=== PATIENT | female | born 1970 | race Hispanic/Latino ===

== ENCOUNTER 2019-02-18 10:31 | Inpatient (IN) | payer MEDICARE ==
--- NOTE | 2019-02-18 11:09 | Emergency Department Report ---
HPI - General Chief Complaint: Recheck/Abnormal Lab/Rx Time Seen by Provider: 02/18/19 10:57 - HPI HPI: Room 3 The patient is a 48-year-old female presenting with a chief complaint of needs dialysis. The patient is a resident at [facility] reportedly received dialysis every Friday. The patient was last dialyzed 02/15/2019 was sent to the ED for evaluation. Patient denies complaints stating she came to the emergency department because the shelter sent her here. The patient is frequently falling asleep during the interview. When asked about this the patient states that nothing is making her sleepy she is just tired Location: [See above] Duration: [See above] Quality: [See above] Severity: [See above] Timing: [See above] Context: [See above] Modifying factors: [See above] Associated signs and symptoms: [see above] ED Past Medical Hx - Past Medical History Hx Diabetes: Yes Hx Renal Disease: Yes Additional medical history: anemia, hemaplegia - Surgical History Past Surgical History?: No - Family History Family history: no significant - Social History Smoking Status: Former Smoker (none 7 years) Substance Use Type: None ED Review of Systems ROS: Stated complaint: NEED DIALYSIS Other details as noted in HPI Constitutional: no symptoms reported Eyes: denies: eye pain ENT: denies: throat pain Respiratory: no symptoms reported Cardiovascular: denies: chest pain Endocrine: no symptoms reported Gastrointestinal: denies: abdominal pain Genitourinary: denies: abnormal menses Musculoskeletal: denies: back pain Neurological: denies: headache Physical Exam - Physical Exam Vital Signs: Vital Signs 02/18/19 10:37 Temperature 98.6 F Pulse Rate 86 Respiratory 16 Rate Blood Pressure 123/52 [Left] O2 Sat by Pulse 95 Oximetry Physical Exam: GENERAL: The patient is well-developed well-nourished female lying on stretcher sleeping not appearing to be in acute distress. [] HEENT: Normocephalic. Atraumatic. Extraocular motions are intact. Patient has moist mucous membranes. NECK: Supple. Trachea midline CHEST/LUNGS: Clear to auscultation. There is no respiratory distress noted. HEART/CARDIOVASCULAR: Regular. There is no tachycardia. There is no gallop rub or murmur. ABDOMEN: Abdomen is soft, nontender. Patient has normal bowel sounds. There is no abdominal distention. SKIN: There is no rash. There is no edema. There is no diaphoresis. NEURO: The patient is asleep but awakens to verbal stimuli. Patient frequently falls back asleep during the interview requiring reawakening. The patient is cooperative. The patient has no focal neurologic deficits. The patient has normal speech MUSCULOSKELETAL: There is no evidence of acute injury. ED Course Vital Signs 02/18/19 10:37 Temperature 98.6 F Pulse Rate 86 Respiratory 16 Rate Blood Pressure 123/52 [Left] O2 Sat by Pulse 95 Oximetry - Consultations Consultation #1: 02/18/19 12:45 The patient does not know the name of her associate account manager. The patient's shelter states they see labs from the dialysis center ordered under a Dr. Madrid. I contacted the patient's dialysis center ([phone]) but was directed to voicemail. Subsequently the on-call associate account manager (Dr. Ordaz) was called ED Medical Decision Making - Lab Data Result diagrams: 02/18/19 10:45 02/18/19 10:45 Laboratory Tests 02/18/19 02/18/19 02/18/19 05:27 10:45 10:45 WBC 16.4 H RBC 3.47 L Hgb 8.8 L Hct 28.5 L MCV 82 MCH 25 L MCHC 31 RDW 18.0 H Plt Count 536 H PT 14.0 INR 1.11 APTT 32.4 Sodium 142 Potassium 4.5 Chloride 105.2 Carbon Dioxide 21 L Anion Gap 20 BUN 69 H Creatinine 6.7 H Estimated GFR 7 BUN/Creatinine Ratio 10 Glucose 282 H Calcium 7.9 L Total Bilirubin 0.20 AST 28 ALT 45 Alkaline Phosphatase 766 H NT-Pro-B Natriuret Pep 7983 H Total Protein 7.6 Albumin 3.4 L Albumin/Globulin Ratio 0.8 - Differential Diagnosis hyperkalemia, uremia Critical care attestation.: If time is entered above; I have spent that time in minutes in the direct care of this critically ill patient, excluding procedure time. ED Disposition Clinical Impression: End-stage renal disease needing dialysis Disposition: OP ADMIT IP TO THIS HOSP Is pt being admited?: Yes Does the pt Need Aspirin: No Condition: Fair Time of Disposition: 12:47 (hospitalist paged (Dr Anton))
[2019-02-18 11:27] LABS: Hematocrit 28.5 % (30.3-42.9); Hemoglobin 8.8 gm/dl (10.1-14.3); Mean Corpuscular HGB Conc 31 % (30-34); Mean Corpuscular Volume 82 fl (79-97); Platelet Count 536 K/mm3 (140-440); Red Blood Count 3.47 M/mm3 (3.65-5.03)
[2019-02-18 12:12] LABS: INR 1.11 (0.87-1.13); Partial Thromboplastin Time 32.4 Sec. (24.2-36.6)
[2019-02-18 12:22] LABS: Albumin 3.4 g/dL (3.9-5); Calcium 7.9 mg/dL (8.4-10.2)
--- NOTE | 2019-02-18 14:48 | Consultation ---
History of Present Illness - Reason for Consult Consult date: 02/18/19 end stage renal disease - History of Present Illness This is a 48 year female who resides at [facility] who presented to the E.R for dialysis. Patient has ESRD and is on hemodialysis at [facility] under Dr. Madrid. Patient was last dialyzed on Friday. Patient seen in dialysis unit and states she does not know why she is here. Patient has history of Hypertension and Diabetes Mellitus and possible PVD, she is a bilateral amputee. We are being consulted for management of this patient's ESRD. Past History Past Medical History: anemia, diabetes, hypertension Past Surgical History: Other (Bilateral BKA, Perm-catheter placement) Social history: no significant social history Family history: no significant family history Medications and Allergies Allergies Allergy/AdvReac Type Severity Reaction Status Date / Time latex Allergy Rash Verified 02/18/19 13:20 Review of Systems Constitutional: fatigue, no weight loss, no weight gain, no fever, no chills, no sweats, no malaise, no lethargy, no chronic headaches, no poor appetite Ears, nose, mouth and throat: no ear pain, no ear discharge, no tinnitis, no decreased hearing, no nose pain, no nasal congestion, no nasal discharge, no sinus pressure Breasts: deferred Cardiovascular: no chest pain, no orthopnea, no palpitations, no rapid/irregular heart beat, no edema, no syncope, no lightheadedness Respiratory: no cough, no cough with sputum, no shortness of breath, no dyspnea on exertion Gastrointestinal: no abdominal pain, no nausea, no vomiting, no diarrhea, no constipation, no change in bowel habits, no hematemesis, no coffee ground emesis Genitourinary Female: no pelvic pain, no flank pain, no dysuria Rectal: no pain, no incontinence, no bleeding, no itching, no hemorrhoids Musculoskeletal: no neck stiffness, no neck pain, no shooting arm pain, no arm numbness/tingling, no low back pain, no shooting leg pain Integumentary: no rash, no pruritis, no redness, no sores, no wounds, no jaundice Neurological: no head injury, no transient paralysis, no paralysis, no weakness, no parathesias, no numbness, no tingling, no seizures, no syncope, no tremors, no ataxia, no lack of coordination Psychiatric: no anxiety, no memory loss, no change in sleep habits, no sleep disturbances, no insomnia, no hypersomnia, no change in appetite Endocrine: no cold intolerance, no heat intolerance, no polyphagia, no excessive thirst, no polydipsia, no polyuria, no nocturia Exam - Vital Signs Vital signs: Vital Signs Temp Pulse Resp BP Pulse Ox 98.6 F 86 16 123/52 95 02/18/19 10:37 02/18/19 10:37 02/18/19 10:37 02/18/19 10:37 02/18/19 10:37 - General Appearance General appearance: well-developed, obese, fatigue EENT: ATNC, hearing intact Neck: Present: neck supple Respiratory: Decreased Breath Sounds Heart: regular, S1S2 Gastrointestinal: Present: normoactive bowel sounds Integumentary: warm and dry Neurologic: alert and oriented x3 Musculoskeletal: Present: joint swelling, other (Has gauze dressing to right stump and has left BKA as well) Results - Lab Results 02/18/19 10:45 02/18/19 10:45 Most recent lab results Calcium 7.9 mg/dL (8.4-10.2) L 02/18/19 10:45 Assessment and Plan End Stage Renal Disease on Hemodialysis: -Hemodialysis today for UF and clearance -Fluid restriction of 1 liter per day -Renal diet -Obtain daily weights -Monitor I/O's -Assess dialysis needs daily Hypertension: -Reconcile home BP medications -Monitor blood pressures Anemia in ESRD: -Epogen as needed -Monitor H/H Diabetes Mellitus: -As per primary team
[2019-02-18] MEDS ORDERED: SODIUM CHLORIDE*PRIMING MACHINE ONLY FOR DIALYSIS MC ONE (16:42)
[2019-02-18] MEDS ORDERED: COLACE 100 MG PO PRN (23:24)
[2019-02-18] MEDS ORDERED: ALBUTEROL INHALATION PRN (23:24)
[2019-02-18] MEDS ORDERED: SENNA PO PRN (23:26)
[2019-02-18] MEDS ORDERED: HYDROmorphone 1 MG/1 ML INJ IV PRN (23:28)
[2019-02-18] MEDS ORDERED: ACETAMINOPHEN 325 MG TAB PO PRN (23:28)
[2019-02-18] MEDS ORDERED: ONDANSETRON 4 MG/2 ML INJ IV PRN (23:28)
[2019-02-18] MEDS ORDERED: ALBUTEROL 2.5 MG/3 ML NEBU IH PRN (23:28)
[2019-02-18] MEDS ORDERED: LYRICA 75 MG PO SCH (23:30)
[2019-02-18] MEDS ORDERED: NON-FORMULARY EACH (Carvedilol 6.25 MG) PO SCH (23:30)
--- NOTE | 2019-02-18 23:33 | Event Note ---
Date: 02/18/19 See Historyand physical in the reports Volume overload Hypertension End-stage renal disease
[2019-02-18] MEDS ORDERED: SENNOSIDES 8.6 MG TAB PO PRN (23:34)
[2019-02-18] MEDS ORDERED: DOCUSATE SODIUM 100 MG CAP PO PRN (23:34)
--- NOTE | 2019-02-18 23:52 | History and Physical Report ---
CHIEF COMPLAINT: Missed dialysis. HISTORY OF PRESENT ILLNESS: A 48-year-old female resident of [facility] sent to the Emergency Room for missed dialysis. Shortness of breath and orthopnea present. No chest pain. No diaphoresis. No recent travel. PAST MEDICAL HISTORY: Significant for anemia, diabetes, hypertension, end-stage renal disease. PAST SURGICAL HISTORY: Bilateral BKA and Perm-A-Cath placement. SOCIAL HISTORY: No significant social history. FAMILY HISTORY: Hypertension. CURRENT MEDICATIONS: On the chart. REVIEW OF SYSTEMS: Significant for bilateral BKA and shortness of breath and orthopnea present. Otherwise, review of systems negative. PHYSICAL EXAMINATION: GENERAL: Middle-aged female, cooperative during examination. VITAL SIGNS: Blood pressure is 120/65, temperature is 98, pulse is 86 and respirations are 20. HEENT: Unremarkable. Pupils are equal and reactive. NECK: Supple, no lymphadenopathy, no thyromegaly. LUNGS: Clear to auscultation and percussion. Good air entry. CARDIOVASCULAR: S1, S2 heard. No gallop, no murmur, no rub. Apical impulse in left fifth intercostal space and midclavicular line. ABDOMEN: Soft and benign. No hepatosplenomegaly. No guarding, no rigidity. Hernial orifices are normal. EXTREMITIES: Bilateral BKA present, otherwise normal. CENTRAL NERVOUS SYSTEM: Alert and oriented x 4, nonfocal exam. LABORATORY DATA: White count is 16,400, H and H is 8.8 and 28.5, platelet count is 536,000. BUN and creatinine is 69 and 6.7, potassium is 4.5. BNP is 7983. No chest x-ray or EKG on the chart. ASSESSMENT AND PLAN: 1. End-stage renal disease, needing hemodialysis. The patient sent for emergent hemodialysis. Nephrology consulted. Volume overload, the patient to go to hemodialysis. 2. Hypertension. Continue antihypertensives. 3. Anemia. Epogen, if necessary. 4. Type 2 diabetes. Continue oral hypoglycemics and also insulin coverage. 4. Chronic pain. Continue oxycodone. 5. Gastroesophageal reflux disease. Continue Nexium 40 mg once a day. 6. Peripheral neuropathy. Continue gabapentin 300 mg at nighttime. 7. Depression. Continue Effexor 150 daily. 8. Allergic rhinitis. Continue Zyrtec. 9. Deep venous thrombosis prophylaxis, heparin 5000 q. 12 hours and gastrointestinal prophylaxis. The patient already is on Nexium. JOB# [id number] JOSE ANGELM/COLE MTDD
[2019-02-18] MEDS: PREGABALIN 75 MG CAP PO SCH (23:55)
[2019-02-18] MEDS: HEPARIN 5,000 UNIT/1 ML VIAL SUB-Q SCH (23:55)
[2019-02-19] MEDS ORDERED: ALBUTEROL 2.5 MG/3 ML NEBU IH SCH
[2019-02-19] MEDS: carvediloL 6.25 MG TAB PO SCH ×2 (00:02→10:56)
[2019-02-19] MEDS: oxyCODONE /ACETAMINOPHEN 5-325MG TAB PO PRN ×2 (00:06→11:19)
[2019-02-19 06:13] LABS: Hematocrit 26.6 % (30.3-42.9); Hemoglobin 8.4 gm/dl (10.1-14.3); Mean Corpuscular HGB Conc 32 % (30-34); Mean Corpuscular Volume 81 fl (79-97); Platelet Count 513 K/mm3 (140-440); Red Blood Count 3.29 M/mm3 (3.65-5.03)
[2019-02-19 06:30] LABS: Calcium 7.9 mg/dL (8.4-10.2)
[2019-02-19] MEDS ORDERED: NON-FORMULARY EACH (Venlafaxine Hcl [Venlafaxine Hcl Er] 150 MG) PO SCH (08:00)
[2019-02-19] MEDS ORDERED: VENLAFAXINE XR 75 MG CAP PO SCH (08:00)
[2019-02-19] MEDS ORDERED: ESOMEPRAZOLE MAGNESIUM 40 MG PO SCH (08:00)
[2019-02-19] MEDS ORDERED: NON-FORMULARY EACH (Calcium Acetate 667 MG) PO SCH (08:00)
[2019-02-19] MEDS ORDERED: PANTOPRAZOLE 40 MG TAB PO SCH (08:00)
--- NOTE | 2019-02-19 08:48 | XRay Report ---
CHEST 1 VIEW INDICATION: leukocytosis. COMPARISON: None FINDINGS: Support devices: Right IJ catheter tip projects at the cavoatrial junction. Heart: Within normal limits. Lungs/Pleura: No acute air space or interstitial disease. No pneumothorax. Additional findings: None. IMPRESSION: 1. Right IJ catheter in satisfactory position. Clear lungs. Signer Name: John Joyner MD Signed: 02/19/2019 8:43 AM Workstation Name: [id number]
[2019-02-19] MEDS: CALCIUM ACETATE 667 MG CAP PO SCH ×3 (09:00→16:58)
[2019-02-19] MEDS ORDERED: NON-FORMULARY EACH (Losartan Potassium 50 MG) PO SCH (10:00)
[2019-02-19] MEDS ORDERED: VITAMIN C 250 MG PO SCH (10:00)
[2019-02-19] MEDS ORDERED: ARIPiprazole 10 MG TAB PO SCH (10:00)
[2019-02-19] MEDS ORDERED: LOSARTAN 50 MG TAB PO SCH (10:00)
[2019-02-19] MEDS ORDERED: ZYRTEC 10 MG PO SCH (10:00)
[2019-02-19] MEDS ORDERED: ASCORBIC ACID 250 MG TAB PO SCH (10:00)
[2019-02-19] MEDS ORDERED: ARIPIPRAZOLE 5 MG PO SCH (10:00)
[2019-02-19] MEDS ORDERED: LORATADINE (NF) 10 MG TAB PO SCH (10:00)
[2019-02-19] MEDS: INSULIN LISPRO 100 UNIT/ML SUB-Q SCH ×3 (10:17→16:59)
[2019-02-19 10:35] LABS: Basophils % (Manual) 0 % (0.0-1.8); Total Cells Counted 100
[2019-02-19 10:43] LABS: Anisocytosis Few; Ovalocytes Few; Platelet Estimate Consistent w Auto; Stomatocytes Few
--- NOTE | 2019-02-19 10:53 | Discharge Summary ---
Providers - Providers Date of Admission: 02/18/19 12:49 Date of discharge: 02/21/19 Attending physician: ROLA BAUMAN MD 02/18/19 12:44 Consult to Physician [CONS] Urgent Comment: Consulting Provider: DORIAN MULLEN Physician Instructions: Reason For Exam: ESRD Primary care physician: TARIQ LARKIN Hospitalization Reason for admission: Came for dialysis Condition: Stable Hospital course: Patient went sent from rehabilitation on hemodialysis. She didn't have any complaints. Nephrology was consulted and dialyzed her. Patient discharged back to her facility. Patient was hemodynamically stable at the time of discharge. Patient doesn't need to be on contact isolation if her isolation was for c.diff. patient didn't have any diarrhea for many days. Disposition: [id number] Time spent for discharge: 34 minutes - Discharge Diagnoses (1) End-stage renal disease needing dialysis Status: Acute Core Measure Documentation - Palliative Care Palliative Care/ Comfort Measures: Not Applicable - Core Measures Any of the following diagnoses?: none Exam - Physical Exam Narrative exam: Not in cardiopulmonary distress. The patient appeared well nourished and normally developed. Vital signs as documented. Head exam is unremarkable. No scleral icterus . Neck is without jugular venous distension, thyromegaly, or carotid bruits. Lungs are clear to auscultation. Cardiac exam reveals regular rate and Rhythm. First and second heart sounds normal. No murmurs, rubs or gallops. Abdominal exam reveals normal bowel sounds, no masses, no organomegaly and no aortic enlargement. Extremities bilateral BKA. STAFFING RN: Alert and oriented 3. No focal weakness. - Constitutional Vitals: Temp Pulse Resp BP Pulse Ox 97.7 F 82 18 114/57 99 02/19/19 05:31 02/19/19 05:31 02/19/19 05:31 02/19/19 05:31 02/19/19 05:31 Plan Activity: no restrictions Weight Bearing Status: Full Weight Bearing Diet: low salt, renal Follow up with: TARIQ LARKIN MD [Primary Care Provider] - 7 Days
[2019-02-19] MEDS: HEPARIN 5,000 UNIT/1 ML VIAL SUB-Q SCH (10:57)
[2019-02-19] MEDS: PREGABALIN 75 MG CAP PO SCH (11:21)
--- NOTE | 2019-02-19 11:41 | Progress Note ---
Assessment and Plan End Stage Renal Disease on Hemodialysis: -HD again today for clearance and volume removal - can be discharged from renal standpoint post HD -Fluid restriction of 1 liter per day -Renal diet -Obtain daily weights -Monitor I/O's -Assess dialysis needs daily Hypertension: -Reconcile home BP medications -Monitor blood pressures Anemia in ESRD: -Epogen as needed -Monitor H/H Diabetes Mellitus: -As per primary team Subjective Date of service: 02/19/19 Principal diagnosis: ESRD Interval history: tolerated HD well yesterday Objective - Vital Signs Vital signs: Vital Signs - 12hr 02/18/19 02/18/19 02/18/19 23:44 23:55 23:59 Temperature 98.0 F Pulse Rate 89 Pulse Rate [ 89 Anterior Bilateral Throughout] Respiratory 20 Rate Respiratory 18 Rate [Anterior Bilateral Throughout] Blood Pressure 155/85 O2 Sat by Pulse 100 98 Oximetry 02/19/19 02/19/19 02/19/19 00:02 05:31 10:56 Temperature 97.7 F Pulse Rate 89 82 82 Pulse Rate [ Anterior Bilateral Throughout] Respiratory 18 Rate Respiratory Rate [Anterior Bilateral Throughout] Blood Pressure 155/85 114/57 112/58 O2 Sat by Pulse 99 Oximetry - General Appearance General appearance: well-developed, well-nourished, appears stated age EENT: ATNC, PERRL, mucous membranes moist Neck: no JVD, no carotid bruit Respiratory: Present: Clear to Ascultation Cardiology: regular, S1S2 Gastrointestinal: normoactive bowel sounds Integumentary: no rash, warm and dry Neurologic: no focal deficit, no asterixis, alert and oriented x3 Musculoskeletal: other (BLE BKA) Psychiatric: mood/affect appropriate, cooperative - Lab 02/19/19 05:34 02/19/19 05:34 Most recent lab results Calcium 7.9 mg/dL (8.4-10.2) L 02/19/19 05:34 Phosphorus 4.40 mg/dL (2.5-4.5) 02/19/19 05:34 Medications & Allergies - Medications Allergies/Adverse Reactions: Allergies latex Allergy (Verified 02/18/19 13:20) Rash Home Medications: Home Medications Medication Instructions Recorded Confirmed Last Taken Type ALBUTEROL NEB's 2.5 mg INHALATION Q4H PRN 02/18/19 02/18/19 02/17/19 History Aripiprazole 5 mg PO DAILY 02/18/19 02/18/19 02/17/19 History Benadryl CAP 25 mg PO Q8H PRN 02/18/19 02/18/19 02/17/19 History Calcium Acetate 667 mg PO TIDWM 02/18/19 02/18/19 02/17/19 History Carvedilol 6.25 mg PO Q12H 02/18/19 02/18/19 02/17/19 History Colace CAP 100 mg PO Q12H PRN 02/18/19 02/18/19 02/17/19 History Esomeprazole Magnesium 40 mg PO QDAC 02/18/19 02/18/19 02/17/19 History Gabapentin 300 mg PO QHS 02/18/19 02/18/19 02/17/19 History Hemocyte Plus 1 cap PO DAILY 02/18/19 02/18/19 02/17/19 History HumaLOG 10 units SUB-Q TIDWM 02/18/19 02/18/19 02/17/19 History HumaLOG 100 units SC ACHS 02/18/19 02/18/19 02/17/19 History Insulin Detemir [Levemir Flextouch] 23 unit SQ QHS 02/18/19 02/18/19 02/17/19 History Losartan Potassium 50 mg PO DAILY 02/18/19 02/18/19 02/17/19 History Lyrica 75 mg PO Q12H 02/18/19 02/18/19 02/17/19 History Maalox Advanced Suspension 30 ml PO Q6H PRN 02/18/19 02/18/19 02/17/19 History Melatonin 6 mg PO QHS 02/18/19 02/18/19 02/17/19 History Promethazine [Phenergan] 25 mg PO Q6H PRN 02/18/19 02/18/19 02/17/19 History Senna 17.2 mg PO QHS PRN 02/18/19 02/18/19 02/17/19 History Venlafaxine HCl [Venlafaxine HCl 150 mg PO QDAC 02/18/19 02/18/19 02/17/19 History ER] Vitamin C 250 mg PO DAILY 02/18/19 02/18/19 02/17/19 History ZyrTEC 10mg cap 10 mg PO DAILY 02/18/19 02/18/19 02/17/19 History oxyCODONE 5 mg PO Q6H PRN 02/18/19 02/18/19 02/17/19 History Active Medications: Generic Name Dose Route Start Last Admin Trade Name Freq PRN Reason Stop Dose Admin Acetaminophen 650 mg 02/18/19 23:28 Tylenol PO Q4H PRN Pain MILD(1-3)/Fever >100.5/DANIEL Albuterol 2.5 mg 02/18/19 23:28 02/18/19 23:40 Proventil IH 2.5 mg Q4HRT PRN Administration Wheezing Aripiprazole 5 mg 02/19/19 10:00 02/19/19 11:20 Abilify PO 5 mg DAILY NOEL Administration Ascorbic Acid 250 mg 02/19/19 10:00 02/19/19 11:19 Vitamin C PO 250 mg DAILY NOEL Administration Calcium Acetate 667 mg 02/19/19 08:00 02/19/19 09:00 Phoslo PO Not Given TIDWM [facility] Carvedilol 6.25 mg 02/18/19 23:30 02/19/19 10:56 Coreg PO Not Given Q12HR [facility] Docusate Sodium 100 mg 02/18/19 23:34 Colace PO Q12HR PRN Constipation Gabapentin 300 mg 02/19/19 22:00 Neurontin PO QHS [facility] Heparin Sodium (Porcine) 5,000 unit 02/18/19 23:45 02/19/19 10:57 Heparin SUB-Q Not Given Q12HR [facility] Hydromorphone HCl 0.5 mg 02/18/19 23:28 Dilaudid IV Q3H PRN Pain , Severe (7-10) Insulin Glargine 23 units 02/19/19 22:00 Lantus SUB-Q QHS [facility] Insulin Human Lispro 0 unit 02/19/19 07:30 02/19/19 10:17 Humalog SUB-Q 3 unit ACHS [facility] Administration Protocol Loratadine 10 mg 02/19/19 10:00 02/19/19 11:21 Claritin PO 10 mg DAILY NOEL Administration Losartan Potassium 50 mg 02/19/19 10:00 02/19/19 10:57 Cozaar PO Not Given DAILY [facility] Melatonin 5 mg 02/19/19 22:00 Melatonin PO QHS NOEL Ondansetron HCl 4 mg 02/18/19 23:28 Zofran IV Q8H PRN Nausea And Vomiting Oxycodone/Acetaminophen 1 tab 02/18/19 23:28 02/19/19 11:19 Percocet 5/325 PO 1 tab Q6H PRN Administration Pain, Moderate (4-6) Pantoprazole Sodium 40 mg 02/19/19 08:00 02/19/19 11:21 Protonix PO 40 mg QDAY@0800 NOEL Administration Pregabalin 75 mg 02/18/19 23:30 02/19/19 11:21 Pregabalin PO 75 mg Q12HR NOEL Administration Senna 17.2 mg 02/18/19 23:34 Senokot PO QHS PRN Constipation Sodium Chloride 10 ml 02/19/19 10:00 02/19/19 11:19 Sodium Chloride Flush Syringe 10 Ml IV 10 ml BID NOEL Administration Sodium Chloride 10 ml 02/18/19 23:28 Sodium Chloride Flush Syringe 10 Ml IV PRN PRN LINE FLUSH Venlafaxine HCl 150 mg 02/19/19 08:00 02/19/19 11:19 Effexor Xr PO 150 mg QDAY@0800 NOEL Administration
[2019-02-19] MEDS ORDERED: SODIUM CHLORIDE*PRIMING MACHINE ONLY FOR DIALYSIS MC ONE (15:32)
[2019-02-19 17:57] VITALS: BP 149/59
[2019-02-19 18:42] LABS: Hepatitis B Surface Antigen Non-Reactive (Negative); Hepatitis C Virus Antibody Reactive (NonReactive)
[2019-02-19] MEDS ORDERED: NON-FORMULARY EACH (Gabapentin 300 MG) PO SCH (22:00)
[2019-02-19] MEDS ORDERED: GABAPENTIN 300 MG CAP PO SCH (22:00)
[2019-02-19] MEDS ORDERED: INSULIN GLARGINE 100 UNITS/ML SUB-Q SCH (22:00)
[2019-02-19] MEDS ORDERED: MELATONIN 6 MG PO SCH (22:00)
[2019-02-19] MEDS ORDERED: MELATONIN 5 MG TAB PO SCH (22:00)
[2019-02-19] MEDS ORDERED: INSULIN DETEMIR 23 UNIT SQ SCH (22:00)
== END 2019-02-19 18:00 | DRG 640 ==
LOC: ED 10:31 → 3A 12:49
PROVIDERS: ADMIT Internal Medicine; ATTEND Internal Medicine
PROC: 5A1D70Z Performance of Urinary Filtration, Intermittent, Less than 6 Hours Per Day (ICD-10-PCS; principal; 2019-02-18)
PROC: 5A1D70Z Performance of Urinary Filtration, Intermittent, Less than 6 Hours Per Day (ICD-10-PCS; 2019-02-19)
DX: E87.70 Fluid overload, unspecified (principal); N18.6 End stage renal disease; I12.0 Hypertensive chronic kidney disease with stage 5 chronic kidney disease or end stage renal disease; E11.22 Type 2 diabetes mellitus with diabetic chronic kidney disease; K21.9 Gastro-esophageal reflux disease without esophagitis; G89.29 Other chronic pain; F32.9 Major depressive disorder, single episode, unspecified; J30.9 Allergic rhinitis, unspecified; D63.1 Anemia in chronic kidney disease; Z87.891 Personal history of nicotine dependence; Z89.512 Acquired absence of left leg below knee; Z89.511 Acquired absence of right leg below knee; Z91.040 Latex allergy status; Z99.2 Dependence on renal dialysis; Z91.15 Patient's noncompliance with renal dialysis; Z79.4 Long term (current) use of insulin
CPT/HCPCS: 36415; 71045; 80048; 80053; 80074; 82962; 83036; 83880; 84100; 85007; 85025; 85027; 85610; 85730; 94640; 94760; 96374; G0378; J1644; J1815; J7030

== ENCOUNTER 2020-04-06 13:05 | Inpatient (IN) | payer MEDICARE ==
[2020-04-06] MEDS ORDERED: MINERAL OIL/PETROLATUM, WHITE OPHTH OINT 3.5 GM OU PRN (13:34)
[2020-04-06] MEDS ORDERED: cefTRIAXone/NS 2 GM/100 ML 2 GM/100 ML BAG IV ONE (13:34)
[2020-04-06] MEDS ORDERED: dexAMETHasone 20 MG/5 ML VIAL IV ONE (13:34)
[2020-04-06] MEDS ORDERED: LIP THERAPY VASELINE TP PRN (13:34)
[2020-04-06] MEDS ORDERED: VANCOMYCIN 2,000 MG in SODIUM CHLORIDE 0.9% 500 ML 500 ML IV ONE (13:34)
[2020-04-06] MEDS ORDERED: fentaNYL 100 MCG/2 ML INJ IV PRN (13:34)
--- NOTE | 2020-04-06 13:37 | Emergency Department Report ---
ED General Adult HPI - General Chief complaint: Altered Mental Status Stated complaint: AMS PUI?: No Time Seen by Provider: 04/06/20 13:14 Source: EMS (Verbal report received from emergency medical services. EMS documentation not available at time of chart dictation ), RN notes reviewed, old records reviewed Mode of arrival: Stretcher Limitations: Altered Mental Status, Physical Limitation - History of Present Illness Initial comments: The patient was evaluated in the emergency department for symptoms described in the history of present illness. He/she was evaluated in the context of the global COVID-19 pandemic, which necessitated consideration that the patient might be at risk for infection with the virus that causes COVID-19. Institutional protocols and algorithms that pertain to the evaluation of patients at risk for COVID-19 are in a state of rapid change based on information released by regulatory bodies including the CDC and federal and state organizations. These policies and algorithms were followed during the patient's care in the emergency department. Please note that these policies, procedures and recommendations changed on a rapid basis. Nephrology: Dr. Reyes this Is a 49-year-old female. I have evaluated this patient in the past. The patient has a past medical history of morbid obesity, end-stage renal disease on hemodialysis, bilateral lower extremity below-knee amputations. Patient admitted to this hospital December 2019 for altered mental status. She was found to have Covid at that time. Discharge diagnosis was acute metabolic encephalopathy, sepsis secondary to COVID-19, metabolic acidosis, hyperkalemia, hypertension, diabetes Today, the patient is brought to the hospital by emergency medical services, after being sent to dialysis from her home longterm. Apparently, the patient was sent to her home dialysis facility, was found to be altered and obtunded, last known well time is not explicitly known, and thus emergency medical services were activated. EMS reports the patient may have been hypotensive in the field, but had normal Accu-Chek. Patient is altered, not accompanied by friends or family at this time, therefore, last known well time is not explicitly known, and she is not able to describe qualitative nature of her symptoms, exacerbating factors, relieving factors, or aggravating factors. Upon my initial arrival, the patient was somnolent, obtunded, hypoxic, without a gag reflex. She was placed on supplemental oxygen, received [id number] ventilation, was induced with 200 mg of ketamine, paralyzed with 100 mg of rocuronium, and intubated using video laryngoscopy, with a 7.5 endotracheal tube, curved 4 Mariel fiberoptic blade, with no difficulty or complications. Post intubation, patient found to have a rectal temperature of 94 degrees, Bains catheter placed and pure purulent material was obtained from the Bains catheter. Patient started on appropriate antibiotic therapy, discussed patient's history and physical with critical care on-call, and nephrology on-call, Dr. Gutierrez, and James Henriquez, respectively. They agree to follow the patient in consultation, with plan to admit patient to the intensive care unit. Patient has been somewhat persistently hypertensive, she is about to receive 10 mg of labetalol, for second dose. If Still persistently hypertensive, will consider initiating Cardene therapy. CT scan of the brain is pending at this time. Elevated troponin is likely a type II troponin leak. Patient meets criteria for hospitalization secondary to altered mental status, obtundation, hypothermia, inability to protect airway, requiring critical care level of triage. -: unknown Radiation: other Quality: other Consistency: other Improves with: other Worsens with: other Associated Symptoms: other Treatments Prior to Arrival: other - Related Data Home Medications Medication Instructions Recorded Confirmed Last Taken Aripiprazole 5 mg PO DAILY 02/18/19 01/08/20 02/17/19 Benadryl CAP 25 mg PO Q8H PRN 02/18/19 01/08/20 02/17/19 Calcium Acetate 667 mg PO TIDWM 02/18/19 01/08/20 02/17/19 Carvedilol 6.25 mg PO Q12H 02/18/19 01/08/20 02/17/19 Colace CAP 100 mg PO Q12H PRN 02/18/19 01/08/20 02/17/19 Esomeprazole Magnesium 40 mg PO QDAC 02/18/19 01/08/20 02/17/19 HumaLOG 10 units SUB-Q TIDWM 02/18/19 01/08/20 02/17/19 Insulin Detemir (Nf) [Levemir See Protocol SQ QHS 02/18/19 01/08/20 02/17/19 Flextouch (Nf)] Losartan Potassium 50 mg PO DAILY 02/18/19 01/08/20 02/17/19 Lyrica 75 mg PO Q12H 02/18/19 01/08/20 02/17/19 Melatonin 6 mg PO QHS 02/18/19 01/08/20 02/17/19 Senna 17.2 mg PO QHS PRN 02/18/19 01/08/20 02/17/19 Venlafaxine HCl [Venlafaxine HCl 150 mg PO QDAC 02/18/19 01/08/20 02/17/19 ER] Vitamin C 250 mg PO DAILY 02/18/19 01/08/20 02/17/19 ZyrTEC 10mg cap 10 mg PO DAILY 02/18/19 01/08/20 02/17/19 Previous Rx's Medication Instructions Recorded Last Taken Type Calcium Acetate [Phoslo] 667 mg PO TIDWM capsule 12/22/19 Unknown Rx Fe Fumarate/FA/Mv, Min Comb#15 1 each PO QDAY capsule 12/22/19 Unknown Rx [Hemocyte Plus] Albuterol Mdi (or & Nicu Only) 2.5 puff IH Q4HRT PRN inha 01/12/20 Unknown Rx [ProAir HFA Inhaler] dexAMETHasone [Decadron] 6 mg PO Q12HR #10 tablet 01/12/20 Unknown Rx oxyCODONE 5 mg PO Q6H PRN #10 01/12/20 Unknown Rx Allergies Allergy/AdvReac Type Severity Reaction Status Date / Time carrot Allergy Hives Verified 07/28/19 12:30 erythromycin base Allergy Hives Verified 07/30/19 11:26 latex Allergy Rash Verified 02/18/19 13:20 peas Allergy Hives Verified 12/20/19 12:37 vancomycin Allergy Hives Verified 12/31/19 15:46 ED Review of Systems ROS: Stated complaint: AMS Other details as noted in HPI Comment: Unobtainable due to pts medical conditions ED Past Medical Hx - Past Medical History Hx Hypertension: Yes Hx CVA: Yes (left side weakness) Hx Heart Attack/AMI: No Hx Congestive Heart Failure: No Hx Diabetes: Yes Hx Renal Disease: Yes Hx Asthma: Yes Hx COPD: Yes Hx Tuberculosis: No Additional medical history: anemia, hemaplegia - Surgical History Additional Surgical History: double amputee below the ankles - Social History Smoking Status: Former Smoker - Medications Home Medications: Home Medications Medication Instructions Recorded Confirmed Last Taken Type Aripiprazole 5 mg PO DAILY 02/18/19 01/08/20 02/17/19 History Benadryl CAP 25 mg PO Q8H PRN 02/18/19 01/08/20 02/17/19 History Calcium Acetate 667 mg PO TIDWM 02/18/19 01/08/20 02/17/19 History Carvedilol 6.25 mg PO Q12H 02/18/19 01/08/20 02/17/19 History Colace CAP 100 mg PO Q12H PRN 02/18/19 01/08/20 02/17/19 History Esomeprazole Magnesium 40 mg PO QDAC 02/18/19 01/08/20 02/17/19 History HumaLOG 10 units SUB-Q TIDWM 02/18/19 01/08/20 02/17/19 History Insulin Detemir (Nf) [Levemir See Protocol SQ QHS 02/18/19 01/08/20 02/17/19 History Flextouch (Nf)] Losartan Potassium 50 mg PO DAILY 02/18/19 01/08/20 02/17/19 History Lyrica 75 mg PO Q12H 02/18/19 01/08/20 02/17/19 History Melatonin 6 mg PO QHS 02/18/19 01/08/20 02/17/19 History Senna 17.2 mg PO QHS PRN 02/18/19 01/08/20 02/17/19 History Venlafaxine HCl [Venlafaxine HCl 150 mg PO QDAC 02/18/19 01/08/20 02/17/19 History ER] Vitamin C 250 mg PO DAILY 02/18/19 01/08/20 02/17/19 History ZyrTEC 10mg cap 10 mg PO DAILY 02/18/19 01/08/20 02/17/19 History Calcium Acetate [Phoslo] 667 mg PO TIDWM capsule 12/22/19 01/08/20 Unknown Rx Fe Fumarate/FA/Mv, Min Comb#15 1 each PO QDAY capsule 12/22/19 01/08/20 Unknown Rx [Hemocyte Plus] Albuterol Mdi (or & Nicu Only) 2.5 puff IH Q4HRT PRN inha 01/12/20 Unknown Rx [ProAir HFA Inhaler] dexAMETHasone [Decadron] 6 mg PO Q12HR #10 tablet 01/12/20 Unknown Rx oxyCODONE 5 mg PO Q6H PRN #10 01/12/20 Unknown Rx ED Physical Exam - General Limitations: Altered Mental Status, Physical Limitation General appearance: obtunded - Head Head exam: Present: atraumatic, normocephalic - Eye Eye exam: Present: normal appearance, PERRL - ENT ENT exam: Present: mucous membranes dry, normal external ear exam - Neck Neck exam: Present: normal inspection. Absent: tenderness, meningismus - Respiratory Respiratory exam: Present: decreased breath sounds. Absent: respiratory distress, wheezes, rales, rhonchi, stridor - Cardiovascular Cardiovascular Exam: Present: regular rate, normal rhythm, normal heart sounds, other (There is a right-sided thoracic hemodialysis access catheter noted). Absent: bradycardia, tachycardia, irregular rhythm, systolic murmur, diastolic murmur, rubs, gallop - GI/Abdominal GI/Abdominal exam: Present: soft. Absent: distended, tenderness, guarding, rebound, rigid - Rectal Rectal exam: Present: other (Patient has chronic appearing rectal and sacral wounds). Absent: normal inspection - External exam: Present: other (White fungal lesions noted in the groin folds) - Extremities Exam Extremities exam: Present: normal inspection, other (1+ pulses noted in the bilateral upper and lower extremities. Bilateral below-knee amputations) - Back Exam Back exam: Present: normal inspection. Absent: tenderness, CVA tenderness (R), CVA tenderness (L), paraspinal tenderness, vertebral tenderness - Neurological Exam Neurological exam: Present: altered, other (Patient nonverbal. Does not have a gag reflex. Prior to intubation, noted to be moving her right upper extremity. Does not open eyes to command. Does not speak. Does not move arms to command. Detailed neurologic examination not possible secondary to altered mental status) - Skin Skin exam: Present: warm, rash ED Course Vital Signs 04/06/20 04/06/20 04/06/20 13:05 13:14 13:20 Temperature 94.1 F L Pulse Rate 66 66 95 H Respiratory 18 18 18 Rate Blood Pressure 132/111 Blood Pressure 131/111 [Left] O2 Sat by Pulse 87 85 Oximetry 04/06/20 04/06/20 04/06/20 13:40 14:00 14:31 Temperature Pulse Rate 83 87 83 Respiratory 13 18 20 Rate Blood Pressure 131/41 152/59 209/75 Blood Pressure [Left] O2 Sat by Pulse 100 100 100 Oximetry 04/06/20 04/06/20 04/06/20 14:55 15:01 15:26 Temperature Pulse Rate 83 82 70 Respiratory 20 Rate Blood Pressure 252/75 229/77 229/72 Blood Pressure [Left] O2 Sat by Pulse 100 100 Oximetry 04/06/20 04/06/20 04/06/20 15:31 16:20 16:31 Temperature Pulse Rate 78 Respiratory 21 15 21 Rate Blood Pressure 231/80 238/87 241/76 Blood Pressure [Left] O2 Sat by Pulse 99 100 99 Oximetry 04/06/20 04/06/20 04/06/20 17:01 17:31 18:01 Temperature Pulse Rate 77 86 77 Respiratory 14 18 20 Rate Blood Pressure 233/53 186/66 124/41 Blood Pressure [Left] O2 Sat by Pulse 99 100 99 Oximetry 04/06/20 18:31 Temperature Pulse Rate 74 Respiratory 20 Rate Blood Pressure 115/34 Blood Pressure [Left] O2 Sat by Pulse 100 Oximetry - Reevaluation(s) Reevaluation #1: 04/06/20 16:02 Differential diagnosis, including but not limited to: Bacteremia, viremia, pneumonia, urinary tract infection, metabolic acidosis, toxic encephalopathy, metabolic encephalopathy, intracranial lesion, hypertensive emergency Assessment and plan: 49-year-old female with altered mental status and hypothermia, requiring initiation of intubation and mechanical ventilation. Patient markedly hypertensive, in spite of multiple doses of labetalol. Patient demonstrating evidence of fluid overload, manifest by impressive hypertension, what appears to be pulmonary vascular congestion on x-ray the chest. Given this, it is my opinion that aggressive fluid resuscitation is contraindicated, and will be deleterious to the patient. Patient loaded with ceftriaxone, will initiate Cardene drip, and appropriate cultures will be sent. We will also initiate the patient on active patient rewarming. She had pure pus coming from her Bains catheter. Therefore, I think meningitis is unlikely. Critical care, nephrology on board, nephrology updated on patient's laboratory findings. Elevated troponin is likely a type II troponin leak, EKG is pending, I have made multiple requests to have the patient's EKG given to myself. Nursing team is aware. CT scan of the brain is pending, assuming no intracranial hemorrhage or finding that would require transfer to higher level of care, plan to admit this patient for respiratory failure, hypothermia, hypertensive urgency/emergency, metabolic acidosis, metabolic encephalopathy, and further inpatient management. 04/06/20 16:02 Reevaluation #2: 04/06/20 17:32 X-ray of the chest is reviewed and appreciated. Respiratory therapy to retract endotracheal tube Reevaluation #3: 04/06/20 19:59 CT scan of the brain is negative for acute findings. Hospital physician, Dr. Barnett to admit patient to the medical service. - Intubation Time Out Performed: No (Emergency situation) Sedative: Ketamine Mg Given: 200 Paralytic: Rocuronium Mg Given: 100 Laryngoscope: fiberoptic video scope Size: 4 ET Tube Size: 7.5 Tube Secured Depth (cm): 24 Tube Secured Location: lips Tube Placement Confirmation: visualized tube passing t, equal breath sounds bilat, no breath sounds over epi, confirmation by capnometr Patient Tolerated Procedure: well Intubation Complications: none ED Medical Decision Making - Lab Data Result diagrams: 04/06/20 14:30 04/06/20 14:30 Vital Signs 04/06/20 04/06/20 04/06/20 13:05 13:14 13:20 Temperature 94.1 F L Pulse Rate 66 66 95 H Respiratory 18 18 18 Rate Blood Pressure 132/111 Blood Pressure 131/111 [Left] O2 Sat by Pulse 87 85 Oximetry 04/06/20 04/06/20 04/06/20 13:40 14:00 14:55 Temperature Pulse Rate 83 87 83 Respiratory 13 18 Rate Blood Pressure 131/41 152/59 252/75 Blood Pressure [Left] O2 Sat by Pulse 100 100 Oximetry 04/06/20 15:26 Temperature Pulse Rate 70 Respiratory Rate Blood Pressure 229/72 Blood Pressure [Left] O2 Sat by Pulse 100 Oximetry Lab Results 04/06/20 04/06/20 04/06/20 Range/Units 13:34 14:30 14:30 WBC 19.2 H (4.5-11.0) K/mm3 RBC 3.79 (3.65-5.03) M/mm3 Hgb 10.9 (10.1-14.3) gm/dl Hct 35.0 (30.3-42.9) % MCV 92 (79-97) fl MCH 29 (28-32) pg MCHC 31 (30-34) % RDW 17.8 H (13.2-15.2) % Plt Count 425 (140-440) K/mm3 Add Manual Diff Complete Total Counted 100 Seg Neuts % (Manual) 90.0 H (40.0-70.0) % Band Neutrophils % 1.0 % Lymphocytes % (Manual) 4.0 L (13.4-35.0) % Reactive Lymphs % (Man) 0 % Monocytes % (Manual) 3.0 (0.0-7.3) % Eosinophils % (Manual) 2.0 (0.0-4.3) % Basophils % (Manual) 0 (0.0-1.8) % Metamyelocytes % 0 % Myelocytes % 0 % Promyelocytes % 0 % Blast Cells % 0 % Nucleated RBC % Not Reportable Seg Neutrophils # Man 17.3 H (1.8-7.7) K/mm3 Band Neutrophils # 0.2 K/mm3 Lymphocytes # (Manual) 0.8 L (1.2-5.4) K/mm3 Abs React Lymphs (Man) 0.0 K/mm3 Monocytes # (Manual) 0.6 (0.0-0.8) K/mm3 Eosinophils # (Manual) 0.4 (0.0-0.4) K/mm3 Basophils # (Manual) 0.0 (0.0-0.1) K/mm3 Metamyelocytes # 0.0 K/mm3 Myelocytes # 0.0 K/mm3 Promyelocytes # 0.0 K/mm3 Blast Cells # 0.0 K/mm3 WBC Morphology Not Reportable Hypersegmented Neuts Not Reportable Hyposegmented Neuts Not Reportable Hypogranular Neuts Not Reportable Smudge Cells Not Reportable Toxic Granulation Not Reportable Toxic Vacuolation Not Reportable Dohle Bodies Not Reportable Pelger-Huet Anomaly Not Reportable Stephanie Rods Not Reportable Platelet Estimate Consistent w auto Clumped Platelets Not Reportable Plt Clumps, EDTA Not Reportable Large Platelets Not Reportable Giant Platelets Not Reportable Platelet Satelliting Not Reportable Plt Morphology Comment Not Reportable RBC Morphology Not Reportable Dimorphic RBCs Not Reportable Polychromasia Not Reportable Hypochromasia Not Reportable Poikilocytosis Not Reportable Anisocytosis Few Microcytosis Not Reportable Macrocytosis Few Spherocytes Not Reportable Pappenheimer Bodies Not Reportable Sickle Cells Not Reportable Target Cells Not Reportable Tear Drop Cells Not Reportable Ovalocytes Not Reportable Helmet Cells Not Reportable [place] Bodies Not Reportable [place] Rings Not Reportable [place] Cells Not Reportable Bite Cells Not Reportable Crenated Cell Not Reportable Elliptocytes Not Reportable Acanthocytes (Spur) Not Reportable Rouleaux Not Reportable Hemoglobin C Crystals Not Reportable Schistocytes Not Reportable Malaria parasites Not Reportable Lc Bodies Not Reportable Hem Pathologist Commnt No PT 13.8 (12.2-14.9) Sec. INR 1.04 (0.87-1.13) APTT 28.1 (24.2-36.6) Sec. ABG pH (7.350-7.450) pH Units ABG pCO2 mm Hg ABG pO2 (80.0-90.0) mm Hg ABG HCO3 (20.0-26.0) mmol/L ABG O2 Saturation (95.0-99.0) % ABG O2 Content (0.0-44) ABG Base Excess (-2.0-3.0) mmol/L ABG Hemoglobin (12.0-16.0) gm/dl ABG Carboxyhemoglobin (0.0-5.0) % ABG Methemoglobin (0.0-1.5) % Oxyhemoglobin (95.0-99.0) % FiO2 % Sodium (137-145) mmol/L Potassium (3.6-5.0) mmol/L Chloride (98-107) mmol/L Carbon Dioxide (22-30) mmol/L Anion Gap mmol/L BUN (7-17) mg/dL Creatinine (0.6-1.2) mg/dL Estimated GFR ml/min BUN/Creatinine Ratio % Glucose (65-100) mg/dL Lactic Acid (0.7-2.0) mmol/L Calcium (8.4-10.2) mg/dL Magnesium (1.7-2.3) mg/dL Total Bilirubin (0.1-1.2) mg/dL AST (5-40) units/L ALT (7-56) units/L Alkaline Phosphatase (35-129) units/L Ammonia (25-60) umol/L Total Creatine Kinase (30-135) units/L Troponin T (0.00-0.029) ng/mL Total Protein (6.3-8.2) g/dL Albumin (3.9-5) g/dL Albumin/Globulin Ratio % Triglycerides (2-149) mg/dL Cholesterol (50-199) mg/dL LDL Cholesterol Direct (50-130) mg/dL HDL Cholesterol (40-59) mg/dL Cholesterol/HDL Ratio % TSH (0.270-4.200) mlU/mL Urine Color Yellow (Yellow) Urine Turbidity Turbid (Clear) Urine pH 7.0 (5.0-7.0) Ur Specific [place] 1.017 (1.003-1.030) Urine Protein 100 mg/dl (Negative) mg/dL Urine Glucose (UA) 50 (Negative) mg/dL Urine Ketones Tr (Negative) mg/dL Urine Blood Sm (Negative) Urine Nitrite Neg (Negative) Urine Bilirubin Neg (Negative) Urine Urobilinogen < 2.0 (<2.0) mg/dL Ur Leukocyte Esterase Mod (Negative) Urine WBC (Auto) > 182.0 H (0.0-6.0) /HPF Urine RBC (Auto) 49.0 (0.0-6.0) /HPF U Epithel Cells (Auto) 6.0 (0-13.0) /HPF Urine Bacteria (Auto) 2+ (Negative) /HPF Urine WBC Clumps 3+ /HPF Urine Mucus 3+ /HPF Salicylates (2.8-20.0) mg/dL Acetaminophen (10.0-30.0) ug/mL Plasma/Serum Alcohol (0-0.07) % Blood Type Antibody Screen 04/06/20 04/06/20 04/06/20 Range/Units 14:30 14:30 14:30 WBC (4.5-11.0) K/mm3 RBC (3.65-5.03) M/mm3 Hgb (10.1-14.3) gm/dl Hct (30.3-42.9) % MCV (79-97) fl MCH (28-32) pg MCHC (30-34) % RDW (13.2-15.2) % Plt Count (140-440) K/mm3 Add Manual Diff Total Counted Seg Neuts % (Manual) (40.0-70.0) % Band Neutrophils % % Lymphocytes % (Manual) (13.4-35.0) % Reactive Lymphs % (Man) % Monocytes % (Manual) (0.0-7.3) % Eosinophils % (Manual) (0.0-4.3) % Basophils % (Manual) (0.0-1.8) % Metamyelocytes % % Myelocytes % % Promyelocytes % % Blast Cells % % Nucleated RBC % Seg Neutrophils # Man (1.8-7.7) K/mm3 Band Neutrophils # K/mm3 Lymphocytes # (Manual) (1.2-5.4) K/mm3 Abs React Lymphs (Man) K/mm3 Monocytes # (Manual) (0.0-0.8) K/mm3 Eosinophils # (Manual) (0.0-0.4) K/mm3 Basophils # (Manual) (0.0-0.1) K/mm3 Metamyelocytes # K/mm3 Myelocytes # K/mm3 Promyelocytes # K/mm3 Blast Cells # K/mm3 WBC Morphology Hypersegmented Neuts Hyposegmented Neuts Hypogranular Neuts Smudge Cells Toxic Granulation Toxic Vacuolation Dohle Bodies Pelger-Huet Anomaly Stephanie Rods Platelet Estimate Clumped Platelets Plt Clumps, EDTA Large Platelets Giant Platelets Platelet Satelliting Plt Morphology Comment RBC Morphology Dimorphic RBCs Polychromasia Hypochromasia Poikilocytosis Anisocytosis Microcytosis Macrocytosis Spherocytes Pappenheimer Bodies Sickle Cells Target Cells Tear Drop Cells Ovalocytes Helmet Cells [place] Bodies [place] Rings Michael Cells Bite Cells Crenated Cell Elliptocytes Acanthocytes (Spur) Rouleaux Hemoglobin C Crystals Schistocytes Malaria parasites Lc Bodies Hem Pathologist Commnt PT (12.2-14.9) Sec. INR (0.87-1.13) APTT (24.2-36.6) Sec. ABG pH (7.350-7.450) pH Units ABG pCO2 mm Hg ABG pO2 (80.0-90.0) mm Hg ABG HCO3 (20.0-26.0) mmol/L ABG O2 Saturation (95.0-99.0) % ABG O2 Content (0.0-44) ABG Base Excess (-2.0-3.0) mmol/L ABG Hemoglobin (12.0-16.0) gm/dl ABG Carboxyhemoglobin (0.0-5.0) % ABG Methemoglobin (0.0-1.5) % Oxyhemoglobin (95.0-99.0) % FiO2 % Sodium 141 (137-145) mmol/L Potassium 5.2 H (3.6-5.0) mmol/L Chloride 103.7 (98-107) mmol/L Carbon Dioxide 17 L (22-30) mmol/L Anion Gap 26 mmol/L BUN 53 H (7-17) mg/dL Creatinine 7.8 H (0.6-1.2) mg/dL Estimated GFR 5 ml/min BUN/Creatinine Ratio 7 % Glucose 144 H (65-100) mg/dL Lactic Acid 1.00 (0.7-2.0) mmol/L Calcium 8.9 (8.4-10.2) mg/dL Magnesium (1.7-2.3) mg/dL Total Bilirubin 0.30 (0.1-1.2) mg/dL AST 39 (5-40) units/L ALT 21 (7-56) units/L Alkaline Phosphatase 738 H (35-129) units/L Ammonia 43.0 (25-60) umol/L Total Creatine Kinase 23 L (30-135) units/L Troponin T 0.224 H* (0.00-0.029) ng/mL Total Protein 8.1 (6.3-8.2) g/dL Albumin 3.1 L (3.9-5) g/dL Albumin/Globulin Ratio 0.6 % Triglycerides 342 H (2-149) mg/dL Cholesterol 223 H (50-199) mg/dL LDL Cholesterol Direct 123 (50-130) mg/dL HDL Cholesterol 35 L (40-59) mg/dL Cholesterol/HDL Ratio 6.37 % TSH (0.270-4.200) mlU/mL Urine Color (Yellow) Urine Turbidity (Clear) Urine pH (5.0-7.0) Ur Specific [place] (1.003-1.030) Urine Protein (Negative) mg/dL Urine Glucose (UA) (Negative) mg/dL Urine Ketones (Negative) mg/dL Urine Blood (Negative) Urine Nitrite (Negative) Urine Bilirubin (Negative) Urine Urobilinogen (<2.0) mg/dL Ur Leukocyte Esterase (Negative) Urine WBC (Auto) (0.0-6.0) /HPF Urine RBC (Auto) (0.0-6.0) /HPF U Epithel Cells (Auto) (0-13.0) /HPF Urine Bacteria (Auto) (Negative) /HPF Urine WBC Clumps /HPF Urine Mucus /HPF Salicylates (2.8-20.0) mg/dL Acetaminophen (10.0-30.0) ug/mL Plasma/Serum Alcohol (0-0.07) % Blood Type Antibody Screen 04/06/20 04/06/20 04/06/20 Range/Units 14:30 14:30 14:30 WBC (4.5-11.0) K/mm3 RBC (3.65-5.03) M/mm3 Hgb (10.1-14.3) gm/dl Hct (30.3-42.9) % MCV (79-97) fl MCH (28-32) pg MCHC (30-34) % RDW (13.2-15.2) % Plt Count (140-440) K/mm3 Add Manual Diff Total Counted Seg Neuts % (Manual) (40.0-70.0) % Band Neutrophils % % Lymphocytes % (Manual) (13.4-35.0) % Reactive Lymphs % (Man) % Monocytes % (Manual) (0.0-7.3) % Eosinophils % (Manual) (0.0-4.3) % Basophils % (Manual) (0.0-1.8) % Metamyelocytes % % Myelocytes % % Promyelocytes % % Blast Cells % % Nucleated RBC % Seg Neutrophils # Man (1.8-7.7) K/mm3 Band Neutrophils # K/mm3 Lymphocytes # (Manual) (1.2-5.4) K/mm3 Abs React Lymphs (Man) K/mm3 Monocytes # (Manual) (0.0-0.8) K/mm3 Eosinophils # (Manual) (0.0-0.4) K/mm3 Basophils # (Manual) (0.0-0.1) K/mm3 Metamyelocytes # K/mm3 Myelocytes # K/mm3 Promyelocytes # K/mm3 Blast Cells # K/mm3 WBC Morphology Hypersegmented Neuts Hyposegmented Neuts Hypogranular Neuts Smudge Cells Toxic Granulation Toxic Vacuolation Dohle Bodies Pelger-Huet Anomaly Stephanie Rods Platelet Estimate Clumped Platelets Plt Clumps, EDTA Large Platelets Giant Platelets Platelet Satelliting Plt Morphology Comment RBC Morphology Dimorphic RBCs Polychromasia Hypochromasia Poikilocytosis Anisocytosis Microcytosis Macrocytosis Spherocytes Pappenheimer Bodies Sickle Cells Target Cells Tear Drop Cells Ovalocytes Helmet Cells [place] Bodies [place] Rings Michael Cells Bite Cells Crenated Cell Elliptocytes Acanthocytes (Spur) Rouleaux Hemoglobin C Crystals Schistocytes Malaria parasites Lc Bodies Hem Pathologist Commnt PT (12.2-14.9) Sec. INR (0.87-1.13) APTT (24.2-36.6) Sec. ABG pH (7.350-7.450) pH Units ABG pCO2 mm Hg ABG pO2 (80.0-90.0) mm Hg ABG HCO3 (20.0-26.0) mmol/L ABG O2 Saturation (95.0-99.0) % ABG O2 Content (0.0-44) ABG Base Excess (-2.0-3.0) mmol/L ABG Hemoglobin (12.0-16.0) gm/dl ABG Carboxyhemoglobin (0.0-5.0) % ABG Methemoglobin (0.0-1.5) % Oxyhemoglobin (95.0-99.0) % FiO2 % Sodium (137-145) mmol/L Potassium (3.6-5.0) mmol/L Chloride (98-107) mmol/L Carbon Dioxide (22-30) mmol/L Anion Gap mmol/L BUN (7-17) mg/dL Creatinine (0.6-1.2) mg/dL Estimated GFR ml/min BUN/Creatinine Ratio % Glucose (65-100) mg/dL Lactic Acid (0.7-2.0) mmol/L Calcium (8.4-10.2) mg/dL Magnesium (1.7-2.3) mg/dL Total Bilirubin (0.1-1.2) mg/dL AST (5-40) units/L ALT (7-56) units/L Alkaline Phosphatase (35-129) units/L Ammonia (25-60) umol/L Total Creatine Kinase (30-135) units/L Troponin T (0.00-0.029) ng/mL Total Protein (6.3-8.2) g/dL Albumin (3.9-5) g/dL Albumin/Globulin Ratio % Triglycerides (2-149) mg/dL Cholesterol (50-199) mg/dL LDL Cholesterol Direct (50-130) mg/dL HDL Cholesterol (40-59) mg/dL Cholesterol/HDL Ratio % TSH 1.320 (0.270-4.200) mlU/mL Urine Color (Yellow) Urine Turbidity (Clear) Urine pH (5.0-7.0) Ur Specific [place] (1.003-1.030) Urine Protein (Negative) mg/dL Urine Glucose (UA) (Negative) mg/dL Urine Ketones (Negative) mg/dL Urine Blood (Negative) Urine Nitrite (Negative) Urine Bilirubin (Negative) Urine Urobilinogen (<2.0) mg/dL Ur Leukocyte Esterase (Negative) Urine WBC (Auto) (0.0-6.0) /HPF Urine RBC (Auto) (0.0-6.0) /HPF U Epithel Cells (Auto) (0-13.0) /HPF Urine Bacteria (Auto) (Negative) /HPF Urine WBC Clumps /HPF Urine Mucus /HPF Salicylates < 0.3 L (2.8-20.0) mg/dL Acetaminophen 5.0 L (10.0-30.0) ug/mL Plasma/Serum Alcohol (0-0.07) % Blood Type Antibody Screen 04/06/20 04/06/20 04/06/20 Range/Units 14:30 14:30 14:30 WBC (4.5-11.0) K/mm3 RBC (3.65-5.03) M/mm3 Hgb (10.1-14.3) gm/dl Hct (30.3-42.9) % MCV (79-97) fl MCH (28-32) pg MCHC (30-34) % RDW (13.2-15.2) % Plt Count (140-440) K/mm3 Add Manual Diff Total Counted Seg Neuts % (Manual) (40.0-70.0) % Band Neutrophils % % Lymphocytes % (Manual) (13.4-35.0) % Reactive Lymphs % (Man) % Monocytes % (Manual) (0.0-7.3) % Eosinophils % (Manual) (0.0-4.3) % Basophils % (Manual) (0.0-1.8) % Metamyelocytes % % Myelocytes % % Promyelocytes % % Blast Cells % % Nucleated RBC % Seg Neutrophils # Man (1.8-7.7) K/mm3 Band Neutrophils # K/mm3 Lymphocytes # (Manual) (1.2-5.4) K/mm3 Abs React Lymphs (Man) K/mm3 Monocytes # (Manual) (0.0-0.8) K/mm3 Eosinophils # (Manual) (0.0-0.4) K/mm3 Basophils # (Manual) (0.0-0.1) K/mm3 Metamyelocytes # K/mm3 Myelocytes # K/mm3 Promyelocytes # K/mm3 Blast Cells # K/mm3 WBC Morphology Hypersegmented Neuts Hyposegmented Neuts Hypogranular Neuts Smudge Cells Toxic Granulation Toxic Vacuolation Dohle Bodies Pelger-Huet Anomaly Stephanie Rods Platelet Estimate Clumped Platelets Plt Clumps, EDTA Large Platelets Giant Platelets Platelet Satelliting Plt Morphology Comment RBC Morphology Dimorphic RBCs Polychromasia Hypochromasia Poikilocytosis Anisocytosis Microcytosis Macrocytosis Spherocytes Pappenheimer Bodies Sickle Cells Target Cells Tear Drop Cells Ovalocytes Helmet Cells [place] Bodies [place] Rings [place] Cells Bite Cells Crenated Cell Elliptocytes Acanthocytes (Spur) Rouleaux Hemoglobin C Crystals Schistocytes Malaria parasites Lc Bodies Hem Pathologist Commnt PT (12.2-14.9) Sec. INR (0.87-1.13) APTT (24.2-36.6) Sec. ABG pH (7.350-7.450) pH Units ABG pCO2 mm Hg ABG pO2 (80.0-90.0) mm Hg ABG HCO3 (20.0-26.0) mmol/L ABG O2 Saturation (95.0-99.0) % ABG O2 Content (0.0-44) ABG Base Excess (-2.0-3.0) mmol/L ABG Hemoglobin (12.0-16.0) gm/dl ABG Carboxyhemoglobin (0.0-5.0) % ABG Methemoglobin (0.0-1.5) % Oxyhemoglobin (95.0-99.0) % FiO2 % Sodium (137-145) mmol/L Potassium (3.6-5.0) mmol/L Chloride (98-107) mmol/L Carbon Dioxide (22-30) mmol/L Anion Gap mmol/L BUN (7-17) mg/dL Creatinine (0.6-1.2) mg/dL Estimated GFR ml/min BUN/Creatinine Ratio % Glucose (65-100) mg/dL Lactic Acid (0.7-2.0) mmol/L Calcium (8.4-10.2) mg/dL Magnesium 2.50 H (1.7-2.3) mg/dL Total Bilirubin (0.1-1.2) mg/dL AST (5-40) units/L ALT (7-56) units/L Alkaline Phosphatase (35-129) units/L Ammonia (25-60) umol/L Total Creatine Kinase 24 L (30-135) units/L Troponin T (0.00-0.029) ng/mL Total Protein (6.3-8.2) g/dL Albumin (3.9-5) g/dL Albumin/Globulin Ratio % Triglycerides (2-149) mg/dL Cholesterol (50-199) mg/dL LDL Cholesterol Direct (50-130) mg/dL HDL Cholesterol (40-59) mg/dL Cholesterol/HDL Ratio % TSH (0.270-4.200) mlU/mL Urine Color (Yellow) Urine Turbidity (Clear) Urine pH (5.0-7.0) Ur Specific [place] (1.003-1.030) Urine Protein (Negative) mg/dL Urine Glucose (UA) (Negative) mg/dL Urine Ketones (Negative) mg/dL Urine Blood (Negative) Urine Nitrite (Negative) Urine Bilirubin (Negative) Urine Urobilinogen (<2.0) mg/dL Ur Leukocyte Esterase (Negative) Urine WBC (Auto) (0.0-6.0) /HPF Urine RBC (Auto) (0.0-6.0) /HPF U Epithel Cells (Auto) (0-13.0) /HPF Urine Bacteria (Auto) (Negative) /HPF Urine WBC Clumps /HPF Urine Mucus /HPF Salicylates (2.8-20.0) mg/dL Acetaminophen (10.0-30.0) ug/mL Plasma/Serum Alcohol < 0.01 (0-0.07) % Blood Type O POSITIVE Antibody Screen Negative 04/06/20 Range/Units 14:39 WBC (4.5-11.0) K/mm3 RBC (3.65-5.03) M/mm3 Hgb (10.1-14.3) gm/dl Hct (30.3-42.9) % MCV (79-97) fl MCH (28-32) pg MCHC (30-34) % RDW (13.2-15.2) % Plt Count (140-440) K/mm3 Add Manual Diff Total Counted Seg Neuts % (Manual) (40.0-70.0) % Band Neutrophils % % Lymphocytes % (Manual) (13.4-35.0) % Reactive Lymphs % (Man) % Monocytes % (Manual) (0.0-7.3) % Eosinophils % (Manual) (0.0-4.3) % Basophils % (Manual) (0.0-1.8) % Metamyelocytes % % Myelocytes % % Promyelocytes % % Blast Cells % % Nucleated RBC % Seg Neutrophils # Man (1.8-7.7) K/mm3 Band Neutrophils # K/mm3 Lymphocytes # (Manual) (1.2-5.4) K/mm3 Abs React Lymphs (Man) K/mm3 Monocytes # (Manual) (0.0-0.8) K/mm3 Eosinophils # (Manual) (0.0-0.4) K/mm3 Basophils # (Manual) (0.0-0.1) K/mm3 Metamyelocytes # K/mm3 Myelocytes # K/mm3 Promyelocytes # K/mm3 Blast Cells # K/mm3 WBC Morphology Hypersegmented Neuts Hyposegmented Neuts Hypogranular Neuts Smudge Cells Toxic Granulation Toxic Vacuolation Dohle Bodies Pelger-Huet Anomaly Stephanie Rods Platelet Estimate Clumped Platelets Plt Clumps, EDTA Large Platelets Giant Platelets Platelet Satelliting Plt Morphology Comment RBC Morphology Dimorphic RBCs Polychromasia Hypochromasia Poikilocytosis Anisocytosis Microcytosis Macrocytosis Spherocytes Pappenheimer Bodies Sickle Cells Target Cells Tear Drop Cells Ovalocytes Helmet Cells [place] Bodies [place] Rings [place] Cells Bite Cells Crenated Cell Elliptocytes Acanthocytes (Spur) Rouleaux Hemoglobin C Crystals Schistocytes Malaria parasites Lc Bodies Hem Pathologist Commnt PT (12.2-14.9) Sec. INR (0.87-1.13) APTT (24.2-36.6) Sec. ABG pH 7.281 L (7.350-7.450) pH Units ABG pCO2 39.8 mm Hg ABG pO2 133.8 H (80.0-90.0) mm Hg ABG HCO3 18.3 L (20.0-26.0) mmol/L ABG O2 Saturation 98.4 (95.0-99.0) % ABG O2 Content 14.9 (0.0-44) ABG Base Excess -7.8 L (-2.0-3.0) mmol/L ABG Hemoglobin 10.8 L (12.0-16.0) gm/dl ABG Carboxyhemoglobin 1.7 (0.0-5.0) % ABG Methemoglobin 0.6 (0.0-1.5) % Oxyhemoglobin 96.1 (95.0-99.0) % FiO2 50 % Sodium (137-145) mmol/L Potassium (3.6-5.0) mmol/L Chloride (98-107) mmol/L Carbon Dioxide (22-30) mmol/L Anion Gap mmol/L BUN (7-17) mg/dL Creatinine (0.6-1.2) mg/dL Estimated GFR ml/min BUN/Creatinine Ratio % Glucose (65-100) mg/dL Lactic Acid (0.7-2.0) mmol/L Calcium (8.4-10.2) mg/dL Magnesium (1.7-2.3) mg/dL Total Bilirubin (0.1-1.2) mg/dL AST (5-40) units/L ALT (7-56) units/L Alkaline Phosphatase (35-129) units/L Ammonia (25-60) umol/L Total Creatine Kinase (30-135) units/L Troponin T (0.00-0.029) ng/mL Total Protein (6.3-8.2) g/dL Albumin (3.9-5) g/dL Albumin/Globulin Ratio % Triglycerides (2-149) mg/dL Cholesterol (50-199) mg/dL LDL Cholesterol Direct (50-130) mg/dL HDL Cholesterol (40-59) mg/dL Cholesterol/HDL Ratio % TSH (0.270-4.200) mlU/mL Urine Color (Yellow) Urine Turbidity (Clear) Urine pH (5.0-7.0) Ur Specific [place] (1.003-1.030) Urine Protein (Negative) mg/dL Urine Glucose (UA) (Negative) mg/dL Urine Ketones (Negative) mg/dL Urine Blood (Negative) Urine Nitrite (Negative) Urine Bilirubin (Negative) Urine Urobilinogen (<2.0) mg/dL Ur Leukocyte Esterase (Negative) Urine WBC (Auto) (0.0-6.0) /HPF Urine RBC (Auto) (0.0-6.0) /HPF U Epithel Cells (Auto) (0-13.0) /HPF Urine Bacteria (Auto) (Negative) /HPF Urine WBC Clumps /HPF Urine Mucus /HPF Salicylates (2.8-20.0) mg/dL Acetaminophen (10.0-30.0) ug/mL Plasma/Serum Alcohol (0-0.07) % Blood Type Antibody Screen - EKG Data -: EKG Interpreted by Oh EKG shows normal: sinus rhythm Rate: normal - EKG Data 04/06/20 16:28 Sinus rhythm, 80 bpm, left axis deviation, IN interval prolonged, 234 ms. QTC prolonged, 490 ms. There is poor R wave progression and motion artifact. The EKG is abnormal. The EKG is not a STEMI. Appears to be grossly unchanged when compared to prior EKG from December 2019. - Radiology Data Radiology results: pending, report reviewed, image reviewed CHEST 1 VIEW INDICATION: Endotracheal tube placement, altered mental status. COMPARISON: 01/06/2020 FINDINGS: Support devices: An endotracheal tube has been inserted which terminates 1.3 cm superior to the robbi. A nasogastric tube terminates in the mid stomach. Right IJ permacath is unchanged terminating in the superior right atrium. Heart: Stable mild cardiomegaly. Lungs/Pleura: There is poor inspiration with mild bibasilar opacities which probably represents atelectatic changes. The upper lung zones are clear. No pleural effusion or pneumothorax. Additional findings: None. IMPRESSION: Endotracheal tube terminates 1.3 cm superior to the robbi. Consider retraction by 2-3 cm. Stable mild cardiomegaly. Mild bibasilar opacities as described. Signer Name: Barrie Valentin Jr, MD Signed: 04/06/2020 2:37 PM Workstation Name: [id number] CT HEAD WITHOUT CONTRAST INDICATION / CLINICAL INFORMATION: Altered Mental Status. TECHNIQUE: All CT scans at this location are performed using CT dose reduction for ALARA by means of automated exposure control. COMPARISON: Head CT 01/06/2020 FINDINGS: HEMORRHAGE: No evidence of intracranial hemorrhage or extra-axial fluid collection. EXTRA-AXIAL SPACES: Cortical sulci, sylvian fissures and basilar cisterns have an unremarkable appearance. VENTRICULAR SYSTEM: The ventricular system is of normal size and configuration. 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 There is no indication of recent infarction. MIDLINE SHIFT OR HERNIATION: There is no mass effect. CEREBELLUM / BRAINSTEM: Brainstem and cerebellum have an unremarkable appearance. MIDLINE STRUCTURES:No abnormalities of the pituitary gland or pineal region are identified. INTRACRANIAL VESSELS: Extensively calcified atherosclerotic plaque is seen along the course of the cavernous segments of both internal carotid arteries. Similar findings are seen at the distal vertebral arteries. There is evidence of calcified atherosclerotic plaque involv ing the vessels of the external carotid artery circulation within the scalp which can be associated with diabetes. ORBITS: Status post bilateral cataract surgery. The orbits have an otherwise unremarkable appearance. SOFT TISSUES of HEAD: No significant abnormality. CALVARIUM: Evaluation of bone windows reveals no abnormalities. PARANASAL SINUSES / MASTOID AIR CELLS: Paranasal sinuses are free from inflammatory mucosal disease. Mastoid air cells are normally pneumatized. IMPRESSION: 1. 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 2. No acute intracranial abnormalities are identified. Signer Name: Darrell Pitt MD Signed: 04/06/2020 3:24 PM Workstation Name: [id number] Critical Care Time: Yes Critical care time in (mins) excluding proc time.: 65 Critical care attestation.: If time is entered above; I have spent that time in minutes in the direct care of this critically ill patient, excluding procedure time. ED Disposition Clinical Impression: Encephalopathy acute, Hyperkalemia, End stage renal disease, UTI (urinary tract infection), Hypothermia, Metabolic acidosis Acute respiratory failure Qualifiers: Respiratory failure complication: hypoxia Qualified Code(s): J96.01 - Acute respiratory failure with hypoxia Disposition: OP ADMIT IP TO THIS HOSP Is pt being admited?: Yes Does the pt Need Aspirin: No Condition: Critical
[2020-04-06] MEDS ORDERED: ACYCLOVIR 800 MG in SODIUM CHLORIDE 0.9% 100 ML IV STA (13:39)
[2020-04-06 14:22] LABS: Bacteria,Urine 2+ /HPF (Negative); Bilirubin,Urine NEG (Negative); Blood,Urine SM (Negative); Color,Urine Yellow (Yellow); Mucus,Urine 3+ /HPF; Urobilinogen,Urine < 2.0 mg/dL (<2.0)
[2020-04-06 14:28] LABS: WBC,Urine > 182.0 /HPF (0.0-6.0)
[2020-04-06 14:47] LABS: ABG Base Excess -7.8 mmol/L (-2.0-3.0); ABG HCO3 18.3 mmol/L (20.0-26.0); ABG Methemoglobin 0.6 % (0.0-1.5); ABG Oxygen Saturation 98.4 % (95.0-99.0); ABG PCO2 39.8 mm Hg; ABG PH 7.281 pH Units (7.350-7.450); ABG PO2 133.8 mm Hg (80.0-90.0)
[2020-04-06 14:51] LABS: Hemoglobin 10.9 gm/dl (10.1-14.3); Mean Corpuscular HGB Conc 31 % (30-34); Mean Corpuscular Volume 92 fl (79-97); Platelet Count 425 K/mm3 (140-440); Red Blood Count 3.79 M/mm3 (3.65-5.03); Red Cell Distribution Width 17.8 % (13.2-15.2)
[2020-04-06 15:02] LABS: INR 1.04 (0.87-1.13); Partial Thromboplastin Time 28.1 Sec. (24.2-36.6)
[2020-04-06 15:13] LABS: Albumin 3.1 g/dL (3.9-5); Calcium 8.9 mg/dL (8.4-10.2)
[2020-04-06 15:30] LABS: Anisocytosis Few; Band Neutrophils # (Manual) 0.2 K/mm3; Basophils % (Manual) 0 % (0.0-1.8); Macrocytosis Few; Platelet Estimate Consistent w Auto; Total Cells Counted 100
[2020-04-06 15:38] LABS: Chol/HDL Ratio 6.37 %
[2020-04-06] MEDS: fentaNYL DRIP Premix 2,000 MCG/100 ML BAG IV SCH ×2 (15:47→23:47)
--- NOTE | 2020-04-06 16:29 | Cat Scan Report ---
CT HEAD WITHOUT CONTRAST INDICATION / CLINICAL INFORMATION: Altered Mental Status. TECHNIQUE: All CT scans at this location are performed using CT dose reduction for ALARA by means of automated e xposure control. COMPARISON: Head CT 01/06/2020 FINDINGS: HEMORRHAGE: No evidence of intracranial hemorrhage or extra-axial fluid collection. EXTRA-AXIAL SPACES: Cortical sulci, sylvian fissures and basilar cisterns have an unremarkable appear ance. VENTRICULAR SYSTEM: The ventricular system is of normal size and configuration. CEREBRAL PARENCHYMA: Again demonstrated is evidence of a remote small deep infarction in the right ga ngliocapsular region unchanged from study 01/06/2020. There is no indication of recent infarction. MIDLINE SHIFT OR HERNIATION: There is no mass effect. CEREBELLUM / BRAINSTEM: Brainstem and cerebellum have an unremarkable appearance. MIDLINE STRUCTURES:No abnormalities of the pituitary gland or pineal region are identified. INTRACRANIAL VESSELS: Extensively calcified atherosclerotic plaque is seen along the course of the ca vernous segments of both internal carotid arteries. Similar findings are seen at the distal vertebral arteries. There is evidence of calcified atherosclerotic plaque involving the vessels of the externa l carotid artery circulation within the scalp which can be associated with diabetes. ORBITS: Status post bilateral cataract surgery. The orbits have an otherwise unremarkable appearance. SOFT TISSUES of HEAD: No significant abnormality. CALVARIUM: Evaluation of bone windows reveals no abnormalities. PARANASAL SINUSES / MASTOID AIR CELLS: Paranasal sinuses are free from inflammatory mucosal disease. Mastoid air cells are normally pneumatized. IMPRESSION: 1. Persistent finding of remote small deep infarction right gangliocapsular region unchanged since . 2. No acute intracranial abnormalities are identified. Signer Name: Darrell Pitt MD Signed: 04/06/2020 4:24 PM Workstation Name: [id number]
[2020-04-06] MEDS ORDERED: ACETAMINOPHEN 325 MG TAB PO PRN (16:39)
[2020-04-06] MEDS ORDERED: HYDROmorphone 1 MG/1 ML INJ IV PRN (16:39)
--- NOTE | 2020-04-06 16:41 | History and Physical Report ---
History of Present Illness Chief complaint: Unresponsive History of present illness: 49 YO Female Longterm Facility Resident at [facility] with Asthma, HTN, ESRD on HD(M,W,F), Anemia of Chronic Disease, DM Bipolar Disorder, Obesity Hypoventilation Syndrome, CVA with LHP presents to ED for evaluation. Patient is confused and lethargic at the time of my evaluation and is unable to detailed provide history. Patient history provided by ED staff, EMS staff, and senior living facility staff. As per staff the state patient was in her usual state of health this morning and was transported to her routine dialysis session today. After undergoing dialysis - the patient was found to be unresponsive. EMS was notified, and upon arrival the patient was found to be in respiratory distress. The patient was unable to protect her airway and was intubated and placed on ventilatory support in the emergency department. The patient was also found to have sepsis secondary to urinary tract infection, toxic metabolic encephalopathy, as well as end-stage renal disease. Patient admitted to ICU due to increased risk of multiple organ system failure. Nephrology team consulted in ED. critical care team consulted in ED. No further history obtainable. Prior admission on 01/06/2020 reviewed. All medication listed at time of admission has been reconciled. Advanced care planning conducted in ED. Past History Past Medical History: diabetes, ESRD, hypertension, stroke, other (See HPI) Past Surgical History: Other (Bilateral foot amputations) Social history: single. denies: smoking, alcohol abuse, prescription drug abuse Family history: hypertension Medications and Allergies Allergies Allergy/AdvReac Type Severity Reaction Status Date / Time carrot Allergy Hives Verified 07/28/19 12:30 erythromycin base Allergy Hives Verified 07/30/19 11:26 latex Allergy Rash Verified 02/18/19 13:20 peas Allergy Hives Verified 12/20/19 12:37 vancomycin Allergy Hives Verified 12/31/19 15:46 Home Medications Medication Instructions Recorded Confirmed Last Taken Type Aripiprazole 5 mg PO DAILY 02/18/19 01/08/20 02/17/19 History Benadryl CAP 25 mg PO Q8H PRN 02/18/19 01/08/20 02/17/19 History Calcium Acetate 667 mg PO TIDWM 02/18/19 01/08/20 02/17/19 History Carvedilol 6.25 mg PO Q12H 02/18/19 01/08/20 02/17/19 History Colace CAP 100 mg PO Q12H PRN 02/18/19 01/08/20 02/17/19 History Esomeprazole Magnesium 40 mg PO QDAC 02/18/19 01/08/20 02/17/19 History HumaLOG 10 units SUB-Q TIDWM 02/18/19 01/08/20 02/17/19 History Insulin Detemir (Nf) [Levemir See Protocol SQ QHS 02/18/19 01/08/20 02/17/19 History Flextouch (Nf)] Losartan Potassium 50 mg PO DAILY 02/18/19 01/08/20 02/17/19 History Lyrica 75 mg PO Q12H 02/18/19 01/08/20 02/17/19 History Melatonin 6 mg PO QHS 02/18/19 01/08/20 02/17/19 History Senna 17.2 mg PO QHS PRN 02/18/19 01/08/20 02/17/19 History Venlafaxine HCl [Venlafaxine HCl 150 mg PO QDAC 02/18/19 01/08/20 02/17/19 History ER] Vitamin C 250 mg PO DAILY 02/18/19 01/08/20 02/17/19 History ZyrTEC 10mg cap 10 mg PO DAILY 02/18/19 01/08/20 02/17/19 History Calcium Acetate [Phoslo] 667 mg PO TIDWM capsule 12/22/19 01/08/20 Unknown Rx Fe Fumarate/FA/Mv, Min Comb#15 1 each PO QDAY capsule 12/22/19 01/08/20 Unknown Rx [Hemocyte Plus] Albuterol Mdi (or & Nicu Only) 2.5 puff IH Q4HRT PRN inha 01/12/20 Unknown Rx [ProAir HFA Inhaler] dexAMETHasone [Decadron] 6 mg PO Q12HR #10 tablet 01/12/20 Unknown Rx oxyCODONE 5 mg PO Q6H PRN #10 01/12/20 Unknown Rx Active Meds: Active Medications Fentanyl (Sublimaze) 50 mcg IV Q10MIN PRN PRN Reason: ANALGESIA Hydrophilic Ointment (Vaseline Lip Therapy) 1 applic TP Q2HR PRN PRN Reason: Dry Lips Fentanyl Citrate (Fentanyl Drip Premix) 2,000 mcg in 100 mls @ 5.505 mls/hr IV TITR NOEL; Protocol Last Admin: 04/06/20 15:47 Dose: 1 mcg/kg/hr, 5.505 mls/hr Documented by: Nicardipine/Sodium Chloride (Cardene Drip 40 Mg/200 Ml) 40 mg in 200 mls @ 25 mls/hr IV TITR NOEL; Protocol Multi-Ingred Cream/Lotion/Oil/Oint (Artificial Tears Ophth Oint) 1 applic OU Q4HR PRN PRN Reason: Dry Eye(s) Sodium Chloride (Sodium Chloride Flush Syringe 10 Ml) 10 ml IV BID NOEL Sodium Chloride (Sodium Chloride Flush Syringe 10 Ml) 10 ml IV PRN PRN PRN Reason: LINE FLUSH Review of Systems ROS unobtainable: due to endotracheal tube, due to mental status Exam - Constitutional Vitals: Temp Pulse Resp BP Pulse Ox 94.1 F L 70 18 229/72 100 04/06/20 13:05 04/06/20 15:26 04/06/20 14:00 04/06/20 15:26 04/06/20 15:26 General appearance: Present: severe distress - EENT Eyes: Present: PERRL ENT: clear oral mucosa, hearing decreased - Neck Neck: Present: supple, normal ROM - Respiratory Respiratory effort: normal, labored, accessory muscle use Respiratory: bilateral: diminished, rhonchi - Cardiovascular Rhythm: other (Tachycardia) Heart Sounds: Present: S1 & S2. Absent: rub, click - Extremities Extremity abnormal: edema Peripheral Pulses: abnormal (Capillary refill greater than 3.5 seconds) - Abdominal General gastrointestinal: Present: soft, non-tender, non-distended, normal bowel sounds Female genitourinary: Present: normal - Integumentary Integumentary: Present: dry, clammy, decreased turgor - Musculoskeletal Musculoskeletal: generalized weakness - Psychiatric Psychiatric: no appropriate mood/affect, no intact judgment & insight, no memory intact - Neurologic Neurologic: no CNII-XII intact, no focal deficits, moves all extremities, no ga it normal HEART Score - HEART Score Troponin: Troponin T 0.224 ng/mL (0.00-0.029) H* 04/06/20 14:30 Results - Labs CBC & Chem 7: 11/12/20 14:30 04/06/20 14:30 Labs: Abnormal lab results 04/06/20 04/06/20 04/06/20 Range/Units 13:34 14:30 14:30 WBC 19.2 H (4.5-11.0) K/mm3 RDW 17.8 H (13.2-15.2) % Seg Neuts % (Manual) 90.0 H (40.0-70.0) % Lymphocytes % (Manual) 4.0 L (13.4-35.0) % Seg Neutrophils # Man 17.3 H (1.8-7.7) K/mm3 Lymphocytes # (Manual) 0.8 L (1.2-5.4) K/mm3 ABG pH (7.350-7.450) pH Units ABG pO2 (80.0-90.0) mm Hg ABG HCO3 (20.0-26.0) mmol/L ABG Base Excess (-2.0-3.0) mmol/L ABG Hemoglobin (12.0-16.0) gm/dl Potassium 5.2 H (3.6-5.0) mmol/L Carbon Dioxide 17 L (22-30) mmol/L BUN 53 H (7-17) mg/dL Creatinine 7.8 H (0.6-1.2) mg/dL Glucose 144 H (65-100) mg/dL Magnesium (1.7-2.3) mg/dL Alkaline Phosphatase 738 H (35-129) units/L Total Creatine Kinase 23 L (30-135) units/L Troponin T 0.224 H* (0.00-0.029) ng/mL Albumin 3.1 L (3.9-5) g/dL Triglycerides 342 H (2-149) mg/dL Cholesterol 223 H (50-199) mg/dL HDL Cholesterol 35 L (40-59) mg/dL Urine WBC (Auto) > 182.0 H (0.0-6.0) /HPF Salicylates (2.8-20.0) mg/dL Acetaminophen (10.0-30.0) ug/mL 04/06/20 04/06/20 04/06/20 Range/Units 14:30 14:30 14:30 WBC (4.5-11.0) K/mm3 RDW (13.2-15.2) % Seg Neuts % (Manual) (40.0-70.0) % Lymphocytes % (Manual) (13.4-35.0) % Seg Neutrophils # Man (1.8-7.7) K/mm3 Lymphocytes # (Manual) (1.2-5.4) K/mm3 ABG pH (7.350-7.450) pH Units ABG pO2 (80.0-90.0) mm Hg ABG HCO3 (20.0-26.0) mmol/L ABG Base Excess (-2.0-3.0) mmol/L ABG Hemoglobin (12.0-16.0) gm/dl Potassium (3.6-5.0) mmol/L Carbon Dioxide (22-30) mmol/L BUN (7-17) mg/dL Creatinine (0.6-1.2) mg/dL Glucose (65-100) mg/dL Magnesium 2.50 H (1.7-2.3) mg/dL Alkaline Phosphatase (35-129) units/L Total Creatine Kinase 24 L (30-135) units/L Troponin T (0.00-0.029) ng/mL Albumin (3.9-5) g/dL Triglycerides (2-149) mg/dL Cholesterol (50-199) mg/dL HDL Cholesterol (40-59) mg/dL Urine WBC (Auto) (0.0-6.0) /HPF Salicylates < 0.3 L (2.8-20.0) mg/dL Acetaminophen 5.0 L (10.0-30.0) ug/mL 04/06/20 Range/Units 14:39 WBC (4.5-11.0) K/mm3 RDW (13.2-15.2) % Seg Neuts % (Manual) (40.0-70.0) % Lymphocytes % (Manual) (13.4-35.0) % Seg Neutrophils # Man (1.8-7.7) K/mm3 Lymphocytes # (Manual) (1.2-5.4) K/mm3 ABG pH 7.281 L (7.350-7.450) pH Units ABG pO2 133.8 H (80.0-90.0) mm Hg ABG HCO3 18.3 L (20.0-26.0) mmol/L ABG Base Excess -7.8 L (-2.0-3.0) mmol/L ABG Hemoglobin 10.8 L (12.0-16.0) gm/dl Potassium (3.6-5.0) mmol/L Carbon Dioxide (22-30) mmol/L BUN (7-17) mg/dL Creatinine (0.6-1.2) mg/dL Glucose (65-100) mg/dL Magnesium (1.7-2.3) mg/dL Alkaline Phosphatase (35-129) units/L Total Creatine Kinase (30-135) units/L Troponin T (0.00-0.029) ng/mL Albumin (3.9-5) g/dL Triglycerides (2-149) mg/dL Cholesterol (50-199) mg/dL HDL Cholesterol (40-59) mg/dL Urine WBC (Auto) (0.0-6.0) /HPF Salicylates (2.8-20.0) mg/dL Acetaminophen (10.0-30.0) ug/mL Assessment and Plan - Patient Problems (1) Sepsis Current Visit: Yes Status: Acute Qualifiers: Severe sepsis shock status: with septic shock Plan to address problem: Sepsis protocol: CBC, CMP, urinalysis, chest x-ray, IV fluid resuscitation therapy as clinically indicated, IV antibiotic therapy, IV pressor support as clinically indicated to maintain mean arterial blood pressure greater than or equal to 65, monitor urine output every shift, repeat CBC in a.m. The high probability of a clinically significant, sudden or life threatening deterioration of the [cardiac, pulmonary, renal, neuro, respiratory] system(s) required my full and direct attention, intervention and personal management. The aggregate critical care time was [95] minutes. This time is in addition to time spent performing reported procedures but includes the following: [x] Data Review and interpretation [x] Patient assessment and monitoring of vital signs [x] Documentation [x] Medication orders and management (2) Acute respiratory failure Current Visit: Yes Status: Acute Qualifiers: Respiratory failure complication: hypoxia Qualified Code(s): J96.01 - Acute respiratory failure with hypoxia Plan to address problem: Patient intubated and on ventilatory support. Wean vent as tolerated, daily ABG, spontaneous breathing trial daily, sedation holiday daily, arterial blood gas, supportive care. (3) Toxic metabolic encephalopathy Current Visit: Yes Status: Acute Plan to address problem: CT head, neuro check, seizure precautions, aspiration precautions, fall precautions, treat sepsis. (4) End stage renal disease Current Visit: Yes Status: Acute Plan to address problem: Nephrology team consulted in ED, dialysis as per renal team, strict I's/O, monitor urine output every shift, avoid nephrotoxic agents. (5) Hypertensive emergency Current Visit: Yes Status: Acute Plan to address problem: Monitor blood pressure every shift, continue medical management. Continue nicardipine drip (6) DVT prophylaxis Current Visit: No Status: Acute Plan to address problem: SCD to bilateral lower extremities while in bed, prophylactic anticoagulation (7) Advance care planning Current Visit: Yes Status: Acute Plan to address problem: Disease education conducted, patient is full code, prognosis discussed, skilled facility staff acknowledges understanding and agreement with care plan, +30 minutes.
[2020-04-06] MEDS ORDERED: niCARdipine 50 MG in SODIUM CHLORIDE 0.9% 250ML 230 ML IV SCH (17:00)
[2020-04-06] MEDS ORDERED: niCARdipine DRIP 40 MG/200 ML BAG IV SCH (17:00)
--- NOTE | 2020-04-06 18:24 | Consultation ---
History of Present Illness Consult date: 04/06/20 Requesting physician: ESE KIM Reason for consult: other (Acute Hypoxemic Respiratory Failure; Severe Sepsis due to UTI) History of present illness: PULMONARY/CCM CONSULT NOTE (Full dictation # [id number]) Please see dictated notes for full details Past History Past Medical History: diabetes, ESRD, hypertension, stroke, other (See HPI) Past Surgical History: Other (Bilateral foot amputations) Social history: single. denies: smoking, alcohol abuse, prescription drug abuse Family history: hypertension Medications and Allergies Allergies Allergy/AdvReac Type Severity Reaction Status Date / Time carrot Allergy Hives Verified 07/28/19 12:30 erythromycin base Allergy Hives Verified 07/30/19 11:26 latex Allergy Rash Verified 02/18/19 13:20 peas Allergy Hives Verified 12/20/19 12:37 vancomycin Allergy Hives Verified 12/31/19 15:46 Home Medications Medication Instructions Recorded Confirmed Last Taken Type Aripiprazole 5 mg PO DAILY 02/18/19 01/08/20 02/17/19 History Benadryl CAP 25 mg PO Q8H PRN 02/18/19 01/08/20 02/17/19 History Calcium Acetate 667 mg PO TIDWM 02/18/19 01/08/20 02/17/19 History Carvedilol 6.25 mg PO Q12H 02/18/19 01/08/20 02/17/19 History Colace CAP 100 mg PO Q12H PRN 02/18/19 01/08/20 02/17/19 History Esomeprazole Magnesium 40 mg PO QDAC 02/18/19 01/08/20 02/17/19 History HumaLOG 10 units SUB-Q TIDWM 02/18/19 01/08/20 02/17/19 History Insulin Detemir (Nf) [Levemir See Protocol SQ QHS 02/18/19 01/08/20 02/17/19 History Flextouch (Nf)] Losartan Potassium 50 mg PO DAILY 02/18/19 01/08/20 02/17/19 History Lyrica 75 mg PO Q12H 02/18/19 01/08/20 02/17/19 History Melatonin 6 mg PO QHS 02/18/19 01/08/20 02/17/19 History Senna 17.2 mg PO QHS PRN 02/18/19 01/08/20 02/17/19 History Venlafaxine HCl [Venlafaxine HCl 150 mg PO QDAC 02/18/19 01/08/20 02/17/19 History ER] Vitamin C 250 mg PO DAILY 02/18/19 01/08/20 02/17/19 History ZyrTEC 10mg cap 10 mg PO DAILY 02/18/19 01/08/20 02/17/19 History Calcium Acetate [Phoslo] 667 mg PO TIDWM capsule 12/22/19 01/08/20 Unknown Rx Fe Fumarate/FA/Mv, Min Comb#15 1 each PO QDAY capsule 12/22/19 01/08/20 Unknown Rx [Hemocyte Plus] Albuterol Mdi (or & Nicu Only) 2.5 puff IH Q4HRT PRN inha 01/12/20 Unknown Rx [ProAir HFA Inhaler] dexAMETHasone [Decadron] 6 mg PO Q12HR #10 tablet 01/12/20 Unknown Rx oxyCODONE 5 mg PO Q6H PRN #10 01/12/20 Unknown Rx Active Meds: Active Medications Acetaminophen (Tylenol) 650 mg PO Q6H PRN PRN Reason: Pain, Mild (1-3) Fentanyl (Sublimaze) 50 mcg IV Q10MIN PRN PRN Reason: ANALGESIA Hydromorphone HCl (Dilaudid) 0.25 mg IV Q4H PRN PRN Reason: Pain, Moderate (4-6) Hydrophilic Ointment (Vaseline Lip Therapy) 1 applic TP Q2HR PRN PRN Reason: Dry Lips Fentanyl Citrate (Fentanyl Drip Premix) 2,000 mcg in 100 mls @ 5.505 mls/hr IV TITR NOEL; Protocol Last Titration: 04/06/20 18:15 Dose: 3 mcg/kg/hr, 16.515 mls/hr Documented by: Nicardipine/Sodium Chloride (Cardene Drip 40 Mg/200 Ml) 40 mg in 200 mls @ 25 mls/hr IV TITR NOEL; Protocol Last Titration: 04/06/20 18:14 Dose: 7.5 mg/hr, 37.5 mls/hr Documented by: Levofloxacin/Dextrose (Levaquin 750mg/150ml) 750 mg in 150 mls @ 100 mls/hr IV Q48HR NOEL; Protocol Multi-Ingred Cream/Lotion/Oil/Oint (Artificial Tears Ophth Oint) 1 applic OU Q4HR PRN PRN Reason: Dry Eye(s) Sodium Chloride (Sodium Chloride Flush Syringe 10 Ml) 10 ml IV BID NOEL Sodium Chloride (Sodium Chloride Flush Syringe 10 Ml) 10 ml IV PRN PRN PRN Reason: LINE FLUSH Physical Examination Vital signs: Vital Signs Temp Pulse Resp BP Pulse Ox 94.1 F L 66 18 131/111 87 04/06/20 13:05 04/06/20 13:05 04/06/20 13:05 04/06/20 13:05 04/06/20 13:05 Results - Laboratory Findings CBC and BMP: 04/06/20 14:30 04/06/20 14:30 ABG ABG pH 7.281 pH Units (7.350-7.450) L 04/06/20 14:39 ABG pCO2 39.8 mm Hg 04/06/20 14:39 ABG pO2 133.8 mm Hg (80.0-90.0) H 04/06/20 14:39 ABG O2 Saturation 98.4 % (95.0-99.0) 04/06/20 14:39 PT/INR, D-dimer PT 13.8 Sec. (12.2-14.9) 04/06/20 14:30 INR 1.04 (0.87-1.13) 04/06/20 14:30 Abnormal lab findings: Abnormal Labs 04/06/20 04/06/20 04/06/20 13:34 14:30 14:30 WBC 19.2 H RDW 17.8 H Seg Neuts % (Manual) 90.0 H Lymphocytes % (Manual) 4.0 L Seg Neutrophils # Man 17.3 H Lymphocytes # (Manual) 0.8 L ABG pH ABG pO2 ABG HCO3 ABG Base Excess ABG Hemoglobin Potassium 5.2 H Carbon Dioxide 17 L BUN 53 H Creatinine 7.8 H Glucose 144 H Magnesium Alkaline Phosphatase 738 H Total Creatine Kinase 23 L Troponin T 0.224 H* Albumin 3.1 L Triglycerides 342 H Cholesterol 223 H HDL Cholesterol 35 L Urine WBC (Auto) > 182.0 H Salicylates Acetaminophen 04/06/20 04/06/20 04/06/20 14:30 14:30 14:30 WBC RDW Seg Neuts % (Manual) Lymphocytes % (Manual) Seg Neutrophils # Man Lymphocytes # (Manual) ABG pH ABG pO2 ABG HCO3 ABG Base Excess ABG Hemoglobin Potassium Carbon Dioxide BUN Creatinine Glucose Magnesium 2.50 H Alkaline Phosphatase Total Creatine Kinase 24 L Troponin T Albumin Triglycerides Cholesterol HDL Cholesterol Urine WBC (Auto) Salicylates < 0.3 L Acetaminophen 5.0 L 04/06/20 14:39 WBC RDW Seg Neuts % (Manual) Lymphocytes % (Manual) Seg Neutrophils # Man Lymphocytes # (Manual) ABG pH 7.281 L ABG pO2 133.8 H ABG HCO3 18.3 L ABG Base Excess -7.8 L ABG Hemoglobin 10.8 L Potassium Carbon Dioxide BUN Creatinine Glucose Magnesium Alkaline Phosphatase Total Creatine Kinase Troponin T Albumin Triglycerides Cholesterol HDL Cholesterol Urine WBC (Auto) Salicylates Acetaminophen
[2020-04-06] MEDS ORDERED: CEFEPIME/NS 1 GM/100 ML 1 GM/100 ML BAG IV SCH ×2 (19:00)
[2020-04-06] MEDS ORDERED: fentaNYL DRIP Premix 2,000 MCG/100 ML BAG IV ONE (21:04)
[2020-04-06] MEDS ORDERED: CEFEPIME/NS 1 GM/100 ML 1 GM/100 ML BAG IV ONE (21:22)
[2020-04-06] MEDS: CEFEPIME/NS 1 GM/100 ML 1 GM/100 ML BAG IV SCH (21:31)
[2020-04-06] MEDS ORDERED: HEPARIN 5,000 UNIT/1 ML VIAL ONE (22:03)
[2020-04-06] MEDS: HEPARIN 5,000 UNIT/1 ML VIAL SUB-Q SCH (22:05)
[2020-04-07] MEDS ORDERED: ROCURONIUM 50 MG/5 ML INJ IV ONE (00:24)
[2020-04-07] MEDS ORDERED: KETAMINE 500 MG/5 ML VIAL MDV ONE (00:24)
[2020-04-07] MEDS ORDERED: DEXTROSE 50% IN WATER (25GM) 50 ML SYRINGE IV ONE (01:04)
--- NOTE | 2020-04-07 01:48 | XRay Report ---
ABDOMEN, SINGLE VIEW INDICATION / CLINICAL INFORMATION: follow up respiratory failure. COMPARISON: None available. FINDINGS: NG tube is present. The tip is projecting in the proximal to midportion of the stomach and is well po sitioned. CHEST 1 VIEW INDICATION / CLINICAL INFORMATION: follow up respiratory failure. COMPARISON: 04/06/2020 at 0325 hours FINDINGS: SUPPORT DEVICES: ET tube has been pulled back since the earlier chest radiograph. The tip is now appr oximately 6.4 cm from the robbi. Right subclavian central line is present with tip projecting at the cavoatrial junction. HEART / MEDIASTINUM: No significant abnormality. LUNGS / PLEURA: Bibasilar parenchymal disease is again noted not appreciably changed. Upper lung zone s are clear. No pneumothorax. ADDITIONAL FINDINGS: No significant additional findings. IMPRESSION: 1. Stable bibasilar parenchymal disease. 2. Repositioning of ET tube. The tip is now 6.4 cm from the robbi. Signer Name: Halima Nolasco MD Signed: 04/07/2020 1:44 AM Workstation Name: [email or web address]
--- NOTE | 2020-04-07 01:48 | XRay Report ---
ABDOMEN, SINGLE VIEW INDICATION / CLINICAL INFORMATION: follow up respiratory failure. COMPARISON: None available. FINDINGS: NG tube is present. The tip is projecting in the proximal to midportion of the stomach and is well po sitioned. CHEST 1 VIEW INDICATION / CLINICAL INFORMATION: follow up respiratory failure. COMPARISON: 04/06/2020 at 0325 hours FINDINGS: SUPPORT DEVICES: ET tube has been pulled back since the earlier chest radiograph. The tip is now appr oximately 6.4 cm from the robbi. Right subclavian central line is present with tip projecting at the cavoatrial junction. HEART / MEDIASTINUM: No significant abnormality. LUNGS / PLEURA: Bibasilar parenchymal disease is again noted not appreciably changed. Upper lung zone s are clear. No pneumothorax. ADDITIONAL FINDINGS: No significant additional findings. IMPRESSION: 1. Stable bibasilar parenchymal disease. 2. Repositioning of ET tube. The tip is now 6.4 cm from the robbi. Signer Name: aHlima Nolasco MD Signed: 04/07/2020 1:44 AM Workstation Name: [email or web address]
--- NOTE | 2020-04-07 03:58 | XRay Report ---
CHEST 1 VIEW INDICATION / CLINICAL INFORMATION: for ETT placement- RT advanced OETT 2cm. COMPARISON: 04/07/2020 at 0130 hours FINDINGS: SUPPORT DEVICES: Endotracheal tube is been advanced since the earlier chest radiograph. The tip is ap proximately 5 cm from the robbi. HEART / MEDIASTINUM: No significant abnormality. LUNGS / PLEURA: Mild bibasilar proximal disease is grossly stable. No pneumothorax. ADDITIONAL FINDINGS: No significant additional findings. IMPRESSION: 1. Slight advancement of the ET tube with tip now 5 cm from robbi. Signer Name: Halima Nolasco MD Signed: 04/07/2020 3:53 AM Workstation Name: [email or web address]
[2020-04-07] MEDS ORDERED: fentaNYL 100 MCG/2 ML INJ IV ONE (04:26)
[2020-04-07] MEDS: fentaNYL DRIP Premix 2,000 MCG/100 ML BAG IV SCH ×4 (04:37→22:25)
--- NOTE | 2020-04-07 09:06 | Consultation ---
History of Present Illness - Reason for Consult Consult date: 04/07/20 Sepsis, pneumonia, UTI Requesting physician: SHARI MATA - History of Present Illness 49 years old female with history of asthma, hypertension, end-stage renal disease on hemodialysis, diabetes mellitus, bipolar disorder, morbid obesity, CVA, resident of a [facility], admitted on 04/06/2020 secondary to be found Unresponsiveness after hemodialysis. Patient is unable to provide history, currently intubated. Patient received hemodialysis and after completion she became unresponsive. Upon EMS arrival, blood pressure was 90/60, HR 88, temperature 97.2. Per records, patient was not complaining of any symptoms. On arrival, temperature 94.1, HR 66, RR 18, O2 sat 87%, BP 131/111. Initial WBC 19.2. Urinalysis showed more than 182 WBCs and moderate leukocyte esterase. Chest x-ray shows bibasilar infiltrates. Patient was intubated in the emergency room to protect airway. Bains catheter was placed yielding purulent urine. Review of Systems: reviewed ED and H&P notes. Limited due to PPE conservation strategy Past History Past Medical History: diabetes, ESRD, hypertension, stroke, other (See HPI) Past Surgical History: Other (Bilateral foot amputations) Social history: single. denies: smoking, alcohol abuse, prescription drug abuse Family history: hypertension Medications and Allergies Allergies Allergy/AdvReac Type Severity Reaction Status Date / Time carrot Allergy Hives Verified 07/28/19 12:30 erythromycin base Allergy Hives Verified 07/30/19 11:26 latex Allergy Rash Verified 02/18/19 13:20 peas Allergy Hives Verified 12/20/19 12:37 vancomycin Allergy Hives Verified 12/31/19 15:46 Home Medications Medication Instructions Recorded Confirmed Last Taken Type Aripiprazole 5 mg PO DAILY 02/18/19 04/06/20 02/17/19 History Benadryl CAP 25 mg PO Q8H PRN 02/18/19 04/06/20 02/17/19 History Calcium Acetate 667 mg PO TIDWM 02/18/19 04/06/20 02/17/19 History Carvedilol 6.25 mg PO Q12H 02/18/19 04/06/20 02/17/19 History Colace CAP 100 mg PO Q12H PRN 0904/06/20 02/17/19 History Esomeprazole Magnesium 40 mg PO QDAC 02/18/19 04/06/20 02/17/19 History HumaLOG 10 units SUB-Q TIDWM 02/18/19 04/06/20 02/17/19 History Insulin Detemir (Nf) [Levemir See Protocol SQ QHS 02/18/19 04/06/20 02/17/19 History Flextouch (Nf)] Losartan Potassium 50 mg PO DAILY 02/18/19 04/06/20 02/17/19 History Lyrica 75 mg PO Q12H 02/18/19 04/06/20 02/17/19 History Melatonin 6 mg PO QHS 02/18/19 04/06/20 02/17/19 History Senna 17.2 mg PO QHS PRN 02/18/19 04/06/20 02/17/19 History Venlafaxine HCl [Venlafaxine HCl 150 mg PO QDAC 02/18/19 04/06/20 02/17/19 History ER] Vitamin C 250 mg PO DAILY 02/18/19 04/06/20 02/17/19 History ZyrTEC 10mg cap 10 mg PO DAILY 02/18/19 04/06/20 02/17/19 History Calcium Acetate [Phoslo] 667 mg PO TIDWM capsule 12/22/19 04/06/20 Unknown Rx Fe Fumarate/FA/Mv, Min Comb#15 1 each PO QDAY capsule 12/22/19 04/06/20 Unknown Rx [Hemocyte Plus] Albuterol Mdi (or & Nicu Only) 2.5 puff IH Q4HRT PRN inha 01/12/20 04/06/20 Unknown Rx [ProAir HFA Inhaler] dexAMETHasone [Decadron] 6 mg PO Q12HR #10 tablet 01/12/20 04/06/20 Unknown Rx oxyCODONE 5 mg PO Q6H PRN #10 01/12/20 04/06/20 Unknown Rx Active Meds: Active Medications Acetaminophen (Tylenol) 650 mg PO Q6H PRN PRN Reason: Pain, Mild (1-3) Famotidine (Pepcid) 20 mg PO QDAY NOEL Fentanyl (Sublimaze) 50 mcg IV Q10MIN PRN PRN Reason: ANALGESIA Heparin Sodium (Porcine) (Heparin) 5,000 unit SUB-Q Q12HR NOEL Last Admin: 04/06/20 22:05 Dose: 5,000 unit Documented by: Hydromorphone HCl (Dilaudid) 0.25 mg IV Q4H PRN PRN Reason: Pain, Moderate (4-6) Hydrophilic Ointment (Vaseline Lip Therapy) 1 applic TP Q2HR PRN PRN Reason: Dry Lips Fentanyl Citrate (Fentanyl Drip Premix) 2,000 mcg in 100 mls @ 5.505 mls/hr IV TITR NOEL; Protocol Last Titration: 04/07/20 04:52 Dose: 4 mcg/kg/hr, 22.02 mls/hr Documented by: Nicardipine/Sodium Chloride (Cardene Drip 40 Mg/200 Ml) 40 mg in 200 mls @ 25 mls/hr IV TITR NOEL; Protocol Last Titration: 04/06/20 23:23 Dose: Infused Documented by: Cefepime HCl (Cefepime/Ns 1 Gm/100 Ml) 1 gm in 100 mls @ 200 mls/hr IV Q24H NOEL; Protocol Last Admin: 04/06/20 21:31 Dose: 200 mls/hr Documented by: Levofloxacin/Dextrose (Levaquin 750mg/150ml) 750 mg in 150 mls @ 100 mls/hr IV ONCE NOEL; Protocol Stop: 04/07/20 10:00 Levofloxacin/Dextrose (Levaquin 500mg/100ml) 500 mg in 100 mls @ 100 mls/hr IV Q48H NOEL; Protocol Multi-Ingred Cream/Lotion/Oil/Oint (Artificial Tears Ophth Oint) 1 applic OU Q4HR PRN PRN Reason: Dry Eye(s) Sodium Chloride (Sodium Chloride Flush Syringe 10 Ml) 10 ml IV BID NOEL Last Admin: 04/06/20 21:53 Dose: 10 ml Documented by: Sodium Chloride (Sodium Chloride Flush Syringe 10 Ml) 10 ml IV PRN PRN PRN Reason: LINE FLUSH Physical Examination - Physical Exam Narrative exam: Physical Exam: reviewed ED and hospitalist notes, limited due to conservation of PPE and decrease risk of transmission. General appearance: limited due to conservation of PPE Eyes: limited due to conservation of PPE HENT: Atraumatic; limited due to conservation of PPE Lungs: limited due to conservation of PPE CV: limited due to conservation of PPE Abdomen: limited due to conservation of PPE Extremities: limited due to conservation of PPE Skin: limited due to conservation of PPE Psych: limited due to conservation of PPE Neuro: limited due to conservation of PPE - Constitutional Vitals: Vital Signs Temp Pulse Resp BP Pulse Ox 98.4 F 73 20 150/43 99 04/07/20 03:56 04/07/20 07:56 04/07/20 06:21 04/07/20 07:56 04/07/20 07:56 Temperature -Last 24 Hours Temperature 98.4 F Temperature 99.9 F Temperature 99.9 F Temperature 99.9 F Temperature 98.1 F Temperature 94.1 F Results - Labs CBC & Chem 7: 04/06/20 14:30 04/06/20 14:30 Labs: Abnormal lab results 04/06/20 04/06/20 04/06/20 Range/Units 13:34 14:30 14:30 WBC 19.2 H (4.5-11.0) K/mm3 RDW 17.8 H (13.2-15.2) % Seg Neuts % (Manual) 90.0 H (40.0-70.0) % Lymphocytes % (Manual) 4.0 L (13.4-35.0) % Seg Neutrophils # Man 17.3 H (1.8-7.7) K/mm3 Lymphocytes # (Manual) 0.8 L (1.2-5.4) K/mm3 ABG pH (7.350-7.450) pH Units POC ABG pO2 (83-108) mmHg ABG pO2 (80.0-90.0) mm Hg ABG HCO3 (20.0-26.0) mmol/L ABG Base Excess (-2.0-3.0) mmol/L ABG Hemoglobin (12.0-16.0) gm/dl ABG Chloride (98-107) mmol/L Potassium 5.2 H (3.6-5.0) mmol/L Carbon Dioxide 17 L (22-30) mmol/L BUN 53 H (7-17) mg/dL Creatinine 7.8 H (0.6-1.2) mg/dL Glucose 144 H (65-100) mg/dL POC Glucose (70-105) mg/dL Magnesium (1.7-2.3) mg/dL Alkaline Phosphatase 738 H (35-129) units/L Total Creatine Kinase 23 L (30-135) units/L Troponin T 0.224 H* (0.00-0.029) ng/mL Albumin 3.1 L (3.9-5) g/dL Triglycerides 342 H (2-149) mg/dL Cholesterol 223 H (50-199) mg/dL HDL Cholesterol 35 L (40-59) mg/dL Urine WBC (Auto) > 182.0 H (0.0-6.0) /HPF Salicylates (2.8-20.0) mg/dL Acetaminophen (10.0-30.0) ug/mL 04/06/20 04/06/20 04/06/20 Range/Units 14:30 14:30 14:30 WBC (4.5-11.0) K/mm3 RDW (13.2-15.2) % Seg Neuts % (Manual) (40.0-70.0) % Lymphocytes % (Manual) (13.4-35.0) % Seg Neutrophils # Man (1.8-7.7) K/mm3 Lymphocytes # (Manual) (1.2-5.4) K/mm3 ABG pH (7.350-7.450) pH Units POC ABG pO2 (83-108) mmHg ABG pO2 (80.0-90.0) mm Hg ABG HCO3 (20.0-26.0) mmol/L ABG Base Excess (-2.0-3.0) mmol/L ABG Hemoglobin (12.0-16.0) gm/dl ABG Chloride (98-107) mmol/L Potassium (3.6-5.0) mmol/L Carbon Dioxide (22-30) mmol/L BUN (7-17) mg/dL Creatinine (0.6-1.2) mg/dL Glucose (65-100) mg/dL POC Glucose (70-105) mg/dL Magnesium 2.50 H (1.7-2.3) mg/dL Alkaline Phosphatase (35-129) units/L Total Creatine Kinase 24 L (30-135) units/L Troponin T (0.00-0.029) ng/mL Albumin (3.9-5) g/dL Triglycerides (2-149) mg/dL Cholesterol (50-199) mg/dL HDL Cholesterol (40-59) mg/dL Urine WBC (Auto) (0.0-6.0) /HPF Salicylates < 0.3 L (2.8-20.0) mg/dL Acetaminophen 5.0 L (10.0-30.0) ug/mL 04/06/20 04/06/20 04/07/20 Range/Units 14:39 20:00 00:48 WBC (4.5-11.0) K/mm3 RDW (13.2-15.2) % Seg Neuts % (Manual) (40.0-70.0) % Lymphocytes % (Manual) (13.4-35.0) % Seg Neutrophils # Man (1.8-7.7) K/mm3 Lymphocytes # (Manual) (1.2-5.4) K/mm3 ABG pH 7.281 L 7.306 L (7.350-7.450) pH Units POC ABG pO2 78.0 L (83-108) mmHg ABG pO2 133.8 H (80.0-90.0) mm Hg ABG HCO3 18.3 L (20.0-26.0) mmol/L ABG Base Excess -7.8 L (-2.0-3.0) mmol/L ABG Hemoglobin 10.8 L 10.8 L (12.0-16.0) gm/dl ABG Chloride 108.0 H (98-107) mmol/L Potassium (3.6-5.0) mmol/L Carbon Dioxide (22-30) mmol/L BUN (7-17) mg/dL Creatinine (0.6-1.2) mg/dL Glucose (65-100) mg/dL POC Glucose 69 L (70-105) mg/dL Magnesium (1.7-2.3) mg/dL Alkaline Phosphatase (35-129) units/L Total Creatine Kinase (30-135) units/L Troponin T (0.00-0.029) ng/mL Albumin (3.9-5) g/dL Triglycerides (2-149) mg/dL Cholesterol (50-199) mg/dL HDL Cholesterol (40-59) mg/dL Urine WBC (Auto) (0.0-6.0) /HPF Salicylates (2.8-20.0) mg/dL Acetaminophen (10.0-30.0) ug/mL Assessment and Plan Cultures: Blood culture pending Urine culture pending Assessment: 49 years old female with history of asthma, hypertension, end-stage renal disease on hemodialysis, diabetes mellitus, bipolar disorder, morbid obe sity, CVA, resident of a [facility], admitted on 04/06/2020 secondary to be found unresponsiveness after hemodialysis: #Severe sepsis: Present on admission with hypothermia, leukocytosis, altered m ental status, likely due to bilateral pneumonia. #Bilateral pneumonia: Aspiration pneumonia/HAP however should rule out COVID-19 pneumonia. #Severe UTI: Bains catheter with purulent urine. #Acute hypoxemic respiratory failure: Intubated for airway protection, O2 sats down to 87% #Acute encephalopathy: Likely due to sepsis #End-stage renal disease on hemodialysis #Extensive Candidal intertrigo in groin and vagina Recommendations: -Follow-up blood culture -Follow urine culture -Obtain sputum culture -Obtain SARS-CoV-2 PCR -Continue cefepime 1 g IV once a day -Continue vancomycin with PK consult -Stop Levaquin -Start fluconazole 100 mg IV qday for 3 days All laboratory, cultures and imaging were reviewed. Will follow Shirley Schmitt MD Infectious Diseases [employer]ing [employer] [facility] M [phone] O [phone]
[2020-04-07] MEDS: HEPARIN 5,000 UNIT/1 ML VIAL SUB-Q SCH ×2 (09:37→21:38)
[2020-04-07] MEDS: FAMOTIDINE 20 MG TAB PO SCH (09:37)
[2020-04-07] MEDS ORDERED: VANCOMYCIN PHARMACY TO DOSE IV SCH (10:00)
[2020-04-07] MEDS: FLUCONAZOLE/NS 100 MG/50 ML 100 MG/50 ML BAG IV SCH (10:06)
[2020-04-07] MEDS: SODIUM CHLORIDE 0.9% 250ML 250 ML IV PRN (10:14)
[2020-04-07] MEDS ORDERED: SODIUM BICARBONATE 325 MG TAB FEEDTUBE PRN (10:23)
[2020-04-07] MEDS ORDERED: SIMPLE SYRUP 15 ML FEEDTUBE PRN ×2 (10:23)
[2020-04-07] MEDS ORDERED: LIPASE 10,500/PROTEASE 25,000/AMYLASE 43,750 (UNITS) DR CAP FEEDTUBE PRN (10:23)
[2020-04-07 10:24] LABS: C-Reactive Protein 7.5 mg/dL (0.00-1.30)
[2020-04-07] MEDS: LINEZOLID 600 MG/300 ML BAG IV SCH ×2 (10:27→21:32)
--- NOTE | 2020-04-07 12:07 | Progress Note ---
Assessment and Plan Assessment and plan: Severe sepsis. Present on admission with hypothermia, leukocytosis, altered mental status, likely due to bilateral pneumonia. F/U Blood Cx. Cont. Abx pre ID Bilateral pneumonia. Aspiration pneumonia/HAP F/U COVID-19 testing Severe UTI. Bains catheter with purulent urine. Acute hypoxemic respiratory failure. Intubated for airway protection, O2 sats down to 87%. Toxic metabolic encephalopathy. Etiology secondary to sepsis End-stage renal disease on hemodialysis Extensive Candidal intertrigo in groin and vagina. Cont. Fluconazole The high probability of a clinically significant, sudden or life threatening deterioration of the [respiratory] system(s) required my full and direct attent ion, intervention and personal management. The aggregate critical care time was [33] minutes. This time is in addition to time spent performing reported procedures but includes the following: [x] Data Review and interpretation [x] Patient assessment and monitoring of vital signs [x] Documentation [x] Medication orders and management History Interval history: 49 years old female with history of asthma, hypertension, end-stage renal disease on hemodialysis, diabetes mellitus, bipolar disorder, morbid obesity, CVA, resident of a long term, admitted on 04/06/2020 secondary to be found Unresponsiveness after hemodialysis. Patient is unable to provide history, currently intubated. Patient received hemodialysis and after completion she became unresponsive. Upon EMS arrival, blood pressure was 90/60, HR 88, temperature 97.2. Per records, patient was not complaining of any symptoms. On arrival, temperature 94.1, HR 66, RR 18, O2 sat 87%, BP 131/111. Initial WBC 19.2. Urinalysis showed more than 182 WBCs and moderate leukocyte esterase. Chest x-ray shows bibasilar infiltrates. Patient was intubated in the emergency room to protect airway. Bains catheter was placed yielding purulent urine. Hospitalist Physical - Constitutional Vitals: Temp Pulse Resp BP Pulse Ox 98.4 F 87 20 146/53 97 04/07/20 03:56 04/07/20 11:45 04/07/20 11:45 04/07/20 11:45 04/07/20 11:45 General appearance: Present: severe distress - EENT Eyes: Present: PERRL, EOM intact ENT: hearing intact, clear oral mucosa, dentition normal - Neck Neck: Present: supple, normal ROM - Respiratory Respiratory effort: normal Respiratory: bilateral: CTA - Cardiovascular Rhythm: regular Heart Sounds: Present: S1 & S2. Absent: gallop, rub - Extremities Extremities: no ischemia, No edema, Full ROM - Abdominal General gastrointestinal: soft, non-tender, non-distended, normal bowel sounds - Integumentary Integumentary: Present: clear, warm, dry - Neurologic Neurologic: CNII-XII intact, moves all extremities HEART Score - HEART Score Troponin: Troponin T 0.224 ng/mL (0.00-0.029) H* 04/06/20 14:30 Results - Labs CBC & Chem 7: 04/06/20 14:30 04/06/20 14:30 Labs: Laboratory Last Values WBC 19.2 K/mm3 (4.5-11.0) H 04/06/20 14:30 RBC 3.79 M/mm3 (3.65-5.03) 04/06/20 14:30 Hgb 10.9 gm/dl (10.1-14.3) 04/06/20 14:30 Hct 35.0 % (30.3-42.9) 04/06/20 14:30 MCV 92 fl (79-97) 04/06/20 14:30 MCH 29 pg (28-32) 04/06/20 14:30 MCHC 31 % (30-34) 04/06/20 14:30 RDW 17.8 % (13.2-15.2) H 04/06/20 14:30 Plt Count 425 K/mm3 (140-440) 04/06/20 14:30 Add Manual Diff Complete 04/06/20 14:30 Total Counted 100 04/06/20 14:30 Seg Neuts % (Manual) 90.0 % (40.0-70.0) H 04/06/20 14:30 Band Neutrophils % 1.0 % 04/06/20 14:30 Lymphocytes % (Manual) 4.0 % (13.4-35.0) L 04/06/20 14:30 Reactive Lymphs % (Man) 0 % 04/06/20 14:30 Monocytes % (Manual) 3.0 % (0.0-7.3) 04/06/20 14:30 Eosinophils % (Manual) 2.0 % (0.0-4.3) 04/06/20 14:30 Basophils % (Manual) 0 % (0.0-1.8) 04/06/20 14:30 Metamyelocytes % 0 % 04/06/20 14:30 Myelocytes % 0 % 04/06/20 14:30 Promyelocytes % 0 % 04/06/20 14:30 Blast Cells % 0 % 04/06/20 14:30 Nucleated RBC % Not Reportable 04/06/20 14:30 Seg Neutrophils # Man 17.3 K/mm3 (1.8-7.7) H 04/06/20 14:30 Band Neutrophils # 0.2 K/mm3 04/06/20 14:30 Lymphocytes # (Manual) 0.8 K/mm3 (1.2-5.4) L 04/06/20 14:30 Abs React Lymphs (Man) 0.0 K/mm3 04/06/20 14:30 Monocytes # (Manual) 0.6 K/mm3 (0.0-0.8) 04/06/20 14:30 Eosinophils # (Manual) 0.4 K/mm3 (0.0-0.4) 04/06/20 14:30 Basophils # (Manual) 0.0 K/mm3 (0.0-0.1) 04/06/20 14:30 Metamyelocytes # 0.0 K/mm3 04/06/20 14:30 Myelocytes # 0.0 K/mm3 04/06/20 14:30 Promyelocytes # 0.0 K/mm3 04/06/20 14:30 Blast Cells # 0.0 K/mm3 04/06/20 14:30 WBC Morphology Not Reportable 04/06/20 14:30 Hypersegmented Neuts Not Reportable 04/06/20 14:30 Hyposegmented Neuts Not Reportable 04/06/20 14:30 Hypogranular Neuts Not Reportable 04/06/20 14:30 Smudge Cells Not Reportable 04/06/20 14:30 Toxic Granulation Not Reportable 04/06/20 14:30 Toxic Vacuolation Not Reportable 04/06/20 14:30 Dohle Bodies Not Reportable 04/06/20 14:30 Pelger-Huet Anomaly Not Reportable 04/06/20 14:30 Stephanie Rods Not Reportable 04/06/20 14:30 Platelet Estimate Consistent w auto 04/06/20 14:30 Clumped Platelets Not Reportable 04/06/20 14:30 Plt Clumps, EDTA Not Reportable 04/06/20 14:30 Large Platelets Not Reportable 04/06/20 14:30 Giant Platelets Not Reportable 04/06/20 14:30 Platelet Satelliting Not Reportable 04/06/20 14:30 Plt Morphology Comment Not Reportable 04/06/20 14:30 RBC Morphology Not Reportable 04/06/20 14:30 Dimorphic RBCs Not Reportable 04/06/20 14:30 Polychromasia Not Reportable 04/06/20 14:30 Hypochromasia Not Reportable 04/06/20 14:30 Poikilocytosis Not Reportable 04/06/20 14:30 Anisocytosis Few 04/06/20 14:30 Microcytosis Not Reportable 04/06/20 14:30 Macrocytosis Few 04/06/20 14:30 Spherocytes Not Reportable 04/06/20 14:30 Pappenheimer Bodies Not Reportable 04/06/20 14:30 Sickle Cells Not Reportable 04/06/20 14:30 Target Cells Not Reportable 04/06/20 14:30 Tear Drop Cells Not Reportable 04/06/20 14:30 Ovalocytes Not Reportable 04/06/20 14:30 Helmet Cells Not Reportable 04/06/20 14:30 Barroso-Hinckley Bodies Not Reportable 04/06/20 14:30 Naselle Rings Not Reportable 04/06/20 14:30 Michael Cells Not Reportable 04/06/20 14:30 Bite Cells Not Reportable 04/06/20 14:30 Crenated Cell Not Reportable 04/06/20 14:30 Elliptocytes Not Reportable 04/06/20 14:30 Acanthocytes (Spur) Not Reportable 04/06/20 14:30 Rouleaux Not Reportable 04/06/20 14:30 Hemoglobin C Crystals Not Reportable 04/06/20 14:30 Schistocytes Not Reportable 04/06/20 14:30 Malaria parasites Not Reportable 04/06/20 14:30 Lc Bodies Not Reportable 04/06/20 14:30 Hem Pathologist Commnt No 04/06/20 14:30 PT 13.8 Sec. (12.2-14.9) 04/06/20 14:30 INR 1.04 (0.87-1.13) 04/06/20 14:30 APTT 28.1 Sec. (24.2-36.6) 04/06/20 14:30 D-Dimer 1063.66 ng/mlDDU (0-234) H 04/07/20 09:34 ABG pH 7.338 (7.320-7.450) 04/07/20 10:01 POC ABG pCO2 34.4 mmHg (32.0-48.0) 04/07/20 10:01 ABG pCO2 39.8 mm Hg 04/06/20 14:39 POC ABG pO2 79.8 mmHg (83-108) L 04/07/20 10:01 ABG pO2 133.8 mm Hg (80.0-90.0) H 04/06/20 14:39 POC ABG HCO3 18.1 04/07/20 10:01 ABG HCO3 18.3 mmol/L (20.0-26.0) L 04/06/20 14:39 ABG O2 Saturation 98.4 % (95.0-99.0) 04/06/20 14:39 ABG O2 Content 14.9 (0.0-44) 04/06/20 14:39 POC ABG Base Excess -7.0 04/07/20 10:01 ABG Base Excess -7.8 mmol/L (-2.0-3.0) L 04/06/20 14:39 ABG Hemoglobin 10.3 (12.0-17.5) L 04/07/20 10:01 ABG Carboxyhemoglobin 1.7 % (0.0-5.0) 04/06/20 14:39 ABG Methemoglobin 0.6 % (0.0-1.5) 04/06/20 14:39 ABG Sodium 142.8 mmol/L (136.0-145.0) 04/07/20 10:01 ABG Potassium 4.1 mmol/L (3.40-4.50) 04/07/20 10:01 ABG Chloride 109.0 mmol/L (98-107) H 04/07/20 10:01 ABG Glucose 79 mg/dL (65-95) 04/07/20 10:01 Oxyhemoglobin 96.1 % (95.0-99.0) 04/06/20 14:39 FiO2 50.0 04/07/20 10:01 Sodium 141 mmol/L (137-145) 04/06/20 14:30 Potassium 5.2 mmol/L (3.6-5.0) H 04/06/20 14:30 Chloride 103.7 mmol/L (98-107) 04/06/20 14:30 Carbon Dioxide 17 mmol/L (22-30) L 04/06/20 14:30 Anion Gap 26 mmol/L 04/06/20 14:30 BUN 53 mg/dL (7-17) H 04/06/20 14:30 Creatinine 7.8 mg/dL (0.6-1.2) H 04/06/20 14:30 Estimated GFR 5 ml/min 04/06/20 14:30 BUN/Creatinine Ratio 7 % 04/06/20 14:30 Glucose 144 mg/dL (65-100) H 04/06/20 14:30 POC Glucose 83 mg/dL (70-105) 04/07/20 05:30 Lactic Acid 1.00 mmol/L (0.7-2.0) 04/06/20 23:09 Calcium 8.9 mg/dL (8.4-10.2) 04/06/20 14:30 Magnesium 2.50 mg/dL (1.7-2.3) H 04/06/20 14:30 Ferritin 743.0 ng/mL (10.0-200.0) H 04/07/20 09:34 Total Bilirubin 0.30 mg/dL (0.1-1.2) 04/06/20 14:30 AST 39 units/L (5-40) 04/06/20 14:30 ALT 21 units/L (7-56) 04/06/20 14:30 Alkaline Phosphatase 738 units/L (35-129) H 04/06/20 14:30 Ammonia 43.0 umol/L (25-60) 04/06/20 14:30 Lactate Dehydrogenase 195 units/L (91-180) H 04/07/20 09:34 Total Creatine Kinase 23 units/L (30-135) L 04/06/20 14:30 Total Creatine Kinase 24 units/L (30-135) L 04/06/20 14:30 Troponin T 0.224 ng/mL (0.00-0.029) H* 04/06/20 14:30 C-Reactive Protein 7.50 mg/dL (0.00-1.30) H 04/07/20 09:34 Total Protein 8.1 g/dL (6.3-8.2) 04/06/20 14:30 Albumin 3.1 g/dL (3.9-5) L 04/06/20 14:30 Albumin/Globulin Ratio 0.6 % 04/06/20 14:30 Triglycerides 342 mg/dL (2-149) H 04/06/20 14:30 Cholesterol 223 mg/dL (50-199) H 04/06/20 14:30 LDL Cholesterol Direct 123 mg/dL (50-130) 04/06/20 14:30 HDL Cholesterol 35 mg/dL (40-59) L 04/06/20 14:30 Cholesterol/HDL Ratio 6.37 % 04/06/20 14:30 TSH 1.320 mlU/mL (0.270-4.200) 04/06/20 14:30 HCG, Qual Negative (Negative) 04/06/20 14:30 Arterial Blood Glucose 79 mg/dL (65-95) 04/07/20 10:01 Arterial Blood Ionized Calcium 4.5 mg/dL (4.6-5.3) L 04/07/20 10:01 Urine Color Yellow (Yellow) 04/06/20 13:34 Urine Turbidity Turbid (Clear) 04/06/20 13:34 Urine pH 7.0 (5.0-7.0) 04/06/20 13:34 Ur Specific [place] 1.017 (1.003-1.030) 04/06/20 13:34 Urine Protein 100 mg/dl mg/dL (Negative) 04/06/20 13:34 Urine Glucose (UA) 50 mg/dL (Negative) 04/06/20 13:34 Urine Ketones Tr mg/dL (Negative) 04/06/20 13:34 Urine Blood Sm (Negative) 04/06/20 13:34 Urine Nitrite Neg (Negative) 04/06/20 13:34 Urine Bilirubin Neg (Negative) 04/06/20 13:34 Urine Urobilinogen < 2.0 mg/dL (<2.0) 04/06/20 13:34 Ur Leukocyte Esterase Mod (Negative) 04/06/20 13:34 Urine WBC (Auto) > 182.0 /HPF (0.0-6.0) H 04/06/20 13:34 Urine RBC (Auto) 49.0 /HPF (0.0-6.0) 04/06/20 13:34 U Epithel Cells (Auto) 6.0 /HPF (0-13.0) 04/06/20 13:34 Urine Bacteria (Auto) 2+ /HPF (Negative) 04/06/20 13:34 Urine WBC Clumps 3+ /HPF 04/06/20 13:34 Urine Mucus 3+ /HPF 04/06/20 13:34 Salicylates < 0.3 mg/dL (2.8-20.0) L 04/06/20 14:30 Acetaminophen 5.0 ug/mL (10.0-30.0) L 04/06/20 14:30 Plasma/Serum Alcohol < 0.01 % (0-0.07) 04/06/20 14:30 Blood Type O POSITIVE 04/06/20 14:30 Antibody Screen Negative 04/06/20 14:30 Microbiology: Microbiology 04/06/20 Unknown Urine,Catheterized - Indwelling Catheter Urine Culture - Preliminary 04/06/20 14:30 Peripheral/Venous Blood Culture - Preliminary Culture in Progress 04/06/20 14:30 Peripheral/Venous Blood Culture - Preliminary Culture in Progress Bains/IV: Voiding Method Indwelling Catheter IV Catheter Type [Left INT / Saline Lock Antecubital] IV Catheter Type [Right INT / Saline Lock Forearm] Active Medications - Current Medications Current Medications: Generic Name Dose Route Start Last Admin Trade Name Freq PRN Reason Stop Dose Admin Acetaminophen 650 mg 04/06/20 16:39 Tylenol PO Q6H PRN Pain, Mild (1-3) Lipase/Protease/Amylase 1 each 04/07/20 10:23 Pancreshadi Reyes 10,500 Unit FEEDTUBE PRN PRN For Clogged Feeding Tube Famotidine 20 mg 04/07/20 10:00 04/07/20 09:37 Pepcid PO 20 mg QDAY NOEL Administration Fentanyl 50 mcg 04/06/20 13:34 Sublimaze IV Q10MIN PRN ANALGESIA Heparin Sodium (Porcine) 5,000 unit 04/06/20 22:00 04/07/20 09:37 Heparin SUB-Q 5,000 unit Q12HR NOEL Administration Hydromorphone HCl 0.25 mg 04/06/20 16:39 Dilaudid IV Q4H PRN Pain, Moderate (4-6) Hydrophilic Ointment 1 applic 04/06/20 13:34 Vaseline Lip Therapy TP Q2HR PRN Dry Lips Fentanyl Citrate 2,000 mcg in 100 mls @ 5.505 mls/hr 04/06/20 14:00 04/07/20 11:50 Fentanyl Drip Premix IV 3 mcg/kg/hr TITR NOEL 16.515 mls/hr Titration Protocol 1 MCG/KG/HR Nicardipine/Sodium Chloride 40 mg in 200 mls @ 25 mls/hr 04/06/20 17:00 04/06/20 23:23 Cardene Drip 40 Mg/200 Ml IV Infused TITR NOEL Titration Protocol 5 MG/HR Cefepime HCl 1 gm in 100 mls @ 200 mls/hr 04/06/20 20:00 04/06/20 21:31 Cefepime/Ns 1 Gm/100 Ml IV 200 mls/hr Q24H NOEL Administration Protocol Fluconazole 100 mg in 50 mls @ 50 mls/hr 04/07/20 10:00 04/07/20 10:06 Diflucan/Ns 100 Mg/50 Ml IV 04/09/20 10:59 50 mls/hr Q24HR NOEL Administration Protocol Linezolid 600 mg in 300 mls @ 300 mls/hr 04/07/20 10:00 04/07/20 10:27 Zyvox 600mg/300ml IV 300 mls/hr Q12HR NOEL Administration Protocol Sodium Chloride 250 mls @ 10 mls/hr 04/07/20 10:03 04/07/20 10:14 Nacl 0.9% 250ml IV 10 mls/hr DIRECT PRN Administration FOR ABX Multi-Ingred Cream/Lotion/Oil/Oint 1 applic 04/06/20 13:34 Artificial Tears Ophth Oint OU Q4HR PRN Dry Eye(s) Simple Syrup 15 ml 04/07/20 10:23 Simple Syrup FEEDTUBE PRN PRN Hypoglycemia Simple Syrup 30 ml 04/07/20 10:23 Simple Syrup FEEDTUBE PRN PRN Hypoglycemia Sodium Bicarbonate 325 mg 04/07/20 10:23 Sodium Bicarbonate FEEDTUBE PRN PRN For Clogged Feeding Tube Sodium Chloride 10 ml 04/06/20 22:00 04/07/20 09:38 Sodium Chloride Flush Syringe 10 Ml IV 10 ml BID NOEL Administration Sodium Chloride 10 ml 04/06/20 16:32 Sodium Chloride Flush Syringe 10 Ml IV PRN PRN LINE FLUSH Nutrition/Malnutrition Assess - Dietary Evaluation Nutrition/Malnutrition Findings: Nutrition Notes Start: 04/07/20 08:19 Freq: Status: Active Protocol: Document 04/07/20 10:09 AL (Rec: 04/07/20 10:26 AL [id number]) Co-Sign 04/07/20 10:09 MK Nutrition Notes Need for Assessment generated from: 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,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 Yes Is Patient Ambulatory and/or Out of Bed No REE-([facility]-confined to bed) 2063.820 Kcal/Kg value to use for calculation 16 Approximate Energy Requirements Using 1762 kcal/Kg Calculation Used for Recommendations Kcal/kg Additional Notes Protein Needs: up to 142 g (up to 2.5 g/kg IBW) Fluid Needs: 1 mL/kcal Nutrition Intervention Change Diet Order: TF Nutrition Support: [place] 1.8 at 40 mL/hr (goal rate Flush 170 mL q4h Kcal 1,728 Protein (gm) 78 Fluid (mL) 698 Goal #1 Initiate TF Goal #2 Meet estimated energy and protein needs as best as possible via TF Anticipated Discharge Needs: Unable to determine at this time
--- NOTE | 2020-04-07 15:04 | Progress Note ---
Assessment and Plan Acute on chronic hypoxemic and hypercapnic respiratory failure. Coronavirus-19 infection. Acute encephalopathy. Bibasilar atelectasis. End-stage renal disease, on dialysis. Morbid obesity. History of a cerebrovascular accident. Diabetes type 2. History of chronic obstructive pulmonary disease. History of anemia. - advance ETT to 26 cm PARRISH - reduced set rate to 12/min - tentatively begin SBT's in am - continue care as below otherwise; - continue Daily SAT and SBT assessment as tolerated - continue to wean supplemental oxygen for target O2 sat's > 90% acutely - VAP bundle addressed - continue lung protective strategies - continue bronchodilators with pulmonary hygiene per RT - wean per pulmonary driven protocols otherwise - continue accuchecks with glycemic control per SSI (While critically ill target blood glucose of 140-180 mg/dL; avoid hypoglycemia) - sedation prn for target RASS 0 to -1 - avoid nephrotoxins, renally dose all medications - continue to avoid benzodiazepine's, reduce the possibility of delirium - complete AB's per ID rec's - prn analgesia per CPOT score - Maintenance of sleep-wake cycle, avoid delirium - continue enteral nutritional support at goal rate as tolerated - G.I. & VTE prophylaxis - PT/OT/ROM exercises - continue mobility protocols for pressure ulcer prophylaxis - Monitor hemodynamics closely - continue other care per attending / other consultants - discharge planning ongoing concurrently .... Re-evaluate in am & prn CONDITION: CRITICAL PROGNOSIS: GUARDED CODE STATUS: FULL CODE The high probability of a clinically significant, sudden or life-threatening deterioration of the [respiratory, cardiovascular, renal & neurologic] system(s) required my full and direct attention, intervention and personal management. The aggregate critical care time was [34] minutes without overlap. Time includes spent on; [x] Data Review and interpretation [x] Patient assessment and monitoring of vital signs [x] Documentation [x] Medication orders and management Subjective Date of service: 04/07/20 Principal diagnosis: Ac on ch hypoxemic and hypercapnic resp failure; PUI COVID- 19 infxn; AMS Interval history: Patient is seen today for: Acute on chronic hypoxemic and hypercapnic resp failure; PUI Coronavirus-19 infection; Acute encephalopathy; ESRD; Morbid obesity; DM II; AE-COPD Seen and examined at bedside; 24hour events reviewed; nursing and respiratory care staff consulted; no adverse overnight events reported to me; resting peacefully in bed; remains on MVS and tolerating well; sedated; opens eyes but not following prompts; no emesis or overt aspiration; afebrile Objective Vital Signs - 12hr 04/07/20 04/07/20 04/07/20 03:00 03:01 03:11 Temperature Pulse Rate 76 76 83 Pulse Rate [ From Monitor] Pulse Rate [ Right Femoral] Respiratory 20 19 Rate Respiratory Rate [ Generalized] Blood Pressure 158/57 158/57 158/57 O2 Sat by Pulse 98 98 98 Oximetry 04/07/20 04/07/20 04/07/20 03:21 03:31 03:40 Temperature Pulse Rate 76 75 Pulse Rate [ 78 From Monitor] Pulse Rate [ Right Femoral] Respiratory 19 16 20 Rate Respiratory Rate [ Generalized] Blood Pressure 170/55 170/55 O2 Sat by Pulse 99 99 98 Oximetry 04/07/20 04/07/20 04/07/20 03:41 03:51 03:56 Temperature 98.4 F Pulse Rate 77 75 Pulse Rate [ From Monitor] Pulse Rate [ Right Femoral] Respiratory 14 18 Rate Respiratory Rate [ Generalized] Blood Pressure 158/57 158/57 O2 Sat by Pulse 98 98 Oximetry 04/07/20 04/07/20 04/07/20 04:01 04:11 04:21 Temperature Pulse Rate 74 92 H 77 Pulse Rate [ From Monitor] Pulse Rate [ Right Femoral] Respiratory 12 19 18 Rate Respiratory Rate [ Generalized] Blood Pressure 158/57 158/57 158/49 O2 Sat by Pulse 98 80 L 98 Oximetry 04/07/20 04/07/20 04/07/20 04:27 04:31 04:40 Temperature Pulse Rate 83 Pulse Rate [ From Monitor] Pulse Rate [ Right Femoral] Respiratory 20 17 20 Rate Respiratory Rate [ Generalized] Blood Pressure 175/55 151/58 O2 Sat by Pulse 98 Oximetry 04/07/20 04/07/20 04/07/20 04:41 04:51 05:01 Temperature Pulse Rate 74 73 74 Pulse Rate [ From Monitor] Pulse Rate [ Right Femoral] Respiratory 18 19 20 Rate Respiratory Rate [ Generalized] Blood Pressure 175/55 O2 Sat by Pulse 97 97 98 Oximetry 04/07/20 04/07/20 04/07/20 05:10 05:11 05:21 Temperature Pulse Rate 73 78 Pulse Rate [ From Monitor] Pulse Rate [ Right Femoral] Respiratory 20 19 21 Rate Respiratory Rate [ Generalized] Blood Pressure 151/58 O2 Sat by Pulse 97 97 97 Oximetry 04/07/20 04/07/20 04/07/20 05:22 05:23 05:27 Temperature Pulse Rate 77 Pulse Rate [ 78 From Monitor] Pulse Rate [ Right Femoral] Respiratory 20 20 Rate Respiratory Rate [ Generalized] Blood Pressure O2 Sat by Pulse 98 Oximetry 04/07/20 04/07/20 04/07/20 05:31 05:40 05:41 Temperature Pulse Rate 77 73 Pulse Rate [ From Monitor] Pulse Rate [ Right Femoral] Respiratory 21 20 20 Rate Respiratory Rate [ Generalized] Blood Pressure 175/55 151/58 175/55 O2 Sat by Pulse 97 97 97 Oximetry 04/07/20 04/07/20 04/07/20 05:51 06:00 06:15 Temperature Pulse Rate 78 72 70 Pulse Rate [ From Monitor] Pulse Rate [ Right Femoral] Respiratory 20 20 19 Rate Respiratory Rate [ Generalized] Blood Pressure 175/55 158/57 148/46 O2 Sat by Pulse 97 98 98 Oximetry 04/07/20 04/07/20 04/07/20 06:21 06:31 06:45 Temperature Pulse Rate 70 70 Pulse Rate [ From Monitor] Pulse Rate [ Right Femoral] Respiratory 20 21 20 Rate Respiratory Rate [ Generalized] Blood Pressure 148/46 148/46 O2 Sat by Pulse 98 98 98 Oximetry 04/07/20 04/07/20 04/07/20 07:01 07:15 07:30 Temperature Pulse Rate 69 69 70 Pulse Rate [ From Monitor] Pulse Rate [ Right Femoral] Respiratory 20 20 20 Rate Respiratory Rate [ Generalized] Blood Pressure 147/45 150/45 150/45 O2 Sat by Pulse 98 98 99 Oximetry 04/07/20 04/07/20 04/07/20 07:45 07:56 08:00 Temperature Pulse Rate 70 73 Pulse Rate [ From Monitor] Pulse Rate [ 78 Right Femoral] Respiratory 20 20 Rate Respiratory Rate [ Generalized] Blood Pressure 150/43 150/43 O2 Sat by Pulse 99 99 98 Oximetry 04/07/20 04/07/20 04/07/20 08:01 08:15 08:31 Temperature Pulse Rate 72 71 71 Pulse Rate [ From Monitor] Pulse Rate [ Right Femoral] Respiratory 20 15 15 Rate Respiratory Rate [ Generalized] Blood Pressure 173/44 150/43 167/43 O2 Sat by Pulse 98 97 98 Oximetry 04/07/20 04/07/20 04/07/20 08:45 09:01 09:15 Temperature Pulse Rate 70 71 71 Pulse Rate [ From Monitor] Pulse Rate [ Right Femoral] Respiratory 12 20 20 Rate Respiratory Rate [ Generalized] Blood Pressure 174/44 124/50 129/50 O2 Sat by Pulse 98 99 98 Oximetry 04/07/20 04/07/20 04/07/20 09:30 09:45 10:00 Temperature Pulse Rate 85 78 76 Pulse Rate [ From Monitor] Pulse Rate [ Right Femoral] Respiratory 20 19 14 Rate Respiratory 20 Rate [ Generalized] Blood Pressure 157/52 146/54 145/48 O2 Sat by Pulse 97 97 98 Oximetry 04/07/20 04/07/20 04/07/20 10:15 10:30 10:45 Temperature Pulse Rate 75 77 76 Pulse Rate [ From Monitor] Pulse Rate [ Right Femoral] Respiratory 19 16 20 Rate Respiratory Rate [ Generalized] Blood Pressure 145/54 154/53 153/53 O2 Sat by Pulse 97 97 97 Oximetry 04/07/20 04/07/20 04/07/20 11:00 11:15 11:30 Temperature Pulse Rate 72 72 73 Pulse Rate [ From Monitor] Pulse Rate [ Right Femoral] Respiratory 20 20 20 Rate Respiratory Rate [ Generalized] Blood Pressure 131/48 138/54 146/53 O2 Sat by Pulse 97 98 96 Oximetry 04/07/20 04/07/20 04/07/20 11:41 11:45 12:03 Temperature Pulse Rate 99 H 87 Pulse Rate [ From Monitor] Pulse Rate [ 102 H Right Femoral] Respiratory 20 20 Rate Respiratory Rate [ Generalized] Blood Pressure 146/53 146/53 O2 Sat by Pulse 97 97 989 H Oximetry Constitutional: no acute distress, other (middle aged obese female without ventilator dys-synchrony) Eyes: non-icteric ENT: oropharynx moist, other (ETT 23 cm PARRISH) Neck: supple, no lymphadenopathy, no JVD Ascultation: Bilateral: diminished breath sounds, rhonchi Percussion: Bilateral: not dull Cardiovascular: regular rate and rhythm Gastrointestinal: normoactive bowel sounds, soft, non-tender, non-distended (protuberant) Integumentary: erythema (right BKA stump) Extremities: no cyanosis, no edema, no ischemia or petechiae Neurologic: non-focal exam (grossly), pupils equal and round, unable to assess Psychiatric: other (unable to assess re: AMS) CBC and BMP: 04/06/20 14:30 04/06/20 14:30 ABG, PT/INR, D-dimer: ABG ABG pH 7.338 (7.320-7.450) 04/07/20 10:01 POC ABG pCO2 34.4 mmHg (32.0-48.0) 04/07/20 10:01 ABG pCO2 39.8 mm Hg 04/06/20 14:39 POC ABG pO2 79.8 mmHg (83-108) L 04/07/20 10:01 ABG pO2 133.8 mm Hg (80.0-90.0) H 04/06/20 14:39 POC ABG HCO3 18.1 04/07/20 10:01 ABG O2 Saturation 98.4 % (95.0-99.0) 04/06/20 14:39 PT/INR, D-dimer PT 13.8 Sec. (12.2-14.9) 04/06/20 14:30 INR 1.04 (0.87-1.13) 04/06/20 14:30 D-Dimer 1063.66 ng/mlDDU (0-234) H 04/07/20 09:34 Abnormal lab findings: Abnormal Labs 04/06/20 04/06/20 04/06/20 13:34 14:30 14:30 WBC 19.2 H RDW 17.8 H Seg Neuts % (Manual) 90.0 H Lymphocytes % (Manual) 4.0 L Seg Neutrophils # Man 17.3 H Lymphocytes # (Manual) 0.8 L D-Dimer ABG pH POC ABG pO2 ABG pO2 ABG HCO3 ABG Base Excess ABG Hemoglobin ABG Chloride Potassium 5.2 H Carbon Dioxide 17 L BUN 53 H Creatinine 7.8 H Glucose 144 H POC Glucose Magnesium Ferritin Alkaline Phosphatase 738 H Lactate Dehydrogenase Total Creatine Kinase 23 L Troponin T 0.224 H* C-Reactive Protein Albumin 3.1 L Triglycerides 342 H Cholesterol 223 H HDL Cholesterol 35 L Arterial Blood Ionized Calcium Urine WBC (Auto) > 182.0 H Salicylates Acetaminophen 04/06/20 04/06/20 04/06/20 14:30 14:30 14:30 WBC RDW Seg Neuts % (Manual) Lymphocytes % (Manual) Seg Neutrophils # Man Lymphocytes # (Manual) D-Dimer ABG pH POC ABG pO2 ABG pO2 ABG HCO3 ABG Base Excess ABG Hemoglobin ABG Chloride Potassium Carbon Dioxide BUN Creatinine Glucose POC Glucose Magnesium 2.50 H Ferritin Alkaline Phosphatase Lactate Dehydrogenase Total Creatine Kinase 24 L Troponin T C-Reactive Protein Albumin Triglycerides Cholesterol HDL Cholesterol Arterial Blood Ionized Calcium Urine WBC (Auto) Salicylates < 0.3 L Acetaminophen 5.0 L 04/06/20 04/06/20 04/07/20 14:39 20:00 00:48 WBC RDW Seg Neuts % (Manual) Lymphocytes % (Manual) Seg Neutrophils # Man Lymphocytes # (Manual) D-Dimer ABG pH 7.281 L 7.306 L POC ABG pO2 78.0 L ABG pO2 133.8 H ABG HCO3 18.3 L ABG Base Excess -7.8 L ABG Hemoglobin 10.8 L 10.8 L ABG Chloride 108.0 H Potassium Carbon Dioxide BUN Creatinine Glucose POC Glucose 69 L Magnesium Ferritin Alkaline Phosphatase Lactate Dehydrogenase Total Creatine Kinase Troponin T C-Reactive Protein Albumin Triglycerides Cholesterol HDL Cholesterol Arterial Blood Ionized Calcium Urine WBC (Auto) Salicylates Acetaminophen 04/07/20 04/07/20 04/07/20 09:34 09:34 09:34 WBC RDW Seg Neuts % (Manual) Lymphocytes % (Manual) Seg Neutrophils # Man Lymphocytes # (Manual) D-Dimer 1063.66 H ABG pH POC ABG pO2 ABG pO2 ABG HCO3 ABG Base Excess ABG Hemoglobin ABG Chloride Potassium Carbon Dioxide BUN Creatinine Glucose POC Glucose Magnesium Ferritin 743.0 H Alkaline Phosphatase Lactate Dehydrogenase 195 H Total Creatine Kinase Troponin T C-Reactive Protein 7.50 H Albumin Triglycerides Cholesterol HDL Cholesterol Arterial Blood Ionized Calcium Urine WBC (Auto) Salicylates Acetaminophen 04/07/20 10:01 WBC RDW Seg Neuts % (Manual) Lymphocytes % (Manual) Seg Neutrophils # Man Lymphocytes # (Manual) D-Dimer ABG pH POC ABG pO2 79.8 L ABG pO2 ABG HCO3 ABG Base Excess ABG Hemoglobin 10.3 L ABG Chloride 109.0 H Potassium Carbon Dioxide BUN Creatinine Glucose POC Glucose Magnesium Ferritin Alkaline Phosphatase Lactate Dehydrogenase Total Creatine Kinase Troponin T C-Reactive Protein Albumin Triglycerides Cholesterol HDL Cholesterol Arterial Blood Ionized Calcium 4.5 L Urine WBC (Auto) Salicylates Acetaminophen Chest x-ray: image reviewed (ETT [place]) Allied health notes reviewed: nursing
--- NOTE | 2020-04-07 15:51 | Consultation ---
PULMONARY CRITICAL CARE CONSULTATION NOTE CONSULTING PHYSICIAN: Dr. Andrea Burris. REASON FOR CONSULTATION: Acute encephalopathy, now on mechanical ventilatory support, severe sepsis. CHIEF COMPLAINT AND HISTORY OF PRESENT ILLNESS: As follows: The patient is a now 49-year-old female with past medical history significant amongst other things for a diagnosis of end-stage renal disease, on dialysis and recently admitted for COVID-19 infection. According to the records, she was brought into the Emergency Room for emergency medical services after being sent to the dialysis center by her home nurse. The patient was found altered and obtunded. Last known well time unclear. EMS reported that the patient may have been hypotensive in the field, but had a normal glucose level when they checked. When she arrived in the Emergency Room, she was somnolent to obtunded, essentially she was hypoxemic. She did not have a gag reflex and she was intubated for airway protection and ventilation. Post-intubation, she was found to be hypothermic with a rectal temperature of 94 degrees. She was deemed to be septic and a pulmonary critical care consult was placed. When I stopped by to see her, she was in the Emergency Room, blood pressure apparently rebounded as she was now on a Cardene drip. She remained intubated. She was arousable, but not following commands, moving mostly the right upper extremity in an attempt to reach for the endotracheal tube. I do not have any history of vomiting or overt aspiration, although I cannot rule that out. With regards to the patient's tobacco use/abuse history, she is described as a former smoker. The above is as much of the history of presentation as I have. PAST MEDICAL HISTORY: Again, significant for hypertension; cerebrovascular accident with left hemiparesis; diabetes; end-stage renal disease, on dialysis; history of COPD; history of anemia. PAST SURGICAL HISTORY: She has had bilateral [id number] amputations. MEDICATIONS: She was on at the time I stopped by to see were reviewed. Pertinent medications included the following: Tylenol 650 mg p.o. q. 6 hours p.r.n. mild pain or fevers, fentanyl 50 mcg IV q. 10 minutes p.r.n. analgesia. She was also on a fentanyl drip going at 1 mcg/kg/hr, Dilaudid 0.25 mg IV q. 4 hours p.r.n. moderate pain, Levaquin 750 mg IV q. 48 hours, nicardipine drip was going at 5 mg per hour. She received earlier on acyclovir 800 mg IV 1 dose, Rocephin 2 g IV 1 dose, Decadron 10 mg IV 1 dose and vancomycin 2 grams IV 1 dose. ALLERGIES: CARROTS, ERYTHROMYCIN BASE, LATEX, PEAS, REPORTEDLY VANCOMYCIN; HOWEVER, THE NATURE OF THAT ALLERGY IS UNKNOWN. DIET: Morbidly obese lady, acute weight loss or gain history is unknown. FAMILY AND SOCIAL HISTORY: It is unclear where the patient lives; however, it appears that the patient lives in the community. She is described as a former smoker. Alcohol or illicit drug use or abuse history is unknown. Family history is otherwise unknown. REVIEW OF SYSTEMS: Unobtainable secondary to patient's medical and mental condition. Since she has been here, no gross hematochezia or melena, no gross hematuria, no bloody tracheal secretions, no witnessed seizures have been reported. Review of systems otherwise unobtainable or as in body of history above. PHYSICAL EXAMINATION: VITAL SIGNS: On examination at presentation in the Emergency Room, temperature 94.1 degrees Fahrenheit rectally, pulse of 66, respiratory rate was 18, blood pressure was 131/111, O2 sats were 87%, inspired oxygen concentration at that time was not recorded. When I stopped by to see her, O2 sats were 98% that was on the assist control mode of ventilation, tidal volumes 450, set rate of 20, PEEP of 6, and 40% FiO2. GENERAL: She is a middle-aged obese female, normocephalic, on the mechanical ventilator with mildly increased respiratory effort at rest. HEAD, EYES, EARS, NOSE AND THROAT: Anicteric. No conjunctival erythema. Oropharynx was moist. She had an endotracheal tube taped in place at the lips at around 23-24 cm. NECK: Grossly, there were no palpable lymph nodes in the supraclavicular or submandibular lymph node chains. She did have a large neck circumference. LUNGS: Auscultation of both lung flor revealed diminished bilateral breath sounds, scant rales and referred upper airway sounds. No wheezing. HEART: Heart sounds 1 and 2 are heard. They were regular in rate and rhythm at the time of my evaluation without overt rubs or murmurs. ABDOMEN: Soft, full, protuberant. Bowel sounds are positive, nontender, no palpable hepatosplenomegaly. EXTREMITIES: Without overt digital clubbing or cyanosis. She has the bilateral [id number] amputations. NEUROLOGIC: Pupils are equal, round, about 3 mm, sluggishly reactive to light. Extraocular muscle movements appeared intact. She was sedated, but to about her RASS scale of about -1. She had spontaneous movements in particular to the right upper extremity. SKIN: Normal turgor. She had erythema to the right lower extremity stump, however, without overt cellulitis. Please see the wound care nurse's note for full description of her skin as well as a registered nurse's notes. PSYCHIATRIC: Mood and affect could not be assessed. LABORATORY DATA: From my review are as follows: Admission white cell count 19,200, hemoglobin 10.9, hematocrit 35.0, platelet count of 425. No significant band forms reported. INR was 1.04. Arterial blood gas showed a pH of 7.28, pCO2 of 40, pO2 of 134 and this was on 50% FiO2. Serum sodium was 141, potassium was 5.2, chloride 104, bicarbonate 17, BUN 53, creatinine 7.8, glucose 144. Liver function tests essentially within normal limits. Alkaline phosphatase was increased at 738. Troponin was elevated at 0.224. CPK was, however, within normal limits. TSH within normal limits. Urinalysis showed moderate leukocyte esterase with greater than 182 white cells per high power field. Tylenol, aspirin, and alcohol levels were nondetectable. I do not see any blood cultures yet. CT of the head was done. I have reviewed the radiologist's interpretation and is described as no acute intracranial abnormalities. There is evidence of a remote small deep infarction in the right gangliocapsular region, but that was unchanged since December, I believe of this year. A chest x-ray shows an endotracheal tube with the tip probably about 3 cm above the robbi below the clavicular heads, increased interstitial markings, possible right lower lobe infiltrate. The film was rotated to the left. No gross pneumothorax, no gross bony fracture. Borderline cardiomegaly. ASSESSMENT: 1. Acute hypoxemic respiratory failure, on mechanical ventilatory support. 2. Possible aspiration/right lower lobe pneumonia. 3. Acute toxic metabolic encephalopathy. 4. Likely urinary tract infection with urosepsis. 5. Severe sepsis without shock. 6. Leukocytosis. 7. End-stage renal disease, on dialysis. 8. Obesity. 9. Hyperkalemia that is mild. 10. Oropharyngeal dysphagia. 11. Elevated serum troponin. PLAN: We will keep her on full mechanical ventilatory support. I will repeat arterial blood gas just to ensure adequate ventilation at this point and otherwise address as necessary. Oxygen will be weaned to keep sats greater than or equal to about 90%. Aspiration precautions will be maintained. Infectious Disease consultation will be of benefit. For now, we will continue empiric broad-spectrum antibiotic therapy. Just in case this is a healthcare-associated pneumonia or other infection, I will go ahead and leave her empirically on cefepime and get a random vancomycin level in the morning and see how she responds to that and make sure there is not any significant severe allergy. Ventilator-associated pneumonia bundle has been introduced. Enteral nutrition will be the feeding modality of choice. Daily spontaneous breathing trials and sedation assessment trials will be done. We will target initially RASS scale of about -1 to -2. She is going to be placed on GI and DVT prophylaxis. Conservative volume management strategies in light of her end-stage renal disease. Nephrology consultation will be per the attending physician, but definitely should be requested and I do see that the Emergency Room physician has already consulted art glass designer. Mobility protocols, wound care will be per the wound care nurse. Pain management will be per the CPOT score. We will continue the Cardene drip and wean her off her medications off the Cardene initially for a target systolic pressure of about 150 mmHg. I will defer to Nephrology for reinstitution of her oral antihypertensive medications. Flu and pneumonia vaccination will be per protocol. Further interventions will depend on her clinical progress during this hospitalization. She will be admitted to the Intensive Care Unit. She is critically ill on life-sustaining interventions including mechanical ventilatory support. At this time, I spent about 35-40 minutes of critical care time without overlap and excluding any procedural time that may be necessary. JOB# [id number] ANNIE/COLE
[2020-04-07] MEDS ORDERED: SODIUM CHLORIDE 0.9% 100 ML IV PRN ×2 (17:00→17:33)
[2020-04-07 17:23] LABS: Hepatitis B Surface Antigen Non-Reactive (Negative); Hepatitis C Virus Antibody Reactive (NonReactive)
--- NOTE | 2020-04-07 17:33 | Consultation ---
History of Present Illness - Reason for Consult Consult date: 04/07/20 end stage renal disease - History of Present Illness History obtained from medical records as patient is intubated. Mrs. Gomez is a 49yo with ESRD on HD TTS, hx of COVID 19, who presented to the ED via EMS due to AMS upon presentation to the dialysis clinic. Patient was not dialyzed due to change in mental status. Upon arrival to the ED, patient was "somnolent, obtunded, hypoxic, without a gag reflex". She was intubated for airway protection. Initial vitals were notable for rectal temperature 94.1, HR 66, RR 18, O2 sat 87%, BP 131/111. WBC 19.2. Bains catheter placed and pure purulent material was obtained from the Bains catheter. Nephrology consulted for management of ESRD. Patient remains intubated - TV 450, FiO2 40, PEEP 6, Rate 12 Past History Past Medical History: diabetes, ESRD, hypertension, stroke, other (See HPI) Past Surgical History: Other (Bilateral foot amputations) Social history: single. denies: smoking, alcohol abuse, prescription drug abuse Family history: hypertension Medications and Allergies Allergies Allergy/AdvReac Type Severity Reaction Status Date / Time carrot Allergy Hives Verified 07/28/19 12:30 erythromycin base Allergy Hives Verified 07/30/19 11:26 latex Allergy Rash Verified 02/18/19 13:20 peas Allergy Hives Verified 12/20/19 12:37 vancomycin Allergy Hives Verified 12/31/19 15:46 Home Medications Medication Instructions Recorded Confirmed Last Taken Type Aripiprazole 5 mg PO DAILY 02/18/19 04/06/20 02/17/19 History Benadryl CAP 25 mg PO Q8H PRN 02/18/19 04/06/20 02/17/19 History Calcium Acetate 667 mg PO TIDWM 02/18/19 04/06/20 02/17/19 History Carvedilol 6.25 mg PO Q12H 02/18/19 04/06/20 02/17/19 History Colace CAP 100 mg PO Q12H PRN 02/18/19 04/06/20 02/17/19 History Esomeprazole Magnesium 40 mg PO QDAC 02/18/19 04/06/20 02/17/19 History HumaLOG 10 units SUB-Q TIDWM 02/18/19 04/06/20 02/17/19 History Insulin Detemir (Nf) [Levemir See Protocol SQ QHS 02/18/19 04/06/20 02/17/19 History Flextouch (Nf)] Losartan Potassium 50 mg PO DAILY 02/18/19 04/06/20 02/17/19 History Lyrica 75 mg PO Q12H 02/18/19 04/06/20 02/17/19 History Melatonin 6 mg PO QHS 02/18/19 04/06/20 02/17/19 History Senna 17.2 mg PO QHS PRN 02/18/19 04/06/20 02/17/19 History Venlafaxine HCl [Venlafaxine HCl 150 mg PO QDAC 02/18/19 04/06/20 02/17/19 History ER] Vitamin C 250 mg PO DAILY 02/18/19 04/06/20 02/17/19 History ZyrTEC 10mg cap 10 mg PO DAILY 02/18/19 04/06/20 02/17/19 History Calcium Acetate [Phoslo] 667 mg PO TIDWM capsule 12/22/19 04/06/20 Unknown Rx Fe Fumarate/FA/Mv, Min Comb#15 1 each PO QDAY capsule 12/22/19 04/06/20 Unknown Rx [Hemocyte Plus] Albuterol Mdi (or & Nicu Only) 2.5 puff IH Q4HRT PRN inha 01/12/20 04/06/20 Unknown Rx [ProAir HFA Inhaler] dexAMETHasone [Decadron] 6 mg PO Q12HR #10 tablet 01/12/20 04/06/20 Unknown Rx oxyCODONE 5 mg PO Q6H PRN #10 01/12/20 04/06/20 Unknown Rx Active Meds: Active Medications Acetaminophen (Tylenol) 650 mg PO Q6H PRN PRN Reason: Pain, Mild (1-3) Lipase/Protease/Amylase (Jeremy Reyes 10,500 Unit) 1 each FEEDTUBE PRN PRN PRN Reason: For Clogged Feeding Tube Famotidine (Pepcid) 20 mg PO QDAY NOEL Last Admin: 04/07/20 09:37 Dose: 20 mg Documented by: Fentanyl (Sublimaze) 50 mcg IV Q10MIN PRN PRN Reason: ANALGESIA Heparin Sodium (Porcine) (Heparin) 5,000 unit SUB-Q Q12HR NOEL Last Admin: 04/07/20 09:37 Dose: 5,000 unit Documented by: Hydromorphone HCl (Dilaudid) 0.25 mg IV Q4H PRN PRN Reason: Pain, Moderate (4-6) Hydrophilic Ointment (Vaseline Lip Therapy) 1 applic TP Q2HR PRN PRN Reason: Dry Lips Fentanyl Citrate (Fentanyl Drip Premix) 2,000 mcg in 100 mls @ 5.505 mls/hr IV TITR NOEL; Protocol Last Admin: 04/07/20 16:06 Dose: 3 mcg/kg/hr, 16.515 mls/hr Documented by: Nicardipine/Sodium Chloride (Cardene Drip 40 Mg/200 Ml) 40 mg in 200 mls @ 25 mls/hr IV TITR NOEL; Protocol Last Titration: 04/06/20 23:23 Dose: Infused Documented by: Cefepime HCl (Cefepime/Ns 1 Gm/100 Ml) 1 gm in 100 mls @ 200 mls/hr IV Q24H NOEL; Protocol Last Admin: 04/06/20 21:31 Dose: 200 mls/hr Documented by: Fluconazole (Diflucan/Ns 100 Mg/50 Ml) 100 mg in 50 mls @ 50 mls/hr IV Q24HR NOEL; Protocol Stop: 04/09/20 10:59 Last Admin: 04/07/20 10:06 Dose: 50 mls/hr Documented by: Linezolid (Zyvox 600mg/300ml) 600 mg in 300 mls @ 300 mls/hr IV Q12HR NOEL; Protocol Last Admin: 04/07/20 10:27 Dose: 300 mls/hr Documented by: Sodium Chloride (Nacl 0.9% 250ml) 250 mls @ 10 mls/hr IV DIRECT PRN PRN Reason: FOR ABX Last Admin: 04/07/20 10:14 Dose: 10 mls/hr Documented by: Sodium Chloride (Nacl 0.9%) 100 mls @ 999 mls/hr IV SPRING PRN PRN Reason: Hypotension Multi-Ingred Cream/Lotion/Oil/Oint (Artificial Tears Ophth Oint) 1 applic OU Q4HR PRN PRN Reason: Dry Eye(s) Simple Syrup (Simple Syrup) 15 ml FEEDTUBE PRN PRN PRN Reason: Hypoglycemia Simple Syrup (Simple Syrup) 30 ml FEEDTUBE PRN PRN PRN Reason: Hypoglycemia Sodium Bicarbonate (Sodium Bicarbonate) 325 mg FEEDTUBE PRN PRN PRN Reason: For Clogged Feeding Tube Sodium Chloride (Sodium Chloride Flush Syringe 10 Ml) 10 ml IV BID NOEL Last Admin: 04/07/20 09:38 Dose: 10 ml Documented by: Sodium Chloride (Sodium Chloride Flush Syringe 10 Ml) 10 ml IV PRN PRN PRN Reason: LINE FLUSH Review of Systems ROS unobtainable: due to endotracheal tube Exam - Vital Signs Vital signs: Vital Signs Temp Pulse Resp BP Pulse Ox 94.1 F L 66 18 131/111 87 04/06/20 13:05 04/06/20 13:05 04/06/20 13:05 04/06/20 13:05 04/06/20 13:05 - General Appearance General appearance: well-developed, well-nourished, intubated EENT: ATNC, other (ETT in place) Respiratory: Clear to Ascultation Heart: regular, S1S2 Gastrointestinal: Present: obese. Absent: tenderness, distended Integumentary: no rash, warm and dry Neurologic: other (sedated) Musculoskeletal: Present: other (no edema) Results - Lab Results 04/06/20 14:30 04/06/20 14:30 Most recent lab results ABG pH 7.338 (7.320-7.450) 04/07/20 10:01 ABG pCO2 39.8 mm Hg 04/06/20 14:39 ABG pO2 133.8 mm Hg (80.0-90.0) H 04/06/20 14:39 ABG HCO3 18.3 mmol/L (20.0-26.0) L 04/06/20 14:39 ABG O2 Saturation 98.4 % (95.0-99.0) 04/06/20 14:39 Calcium 8.9 mg/dL (8.4-10.2) 04/06/20 14:30 Magnesium 2.50 mg/dL (1.7-2.3) H 04/06/20 14:30 Assessment and Plan Impression: * End stage renal disease * Acute hypoxic respiratory failure * Acute encephalopathy * Sepsis * UTI * Hx of COVID 19 --SARS Cov2 PCR negative Nov 13 * Metabolic acidosis Plan: * Hemodialysis today * Resume TTS schedule tomorrow * UF as tolerated * ID recommendations noted * Vent management per CCM * Dose medications for renal function
[2020-04-07] MEDS: CEFEPIME/NS 1 GM/100 ML 1 GM/100 ML BAG IV SCH (21:33)
[2020-04-07] MEDS ORDERED: LINEZOLID 600 MG/300 ML BAG IV ONE (23:00)
--- NOTE | 2020-04-08 04:10 | XRay Report ---
CHEST 1 VIEW 04/08/2020 2:59 AM INDICATION / CLINICAL INFORMATION: follow up respiratory failure. COMPARISON: 04/07/2020 FINDINGS: SUPPORT DEVICES: Stable, satisfactory device positioning. HEART / MEDIASTINUM: Stable. LUNGS / PLEURA: Mildly worsened bibasilar opacities. No pneumothorax. ADDITIONAL FINDINGS: No significant additional findings. IMPRESSION: 1. Mildly worsening bilateral basilar opacities. Signer Name: Jaswinder Us MD Signed: 04/08/2020 4:06 AM Workstation Name: [facility]
[2020-04-08 04:44] LABS: ABG Base Excess -1.6 mmol/L (-2.0-3.0); ABG Methemoglobin 0.4 % (0.0-1.5); ABG Oxygen Saturation 98.1 % (95.0-99.0); ABG PCO2 44.5 mm Hg; ABG PH 7.349 pH Units (7.350-7.450); ABG PO2 117.3 mm Hg (80.0-90.0)
[2020-04-08] MEDS: fentaNYL DRIP Premix 2,000 MCG/100 ML BAG IV SCH ×2 (07:37→18:23)
[2020-04-08] MEDS: LINEZOLID 600 MG/300 ML BAG IV SCH (09:15)
[2020-04-08] MEDS: HEPARIN 5,000 UNIT/1 ML VIAL SUB-Q SCH ×2 (10:48→23:49)
[2020-04-08] MEDS: FAMOTIDINE 20 MG TAB PO SCH (10:48)
[2020-04-08] MEDS: FLUCONAZOLE/NS 100 MG/50 ML 100 MG/50 ML BAG IV SCH (10:48)
--- NOTE | 2020-04-08 11:28 | Progress Note ---
Assessment and Plan Assessment and plan: Severe sepsis. Present on admission with hypothermia, leukocytosis, altered mental status, likely due to bilateral pneumonia. F/U Blood Cx. Cont. Abx pre ID Bilateral pneumonia. Aspiration pneumonia/HAP Severe UTI. Bains catheter with purulent urine. Acute hypoxemic respiratory failure. Intubated for airway protection, O2 sats down to 87%. Toxic metabolic encephalopathy. Etiology secondary to sepsis End-stage renal disease on hemodialysis Extensive Candidal intertrigo in groin and vagina. Cont. Fluconazole History COVID-19 infection (01/07/2020) 04/08/2020. Patient remains intubated on mechanical ventilation with AC mode ventilation rate 12, tidal volume 450, FiO2 40% and a PEEP of 6. Continue weaning per protocols. Patient with ESRD and continue TTS schedule per nephrology. Patient does have a history of COVID-19 infection(01/07/20) but negative testing April 07. Follow-up blood/urine/sputum culture. Continue antibiotics per ID recommendations. The high probability of a clinically significant, sudden or life threatening deterioration of the [respiratory] system(s) required my full and direct attention, intervention and personal management. The aggregate critical care time was [32] minutes. This time is in addition to time spent performing reported procedures but includes the following: [x] Data Review and interpretation [x] Patient assessment and monitoring of vital signs [x] Documentation [x] Medication orders and management History Interval history: 49 years old female with history of asthma, hypertension, end-stage renal disease on hemodialysis, diabetes mellitus, bipolar disorder, morbid obesity, [facility], [facility], admitted on 04/06/2020 secondary to be found Unresponsiveness after hemodialysis. Patient is unable to provide history, currently intubated. Patient received hemodialysis and after completion she became unresponsive. Upon EMS arrival, blood pressure was 90/60, HR 88, temperature 97.2. Per records, patient was not complaining of any symptoms. On arrival, temperature 94.1, HR 66, RR 18, O2 sat 87%, BP 131/111. Initial WBC 19.2. Urinalysis showed more than 182 WBCs and moderate leukocyte esterase. Chest x-ray shows bibasilar infiltrates. Patient was intubated in the emergency room to protect airway. Bains catheter was placed yielding purulent urine. Hospitalist Physical - Constitutional Vitals: Temp Pulse Resp BP Pulse Ox 99.0 F 79 12 124/55 97 04/08/20 08:30 04/08/20 11:00 04/08/20 10:00 04/08/20 11:00 04/08/20 08:47 General appearance: Present: severe distress - EENT Eyes: Present: PERRL, EOM intact ENT: hearing intact, clear oral mucosa, dentition normal - Neck Neck: Present: supple, normal ROM - Respiratory Respiratory effort: normal Respiratory: bilateral: CTA - Cardiovascular Rhythm: regular Heart Sounds: Present: S1 & S2. Absent: gallop, rub - Extremities Extremities: no ischemia, No edema, Full ROM - Abdominal General gastrointestinal: soft, non-tender, non-distended, normal bowel sounds - Integumentary Integumentary: Present: clear, warm, dry - Neurologic Neurologic: CNII-XII intact, moves all extremities HEART Score - HEART Score Troponin: Troponin T 0.224 ng/mL (0.00-0.029) H* 04/06/20 14:30 Results - Labs CBC & Chem 7: 04/06/20 14:30 04/06/20 14:30 Labs: Laboratory Last Values WBC 19.2 K/mm3 (4.5-11.0) H 04/06/20 14:30 RBC 3.79 M/mm3 (3.65-5.03) 04/06/20 14:30 Hgb 10.9 gm/dl (10.1-14.3) 04/06/20 14:30 Hct 35.0 % (30.3-42.9) 04/06/20 14:30 MCV 92 fl (79-97) 04/06/20 14:30 MCH 29 pg (28-32) 04/06/20 14:30 MCHC 31 % (30-34) 04/06/20 14:30 RDW 17.8 % (13.2-15.2) H 04/06/20 14:30 Plt Count 425 K/mm3 (140-440) 04/06/20 14:30 Add Manual Diff Complete 04/06/20 14:30 Total Counted 100 04/06/20 14:30 Seg Neuts % (Manual) 90.0 % (40.0-70.0) H 04/06/20 14:30 Band Neutrophils % 1.0 % 04/06/20 14:30 Lymphocytes % (Manual) 4.0 % (13.4-35.0) L 04/06/20 14:30 Reactive Lymphs % (Man) 0 % 04/06/20 14:30 Monocytes % (Manual) 3.0 % (0.0-7.3) 04/06/20 14:30 Eosinophils % (Manual) 2.0 % (0.0-4.3) 04/06/20 14:30 Basophils % (Manual) 0 % (0.0-1.8) 04/06/20 14:30 Metamyelocytes % 0 % 04/06/20 14:30 Myelocytes % 0 % 04/06/20 14:30 Promyelocytes % 0 % 04/06/20 14:30 Blast Cells % 0 % 04/06/20 14:30 Nucleated RBC % Not Reportable 04/06/20 14:30 Seg Neutrophils # Man 17.3 K/mm3 (1.8-7.7) H 04/06/20 14:30 Band Neutrophils # 0.2 K/mm3 04/06/20 14:30 Lymphocytes # (Manual) 0.8 K/mm3 (1.2-5.4) L 04/06/20 14:30 Abs React Lymphs (Man) 0.0 K/mm3 04/06/20 14:30 Monocytes # (Manual) 0.6 K/mm3 (0.0-0.8) 04/06/20 14:30 Eosinophils # (Manual) 0.4 K/mm3 (0.0-0.4) 04/06/20 14:30 Basophils # (Manual) 0.0 K/mm3 (0.0-0.1) 04/06/20 14:30 Metamyelocytes # 0.0 K/mm3 04/06/20 14:30 Myelocytes # 0.0 K/mm3 04/06/20 14:30 Promyelocytes # 0.0 K/mm3 04/06/20 14:30 Blast Cells # 0.0 K/mm3 04/06/20 14:30 WBC Morphology Not Reportable 04/06/20 14:30 Hypersegmented Neuts Not Reportable 04/06/20 14:30 Hyposegmented Neuts Not Reportable 04/06/20 14:30 Hypogranular Neuts Not Reportable 04/06/20 14:30 Smudge Cells Not Reportable 04/06/20 14:30 Toxic Granulation Not Reportable 04/06/20 14:30 Toxic Vacuolation Not Reportable 04/06/20 14:30 Dohle Bodies Not Reportable 04/06/20 14:30 Pelger-Huet Anomaly Not Reportable 04/06/20 14:30 Stephanie Rods Not Reportable 04/06/20 14:30 Platelet Estimate Consistent w auto 04/06/20 14:30 Clumped Platelets Not Reportable 04/06/20 14:30 Plt Clumps, EDTA Not Reportable 04/06/20 14:30 Large Platelets Not Reportable 04/06/20 14:30 Giant Platelets Not Reportable 04/06/20 14:30 Platelet Satelliting Not Reportable 04/06/20 14:30 Plt Morphology Comment Not Reportable 04/06/20 14:30 RBC Morphology Not Reportable 04/06/20 14:30 Dimorphic RBCs Not Reportable 04/06/20 14:30 Polychromasia Not Reportable 04/06/20 14:30 Hypochromasia Not Reportable 04/06/20 14:30 Poikilocytosis Not Reportable 04/06/20 14:30 Anisocytosis Few 04/06/20 14:30 Microcytosis Not Reportable 04/06/20 14:30 Macrocytosis Few 04/06/20 14:30 Spherocytes Not Reportable 04/06/20 14:30 Pappenheimer Bodies Not Reportable 04/06/20 14:30 Sickle Cells Not Reportable 04/06/20 14:30 Target Cells Not Reportable 04/06/20 14:30 Tear Drop Cells Not Reportable 04/06/20 14:30 Ovalocytes Not Reportable 04/06/20 14:30 Helmet Cells Not Reportable 04/06/20 14:30 Barroso-Pitman Bodies Not Reportable 04/06/20 14:30 [place] Rings Not Reportable 04/06/20 14:30 Michael Cells Not Reportable 04/06/20 14:30 Bite Cells Not Reportable 04/06/20 14:30 Crenated Cell Not Reportable 04/06/20 14:30 Elliptocytes Not Reportable 04/06/20 14:30 Acanthocytes (Spur) Not Reportable 04/06/20 14:30 Rouleaux Not Reportable 04/06/20 14:30 Hemoglobin C Crystals Not Reportable 04/06/20 14:30 Schistocytes Not Reportable 04/06/20 14:30 Malaria parasites Not Reportable 04/06/20 14:30 Lc Bodies Not Reportable 04/06/20 14:30 Hem Pathologist Commnt No 04/06/20 14:30 PT 13.8 Sec. (12.2-14.9) 04/06/20 14:30 INR 1.04 (0.87-1.13) 04/06/20 14:30 APTT 28.1 Sec. (24.2-36.6) 04/06/20 14:30 D-Dimer 1063.66 ng/mlDDU (0-234) H 04/07/20 09:34 ABG pH 7.349 pH Units (7.350-7.450) L 04/08/20 Unknown POC ABG pCO2 34.4 mmHg (32.0-48.0) 04/07/20 10:01 ABG pCO2 44.5 mm Hg 04/08/20 Unknown POC ABG pO2 79.8 mmHg (83-108) L 04/07/20 10:01 ABG pO2 117.3 mm Hg (80.0-90.0) H 04/08/20 Unknown POC ABG HCO3 18.1 04/07/20 10:01 ABG HCO3 24.0 mmol/L (20.0-26.0) 04/08/20 Unknown ABG O2 Saturation 98.1 % (95.0-99.0) 04/08/20 Unknown ABG O2 Content 10.2 (0.0-44) 04/08/20 Unknown POC ABG Base Excess -7.0 04/07/20 10:01 ABG Base Excess -1.6 mmol/L (-2.0-3.0) 04/08/20 Unknown ABG Hemoglobin 7.4 gm/dl (12.0-16.0) L 04/08/20 Unknown ABG Carboxyhemoglobin 1.6 % (0.0-5.0) 04/08/20 Unknown ABG Methemoglobin 0.4 % (0.0-1.5) 04/08/20 Unknown ABG Sodium 142.8 mmol/L (136.0-145.0) 04/07/20 10:01 ABG Potassium 4.1 mmol/L (3.40-4.50) 04/07/20 10:01 ABG Chloride 109.0 mmol/L (98-107) H 04/07/20 10:01 ABG Glucose 79 mg/dL (65-95) 04/07/20 10:01 Oxyhemoglobin 96.1 % (95.0-99.0) 04/08/20 Unknown FiO2 40 % 04/08/20 Unknown Sodium 141 mmol/L (137-145) 04/06/20 14:30 Potassium 5.2 mmol/L (3.6-5.0) H 04/06/20 14:30 Chloride 103.7 mmol/L (98-107) 04/06/20 14:30 Carbon Dioxide 17 mmol/L (22-30) L 04/06/20 14:30 Anion Gap 26 mmol/L 04/06/20 14:30 BUN 53 mg/dL (7-17) H 04/06/20 14:30 Creatinine 7.8 mg/dL (0.6-1.2) H 04/06/20 14:30 Estimated GFR 5 ml/min 04/06/20 14:30 BUN/Creatinine Ratio 7 % 04/06/20 14:30 Glucose 144 mg/dL (65-100) H 04/06/20 14:30 POC Glucose 129 mg/dL (70-105) H 04/08/20 04:58 Lactic Acid 1.00 mmol/L (0.7-2.0) 04/06/20 23:09 Calcium 8.9 mg/dL (8.4-10.2) 04/06/20 14:30 Magnesium 2.50 mg/dL (1.7-2.3) H 04/06/20 14:30 Ferritin 743.0 ng/mL (10.0-200.0) H 04/07/20 09:34 Total Bilirubin 0.30 mg/dL (0.1-1.2) 04/06/20 14:30 AST 39 units/L (5-40) 04/06/20 14:30 ALT 21 units/L (7-56) 04/06/20 14:30 Alkaline Phosphatase 738 units/L (35-129) H 04/06/20 14:30 Ammonia 43.0 umol/L (25-60) 04/06/20 14:30 Lactate Dehydrogenase 195 units/L (91-180) H 04/07/20 09:34 Total Creatine Kinase 23 units/L (30-135) L 04/06/20 14:30 Total Creatine Kinase 24 units/L (30-135) L 04/06/20 14:30 Troponin T 0.224 ng/mL (0.00-0.029) H* 04/06/20 14:30 C-Reactive Protein 7.50 mg/dL (0.00-1.30) H 04/07/20 09:34 Total Protein 8.1 g/dL (6.3-8.2) 04/06/20 14:30 Albumin 3.1 g/dL (3.9-5) L 04/06/20 14:30 Albumin/Globulin Ratio 0.6 % 04/06/20 14:30 Triglycerides 342 mg/dL (2-149) H 04/06/20 14:30 Cholesterol 223 mg/dL (50-199) H 04/06/20 14:30 LDL Cholesterol Direct 123 mg/dL (50-130) 04/06/20 14:30 HDL Cholesterol 35 mg/dL (40-59) L 04/06/20 14:30 Cholesterol/HDL Ratio 6.37 % 04/06/20 14:30 TSH 1.320 mlU/mL (0.270-4.200) 04/06/20 14:30 HCG, Qual Negative (Negative) 04/06/20 14:30 Arterial Blood Glucose 79 mg/dL (65-95) 04/07/20 10:01 Arterial Blood Ionized Calcium 4.5 mg/dL (4.6-5.3) L 04/07/20 10:01 Urine Color Yellow (Yellow) 04/06/20 13:34 Urine Turbidity Turbid (Clear) 04/06/20 13:34 Urine pH 7.0 (5.0-7.0) 04/06/20 13:34 Ur Specific [place] 1.017 (1.003-1.030) 04/06/20 13:34 Urine Protein 100 mg/dl mg/dL (Negative) 04/06/20 13:34 Urine Glucose (UA) 50 mg/dL (Negative) 04/06/20 13:34 Urine Ketones Tr mg/dL (Negative) 04/06/20 13:34 Urine Blood Sm (Negative) 04/06/20 13:34 Urine Nitrite Neg (Negative) 04/06/20 13:34 Urine Bilirubin Neg (Negative) 04/06/20 13:34 Urine Urobilinogen < 2.0 mg/dL (<2.0) 04/06/20 13:34 Ur Leukocyte Esterase Mod (Negative) 04/06/20 13:34 Urine WBC (Auto) > 182.0 /HPF (0.0-6.0) H 04/06/20 13:34 Urine RBC (Auto) 49.0 /HPF (0.0-6.0) 04/06/20 13:34 U Epithel Cells (Auto) 6.0 /HPF (0-13.0) 04/06/20 13:34 Urine Bacteria (Auto) 2+ /HPF (Negative) 04/06/20 13:34 Urine WBC Clumps 3+ /HPF 04/06/20 13:34 Urine Mucus 3+ /HPF 04/06/20 13:34 Salicylates < 0.3 mg/dL (2.8-20.0) L 04/06/20 14:30 Acetaminophen 5.0 ug/mL (10.0-30.0) L 04/06/20 14:30 Plasma/Serum Alcohol < 0.01 % (0-0.07) 04/06/20 14:30 Coronavirus (PCR) Negative (Negative) 04/07/20 Unknown Hepatitis A IgM Ab Non-reactive (NonReactive) 04/07/20 16:38 Hep Bs Antigen Non-reactive (Negative) 04/07/20 16:38 Hep B Core IgM Ab Non-reactive (NonReactive) 04/07/20 16:38 Hepatitis C Antibody Reactive (NonReactive) A 04/07/20 16:38 Blood Type O POSITIVE 04/06/20 14:30 Antibody Screen Negative 04/06/20 14:30 Microbiology: Microbiology 04/06/20 14:30 Peripheral/Venous Blood Culture - Preliminary 04/06/20 14:30 Peripheral/Venous Blood Culture - Preliminary NO GROWTH AFTER 24 HOURS 04/06/20 13:34 Tracheal Aspirate Sputum Culture - Final 04/06/20 Unknown Urine,Catheterized - Indwelling Catheter Urine Culture - Preliminary Bains/IV: Voiding Method Indwelling Catheter IV Catheter Type [Left INT / Saline Lock Antecubital] IV Catheter Type [Right INT / Saline Lock Forearm] Active Medications - Current Medications Current Medications: Generic Name Dose Route Start Last Admin Trade Name Freq PRN Reason Stop Dose Admin Acetaminophen 650 mg 04/06/20 16:39 Tylenol PO Q6H PRN Pain, Mild (1-3) Lipase/Protease/Amylase 1 each 04/07/20 10:[address] 10,500 Unit FEEDTUBE PRN PRN For Clogged Feeding Tube Famotidine 20 mg 04/07/20 10:00 04/08/20 10:48 Pepcid PO 20 mg QDAY NOEL Administration Fentanyl 50 mcg 04/06/20 13:34 Sublimaze IV Q10MIN PRN ANALGESIA Heparin Sodium (Porcine) 5,000 unit 04/06/20 22:00 04/08/20 10:48 Heparin SUB-Q 5,000 unit Q12HR NOEL Administration Hydromorphone HCl 0.25 mg 04/06/20 16:39 Dilaudid IV Q4H PRN Pain, Moderate (4-6) Hydrophilic Ointment 1 applic 04/06/20 13:34 Vaseline Lip Therapy TP Q2HR PRN Dry Lips Fentanyl Citrate 2,000 mcg in 100 mls @ 5.505 mls/hr 04/06/20 14:00 04/08/20 07:37 Fentanyl Drip Premix IV 2 mcg/kg/hr TITR NOEL 11.01 mls/hr Administration Protocol 1 MCG/KG/HR Nicardipine/Sodium Chloride 40 mg in 200 mls @ 25 mls/hr 04/06/20 17:00 04/06/20 23:23 Cardene Drip 40 Mg/200 Ml IV Infused TITR NOEL Titration Protocol 5 MG/HR Cefepime HCl 1 gm in 100 mls @ 200 mls/hr 04/06/20 20:00 04/07/20 21:33 Cefepime/Ns 1 Gm/100 Ml IV 200 mls/hr Q24H NOEL Administration Protocol Fluconazole 100 mg in 50 mls @ 50 mls/hr 04/07/20 10:00 04/08/20 10:48 Diflucan/Ns 100 Mg/50 Ml IV 04/09/20 10:59 50 mls/hr Q24HR NOEL Administration Protocol Linezolid 600 mg in 300 mls @ 300 mls/hr 04/07/20 10:00 04/07/20 21:32 Zyvox 600mg/300ml IV 300 mls/hr Q12HR NOEL Administration Protocol Sodium Chloride 250 mls @ 10 mls/hr 04/07/20 10:03 04/07/20 10:14 Nacl 0.9% 250ml IV 10 mls/hr DIRECT PRN Administration FOR ABX Sodium Chloride 100 mls @ 999 mls/hr 04/07/20 17:00 Nacl 0.9% IV SPRING PRN Hypotension Multi-Ingred Cream/Lotion/Oil/Oint 1 applic 04/06/20 13:34 Artificial Tears Ophth Oint OU Q4HR PRN Dry Eye(s) Simple Syrup 15 ml 04/07/20 10:23 Simple Syrup FEEDTUBE PRN PRN Hypoglycemia Simple Syrup 30 ml 04/07/20 10:23 Simple Syrup FEEDTUBE PRN PRN Hypoglycemia Sodium Bicarbonate 325 mg 04/07/20 10:23 Sodium Bicarbonate FEEDTUBE PRN PRN For Clogged Feeding Tube Sodium Chloride 10 ml 04/06/20 22:00 04/07/20 21:39 Sodium Chloride Flush Syringe 10 Ml IV 10 ml BID NOEL Administration Sodium Chloride 10 ml 04/06/20 16:32 Sodium Chloride Flush Syringe 10 Ml IV PRN PRN LINE FLUSH Nutrition/Malnutrition Assess - Dietary Evaluation Nutrition/Malnutrition Findings: Nutrition Notes Start: 04/07/20 08:19 Freq: Status: Active Protocol: Document 04/07/20 10:09 AL (Rec: 04/07/20 10:26 AL [id number]) Co-Sign 04/07/20 10:09 MK Nutrition Notes Need for 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 Tyson score = 11. Will order TF. Percent of energy/protein needs met: 0%/0% Burn Absent Trauma Absent GI Symptoms None Current % PO Negligible Minimum of two criteria No physical signs of malnutrition #1 Nutrition Diagnosis Inadequate oral intake Etiology respiratory failure As Evidenced by Signs and Symptoms patient is on mechanical vent and is unable to eat orally Is patient on ventilator? Yes Is Patient Ambulatory and/or Out of Bed No REE-([facility]-confined to bed) 2063.820 Kcal/Kg value to use for calculation 16 Approximate Energy Requirements Using 1762 kcal/Kg Calculation Used for Recommendations Kcal/kg Additional Notes Protein Needs: up to 142 g (up to 2.5 g/kg IBW) Fluid Needs: 1 mL/kcal Nutrition Intervention Change Diet Order: TF Nutrition Support: Nepro 1.8 at 45 mL/hr (goal rate) Flush 200 mL q4h Kcal 1,944 Protein (gm) 87 Fluid (mL) 785 Goal #1 Initiate TF Goal #2 Meet estimated energy and protein needs as best as possible via TF Anticipated Discharge Needs: Unable to determine at this time Follow-Up By: 04/11/20 Additional Comments F/U for TF tolerance
--- NOTE | 2020-04-08 11:38 | Progress Note ---
Assessment and Plan Impression: * End stage renal disease * r/o Catheter associated bacteremia --Blood cx: GPC clusters (05/29 bottles - Apr 06) * Acute hypoxic respiratory failure * Acute encephalopathy * Sepsis * UTI * Hx of COVID 19 --SARS Cov2 PCR negative Apr 07 * Metabolic acidosis Plan: * Patient is s/p HD yesterday - missed HD on * Resume TTS schedule today * UF as tolerated * STAT Hb ordered as patient w/ loss of blood due to clotted dialysis syste m/filter * Abx per ID * Await ID and senstivities of blood cultures * Vent management per CCM * Dose medications for renal function * AM labs Subjective Date of service: 04/08/20 Principal diagnosis: Ac on ch hypoxemic and hypercapnic resp failure; PUI COVID- 19 infxn; AMS Interval history: Patient remains intubated- Rate 12, TV 450, FiO2 40, PEEP 6. 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 Unable to return blood Objective - Vital Signs Vital signs: Vital Signs - 12hr 04/07/20 04/07/20 04/08/20 23:41 23:45 00:00 Temperature Pulse Rate 80 75 75 Pulse Rate [ From Monitor] Respiratory 11 L 15 11 L Rate Respiratory Rate [ Generalized] Blood Pressure 118/43 132/50 128/46 O2 Sat by Pulse 98 96 95 Oximetry 04/08/20 04/08/20 04/08/20 00:15 00:30 00:45 Temperature Pulse Rate 83 75 75 Pulse Rate [ From Monitor] Respiratory 13 12 12 Rate Respiratory Rate [ Generalized] Blood Pressure 144/54 118/41 123/45 O2 Sat by Pulse 96 95 96 Oximetry 04/08/20 04/08/20 04/08/20 00:46 01:00 01:15 Temperature Pulse Rate 74 75 Pulse Rate [ 74 From Monitor] Respiratory 14 12 12 Rate Respiratory Rate [ Generalized] Blood Pressure 113/41 131/48 O2 Sat by Pulse 98 95 95 Oximetry 04/08/20 04/08/20 04/08/20 01:30 01:40 01:45 Temperature Pulse Rate 75 74 Pulse Rate [ 75 From Monitor] Respiratory 12 14 15 Rate Respiratory Rate [ Generalized] Blood Pressure 138/48 146/44 O2 Sat by Pulse 96 98 96 Oximetry 04/08/20 04/08/20 04/08/20 02:00 02:15 02:31 Temperature Pulse Rate 74 79 73 Pulse Rate [ From Monitor] Respiratory 12 12 12 Rate Respiratory Rate [ Generalized] Blood Pressure 152/44 129/51 121/43 O2 Sat by Pulse 96 95 95 Oximetry 04/08/20 04/08/20 04/08/20 02:45 03:00 03:15 Temperature Pulse Rate 75 74 82 Pulse Rate [ From Monitor] Respiratory 12 12 12 Rate Respiratory Rate [ Generalized] Blood Pressure 116/44 119/43 119/43 O2 Sat by Pulse 95 95 95 Oximetry 04/08/20 04/08/20 04/08/20 03:23 03:30 03:31 Temperature 98.9 F Pulse Rate 79 78 Pulse Rate [ From Monitor] Respiratory 14 Rate Respiratory Rate [ Generalized] Blood Pressure 129/45 129/45 O2 Sat by Pulse 95 96 Oximetry 04/08/20 04/08/20 04/08/20 03:40 03:45 04:00 Temperature Pulse Rate 77 75 Pulse Rate [ 75 From Monitor] Respiratory 14 11 L 16 Rate Respiratory Rate [ Generalized] Blood Pressure 123/42 114/38 O2 Sat by Pulse 98 95 95 Oximetry 04/08/20 04/08/20 04/08/20 04:15 04:30 04:45 Temperature Pulse Rate 75 75 75 Pulse Rate [ From Monitor] Respiratory 10 L 14 12 Rate Respiratory Rate [ Generalized] Blood Pressure 114/38 113/45 116/37 O2 Sat by Pulse 96 95 95 Oximetry 04/08/20 04/08/20 04/08/20 05:00 05:15 05:30 Temperature Pulse Rate 74 73 80 Pulse Rate [ From Monitor] Respiratory 12 14 12 Rate Respiratory Rate [ Generalized] Blood Pressure 116/40 114/45 130/43 O2 Sat by Pulse 95 95 95 Oximetry 04/08/20 04/08/20 04/08/20 05:45 06:00 06:01 Temperature Pulse Rate 79 77 Pulse Rate [ 75 From Monitor] Respiratory 12 14 11 L Rate Respiratory Rate [ Generalized] Blood Pressure 139/43 108/45 O2 Sat by Pulse 95 98 95 Oximetry 04/08/20 04/08/20 04/08/20 06:15 08:00 08:30 Temperature 99.0 F 99.0 F Pulse Rate 78 90 Pulse Rate [ From Monitor] Respiratory 12 12 Rate Respiratory Rate [ Generalized] Blood Pressure 115/44 111/43 O2 Sat by Pulse 95 Oximetry 04/08/20 04/08/20 04/08/20 08:47 08:48 09:00 Temperature Pulse Rate 97 H 93 H 80 Pulse Rate [ From Monitor] Respiratory Rate Respiratory Rate [ Generalized] Blood Pressure 168/60 168/60 109/42 O2 Sat by Pulse 97 Oximetry 04/08/20 04/08/20 04/08/20 09:10 09:15 09:30 Temperature Pulse Rate 80 80 80 Pulse Rate [ From Monitor] Respiratory Rate Respiratory Rate [ Generalized] Blood Pressure 124/52 133/49 126/45 O2 Sat by Pulse Oximetry 04/08/20 04/08/20 04/08/20 09:45 10:00 10:15 Temperature Pulse Rate 80 81 77 Pulse Rate [ From Monitor] Respiratory Rate Respiratory 12 Rate [ Generalized] Blood Pressure 109/48 121/48 111/45 O2 Sat by Pulse Oximetry 04/08/20 04/08/20 04/08/20 10:30 10:45 11:00 Temperature Pulse Rate 78 90 79 Pulse Rate [ From Monitor] Respiratory Rate Respiratory Rate [ Generalized] Blood Pressure 126/51 101/43 124/55 O2 Sat by Pulse Oximetry - General Appearance General appearance: well-developed, well-nourished, intubated EENT: ATNC, other (ETT in place) Respiratory: Present: Clear to Ascultation Cardiology: regular, S1S2 Gastrointestinal: normal, no tenderness, no distended Musculoskeletal: other (no edema) Psychiatric: cooperative - Lab 04/08/20 11:55 04/06/20 14:30 Most recent lab results ABG pH 7.349 pH Units (7.350-7.450) L 04/08/20 Unknown ABG pCO2 44.5 mm Hg 04/08/20 Unknown ABG pO2 117.3 mm Hg (80.0-90.0) H 04/08/20 Unknown ABG HCO3 24.0 mmol/L (20.0-26.0) 04/08/20 Unknown ABG O2 Saturation 98.1 % (95.0-99.0) 04/08/20 Unknown Calcium 8.9 mg/dL (8.4-10.2) 04/06/20 14:30 Magnesium 2.50 mg/dL (1.7-2.3) H 11/12/20 14:30 Medications & Allergies - Medications Allergies/Adverse Reactions: Allergies carrot Allergy (Verified 07/28/19 12:30) Hives erythromycin base Allergy (Verified 07/30/19 11:26) Hives latex Allergy (Verified 02/18/19 13:20) Rash peas Allergy (Verified 12/20/19 12:37) Hives vancomycin Allergy (Verified 12/31/19 15:46) Hives Home Medications: Home Medications Medication Instructions Recorded Confirmed Last Taken Type Aripiprazole 5 mg PO DAILY 02/18/19 04/06/20 02/17/19 History Benadryl CAP 25 mg PO Q8H PRN 02/18/19 04/06/20 02/17/19 History Calcium Acetate 667 mg PO TIDWM 02/18/19 04/06/20 02/17/19 History Carvedilol 6.25 mg PO Q12H 02/18/19 04/06/20 02/17/19 History Colace CAP 100 mg PO Q12H PRN 02/18/19 04/06/20 02/17/19 History Esomeprazole Magnesium 40 mg PO QDAC 02/18/19 04/06/20 02/17/19 History HumaLOG 10 units SUB-Q TIDWM 02/18/19 04/06/20 02/17/19 History Insulin Detemir (Nf) [Levemir See Protocol SQ QHS 02/18/19 04/06/20 02/17/19 History Flextouch (Nf)] Losartan Potassium 50 mg PO DAILY 02/18/19 04/06/20 02/17/19 History Lyrica 75 mg PO Q12H 02/18/19 04/06/20 02/17/19 History Melatonin 6 mg PO QHS 02/18/19 04/06/20 02/17/19 History Senna 17.2 mg PO QHS PRN 02/18/19 04/06/20 02/17/19 History Venlafaxine HCl [Venlafaxine HCl 150 mg PO QDAC 02/18/19 04/06/20 02/17/19 History ER] Vitamin C 250 mg PO DAILY 02/18/19 04/06/20 02/17/19 History ZyrTEC 10mg cap 10 mg PO DAILY 02/18/19 04/06/20 02/17/19 History Calcium Acetate [Phoslo] 667 mg PO TIDWM capsule 12/22/19 04/06/20 Unknown Rx Fe Fumarate/FA/Mv, Min Comb#15 1 each PO QDAY capsule 12/22/19 04/06/20 Unknown Rx [Hemocyte Plus] Albuterol Mdi (or & Nicu Only) 2.5 puff IH Q4HRT PRN inha 01/12/20 04/06/20 Unknown Rx [ProAir HFA Inhaler] dexAMETHasone [Decadron] 6 mg PO Q12HR #10 tablet 01/12/20 04/06/20 Unknown Rx oxyCODONE 5 mg PO Q6H PRN #10 01/12/20 04/06/20 Unknown Rx Active Medications: Generic Name Dose Route Start Last Admin Trade Name Freq PRN Reason Stop Dose Admin Acetaminophen 650 mg 04/06/20 16:39 Tylenol PO Q6H PRN Pain, Mild (1-3) Lipase/Protease/Amylase 1 each 04/07/20 10:[address] 10,500 Unit FEEDTUBE PRN PRN For Clogged Feeding Tube Famotidine 20 mg 04/07/20 10:00 04/08/20 10:48 Pepcid PO 20 mg QDAY NOEL Administration Fentanyl 50 mcg 04/06/20 13:34 Sublimaze IV Q10MIN PRN ANALGESIA Heparin Sodium (Porcine) 5,000 unit 04/06/20 22:00 04/08/20 10:48 Heparin SUB-Q 5,000 unit Q12HR NOEL Administration Hydromorphone HCl 0.25 mg 04/06/20 16:39 Dilaudid IV Q4H PRN Pain, Moderate (4-6) Hydrophilic Ointment 1 applic 04/06/20 13:34 Vaseline Lip Therapy TP Q2HR PRN Dry Lips Fentanyl Citrate 2,000 mcg in 100 mls @ 5.505 mls/hr 04/06/20 14:00 04/08/20 07:37 Fentanyl Drip Premix IV 2 mcg/kg/hr TITR NOEL 11.01 mls/hr Administration Protocol 1 MCG/KG/HR Nicardipine/Sodium Chloride 40 mg in 200 mls @ 25 mls/hr 04/06/20 17:00 04/06/20 23:23 Cardene Drip 40 Mg/200 Ml IV Infused TITR NOEL Titration Protocol 5 MG/HR Cefepime HCl 1 gm in 100 mls @ 200 mls/hr 04/06/20 20:00 04/07/20 21:33 Cefepime/Ns 1 Gm/100 Ml IV 200 mls/hr Q24H NOEL Administration Protocol Fluconazole 100 mg in 50 mls @ 50 mls/hr 04/07/20 10:00 04/08/20 10:48 Diflucan/Ns 100 Mg/50 Ml IV 04/09/20 10:59 50 mls/hr Q24HR NOEL Administration Protocol Linezolid 600 mg in 300 mls @ 300 mls/hr 04/07/20 10:00 04/07/20 21:32 Zyvox 600mg/300ml IV 300 mls/hr Q12HR NOEL Administration Protocol Sodium Chloride 250 mls @ 10 mls/hr 04/07/20 10:03 04/07/20 10:14 Nacl 0.9% 250ml IV 10 mls/hr DIRECT PRN Administration FOR ABX Sodium Chloride 100 mls @ 999 mls/hr 04/07/20 17:00 Nacl 0.9% IV SPRING PRN Hypotension Multi-Ingred Cream/Lotion/Oil/Oint 1 applic 04/06/20 13:34 Artificial Tears Ophth Oint OU Q4HR PRN Dry Eye(s) Simple Syrup 15 ml 04/07/20 10:23 Simple Syrup FEEDTUBE PRN PRN Hypoglycemia Simple Syrup 30 ml 04/07/20 10:23 Simple Syrup FEEDTUBE PRN PRN Hypoglycemia Sodium Bicarbonate 325 mg 04/07/20 10:23 Sodium Bicarbonate FEEDTUBE PRN PRN For Clogged Feeding Tube Sodium Chloride 10 ml 04/06/20 22:00 04/07/20 21:39 Sodium Chloride Flush Syringe 10 Ml IV 10 ml BID NOEL Administration Sodium Chloride 10 ml 04/06/20 16:32 Sodium Chloride Flush Syringe 10 Ml IV PRN PRN LINE FLUSH
[2020-04-08 12:04] LABS: Hematocrit 31.1 % (30.3-42.9); Hemoglobin 10.3 gm/dl (10.1-14.3)
--- NOTE | 2020-04-08 15:30 | Progress Note ---
Assessment and Plan Cultures: Blood culture 04/06/2020 gram-positive cocci 1 out of 4 bottles Urine culture 04/06/2020 <10,000 mixed bacteria Respiratory culture 04/06/2020 poor specimen SARS-CoV-2 PCR negative Assessment: 49 years old female with history of asthma, hypertension, end-stage renal disease on hemodialysis, diabetes mellitus, bipolar disorder, morbid obesity, CVA, bilateral BKA's recent COVID-19 infection requiring intubation treated with dexamethasone in December 2019 [facility], resident of a fci, admitted on 04/06/2020 secondary to be found unresponsiveness after hemodialysis: #Severe sepsis: Present on admission with hypothermia, leukocytosis, altered mental status, likely due to bilateral pneumonia, bacteremia and UTI. #Bilateral pneumonia: Aspiration pneumonia/HAP. Of note, patient was recently admitted at [facility] in January 2020 requiring intubation for COVID-19 pneumonia. COVID-19 pneumonia was treated with dexamethasone. #Gram-positive cocci bacteremia: Patient has a PermCath ? PermCath infection versus contaminant. #Severe UTI: Bains catheter with purulent urine. #Acute hypoxemic respiratory failure: Intubated for airway protection, O2 sats down to 87%. Patient with recent COVID-19 pneumonia, intubated at [facility] in January 2020. #Acute encephalopathy: Likely due to sepsis #End-stage renal disease on hemodialysis #Extensive Candidal intertrigo in groin and vagina #Vancomycin allergy ? Causing hives. I reviewed records from [facility] and there is no documentation of vancomycin allergy, patient initially received vancomycin Recommendations: -Follow-up blood culture -Follow urine culture -Obtain sputum culture -Continue cefepime 1 g IV once a day -Continue fluconazole 100 mg IV qday for 3 days -Stop Zyvox -Start daptomycin renally adjusted for now. Once patient is extubated will discuss vancomycin rash? At [facility] there is no documentation of vancomycin hives. All laboratory, cultures and imaging were reviewed. Will follow Shirley Schmitt MD Infectious Diseases [employer] [facility] M [phone] O [phone] Subjective Date of service: 04/08/20 Principal diagnosis: Ac on ch hypoxemic and hypercapnic resp failure; PUI COVID- 19 infxn; AMS Interval history: Remains on the ventilator, FiO2 30%, PEEP of 6. Objective - Exam Narrative Exam: Physical Exam: reviewed ED and hospitalist notes, limited due to conservation of PPE and decrease risk of transmission. General appearance: limited due to conservation of PPE Eyes: limited due to conservation of PPE HENT: Atraumatic; limited due to conservation of PPE Lungs: limited due to conservation of PPE CV: limited due to conservation of PPE Abdomen: limited due to conservation of PPE Extremities: limited due to conservation of PPE Skin: limited due to conservation of PPE Psych: limited due to conservation of PPE Neuro: limited due to conservation of PPE - Constitutional Vitals: Vital Signs Temp Pulse Resp BP Pulse Ox 98.6 F 87 20 98/39 100 04/08/20 12:00 04/08/20 12:24 04/08/20 12:00 04/08/20 12:24 04/08/20 12:24 Temperature -Last 24 Hours Temperature 98.6 F Temperature 98.6 F Temperature 99.0 F Temperature 99.0 F Temperature 98.9 F Temperature 98.6 F Temperature 98.5 F - Labs CBC & Chem 7: 04/08/20 11:55 04/06/20 14:30 Labs: Abnormal lab results 04/07/20 04/07/20 04/08/20 Range/Units 16:38 23:51 04:58 ABG pH (7.350-7.450) pH Units ABG pO2 (80.0-90.0) mm Hg ABG Hemoglobin (12.0-16.0) gm/dl POC Glucose 117 H 129 H (70-105) mg/dL Hepatitis C Antibody Reactive A (NonReactive) 04/08/20 Range/Units Unknown ABG pH 7.349 L (7.350-7.450) pH Units ABG pO2 117.3 H (80.0-90.0) mm Hg ABG Hemoglobin 7.4 L (12.0-16.0) gm/dl POC Glucose (70-105) mg/dL Hepatitis C Antibody (NonReactive)
--- NOTE | 2020-04-08 16:42 | Progress Note ---
Assessment and Plan Acute on chronic hypoxemic and hypercapnic respiratory failure. Coronavirus-19 infection. Acute encephalopathy. Bibasilar atelectasis. End-stage renal disease, on dialysis. Morbid obesity. History of a cerebrovascular accident. Diabetes type 2. History of chronic obstructive pulmonary disease. History of anemia. - prn Labetalol - get bilateral lower extremity dopplers for VTE evaluation - continue fentanyl for sedation / analgesia - keep set rate at 12/min - continue care as below otherwise; - continue Daily SAT and SBT assessment as tolerated - continue to wean supplemental oxygen for target O2 sat's > 90% acutely - VAP bundle addressed - continue lung protective strategies - continue bronchodilators with pulmonary hygiene per RT - wean per pulmonary driven protocols otherwise - continue accuchecks with glycemic control per SSI (While critically ill target blood glucose of 140-180 mg/dL; avoid hypoglycemia) - sedation prn for target RASS 0 to -1 - avoid nephrotoxins, renally dose all medications - continue to avoid benzodiazepine's, reduce the possibility of delirium - complete AB's per ID rec's - prn analgesia per CPOT score - Maintenance of sleep-wake cycle, avoid delirium - continue enteral nutritional support at goal rate as tolerated - G.I. & VTE prophylaxis - PT/OT/ROM exercises - continue mobility protocols for pressure ulcer prophylaxis - Monitor hemodynamics closely - continue other care per attending / other consultants - discharge planning ongoing concurrently .... Re-evaluate in am & prn CONDITION: CRITICAL PROGNOSIS: GUARDED CODE STATUS: FULL CODE The high probability of a clinically significant, sudden or life-threatening deterioration of the [respiratory, cardiovascular, renal & neurologic] system(s) required my full and direct attention, intervention and personal management. The aggregate critical care time was [35] minutes without overlap. Time includes spent on; [x] Data Review and interpretation [x] Patient assessment and monitoring of vital signs [x] Documentation [x] Medication orders and management Subjective Date of service: 04/08/20 Principal diagnosis: Ac on ch hypoxemic and hypercapnic resp failure; PUI COVID- 19 infxn; AMS Interval history: Patient is seen today for: Acute on chronic hypoxemic and hypercapnic resp failure; PUI Coronavirus-19 infection; Acute encephalopathy; ESRD; Morbid obesity; DM II; AE-COPD Seen and examined at bedside; 24hour events reviewed; nursing and respiratory care staff consulted; no adverse overnight events reported to me; resting peacefully in bed; remains on MVS; AMS is persistent; tolerated some weaning earlier but stopped due to elevated BP's and increased work of breathing; No emesis or overt aspiration Objective Vital Signs - 12hr 04/08/20 04/08/20 04/08/20 04:45 05:00 05:15 Temperature Pulse Rate 75 74 73 Pulse Rate [ From Monitor] Respiratory 12 12 14 Rate Respiratory Rate [ Generalized] Blood Pressure 116/37 116/40 114/45 O2 Sat by Pulse 95 95 95 Oximetry 04/08/20 04/08/20 04/08/20 05:30 05:45 06:00 Temperature Pulse Rate 80 79 Pulse Rate [ 75 From Monitor] Respiratory 12 12 14 Rate Respiratory Rate [ Generalized] Blood Pressure 130/43 139/43 O2 Sat by Pulse 95 95 98 Oximetry 04/08/20 04/08/20 04/08/20 06:01 06:15 08:00 Temperature 99.0 F Pulse Rate 77 78 Pulse Rate [ 103 H From Monitor] Respiratory 11 L 12 16 Rate Respiratory Rate [ Generalized] Blood Pressure 108/45 115/44 O2 Sat by Pulse 95 95 98 Oximetry 04/08/20 04/08/20 04/08/20 08:30 08:47 08:48 Temperature 99.0 F Pulse Rate 90 97 H 93 H Pulse Rate [ From Monitor] Respiratory 12 Rate Respiratory Rate [ Generalized] Blood Pressure 111/43 168/60 168/60 O2 Sat by Pulse 97 Oximetry 04/08/20 04/08/20 04/08/20 09:00 09:10 09:15 Temperature Pulse Rate 80 80 80 Pulse Rate [ From Monitor] Respiratory Rate Respiratory Rate [ Generalized] Blood Pressure 109/42 124/52 133/49 O2 Sat by Pulse Oximetry 04/08/20 04/08/20 04/08/20 09:30 09:45 10:00 Temperature Pulse Rate 80 80 79 Pulse Rate [ From Monitor] Respiratory Rate Respiratory 12 Rate [ Generalized] Blood Pressure 126/45 109/48 121/48 O2 Sat by Pulse Oximetry 04/08/20 04/08/20 04/08/20 10:15 10:30 10:45 Temperature Pulse Rate 77 78 90 Pulse Rate [ From Monitor] Respiratory Rate Respiratory Rate [ Generalized] Blood Pressure 111/45 126/51 101/43 O2 Sat by Pulse Oximetry 04/08/20 04/08/20 04/08/20 11:00 11:15 11:30 Temperature Pulse Rate 79 78 78 Pulse Rate [ From Monitor] Respiratory Rate Respiratory Rate [ Generalized] Blood Pressure 124/55 118/57 97/47 O2 Sat by Pulse Oximetry 04/08/20 04/08/20 04/08/20 11:39 11:41 11:50 Temperature 98.6 F Pulse Rate 75 Pulse Rate [ 77 From Monitor] Respiratory 12 Rate Respiratory Rate [ Generalized] Blood Pressure 109/52 O2 Sat by Pulse 99 Oximetry 04/08/20 04/08/20 04/08/20 12:00 12:24 15:26 Temperature 98.6 F Pulse Rate 79 87 102 H Pulse Rate [ From Monitor] Respiratory 20 12 Rate Respiratory Rate [ Generalized] Blood Pressure 101/44 98/39 169/72 O2 Sat by Pulse 100 98 Oximetry 04/08/20 16:00 Temperature 99.5 F Pulse Rate Pulse Rate [ From Monitor] Respiratory Rate Respiratory Rate [ Generalized] Blood Pressure O2 Sat by Pulse Oximetry Constitutional: appears uncomfortable, other (middle aged obese female with mild ventilator dys-synchrony) Eyes: non-icteric ENT: oropharynx moist, other (ETT 23 cm PARRISH) Neck: supple, no lymphadenopathy, no JVD Effort: mildly labored Ascultation: Bilateral: diminished breath sounds, rhonchi Percussion: Bilateral: not dull Cardiovascular: regular rate and rhythm Gastrointestinal: normoactive bowel sounds, soft, non-tender, non-distended (protuberant) Integumentary: erythema (right BKA stump) Extremities: no cyanosis, no edema, no ischemia or petechiae Neurologic: non-focal exam (grossly), pupils equal and round, unable to assess Psychiatric: other (unable to assess re: AMS) CBC and BMP: 04/08/20 11:55 04/06/20 14:30 ABG, PT/INR, D-dimer: ABG ABG pH 7.349 pH Units (7.350-7.450) L 04/08/20 Unknown POC ABG pCO2 34.4 mmHg (32.0-48.0) 04/07/20 10:01 ABG pCO2 44.5 mm Hg 04/08/20 Unknown POC ABG pO2 79.8 mmHg (83-108) L 04/07/20 10:01 ABG pO2 117.3 mm Hg (80.0-90.0) H 04/08/20 Unknown POC ABG HCO3 18.1 04/07/20 10:01 ABG O2 Saturation 98.1 % (95.0-99.0) 04/08/20 Unknown PT/INR, D-dimer PT 13.8 Sec. (12.2-14.9) 04/06/20 14:30 INR 1.04 (0.87-1.13) 04/06/20 14:30 D-Dimer 1063.66 ng/mlDDU (0-234) H 04/07/20 09:34 Abnormal lab findings: Abnormal Labs 04/06/20 04/06/20 04/06/20 13:34 14:30 14:30 WBC 19.2 H RDW 17.8 H Seg Neuts % (Manual) 90.0 H Lymphocytes % (Manual) 4.0 L Seg Neutrophils # Man 17.3 H Lymphocytes # (Manual) 0.8 L D-Dimer ABG pH POC ABG pO2 ABG pO2 ABG HCO3 ABG Base Excess ABG Hemoglobin ABG Chloride Potassium 5.2 H Carbon Dioxide 17 L BUN 53 H Creatinine 7.8 H Glucose 144 H POC Glucose Magnesium Ferritin Alkaline Phosphatase 738 H Lactate Dehydrogenase Total Creatine Kinase 23 L Troponin T 0.224 H* C-Reactive Protein Albumin 3.1 L Triglycerides 342 H Cholesterol 223 H HDL Cholesterol 35 L Arterial Blood Ionized Calcium Urine WBC (Auto) > 182.0 H Salicylates Acetaminophen Hepatitis C Antibody 04/06/20 04/06/20 04/06/20 14:30 14:30 14:30 WBC RDW Seg Neuts % (Manual) Lymphocytes % (Manual) Seg Neutrophils # Man Lymphocytes # (Manual) D-Dimer ABG pH POC ABG pO2 ABG pO2 ABG HCO3 ABG Base Excess ABG Hemoglobin ABG Chloride Potassium Carbon Dioxide BUN Creatinine Glucose POC Glucose Magnesium 2.50 H Ferritin Alkaline Phosphatase Lactate Dehydrogenase Total Creatine Kinase 24 L Troponin T C-Reactive Protein Albumin Triglycerides Cholesterol HDL Cholesterol Arterial Blood Ionized Calcium Urine WBC (Auto) Salicylates < 0.3 L Acetaminophen 5.0 L Hepatitis C Antibody 04/06/20 04/06/20 04/07/20 14:39 20:00 00:48 WBC RDW Seg Neuts % (Manual) Lymphocytes % (Manual) Seg Neutrophils # Man Lymphocytes # (Manual) D-Dimer ABG pH 7.281 L 7.306 L POC ABG pO2 78.0 L ABG pO2 133.8 H ABG HCO3 18.3 L ABG Base Excess -7.8 L ABG Hemoglobin 10.8 L 10.8 L ABG Chloride 108.0 H Potassium Carbon Dioxide BUN Creatinine Glucose POC Glucose 69 L Magnesium Ferritin Alkaline Phosphatase Lactate Dehydrogenase Total Creatine Kinase Troponin T C-Reactive Protein Albumin Triglycerides Cholesterol HDL Cholesterol Arterial Blood Ionized Calcium Urine WBC (Auto) Salicylates Acetaminophen Hepatitis C Antibody 04/07/20 04/07/20 04/07/20 09:34 09:34 09:34 WBC RDW Seg Neuts % (Manual) Lymphocytes % (Manual) Seg Neutrophils # Man Lymphocytes # (Manual) D-Dimer 1063.66 H ABG pH POC ABG pO2 ABG pO2 ABG HCO3 ABG Base Excess ABG Hemoglobin ABG Chloride Potassium Carbon Dioxide BUN Creatinine Glucose POC Glucose Magnesium Ferritin 743.0 H Alkaline Phosphatase Lactate Dehydrogenase 195 H Total Creatine Kinase Troponin T C-Reactive Protein 7.50 H Albumin Triglycerides Cholesterol HDL Cholesterol Arterial Blood Ionized Calcium Urine WBC (Auto) Salicylates Acetaminophen Hepatitis C Antibody 04/07/20 04/07/20 04/07/20 10:01 16:38 23:51 WBC RDW Seg Neuts % (Manual) Lymphocytes % (Manual) Seg Neutrophils # Man Lymphocytes # (Manual) D-Dimer ABG pH POC ABG pO2 79.8 L ABG pO2 ABG HCO3 ABG Base Excess ABG Hemoglobin 10.3 L ABG Chloride 109.0 H Potassium Carbon Dioxide BUN Creatinine Glucose POC Glucose 117 H Magnesium Ferritin Alkaline Phosphatase Lactate Dehydrogenase Total Creatine Kinase Troponin T C-Reactive Protein Albumin Triglycerides Cholesterol HDL Cholesterol Arterial Blood Ionized Calcium 4.5 L Urine WBC (Auto) Salicylates Acetaminophen Hepatitis C Antibody Reactive A 04/08/20 04/08/20 04:58 Unknown WBC RDW Seg Neuts % (Manual) Lymphocytes % (Manual) Seg Neutrophils # Man Lymphocytes # (Manual) D-Dimer ABG pH 7.349 L POC ABG pO2 ABG pO2 117.3 H ABG HCO3 ABG Base Excess ABG Hemoglobin 7.4 L ABG Chloride Potassium Carbon Dioxide BUN Creatinine Glucose POC Glucose 129 H Magnesium Ferritin Alkaline Phosphatase Lactate Dehydrogenase Total Creatine Kinase Troponin T C-Reactive Protein Albumin Triglycerides Cholesterol HDL Cholesterol Arterial Blood Ionized Calcium Urine WBC (Auto) Salicylates Acetaminophen Hepatitis C Antibody Chest x-ray: image reviewed (bibasilar infiltrates / atelectasis is stable) Allied health notes reviewed: nursing
[2020-04-08] MEDS: CEFEPIME/NS 1 GM/100 ML 1 GM/100 ML BAG IV SCH (20:39)
--- NOTE | 2020-04-09 04:33 | XRay Report ---
CHEST 1 VIEW 04/09/2020 3:22 AM INDICATION / CLINICAL INFORMATION: follow up respiratory failure. COMPARISON: 04/08/2020 FINDINGS: SUPPORT DEVICES: Stable, satisfactory device positioning. HEART / MEDIASTINUM: Stable. LUNGS / PLEURA: Mildly improved bibasilar opacities. No pneumothorax. ADDITIONAL FINDINGS: No significant additional findings. IMPRESSION: 1. Mild improvement in bibasilar opacities. Signer Name: Jaswinder Us MD Signed: 04/09/2020 4:29 AM Workstation Name: [employer]
[2020-04-09] MEDS: SODIUM CHLORIDE 0.9% 250ML 250 ML IV PRN (05:38)
[2020-04-09] MEDS: fentaNYL DRIP Premix 2,000 MCG/100 ML BAG IV SCH ×3 (05:39→19:52)
--- NOTE | 2020-04-09 09:23 | Progress Note ---
Assessment and Plan Assessment and plan: Severe sepsis. Present on admission with hypothermia, leukocytosis, altered mental status, likely due to bilateral pneumonia. F/U Blood Cx. Cont. Abx pre ID Bilateral pneumonia. Aspiration pneumonia/HAP Severe UTI. Bains catheter with purulent urine. Acute hypoxemic respiratory failure. Intubated for airway protection, O2 sats down to 87%. Toxic metabolic encephalopathy. Etiology secondary to sepsis End-stage renal disease on hemodialysis Extensive Candidal intertrigo in groin and vagina. Cont. Fluconazole History COVID-19 infection (01/07/2020) 04/08/2020. Patient remains intubated on mechanical ventilation with AC mode ventilation rate 12, tidal volume 450, FiO2 40% and a PEEP of 6. Continue weaning per protocols. Patient with ESRD and continue TTS schedule per nephrology. Patient does have a history of COVID-19 infection(01/07/20) but negative testing April 07. Follow-up blood/urine/sputum culture. Continue antibiotics per ID recommendations. 04/09/2020. Patient not tolerating PSV 12/6 with FiO2 of 30%. Continue hemodialysis per nephrology recommendations. Continue IV antibiotics per ID recommendations. Blood cultures no growth to date. Respiratory therapy reports patient with accelerated hypertension and apneic episodes on PSV ventilation. Await pulmonary recommendations. The high probability of a clinically significant, sudden or life threatening deterioration of the [respiratory] system(s) required my full and direct attention, intervention and personal management. The aggregate critical care time was [31] minutes. This time is in addition to time spent performing reported procedures but includes the following: [x] Data Review and interpretation [x] Patient assessment and monitoring of vital signs [x] Documentation [x] Medication orders and management History Interval history: 49 years old female with history of asthma, hypertension, end-stage renal disease on hemodialysis, diabetes mellitus, bipolar disorder, morbid obesity, CVA, resident of a snf, admitted on 04/06/2020 secondary to be found Unresponsiveness after hemodialysis. Patient is unable to provide history, cur rently intubated. Patient received hemodialysis and after completion she became unresponsive. Upon EMS arrival, blood pressure was 90/60, HR 88, temperature 97.2. Per records, patient was not complaining of any symptoms. On arrival, temperature 94.1, HR 66, RR 18, O2 sat 87%, BP 131/111. Initial WBC 19.2. Urinalysis showed more than 182 WBCs and moderate leukocyte esterase. Chest x- ray shows bibasilar infiltrates. Patient was intubated in the emergency room to protect airway. Bains catheter was placed yielding purulent urine. Hospitalist Physical - Constitutional Vitals: Temp Pulse Resp BP Pulse Ox 98.9 F 108 H 15 177/74 99 04/09/20 08:00 04/09/20 08:15 04/09/20 08:15 04/09/20 08:15 04/09/20 08:15 General appearance: Present: severe distress - EENT Eyes: Present: PERRL, EOM intact ENT: hearing intact, clear oral mucosa, dentition normal - Neck Neck: Present: supple, normal ROM - Respiratory Respiratory effort: normal Respiratory: bilateral: CTA - Cardiovascular Rhythm: regular Heart Sounds: Present: S1 & S2. Absent: gallop, rub - Extremities Extremities: no ischemia, No edema, Full ROM - Abdominal General gastrointestinal: soft, non-tender, non-distended, normal bowel sounds - Integumentary Integumentary: Present: clear, warm, dry - Neurologic Neurologic: CNII-XII intact, moves all extremities HEART Score - HEART Score Troponin: Troponin T 0.224 ng/mL (0.00-0.029) H* 04/06/20 14:30 Results - Labs CBC & Chem 7: 04/08/20 11:55 04/06/20 14:30 Labs: Laboratory Last Values WBC 19.2 K/mm3 (4.5-11.0) H 04/06/20 14:30 RBC 3.79 M/mm3 (3.65-5.03) 04/06/20 14:30 Hgb 10.3 gm/dl (10.1-14.3) 04/08/20 11:55 Hct 31.1 % (30.3-42.9) 04/08/20 11:55 MCV 92 fl (79-97) 04/06/20 14:30 MCH 29 pg (28-32) 04/06/20 14:30 MCHC 31 % (30-34) 04/06/20 14:30 RDW 17.8 % (13.2-15.2) H 04/06/20 14:30 Plt Count 425 K/mm3 (140-440) 04/06/20 14:30 Add Manual Diff Complete 04/06/20 14:30 Total Counted 100 04/06/20 14:30 Seg Neuts % (Manual) 90.0 % (40.0-70.0) H 04/06/20 14:30 Band Neutrophils % 1.0 % 04/06/20 14:30 Lymphocytes % (Manual) 4.0 % (13.4-35.0) L 04/06/20 14:30 Reactive Lymphs % (Man) 0 % 04/06/20 14:30 Monocytes % (Manual) 3.0 % (0.0-7.3) 04/06/20 14:30 Eosinophils % (Manual) 2.0 % (0.0-4.3) 04/06/20 14:30 Basophils % (Manual) 0 % (0.0-1.8) 04/06/20 14:30 Metamyelocytes % 0 % 04/06/20 14:30 Myelocytes % 0 % 04/06/20 14:30 Promyelocytes % 0 % 04/06/20 14:30 Blast Cells % 0 % 04/06/20 14:30 Nucleated RBC % Not Reportable 04/06/20 14:30 Seg Neutrophils # Man 17.3 K/mm3 (1.8-7.7) H 04/06/20 14:30 Band Neutrophils # 0.2 K/mm3 04/06/20 14:30 Lymphocytes # (Manual) 0.8 K/mm3 (1.2-5.4) L 04/06/20 14:30 Abs React Lymphs (Man) 0.0 K/mm3 04/06/20 14:30 Monocytes # (Manual) 0.6 K/mm3 (0.0-0.8) 04/06/20 14:30 Eosinophils # (Manual) 0.4 K/mm3 (0.0-0.4) 04/06/20 14:30 Basophils # (Manual) 0.0 K/mm3 (0.0-0.1) 04/06/20 14:30 Metamyelocytes # 0.0 K/mm3 04/06/20 14:30 Myelocytes # 0.0 K/mm3 04/06/20 14:30 Promyelocytes # 0.0 K/mm3 04/06/20 14:30 Blast Cells # 0.0 K/mm3 04/06/20 14:30 WBC Morphology Not Reportable 04/06/20 14:30 Hypersegmented Neuts Not Reportable 04/06/20 14:30 Hyposegmented Neuts Not Reportable 04/06/20 14:30 Hypogranular Neuts Not Reportable 04/06/20 14:30 Smudge Cells Not Reportable 04/06/20 14:30 Toxic Granulation Not Reportable 04/06/20 14:30 Toxic Vacuolation Not Reportable 04/06/20 14:30 Dohle Bodies Not Reportable 04/06/20 14:30 Pelger-Huet Anomaly Not Reportable 04/06/20 14:30 Stephanie Rods Not Reportable 04/06/20 14:30 Platelet Estimate Consistent w auto 04/06/20 14:30 Clumped Platelets Not Reportable 04/06/20 14:30 Plt Clumps, EDTA Not Reportable 04/06/20 14:30 Large Platelets Not Reportable 04/06/20 14:30 Giant Platelets Not Reportable 04/06/20 14:30 Platelet Satelliting Not Reportable 04/06/20 14:30 Plt Morphology Comment Not Reportable 04/06/20 14:30 RBC Morphology Not Reportable 04/06/20 14:30 Dimorphic RBCs Not Reportable 04/06/20 14:30 Polychromasia Not Reportable 04/06/20 14:30 Hypochromasia Not Reportable 04/06/20 14:30 Poikilocytosis Not Reportable 04/06/20 14:30 Anisocytosis Few 04/06/20 14:30 Microcytosis Not Reportable 04/06/20 14:30 Macrocytosis Few 04/06/20 14:30 Spherocytes Not Reportable 04/06/20 14:30 Pappenheimer Bodies Not Reportable 04/06/20 14:30 Sickle Cells Not Reportable 04/06/20 14:30 Target Cells Not Reportable 04/06/20 14:30 Tear Drop Cells Not Reportable 04/06/20 14:30 Ovalocytes Not Reportable 04/06/20 14:30 Helmet Cells Not Reportable 04/06/20 14:30 [place] Bodies Not Reportable 04/06/20 14:30 [place] Rings Not Reportable 04/06/20 14:30 Michael Cells Not Reportable 04/06/20 14:30 Bite Cells Not Reportable 04/06/20 14:30 Crenated Cell Not Reportable 04/06/20 14:30 Elliptocytes Not Reportable 04/06/20 14:30 Acanthocytes (Spur) Not Reportable 04/06/20 14:30 Rouleaux Not Reportable 04/06/20 14:30 Hemoglobin C Crystals Not Reportable 04/06/20 14:30 Schistocytes Not Reportable 04/06/20 14:30 Malaria parasites Not Reportable 04/06/20 14:30 Lc Bodies Not Reportable 04/06/20 14:30 Hem Pathologist Commnt No 04/06/20 14:30 PT 13.8 Sec. (12.2-14.9) 04/06/20 14:30 INR 1.04 (0.87-1.13) 04/06/20 14:30 APTT 28.1 Sec. (24.2-36.6) 04/06/20 14:30 D-Dimer 1063.66 ng/mlDDU (0-234) H 04/07/20 09:34 ABG pH 7.378 (7.320-7.450) 04/09/20 Unknown POC ABG pCO2 51.6 mmHg (32.0-48.0) H 04/09/20 Unknown ABG pCO2 44.5 mm Hg 04/08/20 Unknown POC ABG pO2 87.8 mmHg (83-108) 04/09/20 Unknown ABG pO2 117.3 mm Hg (80.0-90.0) H 04/08/20 Unknown POC ABG HCO3 29.7 04/09/20 Unknown ABG HCO3 24.0 mmol/L (20.0-26.0) 04/08/20 Unknown ABG O2 Saturation 98.1 % (95.0-99.0) 04/08/20 Unknown ABG O2 Content 10.2 (0.0-44) 04/08/20 Unknown POC ABG Base Excess 3.7 04/09/20 Unknown ABG Base Excess -1.6 mmol/L (-2.0-3.0) 04/08/20 Unknown ABG Hemoglobin 11.4 (12.0-17.5) L 04/09/20 Unknown ABG Carboxyhemoglobin 1.6 % (0.0-5.0) 04/08/20 Unknown ABG Methemoglobin 0.4 % (0.0-1.5) 04/08/20 Unknown ABG Sodium 130.1 mmol/L (136.0-145.0) L 04/09/20 Unknown ABG Potassium 3.6 mmol/L (3.40-4.50) 04/09/20 Unknown ABG Chloride 105.0 mmol/L (98-107) 04/09/20 Unknown ABG Glucose 249 mg/dL (65-95) H 04/09/20 Unknown Oxyhemoglobin 96.1 % (95.0-99.0) 04/08/20 Unknown FiO2 40 % 04/08/20 Unknown Sodium 141 mmol/L (137-145) 04/06/20 14:30 Potassium 5.2 mmol/L (3.6-5.0) H 04/06/20 14:30 Chloride 103.7 mmol/L (98-107) 04/06/20 14:30 Carbon Dioxide 17 mmol/L (22-30) L 04/06/20 14:30 Anion Gap 26 mmol/L 04/06/20 14:30 BUN 53 mg/dL (7-17) H 04/06/20 14:30 Creatinine 7.8 mg/dL (0.6-1.2) H 04/06/20 14:30 Estimated GFR 5 ml/min 04/06/20 14:30 BUN/Creatinine Ratio 7 % 04/06/20 14:30 Glucose 144 mg/dL (65-100) H 04/06/20 14:30 POC Glucose 248 mg/dL (70-105) H 04/09/20 05:31 Lactic Acid 1.00 mmol/L (0.7-2.0) 04/06/20 23:09 Calcium 8.9 mg/dL (8.4-10.2) 04/06/20 14:30 Magnesium 2.50 mg/dL (1.7-2.3) H 04/06/20 14:30 Ferritin 743.0 ng/mL (10.0-200.0) H 04/07/20 09:34 Total Bilirubin 0.30 mg/dL (0.1-1.2) 04/06/20 14:30 AST 39 units/L (5-40) 04/06/20 14:30 ALT 21 units/L (7-56) 04/06/20 14:30 Alkaline Phosphatase 738 units/L (35-129) H 04/06/20 14:30 Ammonia 43.0 umol/L (25-60) 04/06/20 14:30 Lactate Dehydrogenase 195 units/L (91-180) H 04/07/20 09:34 Total Creatine Kinase 23 units/L (30-135) L 04/06/20 14:30 Total Creatine Kinase 24 units/L (30-135) L 04/06/20 14:30 Troponin T 0.224 ng/mL (0.00-0.029) H* 04/06/20 14:30 C-Reactive Protein 7.50 mg/dL (0.00-1.30) H 04/07/20 09:34 Total Protein 8.1 g/dL (6.3-8.2) 04/06/20 14:30 Albumin 3.1 g/dL (3.9-5) L 04/06/20 14:30 Albumin/Globulin Ratio 0.6 % 04/06/20 14:30 Triglycerides 342 mg/dL (2-149) H 04/06/20 14:30 Cholesterol 223 mg/dL (50-199) H 04/06/20 14:30 LDL Cholesterol Direct 123 mg/dL (50-130) 04/06/20 14:30 HDL Cholesterol 35 mg/dL (40-59) L 04/06/20 14:30 Cholesterol/HDL Ratio 6.37 % 04/06/20 14:30 TSH 1.320 mlU/mL (0.270-4.200) 04/06/20 14:30 HCG, Qual Negative (Negative) 04/06/20 14:30 Arterial Blood Glucose 249 mg/dL (65-95) H 04/09/20 Unknown Arterial Blood Ionized Calcium 4.1 mg/dL (4.6-5.3) L 04/09/20 Unknown Urine Color Yellow (Yellow) 04/06/20 13:34 Urine Turbidity Turbid (Clear) 04/06/20 13:34 Urine pH 7.0 (5.0-7.0) 04/06/20 13:34 Ur Specific [place] 1.017 (1.003-1.030) 04/06/20 13:34 Urine Protein 100 mg/dl mg/dL (Negative) 04/06/20 13:34 Urine Glucose (UA) 50 mg/dL (Negative) 04/06/20 13:34 Urine Ketones Tr mg/dL (Negative) 04/06/20 13:34 Urine Blood Sm (Negative) 04/06/20 13:34 Urine Nitrite Neg (Negative) 04/06/20 13:34 Urine Bilirubin Neg (Negative) 04/06/20 13:34 Urine Urobilinogen < 2.0 mg/dL (<2.0) 04/06/20 13:34 Ur Leukocyte Esterase Mod (Negative) 04/06/20 13:34 Urine WBC (Auto) > 182.0 /HPF (0.0-6.0) H 04/06/20 13:34 Urine RBC (Auto) 49.0 /HPF (0.0-6.0) 04/06/20 13:34 U Epithel Cells (Auto) 6.0 /HPF (0-13.0) 04/06/20 13:34 Urine Bacteria (Auto) 2+ /HPF (Negative) 04/06/20 13:34 Urine WBC Clumps 3+ /HPF 04/06/20 13:34 Urine Mucus 3+ /HPF 04/06/20 13:34 Salicylates < 0.3 mg/dL (2.8-20.0) L 04/06/20 14:30 Acetaminophen 5.0 ug/mL (10.0-30.0) L 04/06/20 14:30 Plasma/Serum Alcohol < 0.01 % (0-0.07) 04/06/20 14:30 Coronavirus (PCR) Negative (Negative) 04/07/20 Unknown Hepatitis A IgM Ab Non-reactive (NonReactive) 04/07/20 16:38 Hep Bs Antigen Non-reactive (Negative) 04/07/20 16:38 Hep B Core IgM Ab Non-reactive (NonReactive) 04/07/20 16:38 Hepatitis C Antibody Reactive (NonReactive) A 04/07/20 16:38 Blood Type O POSITIVE 04/06/20 14:30 Antibody Screen Negative 04/06/20 14:30 Microbiology: Microbiology 04/06/20 Unknown Urine,Catheterized - Indwelling Catheter Urine Culture - Final 04/06/20 14:30 Peripheral/Venous Blood Culture - Preliminary NO GROWTH AFTER 48 HOURS Bains/IV: Voiding Method Indwelling Catheter IV Catheter Type [Left INT / Saline Lock Antecubital] IV Catheter Type [Right INT / Saline Lock Forearm] Active Medications - Current Medications Current Medications: Generic Name Dose Route Start Last Admin Trade Name Freq PRN Reason Stop Dose Admin Acetaminophen 650 mg 04/06/20 16:39 Tylenol PO Q6H PRN Pain, Mild (1-3) Lipase/Protease/Amylase 1 each 04/07/20 10:[address] 10,500 Unit FEEDTUBE PRN PRN For Clogged Feeding Tube Famotidine 20 mg 04/07/20 10:00 04/08/20 10:48 Pepcid PO 20 mg QDAY NOEL Administration Fentanyl 50 mcg 04/06/20 13:34 Sublimaze IV Q10MIN PRN ANALGESIA Heparin Sodium (Porcine) 5,000 unit 04/06/20 22:00 04/08/20 23:49 Heparin SUB-Q 5,000 unit Q12HR NOEL Administration Hydromorphone HCl 0.25 mg 04/06/20 16:39 Dilaudid IV Q4H PRN Pain, Moderate (4-6) Hydrophilic Ointment 1 applic 04/06/20 13:34 Vaseline Lip Therapy TP Q2HR PRN Dry Lips Fentanyl Citrate 2,000 mcg in 100 mls @ 5.505 mls/hr 04/06/20 14:00 04/09/20 05:39 Fentanyl Drip Premix IV 1 mcg/kg/hr TITR NOEL 5.505 mls/hr Administration Protocol 1 MCG/KG/HR Nicardipine/Sodium Chloride 40 mg in 200 mls @ 25 mls/hr 04/06/20 17:00 04/06/20 23:23 Cardene Drip 40 Mg/200 Ml IV Infused TITR NOEL Titration Protocol 5 MG/HR Cefepime HCl 1 gm in 100 mls @ 200 mls/hr 04/06/20 20:00 04/08/20 20:39 Cefepime/Ns 1 Gm/100 Ml IV 200 mls/hr Q24H NOEL Administration Protocol Fluconazole 100 mg in 50 mls @ 50 mls/hr 04/07/20 10:00 04/08/20 10:48 Diflucan/Ns 100 Mg/50 Ml IV 04/09/20 10:59 50 mls/hr Q24HR NOEL Administration Protocol Sodium Chloride 250 mls @ 10 mls/hr 04/07/20 10:03 04/09/20 05:38 Nacl 0.9% 250ml IV 10 mls/hr DIRECT PRN Administration FOR ABX Sodium Chloride 100 mls @ 999 mls/hr 04/07/20 17:00 Nacl 0.9% IV SPRING PRN Hypotension Daptomycin 600 mg/ Sodium 100 mls @ 200 mls/hr 04/08/20 17:00 04/08/20 18:24 Chloride IV 200 mls/hr Q48H NOEL Administration Protocol Labetalol HCl 10 mg 04/08/20 17:17 04/08/20 20:40 Labetalol IV 10 mg Q4H PRN Administration Blood Pressure Multi-Ingred Cream/Lotion/Oil/Oint 1 applic 04/06/20 13:34 Artificial Tears Ophth Oint OU Q4HR PRN Dry Eye(s) Simple Syrup 15 ml 04/07/20 10:23 Simple Syrup FEEDTUBE PRN PRN Hypoglycemia Simple Syrup 30 ml 04/07/20 10:23 Simple Syrup FEEDTUBE PRN PRN Hypoglycemia Sodium Bicarbonate 325 mg 04/07/20 10:23 Sodium Bicarbonate FEEDTUBE PRN PRN For Clogged Feeding Tube Sodium Chloride 10 ml 04/06/20 22:00 04/09/20 05:37 Sodium Chloride Flush Syringe 10 Ml IV 10 ml BID NOEL Administration Sodium Chloride 10 ml 04/06/20 16:32 Sodium Chloride Flush Syringe 10 Ml IV PRN PRN LINE FLUSH Nutrition/Malnutrition Assess - Dietary Evaluation Nutrition/Malnutrition Findings: Nutrition Notes Start: 04/07/20 08:19 Freq: Status: Active Protocol: Document 04/07/20 10:09 AL (Rec: 04/07/20 10:26 AL [id number]) Co-Sign 04/07/20 10:09 MK Nutrition Notes Need for Assessment generated from: MD Order,fagot heater Initial or Follow up Assessment Current Diagnosis CKD (stage V CKD),Diabetes, Hypertension,Stroke Other Pertinent Diagnosis on HD, bilateral BKA, AMS Current Diet No Diet Labs/Tests K 5.2 BUN 53 Cr 7.8 Pertinent Medications Fentanyl Height 5 ft 5 in Weight 110.1 kg [place] Body Weight (kg) 56.81 BMI 40.4 Weight Status Morbidly Obese Subjective/Other Information MD consult to write TF, skin risk asessment. Tyson score = 11. Will order TF. Percent of energy/protein needs met: 0%/0% Burn Absent Trauma Absent GI Symptoms None Current % PO Negligible Minimum of two criteria No physical signs of malnutrition #1 Nutrition Diagnosis Inadequate oral intake Etiology respiratory failure As Evidenced by Signs and Symptoms patient is on mechanical vent and is unable to eat orally Is patient on ventilator? Yes Is Patient Ambulatory and/or Out of Bed No REE-([facility]-confined to bed) 2063.820 Kcal/Kg value to use for calculation 16 Approximate Energy Requirements Using 1762 kcal/Kg Calculation Used for Recommendations Kcal/kg Additional Notes Protein Needs: up to 142 g (up to 2.5 g/kg IBW) Fluid Needs: 1 mL/kcal Nutrition Intervention Change Diet Order: TF Nutrition Support: Nepro 1.8 at 45 mL/hr (goal rate) Flush 200 mL q4h Kcal 1,944 Protein (gm) 87 Fluid (mL) 785 Goal #1 Initiate TF Goal #2 Meet estimated energy and protein needs as best as possible via TF Anticipated Discharge Needs: Unable to determine at this time Follow-Up By: 04/11/20 Additional Comments F/U for TF tolerance
[2020-04-09] MEDS: HEPARIN 5,000 UNIT/1 ML VIAL SUB-Q SCH ×2 (09:26→22:10)
[2020-04-09] MEDS: FLUCONAZOLE/NS 100 MG/50 ML 100 MG/50 ML BAG IV SCH (09:26)
[2020-04-09] MEDS: FAMOTIDINE 20 MG TAB PO SCH (09:27)
--- NOTE | 2020-04-09 14:38 | Progress Note ---
Assessment and Plan Impression: * End stage renal disease * Sepsis * Positive blood cx - likely contaminant --Blood cx: staph epi (05/29 bottles - Apr 06) * Acute hypoxic respiratory failure * Acute encephalopathy * UTI * Hx of COVID 19 --SARS Cov2 PCR negative Apr 07 * Metabolic acidosis Plan: * Patient is s/p HD on Friday (missed HD on ) and Friday * No emergent need for HD today * Continue TTS schedule * UF as tolerated * Abx per ID * Await ID and senstivities of blood cultures * Vent management per CCM * Dose medications for renal function * AM labs Subjective Date of service: 04/09/20 Principal diagnosis: Ac on ch hypoxemic and hypercapnic resp failure; PUI COVID- 19 infxn; AMS Interval history: No acute events overnight. Patient remains intubated - PS trial - PS 12, FiO2 30, PEEP 6 Objective - Vital Signs Vital signs: Vital Signs - 12hr 04/09/20 04/09/20 04/09/20 04:00 05:23 08:00 Temperature 99.7 F H 98.9 F Pulse Rate 109 H Pulse Rate [ 88 From Monitor] Respiratory 14 12 Rate Blood Pressure O2 Sat by Pulse 98 98 Oximetry 04/09/20 04/09/20 04/09/20 08:15 09:27 11:52 Temperature Pulse Rate 108 H 107 H 101 H Pulse Rate [ From Monitor] Respiratory 15 14 Rate Blood Pressure 177/74 172/59 153/49 O2 Sat by Pulse 99 95 Oximetry 04/09/20 12:00 Temperature 98.1 F Pulse Rate Pulse Rate [ From Monitor] Respiratory Rate Blood Pressure O2 Sat by Pulse Oximetry - General Appearance General appearance: well-developed, well-nourished EENT: ATNC, other (ETT in place) Respiratory: Present: Other (coarse BS) Cardiology: regular, S1S2 Gastrointestinal: obese Integumentary: warm and dry Musculoskeletal: other (Bilateral BKA) - Lab 04/08/20 11:55 04/06/20 14:30 Most recent lab results ABG pH 7.378 (7.320-7.450) 04/09/20 Unknown ABG pCO2 44.5 mm Hg 04/08/20 Unknown ABG pO2 117.3 mm Hg (80.0-90.0) H 04/08/20 Unknown ABG HCO3 24.0 mmol/L (20.0-26.0) 04/08/20 Unknown ABG O2 Saturation 98.1 % (95.0-99.0) 04/08/20 Unknown Calcium 8.9 mg/dL (8.4-10.2) 04/06/20 14:30 Magnesium 2.50 mg/dL (1.7-2.3) H 04/06/20 14:30 Medications & Allergies - Medications Allergies/Adverse Reactions: Allergies carrot Allergy (Verified 07/28/19 12:30) Hives erythromycin base Allergy (Verified 07/30/19 11:26) Hives latex Allergy (Verified 02/18/19 13:20) Rash peas Allergy (Verified 12/20/19 12:37) Hives vancomycin Allergy (Verified 12/31/19 15:46) Hives Home Medications: Home Medications Medication Instructions Recorded Confirmed Last Taken Type Aripiprazole 5 mg PO DAILY 02/18/19 04/06/20 02/17/19 History Benadryl CAP 25 mg PO Q8H PRN 02/18/19 04/06/20 02/17/19 History Calcium Acetate 667 mg PO TIDWM 02/18/19 04/06/20 02/17/19 History Carvedilol 6.25 mg PO Q12H 02/18/19 04/06/20 02/17/19 History Colace CAP 100 mg PO Q12H PRN 02/18/19 04/06/20 02/17/19 History Esomeprazole Magnesium 40 mg PO QDAC 02/18/19 04/06/20 02/17/19 History HumaLOG 10 units SUB-Q TIDWM 02/18/19 04/06/20 02/17/19 History Insulin Detemir (Nf) [Levemir See Protocol SQ QHS 02/18/19 04/06/20 02/17/19 History Flextouch (Nf)] Losartan Potassium 50 mg PO DAILY 02/18/19 04/06/20 02/17/19 History Lyrica 75 mg PO Q12H 02/18/19 04/06/20 02/17/19 History Melatonin 6 mg PO QHS 02/18/19 04/06/20 02/17/19 History Senna 17.2 mg PO QHS PRN 02/18/19 04/06/20 02/17/19 History Venlafaxine HCl [Venlafaxine HCl 150 mg PO QDAC 02/18/19 04/06/20 02/17/19 History ER] Vitamin C 250 mg PO DAILY 02/18/19 04/06/20 02/17/19 History ZyrTEC 10mg cap 10 mg PO DAILY 02/18/19 04/06/20 02/17/19 History Calcium Acetate [Phoslo] 667 mg PO TIDWM capsule 12/22/19 04/06/20 Unknown Rx Fe Fumarate/FA/Mv, Min Comb#15 1 each PO QDAY capsule 12/22/19 04/06/20 Unknown Rx [Hemocyte Plus] Albuterol Mdi (or & Nicu Only) 2.5 puff IH Q4HRT PRN inha 01/12/20 04/06/20 Unknown Rx [ProAir HFA Inhaler] dexAMETHasone [Decadron] 6 mg PO Q12HR #10 tablet 01/12/20 04/06/20 Unknown Rx oxyCODONE 5 mg PO Q6H PRN #10 01/12/20 04/06/20 Unknown Rx Active Medications: Generic Name Dose Route Start Last Admin Trade Name Freq PRN Reason Stop Dose Admin Acetaminophen 650 mg 04/06/20 16:39 Tylenol PO Q6H PRN Pain, Mild (1-3) Lipase/Protease/Amylase 1 each 04/07/20 10:23 Pancreazdonald Reyes 10,500 Unit FEEDTUBE PRN PRN For Clogged Feeding Tube Famotidine 20 mg 04/07/20 10:00 04/09/20 09:27 Pepcid PO 20 mg QDAY NOEL Administration Fentanyl 50 mcg 04/06/20 13:34 Sublimaze IV Q10MIN PRN ANALGESIA Heparin Sodium (Porcine) 5,000 unit 04/06/20 22:00 04/09/20 09:26 Heparin SUB-Q 5,000 unit Q12HR NOEL Administration Hydromorphone HCl 0.25 mg 04/06/20 16:39 Dilaudid IV Q4H PRN Pain, Moderate (4-6) Hydrophilic Ointment 1 applic 04/06/20 13:34 Vaseline Lip Therapy TP Q2HR PRN Dry Lips Fentanyl Citrate 2,000 mcg in 100 mls @ 5.505 mls/hr 04/06/20 14:00 04/09/20 12:21 Fentanyl Drip Premix IV 2 mcg/kg/hr TITR NOEL 11.01 mls/hr Administration Protocol 1 MCG/KG/HR Nicardipine/Sodium Chloride 40 mg in 200 mls @ 25 mls/hr 04/06/20 17:00 04/06/20 23:23 Cardene Drip 40 Mg/200 Ml IV Infused TITR NOEL Titration Protocol 5 MG/HR Cefepime HCl 1 gm in 100 mls @ 200 mls/hr 04/06/20 20:00 04/08/20 20:39 Cefepime/Ns 1 Gm/100 Ml IV 200 mls/hr Q24H NOEL Administration Protocol Sodium Chloride 250 mls @ 10 mls/hr 04/07/20 10:03 04/09/20 05:38 Nacl 0.9% 250ml IV 10 mls/hr DIRECT PRN Administration FOR ABX Sodium Chloride 100 mls @ 999 mls/hr 04/07/20 17:00 Nacl 0.9% IV SPRING PRN Hypotension Daptomycin 600 mg/ Sodium 100 mls @ 200 mls/hr 04/08/20 17:00 04/08/20 18:24 Chloride IV 200 mls/hr Q48H NOEL Administration Protocol Labetalol HCl 10 mg 04/08/20 17:17 04/09/20 09:27 Labetalol IV 10 mg Q4H PRN Administration Blood Pressure Multi-Ingred Cream/Lotion/Oil/Oint 1 applic 04/06/20 13:34 Artificial Tears Ophth Oint OU Q4HR PRN Dry Eye(s) Simple Syrup 15 ml 04/07/20 10:23 Simple Syrup FEEDTUBE PRN PRN Hypoglycemia Simple Syrup 30 ml 04/07/20 10:23 Simple Syrup FEEDTUBE PRN PRN Hypoglycemia Sodium Bicarbonate 325 mg 04/07/20 10:23 Sodium Bicarbonate FEEDTUBE PRN PRN For Clogged Feeding Tube Sodium Chloride 10 ml 04/06/20 22:00 04/09/20 09:27 Sodium Chloride Flush Syringe 10 Ml IV Not Given BID NOEL Sodium Chloride 10 ml 04/06/20 16:32 Sodium Chloride Flush Syringe 10 Ml IV PRN PRN LINE FLUSH
--- NOTE | 2020-04-09 16:15 | Progress Note ---
Assessment and Plan Acute on chronic hypoxemic and hypercapnic respiratory failure. Coronavirus-19 infection. Acute encephalopathy. Bibasilar atelectasis. End-stage renal disease, on dialysis. Morbid obesity. History of a cerebrovascular accident. Diabetes type 2. History of chronic obstructive pulmonary disease. History of anemia. - resume home Losartan & Carvedilol - continue prn IV Labetalol - follow bilateral lower extremity dopplers for VTE evaluation - continue fentanyl for sedation / analgesia - keep set rate at 12/min - continue care as below otherwise; - continue Daily SAT and SBT assessment as tolerated - continue to wean supplemental oxygen for target O2 sat's > 90% acutely - VAP bundle addressed - continue lung protective strategies - continue bronchodilators with pulmonary hygiene per RT - wean per pulmonary driven protocols otherwise - continue accuchecks with glycemic control per SSI (While critically ill target blood glucose of 140-180 mg/dL; avoid hypoglycemia) - sedation prn for target RASS 0 to -1 - avoid nephrotoxins, renally dose all medications - continue to avoid benzodiazepine's, reduce the possibility of delirium - complete AB's per ID rec's - prn analgesia per CPOT score - Maintenance of sleep-wake cycle, avoid delirium - continue enteral nutritional support at goal rate as tolerated - G.I. & VTE prophylaxis - PT/OT/ROM exercises - continue mobility protocols for pressure ulcer prophylaxis - Monitor hemodynamics closely - continue other care per attending / other consultants - discharge planning ongoing concurrently .... Re-evaluate in am & prn CONDITION: CRITICAL PROGNOSIS: GUARDED CODE STATUS: FULL CODE The high probability of a clinically significant, sudden or life-threatening de terioration of the [respiratory, cardiovascular, renal & neurologic] system(s) required my full and direct attention, intervention and personal management. The aggregate critical care time was [32] minutes without overlap. Time includes spent on; [x] Data Review and interpretation [x] Patient assessment and monitoring of vital signs [x] Documentation [x] Medication orders and management Subjective Date of service: 04/09/20 Principal diagnosis: Ac on ch hypoxemic and hypercapnic resp failure; PUI COVID- 19 infxn; AMS Interval history: Patient is seen today for: Acute on chronic hypoxemic and hypercapnic resp failure; PUI Coronavirus-19 infection; Acute encephalopathy; ESRD; Morbid obesity; DM II; AE-COPD Seen and examined at bedside; 24hour events reviewed; nursing and respiratory care staff consulted; no adverse overnight events reported to me; resting peacefully in bed; remains on MVS; tolerated a few hours on PSV but BP's rising and rested; AMS is persistent; No emesis or overt aspiration Objective Vital Signs - 12hr 04/09/20 04/09/20 04/09/20 05:23 08:00 08:15 Temperature 98.9 F Pulse Rate 109 H 108 H Respiratory 12 15 Rate Blood Pressure 177/74 O2 Sat by Pulse 98 99 Oximetry 04/09/20 04/09/20 04/09/20 09:27 11:52 12:00 Temperature 98.1 F Pulse Rate 107 H 101 H Respiratory 14 Rate Blood Pressure 172/59 153/49 O2 Sat by Pulse 95 Oximetry 04/09/20 04/09/20 16:01 16:03 Temperature Pulse Rate 98 H 95 H Respiratory Rate Blood Pressure 184/68 184/68 O2 Sat by Pulse 99 Oximetry Constitutional: appears uncomfortable, other (middle aged obese female with mild ventilator dys-synchrony) Eyes: non-icteric ENT: oropharynx moist, other (ETT 23 cm PARRISH) Neck: supple, no lymphadenopathy, no JVD Effort: mildly labored Ascultation: Bilateral: diminished breath sounds, rhonchi Percussion: Bilateral: not dull Cardiovascular: regular rate and rhythm Gastrointestinal: normoactive bowel sounds, soft, non-tender, non-distended (protuberant) Integumentary: erythema (right BKA stump) Extremities: no cyanosis, no edema, no ischemia or petechiae Neurologic: non-focal exam (grossly), pupils equal and round, unable to assess Psychiatric: other (unable to assess re: AMS) CBC and BMP: 04/08/20 11:55 04/06/20 14:30 ABG, PT/INR, D-dimer: ABG ABG pH 7.378 (7.320-7.450) 04/09/20 Unknown POC ABG pCO2 51.6 mmHg (32.0-48.0) H 04/09/20 Unknown ABG pCO2 44.5 mm Hg 04/08/20 Unknown POC ABG pO2 87.8 mmHg (83-108) 04/09/20 Unknown ABG pO2 117.3 mm Hg (80.0-90.0) H 04/08/20 Unknown POC ABG HCO3 29.7 04/09/20 Unknown ABG O2 Saturation 98.1 % (95.0-99.0) 04/08/20 Unknown PT/INR, D-dimer PT 13.8 Sec. (12.2-14.9) 04/06/20 14:30 INR 1.04 (0.87-1.13) 04/06/20 14:30 D-Dimer 1063.66 ng/mlDDU (0-234) H 04/07/20 09:34 Abnormal lab findings: Abnormal Labs 04/06/20 04/06/20 04/06/20 13:34 14:30 14:30 WBC 19.2 H RDW 17.8 H Seg Neuts % (Manual) 90.0 H Lymphocytes % (Manual) 4.0 L Seg Neutrophils # Man 17.3 H Lymphocytes # (Manual) 0.8 L D-Dimer ABG pH POC ABG pCO2 POC ABG pO2 ABG pO2 ABG HCO3 ABG Base Excess ABG Hemoglobin ABG Sodium ABG Chloride ABG Glucose Potassium 5.2 H Carbon Dioxide 17 L BUN 53 H Creatinine 7.8 H Glucose 144 H POC Glucose Magnesium Ferritin Alkaline Phosphatase 738 H Lactate Dehydrogenase Total Creatine Kinase 23 L Troponin T 0.224 H* C-Reactive Protein Albumin 3.1 L Triglycerides 342 H Cholesterol 223 H HDL Cholesterol 35 L Arterial Blood Glucose Arterial Blood Ionized Calcium Urine WBC (Auto) > 182.0 H Salicylates Acetaminophen Hepatitis C Antibody 04/06/20 04/06/20 04/06/20 14:30 14:30 14:30 WBC RDW Seg Neuts % (Manual) Lymphocytes % (Manual) Seg Neutrophils # Man Lymphocytes # (Manual) D-Dimer ABG pH POC ABG pCO2 POC ABG pO2 ABG pO2 ABG HCO3 ABG Base Excess ABG Hemoglobin ABG Sodium ABG Chloride ABG Glucose Potassium Carbon Dioxide BUN Creatinine Glucose POC Glucose Magnesium 2.50 H Ferritin Alkaline Phosphatase Lactate Dehydrogenase Total Creatine Kinase 24 L Troponin T C-Reactive Protein Albumin Triglycerides Cholesterol HDL Cholesterol Arterial Blood Glucose Arterial Blood Ionized Calcium Urine WBC (Auto) Salicylates < 0.3 L Acetaminophen 5.0 L Hepatitis C Antibody 04/06/20 04/06/20 04/07/20 14:39 20:00 00:48 WBC RDW Seg Neuts % (Manual) Lymphocytes % (Manual) Seg Neutrophils # Man Lymphocytes # (Manual) D-Dimer ABG pH 7.281 L 7.306 L POC ABG pCO2 POC ABG pO2 78.0 L ABG pO2 133.8 H ABG HCO3 18.3 L ABG Base Excess -7.8 L ABG Hemoglobin 10.8 L 10.8 L ABG Sodium ABG Chloride 108.0 H ABG Glucose Potassium Carbon Dioxide BUN Creatinine Glucose POC Glucose 69 L Magnesium Ferritin Alkaline Phosphatase Lactate Dehydrogenase Total Creatine Kinase Troponin T C-Reactive Protein Albumin Triglycerides Cholesterol HDL Cholesterol Arterial Blood Glucose Arterial Blood Ionized Calcium Urine WBC (Auto) Salicylates Acetaminophen Hepatitis C Antibody 04/07/20 04/07/20 04/07/20 09:34 09:34 09:34 WBC RDW Seg Neuts % (Manual) Lymphocytes % (Manual) Seg Neutrophils # Man Lymphocytes # (Manual) D-Dimer 1063.66 H ABG pH POC ABG pCO2 POC ABG pO2 ABG pO2 ABG HCO3 ABG Base Excess ABG Hemoglobin ABG Sodium ABG Chloride ABG Glucose Potassium Carbon Dioxide BUN Creatinine Glucose POC Glucose Magnesium Ferritin 743.0 H Alkaline Phosphatase Lactate Dehydrogenase 195 H Total Creatine Kinase Troponin T C-Reactive Protein 7.50 H Albumin Triglycerides Cholesterol HDL Cholesterol Arterial Blood Glucose Arterial Blood Ionized Calcium Urine WBC (Auto) Salicylates Acetaminophen Hepatitis C Antibody 04/07/20 04/07/20 04/07/20 10:01 16:38 23:51 WBC RDW Seg Neuts % (Manual) Lymphocytes % (Manual) Seg Neutrophils # Man Lymphocytes # (Manual) D-Dimer ABG pH POC ABG pCO2 POC ABG pO2 79.8 L ABG pO2 ABG HCO3 ABG Base Excess ABG Hemoglobin 10.3 L ABG Sodium ABG Chloride 109.0 H ABG Glucose Potassium Carbon Dioxide BUN Creatinine Glucose POC Glucose 117 H Magnesium Ferritin Alkaline Phosphatase Lactate Dehydrogenase Total Creatine Kinase Troponin T C-Reactive Protein Albumin Triglycerides Cholesterol HDL Cholesterol Arterial Blood Glucose Arterial Blood Ionized Calcium 4.5 L Urine WBC (Auto) Salicylates Acetaminophen Hepatitis C Antibody Reactive A 04/08/20 04/08/20 04/08/20 04:58 12:48 17:03 WBC RDW Seg Neuts % (Manual) Lymphocytes % (Manual) Seg Neutrophils # Man Lymphocytes # (Manual) D-Dimer ABG pH POC ABG pCO2 POC ABG pO2 ABG pO2 ABG HCO3 ABG Base Excess ABG Hemoglobin ABG Sodium ABG Chloride ABG Glucose Potassium Carbon Dioxide BUN Creatinine Glucose POC Glucose 129 H 155 H 201 H Magnesium Ferritin Alkaline Phosphatase Lactate Dehydrogenase Total Creatine Kinase Troponin T C-Reactive Protein Albumin Triglycerides Cholesterol HDL Cholesterol Arterial Blood Glucose Arterial Blood Ionized Calcium Urine WBC (Auto) Salicylates Acetaminophen Hepatitis C Antibody 04/08/20 04/08/20 04/09/20 23:49 Unknown 05:31 WBC RDW Seg Neuts % (Manual) Lymphocytes % (Manual) Seg Neutrophils # Man Lymphocytes # (Manual) D-Dimer ABG pH 7.349 L POC ABG pCO2 POC ABG pO2 ABG pO2 117.3 H ABG HCO3 ABG Base Excess ABG Hemoglobin 7.4 L ABG Sodium ABG Chloride ABG Glucose Potassium Carbon Dioxide BUN Creatinine Glucose POC Glucose 178 H 248 H Magnesium Ferritin Alkaline Phosphatase Lactate Dehydrogenase Total Creatine Kinase Troponin T C-Reactive Protein Albumin Triglycerides Cholesterol HDL Cholesterol Arterial Blood Glucose Arterial Blood Ionized Calcium Urine WBC (Auto) Salicylates Acetaminophen Hepatitis C Antibody 04/09/20 04/09/20 11:39 Unknown WBC RDW Seg Neuts % (Manual) Lymphocytes % (Manual) Seg Neutrophils # Man Lymphocytes # (Manual) D-Dimer ABG pH POC ABG pCO2 51.6 H POC ABG pO2 ABG pO2 ABG HCO3 ABG Base Excess ABG Hemoglobin 11.4 L ABG Sodium 130.1 L ABG Chloride ABG Glucose 249 H Potassium Carbon Dioxide BUN Creatinine Glucose POC Glucose 319 H Magnesium Ferritin Alkaline Phosphatase Lactate Dehydrogenase Total Creatine Kinase Troponin T C-Reactive Protein Albumin Triglycerides Cholesterol HDL Cholesterol Arterial Blood Glucose 249 H Arterial Blood Ionized Calcium 4.1 L Urine WBC (Auto) Salicylates Acetaminophen Hepatitis C Antibody Chest x-ray: pending Allied health notes reviewed: nursing
[2020-04-09] MEDS ORDERED: DEXTROSE 50% IN WATER (25GM) 50 ML SYRINGE IV PRN (16:30)
[2020-04-09] MEDS: INSULIN GLARGINE 100 UNITS/ML SUB-Q SCH (17:34)
[2020-04-09] MEDS: LOSARTAN 50 MG TAB PO SCH (17:34)
[2020-04-09] MEDS: INSULIN REGULAR, HUMAN 100 UNIT/ML 3ML VIAL SUB-Q SCH (17:37)
[2020-04-09] MEDS: CEFEPIME/NS 1 GM/100 ML 1 GM/100 ML BAG IV SCH (19:52)
[2020-04-10] MEDS: INSULIN REGULAR, HUMAN 100 UNIT/ML 3ML VIAL SUB-Q SCH ×5 (00:18→23:42)
--- NOTE | 2020-04-10 04:01 | XRay Report ---
CHEST 1 VIEW 04/10/2020 3:30 AM INDICATION / CLINICAL INFORMATION: follow up respiratory failure. COMPARISON: 04/09/2020 FINDINGS: SUPPORT DEVICES: Stable, satisfactory device positioning. HEART / MEDIASTINUM: Stable. LUNGS / PLEURA: Stable bibasilar opacities. No pneumothorax. ADDITIONAL FINDINGS: No significant additional findings. IMPRESSION: 1. No significant change. Signer Name: Jaswinder Us MD Signed: 04/10/2020 3:56 AM Workstation Name: [employer]
[2020-04-10] MEDS: fentaNYL DRIP Premix 2,000 MCG/100 ML BAG IV SCH ×2 (05:40→16:28)
[2020-04-10] MEDS: carvediloL 6.25 MG TAB PO SCH ×3 (05:52→21:16)
[2020-04-10 08:56] LABS: Hematocrit 30.1 % (30.3-42.9); Hemoglobin 9.5 gm/dl (10.1-14.3); Mean Corpuscular HGB Conc 32 % (30-34); Mean Corpuscular Volume 89 fl (79-97); Platelet Count 377 K/mm3 (140-440); Red Blood Count 3.38 M/mm3 (3.65-5.03); Red Cell Distribution Width 16.9 % (13.2-15.2)
[2020-04-10 09:16] LABS: Calcium 8.7 mg/dL (8.4-10.2)
[2020-04-10] MEDS: HEPARIN 5,000 UNIT/1 ML VIAL SUB-Q SCH ×2 (10:13→21:16)
[2020-04-10] MEDS: FAMOTIDINE 20 MG TAB PO SCH (10:13)
[2020-04-10] MEDS: LOSARTAN 50 MG TAB PO SCH (10:14)
[2020-04-10 10:27] LABS: Eosinophils % (Manual) 0 % (0.0-4.3); Myelocytes # (Manual) 0.3 K/mm3; Total Cells Counted 100
[2020-04-10 10:32] LABS: Poikilocytosis 1+; Tear Drop Cells Few
[2020-04-10 10:33] LABS: Spherocytes 1+
[2020-04-10 10:34] LABS: Platelet Estimate Consistent w Auto
--- NOTE | 2020-04-10 10:55 | Progress Note ---
Assessment and Plan Impression: * End stage renal disease * Sepsis * Positive blood cx - likely contaminant --Blood cx: staph epi (05/29 bottles - Apr 06) * Acute hypoxic respiratory failure * Acute encephalopathy * UTI * Hx of COVID 19 --SARS Cov2 PCR negative Apr 07 * Metabolic acidosis Plan: * Patient is s/p HD on Friday (missed HD on ) and Friday * No emergent need for HD today * Continue TTS schedule * UF as tolerated * Abx per ID * Await ID and senstivities of blood cultures * Vent management per CCM * Dose medications for renal function * AM labs Subjective Date of service: 04/10/20 Principal diagnosis: Ac on ch hypoxemic and hypercapnic resp failure; PUI COVID- 19 infxn; AMS Interval history: resting in bed, events noted Objective - Exam Narrative Exam: General appearance: well-developed, well-nourished EENT: ATNC, other (ETT in place) Respiratory: Present: Other (coarse BS) Cardiology: regular, S1S2 Gastrointestinal: obese Integumentary: warm and dry Musculoskeletal: other (Bilateral BKA) - Vital Signs Vital signs: Vital Signs - 12hr 04/09/20 04/09/20 04/10/20 23:30 23:59 00:00 Temperature 99.3 F Pulse Rate 86 Pulse Rate [ 94 H From Monitor] Respiratory 21 Rate Blood Pressure 133/56 O2 Sat by Pulse 97 Oximetry 04/10/20 04/10/20 04/10/20 03:24 03:49 03:50 Temperature 99.1 F Pulse Rate 102 H Pulse Rate [ 91 H From Monitor] Respiratory 15 Rate Blood Pressure 165/75 O2 Sat by Pulse 100 Oximetry 04/10/20 04/10/20 04/10/20 08:00 08:33 10:14 Temperature Pulse Rate 104 H 98 H Pulse Rate [ 110 H From Monitor] Respiratory 18 Rate Blood Pressure 132/59 153/57 O2 Sat by Pulse 98 100 Oximetry - Lab 04/10/20 08:18 04/10/20 08:18 Most recent lab results ABG pH 7.343 (7.320-7.450) 04/10/20 03:15 ABG pCO2 44.5 mm Hg 04/08/20 Unknown ABG pO2 117.3 mm Hg (80.0-90.0) H 04/08/20 Unknown ABG HCO3 24.0 mmol/L (20.0-26.0) 04/08/20 Unknown ABG O2 Saturation 98.1 % (95.0-99.0) 04/08/20 Unknown Calcium 8.7 mg/dL (8.4-10.2) 04/10/20 08:18 Magnesium 2.50 mg/dL (1.7-2.3) H 04/06/20 14:30 Medications & Allergies - Medications Allergies/Adverse Reactions: Allergies carrot Allergy (Verified 07/28/19 12:30) Hives erythromycin base Allergy (Verified 07/30/19 11:26) Hives latex Allergy (Verified 02/18/19 13:20) Rash peas Allergy (Verified 12/20/19 12:37) Hives vancomycin Allergy (Verified 12/31/19 15:46) Hives Home Medications: Home Medications Medication Instructions Recorded Confirmed Last Taken Type Aripiprazole 5 mg PO DAILY 02/18/19 04/06/20 02/17/19 History Benadryl CAP 25 mg PO Q8H PRN 02/18/19 04/06/20 02/17/19 History Calcium Acetate 667 mg PO TIDWM 02/18/19 04/06/20 02/17/19 History Carvedilol 6.25 mg PO Q12H 02/18/19 04/06/20 02/17/19 History Colace CAP 100 mg PO Q12H PRN 02/18/19 04/06/20 02/17/19 History Esomeprazole Magnesium 40 mg PO QDAC 02/18/19 04/06/20 02/17/19 History HumaLOG 10 units SUB-Q TIDWM 02/18/19 04/06/20 02/17/19 History Insulin Detemir (Nf) [Levemir See Protocol SQ QHS 02/18/19 04/06/20 02/17/19 History Flextouch (Nf)] Losartan Potassium 50 mg PO DAILY 02/18/19 04/06/20 02/17/19 History Lyrica 75 mg PO Q12H 02/18/19 04/06/20 02/17/19 History Melatonin 6 mg PO QHS 02/18/19 04/06/20 02/17/19 History Senna 17.2 mg PO QHS PRN 02/18/19 04/06/20 02/17/19 History Venlafaxine HCl [Venlafaxine HCl 150 mg PO QDAC 02/18/19 04/06/20 02/17/19 History ER] Vitamin C 250 mg PO DAILY 02/18/19 04/06/20 02/17/19 History ZyrTEC 10mg cap 10 mg PO DAILY 02/18/19 04/06/20 02/17/19 History Calcium Acetate [Phoslo] 667 mg PO TIDWM capsule 12/22/19 04/06/20 Unknown Rx Fe Fumarate/FA/Mv, Min Comb#15 1 each PO QDAY capsule 12/22/19 04/06/20 Unknown Rx [Hemocyte Plus] Albuterol Mdi (or & Nicu Only) 2.5 puff IH Q4HRT PRN inha 01/12/20 04/06/20 Unknown Rx [ProAir HFA Inhaler] dexAMETHasone [Decadron] 6 mg PO Q12HR #10 tablet 01/12/20 04/06/20 Unknown Rx oxyCODONE 5 mg PO Q6H PRN #10 01/12/20 04/06/20 Unknown Rx Active Medications: Generic Name Dose Route Start Last Admin Trade Name Freq PRN Reason Stop Dose Admin Acetaminophen 650 mg 04/06/20 16:39 Tylenol PO Q6H PRN Pain, Mild (1-3) Lipase/Protease/Amylase 1 each 04/07/20 10:[address] 10,500 Unit FEEDTUBE PRN PRN For Clogged Feeding Tube Carvedilol 6.25 mg 04/09/20 22:00 04/10/20 10:14 Coreg PO 6.25 mg BID NOEL Administration Dextrose 50 ml 04/09/20 16:30 D50w (25gm) Syringe IV Q30MIN PRN Hypoglycemia Protocol Famotidine 20 mg 04/07/20 10:00 04/10/20 10:13 Pepcid PO 20 mg QDAY NOEL Administration Fentanyl 50 mcg 04/06/20 13:34 Sublimaze IV Q10MIN PRN ANALGESIA Heparin Sodium (Porcine) 5,000 unit 04/06/20 22:00 04/10/20 10:13 Heparin SUB-Q 5,000 unit Q12HR NOEL Administration Hydromorphone HCl 0.25 mg 04/06/20 16:39 Dilaudid IV Q4H PRN Pain, Moderate (4-6) Hydrophilic Ointment 1 applic 04/06/20 13:34 Vaseline Lip Therapy TP Q2HR PRN Dry Lips Fentanyl Citrate 2,000 mcg in 100 mls @ 5.505 mls/hr 04/06/20 14:00 04/10/20 10:15 Fentanyl Drip Premix IV 0 mcg/kg/hr TITR NOEL 0 mls/hr Titration Protocol 1 MCG/KG/HR Nicardipine/Sodium Chloride 40 mg in 200 mls @ 25 mls/hr 04/06/20 17:00 04/06/20 23:23 Cardene Drip 40 Mg/200 Ml IV Infused TITR NOEL Titration Protocol 5 MG/HR Cefepime HCl 1 gm in 100 mls @ 200 mls/hr 04/06/20 20:00 04/09/20 19:52 Cefepime/Ns 1 Gm/100 Ml IV 200 mls/hr Q24H NOEL Administration Protocol Sodium Chloride 250 mls @ 10 mls/hr 04/07/20 10:03 04/09/20 05:38 Nacl 0.9% 250ml IV 10 mls/hr DIRECT PRN Administration FOR ABX Sodium Chloride 100 mls @ 999 mls/hr 04/07/20 17:00 Nacl 0.9% IV SPRING PRN Hypotension Daptomycin 600 mg/ Sodium 100 mls @ 200 mls/hr 04/08/20 17:00 04/08/20 18:24 Chloride IV 200 mls/hr Q48H NOEL Administration Protocol Insulin Glargine 10 units 04/09/20 17:00 04/09/20 17:34 Lantus SUB-Q 10 units Q24H NOEL Administration Insulin Human Regular 0 unit 04/09/20 18:00 04/10/20 05:46 Humulin R SUB-Q 2 unit Q6H NOEL Administration Protocol Labetalol HCl 10 mg 04/08/20 17:17 04/09/20 16:03 Labetalol IV 10 mg Q4H PRN Administration Blood Pressure Losartan Potassium 50 mg 04/09/20 18:00 04/10/20 10:14 Cozaar PO 50 mg QDAY NOEL Administration Multi-Ingred Cream/Lotion/Oil/Oint 1 applic 04/06/20 13:34 Artificial Tears Ophth Oint OU Q4HR PRN Dry Eye(s) Simple Syrup 15 ml 04/07/20 10:23 Simple Syrup FEEDTUBE PRN PRN Hypoglycemia Simple Syrup 30 ml 04/07/20 10:23 Simple Syrup FEEDTUBE PRN PRN Hypoglycemia Sodium Bicarbonate 325 mg 04/07/20 10:23 Sodium Bicarbonate FEEDTUBE PRN PRN For Clogged Feeding Tube Sodium Chloride 10 ml 04/06/20 22:00 04/10/20 10:15 Sodium Chloride Flush Syringe 10 Ml IV 10 ml BID NOEL Administration Sodium Chloride 10 ml 04/06/20 16:32 Sodium Chloride Flush Syringe 10 Ml IV PRN PRN LINE FLUSH
--- NOTE | 2020-04-10 12:05 | Progress Note ---
Assessment and Plan Assessment and plan: Severe sepsis. Present on admission with hypothermia, leukocytosis, altered mental status, likely due to bilateral pneumonia. F/U Blood Cx. Cont. Abx pre ID Bilateral pneumonia. Aspiration pneumonia/HAP Severe UTI. Bains catheter with purulent urine. Acute hypoxemic respiratory failure. Intubated for airway protection, O2 sats down to 87%. Toxic metabolic encephalopathy. Etiology secondary to sepsis End-stage renal disease on hemodialysis Extensive Candidal intertrigo in groin and vagina. Cont. Fluconazole History COVID-19 infection (01/07/2020) 04/08/2020. Patient remains intubated on mechanical ventilation with AC mode ventilation rate 12, tidal volume 450, FiO2 40% and a PEEP of 6. Continue weaning per protocols. Patient with ESRD and continue TTS schedule per nephrology. Patient does have a history of COVID-19 infection(01/07/20) but negative testing April 07. Follow-up blood/urine/sputum culture. Continue antibiotics per ID recommendations. 04/09/2020. Patient not tolerating PSV 12/6 with FiO2 of 30%. Continue hemodialysis per nephrology recommendations. Continue IV antibiotics per ID recommendations. Blood cultures no growth to date. Respiratory therapy reports patient with accelerated hypertension and apneic episodes on PSV ventilation. Await pulmonary recommendations. 04/10/2020. Patient remains on mechanical ventilation AC mode rate 12, tidal volume 450, FiO2 30% and a PEEP of 6. Continue PSV trials per protocols. Continue hemodialysis per nephrology recommendations. Continue anti-infectives of fluconazole and cefepime. Follow-up blood/urine/sputum culture. ID, pulmonary and nephrology following. The high probability of a clinically significant, sudden or life threatening deterioration of the [respiratory] system(s) required my full and direct attention, intervention and personal management. The aggregate critical care time was [33] minutes. This time is in addition to time spent performing reported procedures but includes the following: [x] Data Review and interpretation [x] Patient assessment and monitoring of vital signs [x] Documentation [x] Medication orders and management History Interval history: 49 years old female with history of asthma, hypertension, end-stage renal disease on hemodialysis, diabetes mellitus, bipolar disorder, morbid obesity, CVA, [facility] a [facility], admitted on 04/06/2020 secondary to be found Unresponsiveness after hemodialysis. Patient is unable to provide history, currently intubated. Patient received hemodialysis and after completion she became unresponsive. Upon EMS arrival, blood pressure was 90/60, HR 88, temperature 97.2. Per records, patient was not complaining of any symptoms. On arrival, temperature 94.1, HR 66, RR 18, O2 sat 87%, BP 131/111. Initial WBC 19.2. Urinalysis showed more than 182 WBCs and moderate leukocyte esterase. Chest x-ray shows bibasilar infiltrates. Patient was intubated in the emergency room to protect airway. Bains catheter was placed yielding purulent urine. No new issues overnight. Patient remains intubated on mechanical ventilation Hospitalist Physical - Constitutional Vitals: Temp Pulse Resp BP Pulse Ox 99.1 F 95 H 15 167/74 100 04/10/20 03:50 04/10/20 11:54 04/10/20 11:08 04/10/20 11:54 04/10/20 11:54 General appearance: Present: severe distress, other (Intubated on mechanical ventilation) - EENT Eyes: Present: PERRL, EOM intact ENT: hearing intact, clear oral mucosa, dentition normal - Neck Neck: Present: supple, normal ROM - Respiratory Respiratory effort: normal Respiratory: bilateral: CTA - Cardiovascular Rhythm: regular Heart Sounds: Present: S1 & S2. Absent: gallop, rub - Extremities Extremities: no ischemia, No edema, Full ROM - Abdominal General gastrointestinal: soft, non-tender, non-distended, normal bowel sounds - Integumentary Integumentary: Present: clear, warm, dry - Neurologic Neurologic: CNII-XII intact, moves all extremities HEART Score - HEART Score Troponin: Troponin T 0.224 ng/mL (0.00-0.029) H* 04/06/20 14:30 Results - Labs CBC & Chem 7: 04/10/20 08:18 04/10/20 08:18 Labs: Laboratory Last Values WBC 28.9 K/mm3 (4.5-11.0) H 04/10/20 08:18 RBC 3.38 M/mm3 (3.65-5.03) L 04/10/20 08:18 Hgb 9.5 gm/dl (10.1-14.3) L 04/10/20 08:18 Hct 30.1 % (30.3-42.9) L 04/10/20 08:18 MCV 89 fl (79-97) 04/10/20 08:18 MCH 28 pg (28-32) 04/10/20 08:18 MCHC 32 % (30-34) 04/10/20 08:18 RDW 16.9 % (13.2-15.2) H 04/10/20 08:18 Plt Count 377 K/mm3 (140-440) 04/10/20 08:18 Add Manual Diff Complete 04/10/20 08:18 Total Counted 100 04/10/20 08:18 Seg Neuts % (Manual) 87.0 % (40.0-70.0) H 04/10/20 08:18 Band Neutrophils % 0 % 04/10/20 08:18 Lymphocytes % (Manual) 9.0 % (13.4-35.0) L 04/10/20 08:18 Reactive Lymphs % (Man) 0 % 04/10/20 08:18 Monocytes % (Manual) 1.0 % (0.0-7.3) 04/10/20 08:18 Eosinophils % (Manual) 0 % (0.0-4.3) 04/10/20 08:18 Basophils % (Manual) 2.0 % (0.0-1.8) H 04/10/20 08:18 Metamyelocytes % 0 % 04/10/20 08:18 Myelocytes % 1.0 % 04/10/20 08:18 Promyelocytes % 0 % 04/10/20 08:18 Blast Cells % 0 % 04/10/20 08:18 Nucleated RBC % Not Reportable 04/10/20 08:18 Seg Neutrophils # Man 25.1 K/mm3 (1.8-7.7) H 04/10/20 08:18 Band Neutrophils # 0.0 K/mm3 04/10/20 08:18 Lymphocytes # (Manual) 2.6 K/mm3 (1.2-5.4) 04/10/20 08:18 Abs React Lymphs (Man) 0.0 K/mm3 04/10/20 08:18 Monocytes # (Manual) 0.3 K/mm3 (0.0-0.8) 04/10/20 08:18 Eosinophils # (Manual) 0.0 K/mm3 (0.0-0.4) 04/10/20 08:18 Basophils # (Manual) 0.6 K/mm3 (0.0-0.1) H 04/10/20 08:18 Metamyelocytes # 0.0 K/mm3 04/10/20 08:18 Myelocytes # 0.3 K/mm3 04/10/20 08:18 Promyelocytes # 0.0 K/mm3 04/10/20 08:18 Blast Cells # 0.0 K/mm3 04/10/20 08:18 WBC Morphology Not Reportable 04/10/20 08:18 Hypersegmented Neuts Not Reportable 04/10/20 08:18 Hyposegmented Neuts Not Reportable 04/10/20 08:18 Hypogranular Neuts Not Reportable 04/10/20 08:18 Smudge Cells Not Reportable 04/10/20 08:18 Toxic Granulation Not Reportable 04/10/20 08:18 Toxic Vacuolation Not Reportable 04/10/20 08:18 Dohle Bodies Not Reportable 04/10/20 08:18 Pelger-Huet Anomaly Not Reportable 04/10/20 08:18 Stephanie Rods Not Reportable 04/10/20 08:18 Platelet Estimate Consistent w auto 04/10/20 08:18 Clumped Platelets Not Reportable 04/10/20 08:18 Plt Clumps, EDTA Not Reportable 04/10/20 08:18 Large Platelets Not Reportable 04/10/20 08:18 Giant Platelets Not Reportable 04/10/20 08:18 Platelet Satelliting Not Reportable 04/10/20 08:18 Plt Morphology Comment Not Reportable 04/10/20 08:18 RBC Morphology Not Reportable 04/10/20 08:18 Dimorphic RBCs Not Reportable 04/10/20 08:18 Polychromasia Few 04/10/20 08:18 Hypochromasia Not Reportable 04/10/20 08:18 Poikilocytosis 1+ 04/10/20 08:18 Anisocytosis Not Reportable 04/10/20 08:18 Microcytosis Not Reportable 04/10/20 08:18 Macrocytosis Not Reportable 04/10/20 08:18 Spherocytes 1+ 04/10/20 08:18 Pappenheimer Bodies Not Reportable 04/10/20 08:18 Sickle Cells Not Reportable 04/10/20 08:18 Target Cells Not Reportable 04/10/20 08:18 Tear Drop Cells Few 04/10/20 08:18 Ovalocytes Not Reportable 04/10/20 08:18 Helmet Cells Not Reportable 04/10/20 08:18 Barroso-Bridger Bodies Not Reportable 04/10/20 08:18 [place] Rings Not Reportable 04/10/20 08:18 Michael Cells Not Reportable 04/10/20 08:18 Bite Cells Not Reportable 04/10/20 08:18 Crenated Cell Not Reportable 04/10/20 08:18 Elliptocytes Not Reportable 04/10/20 08:18 Acanthocytes (Spur) Not Reportable 04/10/20 08:18 Rouleaux Not Reportable 04/10/20 08:18 Hemoglobin C Crystals Not Reportable 04/10/20 08:18 Schistocytes Not Reportable 04/10/20 08:18 Malaria parasites Not Reportable 04/10/20 08:18 Lc Bodies Not Reportable 04/10/20 08:18 Hem Pathologist Commnt No 04/10/20 08:18 PT 13.8 Sec. (12.2-14.9) 04/06/20 14:30 INR 1.04 (0.87-1.13) 04/06/20 14:30 APTT 28.1 Sec. (24.2-36.6) 04/06/20 14:30 D-Dimer 1063.66 ng/mlDDU (0-234) H 04/07/20 09:34 ABG pH 7.343 (7.320-7.450) 04/10/20 03:15 POC ABG pCO2 48.2 mmHg (32.0-48.0) H 04/10/20 03:15 ABG pCO2 44.5 mm Hg 04/08/20 Unknown POC ABG pO2 88.5 mmHg (83-108) 04/10/20 03:15 ABG pO2 117.3 mm Hg (80.0-90.0) H 04/08/20 Unknown POC ABG HCO3 25.6 04/10/20 03:15 ABG HCO3 24.0 mmol/L (20.0-26.0) 04/08/20 Unknown ABG O2 Saturation 98.1 % (95.0-99.0) 04/08/20 Unknown ABG O2 Content 10.2 (0.0-44) 04/08/20 Unknown POC ABG Base Excess -0.4 04/10/20 03:15 ABG Base Excess -1.6 mmol/L (-2.0-3.0) 04/08/20 Unknown ABG Hemoglobin 9.9 (12.0-17.5) L 04/10/20 03:15 ABG Carboxyhemoglobin 1.6 % (0.0-5.0) 04/08/20 Unknown ABG Methemoglobin 0.4 % (0.0-1.5) 04/08/20 Unknown ABG Sodium 135.4 mmol/L (136.0-145.0) L 04/10/20 03:15 ABG Potassium 3.6 mmol/L (3.40-4.50) 04/10/20 03:15 ABG Chloride 101.0 mmol/L (98-107) 04/10/20 03:15 ABG Glucose 215 mg/dL (65-95) H 04/10/20 03:15 Oxyhemoglobin 96.1 % (95.0-99.0) 04/08/20 Unknown FiO2 30 04/10/20 03:15 Sodium 134 mmol/L (137-145) L 04/10/20 08:18 Potassium 3.5 mmol/L (3.6-5.0) L D 04/10/20 08:18 Chloride 94.9 mmol/L (98-107) L 04/10/20 08:18 Carbon Dioxide 26 mmol/L (22-30) D 04/10/20 08:18 Anion Gap 17 mmol/L 04/10/20 08:18 BUN 38 mg/dL (7-17) H 04/10/20 08:18 Creatinine 5.5 mg/dL (0.6-1.2) H 04/10/20 08:18 Estimated GFR 8 ml/min 04/10/20 08:18 BUN/Creatinine Ratio 7 % 04/10/20 08:18 Glucose 230 mg/dL (65-100) H 04/10/20 08:18 POC Glucose 221 mg/dL (70-105) H 04/10/20 05:49 Lactic Acid 1.00 mmol/L (0.7-2.0) 04/06/20 23:09 Calcium 8.7 mg/dL (8.4-10.2) 04/10/20 08:18 Magnesium 2.50 mg/dL (1.7-2.3) H 04/06/20 14:30 Ferritin 743.0 ng/mL (10.0-200.0) H 04/07/20 09:34 Total Bilirubin 0.30 mg/dL (0.1-1.2) 04/06/20 14:30 AST 39 units/L (5-40) 04/06/20 14:30 ALT 21 units/L (7-56) 04/06/20 14:30 Alkaline Phosphatase 738 units/L (35-129) H 04/06/20 14:30 Ammonia 43.0 umol/L (25-60) 04/06/20 14:30 Lactate Dehydrogenase 195 units/L (91-180) H 04/07/20 09:34 Total Creatine Kinase 23 units/L (30-135) L 04/06/20 14:30 Total Creatine Kinase 24 units/L (30-135) L 04/06/20 14:30 Troponin T 0.224 ng/mL (0.00-0.029) H* 04/06/20 14:30 C-Reactive Protein 7.50 mg/dL (0.00-1.30) H 04/07/20 09:34 Total Protein 8.1 g/dL (6.3-8.2) 04/06/20 14:30 Albumin 3.1 g/dL (3.9-5) L 04/06/20 14:30 Albumin/Globulin Ratio 0.6 % 04/06/20 14:30 Triglycerides 342 mg/dL (2-149) H 04/06/20 14:30 Cholesterol 223 mg/dL (50-199) H 04/06/20 14:30 LDL Cholesterol Direct 123 mg/dL (50-130) 04/06/20 14:30 HDL Cholesterol 35 mg/dL (40-59) L 04/06/20 14:30 Cholesterol/HDL Ratio 6.37 % 04/06/20 14:30 TSH 1.320 mlU/mL (0.270-4.200) 04/06/20 14:30 HCG, Qual Negative (Negative) 04/06/20 14:30 Arterial Blood Glucose 215 mg/dL (65-95) H 04/10/20 03:15 Arterial Blood Ionized Calcium 4.5 mg/dL (4.6-5.3) L 04/10/20 03:15 Urine Color Yellow (Yellow) 04/06/20 13:34 Urine Turbidity Turbid (Clear) 04/06/20 13:34 Urine pH 7.0 (5.0-7.0) 04/06/20 13:34 Ur Specific [place] 1.017 (1.003-1.030) 04/06/20 13:34 Urine Protein 100 mg/dl mg/dL (Negative) 04/06/20 13:34 Urine Glucose (UA) 50 mg/dL (Negative) 04/06/20 13:34 Urine Ketones Tr mg/dL (Negative) 04/06/20 13:34 Urine Blood Sm (Negative) 04/06/20 13:34 Urine Nitrite Neg (Negative) 04/06/20 13:34 Urine Bilirubin Neg (Negative) 04/06/20 13:34 Urine Urobilinogen < 2.0 mg/dL (<2.0) 04/06/20 13:34 Ur Leukocyte Esterase Mod (Negative) 04/06/20 13:34 Urine WBC (Auto) > 182.0 /HPF (0.0-6.0) H 04/06/20 13:34 Urine RBC (Auto) 49.0 /HPF (0.0-6.0) 04/06/20 13:34 U Epithel Cells (Auto) 6.0 /HPF (0-13.0) 04/06/20 13:34 Urine Bacteria (Auto) 2+ /HPF (Negative) 04/06/20 13:34 Urine WBC Clumps 3+ /HPF 04/06/20 13:34 Urine Mucus 3+ /HPF 04/06/20 13:34 Salicylates < 0.3 mg/dL (2.8-20.0) L 04/06/20 14:30 Acetaminophen 5.0 ug/mL (10.0-30.0) L 04/06/20 14:30 Plasma/Serum Alcohol < 0.01 % (0-0.07) 04/06/20 14:30 Coronavirus (PCR) Negative (Negative) 04/07/20 Unknown Hepatitis A IgM Ab Non-reactive (NonReactive) 04/07/20 16:38 Hep Bs Antigen Non-reactive (Negative) 04/07/20 16:38 Hep B Core IgM Ab Non-reactive (NonReactive) 04/07/20 16:38 Hepatitis C Antibody Reactive (NonReactive) A 04/07/20 16:38 Blood Type O POSITIVE 04/06/20 14:30 Antibody Screen Negative 04/06/20 14:30 Microbiology: Microbiology 04/06/20 14:30 Peripheral/Venous Blood Culture - Preliminary NO GROWTH AFTER 72 HOURS 04/07/20 10:20 Tracheal Aspirate Sputum Culture - Preliminary 04/06/20 14:30 Peripheral/Venous Blood Culture - Preliminary Coag Negative Staphylococcus Bains/IV: Voiding Method Indwelling Catheter IV Catheter Type [Left INT / Saline Lock Antecubital] IV Catheter Type [Right INT / Saline Lock Forearm] Active Medications - Current Medications Current Medications: Generic Name Dose Route Start Last Admin Trade Name Freq PRN Reason Stop Dose Admin Acetaminophen 650 mg 04/06/20 16:39 Tylenol PO Q6H PRN Pain, Mild (1-3) Lipase/Protease/Amylase 1 each 04/07/20 10:[address] 10,500 Unit FEEDTUBE PRN PRN For Clogged Feeding Tube Carvedilol 6.25 mg 04/09/20 22:00 04/10/20 10:14 Coreg PO 6.25 mg BID NOEL Administration Dextrose 50 ml 04/09/20 16:30 D50w (25gm) Syringe IV Q30MIN PRN Hypoglycemia Protocol Famotidine 20 mg 04/07/20 10:00 04/10/20 10:13 Pepcid PO 20 mg QDAY NOEL Administration Fentanyl 50 mcg 04/06/20 13:34 Sublimaze IV Q10MIN PRN ANALGESIA Heparin Sodium (Porcine) 5,000 unit 04/06/20 22:00 04/10/20 10:13 Heparin SUB-Q 5,000 unit Q12HR NOEL Administration Hydromorphone HCl 0.25 mg 04/06/20 16:39 Dilaudid IV Q4H PRN Pain, Moderate (4-6) Hydrophilic Ointment 1 applic 04/06/20 13:34 Vaseline Lip Therapy TP Q2HR PRN Dry Lips Fentanyl Citrate 2,000 mcg in 100 mls @ 5.505 mls/hr 04/06/20 14:00 04/10/20 10:15 Fentanyl Drip Premix IV 0 mcg/kg/hr TITR NOEL 0 mls/hr Titration Protocol 1 MCG/KG/HR Nicardipine/Sodium Chloride 40 mg in 200 mls @ 25 mls/hr 04/06/20 17:00 04/06/20 23:23 Cardene Drip 40 Mg/200 Ml IV Infused TITR NOEL Titration Protocol 5 MG/HR Cefepime HCl 1 gm in 100 mls @ 200 mls/hr 04/06/20 20:00 04/09/20 19:52 Cefepime/Ns 1 Gm/100 Ml IV 200 mls/hr Q24H NOEL Administration Protocol Sodium Chloride 250 mls @ 10 mls/hr 04/07/20 10:03 04/09/20 05:38 Nacl 0.9% 250ml IV 10 mls/hr DIRECT PRN Administration FOR ABX Sodium Chloride 100 mls @ 999 mls/hr 04/07/20 17:00 Nacl 0.9% IV SPRING PRN Hypotension Daptomycin 600 mg/ Sodium 100 mls @ 200 mls/hr 04/08/20 17:00 04/08/20 18:24 Chloride IV 200 mls/hr Q48H NOEL Administration Protocol Insulin Glargine 10 units 04/09/20 17:00 04/09/20 17:34 Lantus SUB-Q 10 units Q24H NOEL Administration Insulin Human Regular 0 unit 04/09/20 18:00 04/10/20 05:46 Humulin R SUB-Q 2 unit Q6H NOEL Administration Protocol Labetalol HCl 10 mg 04/08/20 17:17 04/09/20 16:03 Labetalol IV 10 mg Q4H PRN Administration Blood Pressure Losartan Potassium 50 mg 04/09/20 18:00 04/10/20 10:14 Cozaar PO 50 mg QDAY NOEL Administration Multi-Ingred Cream/Lotion/Oil/Oint 1 applic 04/06/20 13:34 Artificial Tears Ophth Oint OU Q4HR PRN Dry Eye(s) Simple Syrup 15 ml 04/07/20 10:23 Simple Syrup FEEDTUBE PRN PRN Hypoglycemia Simple Syrup 30 ml 04/07/20 10:23 Simple Syrup FEEDTUBE PRN PRN Hypoglycemia Sodium Bicarbonate 325 mg 04/07/20 10:23 Sodium Bicarbonate FEEDTUBE PRN PRN For Clogged Feeding Tube Sodium Chloride 10 ml 04/06/20 22:00 04/10/20 10:15 Sodium Chloride Flush Syringe 10 Ml IV 10 ml BID NOEL Administration Sodium Chloride 10 ml 04/06/20 16:32 Sodium Chloride Flush Syringe 10 Ml IV PRN PRN LINE FLUSH Nutrition/Malnutrition Assess - Dietary Evaluation Nutrition/Malnutrition Findings: Nutrition Notes Start: 04/07/20 08:19 Freq: Status: Active Protocol: Document 04/07/20 10:09 AL (Rec: 04/07/20 10:26 AL [id number]) Co-Sign 04/07/20 10:09 MK Nutrition Notes Need for Assessment generated from: MD Order,gas adjuster Initial or Follow up Assessment Current Diagnosis CKD (stage V CKD),Diabetes, Hypertension,Stroke Other Pertinent Diagnosis on HD, bilateral BKA, AMS Current Diet No Diet Labs/Tests K 5.2 BUN 53 Cr 7.8 Pertinent Medications Fentanyl Height 5 ft 5 in Weight 110.1 kg [place] Body Weight (kg) 56.81 BMI 40.4 Weight Status Morbidly Obese Subjective/Other Information MD consult to write TF, skin risk asessment. Tyson score = 11. Will order TF. Percent of energy/protein needs met: 0%/0% Burn Absent Trauma Absent GI Symptoms None Current % PO Negligible Minimum of two criteria No physical signs of malnutrition #1 Nutrition Diagnosis Inadequate oral intake Etiology respiratory failure As Evidenced by Signs and Symptoms patient is on mechanical vent and is unable to eat orally Is patient on ventilator? Yes Is Patient Ambulatory and/or Out of Bed No REE-([facility]-confined to bed) 2063.820 Kcal/Kg value to use for calculation 16 Approximate Energy Requirements Using 1762 kcal/Kg Calculation Used for Recommendations Kcal/kg Additional Notes Protein Needs: up to 142 g (up to 2.5 g/kg IBW) Fluid Needs: 1 mL/kcal Nutrition Intervention Change Diet Order: TF Nutrition Support: [place] 1.8 at 45 mL/hr (goal rate) Flush 200 mL q4h Kcal 1,944 Protein (gm) 87 Fluid (mL) 785 Goal #1 Initiate TF Goal #2 Meet estimated energy and protein needs as best as possible via TF Anticipated Discharge Needs: Unable to determine at this time Follow-Up By: 04/11/20 Additional Comments F/U for TF tolerance
--- NOTE | 2020-04-10 12:23 | Progress Note ---
Assessment and Plan Cultures: Blood culture 04/06/2020: 1 out of 4 bottles coag negative staph Urine culture 04/06/2020 <10,000 mixed bacteria Respiratory culture 04/06/2020 poor specimen SARS-CoV-2 PCR negative 04/07/2020 tracheal aspirate culture: Usual respiratory sarah Assessment: 49 years old female with history of asthma, hypertension, end-stage renal disease on hemodialysis, diabetes mellitus, bipolar disorder, morbid obesity, CVA, bilateral BKA's recent COVID-19 infection requiring intubation treated with dexamethasone in December 2019 [facility], resident of a assisted, admitted on 04/06/2020 secondary to be found unresponsiveness after hemodialysis: #Severe sepsis: Present on admission with hypothermia, leukocytosis, altered mental status, likely due to bilateral pneumonia, bacteremia and UTI. #Bilateral pneumonia: Aspiration pneumonia/HAP. Of note, patient was recently admitted at [facility] in January 2020 requiring intubation for COVID-19 pneumonia. COVID-19 pneumonia was treated with dexamethasone. #Coag negative staph bacteremia: 1/4 bottles, consistent with contaminant. #UTI: Bains catheter with purulent urine. #Acute hypoxemic respiratory failure: Intubated for airway protection, O2 sats down to 87%. Patient with recent COVID-19 pneumonia, intubated at [facility] in January 2020. #Acute encephalopathy: ?due to sepsis #End-stage renal disease on hemodialysis: renally dose abx. #Extensive Candidal intertrigo in groin and vagina #Vancomycin allergy ? Causing hives. I reviewed records from [facility] and there is no documentation of vancomycin allergy, patient initially received vancomycin Recs: Given persistent/worsening leukocytosis, will switch cefepime to meropenem Daptomycin discontinued If WBC persists/worsens, consider CT chest, abdomen and pelvis with IV contrast coordinated with SAWYER Beltran MD, FACP [facility] O: [phone] F: [phone] Subjective Date of service: 04/10/20 Principal diagnosis: Ac on ch hypoxemic and hypercapnic resp failure; PUI COVID- 19 infxn; AMS Interval history: No fever. Remains intubated, on the vent. Objective - Exam Narrative Exam: Physical Exam: Constitutional: sedated, intubated, on the vent Head, Ears, Nose: Normocephalic, atraumatic. External ears, nose normal Eyes: Conjunctivae/corneas clear. No icterus. No ptosis. Neck: intubated Oral: intubated Cardiovascular: S1, S2 + Respiratory: AE fair bilaterally and equal GI: Soft, bowel sounds + Musculoskeletal: Bilateral BKA. Right chest PermCath Skin: No rash or abscess Hem/Lymphatic: No palpable cervical or supraclavicular nodes. No lymphangitis Psych: no agitation Neurological: sedated, intubated, on the vent, exam limited - Constitutional Vitals: Vital Signs Temp Pulse Resp BP Pulse Ox 99.1 F 95 H 15 167/74 100 04/10/20 03:50 04/10/20 11:54 04/10/20 11:08 04/10/20 11:54 04/10/20 11:54 Temperature -Last 24 Hours Temperature 99.1 F Temperature 99.3 F Temperature 99.0 F Temperature 98.9 F - Labs CBC & Chem 7: 04/10/20 08:18 04/10/20 08:18 Labs: Abnormal lab results 04/09/20 04/10/20 04/10/20 Range/Units 17:35 00:00 03:15 WBC (4.5-11.0) K/mm3 RBC (3.65-5.03) M/mm3 Hgb (10.1-14.3) gm/dl Hct (30.3-42.9) % RDW (13.2-15.2) % Seg Neuts % (Manual) (40.0-70.0) % Lymphocytes % (Manual) (13.4-35.0) % Basophils % (Manual) (0.0-1.8) % Seg Neutrophils # Man (1.8-7.7) K/mm3 Basophils # (Manual) (0.0-0.1) K/mm3 POC ABG pCO2 48.2 H (32.0-48.0) mmHg ABG Hemoglobin 9.9 L (12.0-17.5) ABG Sodium 135.4 L (136.0-145.0) mmol/L ABG Glucose 215 H (65-95) mg/dL Sodium (137-145) mmol/L Potassium (3.6-5.0) mmol/L Chloride (98-107) mmol/L BUN (7-17) mg/dL Creatinine (0.6-1.2) mg/dL Glucose (65-100) mg/dL POC Glucose 254 H 194 H (70-105) mg/dL Arterial Blood Glucose 215 H (65-95) mg/dL Arterial Blood Ionized Calcium 4.5 L (4.6-5.3) mg/dL 04/10/20 04/10/20 04/10/20 Range/Units 05:49 08:18 08:18 WBC 28.9 H (4.5-11.0) K/mm3 RBC 3.38 L (3.65-5.03) M/mm3 Hgb 9.5 L (10.1-14.3) gm/dl Hct 30.1 L (30.3-42.9) % RDW 16.9 H (13.2-15.2) % Seg Neuts % (Manual) 87.0 H (40.0-70.0) % Lymphocytes % (Manual) 9.0 L (13.4-35.0) % Basophils % (Manual) 2.0 H (0.0-1.8) % Seg Neutrophils # Man 25.1 H (1.8-7.7) K/mm3 Basophils # (Manual) 0.6 H (0.0-0.1) K/mm3 POC ABG pCO2 (32.0-48.0) mmHg ABG Hemoglobin (12.0-17.5) ABG Sodium (136.0-145.0) mmol/L ABG Glucose (65-95) mg/dL Sodium 134 L (137-145) mmol/L Potassium 3.5 L D (3.6-5.0) mmol/L Chloride 94.9 L (98-107) mmol/L BUN 38 H (7-17) mg/dL Creatinine 5.5 H (0.6-1.2) mg/dL Glucose 230 H (65-100) mg/dL POC Glucose 221 H (70-105) mg/dL Arterial Blood Glucose (65-95) mg/dL Arterial Blood Ionized Calcium (4.6-5.3) mg/dL - Imaging and cardiology Chest x-ray: report reviewed, image reviewed (no pneumonia seen)
--- NOTE | 2020-04-10 13:54 | Progress Note ---
Assessment and Plan Acute on chronic hypoxemic and hypercapnic respiratory failure. Coronavirus-19 infection. Acute encephalopathy. Bibasilar atelectasis. End-stage renal disease, on dialysis. Morbid obesity. History of a cerebrovascular accident. Diabetes type 2. History of chronic obstructive pulmonary disease. History of anemia. - resume SBT in am - neurology evaluation pending - continue home Losartan & Carvedilol - continue prn IV Labetalol - bilateral lower extremity dopplers negative - keep set rate at 12/min - continue care as below otherwise; - continue Daily SAT and SBT assessment as tolerated - continue to wean supplemental oxygen for target O2 sat's > 90% acutely - VAP bundle addressed - continue lung protective strategies - continue bronchodilators with pulmonary hygiene per RT - wean per pulmonary driven protocols otherwise - continue accuchecks with glycemic control per SSI (While critically ill target blood glucose of 140-180 mg/dL; avoid hypoglycemia) - continue fentanyl for sedation / analgesia - sedation prn for target RASS 0 to -1 - avoid nephrotoxins, renally dose all medications - continue to avoid benzodiazepine's, reduce the possibility of delirium - complete AB's per ID rec's - prn analgesia per CPOT score - Maintenance of sleep-wake cycle, avoid delirium - continue enteral nutritional support at goal rate as tolerated - G.I. & VTE prophylaxis - PT/OT/ROM exercises - continue mobility protocols for pressure ulcer prophylaxis - Monitor hemodynamics closely - continue other care per attending / other consultants - discharge planning ongoing concurrently .... Re-evaluate in am & prn CONDITION: CRITICAL PROGNOSIS: GUARDED CODE STATUS: FULL CODE The high probability of a clinically significant, sudden or life-threatening deterioration of the [respiratory, cardiovascular, renal & neurologic] system(s) required my full and direct attention, intervention and personal management. The aggregate critical care time was [35] minutes without overlap. Time includes spent on; [x] Data Review and interpretation [x] Patient assessment and monitoring of vital signs [x] Documentation [x] Medication orders and management Subjective Date of service: 04/10/20 Principal diagnosis: Ac on ch hypoxemic and hypercapnic resp failure; PUI COVID- 19 infxn; AMS Interval history: Patient is seen today for: Acute on chronic hypoxemic and hypercapnic resp failure; PUI Coronavirus-19 infection; Acute encephalopathy; ESRD; Morbid obesity; DM II; AE-COPD Seen and examined at bedside; 24hour events reviewed; nursing and respiratory care staff consulted; no adverse overnight events reported to me; resting peacefully in bed; remains on MVS; did not tolerate PSV trial today; remains encephalopathic; no emesis or overt aspiration; afebrile Objective Vital Signs - 12hr 04/10/20 04/10/20 04/10/20 03:24 03:49 03:50 Temperature 99.1 F Pulse Rate 102 H Pulse Rate [ 91 H From Monitor] Respiratory 15 Rate Respiratory Rate [ Generalized] Blood Pressure 165/75 O2 Sat by Pulse 100 Oximetry 04/10/20 04/10/20 04/10/20 08:00 08:33 10:00 Temperature Pulse Rate 104 H 95 H Pulse Rate [ 110 H From Monitor] Respiratory 18 Rate Respiratory 16 Rate [ Generalized] Blood Pressure 132/59 O2 Sat by Pulse 98 100 Oximetry 04/10/20 04/10/20 04/10/20 10:14 11:08 11:54 Temperature Pulse Rate 98 H 95 H 95 H Pulse Rate [ From Monitor] Respiratory 15 Rate Respiratory Rate [ Generalized] Blood Pressure 153/57 167/74 167/74 O2 Sat by Pulse 99 100 Oximetry Constitutional: appears uncomfortable, other (middle aged obese female with mild ventilator dys-synchrony) Eyes: non-icteric ENT: oropharynx moist, other (ETT 23 cm PARRISH) Neck: supple, no lymphadenopathy, no JVD Effort: mildly labored Ascultation: Bilateral: diminished breath sounds, rhonchi Percussion: Bilateral: not dull Cardiovascular: regular rate and rhythm Gastrointestinal: normoactive bowel sounds, soft, non-tender, non-distended (protuberant) Integumentary: erythema (right BKA stump) Extremities: no cyanosis, no edema, no ischemia or petechiae Neurologic: non-focal exam (grossly), pupils equal and round, unable to assess Psychiatric: other (unable to assess re: AMS) CBC and BMP: 04/11/20 07:39 04/11/20 07:39 ABG, PT/INR, D-dimer: ABG ABG pH 7.343 (7.320-7.450) 04/10/20 03:15 POC ABG pCO2 48.2 mmHg (32.0-48.0) H 04/10/20 03:15 ABG pCO2 44.5 mm Hg 04/08/20 Unknown POC ABG pO2 88.5 mmHg (83-108) 04/10/20 03:15 ABG pO2 117.3 mm Hg (80.0-90.0) H 04/08/20 Unknown POC ABG HCO3 25.6 04/10/20 03:15 ABG O2 Saturation 98.1 % (95.0-99.0) 04/08/20 Unknown PT/INR, D-dimer PT 13.8 Sec. (12.2-14.9) 04/06/20 14:30 INR 1.04 (0.87-1.13) 04/06/20 14:30 D-Dimer 1063.66 ng/mlDDU (0-234) H 04/07/20 09:34 Abnormal lab findings: Abnormal Labs 04/06/20 04/06/20 04/06/20 13:34 14:30 14:30 WBC 19.2 H RBC Hgb Hct RDW 17.8 H Seg Neuts % (Manual) 90.0 H Lymphocytes % (Manual) 4.0 L Basophils % (Manual) Seg Neutrophils # Man 17.3 H Lymphocytes # (Manual) 0.8 L Basophils # (Manual) D-Dimer ABG pH POC ABG pCO2 POC ABG pO2 ABG pO2 ABG HCO3 ABG Base Excess ABG Hemoglobin ABG Sodium ABG Chloride ABG Glucose Sodium Potassium 5.2 H Chloride Carbon Dioxide 17 L BUN 53 H Creatinine 7.8 H Glucose 144 H POC Glucose Magnesium Ferritin Alkaline Phosphatase 738 H Lactate Dehydrogenase Total Creatine Kinase 23 L Troponin T 0.224 H* C-Reactive Protein Albumin 3.1 L Triglycerides 342 H Cholesterol 223 H HDL Cholesterol 35 L Arterial Blood Glucose Arterial Blood Ionized Calcium Urine WBC (Auto) > 182.0 H Salicylates Acetaminophen Hepatitis C Antibody 04/06/20 04/06/20 04/06/20 14:30 14:30 14:30 WBC RBC Hgb Hct RDW Seg Neuts % (Manual) Lymphocytes % (Manual) Basophils % (Manual) Seg Neutrophils # Man Lymphocytes # (Manual) Basophils # (Manual) D-Dimer ABG pH POC ABG pCO2 POC ABG pO2 ABG pO2 ABG HCO3 ABG Base Excess ABG Hemoglobin ABG Sodium ABG Chloride ABG Glucose Sodium Potassium Chloride Carbon Dioxide BUN Creatinine Glucose POC Glucose Magnesium 2.50 H Ferritin Alkaline Phosphatase Lactate Dehydrogenase Total Creatine Kinase 24 L Troponin T C-Reactive Protein Albumin Triglycerides Cholesterol HDL Cholesterol Arterial Blood Glucose Arterial Blood Ionized Calcium Urine WBC (Auto) Salicylates < 0.3 L Acetaminophen 5.0 L Hepatitis C Antibody 04/06/20 04/06/20 04/07/20 14:39 20:00 00:48 WBC RBC Hgb Hct RDW Seg Neuts % (Manual) Lymphocytes % (Manual) Basophils % (Manual) Seg Neutrophils # Man Lymphocytes # (Manual) Basophils # (Manual) D-Dimer ABG pH 7.281 L 7.306 L POC ABG pCO2 POC ABG pO2 78.0 L ABG pO2 133.8 H ABG HCO3 18.3 L ABG Base Excess -7.8 L ABG Hemoglobin 10.8 L 10.8 L ABG Sodium ABG Chloride 108.0 H ABG Glucose Sodium Potassium Chloride Carbon Dioxide BUN Creatinine Glucose POC Glucose 69 L Magnesium Ferritin Alkaline Phosphatase Lactate Dehydrogenase Total Creatine Kinase Troponin T C-Reactive Protein Albumin Triglycerides Cholesterol HDL Cholesterol Arterial Blood Glucose Arterial Blood Ionized Calcium Urine WBC (Auto) Salicylates Acetaminophen Hepatitis C Antibody 04/07/20 04/07/20 04/07/20 09:34 09:34 09:34 WBC RBC Hgb Hct RDW Seg Neuts % (Manual) Lymphocytes % (Manual) Basophils % (Manual) Seg Neutrophils # Man Lymphocytes # (Manual) Basophils # (Manual) D-Dimer 1063.66 H ABG pH POC ABG pCO2 POC ABG pO2 ABG pO2 ABG HCO3 ABG Base Excess ABG Hemoglobin ABG Sodium ABG Chloride ABG Glucose Sodium Potassium Chloride Carbon Dioxide BUN Creatinine Glucose POC Glucose Magnesium Ferritin 743.0 H Alkaline Phosphatase Lactate Dehydrogenase 195 H Total Creatine Kinase Troponin T C-Reactive Protein 7.50 H Albumin Triglycerides Cholesterol HDL Cholesterol Arterial Blood Glucose Arterial Blood Ionized Calcium Urine WBC (Auto) Salicylates Acetaminophen Hepatitis C Antibody 04/07/20 04/07/20 04/07/20 10:01 16:38 23:51 WBC RBC Hgb Hct RDW Seg Neuts % (Manual) Lymphocytes % (Manual) Basophils % (Manual) Seg Neutrophils # Man Lymphocytes # (Manual) Basophils # (Manual) D-Dimer ABG pH POC ABG pCO2 POC ABG pO2 79.8 L ABG pO2 ABG HCO3 ABG Base Excess ABG Hemoglobin 10.3 L ABG Sodium ABG Chloride 109.0 H ABG Glucose Sodium Potassium Chloride Carbon Dioxide BUN Creatinine Glucose POC Glucose 117 H Magnesium Ferritin Alkaline Phosphatase Lactate Dehydrogenase Total Creatine Kinase Troponin T C-Reactive Protein Albumin Triglycerides Cholesterol HDL Cholesterol Arterial Blood Glucose Arterial Blood Ionized Calcium 4.5 L Urine WBC (Auto) Salicylates Acetaminophen Hepatitis C Antibody Reactive A 04/08/20 04/08/20 04/08/20 04:58 12:48 17:03 WBC RBC Hgb Hct RDW Seg Neuts % (Manual) Lymphocytes % (Manual) Basophils % (Manual) Seg Neutrophils # Man Lymphocytes # (Manual) Basophils # (Manual) D-Dimer ABG pH POC ABG pCO2 POC ABG pO2 ABG pO2 ABG HCO3 ABG Base Excess ABG Hemoglobin ABG Sodium ABG Chloride ABG Glucose Sodium Potassium Chloride Carbon Dioxide BUN Creatinine Glucose POC Glucose 129 H 155 H 201 H Magnesium Ferritin Alkaline Phosphatase Lactate Dehydrogenase Total Creatine Kinase Troponin T C-Reactive Protein Albumin Triglycerides Cholesterol HDL Cholesterol Arterial Blood Glucose Arterial Blood Ionized Calcium Urine WBC (Auto) Salicylates Acetaminophen Hepatitis C Antibody 04/08/20 04/08/20 04/09/20 23:49 Unknown 05:31 WBC RBC Hgb Hct RDW Seg Neuts % (Manual) Lymphocytes % (Manual) Basophils % (Manual) Seg Neutrophils # Man Lymphocytes # (Manual) Basophils # (Manual) D-Dimer ABG pH 7.349 L POC ABG pCO2 POC ABG pO2 ABG pO2 117.3 H ABG HCO3 ABG Base Excess ABG Hemoglobin 7.4 L ABG Sodium ABG Chloride ABG Glucose Sodium Potassium Chloride Carbon Dioxide BUN Creatinine Glucose POC Glucose 178 H 248 H Magnesium Ferritin Alkaline Phosphatase Lactate Dehydrogenase Total Creatine Kinase Troponin T C-Reactive Protein Albumin Triglycerides Cholesterol HDL Cholesterol Arterial Blood Glucose Arterial Blood Ionized Calcium Urine WBC (Auto) Salicylates Acetaminophen Hepatitis C Antibody 04/09/20 04/09/20 04/09/20 11:39 17:35 Unknown WBC RBC Hgb Hct RDW Seg Neuts % (Manual) Lymphocytes % (Manual) Basophils % (Manual) Seg Neutrophils # Man Lymphocytes # (Manual) Basophils # (Manual) D-Dimer ABG pH POC ABG pCO2 51.6 H POC ABG pO2 ABG pO2 ABG HCO3 ABG Base Excess ABG Hemoglobin 11.4 L ABG Sodium 130.1 L ABG Chloride ABG Glucose 249 H Sodium Potassium Chloride Carbon Dioxide BUN Creatinine Glucose POC Glucose 319 H 254 H Magnesium Ferritin Alkaline Phosphatase Lactate Dehydrogenase Total Creatine Kinase Troponin T C-Reactive Protein Albumin Triglycerides Cholesterol HDL Cholesterol Arterial Blood Glucose 249 H Arterial Blood Ionized Calcium 4.1 L Urine WBC (Auto) Salicylates Acetaminophen Hepatitis C Antibody 04/10/20 04/10/20 04/10/20 00:00 03:15 05:49 WBC RBC Hgb Hct RDW Seg Neuts % (Manual) Lymphocytes % (Manual) Basophils % (Manual) Seg Neutrophils # Man Lymphocytes # (Manual) Basophils # (Manual) D-Dimer ABG pH POC ABG pCO2 48.2 H POC ABG pO2 ABG pO2 ABG HCO3 ABG Base Excess ABG Hemoglobin 9.9 L ABG Sodium 135.4 L ABG Chloride ABG Glucose 215 H Sodium Potassium Chloride Carbon Dioxide BUN Creatinine Glucose POC Glucose 194 H 221 H Magnesium Ferritin Alkaline Phosphatase Lactate Dehydrogenase Total Creatine Kinase Troponin T C-Reactive Protein Albumin Triglycerides Cholesterol HDL Cholesterol Arterial Blood Glucose 215 H Arterial Blood Ionized Calcium 4.5 L Urine WBC (Auto) Salicylates Acetaminophen Hepatitis C Antibody 04/10/20 04/10/20 04/10/20 08:18 08:18 12:22 WBC 28.9 H RBC 3.38 L Hgb 9.5 L Hct 30.1 L RDW 16.9 H Seg Neuts % (Manual) 87.0 H Lymphocytes % (Manual) 9.0 L Basophils % (Manual) 2.0 H Seg Neutrophils # Man 25.1 H Lymphocytes # (Manual) Basophils # (Manual) 0.6 H D-Dimer ABG pH POC ABG pCO2 POC ABG pO2 ABG pO2 ABG HCO3 ABG Base Excess ABG Hemoglobin ABG Sodium ABG Chloride ABG Glucose Sodium 134 L Potassium 3.5 L D Chloride 94.9 L Carbon Dioxide BUN 38 H Creatinine 5.5 H Glucose 230 H POC Glucose 218 H Magnesium Ferritin Alkaline Phosphatase Lactate Dehydrogenase Total Creatine Kinase Troponin T C-Reactive Protein Albumin Triglycerides Cholesterol HDL Cholesterol Arterial Blood Glucose Arterial Blood Ionized Calcium Urine WBC (Auto) Salicylates Acetaminophen Hepatitis C Antibody Chest x-ray: image reviewed (faint RLL>LLL infiltrates) Allied health notes reviewed: nursing
[2020-04-10] MEDS: INSULIN GLARGINE 100 UNITS/ML SUB-Q SCH (17:11)
[2020-04-10] MEDS: MEROPENEM/NS 1 GRAM/100 ML 1 GRAM/100 ML BAG IV SCH (17:11)
--- NOTE | 2020-04-10 17:26 | Vascular Lab Report ---
DUPLEX DOPPLER LOWER EXTREMITY VEINS, BILATERAL INDICATION / CLINICAL INFORMATION: swelling. TECHNIQUE: Duplex doppler imaging was performed through the veins of both lower extremities using venous diana guera and other maneuvers. COMPARISON: None available. FINDINGS: RIGHT COMMON FEMORAL VEIN: Negative. RIGHT FEMORAL VEIN: Negative. RIGHT POPLITEAL VEIN: Negative. RIGHT CALF VEINS: Negative. LEFT COMMON FEMORAL VEIN: Negative. LEFT FEMORAL VEIN: Negative. LEFT POPLITEAL VEIN: Negative. LEFT CALF VEINS: Negative. ADDITIONAL FINDINGS: None. IMPRESSION: 1. No sonographic evidence for DVT in either lower extremity. Signer Name: Lev Solano MD FACStephon Signed: 04/10/2020 5:21 PM Workstation Name: [id number]
[2020-04-11] MEDS: fentaNYL DRIP Premix 2,000 MCG/100 ML BAG IV SCH ×2 (01:13→22:55)
--- NOTE | 2020-04-11 02:59 | XRay Report ---
CHEST 1 VIEW 04/11/2020 1:49 AM INDICATION / CLINICAL INFORMATION: follow up respiratory failure. COMPARISON: 04/10/2020 FINDINGS: SUPPORT DEVICES: Stable, satisfactory device positioning. HEART / MEDIASTINUM: Stable. LUNGS / PLEURA: Stable bibasilar pulmonary opacities. No pneumothorax. ADDITIONAL FINDINGS: No significant additional findings. IMPRESSION: 1. No significant change. Signer Name: Jaswinder Us MD Signed: 04/11/2020 2:54 AM Workstation Name: [email or web address]
[2020-04-11 04:26] LABS: ABG Base Excess -0.1 mmol/L (-2.0-3.0); ABG HCO3 26.7 mmol/L (20.0-26.0); ABG Methemoglobin 0.7 % (0.0-1.5); ABG PH 7.313 pH Units (7.350-7.450); ABG PO2 73.4 mm Hg (80.0-90.0)
[2020-04-11] MEDS: INSULIN REGULAR, HUMAN 100 UNIT/ML 3ML VIAL SUB-Q SCH ×3 (05:23→18:56)
[2020-04-11 08:15] LABS: Hematocrit 29.5 % (30.3-42.9); Hemoglobin 9.4 gm/dl (10.1-14.3); Mean Corpuscular HGB Conc 32 % (30-34); Mean Corpuscular Volume 89 fl (79-97); Platelet Count 339 K/mm3 (140-440); Red Blood Count 3.32 M/mm3 (3.65-5.03); Red Cell Distribution Width 17.2 % (13.2-15.2)
[2020-04-11 08:35] LABS: Calcium 8.3 mg/dL (8.4-10.2)
--- NOTE | 2020-04-11 09:09 | Progress Note ---
Assessment and Plan Impression: * End stage renal disease * Sepsis * Positive blood cx - likely contaminant --Blood cx: staph epi (05/29 bottles - Apr 06) * Acute hypoxic respiratory failure * Acute encephalopathy * UTI * Hx of COVID 19 --SARS Cov2 PCR negative Apr 07 * Metabolic acidosis Plan: * Continue hemodialysis on TTS schedule * UF as tolerated * Abx per ID * Await ID and senstivities of blood cultures * Vent management per CCM * Dose medications for renal function * AM labs Subjective Date of service: 04/11/20 Principal diagnosis: Ac on ch hypoxemic and hypercapnic resp failure; PUI COVID- 19 infxn; AMS Interval history: resting in bed, events noted Objective - Exam Narrative Exam: General appearance: well-developed, well-nourished EENT: ATNC, other (ETT in place) Respiratory: Present: Other (coarse BS) Cardiology: regular, S1S2 Gastrointestinal: obese Integumentary: warm and dry Musculoskeletal: other (Bilateral BKA) - Vital Signs Vital signs: Vital Signs - 12hr 04/10/20 04/10/20 04/10/20 21:16 21:30 21:46 Temperature Pulse Rate 86 78 87 Pulse Rate [ From Monitor] Respiratory 12 12 12 Rate Respiratory Rate [ Generalized] Blood Pressure 157/52 157/52 157/52 O2 Sat by Pulse 99 99 100 Oximetry 04/10/20 04/10/20 04/10/20 22:00 22:16 22:30 Temperature Pulse Rate 79 83 80 Pulse Rate [ From Monitor] Respiratory 11 L 11 L 11 L Rate Respiratory 16 Rate [ Generalized] Blood Pressure 127/39 127/39 127/39 O2 Sat by Pulse 100 100 100 Oximetry 04/10/20 04/10/20 04/10/20 22:46 23:00 23:16 Temperature Pulse Rate 77 78 75 Pulse Rate [ From Monitor] Respiratory 12 12 12 Rate Respiratory Rate [ Generalized] Blood Pressure 127/39 135/42 135/42 O2 Sat by Pulse 99 98 99 Oximetry 04/10/20 04/10/20 04/10/20 23:30 23:46 23:49 Temperature 99.1 F Pulse Rate 73 74 73 Pulse Rate [ From Monitor] Respiratory 12 12 Rate Respiratory Rate [ Generalized] Blood Pressure 135/42 135/42 135/42 O2 Sat by Pulse 99 98 98 Oximetry 11/04/11/20 04/11/20 00:00 00:16 00:30 Temperature Pulse Rate 76 74 75 Pulse Rate [ 77 From Monitor] Respiratory 12 12 12 Rate Respiratory Rate [ Generalized] Blood Pressure 131/43 131/43 131/43 O2 Sat by Pulse 99 99 99 Oximetry 04/11/20 04/11/20 04/11/20 00:46 01:00 01:16 Temperature Pulse Rate 74 74 80 Pulse Rate [ From Monitor] Respiratory 12 13 12 Rate Respiratory Rate [ Generalized] Blood Pressure 131/43 131/43 126/43 O2 Sat by Pulse 99 100 98 Oximetry 04/11/20 04/11/20 04/11/20 01:30 01:46 02:00 Temperature Pulse Rate 104 H 103 H 105 H Pulse Rate [ From Monitor] Respiratory 15 22 16 Rate Respiratory Rate [ Generalized] Blood Pressure 126/43 131/43 131/43 O2 Sat by Pulse Oximetry 04/11/20 04/11/20 04/11/20 02:16 02:30 02:46 Temperature Pulse Rate 99 H 92 H 80 Pulse Rate [ From Monitor] Respiratory 12 14 11 L Rate Respiratory Rate [ Generalized] Blood Pressure 150/79 150/79 150/79 O2 Sat by Pulse 99 100 94 Oximetry 04/11/20 04/11/20 04/11/20 03:00 03:16 03:30 Temperature Pulse Rate 79 78 81 Pulse Rate [ From Monitor] Respiratory 12 12 12 Rate Respiratory Rate [ Generalized] Blood Pressure 150/79 112/48 112/48 O2 Sat by Pulse 93 95 97 Oximetry 04/11/20 04/11/20 04/11/20 03:34 03:46 04:00 Temperature 99.1 F Pulse Rate 80 77 Pulse Rate [ 78 From Monitor] Respiratory 11 L 12 Rate Respiratory Rate [ Generalized] Blood Pressure 112/48 112/36 O2 Sat by Pulse 96 97 Oximetry 04/11/20 04/11/20 04/11/20 04:13 04:16 04:30 Temperature Pulse Rate 91 H 79 80 Pulse Rate [ From Monitor] Respiratory 12 12 Rate Respiratory Rate [ Generalized] Blood Pressure 112/36 112/36 112/36 O2 Sat by Pulse 99 96 97 Oximetry 04/11/20 04/11/20 04/11/20 04:46 05:00 05:16 Temperature Pulse Rate 76 77 70 Pulse Rate [ From Monitor] Respiratory 12 12 13 Rate Respiratory Rate [ Generalized] Blood Pressure 112/36 96/39 96/39 O2 Sat by Pulse 98 97 98 Oximetry 04/11/20 04/11/20 04/11/20 05:30 05:46 06:00 Temperature Pulse Rate 72 72 74 Pulse Rate [ From Monitor] Respiratory 12 12 11 L Rate Respiratory Rate [ Generalized] Blood Pressure 96/39 96/39 91/33 O2 Sat by Pulse 96 96 97 Oximetry 04/11/20 04/11/20 04/11/20 06:16 06:30 06:46 Temperature Pulse Rate 72 74 73 Pulse Rate [ From Monitor] Respiratory 12 12 12 Rate Respiratory Rate [ Generalized] Blood Pressure 91/33 91/33 91/33 O2 Sat by Pulse 97 97 98 Oximetry 04/11/20 04/11/20 04/11/20 07:00 07:16 07:30 Temperature Pulse Rate 71 73 71 Pulse Rate [ From Monitor] Respiratory 12 12 12 Rate Respiratory Rate [ Generalized] Blood Pressure 97/37 97/37 97/37 O2 Sat by Pulse 97 98 97 Oximetry 04/11/20 04/11/20 04/11/20 07:46 07:51 08:00 Temperature Pulse Rate 72 74 79 Pulse Rate [ From Monitor] Respiratory 12 12 Rate Respiratory Rate [ Generalized] Blood Pressure 97/37 91/33 129/46 O2 Sat by Pulse 98 97 100 Oximetry 04/11/20 04/11/20 04/11/20 08:16 08:30 08:46 Temperature Pulse Rate 76 93 H 95 H Pulse Rate [ From Monitor] Respiratory 12 12 11 L Rate Respiratory Rate [ Generalized] Blood Pressure 129/46 129/46 129/46 O2 Sat by Pulse 99 100 100 Oximetry 04/11/20 09:00 Temperature Pulse Rate 99 H Pulse Rate [ From Monitor] Respiratory 20 Rate Respiratory Rate [ Generalized] Blood Pressure 181/83 O2 Sat by Pulse 99 Oximetry - Lab 04/11/20 07:39 04/11/20 07:39 Most recent lab results ABG pH 7.313 pH Units (7.350-7.450) L 04/11/20 03:44 ABG pCO2 54.0 mm Hg 04/11/20 03:44 ABG pO2 73.4 mm Hg (80.0-90.0) L 04/11/20 03:44 ABG HCO3 26.7 mmol/L (20.0-26.0) H 04/11/20 03:44 ABG O2 Saturation 95.0 % (95.0-99.0) 04/11/20 03:44 Calcium 8.3 mg/dL (8.4-10.2) L 04/11/20 07:39 Magnesium 2.50 mg/dL (1.7-2.3) H 04/06/20 14:30 Medications & Allergies - Medications Allergies/Adverse Reactions: Allergies carrot Allergy (Verified 07/28/19 12:30) Hives erythromycin base Allergy (Verified 07/30/19 11:26) Hives latex Allergy (Verified 02/18/19 13:20) Rash peas Allergy (Verified 12/20/19 12:37) Hives vancomycin Allergy (Verified 12/31/19 15:46) Hives Home Medications: Home Medications Medication Instructions Recorded Confirmed Last Taken Type Aripiprazole 5 mg PO DAILY 02/18/19 04/06/20 02/17/19 History Benadryl CAP 25 mg PO Q8H PRN 02/18/19 04/06/20 02/17/19 History Calcium Acetate 667 mg PO TIDWM 02/18/19 04/06/20 02/17/19 History Carvedilol 6.25 mg PO Q12H 02/18/19 04/06/20 02/17/19 History Colace CAP 100 mg PO Q12H PRN 02/18/19 04/06/20 02/17/19 History Esomeprazole Magnesium 40 mg PO QDAC 02/18/19 04/06/20 02/17/19 History HumaLOG 10 units SUB-Q TIDWM 02/18/19 04/06/20 02/17/19 History Insulin Detemir (Nf) [Levemir See Protocol SQ QHS 02/18/19 04/06/20 02/17/19 History Flextouch (Nf)] Losartan Potassium 50 mg PO DAILY 02/18/19 04/06/20 02/17/19 History Lyrica 75 mg PO Q12H 02/18/19 04/06/20 02/17/19 History Melatonin 6 mg PO QHS 02/18/19 04/06/20 02/17/19 History Senna 17.2 mg PO QHS PRN 09/04/06/20 02/17/19 History Venlafaxine HCl [Venlafaxine HCl 150 mg PO QDAC 02/18/19 04/06/20 02/17/19 His tory ER] Vitamin C 250 mg PO DAILY 02/18/19 04/06/20 02/17/19 History ZyrTEC 10mg cap 10 mg PO DAILY 02/18/19 04/06/20 02/17/19 History Calcium Acetate [Phoslo] 667 mg PO TIDWM capsule 12/22/19 04/06/20 Unknown Rx Fe Fumarate/FA/Mv, Min Comb#15 1 each PO QDAY capsule 12/22/19 04/06/20 Unknown Rx [Hemocyte Plus] Albuterol Mdi (or & Nicu Only) 2.5 puff IH Q4HRT PRN inha 01/12/20 04/06/20 Unknown Rx [ProAir HFA Inhaler] dexAMETHasone [Decadron] 6 mg PO Q12HR #10 tablet 01/12/20 04/06/20 Unknown Rx oxyCODONE 5 mg PO Q6H PRN #10 01/12/20 04/06/20 Unknown Rx Active Medications: Generic Name Dose Route Start Last Admin Trade Name Freq PRN Reason Stop Dose Admin Acetaminophen 650 mg 04/06/20 16:39 Tylenol PO Q6H PRN Pain, Mild (1-3) Lipase/Protease/Amylase 1 each 04/07/20 10:23 Pancreaze 10,500 Unit FEEDTUBE PRN PRN For Clogged Feeding Tube Carvedilol 6.25 mg 04/09/20 22:00 04/10/20 21:16 Coreg PO 6.25 mg BID NOEL Administration Dextrose 50 ml 04/09/20 16:30 D50w (25gm) Syringe IV Q30MIN PRN Hypoglycemia Protocol Famotidine 20 mg 04/07/20 10:00 04/10/20 10:13 Pepcid PO 20 mg QDAY NOEL Administration Fentanyl 50 mcg 04/06/20 13:34 Sublimaze IV Q10MIN PRN ANALGESIA Heparin Sodium (Porcine) 5,000 unit 04/06/20 22:00 04/10/20 21:16 Heparin SUB-Q 5,000 unit Q12HR NOEL Administration Hydromorphone HCl 0.25 mg 04/06/20 16:39 Dilaudid IV Q4H PRN Pain, Moderate (4-6) Hydrophilic Ointment 1 applic 04/06/20 13:34 Vaseline Lip Therapy TP Q2HR PRN Dry Lips Fentanyl Citrate 2,000 mcg in 100 mls @ 5.505 mls/hr 04/06/20 14:00 04/11/20 08:00 Fentanyl Drip Premix IV 0 mcg/kg/hr TITR NOEL 0 mls/hr Titration Protocol 1 MCG/KG/HR Nicardipine/Sodium Chloride 40 mg in 200 mls @ 25 mls/hr 04/06/20 17:00 04/06/20 23:23 Cardene Drip 40 Mg/200 Ml IV Infused TITR NOEL Titration Protocol 5 MG/HR Sodium Chloride 250 mls @ 10 mls/hr 04/07/20 10:03 04/09/20 05:38 Nacl 0.9% 250ml IV 10 mls/hr DIRECT PRN Administration FOR ABX Sodium Chloride 100 mls @ 999 mls/hr 04/07/20 17:00 Nacl 0.9% IV SPRING PRN Hypotension MEROPENEM/NS 1 GRAM/100 ML 1 gram in 100 mls @ 100 mls/hr 04/10/20 18:00 04/10/20 17:11 Merrem/Ns 1 Gram/100 Ml IV 100 mls/hr QPM NOEL Administration Protocol Insulin Glargine 10 units 04/09/20 17:00 04/10/20 17:11 Lantus SUB-Q 10 units Q24H NOEL Administration Insulin Human Regular 0 unit 04/09/20 18:00 04/11/20 05:23 Humulin R SUB-Q 1 unit Q6H NOEL Administration Protocol Labetalol HCl 10 mg 04/08/20 17:17 04/09/20 16:03 Labetalol IV 10 mg Q4H PRN Administration Blood Pressure Losartan Potassium 50 mg 04/09/20 18:00 04/10/20 10:14 Cozaar PO 50 mg QDAY NOEL Administration Multi-Ingred Cream/Lotion/Oil/Oint 1 applic 04/06/20 13:34 Artificial Tears Ophth Oint OU Q4HR PRN Dry Eye(s) Simple Syrup 15 ml 04/07/20 10:23 Simple Syrup FEEDTUBE PRN PRN Hypoglycemia Simple Syrup 30 ml 04/07/20 10:23 Simple Syrup FEEDTUBE PRN PRN Hypoglycemia Sodium Bicarbonate 325 mg 04/07/20 10:23 Sodium Bicarbonate FEEDTUBE PRN PRN For Clogged Feeding Tube Sodium Chloride 10 ml 04/06/20 22:00 04/10/20 21:17 Sodium Chloride Flush Syringe 10 Ml IV 10 ml BID NOEL Administration Sodium Chloride 10 ml 04/06/20 16:32 Sodium Chloride Flush Syringe 10 Ml IV PRN PRN LINE FLUSH
--- NOTE | 2020-04-11 09:39 | Progress Note ---
Assessment and Plan Assessment and plan: Severe sepsis. Present on admission with hypothermia, leukocytosis, altered mental status, likely due to bilateral pneumonia. F/U Blood Cx. Cont. Abx pre ID Bilateral pneumonia. Aspiration pneumonia/HAP Severe UTI. Bains catheter with purulent urine. Acute hypoxemic respiratory failure. Intubated for airway protection, O2 sats down to 87%. Toxic metabolic encephalopathy. Etiology secondary to sepsis End-stage renal disease on hemodialysis Extensive Candidal intertrigo in groin and vagina. Cont. Fluconazole History COVID-19 infection (01/07/2020) 04/08/2020. Patient remains intubated on mechanical ventilation with AC mode ventilation rate 12, tidal volume 450, FiO2 40% and a PEEP of 6. Continue weaning per protocols. Patient with ESRD and continue TTS schedule per nephrology. Patient does have a history of COVID-19 infection(01/07/20) but negative testing April 07. Follow-up blood/urine/sputum culture. Continue antibiotics per ID recommendations. 04/09/2020. Patient not tolerating PSV 12/6 with FiO2 of 30%. Continue hemodialysis per nephrology recommendations. Continue IV antibiotics per ID recommendations. Blood cultures no growth to date. Respiratory therapy reports patient with accelerated hypertension and apneic episodes on PSV ventilation. Await pulmonary recommendations. 04/10/2020. Patient remains on mechanical ventilation AC mode rate 12, tidal volume 450, FiO2 30% and a PEEP of 6. Continue PSV trials per protocols. Continue hemodialysis per nephrology recommendations. Continue anti-infectives of fluconazole and cefepime. Follow-up blood/urine/sputum culture. ID, pulmonary and nephrology following. 04/11/2020; patient remains on mechanical ventilation AC mode rate 12, tidal volume 450, FiO2 of 30 and PEEP of 6. Continue PSV trials per protocols. continue hemodialysis per nephrology. ID changed antibiotics to meropenem. Blood culture grew staph epidermidis likey contaminant. The high probability of a clinically significant, sudden or life threatening deterioration of the [respiratory] system(s) required my full and direct attention, intervention and personal management. The aggregate critical care time was [33] minutes. This time is in addition to time spent performing reported procedures but includes the following: [x] Data Review and interpretation [x] Patient assessment and monitoring of vital signs [x] Documentation [x] Medication orders and management History Interval history: 49 years old female with history of asthma, hypertension, end-stage renal dise ase on hemodialysis, diabetes mellitus, bipolar disorder, morbid obesity, CVA, resident of a residential, admitted on 04/06/2020 secondary to be found Unresponsiveness after hemodialysis. Patient is unable to provide history, currently intubated. Patient received hemodialysis and after completion she became unresponsive. Upon EMS arrival, blood pressure was 90/60, HR 88, temperature 97.2. Per records, patient was not complaining of any symptoms. On arrival, temperature 94.1, HR 66, RR 18, O2 sat 87%, BP 131/111. Initial WBC 19.2. Urinalysis showed more than 182 WBCs and moderate leukocyte esterase. Chest x-ray shows bibasilar infiltrates. Patient was intubated in the emergency room to protect airway. Bains catheter was placed yielding purulent urine. No new issues overnight. Patient remains intubated on mechanical ventilation History Interval history: Patient was seen and evaluated this morning Patient is intubated and on mechanical ventilation Patient open her eyes spontaneously Hospitalist Physical - Physical exam Narrative exam: Continue intubated and on mechanical ventilation. The patient appeared well nourished and normally developed. Vital signs as documented. Head exam is unremarkable. No scleral icterus . Neck is without jugular venous distension, thyromegaly, or carotid bruits. Lungs are clear to auscultation. Cardiac exam reveals regular rate and Rhythm. Abdominal exam reveals normal bowel sounds, nontender, no organomegaly. Extremities are nonedematous and both femoral and pedal pulses are normal. 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 - Constitutional Vitals: Temp Pulse Resp BP Pulse Ox 99.1 F 99 H 20 181/83 99 04/11/20 03:34 04/11/20 09:00 04/11/20 09:00 04/11/20 09:00 04/11/20 09:00 General appearance: Present: severe distress, other (Intubated on mechanical ventilation) HEART Score - HEART Score Troponin: Troponin T 0.224 ng/mL (0.00-0.029) H* 04/06/20 14:30 Results - Labs CBC & Chem 7: 04/11/20 07:39 04/11/20 07:39 Labs: Laboratory Last Values WBC 26.9 K/mm3 (4.5-11.0) H 04/11/20 07:39 RBC 3.32 M/mm3 (3.65-5.03) L 04/11/20 07:39 Hgb 9.4 gm/dl (10.1-14.3) L 04/11/20 07:39 Hct 29.5 % (30.3-42.9) L 04/11/20 07:39 MCV 89 fl (79-97) 04/11/20 07:39 MCH 28 pg (28-32) 04/11/20 07:39 MCHC 32 % (30-34) 04/11/20 07:39 RDW 17.2 % (13.2-15.2) H 04/11/20 07:39 Plt Count 339 K/mm3 (140-440) 04/11/20 07:39 Add Manual Diff Complete 04/10/20 08:18 Total Counted 100 04/10/20 08:18 Seg Neuts % (Manual) 87.0 % (40.0-70.0) H 04/10/20 08:18 Band Neutrophils % 0 % 04/10/20 08:18 Lymphocytes % (Manual) 9.0 % (13.4-35.0) L 04/10/20 08:18 Reactive Lymphs % (Man) 0 % 04/10/20 08:18 Monocytes % (Manual) 1.0 % (0.0-7.3) 04/10/20 08:18 Eosinophils % (Manual) 0 % (0.0-4.3) 04/10/20 08:18 Basophils % (Manual) 2.0 % (0.0-1.8) H 04/10/20 08:18 Metamyelocytes % 0 % 04/10/20 08:18 Myelocytes % 1.0 % 04/10/20 08:18 Promyelocytes % 0 % 04/10/20 08:18 Blast Cells % 0 % 04/10/20 08:18 Nucleated RBC % Not Reportable 04/10/20 08:18 Seg Neutrophils # Man 25.1 K/mm3 (1.8-7.7) H 04/10/20 08:18 Band Neutrophils # 0.0 K/mm3 04/10/20 08:18 Lymphocytes # (Manual) 2.6 K/mm3 (1.2-5.4) 04/10/20 08:18 Abs React Lymphs (Man) 0.0 K/mm3 04/10/20 08:18 Monocytes # (Manual) 0.3 K/mm3 (0.0-0.8) 04/10/20 08:18 Eosinophils # (Manual) 0.0 K/mm3 (0.0-0.4) 04/10/20 08:18 Basophils # (Manual) 0.6 K/mm3 (0.0-0.1) H 04/10/20 08:18 Metamyelocytes # 0.0 K/mm3 04/10/20 08:18 Myelocytes # 0.3 K/mm3 04/10/20 08:18 Promyelocytes # 0.0 K/mm3 04/10/20 08:18 Blast Cells # 0.0 K/mm3 04/10/20 08:18 WBC Morphology Not Reportable 04/10/20 08:18 Hypersegmented Neuts Not Reportable 04/10/20 08:18 Hyposegmented Neuts Not Reportable 04/10/20 08:18 Hypogranular Neuts Not Reportable 04/10/20 08:18 Smudge Cells Not Reportable 04/10/20 08:18 Toxic Granulation Not Reportable 04/10/20 08:18 Toxic Vacuolation Not Reportable 04/10/20 08:18 Dohle Bodies Not Reportable 04/10/20 08:18 Pelger-Huet Anomaly Not Reportable 04/10/20 08:18 Stephanie Rods Not Reportable 04/10/20 08:18 Platelet Estimate Consistent w auto 04/10/20 08:18 Clumped Platelets Not Reportable 04/10/20 08:18 Plt Clumps, EDTA Not Reportable 04/10/20 08:18 Large Platelets Not Reportable 04/10/20 08:18 Giant Platelets Not Reportable 04/10/20 08:18 Platelet Satelliting Not Reportable 04/10/20 08:18 Plt Morphology Comment Not Reportable 04/10/20 08:18 RBC Morphology Not Reportable 04/10/20 08:18 Dimorphic RBCs Not Reportable 04/10/20 08:18 Polychromasia Few 04/10/20 08:18 Hypochromasia Not Reportable 04/10/20 08:18 Poikilocytosis 1+ 04/10/20 08:18 Anisocytosis Not Reportable 04/10/20 08:18 Microcytosis Not Reportable 04/10/20 08:18 Macrocytosis Not Reportable 04/10/20 08:18 Spherocytes 1+ 04/10/20 08:18 Pappenheimer Bodies Not Reportable 04/10/20 08:18 Sickle Cells Not Reportable 04/10/20 08:18 Target Cells Not Reportable 04/10/20 08:18 Tear Drop Cells Few 04/10/20 08:18 Ovalocytes Not Reportable 04/10/20 08:18 Helmet Cells Not Reportable 04/10/20 08:18 [place] Bodies Not Reportable 04/10/20 08:18 [place] Rings Not Reportable 04/10/20 08:18 Michael Cells Not Reportable 04/10/20 08:18 Bite Cells Not Reportable 04/10/20 08:18 Crenated Cell Not Reportable 04/10/20 08:18 Elliptocytes Not Reportable 04/10/20 08:18 Acanthocytes (Spur) Not Reportable 04/10/20 08:18 Rouleaux Not Reportable 04/10/20 08:18 Hemoglobin C Crystals Not Reportable 04/10/20 08:18 Schistocytes Not Reportable 04/10/20 08:18 Malaria parasites Not Reportable 04/10/20 08:18 Lc Bodies Not Reportable 04/10/20 08:18 Hem Pathologist Commnt No 04/10/20 08:18 PT 13.8 Sec. (12.2-14.9) 04/06/20 14:30 INR 1.04 (0.87-1.13) 04/06/20 14:30 APTT 28.1 Sec. (24.2-36.6) 04/06/20 14:30 D-Dimer 1063.66 ng/mlDDU (0-234) H 04/07/20 09:34 ABG pH 7.313 pH Units (7.350-7.450) L 04/11/20 03:44 POC ABG pCO2 48.2 mmHg (32.0-48.0) H 04/10/20 03:15 ABG pCO2 54.0 mm Hg 04/11/20 03:44 POC ABG pO2 88.5 mmHg (83-108) 04/10/20 03:15 ABG pO2 73.4 mm Hg (80.0-90.0) L 04/11/20 03:44 POC ABG HCO3 25.6 04/10/20 03:15 ABG HCO3 26.7 mmol/L (20.0-26.0) H 04/11/20 03:44 ABG O2 Saturation 95.0 % (95.0-99.0) 04/11/20 03:44 ABG O2 Content 14.4 (0.0-44) 04/11/20 03:44 POC ABG Base Excess -0.4 04/10/20 03:15 ABG Base Excess -0.1 mmol/L (-2.0-3.0) 04/11/20 03:44 ABG Hemoglobin 11.0 gm/dl (12.0-16.0) L 04/11/20 03:44 ABG Carboxyhemoglobin 1.6 % (0.0-5.0) 04/11/20 03:44 ABG Methemoglobin 0.7 % (0.0-1.5) 04/11/20 03:44 ABG Sodium 135.4 mmol/L (136.0-145.0) L 04/10/20 03:15 ABG Potassium 3.6 mmol/L (3.40-4.50) 04/10/20 03:15 ABG Chloride 101.0 mmol/L (98-107) 04/10/20 03:15 ABG Glucose 215 mg/dL (65-95) H 04/10/20 03:15 Oxyhemoglobin 92.8 % (95.0-99.0) L 04/11/20 03:44 FiO2 30 % 04/11/20 03:44 Sodium 138 mmol/L (137-145) 04/11/20 07:39 Potassium 3.9 mmol/L (3.6-5.0) 04/11/20 07:39 Chloride 100.3 mmol/L (98-107) 04/11/20 07:39 Carbon Dioxide 26 mmol/L (22-30) 04/11/20 07:39 Anion Gap 16 mmol/L 04/11/20 07:39 BUN 48 mg/dL (7-17) H 04/11/20 07:39 Creatinine 6.1 mg/dL (0.6-1.2) H 04/11/20 07:39 Estimated GFR 7 ml/min 04/11/20 07:39 BUN/Creatinine Ratio 8 % 04/11/20 07:39 Glucose 122 mg/dL (65-100) H 04/11/20 07:39 POC Glucose 164 mg/dL (70-105) H 04/11/20 05:28 Lactic Acid 1.00 mmol/L (0.7-2.0) 04/06/20 23:09 Calcium 8.3 mg/dL (8.4-10.2) L 04/11/20 07:39 Magnesium 2.50 mg/dL (1.7-2.3) H 04/06/20 14:30 Ferritin 743.0 ng/mL (10.0-200.0) H 04/07/20 09:34 Total Bilirubin 0.30 mg/dL (0.1-1.2) 04/06/20 14:30 AST 39 units/L (5-40) 04/06/20 14:30 ALT 21 units/L (7-56) 04/06/20 14:30 Alkaline Phosphatase 738 units/L (35-129) H 04/06/20 14:30 Ammonia 43.0 umol/L (25-60) 04/06/20 14:30 Lactate Dehydrogenase 195 units/L (91-180) H 04/07/20 09:34 Total Creatine Kinase 23 units/L (30-135) L 04/06/20 14:30 Total Creatine Kinase 24 units/L (30-135) L 04/06/20 14:30 Troponin T 0.224 ng/mL (0.00-0.029) H* 04/06/20 14:30 C-Reactive Protein 7.50 mg/dL (0.00-1.30) H 04/07/20 09:34 Total Protein 8.1 g/dL (6.3-8.2) 04/06/20 14:30 Albumin 3.1 g/dL (3.9-5) L 04/06/20 14:30 Albumin/Globulin Ratio 0.6 % 04/06/20 14:30 Triglycerides 342 mg/dL (2-149) H 04/06/20 14:30 Cholesterol 223 mg/dL (50-199) H 04/06/20 14:30 LDL Cholesterol Direct 123 mg/dL (50-130) 04/06/20 14:30 HDL Cholesterol 35 mg/dL (40-59) L 04/06/20 14:30 Cholesterol/HDL Ratio 6.37 % 04/06/20 14:30 TSH 1.320 mlU/mL (0.270-4.200) 04/06/20 14:30 HCG, Qual Negative (Negative) 04/06/20 14:30 Arterial Blood Glucose 215 mg/dL (65-95) H 04/10/20 03:15 Arterial Blood Ionized Calcium 4.5 mg/dL (4.6-5.3) L 04/10/20 03:15 Urine Color Yellow (Yellow) 04/06/20 13:34 Urine Turbidity Turbid (Clear) 04/06/20 13:34 Urine pH 7.0 (5.0-7.0) 04/06/20 13:34 Ur Specific [place] 1.017 (1.003-1.030) 04/06/20 13:34 Urine Protein 100 mg/dl mg/dL (Negative) 04/06/20 13:34 Urine Glucose (UA) 50 mg/dL (Negative) 04/06/20 13:34 Urine Ketones Tr mg/dL (Negative) 04/06/20 13:34 Urine Blood Sm (Negative) 04/06/20 13:34 Urine Nitrite Neg (Negative) 04/06/20 13:34 Urine Bilirubin Neg (Negative) 04/06/20 13:34 Urine Urobilinogen < 2.0 mg/dL (<2.0) 04/06/20 13:34 Ur Leukocyte Esterase Mod (Negative) 04/06/20 13:34 Urine WBC (Auto) > 182.0 /HPF (0.0-6.0) H 04/06/20 13:34 Urine RBC (Auto) 49.0 /HPF (0.0-6.0) 04/06/20 13:34 U Epithel Cells (Auto) 6.0 /HPF (0-13.0) 04/06/20 13:34 Urine Bacteria (Auto) 2+ /HPF (Negative) 04/06/20 13:34 Urine WBC Clumps 3+ /HPF 04/06/20 13:34 Urine Mucus 3+ /HPF 04/06/20 13:34 Salicylates < 0.3 mg/dL (2.8-20.0) L 04/06/20 14:30 Acetaminophen 5.0 ug/mL (10.0-30.0) L 04/06/20 14:30 Plasma/Serum Alcohol < 0.01 % (0-0.07) 04/06/20 14:30 Coronavirus (PCR) Negative (Negative) 04/07/20 Unknown Hepatitis A IgM Ab Non-reactive (NonReactive) 04/07/20 16:38 Hep Bs Antigen Non-reactive (Negative) 04/07/20 16:38 Hep B Core IgM Ab Non-reactive (NonReactive) 04/07/20 16:38 Hepatitis C Antibody Reactive (NonReactive) A 04/07/20 16:38 Blood Type O POSITIVE 04/06/20 14:30 Antibody Screen Negative 04/06/20 14:30 Microbiology: Microbiology 04/06/20 14:30 Peripheral/Venous Blood Culture - Preliminary NO GROWTH AFTER 4 DAYS 04/06/20 14:30 Peripheral/Venous Blood Culture - Preliminary Coag Negative Staphylococcus 04/07/20 10:20 Tracheal Aspirate Sputum Culture - Final Bains/IV: Voiding Method Indwelling Catheter IV Catheter Type [Left INT / Saline Lock Antecubital] IV Catheter Type [Right INT / Saline Lock Forearm] Active Medications - Current Medications Current Medications: Generic Name Dose Route Start Last Admin Trade Name Freq PRN Reason Stop Dose Admin Acetaminophen 650 mg 04/06/20 16:39 Tylenol PO Q6H PRN Pain, Mild (1-3) Lipase/Protease/Amylase 1 each 04/07/20 10:23 Pancreshadi Reyes 10,500 Unit FEEDTUBE PRN PRN For Clogged Feeding Tube Carvedilol 6.25 mg 04/09/20 22:00 04/10/20 21:16 Coreg PO 6.25 mg BID NOEL Administration Dextrose 50 ml 04/09/20 16:30 D50w (25gm) Syringe IV Q30MIN PRN Hypoglycemia Protocol Famotidine 20 mg 04/07/20 10:00 04/10/20 10:13 Pepcid PO 20 mg QDAY NOEL Administration Fentanyl 50 mcg 04/06/20 13:34 Sublimaze IV Q10MIN PRN ANALGESIA Heparin Sodium (Porcine) 5,000 unit 04/06/20 22:00 04/10/20 21:16 Heparin SUB-Q 5,000 unit Q12HR NOEL Administration Hydromorphone HCl 0.25 mg 04/06/20 16:39 Dilaudid IV Q4H PRN Pain, Moderate (4-6) Hydrophilic Ointment 1 applic 04/06/20 13:34 Vaseline Lip Therapy TP Q2HR PRN Dry Lips Fentanyl Citrate 2,000 mcg in 100 mls @ 5.505 mls/hr 04/06/20 14:00 04/11/20 08:00 Fentanyl Drip Premix IV 0 mcg/kg/hr TITR NOEL 0 mls/hr Titration Protocol 1 MCG/KG/HR Nicardipine/Sodium Chloride 40 mg in 200 mls @ 25 mls/hr 04/06/20 17:00 04/06/20 23:23 Cardene Drip 40 Mg/200 Ml IV Infused TITR NOEL Titration Protocol 5 MG/HR Sodium Chloride 250 mls @ 10 mls/hr 04/07/20 10:03 04/09/20 05:38 Nacl 0.9% 250ml IV 10 mls/hr DIRECT PRN Administration FOR ABX Sodium Chloride 100 mls @ 999 mls/hr 04/07/20 17:00 Nacl 0.9% IV SPRING PRN Hypotension MEROPENEM/NS 1 GRAM/100 ML 1 gram in 100 mls @ 100 mls/hr 04/10/20 18:00 04/10/20 17:11 Merrem/Ns 1 Gram/100 Ml IV 100 mls/hr QPM NOEL Administration Protocol Insulin Glargine 10 units 04/09/20 17:00 04/10/20 17:11 Lantus SUB-Q 10 units Q24H NOEL Administration Insulin Human Regular 0 unit 04/09/20 18:00 04/11/20 05:23 Humulin R SUB-Q 1 unit Q6H NOEL Administration Protocol Labetalol HCl 10 mg 04/08/20 17:17 04/09/20 16:03 Labetalol IV 10 mg Q4H PRN Administration Blood Pressure Losartan Potassium 50 mg 04/09/20 18:00 04/10/20 10:14 Cozaar PO 50 mg QDAY NOEL Administration Multi-Ingred Cream/Lotion/Oil/Oint 1 applic 04/06/20 13:34 Artificial Tears Ophth Oint OU Q4HR PRN Dry Eye(s) Simple Syrup 15 ml 04/07/20 10:23 Simple Syrup FEEDTUBE PRN PRN Hypoglycemia Simple Syrup 30 ml 04/07/20 10:23 Simple Syrup FEEDTUBE PRN PRN Hypoglycemia Sodium Bicarbonate 325 mg 04/07/20 10:23 Sodium Bicarbonate FEEDTUBE PRN PRN For Clogged Feeding Tube Sodium Chloride 10 ml 04/06/20 22:00 04/10/20 21:17 Sodium Chloride Flush Syringe 10 Ml IV 10 ml BID NOEL Administration Sodium Chloride 10 ml 04/06/20 16:32 Sodium Chloride Flush Syringe 10 Ml IV PRN PRN LINE FLUSH Nutrition/Malnutrition Assess - Dietary Evaluation Nutrition/Malnutrition Findings: Nutrition Notes Start: 04/07/20 08:19 Freq: Status: Active Protocol: Document 04/07/20 10:09 AL (Rec: 04/07/20 10:26 AL [id number]) Co-Sign 04/07/20 10:09 MK Nutrition Notes Need for Assessment 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 Tyson score = 11. Will order TF. Percent of energy/protein needs met: 0%/0% Burn Absent Trauma Absent GI Symptoms None Current % PO Negligible Minimum of two criteria No physical signs of malnutrition #1 Nutrition Diagnosis Inadequate oral intake Etiology respiratory failure As Evidenced by Signs and Symptoms patient is on mechanical vent and is unable to eat orally Is patient on ventilator? Yes Is Patient Ambulatory and/or Out of Bed No REE-([facility]-confined to bed) 2063.820 Kcal/Kg value to use for calculation 16 Approximate Energy Requirements Using 1762 kcal/Kg Calculation Used for Recommendations Kcal/kg Additional Notes Protein Needs: up to 142 g (up to 2.5 g/kg IBW) Fluid Needs: 1 mL/kcal Nutrition Intervention Change Diet Order: TF Nutrition Support: Nepro 1.8 at 45 mL/hr (goal rate) Flush 200 mL q4h Kcal 1,944 Protein (gm) 87 Fluid (mL) 785 Goal #1 Initiate TF Goal #2 Meet estimated energy and protein needs as best as possible via TF Anticipated Discharge Needs: Unable to determine at this time Follow-Up By: 04/11/20 Additional Comments F/U for TF tolerance
[2020-04-11 11:41] LABS: Basophils % (Manual) 0 % (0.0-1.8); Myelocytes # (Manual) 0.3 K/mm3; Total Cells Counted 100
[2020-04-11 11:42] LABS: Anisocytosis 1+
[2020-04-11 11:43] LABS: Macrocytosis 1+
[2020-04-11 11:45] LABS: Burr Cells Few
[2020-04-11 11:46] LABS: Platelet Estimate Consistent w Auto
[2020-04-11] MEDS: carvediloL 6.25 MG TAB PO SCH ×2 (12:50→21:07)
[2020-04-11] MEDS: FAMOTIDINE 20 MG TAB PO SCH (12:50)
[2020-04-11] MEDS: HEPARIN 5,000 UNIT/1 ML VIAL SUB-Q SCH ×2 (12:50→21:07)
[2020-04-11] MEDS: LOSARTAN 50 MG TAB PO SCH (12:51)
--- NOTE | 2020-04-11 13:15 | Progress Note ---
Assessment and Plan Cultures: Blood culture 04/06/2020: 1 out of 4 bottles coag negative staph Urine culture 04/06/2020 <10,000 mixed bacteria Respiratory culture 04/06/2020 poor specimen SARS-CoV-2 PCR negative 04/07/2020 tracheal aspirate culture: Usual respiratory sarah Assessment: 49 years old female with history of asthma, hypertension, end-stage renal disease on hemodialysis, diabetes mellitus, bipolar disorder, morbid obesity, CVA, bilateral BKA's recent COVID-19 infection requiring intubation treated with dexamethasone in December 2019 [facility], resident of a skilled nursing, admitted on 04/06/2020 secondary to be found unresponsiveness after hemodialysis: #Severe sepsis: Present on admission with hypothermia, leukocytosis, altered mental status, likely due to bilateral pneumonia, bacteremia and UTI. #Bilateral pneumonia: Aspiration pneumonia/HAP. Of note, patient was recently admitted at [facility] in January 2020 requiring intubation for COVID-19 pneumonia. COVID-19 pneumonia was treated with dexamethasone. #Coag negative staph bacteremia: 1/4 bottles, consistent with contaminant. #UTI: Bains catheter with purulent urine. #Acute hypoxemic respiratory failure: Intubated for airway protection, O2 sats down to 87%. Patient with recent COVID-19 pneumonia, intubated at [facility] in January 2020. #End-stage renal disease on hemodialysis: renally dose abx. #Extensive Candidal intertrigo in groin and vagina #Vancomycin allergy ? Causing hives. I reviewed records from [facility] and there is no documentation of vancomycin allergy, patient initially received vancomycin #Leucocytosis: Patient has chronic leukocytosis, labs from [facility] and [facility] in the past were reviewed. Recs: continue IV meropenem, D2, plan to stop after tomorrow's doses Patient has chronic leukocytosis, labs from [facility] and [facility] in the past were reviewed. Lloyd Beltran MD, FACP [facility], [facility] O: [phone] F: [phone] Subjective Date of service: 04/11/20 Principal diagnosis: Ac on ch hypoxemic and hypercapnic resp failure; PUI COVID- 19 infxn; AMS Interval history: No fever. Remains intubated, on the vent. Objective - Exam Narrative Exam: Physical Exam: Constitutional: awake, intubated, on the vent Head, Ears, Nose: Normocephalic, atraumatic. External ears, nose normal Eyes: Conjunctivae/corneas clear. No icterus. No ptosis. Neck: intubated Oral: intubated Cardiovascular: S1, S2 + Respiratory: AE fair bilaterally and equal GI: Soft, bowel sounds + Musculoskeletal: Bilateral BKA. Right chest PermCath Skin: No rash or abscess Hem/Lymphatic: No palpable cervical or supraclavicular nodes. No lymphangitis Psych: no agitation Neurological: awake, intubated, on the vent, exam limited - Constitutional Vitals: Vital Signs Temp Pulse Resp BP Pulse Ox 98.0 F 104 H 14 139/56 99 04/11/20 12:00 04/11/20 13:00 04/11/20 13:00 04/11/20 13:00 04/11/20 13:00 Temperature -Last 24 Hours Temperature 98.0 F Temperature 98.8 F Temperature 98.4 F Temperature 99.1 F Temperature 99.1 F Temperature 98.2 F - Labs CBC & Chem 7: 04/11/20 07:39 04/11/20 07:39 Labs: Abnormal lab results 04/10/20 04/10/20 04/10/20 Range/Units 17:27 18:08 23:29 WBC (4.5-11.0) K/mm3 RBC (3.65-5.03) M/mm3 Hgb (10.1-14.3) gm/dl Hct (30.3-42.9) % RDW (13.2-15.2) % Seg Neuts % (Manual) (40.0-70.0) % Lymphocytes % (Manual) (13.4-35.0) % Seg Neutrophils # Man (1.8-7.7) K/mm3 Monocytes # (Manual) (0.0-0.8) K/mm3 Eosinophils # (Manual) (0.0-0.4) K/mm3 ABG pH (7.350-7.450) pH Units ABG pO2 (80.0-90.0) mm Hg ABG HCO3 (20.0-26.0) mmol/L ABG Hemoglobin (12.0-16.0) gm/dl Oxyhemoglobin (95.0-99.0) % BUN (7-17) mg/dL Creatinine (0.6-1.2) mg/dL Glucose (65-100) mg/dL POC Glucose 218 H 223 H 166 H (70-105) mg/dL Calcium (8.4-10.2) mg/dL 04/11/20 04/11/20 04/11/20 Range/Units 03:44 05:28 07:39 WBC 26.9 H (4.5-11.0) K/mm3 RBC 3.32 L (3.65-5.03) M/mm3 Hgb 9.4 L (10.1-14.3) gm/dl Hct 29.5 L (30.3-42.9) % RDW 17.2 H (13.2-15.2) % Seg Neuts % (Manual) 83.0 H (40.0-70.0) % Lymphocytes % (Manual) 10.0 L (13.4-35.0) % Seg Neutrophils # Man 22.3 H (1.8-7.7) K/mm3 Monocytes # (Manual) 1.1 H (0.0-0.8) K/mm3 Eosinophils # (Manual) 0.5 H (0.0-0.4) K/mm3 ABG pH 7.313 L (7.350-7.450) pH Units ABG pO2 73.4 L (80.0-90.0) mm Hg ABG HCO3 26.7 H (20.0-26.0) mmol/L ABG Hemoglobin 11.0 L (12.0-16.0) gm/dl Oxyhemoglobin 92.8 L (95.0-99.0) % BUN (7-17) mg/dL Creatinine (0.6-1.2) mg/dL Glucose (65-100) mg/dL POC Glucose 164 H (70-105) mg/dL Calcium (8.4-10.2) mg/dL 04/11/20 04/11/20 Range/Units 07:39 12:25 WBC (4.5-11.0) K/mm3 RBC (3.65-5.03) M/mm3 Hgb (10.1-14.3) gm/dl Hct (30.3-42.9) % RDW (13.2-15.2) % Seg Neuts % (Manual) (40.0-70.0) % Lymphocytes % (Manual) (13.4-35.0) % Seg Neutrophils # Man (1.8-7.7) K/mm3 Monocytes # (Manual) (0.0-0.8) K/mm3 Eosinophils # (Manual) (0.0-0.4) K/mm3 ABG pH (7.350-7.450) pH Units ABG pO2 (80.0-90.0) mm Hg ABG HCO3 (20.0-26.0) mmol/L ABG Hemoglobin (12.0-16.0) gm/dl Oxyhemoglobin (95.0-99.0) % BUN 48 H (7-17) mg/dL Creatinine 6.1 H (0.6-1.2) mg/dL Glucose 122 H (65-100) mg/dL POC Glucose 175 H (70-105) mg/dL Calcium 8.3 L (8.4-10.2) mg/dL
--- NOTE | 2020-04-11 14:16 | Progress Note ---
Assessment and Plan Acute on chronic hypoxemic and hypercapnic respiratory failure. Coronavirus-19 infection. Acute encephalopathy. Bibasilar atelectasis. End-stage renal disease, on dialysis. Morbid obesity. History of a cerebrovascular accident. Diabetes type 2. History of chronic obstructive pulmonary disease. History of anemia. - neurology consult placed - EEG ordered - resume SBT now (failed trial earlier) - continue care as below otherwise; - continue home Losartan & Carvedilol - continue prn IV Labetalol - bilateral lower extremity dopplers negative - keep set rate at 12/min - continue Daily SAT and SBT assessment as tolerated - continue to wean supplemental oxygen for target O2 sat's > 90% acutely - VAP bundle addressed - continue lung protective strategies - continue bronchodilators with pulmonary hygiene per RT - wean per pulmonary driven protocols otherwise - continue accuchecks with glycemic control per SSI (While critically ill target blood glucose of 140-180 mg/dL; avoid hypoglycemia) - continue fentanyl for sedation / analgesia - sedation prn for target RASS 0 to -1 - avoid nephrotoxins, renally dose all medications - continue to avoid benzodiazepine's, reduce the possibility of delirium - complete AB's per ID rec's - prn analgesia per CPOT score - Maintenance of sleep-wake cycle, avoid delirium - continue enteral nutritional support at goal rate as tolerated - G.I. & VTE prophylaxis - PT/OT/ROM exercises - continue mobility protocols for pressure ulcer prophylaxis - Monitor hemodynamics closely - continue other care per attending / other consultants - discharge planning ongoing concurrently .... Re-evaluate in am & prn CONDITION: CRITICAL PROGNOSIS: GUARDED CODE STATUS: FULL CODE The high probability of a clinically significant, sudden or life-threatening deterioration of the [respiratory, cardiovascular, renal & neurologic] system(s) required my full and direct attention, intervention and personal management. The aggregate critical care time was [33] minutes without overlap. Time includes spent on; [x] Data Review and interpretation [x] Patient assessment and monitoring of vital signs [x] Documentation [x] Medication orders and management Subjective Date of service: 04/11/20 Principal diagnosis: Ac on ch hypoxemic and hypercapnic resp failure; PUI COVID- 19 infxn; AMS Interval history: Patient is seen today for: Acute on chronic hypoxemic and hypercapnic resp failure; PUI Coronavirus-19 infection; Acute encephalopathy; ESRD; Morbid obesity; DM II; AE-COPD Seen and examined at bedside; 24hour events reviewed; nursing and respiratory care staff consulted; no adverse overnight events reported to me; resting peacefully in bed; remains on MVS; alert and responsive today; denies any pain issues; no N/V/F/C Objective Vital Signs - 12hr 04/11/20 04/11/20 04/11/20 02:16 02:30 02:46 Temperature Pulse Rate 99 H 92 H 80 Pulse Rate [ From Monitor] Respiratory 12 14 11 L Rate Blood Pressure 150/79 150/79 150/79 O2 Sat by Pulse 99 100 94 Oximetry O2 Sat by Pulse Oximetry [ Anterior Bilateral Throughout] 04/11/20 04/11/20 04/11/20 03:00 03:16 03:30 Temperature Pulse Rate 79 78 81 Pulse Rate [ From Monitor] Respiratory 12 12 12 Rate Blood Pressure 150/79 112/48 112/48 O2 Sat by Pulse 93 95 97 Oximetry O2 Sat by Pulse Oximetry [ Anterior Bilateral Throughout] 04/11/20 04/11/20 04/11/20 03:34 03:46 04:00 Temperature 99.1 F Pulse Rate 80 77 Pulse Rate [ 78 From Monitor] Respiratory 11 L 12 Rate Blood Pressure 112/48 112/36 O2 Sat by Pulse 96 97 Oximetry O2 Sat by Pulse Oximetry [ Anterior Bilateral Throughout] 04/11/20 04/11/20 04/11/20 04:13 04:16 04:30 Temperature Pulse Rate 91 H 79 80 Pulse Rate [ From Monitor] Respiratory 12 12 Rate Blood Pressure 112/36 112/36 112/36 O2 Sat by Pulse 99 96 97 Oximetry O2 Sat by Pulse Oximetry [ Anterior Bilateral Throughout] 04/11/20 04/11/20 04/11/20 04:46 05:00 05:16 Temperature Pulse Rate 76 77 70 Pulse Rate [ From Monitor] Respiratory 12 12 13 Rate Blood Pressure 112/36 96/39 96/39 O2 Sat by Pulse 98 97 98 Oximetry O2 Sat by Pulse Oximetry [ Anterior Bilateral Throughout] 04/11/20 04/11/20 04/11/20 05:30 05:46 06:00 Temperature Pulse Rate 72 72 74 Pulse Rate [ From Monitor] Respiratory 12 12 11 L Rate Blood Pressure 96/39 96/39 91/33 O2 Sat by Pulse 96 96 97 Oximetry O2 Sat by Pulse Oximetry [ Anterior Bilateral Throughout] 04/11/20 04/11/20 04/11/20 06:16 06:30 06:46 Temperature Pulse Rate 72 74 73 Pulse Rate [ From Monitor] Respiratory 12 12 12 Rate Blood Pressure 91/33 91/33 91/33 O2 Sat by Pulse 97 97 98 Oximetry O2 Sat by Pulse Oximetry [ Anterior Bilateral Throughout] 04/11/20 04/11/20 04/11/20 07:00 07:16 07:30 Temperature Pulse Rate 71 73 71 Pulse Rate [ From Monitor] Respiratory 12 12 12 Rate Blood Pressure 97/37 97/37 97/37 O2 Sat by Pulse 97 98 97 Oximetry O2 Sat by Pulse Oximetry [ Anterior Bilateral Throughout] 04/11/20 04/11/20 04/11/20 07:46 07:51 08:00 Temperature 98.4 F Pulse Rate 72 74 79 Pulse Rate [ From Monitor] Respiratory 12 12 Rate Blood Pressure 97/37 91/33 129/46 O2 Sat by Pulse 98 97 100 Oximetry O2 Sat by Pulse Oximetry [ Anterior Bilateral Throughout] 04/11/20 04/11/20 04/11/20 08:16 08:30 08:40 Temperature 98.8 F Pulse Rate 76 93 H 76 Pulse Rate [ From Monitor] Respiratory 12 12 24 Rate Blood Pressure 129/46 129/46 129/46 O2 Sat by Pulse 99 100 Oximetry O2 Sat by Pulse 99 Oximetry [ Anterior Bilateral Throughout] 04/11/20 04/11/20 04/11/20 08:45 08:46 09:00 Temperature Pulse Rate 100 H 95 H 99 H Pulse Rate [ From Monitor] Respiratory 11 L 20 Rate Blood Pressure 142/118 129/46 190/85 O2 Sat by Pulse 100 99 Oximetry O2 Sat by Pulse Oximetry [ Anterior Bilateral Throughout] 04/11/20 04/11/20 04/11/20 09:15 09:30 09:45 Temperature Pulse Rate 97 H 93 H 92 H Pulse Rate [ From Monitor] Respiratory 17 14 Rate Blood Pressure 185/75 179/67 179/67 O2 Sat by Pulse 99 99 Oximetry O2 Sat by Pulse Oximetry [ Anterior Bilateral Throughout] 04/11/20 04/11/20 04/11/20 09:46 10:00 10:15 Temperature Pulse Rate 94 H 83 88 Pulse Rate [ From Monitor] Respiratory 13 14 Rate Blood Pressure 147/63 117/48 117/48 O2 Sat by Pulse 99 99 Oximetry O2 Sat by Pulse Oximetry [ Anterior Bilateral Throughout] 04/11/20 04/11/20 04/11/20 10:16 10:30 10:45 Temperature Pulse Rate 83 95 H 103 H Pulse Rate [ From Monitor] Respiratory 12 16 22 Rate Blood Pressure 122/44 146/65 164/70 O2 Sat by Pulse 99 99 97 Oximetry O2 Sat by Pulse Oximetry [ Anterior Bilateral Throughout] 04/11/20 04/11/20 04/11/20 11:00 11:15 11:30 Temperature Pulse Rate 103 H 103 H 102 H Pulse Rate [ From Monitor] Respiratory 20 19 20 Rate Blood Pressure 175/70 175/70 130/67 O2 Sat by Pulse 97 96 98 Oximetry O2 Sat by Pulse Oximetry [ Anterior Bilateral Throughout] 04/11/20 04/11/20 04/11/20 11:37 11:45 12:00 Temperature 98.0 F Pulse Rate 104 H 99 H 101 H Pulse Rate [ From Monitor] Respiratory 16 17 Rate Blood Pressure 159/81 155/68 161/47 O2 Sat by Pulse 96 99 98 Oximetry O2 Sat by Pulse Oximetry [ Anterior Bilateral Throughout] 04/11/20 04/11/20 04/11/20 12:15 12:16 12:30 Temperature Pulse Rate 104 H 100 H 102 H Pulse Rate [ From Monitor] Respiratory 16 16 Rate Blood Pressure 161/47 124/43 143/57 O2 Sat by Pulse 99 98 Oximetry O2 Sat by Pulse Oximetry [ Anterior Bilateral Throughout] 04/11/20 04/11/20 04/11/20 12:45 12:50 12:51 Temperature Pulse Rate 102 H 104 H 105 H Pulse Rate [ From Monitor] Respiratory 14 Rate Blood Pressure 139/56 139/56 139/56 O2 Sat by Pulse 98 Oximetry O2 Sat by Pulse Oximetry [ Anterior Bilateral Throughout] 04/11/20 04/11/20 12:55 13:00 Temperature Pulse Rate 82 104 H Pulse Rate [ From Monitor] Respiratory 24 14 Rate Blood Pressure 183/122 139/56 O2 Sat by Pulse 99 Oximetry O2 Sat by Pulse Oximetry [ Anterior Bilateral Throughout] Constitutional: appears uncomfortable, other (middle aged obese female with mild ventilator dys-synchrony) Eyes: non-icteric ENT: oropharynx moist, other (ETT 23 cm PARRISH) Neck: supple, no lymphadenopathy, no JVD Effort: mildly labored Ascultation: Bilateral: diminished breath sounds, rhonchi Percussion: Bilateral: not dull Cardiovascular: regular rate and rhythm Gastrointestinal: normoactive bowel sounds, soft, non-tender, non-distended (protuberant) Integumentary: erythema (right BKA stump) Extremities: no cyanosis, no edema, no ischemia or petechiae Neurologic: non-focal exam (grossly), pupils equal and round, unable to assess Psychiatric: other (unable to assess re: AMS) CBC and BMP: 04/11/20 07:39 04/11/20 07:39 ABG, PT/INR, D-dimer: ABG ABG pH 7.313 pH Units (7.350-7.450) L 04/11/20 03:44 POC ABG pCO2 48.2 mmHg (32.0-48.0) H 04/10/20 03:15 ABG pCO2 54.0 mm Hg 04/11/20 03:44 POC ABG pO2 88.5 mmHg (83-108) 04/10/20 03:15 ABG pO2 73.4 mm Hg (80.0-90.0) L 04/11/20 03:44 POC ABG HCO3 25.6 04/10/20 03:15 ABG O2 Saturation 95.0 % (95.0-99.0) 04/11/20 03:44 PT/INR, D-dimer PT 13.8 Sec. (12.2-14.9) 04/06/20 14:30 INR 1.04 (0.87-1.13) 04/06/20 14:30 D-Dimer 1063.66 ng/mlDDU (0-234) H 04/07/20 09:34 Abnormal lab findings: Abnormal Labs 04/06/20 04/06/20 04/06/20 13:34 14:30 14:30 WBC 19.2 H RBC Hgb Hct RDW 17.8 H Seg Neuts % (Manual) 90.0 H Lymphocytes % (Manual) 4.0 L Basophils % (Manual) Seg Neutrophils # Man 17.3 H Lymphocytes # (Manual) 0.8 L Monocytes # (Manual) Eosinophils # (Manual) Basophils # (Manual) D-Dimer ABG pH POC ABG pCO2 POC ABG pO2 ABG pO2 ABG HCO3 ABG Base Excess ABG Hemoglobin ABG Sodium ABG Chloride ABG Glucose Oxyhemoglobin Sodium Potassium 5.2 H Chloride Carbon Dioxide 17 L BUN 53 H Creatinine 7.8 H Glucose 144 H POC Glucose Calcium Magnesium Ferritin Alkaline Phosphatase 738 H Lactate Dehydrogenase Total Creatine Kinase 23 L Troponin T 0.224 H* C-Reactive Protein Albumin 3.1 L Triglycerides 342 H Cholesterol 223 H HDL Cholesterol 35 L Arterial Blood Glucose Arterial Blood Ionized Calcium Urine WBC (Auto) > 182.0 H Salicylates Acetaminophen Hepatitis C Antibody 04/06/20 04/06/20 04/06/20 14:30 14:30 14:30 WBC RBC Hgb Hct RDW Seg Neuts % (Manual) Lymphocytes % (Manual) Basophils % (Manual) Seg Neutrophils # Man Lymphocytes # (Manual) Monocytes # (Manual) Eosinophils # (Manual) Basophils # (Manual) D-Dimer ABG pH POC ABG pCO2 POC ABG pO2 ABG pO2 ABG HCO3 ABG Base Excess ABG Hemoglobin ABG Sodium ABG Chloride ABG Glucose Oxyhemoglobin Sodium Potassium Chloride Carbon Dioxide BUN Creatinine Glucose POC Glucose Calcium Magnesium 2.50 H Ferritin Alkaline Phosphatase Lactate Dehydrogenase Total Creatine Kinase 24 L Troponin T C-Reactive Protein Albumin Triglycerides Cholesterol HDL Cholesterol Arterial Blood Glucose Arterial Blood Ionized Calcium Urine WBC (Auto) Salicylates < 0.3 L Acetaminophen 5.0 L Hepatitis C Antibody 04/06/20 04/06/20 04/07/20 14:39 20:00 00:48 WBC RBC Hgb Hct RDW Seg Neuts % (Manual) Lymphocytes % (Manual) Basophils % (Manual) Seg Neutrophils # Man Lymphocytes # (Manual) Monocytes # (Manual) Eosinophils # (Manual) Basophils # (Manual) D-Dimer ABG pH 7.281 L 7.306 L POC ABG pCO2 POC ABG pO2 78.0 L ABG pO2 133.8 H ABG HCO3 18.3 L ABG Base Excess -7.8 L ABG Hemoglobin 10.8 L 10.8 L ABG Sodium ABG Chloride 108.0 H ABG Glucose Oxyhemoglobin Sodium Potassium Chloride Carbon Dioxide BUN Creatinine Glucose POC Glucose 69 L Calcium Magnesium Ferritin Alkaline Phosphatase Lactate Dehydrogenase Total Creatine Kinase Troponin T C-Reactive Protein Albumin Triglycerides Cholesterol HDL Cholesterol Arterial Blood Glucose Arterial Blood Ionized Calcium Urine WBC (Auto) Salicylates Acetaminophen Hepatitis C Antibody 11/13/20 11/13/20 11/13/20 09:34 09:34 09:34 WBC RBC Hgb Hct RDW Seg Neuts % (Manual) Lymphocytes % (Manual) Basophils % (Manual) Seg Neutrophils # Man Lymphocytes # (Manual) Monocytes # (Manual) Eosinophils # (Manual) Basophils # (Manual) D-Dimer 1063.66 H ABG pH POC ABG pCO2 POC ABG pO2 ABG pO2 ABG HCO3 ABG Base Excess ABG Hemoglobin ABG Sodium ABG Chloride ABG Glucose Oxyhemoglobin Sodium Potassium Chloride Carbon Dioxide BUN Creatinine Glucose POC Glucose Calcium Magnesium Ferritin 743.0 H Alkaline Phosphatase Lactate Dehydrogenase 195 H Total Creatine Kinase Troponin T C-Reactive Protein 7.50 H Albumin Triglycerides Cholesterol HDL Cholesterol Arterial Blood Glucose Arterial Blood Ionized Calcium Urine WBC (Auto) Salicylates Acetaminophen Hepatitis C Antibody 04/07/20 04/07/20 04/07/20 10:01 16:38 23:51 WBC RBC Hgb Hct RDW Seg Neuts % (Manual) Lymphocytes % (Manual) Basophils % (Manual) Seg Neutrophils # Man Lymphocytes # (Manual) Monocytes # (Manual) Eosinophils # (Manual) Basophils # (Manual) D-Dimer ABG pH POC ABG pCO2 POC ABG pO2 79.8 L ABG pO2 ABG HCO3 ABG Base Excess ABG Hemoglobin 10.3 L ABG Sodium ABG Chloride 109.0 H ABG Glucose Oxyhemoglobin Sodium Potassium Chloride Carbon Dioxide BUN Creatinine Glucose POC Glucose 117 H Calcium Magnesium Ferritin Alkaline Phosphatase Lactate Dehydrogenase Total Creatine Kinase Troponin T C-Reactive Protein Albumin Triglycerides Cholesterol HDL Cholesterol Arterial Blood Glucose Arterial Blood Ionized Calcium 4.5 L Urine WBC (Auto) Salicylates Acetaminophen Hepatitis C Antibody Reactive A 04/08/20 04/08/20 04/08/20 04:58 12:48 17:03 WBC RBC Hgb Hct RDW Seg Neuts % (Manual) Lymphocytes % (Manual) Basophils % (Manual) Seg Neutrophils # Man Lymphocytes # (Manual) Monocytes # (Manual) Eosinophils # (Manual) Basophils # (Manual) D-Dimer ABG pH POC ABG pCO2 POC ABG pO2 ABG pO2 ABG HCO3 ABG Base Excess ABG Hemoglobin ABG Sodium ABG Chloride ABG Glucose Oxyhemoglobin Sodium Potassium Chloride Carbon Dioxide BUN Creatinine Glucose POC Glucose 129 H 155 H 201 H Calcium Magnesium Ferritin Alkaline Phosphatase Lactate Dehydrogenase Total Creatine Kinase Troponin T C-Reactive Protein Albumin Triglycerides Cholesterol HDL Cholesterol Arterial Blood Glucose Arterial Blood Ionized Calcium Urine WBC (Auto) Salicylates Acetaminophen Hepatitis C Antibody 04/08/20 04/08/20 04/09/20 23:49 Unknown 05:31 WBC RBC Hgb Hct RDW Seg Neuts % (Manual) Lymphocytes % (Manual) Basophils % (Manual) Seg Neutrophils # Man Lymphocytes # (Manual) Monocytes # (Manual) Eosinophils # (Manual) Basophils # (Manual) D-Dimer ABG pH 7.349 L POC ABG pCO2 POC ABG pO2 ABG pO2 117.3 H ABG HCO3 ABG Base Excess ABG Hemoglobin 7.4 L ABG Sodium ABG Chloride ABG Glucose Oxyhemoglobin Sodium Potassium Chloride Carbon Dioxide BUN Creatinine Glucose POC Glucose 178 H 248 H Calcium Magnesium Ferritin Alkaline Phosphatase Lactate Dehydrogenase Total Creatine Kinase Troponin T C-Reactive Protein Albumin Triglycerides Cholesterol HDL Cholesterol Arterial Blood Glucose Arterial Blood Ionized Calcium Urine WBC (Auto) Salicylates Acetaminophen Hepatitis C Antibody 04/09/20 04/09/20 04/09/20 11:39 17:35 Unknown WBC RBC Hgb Hct RDW Seg Neuts % (Manual) Lymphocytes % (Manual) Basophils % (Manual) Seg Neutrophils # Man Lymphocytes # (Manual) Monocytes # (Manual) Eosinophils # (Manual) Basophils # (Manual) D-Dimer ABG pH POC ABG pCO2 51.6 H POC ABG pO2 ABG pO2 ABG HCO3 ABG Base Excess ABG Hemoglobin 11.4 L ABG Sodium 130.1 L ABG Chloride ABG Glucose 249 H Oxyhemoglobin Sodium Potassium Chloride Carbon Dioxide BUN Creatinine Glucose POC Glucose 319 H 254 H Calcium Magnesium Ferritin Alkaline Phosphatase Lactate Dehydrogenase Total Creatine Kinase Troponin T C-Reactive Protein Albumin Triglycerides Cholesterol HDL Cholesterol Arterial Blood Glucose 249 H Arterial Blood Ionized Calcium 4.1 L Urine WBC (Auto) Salicylates Acetaminophen Hepatitis C Antibody 04/10/20 04/10/20 04/10/20 00:00 03:15 05:49 WBC RBC Hgb Hct RDW Seg Neuts % (Manual) Lymphocytes % (Manual) Basophils % (Manual) Seg Neutrophils # Man Lymphocytes # (Manual) Monocytes # (Manual) Eosinophils # (Manual) Basophils # (Manual) D-Dimer ABG pH POC ABG pCO2 48.2 H POC ABG pO2 ABG pO2 ABG HCO3 ABG Base Excess ABG Hemoglobin 9.9 L ABG Sodium 135.4 L ABG Chloride ABG Glucose 215 H Oxyhemoglobin Sodium Potassium Chloride Carbon Dioxide BUN Creatinine Glucose POC Glucose 194 H 221 H Calcium Magnesium Ferritin Alkaline Phosphatase Lactate Dehydrogenase Total Creatine Kinase Troponin T C-Reactive Protein Albumin Triglycerides Cholesterol HDL Cholesterol Arterial Blood Glucose 215 H Arterial Blood Ionized Calcium 4.5 L Urine WBC (Auto) Salicylates Acetaminophen Hepatitis C Antibody 04/10/20 04/10/20 04/10/20 08:18 08:18 12:22 WBC 28.9 H RBC 3.38 L Hgb 9.5 L Hct 30.1 L RDW 16.9 H Seg Neuts % (Manual) 87.0 H Lymphocytes % (Manual) 9.0 L Basophils % (Manual) 2.0 H Seg Neutrophils # Man 25.1 H Lymphocytes # (Manual) Monocytes # (Manual) Eosinophils # (Manual) Basophils # (Manual) 0.6 H D-Dimer ABG pH POC ABG pCO2 POC ABG pO2 ABG pO2 ABG HCO3 ABG Base Excess ABG Hemoglobin ABG Sodium ABG Chloride ABG Glucose Oxyhemoglobin Sodium 134 L Potassium 3.5 L D Chloride 94.9 L Carbon Dioxide BUN 38 H Creatinine 5.5 H Glucose 230 H POC Glucose 218 H Calcium Magnesium Ferritin Alkaline Phosphatase Lactate Dehydrogenase Total Creatine Kinase Troponin T C-Reactive Protein Albumin Triglycerides Cholesterol HDL Cholesterol Arterial Blood Glucose Arterial Blood Ionized Calcium Urine WBC (Auto) Salicylates Acetaminophen Hepatitis C Antibody 04/10/20 04/10/20 04/10/20 17:27 18:08 23:29 WBC RBC Hgb Hct RDW Seg Neuts % (Manual) Lymphocytes % (Manual) Basophils % (Manual) Seg Neutrophils # Man Lymphocytes # (Manual) Monocytes # (Manual) Eosinophils # (Manual) Basophils # (Manual) D-Dimer ABG pH POC ABG pCO2 POC ABG pO2 ABG pO2 ABG HCO3 ABG Base Excess ABG Hemoglobin ABG Sodium ABG Chloride ABG Glucose Oxyhemoglobin Sodium Potassium Chloride Carbon Dioxide BUN Creatinine Glucose POC Glucose 218 H 223 H 166 H Calcium Magnesium Ferritin Alkaline Phosphatase Lactate Dehydrogenase Total Creatine Kinase Troponin T C-Reactive Protein Albumin Triglycerides Cholesterol HDL Cholesterol Arterial Blood Glucose Arterial Blood Ionized Calcium Urine WBC (Auto) Salicylates Acetaminophen Hepatitis C Antibody 04/11/20 04/11/20 04/11/20 03:44 05:28 07:39 WBC 26.9 H RBC 3.32 L Hgb 9.4 L Hct 29.5 L RDW 17.2 H Seg Neuts % (Manual) 83.0 H Lymphocytes % (Manual) 10.0 L Basophils % (Manual) Seg Neutrophils # Man 22.3 H Lymphocytes # (Manual) Monocytes # (Manual) 1.1 H Eosinophils # (Manual) 0.5 H Basophils # (Manual) D-Dimer ABG pH 7.313 L POC ABG pCO2 POC ABG pO2 ABG pO2 73.4 L ABG HCO3 26.7 H ABG Base Excess ABG Hemoglobin 11.0 L ABG Sodium ABG Chloride ABG Glucose Oxyhemoglobin 92.8 L Sodium Potassium Chloride Carbon Dioxide BUN Creatinine Glucose POC Glucose 164 H Calcium Magnesium Ferritin Alkaline Phosphatase Lactate Dehydrogenase Total Creatine Kinase Troponin T C-Reactive Protein Albumin Triglycerides Cholesterol HDL Cholesterol Arterial Blood Glucose Arterial Blood Ionized Calcium Urine WBC (Auto) Salicylates Acetaminophen Hepatitis C Antibody 04/11/20 04/11/20 07:39 12:25 WBC RBC Hgb Hct RDW Seg Neuts % (Manual) Lymphocytes % (Manual) Basophils % (Manual) Seg Neutrophils # Man Lymphocytes # (Manual) Monocytes # (Manual) Eosinophils # (Manual) Basophils # (Manual) D-Dimer ABG pH POC ABG pCO2 POC ABG pO2 ABG pO2 ABG HCO3 ABG Base Excess ABG Hemoglobin ABG Sodium ABG Chloride ABG Glucose Oxyhemoglobin Sodium Potassium Chloride Carbon Dioxide BUN 48 H Creatinine 6.1 H Glucose 122 H POC Glucose 175 H Calcium 8.3 L Magnesium Ferritin Alkaline Phosphatase Lactate Dehydrogenase Total Creatine Kinase Troponin T C-Reactive Protein Albumin Triglycerides Cholesterol HDL Cholesterol Arterial Blood Glucose Arterial Blood Ionized Calcium Urine WBC (Auto) Salicylates Acetaminophen Hepatitis C Antibody Chest x-ray: image reviewed Allied health notes reviewed: nursing
--- NOTE | 2020-04-11 15:21 | Consultation ---
History of Present Illness Consult date: 04/11/20 Reason for Consult: Acute Encephalopathy Chief complaint: Encephalopathy History of present illness: 49 yo female w/ previous cva w/ reisdual left hemiparesis, htn, esrd on hd, bipolar d/o, hypoventilation syndrome, anemia of chronic disease, who presents with noted encephalopathy. Patient was admitted for multiorgan failure. Per RN, the patient has improved slightly in the last 24 hours where she is responding to yes/no questions by nodding or shaking her head. No clinical seizure activity has been noted. Past History Past Medical History: diabetes, ESRD, hypertension, stroke, other (See HPI) Past Surgical History: Other (Bilateral foot amputations) Social history: single. denies: smoking, alcohol abuse, prescription drug abuse Family history: hypertension Medications and Allergies Allergies Allergy/AdvReac Type Severity Reaction Status Date / Time carrot Allergy Hives Verified 07/28/19 12:30 erythromycin base Allergy Hives Verified 07/30/19 11:26 latex Allergy Rash Verified 02/18/19 13:20 peas Allergy Hives Verified 12/20/19 12:37 vancomycin Allergy Hives Verified 12/31/19 15:46 Home Medications Medication Instructions Recorded Confirmed Last Taken Type Aripiprazole 5 mg PO DAILY 02/18/19 04/06/20 02/17/19 History Benadryl CAP 25 mg PO Q8H PRN 02/18/19 04/06/20 02/17/19 History Calcium Acetate 667 mg PO TIDWM 02/18/19 04/06/20 02/17/19 History Carvedilol 6.25 mg PO Q12H 02/18/19 04/06/20 02/17/19 History Colace CAP 100 mg PO Q12H PRN 02/18/19 04/06/20 02/17/19 History Esomeprazole Magnesium 40 mg PO QDAC 02/18/19 04/06/20 02/17/19 History HumaLOG 10 units SUB-Q TIDWM 02/18/19 04/06/20 02/17/19 History Insulin Detemir (Nf) [Levemir See Protocol SQ QHS 02/18/19 04/06/20 02/17/19 History Flextouch (Nf)] Losartan Potassium 50 mg PO DAILY 02/18/19 04/06/20 02/17/19 History Lyrica 75 mg PO Q12H 02/18/19 04/06/20 02/17/19 History Melatonin 6 mg PO QHS 02/18/19 04/06/20 02/17/19 History Senna 17.2 mg PO QHS PRN 02/18/19 04/06/20 02/17/19 History Venlafaxine HCl [Venlafaxine HCl 150 mg PO QDAC 02/18/19 04/06/20 02/17/19 History ER] Vitamin C 250 mg PO DAILY 02/18/19 04/06/20 02/17/19 History ZyrTEC 10mg cap 10 mg PO DAILY 02/18/19 04/06/20 02/17/19 History Calcium Acetate [Phoslo] 667 mg PO TIDWM capsule 12/22/19 04/06/20 Unknown Rx Fe Fumarate/FA/Mv, Min Comb#15 1 each PO QDAY capsule 12/22/19 04/06/20 Unknown Rx [Hemocyte Plus] Albuterol Mdi (or & Nicu Only) 2.5 puff IH Q4HRT PRN inha 01/12/20 04/06/20 Unknown Rx [ProAir HFA Inhaler] dexAMETHasone [Decadron] 6 mg PO Q12HR #10 tablet 01/12/20 04/06/20 Unknown Rx oxyCODONE 5 mg PO Q6H PRN #10 01/12/20 04/06/20 Unknown Rx Active Meds: Active Medications Acetaminophen (Tylenol) 650 mg PO Q6H PRN PRN Reason: Pain, Mild (1-3) Lipase/Protease/Amylase (Jeremy Reyes 10,500 Unit) 1 each FEEDTUBE PRN PRN PRN Reason: For Clogged Feeding Tube Carvedilol (Coreg) 6.25 mg PO BID [facility] Last Admin: 04/11/20 12:50 Dose: 6.25 mg Documented by: Dextrose (D50w (25gm) Syringe) 50 ml IV Q30MIN PRN; Protocol PRN Reason: Hypoglycemia Famotidine (Pepcid) 20 mg PO QDAY [facility] Last Admin: 04/11/20 12:50 Dose: 20 mg Documented by: Fentanyl (Sublimaze) 50 mcg IV Q10MIN PRN PRN Reason: ANALGESIA Heparin Sodium (Porcine) (Heparin) 5,000 unit SUB-Q Q12HR [facility] Last Admin: 04/11/20 12:50 Dose: 5,000 unit Documented by: Hydromorphone HCl (Dilaudid) 0.25 mg IV Q4H PRN PRN Reason: Pain, Moderate (4-6) Hydrophilic Ointment (Vaseline Lip Therapy) 1 applic TP Q2HR PRN PRN Reason: Dry Lips Fentanyl Citrate (Fentanyl Drip Premix) 2,000 mcg in 100 mls @ 5.505 mls/hr IV TITR [facility]; Protocol Last Titration: 04/11/20 08:00 Dose: 0 mcg/kg/hr, 0 mls/hr Documented by: Nicardipine/Sodium Chloride (Cardene Drip 40 Mg/200 Ml) 40 mg in 200 mls @ 25 mls/hr IV TITR [facility]; Protocol Last Titration: 04/06/20 23:23 Dose: Infused Documented by: Sodium Chloride (Nacl 0.9% 250ml) 250 mls @ 10 mls/hr IV DIRECT PRN PRN Reason: FOR ABX Last Admin: 04/09/20 05:38 Dose: 10 mls/hr Documented by: Sodium Chloride (Nacl 0.9%) 100 mls @ 999 mls/hr IV SPRING PRN PRN Reason: Hypotension MEROPENEM/NS 1 GRAM/100 ML (Merrem/Ns 1 Gram/100 Ml) 1 gram in 100 mls @ 100 mls/hr IV QPM [facility]; Protocol Last Admin: 04/10/20 17:11 Dose: 100 mls/hr Documented by: Insulin Glargine (Lantus) 10 units SUB-Q Q24H [facility] Last Admin: 04/10/20 17:11 Dose: 10 units Documented by: Insulin Human Regular (Humulin R) 0 unit SUB-Q Q6H [facility]; Protocol Last Admin: 04/11/20 13:03 Dose: 1 unit Documented by: Labetalol HCl (Labetalol) 10 mg IV Q4H PRN PRN Reason: Blood Pressure Last Admin: 04/09/20 16:03 Dose: 10 mg Documented by: Losartan Potassium (Cozaar) 50 mg PO QDAY [facility] Last Admin: 04/11/20 12:51 Dose: 50 mg Documented by: Multi-Ingred Cream/Lotion/Oil/Oint (Artificial Tears Ophth Oint) 1 applic OU Q4HR PRN PRN Reason: Dry Eye(s) Simple Syrup (Simple Syrup) 15 ml FEEDTUBE PRN PRN PRN Reason: Hypoglycemia Simple Syrup (Simple Syrup) 30 ml FEEDTUBE PRN PRN PRN Reason: Hypoglycemia Sodium Bicarbonate (Sodium Bicarbonate) 325 mg FEEDTUBE PRN PRN PRN Reason: For Clogged Feeding Tube Sodium Chloride (Sodium Chloride Flush Syringe 10 Ml) 10 ml IV BID [facility] Last Admin: 04/11/20 12:52 Dose: 10 ml Documented by: Sodium Chloride (Sodium Chloride Flush Syringe 10 Ml) 10 ml IV PRN PRN PRN Reason: LINE FLUSH Review of Systems ROS unobtainable: due to mental status Physical Examination - Vital Signs Vital Signs: Vital Signs Temp Pulse Resp BP Pulse Ox 94.1 F L 66 18 131/111 87 04/06/20 13:05 04/06/20 13:05 04/06/20 13:05 04/06/20 13:05 04/06/20 13:05 - Additional Exam Additional Exam: Gen: nad, well-nourished, intubated; Head: appears normocephalic; Eyes: no gaze deviation; no ptosis; ENT: +ETT; CVS: warm and well-perfused; Pulm: no respiratory distress; GI: non-distended, protuberant; Ext: no cyanosis at distal extremities; Skin: no acute rash at distal extremities; Heme: no pathologic ecchymosis at distal extremities; Neuro: intubated, somnolent, follows simple commands, CN 2 - PERRL, no blink to visual stimuli, CN 3, 4, 6 - difficulty w/ latearl and down eye movements, CN 5 - facial sensation symmetric to light touch, CN 7 - facial movement cannot be assessed secondary to ETT, CN 8 - hearing grossly intact, CN 9, 10 - uvula midline, CN 11 - right shoulder movement only, CN 12 - tongue midline; Motor - 2+/5 at RUE/RLE o/w 0/5 at all other exts; Sensory - light touch symmetric, Cerebellar - cannot pariticipate secondary to weakness / amputations respectively regards to fnf /hts intact, Gait - deferred secondary to fall risk; Results - Laboratory Findings CBC and BMP: 04/11/20 07:39 04/11/20 07:39 Abnormal Lab Findings: Abnormal Labs 04/06/20 04/06/20 04/06/20 13:34 14:30 14:30 WBC 19.2 H RBC Hgb Hct RDW 17.8 H Seg Neuts % (Manual) 90.0 H Lymphocytes % (Manual) 4.0 L Basophils % (Manual) Seg Neutrophils # Man 17.3 H Lymphocytes # (Manual) 0.8 L Monocytes # (Manual) Eosinophils # (Manual) Basophils # (Manual) D-Dimer ABG pH POC ABG pCO2 POC ABG pO2 ABG pO2 ABG HCO3 ABG Base Excess ABG Hemoglobin ABG Sodium ABG Chloride ABG Glucose Oxyhemoglobin Sodium Potassium 5.2 H Chloride Carbon Dioxide 17 L BUN 53 H Creatinine 7.8 H Glucose 144 H POC Glucose Calcium Magnesium Ferritin Alkaline Phosphatase 738 H Lactate Dehydrogenase Total Creatine Kinase 23 L Troponin T 0.224 H* C-Reactive Protein Albumin 3.1 L Triglycerides 342 H Cholesterol 223 H HDL Cholesterol 35 L Arterial Blood Glucose Arterial Blood Ionized Calcium Urine WBC (Auto) > 182.0 H Salicylates Acetaminophen Hepatitis C Antibody 04/06/20 04/06/20 04/06/20 14:30 14:30 14:30 WBC RBC Hgb Hct RDW Seg Neuts % (Manual) Lymphocytes % (Manual) Basophils % (Manual) Seg Neutrophils # Man Lymphocytes # (Manual) Monocytes # (Manual) Eosinophils # (Manual) Basophils # (Manual) D-Dimer ABG pH POC ABG pCO2 POC ABG pO2 ABG pO2 ABG HCO3 ABG Base Excess ABG Hemoglobin ABG Sodium ABG Chloride ABG Glucose Oxyhemoglobin Sodium Potassium Chloride Carbon Dioxide BUN Creatinine Glucose POC Glucose Calcium Magnesium 2.50 H Ferritin Alkaline Phosphatase Lactate Dehydrogenase Total Creatine Kinase 24 L Troponin T C-Reactive Protein Albumin Triglycerides Cholesterol HDL Cholesterol Arterial Blood Glucose Arterial Blood Ionized Calcium Urine WBC (Auto) Salicylates < 0.3 L Acetaminophen 5.0 L Hepatitis C Antibody 04/06/20 04/06/20 04/07/20 14:39 20:00 00:48 WBC RBC Hgb Hct RDW Seg Neuts % (Manual) Lymphocytes % (Manual) Basophils % (Manual) Seg Neutrophils # Man Lymphocytes # (Manual) Monocytes # (Manual) Eosinophils # (Manual) Basophils # (Manual) D-Dimer ABG pH 7.281 L 7.306 L POC ABG pCO2 POC ABG pO2 78.0 L ABG pO2 133.8 H ABG HCO3 18.3 L ABG Base Excess -7.8 L ABG Hemoglobin 10.8 L 10.8 L ABG Sodium ABG Chloride 108.0 H ABG Glucose Oxyhemoglobin Sodium Potassium Chloride Carbon Dioxide BUN Creatinine Glucose POC Glucose 69 L Calcium Magnesium Ferritin Alkaline Phosphatase Lactate Dehydrogenase Total Creatine Kinase Troponin T C-Reactive Protein Albumin Triglycerides Cholesterol HDL Cholesterol Arterial Blood Glucose Arterial Blood Ionized Calcium Urine WBC (Auto) Salicylates Acetaminophen Hepatitis C Antibody 04/07/20 04/07/20 04/07/20 09:34 09:34 09:34 WBC RBC Hgb Hct RDW Seg Neuts % (Manual) Lymphocytes % (Manual) Basophils % (Manual) Seg Neutrophils # Man Lymphocytes # (Manual) Monocytes # (Manual) Eosinophils # (Manual) Basophils # (Manual) D-Dimer 1063.66 H ABG pH POC ABG pCO2 POC ABG pO2 ABG pO2 ABG HCO3 ABG Base Excess ABG Hemoglobin ABG Sodium ABG Chloride ABG Glucose Oxyhemoglobin Sodium Potassium Chloride Carbon Dioxide BUN Creatinine Glucose POC Glucose Calcium Magnesium Ferritin 743.0 H Alkaline Phosphatase Lactate Dehydrogenase 195 H Total Creatine Kinase Troponin T C-Reactive Protein 7.50 H Albumin Triglycerides Cholesterol HDL Cholesterol Arterial Blood Glucose Arterial Blood Ionized Calcium Urine WBC (Auto) Salicylates Acetaminophen Hepatitis C Antibody 04/07/20 04/07/20 04/07/20 10:01 16:38 23:51 WBC RBC Hgb Hct RDW Seg Neuts % (Manual) Lymphocytes % (Manual) Basophils % (Manual) Seg Neutrophils # Man Lymphocytes # (Manual) Monocytes # (Manual) Eosinophils # (Manual) Basophils # (Manual) D-Dimer ABG pH POC ABG pCO2 POC ABG pO2 79.8 L ABG pO2 ABG HCO3 ABG Base Excess ABG Hemoglobin 10.3 L ABG Sodium ABG Chloride 109.0 H ABG Glucose Oxyhemoglobin Sodium Potassium Chloride Carbon Dioxide BUN Creatinine Glucose POC Glucose 117 H Calcium Magnesium Ferritin Alkaline Phosphatase Lactate Dehydrogenase Total Creatine Kinase Troponin T C-Reactive Protein Albumin Triglycerides Cholesterol HDL Cholesterol Arterial Blood Glucose Arterial Blood Ionized Calcium 4.5 L Urine WBC (Auto) Salicylates Acetaminophen Hepatitis C Antibody Reactive A 04/08/20 04/08/20 04/08/20 04:58 12:48 17:03 WBC RBC Hgb Hct RDW Seg Neuts % (Manual) Lymphocytes % (Manual) Basophils % (Manual) Seg Neutrophils # Man Lymphocytes # (Manual) Monocytes # (Manual) Eosinophils # (Manual) Basophils # (Manual) D-Dimer ABG pH POC ABG pCO2 POC ABG pO2 ABG pO2 ABG HCO3 ABG Base Excess ABG Hemoglobin ABG Sodium ABG Chloride ABG Glucose Oxyhemoglobin Sodium Potassium Chloride Carbon Dioxide BUN Creatinine Glucose POC Glucose 129 H 155 H 201 H Calcium Magnesium Ferritin Alkaline Phosphatase Lactate Dehydrogenase Total Creatine Kinase Troponin T C-Reactive Protein Albumin Triglycerides Cholesterol HDL Cholesterol Arterial Blood Glucose Arterial Blood Ionized Calcium Urine WBC (Auto) Salicylates Acetaminophen Hepatitis C Antibody 04/08/20 04/08/20 04/09/20 23:49 Unknown 05:31 WBC RBC Hgb Hct RDW Seg Neuts % (Manual) Lymphocytes % (Manual) Basophils % (Manual) Seg Neutrophils # Man Lymphocytes # (Manual) Monocytes # (Manual) Eosinophils # (Manual) Basophils # (Manual) D-Dimer ABG pH 7.349 L POC ABG pCO2 POC ABG pO2 ABG pO2 117.3 H ABG HCO3 ABG Base Excess ABG Hemoglobin 7.4 L ABG Sodium ABG Chloride ABG Glucose Oxyhemoglobin Sodium Potassium Chloride Carbon Dioxide BUN Creatinine Glucose POC Glucose 178 H 248 H Calcium Magnesium Ferritin Alkaline Phosphatase Lactate Dehydrogenase Total Creatine Kinase Troponin T C-Reactive Protein Albumin Triglycerides Cholesterol HDL Cholesterol Arterial Blood Glucose Arterial Blood Ionized Calcium Urine WBC (Auto) Salicylates Acetaminophen Hepatitis C Antibody 04/09/20 04/09/20 04/09/20 11:39 17:35 Unknown WBC RBC Hgb Hct RDW Seg Neuts % (Manual) Lymphocytes % (Manual) Basophils % (Manual) Seg Neutrophils # Man Lymphocytes # (Manual) Monocytes # (Manual) Eosinophils # (Manual) Basophils # (Manual) D-Dimer ABG pH POC ABG pCO2 51.6 H POC ABG pO2 ABG pO2 ABG HCO3 ABG Base Excess ABG Hemoglobin 11.4 L ABG Sodium 130.1 L ABG Chloride ABG Glucose 249 H Oxyhemoglobin Sodium Potassium Chloride Carbon Dioxide BUN Creatinine Glucose POC Glucose 319 H 254 H Calcium Magnesium Ferritin Alkaline Phosphatase Lactate Dehydrogenase Total Creatine Kinase Troponin T C-Reactive Protein Albumin Triglycerides Cholesterol HDL Cholesterol Arterial Blood Glucose 249 H Arterial Blood Ionized Calcium 4.1 L Urine WBC (Auto) Salicylates Acetaminophen Hepatitis C Antibody 04/10/20 04/10/20 04/10/20 00:00 03:15 05:49 WBC RBC Hgb Hct RDW Seg Neuts % (Manual) Lymphocytes % (Manual) Basophils % (Manual) Seg Neutrophils # Man Lymphocytes # (Manual) Monocytes # (Manual) Eosinophils # (Manual) Basophils # (Manual) D-Dimer ABG pH POC ABG pCO2 48.2 H POC ABG pO2 ABG pO2 ABG HCO3 ABG Base Excess ABG Hemoglobin 9.9 L ABG Sodium 135.4 L ABG Chloride ABG Glucose 215 H Oxyhemoglobin Sodium Potassium Chloride Carbon Dioxide BUN Creatinine Glucose POC Glucose 194 H 221 H Calcium Magnesium Ferritin Alkaline Phosphatase Lactate Dehydrogenase Total Creatine Kinase Troponin T C-Reactive Protein Albumin Triglycerides Cholesterol HDL Cholesterol Arterial Blood Glucose 215 H Arterial Blood Ionized Calcium 4.5 L Urine WBC (Auto) Salicylates Acetaminophen Hepatitis C Antibody 04/10/20 04/10/20 04/10/20 08:18 08:18 12:22 WBC 28.9 H RBC 3.38 L Hgb 9.5 L Hct 30.1 L RDW 16.9 H Seg Neuts % (Manual) 87.0 H Lymphocytes % (Manual) 9.0 L Basophils % (Manual) 2.0 H Seg Neutrophils # Man 25.1 H Lymphocytes # (Manual) Monocytes # (Manual) Eosinophils # (Manual) Basophils # (Manual) 0.6 H D-Dimer ABG pH POC ABG pCO2 POC ABG pO2 ABG pO2 ABG HCO3 ABG Base Excess ABG Hemoglobin ABG Sodium ABG Chloride ABG Glucose Oxyhemoglobin Sodium 134 L Potassium 3.5 L D Chloride 94.9 L Carbon Dioxide BUN 38 H Creatinine 5.5 H Glucose 230 H POC Glucose 218 H Calcium Magnesium Ferritin Alkaline Phosphatase Lactate Dehydrogenase Total Creatine Kinase Troponin T C-Reactive Protein Albumin Triglycerides Cholesterol HDL Cholesterol Arterial Blood Glucose Arterial Blood Ionized Calcium Urine WBC (Auto) Salicylates Acetaminophen Hepatitis C Antibody 04/10/20 04/10/20 04/10/20 17:27 18:08 23:29 WBC RBC Hgb Hct RDW Seg Neuts % (Manual) Lymphocytes % (Manual) Basophils % (Manual) Seg Neutrophils # Man Lymphocytes # (Manual) Monocytes # (Manual) Eosinophils # (Manual) Basophils # (Manual) D-Dimer ABG pH POC ABG pCO2 POC ABG pO2 ABG pO2 ABG HCO3 ABG Base Excess ABG Hemoglobin ABG Sodium ABG Chloride ABG Glucose Oxyhemoglobin Sodium Potassium Chloride Carbon Dioxide BUN Creatinine Glucose POC Glucose 218 H 223 H 166 H Calcium Magnesium Ferritin Alkaline Phosphatase Lactate Dehydrogenase Total Creatine Kinase Troponin T C-Reactive Protein Albumin Triglycerides Cholesterol HDL Cholesterol Arterial Blood Glucose Arterial Blood Ionized Calcium Urine WBC (Auto) Salicylates Acetaminophen Hepatitis C Antibody 04/11/20 04/11/20 04/11/20 03:44 05:28 07:39 WBC 26.9 H RBC 3.32 L Hgb 9.4 L Hct 29.5 L RDW 17.2 H Seg Neuts % (Manual) 83.0 H Lymphocytes % (Manual) 10.0 L Basophils % (Manual) Seg Neutrophils # Man 22.3 H Lymphocytes # (Manual) Monocytes # (Manual) 1.1 H Eosinophils # (Manual) 0.5 H Basophils # (Manual) D-Dimer ABG pH 7.313 L POC ABG pCO2 POC ABG pO2 ABG pO2 73.4 L ABG HCO3 26.7 H ABG Base Excess ABG Hemoglobin 11.0 L ABG Sodium ABG Chloride ABG Glucose Oxyhemoglobin 92.8 L Sodium Potassium Chloride Carbon Dioxide BUN Creatinine Glucose POC Glucose 164 H Calcium Magnesium Ferritin Alkaline Phosphatase Lactate Dehydrogenase Total Creatine Kinase Troponin T C-Reactive Protein Albumin Triglycerides Cholesterol HDL Cholesterol Arterial Blood Glucose Arterial Blood Ionized Calcium Urine WBC (Auto) Salicylates Acetaminophen Hepatitis C Antibody 04/11/20 04/11/20 07:39 12:25 WBC RBC Hgb Hct RDW Seg Neuts % (Manual) Lymphocytes % (Manual) Basophils % (Manual) Seg Neutrophils # Man Lymphocytes # (Manual) Monocytes # (Manual) Eosinophils # (Manual) Basophils # (Manual) D-Dimer ABG pH POC ABG pCO2 POC ABG pO2 ABG pO2 ABG HCO3 ABG Base Excess ABG Hemoglobin ABG Sodium ABG Chloride ABG Glucose Oxyhemoglobin Sodium Potassium Chloride Carbon Dioxide BUN 48 H Creatinine 6.1 H Glucose 122 H POC Glucose 175 H Calcium 8.3 L Magnesium Ferritin Alkaline Phosphatase Lactate Dehydrogenase Total Creatine Kinase Troponin T C-Reactive Protein Albumin Triglycerides Cholesterol HDL Cholesterol Arterial Blood Glucose Arterial Blood Ionized Calcium Urine WBC (Auto) Salicylates Acetaminophen Hepatitis C Antibody Assessment and Plan 49 yo female w/ previous cva w/ reisdual left hemiparesis, htn, esrd on hd, bipolar d/o, hypoventilation syndrome, anemia of chronic disease, who presents with noted encephalopathy. 1. Metabolic Encephaloapathy - based on clinical history of improvement per RN. 2. Acute Ischemic Stroke - antiplatelet and statin therapy if no contraindications; recommend MRI brain w/o contrast and further workup based on MRI findings. 3. Seizure - pending eeg. Bob Hogue MD Neurology
--- NOTE | 2020-04-11 16:01 | XRay Report ---
CHEST 1 VIEW INDICATION: Endotracheal tube placement, altered mental status. COMPARISON: 01/06/2020 FINDINGS: Support devices: An endotracheal tube has been inserted which terminates 1.3 cm superior to the pallavi a. A nasogastric tube terminates in the mid stomach. Right IJ permacath is unchanged terminating in t he superior right atrium. Heart: Stable mild cardiomegaly. Lungs/Pleura: There is poor inspiration with mild bibasilar opacities which probably represents atele ctatic changes. The upper lung zones are clear. No pleural effusion or pneumothorax. Additional findings: None. IMPRESSION: Endotracheal tube terminates 1.3 cm superior to the robbi. Consider retraction by 2-3 cm. Stable mild cardiomegaly. Mild bibasilar opacities as described. Signer Name: Barrie Valentin Jr, MD Signed: 04/06/2020 3:37 PM Workstation Name: [id number]
[2020-04-11] MEDS: MEROPENEM/NS 1 GRAM/100 ML 1 GRAM/100 ML BAG IV SCH (18:07)
[2020-04-11] MEDS: INSULIN GLARGINE 100 UNITS/ML SUB-Q SCH (18:08)
[2020-04-12] MEDS: INSULIN REGULAR, HUMAN 100 UNIT/ML 3ML VIAL SUB-Q SCH ×4 (00:05→17:15)
--- NOTE | 2020-04-12 03:21 | XRay Report ---
CHEST 1 VIEW 04/12/2020 2:07 AM INDICATION / CLINICAL INFORMATION: follow up respiratory failure. COMPARISON: 04/11/2020 FINDINGS: SUPPORT DEVICES: Stable, satisfactory device positioning. HEART / MEDIASTINUM: Stable. LUNGS / PLEURA: Mildly improved bibasilar opacities. No pneumothorax. ADDITIONAL FINDINGS: No significant additional findings. IMPRESSION: 1. Mildly improved bibasilar opacities. Signer Name: Jaswinder Us MD Signed: 04/12/2020 3:20 AM Workstation Name: [id number]
[2020-04-12 08:58] LABS: Hematocrit 29.1 % (30.3-42.9); Hemoglobin 9.5 gm/dl (10.1-14.3); Mean Corpuscular HGB Conc 33 % (30-34); Mean Corpuscular Volume 88 fl (79-97); Platelet Count 347 K/mm3 (140-440); Red Blood Count 3.29 M/mm3 (3.65-5.03); Red Cell Distribution Width 16.9 % (13.2-15.2)
--- NOTE | 2020-04-12 09:03 | Progress Note ---
Assessment and Plan Assessment and plan: Severe sepsis. Present on admission with hypothermia, leukocytosis, altered mental status, likely due to bilateral pneumonia. F/U Blood Cx. Cont. Abx pre ID Bilateral pneumonia. Aspiration pneumonia/HAP Severe UTI. Bains catheter with purulent urine. Acute hypoxemic respiratory failure. Intubated for airway protection, O2 sats down to 87%. Toxic metabolic encephalopathy. Etiology secondary to sepsis End-stage renal disease on hemodialysis Extensive Candidal intertrigo in groin and vagina. Cont. Fluconazole History COVID-19 infection (01/07/2020) 04/08/2020. Patient remains intubated on mechanical ventilation with AC mode ventilation rate 12, tidal volume 450, FiO2 40% and a PEEP of 6. Continue weaning per protocols. Patient with ESRD and continue TTS schedule per nephrology. Patient does have a history of COVID-19 infection(01/07/20) but negative testing April 07. Follow-up blood/urine/sputum culture. Continue antibiotics per ID recommendations. 04/09/2020. Patient not tolerating PSV 12/6 with FiO2 of 30%. Continue hemodialysis per nephrology recommendations. Continue IV antibiotics per ID recommendations. Blood cultures no growth to date. Respiratory therapy reports patient with accelerated hypertension and apneic episodes on PSV ventilation. Await pulmonary recommendations. 04/10/2020. Patient remains on mechanical ventilation AC mode rate 12, tidal volume 450, FiO2 30% and a PEEP of 6. Continue PSV trials per protocols. Continue hemodialysis per nephrology recommendations. Continue anti-infectives of fluconazole and cefepime. Follow-up blood/urine/sputum culture. ID, pulmonary and nephrology following. 04/11/2020; patient remains on mechanical ventilation AC mode rate 12, tidal volume 450, FiO2 of 30 and PEEP of 6. Continue PSV trials per protocols. continue hemodialysis per nephrology. ID changed antibiotics to meropenem. Blood culture grew staph epidermidis likey contaminant. 04/12/2020; patient is intubated, patient open eyes spontaneously. Neurology consulted and continue on replacement treatment. EEG is pending. Recommend MRI. Patient is on meropenem per ID recommendation. Pulmonary is following. Patient is on spontaneous breathing trial The high probability of a clinically significant, sudden or life threatening deterioration of the [respiratory] system(s) required my full and direct attention, intervention and personal management. The aggregate critical care time was [33] minutes. This time is in addition to time spent performing reported procedures but includes the following: [x] Data Review and interpretation [x] Patient assessment and monitoring of vital signs [x] Documentation [x] Medication orders and management History Interval history: 49 years old female with history of asthma, hypertension, end-stage renal disease on hemodialysis, diabetes mellitus, bipolar disorder, morbid obesity, CVA, resident of a shelter, admitted on 04/06/2020 secondary to be found Unresponsiveness after hemodialysis. Patient is unable to provide history, currently intubated. Patient received hemodialysis and after completion she became unresponsive. Upon EMS arrival, blood pressure was 90/60, HR 88, temperature 97.2. Per records, patient was not complaining of any symptoms. On arrival, temperature 94.1, HR 66, RR 18, O2 sat 87%, BP 131/111. Initial WBC 19.2. Urinalysis showed more than 182 WBCs and moderate leukocyte esterase. Chest x-ray shows bibasilar infiltrates. Patient was intubated in the emergency room to protect airway. Bains catheter was placed yielding purulent urine. No new issues overnight. Patient remains intubated on mechanical ventilation History Interval history: Patient was seen and evaluated this morning Patient is intubated and on mechanical ventilation Patient open her eyes spontaneously Hospitalist Physical - Physical exam Narrative exam: Continue intubated and on mechanical ventilation. The patient appeared well nourished and normally developed. Vital signs as documented. Head exam is unremarkable. No scleral icterus . Neck is without jugular venous distension, thyromegaly, or carotid bruits. Lungs are clear to auscultation. Cardiac exam reveals regular rate and Rhythm. Abdominal exam reveals normal bowel sounds, nontender, no organomegaly. Extremities are nonedematous and both femoral and pedal pulses are normal. 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 - Constitutional Vitals: Temp Pulse Resp BP Pulse Ox 98.6 F 90 13 194/78 99 04/12/20 08:00 04/12/20 08:16 04/12/20 08:16 04/12/20 08:16 04/12/20 08:16 General appearance: Present: severe distress, other (Intubated on mechanical ventilation) HEART Score - HEART Score Troponin: Troponin T 0.224 ng/mL (0.00-0.029) H* 04/06/20 14:30 Results - Labs CBC & Chem 7: 04/12/20 08:14 04/12/20 08:14 Labs: Laboratory Last Values WBC 26.9 K/mm3 (4.5-11.0) H 04/11/20 07:39 RBC 3.32 M/mm3 (3.65-5.03) L 04/11/20 07:39 Hgb 9.4 gm/dl (10.1-14.3) L 04/11/20 07:39 Hct 29.5 % (30.3-42.9) L 04/11/20 07:39 MCV 89 fl (79-97) 04/11/20 07:39 MCH 28 pg (28-32) 04/11/20 07:39 MCHC 32 % (30-34) 04/11/20 07:39 RDW 17.2 % (13.2-15.2) H 04/11/20 07:39 Plt Count 339 K/mm3 (140-440) 04/11/20 07:39 Add Manual Diff Complete 04/11/20 07:39 Total Counted 100 04/11/20 07:39 Seg Neuts % (Manual) 83.0 % (40.0-70.0) H 04/11/20 07:39 Band Neutrophils % 0 % 04/11/20 07:39 Lymphocytes % (Manual) 10.0 % (13.4-35.0) L 04/11/20 07:39 Reactive Lymphs % (Man) 0 % 04/11/20 07:39 Monocytes % (Manual) 4.0 % (0.0-7.3) 04/11/20 07:39 Eosinophils % (Manual) 2.0 % (0.0-4.3) 04/11/20 07:39 Basophils % (Manual) 0 % (0.0-1.8) 04/11/20 07:39 Metamyelocytes % 0 % 04/11/20 07:39 Myelocytes % 1.0 % 04/11/20 07:39 Promyelocytes % 0 % 04/11/20 07:39 Blast Cells % 0 % 04/11/20 07:39 Nucleated RBC % Not Reportable 04/11/20 07:39 Seg Neutrophils # Man 22.3 K/mm3 (1.8-7.7) H 04/11/20 07:39 Band Neutrophils # 0.0 K/mm3 04/11/20 07:39 Lymphocytes # (Manual) 2.7 K/mm3 (1.2-5.4) 04/11/20 07:39 Abs React Lymphs (Man) 0.0 K/mm3 04/11/20 07:39 Monocytes # (Manual) 1.1 K/mm3 (0.0-0.8) H 04/11/20 07:39 Eosinophils # (Manual) 0.5 K/mm3 (0.0-0.4) H 04/11/20 07:39 Basophils # (Manual) 0.0 K/mm3 (0.0-0.1) 04/11/20 07:39 Metamyelocytes # 0.0 K/mm3 04/11/20 07:39 Myelocytes # 0.3 K/mm3 04/11/20 07:39 Promyelocytes # 0.0 K/mm3 04/11/20 07:39 Blast Cells # 0.0 K/mm3 04/11/20 07:39 WBC Morphology Not Reportable 04/11/20 07:39 Hypersegmented Neuts Not Reportable 04/11/20 07:39 Hyposegmented Neuts Not Reportable 04/11/20 07:39 Hypogranular Neuts Not Reportable 04/11/20 07:39 Smudge Cells Not Reportable 04/11/20 07:39 Toxic Granulation Not Reportable 04/11/20 07:39 Toxic Vacuolation Not Reportable 04/11/20 07:39 Dohle Bodies Not Reportable 04/11/20 07:39 Pelger-Huet Anomaly Not Reportable 04/11/20 07:39 Stephanie Rods Not Reportable 04/11/20 07:39 Platelet Estimate Consistent w auto 04/11/20 07:39 Clumped Platelets Not Reportable 04/11/20 07:39 Plt Clumps, EDTA Not Reportable 04/11/20 07:39 Large Platelets Not Reportable 04/11/20 07:39 Giant Platelets Not Reportable 04/11/20 07:39 Platelet Satelliting Not Reportable 04/11/20 07:39 Plt Morphology Comment Not Reportable 04/11/20 07:39 RBC Morphology Not Reportable 04/11/20 07:39 Dimorphic RBCs Not Reportable 04/11/20 07:39 Polychromasia Rare 04/11/20 07:39 Hypochromasia Not Reportable 04/11/20 07:39 Poikilocytosis Not Reportable 04/11/20 07:39 Anisocytosis 1+ 04/11/20 07:39 Microcytosis Not Reportable 04/11/20 07:39 Macrocytosis 1+ 04/11/20 07:39 Spherocytes Not Reportable 04/11/20 07:39 Pappenheimer Bodies Not Reportable 04/11/20 07:39 Sickle Cells Not Reportable 04/11/20 07:39 Target Cells Not Reportable 04/11/20 07:39 Tear Drop Cells Not Reportable 04/11/20 07:39 Ovalocytes Not Reportable 04/11/20 07:39 Helmet Cells Not Reportable 04/11/20 07:39 Bar[place] Bodies Not Reportable 04/11/20 07:39 [place] Rings Not Reportable 04/11/20 07:39 [place] Cells Few 04/11/20 07:39 Bite Cells Not Reportable 04/11/20 07:39 Crenated Cell Not Reportable 04/11/20 07:39 Elliptocytes Not Reportable 04/11/20 07:39 Acanthocytes (Spur) Not Reportable 04/11/20 07:39 Rouleaux Not Reportable 04/11/20 07:39 Hemoglobin C Crystals Not Reportable 04/11/20 07:39 Schistocytes Not Reportable 04/11/20 07:39 Malaria parasites Not Reportable 04/11/20 07:39 Lc Bodies Not Reportable 04/11/20 07:39 Hem Pathologist Commnt No 04/11/20 07:39 PT 13.8 Sec. (12.2-14.9) 04/06/20 14:30 INR 1.04 (0.87-1.13) 04/06/20 14:30 APTT 28.1 Sec. (24.2-36.6) 04/06/20 14:30 D-Dimer 1063.66 ng/mlDDU (0-234) H 04/07/20 09:34 ABG pH 7.313 pH Units (7.350-7.450) L 04/11/20 03:44 POC ABG pCO2 48.2 mmHg (32.0-48.0) H 04/10/20 03:15 ABG pCO2 54.0 mm Hg 04/11/20 03:44 POC ABG pO2 88.5 mmHg (83-108) 04/10/20 03:15 ABG pO2 73.4 mm Hg (80.0-90.0) L 04/11/20 03:44 POC ABG HCO3 25.6 04/10/20 03:15 ABG HCO3 26.7 mmol/L (20.0-26.0) H 04/11/20 03:44 ABG O2 Saturation 95.0 % (95.0-99.0) 04/11/20 03:44 ABG O2 Content 14.4 (0.0-44) 04/11/20 03:44 POC ABG Base Excess -0.4 04/10/20 03:15 ABG Base Excess -0.1 mmol/L (-2.0-3.0) 04/11/20 03:44 ABG Hemoglobin 11.0 gm/dl (12.0-16.0) L 04/11/20 03:44 ABG Carboxyhemoglobin 1.6 % (0.0-5.0) 04/11/20 03:44 ABG Methemoglobin 0.7 % (0.0-1.5) 04/11/20 03:44 ABG Sodium 135.4 mmol/L (136.0-145.0) L 04/10/20 03:15 ABG Potassium 3.6 mmol/L (3.40-4.50) 04/10/20 03:15 ABG Chloride 101.0 mmol/L (98-107) 04/10/20 03:15 ABG Glucose 215 mg/dL (65-95) H 04/10/20 03:15 Oxyhemoglobin 92.8 % (95.0-99.0) L 04/11/20 03:44 FiO2 30 % 04/11/20 03:44 Sodium 138 mmol/L (137-145) 04/11/20 07:39 Potassium 3.9 mmol/L (3.6-5.0) 04/11/20 07:39 Chloride 100.3 mmol/L (98-107) 04/11/20 07:39 Carbon Dioxide 26 mmol/L (22-30) 04/11/20 07:39 Anion Gap 16 mmol/L 04/11/20 07:39 BUN 48 mg/dL (7-17) H 04/11/20 07:39 Creatinine 6.1 mg/dL (0.6-1.2) H 04/11/20 07:39 Estimated GFR 7 ml/min 04/11/20 07:39 BUN/Creatinine Ratio 8 % 04/11/20 07:39 Glucose 122 mg/dL (65-100) H 04/11/20 07:39 POC Glucose 151 mg/dL (70-105) H 04/12/20 05:51 Lactic Acid 1.00 mmol/L (0.7-2.0) 04/06/20 23:09 Calcium 8.3 mg/dL (8.4-10.2) L 04/11/20 07:39 Magnesium 2.50 mg/dL (1.7-2.3) H 04/06/20 14:30 Ferritin 743.0 ng/mL (10.0-200.0) H 04/07/20 09:34 Total Bilirubin 0.30 mg/dL (0.1-1.2) 04/06/20 14:30 AST 39 units/L (5-40) 04/06/20 14:30 ALT 21 units/L (7-56) 04/06/20 14:30 Alkaline Phosphatase 738 units/L (35-129) H 04/06/20 14:30 Ammonia 43.0 umol/L (25-60) 04/06/20 14:30 Lactate Dehydrogenase 195 units/L (91-180) H 04/07/20 09:34 Total Creatine Kinase 23 units/L (30-135) L 04/06/20 14:30 Total Creatine Kinase 24 units/L (30-135) L 04/06/20 14:30 Troponin T 0.224 ng/mL (0.00-0.029) H* 04/06/20 14:30 C-Reactive Protein 7.50 mg/dL (0.00-1.30) H 04/07/20 09:34 Total Protein 8.1 g/dL (6.3-8.2) 04/06/20 14:30 Albumin 3.1 g/dL (3.9-5) L 04/06/20 14:30 Albumin/Globulin Ratio 0.6 % 04/06/20 14:30 Triglycerides 342 mg/dL (2-149) H 04/06/20 14:30 Cholesterol 223 mg/dL (50-199) H 04/06/20 14:30 LDL Cholesterol Direct 123 mg/dL (50-130) 04/06/20 14:30 HDL Cholesterol 35 mg/dL (40-59) L 04/06/20 14:30 Cholesterol/HDL Ratio 6.37 % 04/06/20 14:30 TSH 1.320 mlU/mL (0.270-4.200) 04/06/20 14:30 HCG, Qual Negative (Negative) 04/06/20 14:30 Arterial Blood Glucose 215 mg/dL (65-95) H 04/10/20 03:15 Arterial Blood Ionized Calcium 4.5 mg/dL (4.6-5.3) L 04/10/20 03:15 Urine Color Yellow (Yellow) 04/06/20 13:34 Urine Turbidity Turbid (Clear) 04/06/20 13:34 Urine pH 7.0 (5.0-7.0) 04/06/20 13:34 Ur Specific [place] 1.017 (1.003-1.030) 04/06/20 13:34 Urine Protein 100 mg/dl mg/dL (Negative) 04/06/20 13:34 Urine Glucose (UA) 50 mg/dL (Negative) 04/06/20 13:34 Urine Ketones Tr mg/dL (Negative) 04/06/20 13:34 Urine Blood Sm (Negative) 04/06/20 13:34 Urine Nitrite Neg (Negative) 04/06/20 13:34 Urine Bilirubin Neg (Negative) 04/06/20 13:34 Urine Urobilinogen < 2.0 mg/dL (<2.0) 04/06/20 13:34 Ur Leukocyte Esterase Mod (Negative) 04/06/20 13:34 Urine WBC (Auto) > 182.0 /HPF (0.0-6.0) H 04/06/20 13:34 Urine RBC (Auto) 49.0 /HPF (0.0-6.0) 04/06/20 13:34 U Epithel Cells (Auto) 6.0 /HPF (0-13.0) 04/06/20 13:34 Urine Bacteria (Auto) 2+ /HPF (Negative) 04/06/20 13:34 Urine WBC Clumps 3+ /HPF 04/06/20 13:34 Urine Mucus 3+ /HPF 04/06/20 13:34 Salicylates < 0.3 mg/dL (2.8-20.0) L 04/06/20 14:30 Acetaminophen 5.0 ug/mL (10.0-30.0) L 04/06/20 14:30 Plasma/Serum Alcohol < 0.01 % (0-0.07) 04/06/20 14:30 Coronavirus (PCR) Negative (Negative) 04/07/20 Unknown Hepatitis A IgM Ab Non-reactive (NonReactive) 04/07/20 16:38 Hep Bs Antigen Non-reactive (Negative) 04/07/20 16:38 Hep B Core IgM Ab Non-reactive (NonReactive) 04/07/20 16:38 Hepatitis C Antibody Reactive (NonReactive) A 04/07/20 16:38 Blood Type O POSITIVE 04/06/20 14:30 Antibody Screen Negative 04/06/20 14:30 Microbiology: Microbiology 04/06/20 14:30 Peripheral/Venous Blood Culture - Final NO GROWTH AFTER 5 DAYS Bains/IV: Voiding Method Indwelling Catheter IV Catheter Type [Right VAS Cath Subclavian] IV Catheter Type [Left INT / Saline Lock Antecubital] IV Catheter Type [Right INT / Saline Lock Forearm] Active Medications - Current Medications Current Medications: Generic Name Dose Route Start Last Admin Trade Name Freq PRN Reason Stop Dose Admin Acetaminophen 650 mg 04/06/20 16:39 Tylenol PO Q6H PRN Pain, Mild (1-3) Lipase/Protease/Amylase 1 each 04/07/20 10:[address] 10,500 Unit FEEDTUBE PRN PRN For Clogged Feeding Tube Carvedilol 6.25 mg 04/09/20 22:00 04/11/20 21:07 Coreg PO 6.25 mg BID NOEL Administration Dextrose 50 ml 04/09/20 16:30 D50w (25gm) Syringe IV Q30MIN PRN Hypoglycemia Protocol Famotidine 20 mg 04/07/20 10:00 04/11/20 12:50 Pepcid PO 20 mg QDAY NOEL Administration Fentanyl 50 mcg 04/06/20 13:34 Sublimaze IV Q10MIN PRN ANALGESIA Heparin Sodium (Porcine) 5,000 unit 04/06/20 22:00 04/11/20 21:07 Heparin SUB-Q 5,000 unit Q12HR NOEL Administration Hydromorphone HCl 0.25 mg 04/06/20 16:39 Dilaudid IV Q4H PRN Pain, Moderate (4-6) Hydrophilic Ointment 1 applic 04/06/20 13:34 Vaseline Lip Therapy TP Q2HR PRN Dry Lips Fentanyl Citrate 2,000 mcg in 100 mls @ 5.505 mls/hr 04/06/20 14:00 04/12/20 04:29 Fentanyl Drip Premix IV 0 mcg/kg/hr TITR NOEL 0 mls/hr Titration Protocol 1 MCG/KG/HR Nicardipine/Sodium Chloride 40 mg in 200 mls @ 25 mls/hr 04/06/20 17:00 04/06/20 23:23 Cardene Drip 40 Mg/200 Ml IV Infused TITR NOEL Titration Protocol 5 MG/HR Sodium Chloride 250 mls @ 10 mls/hr 04/07/20 10:03 04/09/20 05:38 Nacl 0.9% 250ml IV 10 mls/hr DIRECT PRN Administration FOR ABX Sodium Chloride 100 mls @ 999 mls/hr 04/07/20 17:00 Nacl 0.9% IV SPRING PRN Hypotension MEROPENEM/NS 1 GRAM/100 ML 1 gram in 100 mls @ 100 mls/hr 04/10/20 18:00 04/11/20 18:07 Merrem/Ns 1 Gram/100 Ml IV 100 mls/hr QPM NOEL Administration Protocol Insulin Glargine 10 units 04/09/20 17:00 04/11/20 18:08 Lantus SUB-Q 10 units Q24H NOEL Administration Insulin Human Regular 0 unit 04/09/20 18:00 04/12/20 05:54 Humulin R SUB-Q 1 unit Q6H [facility] Administration Protocol Labetalol HCl 10 mg 04/08/20 17:17 04/09/20 16:03 Labetalol IV 10 mg Q4H PRN Administration Blood Pressure Losartan Potassium 50 mg 04/09/20 18:00 04/11/20 12:51 Cozaar PO 50 mg QDAY NOEL Administration Multi-Ingred Cream/Lotion/Oil/Oint 1 applic 04/06/20 13:34 Artificial Tears Ophth Oint OU Q4HR PRN Dry Eye(s) Simple Syrup 15 ml 04/07/20 10:23 Simple Syrup FEEDTUBE PRN PRN Hypoglycemia Simple Syrup 30 ml 04/07/20 10:23 Simple Syrup FEEDTUBE PRN PRN Hypoglycemia Sodium Bicarbonate 325 mg 04/07/20 10:23 Sodium Bicarbonate FEEDTUBE PRN PRN For Clogged Feeding Tube Sodium Chloride 10 ml 04/06/20 22:00 04/11/20 21:09 Sodium Chloride Flush Syringe 10 Ml IV 10 ml BID NOEL Administration Sodium Chloride 10 ml 04/06/20 16:32 Sodium Chloride Flush Syringe 10 Ml IV PRN PRN LINE FLUSH Nutrition/Malnutrition Assess - Dietary Evaluation Nutrition/Malnutrition Findings: Nutrition Notes Start: 04/07/20 08:19 Freq: Status: Active Protocol: Document 04/11/20 12:05 AL (Rec: 04/11/20 12:18 AL [id number]) Co-Sign 04/11/20 12:05 MK Nutrition Notes Initial or Follow up Reassessment Current Diagnosis CKD (stage V CKD),Diabetes, Hypertension,Stroke Other Pertinent Diagnosis on HD, bilateral BKA, AMS Current Diet Nepro 1.8 at 45 mL/hr (goal rate) Labs/Tests BUN 48 Cr 6.1 Pertinent Medications Humulin Height 5 ft 5 in Weight 110.1 kg [place] Body Weight (kg) 56.81 BMI 40.4 Weight Status Morbidly Obese Subjective/Other Information F/U for TF tolerance. Patient was receiving HD at time of vist. TF is infusing at goal rate and patient is tolerating it well, per RN. Percent of energy/protein needs met: 100%/61% Burn Absent Trauma Absent GI Symptoms None Current % PO Negligible Minimum of two criteria No physical signs of malnutrition #1 Nutrition Diagnosis Inadequate oral intake Diagnosis Progress(for reassessment Continues documentation) Is patient on ventilator? Yes Is Patient Ambulatory and/or Out of Bed No REE-([facility]-confined to bed) 2063.820 Kcal/Kg value to use for calculation 16 Approximate Energy Requirements Using 1762 kcal/Kg Calculation Used for Recommendations Kcal/kg Additional Notes Protein Needs: up to 142 g (up to 2.5 g/kg IBW) Fluid Needs: 1 mL/kcal Nutrition Intervention Change Diet Order: Continue TF Nutrition Support: Nepro 1.8 at 45 mL/hr (goal rate) Flush 200 mL q4h Kcal 1,944 Protein (gm) 87 Fluid (mL) 785 Goal #1 Meet estimated energy and protein needs as best as possible via TF Anticipated Discharge Needs: Unable to determine at this time Follow-Up By: 04/13/20 Additional Comments F/U for TF tolerance
--- NOTE | 2020-04-12 09:10 | Progress Note ---
Assessment and Plan Impression: * End stage renal disease * Sepsis * Positive blood cx - likely contaminant --Blood cx: staph epi (05/29 bottles - Apr 06) * Acute hypoxic respiratory failure * Acute encephalopathy * UTI * Hx of COVID 19 --SARS Cov2 PCR negative Apr 07 * Metabolic acidosis Plan: * Continue hemodialysis on TTS schedule * UF as tolerated * Abx per ID * neurology notes reviewed * Vent management per CCM * Dose medications for renal function * AM labs Subjective Date of service: 04/12/20 Principal diagnosis: Ac on ch hypoxemic and hypercapnic resp failure; PUI COVID- 19 infxn; AMS Interval history: resting in bed, events noted Objective - Exam Narrative Exam: General appearance: well-developed, well-nourished EENT: ATNC, other (ETT in place) Respiratory: Present: Other (coarse BS) Cardiology: regular, S1S2 Gastrointestinal: obese Integumentary: warm and dry Musculoskeletal: other (Bilateral BKA) - Vital Signs Vital signs: Vital Signs - 12hr 04/11/20 04/11/20 04/11/20 21:16 21:30 21:46 Temperature Pulse Rate 95 H 99 H 98 H Pulse Rate [ From Monitor] Respiratory 11 L 11 L 13 Rate Blood Pressure 172/54 164/49 164/49 O2 Sat by Pulse 99 100 99 Oximetry 04/11/20 04/11/20 04/11/20 22:00 22:16 22:30 Temperature Pulse Rate 99 H 96 H 95 H Pulse Rate [ From Monitor] Respiratory 14 11 L 17 Rate Blood Pressure 164/49 164/49 149/48 O2 Sat by Pulse 99 98 98 Oximetry 04/11/20 04/11/20 04/11/20 22:46 22:58 23:00 Temperature Pulse Rate 88 85 84 Pulse Rate [ From Monitor] Respiratory 17 13 12 Rate Blood Pressure 167/50 167/50 166/49 O2 Sat by Pulse 97 98 97 Oximetry 04/11/20 04/11/20 04/11/20 23:16 23:30 23:46 Temperature Pulse Rate 88 87 83 Pulse Rate [ From Monitor] Respiratory 13 12 12 Rate Blood Pressure 166/49 189/66 189/66 O2 Sat by Pulse 99 97 97 Oximetry 04/12/20 04/12/20 04/12/20 00:00 00:16 00:30 Temperature 100.0 F H Pulse Rate 92 H 86 94 H Pulse Rate [ 92 H From Monitor] Respiratory 13 16 10 L Rate Blood Pressure 192/65 192/65 206/71 O2 Sat by Pulse 99 98 99 Oximetry 04/12/20 04/12/20 04/12/20 00:46 01:00 01:16 Temperature Pulse Rate 94 H 86 98 H Pulse Rate [ From Monitor] Respiratory 15 11 L 13 Rate Blood Pressure 192/65 176/54 198/70 O2 Sat by Pulse 99 99 99 Oximetry 04/12/20 04/12/20 04/12/20 01:30 01:46 02:00 Temperature Pulse Rate 95 H 94 H 89 Pulse Rate [ From Monitor] Respiratory 15 13 15 Rate Blood Pressure 197/68 197/68 182/72 O2 Sat by Pulse 99 100 Oximetry 04/12/20 04/12/20 04/12/20 02:16 02:30 02:46 Temperature Pulse Rate 84 85 90 Pulse Rate [ From Monitor] Respiratory 13 12 12 Rate Blood Pressure 182/72 162/60 162/60 O2 Sat by Pulse 99 98 97 Oximetry 04/12/20 04/12/20 04/12/20 03:00 03:16 03:30 Temperature Pulse Rate 82 86 77 Pulse Rate [ From Monitor] Respiratory 13 13 12 Rate Blood Pressure 171/57 171/57 171/57 O2 Sat by Pulse 100 98 94 Oximetry 04/12/20 04/12/20 04/12/20 03:46 04:00 04:04 Temperature 99.8 F H Pulse Rate 86 81 81 Pulse Rate [ 81 From Monitor] Respiratory 18 18 Rate Blood Pressure 132/44 132/44 164/54 O2 Sat by Pulse 98 98 99 Oximetry 04/12/20 04/12/20 04/12/20 04:16 04:30 04:46 Temperature Pulse Rate 87 81 93 H Pulse Rate [ From Monitor] Respiratory 15 13 13 Rate Blood Pressure 164/54 165/55 165/55 O2 Sat by Pulse 99 99 100 Oximetry 04/12/20 04/12/20 04/12/20 05:00 05:16 05:30 Temperature Pulse Rate 89 88 83 Pulse Rate [ From Monitor] Respiratory 9 L 10 L 10 L Rate Blood Pressure 188/66 188/66 168/52 O2 Sat by Pulse 100 100 100 Oximetry 04/12/20 04/12/20 04/12/20 05:46 06:00 06:16 Temperature Pulse Rate 79 77 77 Pulse Rate [ From Monitor] Respiratory 12 12 12 Rate Blood Pressure 168/52 106/34 106/34 O2 Sat by Pulse 98 96 97 Oximetry 04/12/20 04/12/20 04/12/20 06:30 06:46 07:00 Temperature Pulse Rate 76 84 79 Pulse Rate [ From Monitor] Respiratory 12 13 11 L Rate Blood Pressure 106/35 106/35 142/47 O2 Sat by Pulse 93 99 99 Oximetry 04/12/20 04/12/20 04/12/20 07:16 07:30 07:46 Temperature Pulse Rate 76 82 86 Pulse Rate [ From Monitor] Respiratory 12 13 13 Rate Blood Pressure 142/47 131/44 131/44 O2 Sat by Pulse 98 97 95 Oximetry 04/12/20 04/12/20 08:00 08:16 Temperature 98.6 F Pulse Rate 93 H 90 Pulse Rate [ From Monitor] Respiratory 12 13 Rate Blood Pressure 194/78 194/78 O2 Sat by Pulse 100 99 Oximetry - Lab 04/11/20 07:39 04/11/20 07:39 Most recent lab results ABG pH 7.313 pH Units (7.350-7.450) L 04/11/20 03:44 ABG pCO2 54.0 mm Hg 04/11/20 03:44 ABG pO2 73.4 mm Hg (80.0-90.0) L 04/11/20 03:44 ABG HCO3 26.7 mmol/L (20.0-26.0) H 04/11/20 03:44 ABG O2 Saturation 95.0 % (95.0-99.0) 04/11/20 03:44 Calcium 8.3 mg/dL (8.4-10.2) L 04/11/20 07:39 Magnesium 2.50 mg/dL (1.7-2.3) H 04/06/20 14:30 Medications & Allergies - Medications Allergies/Adverse Reactions: Allergies carrot Allergy (Verified 07/28/19 12:30) Hives erythromycin base Allergy (Verified 07/30/19 11:26) Hives latex Allergy (Verified 02/18/19 13:20) Rash peas Allergy (Verified 12/20/19 12:37) Hives vancomycin Allergy (Verified 12/31/19 15:46) Hives Home Medications: Home Medications Medication Instructions Recorded Confirmed Last Taken Type Aripiprazole 5 mg PO DAILY 02/18/19 04/06/20 02/17/19 History Benadryl CAP 25 mg PO Q8H PRN 02/18/19 04/06/20 02/17/19 History Calcium Acetate 667 mg PO TIDWM 02/18/19 04/06/20 02/17/19 History Carvedilol 6.25 mg PO Q12H 02/18/19 04/06/20 02/17/19 History Colace CAP 100 mg PO Q12H PRN 02/18/19 04/06/20 02/17/19 History Esomeprazole Magnesium 40 mg PO QDAC 02/18/19 04/06/20 02/17/19 History HumaLOG 10 units SUB-Q TIDWM 02/18/19 04/06/20 02/17/19 History Insulin Detemir (Nf) [Levemir See Protocol SQ QHS 02/18/19 04/06/20 02/17/19 History Flextouch (Nf)] Losartan Potassium 50 mg PO DAILY 02/18/19 04/06/20 02/17/19 History Lyrica 75 mg PO Q12H 02/18/19 04/06/20 02/17/19 History Melatonin 6 mg PO QHS 02/18/19 04/06/20 02/17/19 History Senna 17.2 mg PO QHS PRN 02/18/19 04/06/20 02/17/19 History Venlafaxine HCl [Venlafaxine HCl 150 mg PO QDAC 02/18/19 04/06/20 02/17/19 History ER] Vitamin C 250 mg PO DAILY 02/18/19 04/06/20 02/17/19 History ZyrTEC 10mg cap 10 mg PO DAILY 02/18/19 04/06/20 02/17/19 History Calcium Acetate [Phoslo] 667 mg PO TIDWM capsule 12/22/19 04/06/20 Unknown Rx Fe Fumarate/FA/Mv, Min Comb#15 1 each PO QDAY capsule 12/22/19 04/06/20 Unknown Rx [Hemocyte Plus] Albuterol Mdi (or & Nicu Only) 2.5 puff IH Q4HRT PRN inha 01/12/20 04/06/20 Unknown Rx [ProAir HFA Inhaler] dexAMETHasone [Decadron] 6 mg PO Q12HR #10 tablet 01/12/20 04/06/20 Unknown Rx oxyCODONE 5 mg PO Q6H PRN #10 01/12/20 04/06/20 Unknown Rx Active Medications: Generic Name Dose Route Start Last Admin Trade Name Freq PRN Reason Stop Dose Admin Acetaminophen 650 mg 04/06/20 16:39 Tylenol PO Q6H PRN Pain, Mild (1-3) Lipase/Protease/Amylase 1 each 04/07/20 10:23 Pancreaze 10,500 Unit FEEDTUBE PRN PRN For Clogged Feeding Tube Carvedilol 6.25 mg 04/09/20 22:00 04/11/20 21:07 Coreg PO 6.25 mg BID NOEL Administration Dextrose 50 ml 04/09/20 16:30 D50w (25gm) Syringe IV Q30MIN PRN Hypoglycemia Protocol Famotidine 20 mg 04/07/20 10:00 04/11/20 12:50 Pepcid PO 20 mg QDAY NOEL Administration Fentanyl 50 mcg 04/06/20 13:34 Sublimaze IV Q10MIN PRN ANALGESIA Heparin Sodium (Porcine) 5,000 unit 04/06/20 22:00 04/11/20 21:07 Heparin SUB-Q 5,000 unit Q12HR NOEL Administration Hydromorphone HCl 0.25 mg 04/06/20 16:39 Dilaudid IV Q4H PRN Pain, Moderate (4-6) Hydrophilic Ointment 1 applic 04/06/20 13:34 Vaseline Lip Therapy TP Q2HR PRN Dry Lips Fentanyl Citrate 2,000 mcg in 100 mls @ 5.505 mls/hr 04/06/20 14:00 04/12/20 04:29 Fentanyl Drip Premix IV 0 mcg/kg/hr TITR NOEL 0 mls/hr Titration Protocol 1 MCG/KG/HR Nicardipine/Sodium Chloride 40 mg in 200 mls @ 25 mls/hr 04/06/20 17:00 04/06/20 23:23 Cardene Drip 40 Mg/200 Ml IV Infused TITR NOEL Titration Protocol 5 MG/HR Sodium Chloride 250 mls @ 10 mls/hr 04/07/20 10:03 04/09/20 05:38 Nacl 0.9% 250ml IV 10 mls/hr DIRECT PRN Administration FOR ABX Sodium Chloride 100 mls @ 999 mls/hr 04/07/20 17:00 Nacl 0.9% IV SPRING PRN Hypotension MEROPENEM/NS 1 GRAM/100 ML 1 gram in 100 mls @ 100 mls/hr 04/10/20 18:00 04/11/20 18:07 Merrem/Ns 1 Gram/100 Ml IV 100 mls/hr QPM NEOL Administration Protocol Insulin Glargine 10 units 04/09/20 17:00 04/11/20 18:08 Lantus SUB-Q 10 units Q24H NOEL Administration Insulin Human Regular 0 unit 04/09/20 18:00 04/12/20 05:54 Humulin R SUB-Q 1 unit Q6H NOEL Administration Protocol Labetalol HCl 10 mg 04/08/20 17:17 04/09/20 16:03 Labetalol IV 10 mg Q4H PRN Administration Blood Pressure Losartan Potassium 50 mg 04/09/20 18:00 04/11/20 12:51 Cozaar PO 50 mg QDAY NOEL Administration Multi-Ingred Cream/Lotion/Oil/Oint 1 applic 04/06/20 13:34 Artificial Tears Ophth Oint OU Q4HR PRN Dry Eye(s) Simple Syrup 15 ml 04/07/20 10:23 Simple Syrup FEEDTUBE PRN PRN Hypoglycemia Simple Syrup 30 ml 04/07/20 10:23 Simple Syrup FEEDTUBE PRN PRN Hypoglycemia Sodium Bicarbonate 325 mg 04/07/20 10:23 Sodium Bicarbonate FEEDTUBE PRN PRN For Clogged Feeding Tube Sodium Chloride 10 ml 04/06/20 22:00 04/11/20 21:09 Sodium Chloride Flush Syringe 10 Ml IV 10 ml BID NOEL Administration Sodium Chloride 10 ml 04/06/20 16:32 Sodium Chloride Flush Syringe 10 Ml IV PRN PRN LINE FLUSH
[2020-04-12 09:18] LABS: Calcium 8.7 mg/dL (8.4-10.2)
[2020-04-12] MEDS: LOSARTAN 50 MG TAB PO SCH (09:46)
[2020-04-12] MEDS: HEPARIN 5,000 UNIT/1 ML VIAL SUB-Q SCH (09:46)
[2020-04-12] MEDS: carvediloL 6.25 MG TAB PO SCH (09:46)
[2020-04-12] MEDS: FAMOTIDINE 20 MG TAB PO SCH (09:47)
--- NOTE | 2020-04-12 11:08 | Progress Note ---
Assessment and Plan Cultures: Blood culture 04/06/2020: 1 out of 4 bottles coag negative staph Urine culture 04/06/2020 <10,000 mixed bacteria Respiratory culture 04/06/2020 poor specimen SARS-CoV-2 PCR negative 04/07/2020 tracheal aspirate culture: Usual respiratory sarah Assessment: 49 years old female with history of asthma, hypertension, end-stage renal disease on hemodialysis, diabetes mellitus, bipolar disorder, morbid obesity, CVA, bilateral BKA's recent COVID-19 infection requiring intubation treated with dexamethasone in December 2019 [facility], resident of a [facility], admitted on 04/06/2020 secondary to be found unresponsiveness after hemodialysis: #Severe sepsis: Present on admission with hypothermia, leukocytosis, altered mental status, likely due to bilateral pneumonia, bacteremia and UTI. #Bilateral pneumonia: Aspiration pneumonia/HAP. Of note, patient was recently admitted at [facility] in January 2020 requiring intubation for COVID-19 pneumonia. COVID-19 pneumonia was treated with dexamethasone. #Coag negative staph bacteremia: 1/4 bottles, consistent with contaminant. #UTI: Bains catheter with purulent urine. #Acute hypoxemic respiratory failure: intubated, on the vent #End-stage renal disease on hemodialysis: renally dose abx. #Extensive Candidal intertrigo in groin and vagina: treated with fluconazole. #Vancomycin allergy ? Causing hives. I reviewed records from [facility] and there is no documentation of vancomycin allergy, patient initially received vancomycin #Leucocytosis: Patient has chronic leukocytosis, labs from here and [facility] in the past were reviewed. Recs: continue IV meropenem, D3 of 5 Patient has chronic leukocytosis based on lab review of previous admissions Lloyd Beltran MD, FACP [facility] O: [phone] F: [phone] Subjective Date of service: 04/12/20 Principal diagnosis: Ac on ch hypoxemic and hypercapnic resp failure; PUI COVID- 19 infxn; AMS Interval history: Low grade fever. Remains intubated, on the vent. Objective - Exam Narrative Exam: Physical Exam: Constitutional: sedated, intubated, on the vent Head, Ears, Nose: Normocephalic, atraumatic. External ears, nose normal Eyes: Conjunctivae/corneas clear. No icterus. No ptosis. Neck: intubated Oral: intubated Cardiovascular: S1, S2 + Respiratory: AE fair bilaterally and equal GI: Soft, bowel sounds + Musculoskeletal: Bilateral BKA. Right chest PermCath Skin: No rash or abscess Hem/Lymphatic: No palpable cervical or supraclavicular nodes. No lymphangitis Psych: no agitation Neurological: sedated, intubated, on the vent, exam limited - Constitutional Vitals: Vital Signs Temp Pulse Resp BP Pulse Ox 98.6 F 84 13 146/54 99 04/12/20 08:00 04/12/20 09:46 04/12/20 08:16 04/12/20 09:46 04/12/20 08:16 Temperature -Last 24 Hours Temperature 98.6 F Temperature 99.8 F Temperature 98.4 F Temperature 100.0 F Temperature 99.7 F Temperature 99.0 F Temperature 98.0 F - Labs CBC & Chem 7: 04/12/20 08:14 04/12/20 08:14 Labs: Abnormal lab results 04/11/20 04/11/20 04/11/20 Range/Units 07:39 12:25 19:02 WBC (4.5-11.0) K/mm3 RBC (3.65-5.03) M/mm3 Hgb (10.1-14.3) gm/dl Hct (30.3-42.9) % RDW (13.2-15.2) % Seg Neuts % (Manual) 83.0 H (40.0-70.0) % Lymphocytes % (Manual) 10.0 L (13.4-35.0) % Seg Neutrophils # Man 22.3 H (1.8-7.7) K/mm3 Monocytes # (Manual) 1.1 H (0.0-0.8) K/mm3 Eosinophils # (Manual) 0.5 H (0.0-0.4) K/mm3 Potassium (3.6-5.0) mmol/L BUN (7-17) mg/dL Creatinine (0.6-1.2) mg/dL Glucose (65-100) mg/dL POC Glucose 175 H 175 H (70-105) mg/dL 04/12/20 04/12/20 04/12/20 Range/Units 00:02 05:51 08:14 WBC 28.0 H (4.5-11.0) K/mm3 RBC 3.29 L (3.65-5.03) M/mm3 Hgb 9.5 L (10.1-14.3) gm/dl Hct 29.1 L (30.3-42.9) % RDW 16.9 H (13.2-15.2) % Seg Neuts % (Manual) (40.0-70.0) % Lymphocytes % (Manual) (13.4-35.0) % Seg Neutrophils # Man (1.8-7.7) K/mm3 Monocytes # (Manual) (0.0-0.8) K/mm3 Eosinophils # (Manual) (0.0-0.4) K/mm3 Potassium (3.6-5.0) mmol/L BUN (7-17) mg/dL Creatinine (0.6-1.2) mg/dL Glucose (65-100) mg/dL POC Glucose 146 H 151 H (70-105) mg/dL 04/12/20 Range/Units 08:14 WBC (4.5-11.0) K/mm3 RBC (3.65-5.03) M/mm3 Hgb (10.1-14.3) gm/dl Hct (30.3-42.9) % RDW (13.2-15.2) % Seg Neuts % (Manual) (40.0-70.0) % Lymphocytes % (Manual) (13.4-35.0) % Seg Neutrophils # Man (1.8-7.7) K/mm3 Monocytes # (Manual) (0.0-0.8) K/mm3 Eosinophils # (Manual) (0.0-0.4) K/mm3 Potassium 3.3 L (3.6-5.0) mmol/L BUN 32 H (7-17) mg/dL Creatinine 4.3 H (0.6-1.2) mg/dL Glucose 188 H (65-100) mg/dL POC Glucose (70-105) mg/dL
[2020-04-12 12:54] LABS: Anisocytosis 1+; Basophils % (Manual) 0 % (0.0-1.8); Myelocytes # (Manual) 0.3 K/mm3; Total Cells Counted 100
[2020-04-12 12:55] LABS: Hypochromasia Few; Platelet Estimate Consistent w Auto; Stomatocytes Few
[2020-04-12] MEDS ORDERED: POTASSIUM CHLORIDE 20 MEQ PACKET FEEDTUBE SCH (12:59)
--- NOTE | 2020-04-12 13:26 | Progress Note ---
Assessment and Plan Acute on chronic hypoxemic and hypercapnic respiratory failure. Coronavirus-19 infection. Acute encephalopathy. Bibasilar atelectasis. End-stage renal disease, on dialysis. Morbid obesity. History of a cerebrovascular accident. Diabetes type 2. History of chronic obstructive pulmonary disease. History of anemia. - neurology evaluation ordered - follow EEG report - continue Daily SAT and SBT assessment as tolerated - may be headed for a tracheostomy if AMS is persistent, hopefully encephalopathy improves as she gets better - continue care as below otherwise; - continue home Losartan & Carvedilol - continue prn IV Labetalol - keep set rate at 12/min - continue to wean supplemental oxygen for target O2 sat's > 90% acutely - VAP bundle addressed - continue lung protective strategies - continue bronchodilators with pulmonary hygiene per RT - wean per pulmonary driven protocols otherwise - continue accuchecks with glycemic control per SSI (While critically ill target blood glucose of 140-180 mg/dL; avoid hypoglycemia) - continue fentanyl for sedation / analgesia - sedation prn for target RASS 0 to -1 - avoid nephrotoxins, renally dose all medications - continue to avoid benzodiazepine's, reduce the possibility of delirium - complete AB's per ID rec's - prn analgesia per CPOT score - Maintenance of sleep-wake cycle, avoid delirium - continue enteral nutritional support at goal rate as tolerated - G.I. & VTE prophylaxis - PT/OT/ROM exercises - continue mobility protocols for pressure ulcer prophylaxis - Monitor hemodynamics closely - continue other care per attending / other consultants - discharge planning ongoing concurrently .... Re-evaluate in am & prn CONDITION: CRITICAL PROGNOSIS: GUARDED CODE STATUS: FULL CODE The high probability of a clinically significant, sudden or life-threatening de terioration of the [respiratory, cardiovascular, renal & neurologic] system(s) required my full and direct attention, intervention and personal management. The aggregate critical care time was [32] minutes without overlap. Time includes spent on; [x] Data Review and interpretation [x] Patient assessment and monitoring of vital signs [x] Documentation [x] Medication orders and management Subjective Date of service: 04/12/20 Principal diagnosis: Ac on ch hypoxemic and hypercapnic resp failure; PUI COVID- 19 infxn; AMS Interval history: Patient is seen today for: Acute on chronic hypoxemic and hypercapnic resp failure; PUI Coronavirus-19 infection; Acute encephalopathy; ESRD; Morbid obesity; DM II; AE-COPD Seen and examined at bedside; 24hour events reviewed; nursing and respiratory care staff consulted; no adverse overnight events reported to me; resting peacefully in bed; remains on MVS; weaning tenuously today; lethargic; EEG ongoing; no emesis or overt aspiration Objective Vital Signs - 12hr 04/12/20 04/12/20 04/12/20 01:30 01:46 02:00 Temperature Pulse Rate 95 H 94 H 89 Pulse Rate [ From Monitor] Respiratory 15 13 15 Rate Blood Pressure 197/68 197/68 182/72 O2 Sat by Pulse 99 100 Oximetry 04/12/20 04/12/20 04/12/20 02:16 02:30 02:46 Temperature Pulse Rate 84 85 90 Pulse Rate [ From Monitor] Respiratory 13 12 12 Rate Blood Pressure 182/72 162/60 162/60 O2 Sat by Pulse 99 98 97 Oximetry 04/12/20 04/12/20 04/12/20 03:00 03:16 03:30 Temperature Pulse Rate 82 86 77 Pulse Rate [ From Monitor] Respiratory 13 13 12 Rate Blood Pressure 171/57 171/57 171/57 O2 Sat by Pulse 100 98 94 Oximetry 04/12/20 04/12/20 04/12/20 03:46 04:00 04:04 Temperature 99.8 F H Pulse Rate 86 81 81 Pulse Rate [ 81 From Monitor] Respiratory 18 18 Rate Blood Pressure 132/44 132/44 164/54 O2 Sat by Pulse 98 98 99 Oximetry 04/12/20 04/12/20 04/12/20 04:16 04:30 04:46 Temperature Pulse Rate 87 81 93 H Pulse Rate [ From Monitor] Respiratory 15 13 Rate Blood Pressure 164/54 165/55 165/55 O2 Sat by Pulse 99 99 100 Oximetry 04/12/20 04/12/20 04/12/20 05:00 05:16 05:30 Temperature Pulse Rate 89 88 83 Pulse Rate [ From Monitor] Respiratory 9 L 10 L 10 L Rate Blood Pressure 188/66 188/66 168/52 O2 Sat by Pulse 100 100 100 Oximetry 04/12/20 04/12/20 04/12/20 05:46 06:00 06:16 Temperature Pulse Rate 79 77 77 Pulse Rate [ From Monitor] Respiratory 12 12 12 Rate Blood Pressure 168/52 106/34 106/34 O2 Sat by Pulse 98 96 97 Oximetry 04/12/20 04/12/20 04/12/20 06:30 06:46 07:00 Temperature Pulse Rate 76 84 79 Pulse Rate [ From Monitor] Respiratory 12 13 11 L Rate Blood Pressure 106/35 106/35 142/47 O2 Sat by Pulse 93 99 99 Oximetry 04/12/20 04/12/20 04/12/20 07:16 07:30 07:46 Temperature Pulse Rate 76 82 86 Pulse Rate [ From Monitor] Respiratory 12 13 13 Rate Blood Pressure 142/47 131/44 131/44 O2 Sat by Pulse 98 97 95 Oximetry 04/12/20 04/12/20 04/12/20 08:00 08:16 09:46 Temperature 98.6 F Pulse Rate 93 H 90 80 Pulse Rate [ 82 From Monitor] Respiratory 18 13 Rate Blood Pressure 194/78 194/78 146/54 O2 Sat by Pulse 98 99 Oximetry 04/12/20 04/12/20 11:34 12:53 Temperature Pulse Rate 84 82 Pulse Rate [ From Monitor] Respiratory 25 H Rate Blood Pressure 146/54 188/103 O2 Sat by Pulse 99 Oximetry Constitutional: appears uncomfortable, other (middle aged obese female with mild ventilator dys-synchrony) Eyes: non-icteric ENT: oropharynx moist, other (ETT 23 cm PARRISH) Neck: supple, no lymphadenopathy, no JVD Effort: mildly labored Ascultation: Bilateral: diminished breath sounds, rhonchi Percussion: Bilateral: not dull Cardiovascular: regular rate and rhythm Gastrointestinal: normoactive bowel sounds, soft, non-tender, non-distended (protuberant) Integumentary: erythema (right BKA stump) Extremities: no cyanosis, no edema, no ischemia or petechiae Neurologic: non-focal exam (grossly), pupils equal and round, unable to assess Psychiatric: other (unable to assess re: AMS) CBC and BMP: 04/12/20 08:14 04/13/20 09:09 ABG, PT/INR, D-dimer: ABG ABG pH 7.313 pH Units (7.350-7.450) L 04/11/20 03:44 POC ABG pCO2 48.2 mmHg (32.0-48.0) H 04/10/20 03:15 ABG pCO2 54.0 mm Hg 04/11/20 03:44 POC ABG pO2 88.5 mmHg (83-108) 04/10/20 03:15 ABG pO2 73.4 mm Hg (80.0-90.0) L 04/11/20 03:44 POC ABG HCO3 25.6 04/10/20 03:15 ABG O2 Saturation 95.0 % (95.0-99.0) 04/11/20 03:44 PT/INR, D-dimer PT 13.8 Sec. (12.2-14.9) 04/06/20 14:30 INR 1.04 (0.87-1.13) 04/06/20 14:30 D-Dimer 1063.66 ng/mlDDU (0-234) H 04/07/20 09:34 Abnormal lab findings: Abnormal Labs 04/06/20 04/06/20 04/06/20 13:34 14:30 14:30 WBC 19.2 H RBC Hgb Hct RDW 17.8 H Seg Neuts % (Manual) 90.0 H Lymphocytes % (Manual) 4.0 L Basophils % (Manual) Seg Neutrophils # Man 17.3 H Lymphocytes # (Manual) 0.8 L Monocytes # (Manual) Eosinophils # (Manual) Basophils # (Manual) D-Dimer ABG pH POC ABG pCO2 POC ABG pO2 ABG pO2 ABG HCO3 ABG Base Excess ABG Hemoglobin ABG Sodium ABG Chloride ABG Glucose Oxyhemoglobin Sodium Potassium 5.2 H Chloride Carbon Dioxide 17 L BUN 53 H Creatinine 7.8 H Glucose 144 H POC Glucose Calcium Magnesium Ferritin Alkaline Phosphatase 738 H Lactate Dehydrogenase Total Creatine Kinase 23 L Troponin T 0.224 H* C-Reactive Protein Albumin 3.1 L Triglycerides 342 H Cholesterol 223 H HDL Cholesterol 35 L Arterial Blood Glucose Arterial Blood Ionized Calcium Urine WBC (Auto) > 182.0 H Salicylates Acetaminophen Hepatitis C Antibody 04/06/20 04/06/20 04/06/20 14:30 14:30 14:30 WBC RBC Hgb Hct RDW Seg Neuts % (Manual) Lymphocytes % (Manual) Basophils % (Manual) Seg Neutrophils # Man Lymphocytes # (Manual) Monocytes # (Manual) Eosinophils # (Manual) Basophils # (Manual) D-Dimer ABG pH POC ABG pCO2 POC ABG pO2 ABG pO2 ABG HCO3 ABG Base Excess ABG Hemoglobin ABG Sodium ABG Chloride ABG Glucose Oxyhemoglobin Sodium Potassium Chloride Carbon Dioxide BUN Creatinine Glucose POC Glucose Calcium Magnesium 2.50 H Ferritin Alkaline Phosphatase Lactate Dehydrogenase Total Creatine Kinase 24 L Troponin T C-Reactive Protein Albumin Triglycerides Cholesterol HDL Cholesterol Arterial Blood Glucose Arterial Blood Ionized Calcium Urine WBC (Auto) Salicylates < 0.3 L Acetaminophen 5.0 L Hepatitis C Antibody 04/06/20 04/06/20 04/07/20 14:39 20:00 00:48 WBC RBC Hgb Hct RDW Seg Neuts % (Manual) Lymphocytes % (Manual) Basophils % (Manual) Seg Neutrophils # Man Lymphocytes # (Manual) Monocytes # (Manual) Eosinophils # (Manual) Basophils # (Manual) D-Dimer ABG pH 7.281 L 7.306 L POC ABG pCO2 POC ABG pO2 78.0 L ABG pO2 133.8 H ABG HCO3 18.3 L ABG Base Excess -7.8 L ABG Hemoglobin 10.8 L 10.8 L ABG Sodium ABG Chloride 108.0 H ABG Glucose Oxyhemoglobin Sodium Potassium Chloride Carbon Dioxide BUN Creatinine Glucose POC Glucose 69 L Calcium Magnesium Ferritin Alkaline Phosphatase Lactate Dehydrogenase Total Creatine Kinase Troponin T C-Reactive Protein Albumin Triglycerides Cholesterol HDL Cholesterol Arterial Blood Glucose Arterial Blood Ionized Calcium Urine WBC (Auto) Salicylates Acetaminophen Hepatitis C Antibody 04/07/20 04/07/20 04/07/20 09:34 09:34 09:34 WBC RBC Hgb Hct RDW Seg Neuts % (Manual) Lymphocytes % (Manual) Basophils % (Manual) Seg Neutrophils # Man Lymphocytes # (Manual) Monocytes # (Manual) Eosinophils # (Manual) Basophils # (Manual) D-Dimer 1063.66 H ABG pH POC ABG pCO2 POC ABG pO2 ABG pO2 ABG HCO3 ABG Base Excess ABG Hemoglobin ABG Sodium ABG Chloride ABG Glucose Oxyhemoglobin Sodium Potassium Chloride Carbon Dioxide BUN Creatinine Glucose POC Glucose Calcium Magnesium Ferritin 743.0 H Alkaline Phosphatase Lactate Dehydrogenase 195 H Total Creatine Kinase Troponin T C-Reactive Protein 7.50 H Albumin Triglycerides Cholesterol HDL Cholesterol Arterial Blood Glucose Arterial Blood Ionized Calcium Urine WBC (Auto) Salicylates Acetaminophen Hepatitis C Antibody 04/07/20 04/07/20 04/07/20 10:01 16:38 23:51 WBC RBC Hgb Hct RDW Seg Neuts % (Manual) Lymphocytes % (Manual) Basophils % (Manual) Seg Neutrophils # Man Lymphocytes # (Manual) Monocytes # (Manual) Eosinophils # (Manual) Basophils # (Manual) D-Dimer ABG pH POC ABG pCO2 POC ABG pO2 79.8 L ABG pO2 ABG HCO3 ABG Base Excess ABG Hemoglobin 10.3 L ABG Sodium ABG Chloride 109.0 H ABG Glucose Oxyhemoglobin Sodium Potassium Chloride Carbon Dioxide BUN Creatinine Glucose POC Glucose 117 H Calcium Magnesium Ferritin Alkaline Phosphatase Lactate Dehydrogenase Total Creatine Kinase Troponin T C-Reactive Protein Albumin Triglycerides Cholesterol HDL Cholesterol Arterial Blood Glucose Arterial Blood Ionized Calcium 4.5 L Urine WBC (Auto) Salicylates Acetaminophen Hepatitis C Antibody Reactive A 04/08/20 04/08/20 04/08/20 04:58 12:48 17:03 WBC RBC Hgb Hct RDW Seg Neuts % (Manual) Lymphocytes % (Manual) Basophils % (Manual) Seg Neutrophils # Man Lymphocytes # (Manual) Monocytes # (Manual) Eosinophils # (Manual) Basophils # (Manual) D-Dimer ABG pH POC ABG pCO2 POC ABG pO2 ABG pO2 ABG HCO3 ABG Base Excess ABG Hemoglobin ABG Sodium ABG Chloride ABG Glucose Oxyhemoglobin Sodium Potassium Chloride Carbon Dioxide BUN Creatinine Glucose POC Glucose 129 H 155 H 201 H Calcium Magnesium Ferritin Alkaline Phosphatase Lactate Dehydrogenase Total Creatine Kinase Troponin T C-Reactive Protein Albumin Triglycerides Cholesterol HDL Cholesterol Arterial Blood Glucose Arterial Blood Ionized Calcium Urine WBC (Auto) Salicylates Acetaminophen Hepatitis C Antibody 04/08/20 04/08/20 04/09/20 23:49 Unknown 05:31 WBC RBC Hgb Hct RDW Seg Neuts % (Manual) Lymphocytes % (Manual) Basophils % (Manual) Seg Neutrophils # Man Lymphocytes # (Manual) Monocytes # (Manual) Eosinophils # (Manual) Basophils # (Manual) D-Dimer ABG pH 7.349 L POC ABG pCO2 POC ABG pO2 ABG pO2 117.3 H ABG HCO3 ABG Base Excess ABG Hemoglobin 7.4 L ABG Sodium ABG Chloride ABG Glucose Oxyhemoglobin Sodium Potassium Chloride Carbon Dioxide BUN Creatinine Glucose POC Glucose 178 H 248 H Calcium Magnesium Ferritin Alkaline Phosphatase Lactate Dehydrogenase Total Creatine Kinase Troponin T C-Reactive Protein Albumin Triglycerides Cholesterol HDL Cholesterol Arterial Blood Glucose Arterial Blood Ionized Calcium Urine WBC (Auto) Salicylates Acetaminophen Hepatitis C Antibody 04/09/20 04/09/20 04/09/20 11:39 17:35 Unknown WBC RBC Hgb Hct RDW Seg Neuts % (Manual) Lymphocytes % (Manual) Basophils % (Manual) Seg Neutrophils # Man Lymphocytes # (Manual) Monocytes # (Manual) Eosinophils # (Manual) Basophils # (Manual) D-Dimer ABG pH POC ABG pCO2 51.6 H POC ABG pO2 ABG pO2 ABG HCO3 ABG Base Excess ABG Hemoglobin 11.4 L ABG Sodium 130.1 L ABG Chloride ABG Glucose 249 H Oxyhemoglobin Sodium Potassium Chloride Carbon Dioxide BUN Creatinine Glucose POC Glucose 319 H 254 H Calcium Magnesium Ferritin Alkaline Phosphatase Lactate Dehydrogenase Total Creatine Kinase Troponin T C-Reactive Protein Albumin Triglycerides Cholesterol HDL Cholesterol Arterial Blood Glucose 249 H Arterial Blood Ionized Calcium 4.1 L Urine WBC (Auto) Salicylates Acetaminophen Hepatitis C Antibody 04/10/20 04/10/20 04/10/20 00:00 03:15 05:49 WBC RBC Hgb Hct RDW Seg Neuts % (Manual) Lymphocytes % (Manual) Basophils % (Manual) Seg Neutrophils # Man Lymphocytes # (Manual) Monocytes # (Manual) Eosinophils # (Manual) Basophils # (Manual) D-Dimer ABG pH POC ABG pCO2 48.2 H POC ABG pO2 ABG pO2 ABG HCO3 ABG Base Excess ABG Hemoglobin 9.9 L ABG Sodium 135.4 L ABG Chloride ABG Glucose 215 H Oxyhemoglobin Sodium Potassium Chloride Carbon Dioxide BUN Creatinine Glucose POC Glucose 194 H 221 H Calcium Magnesium Ferritin Alkaline Phosphatase Lactate Dehydrogenase Total Creatine Kinase Troponin T C-Reactive Protein Albumin Triglycerides Cholesterol HDL Cholesterol Arterial Blood Glucose 215 H Arterial Blood Ionized Calcium 4.5 L Urine WBC (Auto) Salicylates Acetaminophen Hepatitis C Antibody 04/10/20 04/10/20 04/10/20 08:18 08:18 12:22 WBC 28.9 H RBC 3.38 L Hgb 9.5 L Hct 30.1 L RDW 16.9 H Seg Neuts % (Manual) 87.0 H Lymphocytes % (Manual) 9.0 L Basophils % (Manual) 2.0 H Seg Neutrophils # Man 25.1 H Lymphocytes # (Manual) Monocytes # (Manual) Eosinophils # (Manual) Basophils # (Manual) 0.6 H D-Dimer ABG pH POC ABG pCO2 POC ABG pO2 ABG pO2 ABG HCO3 ABG Base Excess ABG Hemoglobin ABG Sodium ABG Chloride ABG Glucose Oxyhemoglobin Sodium 134 L Potassium 3.5 L D Chloride 94.9 L Carbon Dioxide BUN 38 H Creatinine 5.5 H Glucose 230 H POC Glucose 218 H Calcium Magnesium Ferritin Alkaline Phosphatase Lactate Dehydrogenase Total Creatine Kinase Troponin T C-Reactive Protein Albumin Triglycerides Cholesterol HDL Cholesterol Arterial Blood Glucose Arterial Blood Ionized Calcium Urine WBC (Auto) Salicylates Acetaminophen Hepatitis C Antibody 04/10/20 04/10/20 04/10/20 17:27 18:08 23:29 WBC RBC Hgb Hct RDW Seg Neuts % (Manual) Lymphocytes % (Manual) Basophils % (Manual) Seg Neutrophils # Man Lymphocytes # (Manual) Monocytes # (Manual) Eosinophils # (Manual) Basophils # (Manual) D-Dimer ABG pH POC ABG pCO2 POC ABG pO2 ABG pO2 ABG HCO3 ABG Base Excess ABG Hemoglobin ABG Sodium ABG Chloride ABG Glucose Oxyhemoglobin Sodium Potassium Chloride Carbon Dioxide BUN Creatinine Glucose POC Glucose 218 H 223 H 166 H Calcium Magnesium Ferritin Alkaline Phosphatase Lactate Dehydrogenase Total Creatine Kinase Troponin T C-Reactive Protein Albumin Triglycerides Cholesterol HDL Cholesterol Arterial Blood Glucose Arterial Blood Ionized Calcium Urine WBC (Auto) Salicylates Acetaminophen Hepatitis C Antibody 04/11/20 04/11/20 04/11/20 03:44 05:28 07:39 WBC 26.9 H RBC 3.32 L Hgb 9.4 L Hct 29.5 L RDW 17.2 H Seg Neuts % (Manual) 83.0 H Lymphocytes % (Manual) 10.0 L Basophils % (Manual) Seg Neutrophils # Man 22.3 H Lymphocytes # (Manual) Monocytes # (Manual) 1.1 H Eosinophils # (Manual) 0.5 H Basophils # (Manual) D-Dimer ABG pH 7.313 L POC ABG pCO2 POC ABG pO2 ABG pO2 73.4 L ABG HCO3 26.7 H ABG Base Excess ABG Hemoglobin 11.0 L ABG Sodium ABG Chloride ABG Glucose Oxyhemoglobin 92.8 L Sodium Potassium Chloride Carbon Dioxide BUN Creatinine Glucose POC Glucose 164 H Calcium Magnesium Ferritin Alkaline Phosphatase Lactate Dehydrogenase Total Creatine Kinase Troponin T C-Reactive Protein Albumin Triglycerides Cholesterol HDL Cholesterol Arterial Blood Glucose Arterial Blood Ionized Calcium Urine WBC (Auto) Salicylates Acetaminophen Hepatitis C Antibody 04/11/20 04/11/20 04/11/20 07:39 12:25 19:02 WBC RBC Hgb Hct RDW Seg Neuts % (Manual) Lymphocytes % (Manual) Basophils % (Manual) Seg Neutrophils # Man Lymphocytes # (Manual) Monocytes # (Manual) Eosinophils # (Manual) Basophils # (Manual) D-Dimer ABG pH POC ABG pCO2 POC ABG pO2 ABG pO2 ABG HCO3 ABG Base Excess ABG Hemoglobin ABG Sodium ABG Chloride ABG Glucose Oxyhemoglobin Sodium Potassium Chloride Carbon Dioxide BUN 48 H Creatinine 6.1 H Glucose 122 H POC Glucose 175 H 175 H Calcium 8.3 L Magnesium Ferritin Alkaline Phosphatase Lactate Dehydrogenase Total Creatine Kinase Troponin T C-Reactive Protein Albumin Triglycerides Cholesterol HDL Cholesterol Arterial Blood Glucose Arterial Blood Ionized Calcium Urine WBC (Auto) Salicylates Acetaminophen Hepatitis C Antibody 04/12/20 04/12/20 04/12/20 00:02 05:51 08:14 WBC 28.0 H RBC 3.29 L Hgb 9.5 L Hct 29.1 L RDW 16.9 H Seg Neuts % (Manual) 88.0 H Lymphocytes % (Manual) 7.0 L Basophils % (Manual) Seg Neutrophils # Man 24.6 H Lymphocytes # (Manual) Monocytes # (Manual) Eosinophils # (Manual) 0.6 H Basophils # (Manual) D-Dimer ABG pH POC ABG pCO2 POC ABG pO2 ABG pO2 ABG HCO3 ABG Base Excess ABG Hemoglobin ABG Sodium ABG Chloride ABG Glucose Oxyhemoglobin Sodium Potassium Chloride Carbon Dioxide BUN Creatinine Glucose POC Glucose 146 H 151 H Calcium Magnesium Ferritin Alkaline Phosphatase Lactate Dehydrogenase Total Creatine Kinase Troponin T C-Reactive Protein Albumin Triglycerides Cholesterol HDL Cholesterol Arterial Blood Glucose Arterial Blood Ionized Calcium Urine WBC (Auto) Salicylates Acetaminophen Hepatitis C Antibody 04/12/20 04/12/20 08:14 12:21 WBC RBC Hgb Hct RDW Seg Neuts % (Manual) Lymphocytes % (Manual) Basophils % (Manual) Seg Neutrophils # Man Lymphocytes # (Manual) Monocytes # (Manual) Eosinophils # (Manual) Basophils # (Manual) D-Dimer ABG pH POC ABG pCO2 POC ABG pO2 ABG pO2 ABG HCO3 ABG Base Excess ABG Hemoglobin ABG Sodium ABG Chloride ABG Glucose Oxyhemoglobin Sodium Potassium 3.3 L Chloride Carbon Dioxide BUN 32 H Creatinine 4.3 H Glucose 188 H POC Glucose 196 H Calcium Magnesium Ferritin Alkaline Phosphatase Lactate Dehydrogenase Total Creatine Kinase Troponin T C-Reactive Protein Albumin Triglycerides Cholesterol HDL Cholesterol Arterial Blood Glucose Arterial Blood Ionized Calcium Urine WBC (Auto) Salicylates Acetaminophen Hepatitis C Antibody Chest x-ray: image reviewed (no acute infiltrate) Allied health notes reviewed: nursing
[2020-04-12] MEDS: INSULIN GLARGINE 100 UNITS/ML SUB-Q SCH (16:37)
[2020-04-12] MEDS: amLODIPine 10 MG TAB PO SCH (16:37)
[2020-04-12] MEDS: hydrALAZINE 100 MG TAB PO SCH ×2 (17:16→19:28)
[2020-04-12] MEDS: MEROPENEM/NS 1 GRAM/100 ML 1 GRAM/100 ML BAG IV SCH (17:16)
[2020-04-12] MEDS: fentaNYL DRIP Premix 2,000 MCG/100 ML BAG IV SCH (19:28)
[2020-04-13] MEDS: fentaNYL DRIP Premix 2,000 MCG/100 ML BAG IV SCH ×3 (00:53→16:00)
[2020-04-13] MEDS: carvediloL 6.25 MG TAB PO SCH ×3 (00:56→22:14)
[2020-04-13] MEDS: HEPARIN 5,000 UNIT/1 ML VIAL SUB-Q SCH ×3 (00:57→22:15)
[2020-04-13] MEDS: INSULIN REGULAR, HUMAN 100 UNIT/ML 3ML VIAL SUB-Q SCH ×4 (01:00→22:13)
--- NOTE | 2020-04-13 05:48 | XRay Report ---
CHEST 1 VIEW 04/13/2020 4:41 AM INDICATION / CLINICAL INFORMATION: follow up respiratory failure. COMPARISON: 04/12/2020 FINDINGS: SUPPORT DEVICES: Stable, satisfactory device positioning. HEART / MEDIASTINUM: Stable. LUNGS / PLEURA: Stable bibasilar opacities. No pneumothorax. ADDITIONAL FINDINGS: No significant additional findings. IMPRESSION: 1. No significant change. Signer Name: Jaswinder Us MD Signed: 04/13/2020 5:44 AM Workstation Name: [id number]
--- NOTE | 2020-04-13 09:02 | Progress Note ---
Assessment and Plan Impression: * End stage renal disease * Sepsis * Positive blood cx - likely contaminant --Blood cx: staph epi (05/29 bottles - Apr 06) * Acute hypoxic respiratory failure * Acute encephalopathy * UTI * Hx of COVID 19 --SARS Cov2 PCR negative Apr 07 * Metabolic acidosis Plan: * Continue hemodialysis on TTS schedule * UF as tolerated * Abx per ID * neurology notes reviewed * Vent management per CCM * Dose medications for renal function * AM labs Subjective Date of service: 04/13/20 Principal diagnosis: Ac on ch hypoxemic and hypercapnic resp failure; PUI COVID- 19 infxn; AMS Interval history: resting in bed, events noted Objective - Exam Narrative Exam: General appearance: well-developed, well-nourished EENT: ATNC, other (ETT in place) Respiratory: Present: Other (coarse BS) Cardiology: regular, S1S2 Gastrointestinal: obese Integumentary: warm and dry Musculoskeletal: other (Bilateral BKA) - Vital Signs Vital signs: Vital Signs - 12hr 04/12/20 04/12/20 04/12/20 21:10 21:16 21:30 Temperature Pulse Rate 86 93 H 90 Pulse Rate [ From Monitor] Respiratory 12 14 11 L Rate Respiratory Rate [ Generalized] Blood Pressure 128/48 128/48 128/48 O2 Sat by Pulse 98 99 98 Oximetry 04/12/20 04/12/20 04/12/20 21:46 22:00 22:16 Temperature Pulse Rate 94 H 97 H 90 Pulse Rate [ From Monitor] Respiratory 12 14 12 Rate Respiratory 12 Rate [ Generalized] Blood Pressure 128/48 145/59 145/59 O2 Sat by Pulse 99 99 98 Oximetry 04/12/20 04/12/20 04/12/20 22:30 22:46 23:00 Temperature Pulse Rate 86 82 87 Pulse Rate [ From Monitor] Respiratory 12 12 12 Rate Respiratory Rate [ Generalized] Blood Pressure 145/59 145/59 145/59 O2 Sat by Pulse 97 98 98 Oximetry 04/12/20 04/12/20 04/12/20 23:16 23:30 23:46 Temperature Pulse Rate 96 H 91 H 85 Pulse Rate [ From Monitor] Respiratory 13 9 L 11 L Rate Respiratory Rate [ Generalized] Blood Pressure 135/63 O2 Sat by Pulse 99 98 98 Oximetry 04/13/20 04/13/20 04/13/20 00:00 00:16 00:30 Temperature 99.0 F Pulse Rate 89 92 H 81 Pulse Rate [ 75 From Monitor] Respiratory 9 L 11 L 11 L Rate Respiratory Rate [ Generalized] Blood Pressure 135/63 156/58 156/58 O2 Sat by Pulse 99 99 97 Oximetry 04/13/20 04/13/20 04/13/20 00:46 01:00 01:16 Temperature Pulse Rate 83 92 H 83 Pulse Rate [ From Monitor] Respiratory 12 13 12 Rate Respiratory Rate [ Generalized] Blood Pressure 156/58 156/58 136/55 O2 Sat by Pulse 98 100 97 Oximetry 04/13/20 04/13/20 04/13/20 01:30 01:46 02:00 Temperature Pulse Rate 82 81 97 H Pulse Rate [ From Monitor] Respiratory 12 13 11 L Rate Respiratory Rate [ Generalized] Blood Pressure 136/55 136/55 143/62 O2 Sat by Pulse 98 98 99 Oximetry 04/13/20 04/13/20 04/13/20 02:16 02:30 02:46 Temperature Pulse Rate 86 91 H 84 Pulse Rate [ From Monitor] Respiratory 11 L 15 12 Rate Respiratory Rate [ Generalized] Blood Pressure 143/62 143/62 143/62 O2 Sat by Pulse 99 99 98 Oximetry 04/13/20 04/13/20 04/13/20 03:00 03:15 03:30 Temperature Pulse Rate 78 89 87 Pulse Rate [ From Monitor] Respiratory 12 18 12 Rate Respiratory Rate [ Generalized] Blood Pressure 143/62 81/43 109/41 O2 Sat by Pulse 98 99 99 Oximetry 04/13/20 04/13/20 04/13/20 03:46 04:00 04:01 Temperature 98.9 F Pulse Rate 80 75 75 Pulse Rate [ 75 From Monitor] Respiratory 12 12 Rate Respiratory Rate [ Generalized] Blood Pressure 109/41 109/41 84/31 O2 Sat by Pulse 99 98 98 Oximetry 04/13/20 04/13/20 04/13/20 04:16 04:30 04:46 Temperature Pulse Rate 79 76 72 Pulse Rate [ From Monitor] Respiratory 12 12 12 Rate Respiratory Rate [ Generalized] Blood Pressure 124/41 124/41 124/41 O2 Sat by Pulse 99 98 98 Oximetry 04/13/20 04/13/20 04/13/20 05:00 05:16 05:30 Temperature Pulse Rate 84 83 78 Pulse Rate [ From Monitor] Respiratory 12 12 12 Rate Respiratory Rate [ Generalized] Blood Pressure 139/43 139/43 139/43 O2 Sat by Pulse 98 99 98 Oximetry 04/13/20 04/13/20 04/13/20 05:46 06:00 06:16 Temperature Pulse Rate 77 73 73 Pulse Rate [ From Monitor] Respiratory 12 12 12 Rate Respiratory Rate [ Generalized] Blood Pressure 139/43 139/43 103/37 O2 Sat by Pulse 98 98 97 Oximetry 04/13/20 04/13/20 04/13/20 06:30 06:46 07:00 Temperature Pulse Rate 73 74 73 Pulse Rate [ From Monitor] Respiratory 14 13 13 Rate Respiratory Rate [ Generalized] Blood Pressure 103/37 103/37 86/30 O2 Sat by Pulse 98 98 97 Oximetry 04/13/20 04/13/20 04/13/20 07:06 07:16 07:30 Temperature Pulse Rate 84 73 76 Pulse Rate [ From Monitor] Respiratory 13 13 Rate Respiratory Rate [ Generalized] Blood Pressure 86/30 86/30 86/30 O2 Sat by Pulse 98 98 99 Oximetry 04/13/20 04/13/20 04/13/20 07:46 08:00 08:16 Temperature 99.2 F Pulse Rate 74 81 72 Pulse Rate [ From Monitor] Respiratory 12 13 13 Rate Respiratory Rate [ Generalized] Blood Pressure 86/30 128/44 128/44 O2 Sat by Pulse 99 98 98 Oximetry - Lab 04/12/20 08:14 04/12/20 08:14 Most recent lab results ABG pH 7.383 (7.320-7.450) 04/13/20 03:40 ABG pCO2 54.0 mm Hg 04/11/20 03:44 ABG pO2 73.4 mm Hg (80.0-90.0) L 04/11/20 03:44 ABG HCO3 26.7 mmol/L (20.0-26.0) H 04/11/20 03:44 ABG O2 Saturation 95.0 % (95.0-99.0) 04/11/20 03:44 Calcium 8.7 mg/dL (8.4-10.2) 04/12/20 08:14 Magnesium 2.50 mg/dL (1.7-2.3) H 04/06/20 14:30 Medications & Allergies - Medications Allergies/Adverse Reactions: Allergies carrot Allergy (Verified 07/28/19 12:30) Hives erythromycin base Allergy (Verified 07/30/19 11:26) Hives latex Allergy (Verified 02/18/19 13:20) Rash peas Allergy (Verified 12/20/19 12:37) Hives vancomycin Allergy (Verified 12/31/19 15:46) Hives Home Medications: Home Medications Medication Instructions Recorded Confirmed Last Taken Type Aripiprazole 5 mg PO DAILY 02/18/19 04/06/20 02/17/19 History Benadryl CAP 25 mg PO Q8H PRN 02/18/19 04/06/20 02/17/19 History Calcium Acetate 667 mg PO TIDWM 02/18/19 04/06/20 02/17/19 History Carvedilol 6.25 mg PO Q12H 02/18/19 04/06/20 02/17/19 History Colace CAP 100 mg PO Q12H PRN 02/18/19 04/06/20 02/17/19 History Esomeprazole Magnesium 40 mg PO QDAC 02/18/19 04/06/20 02/17/19 History HumaLOG 10 units SUB-Q TIDWM 02/18/19 04/06/20 02/17/19 History Insulin Detemir (Nf) [Levemir See Protocol SQ QHS 02/18/19 04/06/20 02/17/19 History Flextouch (Nf)] Losartan Potassium 50 mg PO DAILY 02/18/19 04/06/20 02/17/19 History Lyrica 75 mg PO Q12H 02/18/19 04/06/20 02/17/19 History Melatonin 6 mg PO QHS 02/18/19 04/06/20 02/17/19 History Senna 17.2 mg PO QHS PRN 02/18/19 04/06/20 02/17/19 History Venlafaxine HCl [Venlafaxine HCl 150 mg PO QDAC 02/18/19 04/06/20 02/17/19 History ER] Vitamin C 250 mg PO DAILY 02/18/19 04/06/20 02/17/19 History ZyrTEC 10mg cap 10 mg PO DAILY 02/18/19 04/06/20 02/17/19 History Calcium Acetate [Phoslo] 667 mg PO TIDWM capsule 12/22/19 04/06/20 Unknown Rx Fe Fumarate/FA/Mv, Min Comb#15 1 each PO QDAY capsule 12/22/19 04/06/20 Unknown Rx [Hemocyte Plus] Albuterol Mdi (or & Nicu Only) 2.5 puff IH Q4HRT PRN inha 01/12/20 04/06/20 Unknown Rx [ProAir HFA Inhaler] dexAMETHasone [Decadron] 6 mg PO Q12HR #10 tablet 01/12/20 04/06/20 Unknown Rx oxyCODONE 5 mg PO Q6H PRN #10 01/12/20 04/06/20 Unknown Rx Active Medications: Generic Name Dose Route Start Last Admin Trade Name Freq PRN Reason Stop Dose Admin Acetaminophen 650 mg 04/06/20 16:39 Tylenol PO Q6H PRN Pain, Mild (1-3) Amlodipine Besylate 10 mg 04/12/20 17:00 04/12/20 16:37 Amlodipine PO 10 mg QDAY NOEL Administration Lipase/Protease/Amylase 1 each 04/07/20 10:[address] 10,500 Unit FEEDTUBE PRN PRN For Clogged Feeding Tube Carvedilol 6.25 mg 04/09/20 22:00 04/13/20 00:56 Coreg PO 6.25 mg BID NOEL Administration Dextrose 50 ml 04/09/20 16:30 D50w (25gm) Syringe IV Q30MIN PRN Hypoglycemia Protocol Famotidine 20 mg 04/07/20 10:00 04/12/20 09:47 Pepcid PO 20 mg QDAY NOEL Administration Fentanyl 50 mcg 04/06/20 13:34 Sublimaze IV Q10MIN PRN ANALGESIA Heparin Sodium (Porcine) 5,000 unit 04/06/20 22:00 04/13/20 00:57 Heparin SUB-Q 5,000 unit Q12HR NOEL Administration Hydralazine HCl 100 mg 04/12/20 16:47 04/12/20 19:28 Apresoline PO 100 mg TID NOEL Administration Hydromorphone HCl 0.25 mg 04/06/20 16:39 Dilaudid IV Q4H PRN Pain, Moderate (4-6) Hydrophilic Ointment 1 applic 04/06/20 13:34 Vaseline Lip Therapy TP Q2HR PRN Dry Lips Fentanyl Citrate 2,000 mcg in 100 mls @ 5.505 mls/hr 04/06/20 14:00 04/13/20 00:53 Fentanyl Drip Premix IV 3 mcg/kg/hr TITR NOEL 16.515 mls/hr Administration Protocol 1 MCG/KG/HR Nicardipine/Sodium Chloride 40 mg in 200 mls @ 25 mls/hr 04/06/20 17:00 04/06/20 23:23 Cardene Drip 40 Mg/200 Ml IV Infused TITR NOEL Titration Protocol 5 MG/HR Sodium Chloride 250 mls @ 10 mls/hr 04/07/20 10:03 04/09/20 05:38 Nacl 0.9% 250ml IV 10 mls/hr DIRECT PRN Administration FOR ABX Sodium Chloride 100 mls @ 999 mls/hr 04/07/20 17:00 Nacl 0.9% IV SPRING PRN Hypotension MEROPENEM/NS 1 GRAM/100 ML 1 gram in 100 mls @ 100 mls/hr 04/10/20 18:00 04/12/20 17:16 Merrem/Ns 1 Gram/100 Ml IV 100 mls/hr QPM NOEL Administration Protocol Insulin Glargine 10 units 04/09/20 17:00 04/12/20 16:37 Lantus SUB-Q 10 units Q24H NOEL Administration Insulin Human Regular 0 unit 04/09/20 18:00 04/13/20 01:00 Humulin R SUB-Q 1 unit Q6H NOEL Administration Protocol Labetalol HCl 10 mg 04/08/20 17:17 04/12/20 12:53 Labetalol IV 10 mg Q4H PRN Administration Blood Pressure Losartan Potassium 50 mg 04/09/20 18:00 04/12/20 09:46 Cozaar PO 50 mg QDAY NOEL Administration Multi-Ingred Cream/Lotion/Oil/Oint 1 applic 04/06/20 13:34 Artificial Tears Ophth Oint OU Q4HR PRN Dry Eye(s) Simple Syrup 15 ml 04/07/20 10:23 Simple Syrup FEEDTUBE PRN PRN Hypoglycemia Simple Syrup 30 ml 04/07/20 10:23 Simple Syrup FEEDTUBE PRN PRN Hypoglycemia Sodium Bicarbonate 325 mg 04/07/20 10:23 Sodium Bicarbonate FEEDTUBE PRN PRN For Clogged Feeding Tube Sodium Chloride 10 ml 04/06/20 22:00 04/13/20 00:54 Sodium Chloride Flush Syringe 10 Ml IV 10 ml BID NOEL Administration Sodium Chloride 10 ml 04/06/20 16:32 Sodium Chloride Flush Syringe 10 Ml IV PRN PRN LINE FLUSH
[2020-04-13 09:06] LABS: Calcium 8.8 mg/dL (8.4-10.2)
--- NOTE | 2020-04-13 09:20 | Progress Note ---
Assessment and Plan Assessment and plan: Severe sepsis. Present on admission with hypothermia, leukocytosis, altered mental status, likely due to bilateral pneumonia. F/U Blood Cx. Cont. Abx pre ID Bilateral pneumonia. Aspiration pneumonia/HAP Severe UTI. Bains catheter with purulent urine. Acute hypoxemic respiratory failure. Intubated for airway protection, O2 sats down to 87%. Toxic metabolic encephalopathy. Etiology secondary to sepsis End-stage renal disease on hemodialysis Extensive Candidal intertrigo in groin and vagina. Cont. Fluconazole History COVID-19 infection (01/07/2020) 04/08/2020. Patient remains intubated on mechanical ventilation with AC mode ventilation rate 12, tidal volume 450, FiO2 40% and a PEEP of 6. Continue weaning per protocols. Patient with ESRD and continue TTS schedule per nephrology. Patient does have a history of COVID-19 infection(01/07/20) but negative testing April 07. Follow-up blood/urine/sputum culture. Continue antibiotics per ID recommendations. 04/09/2020. Patient not tolerating PSV 12/6 with FiO2 of 30%. Continue hemodialysis per nephrology recommendations. Continue IV antibiotics per ID recommendations. Blood cultures no growth to date. Respiratory therapy reports patient with accelerated hypertension and apneic episodes on PSV ventilation. Await pulmonary recommendations. 04/10/2020. Patient remains on mechanical ventilation AC mode rate 12, tidal volume 450, FiO2 30% and a PEEP of 6. Continue PSV trials per protocols. Continue hemodialysis per nephrology recommendations. Continue anti-infectives of fluconazole and cefepime. Follow-up blood/urine/sputum culture. ID, pulmonary and nephrology following. 04/11/2020; patient remains on mechanical ventilation AC mode rate 12, tidal volume 450, FiO2 of 30 and PEEP of 6. Continue PSV trials per protocols. continue hemodialysis per nephrology. ID changed antibiotics to meropenem. Blood culture grew staph epidermidis likey contaminant. 04/12/2020; patient is intubated, patient open eyes spontaneously. Neurology consulted and continue on replacement treatment. EEG is pending. Recommend MRI. Patient is on meropenem per ID recommendation. Pulmonary is following. Patient is on spontaneous breathing trial 04/13/2020; patient is intubated. Patient's blood pressure was high yesterday, amlodipine and hydralazine was added. Overnight his blood pressure was low and will also BP medications. We will continue to follow. The high probability of a clinically significant, sudden or life threatening deterioration of the [respiratory] system(s) required my full and direct atte ntion, intervention and personal management. The aggregate critical care time was [33] minutes. This time is in addition to time spent performing reported procedures but includes the following: [x] Data Review and interpretation [x] Patient assessment and monitoring of vital signs [x] Documentation [x] Medication orders and management History Interval history: 49 years old female with history of asthma, hypertension, end-stage renal disease on hemodialysis, diabetes mellitus, bipolar disorder, morbid obesity, CVA, resident of a skilled nursing, admitted on 04/06/2020 secondary to be found Unresponsiveness after hemodialysis. Patient is unable to provide history, currently intubated. Patient received hemodialysis and after completion she be came unresponsive. Upon EMS arrival, blood pressure was 90/60, HR 88, temperature 97.2. Per records, patient was not complaining of any symptoms. On arrival, temperature 94.1, HR 66, RR 18, O2 sat 87%, BP 131/111. Initial WBC 19.2. Urinalysis showed more than 182 WBCs and moderate leukocyte esterase. Chest x-ray shows bibasilar infiltrates. Patient was intubated in the emergency room to protect airway. Bains catheter was placed yielding purulent urine. No new issues overnight. Patient remains intubated on mechanical ventilation History Interval history: Patient was seen and evaluated this morning Patient is intubated and on mechanical ventilation Patient open her eyes spontaneously Hospitalist Physical - Physical exam Narrative exam: Continue intubated and on mechanical ventilation. The patient appeared well nourished and normally developed. Vital signs as documented. Head exam is unremarkable. No scleral icterus . Neck is without jugular venous distension, thyromegaly, or carotid bruits. Lungs are clear to auscultation. Cardiac exam reveals regular rate and Rhythm. Abdominal exam reveals normal bowel sounds, nontender, no organomegaly. Extremities are nonedematous and both femoral and pedal pulses are normal. 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 - Constitutional Vitals: Temp Pulse Resp BP Pulse Ox 99.2 F 72 13 128/44 98 04/13/20 08:00 04/13/20 08:16 04/13/20 08:16 04/13/20 08:16 04/13/20 08:16 General appearance: Present: severe distress, other (Intubated on mechanical ventilation) HEART Score - HEART Score Troponin: Troponin T 0.224 ng/mL (0.00-0.029) H* 04/06/20 14:30 Results - Labs CBC & Chem 7: 04/12/20 08:14 04/13/20 09:09 Labs: Laboratory Last Values WBC 28.0 K/mm3 (4.5-11.0) H 04/12/20 08:14 RBC 3.29 M/mm3 (3.65-5.03) L 04/12/20 08:14 Hgb 9.5 gm/dl (10.1-14.3) L 04/12/20 08:14 Hct 29.1 % (30.3-42.9) L 04/12/20 08:14 MCV 88 fl (79-97) 04/12/20 08:14 MCH 29 pg (28-32) 04/12/20 08:14 MCHC 33 % (30-34) 04/12/20 08:14 RDW 16.9 % (13.2-15.2) H 04/12/20 08:14 Plt Count 347 K/mm3 (140-440) 04/12/20 08:14 Add Manual Diff Complete 04/12/20 08:14 Total Counted 100 04/12/20 08:14 Seg Neuts % (Manual) 88.0 % (40.0-70.0) H 04/12/20 08:14 Band Neutrophils % 0 % 04/12/20 08:14 Lymphocytes % (Manual) 7.0 % (13.4-35.0) L 04/12/20 08:14 Reactive Lymphs % (Man) 0 % 04/12/20 08:14 Monocytes % (Manual) 2.0 % (0.0-7.3) 04/12/20 08:14 Eosinophils % (Manual) 2.0 % (0.0-4.3) 04/12/20 08:14 Basophils % (Manual) 0 % (0.0-1.8) 04/12/20 08:14 Metamyelocytes % 0 % 04/12/20 08:14 Myelocytes % 1.0 % 04/12/20 08:14 Promyelocytes % 0 % 04/12/20 08:14 Blast Cells % 0 % 04/12/20 08:14 Nucleated RBC % Not Reportable 04/12/20 08:14 Seg Neutrophils # Man 24.6 K/mm3 (1.8-7.7) H 04/12/20 08:14 Band Neutrophils # 0.0 K/mm3 04/12/20 08:14 Lymphocytes # (Manual) 2.0 K/mm3 (1.2-5.4) 04/12/20 08:14 Abs React Lymphs (Man) 0.0 K/mm3 04/12/20 08:14 Monocytes # (Manual) 0.6 K/mm3 (0.0-0.8) 04/12/20 08:14 Eosinophils # (Manual) 0.6 K/mm3 (0.0-0.4) H 04/12/20 08:14 Basophils # (Manual) 0.0 K/mm3 (0.0-0.1) 04/12/20 08:14 Metamyelocytes # 0.0 K/mm3 04/12/20 08:14 Myelocytes # 0.3 K/mm3 04/12/20 08:14 Promyelocytes # 0.0 K/mm3 04/12/20 08:14 Blast Cells # 0.0 K/mm3 04/12/20 08:14 WBC Morphology Not Reportable 04/12/20 08:14 Hypersegmented Neuts Not Reportable 04/12/20 08:14 Hyposegmented Neuts Not Reportable 04/12/20 08:14 Hypogranular Neuts Not Reportable 04/12/20 08:14 Smudge Cells Not Reportable 04/12/20 08:14 Toxic Granulation Not Reportable 04/12/20 08:14 Toxic Vacuolation Not Reportable 04/12/20 08:14 Dohle Bodies Not Reportable 04/12/20 08:14 Pelger-Huet Anomaly Not Reportable 04/12/20 08:14 Stephanie Rods Not Reportable 04/12/20 08:14 Platelet Estimate Consistent w auto 04/12/20 08:14 Clumped Platelets Not Reportable 04/12/20 08:14 Plt Clumps, EDTA Not Reportable 04/12/20 08:14 Large Platelets Not Reportable 04/12/20 08:14 Giant Platelets Not Reportable 04/12/20 08:14 Platelet Satelliting Not Reportable 04/12/20 08:14 Plt Morphology Comment Not Reportable 04/12/20 08:14 RBC Morphology Not Reportable 04/12/20 08:14 Dimorphic RBCs Not Reportable 04/12/20 08:14 Polychromasia Rare 04/12/20 08:14 Hypochromasia Few 04/12/20 08:14 Poikilocytosis Not Reportable 04/12/20 08:14 Anisocytosis 1+ 04/12/20 08:14 Microcytosis Not Reportable 04/12/20 08:14 Macrocytosis Not Reportable 04/12/20 08:14 Spherocytes Not Reportable 04/12/20 08:14 Pappenheimer Bodies Not Reportable 04/12/20 08:14 Sickle Cells Not Reportable 04/12/20 08:14 Target Cells Not Reportable 04/12/20 08:14 Tear Drop Cells Not Reportable 04/12/20 08:14 Ovalocytes Not Reportable 04/12/20 08:14 Stomatocytes Few 04/12/20 08:14 Helmet Cells Not Reportable 04/12/20 08:14 [place] Bodies Not Reportable 04/12/20 08:14 [place] Rings Not Reportable 04/12/20 08:14 [place] Cells Not Reportable 04/12/20 08:14 Bite Cells Not Reportable 04/12/20 08:14 Crenated Cell Not Reportable 04/12/20 08:14 Elliptocytes Not Reportable 04/12/20 08:14 Acanthocytes (Spur) Not Reportable 04/12/20 08:14 Rouleaux Not Reportable 04/12/20 08:14 Hemoglobin C Crystals Not Reportable 04/12/20 08:14 Schistocytes Not Reportable 04/12/20 08:14 Malaria parasites Not Reportable 04/12/20 08:14 Lc Bodies Not Reportable 04/12/20 08:14 Hem Pathologist Commnt No 04/12/20 08:14 PT 13.8 Sec. (12.2-14.9) 04/06/20 14:30 INR 1.04 (0.87-1.13) 04/06/20 14:30 APTT 28.1 Sec. (24.2-36.6) 04/06/20 14:30 D-Dimer 1063.66 ng/mlDDU (0-234) H 04/07/20 09:34 ABG pH 7.383 (7.320-7.450) 04/13/20 03:40 POC ABG pCO2 42.4 mmHg (32.0-48.0) 04/13/20 03:40 ABG pCO2 54.0 mm Hg 04/11/20 03:44 POC ABG pO2 95.7 mmHg (83-108) 04/13/20 03:40 ABG pO2 73.4 mm Hg (80.0-90.0) L 04/11/20 03:44 POC ABG HCO3 24.7 04/13/20 03:40 ABG HCO3 26.7 mmol/L (20.0-26.0) H 04/11/20 03:44 ABG O2 Saturation 95.0 % (95.0-99.0) 04/11/20 03:44 ABG O2 Content 14.4 (0.0-44) 04/11/20 03:44 POC ABG Base Excess -0.4 04/13/20 03:40 ABG Base Excess -0.1 mmol/L (-2.0-3.0) 04/11/20 03:44 ABG Hemoglobin 9.4 (12.0-17.5) L 04/13/20 03:40 ABG Carboxyhemoglobin 1.6 % (0.0-5.0) 04/11/20 03:44 ABG Methemoglobin 0.7 % (0.0-1.5) 04/11/20 03:44 ABG Sodium 133.6 mmol/L (136.0-145.0) L 04/13/20 03:40 ABG Potassium 3.8 mmol/L (3.40-4.50) 04/13/20 03:40 ABG Chloride 102.0 mmol/L (98-107) 04/13/20 03:40 ABG Glucose 172 mg/dL (65-95) H 04/13/20 03:40 Oxyhemoglobin 92.8 % (95.0-99.0) L 04/11/20 03:44 FiO2 30 04/13/20 03:40 Sodium 139 mmol/L (137-145) 04/13/20 07:49 Potassium 4.0 mmol/L (3.6-5.0) D 04/13/20 07:49 Chloride 100.4 mmol/L (98-107) 04/13/20 07:49 Carbon Dioxide 30 mmol/L (22-30) 04/13/20 07:49 Anion Gap 13 mmol/L 04/13/20 07:49 BUN 44 mg/dL (7-17) H 04/13/20 07:49 Creatinine 5.0 mg/dL (0.6-1.2) H 04/13/20 07:49 Estimated GFR 9 ml/min 04/13/20 07:49 BUN/Creatinine Ratio 9 % 04/13/20 07:49 Glucose 164 mg/dL (65-100) H 04/13/20 07:49 POC Glucose 167 mg/dL (70-105) H 04/13/20 05:33 Lactic Acid 1.00 mmol/L (0.7-2.0) 04/06/20 23:09 Calcium 8.8 mg/dL (8.4-10.2) 04/13/20 07:49 Magnesium 2.50 mg/dL (1.7-2.3) H 04/06/20 14:30 Ferritin 743.0 ng/mL (10.0-200.0) H 04/07/20 09:34 Total Bilirubin 0.30 mg/dL (0.1-1.2) 04/06/20 14:30 AST 39 units/L (5-40) 04/06/20 14:30 ALT 21 units/L (7-56) 04/06/20 14:30 Alkaline Phosphatase 738 units/L (35-129) H 04/06/20 14:30 Ammonia 43.0 umol/L (25-60) 04/06/20 14:30 Lactate Dehydrogenase 195 units/L (91-180) H 04/07/20 09:34 Total Creatine Kinase 23 units/L (30-135) L 04/06/20 14:30 Total Creatine Kinase 24 units/L (30-135) L 04/06/20 14:30 Troponin T 0.224 ng/mL (0.00-0.029) H* 04/06/20 14:30 C-Reactive Protein 7.50 mg/dL (0.00-1.30) H 04/07/20 09:34 Total Protein 8.1 g/dL (6.3-8.2) 04/06/20 14:30 Albumin 3.1 g/dL (3.9-5) L 04/06/20 14:30 Albumin/Globulin Ratio 0.6 % 04/06/20 14:30 Triglycerides 342 mg/dL (2-149) H 04/06/20 14:30 Cholesterol 223 mg/dL (50-199) H 04/06/20 14:30 LDL Cholesterol Direct 123 mg/dL (50-130) 04/06/20 14:30 HDL Cholesterol 35 mg/dL (40-59) L 04/06/20 14:30 Cholesterol/HDL Ratio 6.37 % 04/06/20 14:30 TSH 1.320 mlU/mL (0.270-4.200) 04/06/20 14:30 HCG, Qual Negative (Negative) 04/06/20 14:30 Arterial Blood Glucose 172 mg/dL (65-95) H 04/13/20 03:40 Arterial Blood Ionized Calcium 4.8 mg/dL (4.6-5.3) 04/13/20 03:40 Urine Color Yellow (Yellow) 04/06/20 13:34 Urine Turbidity Turbid (Clear) 04/06/20 13:34 Urine pH 7.0 (5.0-7.0) 04/06/20 13:34 Ur Specific [place] 1.017 (1.003-1.030) 04/06/20 13:34 Urine Protein 100 mg/dl mg/dL (Negative) 04/06/20 13:34 Urine Glucose (UA) 50 mg/dL (Negative) 04/06/20 13:34 Urine Ketones Tr mg/dL (Negative) 04/06/20 13:34 Urine Blood Sm (Negative) 04/06/20 13:34 Urine Nitrite Neg (Negative) 04/06/20 13:34 Urine Bilirubin Neg (Negative) 04/06/20 13:34 Urine Urobilinogen < 2.0 mg/dL (<2.0) 04/06/20 13:34 Ur Leukocyte Esterase Mod (Negative) 04/06/20 13:34 Urine WBC (Auto) > 182.0 /HPF (0.0-6.0) H 04/06/20 13:34 Urine RBC (Auto) 49.0 /HPF (0.0-6.0) 04/06/20 13:34 U Epithel Cells (Auto) 6.0 /HPF (0-13.0) 04/06/20 13:34 Urine Bacteria (Auto) 2+ /HPF (Negative) 04/06/20 13:34 Urine WBC Clumps 3+ /HPF 04/06/20 13:34 Urine Mucus 3+ /HPF 04/06/20 13:34 Salicylates < 0.3 mg/dL (2.8-20.0) L 04/06/20 14:30 Acetaminophen 5.0 ug/mL (10.0-30.0) L 04/06/20 14:30 Plasma/Serum Alcohol < 0.01 % (0-0.07) 04/06/20 14:30 Coronavirus (PCR) Negative (Negative) 04/07/20 Unknown Hepatitis A IgM Ab Non-reactive (NonReactive) 04/07/20 16:38 Hep Bs Antigen Non-reactive (Negative) 04/07/20 16:38 Hep B Core IgM Ab Non-reactive (NonReactive) 04/07/20 16:38 Hepatitis C Antibody Reactive (NonReactive) A 04/07/20 16:38 Blood Type O POSITIVE 04/06/20 14:30 Antibody Screen Negative 04/06/20 14:30 Bains/IV: Voiding Method Indwelling Catheter IV Catheter Type [Right VAS Cath Subclavian] IV Catheter Type [Left INT / Saline Lock Antecubital] IV Catheter Type [Right INT / Saline Lock Forearm] Active Medications - Current Medications Current Medications: Generic Name Dose Route Start Last Admin Trade Name Sandorq PRN Reason Stop Dose Admin Acetaminophen 650 mg 04/06/20 16:39 Tylenol PO Q6H PRN Pain, Mild (1-3) Amlodipine Besylate 10 mg 04/12/20 17:00 04/12/20 16:37 Amlodipine PO 10 mg QDAY NOEL Administration Lipase/Protease/Amylase 1 each 04/07/20 10:[address] 10,500 Unit FEEDTUBE PRN PRN For Clogged Feeding Tube Carvedilol 6.25 mg 04/09/20 22:00 04/13/20 00:56 Coreg PO 6.25 mg BID NOEL Administration Dextrose 50 ml 04/09/20 16:30 D50w (25gm) Syringe IV Q30MIN PRN Hypoglycemia Protocol Famotidine 20 mg 04/07/20 10:00 04/12/20 09:47 Pepcid PO 20 mg QDAY NOEL Administration Fentanyl 50 mcg 04/06/20 13:34 Sublimaze IV Q10MIN PRN ANALGESIA Heparin Sodium (Porcine) 5,000 unit 04/06/20 22:00 04/13/20 00:57 Heparin SUB-Q 5,000 unit Q12HR NOEL Administration Hydromorphone HCl 0.25 mg 04/06/20 16:39 Dilaudid IV Q4H PRN Pain, Moderate (4-6) Hydrophilic Ointment 1 applic 04/06/20 13:34 Vaseline Lip Therapy TP Q2HR PRN Dry Lips Fentanyl Citrate 2,000 mcg in 100 mls @ 5.505 mls/hr 04/06/20 14:00 04/13/20 00:53 Fentanyl Drip Premix IV 3 mcg/kg/hr TITR NOEL 16.515 mls/hr Administration Protocol 1 MCG/KG/HR Nicardipine/Sodium Chloride 40 mg in 200 mls @ 25 mls/hr 04/06/20 17:00 04/06/20 23:23 Cardene Drip 40 Mg/200 Ml IV Infused TITR NOEL Titration Protocol 5 MG/HR Sodium Chloride 250 mls @ 10 mls/hr 04/07/20 10:03 04/09/20 05:38 Nacl 0.9% 250ml IV 10 mls/hr DIRECT PRN Administration FOR ABX Sodium Chloride 100 mls @ 999 mls/hr 04/07/20 17:00 Nacl 0.9% IV SPRING PRN Hypotension MEROPENEM/NS 1 GRAM/100 ML 1 gram in 100 mls @ 100 mls/hr 04/10/20 18:00 04/12/20 17:16 Merrem/Ns 1 Gram/100 Ml IV 100 mls/hr QPM NOEL Administration Protocol Insulin Glargine 10 units 04/09/20 17:00 04/12/20 16:37 Lantus SUB-Q 10 units Q24H NOEL Administration Insulin Human Regular 0 unit 04/09/20 18:00 04/13/20 01:00 Humulin R SUB-Q 1 unit Q6H NOEL Administration Protocol Labetalol HCl 10 mg 04/08/20 17:17 04/12/20 12:53 Labetalol IV 10 mg Q4H PRN Administration Blood Pressure Losartan Potassium 50 mg 04/09/20 18:00 04/12/20 09:46 Cozaar PO 50 mg QDAY NOEL Administration Multi-Ingred Cream/Lotion/Oil/Oint 1 applic 04/06/20 13:34 Artificial Tears Ophth Oint OU Q4HR PRN Dry Eye(s) Simple Syrup 15 ml 04/07/20 10:23 Simple Syrup FEEDTUBE PRN PRN Hypoglycemia Simple Syrup 30 ml 04/07/20 10:23 Simple Syrup FEEDTUBE PRN PRN Hypoglycemia Sodium Bicarbonate 325 mg 04/07/20 10:23 Sodium Bicarbonate FEEDTUBE PRN PRN For Clogged Feeding Tube Sodium Chloride 10 ml 04/06/20 22:00 04/13/20 00:54 Sodium Chloride Flush Syringe 10 Ml IV 10 ml BID NOEL Administration Sodium Chloride 10 ml 04/06/20 16:32 Sodium Chloride Flush Syringe 10 Ml IV PRN PRN LINE FLUSH Nutrition/Malnutrition Assess - Dietary Evaluation Nutrition/Malnutrition Findings: Nutrition Notes Start: 04/07/20 08:19 Freq: Status: Active Protocol: Document 04/11/20 12:05 AL (Rec: 04/11/20 12:18 AL [id number]) Co-Sign 04/11/20 12:05 MK Nutrition Notes Initial or Follow up Reassessment Current Diagnosis CKD (stage V CKD),Diabetes, Hypertension,Stroke Other Pertinent Diagnosis on HD, bilateral BKA, AMS Current Diet Nepro 1.8 at 45 mL/hr (goal rate) Labs/Tests BUN 48 Cr 6.1 Pertinent Medications Humulin Height 5 ft 5 in Weight 110.1 kg [place] Body Weight (kg) 56.81 BMI 40.4 Weight Status Morbidly Obese Subjective/Other Information F/U for TF tolerance. Patient was receiving HD at time of vist. TF is infusing at goal rate and patient is tolerating it well, per RN. Percent of energy/protein needs met: 100%/61% Burn Absent Trauma Absent GI Symptoms None Current % PO Negligible Minimum of two criteria No physical signs of malnutrition #1 Nutrition Diagnosis Inadequate oral intake Diagnosis Progress(for reassessment Continues documentation) Is patient on ventilator? Yes Is Patient Ambulatory and/or Out of Bed No REE-([place]-confined to bed) 2063.820 Kcal/Kg value to use for calculation 16 Approximate Energy Requirements Using 1762 kcal/Kg Calculation Used for Recommendations Kcal/kg Additional Notes Protein Needs: up to 142 g (up to 2.5 g/kg IBW) Fluid Needs: 1 mL/kcal Nutrition Intervention Change Diet Order: Continue TF Nutrition Support: Nepro 1.8 at 45 mL/hr (goal rate) Flush 200 mL q4h Kcal 1,944 Protein (gm) 87 Fluid (mL) 785 Goal #1 Meet estimated energy and protein needs as best as possible via TF Anticipated Discharge Needs: Unable to determine at this time Follow-Up By: 04/13/20 Additional Comments F/U for TF tolerance
[2020-04-13] MEDS: LOSARTAN 50 MG TAB PO SCH (09:38)
[2020-04-13] MEDS: FAMOTIDINE 20 MG TAB PO SCH (09:38)
[2020-04-13] MEDS: amLODIPine 10 MG TAB PO SCH (09:39)
[2020-04-13 09:40] LABS: Calcium 8.8 mg/dL (8.4-10.2)
--- NOTE | 2020-04-13 11:39 | Progress Note ---
Assessment and Plan Cultures: Blood culture 04/06/2020: 1 out of 4 bottles coag negative staph Urine culture 04/06/2020 <10,000 mixed bacteria Respiratory culture 04/06/2020 poor specimen SARS-CoV-2 PCR negative 04/07/2020 tracheal aspirate culture: Usual respiratory sarah Assessment: 49 years old female with history of asthma, hypertension, end-stage renal disease on hemodialysis, diabetes mellitus, bipolar disorder, morbid obesity, CVA, bilateral BKA's recent COVID-19 infection requiring intubation treated with dexamethasone in December 2019 [facility], resident of a half-way, admitted on 04/06/2020 secondary to be found unresponsiveness after hemodialysis: #Severe sepsis: Present on admission with hypothermia, leukocytosis, altered mental status, likely due to bilateral pneumonia, bacteremia and UTI. #Bilateral pneumonia: Aspiration pneumonia/HAP. Of note, patient was recently admitted at [facility] in January 2020 requiring intubation for COVID-19 pneumonia. COVID-19 pneumonia was treated with dexamethasone. #Coag negative staph bacteremia: 1/4 bottles, consistent with contaminant. #UTI: Bains catheter with purulent urine. #Acute hypoxemic respiratory failure: intubated, on the vent #End-stage renal disease on hemodialysis: renally dose abx. #Extensive Candidal intertrigo in groin and vagina: treated with fluconazole. #Vancomycin allergy ? Causing hives. I reviewed records from [facility] and there is no documentation of vancomycin allergy, patient initially received vancomycin #Leucocytosis: Patient has chronic leukocytosis, labs from here and [facility] in the past were reviewed. Recs: continue IV meropenem, D4 of 5 Lloyd Beltran MD, FACP [facility] O: [phone] F: [phone] Subjective Date of service: 04/13/20 Principal diagnosis: Ac on ch hypoxemic and hypercapnic resp failure; PUI COVID- 19 infxn; AMS Interval history: No fever today. Getting HD at bedside. Remains intubated, on the vent. Objective - Exam Narrative Exam: Physical Exam: Constitutional: sedated, intubated, on the vent Head, Ears, Nose: Normocephalic, atraumatic. External ears, nose normal Eyes: Conjunctivae/corneas clear. No icterus. No ptosis. Neck: intubated Oral: intubated Cardiovascular: S1, S2 + Respiratory: AE fair bilaterally and equal GI: Soft, bowel sounds + Musculoskeletal: Bilateral BKA. Right chest PermCath Skin: No rash or abscess Hem/Lymphatic: No palpable cervical or supraclavicular nodes. No lymphangitis Psych: no agitation Neurological: sedated, intubated, on the vent, exam limited - Constitutional Vitals: Vital Signs Temp Pulse Resp BP Pulse Ox 99.2 F 72 13 92/35 98 04/13/20 08:55 04/13/20 11:30 04/13/20 08:55 04/13/20 11:30 04/13/20 11:18 Temperature -Last 24 Hours Temperature 99.2 F Temperature 99.2 F Temperature 98.9 F Temperature 99.0 F Temperature 99.6 F Temperature 98.7 F Temperature 98.8 F - Labs CBC & Chem 7: 04/12/20 08:14 04/13/20 09:09 Labs: Abnormal lab results 04/12/20 04/12/20 04/12/20 Range/Units 08:14 12:21 17:26 Seg Neuts % (Manual) 88.0 H (40.0-70.0) % Lymphocytes % (Manual) 7.0 L (13.4-35.0) % Seg Neutrophils # Man 24.6 H (1.8-7.7) K/mm3 Eosinophils # (Manual) 0.6 H (0.0-0.4) K/mm3 ABG Hemoglobin (12.0-17.5) ABG Sodium (136.0-145.0) mmol/L ABG Glucose (65-95) mg/dL Carbon Dioxide (22-30) mmol/L BUN (7-17) mg/dL Creatinine (0.6-1.2) mg/dL Glucose (65-100) mg/dL POC Glucose 196 H 235 H (70-105) mg/dL Arterial Blood Glucose (65-95) mg/dL 04/12/20 04/13/20 04/13/20 Range/Units 23:34 03:40 05:33 Seg Neuts % (Manual) (40.0-70.0) % Lymphocytes % (Manual) (13.4-35.0) % Seg Neutrophils # Man (1.8-7.7) K/mm3 Eosinophils # (Manual) (0.0-0.4) K/mm3 ABG Hemoglobin 9.4 L (12.0-17.5) ABG Sodium 133.6 L (136.0-145.0) mmol/L ABG Glucose 172 H (65-95) mg/dL Carbon Dioxide (22-30) mmol/L BUN (7-17) mg/dL Creatinine (0.6-1.2) mg/dL Glucose (65-100) mg/dL POC Glucose 171 H 167 H (70-105) mg/dL Arterial Blood Glucose 172 H (65-95) mg/dL 04/13/20 04/13/20 04/13/20 Range/Units 07:49 09:09 11:34 Seg Neuts % (Manual) (40.0-70.0) % Lymphocytes % (Manual) (13.4-35.0) % Seg Neutrophils # Man (1.8-7.7) K/mm3 Eosinophils # (Manual) (0.0-0.4) K/mm3 ABG Hemoglobin (12.0-17.5) ABG Sodium (136.0-145.0) mmol/L ABG Glucose (65-95) mg/dL Carbon Dioxide 31 H (22-30) mmol/L BUN 44 H 43 H (7-17) mg/dL Creatinine 5.0 H 4.9 H (0.6-1.2) mg/dL Glucose 164 H 164 H (65-100) mg/dL POC Glucose 155 H (70-105) mg/dL Arterial Blood Glucose (65-95) mg/dL
[2020-04-13] MEDS ORDERED: ALBUMIN HUMAN 25% (25 GM/100 ML) INJ IV ONE (13:57)
[2020-04-13] MEDS ORDERED: SODIUM CHLORIDE 0.9% 1000 ML 1,000 ML IV SCH (14:00)
--- NOTE | 2020-04-13 14:04 | Progress Note ---
Assessment and Plan Acute on chronic hypoxemic and hypercapnic respiratory failure. Coronavirus-19 infection. Acute encephalopathy. Bibasilar atelectasis. End-stage renal disease, on dialysis. Morbid obesity. History of a cerebrovascular accident. Diabetes type 2. History of chronic obstructive pulmonary disease. History of anemia. - hold Coreg & Losaartan - IVNS 500 mls bolus then 100/hr X 5 hours - Albumin 25%, 25 gms IV X 1 - get Lactic acid level - repeat Procalcitonin in am - complete AB's per ID rec's (Merrem) - continue Daily SAT and SBT assessment as tolerated - may be headed for a tracheostomy if AMS is persistent, hopefully e ncephalopathy improves as she gets better - continue care as below otherwise; - keep set rate at 12/min - continue to wean supplemental oxygen for target O2 sat's > 90% acutely - VAP bundle addressed - continue lung protective strategies - continue bronchodilators with pulmonary hygiene per RT - wean per pulmonary driven protocols otherwise - continue accuchecks with glycemic control per SSI (While critically ill target blood glucose of 140-180 mg/dL; avoid hypoglycemia) - continue fentanyl for sedation / analgesia - sedation prn for target RASS 0 to -1 - avoid nephrotoxins, renally dose all medications - continue to avoid benzodiazepine's, reduce the possibility of delirium - prn analgesia per CPOT score - Maintenance of sleep-wake cycle, avoid delirium - continue enteral nutritional support at goal rate as tolerated - G.I. & VTE prophylaxis - PT/OT/ROM exercises - continue mobility protocols for pressure ulcer prophylaxis - Monitor hemodynamics closely - continue other care per attending / other consultants - discharge planning ongoing concurrently .... Re-evaluate in am & prn CONDITION: CRITICAL PROGNOSIS: GUARDED CODE STATUS: FULL CODE The high probability of a clinically significant, sudden or life-threatening deterioration of the [respiratory, cardiovascular, renal & neurologic] system(s) required my full and direct attention, intervention and personal management. The aggregate critical care time was [35] minutes without overlap. Time includes spent on; [x] Data Review and interpretation [x] Patient assessment and monitoring of vital signs [x] Documentation [x] Medication orders and management Subjective Date of service: 04/13/20 Principal diagnosis: Ac on ch hypoxemic and hypercapnic resp failure; PUI COVID- 19 infxn; AMS Interval history: Patient is seen today for: Acute on chronic hypoxemic and hypercapnic resp failure; PUI Coronavirus-19 infection; Acute encephalopathy; ESRD; Morbid obesity; DM II; AE-COPD Seen and examined at bedside; 24hour events reviewed; nursing and respiratory care staff consulted; no adverse overnight events reported to me; resting peacefully in bed; remains on MVS; hypotensive post dialysis now; AMS is persistent; weaning held earlier; no emesis or overt aspiration; no high grade fevers Objective Vital Signs - 12hr 04/13/20 04/13/20 04/13/20 02:16 02:30 02:46 Temperature Pulse Rate 86 91 H 84 Pulse Rate [ From Monitor] Respiratory 11 L 15 12 Rate Blood Pressure 143/62 143/62 143/62 O2 Sat by Pulse 99 99 98 Oximetry O2 Sat by Pulse Oximetry [ Anterior Bilateral Throughout] 04/13/20 04/13/20 04/13/20 03:00 03:15 03:30 Temperature Pulse Rate 78 89 87 Pulse Rate [ From Monitor] Respiratory 12 18 12 Rate Blood Pressure 143/62 81/43 109/41 O2 Sat by Pulse 98 99 99 Oximetry O2 Sat by Pulse Oximetry [ Anterior Bilateral Throughout] 04/13/20 04/13/20 04/13/20 03:46 04:00 04:01 Temperature 98.9 F Pulse Rate 80 75 75 Pulse Rate [ 75 From Monitor] Respiratory 12 12 Rate Blood Pressure 109/41 109/41 84/31 O2 Sat by Pulse 99 98 98 Oximetry O2 Sat by Pulse Oximetry [ Anterior Bilateral Throughout] 04/13/20 04/13/20 04/13/20 04:16 04:30 04:46 Temperature Pulse Rate 79 76 72 Pulse Rate [ From Monitor] Respiratory 12 12 12 Rate Blood Pressure 124/41 124/41 124/41 O2 Sat by Pulse 99 98 98 Oximetry O2 Sat by Pulse Oximetry [ Anterior Bilateral Throughout] 04/13/20 04/13/20 04/13/20 05:00 05:16 05:30 Temperature Pulse Rate 84 83 78 Pulse Rate [ From Monitor] Respiratory 12 12 12 Rate Blood Pressure 139/43 139/43 139/43 O2 Sat by Pulse 98 99 98 Oximetry O2 Sat by Pulse Oximetry [ Anterior Bilateral Throughout] 04/13/20 04/13/20 04/13/20 05:46 06:00 06:16 Temperature Pulse Rate 77 73 73 Pulse Rate [ From Monitor] Respiratory 12 12 12 Rate Blood Pressure 139/43 139/43 103/37 O2 Sat by Pulse 98 98 97 Oximetry O2 Sat by Pulse Oximetry [ Anterior Bilateral Throughout] 04/13/20 04/13/20 04/13/20 06:30 06:46 07:00 Temperature Pulse Rate 73 74 73 Pulse Rate [ From Monitor] Respiratory 14 13 13 Rate Blood Pressure 103/37 103/37 86/30 O2 Sat by Pulse 98 98 97 Oximetry O2 Sat by Pulse Oximetry [ Anterior Bilateral Throughout] 04/13/20 04/13/20 04/13/20 07:06 07:16 07:30 Temperature Pulse Rate 84 73 76 Pulse Rate [ From Monitor] Respiratory 13 13 Rate Blood Pressure 86/30 86/30 86/30 O2 Sat by Pulse 98 98 99 Oximetry O2 Sat by Pulse Oximetry [ Anterior Bilateral Throughout] 04/13/20 04/13/20 04/13/20 07:46 08:00 08:16 Temperature 99.2 F Pulse Rate 74 89 72 Pulse Rate [ From Monitor] Respiratory 12 12 13 Rate Blood Pressure 86/30 128/44 128/44 O2 Sat by Pulse 99 98 98 Oximetry O2 Sat by Pulse Oximetry [ Anterior Bilateral Throughout] 04/13/20 04/13/20 04/13/20 08:30 08:46 08:55 Temperature 99.2 F Pulse Rate 77 73 82 Pulse Rate [ From Monitor] Respiratory 12 14 13 Rate Blood Pressure 128/44 128/44 137/44 O2 Sat by Pulse 99 97 Oximetry O2 Sat by Pulse 99 Oximetry [ Anterior Bilateral Throughout] 04/13/20 04/13/20 04/13/20 09:00 09:16 09:28 Temperature Pulse Rate 84 77 81 Pulse Rate [ From Monitor] Respiratory 13 12 Rate Blood Pressure 137/44 137/44 163/54 O2 Sat by Pulse 98 98 Oximetry O2 Sat by Pulse Oximetry [ Anterior Bilateral Throughout] 04/13/20 04/13/20 04/13/20 09:30 09:38 09:39 Temperature Pulse Rate 83 89 Pulse Rate [ From Monitor] Respiratory 18 Rate Blood Pressure 163/54 163/65 163/65 O2 Sat by Pulse 97 Oximetry O2 Sat by Pulse Oximetry [ Anterior Bilateral Throughout] 04/13/20 04/13/20 04/13/20 09:45 10:00 10:15 Temperature Pulse Rate 82 78 79 Pulse Rate [ From Monitor] Respiratory 11 L 12 Rate Blood Pressure 150/47 163/54 84/32 O2 Sat by Pulse 97 98 Oximetry O2 Sat by Pulse Oximetry [ Anterior Bilateral Throughout] 04/13/20 04/13/20 04/13/20 10:16 10:17 10:30 Temperature Pulse Rate 73 75 78 Pulse Rate [ From Monitor] Respiratory 12 12 Rate Blood Pressure 84/32 97/35 103/39 O2 Sat by Pulse 97 96 Oximetry O2 Sat by Pulse Oximetry [ Anterior Bilateral Throughout] 04/13/20 04/13/20 04/13/20 10:45 10:48 11:00 Temperature Pulse Rate 73 71 73 Pulse Rate [ From Monitor] Respiratory 12 13 Rate Blood Pressure 83/32 93/32 91/34 O2 Sat by Pulse 95 97 Oximetry O2 Sat by Pulse Oximetry [ Anterior Bilateral Throughout] 04/13/20 04/13/20 04/13/20 11:15 11:18 11:30 Temperature Pulse Rate 72 70 73 Pulse Rate [ From Monitor] Respiratory 12 12 Rate Blood Pressure 90/33 90/33 92/35 O2 Sat by Pulse 94 98 97 Oximetry O2 Sat by Pulse Oximetry [ Anterior Bilateral Throughout] 04/13/20 04/13/20 04/13/20 11:45 12:00 12:10 Temperature 99.0 F Pulse Rate 70 70 Pulse Rate [ From Monitor] Respiratory 12 12 12 Rate Blood Pressure 91/33 101/34 O2 Sat by Pulse 97 97 98 Oximetry O2 Sat by Pulse Oximetry [ Anterior Bilateral Throughout] 04/13/20 04/13/20 04/13/20 12:15 12:30 12:45 Temperature Pulse Rate 70 68 75 Pulse Rate [ From Monitor] Respiratory 11 L 12 Rate Blood Pressure 96/39 100/35 115/42 O2 Sat by Pulse 97 97 Oximetry O2 Sat by Pulse Oximetry [ Anterior Bilateral Throughout] 04/13/20 04/13/20 04/13/20 12:46 12:58 13:00 Temperature Pulse Rate 72 78 76 Pulse Rate [ From Monitor] Respiratory 16 13 Rate Blood Pressure 115/42 124/41 124/41 O2 Sat by Pulse 90 98 Oximetry O2 Sat by Pulse Oximetry [ Anterior Bilateral Throughout] 04/13/20 04/13/20 13:16 13:30 Temperature Pulse Rate 76 72 Pulse Rate [ From Monitor] Respiratory 12 12 Rate Blood Pressure 98/31 98/35 O2 Sat by Pulse 94 93 Oximetry O2 Sat by Pulse Oximetry [ Anterior Bilateral Throughout] Constitutional: appears uncomfortable, other (middle aged obese female with mil;dly increased respiratory effort at rest) Eyes: non-icteric ENT: oropharynx moist, other (ETT 23 cm PARRISH) Neck: supple, no lymphadenopathy, no JVD Effort: mildly labored Ascultation: Bilateral: diminished breath sounds, rhonchi Percussion: Bilateral: not dull Cardiovascular: regular rate and rhythm Gastrointestinal: normoactive bowel sounds, soft, non-tender, non-distended (protuberant) Integumentary: erythema (right BKA stump) Extremities: no cyanosis, no ischemia or petechiae, edema (trace) Neurologic: non-focal exam (grossly), pupils equal and round, unable to assess Psychiatric: other (unable to assess re: AMS) CBC and BMP: 04/12/20 08:14 04/13/20 09:09 ABG, PT/INR, D-dimer: ABG ABG pH 7.383 (7.320-7.450) 04/13/20 03:40 POC ABG pCO2 42.4 mmHg (32.0-48.0) 04/13/20 03:40 ABG pCO2 54.0 mm Hg 04/11/20 03:44 POC ABG pO2 95.7 mmHg (83-108) 04/13/20 03:40 ABG pO2 73.4 mm Hg (80.0-90.0) L 04/11/20 03:44 POC ABG HCO3 24.7 04/13/20 03:40 ABG O2 Saturation 95.0 % (95.0-99.0) 04/11/20 03:44 PT/INR, D-dimer PT 13.8 Sec. (12.2-14.9) 04/06/20 14:30 INR 1.04 (0.87-1.13) 04/06/20 14:30 D-Dimer 1063.66 ng/mlDDU (0-234) H 04/07/20 09:34 Abnormal lab findings: Abnormal Labs 04/06/20 04/06/20 04/06/20 13:34 14:30 14:30 WBC 19.2 H RBC Hgb Hct RDW 17.8 H Seg Neuts % (Manual) 90.0 H Lymphocytes % (Manual) 4.0 L Basophils % (Manual) Seg Neutrophils # Man 17.3 H Lymphocytes # (Manual) 0.8 L Monocytes # (Manual) Eosinophils # (Manual) Basophils # (Manual) D-Dimer ABG pH POC ABG pCO2 POC ABG pO2 ABG pO2 ABG HCO3 ABG Base Excess ABG Hemoglobin ABG Sodium ABG Chloride ABG Glucose Oxyhemoglobin Sodium Potassium 5.2 H Chloride Carbon Dioxide 17 L BUN 53 H Creatinine 7.8 H Glucose 144 H POC Glucose Calcium Magnesium Ferritin Alkaline Phosphatase 738 H Lactate Dehydrogenase Total Creatine Kinase 23 L Troponin T 0.224 H* C-Reactive Protein Albumin 3.1 L Triglycerides 342 H Cholesterol 223 H HDL Cholesterol 35 L Arterial Blood Glucose Arterial Blood Ionized Calcium Urine WBC (Auto) > 182.0 H Salicylates Acetaminophen Hepatitis C Antibody 04/06/20 04/06/20 04/06/20 14:30 14:30 14:30 WBC RBC Hgb Hct RDW Seg Neuts % (Manual) Lymphocytes % (Manual) Basophils % (Manual) Seg Neutrophils # Man Lymphocytes # (Manual) Monocytes # (Manual) Eosinophils # (Manual) Basophils # (Manual) D-Dimer ABG pH POC ABG pCO2 POC ABG pO2 ABG pO2 ABG HCO3 ABG Base Excess ABG Hemoglobin ABG Sodium ABG Chloride ABG Glucose Oxyhemoglobin Sodium Potassium Chloride Carbon Dioxide BUN Creatinine Glucose POC Glucose Calcium Magnesium 2.50 H Ferritin Alkaline Phosphatase Lactate Dehydrogenase Total Creatine Kinase 24 L Troponin T C-Reactive Protein Albumin Triglycerides Cholesterol HDL Cholesterol Arterial Blood Glucose Arterial Blood Ionized Calcium Urine WBC (Auto) Salicylates < 0.3 L Acetaminophen 5.0 L Hepatitis C Antibody 04/06/20 04/06/20 04/07/20 14:39 20:00 00:48 WBC RBC Hgb Hct RDW Seg Neuts % (Manual) Lymphocytes % (Manual) Basophils % (Manual) Seg Neutrophils # Man Lymphocytes # (Manual) Monocytes # (Manual) Eosinophils # (Manual) Basophils # (Manual) D-Dimer ABG pH 7.281 L 7.306 L POC ABG pCO2 POC ABG pO2 78.0 L ABG pO2 133.8 H ABG HCO3 18.3 L ABG Base Excess -7.8 L ABG Hemoglobin 10.8 L 10.8 L ABG Sodium ABG Chloride 108.0 H ABG Glucose Oxyhemoglobin Sodium Potassium Chloride Carbon Dioxide BUN Creatinine Glucose POC Glucose 69 L Calcium Magnesium Ferritin Alkaline Phosphatase Lactate Dehydrogenase Total Creatine Kinase Troponin T C-Reactive Protein Albumin Triglycerides Cholesterol HDL Cholesterol Arterial Blood Glucose Arterial Blood Ionized Calcium Urine WBC (Auto) Salicylates Acetaminophen Hepatitis C Antibody 04/07/20 04/07/20 04/07/20 09:34 09:34 09:34 WBC RBC Hgb Hct RDW Seg Neuts % (Manual) Lymphocytes % (Manual) Basophils % (Manual) Seg Neutrophils # Man Lymphocytes # (Manual) Monocytes # (Manual) Eosinophils # (Manual) Basophils # (Manual) D-Dimer 1063.66 H ABG pH POC ABG pCO2 POC ABG pO2 ABG pO2 ABG HCO3 ABG Base Excess ABG Hemoglobin ABG Sodium ABG Chloride ABG Glucose Oxyhemoglobin Sodium Potassium Chloride Carbon Dioxide BUN Creatinine Glucose POC Glucose Calcium Magnesium Ferritin 743.0 H Alkaline Phosphatase Lactate Dehydrogenase 195 H Total Creatine Kinase Troponin T C-Reactive Protein 7.50 H Albumin Triglycerides Cholesterol HDL Cholesterol Arterial Blood Glucose Arterial Blood Ionized Calcium Urine WBC (Auto) Salicylates Acetaminophen Hepatitis C Antibody 04/07/20 04/07/20 04/07/20 10:01 16:38 23:51 WBC RBC Hgb Hct RDW Seg Neuts % (Manual) Lymphocytes % (Manual) Basophils % (Manual) Seg Neutrophils # Man Lymphocytes # (Manual) Monocytes # (Manual) Eosinophils # (Manual) Basophils # (Manual) D-Dimer ABG pH POC ABG pCO2 POC ABG pO2 79.8 L ABG pO2 ABG HCO3 ABG Base Excess ABG Hemoglobin 10.3 L ABG Sodium ABG Chloride 109.0 H ABG Glucose Oxyhemoglobin Sodium Potassium Chloride Carbon Dioxide BUN Creatinine Glucose POC Glucose 117 H Calcium Magnesium Ferritin Alkaline Phosphatase Lactate Dehydrogenase Total Creatine Kinase Troponin T C-Reactive Protein Albumin Triglycerides Cholesterol HDL Cholesterol Arterial Blood Glucose Arterial Blood Ionized Calcium 4.5 L Urine WBC (Auto) Salicylates Acetaminophen Hepatitis C Antibody Reactive A 04/08/20 04/08/20 04/08/20 04:58 12:48 17:03 WBC RBC Hgb Hct RDW Seg Neuts % (Manual) Lymphocytes % (Manual) Basophils % (Manual) Seg Neutrophils # Man Lymphocytes # (Manual) Monocytes # (Manual) Eosinophils # (Manual) Basophils # (Manual) D-Dimer ABG pH POC ABG pCO2 POC ABG pO2 ABG pO2 ABG HCO3 ABG Base Excess ABG Hemoglobin ABG Sodium ABG Chloride ABG Glucose Oxyhemoglobin Sodium Potassium Chloride Carbon Dioxide BUN Creatinine Glucose POC Glucose 129 H 155 H 201 H Calcium Magnesium Ferritin Alkaline Phosphatase Lactate Dehydrogenase Total Creatine Kinase Troponin T C-Reactive Protein Albumin Triglycerides Cholesterol HDL Cholesterol Arterial Blood Glucose Arterial Blood Ionized Calcium Urine WBC (Auto) Salicylates Acetaminophen Hepatitis C Antibody 04/08/20 04/08/20 04/09/20 23:49 Unknown 05:31 WBC RBC Hgb Hct RDW Seg Neuts % (Manual) Lymphocytes % (Manual) Basophils % (Manual) Seg Neutrophils # Man Lymphocytes # (Manual) Monocytes # (Manual) Eosinophils # (Manual) Basophils # (Manual) D-Dimer ABG pH 7.349 L POC ABG pCO2 POC ABG pO2 ABG pO2 117.3 H ABG HCO3 ABG Base Excess ABG Hemoglobin 7.4 L ABG Sodium ABG Chloride ABG Glucose Oxyhemoglobin Sodium Potassium Chloride Carbon Dioxide BUN Creatinine Glucose POC Glucose 178 H 248 H Calcium Magnesium Ferritin Alkaline Phosphatase Lactate Dehydrogenase Total Creatine Kinase Troponin T C-Reactive Protein Albumin Triglycerides Cholesterol HDL Cholesterol Arterial Blood Glucose Arterial Blood Ionized Calcium Urine WBC (Auto) Salicylates Acetaminophen Hepatitis C Antibody 04/09/20 04/09/20 04/09/20 11:39 17:35 Unknown WBC RBC Hgb Hct RDW Seg Neuts % (Manual) Lymphocytes % (Manual) Basophils % (Manual) Seg Neutrophils # Man Lymphocytes # (Manual) Monocytes # (Manual) Eosinophils # (Manual) Basophils # (Manual) D-Dimer ABG pH POC ABG pCO2 51.6 H POC ABG pO2 ABG pO2 ABG HCO3 ABG Base Excess ABG Hemoglobin 11.4 L ABG Sodium 130.1 L ABG Chloride ABG Glucose 249 H Oxyhemoglobin Sodium Potassium Chloride Carbon Dioxide BUN Creatinine Glucose POC Glucose 319 H 254 H Calcium Magnesium Ferritin Alkaline Phosphatase Lactate Dehydrogenase Total Creatine Kinase Troponin T C-Reactive Protein Albumin Triglycerides Cholesterol HDL Cholesterol Arterial Blood Glucose 249 H Arterial Blood Ionized Calcium 4.1 L Urine WBC (Auto) Salicylates Acetaminophen Hepatitis C Antibody 04/10/20 04/10/20 04/10/20 00:00 03:15 05:49 WBC RBC Hgb Hct RDW Seg Neuts % (Manual) Lymphocytes % (Manual) Basophils % (Manual) Seg Neutrophils # Man Lymphocytes # (Manual) Monocytes # (Manual) Eosinophils # (Manual) Basophils # (Manual) D-Dimer ABG pH POC ABG pCO2 48.2 H POC ABG pO2 ABG pO2 ABG HCO3 ABG Base Excess ABG Hemoglobin 9.9 L ABG Sodium 135.4 L ABG Chloride ABG Glucose 215 H Oxyhemoglobin Sodium Potassium Chloride Carbon Dioxide BUN Creatinine Glucose POC Glucose 194 H 221 H Calcium Magnesium Ferritin Alkaline Phosphatase Lactate Dehydrogenase Total Creatine Kinase Troponin T C-Reactive Protein Albumin Triglycerides Cholesterol HDL Cholesterol Arterial Blood Glucose 215 H Arterial Blood Ionized Calcium 4.5 L Urine WBC (Auto) Salicylates Acetaminophen Hepatitis C Antibody 04/10/20 04/10/20 04/10/20 08:18 08:18 12:22 WBC 28.9 H RBC 3.38 L Hgb 9.5 L Hct 30.1 L RDW 16.9 H Seg Neuts % (Manual) 87.0 H Lymphocytes % (Manual) 9.0 L Basophils % (Manual) 2.0 H Seg Neutrophils # Man 25.1 H Lymphocytes # (Manual) Monocytes # (Manual) Eosinophils # (Manual) Basophils # (Manual) 0.6 H D-Dimer ABG pH POC ABG pCO2 POC ABG pO2 ABG pO2 ABG HCO3 ABG Base Excess ABG Hemoglobin ABG Sodium ABG Chloride ABG Glucose Oxyhemoglobin Sodium 134 L Potassium 3.5 L D Chloride 94.9 L Carbon Dioxide BUN 38 H Creatinine 5.5 H Glucose 230 H POC Glucose 218 H Calcium Magnesium Ferritin Alkaline Phosphatase Lactate Dehydrogenase Total Creatine Kinase Troponin T C-Reactive Protein Albumin Triglycerides Cholesterol HDL Cholesterol Arterial Blood Glucose Arterial Blood Ionized Calcium Urine WBC (Auto) Salicylates Acetaminophen Hepatitis C Antibody 04/10/20 04/10/20 04/10/20 17:27 18:08 23:29 WBC RBC Hgb Hct RDW Seg Neuts % (Manual) Lymphocytes % (Manual) Basophils % (Manual) Seg Neutrophils # Man Lymphocytes # (Manual) Monocytes # (Manual) Eosinophils # (Manual) Basophils # (Manual) D-Dimer ABG pH POC ABG pCO2 POC ABG pO2 ABG pO2 ABG HCO3 ABG Base Excess ABG Hemoglobin ABG Sodium ABG Chloride ABG Glucose Oxyhemoglobin Sodium Potassium Chloride Carbon Dioxide BUN Creatinine Glucose POC Glucose 218 H 223 H 166 H Calcium Magnesium Ferritin Alkaline Phosphatase Lactate Dehydrogenase Total Creatine Kinase Troponin T C-Reactive Protein Albumin Triglycerides Cholesterol HDL Cholesterol Arterial Blood Glucose Arterial Blood Ionized Calcium Urine WBC (Auto) Salicylates Acetaminophen Hepatitis C Antibody 04/11/20 04/11/20 04/11/20 03:44 05:28 07:39 WBC 26.9 H RBC 3.32 L Hgb 9.4 L Hct 29.5 L RDW 17.2 H Seg Neuts % (Manual) 83.0 H Lymphocytes % (Manual) 10.0 L Basophils % (Manual) Seg Neutrophils # Man 22.3 H Lymphocytes # (Manual) Monocytes # (Manual) 1.1 H Eosinophils # (Manual) 0.5 H Basophils # (Manual) D-Dimer ABG pH 7.313 L POC ABG pCO2 POC ABG pO2 ABG pO2 73.4 L ABG HCO3 26.7 H ABG Base Excess ABG Hemoglobin 11.0 L ABG Sodium ABG Chloride ABG Glucose Oxyhemoglobin 92.8 L Sodium Potassium Chloride Carbon Dioxide BUN Creatinine Glucose POC Glucose 164 H Calcium Magnesium Ferritin Alkaline Phosphatase Lactate Dehydrogenase Total Creatine Kinase Troponin T C-Reactive Protein Albumin Triglycerides Cholesterol HDL Cholesterol Arterial Blood Glucose Arterial Blood Ionized Calcium Urine WBC (Auto) Salicylates Acetaminophen Hepatitis C Antibody 04/11/20 04/11/20 04/11/20 07:39 12:25 19:02 WBC RBC Hgb Hct RDW Seg Neuts % (Manual) Lymphocytes % (Manual) Basophils % (Manual) Seg Neutrophils # Man Lymphocytes # (Manual) Monocytes # (Manual) Eosinophils # (Manual) Basophils # (Manual) D-Dimer ABG pH POC ABG pCO2 POC ABG pO2 ABG pO2 ABG HCO3 ABG Base Excess ABG Hemoglobin ABG Sodium ABG Chloride ABG Glucose Oxyhemoglobin Sodium Potassium Chloride Carbon Dioxide BUN 48 H Creatinine 6.1 H Glucose 122 H POC Glucose 175 H 175 H Calcium 8.3 L Magnesium Ferritin Alkaline Phosphatase Lactate Dehydrogenase Total Creatine Kinase Troponin T C-Reactive Protein Albumin Triglycerides Cholesterol HDL Cholesterol Arterial Blood Glucose Arterial Blood Ionized Calcium Urine WBC (Auto) Salicylates Acetaminophen Hepatitis C Antibody 04/12/20 04/12/20 04/12/20 00:02 05:51 08:14 WBC 28.0 H RBC 3.29 L Hgb 9.5 L Hct 29.1 L RDW 16.9 H Seg Neuts % (Manual) 88.0 H Lymphocytes % (Manual) 7.0 L Basophils % (Manual) Seg Neutrophils # Man 24.6 H Lymphocytes # (Manual) Monocytes # (Manual) Eosinophils # (Manual) 0.6 H Basophils # (Manual) D-Dimer ABG pH POC ABG pCO2 POC ABG pO2 ABG pO2 ABG HCO3 ABG Base Excess ABG Hemoglobin ABG Sodium ABG Chloride ABG Glucose Oxyhemoglobin Sodium Potassium Chloride Carbon Dioxide BUN Creatinine Glucose POC Glucose 146 H 151 H Calcium Magnesium Ferritin Alkaline Phosphatase Lactate Dehydrogenase Total Creatine Kinase Troponin T C-Reactive Protein Albumin Triglycerides Cholesterol HDL Cholesterol Arterial Blood Glucose Arterial Blood Ionized Calcium Urine WBC (Auto) Salicylates Acetaminophen Hepatitis C Antibody 04/12/20 04/12/20 04/12/20 08:14 12:21 17:26 WBC RBC Hgb Hct RDW Seg Neuts % (Manual) Lymphocytes % (Manual) Basophils % (Manual) Seg Neutrophils # Man Lymphocytes # (Manual) Monocytes # (Manual) Eosinophils # (Manual) Basophils # (Manual) D-Dimer ABG pH POC ABG pCO2 POC ABG pO2 ABG pO2 ABG HCO3 ABG Base Excess ABG Hemoglobin ABG Sodium ABG Chloride ABG Glucose Oxyhemoglobin Sodium Potassium 3.3 L Chloride Carbon Dioxide BUN 32 H Creatinine 4.3 H Glucose 188 H POC Glucose 196 H 235 H Calcium Magnesium Ferritin Alkaline Phosphatase Lactate Dehydrogenase Total Creatine Kinase Troponin T C-Reactive Protein Albumin Triglycerides Cholesterol HDL Cholesterol Arterial Blood Glucose Arterial Blood Ionized Calcium Urine WBC (Auto) Salicylates Acetaminophen Hepatitis C Antibody 04/12/20 04/13/20 04/13/20 23:34 03:40 05:33 WBC RBC Hgb Hct RDW Seg Neuts % (Manual) Lymphocytes % (Manual) Basophils % (Manual) Seg Neutrophils # Man Lymphocytes # (Manual) Monocytes # (Manual) Eosinophils # (Manual) Basophils # (Manual) D-Dimer ABG pH POC ABG pCO2 POC ABG pO2 ABG pO2 ABG HCO3 ABG Base Excess ABG Hemoglobin 9.4 L ABG Sodium 133.6 L ABG Chloride ABG Glucose 172 H Oxyhemoglobin Sodium Potassium Chloride Carbon Dioxide BUN Creatinine Glucose POC Glucose 171 H 167 H Calcium Magnesium Ferritin Alkaline Phosphatase Lactate Dehydrogenase Total Creatine Kinase Troponin T C-Reactive Protein Albumin Triglycerides Cholesterol HDL Cholesterol Arterial Blood Glucose 172 H Arterial Blood Ionized Calcium Urine WBC (Auto) Salicylates Acetaminophen Hepatitis C Antibody 04/13/20 04/13/20 04/13/20 07:49 09:09 11:34 WBC RBC Hgb Hct RDW Seg Neuts % (Manual) Lymphocytes % (Manual) Basophils % (Manual) Seg Neutrophils # Man Lymphocytes # (Manual) Monocytes # (Manual) Eosinophils # (Manual) Basophils # (Manual) D-Dimer ABG pH POC ABG pCO2 POC ABG pO2 ABG pO2 ABG HCO3 ABG Base Excess ABG Hemoglobin ABG Sodium ABG Chloride ABG Glucose Oxyhemoglobin Sodium Potassium Chloride Carbon Dioxide 31 H BUN 44 H 43 H Creatinine 5.0 H 4.9 H Glucose 164 H 164 H POC Glucose 155 H Calcium Magnesium Ferritin Alkaline Phosphatase Lactate Dehydrogenase Total Creatine Kinase Troponin T C-Reactive Protein Albumin Triglycerides Cholesterol HDL Cholesterol Arterial Blood Glucose Arterial Blood Ionized Calcium Urine WBC (Auto) Salicylates Acetaminophen Hepatitis C Antibody Chest x-ray: image reviewed Allied health notes reviewed: nursing
[2020-04-13] MEDS: MEROPENEM/NS 1 GRAM/100 ML 1 GRAM/100 ML BAG IV SCH (17:50)
[2020-04-13] MEDS: INSULIN GLARGINE 100 UNITS/ML SUB-Q SCH (17:51)
[2020-04-13] MEDS: hydrALAZINE 100 MG TAB PO SCH (22:14)
[2020-04-14] MEDS: fentaNYL DRIP Premix 2,000 MCG/100 ML BAG IV SCH ×3 (03:32→22:15)
[2020-04-14] MEDS: INSULIN REGULAR, HUMAN 100 UNIT/ML 3ML VIAL SUB-Q SCH ×4 (03:33→17:12)
[2020-04-14] MEDS: hydrALAZINE 100 MG TAB PO SCH ×2 (08:20→09:55)
--- NOTE | 2020-04-14 08:28 | Progress Note ---
Assessment and Plan Assessment and plan: Severe sepsis. Present on admission with hypothermia, leukocytosis, altered mental status, likely due to bilateral pneumonia. F/U Blood Cx. Cont. Abx pre ID Bilateral pneumonia. Aspiration pneumonia/HAP Severe UTI. Bains catheter with purulent urine. Acute hypoxemic respiratory failure. Intubated for airway protection, O2 sats down to 87%. Toxic metabolic encephalopathy. Etiology secondary to sepsis End-stage renal disease on hemodialysis Extensive Candidal intertrigo in groin and vagina. Cont. Fluconazole History COVID-19 infection (01/07/2020) 04/08/2020. Patient remains intubated on mechanical ventilation with AC mode ventilation rate 12, tidal volume 450, FiO2 40% and a PEEP of 6. Continue weaning per protocols. Patient with ESRD and continue TTS schedule per nephrology. Patient does have a history of COVID-19 infection(01/07/20) but negative testing April 07. Follow-up blood/urine/sputum culture. Continue antibiotics per ID recommendations. 04/09/2020. Patient not tolerating PSV 12/6 with FiO2 of 30%. Continue hemodialysis per nephrology recommendations. Continue IV antibiotics per ID recommendations. Blood cultures no growth to date. Respiratory therapy reports patient with accelerated hypertension and apneic episodes on PSV ventilation. Await pulmonary recommendations. 04/10/2020. Patient remains on mechanical ventilation AC mode rate 12, tidal volume 450, FiO2 30% and a PEEP of 6. Continue PSV trials per protocols. Continue hemodialysis per nephrology recommendations. Continue anti-infectives of fluconazole and cefepime. Follow-up blood/urine/sputum culture. ID, pulmonary and nephrology following. 04/11/2020; patient remains on mechanical ventilation AC mode rate 12, tidal volume 450, FiO2 of 30 and PEEP of 6. Continue PSV trials per protocols. continue hemodialysis per nephrology. ID changed antibiotics to meropenem. Blood culture grew staph epidermidis likey contaminant. 04/12/2020; patient is intubated, patient open eyes spontaneously. Neurology consulted and continue on replacement treatment. EEG is pending. Recommend MRI. Patient is on meropenem per ID recommendation. Pulmonary is following. Patient is on spontaneous breathing trial 04/13/2020; patient is intubated. Patient's blood pressure was high yesterday, amlodipine and hydralazine was added. Overnight his blood pressure was low and will also BP medications. We will continue to follow. 04/14/2020; patient is intubated and blood pressure is on the low side of normal. Patient is on meropenem 5/5. The high probability of a clinically significant, sudden or life threatening deterioration of the [respiratory] system(s) required my full and direct attention, intervention and personal management. The aggregate critical care time was [33] minutes. This time is in addition to time spent performing reported procedures but includes the following: [x] Data Review and interpretation [x] Patient assessment and monitoring of vital signs [x] Documentation [x] Medication orders and management History Interval history: 49 years old female with history of asthma, hypertension, end-stage renal disease on hemodialysis, diabetes mellitus, bipolar disorder, morbid obesity, CVA, resident of a custodial, admitted on 04/06/2020 secondary to be found Unresponsiveness after hemodialysis. Patient is unable to provide history, currently intubated. Patient received hemodialysis and after completion she became unresponsive. Upon EMS arrival, blood pressure was 90/60, HR 88, temperature 97.2. Per records, patient was not complaining of any symptoms. On arrival, temperature 94.1, HR 66, RR 18, O2 sat 87%, BP 131/111. Initial WBC 19.2. Urinalysis showed more than 182 WBCs and moderate leukocyte esterase. Chest x-ray shows bibasilar infiltrates. Patient was intubated in the emergency room to protect airway. Bains catheter was placed yielding purulent urine. No new issues overnight. Patient remains intubated on mechanical ventilation History Interval history: Patient was seen and evaluated this morning Patient is intubated and on mechanical ventilation Patient open her eyes spontaneously Hospitalist Physical - Physical exam Narrative exam: Continue intubated and on mechanical ventilation. The patient appeared well nourished and normally developed. Vital signs as documented. Head exam is unremarkable. No scleral icterus . Neck is without jugular venous distension, thyromegaly, or carotid bruits. Lungs are clear to auscultation. Cardiac exam reveals regular rate and Rhythm. Abdominal exam reveals normal bowel sounds, nontender, no organomegaly. Extremities are nonedematous and both femoral and pedal pulses are normal. MEDIA CLERK: Patient open his eyes spontaneously. - Constitutional Vitals: Temp Pulse Resp BP Pulse Ox 98.8 F 92 H 13 131/38 96 04/14/20 03:48 04/14/20 03:56 04/14/20 02:30 04/14/20 03:56 04/14/20 03:56 General appearance: Present: severe distress, other (Intubated on mechanical ventilation) HEART Score - HEART Score Troponin: Troponin T 0.224 ng/mL (0.00-0.029) H* 04/06/20 14:30 Results - Labs CBC & Chem 7: 04/12/20 08:14 04/13/20 09:09 Labs: Laboratory Last Values WBC 28.0 K/mm3 (4.5-11.0) H 04/12/20 08:14 RBC 3.29 M/mm3 (3.65-5.03) L 04/12/20 08:14 Hgb 9.5 gm/dl (10.1-14.3) L 04/12/20 08:14 Hct 29.1 % (30.3-42.9) L 04/12/20 08:14 MCV 88 fl (79-97) 04/12/20 08:14 MCH 29 pg (28-32) 04/12/20 08:14 MCHC 33 % (30-34) 04/12/20 08:14 RDW 16.9 % (13.2-15.2) H 04/12/20 08:14 Plt Count 347 K/mm3 (140-440) 04/12/20 08:14 Add Manual Diff Complete 04/12/20 08:14 Total Counted 100 04/12/20 08:14 Seg Neuts % (Manual) 88.0 % (40.0-70.0) H 04/12/20 08:14 Band Neutrophils % 0 % 04/12/20 08:14 Lymphocytes % (Manual) 7.0 % (13.4-35.0) L 04/12/20 08:14 Reactive Lymphs % (Man) 0 % 04/12/20 08:14 Monocytes % (Manual) 2.0 % (0.0-7.3) 04/12/20 08:14 Eosinophils % (Manual) 2.0 % (0.0-4.3) 04/12/20 08:14 Basophils % (Manual) 0 % (0.0-1.8) 04/12/20 08:14 Metamyelocytes % 0 % 04/12/20 08:14 Myelocytes % 1.0 % 04/12/20 08:14 Promyelocytes % 0 % 04/12/20 08:14 Blast Cells % 0 % 04/12/20 08:14 Nucleated RBC % Not Reportable 04/12/20 08:14 Seg Neutrophils # Man 24.6 K/mm3 (1.8-7.7) H 04/12/20 08:14 Band Neutrophils # 0.0 K/mm3 04/12/20 08:14 Lymphocytes # (Manual) 2.0 K/mm3 (1.2-5.4) 04/12/20 08:14 Abs React Lymphs (Man) 0.0 K/mm3 04/12/20 08:14 Monocytes # (Manual) 0.6 K/mm3 (0.0-0.8) 04/12/20 08:14 Eosinophils # (Manual) 0.6 K/mm3 (0.0-0.4) H 04/12/20 08:14 Basophils # (Manual) 0.0 K/mm3 (0.0-0.1) 04/12/20 08:14 Metamyelocytes # 0.0 K/mm3 04/12/20 08:14 Myelocytes # 0.3 K/mm3 04/12/20 08:14 Promyelocytes # 0.0 K/mm3 04/12/20 08:14 Blast Cells # 0.0 K/mm3 04/12/20 08:14 WBC Morphology Not Reportable 04/12/20 08:14 Hypersegmented Neuts Not Reportable 04/12/20 08:14 Hyposegmented Neuts Not Reportable 04/12/20 08:14 Hypogranular Neuts Not Reportable 04/12/20 08:14 Smudge Cells Not Reportable 04/12/20 08:14 Toxic Granulation Not Reportable 04/12/20 08:14 Toxic Vacuolation Not Reportable 04/12/20 08:14 Dohle Bodies Not Reportable 04/12/20 08:14 Pelger-Huet Anomaly Not Reportable 04/12/20 08:14 Stephanie Rods Not Reportable 04/12/20 08:14 Platelet Estimate Consistent w auto 04/12/20 08:14 Clumped Platelets Not Reportable 04/12/20 08:14 Plt Clumps, EDTA Not Reportable 04/12/20 08:14 Large Platelets Not Reportable 04/12/20 08:14 Giant Platelets Not Reportable 04/12/20 08:14 Platelet Satelliting Not Reportable 04/12/20 08:14 Plt Morphology Comment Not Reportable 04/12/20 08:14 RBC Morphology Not Reportable 04/12/20 08:14 Dimorphic RBCs Not Reportable 04/12/20 08:14 Polychromasia Rare 04/12/20 08:14 Hypochromasia Few 04/12/20 08:14 Poikilocytosis Not Reportable 04/12/20 08:14 Anisocytosis 1+ 04/12/20 08:14 Microcytosis Not Reportable 04/12/20 08:14 Macrocytosis Not Reportable 04/12/20 08:14 Spherocytes Not Reportable 04/12/20 08:14 Pappenheimer Bodies Not Reportable 04/12/20 08:14 Sickle Cells Not Reportable 04/12/20 08:14 Target Cells Not Reportable 04/12/20 08:14 Tear Drop Cells Not Reportable 04/12/20 08:14 Ovalocytes Not Reportable 04/12/20 08:14 Stomatocytes Few 04/12/20 08:14 Helmet Cells Not Reportable 04/12/20 08:14 [place] Bodies Not Reportable 04/12/20 08:14 [place] Rings Not Reportable 04/12/20 08:14 [place]am Cells Not Reportable 04/12/20 08:14 Bite Cells Not Reportable 04/12/20 08:14 Crenated Cell Not Reportable 04/12/20 08:14 Elliptocytes Not Reportable 04/12/20 08:14 Acanthocytes (Spur) Not Reportable 04/12/20 08:14 Rouleaux Not Reportable 04/12/20 08:14 Hemoglobin C Crystals Not Reportable 04/12/20 08:14 Schistocytes Not Reportable 04/12/20 08:14 Malaria parasites Not Reportable 04/12/20 08:14 Lc Bodies Not Reportable 04/12/20 08:14 Hem Pathologist Commnt No 04/12/20 08:14 PT 13.8 Sec. (12.2-14.9) 04/06/20 14:30 INR 1.04 (0.87-1.13) 04/06/20 14:30 APTT 28.1 Sec. (24.2-36.6) 04/06/20 14:30 D-Dimer 1063.66 ng/mlDDU (0-234) H 04/07/20 09:34 ABG pH 7.383 (7.320-7.450) 04/13/20 03:40 POC ABG pCO2 42.4 mmHg (32.0-48.0) 04/13/20 03:40 ABG pCO2 54.0 mm Hg 04/11/20 03:44 POC ABG pO2 95.7 mmHg (83-108) 04/13/20 03:40 ABG pO2 73.4 mm Hg (80.0-90.0) L 04/11/20 03:44 POC ABG HCO3 24.7 04/13/20 03:40 ABG HCO3 26.7 mmol/L (20.0-26.0) H 04/11/20 03:44 ABG O2 Saturation 95.0 % (95.0-99.0) 04/11/20 03:44 ABG O2 Content 14.4 (0.0-44) 04/11/20 03:44 POC ABG Base Excess -0.4 04/13/20 03:40 ABG Base Excess -0.1 mmol/L (-2.0-3.0) 04/11/20 03:44 ABG Hemoglobin 9.4 (12.0-17.5) L 04/13/20 03:40 ABG Carboxyhemoglobin 1.6 % (0.0-5.0) 04/11/20 03:44 ABG Methemoglobin 0.7 % (0.0-1.5) 04/11/20 03:44 ABG Sodium 133.6 mmol/L (136.0-145.0) L 04/13/20 03:40 ABG Potassium 3.8 mmol/L (3.40-4.50) 04/13/20 03:40 ABG Chloride 102.0 mmol/L (98-107) 04/13/20 03:40 ABG Glucose 172 mg/dL (65-95) H 04/13/20 03:40 Oxyhemoglobin 92.8 % (95.0-99.0) L 04/11/20 03:44 FiO2 30 04/13/20 03:40 Sodium 138 mmol/L (137-145) 04/13/20 09:09 Potassium 4.0 mmol/L (3.6-5.0) 04/13/20 09:09 Chloride 99.2 mmol/L (98-107) 04/13/20 09:09 Carbon Dioxide 31 mmol/L (22-30) H 04/13/20 09:09 Anion Gap 12 mmol/L 04/13/20 09:09 BUN 43 mg/dL (7-17) H 04/13/20 09:09 Creatinine 4.9 mg/dL (0.6-1.2) H 04/13/20 09:09 Estimated GFR 9 ml/min 04/13/20 09:09 BUN/Creatinine Ratio 9 % 04/13/20 09:09 Glucose 164 mg/dL (65-100) H 04/13/20 09:09 POC Glucose 121 mg/dL (70-105) H 04/14/20 04:35 Lactic Acid 0.90 mmol/L (0.7-2.0) 04/13/20 19:10 Calcium 8.8 mg/dL (8.4-10.2) 04/13/20 09:09 Magnesium 2.50 mg/dL (1.7-2.3) H 04/06/20 14:30 Ferritin 743.0 ng/mL (10.0-200.0) H 04/07/20 09:34 Total Bilirubin 0.30 mg/dL (0.1-1.2) 04/06/20 14:30 AST 39 units/L (5-40) 04/06/20 14:30 ALT 21 units/L (7-56) 04/06/20 14:30 Alkaline Phosphatase 738 units/L (35-129) H 04/06/20 14:30 Ammonia 43.0 umol/L (25-60) 04/06/20 14:30 Lactate Dehydrogenase 195 units/L (91-180) H 04/07/20 09:34 Total Creatine Kinase 23 units/L (30-135) L 04/06/20 14:30 Total Creatine Kinase 24 units/L (30-135) L 04/06/20 14:30 Troponin T 0.224 ng/mL (0.00-0.029) H* 04/06/20 14:30 C-Reactive Protein 7.50 mg/dL (0.00-1.30) H 04/07/20 09:34 Total Protein 8.1 g/dL (6.3-8.2) 04/06/20 14:30 Albumin 3.1 g/dL (3.9-5) L 04/06/20 14:30 Albumin/Globulin Ratio 0.6 % 04/06/20 14:30 Triglycerides 342 mg/dL (2-149) H 04/06/20 14:30 Cholesterol 223 mg/dL (50-199) H 04/06/20 14:30 LDL Cholesterol Direct 123 mg/dL (50-130) 04/06/20 14:30 HDL Cholesterol 35 mg/dL (40-59) L 04/06/20 14:30 Cholesterol/HDL Ratio 6.37 % 04/06/20 14:30 TSH 1.320 mlU/mL (0.270-4.200) 04/06/20 14:30 HCG, Qual Negative (Negative) 04/06/20 14:30 Arterial Blood Glucose 172 mg/dL (65-95) H 04/13/20 03:40 Arterial Blood Ionized Calcium 4.8 mg/dL (4.6-5.3) 04/13/20 03:40 Urine Color Yellow (Yellow) 04/06/20 13:34 Urine Turbidity Turbid (Clear) 04/06/20 13:34 Urine pH 7.0 (5.0-7.0) 04/06/20 13:34 Ur Specific [place] 1.017 (1.003-1.030) 04/06/20 13:34 Urine Protein 100 mg/dl mg/dL (Negative) 04/06/20 13:34 Urine Glucose (UA) 50 mg/dL (Negative) 04/06/20 13:34 Urine Ketones Tr mg/dL (Negative) 04/06/20 13:34 Urine Blood Sm (Negative) 04/06/20 13:34 Urine Nitrite Neg (Negative) 04/06/20 13:34 Urine Bilirubin Neg (Negative) 04/06/20 13:34 Urine Urobilinogen < 2.0 mg/dL (<2.0) 04/06/20 13:34 Ur Leukocyte Esterase Mod (Negative) 04/06/20 13:34 Urine WBC (Auto) > 182.0 /HPF (0.0-6.0) H 04/06/20 13:34 Urine RBC (Auto) 49.0 /HPF (0.0-6.0) 04/06/20 13:34 U Epithel Cells (Auto) 6.0 /HPF (0-13.0) 04/06/20 13:34 Urine Bacteria (Auto) 2+ /HPF (Negative) 04/06/20 13:34 Urine WBC Clumps 3+ /HPF 04/06/20 13:34 Urine Mucus 3+ /HPF 04/06/20 13:34 Salicylates < 0.3 mg/dL (2.8-20.0) L 04/06/20 14:30 Acetaminophen 5.0 ug/mL (10.0-30.0) L 04/06/20 14:30 Plasma/Serum Alcohol < 0.01 % (0-0.07) 04/06/20 14:30 Coronavirus (PCR) Negative (Negative) 04/07/20 Unknown Hepatitis A IgM Ab Non-reactive (NonReactive) 04/07/20 16:38 Hep Bs Antigen Non-reactive (Negative) 04/07/20 16:38 Hep B Core IgM Ab Non-reactive (NonReactive) 04/07/20 16:38 Hepatitis C Antibody Reactive (NonReactive) A 04/07/20 16:38 Blood Type O POSITIVE 04/06/20 14:30 Antibody Screen Negative 04/06/20 14:30 Bains/IV: Voiding Method Indwelling Catheter IV Catheter Type [Right VAS Cath Subclavian] IV Catheter Type [Left INT / Saline Lock Antecubital] IV Catheter Type [Right INT / Saline Lock Forearm] Active Medications - Current Medications Current Medications: Generic Name Dose Route Start Last Admin Trade Name Freq PRN Reason Stop Dose Admin Acetaminophen 650 mg 04/06/20 16:39 Tylenol PO Q6H PRN Pain, Mild (1-3) Amlodipine Besylate 10 mg 04/12/20 17:00 04/13/20 09:39 Amlodipine PO 10 mg QDAY NOEL Administration Lipase/Protease/Amylase 1 each 04/07/20 10:[address] 10,500 Unit FEEDTUBE PRN PRN For Clogged Feeding Tube Carvedilol 6.25 mg 04/13/20 22:00 04/13/20 22:14 Coreg PO 6.25 mg BID NOEL Administration Dextrose 50 ml 04/09/20 16:30 D50w (25gm) Syringe IV Q30MIN PRN Hypoglycemia Protocol Famotidine 20 mg 04/07/20 10:00 04/13/20 09:38 Pepcid PO 20 mg QDAY NOEL Administration Fentanyl 50 mcg 04/06/20 13:34 Sublimaze IV Q10MIN PRN ANALGESIA Heparin Sodium (Porcine) 5,000 unit 04/06/20 22:00 04/13/20 22:15 Heparin SUB-Q 5,000 unit Q12HR NOEL Administration Hydralazine HCl 100 mg 04/13/20 20:00 04/13/20 22:14 Apresoline PO 100 mg TID NOEL Administration Hydromorphone HCl 0.25 mg 04/06/20 16:39 Dilaudid IV Q4H PRN Pain, Moderate (4-6) Hydrophilic Ointment 1 applic 04/06/20 13:34 Vaseline Lip Therapy TP Q2HR PRN Dry Lips Fentanyl Citrate 2,000 mcg in 100 mls @ 5.505 mls/hr 04/06/20 14:00 04/14/20 03:32 Fentanyl Drip Premix IV 3 mcg/kg/hr TITR NOEL 16.515 mls/hr Administration Protocol 1 MCG/KG/HR Sodium Chloride 250 mls @ 10 mls/hr 04/07/20 10:03 04/09/20 05:38 Nacl 0.9% 250ml IV 10 mls/hr DIRECT PRN Administration FOR ABX Sodium Chloride 100 mls @ 999 mls/hr 04/07/20 17:00 Nacl 0.9% IV SPRING PRN Hypotension MEROPENEM/NS 1 GRAM/100 ML 1 gram in 100 mls @ 100 mls/hr 04/10/20 18:00 04/13/20 17:50 Merrem/Ns 1 Gram/100 Ml IV 04/14/20 18:59 100 mls/hr QPM NOEL Administration Protocol Insulin Glargine 10 units 04/09/20 17:00 04/13/20 17:51 Lantus SUB-Q 10 units Q24H NOEL Administration Insulin Human Regular 0 unit 04/09/20 18:00 04/14/20 08:13 Humulin R SUB-Q Not Given Q6H [facility] Protocol Labetalol HCl 10 mg 04/08/20 17:17 04/12/20 12:53 Labetalol IV 10 mg Q4H PRN Administration Blood Pressure Multi-Ingred Cream/Lotion/Oil/Oint 1 applic 04/06/20 13:34 Artificial Tears Ophth Oint OU Q4HR PRN Dry Eye(s) Simple Syrup 15 ml 04/07/20 10:23 Simple Syrup FEEDTUBE PRN PRN Hypoglycemia Simple Syrup 30 ml 04/07/20 10:23 Simple Syrup FEEDTUBE PRN PRN Hypoglycemia Sodium Bicarbonate 325 mg 04/07/20 10:23 Sodium Bicarbonate FEEDTUBE PRN PRN For Clogged Feeding Tube Sodium Chloride 10 ml 04/06/20 22:00 04/13/20 22:14 Sodium Chloride Flush Syringe 10 Ml IV 10 ml BID NOEL Administration Sodium Chloride 10 ml 04/06/20 16:32 Sodium Chloride Flush Syringe 10 Ml IV PRN PRN LINE FLUSH Nutrition/Malnutrition Assess - Dietary Evaluation Nutrition/Malnutrition Findings: Nutrition Notes Start: 04/07/20 08:19 Freq: Status: Active Protocol: Document 04/13/20 14:07 AL (Rec: 04/13/20 14:11 AL [id number]) Co-Sign 04/13/20 14:07 LP Nutrition Notes Initial or Follow up Reassessment Current Diagnosis CKD (stage V CKD),Diabetes, Hypertension,Stroke Other Pertinent Diagnosis on HD, bilateral BKA, AMS Current Diet Nepro 1.8 at 45 mL/hr (goal rate) Labs/Tests BUN 43 Cr 4.9 POC BG 155 Pertinent Medications Humulin Fentanyl KCl 40 mEq (04/12) Height 5 ft 5 in Weight 110.1 kg [place] Body Weight (kg) 56.81 BMI 40.4 Weight Status Morbidly Obese Subjective/Other Information F/U for TF tolerance. Patient is tolerating TF well at goal rate. Percent of energy/protein needs met: 100%/61% Burn Absent Trauma Absent GI Symptoms None Current % PO Negligible Minimum of two criteria No physical signs of malnutrition #1 Nutrition Diagnosis Inadequate oral intake Diagnosis Progress(for reassessment Continues documentation) Is patient on ventilator? Yes Is Patient Ambulatory and/or Out of Bed No REE-([place]-confined to bed) 2063.820 Kcal/Kg value to use for calculation 16 Approximate Energy Requirements Using 1762 kcal/Kg Calculation Used for Recommendations Kcal/kg Additional Notes Protein Needs: up to 142 g (up to 2.5 g/kg IBW) Fluid Needs: 1 mL/kcal Nutrition Intervention Change Diet Order: Continue TF Nutrition Support: Nepro 1.8 at 45 mL/hr (goal rate) Flush 200 mL q4h Kcal 1,944 Protein (gm) 87 Fluid (mL) 785 Goal #1 Meet estimated energy and protein needs as best as possible via TF Anticipated Discharge Needs: Unable to determine at this time Follow-Up By: 04/19/20 Additional Comments F/U for TF tolerance
[2020-04-14] MEDS: FAMOTIDINE 20 MG TAB PO SCH (09:55)
[2020-04-14] MEDS: HEPARIN 5,000 UNIT/1 ML VIAL SUB-Q SCH ×2 (09:55→22:12)
[2020-04-14] MEDS: carvediloL 6.25 MG TAB PO SCH ×2 (09:55→22:12)
--- NOTE | 2020-04-14 11:50 | Progress Note ---
Assessment and Plan Cultures: Blood culture 04/06/2020: 1 out of 4 bottles coag negative staph Urine culture 04/06/2020 <10,000 mixed bacteria Respiratory culture 04/06/2020 poor specimen SARS-CoV-2 PCR negative 04/07/2020 tracheal aspirate culture: Usual respiratory sarah Assessment: 49 years old female with history of asthma, hypertension, end-stage renal disease on hemodialysis, diabetes mellitus, bipolar disorder, morbid obesity, CVA, bilateral BKA's recent COVID-19 infection requiring intubation treated with dexamethasone in December 2019 [facility], [facility] of a [facility], admitted on 04/06/2020 secondary to be found unresponsiveness after hemodialysis: #Severe sepsis: Present on admission with hypothermia, leukocytosis, altered mental status, likely due to bilateral pneumonia, bacteremia and UTI. #Bilateral pneumonia: Aspiration pneumonia/HAP. Of note, patient was recently admitted at [facility] in January 2020 requiring intubation for COVID-19 pneumonia. COVID-19 pneumonia was treated with dexamethasone. #Coag negative staph bacteremia: 1/4 bottles, consistent with contaminant. #UTI: Bains catheter with purulent urine. #Acute hypoxemic respiratory failure: intubated, on the vent #End-stage renal disease on hemodialysis: renally dose abx. #Extensive Candidal intertrigo in groin and vagina: treated with fluconazole. #Vancomycin allergy ? Causing hives. I reviewed records from [facility] and there is no documentation of vancomycin allergy, patient initially received vancomycin #Leucocytosis: Patient has chronic leukocytosis, labs from [facility] and [facility] in the past were reviewed. #Chronic Hepatitis C: treatment status unknown. F/U HCV RNA PCR. Recs: continue IV meropenem, D5 of 5 f/u HCV RNA PCR Patient has chronic leukocytosis, labs from [facility] and [facility] in the past were reviewed Lloyd Beltran MD, FACP [facility], [facility] O: [phone] F: [phone] Subjective Date of service: 04/14/20 Principal diagnosis: Ac on ch hypoxemic and hypercapnic resp failure; PUI COVID- 19 infxn; AMS Interval history: No fever. Remains intubated, on the vent. Objective - Exam Narrative Exam: Physical Exam: Constitutional: sedated, intubated, on the vent Head, Ears, Nose: Normocephalic, atraumatic. External ears, nose normal Eyes: Conjunctivae/corneas clear. No icterus. No ptosis. Neck: intubated Oral: intubated Cardiovascular: S1, S2 + Respiratory: AE fair bilaterally and equal GI: Soft, bowel sounds + Musculoskeletal: Bilateral BKA. Right chest PermCath Skin: No rash or abscess Hem/Lymphatic: No palpable cervical or supraclavicular nodes. No lymphangitis Psych: no agitation Neurological: sedated, intubated, on the vent, exam limited - Constitutional Vitals: Vital Signs Temp Pulse Resp BP Pulse Ox 98.8 F 82 10 L 111/35 97 04/14/20 03:48 04/14/20 11:01 04/14/20 11:01 04/14/20 11:01 04/14/20 11:01 Temperature -Last 24 Hours Temperature 98.8 F Temperature 99.2 F Temperature 98.5 F Temperature 98.8 F Temperature 99.0 F Temperature 99.0 F - Labs CBC & Chem 7: 04/12/20 08:14 04/13/20 09:09 Labs: Abnormal lab results 04/13/20 04/13/20 04/14/20 Range/Units 17:38 23:40 04:35 POC Glucose 180 H 130 H 121 H (70-105) mg/dL
--- NOTE | 2020-04-14 12:09 | Progress Note ---
Assessment and Plan Acute on chronic hypoxemic and hypercapnic respiratory failure. Coronavirus-19 infection. Acute encephalopathy. Bibasilar atelectasis. End-stage renal disease, on dialysis. Morbid obesity. History of a cerebrovascular accident. Diabetes type 2. History of chronic obstructive pulmonary disease. History of anemia. - lactate & procal within acceptable limits - complete AB's per ID rec's (Merrem) - resume Daily SAT and SBT assessment as tolerated - may be headed for a tracheostomy if AMS is persistent, hopefully encephalo ramya improves as she gets better - continue care as below otherwise; - keep set rate at 12/min - continue to wean supplemental oxygen for target O2 sat's > 90% acutely - VAP bundle addressed - continue lung protective strategies - continue bronchodilators with pulmonary hygiene per RT - wean per pulmonary driven protocols otherwise - continue accuchecks with glycemic control per SSI (While critically ill target blood glucose of 140-180 mg/dL; avoid hypoglycemia) - continue fentanyl for sedation / analgesia - sedation prn for target RASS 0 to -1 - avoid nephrotoxins, renally dose all medications - continue to avoid benzodiazepine's, reduce the possibility of delirium - prn analgesia per CPOT score - Maintenance of sleep-wake cycle, avoid delirium - continue enteral nutritional support at goal rate as tolerated - G.I. & VTE prophylaxis - PT/OT/ROM exercises - continue mobility protocols for pressure ulcer prophylaxis - Monitor hemodynamics closely - continue other care per attending / other consultants - discharge planning ongoing concurrently .... Re-evaluate in am & prn CONDITION: CRITICAL PROGNOSIS: GUARDED CODE STATUS: FULL CODE The high probability of a clinically significant, sudden or life-threatening deterioration of the [respiratory, cardiovascular, renal & neurologic] system(s) required my full and direct attention, intervention and personal management. The aggregate critical care time was [31] minutes without overlap. Time includes spent on; [x] Data Review and interpretation [x] Patient assessment and monitoring of vital signs [x] Documentation [x] Medication orders and management Subjective Date of service: 04/14/20 Principal diagnosis: Ac on ch hypoxemic and hypercapnic resp failure; PUI COVID- 19 infxn; AMS Interval history: Patient is seen today for: Acute on chronic hypoxemic and hypercapnic resp failure; PUI Coronavirus-19 infection; Acute encephalopathy; ESRD; Morbid obesity; DM II; AE-COPD Seen and examined at bedside; 24hour events reviewed; nursing and respiratory care staff consulted; no adverse overnight events reported to me; resting peacefully in bed; remains on MVS; BP's rebounded yesterday with volume resuscitation and oral antihypertensives ultimately resumed; Objective Vital Signs - 12hr 04/14/20 04/14/20 04/14/20 00:16 00:30 00:46 Temperature Pulse Rate 81 79 87 Pulse Rate [ From Monitor] Respiratory 12 12 15 Rate Blood Pressure 96/40 96/40 96/40 O2 Sat by Pulse 96 96 98 Oximetry 04/14/20 04/14/20 04/14/20 01:00 01:16 01:30 Temperature Pulse Rate 85 91 H 96 H Pulse Rate [ From Monitor] Respiratory 11 L 16 19 Rate Blood Pressure 96/40 133/46 133/46 O2 Sat by Pulse 98 100 98 Oximetry 04/14/20 04/14/20 04/14/20 01:46 02:00 02:16 Temperature Pulse Rate 96 H 90 89 Pulse Rate [ From Monitor] Respiratory 18 14 13 Rate Blood Pressure 133/46 136/48 136/48 O2 Sat by Pulse 99 97 98 Oximetry 04/14/20 04/14/20 04/14/20 02:30 02:46 03:00 Temperature Pulse Rate 90 88 90 Pulse Rate [ From Monitor] Respiratory 13 13 14 Rate Blood Pressure 136/48 136/48 131/38 O2 Sat by Pulse 98 96 96 Oximetry 04/14/20 04/14/20 04/14/20 03:16 03:30 03:45 Temperature Pulse Rate 85 89 93 H Pulse Rate [ From Monitor] Respiratory 13 13 13 Rate Blood Pressure 131/38 131/38 O2 Sat by Pulse 96 99 99 Oximetry 04/14/20 04/14/20 04/14/20 03:48 03:56 04:00 Temperature 98.8 F Pulse Rate 92 H 95 H Pulse Rate [ From Monitor] Respiratory 11 L Rate Blood Pressure 131/38 112/53 O2 Sat by Pulse 96 97 Oximetry 04/14/20 04/14/20 04/14/20 04:15 04:31 04:45 Temperature Pulse Rate 91 H 85 83 Pulse Rate [ From Monitor] Respiratory 12 12 12 Rate Blood Pressure 112/53 112/53 112/53 O2 Sat by Pulse 96 96 96 Oximetry 1104/14/20 04/14/20 05:00 05:15 05:31 Temperature Pulse Rate 83 81 86 Pulse Rate [ From Monitor] Respiratory 11 L 14 12 Rate Blood Pressure 110/47 110/47 110/47 O2 Sat by Pulse 96 96 95 Oximetry 04/14/20 04/14/20 04/14/20 05:45 06:00 06:15 Temperature Pulse Rate 81 84 84 Pulse Rate [ From Monitor] Respiratory 12 12 12 Rate Blood Pressure 110/47 100/47 100/47 O2 Sat by Pulse 97 94 97 Oximetry 04/14/20 04/14/20 04/14/20 06:31 06:45 07:01 Temperature Pulse Rate 85 89 86 Pulse Rate [ From Monitor] Respiratory 12 13 12 Rate Blood Pressure 100/47 100/47 123/38 O2 Sat by Pulse 97 98 97 Oximetry 04/14/20 04/14/20 04/14/20 07:15 07:31 07:45 Temperature Pulse Rate 90 85 87 Pulse Rate [ From Monitor] Respiratory 11 L 11 L 14 Rate Blood Pressure 123/38 123/38 123/38 O2 Sat by Pulse 97 98 96 Oximetry 04/14/20 04/14/20 04/14/20 08:00 08:01 08:15 Temperature Pulse Rate 86 87 84 Pulse Rate [ 86 From Monitor] Respiratory 12 11 L 12 Rate Blood Pressure 132/46 132/46 132/46 O2 Sat by Pulse 97 97 96 Oximetry 04/14/20 04/14/20 04/14/20 08:31 08:45 09:00 Temperature Pulse Rate 85 86 86 Pulse Rate [ From Monitor] Respiratory 14 13 14 Rate Blood Pressure 132/46 132/46 157/45 O2 Sat by Pulse 98 98 96 Oximetry 04/14/20 04/14/20 04/14/20 09:15 09:31 09:45 Temperature Pulse Rate 85 81 84 Pulse Rate [ From Monitor] Respiratory 12 12 11 L Rate Blood Pressure 132/46 157/45 157/45 O2 Sat by Pulse 97 96 96 Oximetry 04/14/20 04/14/20 04/14/20 09:55 10:00 10:15 Temperature Pulse Rate 83 85 85 Pulse Rate [ From Monitor] Respiratory 12 14 Rate Blood Pressure 157/45 150/53 150/53 O2 Sat by Pulse 96 97 Oximetry 04/14/20 04/14/20 04/14/20 10:31 10:45 11:01 Temperature Pulse Rate 89 84 82 Pulse Rate [ From Monitor] Respiratory 11 L 9 L 10 L Rate Blood Pressure 150/53 150/53 111/35 O2 Sat by Pulse 100 98 97 Oximetry 04/14/20 04/14/20 04/14/20 11:15 11:31 11:45 Temperature Pulse Rate 81 83 78 Pulse Rate [ From Monitor] Respiratory 11 L 13 14 Rate Blood Pressure 111/35 111/35 111/35 O2 Sat by Pulse 99 100 Oximetry 04/14/20 12:00 Temperature Pulse Rate 76 Pulse Rate [ From Monitor] Respiratory 11 L Rate Blood Pressure 134/45 O2 Sat by Pulse 100 Oximetry Constitutional: appears uncomfortable, other (middle aged obese female with mil;dly increased respiratory effort at rest) Eyes: non-icteric ENT: oropharynx moist, other (ETT 23 cm PARRISH) Neck: supple, no lymphadenopathy, no JVD Effort: mildly labored Ascultation: Bilateral: diminished breath sounds, rhonchi Percussion: Bilateral: not dull Cardiovascular: regular rate and rhythm Gastrointestinal: normoactive bowel sounds, soft, non-tender, non-distended (protuberant) Integumentary: erythema (right BKA stump) Extremities: no cyanosis, no ischemia or petechiae, edema (trace) Neurologic: non-focal exam (grossly), pupils equal and round, unable to assess Psychiatric: other (unable to assess re: AMS) CBC and BMP: 04/17/20 05:44 04/17/20 05:44 ABG, PT/INR, D-dimer: ABG ABG pH 7.383 (7.320-7.450) 04/13/20 03:40 POC ABG pCO2 42.4 mmHg (32.0-48.0) 04/13/20 03:40 ABG pCO2 54.0 mm Hg 04/11/20 03:44 POC ABG pO2 95.7 mmHg (83-108) 04/13/20 03:40 ABG pO2 73.4 mm Hg (80.0-90.0) L 04/11/20 03:44 POC ABG HCO3 24.7 04/13/20 03:40 ABG O2 Saturation 95.0 % (95.0-99.0) 04/11/20 03:44 PT/INR, D-dimer PT 13.8 Sec. (12.2-14.9) 04/06/20 14:30 INR 1.04 (0.87-1.13) 04/06/20 14:30 D-Dimer 1063.66 ng/mlDDU (0-234) H 04/07/20 09:34 Abnormal lab findings: Abnormal Labs 04/06/20 04/06/20 04/06/20 13:34 14:30 14:30 WBC 19.2 H RBC Hgb Hct RDW 17.8 H Seg Neuts % (Manual) 90.0 H Lymphocytes % (Manual) 4.0 L Basophils % (Manual) Seg Neutrophils # Man 17.3 H Lymphocytes # (Manual) 0.8 L Monocytes # (Manual) Eosinophils # (Manual) Basophils # (Manual) D-Dimer ABG pH POC ABG pCO2 POC ABG pO2 ABG pO2 ABG HCO3 ABG Base Excess ABG Hemoglobin ABG Sodium ABG Chloride ABG Glucose Oxyhemoglobin Sodium Potassium 5.2 H Chloride Carbon Dioxide 17 L BUN 53 H Creatinine 7.8 H Glucose 144 H POC Glucose Calcium Magnesium Ferritin Alkaline Phosphatase 738 H Lactate Dehydrogenase Total Creatine Kinase 23 L Troponin T 0.224 H* C-Reactive Protein Albumin 3.1 L Triglycerides 342 H Cholesterol 223 H HDL Cholesterol 35 L Arterial Blood Glucose Arterial Blood Ionized Calcium Urine WBC (Auto) > 182.0 H Salicylates Acetaminophen Hepatitis C Antibody 04/06/20 04/06/20 04/06/20 14:30 14:30 14:30 WBC RBC Hgb Hct RDW Seg Neuts % (Manual) Lymphocytes % (Manual) Basophils % (Manual) Seg Neutrophils # Man Lymphocytes # (Manual) Monocytes # (Manual) Eosinophils # (Manual) Basophils # (Manual) D-Dimer ABG pH POC ABG pCO2 POC ABG pO2 ABG pO2 ABG HCO3 ABG Base Excess ABG Hemoglobin ABG Sodium ABG Chloride ABG Glucose Oxyhemoglobin Sodium Potassium Chloride Carbon Dioxide BUN Creatinine Glucose POC Glucose Calcium Magnesium 2.50 H Ferritin Alkaline Phosphatase Lactate Dehydrogenase Total Creatine Kinase 24 L Troponin T C-Reactive Protein Albumin Triglycerides Cholesterol HDL Cholesterol Arterial Blood Glucose Arterial Blood Ionized Calcium Urine WBC (Auto) Salicylates < 0.3 L Acetaminophen 5.0 L Hepatitis C Antibody 11/12/20 11/12/20 11/13/20 14:39 20:00 00:48 WBC RBC Hgb Hct RDW Seg Neuts % (Manual) Lymphocytes % (Manual) Basophils % (Manual) Seg Neutrophils # Man Lymphocytes # (Manual) Monocytes # (Manual) Eosinophils # (Manual) Basophils # (Manual) D-Dimer ABG pH 7.281 L 7.306 L POC ABG pCO2 POC ABG pO2 78.0 L ABG pO2 133.8 H ABG HCO3 18.3 L ABG Base Excess -7.8 L ABG Hemoglobin 10.8 L 10.8 L ABG Sodium ABG Chloride 108.0 H ABG Glucose Oxyhemoglobin Sodium Potassium Chloride Carbon Dioxide BUN Creatinine Glucose POC Glucose 69 L Calcium Magnesium Ferritin Alkaline Phosphatase Lactate Dehydrogenase Total Creatine Kinase Troponin T C-Reactive Protein Albumin Triglycerides Cholesterol HDL Cholesterol Arterial Blood Glucose Arterial Blood Ionized Calcium Urine WBC (Auto) Salicylates Acetaminophen Hepatitis C Antibody 04/07/20 04/07/20 04/07/20 09:34 09:34 09:34 WBC RBC Hgb Hct RDW Seg Neuts % (Manual) Lymphocytes % (Manual) Basophils % (Manual) Seg Neutrophils # Man Lymphocytes # (Manual) Monocytes # (Manual) Eosinophils # (Manual) Basophils # (Manual) D-Dimer 1063.66 H ABG pH POC ABG pCO2 POC ABG pO2 ABG pO2 ABG HCO3 ABG Base Excess ABG Hemoglobin ABG Sodium ABG Chloride ABG Glucose Oxyhemoglobin Sodium Potassium Chloride Carbon Dioxide BUN Creatinine Glucose POC Glucose Calcium Magnesium Ferritin 743.0 H Alkaline Phosphatase Lactate Dehydrogenase 195 H Total Creatine Kinase Troponin T C-Reactive Protein 7.50 H Albumin Triglycerides Cholesterol HDL Cholesterol Arterial Blood Glucose Arterial Blood Ionized Calcium Urine WBC (Auto) Salicylates Acetaminophen Hepatitis C Antibody 04/07/20 04/07/20 04/07/20 10:01 16:38 23:51 WBC RBC Hgb Hct RDW Seg Neuts % (Manual) Lymphocytes % (Manual) Basophils % (Manual) Seg Neutrophils # Man Lymphocytes # (Manual) Monocytes # (Manual) Eosinophils # (Manual) Basophils # (Manual) D-Dimer ABG pH POC ABG pCO2 POC ABG pO2 79.8 L ABG pO2 ABG HCO3 ABG Base Excess ABG Hemoglobin 10.3 L ABG Sodium ABG Chloride 109.0 H ABG Glucose Oxyhemoglobin Sodium Potassium Chloride Carbon Dioxide BUN Creatinine Glucose POC Glucose 117 H Calcium Magnesium Ferritin Alkaline Phosphatase Lactate Dehydrogenase Total Creatine Kinase Troponin T C-Reactive Protein Albumin Triglycerides Cholesterol HDL Cholesterol Arterial Blood Glucose Arterial Blood Ionized Calcium 4.5 L Urine WBC (Auto) Salicylates Acetaminophen Hepatitis C Antibody Reactive A 04/08/20 04/08/20 04/08/20 04:58 12:48 17:03 WBC RBC Hgb Hct RDW Seg Neuts % (Manual) Lymphocytes % (Manual) Basophils % (Manual) Seg Neutrophils # Man Lymphocytes # (Manual) Monocytes # (Manual) Eosinophils # (Manual) Basophils # (Manual) D-Dimer ABG pH POC ABG pCO2 POC ABG pO2 ABG pO2 ABG HCO3 ABG Base Excess ABG Hemoglobin ABG Sodium ABG Chloride ABG Glucose Oxyhemoglobin Sodium Potassium Chloride Carbon Dioxide BUN Creatinine Glucose POC Glucose 129 H 155 H 201 H Calcium Magnesium Ferritin Alkaline Phosphatase Lactate Dehydrogenase Total Creatine Kinase Troponin T C-Reactive Protein Albumin Triglycerides Cholesterol HDL Cholesterol Arterial Blood Glucose Arterial Blood Ionized Calcium Urine WBC (Auto) Salicylates Acetaminophen Hepatitis C Antibody 04/08/20 04/08/20 04/09/20 23:49 Unknown 05:31 WBC RBC Hgb Hct RDW Seg Neuts % (Manual) Lymphocytes % (Manual) Basophils % (Manual) Seg Neutrophils # Man Lymphocytes # (Manual) Monocytes # (Manual) Eosinophils # (Manual) Basophils # (Manual) D-Dimer ABG pH 7.349 L POC ABG pCO2 POC ABG pO2 ABG pO2 117.3 H ABG HCO3 ABG Base Excess ABG Hemoglobin 7.4 L ABG Sodium ABG Chloride ABG Glucose Oxyhemoglobin Sodium Potassium Chloride Carbon Dioxide BUN Creatinine Glucose POC Glucose 178 H 248 H Calcium Magnesium Ferritin Alkaline Phosphatase Lactate Dehydrogenase Total Creatine Kinase Troponin T C-Reactive Protein Albumin Triglycerides Cholesterol HDL Cholesterol Arterial Blood Glucose Arterial Blood Ionized Calcium Urine WBC (Auto) Salicylates Acetaminophen Hepatitis C Antibody 04/09/20 04/09/20 04/09/20 11:39 17:35 Unknown WBC RBC Hgb Hct RDW Seg Neuts % (Manual) Lymphocytes % (Manual) Basophils % (Manual) Seg Neutrophils # Man Lymphocytes # (Manual) Monocytes # (Manual) Eosinophils # (Manual) Basophils # (Manual) D-Dimer ABG pH POC ABG pCO2 51.6 H POC ABG pO2 ABG pO2 ABG HCO3 ABG Base Excess ABG Hemoglobin 11.4 L ABG Sodium 130.1 L ABG Chloride ABG Glucose 249 H Oxyhemoglobin Sodium Potassium Chloride Carbon Dioxide BUN Creatinine Glucose POC Glucose 319 H 254 H Calcium Magnesium Ferritin Alkaline Phosphatase Lactate Dehydrogenase Total Creatine Kinase Troponin T C-Reactive Protein Albumin Triglycerides Cholesterol HDL Cholesterol Arterial Blood Glucose 249 H Arterial Blood Ionized Calcium 4.1 L Urine WBC (Auto) Salicylates Acetaminophen Hepatitis C Antibody 04/10/20 04/10/20 04/10/20 00:00 03:15 05:49 WBC RBC Hgb Hct RDW Seg Neuts % (Manual) Lymphocytes % (Manual) Basophils % (Manual) Seg Neutrophils # Man Lymphocytes # (Manual) Monocytes # (Manual) Eosinophils # (Manual) Basophils # (Manual) D-Dimer ABG pH POC ABG pCO2 48.2 H POC ABG pO2 ABG pO2 ABG HCO3 ABG Base Excess ABG Hemoglobin 9.9 L ABG Sodium 135.4 L ABG Chloride ABG Glucose 215 H Oxyhemoglobin Sodium Potassium Chloride Carbon Dioxide BUN Creatinine Glucose POC Glucose 194 H 221 H Calcium Magnesium Ferritin Alkaline Phosphatase Lactate Dehydrogenase Total Creatine Kinase Troponin T C-Reactive Protein Albumin Triglycerides Cholesterol HDL Cholesterol Arterial Blood Glucose 215 H Arterial Blood Ionized Calcium 4.5 L Urine WBC (Auto) Salicylates Acetaminophen Hepatitis C Antibody 04/10/20 04/10/20 04/10/20 08:18 08:18 12:22 WBC 28.9 H RBC 3.38 L Hgb 9.5 L Hct 30.1 L RDW 16.9 H Seg Neuts % (Manual) 87.0 H Lymphocytes % (Manual) 9.0 L Basophils % (Manual) 2.0 H Seg Neutrophils # Man 25.1 H Lymphocytes # (Manual) Monocytes # (Manual) Eosinophils # (Manual) Basophils # (Manual) 0.6 H D-Dimer ABG pH POC ABG pCO2 POC ABG pO2 ABG pO2 ABG HCO3 ABG Base Excess ABG Hemoglobin ABG Sodium ABG Chloride ABG Glucose Oxyhemoglobin Sodium 134 L Potassium 3.5 L D Chloride 94.9 L Carbon Dioxide BUN 38 H Creatinine 5.5 H Glucose 230 H POC Glucose 218 H Calcium Magnesium Ferritin Alkaline Phosphatase Lactate Dehydrogenase Total Creatine Kinase Troponin T C-Reactive Protein Albumin Triglycerides Cholesterol HDL Cholesterol Arterial Blood Glucose Arterial Blood Ionized Calcium Urine WBC (Auto) Salicylates Acetaminophen Hepatitis C Antibody 04/10/20 04/10/20 04/10/20 17:27 18:08 23:29 WBC RBC Hgb Hct RDW Seg Neuts % (Manual) Lymphocytes % (Manual) Basophils % (Manual) Seg Neutrophils # Man Lymphocytes # (Manual) Monocytes # (Manual) Eosinophils # (Manual) Basophils # (Manual) D-Dimer ABG pH POC ABG pCO2 POC ABG pO2 ABG pO2 ABG HCO3 ABG Base Excess ABG Hemoglobin ABG Sodium ABG Chloride ABG Glucose Oxyhemoglobin Sodium Potassium Chloride Carbon Dioxide BUN Creatinine Glucose POC Glucose 218 H 223 H 166 H Calcium Magnesium Ferritin Alkaline Phosphatase Lactate Dehydrogenase Total Creatine Kinase Troponin T C-Reactive Protein Albumin Triglycerides Cholesterol HDL Cholesterol Arterial Blood Glucose Arterial Blood Ionized Calcium Urine WBC (Auto) Salicylates Acetaminophen Hepatitis C Antibody 04/11/20 04/11/20 04/11/20 03:44 05:28 07:39 WBC 26.9 H RBC 3.32 L Hgb 9.4 L Hct 29.5 L RDW 17.2 H Seg Neuts % (Manual) 83.0 H Lymphocytes % (Manual) 10.0 L Basophils % (Manual) Seg Neutrophils # Man 22.3 H Lymphocytes # (Manual) Monocytes # (Manual) 1.1 H Eosinophils # (Manual) 0.5 H Basophils # (Manual) D-Dimer ABG pH 7.313 L POC ABG pCO2 POC ABG pO2 ABG pO2 73.4 L ABG HCO3 26.7 H ABG Base Excess ABG Hemoglobin 11.0 L ABG Sodium ABG Chloride ABG Glucose Oxyhemoglobin 92.8 L Sodium Potassium Chloride Carbon Dioxide BUN Creatinine Glucose POC Glucose 164 H Calcium Magnesium Ferritin Alkaline Phosphatase Lactate Dehydrogenase Total Creatine Kinase Troponin T C-Reactive Protein Albumin Triglycerides Cholesterol HDL Cholesterol Arterial Blood Glucose Arterial Blood Ionized Calcium Urine WBC (Auto) Salicylates Acetaminophen Hepatitis C Antibody 04/11/20 04/11/20 04/11/20 07:39 12:25 19:02 WBC RBC Hgb Hct RDW Seg Neuts % (Manual) Lymphocytes % (Manual) Basophils % (Manual) Seg Neutrophils # Man Lymphocytes # (Manual) Monocytes # (Manual) Eosinophils # (Manual) Basophils # (Manual) D-Dimer ABG pH POC ABG pCO2 POC ABG pO2 ABG pO2 ABG HCO3 ABG Base Excess ABG Hemoglobin ABG Sodium ABG Chloride ABG Glucose Oxyhemoglobin Sodium Potassium Chloride Carbon Dioxide BUN 48 H Creatinine 6.1 H Glucose 122 H POC Glucose 175 H 175 H Calcium 8.3 L Magnesium Ferritin Alkaline Phosphatase Lactate Dehydrogenase Total Creatine Kinase Troponin T C-Reactive Protein Albumin Triglycerides Cholesterol HDL Cholesterol Arterial Blood Glucose Arterial Blood Ionized Calcium Urine WBC (Auto) Salicylates Acetaminophen Hepatitis C Antibody 04/12/20 04/12/20 04/12/20 00:02 05:51 08:14 WBC 28.0 H RBC 3.29 L Hgb 9.5 L Hct 29.1 L RDW 16.9 H Seg Neuts % (Manual) 88.0 H Lymphocytes % (Manual) 7.0 L Basophils % (Manual) Seg Neutrophils # Man 24.6 H Lymphocytes # (Manual) Monocytes # (Manual) Eosinophils # (Manual) 0.6 H Basophils # (Manual) D-Dimer ABG pH POC ABG pCO2 POC ABG pO2 ABG pO2 ABG HCO3 ABG Base Excess ABG Hemoglobin ABG Sodium ABG Chloride ABG Glucose Oxyhemoglobin Sodium Potassium Chloride Carbon Dioxide BUN Creatinine Glucose POC Glucose 146 H 151 H Calcium Magnesium Ferritin Alkaline Phosphatase Lactate Dehydrogenase Total Creatine Kinase Troponin T C-Reactive Protein Albumin Triglycerides Cholesterol HDL Cholesterol Arterial Blood Glucose Arterial Blood Ionized Calcium Urine WBC (Auto) Salicylates Acetaminophen Hepatitis C Antibody 04/12/20 04/12/20 04/12/20 08:14 12:21 17:26 WBC RBC Hgb Hct RDW Seg Neuts % (Manual) Lymphocytes % (Manual) Basophils % (Manual) Seg Neutrophils # Man Lymphocytes # (Manual) Monocytes # (Manual) Eosinophils # (Manual) Basophils # (Manual) D-Dimer ABG pH POC ABG pCO2 POC ABG pO2 ABG pO2 ABG HCO3 ABG Base Excess ABG Hemoglobin ABG Sodium ABG Chloride ABG Glucose Oxyhemoglobin Sodium Potassium 3.3 L Chloride Carbon Dioxide BUN 32 H Creatinine 4.3 H Glucose 188 H POC Glucose 196 H 235 H Calcium Magnesium Ferritin Alkaline Phosphatase Lactate Dehydrogenase Total Creatine Kinase Troponin T C-Reactive Protein Albumin Triglycerides Cholesterol HDL Cholesterol Arterial Blood Glucose Arterial Blood Ionized Calcium Urine WBC (Auto) Salicylates Acetaminophen Hepatitis C Antibody 04/12/20 04/13/20 04/13/20 23:34 03:40 05:33 WBC RBC Hgb Hct RDW Seg Neuts % (Manual) Lymphocytes % (Manual) Basophils % (Manual) Seg Neutrophils # Man Lymphocytes # (Manual) Monocytes # (Manual) Eosinophils # (Manual) Basophils # (Manual) D-Dimer ABG pH POC ABG pCO2 POC ABG pO2 ABG pO2 ABG HCO3 ABG Base Excess ABG Hemoglobin 9.4 L ABG Sodium 133.6 L ABG Chloride ABG Glucose 172 H Oxyhemoglobin Sodium Potassium Chloride Carbon Dioxide BUN Creatinine Glucose POC Glucose 171 H 167 H Calcium Magnesium Ferritin Alkaline Phosphatase Lactate Dehydrogenase Total Creatine Kinase Troponin T C-Reactive Protein Albumin Triglycerides Cholesterol HDL Cholesterol Arterial Blood Glucose 172 H Arterial Blood Ionized Calcium Urine WBC (Auto) Salicylates Acetaminophen Hepatitis C Antibody 04/13/20 04/13/20 04/13/20 07:49 09:09 11:34 WBC RBC Hgb Hct RDW Seg Neuts % (Manual) Lymphocytes % (Manual) Basophils % (Manual) Seg Neutrophils # Man Lymphocytes # (Manual) Monocytes # (Manual) Eosinophils # (Manual) Basophils # (Manual) D-Dimer ABG pH POC ABG pCO2 POC ABG pO2 ABG pO2 ABG HCO3 ABG Base Excess ABG Hemoglobin ABG Sodium ABG Chloride ABG Glucose Oxyhemoglobin Sodium Potassium Chloride Carbon Dioxide 31 H BUN 44 H 43 H Creatinine 5.0 H 4.9 H Glucose 164 H 164 H POC Glucose 155 H Calcium Magnesium Ferritin Alkaline Phosphatase Lactate Dehydrogenase Total Creatine Kinase Troponin T C-Reactive Protein Albumin Triglycerides Cholesterol HDL Cholesterol Arterial Blood Glucose Arterial Blood Ionized Calcium Urine WBC (Auto) Salicylates Acetaminophen Hepatitis C Antibody 04/13/20 04/13/20 04/14/20 17:38 23:40 04:35 WBC RBC Hgb Hct RDW Seg Neuts % (Manual) Lymphocytes % (Manual) Basophils % (Manual) Seg Neutrophils # Man Lymphocytes # (Manual) Monocytes # (Manual) Eosinophils # (Manual) Basophils # (Manual) D-Dimer ABG pH POC ABG pCO2 POC ABG pO2 ABG pO2 ABG HCO3 ABG Base Excess ABG Hemoglobin ABG Sodium ABG Chloride ABG Glucose Oxyhemoglobin Sodium Potassium Chloride Carbon Dioxide BUN Creatinine Glucose POC Glucose 180 H 130 H 121 H Calcium Magnesium Ferritin Alkaline Phosphatase Lactate Dehydrogenase Total Creatine Kinase Troponin T C-Reactive Protein Albumin Triglycerides Cholesterol HDL Cholesterol Arterial Blood Glucose Arterial Blood Ionized Calcium Urine WBC (Auto) Salicylates Acetaminophen Hepatitis C Antibody Chest x-ray: pending Allied health notes reviewed: nursing
--- NOTE | 2020-04-14 13:03 | Progress Note ---
Assessment and Plan Impression: * End stage renal disease * Sepsis * Positive blood cx - likely contaminant --Blood cx: staph epi (05/29 bottles - Apr 06) * Acute hypoxic respiratory failure * Acute encephalopathy * UTI * Hx of COVID 19 --SARS Cov2 PCR negative Apr 07 * Metabolic acidosis Plan: * Continue hemodialysis on TTS schedule * UF as tolerated * Abx per ID * neurology notes reviewed * Vent management per CCM * Dose medications for renal function * AM labs Subjective Date of service: 04/14/20 Principal diagnosis: Ac on ch hypoxemic and hypercapnic resp failure; PUI COVID- 19 infxn; AMS Interval history: resting in bed, events noted Objective - Exam Narrative Exam: General appearance: well-developed, well-nourished EENT: ATNC, other (ETT in place) Respiratory: Present: Other (coarse BS) Cardiology: regular, S1S2 Gastrointestinal: obese Integumentary: warm and dry Musculoskeletal: other (Bilateral BKA) - Vital Signs Vital signs: Vital Signs - 12hr 04/14/20 04/14/20 04/14/20 01:16 01:30 01:46 Temperature Pulse Rate 91 H 96 H 96 H Pulse Rate [ From Monitor] Respiratory 16 19 18 Rate Blood Pressure 133/46 133/46 133/46 O2 Sat by Pulse 100 98 99 Oximetry 04/14/20 04/14/20 04/14/20 02:00 02:16 02:30 Temperature Pulse Rate 90 89 90 Pulse Rate [ From Monitor] Respiratory 14 13 13 Rate Blood Pressure 136/48 136/48 136/48 O2 Sat by Pulse 97 98 98 Oximetry 04/14/20 04/14/20 04/14/20 02:46 03:00 03:16 Temperature Pulse Rate 88 90 85 Pulse Rate [ From Monitor] Respiratory 13 14 13 Rate Blood Pressure 136/48 131/38 131/38 O2 Sat by Pulse 96 96 96 Oximetry 04/14/20 04/14/20 04/14/20 03:30 03:45 03:48 Temperature 98.8 F Pulse Rate 89 93 H Pulse Rate [ From Monitor] Respiratory 13 13 Rate Blood Pressure 131/38 O2 Sat by Pulse 99 99 Oximetry 04/14/20 04/14/20 04/14/20 03:56 04:00 04:15 Temperature Pulse Rate 92 H 95 H 91 H Pulse Rate [ From Monitor] Respiratory 11 L 12 Rate Blood Pressure 131/38 112/53 112/53 O2 Sat by Pulse 96 97 96 Oximetry 04/14/20 04/14/20 04/14/20 04:31 04:45 05:00 Temperature Pulse Rate 85 83 83 Pulse Rate [ From Monitor] Respiratory 12 12 11 L Rate Blood Pressure 112/53 112/53 110/47 O2 Sat by Pulse 96 96 96 Oximetry 04/14/20 04/14/20 20 05:15 05:31 05:45 Temperature Pulse Rate 81 86 81 Pulse Rate [ From Monitor] Respiratory 14 12 12 Rate Blood Pressure 110/47 110/47 110/47 O2 Sat by Pulse 96 95 97 Oximetry 04/14/20 04/14/20 20 06:00 06:15 06:31 Temperature Pulse Rate 84 84 85 Pulse Rate [ From Monitor] Respiratory 12 12 12 Rate Blood Pressure 100/47 100/47 100/47 O2 Sat by Pulse 94 97 97 Oximetry 04/14/20 04/14/20 04/14/20 06:45 07:01 07:15 Temperature Pulse Rate 89 86 90 Pulse Rate [ From Monitor] Respiratory 13 12 11 L Rate Blood Pressure 100/47 123/38 123/38 O2 Sat by Pulse 98 97 97 Oximetry 04/14/20 04/14/20 04/14/20 07:31 07:45 08:00 Temperature Pulse Rate 85 87 86 Pulse Rate [ 86 From Monitor] Respiratory 11 L 14 12 Rate Blood Pressure 123/38 123/38 132/46 O2 Sat by Pulse 98 96 97 Oximetry 04/14/20 04/14/20 04/14/20 08:01 08:15 08:31 Temperature Pulse Rate 87 84 85 Pulse Rate [ From Monitor] Respiratory 11 L 12 14 Rate Blood Pressure 132/46 132/46 132/46 O2 Sat by Pulse 97 96 98 Oximetry 04/14/20 04/14/20 04/14/20 08:45 09:00 09:15 Temperature Pulse Rate 86 86 85 Pulse Rate [ From Monitor] Respiratory 13 14 12 Rate Blood Pressure 132/46 157/45 132/46 O2 Sat by Pulse 98 96 97 Oximetry 20/20 20/20 04/14/20 09:31 09:45 09:55 Temperature Pulse Rate 81 84 83 Pulse Rate [ From Monitor] Respiratory 12 11 L Rate Blood Pressure 157/45 157/45 157/45 O2 Sat by Pulse 96 96 Oximetry 04/14/20 04/14/20 04/14/20 10:00 10:15 10:31 Temperature Pulse Rate 85 85 89 Pulse Rate [ From Monitor] Respiratory 12 14 11 L Rate Blood Pressure 150/53 150/53 150/53 O2 Sat by Pulse 96 97 100 Oximetry 04/14/20 04/14/20 04/14/20 10:45 11:01 11:15 Temperature Pulse Rate 84 82 81 Pulse Rate [ From Monitor] Respiratory 9 L 10 L 11 L Rate Blood Pressure 150/53 111/35 111/35 O2 Sat by Pulse 98 97 99 Oximetry 04/14/20 04/14/20 04/14/20 11:31 11:45 12:00 Temperature Pulse Rate 83 78 76 Pulse Rate [ 84 From Monitor] Respiratory 13 14 11 L Rate Blood Pressure 111/35 111/35 134/45 O2 Sat by Pulse 100 100 Oximetry - Lab 04/12/20 08:14 04/13/20 09:09 Most recent lab results ABG pH 7.383 (7.320-7.450) 04/13/20 03:40 ABG pCO2 54.0 mm Hg 04/11/20 03:44 ABG pO2 73.4 mm Hg (80.0-90.0) L 04/11/20 03:44 ABG HCO3 26.7 mmol/L (20.0-26.0) H 04/11/20 03:44 ABG O2 Saturation 95.0 % (95.0-99.0) 04/11/20 03:44 Calcium 8.8 mg/dL (8.4-10.2) 04/13/20 09:09 Magnesium 2.50 mg/dL (1.7-2.3) H 04/06/20 14:30 Medications & Allergies - Medications Allergies/Adverse Reactions: Allergies carrot Allergy (Verified 07/28/19 12:30) Hives erythromycin base Allergy (Verified 07/30/19 11:26) Hives latex Allergy (Verified 02/18/19 13:20) Rash peas Allergy (Verified 12/20/19 12:37) Hives vancomycin Allergy (Verified 12/31/19 15:46) Hives Home Medications: Home Medications Medication Instructions Recorded Confirmed Last Taken Type Aripiprazole 5 mg PO DAILY 02/18/19 04/06/20 02/17/19 History Benadryl CAP 25 mg PO Q8H PRN 02/18/19 04/06/20 02/17/19 History Calcium Acetate 667 mg PO TIDWM 02/18/19 04/06/20 02/17/19 History Carvedilol 6.25 mg PO Q12H 02/18/19 04/06/20 02/17/19 History Colace CAP 100 mg PO Q12H PRN 02/18/19 04/06/20 02/17/19 History Esomeprazole Magnesium 40 mg PO QDAC 02/18/19 04/06/20 02/17/19 History HumaLOG 10 units SUB-Q TIDWM 02/18/19 04/06/20 02/17/19 History Insulin Detemir (Nf) [Levemir See Protocol SQ QHS 02/18/19 04/06/20 02/17/19 His tory Flextouch (Nf)] Losartan Potassium 50 mg PO DAILY 02/18/19 04/06/20 02/17/19 History Lyrica 75 mg PO Q12H 02/18/19 04/06/20 02/17/19 History Melatonin 6 mg PO QHS 02/18/19 04/06/20 02/17/19 History Senna 17.2 mg PO QHS PRN 02/18/19 04/06/20 02/17/19 History Venlafaxine HCl [Venlafaxine HCl 150 mg PO QDAC 02/18/19 04/06/20 02/17/19 History ER] Vitamin C 250 mg PO DAILY 02/18/19 04/06/20 02/17/19 History ZyrTEC 10mg cap 10 mg PO DAILY 02/18/19 04/06/20 02/17/19 History Calcium Acetate [Phoslo] 667 mg PO TIDWM capsule 12/22/19 04/06/20 Unknown Rx Fe Fumarate/FA/Mv, Min Comb#15 1 each PO QDAY capsule 12/22/19 04/06/20 Unknown Rx [Hemocyte Plus] Albuterol Mdi (or & Nicu Only) 2.5 puff IH Q4HRT PRN inha 01/12/20 04/06/20 Unknown Rx [ProAir HFA Inhaler] dexAMETHasone [Decadron] 6 mg PO Q12HR #10 tablet 01/12/20 04/06/20 Unknown Rx oxyCODONE 5 mg PO Q6H PRN #10 01/12/20 04/06/20 Unknown Rx Active Medications: Generic Name Dose Route Start Last Admin Trade Name Freq PRN Reason Stop Dose Admin Acetaminophen 650 mg 04/06/20 16:39 Tylenol PO Q6H PRN Pain, Mild (1-3) Lipase/Protease/Amylase 1 each 04/07/20 10:[address] 10,500 Unit FEEDTUBE PRN PRN For Clogged Feeding Tube Carvedilol 6.25 mg 04/13/20 22:00 04/14/20 09:55 Coreg PO 6.25 mg BID NOEL Administration Dextrose 50 ml 04/09/20 16:30 D50w (25gm) Syringe IV Q30MIN PRN Hypoglycemia Protocol Famotidine 20 mg 04/07/20 10:00 04/14/20 09:55 Pepcid PO 20 mg QDAY NOEL Administration Fentanyl 50 mcg 04/06/20 13:34 Sublimaze IV Q10MIN PRN ANALGESIA Heparin Sodium (Porcine) 5,000 unit 04/06/20 22:00 04/14/20 09:55 Heparin SUB-Q 5,000 unit Q12HR NOEL Administration Hydromorphone HCl 0.25 mg 04/06/20 16:39 Dilaudid IV Q4H PRN Pain, Moderate (4-6) Hydrophilic Ointment 1 applic 04/06/20 13:34 Vaseline Lip Therapy TP Q2HR PRN Dry Lips Fentanyl Citrate 2,000 mcg in 100 mls @ 5.505 mls/hr 04/06/20 14:00 04/14/20 10:25 Fentanyl Drip Premix IV 0 mcg/kg/hr TITR NOEL 0 mls/hr Titration Protocol 1 MCG/KG/HR Sodium Chloride 250 mls @ 10 mls/hr 04/07/20 10:03 04/09/20 05:38 Nacl 0.9% 250ml IV 10 mls/hr DIRECT PRN Administration FOR ABX Sodium Chloride 100 mls @ 999 mls/hr 04/07/20 17:00 Nacl 0.9% IV SPRING PRN Hypotension MEROPENEM/NS 1 GRAM/100 ML 1 gram in 100 mls @ 100 mls/hr 04/10/20 18:00 04/13/20 17:50 Merrem/Ns 1 Gram/100 Ml IV 04/14/20 18:59 100 mls/hr QPM NOEL Administration Protocol Insulin Glargine 10 units 04/09/20 17:00 04/13/20 17:51 Lantus SUB-Q 10 units Q24H NOEL Administration Insulin Human Regular 0 unit 04/09/20 18:00 04/14/20 12:36 Humulin R SUB-Q 1 unit Q6H NOEL Administration Protocol Labetalol HCl 10 mg 04/08/20 17:17 04/12/20 12:53 Labetalol IV 10 mg Q4H PRN Administration Blood Pressure Multi-Ingred Cream/Lotion/Oil/Oint 1 applic 04/06/20 13:34 Artificial Tears Ophth Oint OU Q4HR PRN Dry Eye(s) Simple Syrup 15 ml 04/07/20 10:23 Simple Syrup FEEDTUBE PRN PRN Hypoglycemia Simple Syrup 30 ml 04/07/20 10:23 Simple Syrup FEEDTUBE PRN PRN Hypoglycemia Sodium Bicarbonate 325 mg 04/07/20 10:23 Sodium Bicarbonate FEEDTUBE PRN PRN For Clogged Feeding Tube Sodium Chloride 10 ml 04/06/20 22:00 04/14/20 09:58 Sodium Chloride Flush Syringe 10 Ml IV 10 ml BID NOEL Administration Sodium Chloride 10 ml 04/06/20 16:32 Sodium Chloride Flush Syringe 10 Ml IV PRN PRN LINE FLUSH
--- NOTE | 2020-04-14 16:23 | Progress Note ---
Assessment and Plan 49 yo female w/ previous cva w/ reisdual left hemiparesis, htn, esrd on hd, bipolar d/o, hypoventilation syndrome, anemia of chronic disease, who presents with noted encephalopathy. 1. Metabolic Encephaloapathy - based on clinical history of improvement per RN and EEG findings. 2. Acute Ischemic Stroke - antiplatelet and statin therapy if no contraindications; recommend MRI brain w/o contrast and further workup based on MRI findings. 3. Seizure - EEG reveals diffuse slowing consistent with metabolic enc ephalopathy. Bob Hogue MD Neurology Subjective Date of service: 04/14/20 Principal diagnosis: Ac on ch hypoxemic and hypercapnic resp failure; PUI COVID- 19 infxn; AMS Interval history: Followup on EEG in pt suspected with metabolic encephalopathy. Objective - Exam Narrative Exam: patient not seen today - Vital Sign Vital Signs - 12hr 04/14/20 04/14/20 04/14/20 04:31 04:45 05:00 Pulse Rate 85 83 83 Pulse Rate [ From Monitor] Respiratory 12 12 11 L Rate Blood Pressure 112/53 112/53 110/47 O2 Sat by Pulse 96 96 96 Oximetry 04/14/20 04/14/20 04/14/20 05:15 05:31 05:45 Pulse Rate 81 86 81 Pulse Rate [ From Monitor] Respiratory 14 12 12 Rate Blood Pressure 110/47 110/47 110/47 O2 Sat by Pulse 96 95 97 Oximetry 04/14/20 04/14/20 04/14/20 06:00 06:15 06:31 Pulse Rate 84 84 85 Pulse Rate [ From Monitor] Respiratory 12 12 12 Rate Blood Pressure 100/47 100/47 100/47 O2 Sat by Pulse 94 97 97 Oximetry 04/14/20 04/14/20 04/14/20 06:45 07:01 07:15 Pulse Rate 89 86 90 Pulse Rate [ From Monitor] Respiratory 13 12 11 L Rate Blood Pressure 100/47 123/38 123/38 O2 Sat by Pulse 98 97 97 Oximetry 04/14/20 04/14/20 04/14/20 07:31 07:45 08:00 Pulse Rate 85 87 86 Pulse Rate [ 86 From Monitor] Respiratory 11 L 14 12 Rate Blood Pressure 123/38 123/38 132/46 O2 Sat by Pulse 98 96 97 Oximetry 04/14/20 04/14/20 04/14/20 08:01 08:15 08:31 Pulse Rate 87 84 85 Pulse Rate [ From Monitor] Respiratory 11 L 12 14 Rate Blood Pressure 132/46 132/46 132/46 O2 Sat by Pulse 97 96 98 Oximetry 04/14/20 04/14/20 04/14/20 08:45 09:00 09:15 Pulse Rate 86 86 85 Pulse Rate [ From Monitor] Respiratory 13 14 12 Rate Blood Pressure 132/46 157/45 132/46 O2 Sat by Pulse 98 96 97 Oximetry 04/14/20 04/14/20 04/14/20 09:31 09:45 09:55 Pulse Rate 81 84 83 Pulse Rate [ From Monitor] Respiratory 12 11 L Rate Blood Pressure 157/45 157/45 157/45 O2 Sat by Pulse 96 96 Oximetry 04/14/20 04/14/20 04/14/20 10:00 10:15 10:31 Pulse Rate 85 85 89 Pulse Rate [ From Monitor] Respiratory 12 14 11 L Rate Blood Pressure 150/53 150/53 150/53 O2 Sat by Pulse 96 97 100 Oximetry 04/14/20 04/14/20 04/14/20 10:45 11:01 11:15 Pulse Rate 84 82 82 Pulse Rate [ From Monitor] Respiratory 9 L 10 L 10 L Rate Blood Pressure 150/53 111/35 143/47 O2 Sat by Pulse 98 97 100 Oximetry 04/14/20 04/14/20 04/14/20 11:31 11:45 12:00 Pulse Rate 83 78 76 Pulse Rate [ 84 From Monitor] Respiratory 13 14 11 L Rate Blood Pressure 111/35 111/35 134/45 O2 Sat by Pulse 100 100 Oximetry 04/14/20 04/14/20 04/14/20 12:15 12:31 12:45 Pulse Rate 78 74 74 Pulse Rate [ From Monitor] Respiratory 16 15 12 Rate Blood Pressure 134/45 134/45 134/45 O2 Sat by Pulse 100 100 100 Oximetry 04/14/20 04/14/20 04/14/20 13:00 13:15 13:31 Pulse Rate 86 76 90 Pulse Rate [ From Monitor] Respiratory 11 L 9 L 13 Rate Blood Pressure 143/47 143/47 143/47 O2 Sat by Pulse 98 99 100 Oximetry 04/14/20 04/14/20 04/14/20 13:45 14:00 14:15 Pulse Rate 79 81 74 Pulse Rate [ From Monitor] Respiratory 12 13 11 L Rate Blood Pressure 143/47 137/56 137/56 O2 Sat by Pulse 100 97 99 Oximetry 04/14/20 04/14/20 04/14/20 14:31 14:45 15:00 Pulse Rate 74 73 82 Pulse Rate [ From Monitor] Respiratory 12 17 12 Rate Blood Pressure 137/56 137/56 131/60 O2 Sat by Pulse 100 100 98 Oximetry - Laboratory Findings CBC and BMP: 04/12/20 08:14 04/13/20 09:09 Abnormal Lab Findings: Abnormal Labs 04/06/20 04/06/20 04/06/20 13:34 14:30 14:30 WBC 19.2 H RBC Hgb Hct RDW 17.8 H Seg Neuts % (Manual) 90.0 H Lymphocytes % (Manual) 4.0 L Basophils % (Manual) Seg Neutrophils # Man 17.3 H Lymphocytes # (Manual) 0.8 L Monocytes # (Manual) Eosinophils # (Manual) Basophils # (Manual) D-Dimer ABG pH POC ABG pCO2 POC ABG pO2 ABG pO2 ABG HCO3 ABG Base Excess ABG Hemoglobin ABG Sodium ABG Chloride ABG Glucose Oxyhemoglobin Sodium Potassium 5.2 H Chloride Carbon Dioxide 17 L BUN 53 H Creatinine 7.8 H Glucose 144 H POC Glucose Calcium Magnesium Ferritin Alkaline Phosphatase 738 H Lactate Dehydrogenase Total Creatine Kinase 23 L Troponin T 0.224 H* C-Reactive Protein Albumin 3.1 L Triglycerides 342 H Cholesterol 223 H HDL Cholesterol 35 L Arterial Blood Glucose Arterial Blood Ionized Calcium Urine WBC (Auto) > 182.0 H Salicylates Acetaminophen Hepatitis C Antibody 04/06/20 04/06/20 04/06/20 14:30 14:30 14:30 WBC RBC Hgb Hct RDW Seg Neuts % (Manual) Lymphocytes % (Manual) Basophils % (Manual) Seg Neutrophils # Man Lymphocytes # (Manual) Monocytes # (Manual) Eosinophils # (Manual) Basophils # (Manual) D-Dimer ABG pH POC ABG pCO2 POC ABG pO2 ABG pO2 ABG HCO3 ABG Base Excess ABG Hemoglobin ABG Sodium ABG Chloride ABG Glucose Oxyhemoglobin Sodium Potassium Chloride Carbon Dioxide BUN Creatinine Glucose POC Glucose Calcium Magnesium 2.50 H Ferritin Alkaline Phosphatase Lactate Dehydrogenase Total Creatine Kinase 24 L Troponin T C-Reactive Protein Albumin Triglycerides Cholesterol HDL Cholesterol Arterial Blood Glucose Arterial Blood Ionized Calcium Urine WBC (Auto) Salicylates < 0.3 L Acetaminophen 5.0 L Hepatitis C Antibody 04/06/20 04/06/20 04/07/20 14:39 20:00 00:48 WBC RBC Hgb Hct RDW Seg Neuts % (Manual) Lymphocytes % (Manual) Basophils % (Manual) Seg Neutrophils # Man Lymphocytes # (Manual) Monocytes # (Manual) Eosinophils # (Manual) Basophils # (Manual) D-Dimer ABG pH 7.281 L 7.306 L POC ABG pCO2 POC ABG pO2 78.0 L ABG pO2 133.8 H ABG HCO3 18.3 L ABG Base Excess -7.8 L ABG Hemoglobin 10.8 L 10.8 L ABG Sodium ABG Chloride 108.0 H ABG Glucose Oxyhemoglobin Sodium Potassium Chloride Carbon Dioxide BUN Creatinine Glucose POC Glucose 69 L Calcium Magnesium Ferritin Alkaline Phosphatase Lactate Dehydrogenase Total Creatine Kinase Troponin T C-Reactive Protein Albumin Triglycerides Cholesterol HDL Cholesterol Arterial Blood Glucose Arterial Blood Ionized Calcium Urine WBC (Auto) Salicylates Acetaminophen Hepatitis C Antibody 04/07/20 04/07/20 04/07/20 09:34 09:34 09:34 WBC RBC Hgb Hct RDW Seg Neuts % (Manual) Lymphocytes % (Manual) Basophils % (Manual) Seg Neutrophils # Man Lymphocytes # (Manual) Monocytes # (Manual) Eosinophils # (Manual) Basophils # (Manual) D-Dimer 1063.66 H ABG pH POC ABG pCO2 POC ABG pO2 ABG pO2 ABG HCO3 ABG Base Excess ABG Hemoglobin ABG Sodium ABG Chloride ABG Glucose Oxyhemoglobin Sodium Potassium Chloride Carbon Dioxide BUN Creatinine Glucose POC Glucose Calcium Magnesium Ferritin 743.0 H Alkaline Phosphatase Lactate Dehydrogenase 195 H Total Creatine Kinase Troponin T C-Reactive Protein 7.50 H Albumin Triglycerides Cholesterol HDL Cholesterol Arterial Blood Glucose Arterial Blood Ionized Calcium Urine WBC (Auto) Salicylates Acetaminophen Hepatitis C Antibody 04/07/20 04/07/20 04/07/20 10:01 16:38 23:51 WBC RBC Hgb Hct RDW Seg Neuts % (Manual) Lymphocytes % (Manual) Basophils % (Manual) Seg Neutrophils # Man Lymphocytes # (Manual) Monocytes # (Manual) Eosinophils # (Manual) Basophils # (Manual) D-Dimer ABG pH POC ABG pCO2 POC ABG pO2 79.8 L ABG pO2 ABG HCO3 ABG Base Excess ABG Hemoglobin 10.3 L ABG Sodium ABG Chloride 109.0 H ABG Glucose Oxyhemoglobin Sodium Potassium Chloride Carbon Dioxide BUN Creatinine Glucose POC Glucose 117 H Calcium Magnesium Ferritin Alkaline Phosphatase Lactate Dehydrogenase Total Creatine Kinase Troponin T C-Reactive Protein Albumin Triglycerides Cholesterol HDL Cholesterol Arterial Blood Glucose Arterial Blood Ionized Calcium 4.5 L Urine WBC (Auto) Salicylates Acetaminophen Hepatitis C Antibody Reactive A 04/08/20 04/08/20 04/08/20 04:58 12:48 17:03 WBC RBC Hgb Hct RDW Seg Neuts % (Manual) Lymphocytes % (Manual) Basophils % (Manual) Seg Neutrophils # Man Lymphocytes # (Manual) Monocytes # (Manual) Eosinophils # (Manual) Basophils # (Manual) D-Dimer ABG pH POC ABG pCO2 POC ABG pO2 ABG pO2 ABG HCO3 ABG Base Excess ABG Hemoglobin ABG Sodium ABG Chloride ABG Glucose Oxyhemoglobin Sodium Potassium Chloride Carbon Dioxide BUN Creatinine Glucose POC Glucose 129 H 155 H 201 H Calcium Magnesium Ferritin Alkaline Phosphatase Lactate Dehydrogenase Total Creatine Kinase Troponin T C-Reactive Protein Albumin Triglycerides Cholesterol HDL Cholesterol Arterial Blood Glucose Arterial Blood Ionized Calcium Urine WBC (Auto) Salicylates Acetaminophen Hepatitis C Antibody 04/08/20 04/08/20 04/09/20 23:49 Unknown 05:31 WBC RBC Hgb Hct RDW Seg Neuts % (Manual) Lymphocytes % (Manual) Basophils % (Manual) Seg Neutrophils # Man Lymphocytes # (Manual) Monocytes # (Manual) Eosinophils # (Manual) Basophils # (Manual) D-Dimer ABG pH 7.349 L POC ABG pCO2 POC ABG pO2 ABG pO2 117.3 H ABG HCO3 ABG Base Excess ABG Hemoglobin 7.4 L ABG Sodium ABG Chloride ABG Glucose Oxyhemoglobin Sodium Potassium Chloride Carbon Dioxide BUN Creatinine Glucose POC Glucose 178 H 248 H Calcium Magnesium Ferritin Alkaline Phosphatase Lactate Dehydrogenase Total Creatine Kinase Troponin T C-Reactive Protein Albumin Triglycerides Cholesterol HDL Cholesterol Arterial Blood Glucose Arterial Blood Ionized Calcium Urine WBC (Auto) Salicylates Acetaminophen Hepatitis C Antibody 04/09/20 04/09/20 04/09/20 11:39 17:35 Unknown WBC RBC Hgb Hct RDW Seg Neuts % (Manual) Lymphocytes % (Manual) Basophils % (Manual) Seg Neutrophils # Man Lymphocytes # (Manual) Monocytes # (Manual) Eosinophils # (Manual) Basophils # (Manual) D-Dimer ABG pH POC ABG pCO2 51.6 H POC ABG pO2 ABG pO2 ABG HCO3 ABG Base Excess ABG Hemoglobin 11.4 L ABG Sodium 130.1 L ABG Chloride ABG Glucose 249 H Oxyhemoglobin Sodium Potassium Chloride Carbon Dioxide BUN Creatinine Glucose POC Glucose 319 H 254 H Calcium Magnesium Ferritin Alkaline Phosphatase Lactate Dehydrogenase Total Creatine Kinase Troponin T C-Reactive Protein Albumin Triglycerides Cholesterol HDL Cholesterol Arterial Blood Glucose 249 H Arterial Blood Ionized Calcium 4.1 L Urine WBC (Auto) Salicylates Acetaminophen Hepatitis C Antibody 04/10/20 04/10/20 04/10/20 00:00 03:15 05:49 WBC RBC Hgb Hct RDW Seg Neuts % (Manual) Lymphocytes % (Manual) Basophils % (Manual) Seg Neutrophils # Man Lymphocytes # (Manual) Monocytes # (Manual) Eosinophils # (Manual) Basophils # (Manual) D-Dimer ABG pH POC ABG pCO2 48.2 H POC ABG pO2 ABG pO2 ABG HCO3 ABG Base Excess ABG Hemoglobin 9.9 L ABG Sodium 135.4 L ABG Chloride ABG Glucose 215 H Oxyhemoglobin Sodium Potassium Chloride Carbon Dioxide BUN Creatinine Glucose POC Glucose 194 H 221 H Calcium Magnesium Ferritin Alkaline Phosphatase Lactate Dehydrogenase Total Creatine Kinase Troponin T C-Reactive Protein Albumin Triglycerides Cholesterol HDL Cholesterol Arterial Blood Glucose 215 H Arterial Blood Ionized Calcium 4.5 L Urine WBC (Auto) Salicylates Acetaminophen Hepatitis C Antibody 04/10/20 04/10/20 04/10/20 08:18 08:18 12:22 WBC 28.9 H RBC 3.38 L Hgb 9.5 L Hct 30.1 L RDW 16.9 H Seg Neuts % (Manual) 87.0 H Lymphocytes % (Manual) 9.0 L Basophils % (Manual) 2.0 H Seg Neutrophils # Man 25.1 H Lymphocytes # (Manual) Monocytes # (Manual) Eosinophils # (Manual) Basophils # (Manual) 0.6 H D-Dimer ABG pH POC ABG pCO2 POC ABG pO2 ABG pO2 ABG HCO3 ABG Base Excess ABG Hemoglobin ABG Sodium ABG Chloride ABG Glucose Oxyhemoglobin Sodium 134 L Potassium 3.5 L D Chloride 94.9 L Carbon Dioxide BUN 38 H Creatinine 5.5 H Glucose 230 H POC Glucose 218 H Calcium Magnesium Ferritin Alkaline Phosphatase Lactate Dehydrogenase Total Creatine Kinase Troponin T C-Reactive Protein Albumin Triglycerides Cholesterol HDL Cholesterol Arterial Blood Glucose Arterial Blood Ionized Calcium Urine WBC (Auto) Salicylates Acetaminophen Hepatitis C Antibody 04/10/20 04/10/20 04/10/20 17:27 18:08 23:29 WBC RBC Hgb Hct RDW Seg Neuts % (Manual) Lymphocytes % (Manual) Basophils % (Manual) Seg Neutrophils # Man Lymphocytes # (Manual) Monocytes # (Manual) Eosinophils # (Manual) Basophils # (Manual) D-Dimer ABG pH POC ABG pCO2 POC ABG pO2 ABG pO2 ABG HCO3 ABG Base Excess ABG Hemoglobin ABG Sodium ABG Chloride ABG Glucose Oxyhemoglobin Sodium Potassium Chloride Carbon Dioxide BUN Creatinine Glucose POC Glucose 218 H 223 H 166 H Calcium Magnesium Ferritin Alkaline Phosphatase Lactate Dehydrogenase Total Creatine Kinase Troponin T C-Reactive Protein Albumin Triglycerides Cholesterol HDL Cholesterol Arterial Blood Glucose Arterial Blood Ionized Calcium Urine WBC (Auto) Salicylates Acetaminophen Hepatitis C Antibody 04/11/20 04/11/20 04/11/20 03:44 05:28 07:39 WBC 26.9 H RBC 3.32 L Hgb 9.4 L Hct 29.5 L RDW 17.2 H Seg Neuts % (Manual) 83.0 H Lymphocytes % (Manual) 10.0 L Basophils % (Manual) Seg Neutrophils # Man 22.3 H Lymphocytes # (Manual) Monocytes # (Manual) 1.1 H Eosinophils # (Manual) 0.5 H Basophils # (Manual) D-Dimer ABG pH 7.313 L POC ABG pCO2 POC ABG pO2 ABG pO2 73.4 L ABG HCO3 26.7 H ABG Base Excess ABG Hemoglobin 11.0 L ABG Sodium ABG Chloride ABG Glucose Oxyhemoglobin 92.8 L Sodium Potassium Chloride Carbon Dioxide BUN Creatinine Glucose POC Glucose 164 H Calcium Magnesium Ferritin Alkaline Phosphatase Lactate Dehydrogenase Total Creatine Kinase Troponin T C-Reactive Protein Albumin Triglycerides Cholesterol HDL Cholesterol Arterial Blood Glucose Arterial Blood Ionized Calcium Urine WBC (Auto) Salicylates Acetaminophen Hepatitis C Antibody 04/11/20 04/11/20 04/11/20 07:39 12:25 19:02 WBC RBC Hgb Hct RDW Seg Neuts % (Manual) Lymphocytes % (Manual) Basophils % (Manual) Seg Neutrophils # Man Lymphocytes # (Manual) Monocytes # (Manual) Eosinophils # (Manual) Basophils # (Manual) D-Dimer ABG pH POC ABG pCO2 POC ABG pO2 ABG pO2 ABG HCO3 ABG Base Excess ABG Hemoglobin ABG Sodium ABG Chloride ABG Glucose Oxyhemoglobin Sodium Potassium Chloride Carbon Dioxide BUN 48 H Creatinine 6.1 H Glucose 122 H POC Glucose 175 H 175 H Calcium 8.3 L Magnesium Ferritin Alkaline Phosphatase Lactate Dehydrogenase Total Creatine Kinase Troponin T C-Reactive Protein Albumin Triglycerides Cholesterol HDL Cholesterol Arterial Blood Glucose Arterial Blood Ionized Calcium Urine WBC (Auto) Salicylates Acetaminophen Hepatitis C Antibody 04/12/20 04/12/20 04/12/20 00:02 05:51 08:14 WBC 28.0 H RBC 3.29 L Hgb 9.5 L Hct 29.1 L RDW 16.9 H Seg Neuts % (Manual) 88.0 H Lymphocytes % (Manual) 7.0 L Basophils % (Manual) Seg Neutrophils # Man 24.6 H Lymphocytes # (Manual) Monocytes # (Manual) Eosinophils # (Manual) 0.6 H Basophils # (Manual) D-Dimer ABG pH POC ABG pCO2 POC ABG pO2 ABG pO2 ABG HCO3 ABG Base Excess ABG Hemoglobin ABG Sodium ABG Chloride ABG Glucose Oxyhemoglobin Sodium Potassium Chloride Carbon Dioxide BUN Creatinine Glucose POC Glucose 146 H 151 H Calcium Magnesium Ferritin Alkaline Phosphatase Lactate Dehydrogenase Total Creatine Kinase Troponin T C-Reactive Protein Albumin Triglycerides Cholesterol HDL Cholesterol Arterial Blood Glucose Arterial Blood Ionized Calcium Urine WBC (Auto) Salicylates Acetaminophen Hepatitis C Antibody 04/12/20 04/12/20 04/12/20 08:14 12:21 17:26 WBC RBC Hgb Hct RDW Seg Neuts % (Manual) Lymphocytes % (Manual) Basophils % (Manual) Seg Neutrophils # Man Lymphocytes # (Manual) Monocytes # (Manual) Eosinophils # (Manual) Basophils # (Manual) D-Dimer ABG pH POC ABG pCO2 POC ABG pO2 ABG pO2 ABG HCO3 ABG Base Excess ABG Hemoglobin ABG Sodium ABG Chloride ABG Glucose Oxyhemoglobin Sodium Potassium 3.3 L Chloride Carbon Dioxide BUN 32 H Creatinine 4.3 H Glucose 188 H POC Glucose 196 H 235 H Calcium Magnesium Ferritin Alkaline Phosphatase Lactate Dehydrogenase Total Creatine Kinase Troponin T C-Reactive Protein Albumin Triglycerides Cholesterol HDL Cholesterol Arterial Blood Glucose Arterial Blood Ionized Calcium Urine WBC (Auto) Salicylates Acetaminophen Hepatitis C Antibody 04/12/20 04/13/20 04/13/20 23:34 03:40 05:33 WBC RBC Hgb Hct RDW Seg Neuts % (Manual) Lymphocytes % (Manual) Basophils % (Manual) Seg Neutrophils # Man Lymphocytes # (Manual) Monocytes # (Manual) Eosinophils # (Manual) Basophils # (Manual) D-Dimer ABG pH POC ABG pCO2 POC ABG pO2 ABG pO2 ABG HCO3 ABG Base Excess ABG Hemoglobin 9.4 L ABG Sodium 133.6 L ABG Chloride ABG Glucose 172 H Oxyhemoglobin Sodium Potassium Chloride Carbon Dioxide BUN Creatinine Glucose POC Glucose 171 H 167 H Calcium Magnesium Ferritin Alkaline Phosphatase Lactate Dehydrogenase Total Creatine Kinase Troponin T C-Reactive Protein Albumin Triglycerides Cholesterol HDL Cholesterol Arterial Blood Glucose 172 H Arterial Blood Ionized Calcium Urine WBC (Auto) Salicylates Acetaminophen Hepatitis C Antibody 04/13/20 04/13/20 04/13/20 07:49 09:09 11:34 WBC RBC Hgb Hct RDW Seg Neuts % (Manual) Lymphocytes % (Manual) Basophils % (Manual) Seg Neutrophils # Man Lymphocytes # (Manual) Monocytes # (Manual) Eosinophils # (Manual) Basophils # (Manual) D-Dimer ABG pH POC ABG pCO2 POC ABG pO2 ABG pO2 ABG HCO3 ABG Base Excess ABG Hemoglobin ABG Sodium ABG Chloride ABG Glucose Oxyhemoglobin Sodium Potassium Chloride Carbon Dioxide 31 H BUN 44 H 43 H Creatinine 5.0 H 4.9 H Glucose 164 H 164 H POC Glucose 155 H Calcium Magnesium Ferritin Alkaline Phosphatase Lactate Dehydrogenase Total Creatine Kinase Troponin T C-Reactive Protein Albumin Triglycerides Cholesterol HDL Cholesterol Arterial Blood Glucose Arterial Blood Ionized Calcium Urine WBC (Auto) Salicylates Acetaminophen Hepatitis C Antibody 04/13/20 04/13/20 04/14/20 17:38 23:40 04:35 WBC RBC Hgb Hct RDW Seg Neuts % (Manual) Lymphocytes % (Manual) Basophils % (Manual) Seg Neutrophils # Man Lymphocytes # (Manual) Monocytes # (Manual) Eosinophils # (Manual) Basophils # (Manual) D-Dimer ABG pH POC ABG pCO2 POC ABG pO2 ABG pO2 ABG HCO3 ABG Base Excess ABG Hemoglobin ABG Sodium ABG Chloride ABG Glucose Oxyhemoglobin Sodium Potassium Chloride Carbon Dioxide BUN Creatinine Glucose POC Glucose 180 H 130 H 121 H Calcium Magnesium Ferritin Alkaline Phosphatase Lactate Dehydrogenase Total Creatine Kinase Troponin T C-Reactive Protein Albumin Triglycerides Cholesterol HDL Cholesterol Arterial Blood Glucose Arterial Blood Ionized Calcium Urine WBC (Auto) Salicylates Acetaminophen Hepatitis C Antibody 04/14/20 12:17 WBC RBC Hgb Hct RDW Seg Neuts % (Manual) Lymphocytes % (Manual) Basophils % (Manual) Seg Neutrophils # Man Lymphocytes # (Manual) Monocytes # (Manual) Eosinophils # (Manual) Basophils # (Manual) D-Dimer ABG pH POC ABG pCO2 POC ABG pO2 ABG pO2 ABG HCO3 ABG Base Excess ABG Hemoglobin ABG Sodium ABG Chloride ABG Glucose Oxyhemoglobin Sodium Potassium Chloride Carbon Dioxide BUN Creatinine Glucose POC Glucose 170 H Calcium Magnesium Ferritin Alkaline Phosphatase Lactate Dehydrogenase Total Creatine Kinase Troponin T C-Reactive Protein Albumin Triglycerides Cholesterol HDL Cholesterol Arterial Blood Glucose Arterial Blood Ionized Calcium Urine WBC (Auto) Salicylates Acetaminophen Hepatitis C Antibody
[2020-04-14] MEDS: MEROPENEM/NS 1 GRAM/100 ML 1 GRAM/100 ML BAG IV SCH (17:11)
[2020-04-14] MEDS: INSULIN GLARGINE 100 UNITS/ML SUB-Q SCH (17:11)
[2020-04-15] MEDS: INSULIN REGULAR, HUMAN 100 UNIT/ML 3ML VIAL SUB-Q SCH ×4 (00:43→17:32)
[2020-04-15] MEDS: fentaNYL DRIP Premix 2,000 MCG/100 ML BAG IV SCH ×3 (03:49→19:33)
--- NOTE | 2020-04-15 08:34 | Progress Note ---
Assessment and Plan Impression: * End stage renal disease * Sepsis * Positive blood cx - likely contaminant --Blood cx: staph epi (05/29 bottles - Apr 06) * Acute hypoxic respiratory failure * Acute encephalopathy * Acute ischemic stroke * UTI * Hx of COVID 19 --SARS Cov2 PCR negative Apr 07 * Metabolic acidosis Plan: * Continue hemodialysis on TTS schedule * UF as tolerated * Abx per ID * neurology notes reviewed * Vent management per CCM * Dose medications for renal function * AM labs Subjective Date of service: 04/15/20 Principal diagnosis: Ac on ch hypoxemic and hypercapnic resp failure; PUI COVID- 19 infxn; AMS Interval history: resting in bed, events noted Objective - Exam Narrative Exam: General appearance: well-developed, well-nourished EENT: ATNC, other (ETT in place) Respiratory: Present: Other (coarse BS) Cardiology: regular, S1S2 Gastrointestinal: obese Integumentary: warm and dry Musculoskeletal: other (Bilateral BKA) - Vital Signs Vital signs: Vital Signs - 12hr 04/14/20 04/14/20 04/14/20 21:00 22:01 22:56 Temperature 98.4 F Pulse Rate 86 82 Pulse Rate [ From Monitor] Respiratory 13 13 Rate Blood Pressure 130/39 129/41 O2 Sat by Pulse 98 99 Oximetry 04/14/20 04/14/20 04/15/20 23:00 23:32 00:00 Temperature Pulse Rate 88 90 87 Pulse Rate [ 85 From Monitor] Respiratory 11 L 9 L Rate Blood Pressure 143/81 143/81 162/51 O2 Sat by Pulse 98 100 99 Oximetry 04/15/20 04/15/20 04/15/20 01:00 02:00 02:52 Temperature 98.4 F Pulse Rate 87 93 H Pulse Rate [ From Monitor] Respiratory 12 13 Rate Blood Pressure 159/46 173/44 O2 Sat by Pulse 97 99 Oximetry 04/15/20 04/15/20 04/15/20 03:00 03:11 04:00 Temperature Pulse Rate 81 78 77 Pulse Rate [ 77 From Monitor] Respiratory 9 L 12 Rate Blood Pressure 174/57 174/57 O2 Sat by Pulse 98 99 99 Oximetry 04/15/20 04/15/20 04/15/20 04:01 05:01 06:00 Temperature Pulse Rate 77 85 88 Pulse Rate [ From Monitor] Respiratory 11 L 11 L 17 Rate Blood Pressure 143/41 162/46 149/59 O2 Sat by Pulse 99 99 97 Oximetry 04/15/20 04/15/20 04/15/20 07:01 07:20 08:00 Temperature Pulse Rate 76 85 85 Pulse Rate [ From Monitor] Respiratory 12 Rate Blood Pressure 116/36 116/36 O2 Sat by Pulse 97 100 Oximetry 04/15/20 08:01 Temperature Pulse Rate 79 Pulse Rate [ From Monitor] Respiratory 12 Rate Blood Pressure 148/50 O2 Sat by Pulse 97 Oximetry - Lab 04/12/20 08:14 04/13/20 09:09 Most recent lab results ABG pH 7.383 (7.320-7.450) 04/13/20 03:40 ABG pCO2 54.0 mm Hg 04/11/20 03:44 ABG pO2 73.4 mm Hg (80.0-90.0) L 04/11/20 03:44 ABG HCO3 26.7 mmol/L (20.0-26.0) H 04/11/20 03:44 ABG O2 Saturation 95.0 % (95.0-99.0) 04/11/20 03:44 Calcium 8.8 mg/dL (8.4-10.2) 04/13/20 09:09 Magnesium 2.50 mg/dL (1.7-2.3) H 04/06/20 14:30 Medications & Allergies - Medications Allergies/Adverse Reactions: Allergies carrot Allergy (Verified 07/28/19 12:30) Hives erythromycin base Allergy (Verified 07/30/19 11:26) Hives latex Allergy (Verified 02/18/19 13:20) Rash peas Allergy (Verified 12/20/19 12:37) Hives vancomycin Allergy (Verified 12/31/19 15:46) Hives Home Medications: Home Medications Medication Instructions Recorded Confirmed Last Taken Type Aripiprazole 5 mg PO DAILY 02/18/19 04/06/20 02/17/19 History Benadryl CAP 25 mg PO Q8H PRN 02/18/19 04/06/20 02/17/19 History Calcium Acetate 667 mg PO TIDWM 02/18/19 04/06/20 02/17/19 History Carvedilol 6.25 mg PO Q12H 02/18/19 04/06/20 02/17/19 History Colace CAP 100 mg PO Q12H PRN 02/18/19 04/06/20 02/17/19 History Esomeprazole Magnesium 40 mg PO QDAC 02/18/19 04/06/20 02/17/19 History HumaLOG 10 units SUB-Q TIDWM 02/18/19 04/06/20 02/17/19 History Insulin Detemir (Nf) [Levemir See Protocol SQ QHS 02/18/19 04/06/20 02/17/19 History Flextouch (Nf)] Losartan Potassium 50 mg PO DAILY 02/18/19 04/06/20 02/17/19 History Lyrica 75 mg PO Q12H 02/18/19 04/06/20 02/17/19 History Melatonin 6 mg PO QHS 02/18/19 04/06/20 02/17/19 History Senna 17.2 mg PO QHS PRN 02/18/19 04/06/20 02/17/19 History Venlafaxine HCl [Venlafaxine HCl 150 mg PO QDAC 02/18/19 04/06/20 02/17/19 History ER] Vitamin C 250 mg PO DAILY 02/18/19 04/06/20 02/17/19 History ZyrTEC 10mg cap 10 mg PO DAILY 02/18/19 04/06/20 02/17/19 History Calcium Acetate [Phoslo] 667 mg PO TIDWM capsule 12/22/19 04/06/20 Unknown Rx Fe Fumarate/FA/Mv, Min Comb#15 1 each PO QDAY capsule 12/22/19 04/06/20 Unknown Rx [Hemocyte Plus] Albuterol Mdi (or & Nicu Only) 2.5 puff IH Q4HRT PRN inha 01/12/20 04/06/20 Unknown Rx [ProAir HFA Inhaler] dexAMETHasone [Decadron] 6 mg PO Q12HR #10 tablet 01/12/20 04/06/20 Unknown Rx oxyCODONE 5 mg PO Q6H PRN #10 01/12/20 04/06/20 Unknown Rx Active Medications: Generic Name Dose Route Start Last Admin Trade Name Freq PRN Reason Stop Dose Admin Acetaminophen 650 mg 04/06/20 16:39 Tylenol PO Q6H PRN Pain, Mild (1-3) Lipase/Protease/Amylase 1 each 04/07/20 10:[address] 10,500 Unit FEEDTUBE PRN PRN For Clogged Feeding Tube Carvedilol 6.25 mg 04/13/20 22:00 04/14/20 22:12 Coreg PO 6.25 mg BID NOEL Administration Dextrose 50 ml 04/09/20 16:30 D50w (25gm) Syringe IV Q30MIN PRN Hypoglycemia Protocol Famotidine 20 mg 04/07/20 10:00 04/14/20 09:55 Pepcid PO 20 mg QDAY NOEL Administration Fentanyl 50 mcg 04/06/20 13:34 Sublimaze IV Q10MIN PRN ANALGESIA Heparin Sodium (Porcine) 5,000 unit 04/06/20 22:00 04/14/20 22:12 Heparin SUB-Q 5,000 unit Q12HR NOEL Administration Hydromorphone HCl 0.25 mg 04/06/20 16:39 Dilaudid IV Q4H PRN Pain, Moderate (4-6) Hydrophilic Ointment 1 applic 04/06/20 13:34 Vaseline Lip Therapy TP Q2HR PRN Dry Lips Fentanyl Citrate 2,000 mcg in 100 mls @ 5.505 mls/hr 04/06/20 14:00 04/15/20 03:49 Fentanyl Drip Premix IV 3 mcg/kg/hr TITR NOEL 16.515 mls/hr Administration Protocol 1 MCG/KG/HR Sodium Chloride 250 mls @ 10 mls/hr 04/07/20 10:03 04/09/20 05:38 Nacl 0.9% 250ml IV 10 mls/hr DIRECT PRN Administration FOR ABX Sodium Chloride 100 mls @ 999 mls/hr 04/07/20 17:00 Nacl 0.9% IV SPRING PRN Hypotension Insulin Glargine 10 units 04/09/20 17:00 04/14/20 17:11 Lantus SUB-Q 10 units Q24H NOEL Administration Insulin Human Regular 0 unit 04/09/20 18:00 04/15/20 05:33 Humulin R SUB-Q Not Given Q6H [facility] Protocol Labetalol HCl 10 mg 04/08/20 17:17 04/12/20 12:53 Labetalol IV 10 mg Q4H PRN Administration Blood Pressure Multi-Ingred Cream/Lotion/Oil/Oint 1 applic 04/06/20 13:34 Artificial Tears Ophth Oint OU Q4HR PRN Dry Eye(s) Simple Syrup 15 ml 04/07/20 10:23 Simple Syrup FEEDTUBE PRN PRN Hypoglycemia Simple Syrup 30 ml 04/07/20 10:23 Simple Syrup FEEDTUBE PRN PRN Hypoglycemia Sodium Bicarbonate 325 mg 04/07/20 10:23 Sodium Bicarbonate FEEDTUBE PRN PRN For Clogged Feeding Tube Sodium Chloride 10 ml 04/06/20 22:00 04/15/20 00:44 Sodium Chloride Flush Syringe 10 Ml IV Not Given BID NOEL Sodium Chloride 10 ml 04/06/20 16:32 Sodium Chloride Flush Syringe 10 Ml IV PRN PRN LINE FLUSH
--- NOTE | 2020-04-15 08:58 | Progress Note ---
Assessment and Plan Assessment and plan: Severe sepsis. Present on admission with hypothermia, leukocytosis, altered mental status, likely due to bilateral pneumonia. F/U Blood Cx. Cont. Abx pre ID Bilateral pneumonia. Aspiration pneumonia/HAP Severe UTI. Bains catheter with purulent urine. Acute hypoxemic respiratory failure. Intubated for airway protection, O2 sats down to 87%. Toxic metabolic encephalopathy. Etiology secondary to sepsis End-stage renal disease on hemodialysis Extensive Candidal intertrigo in groin and vagina. Cont. Fluconazole History COVID-19 infection (01/07/2020) 04/08/2020. Patient remains intubated on mechanical ventilation with AC mode ventilation rate 12, tidal volume 450, FiO2 40% and a PEEP of 6. Continue weaning per protocols. Patient with ESRD and continue TTS schedule per nephrology. Patient does have a history of COVID-19 infection(01/07/20) but negative testing April 07. Follow-up blood/urine/sputum culture. Continue antibiotics per ID recommendations. 04/09/2020. Patient not tolerating PSV 12/6 with FiO2 of 30%. Continue hemodialysis per nephrology recommendations. Continue IV antibiotics per ID recommendations. Blood cultures no growth to date. Respiratory therapy reports patient with accelerated hypertension and apneic episodes on PSV ventilation. Await pulmonary recommendations. 04/10/2020. Patient remains on mechanical ventilation AC mode rate 12, tidal volume 450, FiO2 30% and a PEEP of 6. Continue PSV trials per protocols. Continue hemodialysis per nephrology recommendations. Continue anti-infectives of fluconazole and cefepime. Follow-up blood/urine/sputum culture. ID, pulmonary and nephrology following. 04/11/2020; patient remains on mechanical ventilation AC mode rate 12, tidal volume 450, FiO2 of 30 and PEEP of 6. Continue PSV trials per protocols. continue hemodialysis per nephrology. ID changed antibiotics to meropenem. Blood culture grew staph epidermidis likey contaminant. 04/12/2020; patient is intubated, patient open eyes spontaneously. Neurology consulted and continue on replacement treatment. EEG is pending. Recommend MRI. Patient is on meropenem per ID recommendation. Pulmonary is following. Patient is on spontaneous breathing trial 04/13/2020; patient is intubated. Patient's blood pressure was high yesterday, amlodipine and hydralazine was added. Overnight his blood pressure was low and will also BP medications. We will continue to follow. 04/14/2020; patient is intubated and blood pressure is on the low side of normal. Patient is on meropenem 09/27. 04/15/2020; patient is intubated, on spontaneous breathing trial. Pulmonary is following. neurology recommend MRI. The high probability of a clinically significant, sudden or life threatening deterioration of the [respiratory] system(s) required my full and direct attention, intervention and personal management. The aggregate critical care time was [33] minutes. This time is in addition to time spent performing reported procedures but includes the following: [x] Data Review and interpretation [x] Patient assessment and monitoring of vital signs [x] Documentation [x] Medication orders and management History Interval history: 49 years old female with history of asthma, hypertension, end-stage renal disease on hemodialysis, diabetes mellitus, bipolar disorder, morbid obesity, CV A, resident of a halfway, admitted on 04/06/2020 secondary to be found Unresponsiveness after hemodialysis. Patient is unable to provide history, currently intubated. Patient received hemodialysis and after completion she became unresponsive. Upon EMS arrival, blood pressure was 90/60, HR 88, temperature 97.2. Per records, patient was not complaining of any symptoms. On arrival, temperature 94.1, HR 66, RR 18, O2 sat 87%, BP 131/111. Initial WBC 19.2. Urinalysis showed more than 182 WBCs and moderate leukocyte esterase. Chest x-ray shows bibasilar infiltrates. Patient was intubated in the emergency room to protect airway. Bains catheter was placed yielding purulent urine. No new issues overnight. Patient remains intubated on mechanical ventilation History Interval history: Patient was seen and evaluated this morning Patient is intubated and on mechanical ventilation Patient open her eyes spontaneously Hospitalist Physical - Physical exam Narrative exam: Continue intubated and on mechanical ventilation. The patient appeared well nourished and normally developed. Vital signs as documented. Head exam is unremarkable. No scleral icterus . Neck is without jugular venous distension, thyromegaly, or carotid bruits. Lungs are clear to auscultation. Cardiac exam reveals regular rate and Rhythm. Abdominal exam reveals normal bowel sounds, nontender, no organomegaly. Extremities are nonedematous and both femoral and pedal pulses are normal. [employer]: Patient open his eyes spontaneously. - Constitutional Vitals: Temp Pulse Resp BP Pulse Ox 98.4 F 79 12 148/50 97 04/15/20 02:52 04/15/20 08:01 04/15/20 08:01 04/15/20 08:01 04/15/20 08:01 General appearance: Present: severe distress, other (Intubated on mechanical ventilation) HEART Score - HEART Score Troponin: Troponin T 0.224 ng/mL (0.00-0.029) H* 04/06/20 14:30 Results - Labs CBC & Chem 7: 04/12/20 08:14 04/13/20 09:09 Labs: Laboratory Last Values WBC 28.0 K/mm3 (4.5-11.0) H 04/12/20 08:14 RBC 3.29 M/mm3 (3.65-5.03) L 04/12/20 08:14 Hgb 9.5 gm/dl (10.1-14.3) L 04/12/20 08:14 Hct 29.1 % (30.3-42.9) L 04/12/20 08:14 MCV 88 fl (79-97) 04/12/20 08:14 MCH 29 pg (28-32) 04/12/20 08:14 MCHC 33 % (30-34) 04/12/20 08:14 RDW 16.9 % (13.2-15.2) H 04/12/20 08:14 Plt Count 347 K/mm3 (140-440) 04/12/20 08:14 Add Manual Diff Complete 04/12/20 08:14 Total Counted 100 04/12/20 08:14 Seg Neuts % (Manual) 88.0 % (40.0-70.0) H 04/12/20 08:14 Band Neutrophils % 0 % 04/12/20 08:14 Lymphocytes % (Manual) 7.0 % (13.4-35.0) L 04/12/20 08:14 Reactive Lymphs % (Man) 0 % 04/12/20 08:14 Monocytes % (Manual) 2.0 % (0.0-7.3) 04/12/20 08:14 Eosinophils % (Manual) 2.0 % (0.0-4.3) 04/12/20 08:14 Basophils % (Manual) 0 % (0.0-1.8) 04/12/20 08:14 Metamyelocytes % 0 % 04/12/20 08:14 Myelocytes % 1.0 % 04/12/20 08:14 Promyelocytes % 0 % 04/12/20 08:14 Blast Cells % 0 % 04/12/20 08:14 Nucleated RBC % Not Reportable 04/12/20 08:14 Seg Neutrophils # Man 24.6 K/mm3 (1.8-7.7) H 04/12/20 08:14 Band Neutrophils # 0.0 K/mm3 04/12/20 08:14 Lymphocytes # (Manual) 2.0 K/mm3 (1.2-5.4) 04/12/20 08:14 Abs React Lymphs (Man) 0.0 K/mm3 04/12/20 08:14 Monocytes # (Manual) 0.6 K/mm3 (0.0-0.8) 04/12/20 08:14 Eosinophils # (Manual) 0.6 K/mm3 (0.0-0.4) H 04/12/20 08:14 Basophils # (Manual) 0.0 K/mm3 (0.0-0.1) 04/12/20 08:14 Metamyelocytes # 0.0 K/mm3 04/12/20 08:14 Myelocytes # 0.3 K/mm3 04/12/20 08:14 Promyelocytes # 0.0 K/mm3 04/12/20 08:14 Blast Cells # 0.0 K/mm3 04/12/20 08:14 WBC Morphology Not Reportable 04/12/20 08:14 Hypersegmented Neuts Not Reportable 04/12/20 08:14 Hyposegmented Neuts Not Reportable 04/12/20 08:14 Hypogranular Neuts Not Reportable 04/12/20 08:14 Smudge Cells Not Reportable 04/12/20 08:14 Toxic Granulation Not Reportable 04/12/20 08:14 Toxic Vacuolation Not Reportable 04/12/20 08:14 Dohle Bodies Not Reportable 04/12/20 08:14 Pelger-Huet Anomaly Not Reportable 04/12/20 08:14 Stephanie Rods Not Reportable 04/12/20 08:14 Platelet Estimate Consistent w auto 04/12/20 08:14 Clumped Platelets Not Reportable 04/12/20 08:14 Plt Clumps, EDTA Not Reportable 04/12/20 08:14 Large Platelets Not Reportable 04/12/20 08:14 Giant Platelets Not Reportable 04/12/20 08:14 Platelet Satelliting Not Reportable 04/12/20 08:14 Plt Morphology Comment Not Reportable 04/12/20 08:14 RBC Morphology Not Reportable 04/12/20 08:14 Dimorphic RBCs Not Reportable 04/12/20 08:14 Polychromasia Rare 04/12/20 08:14 Hypochromasia Few 04/12/20 08:14 Poikilocytosis Not Reportable 04/12/20 08:14 Anisocytosis 1+ 04/12/20 08:14 Microcytosis Not Reportable 04/12/20 08:14 Macrocytosis Not Reportable 04/12/20 08:14 Spherocytes Not Reportable 04/12/20 08:14 Pappenheimer Bodies Not Reportable 04/12/20 08:14 Sickle Cells Not Reportable 04/12/20 08:14 Target Cells Not Reportable 04/12/20 08:14 Tear Drop Cells Not Reportable 04/12/20 08:14 Ovalocytes Not Reportable 04/12/20 08:14 Stomatocytes Few 04/12/20 08:14 Helmet Cells Not Reportable 04/12/20 08:14 [place] Bodies Not Reportable 04/12/20 08:14 [place] Rings Not Reportable 04/12/20 08:14 [place] Cells Not Reportable 04/12/20 08:14 Bite Cells Not Reportable 04/12/20 08:14 Crenated Cell Not Reportable 04/12/20 08:14 Elliptocytes Not Reportable 04/12/20 08:14 Acanthocytes (Spur) Not Reportable 04/12/20 08:14 Rouleaux Not Reportable 04/12/20 08:14 Hemoglobin C Crystals Not Reportable 04/12/20 08:14 Schistocytes Not Reportable 04/12/20 08:14 Malaria parasites Not Reportable 04/12/20 08:14 Lc Bodies Not Reportable 04/12/20 08:14 Hem Pathologist Commnt No 04/12/20 08:14 PT 13.8 Sec. (12.2-14.9) 04/06/20 14:30 INR 1.04 (0.87-1.13) 04/06/20 14:30 APTT 28.1 Sec. (24.2-36.6) 04/06/20 14:30 D-Dimer 1063.66 ng/mlDDU (0-234) H 04/07/20 09:34 ABG pH 7.383 (7.320-7.450) 04/13/20 03:40 POC ABG pCO2 42.4 mmHg (32.0-48.0) 04/13/20 03:40 ABG pCO2 54.0 mm Hg 04/11/20 03:44 POC ABG pO2 95.7 mmHg (83-108) 04/13/20 03:40 ABG pO2 73.4 mm Hg (80.0-90.0) L 04/11/20 03:44 POC ABG HCO3 24.7 04/13/20 03:40 ABG HCO3 26.7 mmol/L (20.0-26.0) H 04/11/20 03:44 ABG O2 Saturation 95.0 % (95.0-99.0) 04/11/20 03:44 ABG O2 Content 14.4 (0.0-44) 04/11/20 03:44 POC ABG Base Excess -0.4 04/13/20 03:40 ABG Base Excess -0.1 mmol/L (-2.0-3.0) 04/11/20 03:44 ABG Hemoglobin 9.4 (12.0-17.5) L 04/13/20 03:40 ABG Carboxyhemoglobin 1.6 % (0.0-5.0) 04/11/20 03:44 ABG Methemoglobin 0.7 % (0.0-1.5) 04/11/20 03:44 ABG Sodium 133.6 mmol/L (136.0-145.0) L 04/13/20 03:40 ABG Potassium 3.8 mmol/L (3.40-4.50) 04/13/20 03:40 ABG Chloride 102.0 mmol/L (98-107) 04/13/20 03:40 ABG Glucose 172 mg/dL (65-95) H 04/13/20 03:40 Oxyhemoglobin 92.8 % (95.0-99.0) L 04/11/20 03:44 FiO2 30 04/13/20 03:40 Sodium 138 mmol/L (137-145) 04/13/20 09:09 Potassium 4.0 mmol/L (3.6-5.0) 04/13/20 09:09 Chloride 99.2 mmol/L (98-107) 04/13/20 09:09 Carbon Dioxide 31 mmol/L (22-30) H 04/13/20 09:09 Anion Gap 12 mmol/L 04/13/20 09:09 BUN 43 mg/dL (7-17) H 04/13/20 09:09 Creatinine 4.9 mg/dL (0.6-1.2) H 04/13/20 09:09 Estimated GFR 9 ml/min 04/13/20 09:09 BUN/Creatinine Ratio 9 % 04/13/20 09:09 Glucose 164 mg/dL (65-100) H 04/13/20 09:09 POC Glucose 141 mg/dL (70-105) H 04/15/20 05:09 Lactic Acid 0.90 mmol/L (0.7-2.0) 04/13/20 19:10 Calcium 8.8 mg/dL (8.4-10.2) 04/13/20 09:09 Magnesium 2.50 mg/dL (1.7-2.3) H 04/06/20 14:30 Ferritin 743.0 ng/mL (10.0-200.0) H 04/07/20 09:34 Total Bilirubin 0.30 mg/dL (0.1-1.2) 04/06/20 14:30 AST 39 units/L (5-40) 04/06/20 14:30 ALT 21 units/L (7-56) 04/06/20 14:30 Alkaline Phosphatase 738 units/L (35-129) H 04/06/20 14:30 Ammonia 43.0 umol/L (25-60) 04/06/20 14:30 Lactate Dehydrogenase 195 units/L (91-180) H 04/07/20 09:34 Total Creatine Kinase 23 units/L (30-135) L 04/06/20 14:30 Total Creatine Kinase 24 units/L (30-135) L 04/06/20 14:30 Troponin T 0.224 ng/mL (0.00-0.029) H* 04/06/20 14:30 C-Reactive Protein 7.50 mg/dL (0.00-1.30) H 04/07/20 09:34 Total Protein 8.1 g/dL (6.3-8.2) 04/06/20 14:30 Albumin 3.1 g/dL (3.9-5) L 04/06/20 14:30 Albumin/Globulin Ratio 0.6 % 04/06/20 14:30 Triglycerides 342 mg/dL (2-149) H 04/06/20 14:30 Cholesterol 223 mg/dL (50-199) H 04/06/20 14:30 LDL Cholesterol Direct 123 mg/dL (50-130) 04/06/20 14:30 HDL Cholesterol 35 mg/dL (40-59) L 04/06/20 14:30 Cholesterol/HDL Ratio 6.37 % 04/06/20 14:30 Procalcitonin 1.59 ng/mL (<0.15) 04/13/20 19:10 TSH 1.320 mlU/mL (0.270-4.200) 04/06/20 14:30 HCG, Qual Negative (Negative) 04/06/20 14:30 Arterial Blood Glucose 172 mg/dL (65-95) H 04/13/20 03:40 Arterial Blood Ionized Calcium 4.8 mg/dL (4.6-5.3) 04/13/20 03:40 Urine Color Yellow (Yellow) 04/06/20 13:34 Urine Turbidity Turbid (Clear) 04/06/20 13:34 Urine pH 7.0 (5.0-7.0) 04/06/20 13:34 Ur Specific [place] 1.017 (1.003-1.030) 04/06/20 13:34 Urine Protein 100 mg/dl mg/dL (Negative) 04/06/20 13:34 Urine Glucose (UA) 50 mg/dL (Negative) 04/06/20 13:34 Urine Ketones Tr mg/dL (Negative) 04/06/20 13:34 Urine Blood Sm (Negative) 04/06/20 13:34 Urine Nitrite Neg (Negative) 04/06/20 13:34 Urine Bilirubin Neg (Negative) 04/06/20 13:34 Urine Urobilinogen < 2.0 mg/dL (<2.0) 04/06/20 13:34 Ur Leukocyte Esterase Mod (Negative) 04/06/20 13:34 Urine WBC (Auto) > 182.0 /HPF (0.0-6.0) H 04/06/20 13:34 Urine RBC (Auto) 49.0 /HPF (0.0-6.0) 04/06/20 13:34 U Epithel Cells (Auto) 6.0 /HPF (0-13.0) 04/06/20 13:34 Urine Bacteria (Auto) 2+ /HPF (Negative) 04/06/20 13:34 Urine WBC Clumps 3+ /HPF 04/06/20 13:34 Urine Mucus 3+ /HPF 04/06/20 13:34 Salicylates < 0.3 mg/dL (2.8-20.0) L 04/06/20 14:30 Acetaminophen 5.0 ug/mL (10.0-30.0) L 04/06/20 14:30 Plasma/Serum Alcohol < 0.01 % (0-0.07) 04/06/20 14:30 Coronavirus (PCR) Negative (Negative) 04/07/20 Unknown Hepatitis A IgM Ab Non-reactive (NonReactive) 04/07/20 16:38 Hep Bs Antigen Non-reactive (Negative) 04/07/20 16:38 Hep B Core IgM Ab Non-reactive (NonReactive) 04/07/20 16:38 Hepatitis C Antibody Reactive (NonReactive) A 04/07/20 16:38 Blood Type O POSITIVE 04/06/20 14:30 Antibody Screen Negative 04/06/20 14:30 Bains/IV: Voiding Method Indwelling Catheter IV Catheter Type [Right VAS Cath Subclavian] IV Catheter Type [Left INT / Saline Lock Antecubital] IV Catheter Type [Right INT / Saline Lock Forearm] Active Medications - Current Medications Current Medications: Generic Name Dose Route Start Last Admin Trade Name Freq PRN Reason Stop Dose Admin Acetaminophen 650 mg 04/06/20 16:39 Tylenol PO Q6H PRN Pain, Mild (1-3) Lipase/Protease/Amylase 1 each 04/07/20 10:[address] 10,500 Unit FEEDTUBE PRN PRN For Clogged Feeding Tube Carvedilol 6.25 mg 04/13/20 22:00 04/14/20 22:12 Coreg PO 6.25 mg BID NOEL Administration Dextrose 50 ml 04/09/20 16:30 D50w (25gm) Syringe IV Q30MIN PRN Hypoglycemia Protocol Famotidine 20 mg 04/07/20 10:00 04/14/20 09:55 Pepcid PO 20 mg QDAY NOEL Administration Fentanyl 50 mcg 04/06/20 13:34 Sublimaze IV Q10MIN PRN ANALGESIA Heparin Sodium (Porcine) 5,000 unit 04/06/20 22:00 04/14/20 22:12 Heparin SUB-Q 5,000 unit Q12HR NOEL Administration Hydromorphone HCl 0.25 mg 04/06/20 16:39 Dilaudid IV Q4H PRN Pain, Moderate (4-6) Hydrophilic Ointment 1 applic 04/06/20 13:34 Vaseline Lip Therapy TP Q2HR PRN Dry Lips Fentanyl Citrate 2,000 mcg in 100 mls @ 5.505 mls/hr 04/06/20 14:00 04/15/20 03:49 Fentanyl Drip Premix IV 3 mcg/kg/hr TITR NOEL 16.515 mls/hr Administration Protocol 1 MCG/KG/HR Sodium Chloride 250 mls @ 10 mls/hr 04/07/20 10:03 04/09/20 05:38 Nacl 0.9% 250ml IV 10 mls/hr DIRECT PRN Administration FOR ABX Sodium Chloride 100 mls @ 999 mls/hr 04/07/20 17:00 Nacl 0.9% IV SPRING PRN Hypotension Insulin Glargine 10 units 04/09/20 17:00 04/14/20 17:11 Lantus SUB-Q 10 units Q24H NOEL Administration Insulin Human Regular 0 unit 04/09/20 18:00 04/15/20 05:33 Humulin R SUB-Q Not Given Q6H [facility] Protocol Labetalol HCl 10 mg 04/08/20 17:17 04/12/20 12:53 Labetalol IV 10 mg Q4H PRN Administration Blood Pressure Multi-Ingred Cream/Lotion/Oil/Oint 1 applic 04/06/20 13:34 Artificial Tears Ophth Oint OU Q4HR PRN Dry Eye(s) Simple Syrup 15 ml 04/07/20 10:23 Simple Syrup FEEDTUBE PRN PRN Hypoglycemia Simple Syrup 30 ml 04/07/20 10:23 Simple Syrup FEEDTUBE PRN PRN Hypoglycemia Sodium Bicarbonate 325 mg 04/07/20 10:23 Sodium Bicarbonate FEEDTUBE PRN PRN For Clogged Feeding Tube Sodium Chloride 10 ml 04/06/20 22:00 04/15/20 00:44 Sodium Chloride Flush Syringe 10 Ml IV Not Given BID NOEL Sodium Chloride 10 ml 04/06/20 16:32 Sodium Chloride Flush Syringe 10 Ml IV PRN PRN LINE FLUSH Nutrition/Malnutrition Assess - Dietary Evaluation Nutrition/Malnutrition Findings: Nutrition Notes Start: 04/07/20 08:19 Freq: Status: Active Protocol: Document 04/13/20 14:07 AL (Rec: 04/13/20 14:11 AL [id number]) Co-Sign 04/13/20 14:07 LP Nutrition Notes Initial or Follow up Reassessment Current Diagnosis CKD (stage V CKD),Diabetes, Hypertension,Stroke Other Pertinent Diagnosis on HD, bilateral BKA, AMS Current Diet Nepro 1.8 at 45 mL/hr (goal rate) Labs/Tests BUN 43 Cr 4.9 POC BG 155 Pertinent Medications Humulin Fentanyl KCl 40 mEq (04/12) Height 5 ft 5 in Weight 110.1 kg [place] Body Weight (kg) 56.81 BMI 40.4 Weight Status Morbidly Obese Subjective/Other Information F/U for TF tolerance. Patient is tolerating TF well at goal rate. Percent of energy/protein needs met: 100%/61% Burn Absent Trauma Absent GI Symptoms None Current % PO Negligible Minimum of two criteria No physical signs of malnutrition #1 Nutrition Diagnosis Inadequate oral intake Diagnosis Progress(for reassessment Continues documentation) Is patient on ventilator? Yes Is Patient Ambulatory and/or Out of Bed No REE-([facility]-confined to bed) 2063.820 Kcal/Kg value to use for calculation 16 Approximate Energy Requirements Using 1762 kcal/Kg Calculation Used for Recommendations Kcal/kg Additional Notes Protein Needs: up to 142 g (up to 2.5 g/kg IBW) Fluid Needs: 1 mL/kcal Nutrition Intervention Change Diet Order: Continue TF Nutrition Support: Nepro 1.8 at 45 mL/hr (goal rate) Flush 200 mL q4h Kcal 1,944 Protein (gm) 87 Fluid (mL) 785 Goal #1 Meet estimated energy and protein needs as best as possible via TF Anticipated Discharge Needs: Unable to determine at this time Follow-Up By: 04/19/20 Additional Comments F/U for TF tolerance
[2020-04-15] MEDS: FAMOTIDINE 20 MG TAB PO SCH (09:42)
[2020-04-15] MEDS: carvediloL 6.25 MG TAB PO SCH ×2 (09:42→22:07)
[2020-04-15] MEDS: HEPARIN 5,000 UNIT/1 ML VIAL SUB-Q SCH ×2 (09:42→22:07)
--- NOTE | 2020-04-15 12:16 | Progress Note ---
Assessment and Plan Acute hypoxemic respiratory failure Severe sepsis: Present on admission with hypothermia, leukocytosis, altered mental status, likely due to bilateral pneumonia, bacteremia and UTI. Bilateral pneumonia: Aspiration pneumonia/HAP. Recent COVID infection Jarrett Morales in January 2020 requiring intubation Acute toxic-metabolic encephalopathy Coag negative staph bacteremia: 05/29 bottles UTI End-stage renal disease on hemodialysis Extensive Candidal intertrigo in groin and vagina Chronic leukocytosis Chronic Hepatitis C -Place on SBT post HD and monitor closely -Discontinue Bains catheter -Monitor temperature curve and WCC, monitor off antibiotics -CXR, ABG as clinically indicated -Continue to monitor hemodynamics closely - continue to wean supplemental oxygen for target O2 sats > 90% - VAP bundle addressed - continue lung protective strategies - continue bronchodilators with pulmonary hygiene per RT - wean per pulmonary driven protocols otherwise - continue accuchecks with glycemic control per SSI (While critically ill target blood glucose of 140-180 mg/dL; avoid hypoglycemia) - continue fentanyl for sedation / analgesia - sedation prn for target RASS 0 to -1 - avoid nephrotoxins, renally dose all medications - continue to avoid benzodiazepines, reduce the possibility of delirium - prn analgesia per CPOT score - Maintenance of sleep-wake cycle, avoid delirium - continue enteral nutritional support at goal rate as tolerated - Stress ulcer and VTE prophylaxis (Heparin, Famotidine) - PT/OT/ROM exercises - continue mobility protocols for pressure ulcer prophylaxis - Monitor hemodynamics closely - continue other care per attending / other consultants - discharge planning ongoing concurrently CONDITION: CRITICAL PROGNOSIS: GUARDED CODE STATUS: FULL CODE The high probability of a clinically significant, sudden or life-threatening deterioration of the [respiratory, cardiovascular, renal & neurologic] system(s) required my full and direct attention, intervention and personal management. The aggregate critical care time was [32] minutes without overlap. Time includes spent on; [x] Data Review and interpretation [x] Patient assessment and monitoring of vital signs Subjective Date of service: 04/15/20 Principal diagnosis: Ac on ch hypoxemic and hypercapnic resp failure; PUI COVID-19 infxn; AMS Interval history: Patient is seen today for: Acute on chronic hypoxemic and hypercapnic resp failure; PUI Coronavirus-19 infection; Acute encephalopathy; ESRD; Morbid obesity; DM II; AE-COPD Seen and examined at bedside; 24hour events reviewed; nursing and respiratory care staff consulted; no adverse overnight events reported to me; resting peacefully in bed; remains on MVS; awake and alert, on HD. PSV yesterday but w ith episodes of apnea during the trail. Frequent soft stool, Still has a Bains catheter in with minimal urine output. No fevers, normotensive Objective Vital Signs - 12hr 04/15/20 04/15/20 04/15/20 01:00 02:00 02:52 Temperature 98.4 F Pulse Rate 87 93 H Pulse Rate [ From Monitor] Respiratory 12 13 Rate Blood Pressure 159/46 173/44 O2 Sat by Pulse 97 99 Oximetry O2 Sat by Pulse Oximetry [ Anterior Bilateral Throughout] 04/15/20 04/15/20 04/15/20 03:00 03:11 04:00 Temperature Pulse Rate 81 78 77 Pulse Rate [ 77 From Monitor] Respiratory 9 L 12 Rate Blood Pressure 174/57 174/57 O2 Sat by Pulse 98 99 99 Oximetry O2 Sat by Pulse Oximetry [ Anterior Bilateral Throughout] 04/15/20 04/15/20 04/15/20 04:01 05:01 06:00 Temperature Pulse Rate 77 85 88 Pulse Rate [ From Monitor] Respiratory 11 L 11 L 17 Rate Blood Pressure 143/41 162/46 149/59 O2 Sat by Pulse 99 99 97 Oximetry O2 Sat by Pulse Oximetry [ Anterior Bilateral Throughout] 04/15/20 04/15/20 04/15/20 07:01 07:20 08:00 Temperature 98.8 F Pulse Rate 76 85 85 Pulse Rate [ 85 From Monitor] Respiratory 12 12 Rate Blood Pressure 116/36 116/36 O2 Sat by Pulse 97 100 98 Oximetry O2 Sat by Pulse Oximetry [ Anterior Bilateral Throughout] 04/15/20 04/15/20 04/15/20 08:01 09:00 09:42 Temperature Pulse Rate 79 85 84 Pulse Rate [ From Monitor] Respiratory 12 12 Rate Blood Pressure 148/50 141/51 141/51 O2 Sat by Pulse 97 97 Oximetry O2 Sat by Pulse Oximetry [ Anterior Bilateral Throughout] 04/15/20 04/15/20 04/15/20 10:01 10:41 10:47 Temperature 98.9 F Pulse Rate 86 85 85 Pulse Rate [ From Monitor] Respiratory 13 11 L Rate Blood Pressure 150/50 135/45 168/60 O2 Sat by Pulse 98 Oximetry O2 Sat by Pulse 98 Oximetry [ Anterior Bilateral Throughout] 04/15/20 04/15/20 04/15/20 11:00 11:01 11:13 Temperature Pulse Rate 87 88 83 Pulse Rate [ From Monitor] Respiratory 13 Rate Blood Pressure 150/54 150/54 150/54 O2 Sat by Pulse 98 99 Oximetry O2 Sat by Pulse Oximetry [ Anterior Bilateral Throughout] 04/15/20 04/15/20 04/15/20 11:15 11:30 11:45 Temperature Pulse Rate 83 82 85 Pulse Rate [ From Monitor] Respiratory Rate Blood Pressure 145/53 165/51 171/61 O2 Sat by Pulse Oximetry O2 Sat by Pulse Oximetry [ Anterior Bilateral Throughout] 04/15/20 12:00 Temperature Pulse Rate 86 Pulse Rate [ From Monitor] Respiratory Rate Blood Pressure 146/48 O2 Sat by Pulse Oximetry O2 Sat by Pulse Oximetry [ Anterior Bilateral Throughout] Constitutional: alert, appears uncomfortable, other (middle aged obese female with mildly increased respiratory effort at rest) Eyes: non-icteric ENT: oropharynx moist, other (ETT 23 cm PARRISH) Neck: supple, no lymphadenopathy, no JVD Effort: normal Ascultation: Bilateral: diminished breath sounds, rhonchi Percussion: Bilateral: not dull Cardiovascular: regular rate and rhythm, other (S1,S2) Gastrointestinal: normoactive bowel sounds, soft, non-tender, non-distended (protuberant), other (Bains catheter) Integumentary: erythema (right BKA stump) Extremities: no cyanosis, no ischemia or petechiae, other (bilateral BKAs ) Neurologic: non-focal exam (grossly), pupils equal and round, unable to assess Psychiatric: other (unable to assess re: AMS) CBC and BMP: 04/12/20 08:14 04/13/20 09:09 ABG, PT/INR, D-dimer: ABG ABG pH 7.383 (7.320-7.450) 04/13/20 03:40 POC ABG pCO2 42.4 mmHg (32.0-48.0) 04/13/20 03:40 ABG pCO2 54.0 mm Hg 04/11/20 03:44 POC ABG pO2 95.7 mmHg (83-108) 04/13/20 03:40 ABG pO2 73.4 mm Hg (80.0-90.0) L 04/11/20 03:44 POC ABG HCO3 24.7 04/13/20 03:40 ABG O2 Saturation 95.0 % (95.0-99.0) 04/11/20 03:44 PT/INR, D-dimer PT 13.8 Sec. (12.2-14.9) 04/06/20 14:30 INR 1.04 (0.87-1.13) 04/06/20 14:30 D-Dimer 1063.66 ng/mlDDU (0-234) H 04/07/20 09:34 Abnormal lab findings: Abnormal Labs 04/06/20 04/06/20 04/06/20 13:34 14:30 14:30 WBC 19.2 H RBC Hgb Hct RDW 17.8 H Seg Neuts % (Manual) 90.0 H Lymphocytes % (Manual) 4.0 L Basophils % (Manual) Seg Neutrophils # Man 17.3 H Lymphocytes # (Manual) 0.8 L Monocytes # (Manual) Eosinophils # (Manual) Basophils # (Manual) D-Dimer ABG pH POC ABG pCO2 POC ABG pO2 ABG pO2 ABG HCO3 ABG Base Excess ABG Hemoglobin ABG Sodium ABG Chloride ABG Glucose Oxyhemoglobin Sodium Potassium 5.2 H Chloride Carbon Dioxide 17 L BUN 53 H Creatinine 7.8 H Glucose 144 H POC Glucose Calcium Magnesium Ferritin Alkaline Phosphatase 738 H Lactate Dehydrogenase Total Creatine Kinase 23 L Troponin T 0.224 H* C-Reactive Protein Albumin 3.1 L Triglycerides 342 H Cholesterol 223 H HDL Cholesterol 35 L Arterial Blood Glucose Arterial Blood Ionized Calcium Urine WBC (Auto) > 182.0 H Salicylates Acetaminophen Hepatitis C Antibody 04/06/20 04/06/20 04/06/20 14:30 14:30 14:30 WBC RBC Hgb Hct RDW Seg Neuts % (Manual) Lymphocytes % (Manual) Basophils % (Manual) Seg Neutrophils # Man Lymphocytes # (Manual) Monocytes # (Manual) Eosinophils # (Manual) Basophils # (Manual) D-Dimer ABG pH POC ABG pCO2 POC ABG pO2 ABG pO2 ABG HCO3 ABG Base Excess ABG Hemoglobin ABG Sodium ABG Chloride ABG Glucose Oxyhemoglobin Sodium Potassium Chloride Carbon Dioxide BUN Creatinine Glucose POC Glucose Calcium Magnesium 2.50 H Ferritin Alkaline Phosphatase Lactate Dehydrogenase Total Creatine Kinase 24 L Troponin T C-Reactive Protein Albumin Triglycerides Cholesterol HDL Cholesterol Arterial Blood Glucose Arterial Blood Ionized Calcium Urine WBC (Auto) Salicylates < 0.3 L Acetaminophen 5.0 L Hepatitis C Antibody 04/06/20 04/06/20 04/07/20 14:39 20:00 00:48 WBC RBC Hgb Hct RDW Seg Neuts % (Manual) Lymphocytes % (Manual) Basophils % (Manual) Seg Neutrophils # Man Lymphocytes # (Manual) Monocytes # (Manual) Eosinophils # (Manual) Basophils # (Manual) D-Dimer ABG pH 7.281 L 7.306 L POC ABG pCO2 POC ABG pO2 78.0 L ABG pO2 133.8 H ABG HCO3 18.3 L ABG Base Excess -7.8 L ABG Hemoglobin 10.8 L 10.8 L ABG Sodium ABG Chloride 108.0 H ABG Glucose Oxyhemoglobin Sodium Potassium Chloride Carbon Dioxide BUN Creatinine Glucose POC Glucose 69 L Calcium Magnesium Ferritin Alkaline Phosphatase Lactate Dehydrogenase Total Creatine Kinase Troponin T C-Reactive Protein Albumin Triglycerides Cholesterol HDL Cholesterol Arterial Blood Glucose Arterial Blood Ionized Calcium Urine WBC (Auto) Salicylates Acetaminophen Hepatitis C Antibody 04/07/20 04/07/20 04/07/20 09:34 09:34 09:34 WBC RBC Hgb Hct RDW Seg Neuts % (Manual) Lymphocytes % (Manual) Basophils % (Manual) Seg Neutrophils # Man Lymphocytes # (Manual) Monocytes # (Manual) Eosinophils # (Manual) Basophils # (Manual) D-Dimer 1063.66 H ABG pH POC ABG pCO2 POC ABG pO2 ABG pO2 ABG HCO3 ABG Base Excess ABG Hemoglobin ABG Sodium ABG Chloride ABG Glucose Oxyhemoglobin Sodium Potassium Chloride Carbon Dioxide BUN Creatinine Glucose POC Glucose Calcium Magnesium Ferritin 743.0 H Alkaline Phosphatase Lactate Dehydrogenase 195 H Total Creatine Kinase Troponin T C-Reactive Protein 7.50 H Albumin Triglycerides Cholesterol HDL Cholesterol Arterial Blood Glucose Arterial Blood Ionized Calcium Urine WBC (Auto) Salicylates Acetaminophen Hepatitis C Antibody 04/07/20 04/07/20 04/07/20 10:01 16:38 23:51 WBC RBC Hgb Hct RDW Seg Neuts % (Manual) Lymphocytes % (Manual) Basophils % (Manual) Seg Neutrophils # Man Lymphocytes # (Manual) Monocytes # (Manual) Eosinophils # (Manual) Basophils # (Manual) D-Dimer ABG pH POC ABG pCO2 POC ABG pO2 79.8 L ABG pO2 ABG HCO3 ABG Base Excess ABG Hemoglobin 10.3 L ABG Sodium ABG Chloride 109.0 H ABG Glucose Oxyhemoglobin Sodium Potassium Chloride Carbon Dioxide BUN Creatinine Glucose POC Glucose 117 H Calcium Magnesium Ferritin Alkaline Phosphatase Lactate Dehydrogenase Total Creatine Kinase Troponin T C-Reactive Protein Albumin Triglycerides Cholesterol HDL Cholesterol Arterial Blood Glucose Arterial Blood Ionized Calcium 4.5 L Urine WBC (Auto) Salicylates Acetaminophen Hepatitis C Antibody Reactive A 04/08/20 04/08/20 04/08/20 04:58 12:48 17:03 WBC RBC Hgb Hct RDW Seg Neuts % (Manual) Lymphocytes % (Manual) Basophils % (Manual) Seg Neutrophils # Man Lymphocytes # (Manual) Monocytes # (Manual) Eosinophils # (Manual) Basophils # (Manual) D-Dimer ABG pH POC ABG pCO2 POC ABG pO2 ABG pO2 ABG HCO3 ABG Base Excess ABG Hemoglobin ABG Sodium ABG Chloride ABG Glucose Oxyhemoglobin Sodium Potassium Chloride Carbon Dioxide BUN Creatinine Glucose POC Glucose 129 H 155 H 201 H Calcium Magnesium Ferritin Alkaline Phosphatase Lactate Dehydrogenase Total Creatine Kinase Troponin T C-Reactive Protein Albumin Triglycerides Cholesterol HDL Cholesterol Arterial Blood Glucose Arterial Blood Ionized Calcium Urine WBC (Auto) Salicylates Acetaminophen Hepatitis C Antibody 04/08/20 04/08/20 04/09/20 23:49 Unknown 05:31 WBC RBC Hgb Hct RDW Seg Neuts % (Manual) Lymphocytes % (Manual) Basophils % (Manual) Seg Neutrophils # Man Lymphocytes # (Manual) Monocytes # (Manual) Eosinophils # (Manual) Basophils # (Manual) D-Dimer ABG pH 7.349 L POC ABG pCO2 POC ABG pO2 ABG pO2 117.3 H ABG HCO3 ABG Base Excess ABG Hemoglobin 7.4 L ABG Sodium ABG Chloride ABG Glucose Oxyhemoglobin Sodium Potassium Chloride Carbon Dioxide BUN Creatinine Glucose POC Glucose 178 H 248 H Calcium Magnesium Ferritin Alkaline Phosphatase Lactate Dehydrogenase Total Creatine Kinase Troponin T C-Reactive Protein Albumin Triglycerides Cholesterol HDL Cholesterol Arterial Blood Glucose Arterial Blood Ionized Calcium Urine WBC (Auto) Salicylates Acetaminophen Hepatitis C Antibody 04/09/20 04/09/20 04/09/20 11:39 17:35 Unknown WBC RBC Hgb Hct RDW Seg Neuts % (Manual) Lymphocytes % (Manual) Basophils % (Manual) Seg Neutrophils # Man Lymphocytes # (Manual) Monocytes # (Manual) Eosinophils # (Manual) Basophils # (Manual) D-Dimer ABG pH POC ABG pCO2 51.6 H POC ABG pO2 ABG pO2 ABG HCO3 ABG Base Excess ABG Hemoglobin 11.4 L ABG Sodium 130.1 L ABG Chloride ABG Glucose 249 H Oxyhemoglobin Sodium Potassium Chloride Carbon Dioxide BUN Creatinine Glucose POC Glucose 319 H 254 H Calcium Magnesium Ferritin Alkaline Phosphatase Lactate Dehydrogenase Total Creatine Kinase Troponin T C-Reactive Protein Albumin Triglycerides Cholesterol HDL Cholesterol Arterial Blood Glucose 249 H Arterial Blood Ionized Calcium 4.1 L Urine WBC (Auto) Salicylates Acetaminophen Hepatitis C Antibody 04/10/20 04/10/20 04/10/20 00:00 03:15 05:49 WBC RBC Hgb Hct RDW Seg Neuts % (Manual) Lymphocytes % (Manual) Basophils % (Manual) Seg Neutrophils # Man Lymphocytes # (Manual) Monocytes # (Manual) Eosinophils # (Manual) Basophils # (Manual) D-Dimer ABG pH POC ABG pCO2 48.2 H POC ABG pO2 ABG pO2 ABG HCO3 ABG Base Excess ABG Hemoglobin 9.9 L ABG Sodium 135.4 L ABG Chloride ABG Glucose 215 H Oxyhemoglobin Sodium Potassium Chloride Carbon Dioxide BUN Creatinine Glucose POC Glucose 194 H 221 H Calcium Magnesium Ferritin Alkaline Phosphatase Lactate Dehydrogenase Total Creatine Kinase Troponin T C-Reactive Protein Albumin Triglycerides Cholesterol HDL Cholesterol Arterial Blood Glucose 215 H Arterial Blood Ionized Calcium 4.5 L Urine WBC (Auto) Salicylates Acetaminophen Hepatitis C Antibody 04/10/20 04/10/20 04/10/20 08:18 08:18 12:22 WBC 28.9 H RBC 3.38 L Hgb 9.5 L Hct 30.1 L RDW 16.9 H Seg Neuts % (Manual) 87.0 H Lymphocytes % (Manual) 9.0 L Basophils % (Manual) 2.0 H Seg Neutrophils # Man 25.1 H Lymphocytes # (Manual) Monocytes # (Manual) Eosinophils # (Manual) Basophils # (Manual) 0.6 H D-Dimer ABG pH POC ABG pCO2 POC ABG pO2 ABG pO2 ABG HCO3 ABG Base Excess ABG Hemoglobin ABG Sodium ABG Chloride ABG Glucose Oxyhemoglobin Sodium 134 L Potassium 3.5 L D Chloride 94.9 L Carbon Dioxide BUN 38 H Creatinine 5.5 H Glucose 230 H POC Glucose 218 H Calcium Magnesium Ferritin Alkaline Phosphatase Lactate Dehydrogenase Total Creatine Kinase Troponin T C-Reactive Protein Albumin Triglycerides Cholesterol HDL Cholesterol Arterial Blood Glucose Arterial Blood Ionized Calcium Urine WBC (Auto) Salicylates Acetaminophen Hepatitis C Antibody 04/10/20 04/10/20 04/10/20 17:27 18:08 23:29 WBC RBC Hgb Hct RDW Seg Neuts % (Manual) Lymphocytes % (Manual) Basophils % (Manual) Seg Neutrophils # Man Lymphocytes # (Manual) Monocytes # (Manual) Eosinophils # (Manual) Basophils # (Manual) D-Dimer ABG pH POC ABG pCO2 POC ABG pO2 ABG pO2 ABG HCO3 ABG Base Excess ABG Hemoglobin ABG Sodium ABG Chloride ABG Glucose Oxyhemoglobin Sodium Potassium Chloride Carbon Dioxide BUN Creatinine Glucose POC Glucose 218 H 223 H 166 H Calcium Magnesium Ferritin Alkaline Phosphatase Lactate Dehydrogenase Total Creatine Kinase Troponin T C-Reactive Protein Albumin Triglycerides Cholesterol HDL Cholesterol Arterial Blood Glucose Arterial Blood Ionized Calcium Urine WBC (Auto) Salicylates Acetaminophen Hepatitis C Antibody 04/11/20 04/11/20 04/11/20 03:44 05:28 07:39 WBC 26.9 H RBC 3.32 L Hgb 9.4 L Hct 29.5 L RDW 17.2 H Seg Neuts % (Manual) 83.0 H Lymphocytes % (Manual) 10.0 L Basophils % (Manual) Seg Neutrophils # Man 22.3 H Lymphocytes # (Manual) Monocytes # (Manual) 1.1 H Eosinophils # (Manual) 0.5 H Basophils # (Manual) D-Dimer ABG pH 7.313 L POC ABG pCO2 POC ABG pO2 ABG pO2 73.4 L ABG HCO3 26.7 H ABG Base Excess ABG Hemoglobin 11.0 L ABG Sodium ABG Chloride ABG Glucose Oxyhemoglobin 92.8 L Sodium Potassium Chloride Carbon Dioxide BUN Creatinine Glucose POC Glucose 164 H Calcium Magnesium Ferritin Alkaline Phosphatase Lactate Dehydrogenase Total Creatine Kinase Troponin T C-Reactive Protein Albumin Triglycerides Cholesterol HDL Cholesterol Arterial Blood Glucose Arterial Blood Ionized Calcium Urine WBC (Auto) Salicylates Acetaminophen Hepatitis C Antibody 04/11/20 04/11/20 04/11/20 07:39 12:25 19:02 WBC RBC Hgb Hct RDW Seg Neuts % (Manual) Lymphocytes % (Manual) Basophils % (Manual) Seg Neutrophils # Man Lymphocytes # (Manual) Monocytes # (Manual) Eosinophils # (Manual) Basophils # (Manual) D-Dimer ABG pH POC ABG pCO2 POC ABG pO2 ABG pO2 ABG HCO3 ABG Base Excess ABG Hemoglobin ABG Sodium ABG Chloride ABG Glucose Oxyhemoglobin Sodium Potassium Chloride Carbon Dioxide BUN 48 H Creatinine 6.1 H Glucose 122 H POC Glucose 175 H 175 H Calcium 8.3 L Magnesium Ferritin Alkaline Phosphatase Lactate Dehydrogenase Total Creatine Kinase Troponin T C-Reactive Protein Albumin Triglycerides Cholesterol HDL Cholesterol Arterial Blood Glucose Arterial Blood Ionized Calcium Urine WBC (Auto) Salicylates Acetaminophen Hepatitis C Antibody 04/12/20 04/12/20 04/12/20 00:02 05:51 08:14 WBC 28.0 H RBC 3.29 L Hgb 9.5 L Hct 29.1 L RDW 16.9 H Seg Neuts % (Manual) 88.0 H Lymphocytes % (Manual) 7.0 L Basophils % (Manual) Seg Neutrophils # Man 24.6 H Lymphocytes # (Manual) Monocytes # (Manual) Eosinophils # (Manual) 0.6 H Basophils # (Manual) D-Dimer ABG pH POC ABG pCO2 POC ABG pO2 ABG pO2 ABG HCO3 ABG Base Excess ABG Hemoglobin ABG Sodium ABG Chloride ABG Glucose Oxyhemoglobin Sodium Potassium Chloride Carbon Dioxide BUN Creatinine Glucose POC Glucose 146 H 151 H Calcium Magnesium Ferritin Alkaline Phosphatase Lactate Dehydrogenase Total Creatine Kinase Troponin T C-Reactive Protein Albumin Triglycerides Cholesterol HDL Cholesterol Arterial Blood Glucose Arterial Blood Ionized Calcium Urine WBC (Auto) Salicylates Acetaminophen Hepatitis C Antibody 04/12/20 04/12/20 04/12/20 08:14 12:21 17:26 WBC RBC Hgb Hct RDW Seg Neuts % (Manual) Lymphocytes % (Manual) Basophils % (Manual) Seg Neutrophils # Man Lymphocytes # (Manual) Monocytes # (Manual) Eosinophils # (Manual) Basophils # (Manual) D-Dimer ABG pH POC ABG pCO2 POC ABG pO2 ABG pO2 ABG HCO3 ABG Base Excess ABG Hemoglobin ABG Sodium ABG Chloride ABG Glucose Oxyhemoglobin Sodium Potassium 3.3 L Chloride Carbon Dioxide BUN 32 H Creatinine 4.3 H Glucose 188 H POC Glucose 196 H 235 H Calcium Magnesium Ferritin Alkaline Phosphatase Lactate Dehydrogenase Total Creatine Kinase Troponin T C-Reactive Protein Albumin Triglycerides Cholesterol HDL Cholesterol Arterial Blood Glucose Arterial Blood Ionized Calcium Urine WBC (Auto) Salicylates Acetaminophen Hepatitis C Antibody 04/12/20 04/13/20 04/13/20 23:34 03:40 05:33 WBC RBC Hgb Hct RDW Seg Neuts % (Manual) Lymphocytes % (Manual) Basophils % (Manual) Seg Neutrophils # Man Lymphocytes # (Manual) Monocytes # (Manual) Eosinophils # (Manual) Basophils # (Manual) D-Dimer ABG pH POC ABG pCO2 POC ABG pO2 ABG pO2 ABG HCO3 ABG Base Excess ABG Hemoglobin 9.4 L ABG Sodium 133.6 L ABG Chloride ABG Glucose 172 H Oxyhemoglobin Sodium Potassium Chloride Carbon Dioxide BUN Creatinine Glucose POC Glucose 171 H 167 H Calcium Magnesium Ferritin Alkaline Phosphatase Lactate Dehydrogenase Total Creatine Kinase Troponin T C-Reactive Protein Albumin Triglycerides Cholesterol HDL Cholesterol Arterial Blood Glucose 172 H Arterial Blood Ionized Calcium Urine WBC (Auto) Salicylates Acetaminophen Hepatitis C Antibody 04/13/20 04/13/20 04/13/20 07:49 09:09 11:34 WBC RBC Hgb Hct RDW Seg Neuts % (Manual) Lymphocytes % (Manual) Basophils % (Manual) Seg Neutrophils # Man Lymphocytes # (Manual) Monocytes # (Manual) Eosinophils # (Manual) Basophils # (Manual) D-Dimer ABG pH POC ABG pCO2 POC ABG pO2 ABG pO2 ABG HCO3 ABG Base Excess ABG Hemoglobin ABG Sodium ABG Chloride ABG Glucose Oxyhemoglobin Sodium Potassium Chloride Carbon Dioxide 31 H BUN 44 H 43 H Creatinine 5.0 H 4.9 H Glucose 164 H 164 H POC Glucose 155 H Calcium Magnesium Ferritin Alkaline Phosphatase Lactate Dehydrogenase Total Creatine Kinase Troponin T C-Reactive Protein Albumin Triglycerides Cholesterol HDL Cholesterol Arterial Blood Glucose Arterial Blood Ionized Calcium Urine WBC (Auto) Salicylates Acetaminophen Hepatitis C Antibody 04/13/20 04/13/20 04/14/20 17:38 23:40 04:35 WBC RBC Hgb Hct RDW Seg Neuts % (Manual) Lymphocytes % (Manual) Basophils % (Manual) Seg Neutrophils # Man Lymphocytes # (Manual) Monocytes # (Manual) Eosinophils # (Manual) Basophils # (Manual) D-Dimer ABG pH POC ABG pCO2 POC ABG pO2 ABG pO2 ABG HCO3 ABG Base Excess ABG Hemoglobin ABG Sodium ABG Chloride ABG Glucose Oxyhemoglobin Sodium Potassium Chloride Carbon Dioxide BUN Creatinine Glucose POC Glucose 180 H 130 H 121 H Calcium Magnesium Ferritin Alkaline Phosphatase Lactate Dehydrogenase Total Creatine Kinase Troponin T C-Reactive Protein Albumin Triglycerides Cholesterol HDL Cholesterol Arterial Blood Glucose Arterial Blood Ionized Calcium Urine WBC (Auto) Salicylates Acetaminophen Hepatitis C Antibody 04/14/20 04/14/20 04/15/20 12:17 17:06 00:11 WBC RBC Hgb Hct RDW Seg Neuts % (Manual) Lymphocytes % (Manual) Basophils % (Manual) Seg Neutrophils # Man Lymphocytes # (Manual) Monocytes # (Manual) Eosinophils # (Manual) Basophils # (Manual) D-Dimer ABG pH POC ABG pCO2 POC ABG pO2 ABG pO2 ABG HCO3 ABG Base Excess ABG Hemoglobin ABG Sodium ABG Chloride ABG Glucose Oxyhemoglobin Sodium Potassium Chloride Carbon Dioxide BUN Creatinine Glucose POC Glucose 170 H 177 H 156 H Calcium Magnesium Ferritin Alkaline Phosphatase Lactate Dehydrogenase Total Creatine Kinase Troponin T C-Reactive Protein Albumin Triglycerides Cholesterol HDL Cholesterol Arterial Blood Glucose Arterial Blood Ionized Calcium Urine WBC (Auto) Salicylates Acetaminophen Hepatitis C Antibody 04/15/20 04/15/20 05:09 11:45 WBC RBC Hgb Hct RDW Seg Neuts % (Manual) Lymphocytes % (Manual) Basophils % (Manual) Seg Neutrophils # Man Lymphocytes # (Manual) Monocytes # (Manual) Eosinophils # (Manual) Basophils # (Manual) D-Dimer ABG pH POC ABG pCO2 POC ABG pO2 ABG pO2 ABG HCO3 ABG Base Excess ABG Hemoglobin ABG Sodium ABG Chloride ABG Glucose Oxyhemoglobin Sodium Potassium Chloride Carbon Dioxide BUN Creatinine Glucose POC Glucose 141 H 154 H Calcium Magnesium Ferritin Alkaline Phosphatase Lactate Dehydrogenase Total Creatine Kinase Troponin T C-Reactive Protein Albumin Triglycerides Cholesterol HDL Cholesterol Arterial Blood Glucose Arterial Blood Ionized Calcium Urine WBC (Auto) Salicylates Acetaminophen Hepatitis C Antibody Chest x-ray: image reviewed Allied health notes reviewed: RT
[2020-04-15] MEDS: INSULIN GLARGINE 100 UNITS/ML SUB-Q SCH (17:33)
[2020-04-16] MEDS: INSULIN REGULAR, HUMAN 100 UNIT/ML 3ML VIAL SUB-Q SCH ×4 (00:05→17:35)
[2020-04-16] MEDS: fentaNYL DRIP Premix 2,000 MCG/100 ML BAG IV SCH ×2 (03:07→11:15)
[2020-04-16] MEDS: carvediloL 6.25 MG TAB PO SCH ×2 (09:35→21:22)
[2020-04-16] MEDS: FAMOTIDINE 20 MG TAB PO SCH (09:35)
[2020-04-16] MEDS: HEPARIN 5,000 UNIT/1 ML VIAL SUB-Q SCH ×2 (09:35→21:22)
--- NOTE | 2020-04-16 09:37 | Progress Note ---
Assessment and Plan Assessment and plan: Severe sepsis. Present on admission with hypothermia, leukocytosis, altered mental status, likely due to bilateral pneumonia. F/U Blood Cx. Cont. Abx pre ID Bilateral pneumonia. Aspiration pneumonia/HAP Severe UTI. Bains catheter with purulent urine. Acute hypoxemic respiratory failure. Intubated for airway protection, O2 sats down to 87%. Toxic metabolic encephalopathy. Etiology secondary to sepsis End-stage renal disease on hemodialysis Extensive Candidal intertrigo in groin and vagina. Cont. Fluconazole History COVID-19 infection (01/07/2020) 04/08/2020. Patient remains intubated on mechanical ventilation with AC mode ventilation rate 12, tidal volume 450, FiO2 40% and a PEEP of 6. Continue weaning per protocols. Patient with ESRD and continue TTS schedule per nephrology. Patient does have a history of COVID-19 infection(01/07/20) but negative testing April 07. Follow-up blood/urine/sputum culture. Continue antibiotics per ID recommendations. 04/09/2020. Patient not tolerating PSV 12/6 with FiO2 of 30%. Continue hemodialysis per nephrology recommendations. Continue IV antibiotics per ID recommendations. Blood cultures no growth to date. Respiratory therapy reports patient with accelerated hypertension and apneic episodes on PSV ventilation. Await pulmonary recommendations. 04/10/2020. Patient remains on mechanical ventilation AC mode rate 12, tidal volume 450, FiO2 30% and a PEEP of 6. Continue PSV trials per protocols. Continue hemodialysis per nephrology recommendations. Continue anti-infectives of fluconazole and cefepime. Follow-up blood/urine/sputum culture. ID, pulmonary and nephrology following. 04/11/2020; patient remains on mechanical ventilation AC mode rate 12, tidal volume 450, FiO2 of 30 and PEEP of 6. Continue PSV trials per protocols. continue hemodialysis per nephrology. ID changed antibiotics to meropenem. Blood culture grew staph epidermidis likey contaminant. 04/12/2020; patient is intubated, patient open eyes spontaneously. Neurology consulted and continue on replacement treatment. EEG is pending. Recommend MRI. Patient is on meropenem per ID recommendation. Pulmonary is following. Patient is on spontaneous breathing trial 04/13/2020; patient is intubated. Patient's blood pressure was high yesterday, amlodipine and hydralazine was added. Overnight his blood pressure was low and will also BP medications. We will continue to follow. 04/14/2020; patient is intubated and blood pressure is on the low side of normal. Patient is on meropenem 5/5. 04/15/2020; patient is intubated, on spontaneous breathing trial. Pulmonary is following. neurology recommend MRI. 04/16/2020; patient is intubated, on spontaneous breathing trial. Pulmonary is following. Neurology recommend MRI once stable. The high probability of a clinically significant, sudden or life threatening deterioration of the [respiratory] system(s) required my full and direct attention, intervention and personal management. The aggregate critical care time was [33] minutes. This time is in addition to time spent performing reported procedures but includes the following: [x] Data Review and interpretation [x] Patient assessment and monitoring of vital signs [x] Documentation [x] Medication orders and management History Interval history: 49 years old female with history of asthma, hypertension, end-stage renal disease on hemodialysis, diabetes mellitus, bipolar disorder, morbid obesity, CVA, resident of a prison, admitted on 04/06/2020 secondary to be found Unresponsiveness after hemodialysis. Patient is unable to provide history, currently intubated. Patient received hemodialysis and after completion she became unresponsive. Upon EMS arrival, blood pressure was 90/60, HR 88, temperature 97.2. Per records, patient was not complaining of any symptoms. On arrival, temperature 94.1, HR 66, RR 18, O2 sat 87%, BP 131/111. Initial WBC 19.2. Urinalysis showed more than 182 WBCs and moderate leukocyte esterase. Chest x-ray shows bibasilar infiltrates. Patient was intubated in the emergency room to protect airway. Bains catheter was placed yielding purulent urine. No new issues overnight. Patient remains intubated on mechanical ventilation History Interval history: Patient was seen and evaluated this morning Patient is intubated and on mechanical ventilation Patient open her eyes spontaneously Hospitalist Physical - Physical exam Narrative exam: Continue intubated and on mechanical ventilation. The patient appeared well nourished and normally developed. Vital signs as documented. Head exam is unremarkable. No scleral icterus . Neck is without jugular venous distension, thyromegaly, or carotid bruits. Lungs are clear to auscultation. Cardiac exam reveals regular rate and Rhythm. Abdominal exam reveals normal bowel sounds, nontender, no organomegaly. Extremities are nonedematous and both femoral and pedal pulses are normal. 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 - Constitutional Vitals: Temp Pulse Resp BP Pulse Ox 98.5 F 79 11 L 152/38 100 04/16/20 03:51 04/16/20 07:08 04/16/20 06:00 04/16/20 07:08 04/16/20 07:08 General appearance: Present: severe distress, other (Intubated on mechanical ventilation) HEART Score - HEART Score Troponin: Troponin T 0.224 ng/mL (0.00-0.029) H* 04/06/20 14:30 Results - Labs CBC & Chem 7: 04/12/20 08:14 04/13/20 09:09 Labs: Laboratory Last Values WBC 28.0 K/mm3 (4.5-11.0) H 04/12/20 08:14 RBC 3.29 M/mm3 (3.65-5.03) L 04/12/20 08:14 Hgb 9.5 gm/dl (10.1-14.3) L 04/12/20 08:14 Hct 29.1 % (30.3-42.9) L 04/12/20 08:14 MCV 88 fl (79-97) 04/12/20 08:14 MCH 29 pg (28-32) 04/12/20 08:14 MCHC 33 % (30-34) 04/12/20 08:14 RDW 16.9 % (13.2-15.2) H 04/12/20 08:14 Plt Count 347 K/mm3 (140-440) 04/12/20 08:14 Add Manual Diff Complete 04/12/20 08:14 Total Counted 100 04/12/20 08:14 Seg Neuts % (Manual) 88.0 % (40.0-70.0) H 04/12/20 08:14 Band Neutrophils % 0 % 04/12/20 08:14 Lymphocytes % (Manual) 7.0 % (13.4-35.0) L 04/12/20 08:14 Reactive Lymphs % (Man) 0 % 04/12/20 08:14 Monocytes % (Manual) 2.0 % (0.0-7.3) 04/12/20 08:14 Eosinophils % (Manual) 2.0 % (0.0-4.3) 04/12/20 08:14 Basophils % (Manual) 0 % (0.0-1.8) 04/12/20 08:14 Metamyelocytes % 0 % 04/12/20 08:14 Myelocytes % 1.0 % 04/12/20 08:14 Promyelocytes % 0 % 04/12/20 08:14 Blast Cells % 0 % 04/12/20 08:14 Nucleated RBC % Not Reportable 04/12/20 08:14 Seg Neutrophils # Man 24.6 K/mm3 (1.8-7.7) H 04/12/20 08:14 Band Neutrophils # 0.0 K/mm3 04/12/20 08:14 Lymphocytes # (Manual) 2.0 K/mm3 (1.2-5.4) 04/12/20 08:14 Abs React Lymphs (Man) 0.0 K/mm3 04/12/20 08:14 Monocytes # (Manual) 0.6 K/mm3 (0.0-0.8) 04/12/20 08:14 Eosinophils # (Manual) 0.6 K/mm3 (0.0-0.4) H 04/12/20 08:14 Basophils # (Manual) 0.0 K/mm3 (0.0-0.1) 04/12/20 08:14 Metamyelocytes # 0.0 K/mm3 04/12/20 08:14 Myelocytes # 0.3 K/mm3 04/12/20 08:14 Promyelocytes # 0.0 K/mm3 04/12/20 08:14 Blast Cells # 0.0 K/mm3 04/12/20 08:14 WBC Morphology Not Reportable 04/12/20 08:14 Hypersegmented Neuts Not Reportable 04/12/20 08:14 Hyposegmented Neuts Not Reportable 04/12/20 08:14 Hypogranular Neuts Not Reportable 04/12/20 08:14 Smudge Cells Not Reportable 04/12/20 08:14 Toxic Granulation Not Reportable 04/12/20 08:14 Toxic Vacuolation Not Reportable 04/12/20 08:14 Dohle Bodies Not Reportable 04/12/20 08:14 Pelger-Huet Anomaly Not Reportable 04/12/20 08:14 Stephanie Rods Not Reportable 04/12/20 08:14 Platelet Estimate Consistent w auto 04/12/20 08:14 Clumped Platelets Not Reportable 04/12/20 08:14 Plt Clumps, EDTA Not Reportable 04/12/20 08:14 Large Platelets Not Reportable 04/12/20 08:14 Giant Platelets Not Reportable 04/12/20 08:14 Platelet Satelliting Not Reportable 04/12/20 08:14 Plt Morphology Comment Not Reportable 04/12/20 08:14 RBC Morphology Not Reportable 04/12/20 08:14 Dimorphic RBCs Not Reportable 04/12/20 08:14 Polychromasia Rare 04/12/20 08:14 Hypochromasia Few 04/12/20 08:14 Poikilocytosis Not Reportable 04/12/20 08:14 Anisocytosis 1+ 04/12/20 08:14 Microcytosis Not Reportable 04/12/20 08:14 Macrocytosis Not Reportable 04/12/20 08:14 Spherocytes Not Reportable 04/12/20 08:14 Pappenheimer Bodies Not Reportable 04/12/20 08:14 Sickle Cells Not Reportable 04/12/20 08:14 Target Cells Not Reportable 04/12/20 08:14 Tear Drop Cells Not Reportable 04/12/20 08:14 Ovalocytes Not Reportable 04/12/20 08:14 Stomatocytes Few 04/12/20 08:14 Helmet Cells Not Reportable 04/12/20 08:14 [place] Bodies Not Reportable 04/12/20 08:14 [place] Rings Not Reportable 04/12/20 08:14 [place] Cells Not Reportable 04/12/20 08:14 Bite Cells Not Reportable 04/12/20 08:14 Crenated Cell Not Reportable 04/12/20 08:14 Elliptocytes Not Reportable 04/12/20 08:14 Acanthocytes (Spur) Not Reportable 04/12/20 08:14 Rouleaux Not Reportable 04/12/20 08:14 Hemoglobin C Crystals Not Reportable 04/12/20 08:14 Schistocytes Not Reportable 04/12/20 08:14 Malaria parasites Not Reportable 04/12/20 08:14 Lc Bodies Not Reportable 04/12/20 08:14 Hem Pathologist Commnt No 04/12/20 08:14 PT 13.8 Sec. (12.2-14.9) 04/06/20 14:30 INR 1.04 (0.87-1.13) 04/06/20 14:30 APTT 28.1 Sec. (24.2-36.6) 04/06/20 14:30 D-Dimer 1063.66 ng/mlDDU (0-234) H 04/07/20 09:34 ABG pH 7.383 (7.320-7.450) 04/13/20 03:40 POC ABG pCO2 42.4 mmHg (32.0-48.0) 04/13/20 03:40 ABG pCO2 54.0 mm Hg 04/11/20 03:44 POC ABG pO2 95.7 mmHg (83-108) 04/13/20 03:40 ABG pO2 73.4 mm Hg (80.0-90.0) L 04/11/20 03:44 POC ABG HCO3 24.7 04/13/20 03:40 ABG HCO3 26.7 mmol/L (20.0-26.0) H 04/11/20 03:44 ABG O2 Saturation 95.0 % (95.0-99.0) 04/11/20 03:44 ABG O2 Content 14.4 (0.0-44) 04/11/20 03:44 POC ABG Base Excess -0.4 04/13/20 03:40 ABG Base Excess -0.1 mmol/L (-2.0-3.0) 04/11/20 03:44 ABG Hemoglobin 9.4 (12.0-17.5) L 04/13/20 03:40 ABG Carboxyhemoglobin 1.6 % (0.0-5.0) 04/11/20 03:44 ABG Methemoglobin 0.7 % (0.0-1.5) 04/11/20 03:44 ABG Sodium 133.6 mmol/L (136.0-145.0) L 04/13/20 03:40 ABG Potassium 3.8 mmol/L (3.40-4.50) 04/13/20 03:40 ABG Chloride 102.0 mmol/L (98-107) 04/13/20 03:40 ABG Glucose 172 mg/dL (65-95) H 04/13/20 03:40 Oxyhemoglobin 92.8 % (95.0-99.0) L 04/11/20 03:44 FiO2 30 04/13/20 03:40 Sodium 138 mmol/L (137-145) 04/13/20 09:09 Potassium 4.0 mmol/L (3.6-5.0) 04/13/20 09:09 Chloride 99.2 mmol/L (98-107) 04/13/20 09:09 Carbon Dioxide 31 mmol/L (22-30) H 04/13/20 09:09 Anion Gap 12 mmol/L 04/13/20 09:09 BUN 43 mg/dL (7-17) H 04/13/20 09:09 Creatinine 4.9 mg/dL (0.6-1.2) H 04/13/20 09:09 Estimated GFR 9 ml/min 04/13/20 09:09 BUN/Creatinine Ratio 9 % 04/13/20 09:09 Glucose 164 mg/dL (65-100) H 04/13/20 09:09 POC Glucose 115 mg/dL (70-105) H 04/16/20 05:11 Lactic Acid 0.90 mmol/L (0.7-2.0) 04/13/20 19:10 Calcium 8.8 mg/dL (8.4-10.2) 04/13/20 09:09 Magnesium 2.50 mg/dL (1.7-2.3) H 04/06/20 14:30 Ferritin 743.0 ng/mL (10.0-200.0) H 04/07/20 09:34 Total Bilirubin 0.30 mg/dL (0.1-1.2) 04/06/20 14:30 AST 39 units/L (5-40) 04/06/20 14:30 ALT 21 units/L (7-56) 04/06/20 14:30 Alkaline Phosphatase 738 units/L (35-129) H 04/06/20 14:30 Ammonia 43.0 umol/L (25-60) 04/06/20 14:30 Lactate Dehydrogenase 195 units/L (91-180) H 04/07/20 09:34 Total Creatine Kinase 23 units/L (30-135) L 04/06/20 14:30 Total Creatine Kinase 24 units/L (30-135) L 04/06/20 14:30 Troponin T 0.224 ng/mL (0.00-0.029) H* 04/06/20 14:30 C-Reactive Protein 7.50 mg/dL (0.00-1.30) H 04/07/20 09:34 Total Protein 8.1 g/dL (6.3-8.2) 04/06/20 14:30 Albumin 3.1 g/dL (3.9-5) L 04/06/20 14:30 Albumin/Globulin Ratio 0.6 % 04/06/20 14:30 Triglycerides 342 mg/dL (2-149) H 04/06/20 14:30 Cholesterol 223 mg/dL (50-199) H 04/06/20 14:30 LDL Cholesterol Direct 123 mg/dL (50-130) 04/06/20 14:30 HDL Cholesterol 35 mg/dL (40-59) L 04/06/20 14:30 Cholesterol/HDL Ratio 6.37 % 04/06/20 14:30 Procalcitonin 1.59 ng/mL (<0.15) 04/13/20 19:10 TSH 1.320 mlU/mL (0.270-4.200) 04/06/20 14:30 HCG, Qual Negative (Negative) 04/06/20 14:30 Arterial Blood Glucose 172 mg/dL (65-95) H 04/13/20 03:40 Arterial Blood Ionized Calcium 4.8 mg/dL (4.6-5.3) 04/13/20 03:40 Urine Color Yellow (Yellow) 04/06/20 13:34 Urine Turbidity Turbid (Clear) 04/06/20 13:34 Urine pH 7.0 (5.0-7.0) 04/06/20 13:34 Ur Specific [place] 1.017 (1.003-1.030) 04/06/20 13:34 Urine Protein 100 mg/dl mg/dL (Negative) 04/06/20 13:34 Urine Glucose (UA) 50 mg/dL (Negative) 04/06/20 13:34 Urine Ketones Tr mg/dL (Negative) 04/06/20 13:34 Urine Blood Sm (Negative) 04/06/20 13:34 Urine Nitrite Neg (Negative) 04/06/20 13:34 Urine Bilirubin Neg (Negative) 04/06/20 13:34 Urine Urobilinogen < 2.0 mg/dL (<2.0) 04/06/20 13:34 Ur Leukocyte Esterase Mod (Negative) 04/06/20 13:34 Urine WBC (Auto) > 182.0 /HPF (0.0-6.0) H 04/06/20 13:34 Urine RBC (Auto) 49.0 /HPF (0.0-6.0) 04/06/20 13:34 U Epithel Cells (Auto) 6.0 /HPF (0-13.0) 04/06/20 13:34 Urine Bacteria (Auto) 2+ /HPF (Negative) 04/06/20 13:34 Urine WBC Clumps 3+ /HPF 04/06/20 13:34 Urine Mucus 3+ /HPF 04/06/20 13:34 Salicylates < 0.3 mg/dL (2.8-20.0) L 04/06/20 14:30 Acetaminophen 5.0 ug/mL (10.0-30.0) L 04/06/20 14:30 Plasma/Serum Alcohol < 0.01 % (0-0.07) 04/06/20 14:30 Coronavirus (PCR) Negative (Negative) 04/07/20 Unknown Hepatitis A IgM Ab Non-reactive (NonReactive) 04/07/20 16:38 Hep Bs Antigen Non-reactive (Negative) 04/07/20 16:38 Hep B Core IgM Ab Non-reactive (NonReactive) 04/07/20 16:38 Hepatitis C Antibody Reactive (NonReactive) A 04/07/20 16:38 Blood Type O POSITIVE 04/06/20 14:30 Antibody Screen Negative 04/06/20 14:30 Bains/IV: Voiding Method Indwelling Catheter IV Catheter Type [Right VAS Cath Subclavian] IV Catheter Type [Left INT / Saline Lock Antecubital] IV Catheter Type [Right INT / Saline Lock Forearm] Active Medications - Current Medications Current Medications: Generic Name Dose Route Start Last Admin Trade Name Freq PRN Reason Stop Dose Admin Acetaminophen 650 mg 04/06/20 16:39 Tylenol PO Q6H PRN Pain, Mild (1-3) Lipase/Protease/Amylase 1 each 04/07/20 10:23 Pancreshadi Reyes 10,500 Unit FEEDTUBE PRN PRN For Clogged Feeding Tube Carvedilol 6.25 mg 04/13/20 22:00 04/15/20 22:07 Coreg PO 6.25 mg BID NOEL Administration Dextrose 50 ml 04/09/20 16:30 D50w (25gm) Syringe IV Q30MIN PRN Hypoglycemia Protocol Famotidine 20 mg 04/07/20 10:00 04/15/20 09:42 Pepcid PO 20 mg QDAY NEOL Administration Fentanyl 50 mcg 04/06/20 13:34 Sublimaze IV Q10MIN PRN ANALGESIA Heparin Sodium (Porcine) 5,000 unit 04/06/20 22:00 04/15/20 22:07 Heparin SUB-Q 5,000 unit Q12HR NOEL Administration Hydromorphone HCl 0.25 mg 04/06/20 16:39 Dilaudid IV Q4H PRN Pain, Moderate (4-6) Hydrophilic Ointment 1 applic 04/06/20 13:34 Vaseline Lip Therapy TP Q2HR PRN Dry Lips Fentanyl Citrate 2,000 mcg in 100 mls @ 5.505 mls/hr 04/06/20 14:00 04/16/20 08:40 Fentanyl Drip Premix IV 3 mcg/kg/hr TITR NOEL 16.515 mls/hr Titration Protocol 1 MCG/KG/HR Sodium Chloride 250 mls @ 10 mls/hr 04/07/20 10:03 04/09/20 05:38 Nacl 0.9% 250ml IV 10 mls/hr DIRECT PRN Administration FOR ABX Sodium Chloride 100 mls @ 999 mls/hr 04/07/20 17:00 Nacl 0.9% IV SPR[place] PRN Hypotension Insulin Glargine 10 units 04/09/20 17:00 04/15/20 17:33 Lantus SUB-Q 10 units Q24H NOEL Administration Insulin Human Regular 0 unit 04/09/20 18:00 04/16/20 06:20 Humulin R SUB-Q Not Given Q6H [facility] Protocol Labetalol HCl 10 mg 04/08/20 17:17 04/15/20 20:55 Labetalol IV 10 mg Q4H PRN Administration Blood Pressure Multi-Ingred Cream/Lotion/Oil/Oint 1 applic 04/06/20 13:34 Artificial Tears Ophth Oint OU Q4HR PRN Dry Eye(s) Simple Syrup 15 ml 04/07/20 10:23 Simple Syrup FEEDTUBE PRN PRN Hypoglycemia Simple Syrup 30 ml 04/07/20 10:23 Simple Syrup FEEDTUBE PRN PRN Hypoglycemia Sodium Bicarbonate 325 mg 04/07/20 10:23 Sodium Bicarbonate FEEDTUBE PRN PRN For Clogged Feeding Tube Sodium Chloride 10 ml 04/06/20 22:00 04/15/20 21:00 Sodium Chloride Flush Syringe 10 Ml IV 10 ml BID NOEL Administration Sodium Chloride 10 ml 04/06/20 16:32 Sodium Chloride Flush Syringe 10 Ml IV PRN PRN LINE FLUSH Nutrition/Malnutrition Assess - Dietary Evaluation Nutrition/Malnutrition Findings: Nutrition Notes Start: 04/07/20 08:19 Freq: Status: Active Protocol: Document 04/13/20 14:07 AL (Rec: 04/13/20 14:11 AL [id number]) Co-Sign 04/13/20 14:07 LP Nutrition Notes Initial or Follow up Reassessment Current Diagnosis CKD (stage V CKD),Diabetes, Hypertension,Stroke Other Pertinent Diagnosis on HD, bilateral BKA, AMS Current Diet Nepro 1.8 at 45 mL/hr (goal rate) Labs/Tests BUN 43 Cr 4.9 POC BG 155 Pertinent Medications Humulin Fentanyl KCl 40 mEq (04/12) Height 5 ft 5 in Weight 110.1 kg [place] Body Weight (kg) 56.81 BMI 40.4 Weight Status Morbidly Obese Subjective/Other Information F/U for TF tolerance. Patient is tolerating TF well at goal rate. Percent of energy/protein needs met: 100%/61% Burn Absent Trauma Absent GI Symptoms None Current % PO Negligible Minimum of two criteria No physical signs of malnutrition #1 Nutrition Diagnosis Inadequate oral intake Diagnosis Progress(for reassessment Continues documentation) Is patient on ventilator? Yes Is Patient Ambulatory and/or Out of Bed No REE-([facility]-confined to bed) 2063.820 Kcal/Kg value to use for calculation 16 Approximate Energy Requirements Using 1762 kcal/Kg Calculation Used for Recommendations Kcal/kg Additional Notes Protein Needs: up to 142 g (up to 2.5 g/kg IBW) Fluid Needs: 1 mL/kcal Nutrition Intervention Change Diet Order: Continue TF Nutrition Support: Nepro 1.8 at 45 mL/hr (goal rate) Flush 200 mL q4h Kcal 1,944 Protein (gm) 87 Fluid (mL) 785 Goal #1 Meet estimated energy and protein needs as best as possible via TF Anticipated Discharge Needs: Unable to determine at this time Follow-Up By: 04/19/20 Additional Comments F/U for TF tolerance
--- NOTE | 2020-04-16 11:47 | Progress Note ---
Assessment and Plan Impression: * End stage renal disease * Sepsis * Positive blood cx - likely contaminant --Blood cx: staph epi (05/29 bottles - Apr 06) * Acute hypoxic respiratory failure * Acute encephalopathy * Acute ischemic stroke * UTI * Hx of COVID 19 --SARS Cov2 PCR negative Apr 07 * Metabolic acidosis Plan: * Continue hemodialysis on MWF this week * UF as tolerated * Abx per ID * neurology notes reviewed * Vent management per CCM * Dose medications for renal function * AM labs Subjective Date of service: 04/16/20 Principal diagnosis: Ac on ch hypoxemic and hypercapnic resp failure; PUI COVID- 19 infxn; AMS Interval history: resting in bed, events noted Objective - Exam Narrative Exam: General appearance: well-developed, well-nourished EENT: ATNC, other (ETT in place) Respiratory: Present: Other (coarse BS) Cardiology: regular, S1S2 Gastrointestinal: obese Integumentary: warm and dry Musculoskeletal: other (Bilateral BKA) - Vital Signs Vital signs: Vital Signs - 12hr 04/15/20 04/16/20 04/16/20 23:53 00:00 01:00 Temperature Pulse Rate 79 78 80 Pulse Rate [ 78 From Monitor] Respiratory 14 13 12 Rate Blood Pressure 165/49 160/46 167/42 O2 Sat by Pulse 99 100 98 Oximetry 04/16/20 04/16/20 04/16/20 02:00 03:00 03:37 Temperature Pulse Rate 85 85 82 Pulse Rate [ From Monitor] Respiratory 10 L 12 Rate Blood Pressure 148/55 159/48 155/50 O2 Sat by Pulse 99 98 100 Oximetry 04/16/20 04/16/20 04/16/20 03:51 04:00 04:01 Temperature 98.5 F Pulse Rate 83 82 Pulse Rate [ 78 From Monitor] Respiratory 13 11 L Rate Blood Pressure 147/43 O2 Sat by Pulse 100 97 Oximetry 04/16/20 04/16/20 04/16/20 05:00 06:00 07:00 Temperature Pulse Rate 83 79 79 Pulse Rate [ From Monitor] Respiratory 11 L 11 L 12 Rate Blood Pressure 133/50 139/43 138/45 O2 Sat by Pulse 96 96 96 Oximetry 04/16/20 04/16/20 04/16/20 07:08 08:00 08:01 Temperature 99 F Pulse Rate 79 78 75 Pulse Rate [ 82 From Monitor] Respiratory 13 12 Rate Blood Pressure 152/38 128/45 O2 Sat by Pulse 100 100 97 Oximetry 04/16/20 04/16/20 04/16/20 09:00 09:35 10:00 Temperature Pulse Rate 89 87 86 Pulse Rate [ From Monitor] Respiratory 12 12 Rate Blood Pressure 161/54 151/101 145/50 O2 Sat by Pulse 96 98 Oximetry 04/16/20 11:00 Temperature Pulse Rate 79 Pulse Rate [ From Monitor] Respiratory 15 Rate Blood Pressure 113/36 O2 Sat by Pulse 93 Oximetry - Lab 04/12/20 08:14 04/13/20 09:09 Most recent lab results ABG pH 7.383 (7.320-7.450) 04/13/20 03:40 ABG pCO2 54.0 mm Hg 04/11/20 03:44 ABG pO2 73.4 mm Hg (80.0-90.0) L 04/11/20 03:44 ABG HCO3 26.7 mmol/L (20.0-26.0) H 04/11/20 03:44 ABG O2 Saturation 95.0 % (95.0-99.0) 04/11/20 03:44 Calcium 8.8 mg/dL (8.4-10.2) 04/13/20 09:09 Magnesium 2.50 mg/dL (1.7-2.3) H 04/06/20 14:30 Medications & Allergies - Medications Allergies/Adverse Reactions: Allergies carrot Allergy (Verified 07/28/19 12:30) Hives erythromycin base Allergy (Verified 07/30/19 11:26) Hives latex Allergy (Verified 02/18/19 13:20) Rash peas Allergy (Verified 12/20/19 12:37) Hives vancomycin Allergy (Verified 12/31/19 15:46) Hives Home Medications: Home Medications Medication Instructions Recorded Confirmed Last Taken Type Aripiprazole 5 mg PO DAILY 02/18/19 04/06/20 02/17/19 History Benadryl CAP 25 mg PO Q8H PRN 02/18/19 04/06/20 02/17/19 History Calcium Acetate 667 mg PO TIDWM 02/18/19 04/06/20 02/17/19 History Carvedilol 6.25 mg PO Q12H 02/18/19 04/06/20 02/17/19 History Colace CAP 100 mg PO Q12H PRN 02/18/19 04/06/20 02/17/19 History Esomeprazole Magnesium 40 mg PO QDAC 02/18/19 04/06/20 02/17/19 History HumaLOG 10 units SUB-Q TIDWM 02/18/19 04/06/20 02/17/19 History Insulin Detemir (Nf) [Levemir See Protocol SQ QHS 02/18/19 04/06/20 02/17/19 History Flextouch (Nf)] Losartan Potassium 50 mg PO DAILY 02/18/19 04/06/20 02/17/19 History Lyrica 75 mg PO Q12H 02/18/19 04/06/20 02/17/19 History Melatonin 6 mg PO QHS 02/18/19 04/06/20 02/17/19 History Senna 17.2 mg PO QHS PRN 02/18/19 04/06/20 02/17/19 History Venlafaxine HCl [Venlafaxine HCl 150 mg PO QDAC 02/18/19 04/06/20 02/17/19 History ER] Vitamin C 250 mg PO DAILY 02/18/19 04/06/20 02/17/19 History ZyrTEC 10mg cap 10 mg PO DAILY 02/18/19 04/06/20 02/17/19 History Calcium Acetate [Phoslo] 667 mg PO TIDWM capsule 12/22/19 04/06/20 Unknown Rx Fe Fumarate/FA/Mv, Min Comb#15 1 each PO QDAY capsule 12/22/19 04/06/20 Unknown Rx [Hemocyte Plus] Albuterol Mdi (or & Nicu Only) 2.5 puff IH Q4HRT PRN inha 01/12/20 04/06/20 Unknown Rx [ProAir HFA Inhaler] dexAMETHasone [Decadron] 6 mg PO Q12HR #10 tablet 01/12/20 04/06/20 Unknown Rx oxyCODONE 5 mg PO Q6H PRN #10 01/12/20 04/06/20 Unknown Rx Active Medications: Generic Name Dose Route Start Last Admin Trade Name Freq PRN Reason Stop Dose Admin Acetaminophen 650 mg 04/06/20 16:39 Tylenol PO Q6H PRN Pain, Mild (1-3) Lipase/Protease/Amylase 1 each 04/07/20 10:23 Pancreaze 10,500 Unit FEEDTUBE PRN PRN For Clogged Feeding Tube Carvedilol 6.25 mg 04/13/20 22:00 04/16/20 09:35 Coreg PO 6.25 mg BID NOEL Administration Dextrose 50 ml 04/09/20 16:30 D50w (25gm) Syringe IV Q30MIN PRN Hypoglycemia Protocol Famotidine 20 mg 04/07/20 10:00 04/16/20 09:35 Pepcid PO 20 mg QDAY NOEL Administration Fentanyl 50 mcg 04/06/20 13:34 Sublimaze IV Q10MIN PRN ANALGESIA Heparin Sodium (Porcine) 5,000 unit 04/06/20 22:00 04/16/20 09:35 Heparin SUB-Q 5,000 unit Q12HR NOEL Administration Hydromorphone HCl 0.25 mg 04/06/20 16:39 Dilaudid IV Q4H PRN Pain, Moderate (4-6) Hydrophilic Ointment 1 applic 04/06/20 13:34 Vaseline Lip Therapy TP Q2HR PRN Dry Lips Fentanyl Citrate 2,000 mcg in 100 mls @ 5.505 mls/hr 04/06/20 14:00 04/16/20 11:17 Fentanyl Drip Premix IV 0 mcg/kg/hr TITR NOEL 0 mls/hr Titration Protocol 1 MCG/KG/HR Sodium Chloride 250 mls @ 10 mls/hr 04/07/20 10:03 04/09/20 05:38 Nacl 0.9% 250ml IV 10 mls/hr DIRECT PRN Administration FOR ABX Sodium Chloride 100 mls @ 999 mls/hr 04/07/20 17:00 Nacl 0.9% IV SPRING PRN Hypotension Insulin Glargine 10 units 04/09/20 17:00 04/15/20 17:33 Lantus SUB-Q 10 units Q24H NOEL Administration Insulin Human Regular 0 unit 04/09/20 18:00 04/16/20 06:20 Humulin R SUB-Q Not Given Q6H [facility] Protocol Labetalol HCl 10 mg 04/08/20 17:17 04/15/20 20:55 Labetalol IV 10 mg Q4H PRN Administration Blood Pressure Multi-Ingred Cream/Lotion/Oil/Oint 1 applic 04/06/20 13:34 Artificial Tears Ophth Oint OU Q4HR PRN Dry Eye(s) Simple Syrup 15 ml 04/07/20 10:23 Simple Syrup FEEDTUBE PRN PRN Hypoglycemia Simple Syrup 30 ml 04/07/20 10:23 Simple Syrup FEEDTUBE PRN PRN Hypoglycemia Sodium Bicarbonate 325 mg 04/07/20 10:23 Sodium Bicarbonate FEEDTUBE PRN PRN For Clogged Feeding Tube Sodium Chloride 10 ml 04/06/20 22:00 04/16/20 09:36 Sodium Chloride Flush Syringe 10 Ml IV 10 ml BID NOEL Administration Sodium Chloride 10 ml 04/06/20 16:32 Sodium Chloride Flush Syringe 10 Ml IV PRN PRN LINE FLUSH
--- NOTE | 2020-04-16 12:36 | Progress Note ---
Assessment and Plan Acute hypoxemic respiratory failure Severe sepsis: Present on admission with hypothermia, leukocytosis, altered mental status, likely due to bilateral pneumonia, bacteremia and UTI. Bilateral pneumonia: Aspiration pneumonia/HAP. Recent COVID infection Jarrett Morales in January 2020 requiring intubation Acute toxic-metabolic encephalopathy Coag negative staph bacteremia: 05/29 bottles UTI End-stage renal disease on hemodialysis Extensive Candidal intertrigo in groin and vagina Chronic leukocytosis Chronic Hepatitis C Stop Fentanyl infusion and use intermittent dosing to avoid apnea If she continues to tolerate SBT, goal to liberate from MVS in the next few days. May need BIPAP support post extubation -Monitor temperature curve and WCC, monitor off antibiotics -CXR, ABG as clinically indicated -Continue to monitor hemodynamics closely - continue to wean supplemental oxygen for target O2 sats > 90% - VAP bundle addressed. Aspiration precautions, HOB >40 - continue lung protective strategies - continue bronchodilators with pulmonary hygiene per RT - wean per pulmonary driven protocols otherwise - continue accuchecks with glycemic control per SSI (While critically ill target blood glucose of 140-180 mg/dL; avoid hypoglycemia) - continue fentanyl prn for sedation / analgesia - sedation prn for target RASS 0 to -1 - avoid nephrotoxins, renally dose all medications -HD per renal service - continue to avoid benzodiazepines, reduce the possibility of delirium - prn analgesia per CPOT score - Maintenance of sleep-wake cycle, avoid delirium - continue enteral nutritional support at goal rate as tolerated - Stress ulcer and VTE prophylaxis (Heparin, Famotidine) - PT/OT/ROM exercises - continue mobility protocols for pressure ulcer prophylaxis - Monitor hemodynamics closely - continue other care per attending / other consultants - discharge planning ongoing concurrently CONDITION: CRITICAL PROGNOSIS: GUARDED CODE STATUS: FULL CODE The high probability of a clinically significant, sudden or life-threatening deterioration of the [respiratory, cardiovascular, renal & neurologic] system(s) required my full and direct attention, intervention and personal management. The aggregate critical care time was [32] minutes without overlap. Time includes spent on; [x] Data Review and interpretation [x] Patient assessment and monitoring of vital signs Subjective Date of service: 04/16/20 Principal diagnosis: Ac on ch hypoxemic and hypercapnic resp failure; PUI COVID- 19 infxn; AMS Interval history: Patient is seen today for: Acute on chronic hypoxemic and hypercapnic resp failure; PUI Coronavirus-19 infection; Acute encephalopathy; ESRD; Morbid ob esity; DM II; AE-COPD Seen and examined at bedside; 24hour events reviewed; nursing and respiratory care staff consulted; no adverse overnight events reported to me; resting peacefully in bed; remains on MVS; awake and alert, on HD. PSV yesterday but with episodes of apnea during the trial. No fevers, no diarrhea. Currently on PSV, Fentanyl is off and she is tolerating it well Objective Vital Signs - 12hr 04/16/20 04/16/20 04/16/20 01:00 02:00 03:00 Temperature Pulse Rate 80 85 85 Pulse Rate [ From Monitor] Respiratory 12 10 L 12 Rate Blood Pressure 167/42 148/55 159/48 O2 Sat by Pulse 98 99 98 Oximetry 04/16/20 04/16/20 04/16/20 03:37 03:51 04:00 Temperature 98.5 F Pulse Rate 82 83 Pulse Rate [ 78 From Monitor] Respiratory 13 Rate Blood Pressure 155/50 O2 Sat by Pulse 100 100 Oximetry 04/16/20 04/16/20 04/16/20 04:01 05:00 06:00 Temperature Pulse Rate 82 83 79 Pulse Rate [ From Monitor] Respiratory 11 L 11 L 11 L Rate Blood Pressure 147/43 133/50 139/43 O2 Sat by Pulse 97 96 96 Oximetry 04/16/20 04/16/20 04/16/20 07:00 07:08 08:00 Temperature 99 F Pulse Rate 79 79 78 Pulse Rate [ 82 From Monitor] Respiratory 12 13 Rate Blood Pressure 138/45 152/38 O2 Sat by Pulse 96 100 100 Oximetry 04/16/20 04/16/20 04/16/20 08:01 09:00 09:35 Temperature Pulse Rate 75 89 87 Pulse Rate [ From Monitor] Respiratory 12 12 Rate Blood Pressure 128/45 161/54 151/101 O2 Sat by Pulse 97 96 Oximetry 04/16/20 04/16/20 04/16/20 10:00 11:00 11:20 Temperature Pulse Rate 86 79 87 Pulse Rate [ From Monitor] Respiratory 12 15 Rate Blood Pressure 145/50 113/36 147/52 O2 Sat by Pulse 98 93 100 Oximetry Constitutional: alert, appears uncomfortable, other (middle aged obese female with mildly increased respiratory effort at rest) Eyes: non-icteric ENT: oropharynx moist, other (ETT 23 cm PARRISH) Neck: supple, no lymphadenopathy, no JVD Effort: normal Ascultation: Bilateral: diminished breath sounds, rhonchi Percussion: Bilateral: not dull Cardiovascular: regular rate and rhythm, other (S1,S2) Gastrointestinal: normoactive bowel sounds, soft, non-tender, non-distended (protuberant), other (Bains catheter) Integumentary: erythema (right BKA stump) Extremities: no cyanosis, no ischemia or petechiae, other (bilateral BKAs ) Neurologic: non-focal exam (grossly), pupils equal and round, unable to assess Psychiatric: other (unable to assess re: AMS) CBC and BMP: 04/17/20 05:44 04/17/20 05:44 ABG, PT/INR, D-dimer: ABG ABG pH 7.383 (7.320-7.450) 04/13/20 03:40 POC ABG pCO2 42.4 mmHg (32.0-48.0) 04/13/20 03:40 ABG pCO2 54.0 mm Hg 04/11/20 03:44 POC ABG pO2 95.7 mmHg (83-108) 04/13/20 03:40 ABG pO2 73.4 mm Hg (80.0-90.0) L 04/11/20 03:44 POC ABG HCO3 24.7 04/13/20 03:40 ABG O2 Saturation 95.0 % (95.0-99.0) 04/11/20 03:44 PT/INR, D-dimer PT 13.8 Sec. (12.2-14.9) 04/06/20 14:30 INR 1.04 (0.87-1.13) 04/06/20 14:30 D-Dimer 1063.66 ng/mlDDU (0-234) H 04/07/20 09:34 Abnormal lab findings: Abnormal Labs 04/06/20 04/06/20 04/06/20 13:34 14:30 14:30 WBC 19.2 H RBC Hgb Hct RDW 17.8 H Seg Neuts % (Manual) 90.0 H Lymphocytes % (Manual) 4.0 L Basophils % (Manual) Seg Neutrophils # Man 17.3 H Lymphocytes # (Manual) 0.8 L Monocytes # (Manual) Eosinophils # (Manual) Basophils # (Manual) D-Dimer ABG pH POC ABG pCO2 POC ABG pO2 ABG pO2 ABG HCO3 ABG Base Excess ABG Hemoglobin ABG Sodium ABG Chloride ABG Glucose Oxyhemoglobin Sodium Potassium 5.2 H Chloride Carbon Dioxide 17 L BUN 53 H Creatinine 7.8 H Glucose 144 H POC Glucose Calcium Magnesium Ferritin Alkaline Phosphatase 738 H Lactate Dehydrogenase Total Creatine Kinase 23 L Troponin T 0.224 H* C-Reactive Protein Albumin 3.1 L Triglycerides 342 H Cholesterol 223 H HDL Cholesterol 35 L Arterial Blood Glucose Arterial Blood Ionized Calcium Urine WBC (Auto) > 182.0 H Salicylates Acetaminophen Hepatitis C Antibody 04/06/20 04/06/20 04/06/20 14:30 14:30 14:30 WBC RBC Hgb Hct RDW Seg Neuts % (Manual) Lymphocytes % (Manual) Basophils % (Manual) Seg Neutrophils # Man Lymphocytes # (Manual) Monocytes # (Manual) Eosinophils # (Manual) Basophils # (Manual) D-Dimer ABG pH POC ABG pCO2 POC ABG pO2 ABG pO2 ABG HCO3 ABG Base Excess ABG Hemoglobin ABG Sodium ABG Chloride ABG Glucose Oxyhemoglobin Sodium Potassium Chloride Carbon Dioxide BUN Creatinine Glucose POC Glucose Calcium Magnesium 2.50 H Ferritin Alkaline Phosphatase Lactate Dehydrogenase Total Creatine Kinase 24 L Troponin T C-Reactive Protein Albumin Triglycerides Cholesterol HDL Cholesterol Arterial Blood Glucose Arterial Blood Ionized Calcium Urine WBC (Auto) Salicylates < 0.3 L Acetaminophen 5.0 L Hepatitis C Antibody 04/06/20 04/06/20 04/07/20 14:39 20:00 00:48 WBC RBC Hgb Hct RDW Seg Neuts % (Manual) Lymphocytes % (Manual) Basophils % (Manual) Seg Neutrophils # Man Lymphocytes # (Manual) Monocytes # (Manual) Eosinophils # (Manual) Basophils # (Manual) D-Dimer ABG pH 7.281 L 7.306 L POC ABG pCO2 POC ABG pO2 78.0 L ABG pO2 133.8 H ABG HCO3 18.3 L ABG Base Excess -7.8 L ABG Hemoglobin 10.8 L 10.8 L ABG Sodium ABG Chloride 108.0 H ABG Glucose Oxyhemoglobin Sodium Potassium Chloride Carbon Dioxide BUN Creatinine Glucose POC Glucose 69 L Calcium Magnesium Ferritin Alkaline Phosphatase Lactate Dehydrogenase Total Creatine Kinase Troponin T C-Reactive Protein Albumin Triglycerides Cholesterol HDL Cholesterol Arterial Blood Glucose Arterial Blood Ionized Calcium Urine WBC (Auto) Salicylates Acetaminophen Hepatitis C Antibody 04/07/20 04/07/20 04/07/20 09:34 09:34 09:34 WBC RBC Hgb Hct RDW Seg Neuts % (Manual) Lymphocytes % (Manual) Basophils % (Manual) Seg Neutrophils # Man Lymphocytes # (Manual) Monocytes # (Manual) Eosinophils # (Manual) Basophils # (Manual) D-Dimer 1063.66 H ABG pH POC ABG pCO2 POC ABG pO2 ABG pO2 ABG HCO3 ABG Base Excess ABG Hemoglobin ABG Sodium ABG Chloride ABG Glucose Oxyhemoglobin Sodium Potassium Chloride Carbon Dioxide BUN Creatinine Glucose POC Glucose Calcium Magnesium Ferritin 743.0 H Alkaline Phosphatase Lactate Dehydrogenase 195 H Total Creatine Kinase Troponin T C-Reactive Protein 7.50 H Albumin Triglycerides Cholesterol HDL Cholesterol Arterial Blood Glucose Arterial Blood Ionized Calcium Urine WBC (Auto) Salicylates Acetaminophen Hepatitis C Antibody 04/07/20 04/07/20 04/07/20 10:01 16:38 23:51 WBC RBC Hgb Hct RDW Seg Neuts % (Manual) Lymphocytes % (Manual) Basophils % (Manual) Seg Neutrophils # Man Lymphocytes # (Manual) Monocytes # (Manual) Eosinophils # (Manual) Basophils # (Manual) D-Dimer ABG pH POC ABG pCO2 POC ABG pO2 79.8 L ABG pO2 ABG HCO3 ABG Base Excess ABG Hemoglobin 10.3 L ABG Sodium ABG Chloride 109.0 H ABG Glucose Oxyhemoglobin Sodium Potassium Chloride Carbon Dioxide BUN Creatinine Glucose POC Glucose 117 H Calcium Magnesium Ferritin Alkaline Phosphatase Lactate Dehydrogenase Total Creatine Kinase Troponin T C-Reactive Protein Albumin Triglycerides Cholesterol HDL Cholesterol Arterial Blood Glucose Arterial Blood Ionized Calcium 4.5 L Urine WBC (Auto) Salicylates Acetaminophen Hepatitis C Antibody Reactive A 04/08/20 04/08/20 04/08/20 04:58 12:48 17:03 WBC RBC Hgb Hct RDW Seg Neuts % (Manual) Lymphocytes % (Manual) Basophils % (Manual) Seg Neutrophils # Man Lymphocytes # (Manual) Monocytes # (Manual) Eosinophils # (Manual) Basophils # (Manual) D-Dimer ABG pH POC ABG pCO2 POC ABG pO2 ABG pO2 ABG HCO3 ABG Base Excess ABG Hemoglobin ABG Sodium ABG Chloride ABG Glucose Oxyhemoglobin Sodium Potassium Chloride Carbon Dioxide BUN Creatinine Glucose POC Glucose 129 H 155 H 201 H Calcium Magnesium Ferritin Alkaline Phosphatase Lactate Dehydrogenase Total Creatine Kinase Troponin T C-Reactive Protein Albumin Triglycerides Cholesterol HDL Cholesterol Arterial Blood Glucose Arterial Blood Ionized Calcium Urine WBC (Auto) Salicylates Acetaminophen Hepatitis C Antibody 04/08/20 04/08/20 04/09/20 23:49 Unknown 05:31 WBC RBC Hgb Hct RDW Seg Neuts % (Manual) Lymphocytes % (Manual) Basophils % (Manual) Seg Neutrophils # Man Lymphocytes # (Manual) Monocytes # (Manual) Eosinophils # (Manual) Basophils # (Manual) D-Dimer ABG pH 7.349 L POC ABG pCO2 POC ABG pO2 ABG pO2 117.3 H ABG HCO3 ABG Base Excess ABG Hemoglobin 7.4 L ABG Sodium ABG Chloride ABG Glucose Oxyhemoglobin Sodium Potassium Chloride Carbon Dioxide BUN Creatinine Glucose POC Glucose 178 H 248 H Calcium Magnesium Ferritin Alkaline Phosphatase Lactate Dehydrogenase Total Creatine Kinase Troponin T C-Reactive Protein Albumin Triglycerides Cholesterol HDL Cholesterol Arterial Blood Glucose Arterial Blood Ionized Calcium Urine WBC (Auto) Salicylates Acetaminophen Hepatitis C Antibody 04/09/20 04/09/20 04/09/20 11:39 17:35 Unknown WBC RBC Hgb Hct RDW Seg Neuts % (Manual) Lymphocytes % (Manual) Basophils % (Manual) Seg Neutrophils # Man Lymphocytes # (Manual) Monocytes # (Manual) Eosinophils # (Manual) Basophils # (Manual) D-Dimer ABG pH POC ABG pCO2 51.6 H POC ABG pO2 ABG pO2 ABG HCO3 ABG Base Excess ABG Hemoglobin 11.4 L ABG Sodium 130.1 L ABG Chloride ABG Glucose 249 H Oxyhemoglobin Sodium Potassium Chloride Carbon Dioxide BUN Creatinine Glucose POC Glucose 319 H 254 H Calcium Magnesium Ferritin Alkaline Phosphatase Lactate Dehydrogenase Total Creatine Kinase Troponin T C-Reactive Protein Albumin Triglycerides Cholesterol HDL Cholesterol Arterial Blood Glucose 249 H Arterial Blood Ionized Calcium 4.1 L Urine WBC (Auto) Salicylates Acetaminophen Hepatitis C Antibody 04/10/20 04/10/20 04/10/20 00:00 03:15 05:49 WBC RBC Hgb Hct RDW Seg Neuts % (Manual) Lymphocytes % (Manual) Basophils % (Manual) Seg Neutrophils # Man Lymphocytes # (Manual) Monocytes # (Manual) Eosinophils # (Manual) Basophils # (Manual) D-Dimer ABG pH POC ABG pCO2 48.2 H POC ABG pO2 ABG pO2 ABG HCO3 ABG Base Excess ABG Hemoglobin 9.9 L ABG Sodium 135.4 L ABG Chloride ABG Glucose 215 H Oxyhemoglobin Sodium Potassium Chloride Carbon Dioxide BUN Creatinine Glucose POC Glucose 194 H 221 H Calcium Magnesium Ferritin Alkaline Phosphatase Lactate Dehydrogenase Total Creatine Kinase Troponin T C-Reactive Protein Albumin Triglycerides Cholesterol HDL Cholesterol Arterial Blood Glucose 215 H Arterial Blood Ionized Calcium 4.5 L Urine WBC (Auto) Salicylates Acetaminophen Hepatitis C Antibody 04/10/20 04/10/20 04/10/20 08:18 08:18 12:22 WBC 28.9 H RBC 3.38 L Hgb 9.5 L Hct 30.1 L RDW 16.9 H Seg Neuts % (Manual) 87.0 H Lymphocytes % (Manual) 9.0 L Basophils % (Manual) 2.0 H Seg Neutrophils # Man 25.1 H Lymphocytes # (Manual) Monocytes # (Manual) Eosinophils # (Manual) Basophils # (Manual) 0.6 H D-Dimer ABG pH POC ABG pCO2 POC ABG pO2 ABG pO2 ABG HCO3 ABG Base Excess ABG Hemoglobin ABG Sodium ABG Chloride ABG Glucose Oxyhemoglobin Sodium 134 L Potassium 3.5 L D Chloride 94.9 L Carbon Dioxide BUN 38 H Creatinine 5.5 H Glucose 230 H POC Glucose 218 H Calcium Magnesium Ferritin Alkaline Phosphatase Lactate Dehydrogenase Total Creatine Kinase Troponin T C-Reactive Protein Albumin Triglycerides Cholesterol HDL Cholesterol Arterial Blood Glucose Arterial Blood Ionized Calcium Urine WBC (Auto) Salicylates Acetaminophen Hepatitis C Antibody 04/10/20 04/10/20 04/10/20 17:27 18:08 23:29 WBC RBC Hgb Hct RDW Seg Neuts % (Manual) Lymphocytes % (Manual) Basophils % (Manual) Seg Neutrophils # Man Lymphocytes # (Manual) Monocytes # (Manual) Eosinophils # (Manual) Basophils # (Manual) D-Dimer ABG pH POC ABG pCO2 POC ABG pO2 ABG pO2 ABG HCO3 ABG Base Excess ABG Hemoglobin ABG Sodium ABG Chloride ABG Glucose Oxyhemoglobin Sodium Potassium Chloride Carbon Dioxide BUN Creatinine Glucose POC Glucose 218 H 223 H 166 H Calcium Magnesium Ferritin Alkaline Phosphatase Lactate Dehydrogenase Total Creatine Kinase Troponin T C-Reactive Protein Albumin Triglycerides Cholesterol HDL Cholesterol Arterial Blood Glucose Arterial Blood Ionized Calcium Urine WBC (Auto) Salicylates Acetaminophen Hepatitis C Antibody 04/11/20 04/11/20 04/11/20 03:44 05:28 07:39 WBC 26.9 H RBC 3.32 L Hgb 9.4 L Hct 29.5 L RDW 17.2 H Seg Neuts % (Manual) 83.0 H Lymphocytes % (Manual) 10.0 L Basophils % (Manual) Seg Neutrophils # Man 22.3 H Lymphocytes # (Manual) Monocytes # (Manual) 1.1 H Eosinophils # (Manual) 0.5 H Basophils # (Manual) D-Dimer ABG pH 7.313 L POC ABG pCO2 POC ABG pO2 ABG pO2 73.4 L ABG HCO3 26.7 H ABG Base Excess ABG Hemoglobin 11.0 L ABG Sodium ABG Chloride ABG Glucose Oxyhemoglobin 92.8 L Sodium Potassium Chloride Carbon Dioxide BUN Creatinine Glucose POC Glucose 164 H Calcium Magnesium Ferritin Alkaline Phosphatase Lactate Dehydrogenase Total Creatine Kinase Troponin T C-Reactive Protein Albumin Triglycerides Cholesterol HDL Cholesterol Arterial Blood Glucose Arterial Blood Ionized Calcium Urine WBC (Auto) Salicylates Acetaminophen Hepatitis C Antibody 04/11/20 04/11/20 04/11/20 07:39 12:25 19:02 WBC RBC Hgb Hct RDW Seg Neuts % (Manual) Lymphocytes % (Manual) Basophils % (Manual) Seg Neutrophils # Man Lymphocytes # (Manual) Monocytes # (Manual) Eosinophils # (Manual) Basophils # (Manual) D-Dimer ABG pH POC ABG pCO2 POC ABG pO2 ABG pO2 ABG HCO3 ABG Base Excess ABG Hemoglobin ABG Sodium ABG Chloride ABG Glucose Oxyhemoglobin Sodium Potassium Chloride Carbon Dioxide BUN 48 H Creatinine 6.1 H Glucose 122 H POC Glucose 175 H 175 H Calcium 8.3 L Magnesium Ferritin Alkaline Phosphatase Lactate Dehydrogenase Total Creatine Kinase Troponin T C-Reactive Protein Albumin Triglycerides Cholesterol HDL Cholesterol Arterial Blood Glucose Arterial Blood Ionized Calcium Urine WBC (Auto) Salicylates Acetaminophen Hepatitis C Antibody 04/12/20 04/12/20 04/12/20 00:02 05:51 08:14 WBC 28.0 H RBC 3.29 L Hgb 9.5 L Hct 29.1 L RDW 16.9 H Seg Neuts % (Manual) 88.0 H Lymphocytes % (Manual) 7.0 L Basophils % (Manual) Seg Neutrophils # Man 24.6 H Lymphocytes # (Manual) Monocytes # (Manual) Eosinophils # (Manual) 0.6 H Basophils # (Manual) D-Dimer ABG pH POC ABG pCO2 POC ABG pO2 ABG pO2 ABG HCO3 ABG Base Excess ABG Hemoglobin ABG Sodium ABG Chloride ABG Glucose Oxyhemoglobin Sodium Potassium Chloride Carbon Dioxide BUN Creatinine Glucose POC Glucose 146 H 151 H Calcium Magnesium Ferritin Alkaline Phosphatase Lactate Dehydrogenase Total Creatine Kinase Troponin T C-Reactive Protein Albumin Triglycerides Cholesterol HDL Cholesterol Arterial Blood Glucose Arterial Blood Ionized Calcium Urine WBC (Auto) Salicylates Acetaminophen Hepatitis C Antibody 04/12/20 04/12/20 04/12/20 08:14 12:21 17:26 WBC RBC Hgb Hct RDW Seg Neuts % (Manual) Lymphocytes % (Manual) Basophils % (Manual) Seg Neutrophils # Man Lymphocytes # (Manual) Monocytes # (Manual) Eosinophils # (Manual) Basophils # (Manual) D-Dimer ABG pH POC ABG pCO2 POC ABG pO2 ABG pO2 ABG HCO3 ABG Base Excess ABG Hemoglobin ABG Sodium ABG Chloride ABG Glucose Oxyhemoglobin Sodium Potassium 3.3 L Chloride Carbon Dioxide BUN 32 H Creatinine 4.3 H Glucose 188 H POC Glucose 196 H 235 H Calcium Magnesium Ferritin Alkaline Phosphatase Lactate Dehydrogenase Total Creatine Kinase Troponin T C-Reactive Protein Albumin Triglycerides Cholesterol HDL Cholesterol Arterial Blood Glucose Arterial Blood Ionized Calcium Urine WBC (Auto) Salicylates Acetaminophen Hepatitis C Antibody 04/12/20 04/13/20 04/13/20 23:34 03:40 05:33 WBC RBC Hgb Hct RDW Seg Neuts % (Manual) Lymphocytes % (Manual) Basophils % (Manual) Seg Neutrophils # Man Lymphocytes # (Manual) Monocytes # (Manual) Eosinophils # (Manual) Basophils # (Manual) D-Dimer ABG pH POC ABG pCO2 POC ABG pO2 ABG pO2 ABG HCO3 ABG Base Excess ABG Hemoglobin 9.4 L ABG Sodium 133.6 L ABG Chloride ABG Glucose 172 H Oxyhemoglobin Sodium Potassium Chloride Carbon Dioxide BUN Creatinine Glucose POC Glucose 171 H 167 H Calcium Magnesium Ferritin Alkaline Phosphatase Lactate Dehydrogenase Total Creatine Kinase Troponin T C-Reactive Protein Albumin Triglycerides Cholesterol HDL Cholesterol Arterial Blood Glucose 172 H Arterial Blood Ionized Calcium Urine WBC (Auto) Salicylates Acetaminophen Hepatitis C Antibody 04/13/20 04/13/20 04/13/20 07:49 09:09 11:34 WBC RBC Hgb Hct RDW Seg Neuts % (Manual) Lymphocytes % (Manual) Basophils % (Manual) Seg Neutrophils # Man Lymphocytes # (Manual) Monocytes # (Manual) Eosinophils # (Manual) Basophils # (Manual) D-Dimer ABG pH POC ABG pCO2 POC ABG pO2 ABG pO2 ABG HCO3 ABG Base Excess ABG Hemoglobin ABG Sodium ABG Chloride ABG Glucose Oxyhemoglobin Sodium Potassium Chloride Carbon Dioxide 31 H BUN 44 H 43 H Creatinine 5.0 H 4.9 H Glucose 164 H 164 H POC Glucose 155 H Calcium Magnesium Ferritin Alkaline Phosphatase Lactate Dehydrogenase Total Creatine Kinase Troponin T C-Reactive Protein Albumin Triglycerides Cholesterol HDL Cholesterol Arterial Blood Glucose Arterial Blood Ionized Calcium Urine WBC (Auto) Salicylates Acetaminophen Hepatitis C Antibody 04/13/20 04/13/20 04/14/20 17:38 23:40 04:35 WBC RBC Hgb Hct RDW Seg Neuts % (Manual) Lymphocytes % (Manual) Basophils % (Manual) Seg Neutrophils # Man Lymphocytes # (Manual) Monocytes # (Manual) Eosinophils # (Manual) Basophils # (Manual) D-Dimer ABG pH POC ABG pCO2 POC ABG pO2 ABG pO2 ABG HCO3 ABG Base Excess ABG Hemoglobin ABG Sodium ABG Chloride ABG Glucose Oxyhemoglobin Sodium Potassium Chloride Carbon Dioxide BUN Creatinine Glucose POC Glucose 180 H 130 H 121 H Calcium Magnesium Ferritin Alkaline Phosphatase Lactate Dehydrogenase Total Creatine Kinase Troponin T C-Reactive Protein Albumin Triglycerides Cholesterol HDL Cholesterol Arterial Blood Glucose Arterial Blood Ionized Calcium Urine WBC (Auto) Salicylates Acetaminophen Hepatitis C Antibody 04/14/20 04/14/20 04/15/20 12:17 17:06 00:11 WBC RBC Hgb Hct RDW Seg Neuts % (Manual) Lymphocytes % (Manual) Basophils % (Manual) Seg Neutrophils # Man Lymphocytes # (Manual) Monocytes # (Manual) Eosinophils # (Manual) Basophils # (Manual) D-Dimer ABG pH POC ABG pCO2 POC ABG pO2 ABG pO2 ABG HCO3 ABG Base Excess ABG Hemoglobin ABG Sodium ABG Chloride ABG Glucose Oxyhemoglobin Sodium Potassium Chloride Carbon Dioxide BUN Creatinine Glucose POC Glucose 170 H 177 H 156 H Calcium Magnesium Ferritin Alkaline Phosphatase Lactate Dehydrogenase Total Creatine Kinase Troponin T C-Reactive Protein Albumin Triglycerides Cholesterol HDL Cholesterol Arterial Blood Glucose Arterial Blood Ionized Calcium Urine WBC (Auto) Salicylates Acetaminophen Hepatitis C Antibody 04/15/20 04/15/20 04/15/20 05:09 11:45 17:12 WBC RBC Hgb Hct RDW Seg Neuts % (Manual) Lymphocytes % (Manual) Basophils % (Manual) Seg Neutrophils # Man Lymphocytes # (Manual) Monocytes # (Manual) Eosinophils # (Manual) Basophils # (Manual) D-Dimer ABG pH POC ABG pCO2 POC ABG pO2 ABG pO2 ABG HCO3 ABG Base Excess ABG Hemoglobin ABG Sodium ABG Chloride ABG Glucose Oxyhemoglobin Sodium Potassium Chloride Carbon Dioxide BUN Creatinine Glucose POC Glucose 141 H 154 H 177 H Calcium Magnesium Ferritin Alkaline Phosphatase Lactate Dehydrogenase Total Creatine Kinase Troponin T C-Reactive Protein Albumin Triglycerides Cholesterol HDL Cholesterol Arterial Blood Glucose Arterial Blood Ionized Calcium Urine WBC (Auto) Salicylates Acetaminophen Hepatitis C Antibody 04/16/20 04/16/20 05:11 12:13 WBC RBC Hgb Hct RDW Seg Neuts % (Manual) Lymphocytes % (Manual) Basophils % (Manual) Seg Neutrophils # Man Lymphocytes # (Manual) Monocytes # (Manual) Eosinophils # (Manual) Basophils # (Manual) D-Dimer ABG pH POC ABG pCO2 POC ABG pO2 ABG pO2 ABG HCO3 ABG Base Excess ABG Hemoglobin ABG Sodium ABG Chloride ABG Glucose Oxyhemoglobin Sodium Potassium Chloride Carbon Dioxide BUN Creatinine Glucose POC Glucose 115 H 122 H Calcium Magnesium Ferritin Alkaline Phosphatase Lactate Dehydrogenase Total Creatine Kinase Troponin T C-Reactive Protein Albumin Triglycerides Cholesterol HDL Cholesterol Arterial Blood Glucose Arterial Blood Ionized Calcium Urine WBC (Auto) Salicylates Acetaminophen Hepatitis C Antibody Allied health notes reviewed: RT
--- NOTE | 2020-04-16 14:19 | XRay Report ---
ABDOMEN 1 VIEW INDICATION / CLINICAL INFORMATION: NGT placement. COMPARISON: [facility] from 04/07/2020 FINDINGS: TUBES / LINES: An NG tube terminates over the distal gastric body. BOWEL GAS PATTERN: No significant abnormality. FREE AIR / EXTRALUMINAL GAS: None seen. ADDITIONAL FINDINGS: There is severe generalized atherosclerosis. IMPRESSION: Satisfactory positioning of the NG tube. No acute abnormality. Signer Name: Marlon Keller MD Signed: 04/16/2020 2:15 PM Workstation Name: [id number]
[2020-04-16] MEDS: fentaNYL 100 MCG/2 ML INJ IV PRN (17:12)
[2020-04-16] MEDS: INSULIN GLARGINE 100 UNITS/ML SUB-Q SCH (17:35)
[2020-04-17] MEDS: INSULIN REGULAR, HUMAN 100 UNIT/ML 3ML VIAL SUB-Q SCH ×4 (01:18→17:24)
[2020-04-17 06:18] LABS: Hematocrit 28.7 % (30.3-42.9); Hemoglobin 9.3 gm/dl (10.1-14.3); Mean Corpuscular HGB Conc 32 % (30-34); Mean Corpuscular Volume 88 fl (79-97); Platelet Count 604 K/mm3 (140-440); Red Blood Count 3.26 M/mm3 (3.65-5.03); Red Cell Distribution Width 15.9 % (13.2-15.2)
[2020-04-17 06:33] LABS: Calcium 8.5 mg/dL (8.4-10.2)
[2020-04-17] MEDS: HEPARIN 5,000 UNIT/1 ML VIAL SUB-Q SCH ×2 (09:34→21:38)
[2020-04-17] MEDS: carvediloL 6.25 MG TAB PO SCH ×2 (09:34→21:37)
[2020-04-17] MEDS: FAMOTIDINE 20 MG TAB PO SCH (09:34)
[2020-04-17 10:02] LABS: Myelocytes # (Manual) 0.2 K/mm3; Total Cells Counted 100
[2020-04-17 10:04] LABS: Platelet Estimate Consistent w Auto; RBC Morphology Normal; Spherocytes Few
[2020-04-17] MEDS: INSULIN GLARGINE 100 UNITS/ML SUB-Q SCH (10:34)
--- NOTE | 2020-04-17 12:11 | Progress Note ---
Assessment and Plan Impression: * End stage renal disease * Sepsis * Positive blood cx - likely contaminant --Blood cx: staph epi (05/29 bottles - Apr 06) * Acute hypoxic respiratory failure * Acute encephalopathy * Acute ischemic stroke * UTI * Hx of COVID 19 --SARS Cov2 PCR negative Apr 07 * Metabolic acidosis Plan: * Continue hemodialysis on MWF, due today * UF as tolerated * Abx per ID * neurology notes reviewed * Vent management per CCM * Dose medications for renal function * AM labs Subjective Date of service: 04/17/20 Principal diagnosis: Ac on ch hypoxemic and hypercapnic resp failure; PUI COVID- 19 infxn; AMS Interval history: Intubated, not on pressors. Charting reviewed for 24 hour events. Objective - Exam Narrative Exam: General appearance: well-developed, well-nourished EENT: ATNC, other (ETT in place) Respiratory: Present: Other (coarse BS) Cardiology: regular, S1S2 Gastrointestinal: obese Integumentary: warm and dry Musculoskeletal: other (Bilateral BKA) - Vital Signs Vital signs: Vital Signs - 12hr 04/17/20 04/17/20 04/17/20 01:00 02:00 03:00 Temperature Pulse Rate 84 87 88 Pulse Rate [ From Monitor] Respiratory 16 14 16 Rate Blood Pressure 214/46 138/53 182/61 O2 Sat by Pulse 100 97 97 Oximetry 04/17/20 04/17/20 04/17/20 03:15 03:42 04:00 Temperature 98.9 F Pulse Rate 82 82 Pulse Rate [ 84 From Monitor] Respiratory 13 Rate Blood Pressure 149/62 179/47 O2 Sat by Pulse 97 97 Oximetry 04/17/20 04/17/20 04/17/20 05:00 06:02 07:00 Temperature Pulse Rate 82 89 83 Pulse Rate [ From Monitor] Respiratory 12 31 H 14 Rate Blood Pressure 163/46 132/93 161/49 O2 Sat by Pulse 95 100 Oximetry 04/17/20 04/17/20 04/17/20 07:37 08:00 09:00 Temperature 99.0 F Pulse Rate 82 97 H 85 Pulse Rate [ From Monitor] Respiratory 17 22 18 Rate Blood Pressure 175/49 164/51 159/47 O2 Sat by Pulse 100 100 98 Oximetry 04/17/20 04/17/20 04/17/20 09:34 10:00 10:41 Temperature Pulse Rate 92 H 97 H 83 Pulse Rate [ From Monitor] Respiratory 14 Rate Blood Pressure 171/60 181/58 179/48 O2 Sat by Pulse 99 Oximetry 04/17/20 11:30 Temperature Pulse Rate 79 Pulse Rate [ From Monitor] Respiratory 17 Rate Blood Pressure 158/51 O2 Sat by Pulse 100 Oximetry - Lab 04/17/20 05:44 04/17/20 05:44 Most recent lab results ABG pH 7.383 (7.320-7.450) 04/13/20 03:40 ABG pCO2 54.0 mm Hg 04/11/20 03:44 ABG pO2 73.4 mm Hg (80.0-90.0) L 04/11/20 03:44 ABG HCO3 26.7 mmol/L (20.0-26.0) H 04/11/20 03:44 ABG O2 Saturation 95.0 % (95.0-99.0) 04/11/20 03:44 Calcium 8.5 mg/dL (8.4-10.2) 04/17/20 05:44 Magnesium 2.50 mg/dL (1.7-2.3) H 04/06/20 14:30 Medications & Allergies - Medications Allergies/Adverse Reactions: Allergies carrot Allergy (Verified 07/28/19 12:30) Hives erythromycin base Allergy (Verified 07/30/19 11:26) Hives latex Allergy (Verified 02/18/19 13:20) Rash peas Allergy (Verified 12/20/19 12:37) Hives vancomycin Allergy (Verified 12/31/19 15:46) Hives Home Medications: Home Medications Medication Instructions Recorded Confirmed Last Taken Type Aripiprazole 5 mg PO DAILY 02/18/19 04/06/20 02/17/19 History Benadryl CAP 25 mg PO Q8H PRN 02/18/19 04/06/20 02/17/19 History Calcium Acetate 667 mg PO TIDWM 02/18/19 04/06/20 02/17/19 History Carvedilol 6.25 mg PO Q12H 02/18/19 04/06/20 02/17/19 History Colace CAP 100 mg PO Q12H PRN 02/18/19 04/06/20 02/17/19 History Esomeprazole Magnesium 40 mg PO QDAC 02/18/19 04/06/20 02/17/19 History HumaLOG 10 units SUB-Q TIDWM 02/18/19 04/06/20 02/17/19 History Insulin Detemir (Nf) [Levemir See Protocol SQ QHS 02/18/19 04/06/20 02/17/19 History Flextouch (Nf)] Losartan Potassium 50 mg PO DAILY 02/18/19 04/06/20 02/17/19 History Lyrica 75 mg PO Q12H 02/18/19 04/06/20 02/17/19 History Melatonin 6 mg PO QHS 02/18/19 04/06/20 02/17/19 History Senna 17.2 mg PO QHS PRN 02/18/19 04/06/20 02/17/19 History Venlafaxine HCl [Venlafaxine HCl 150 mg PO QDAC 02/18/19 04/06/20 02/17/19 History ER] Vitamin C 250 mg PO DAILY 02/18/19 04/06/20 02/17/19 History ZyrTEC 10mg cap 10 mg PO DAILY 02/18/19 04/06/20 02/17/19 History Calcium Acetate [Phoslo] 667 mg PO TIDWM capsule 12/22/19 04/06/20 Unknown Rx Fe Fumarate/FA/Mv, Min Comb#15 1 each PO QDAY capsule 12/22/19 04/06/20 Unknown Rx [Hemocyte Plus] Albuterol Mdi (or & Nicu Only) 2.5 puff IH Q4HRT PRN inha 01/12/20 04/06/20 Unknown Rx [ProAir HFA Inhaler] dexAMETHasone [Decadron] 6 mg PO Q12HR #10 tablet 01/12/20 04/06/20 Unknown Rx oxyCODONE 5 mg PO Q6H PRN #10 01/12/20 04/06/20 Unknown Rx Active Medications: Generic Name Dose Route Start Last Admin Trade Name Freq PRN Reason Stop Dose Admin Acetaminophen 650 mg 04/06/20 16:39 Tylenol PO Q6H PRN Pain, Mild (1-3) Lipase/Protease/Amylase 1 each 04/07/20 10:23 Pancreaze 10,500 Unit FEEDTUBE PRN PRN For Clogged Feeding Tube Carvedilol 6.25 mg 04/13/20 22:00 04/17/20 09:34 Coreg PO 6.25 mg BID NOEL Administration Dextrose 50 ml 04/09/20 16:30 D50w (25gm) Syringe IV Q30MIN PRN Hypoglycemia Protocol Famotidine 20 mg 04/07/20 10:00 04/17/20 09:34 Pepcid PO 20 mg QDAY NOEL Administration Fentanyl 50 mcg 04/06/20 13:34 04/16/20 21:34 Sublimaze IV 50 mcg Q10MIN PRN Administration ANALGESIA Fentanyl 12.5 mcg 04/16/20 15:24 04/16/20 17:12 Sublimaze IV 12.5 mcg Q4H PRN Administration RESTLESSNESS Heparin Sodium (Porcine) 5,000 unit 04/06/20 22:00 04/17/20 09:34 Heparin SUB-Q 5,000 unit Q12HR NOEL Administration Hydromorphone HCl 0.25 mg 04/06/20 16:39 04/17/20 03:59 Dilaudid IV 0.25 mg Q4H PRN Administration Pain, Moderate (4-6) Hydrophilic Ointment 1 applic 04/06/20 13:34 Vaseline Lip Therapy TP Q2HR PRN Dry Lips Fentanyl Citrate 2,000 mcg in 100 mls @ 5.505 mls/hr 04/06/20 14:00 04/16/20 14:45 Fentanyl Drip Premix IV 0 mcg/kg/hr TITR NOEL 0 mls/hr Titration Protocol 1 MCG/KG/HR Sodium Chloride 250 mls @ 10 mls/hr 04/07/20 10:03 04/09/20 05:38 Nacl 0.9% 250ml IV 10 mls/hr DIRECT PRN Administration FOR ABX Sodium Chloride 100 mls @ 999 mls/hr 04/07/20 17:00 Nacl 0.9% IV SPRING PRN Hypotension Insulin Glargine 10 units 04/17/20 10:00 04/17/20 10:34 Lantus SUB-Q 10 units Q24HR NOEL Administration Insulin Human Regular 0 unit 04/09/20 18:00 04/17/20 05:22 Humulin R SUB-Q Not Given Q6H [facility] Protocol Labetalol HCl 10 mg 04/08/20 17:17 04/17/20 10:41 Labetalol IV 10 mg Q4H PRN Administration Blood Pressure Multi-Ingred Cream/Lotion/Oil/Oint 1 applic 04/06/20 13:34 Artificial Tears Ophth Oint OU Q4HR PRN Dry Eye(s) Simple Syrup 15 ml 04/07/20 10:23 Simple Syrup FEEDTUBE PRN PRN Hypoglycemia Simple Syrup 30 ml 04/07/20 10:23 Simple Syrup FEEDTUBE PRN PRN Hypoglycemia Sodium Bicarbonate 325 mg 04/07/20 10:23 Sodium Bicarbonate FEEDTUBE PRN PRN For Clogged Feeding Tube Sodium Chloride 10 ml 04/06/20 22:00 04/17/20 10:41 Sodium Chloride Flush Syringe 10 Ml IV 10 ml BID NOEL Administration Sodium Chloride 10 ml 04/06/20 16:32 Sodium Chloride Flush Syringe 10 Ml IV PRN PRN LINE FLUSH
--- NOTE | 2020-04-17 12:39 | Progress Note ---
Assessment and Plan Acute on chronic hypoxemic and hypercapnic respiratory failure. Coronavirus-19 infection. Acute encephalopathy. Bibasilar atelectasis. End-stage renal disease, on dialysis. Morbid obesity. History of a cerebrovascular accident. Diabetes type 2. History of chronic obstructive pulmonary disease. History of anemia. - ETT day # 12-13 - fentanyl drip stopped (use Fentanyl 12.5 mics IV q4h prn) - d/c dilaudid - rest on AC overnight - tentative trial of extubation ion am if passes 2 hour SBT - s/p AB's per ID rec's (Merrem) - continue care as below otherwise; - keep set rate at 12/min - continue to wean supplemental oxygen for target O2 sat's > 90% acutely - VAP bundle addressed - continue lung protective strategies - continue bronchodilators with pulmonary hygiene per RT - wean per pulmonary driven protocols otherwise - continue accuchecks with glycemic control per SSI (While critically ill target blood glucose of 140-180 mg/dL; avoid hypoglycemia) - continue fentanyl for sedation / analgesia - sedation prn for target RASS 0 to -1 - avoid nephrotoxins, renally dose all medications - continue to avoid benzodiazepine's, reduce the possibility of delirium - prn analgesia per CPOT score - Maintenance of sleep-wake cycle, avoid delirium - continue enteral nutritional support at goal rate as tolerated - G.I. & VTE prophylaxis - PT/OT/ROM exercises - continue mobility protocols for pressure ulcer prophylaxis - Monitor hemodynamics closely - continue other care per attending / other consultants - discharge planning ongoing concurrently .... Re-evaluate in am & prn CONDITION: CRITICAL PROGNOSIS: GUARDED CODE STATUS: FULL CODE The high probability of a clinically significant, sudden or life-threatening deterioration of the [respiratory, cardiovascular, renal & neurologic] system(s) required my full and direct attention, intervention and personal management. The aggregate critical care time was [35] minutes without overlap. Time includes spent on; [x] Data Review and interpretation [x] Patient assessment and monitoring of vital signs [x] Documentation [x] Medication orders and management Subjective Date of service: 04/17/20 Principal diagnosis: Ac on ch hypoxemic and hypercapnic resp failure; PUI COVID- 19 infxn; AMS Interval history: Patient is seen today for: Acute on chronic hypoxemic and hypercapnic resp failure; PUI Coronavirus-19 infection; Acute encephalopathy; ESRD; Morbid obesity; DM II; AE-COPD Seen and examined at bedside; 24hour events reviewed; nursing and respiratory care staff consulted; no adverse overnight events reported to me; resting peacefully in bed; remains on MVS; failing SBT's with prolonged apnea's yesterday and sedatives held; denies N/V/F/C; on PSV 02/28 and tolerating well so far today Objective Vital Signs - 12hr 04/17/20 04/17/20 04/17/20 01:00 02:00 03:00 Temperature Pulse Rate 84 87 88 Pulse Rate [ From Monitor] Respiratory 16 14 16 Rate Blood Pressure 214/46 138/53 182/61 O2 Sat by Pulse 100 97 97 Oximetry 04/17/20 04/17/20 04/17/20 03:15 03:42 04:00 Temperature 98.9 F Pulse Rate 82 82 Pulse Rate [ 84 From Monitor] Respiratory 13 Rate Blood Pressure 149/62 179/47 O2 Sat by Pulse 97 97 Oximetry 04/17/20 04/17/20 04/17/20 05:00 06:02 07:00 Temperature Pulse Rate 82 89 83 Pulse Rate [ From Monitor] Respiratory 12 31 H 14 Rate Blood Pressure 163/46 132/93 161/49 O2 Sat by Pulse 95 100 Oximetry 04/17/20 04/17/20 04/17/20 07:37 08:00 09:00 Temperature 99.0 F Pulse Rate 82 97 H 85 Pulse Rate [ From Monitor] Respiratory 17 22 18 Rate Blood Pressure 175/49 164/51 159/47 O2 Sat by Pulse 100 100 98 Oximetry 04/17/20 04/17/20 04/17/20 09:34 10:00 10:41 Temperature Pulse Rate 92 H 97 H 83 Pulse Rate [ From Monitor] Respiratory 14 Rate Blood Pressure 171/60 181/58 179/48 O2 Sat by Pulse 99 Oximetry 04/17/20 11:30 Temperature Pulse Rate 79 Pulse Rate [ From Monitor] Respiratory 17 Rate Blood Pressure 158/51 O2 Sat by Pulse 100 Oximetry Constitutional: no acute distress, other (middle aged obese female without increased respiratory effort at rest) Eyes: non-icteric ENT: oropharynx moist, other (ETT 23 cm PARRISH) Neck: supple, no lymphadenopathy, no JVD Effort: mildly labored Ascultation: Bilateral: diminished breath sounds, rhonchi Percussion: Bilateral: not dull Cardiovascular: regular rate and rhythm Gastrointestinal: normoactive bowel sounds, soft, non-tender, non-distended (protuberant) Integumentary: erythema (right BKA stump) Extremities: no cyanosis, no ischemia or petechiae, edema (trace) Neurologic: non-focal exam (grossly), pupils equal and round, unable to assess Psychiatric: other (unable to assess re: AMS) CBC and BMP: 04/17/20 05:44 04/17/20 05:44 ABG, PT/INR, D-dimer: ABG ABG pH 7.383 (7.320-7.450) 04/13/20 03:40 POC ABG pCO2 42.4 mmHg (32.0-48.0) 04/13/20 03:40 ABG pCO2 54.0 mm Hg 04/11/20 03:44 POC ABG pO2 95.7 mmHg (83-108) 04/13/20 03:40 ABG pO2 73.4 mm Hg (80.0-90.0) L 04/11/20 03:44 POC ABG HCO3 24.7 04/13/20 03:40 ABG O2 Saturation 95.0 % (95.0-99.0) 04/11/20 03:44 PT/INR, D-dimer PT 13.8 Sec. (12.2-14.9) 04/06/20 14:30 INR 1.04 (0.87-1.13) 04/06/20 14:30 D-Dimer 1063.66 ng/mlDDU (0-234) H 04/07/20 09:34 Abnormal lab findings: Abnormal Labs 04/06/20 04/06/20 04/06/20 13:34 14:30 14:30 WBC 19.2 H RBC Hgb Hct RDW 17.8 H Plt Count Seg Neuts % (Manual) 90.0 H Lymphocytes % (Manual) 4.0 L Basophils % (Manual) Seg Neutrophils # Man 17.3 H Lymphocytes # (Manual) 0.8 L Monocytes # (Manual) Eosinophils # (Manual) Basophils # (Manual) D-Dimer ABG pH POC ABG pCO2 POC ABG pO2 ABG pO2 ABG HCO3 ABG Base Excess ABG Hemoglobin ABG Sodium ABG Chloride ABG Glucose Oxyhemoglobin Sodium Potassium 5.2 H Chloride Carbon Dioxide 17 L BUN 53 H Creatinine 7.8 H Glucose 144 H POC Glucose Calcium Magnesium Ferritin Alkaline Phosphatase 738 H Lactate Dehydrogenase Total Creatine Kinase 23 L Troponin T 0.224 H* C-Reactive Protein Albumin 3.1 L Triglycerides 342 H Cholesterol 223 H HDL Cholesterol 35 L Arterial Blood Glucose Arterial Blood Ionized Calcium Urine WBC (Auto) > 182.0 H Salicylates Acetaminophen Hepatitis C Antibody 04/06/20 04/06/20 04/06/20 14:30 14:30 14:30 WBC RBC Hgb Hct RDW Plt Count Seg Neuts % (Manual) Lymphocytes % (Manual) Basophils % (Manual) Seg Neutrophils # Man Lymphocytes # (Manual) Monocytes # (Manual) Eosinophils # (Manual) Basophils # (Manual) D-Dimer ABG pH POC ABG pCO2 POC ABG pO2 ABG pO2 ABG HCO3 ABG Base Excess ABG Hemoglobin ABG Sodium ABG Chloride ABG Glucose Oxyhemoglobin Sodium Potassium Chloride Carbon Dioxide BUN Creatinine Glucose POC Glucose Calcium Magnesium 2.50 H Ferritin Alkaline Phosphatase Lactate Dehydrogenase Total Creatine Kinase 24 L Troponin T C-Reactive Protein Albumin Triglycerides Cholesterol HDL Cholesterol Arterial Blood Glucose Arterial Blood Ionized Calcium Urine WBC (Auto) Salicylates < 0.3 L Acetaminophen 5.0 L Hepatitis C Antibody 04/06/20 04/06/20 04/07/20 14:39 20:00 00:48 WBC RBC Hgb Hct RDW Plt Count Seg Neuts % (Manual) Lymphocytes % (Manual) Basophils % (Manual) Seg Neutrophils # Man Lymphocytes # (Manual) Monocytes # (Manual) Eosinophils # (Manual) Basophils # (Manual) D-Dimer ABG pH 7.281 L 7.306 L POC ABG pCO2 POC ABG pO2 78.0 L ABG pO2 133.8 H ABG HCO3 18.3 L ABG Base Excess -7.8 L ABG Hemoglobin 10.8 L 10.8 L ABG Sodium ABG Chloride 108.0 H ABG Glucose Oxyhemoglobin Sodium Potassium Chloride Carbon Dioxide BUN Creatinine Glucose POC Glucose 69 L Calcium Magnesium Ferritin Alkaline Phosphatase Lactate Dehydrogenase Total Creatine Kinase Troponin T C-Reactive Protein Albumin Triglycerides Cholesterol HDL Cholesterol Arterial Blood Glucose Arterial Blood Ionized Calcium Urine WBC (Auto) Salicylates Acetaminophen Hepatitis C Antibody 04/07/20 04/07/20 04/07/20 09:34 09:34 09:34 WBC RBC Hgb Hct RDW Plt Count Seg Neuts % (Manual) Lymphocytes % (Manual) Basophils % (Manual) Seg Neutrophils # Man Lymphocytes # (Manual) Monocytes # (Manual) Eosinophils # (Manual) Basophils # (Manual) D-Dimer 1063.66 H ABG pH POC ABG pCO2 POC ABG pO2 ABG pO2 ABG HCO3 ABG Base Excess ABG Hemoglobin ABG Sodium ABG Chloride ABG Glucose Oxyhemoglobin Sodium Potassium Chloride Carbon Dioxide BUN Creatinine Glucose POC Glucose Calcium Magnesium Ferritin 743.0 H Alkaline Phosphatase Lactate Dehydrogenase 195 H Total Creatine Kinase Troponin T C-Reactive Protein 7.50 H Albumin Triglycerides Cholesterol HDL Cholesterol Arterial Blood Glucose Arterial Blood Ionized Calcium Urine WBC (Auto) Salicylates Acetaminophen Hepatitis C Antibody 04/07/20 04/07/20 04/07/20 10:01 16:38 23:51 WBC RBC Hgb Hct RDW Plt Count Seg Neuts % (Manual) Lymphocytes % (Manual) Basophils % (Manual) Seg Neutrophils # Man Lymphocytes # (Manual) Monocytes # (Manual) Eosinophils # (Manual) Basophils # (Manual) D-Dimer ABG pH POC ABG pCO2 POC ABG pO2 79.8 L ABG pO2 ABG HCO3 ABG Base Excess ABG Hemoglobin 10.3 L ABG Sodium ABG Chloride 109.0 H ABG Glucose Oxyhemoglobin Sodium Potassium Chloride Carbon Dioxide BUN Creatinine Glucose POC Glucose 117 H Calcium Magnesium Ferritin Alkaline Phosphatase Lactate Dehydrogenase Total Creatine Kinase Troponin T C-Reactive Protein Albumin Triglycerides Cholesterol HDL Cholesterol Arterial Blood Glucose Arterial Blood Ionized Calcium 4.5 L Urine WBC (Auto) Salicylates Acetaminophen Hepatitis C Antibody Reactive A 04/08/20 04/08/20 04/08/20 04:58 12:48 17:03 WBC RBC Hgb Hct RDW Plt Count Seg Neuts % (Manual) Lymphocytes % (Manual) Basophils % (Manual) Seg Neutrophils # Man Lymphocytes # (Manual) Monocytes # (Manual) Eosinophils # (Manual) Basophils # (Manual) D-Dimer ABG pH POC ABG pCO2 POC ABG pO2 ABG pO2 ABG HCO3 ABG Base Excess ABG Hemoglobin ABG Sodium ABG Chloride ABG Glucose Oxyhemoglobin Sodium Potassium Chloride Carbon Dioxide BUN Creatinine Glucose POC Glucose 129 H 155 H 201 H Calcium Magnesium Ferritin Alkaline Phosphatase Lactate Dehydrogenase Total Creatine Kinase Troponin T C-Reactive Protein Albumin Triglycerides Cholesterol HDL Cholesterol Arterial Blood Glucose Arterial Blood Ionized Calcium Urine WBC (Auto) Salicylates Acetaminophen Hepatitis C Antibody 11/14/20 11/14/20 11/15/20 23:49 Unknown 05:31 WBC RBC Hgb Hct RDW Plt Count Seg Neuts % (Manual) Lymphocytes % (Manual) Basophils % (Manual) Seg Neutrophils # Man Lymphocytes # (Manual) Monocytes # (Manual) Eosinophils # (Manual) Basophils # (Manual) D-Dimer ABG pH 7.349 L POC ABG pCO2 POC ABG pO2 ABG pO2 117.3 H ABG HCO3 ABG Base Excess ABG Hemoglobin 7.4 L ABG Sodium ABG Chloride ABG Glucose Oxyhemoglobin Sodium Potassium Chloride Carbon Dioxide BUN Creatinine Glucose POC Glucose 178 H 248 H Calcium Magnesium Ferritin Alkaline Phosphatase Lactate Dehydrogenase Total Creatine Kinase Troponin T C-Reactive Protein Albumin Triglycerides Cholesterol HDL Cholesterol Arterial Blood Glucose Arterial Blood Ionized Calcium Urine WBC (Auto) Salicylates Acetaminophen Hepatitis C Antibody 04/09/20 04/09/20 04/09/20 11:39 17:35 Unknown WBC RBC Hgb Hct RDW Plt Count Seg Neuts % (Manual) Lymphocytes % (Manual) Basophils % (Manual) Seg Neutrophils # Man Lymphocytes # (Manual) Monocytes # (Manual) Eosinophils # (Manual) Basophils # (Manual) D-Dimer ABG pH POC ABG pCO2 51.6 H POC ABG pO2 ABG pO2 ABG HCO3 ABG Base Excess ABG Hemoglobin 11.4 L ABG Sodium 130.1 L ABG Chloride ABG Glucose 249 H Oxyhemoglobin Sodium Potassium Chloride Carbon Dioxide BUN Creatinine Glucose POC Glucose 319 H 254 H Calcium Magnesium Ferritin Alkaline Phosphatase Lactate Dehydrogenase Total Creatine Kinase Troponin T C-Reactive Protein Albumin Triglycerides Cholesterol HDL Cholesterol Arterial Blood Glucose 249 H Arterial Blood Ionized Calcium 4.1 L Urine WBC (Auto) Salicylates Acetaminophen Hepatitis C Antibody 04/10/20 04/10/20 04/10/20 00:00 03:15 05:49 WBC RBC Hgb Hct RDW Plt Count Seg Neuts % (Manual) Lymphocytes % (Manual) Basophils % (Manual) Seg Neutrophils # Man Lymphocytes # (Manual) Monocytes # (Manual) Eosinophils # (Manual) Basophils # (Manual) D-Dimer ABG pH POC ABG pCO2 48.2 H POC ABG pO2 ABG pO2 ABG HCO3 ABG Base Excess ABG Hemoglobin 9.9 L ABG Sodium 135.4 L ABG Chloride ABG Glucose 215 H Oxyhemoglobin Sodium Potassium Chloride Carbon Dioxide BUN Creatinine Glucose POC Glucose 194 H 221 H Calcium Magnesium Ferritin Alkaline Phosphatase Lactate Dehydrogenase Total Creatine Kinase Troponin T C-Reactive Protein Albumin Triglycerides Cholesterol HDL Cholesterol Arterial Blood Glucose 215 H Arterial Blood Ionized Calcium 4.5 L Urine WBC (Auto) Salicylates Acetaminophen Hepatitis C Antibody 04/10/20 04/10/20 04/10/20 08:18 08:18 12:22 WBC 28.9 H RBC 3.38 L Hgb 9.5 L Hct 30.1 L RDW 16.9 H Plt Count Seg Neuts % (Manual) 87.0 H Lymphocytes % (Manual) 9.0 L Basophils % (Manual) 2.0 H Seg Neutrophils # Man 25.1 H Lymphocytes # (Manual) Monocytes # (Manual) Eosinophils # (Manual) Basophils # (Manual) 0.6 H D-Dimer ABG pH POC ABG pCO2 POC ABG pO2 ABG pO2 ABG HCO3 ABG Base Excess ABG Hemoglobin ABG Sodium ABG Chloride ABG Glucose Oxyhemoglobin Sodium 134 L Potassium 3.5 L D Chloride 94.9 L Carbon Dioxide BUN 38 H Creatinine 5.5 H Glucose 230 H POC Glucose 218 H Calcium Magnesium Ferritin Alkaline Phosphatase Lactate Dehydrogenase Total Creatine Kinase Troponin T C-Reactive Protein Albumin Triglycerides Cholesterol HDL Cholesterol Arterial Blood Glucose Arterial Blood Ionized Calcium Urine WBC (Auto) Salicylates Acetaminophen Hepatitis C Antibody 04/10/20 04/10/20 04/10/20 17:27 18:08 23:29 WBC RBC Hgb Hct RDW Plt Count Seg Neuts % (Manual) Lymphocytes % (Manual) Basophils % (Manual) Seg Neutrophils # Man Lymphocytes # (Manual) Monocytes # (Manual) Eosinophils # (Manual) Basophils # (Manual) D-Dimer ABG pH POC ABG pCO2 POC ABG pO2 ABG pO2 ABG HCO3 ABG Base Excess ABG Hemoglobin ABG Sodium ABG Chloride ABG Glucose Oxyhemoglobin Sodium Potassium Chloride Carbon Dioxide BUN Creatinine Glucose POC Glucose 218 H 223 H 166 H Calcium Magnesium Ferritin Alkaline Phosphatase Lactate Dehydrogenase Total Creatine Kinase Troponin T C-Reactive Protein Albumin Triglycerides Cholesterol HDL Cholesterol Arterial Blood Glucose Arterial Blood Ionized Calcium Urine WBC (Auto) Salicylates Acetaminophen Hepatitis C Antibody 04/11/20 04/11/20 04/11/20 03:44 05:28 07:39 WBC 26.9 H RBC 3.32 L Hgb 9.4 L Hct 29.5 L RDW 17.2 H Plt Count Seg Neuts % (Manual) 83.0 H Lymphocytes % (Manual) 10.0 L Basophils % (Manual) Seg Neutrophils # Man 22.3 H Lymphocytes # (Manual) Monocytes # (Manual) 1.1 H Eosinophils # (Manual) 0.5 H Basophils # (Manual) D-Dimer ABG pH 7.313 L POC ABG pCO2 POC ABG pO2 ABG pO2 73.4 L ABG HCO3 26.7 H ABG Base Excess ABG Hemoglobin 11.0 L ABG Sodium ABG Chloride ABG Glucose Oxyhemoglobin 92.8 L Sodium Potassium Chloride Carbon Dioxide BUN Creatinine Glucose POC Glucose 164 H Calcium Magnesium Ferritin Alkaline Phosphatase Lactate Dehydrogenase Total Creatine Kinase Troponin T C-Reactive Protein Albumin Triglycerides Cholesterol HDL Cholesterol Arterial Blood Glucose Arterial Blood Ionized Calcium Urine WBC (Auto) Salicylates Acetaminophen Hepatitis C Antibody 04/11/20 04/11/20 04/11/20 07:39 12:25 19:02 WBC RBC Hgb Hct RDW Plt Count Seg Neuts % (Manual) Lymphocytes % (Manual) Basophils % (Manual) Seg Neutrophils # Man Lymphocytes # (Manual) Monocytes # (Manual) Eosinophils # (Manual) Basophils # (Manual) D-Dimer ABG pH POC ABG pCO2 POC ABG pO2 ABG pO2 ABG HCO3 ABG Base Excess ABG Hemoglobin ABG Sodium ABG Chloride ABG Glucose Oxyhemoglobin Sodium Potassium Chloride Carbon Dioxide BUN 48 H Creatinine 6.1 H Glucose 122 H POC Glucose 175 H 175 H Calcium 8.3 L Magnesium Ferritin Alkaline Phosphatase Lactate Dehydrogenase Total Creatine Kinase Troponin T C-Reactive Protein Albumin Triglycerides Cholesterol HDL Cholesterol Arterial Blood Glucose Arterial Blood Ionized Calcium Urine WBC (Auto) Salicylates Acetaminophen Hepatitis C Antibody 04/12/20 04/12/20 04/12/20 00:02 05:51 08:14 WBC 28.0 H RBC 3.29 L Hgb 9.5 L Hct 29.1 L RDW 16.9 H Plt Count Seg Neuts % (Manual) 88.0 H Lymphocytes % (Manual) 7.0 L Basophils % (Manual) Seg Neutrophils # Man 24.6 H Lymphocytes # (Manual) Monocytes # (Manual) Eosinophils # (Manual) 0.6 H Basophils # (Manual) D-Dimer ABG pH POC ABG pCO2 POC ABG pO2 ABG pO2 ABG HCO3 ABG Base Excess ABG Hemoglobin ABG Sodium ABG Chloride ABG Glucose Oxyhemoglobin Sodium Potassium Chloride Carbon Dioxide BUN Creatinine Glucose POC Glucose 146 H 151 H Calcium Magnesium Ferritin Alkaline Phosphatase Lactate Dehydrogenase Total Creatine Kinase Troponin T C-Reactive Protein Albumin Triglycerides Cholesterol HDL Cholesterol Arterial Blood Glucose Arterial Blood Ionized Calcium Urine WBC (Auto) Salicylates Acetaminophen Hepatitis C Antibody 04/12/20 04/12/20 04/12/20 08:14 12:21 17:26 WBC RBC Hgb Hct RDW Plt Count Seg Neuts % (Manual) Lymphocytes % (Manual) Basophils % (Manual) Seg Neutrophils # Man Lymphocytes # (Manual) Monocytes # (Manual) Eosinophils # (Manual) Basophils # (Manual) D-Dimer ABG pH POC ABG pCO2 POC ABG pO2 ABG pO2 ABG HCO3 ABG Base Excess ABG Hemoglobin ABG Sodium ABG Chloride ABG Glucose Oxyhemoglobin Sodium Potassium 3.3 L Chloride Carbon Dioxide BUN 32 H Creatinine 4.3 H Glucose 188 H POC Glucose 196 H 235 H Calcium Magnesium Ferritin Alkaline Phosphatase Lactate Dehydrogenase Total Creatine Kinase Troponin T C-Reactive Protein Albumin Triglycerides Cholesterol HDL Cholesterol Arterial Blood Glucose Arterial Blood Ionized Calcium Urine WBC (Auto) Salicylates Acetaminophen Hepatitis C Antibody 04/12/20 04/13/20 04/13/20 23:34 03:40 05:33 WBC RBC Hgb Hct RDW Plt Count Seg Neuts % (Manual) Lymphocytes % (Manual) Basophils % (Manual) Seg Neutrophils # Man Lymphocytes # (Manual) Monocytes # (Manual) Eosinophils # (Manual) Basophils # (Manual) D-Dimer ABG pH POC ABG pCO2 POC ABG pO2 ABG pO2 ABG HCO3 ABG Base Excess ABG Hemoglobin 9.4 L ABG Sodium 133.6 L ABG Chloride ABG Glucose 172 H Oxyhemoglobin Sodium Potassium Chloride Carbon Dioxide BUN Creatinine Glucose POC Glucose 171 H 167 H Calcium Magnesium Ferritin Alkaline Phosphatase Lactate Dehydrogenase Total Creatine Kinase Troponin T C-Reactive Protein Albumin Triglycerides Cholesterol HDL Cholesterol Arterial Blood Glucose 172 H Arterial Blood Ionized Calcium Urine WBC (Auto) Salicylates Acetaminophen Hepatitis C Antibody 04/13/20 04/13/20 04/13/20 07:49 09:09 11:34 WBC RBC Hgb Hct RDW Plt Count Seg Neuts % (Manual) Lymphocytes % (Manual) Basophils % (Manual) Seg Neutrophils # Man Lymphocytes # (Manual) Monocytes # (Manual) Eosinophils # (Manual) Basophils # (Manual) D-Dimer ABG pH POC ABG pCO2 POC ABG pO2 ABG pO2 ABG HCO3 ABG Base Excess ABG Hemoglobin ABG Sodium ABG Chloride ABG Glucose Oxyhemoglobin Sodium Potassium Chloride Carbon Dioxide 31 H BUN 44 H 43 H Creatinine 5.0 H 4.9 H Glucose 164 H 164 H POC Glucose 155 H Calcium Magnesium Ferritin Alkaline Phosphatase Lactate Dehydrogenase Total Creatine Kinase Troponin T C-Reactive Protein Albumin Triglycerides Cholesterol HDL Cholesterol Arterial Blood Glucose Arterial Blood Ionized Calcium Urine WBC (Auto) Salicylates Acetaminophen Hepatitis C Antibody 04/13/20 04/13/20 04/14/20 17:38 23:40 04:35 WBC RBC Hgb Hct RDW Plt Count Seg Neuts % (Manual) Lymphocytes % (Manual) Basophils % (Manual) Seg Neutrophils # Man Lymphocytes # (Manual) Monocytes # (Manual) Eosinophils # (Manual) Basophils # (Manual) D-Dimer ABG pH POC ABG pCO2 POC ABG pO2 ABG pO2 ABG HCO3 ABG Base Excess ABG Hemoglobin ABG Sodium ABG Chloride ABG Glucose Oxyhemoglobin Sodium Potassium Chloride Carbon Dioxide BUN Creatinine Glucose POC Glucose 180 H 130 H 121 H Calcium Magnesium Ferritin Alkaline Phosphatase Lactate Dehydrogenase Total Creatine Kinase Troponin T C-Reactive Protein Albumin Triglycerides Cholesterol HDL Cholesterol Arterial Blood Glucose Arterial Blood Ionized Calcium Urine WBC (Auto) Salicylates Acetaminophen Hepatitis C Antibody 04/14/20 04/14/20 04/15/20 12:17 17:06 00:11 WBC RBC Hgb Hct RDW Plt Count Seg Neuts % (Manual) Lymphocytes % (Manual) Basophils % (Manual) Seg Neutrophils # Man Lymphocytes # (Manual) Monocytes # (Manual) Eosinophils # (Manual) Basophils # (Manual) D-Dimer ABG pH POC ABG pCO2 POC ABG pO2 ABG pO2 ABG HCO3 ABG Base Excess ABG Hemoglobin ABG Sodium ABG Chloride ABG Glucose Oxyhemoglobin Sodium Potassium Chloride Carbon Dioxide BUN Creatinine Glucose POC Glucose 170 H 177 H 156 H Calcium Magnesium Ferritin Alkaline Phosphatase Lactate Dehydrogenase Total Creatine Kinase Troponin T C-Reactive Protein Albumin Triglycerides Cholesterol HDL Cholesterol Arterial Blood Glucose Arterial Blood Ionized Calcium Urine WBC (Auto) Salicylates Acetaminophen Hepatitis C Antibody 04/15/20 04/15/20 04/15/20 05:09 11:45 17:12 WBC RBC Hgb Hct RDW Plt Count Seg Neuts % (Manual) Lymphocytes % (Manual) Basophils % (Manual) Seg Neutrophils # Man Lymphocytes # (Manual) Monocytes # (Manual) Eosinophils # (Manual) Basophils # (Manual) D-Dimer ABG pH POC ABG pCO2 POC ABG pO2 ABG pO2 ABG HCO3 ABG Base Excess ABG Hemoglobin ABG Sodium ABG Chloride ABG Glucose Oxyhemoglobin Sodium Potassium Chloride Carbon Dioxide BUN Creatinine Glucose POC Glucose 141 H 154 H 177 H Calcium Magnesium Ferritin Alkaline Phosphatase Lactate Dehydrogenase Total Creatine Kinase Troponin T C-Reactive Protein Albumin Triglycerides Cholesterol HDL Cholesterol Arterial Blood Glucose Arterial Blood Ionized Calcium Urine WBC (Auto) Salicylates Acetaminophen Hepatitis C Antibody 04/16/20 04/16/20 04/16/20 05:11 12:13 17:31 WBC RBC Hgb Hct RDW Plt Count Seg Neuts % (Manual) Lymphocytes % (Manual) Basophils % (Manual) Seg Neutrophils # Man Lymphocytes # (Manual) Monocytes # (Manual) Eosinophils # (Manual) Basophils # (Manual) D-Dimer ABG pH POC ABG pCO2 POC ABG pO2 ABG pO2 ABG HCO3 ABG Base Excess ABG Hemoglobin ABG Sodium ABG Chloride ABG Glucose Oxyhemoglobin Sodium Potassium Chloride Carbon Dioxide BUN Creatinine Glucose POC Glucose 115 H 122 H 188 H Calcium Magnesium Ferritin Alkaline Phosphatase Lactate Dehydrogenase Total Creatine Kinase Troponin T C-Reactive Protein Albumin Triglycerides Cholesterol HDL Cholesterol Arterial Blood Glucose Arterial Blood Ionized Calcium Urine WBC (Auto) Salicylates Acetaminophen Hepatitis C Antibody 04/16/20 04/17/20 04/17/20 23:47 05:44 05:44 WBC 19.5 H RBC 3.26 L Hgb 9.3 L Hct 28.7 L RDW 15.9 H Plt Count 604 H Seg Neuts % (Manual) 81.0 H Lymphocytes % (Manual) 11.0 L Basophils % (Manual) Seg Neutrophils # Man 15.8 H Lymphocytes # (Manual) Monocytes # (Manual) Eosinophils # (Manual) 0.6 H Basophils # (Manual) 0.2 H D-Dimer ABG pH POC ABG pCO2 POC ABG pO2 ABG pO2 ABG HCO3 ABG Base Excess ABG Hemoglobin ABG Sodium ABG Chloride ABG Glucose Oxyhemoglobin Sodium Potassium Chloride Carbon Dioxide BUN 28 H Creatinine 3.3 H Glucose 130 H POC Glucose 156 H Calcium Magnesium Ferritin Alkaline Phosphatase Lactate Dehydrogenase Total Creatine Kinase Troponin T C-Reactive Protein Albumin Triglycerides Cholesterol HDL Cholesterol Arterial Blood Glucose Arterial Blood Ionized Calcium Urine WBC (Auto) Salicylates Acetaminophen Hepatitis C Antibody Chest x-ray: other (none today) Allied health notes reviewed: nursing
--- NOTE | 2020-04-17 17:40 | Progress Note ---
Assessment and Plan Assessment and plan: 49 years old female with history of asthma, hypertension, end-stage renal disease on hemodialysis, diabetes mellitus, bipolar disorder, morbid obesity, CVA, resident of a shelter, admitted on 04/06/2020 secondary to be found Unresponsiveness after hemodialysis. Patient is unable to provide history, currently intubated. Patient received hemodialysis and after completion she became unresponsive. Upon EMS arrival, blood pressure was 90/60, HR 88, temperature 97.2. Per records, patient was not complaining of any symptoms. On arrival, temperature 94.1, HR 66, RR 18, O2 sat 87%, BP 131/111. Initial WBC 19.2. Urinalysis showed more than 182 WBCs and moderate leukocyte esterase. Chest x-ray shows bibasilar infiltrates. Patient was intubated in the emergency room to protect airway. Bains catheter was placed yielding purulent urine. No new issues overnight. Patient remains intubated on mechanical ventilation Severe sepsis. Present on admission with hypothermia, leukocytosis, altered mental status, likely due to bilateral pneumonia. F/U Blood Cx. Cont. Abx pre ID Bilateral pneumonia. Aspiration pneumonia/HAP Severe UTI. Bains catheter with purulent urine. Acute hypoxemic and hypercapnic respiratory failure. Intubated for airway protection, O2 sats down to 87%. Acute toxic metabolic encephalopathy. Etiology secondary to sepsis Bibasilar atelectasis, End-stage renal disease on hemodialysis Anemia of chronic renal disease Extensive Candidal intertrigo in groin and vagina. Cont. 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 Patient remains intubated on mechanical ventilation with AC mode ventilation rate 12, tidal volume 450, FiO2 40% and a PEEP of 6. Continue weaning per protocols. Patient with ESRD and continue TTS schedule per nephrology. Patient does have a history of COVID-19 infection(01/07/20) but negative testing April 07. Follow-up blood/urine/sputum culture. Continue antibiotics per ID recommendations. 04/09/2020. Patient not tolerating PSV 12/6 with FiO2 of 30%. Continue hemodialysis per nephrology recommendations. Continue IV antibiotics per ID recommendations. Blood cultures no growth to date. Respiratory therapy reports patient with accelerated hypertension and apneic episodes on PSV ventilation. Await pulmonary recommendations. 04/10/2020. Patient remains on mechanical ventilation AC mode rate 12, tidal volume 450, FiO2 30% and a PEEP of 6. Continue PSV trials per protocols. Continue hemodialysis per nephrology recommendations. Continue anti-infectives of fluconazole and cefepime. Follow-up blood/urine/sputum culture. ID, pulmonary and nephrology following. 04/11/2020; patient remains on mechanical ventilation AC mode rate 12, tidal volume 450, FiO2 of 30 and PEEP of 6. Continue PSV trials per protocols. continue hemodialysis per nephrology. ID changed antibiotics to meropenem. Blood culture grew staph epidermidis likey contaminant. 04/12/2020; patient is intubated, patient open eyes spontaneously. Neurology consulted and continue on replacement treatment. EEG is pending. Recommend MRI. Patient is on meropenem per ID recommendation. Pulmonary is following. Patient is on spontaneous breathing trial 04/13/2020; patient is intubated. Patient's blood pressure was high yesterday, amlodipine and hydralazine was added. Overnight his blood pressure was low and will also BP medications. We will continue to follow. 04/14/2020; patient is intubated and blood pressure is on the low side of normal. Patient is on meropenem 5/5. 04/15/2020; patient is intubated, on spontaneous breathing trial. Pulmonary is following. neurology recommend MRI. 04/16/2020; patient is intubated, on spontaneous breathing trial. Pulmonary is following. Neurology recommend MRI once stable. 04/17: Patient showing some clinical improvement. MRI still pending. Continues on restraints weaning trial today. Antibiotics per ID continue aspiration precautions although management by critical care physician. Noted elevated D- dimer level with trend. See ultrasound of the lower extremity was negative for DVT. Prior hospitalization showed elevated D-dimer also. Will discuss with nephrology if patient needs CTA to see if this can be managed with dialysis. This will be done if patient is unable to wean from the vent due to hypoxia. The high probability of a clinically significant, sudden or life threatening deterioration of the [respiratory] system(s) required my full and direct attention, intervention and personal management. The aggregate critical care time was [33] minutes. This time is in addition to time spent performing reported procedures but includes the following: [x] Data Review and interpretation [x] Patient assessment and monitoring of vital signs [x] Documentation [x] Medication orders and management History Interval history: Patient seen and examined, remains on ventilatory support. weaning trials. Hospitalist Physical - Physical exam Narrative exam: VITAL SIGNS: Reviewed. GENERAL: The patient appears normally developed, lethargic on full mechanical ventilation vital signs as documented. HEAD: No signs of head trauma. EYES: Pupils are equal. Extraocular motions intact. EARS: Hearing grossly intact. MOUTH: Oropharynx is normal. NECK: No adenopathy, no JVD. CHEST: Chest with transmitted breath sounds bilaterally. No wheezes, rales, or rhonchi. CARDIAC: Regular rate and rhythm. S1 and S2, without murmurs, gallops, or rubs. VASCULAR: No Edema. Peripheral pulses normal and equal in all extremities. ABDOMEN: Soft, non tender and non distended. No rebound or guarding, and no masses palpated. Bowel Sounds normal. MUSCULOSKELETAL: Bilateral BKA NEUROLOGIC EXAM: Awake, lethargic no focal sensory or strength deficits. Follows some commands. PSYCHIATRIC: Mood normal. SKIN: detail exam as documented in skin assessment - Constitutional Vitals: Temp Pulse Resp BP Pulse Ox 97.9 F 86 17 147/80 98 04/17/20 12:00 04/17/20 16:00 04/17/20 16:00 04/17/20 16:00 04/17/20 16:00 General appearance: Present: severe distress, other (Intubated on mechanical ve ntilation) HEART Score - HEART Score Troponin: Troponin T 0.224 ng/mL (0.00-0.029) H* 04/06/20 14:30 Results - Labs CBC & Chem 7: 04/17/20 05:44 04/17/20 05:44 Labs: Laboratory Last Values WBC 19.5 K/mm3 (4.5-11.0) H 04/17/20 05:44 RBC 3.26 M/mm3 (3.65-5.03) L 04/17/20 05:44 Hgb 9.3 gm/dl (10.1-14.3) L 04/17/20 05:44 Hct 28.7 % (30.3-42.9) L 04/17/20 05:44 MCV 88 fl (79-97) 04/17/20 05:44 MCH 28 pg (28-32) 04/17/20 05:44 MCHC 32 % (30-34) 04/17/20 05:44 RDW 15.9 % (13.2-15.2) H 04/17/20 05:44 Plt Count 604 K/mm3 (140-440) H 04/17/20 05:44 Add Manual Diff Complete 04/17/20 05:44 Total Counted 100 04/17/20 05:44 Seg Neuts % (Manual) 81.0 % (40.0-70.0) H 04/17/20 05:44 Band Neutrophils % 0 % 04/17/20 05:44 Lymphocytes % (Manual) 11.0 % (13.4-35.0) L 04/17/20 05:44 Reactive Lymphs % (Man) 0 % 04/17/20 05:44 Monocytes % (Manual) 3.0 % (0.0-7.3) 04/17/20 05:44 Eosinophils % (Manual) 3.0 % (0.0-4.3) 04/17/20 05:44 Basophils % (Manual) 1.0 % (0.0-1.8) 04/17/20 05:44 Metamyelocytes % 0 % 04/17/20 05:44 Myelocytes % 1.0 % 04/17/20 05:44 Promyelocytes % 0 % 04/17/20 05:44 Blast Cells % 0 % 04/17/20 05:44 Nucleated RBC % Not Reportable 04/17/20 05:44 Seg Neutrophils # Man 15.8 K/mm3 (1.8-7.7) H 04/17/20 05:44 Band Neutrophils # 0.0 K/mm3 04/17/20 05:44 Lymphocytes # (Manual) 2.1 K/mm3 (1.2-5.4) 04/17/20 05:44 Abs React Lymphs (Man) 0.0 K/mm3 04/17/20 05:44 Monocytes # (Manual) 0.6 K/mm3 (0.0-0.8) 04/17/20 05:44 Eosinophils # (Manual) 0.6 K/mm3 (0.0-0.4) H 04/17/20 05:44 Basophils # (Manual) 0.2 K/mm3 (0.0-0.1) H 04/17/20 05:44 Metamyelocytes # 0.0 K/mm3 04/17/20 05:44 Myelocytes # 0.2 K/mm3 04/17/20 05:44 Promyelocytes # 0.0 K/mm3 04/17/20 05:44 Blast Cells # 0.0 K/mm3 04/17/20 05:44 WBC Morphology Not Reportable 04/17/20 05:44 Hypersegmented Neuts Not Reportable 04/17/20 05:44 Hyposegmented Neuts Not Reportable 04/17/20 05:44 Hypogranular Neuts Not Reportable 04/17/20 05:44 Smudge Cells Not Reportable 04/17/20 05:44 Toxic Granulation Not Reportable 04/17/20 05:44 Toxic Vacuolation Not Reportable 04/17/20 05:44 Dohle Bodies Not Reportable 04/17/20 05:44 Pelger-Huet Anomaly Not Reportable 04/17/20 05:44 Stephanie Rods Not Reportable 04/17/20 05:44 Platelet Estimate Consistent w auto 04/17/20 05:44 Clumped Platelets Not Reportable 04/17/20 05:44 Plt Clumps, EDTA Not Reportable 04/17/20 05:44 Large Platelets Not Reportable 04/17/20 05:44 Giant Platelets Not Reportable 04/17/20 05:44 Platelet Satelliting Not Reportable 04/17/20 05:44 Plt Morphology Comment Not Reportable 04/17/20 05:44 RBC Morphology Normal 04/17/20 05:44 Dimorphic RBCs Not Reportable 04/17/20 05:44 Polychromasia Not Reportable 04/17/20 05:44 Hypochromasia Not Reportable 04/17/20 05:44 Poikilocytosis Not Reportable 04/17/20 05:44 Anisocytosis Not Reportable 04/17/20 05:44 Microcytosis Not Reportable 04/17/20 05:44 Macrocytosis Not Reportable 04/17/20 05:44 Spherocytes Few 04/17/20 05:44 Pappenheimer Bodies Not Reportable 04/17/20 05:44 Sickle Cells Not Reportable 04/17/20 05:44 Target Cells Not Reportable 04/17/20 05:44 Tear Drop Cells Not Reportable 04/17/20 05:44 Ovalocytes Not Reportable 04/17/20 05:44 Stomatocytes Few 04/12/20 08:14 Helmet Cells Not Reportable 04/17/20 05:44 [place] Bodies Not Reportable 04/17/20 05:44 [place] Rings Not Reportable 04/17/20 05:44 [place] Cells Not Reportable 04/17/20 05:44 Bite Cells Not Reportable 04/17/20 05:44 Crenated Cell Not Reportable 04/17/20 05:44 Elliptocytes Not Reportable 04/17/20 05:44 Acanthocytes (Spur) Not Reportable 04/17/20 05:44 Rouleaux Not Reportable 04/17/20 05:44 Hemoglobin C Crystals Not Reportable 04/17/20 05:44 Schistocytes Not Reportable 04/17/20 05:44 Malaria parasites Not Reportable 04/17/20 05:44 Lc Bodies Not Reportable 04/17/20 05:44 Hem Pathologist Commnt No 04/17/20 05:44 PT 13.8 Sec. (12.2-14.9) 04/06/20 14:30 INR 1.04 (0.87-1.13) 04/06/20 14:30 APTT 28.1 Sec. (24.2-36.6) 04/06/20 14:30 D-Dimer 1063.66 ng/mlDDU (0-234) H 04/07/20 09:34 ABG pH 7.383 (7.320-7.450) 04/13/20 03:40 POC ABG pCO2 42.4 mmHg (32.0-48.0) 04/13/20 03:40 ABG pCO2 54.0 mm Hg 04/11/20 03:44 POC ABG pO2 95.7 mmHg (83-108) 04/13/20 03:40 ABG pO2 73.4 mm Hg (80.0-90.0) L 04/11/20 03:44 POC ABG HCO3 24.7 04/13/20 03:40 ABG HCO3 26.7 mmol/L (20.0-26.0) H 04/11/20 03:44 ABG O2 Saturation 95.0 % (95.0-99.0) 04/11/20 03:44 ABG O2 Content 14.4 (0.0-44) 04/11/20 03:44 POC ABG Base Excess -0.4 04/13/20 03:40 ABG Base Excess -0.1 mmol/L (-2.0-3.0) 04/11/20 03:44 ABG Hemoglobin 9.4 (12.0-17.5) L 04/13/20 03:40 ABG Carboxyhemoglobin 1.6 % (0.0-5.0) 04/11/20 03:44 ABG Methemoglobin 0.7 % (0.0-1.5) 04/11/20 03:44 ABG Sodium 133.6 mmol/L (136.0-145.0) L 04/13/20 03:40 ABG Potassium 3.8 mmol/L (3.40-4.50) 04/13/20 03:40 ABG Chloride 102.0 mmol/L (98-107) 04/13/20 03:40 ABG Glucose 172 mg/dL (65-95) H 04/13/20 03:40 Oxyhemoglobin 92.8 % (95.0-99.0) L 04/11/20 03:44 FiO2 30 04/13/20 03:40 Sodium 139 mmol/L (137-145) 04/17/20 05:44 Potassium 4.0 mmol/L (3.6-5.0) 04/17/20 05:44 Chloride 100.0 mmol/L (98-107) 04/17/20 05:44 Carbon Dioxide 27 mmol/L (22-30) 04/17/20 05:44 Anion Gap 16 mmol/L 04/17/20 05:44 BUN 28 mg/dL (7-17) H 04/17/20 05:44 Creatinine 3.3 mg/dL (0.6-1.2) H 04/17/20 05:44 Estimated GFR 15 ml/min 04/17/20 05:44 BUN/Creatinine Ratio 8 % 04/17/20 05:44 Glucose 130 mg/dL (65-100) H 04/17/20 05:44 POC Glucose 156 mg/dL (70-105) H 04/17/20 17:18 Lactic Acid 0.90 mmol/L (0.7-2.0) 04/13/20 19:10 Calcium 8.5 mg/dL (8.4-10.2) 04/17/20 05:44 Phosphorus 3.00 mg/dL (2.5-4.5) 04/17/20 05:44 Magnesium 2.00 mg/dL (1.7-2.3) 04/17/20 05:44 Ferritin 743.0 ng/mL (10.0-200.0) H 04/07/20 09:34 Total Bilirubin 0.30 mg/dL (0.1-1.2) 04/06/20 14:30 AST 39 units/L (5-40) 04/06/20 14:30 ALT 21 units/L (7-56) 04/06/20 14:30 Alkaline Phosphatase 738 units/L (35-129) H 04/06/20 14:30 Ammonia 43.0 umol/L (25-60) 04/06/20 14:30 Lactate Dehydrogenase 195 units/L (91-180) H 04/07/20 09:34 Total Creatine Kinase 23 units/L (30-135) L 04/06/20 14:30 Total Creatine Kinase 24 units/L (30-135) L 04/06/20 14:30 Troponin T 0.224 ng/mL (0.00-0.029) H* 04/06/20 14:30 C-Reactive Protein 7.50 mg/dL (0.00-1.30) H 04/07/20 09:34 Total Protein 8.1 g/dL (6.3-8.2) 04/06/20 14:30 Albumin 3.1 g/dL (3.9-5) L 04/06/20 14:30 Albumin/Globulin Ratio 0.6 % 04/06/20 14:30 Triglycerides 342 mg/dL (2-149) H 04/06/20 14:30 Cholesterol 223 mg/dL (50-199) H 04/06/20 14:30 LDL Cholesterol Direct 123 mg/dL (50-130) 04/06/20 14:30 HDL Cholesterol 35 mg/dL (40-59) L 04/06/20 14:30 Cholesterol/HDL Ratio 6.37 % 04/06/20 14:30 Procalcitonin 1.59 ng/mL (<0.15) 04/13/20 19:10 TSH 1.320 mlU/mL (0.270-4.200) 04/06/20 14:30 HCG, Qual Negative (Negative) 04/06/20 14:30 Arterial Blood Glucose 172 mg/dL (65-95) H 04/13/20 03:40 Arterial Blood Ionized Calcium 4.8 mg/dL (4.6-5.3) 04/13/20 03:40 Urine Color Yellow (Yellow) 04/06/20 13:34 Urine Turbidity Turbid (Clear) 04/06/20 13:34 Urine pH 7.0 (5.0-7.0) 04/06/20 13:34 Ur Specific [place] 1.017 (1.003-1.030) 04/06/20 13:34 Urine Protein 100 mg/dl mg/dL (Negative) 04/06/20 13:34 Urine Glucose (UA) 50 mg/dL (Negative) 04/06/20 13:34 Urine Ketones Tr mg/dL (Negative) 04/06/20 13:34 Urine Blood Sm (Negative) 04/06/20 13:34 Urine Nitrite Neg (Negative) 04/06/20 13:34 Urine Bilirubin Neg (Negative) 04/06/20 13:34 Urine Urobilinogen < 2.0 mg/dL (<2.0) 04/06/20 13:34 Ur Leukocyte Esterase Mod (Negative) 04/06/20 13:34 Urine WBC (Auto) > 182.0 /HPF (0.0-6.0) H 04/06/20 13:34 Urine RBC (Auto) 49.0 /HPF (0.0-6.0) 04/06/20 13:34 U Epithel Cells (Auto) 6.0 /HPF (0-13.0) 04/06/20 13:34 Urine Bacteria (Auto) 2+ /HPF (Negative) 04/06/20 13:34 Urine WBC Clumps 3+ /HPF 04/06/20 13:34 Urine Mucus 3+ /HPF 04/06/20 13:34 Salicylates < 0.3 mg/dL (2.8-20.0) L 04/06/20 14:30 Acetaminophen 5.0 ug/mL (10.0-30.0) L 04/06/20 14:30 Plasma/Serum Alcohol < 0.01 % (0-0.07) 04/06/20 14:30 Coronavirus (PCR) Negative (Negative) 04/07/20 Unknown Hepatitis A IgM Ab Non-reactive (NonReactive) 04/07/20 16:38 Hep Bs Antigen Non-reactive (Negative) 04/07/20 16:38 Hep B Core IgM Ab Non-reactive (NonReactive) 04/07/20 16:38 Hepatitis C Antibody Reactive (NonReactive) A 04/07/20 16:38 Blood Type O POSITIVE 04/06/20 14:30 Antibody Screen Negative 04/06/20 14:30 Bains/IV: Voiding Method Incontinent IV Catheter Type [Left Forearm INT / Saline Lock ] IV Catheter Type [Right VAS Cath Subclavian] IV Catheter Type [Left INT / Saline Lock Antecubital] IV Catheter Type [Right INT / Saline Lock Forearm] Active Medications - Current Medications Current Medications: Generic Name Dose Route Start Last Admin Trade Name Freq PRN Reason Stop Dose Admin Acetaminophen 650 mg 04/06/20 16:39 Tylenol PO Q6H PRN Pain, Mild (1-3) Lipase/Protease/Amylase 1 each 04/07/20 10:[address] 10,500 Unit FEEDTUBE PRN PRN For Clogged Feeding Tube Carvedilol 6.25 mg 04/13/20 22:00 04/17/20 09:34 Coreg PO 6.25 mg BID NOEL Administration Dextrose 50 ml 04/09/20 16:30 D50w (25gm) Syringe IV Q30MIN PRN Hypoglycemia Protocol Famotidine 20 mg 04/07/20 10:00 04/17/20 09:34 Pepcid PO 20 mg QDAY NOEL Administration Fentanyl 12.5 mcg 04/16/20 15:24 04/16/20 17:12 Sublimaze IV 12.5 mcg Q4H PRN Administration RESTLESSNESS Heparin Sodium (Porcine) 5,000 unit 04/06/20 22:00 04/17/20 09:34 Heparin SUB-Q 5,000 unit Q12HR NOEL Administration Hydrophilic Ointment 1 applic 04/06/20 13:34 Vaseline Lip Therapy TP Q2HR PRN Dry Lips Sodium Chloride 250 mls @ 10 mls/hr 04/07/20 10:03 04/09/20 05:38 Nacl 0.9% 250ml IV 10 mls/hr DIRECT PRN Administration FOR ABX Sodium Chloride 100 mls @ 999 mls/hr 04/07/20 17:00 Nacl 0.9% IV SPRING PRN Hypotension Insulin Glargine 10 units 04/17/20 10:00 04/17/20 10:34 Lantus SUB-Q 10 units Q24HR NOEL Administration Insulin Human Regular 0 unit 04/09/20 18:00 04/17/20 17:24 Humulin R SUB-Q 1 unit Q6H NOEL Administration Protocol Labetalol HCl 10 mg 04/08/20 17:17 04/17/20 10:41 Labetalol IV 10 mg Q4H PRN Administration Blood Pressure Multi-Ingred Cream/Lotion/Oil/Oint 1 applic 04/06/20 13:34 Artificial Tears Ophth Oint OU Q4HR PRN Dry Eye(s) Simple Syrup 15 ml 04/07/20 10:23 Simple Syrup FEEDTUBE PRN PRN Hypoglycemia Simple Syrup 30 ml 04/07/20 10:23 Simple Syrup FEEDTUBE PRN PRN Hypoglycemia Sodium Bicarbonate 325 mg 04/07/20 10:23 Sodium Bicarbonate FEEDTUBE PRN PRN For Clogged Feeding Tube Sodium Chloride 10 ml 04/06/20 22:00 04/17/20 10:41 Sodium Chloride Flush Syringe 10 Ml IV 10 ml BID NOEL Administration Sodium Chloride 10 ml 04/06/20 16:32 Sodium Chloride Flush Syringe 10 Ml IV PRN PRN LINE FLUSH Nutrition/Malnutrition Assess - Dietary Evaluation Nutrition/Malnutrition Findings: Nutrition Notes Start: 04/07/20 08:19 Freq: Status: Active Protocol: Document 04/13/20 14:07 AL (Rec: 04/13/20 14:11 AL [id number]) Co-Sign 04/13/20 14:07 LP Nutrition Notes Initial or Follow up Reassessment Current Diagnosis CKD (stage V CKD),Diabetes, Hypertension,Stroke Other Pertinent Diagnosis on HD, bilateral BKA, AMS Current Diet Nepro 1.8 at 45 mL/hr (goal rate) Labs/Tests BUN 43 Cr 4.9 POC BG 155 Pertinent Medications Humulin Fentanyl KCl 40 mEq (04/12) Height 5 ft 5 in Weight 110.1 kg [place] Body Weight (kg) 56.81 BMI 40.4 Weight Status Morbidly Obese Subjective/Other Information F/U for TF tolerance. Patient is tolerating TF well at goal rate. Percent of energy/protein needs met: 100%/61% Burn Absent Trauma Absent GI Symptoms None Current % PO Negligible Minimum of two criteria No physical signs of malnutrition #1 Nutrition Diagnosis Inadequate oral intake Diagnosis Progress(for reassessment Continues documentation) Is patient on ventilator? Yes Is Patient Ambulatory and/or Out of Bed No REE-([place]. or-confined to bed) 2063.820 Kcal/Kg value to use for calculation 16 Approximate Energy Requirements Using 1762 kcal/Kg Calculation Used for Recommendations Kcal/kg Additional Notes Protein Needs: up to 142 g (up to 2.5 g/kg IBW) Fluid Needs: 1 mL/kcal Nutrition Intervention Change Diet Order: Continue TF Nutrition Support: Nepro 1.8 at 45 mL/hr (goal rate) Flush 200 mL q4h Kcal 1,944 Protein (gm) 87 Fluid (mL) 785 Goal #1 Meet estimated energy and protein needs as best as possible via TF Anticipated Discharge Needs: Unable to determine at this time Follow-Up By: 04/19/20 Additional Comments F/U for TF tolerance
--- NOTE | 2020-04-17 18:20 | Progress Note ---
Assessment and Plan Cultures: Blood culture 04/06/2020: 1 out of 4 bottles coag negative staph Urine culture 04/06/2020 <10,000 mixed bacteria Respiratory culture 04/06/2020 poor specimen SARS-CoV-2 PCR negative 04/07/2020 tracheal aspirate culture: Usual respiratory sarah Assessment: 49 years old female with history of asthma, hypertension, end-stage renal disease on hemodialysis, diabetes mellitus, bipolar disorder, morbid obesity, CVA, bilateral BKA's recent COVID-19 infection requiring intubation treated with dexamethasone in December 2019 [facility], resident of a detention, admitted on 04/06/2020 secondary to be found unresponsiveness after hemodialysis: #Severe sepsis: Present on admission with hypothermia, leukocytosis, altered mental status, likely due to bilateral pneumonia, bacteremia and UTI. #Bilateral pneumonia: Aspiration pneumonia/HAP. Of note, patient was recently admitted at [facility] in January 2020 requiring intubation for COVID-19 pneumonia. COVID-19 pneumonia was treated with dexamethasone. #Coag negative staph bacteremia: 1/4 bottles, consistent with contaminant. #UTI: Bains catheter with purulent urine. #Acute hypoxemic respiratory failure: intubated, on the vent #End-stage renal disease on hemodialysis: renally dose abx. #Extensive Candidal intertrigo in groin and vagina: treated with fluconazole. #Vancomycin allergy ? Causing hives. I reviewed records from [facility] and there is no documentation of vancomycin allergy, patient initially received vancomycin #Leucocytosis: Patient has chronic leukocytosis, labs from [facility] and [facility] in the past were reviewed. #Chronic Hepatitis C: treatment status unknown. F/U HCV RNA PCR. Recs: Completed meropenem f/u HCV RNA PCR Patient has chronic leukocytosis, labs from [facility] and [facility] in the past were reviewed Peyman Zayas MD [facility] O: [phone] F: [phone] Subjective Date of service: 04/17/20 Principal diagnosis: Ac on ch hypoxemic and hypercapnic resp failure; PUI COVID- 19 infxn; AMS Interval history: Afebrile, white count is 19.5, which is an improvement from previous. She remains ventilated. Objective - Exam Narrative Exam: Constitutional: sedated, intubated, on the vent Head, Ears, Nose: Normocephalic, atraumatic. Eyes: Conjunctivae/corneas clear. No icterus. No ptosis. Neck: intubated Oral: intubated Cardiovascular: S1, S2 + Respiratory: AE fair bilaterally and equal GI: Soft, bowel sounds + Musculoskeletal: Bilateral BKA. Right chest PermCath Skin: No rash or abscess Hem/Lymphatic: No palpable cervical or supraclavicular nodes. No lymphangitis Psych: no agitation Neurological: sedated, intubated, on the vent, exam limited - Constitutional Vitals: Vital Signs Temp Pulse Resp BP Pulse Ox 97.8 F 90 15 140/56 98 04/17/20 16:00 04/17/20 18:00 04/17/20 18:00 04/17/20 18:00 04/17/20 18:00 Temperature -Last 24 Hours Temperature 97.8 F Temperature 98.2 F Temperature 97.9 F Temperature 99.0 F Temperature 98.9 F Temperature 99.2 F Temperature 98.7 F - Labs CBC & Chem 7: 04/17/20 05:44 04/17/20 05:44 Labs: Abnormal lab results 04/16/20 04/17/20 04/17/20 Range/Units 23:47 05:44 05:44 WBC 19.5 H (4.5-11.0) K/mm3 RBC 3.26 L (3.65-5.03) M/mm3 Hgb 9.3 L (10.1-14.3) gm/dl Hct 28.7 L (30.3-42.9) % RDW 15.9 H (13.2-15.2) % Plt Count 604 H (140-440) K/mm3 Seg Neuts % (Manual) 81.0 H (40.0-70.0) % Lymphocytes % (Manual) 11.0 L (13.4-35.0) % Seg Neutrophils # Man 15.8 H (1.8-7.7) K/mm3 Eosinophils # (Manual) 0.6 H (0.0-0.4) K/mm3 Basophils # (Manual) 0.2 H (0.0-0.1) K/mm3 BUN 28 H (7-17) mg/dL Creatinine 3.3 H (0.6-1.2) mg/dL Glucose 130 H (65-100) mg/dL POC Glucose 156 H (70-105) mg/dL 04/17/20 04/17/20 Range/Units 12:57 17:18 WBC (4.5-11.0) K/mm3 RBC (3.65-5.03) M/mm3 Hgb (10.1-14.3) gm/dl Hct (30.3-42.9) % RDW (13.2-15.2) % Plt Count (140-440) K/mm3 Seg Neuts % (Manual) (40.0-70.0) % Lymphocytes % (Manual) (13.4-35.0) % Seg Neutrophils # Man (1.8-7.7) K/mm3 Eosinophils # (Manual) (0.0-0.4) K/mm3 Basophils # (Manual) (0.0-0.1) K/mm3 BUN (7-17) mg/dL Creatinine (0.6-1.2) mg/dL Glucose (65-100) mg/dL POC Glucose 146 H 156 H (70-105) mg/dL
[2020-04-17] MEDS ORDERED: MIDAZOLAM 5 MG/5 ML INJ MDV IV ONE (19:38)
[2020-04-17] MEDS ORDERED: fentaNYL 100 MCG/2 ML INJ ONE (19:38)
[2020-04-17] MEDS ORDERED: fentaNYL 100 MCG/2 ML INJ IV ONE (20:00)
[2020-04-17] MEDS ORDERED: MIDAZOLAM 5 MG/5 ML INJ MDV IV NR (20:00)
[2020-04-17] MEDS ORDERED: ROCURONIUM 50 MG/5 ML INJ IV ONE (20:01)
[2020-04-17] MEDS ORDERED: ETOMIDATE 20 MG/10 ML INJ IV ONE ×2 (20:01→20:10)
[2020-04-17] MEDS ORDERED: SUCCINYLCHOLINE CHLORIDE 200 MG/10 ML INJ MDV ONE (20:01)
[2020-04-17] MEDS ORDERED: SUCCINYLCHOLINE CHLORIDE 200 MG/10 ML INJ MDV IV ONE (20:10)
--- NOTE | 2020-04-17 20:51 | Event Note ---
Date: 04/17/20 Called to bedside by hospitalist, Dr. Anton for intubation of a patient. Patient was previously intubated, but apparently self-extubated and was experiencing desaturation. Patient was medicated prior to my arrival with ketamine and succinylcholine. There was one failed attempt by the respiratory therapist. Patient was preoxygenated. I intubated patient using the glide scope and 7.5 ET tube. There was good visualization of the cords, however the ET tube would not completely pass initially, so bougie was inserted and then ET tube was suc cessfully passed over the bougie. There was positive color change, improved oxygenation, and bilateral breath sounds. CXR shows adequate tube placement.
--- NOTE | 2020-04-17 21:52 | XRay Report ---
CHEST 1 VIEW 04/17/2020 8:40 PM INDICATION / CLINICAL INFORMATION: ett placement. COMPARISON: 04/13/2020. FINDINGS: SUPPORT DEVICES: The endotracheal tube tip projects approximately 3 cm superior to the robbi. Additi onal support lines and tubes are unchanged. HEART / MEDIASTINUM: Stable. LUNGS / PLEURA: Stable bibasilar opacities. No pneumothorax. ADDITIONAL FINDINGS: No significant additional findings. IMPRESSION: 1. Endotracheal tube in expected position. Signer Name: Ishmael Solano MD Signed: 04/17/2020 9:47 PM Workstation Name: [id number]
[2020-04-18] MEDS: INSULIN REGULAR, HUMAN 100 UNIT/ML 3ML VIAL SUB-Q SCH ×3 (01:16→17:37)
--- NOTE | 2020-04-18 07:50 | Progress Note ---
Assessment and Plan Assessment and plan: 49 years old female with history of asthma, hypertension, end-stage renal disease on hemodialysis, diabetes mellitus, bipolar disorder, morbid obesity, CVA, resident of a [facility], admitted on 04/06/2020 secondary to be found Unresponsiveness after hemodialysis. Patient is unable to provide history, currently intubated. Patient received hemodialysis and after completion she became unresponsive. Upon EMS arrival, blood pressure was 90/60, HR 88, temperature 97.2. Per records, patient was not complaining of any symptoms. On arrival, temperature 94.1, HR 66, RR 18, O2 sat 87%, BP 131/111. Initial WBC 19.2. Urinalysis showed more than 182 WBCs and moderate leukocyte esterase. Chest x-ray shows bibasilar infiltrates. Patient was intubated in the emergency room to protect airway. Bains catheter was placed yielding purulent urine. Severe sepsis. Present on admission with hypothermia, leukocytosis, altered mental status, likely due to bilateral pneumonia. F/U Blood Cx. Cont. Abx pre ID Bilateral pneumonia. Aspiration pneumonia/HAP Severe UTI. Bains catheter with purulent urine. Acute hypoxemic and hypercapnic respiratory failure. Intubated for airway protection, O2 sats down to 87%. Acute toxic metabolic encephalopathy. Etiology secondary to sepsis Bibasilar atelectasis, End-stage renal disease on hemodialysis Anemia of chronic renal disease vancomycin allergy ? Causing hives. PER ID documentation at other hosptial does not show vanc allergy Chronic leukocytosis, appears so based on review of records from here and [facility] in the past were reviewed. Chronic Hepatitis C: treatment status unknown. F/U HCV RNA PCR. Extensive Candidal intertrigo in groin and vagina. Cont. Fluconazole Intractable nausea with vomiting. 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 Patient remains intubated on mechanical ventilation with AC mode ventilation rate 12, tidal volume 450, FiO2 40% and a PEEP of 6. Continue weaning per protocols. Patient with ESRD and continue TTS schedule per nephrology. Patient does have a history of COVID-19 infection(01/07/20) but negative testing April 07. Follow-up blood/urine/sputum culture. Continue antibiotics per ID recommendations. 04/09/2020. Patient not tolerating PSV 12/6 with FiO2 of 30%. Continue hemodialysis per nephrology recommendations. Continue IV antibiotics per ID recommendations. Blood cultures no growth to date. Respiratory therapy reports patient with accelerated hypertension and apneic episodes on PSV ventilation. Await pulmonary recommendations. 04/10/2020. Patient remains on mechanical ventilation AC mode rate 12, tidal volume 450, FiO2 30% and a PEEP of 6. Continue PSV trials per protocols. Continue hemodialysis per nephrology recommendations. Continue anti-infectives of fluconazole and cefepime. Follow-up blood/urine/sputum culture. ID, pulmonary and nephrology following. 04/11/2020; patient remains on mechanical ventilation AC mode rate 12, tidal volume 450, FiO2 of 30 and PEEP of 6. Continue PSV trials per protocols. continue hemodialysis per nephrology. ID changed antibiotics to meropenem. B lood culture grew staph epidermidis likey contaminant. 04/12/2020; patient is intubated, patient open eyes spontaneously. Neurology consulted and continue on replacement treatment. EEG is pending. Recommend MRI. Patient is on meropenem per ID recommendation. Pulmonary is following. Patient is on spontaneous breathing trial 04/13/2020; patient is intubated. Patient's blood pressure was high yesterday, amlodipine and hydralazine was added. Overnight his blood pressure was low and will also BP medications. We will continue to follow. 04/14/2020; patient is intubated and blood pressure is on the low side of normal. Patient is on meropenem 5/5. 04/15/2020; patient is intubated, on spontaneous breathing trial. Pulmonary is following. neurology recommend MRI. 04/16/2020; patient is intubated, on spontaneous breathing trial. Pulmonary is following. Neurology recommend MRI once stable. 04/17: Patient showing some clinical improvement. MRI still pending. Continues on restraints weaning trial today. Antibiotics per ID continue aspiration precautions although management by critical care physician. Noted elevated D- dimer level with trend. See ultrasound of the lower extremity was negative for DVT. Prior hospitalization showed elevated D-dimer also. Will discuss with nephrology if patient needs CTA to see if this can be managed with dialysis. This will be done if patient is unable to wean from the vent due to hypoxia. 04/18: Patient required re-intubation last night due to self extubation and decompensation with hypoxia. CXR post extubation showed tube in expected position. Patient also noted to have large projectile vomiting. - Obtain KUB - start Zofran - Hold tube feeds - May benefit from GI eval if vomiting continues. - She is currently being treated for Aspiration Pneumonia with bactermia and Acute cystitis The high probability of a clinically significant, sudden or life threatening deterioration of the [respiratory] system(s) required my full and direct attention, intervention and personal management. The aggregate critical care time was [33] minutes. This time is in addition to time spent performing reported procedures but includes the following: [x] Data Review and interpretation [x] Patient assessment and monitoring of vital signs [x] Documentation [x] Medication orders and management History Interval history: Patient seen and examined, remains on ventilatory support. Had self extubated yesterday but was re-intubated Hospitalist Physical - Physical exam Narrative exam: VITAL SIGNS: Reviewed. GENERAL: The patient appears normally developed, lethargic on full mechanical ventilation vital signs as documented. HEAD: No signs of head trauma. EYES: Pupils are equal. Extraocular motions intact. EARS: Hearing grossly intact. MOUTH: Oropharynx is normal. NECK: No adenopathy, no JVD. CHEST: Chest with transmitted breath sounds bilaterally. No wheezes, rales, or rhonchi. CARDIAC: Regular rate and rhythm. S1 and S2, without murmurs, gallops, or rubs. VASCULAR: No Edema. Peripheral pulses normal and equal in all extremities. ABDOMEN: Soft, non tender and non distended. No rebound or guarding, and no masses palpated. Bowel Sounds normal. MUSCULOSKELETAL: Bilateral BKA NEUROLOGIC EXAM: Awake, lethargic no focal sensory or strength deficits. Follows some commands. PSYCHIATRIC: Mood normal. SKIN: detail exam as documented in skin assessment - Constitutional Vitals: Temp Pulse Resp BP Pulse Ox 98.8 F 105 H 16 116/51 100 04/18/20 03:44 04/18/20 07:00 04/18/20 07:00 04/18/20 07:00 04/18/20 07:00 General appearance: Present: severe distress, other (Intubated on mechanical ventilation) HEART Score - HEART Score Troponin: Troponin T 0.224 ng/mL (0.00-0.029) H* 04/06/20 14:30 Results - Labs CBC & Chem 7: 04/18/20 06:48 04/18/20 06:48 Labs: Laboratory Last Values WBC 19.5 K/mm3 (4.5-11.0) H 04/17/20 05:44 RBC 3.26 M/mm3 (3.65-5.03) L 04/17/20 05:44 Hgb 9.3 gm/dl (10.1-14.3) L 04/17/20 05:44 Hct 28.7 % (30.3-42.9) L 04/17/20 05:44 MCV 88 fl (79-97) 04/17/20 05:44 MCH 28 pg (28-32) 04/17/20 05:44 MCHC 32 % (30-34) 04/17/20 05:44 RDW 15.9 % (13.2-15.2) H 04/17/20 05:44 Plt Count 604 K/mm3 (140-440) H 04/17/20 05:44 Add Manual Diff Complete 04/17/20 05:44 Total Counted 100 04/17/20 05:44 Seg Neuts % (Manual) 81.0 % (40.0-70.0) H 04/17/20 05:44 Band Neutrophils % 0 % 04/17/20 05:44 Lymphocytes % (Manual) 11.0 % (13.4-35.0) L 04/17/20 05:44 Reactive Lymphs % (Man) 0 % 04/17/20 05:44 Monocytes % (Manual) 3.0 % (0.0-7.3) 04/17/20 05:44 Eosinophils % (Manual) 3.0 % (0.0-4.3) 04/17/20 05:44 Basophils % (Manual) 1.0 % (0.0-1.8) 04/17/20 05:44 Metamyelocytes % 0 % 04/17/20 05:44 Myelocytes % 1.0 % 04/17/20 05:44 Promyelocytes % 0 % 04/17/20 05:44 Blast Cells % 0 % 04/17/20 05:44 Nucleated RBC % Not Reportable 04/17/20 05:44 Seg Neutrophils # Man 15.8 K/mm3 (1.8-7.7) H 04/17/20 05:44 Band Neutrophils # 0.0 K/mm3 04/17/20 05:44 Lymphocytes # (Manual) 2.1 K/mm3 (1.2-5.4) 04/17/20 05:44 Abs React Lymphs (Man) 0.0 K/mm3 04/17/20 05:44 Monocytes # (Manual) 0.6 K/mm3 (0.0-0.8) 04/17/20 05:44 Eosinophils # (Manual) 0.6 K/mm3 (0.0-0.4) H 04/17/20 05:44 Basophils # (Manual) 0.2 K/mm3 (0.0-0.1) H 04/17/20 05:44 Metamyelocytes # 0.0 K/mm3 04/17/20 05:44 Myelocytes # 0.2 K/mm3 04/17/20 05:44 Promyelocytes # 0.0 K/mm3 04/17/20 05:44 Blast Cells # 0.0 K/mm3 04/17/20 05:44 WBC Morphology Not Reportable 04/17/20 05:44 Hypersegmented Neuts Not Reportable 04/17/20 05:44 Hyposegmented Neuts Not Reportable 04/17/20 05:44 Hypogranular Neuts Not Reportable 04/17/20 05:44 Smudge Cells Not Reportable 04/17/20 05:44 Toxic Granulation Not Reportable 04/17/20 05:44 Toxic Vacuolation Not Reportable 04/17/20 05:44 Dohle Bodies Not Reportable 04/17/20 05:44 Pelger-Huet Anomaly Not Reportable 04/17/20 05:44 Stephanie Rods Not Reportable 04/17/20 05:44 Platelet Estimate Consistent w auto 04/17/20 05:44 Clumped Platelets Not Reportable 04/17/20 05:44 Plt Clumps, EDTA Not Reportable 04/17/20 05:44 Large Platelets Not Reportable 04/17/20 05:44 Giant Platelets Not Reportable 04/17/20 05:44 Platelet Satelliting Not Reportable 04/17/20 05:44 Plt Morphology Comment Not Reportable 04/17/20 05:44 RBC Morphology Normal 04/17/20 05:44 Dimorphic RBCs Not Reportable 04/17/20 05:44 Polychromasia Not Reportable 04/17/20 05:44 Hypochromasia Not Reportable 04/17/20 05:44 Poikilocytosis Not Reportable 04/17/20 05:44 Anisocytosis Not Reportable 04/17/20 05:44 Microcytosis Not Reportable 04/17/20 05:44 Macrocytosis Not Reportable 04/17/20 05:44 Spherocytes Few 04/17/20 05:44 Pappenheimer Bodies Not Reportable 04/17/20 05:44 Sickle Cells Not Reportable 04/17/20 05:44 Target Cells Not Reportable 04/17/20 05:44 Tear Drop Cells Not Reportable 04/17/20 05:44 Ovalocytes Not Reportable 04/17/20 05:44 Stomatocytes Few 04/12/20 08:14 Helmet Cells Not Reportable 04/17/20 05:44 [place] Bodies Not Reportable 04/17/20 05:44 [place] Rings Not Reportable 04/17/20 05:44 Michael Cells Not Reportable 04/17/20 05:44 Bite Cells Not Reportable 04/17/20 05:44 Crenated Cell Not Reportable 04/17/20 05:44 Elliptocytes Not Reportable 04/17/20 05:44 Acanthocytes (Spur) Not Reportable 04/17/20 05:44 Rouleaux Not Reportable 04/17/20 05:44 Hemoglobin C Crystals Not Reportable 04/17/20 05:44 Schistocytes Not Reportable 04/17/20 05:44 Malaria parasites Not Reportable 04/17/20 05:44 Lc Bodies Not Reportable 04/17/20 05:44 Hem Pathologist Commnt No 04/17/20 05:44 PT 13.8 Sec. (12.2-14.9) 04/06/20 14:30 INR 1.04 (0.87-1.13) 04/06/20 14:30 APTT 28.1 Sec. (24.2-36.6) 04/06/20 14:30 D-Dimer 1063.66 ng/mlDDU (0-234) H 04/07/20 09:34 ABG pH 7.553 (7.320-7.450) H 04/17/20 22:04 POC ABG pCO2 32.8 mmHg (32.0-48.0) 04/17/20 22:04 ABG pCO2 54.0 mm Hg 04/11/20 03:44 POC ABG pO2 206.5 mmHg (83-108) H 04/17/20 22:04 ABG pO2 73.4 mm Hg (80.0-90.0) L 04/11/20 03:44 POC ABG HCO3 28.2 04/17/20 22:04 ABG HCO3 26.7 mmol/L (20.0-26.0) H 04/11/20 03:44 ABG O2 Saturation 95.0 % (95.0-99.0) 04/11/20 03:44 ABG O2 Content 14.4 (0.0-44) 04/11/20 03:44 POC ABG Base Excess 6.0 04/17/20 22:04 ABG Base Excess -0.1 mmol/L (-2.0-3.0) 04/11/20 03:44 ABG Hemoglobin 11.2 (12.0-17.5) L 04/17/20 22:04 ABG Oxyhemoglobin 99.1 (94-98) H 04/17/20 22:04 ABG Carboxyhemoglobin 1.6 % (0.0-5.0) 04/11/20 03:44 ABG Methemoglobin 0 (0.0-1.5) 04/17/20 22:04 ABG Sodium 133.0 mmol/L (136.0-145.0) L 04/17/20 22:04 ABG Potassium 4.0 mmol/L (3.40-4.50) 04/17/20 22:04 ABG Chloride 101.0 mmol/L (98-107) 04/17/20 22:04 ABG Glucose 183 mg/dL (65-95) H 04/17/20 22:04 Oxyhemoglobin 92.8 % (95.0-99.0) L 04/11/20 03:44 Carboxyhemoglobin 0.6 (0.5-1.5) 04/17/20 22:04 FiO2 100 04/17/20 22:04 Sodium 139 mmol/L (137-145) 04/17/20 05:44 Potassium 4.0 mmol/L (3.6-5.0) 04/17/20 05:44 Chloride 100.0 mmol/L (98-107) 04/17/20 05:44 Carbon Dioxide 27 mmol/L (22-30) 04/17/20 05:44 Anion Gap 16 mmol/L 04/17/20 05:44 BUN 28 mg/dL (7-17) H 04/17/20 05:44 Creatinine 3.3 mg/dL (0.6-1.2) H 04/17/20 05:44 Estimated GFR 15 ml/min 04/17/20 05:44 BUN/Creatinine Ratio 8 % 04/17/20 05:44 Glucose 130 mg/dL (65-100) H 04/17/20 05:44 POC Glucose 119 mg/dL (70-105) H 04/18/20 04:43 Lactic Acid 0.90 mmol/L (0.7-2.0) 04/13/20 19:10 Calcium 8.5 mg/dL (8.4-10.2) 04/17/20 05:44 Phosphorus 3.00 mg/dL (2.5-4.5) 04/17/20 05:44 Magnesium 2.00 mg/dL (1.7-2.3) 04/17/20 05:44 Ferritin 743.0 ng/mL (10.0-200.0) H 04/07/20 09:34 Total Bilirubin 0.30 mg/dL (0.1-1.2) 04/06/20 14:30 AST 39 units/L (5-40) 04/06/20 14:30 ALT 21 units/L (7-56) 04/06/20 14:30 Alkaline Phosphatase 738 units/L (35-129) H 04/06/20 14:30 Ammonia 43.0 umol/L (25-60) 04/06/20 14:30 Lactate Dehydrogenase 195 units/L (91-180) H 04/07/20 09:34 Total Creatine Kinase 23 units/L (30-135) L 04/06/20 14:30 Total Creatine Kinase 24 units/L (30-135) L 04/06/20 14:30 Troponin T 0.224 ng/mL (0.00-0.029) H* 04/06/20 14:30 C-Reactive Protein 7.50 mg/dL (0.00-1.30) H 04/07/20 09:34 Total Protein 8.1 g/dL (6.3-8.2) 04/06/20 14:30 Albumin 3.1 g/dL (3.9-5) L 04/06/20 14:30 Albumin/Globulin Ratio 0.6 % 04/06/20 14:30 Triglycerides 342 mg/dL (2-149) H 04/06/20 14:30 Cholesterol 223 mg/dL (50-199) H 04/06/20 14:30 LDL Cholesterol Direct 123 mg/dL (50-130) 04/06/20 14:30 HDL Cholesterol 35 mg/dL (40-59) L 04/06/20 14:30 Cholesterol/HDL Ratio 6.37 % 04/06/20 14:30 Procalcitonin 1.59 ng/mL (<0.15) 04/13/20 19:10 TSH 1.320 mlU/mL (0.270-4.200) 04/06/20 14:30 HCG, Qual Negative (Negative) 04/06/20 14:30 Arterial Blood Glucose 183 mg/dL (65-95) H 04/17/20 22:04 Arterial Blood Ionized Calcium 4.4 mg/dL (4.6-5.3) L 04/17/20 22:04 Urine Color Yellow (Yellow) 04/06/20 13:34 Urine Turbidity Turbid (Clear) 04/06/20 13:34 Urine pH 7.0 (5.0-7.0) 04/06/20 13:34 Ur Specific [place] 1.017 (1.003-1.030) 04/06/20 13:34 Urine Protein 100 mg/dl mg/dL (Negative) 04/06/20 13:34 Urine Glucose (UA) 50 mg/dL (Negative) 04/06/20 13:34 Urine Ketones Tr mg/dL (Negative) 04/06/20 13:34 Urine Blood Sm (Negative) 04/06/20 13:34 Urine Nitrite Neg (Negative) 04/06/20 13:34 Urine Bilirubin Neg (Negative) 04/06/20 13:34 Urine Urobilinogen < 2.0 mg/dL (<2.0) 04/06/20 13:34 Ur Leukocyte Esterase Mod (Negative) 04/06/20 13:34 Urine WBC (Auto) > 182.0 /HPF (0.0-6.0) H 04/06/20 13:34 Urine RBC (Auto) 49.0 /HPF (0.0-6.0) 04/06/20 13:34 U Epithel Cells (Auto) 6.0 /HPF (0-13.0) 04/06/20 13:34 Urine Bacteria (Auto) 2+ /HPF (Negative) 04/06/20 13:34 Urine WBC Clumps 3+ /HPF 04/06/20 13:34 Urine Mucus 3+ /HPF 04/06/20 13:34 Salicylates < 0.3 mg/dL (2.8-20.0) L 04/06/20 14:30 Acetaminophen 5.0 ug/mL (10.0-30.0) L 04/06/20 14:30 Plasma/Serum Alcohol < 0.01 % (0-0.07) 04/06/20 14:30 Coronavirus (PCR) Negative (Negative) 04/07/20 Unknown Hepatitis A IgM Ab Non-reactive (NonReactive) 04/07/20 16:38 Hep Bs Antigen Non-reactive (Negative) 04/07/20 16:38 Hep B Core IgM Ab Non-reactive (NonReactive) 04/07/20 16:38 Hepatitis C Antibody Reactive (NonReactive) A 04/07/20 16:38 Blood Type O POSITIVE 04/06/20 14:30 Antibody Screen Negative 04/06/20 14:30 Bains/IV: Voiding Method Incontinent IV Catheter Type [Left Forearm INT / Saline Lock ] IV Catheter Type [Right VAS Cath Subclavian] IV Catheter Type [Left INT / Saline Lock Antecubital] IV Catheter Type [Right INT / Saline Lock Forearm] Active Medications - Current Medications Current Medications: Generic Name Dose Route Start Last Admin Trade Name Freq PRN Reason Stop Dose Admin Acetaminophen 650 mg 04/06/20 16:39 Tylenol PO Q6H PRN Pain, Mild (1-3) Lipase/Protease/Amylase 1 each 04/07/20 10:[address] 10,500 Unit FEEDTUBE PRN PRN For Clogged Feeding Tube Carvedilol 6.25 mg 04/13/20 22:00 04/17/20 21:37 Coreg PO 6.25 mg BID NOEL Administration Dextrose 50 ml 04/09/20 16:30 D50w (25gm) Syringe IV Q30MIN PRN Hypoglycemia Protocol Famotidine 20 mg 04/07/20 10:00 04/17/20 09:34 Pepcid PO 20 mg QDAY NOEL Administration Fentanyl 12.5 mcg 04/16/20 15:24 04/16/20 17:12 Sublimaze IV 12.5 mcg Q4H PRN Administration RESTLESSNESS Heparin Sodium (Porcine) 5,000 unit 04/06/20 22:00 04/17/20 21:38 Heparin SUB-Q 5,000 unit Q12HR NOEL Administration Hydrophilic Ointment 1 applic 04/06/20 13:34 Vaseline Lip Therapy TP Q2HR PRN Dry Lips Sodium Chloride 250 mls @ 10 mls/hr 04/07/20 10:03 04/09/20 05:38 Nacl 0.9% 250ml IV 10 mls/hr DIRECT PRN Administration FOR ABX Sodium Chloride 100 mls @ 999 mls/hr 04/07/20 17:00 Nacl 0.9% IV SPRING PRN Hypotension Propofol 1,000 mg in 100 mls @ 3.303 mls/hr 04/17/20 23:00 04/14/20 20:30 Diprivan 10 Mg/Ml IV 10 mcg/kg/min TITR NOEL 6.606 mls/hr Administration Protocol 5 MCG/KG/MIN Insulin Glargine 10 units 04/17/20 10:00 04/17/20 10:34 Lantus SUB-Q 10 units Q24HR NOEL Administration Insulin Human Regular 0 unit 04/09/20 18:00 04/18/20 01:16 Humulin R SUB-Q Not Given Q6H [facility] Protocol Labetalol HCl 10 mg 04/08/20 17:17 04/17/20 22:54 Labetalol IV 10 mg Q4H PRN Administration Blood Pressure Multi-Ingred Cream/Lotion/Oil/Oint 1 applic 04/06/20 13:34 Artificial Tears Ophth Oint OU Q4HR PRN Dry Eye(s) Simple Syrup 15 ml 04/07/20 10:23 Simple Syrup FEEDTUBE PRN PRN Hypoglycemia Simple Syrup 30 ml 04/07/20 10:23 Simple Syrup FEEDTUBE PRN PRN Hypoglycemia Sodium Bicarbonate 325 mg 04/07/20 10:23 Sodium Bicarbonate FEEDTUBE PRN PRN For Clogged Feeding Tube Sodium Chloride 10 ml 04/06/20 22:00 04/17/20 21:38 Sodium Chloride Flush Syringe 10 Ml IV 10 ml BID NOEL Administration Sodium Chloride 10 ml 04/06/20 16:32 Sodium Chloride Flush Syringe 10 Ml IV PRN PRN LINE FLUSH Nutrition/Malnutrition Assess - Dietary Evaluation Nutrition/Malnutrition Findings: Nutrition Notes Start: 04/07/20 08:19 Freq: Status: Active Protocol: Document 04/13/20 14:07 AL (Rec: 04/13/20 14:11 AL [id number]) Co-Sign 04/13/20 14:07 LP Nutrition Notes Initial or Follow up Reassessment Current Diagnosis CKD (stage V CKD),Diabetes, Hypertension,Stroke Other Pertinent Diagnosis on HD, bilateral BKA, AMS Current Diet Nepro 1.8 at 45 mL/hr (goal rate) Labs/Tests BUN 43 Cr 4.9 POC BG 155 Pertinent Medications Humulin Fentanyl KCl 40 mEq (04/12) Height 5 ft 5 in Weight 110.1 kg [place] Body Weight (kg) 56.81 BMI 40.4 Weight Status Morbidly Obese Subjective/Other Information F/U for TF tolerance. Patient is tolerating TF well at goal rate. Percent of energy/protein needs met: 100%/61% Burn Absent Trauma Absent GI Symptoms None Current % PO Negligible Minimum of two criteria No physical signs of malnutrition #1 Nutrition Diagnosis Inadequate oral intake Diagnosis Progress(for reassessment Continues documentation) Is patient on ventilator? Yes Is Patient Ambulatory and/or Out of Bed No REE-([facility]-confined to bed) 2063.820 Kcal/Kg value to use for calculation 16 Approximate Energy Requirements Using 1762 kcal/Kg Calculation Used for Recommendations Kcal/kg Additional Notes Protein Needs: up to 142 g (up to 2.5 g/kg IBW) Fluid Needs: 1 mL/kcal Nutrition Intervention Change Diet Order: Continue TF Nutrition Support: Nepro 1.8 at 45 mL/hr (goal rate) Flush 200 mL q4h Kcal 1,944 Protein (gm) 87 Fluid (mL) 785 Goal #1 Meet estimated energy and protein needs as best as possible via TF Anticipated Discharge Needs: Unable to determine at this time Follow-Up By: 04/19/20 Additional Comments F/U for TF tolerance
[2020-04-18 08:19] LABS: Hematocrit 33.4 % (30.3-42.9); Hemoglobin 10.4 gm/dl (10.1-14.3); Mean Corpuscular HGB Conc 31 % (30-34); Mean Corpuscular Volume 90 fl (79-97); Platelet Count 597 K/mm3 (140-440); Red Blood Count 3.71 M/mm3 (3.65-5.03); Red Cell Distribution Width 16.3 % (13.2-15.2)
[2020-04-18 08:33] LABS: Albumin 2.8 g/dL (3.9-5); Calcium 8.9 mg/dL (8.4-10.2)
--- NOTE | 2020-04-18 08:38 | XRay Report ---
ABDOMEN 1 VIEW(S) INDICATION / CLINICAL INFORMATION: VOMITING. COMPARISON: 04/16/2020 FINDINGS: TUBES / LINES: The nasogastric tube terminates in the distal stomach BOWEL GAS PATTERN: No significant abnormality. FREE AIR / EXTRALUMINAL GAS: None seen. ADDITIONAL FINDINGS: No significant additional findings. IMPRESSION: No significant abnormality. Signer Name: Barrie Valentin Jr, MD Signed: 04/18/2020 8:33 AM Workstation Name: [id number]
[2020-04-18] MEDS: INSULIN GLARGINE 100 UNITS/ML SUB-Q SCH (09:41)
[2020-04-18] MEDS: carvediloL 6.25 MG TAB PO SCH ×2 (09:42→22:16)
[2020-04-18] MEDS: FAMOTIDINE 20 MG TAB PO SCH (09:42)
[2020-04-18] MEDS: HEPARIN 5,000 UNIT/1 ML VIAL SUB-Q SCH ×2 (09:42→21:44)
--- NOTE | 2020-04-18 12:55 | Progress Note ---
Assessment and Plan Acute on chronic hypoxemic and hypercapnic respiratory failure. Coronavirus-19 infection. Acute encephalopathy. Bibasilar atelectasis. End-stage renal disease, on dialysis. Morbid obesity. History of a cerebrovascular accident. Diabetes type 2. History of chronic obstructive pulmonary disease. History of anemia. - ETT day # 13-14 - empty stomach contacts - extubate (If fails will use that opportunity to change ETT as cuff blown) - transition to qhs BIPAP with prn daytime use - continue care as below otherwise; - s/p AB's per ID rec's (Merrem) - continue to wean supplemental oxygen for target O2 sat's > 90% acutely - VAP bundle addressed - continue lung protective strategies - continue bronchodilators with pulmonary hygiene per RT - wean per pulmonary driven protocols otherwise - continue accuchecks with glycemic control per SSI (While critically ill target blood glucose of 140-180 mg/dL; avoid hypoglycemia) - continue fentanyl for sedation / analgesia - sedation prn for target RASS 0 to -1 - avoid nephrotoxins, renally dose all medications - continue to avoid benzodiazepine's, reduce the possibility of delirium - prn analgesia per CPOT score - Maintenance of sleep-wake cycle, avoid delirium - continue enteral nutritional support at goal rate as tolerated - G.I. & VTE prophylaxis - PT/OT/ROM exercises - continue mobility protocols for pressure ulcer prophylaxis - Monitor hemodynamics closely - continue other care per attending / other consultants - discharge planning ongoing concurrently .... Re-evaluate in am & prn CONDITION: CRITICAL PROGNOSIS: GUARDED CODE STATUS: FULL CODE The high probability of a clinically significant, sudden or life-threatening deterioration of the [respiratory, cardiovascular, renal & neurologic] system(s) required my full and direct attention, intervention and personal management. The aggregate critical care time was [32] minutes without overlap. Time includes s pent on; [x] Data Review and interpretation [x] Patient assessment and monitoring of vital signs [x] Documentation [x] Medication orders and management Subjective Date of service: 04/18/20 Principal diagnosis: Ac on ch hypoxemic and hypercapnic resp failure; PUI COVID- 19 infxn; AMS Interval history: Patient is seen today for: Acute on chronic hypoxemic and hypercapnic resp failure; PUI Coronavirus-19 infection; Acute encephalopathy; ESRD; Morbid obesity; DM II; AE-COPD Seen and examined at bedside; 24hour events reviewed; nursing and respiratory care staff consulted; no adverse overnight events reported to me; resting peacefully in bed; remains on MVS; ETT cuff blown thgis am; she hugo;erated PSV very well through the day yesterday; No N/V/F/C Objective Vital Signs - 12hr 04/18/20 04/18/20 04/18/20 01:00 02:00 03:00 Temperature Pulse Rate 101 H 92 H 98 H Pulse Rate [ From Monitor] Respiratory 14 14 17 Rate Blood Pressure 160/44 167/45 156/39 O2 Sat by Pulse 100 94 97 Oximetry 04/18/20 04/18/20 04/18/20 03:20 03:44 04:00 Temperature 98.8 F Pulse Rate 100 H 111 H Pulse Rate [ 98 H From Monitor] Respiratory 32 H Rate Blood Pressure 134/51 142/40 O2 Sat by Pulse 97 98 Oximetry 04/18/20 04/18/20 04/18/20 05:00 06:00 07:00 Temperature Pulse Rate 102 H 101 H 105 H Pulse Rate [ From Monitor] Respiratory 17 10 L 16 Rate Blood Pressure 132/41 103/54 116/51 O2 Sat by Pulse 99 98 100 Oximetry 04/18/20 04/18/20 04/18/20 07:48 08:00 09:00 Temperature Pulse Rate 104 H 92 H 93 H Pulse Rate [ From Monitor] Respiratory 20 15 Rate Blood Pressure 89/42 104/42 124/44 O2 Sat by Pulse 100 99 98 Oximetry 04/18/20 04/18/20 04/18/20 09:42 10:00 11:00 Temperature Pulse Rate 100 H 108 H 95 H Pulse Rate [ From Monitor] Respiratory 19 23 Rate Blood Pressure 145/55 137/109 160/48 O2 Sat by Pulse 99 97 Oximetry Constitutional: no acute distress, other (middle aged obese female with mildly increased respiratory effort at rest) Eyes: non-icteric ENT: oropharynx moist, other (ETT 23 cm PARRISH) Neck: supple, no lymphadenopathy, no JVD Effort: normal Ascultation: Bilateral: diminished breath sounds, rhonchi (scant) Percussion: Bilateral: not dull Cardiovascular: regular rate and rhythm, other (S1,S2) Gastrointestinal: normoactive bowel sounds, soft, non-tender, non-distended (protuberant), other (Bains catheter) Integumentary: erythema (right BKA stump) Extremities: no cyanosis, no ischemia or petechiae, other (bilateral BKAs ) Neurologic: non-focal exam (grossly), pupils equal and round, motor strength normal and, unable to assess Psychiatric: mood appropriate, affect normal CBC and BMP: 04/18/20 06:48 04/18/20 06:48 ABG, PT/INR, D-dimer: ABG ABG pH 7.486 (7.320-7.450) H 04/18/20 03:23 POC ABG pCO2 40.7 mmHg (32.0-48.0) 04/18/20 03:23 ABG pCO2 54.0 mm Hg 04/11/20 03:44 POC ABG pO2 56.4 mmHg (83-108) L 04/18/20 03:23 ABG pO2 73.4 mm Hg (80.0-90.0) L 04/11/20 03:44 POC ABG HCO3 30.0 04/18/20 03:23 ABG O2 Saturation 95.0 % (95.0-99.0) 04/11/20 03:44 PT/INR, D-dimer PT 13.8 Sec. (12.2-14.9) 04/06/20 14:30 INR 1.04 (0.87-1.13) 04/06/20 14:30 D-Dimer 1144.77 ng/mlDDU (0-234) H 04/18/20 06:48 Abnormal lab findings: Abnormal Labs 04/06/20 04/06/20 04/06/20 13:34 14:30 14:30 WBC 19.2 H RBC Hgb Hct RDW 17.8 H Plt Count Seg Neuts % (Manual) 90.0 H Lymphocytes % (Manual) 4.0 L Basophils % (Manual) Seg Neutrophils # Man 17.3 H Lymphocytes # (Manual) 0.8 L Monocytes # (Manual) Eosinophils # (Manual) Basophils # (Manual) D-Dimer ABG pH POC ABG pCO2 POC ABG pO2 ABG pO2 ABG HCO3 ABG Base Excess ABG Hemoglobin ABG Oxyhemoglobin ABG Sodium ABG Chloride ABG Glucose Oxyhemoglobin Sodium Potassium 5.2 H Chloride Carbon Dioxide 17 L BUN 53 H Creatinine 7.8 H Glucose 144 H POC Glucose Calcium Magnesium Ferritin Alkaline Phosphatase 738 H Lactate Dehydrogenase Total Creatine Kinase 23 L Troponin T 0.224 H* C-Reactive Protein Albumin 3.1 L Triglycerides 342 H Cholesterol 223 H HDL Cholesterol 35 L Arterial Blood Glucose Arterial Blood Ionized Calcium Urine WBC (Auto) > 182.0 H Salicylates Acetaminophen Hepatitis C Antibody 04/06/20 04/06/20 04/06/20 14:30 14:30 14:30 WBC RBC Hgb Hct RDW Plt Count Seg Neuts % (Manual) Lymphocytes % (Manual) Basophils % (Manual) Seg Neutrophils # Man Lymphocytes # (Manual) Monocytes # (Manual) Eosinophils # (Manual) Basophils # (Manual) D-Dimer ABG pH POC ABG pCO2 POC ABG pO2 ABG pO2 ABG HCO3 ABG Base Excess ABG Hemoglobin ABG Oxyhemoglobin ABG Sodium ABG Chloride ABG Glucose Oxyhemoglobin Sodium Potassium Chloride Carbon Dioxide BUN Creatinine Glucose POC Glucose Calcium Magnesium 2.50 H Ferritin Alkaline Phosphatase Lactate Dehydrogenase Total Creatine Kinase 24 L Troponin T C-Reactive Protein Albumin Triglycerides Cholesterol HDL Cholesterol Arterial Blood Glucose Arterial Blood Ionized Calcium Urine WBC (Auto) Salicylates < 0.3 L Acetaminophen 5.0 L Hepatitis C Antibody 04/06/20 04/06/20 04/07/20 14:39 20:00 00:48 WBC RBC Hgb Hct RDW Plt Count Seg Neuts % (Manual) Lymphocytes % (Manual) Basophils % (Manual) Seg Neutrophils # Man Lymphocytes # (Manual) Monocytes # (Manual) Eosinophils # (Manual) Basophils # (Manual) D-Dimer ABG pH 7.281 L 7.306 L POC ABG pCO2 POC ABG pO2 78.0 L ABG pO2 133.8 H ABG HCO3 18.3 L ABG Base Excess -7.8 L ABG Hemoglobin 10.8 L 10.8 L ABG Oxyhemoglobin ABG Sodium ABG Chloride 108.0 H ABG Glucose Oxyhemoglobin Sodium Potassium Chloride Carbon Dioxide BUN Creatinine Glucose POC Glucose 69 L Calcium Magnesium Ferritin Alkaline Phosphatase Lactate Dehydrogenase Total Creatine Kinase Troponin T C-Reactive Protein Albumin Triglycerides Cholesterol HDL Cholesterol Arterial Blood Glucose Arterial Blood Ionized Calcium Urine WBC (Auto) Salicylates Acetaminophen Hepatitis C Antibody 04/07/20 04/07/20 04/07/20 09:34 09:34 09:34 WBC RBC Hgb Hct RDW Plt Count Seg Neuts % (Manual) Lymphocytes % (Manual) Basophils % (Manual) Seg Neutrophils # Man Lymphocytes # (Manual) Monocytes # (Manual) Eosinophils # (Manual) Basophils # (Manual) D-Dimer 1063.66 H ABG pH POC ABG pCO2 POC ABG pO2 ABG pO2 ABG HCO3 ABG Base Excess ABG Hemoglobin ABG Oxyhemoglobin ABG Sodium ABG Chloride ABG Glucose Oxyhemoglobin Sodium Potassium Chloride Carbon Dioxide BUN Creatinine Glucose POC Glucose Calcium Magnesium Ferritin 743.0 H Alkaline Phosphatase Lactate Dehydrogenase 195 H Total Creatine Kinase Troponin T C-Reactive Protein 7.50 H Albumin Triglycerides Cholesterol HDL Cholesterol Arterial Blood Glucose Arterial Blood Ionized Calcium Urine WBC (Auto) Salicylates Acetaminophen Hepatitis C Antibody 04/07/20 04/07/20 04/07/20 10:01 16:38 23:51 WBC RBC Hgb Hct RDW Plt Count Seg Neuts % (Manual) Lymphocytes % (Manual) Basophils % (Manual) Seg Neutrophils # Man Lymphocytes # (Manual) Monocytes # (Manual) Eosinophils # (Manual) Basophils # (Manual) D-Dimer ABG pH POC ABG pCO2 POC ABG pO2 79.8 L ABG pO2 ABG HCO3 ABG Base Excess ABG Hemoglobin 10.3 L ABG Oxyhemoglobin ABG Sodium ABG Chloride 109.0 H ABG Glucose Oxyhemoglobin Sodium Potassium Chloride Carbon Dioxide BUN Creatinine Glucose POC Glucose 117 H Calcium Magnesium Ferritin Alkaline Phosphatase Lactate Dehydrogenase Total Creatine Kinase Troponin T C-Reactive Protein Albumin Triglycerides Cholesterol HDL Cholesterol Arterial Blood Glucose Arterial Blood Ionized Calcium 4.5 L Urine WBC (Auto) Salicylates Acetaminophen Hepatitis C Antibody Reactive A 04/08/20 04/08/20 04/08/20 04:58 12:48 17:03 WBC RBC Hgb Hct RDW Plt Count Seg Neuts % (Manual) Lymphocytes % (Manual) Basophils % (Manual) Seg Neutrophils # Man Lymphocytes # (Manual) Monocytes # (Manual) Eosinophils # (Manual) Basophils # (Manual) D-Dimer ABG pH POC ABG pCO2 POC ABG pO2 ABG pO2 ABG HCO3 ABG Base Excess ABG Hemoglobin ABG Oxyhemoglobin ABG Sodium ABG Chloride ABG Glucose Oxyhemoglobin Sodium Potassium Chloride Carbon Dioxide BUN Creatinine Glucose POC Glucose 129 H 155 H 201 H Calcium Magnesium Ferritin Alkaline Phosphatase Lactate Dehydrogenase Total Creatine Kinase Troponin T C-Reactive Protein Albumin Triglycerides Cholesterol HDL Cholesterol Arterial Blood Glucose Arterial Blood Ionized Calcium Urine WBC (Auto) Salicylates Acetaminophen Hepatitis C Antibody 04/08/20 04/08/20 04/09/20 23:49 Unknown 05:31 WBC RBC Hgb Hct RDW Plt Count Seg Neuts % (Manual) Lymphocytes % (Manual) Basophils % (Manual) Seg Neutrophils # Man Lymphocytes # (Manual) Monocytes # (Manual) Eosinophils # (Manual) Basophils # (Manual) D-Dimer ABG pH 7.349 L POC ABG pCO2 POC ABG pO2 ABG pO2 117.3 H ABG HCO3 ABG Base Excess ABG Hemoglobin 7.4 L ABG Oxyhemoglobin ABG Sodium ABG Chloride ABG Glucose Oxyhemoglobin Sodium Potassium Chloride Carbon Dioxide BUN Creatinine Glucose POC Glucose 178 H 248 H Calcium Magnesium Ferritin Alkaline Phosphatase Lactate Dehydrogenase Total Creatine Kinase Troponin T C-Reactive Protein Albumin Triglycerides Cholesterol HDL Cholesterol Arterial Blood Glucose Arterial Blood Ionized Calcium Urine WBC (Auto) Salicylates Acetaminophen Hepatitis C Antibody 04/09/20 04/09/20 04/09/20 11:39 17:35 Unknown WBC RBC Hgb Hct RDW Plt Count Seg Neuts % (Manual) Lymphocytes % (Manual) Basophils % (Manual) Seg Neutrophils # Man Lymphocytes # (Manual) Monocytes # (Manual) Eosinophils # (Manual) Basophils # (Manual) D-Dimer ABG pH POC ABG pCO2 51.6 H POC ABG pO2 ABG pO2 ABG HCO3 ABG Base Excess ABG Hemoglobin 11.4 L ABG Oxyhemoglobin ABG Sodium 130.1 L ABG Chloride ABG Glucose 249 H Oxyhemoglobin Sodium Potassium Chloride Carbon Dioxide BUN Creatinine Glucose POC Glucose 319 H 254 H Calcium Magnesium Ferritin Alkaline Phosphatase Lactate Dehydrogenase Total Creatine Kinase Troponin T C-Reactive Protein Albumin Triglycerides Cholesterol HDL Cholesterol Arterial Blood Glucose 249 H Arterial Blood Ionized Calcium 4.1 L Urine WBC (Auto) Salicylates Acetaminophen Hepatitis C Antibody 04/10/20 04/10/20 04/10/20 00:00 03:15 05:49 WBC RBC Hgb Hct RDW Plt Count Seg Neuts % (Manual) Lymphocytes % (Manual) Basophils % (Manual) Seg Neutrophils # Man Lymphocytes # (Manual) Monocytes # (Manual) Eosinophils # (Manual) Basophils # (Manual) D-Dimer ABG pH POC ABG pCO2 48.2 H POC ABG pO2 ABG pO2 ABG HCO3 ABG Base Excess ABG Hemoglobin 9.9 L ABG Oxyhemoglobin ABG Sodium 135.4 L ABG Chloride ABG Glucose 215 H Oxyhemoglobin Sodium Potassium Chloride Carbon Dioxide BUN Creatinine Glucose POC Glucose 194 H 221 H Calcium Magnesium Ferritin Alkaline Phosphatase Lactate Dehydrogenase Total Creatine Kinase Troponin T C-Reactive Protein Albumin Triglycerides Cholesterol HDL Cholesterol Arterial Blood Glucose 215 H Arterial Blood Ionized Calcium 4.5 L Urine WBC (Auto) Salicylates Acetaminophen Hepatitis C Antibody 04/10/20 04/10/20 04/10/20 08:18 08:18 12:22 WBC 28.9 H RBC 3.38 L Hgb 9.5 L Hct 30.1 L RDW 16.9 H Plt Count Seg Neuts % (Manual) 87.0 H Lymphocytes % (Manual) 9.0 L Basophils % (Manual) 2.0 H Seg Neutrophils # Man 25.1 H Lymphocytes # (Manual) Monocytes # (Manual) Eosinophils # (Manual) Basophils # (Manual) 0.6 H D-Dimer ABG pH POC ABG pCO2 POC ABG pO2 ABG pO2 ABG HCO3 ABG Base Excess ABG Hemoglobin ABG Oxyhemoglobin ABG Sodium ABG Chloride ABG Glucose Oxyhemoglobin Sodium 134 L Potassium 3.5 L D Chloride 94.9 L Carbon Dioxide BUN 38 H Creatinine 5.5 H Glucose 230 H POC Glucose 218 H Calcium Magnesium Ferritin Alkaline Phosphatase Lactate Dehydrogenase Total Creatine Kinase Troponin T C-Reactive Protein Albumin Triglycerides Cholesterol HDL Cholesterol Arterial Blood Glucose Arterial Blood Ionized Calcium Urine WBC (Auto) Salicylates Acetaminophen Hepatitis C Antibody 04/10/20 04/10/20 04/10/20 17:27 18:08 23:29 WBC RBC Hgb Hct RDW Plt Count Seg Neuts % (Manual) Lymphocytes % (Manual) Basophils % (Manual) Seg Neutrophils # Man Lymphocytes # (Manual) Monocytes # (Manual) Eosinophils # (Manual) Basophils # (Manual) D-Dimer ABG pH POC ABG pCO2 POC ABG pO2 ABG pO2 ABG HCO3 ABG Base Excess ABG Hemoglobin ABG Oxyhemoglobin ABG Sodium ABG Chloride ABG Glucose Oxyhemoglobin Sodium Potassium Chloride Carbon Dioxide BUN Creatinine Glucose POC Glucose 218 H 223 H 166 H Calcium Magnesium Ferritin Alkaline Phosphatase Lactate Dehydrogenase Total Creatine Kinase Troponin T C-Reactive Protein Albumin Triglycerides Cholesterol HDL Cholesterol Arterial Blood Glucose Arterial Blood Ionized Calcium Urine WBC (Auto) Salicylates Acetaminophen Hepatitis C Antibody 04/11/20 04/11/20 04/11/20 03:44 05:28 07:39 WBC 26.9 H RBC 3.32 L Hgb 9.4 L Hct 29.5 L RDW 17.2 H Plt Count Seg Neuts % (Manual) 83.0 H Lymphocytes % (Manual) 10.0 L Basophils % (Manual) Seg Neutrophils # Man 22.3 H Lymphocytes # (Manual) Monocytes # (Manual) 1.1 H Eosinophils # (Manual) 0.5 H Basophils # (Manual) D-Dimer ABG pH 7.313 L POC ABG pCO2 POC ABG pO2 ABG pO2 73.4 L ABG HCO3 26.7 H ABG Base Excess ABG Hemoglobin 11.0 L ABG Oxyhemoglobin ABG Sodium ABG Chloride ABG Glucose Oxyhemoglobin 92.8 L Sodium Potassium Chloride Carbon Dioxide BUN Creatinine Glucose POC Glucose 164 H Calcium Magnesium Ferritin Alkaline Phosphatase Lactate Dehydrogenase Total Creatine Kinase Troponin T C-Reactive Protein Albumin Triglycerides Cholesterol HDL Cholesterol Arterial Blood Glucose Arterial Blood Ionized Calcium Urine WBC (Auto) Salicylates Acetaminophen Hepatitis C Antibody 04/11/20 04/11/20 04/11/20 07:39 12:25 19:02 WBC RBC Hgb Hct RDW Plt Count Seg Neuts % (Manual) Lymphocytes % (Manual) Basophils % (Manual) Seg Neutrophils # Man Lymphocytes # (Manual) Monocytes # (Manual) Eosinophils # (Manual) Basophils # (Manual) D-Dimer ABG pH POC ABG pCO2 POC ABG pO2 ABG pO2 ABG HCO3 ABG Base Excess ABG Hemoglobin ABG Oxyhemoglobin ABG Sodium ABG Chloride ABG Glucose Oxyhemoglobin Sodium Potassium Chloride Carbon Dioxide BUN 48 H Creatinine 6.1 H Glucose 122 H POC Glucose 175 H 175 H Calcium 8.3 L Magnesium Ferritin Alkaline Phosphatase Lactate Dehydrogenase Total Creatine Kinase Troponin T C-Reactive Protein Albumin Triglycerides Cholesterol HDL Cholesterol Arterial Blood Glucose Arterial Blood Ionized Calcium Urine WBC (Auto) Salicylates Acetaminophen Hepatitis C Antibody 04/12/20 04/12/20 04/12/20 00:02 05:51 08:14 WBC 28.0 H RBC 3.29 L Hgb 9.5 L Hct 29.1 L RDW 16.9 H Plt Count Seg Neuts % (Manual) 88.0 H Lymphocytes % (Manual) 7.0 L Basophils % (Manual) Seg Neutrophils # Man 24.6 H Lymphocytes # (Manual) Monocytes # (Manual) Eosinophils # (Manual) 0.6 H Basophils # (Manual) D-Dimer ABG pH POC ABG pCO2 POC ABG pO2 ABG pO2 ABG HCO3 ABG Base Excess ABG Hemoglobin ABG Oxyhemoglobin ABG Sodium ABG Chloride ABG Glucose Oxyhemoglobin Sodium Potassium Chloride Carbon Dioxide BUN Creatinine Glucose POC Glucose 146 H 151 H Calcium Magnesium Ferritin Alkaline Phosphatase Lactate Dehydrogenase Total Creatine Kinase Troponin T C-Reactive Protein Albumin Triglycerides Cholesterol HDL Cholesterol Arterial Blood Glucose Arterial Blood Ionized Calcium Urine WBC (Auto) Salicylates Acetaminophen Hepatitis C Antibody 04/12/20 04/12/20 04/12/20 08:14 12:21 17:26 WBC RBC Hgb Hct RDW Plt Count Seg Neuts % (Manual) Lymphocytes % (Manual) Basophils % (Manual) Seg Neutrophils # Man Lymphocytes # (Manual) Monocytes # (Manual) Eosinophils # (Manual) Basophils # (Manual) D-Dimer ABG pH POC ABG pCO2 POC ABG pO2 ABG pO2 ABG HCO3 ABG Base Excess ABG Hemoglobin ABG Oxyhemoglobin ABG Sodium ABG Chloride ABG Glucose Oxyhemoglobin Sodium Potassium 3.3 L Chloride Carbon Dioxide BUN 32 H Creatinine 4.3 H Glucose 188 H POC Glucose 196 H 235 H Calcium Magnesium Ferritin Alkaline Phosphatase Lactate Dehydrogenase Total Creatine Kinase Troponin T C-Reactive Protein Albumin Triglycerides Cholesterol HDL Cholesterol Arterial Blood Glucose Arterial Blood Ionized Calcium Urine WBC (Auto) Salicylates Acetaminophen Hepatitis C Antibody 04/12/20 04/13/20 04/13/20 23:34 03:40 05:33 WBC RBC Hgb Hct RDW Plt Count Seg Neuts % (Manual) Lymphocytes % (Manual) Basophils % (Manual) Seg Neutrophils # Man Lymphocytes # (Manual) Monocytes # (Manual) Eosinophils # (Manual) Basophils # (Manual) D-Dimer ABG pH POC ABG pCO2 POC ABG pO2 ABG pO2 ABG HCO3 ABG Base Excess ABG Hemoglobin 9.4 L ABG Oxyhemoglobin ABG Sodium 133.6 L ABG Chloride ABG Glucose 172 H Oxyhemoglobin Sodium Potassium Chloride Carbon Dioxide BUN Creatinine Glucose POC Glucose 171 H 167 H Calcium Magnesium Ferritin Alkaline Phosphatase Lactate Dehydrogenase Total Creatine Kinase Troponin T C-Reactive Protein Albumin Triglycerides Cholesterol HDL Cholesterol Arterial Blood Glucose 172 H Arterial Blood Ionized Calcium Urine WBC (Auto) Salicylates Acetaminophen Hepatitis C Antibody 04/13/20 04/13/20 04/13/20 07:49 09:09 11:34 WBC RBC Hgb Hct RDW Plt Count Seg Neuts % (Manual) Lymphocytes % (Manual) Basophils % (Manual) Seg Neutrophils # Man Lymphocytes # (Manual) Monocytes # (Manual) Eosinophils # (Manual) Basophils # (Manual) D-Dimer ABG pH POC ABG pCO2 POC ABG pO2 ABG pO2 ABG HCO3 ABG Base Excess ABG Hemoglobin ABG Oxyhemoglobin ABG Sodium ABG Chloride ABG Glucose Oxyhemoglobin Sodium Potassium Chloride Carbon Dioxide 31 H BUN 44 H 43 H Creatinine 5.0 H 4.9 H Glucose 164 H 164 H POC Glucose 155 H Calcium Magnesium Ferritin Alkaline Phosphatase Lactate Dehydrogenase Total Creatine Kinase Troponin T C-Reactive Protein Albumin Triglycerides Cholesterol HDL Cholesterol Arterial Blood Glucose Arterial Blood Ionized Calcium Urine WBC (Auto) Salicylates Acetaminophen Hepatitis C Antibody 04/13/20 04/13/20 04/14/20 17:38 23:40 04:35 WBC RBC Hgb Hct RDW Plt Count Seg Neuts % (Manual) Lymphocytes % (Manual) Basophils % (Manual) Seg Neutrophils # Man Lymphocytes # (Manual) Monocytes # (Manual) Eosinophils # (Manual) Basophils # (Manual) D-Dimer ABG pH POC ABG pCO2 POC ABG pO2 ABG pO2 ABG HCO3 ABG Base Excess ABG Hemoglobin ABG Oxyhemoglobin ABG Sodium ABG Chloride ABG Glucose Oxyhemoglobin Sodium Potassium Chloride Carbon Dioxide BUN Creatinine Glucose POC Glucose 180 H 130 H 121 H Calcium Magnesium Ferritin Alkaline Phosphatase Lactate Dehydrogenase Total Creatine Kinase Troponin T C-Reactive Protein Albumin Triglycerides Cholesterol HDL Cholesterol Arterial Blood Glucose Arterial Blood Ionized Calcium Urine WBC (Auto) Salicylates Acetaminophen Hepatitis C Antibody 04/14/20 04/14/20 04/15/20 12:17 17:06 00:11 WBC RBC Hgb Hct RDW Plt Count Seg Neuts % (Manual) Lymphocytes % (Manual) Basophils % (Manual) Seg Neutrophils # Man Lymphocytes # (Manual) Monocytes # (Manual) Eosinophils # (Manual) Basophils # (Manual) D-Dimer ABG pH POC ABG pCO2 POC ABG pO2 ABG pO2 ABG HCO3 ABG Base Excess ABG Hemoglobin ABG Oxyhemoglobin ABG Sodium ABG Chloride ABG Glucose Oxyhemoglobin Sodium Potassium Chloride Carbon Dioxide BUN Creatinine Glucose POC Glucose 170 H 177 H 156 H Calcium Magnesium Ferritin Alkaline Phosphatase Lactate Dehydrogenase Total Creatine Kinase Troponin T C-Reactive Protein Albumin Triglycerides Cholesterol HDL Cholesterol Arterial Blood Glucose Arterial Blood Ionized Calcium Urine WBC (Auto) Salicylates Acetaminophen Hepatitis C Antibody 04/15/20 04/15/20 04/15/20 05:09 11:45 17:12 WBC RBC Hgb Hct RDW Plt Count Seg Neuts % (Manual) Lymphocytes % (Manual) Basophils % (Manual) Seg Neutrophils # Man Lymphocytes # (Manual) Monocytes # (Manual) Eosinophils # (Manual) Basophils # (Manual) D-Dimer ABG pH POC ABG pCO2 POC ABG pO2 ABG pO2 ABG HCO3 ABG Base Excess ABG Hemoglobin ABG Oxyhemoglobin ABG Sodium ABG Chloride ABG Glucose Oxyhemoglobin Sodium Potassium Chloride Carbon Dioxide BUN Creatinine Glucose POC Glucose 141 H 154 H 177 H Calcium Magnesium Ferritin Alkaline Phosphatase Lactate Dehydrogenase Total Creatine Kinase Troponin T C-Reactive Protein Albumin Triglycerides Cholesterol HDL Cholesterol Arterial Blood Glucose Arterial Blood Ionized Calcium Urine WBC (Auto) Salicylates Acetaminophen Hepatitis C Antibody 04/16/20 04/16/20 04/16/20 05:11 12:13 17:31 WBC RBC Hgb Hct RDW Plt Count Seg Neuts % (Manual) Lymphocytes % (Manual) Basophils % (Manual) Seg Neutrophils # Man Lymphocytes # (Manual) Monocytes # (Manual) Eosinophils # (Manual) Basophils # (Manual) D-Dimer ABG pH POC ABG pCO2 POC ABG pO2 ABG pO2 ABG HCO3 ABG Base Excess ABG Hemoglobin ABG Oxyhemoglobin ABG Sodium ABG Chloride ABG Glucose Oxyhemoglobin Sodium Potassium Chloride Carbon Dioxide BUN Creatinine Glucose POC Glucose 115 H 122 H 188 H Calcium Magnesium Ferritin Alkaline Phosphatase Lactate Dehydrogenase Total Creatine Kinase Troponin T C-Reactive Protein Albumin Triglycerides Cholesterol HDL Cholesterol Arterial Blood Glucose Arterial Blood Ionized Calcium Urine WBC (Auto) Salicylates Acetaminophen Hepatitis C Antibody 04/16/20 04/17/20 04/17/20 23:47 05:44 05:44 WBC 19.5 H RBC 3.26 L Hgb 9.3 L Hct 28.7 L RDW 15.9 H Plt Count 604 H Seg Neuts % (Manual) 81.0 H Lymphocytes % (Manual) 11.0 L Basophils % (Manual) Seg Neutrophils # Man 15.8 H Lymphocytes # (Manual) Monocytes # (Manual) Eosinophils # (Manual) 0.6 H Basophils # (Manual) 0.2 H D-Dimer ABG pH POC ABG pCO2 POC ABG pO2 ABG pO2 ABG HCO3 ABG Base Excess ABG Hemoglobin ABG Oxyhemoglobin ABG Sodium ABG Chloride ABG Glucose Oxyhemoglobin Sodium Potassium Chloride Carbon Dioxide BUN 28 H Creatinine 3.3 H Glucose 130 H POC Glucose 156 H Calcium Magnesium Ferritin Alkaline Phosphatase Lactate Dehydrogenase Total Creatine Kinase Troponin T C-Reactive Protein Albumin Triglycerides Cholesterol HDL Cholesterol Arterial Blood Glucose Arterial Blood Ionized Calcium Urine WBC (Auto) Salicylates Acetaminophen Hepatitis C Antibody 04/17/20 04/17/20 04/17/20 12:57 17:18 22:04 WBC RBC Hgb Hct RDW Plt Count Seg Neuts % (Manual) Lymphocytes % (Manual) Basophils % (Manual) Seg Neutrophils # Man Lymphocytes # (Manual) Monocytes # (Manual) Eosinophils # (Manual) Basophils # (Manual) D-Dimer ABG pH 7.553 H POC ABG pCO2 POC ABG pO2 206.5 H ABG pO2 ABG HCO3 ABG Base Excess ABG Hemoglobin 11.2 L ABG Oxyhemoglobin 99.1 H ABG Sodium 133.0 L ABG Chloride ABG Glucose 183 H Oxyhemoglobin Sodium Potassium Chloride Carbon Dioxide BUN Creatinine Glucose POC Glucose 146 H 156 H Calcium Magnesium Ferritin Alkaline Phosphatase Lactate Dehydrogenase Total Creatine Kinase Troponin T C-Reactive Protein Albumin Triglycerides Cholesterol HDL Cholesterol Arterial Blood Glucose 183 H Arterial Blood Ionized Calcium 4.4 L Urine WBC (Auto) Salicylates Acetaminophen Hepatitis C Antibody 04/17/20 04/18/20 04/18/20 23:29 03:23 04:43 WBC RBC Hgb Hct RDW Plt Count Seg Neuts % (Manual) Lymphocytes % (Manual) Basophils % (Manual) Seg Neutrophils # Man Lymphocytes # (Manual) Monocytes # (Manual) Eosinophils # (Manual) Basophils # (Manual) D-Dimer ABG pH 7.486 H POC ABG pCO2 POC ABG pO2 56.4 L ABG pO2 ABG HCO3 ABG Base Excess ABG Hemoglobin 11.2 L ABG Oxyhemoglobin 92.0 L ABG Sodium 135.1 L ABG Chloride ABG Glucose 138 H Oxyhemoglobin Sodium Potassium Chloride Carbon Dioxide BUN Creatinine Glucose POC Glucose 125 H 119 H Calcium Magnesium Ferritin Alkaline Phosphatase Lactate Dehydrogenase Total Creatine Kinase Troponin T C-Reactive Protein Albumin Triglycerides Cholesterol HDL Cholesterol Arterial Blood Glucose 138 H Arterial Blood Ionized Calcium 4.5 L Urine WBC (Auto) Salicylates Acetaminophen Hepatitis C Antibody 04/18/20 04/18/20 04/18/20 06:48 06:48 06:48 WBC 38.7 H RBC Hgb Hct RDW 16.3 H Plt Count 597 H Seg Neuts % (Manual) Lymphocytes % (Manual) Basophils % (Manual) Seg Neutrophils # Man Lymphocytes # (Manual) Monocytes # (Manual) Eosinophils # (Manual) Basophils # (Manual) D-Dimer 1144.77 H ABG pH POC ABG pCO2 POC ABG pO2 ABG pO2 ABG HCO3 ABG Base Excess ABG Hemoglobin ABG Oxyhemoglobin ABG Sodium ABG Chloride ABG Glucose Oxyhemoglobin Sodium 134 L Potassium Chloride 96.4 L Carbon Dioxide BUN 19 H Creatinine 2.6 H Glucose 104 H POC Glucose Calcium Magnesium Ferritin Alkaline Phosphatase 413 H Lactate Dehydrogenase Total Creatine Kinase Troponin T C-Reactive Protein Albumin 2.8 L Triglycerides Cholesterol HDL Cholesterol Arterial Blood Glucose Arterial Blood Ionized Calcium Urine WBC (Auto) Salicylates Acetaminophen Hepatitis C Antibody 04/18/20 11:33 WBC RBC Hgb Hct RDW Plt Count Seg Neuts % (Manual) Lymphocytes % (Manual) Basophils % (Manual) Seg Neutrophils # Man Lymphocytes # (Manual) Monocytes # (Manual) Eosinophils # (Manual) Basophils # (Manual) D-Dimer ABG pH POC ABG pCO2 POC ABG pO2 ABG pO2 ABG HCO3 ABG Base Excess ABG Hemoglobin ABG Oxyhemoglobin ABG Sodium ABG Chloride ABG Glucose Oxyhemoglobin Sodium Potassium Chloride Carbon Dioxide BUN Creatinine Glucose POC Glucose 195 H Calcium Magnesium Ferritin Alkaline Phosphatase Lactate Dehydrogenase Total Creatine Kinase Troponin T C-Reactive Protein Albumin Triglycerides Cholesterol HDL Cholesterol Arterial Blood Glucose Arterial Blood Ionized Calcium Urine WBC (Auto) Salicylates Acetaminophen Hepatitis C Antibody Chest x-ray: image reviewed (clear) Allied health notes reviewed: nursing
[2020-04-18] MEDS ORDERED: HYDROmorphone 1 MG/1 ML INJ ONE (14:23)
[2020-04-18] MEDS: HYDROmorphone 1 MG/1 ML INJ IV PRN ×3 (14:25→21:44)
[2020-04-18] MEDS ORDERED: cloNIDine TTS 0.1 MG/24 HR PATCH TD SCH (15:00)
--- NOTE | 2020-04-18 15:26 | Progress Note ---
Assessment and Plan Impression: * End stage renal disease * Sepsis * Positive blood cx - likely contaminant --Blood cx: staph epi (05/29 bottles - Apr 06) * Acute hypoxic respiratory failure * Acute encephalopathy * Acute ischemic stroke * UTI * Hx of COVID 19 --SARS Cov2 PCR negative Apr 07 * Metabolic acidosis Plan: * Continue hemodialysis on MWF, due tomorrow, tolerated yesterday * UF as tolerated * Abx per ID * neurology notes reviewed * Vent management per CCM * Dose medications for renal function * AM labs Subjective Date of service: 04/18/20 Principal diagnosis: Ac on ch hypoxemic and hypercapnic resp failure; PUI COVID- 19 infxn; AMS Interval history: Self extubated yesterday but had to be intubated due to respiratory distress, remains intubated this AM with FiO2 50% Objective - Exam Narrative Exam: General appearance: well-developed, well-nourished EENT: ATNC, other (ETT in place) Respiratory: Present: Other (coarse BS) Cardiology: regular, S1S2 Gastrointestinal: obese Integumentary: warm and dry Musculoskeletal: other (Bilateral BKA) - Vital Signs Vital signs: Vital Signs - 12hr 04/18/20 04/18/20 04/18/20 03:44 04:00 05:00 Temperature 98.8 F Pulse Rate 111 H 102 H Pulse Rate [ 98 H From Monitor] Respiratory 32 H 17 Rate Blood Pressure 142/40 132/41 O2 Sat by Pulse 98 99 Oximetry 04/18/20 04/18/20 04/18/20 06:00 07:00 07:48 Temperature Pulse Rate 101 H 105 H 104 H Pulse Rate [ From Monitor] Respiratory 10 L 16 Rate Blood Pressure 103/54 116/51 89/42 O2 Sat by Pulse 98 100 100 Oximetry 04/18/20 04/18/20 04/18/20 08:00 09:00 09:42 Temperature 100 F H Pulse Rate 86 93 H 100 H Pulse Rate [ From Monitor] Respiratory 20 15 Rate Blood Pressure 104/42 124/44 145/55 O2 Sat by Pulse 99 98 Oximetry 04/18/20 04/18/20 04/18/20 10:00 11:00 12:00 Temperature 99.1 F Pulse Rate 108 H 95 H 93 H Pulse Rate [ From Monitor] Respiratory 19 23 16 Rate Blood Pressure 137/109 160/48 166/63 O2 Sat by Pulse 99 97 97 Oximetry 04/18/20 04/18/20 04/18/20 13:00 13:06 13:08 Temperature Pulse Rate 107 H 107 H 93 H Pulse Rate [ From Monitor] Respiratory 42 H 47 H Rate Blood Pressure 169/110 193/127 193/27 O2 Sat by Pulse 98 97 Oximetry 04/18/20 04/18/20 14:10 15:00 Temperature Pulse Rate 90 83 Pulse Rate [ From Monitor] Respiratory 42 H 32 H Rate Blood Pressure 132/51 O2 Sat by Pulse 99 99 Oximetry - Lab 04/18/20 06:48 04/18/20 06:48 Most recent lab results ABG pH 7.486 (7.320-7.450) H 04/18/20 03:23 ABG pCO2 54.0 mm Hg 04/11/20 03:44 ABG pO2 73.4 mm Hg (80.0-90.0) L 04/11/20 03:44 ABG HCO3 26.7 mmol/L (20.0-26.0) H 04/11/20 03:44 ABG O2 Saturation 95.0 % (95.0-99.0) 04/11/20 03:44 Calcium 8.9 mg/dL (8.4-10.2) 04/18/20 06:48 Phosphorus 3.00 mg/dL (2.5-4.5) 04/17/20 05:44 Magnesium 2.00 mg/dL (1.7-2.3) 04/17/20 05:44 Medications & Allergies - Medications Allergies/Adverse Reactions: Allergies carrot Allergy (Verified 07/28/19 12:30) Hives erythromycin base Allergy (Verified 07/30/19 11:26) Hives latex Allergy (Verified 02/18/19 13:20) Rash peas Allergy (Verified 12/20/19 12:37) Hives vancomycin Allergy (Verified 12/31/19 15:46) Hives Home Medications: Home Medications Medication Instructions Recorded Confirmed Last Taken Type Aripiprazole 5 mg PO DAILY 02/18/19 04/06/20 02/17/19 History Benadryl CAP 25 mg PO Q8H PRN 02/18/19 04/06/20 02/17/19 History Calcium Acetate 667 mg PO TIDWM 02/18/19 04/06/20 02/17/19 History Carvedilol 6.25 mg PO Q12H 02/18/19 04/06/20 02/17/19 History Colace CAP 100 mg PO Q12H PRN 02/18/19 04/06/20 02/17/19 History Esomeprazole Magnesium 40 mg PO QDAC 02/18/19 04/06/20 02/17/19 History HumaLOG 10 units SUB-Q TIDWM 02/18/19 04/06/20 02/17/19 History Insulin Detemir (Nf) [Levemir See Protocol SQ QHS 02/18/19 04/06/20 02/17/19 History Flextouch (Nf)] Losartan Potassium 50 mg PO DAILY 02/18/19 04/06/20 02/17/19 History Lyrica 75 mg PO Q12H 02/18/19 04/06/20 02/17/19 History Melatonin 6 mg PO QHS 02/18/19 04/06/20 02/17/19 History Senna 17.2 mg PO QHS PRN 02/18/19 04/06/20 02/17/19 History Venlafaxine HCl [Venlafaxine HCl 150 mg PO QDAC 02/18/19 04/06/20 02/17/19 History ER] Vitamin C 250 mg PO DAILY 02/18/19 04/06/20 02/17/19 History ZyrTEC 10mg cap 10 mg PO DAILY 02/18/19 04/06/20 02/17/19 History Calcium Acetate [Phoslo] 667 mg PO TIDWM capsule 12/22/19 04/06/20 Unknown Rx Fe Fumarate/FA/Mv, Min Comb#15 1 each PO QDAY capsule 12/22/19 04/06/20 Unknown Rx [Hemocyte Plus] Albuterol Mdi (or & Nicu Only) 2.5 puff IH Q4HRT PRN inha 01/12/20 04/06/20 Unknown Rx [ProAir HFA Inhaler] dexAMETHasone [Decadron] 6 mg PO Q12HR #10 tablet 01/12/20 04/06/20 Unknown Rx oxyCODONE 5 mg PO Q6H PRN #10 01/12/20 04/06/20 Unknown Rx Active Medications: Generic Name Dose Route Start Last Admin Trade Name Freq PRN Reason Stop Dose Admin Acetaminophen 650 mg 04/06/20 16:39 Tylenol PO Q6H PRN Pain, Mild (1-3) Lipase/Protease/Amylase 1 each 04/07/20 10:23 Pancreshadi Reyes 10,500 Unit FEEDTUBE PRN PRN For Clogged Feeding Tube Carvedilol 6.25 mg 04/13/20 22:00 04/18/20 09:42 Coreg PO 6.25 mg BID NOEL Administration Clonidine HCl 0.1 mg 04/18/20 15:00 Catapres-Tts Patch TD QWEEK NOEL Dextrose 50 ml 04/09/20 16:30 D50w (25gm) Syringe IV Q30MIN PRN Hypoglycemia Protocol Famotidine 20 mg 04/07/20 10:00 04/18/20 09:42 Pepcid PO 20 mg QDAY NOEL Administration Fentanyl 12.5 mcg 04/16/20 15:24 04/16/20 17:12 Sublimaze IV 12.5 mcg Q4H PRN Administration RESTLESSNESS Heparin Sodium (Porcine) 5,000 unit 04/06/20 22:00 04/18/20 09:42 Heparin SUB-Q 5,000 unit Q12HR NOEL Administration Hydromorphone HCl 1 mg 04/18/20 14:22 04/18/20 14:25 Dilaudid IV 1 mg Q4H PRN Administration Pain , Severe (7-10) Hydrophilic Ointment 1 applic 04/06/20 13:34 Vaseline Lip Therapy TP Q2HR PRN Dry Lips Sodium Chloride 250 mls @ 10 mls/hr 04/07/20 10:03 04/09/20 05:38 Nacl 0.9% 250ml IV 10 mls/hr DIRECT PRN Administration FOR ABX Sodium Chloride 100 mls @ 999 mls/hr 04/07/20 17:00 Nacl 0.9% IV SPRING PRN Hypotension Propofol 1,000 mg in 100 mls @ 3.303 mls/hr 04/17/20 23:00 04/18/20 09:35 Diprivan 10 Mg/Ml IV 0 mcg/kg/min TITR NOEL 0 mls/hr Titration Protocol 5 MCG/KG/MIN Insulin Glargine 10 units 04/17/20 10:00 04/18/20 09:41 Lantus SUB-Q 10 units Q24HR NOEL Administration Insulin Human Regular 0 unit 04/09/20 18:00 04/18/20 12:30 Humulin R SUB-Q Not Given Q6H [facility] Protocol Labetalol HCl 10 mg 04/08/20 17:17 04/18/20 13:06 Labetalol IV 10 mg Q4H PRN Administration Blood Pressure Multi-Ingred Cream/Lotion/Oil/Oint 1 applic 04/06/20 13:34 Artificial Tears Ophth Oint OU Q4HR PRN Dry Eye(s) Ondansetron HCl 4 mg 04/18/20 07:45 Zofran IV Q4H PRN Nausea And Vomiting Simple Syrup 15 ml 04/07/20 10:23 Simple Syrup FEEDTUBE PRN PRN Hypoglycemia Simple Syrup 30 ml 04/07/20 10:23 Simple Syrup FEEDTUBE PRN PRN Hypoglycemia Sodium Bicarbonate 325 mg 04/07/20 10:23 Sodium Bicarbonate FEEDTUBE PRN PRN For Clogged Feeding Tube Sodium Chloride 10 ml 04/06/20 22:00 04/18/20 09:43 Sodium Chloride Flush Syringe 10 Ml IV 10 ml BID NOEL Administration Sodium Chloride 10 ml 04/06/20 16:32 Sodium Chloride Flush Syringe 10 Ml IV PRN PRN LINE FLUSH
--- NOTE | 2020-04-18 16:28 | Progress Note ---
Assessment and Plan Cultures: Blood culture 04/06/2020: 1 out of 4 bottles coag negative staph Urine culture 04/06/2020 <10,000 mixed bacteria Respiratory culture 04/06/2020 poor specimen SARS-CoV-2 PCR negative 04/07/2020 tracheal aspirate culture: Usual respiratory sarah Assessment: 49 years old female with history of asthma, hypertension, end-stage renal disease on hemodialysis, diabetes mellitus, bipolar disorder, morbid obesity, CVA, bilateral BKA's recent COVID-19 infection requiring intubation treated with dexamethasone in December 2019 [facility], [facility] of a jail, admitted on 04/06/2020 secondary to be found unresponsiveness after hemodialysis: #Severe sepsis: Present on admission with hypothermia, leukocytosis, altered mental status, likely due to bilateral pneumonia, bacteremia and UTI. #Bilateral pneumonia: Aspiration pneumonia/HAP. Of note, patient was recently admitted at [facility] in January 2020 requiring intubation for COVID-19 pneumonia. COVID-19 pneumonia was treated with dexamethasone. #Coag negative staph bacteremia: 1/4 bottles, consistent with contaminant. #UTI: Bains catheter with purulent urine. #Acute hypoxemic respiratory failure: intubated, on the vent #End-stage renal disease on hemodialysis: renally dose abx. #Extensive Candidal intertrigo in groin and vagina: treated with fluconazole. #Vancomycin allergy ? Causing hives. I reviewed records from [facility] and there is no documentation of vancomycin allergy, patient initially received vancomycin #Leucocytosis: Patient has chronic leukocytosis, labs from [facility] and [facility] in the past were reviewed. #Chronic Hepatitis C: treatment status unknown. F/U HCV RNA PCR. Recs: f/u HCV RNA PCR Patient has chronic leukocytosis, labs from [facility] and [facility] in the past were reviewed Follow leukocytosis, may be reactive today. Peyman Zayas MD [facility] ([facility] O: [phone] F: [phone] Subjective Date of service: 04/18/20 Principal diagnosis: Ac on ch hypoxemic and hypercapnic resp failure; PUI COVID- 19 infxn; AMS Interval history: Afebrile, white count 38.7. Is a significant jump from yesterday. She is now on BiPAP after being extubated. Imaging personally reviewed: Chest x-ray: Stable bibasilar opacities. Objective - Exam Narrative Exam: Constitutional: sedated, intubated, on the vent Head, Ears, Nose: Normocephalic, atraumatic. Eyes: Conjunctivae/corneas clear. No icterus. No ptosis. Neck: intubated Oral: intubated Cardiovascular: S1, S2 + Respiratory: AE fair bilaterally and equal GI: Soft, bowel sounds + Musculoskeletal: Bilateral BKA. Right chest PermCath Skin: No rash or abscess Hem/Lymphatic: No palpable cervical or supraclavicular nodes. No lymphangitis Psych: no agitation Neurological: sedated, intubated, on the vent, exam limited - Constitutional Vitals: Vital Signs Temp Pulse Resp BP Pulse Ox 99.1 F 81 32 H 143/47 99 04/18/20 12:00 04/18/20 15:56 04/18/20 15:00 04/18/20 15:56 04/18/20 15:00 Temperature -Last 24 Hours Temperature 99.1 F Temperature 100 F Temperature 98.8 F Temperature 98.9 F Temperature 99.1 F - Labs CBC & Chem 7: 04/18/20 06:48 04/18/20 06:48 Labs: Abnormal lab results 04/17/20 04/17/20 04/17/20 Range/Units 17:18 22:04 23:29 WBC (4.5-11.0) K/mm3 RDW (13.2-15.2) % Plt Count (140-440) K/mm3 D-Dimer (0-234) ng/mlDDU ABG pH 7.553 H (7.320-7.450) POC ABG pO2 206.5 H (83-108) mmHg ABG Hemoglobin 11.2 L (12.0-17.5) ABG Oxyhemoglobin 99.1 H (94-98) ABG Sodium 133.0 L (136.0-145.0) mmol/L ABG Glucose 183 H (65-95) mg/dL Sodium (137-145) mmol/L Chloride (98-107) mmol/L BUN (7-17) mg/dL Creatinine (0.6-1.2) mg/dL Glucose (65-100) mg/dL POC Glucose 156 H 125 H (70-105) mg/dL Alkaline Phosphatase (35-129) units/L Albumin (3.9-5) g/dL Arterial Blood Glucose 183 H (65-95) mg/dL Arterial Blood Ionized Calcium 4.4 L (4.6-5.3) mg/dL 04/18/20 04/18/20 04/18/20 Range/Units 03:23 04:43 06:48 WBC 38.7 H (4.5-11.0) K/mm3 RDW 16.3 H (13.2-15.2) % Plt Count 597 H (140-440) K/mm3 D-Dimer (0-234) ng/mlDDU ABG pH 7.486 H (7.320-7.450) POC ABG pO2 56.4 L (83-108) mmHg ABG Hemoglobin 11.2 L (12.0-17.5) ABG Oxyhemoglobin 92.0 L (94-98) ABG Sodium 135.1 L (136.0-145.0) mmol/L ABG Glucose 138 H (65-95) mg/dL Sodium (137-145) mmol/L Chloride (98-107) mmol/L BUN (7-17) mg/dL Creatinine (0.6-1.2) mg/dL Glucose (65-100) mg/dL POC Glucose 119 H (70-105) mg/dL Alkaline Phosphatase (35-129) units/L Albumin (3.9-5) g/dL Arterial Blood Glucose 138 H (65-95) mg/dL Arterial Blood Ionized Calcium 4.5 L (4.6-5.3) mg/dL 04/18/20 04/18/20 04/18/20 Range/Units 06:48 06:48 11:33 WBC (4.5-11.0) K/mm3 RDW (13.2-15.2) % Plt Count (140-440) K/mm3 D-Dimer 1144.77 H (0-234) ng/mlDDU ABG pH (7.320-7.450) POC ABG pO2 (83-108) mmHg ABG Hemoglobin (12.0-17.5) ABG Oxyhemoglobin (94-98) ABG Sodium (136.0-145.0) mmol/L ABG Glucose (65-95) mg/dL Sodium 134 L (137-145) mmol/L Chloride 96.4 L (98-107) mmol/L BUN 19 H (7-17) mg/dL Creatinine 2.6 H (0.6-1.2) mg/dL Glucose 104 H (65-100) mg/dL POC Glucose 195 H (70-105) mg/dL Alkaline Phosphatase 413 H (35-129) units/L Albumin 2.8 L (3.9-5) g/dL Arterial Blood Glucose (65-95) mg/dL Arterial Blood Ionized Calcium (4.6-5.3) mg/dL
--- NOTE | 2020-04-18 17:47 | Gastroenterology Consultation ---
History of Present Illness - Reason for Consult Consult date: 04/18/20 Nausea vomiting Requesting physician: AARON LIM - History of Present Illness History obtained from patient's nurse as patient is unable to provide a history Patient last night had projectile vomiting and there is concerned that aspiration be a risk especially as patient will be extubated soon hopefully. Therefore GI is consulted Patient's nurse reports that since that episode no more episodes of vomiting today Obtained/updated/reviewed patient's current medications Past History Past Medical History: diabetes, ESRD, hypertension, stroke, other (See HPI) Past Surgical History: Other (Bilateral foot amputations) Social history: single. denies: smoking, alcohol abuse, prescription drug abuse Family history: hypertension Medications and Allergies Allergies Allergy/AdvReac Type Severity Reaction Status Date / Time carrot Allergy Hives Verified 07/28/19 12:30 erythromycin base Allergy Hives Verified 07/30/19 11:26 latex Allergy Rash Verified 02/18/19 13:20 peas Allergy Hives Verified 12/20/19 12:37 vancomycin Allergy Hives Verified 12/31/19 15:46 Home Medications Medication Instructions Recorded Confirmed Last Taken Type Aripiprazole 5 mg PO DAILY 02/18/19 04/06/20 02/17/19 History Benadryl CAP 25 mg PO Q8H PRN 02/18/19 04/06/20 02/17/19 History Calcium Acetate 667 mg PO TIDWM 02/18/19 04/06/20 02/17/19 History Carvedilol 6.25 mg PO Q12H 02/18/19 04/06/20 02/17/19 History Colace CAP 100 mg PO Q12H PRN 02/18/19 04/06/20 02/17/19 History Esomeprazole Magnesium 40 mg PO QDAC 02/18/19 04/06/20 02/17/19 History HumaLOG 10 units SUB-Q TIDWM 02/18/19 04/06/20 02/17/19 History Insulin Detemir (Nf) [Levemir See Protocol SQ QHS 02/18/19 04/06/20 02/17/19 History Flextouch (Nf)] Losartan Potassium 50 mg PO DAILY 02/18/19 04/06/20 02/17/19 History Lyrica 75 mg PO Q12H 0904/06/20 02/17/19 History Melatonin 6 mg PO QHS 02/18/19 04/06/20 02/17/19 History Senna 17.2 mg PO QHS PRN 02/18/19 04/06/20 02/17/19 History Venlafaxine HCl [Venlafaxine HCl 150 mg PO QDAC 02/18/19 04/06/20 02/17/19 History ER] Vitamin C 250 mg PO DAILY 02/18/19 04/06/20 02/17/19 History ZyrTEC 10mg cap 10 mg PO DAILY 02/18/19 04/06/20 02/17/19 History Calcium Acetate [Phoslo] 667 mg PO TIDWM capsule 12/22/19 04/06/20 Unknown Rx Fe Fumarate/FA/Mv, Min Comb#15 1 each PO QDAY capsule 12/22/19 04/06/20 Unknown Rx [Hemocyte Plus] Albuterol Mdi (or & Nicu Only) 2.5 puff IH Q4HRT PRN inha 01/12/20 04/06/20 Unknown Rx [ProAir HFA Inhaler] dexAMETHasone [Decadron] 6 mg PO Q12HR #10 tablet 01/12/20 04/06/20 Unknown Rx oxyCODONE 5 mg PO Q6H PRN #10 01/12/20 04/06/20 Unknown Rx Active Meds: Active Medications Acetaminophen (Tylenol) 650 mg PO Q6H PRN PRN Reason: Pain, Mild (1-3) Lipase/Protease/Amylase (Jeremy Dr 10,500 Unit) 1 each FEEDTUBE PRN PRN PRN Reason: For Clogged Feeding Tube Carvedilol (Coreg) 6.25 mg PO BID [facility] Last Admin: 04/18/20 09:42 Dose: 6.25 mg Documented by: Clonidine HCl (Catapres-Tts Patch) 0.1 mg TD QWEEK [facility] Last Admin: 04/18/20 15:56 Dose: 0.1 mg Documented by: Dextrose (D50w (25gm) Syringe) 50 ml IV Q30MIN PRN; Protocol PRN Reason: Hypoglycemia Famotidine (Pepcid) 20 mg PO QDAY [facility] Last Admin: 04/18/20 09:42 Dose: 20 mg Documented by: Fentanyl (Sublimaze) 12.5 mcg IV Q4H PRN PRN Reason: RESTLESSNESS Last Admin: 04/16/20 17:12 Dose: 12.5 mcg Documented by: Heparin Sodium (Porcine) (Heparin) 5,000 unit SUB-Q Q12HR NOEL Last Admin: 04/18/20 09:42 Dose: 5,000 unit Documented by: Hydromorphone HCl (Dilaudid) 1 mg IV Q4H PRN PRN Reason: Pain , Severe (7-10) Last Admin: 04/18/20 14:25 Dose: 1 mg Documented by: Hydrophilic Ointment (Vaseline Lip Therapy) 1 applic TP Q2HR PRN PRN Reason: Dry Lips Sodium Chloride (Nacl 0.9% 250ml) 250 mls @ 10 mls/hr IV DIRECT PRN PRN Reason: FOR ABX Last Admin: 04/09/20 05:38 Dose: 10 mls/hr Documented by: Sodium Chloride (Nacl 0.9%) 100 mls @ 999 mls/hr IV SPRING PRN PRN Reason: Hypotension Propofol (Diprivan 10 Mg/Ml) 1,000 mg in 100 mls @ 3.303 mls/hr IV TITR NOEL; Protocol Last Titration: 04/18/20 09:35 Dose: 0 mcg/kg/min, 0 mls/hr Documented by: Insulin Glargine (Lantus) 10 units SUB-Q Q24HR NOEL Last Admin: 04/18/20 09:41 Dose: 10 units Documented by: Insulin Human Regular (Humulin R) 0 unit SUB-Q Q6H NOEL; Protocol Last Admin: 04/18/20 17:37 Dose: Not Given Documented by: Labetalol HCl (Labetalol) 10 mg IV Q4H PRN PRN Reason: Blood Pressure Last Admin: 04/18/20 13:06 Dose: 10 mg Documented by: Multi-Ingred Cream/Lotion/Oil/Oint (Artificial Tears Ophth Oint) 1 applic OU Q4HR PRN PRN Reason: Dry Eye(s) Ondansetron HCl (Zofran) 4 mg IV Q4H PRN PRN Reason: Nausea And Vomiting Simple Syrup (Simple Syrup) 15 ml FEEDTUBE PRN PRN PRN Reason: Hypoglycemia Simple Syrup (Simple Syrup) 30 ml FEEDTUBE PRN PRN PRN Reason: Hypoglycemia Sodium Bicarbonate (Sodium Bicarbonate) 325 mg FEEDTUBE PRN PRN PRN Reason: For Clogged Feeding Tube Sodium Chloride (Sodium Chloride Flush Syringe 10 Ml) 10 ml IV BID NOEL Last Admin: 04/18/20 09:43 Dose: 10 ml Documented by: Sodium Chloride (Sodium Chloride Flush Syringe 10 Ml) 10 ml IV PRN PRN PRN Reason: LINE FLUSH Review of Systems - Review of Systems ROS unobtainable: due to endotracheal tube Exam - Constitutional Vital Signs: Temp Pulse Resp BP Pulse Ox 99.1 F 83 35 H 160/39 100 04/18/20 12:00 04/18/20 17:01 04/18/20 17:01 04/18/20 17:01 04/18/20 17:01 General appearance: obese, other (Intubated) Extremity abnormal: other (Bilateral BKA) - Integumentary Integumentary: Present: dry - Neurologic Neurological: other (Not responsive) - Labs CBC & Chem 7: 04/18/20 06:48 04/18/20 06:48 Lab Results: Laboratory Results - last 24 hr 04/17/20 04/17/20 04/18/20 22:04 23:29 03:23 WBC RBC Hgb Hct MCV MCH MCHC RDW Plt Count D-Dimer ABG pH 7.553 H 7.486 H POC ABG pCO2 32.8 40.7 POC ABG pO2 206.5 H 56.4 L POC ABG HCO3 28.2 30.0 POC ABG Base Excess 6.0 6.1 ABG Hemoglobin 11.2 L 11.2 L ABG Oxyhemoglobin 99.1 H 92.0 L ABG Methemoglobin 0 0.3 ABG Sodium 133.0 L 135.1 L ABG Potassium 4.0 4.1 ABG Chloride 101.0 100.0 ABG Glucose 183 H 138 H Carboxyhemoglobin 0.6 0.6 FiO2 100 40 Sodium Potassium Chloride Carbon Dioxide Anion Gap BUN Creatinine Estimated GFR BUN/Creatinine Ratio Glucose POC Glucose 125 H Calcium Total Bilirubin AST ALT Alkaline Phosphatase Total Protein Albumin Albumin/Globulin Ratio Arterial Blood Glucose 183 H 138 H Arterial Blood Ionized Calcium 4.4 L 4.5 L 04/18/20 04/18/20 04/18/20 04:43 06:48 06:48 WBC 38.7 H RBC 3.71 Hgb 10.4 Hct 33.4 MCV 90 MCH 28 MCHC 31 RDW 16.3 H Plt Count 597 H D-Dimer 1144.77 H ABG pH POC ABG pCO2 POC ABG pO2 POC ABG HCO3 POC ABG Base Excess ABG Hemoglobin ABG Oxyhemoglobin ABG Methemoglobin ABG Sodium ABG Potassium ABG Chloride ABG Glucose Carboxyhemoglobin FiO2 Sodium Potassium Chloride Carbon Dioxide Anion Gap BUN Creatinine Estimated GFR BUN/Creatinine Ratio Glucose POC Glucose 119 H Calcium Total Bilirubin AST ALT Alkaline Phosphatase Total Protein Albumin Albumin/Globulin Ratio Arterial Blood Glucose Arterial Blood Ionized Calcium 04/18/20 04/18/20 04/18/20 06:48 11:33 17:18 WBC RBC Hgb Hct MCV MCH MCHC RDW Plt Count D-Dimer ABG pH POC ABG pCO2 POC ABG pO2 POC ABG HCO3 POC ABG Base Excess ABG Hemoglobin ABG Oxyhemoglobin ABG Methemoglobin ABG Sodium ABG Potassium ABG Chloride ABG Glucose Carboxyhemoglobin FiO2 Sodium 134 L Potassium 4.2 Chloride 96.4 L Carbon Dioxide 23 Anion Gap 19 BUN 19 H Creatinine 2.6 H Estimated GFR 19 BUN/Creatinine Ratio 7 Glucose 104 H POC Glucose 195 H 162 H Calcium 8.9 Total Bilirubin 0.30 AST 21 ALT 11 Alkaline Phosphatase 413 H Total Protein 7.8 Albumin 2.8 L Albumin/Globulin Ratio 0.6 Arterial Blood Glucose Arterial Blood Ionized Calcium Assessment and Plan Number recurrent episodes of nausea and vomiting. Therefore, has not differential diagnosis would be illness induced gastroparesis causing the vomiting Therefore recommend temporarily treating patient as a gastroparesis patient with slow tube feeds and once patient is extubated low-fat low fiber diet. However, if patient has a good recovery then would anticipate improvement in gastric function As patient is not currently having any more vomiting episodes GI will sign off, please call back with any questions or concerns or if we can be of any further assistance - Patient Problems (1) Nausea & vomiting Current Visit: Yes Status: Acute
[2020-04-18] MEDS: fentaNYL 100 MCG/2 ML INJ IV PRN (19:41)
[2020-04-19] MEDS: INSULIN REGULAR, HUMAN 100 UNIT/ML 3ML VIAL SUB-Q SCH ×4 (00:40→18:06)
[2020-04-19] MEDS: HYDROmorphone 1 MG/1 ML INJ IV PRN ×6 (02:23→23:15)
[2020-04-19 07:31] LABS: Hematocrit 29.5 % (30.3-42.9); Hemoglobin 9.5 gm/dl (10.1-14.3); Mean Corpuscular HGB Conc 32 % (30-34); Mean Corpuscular Volume 89 fl (79-97); Platelet Count 577 K/mm3 (140-440); Red Blood Count 3.33 M/mm3 (3.65-5.03)
--- NOTE | 2020-04-19 07:35 | Progress Note ---
Assessment and Plan Assessment and plan: 49 years old female with history of asthma, hypertension, end-stage renal disease on hemodialysis, diabetes mellitus, bipolar disorder, morbid obesity, CVA, resident of a prison, admitted on 04/06/2020 secondary to be found Unresponsiveness after hemodialysis. Patient is unable to provide history, currently intubated. Patient received hemodialysis and after completion she became unresponsive. Upon EMS arrival, blood pressure was 90/60, HR 88, temperature 97.2. Per records, patient was not complaining of any symptoms. On arrival, temperature 94.1, HR 66, RR 18, O2 sat 87%, BP 131/111. Initial WBC 19.2. Urinalysis showed more than 182 WBCs and moderate leukocyte esterase. Chest x-ray shows bibasilar infiltrates. Patient was intubated in the emergency room to protect airway. Bains catheter was placed yielding purulent urine. Severe sepsis. Present on admission with hypothermia, leukocytosis, altered mental status, likely due to bilateral pneumonia. F/U Blood Cx. Cont. Abx pre ID Bilateral pneumonia. Aspiration pneumonia/HAP illness induced Gastroparesis: Stable Severe UTI. Bains catheter with purulent urine. Acute hypoxemic and hypercapnic respiratory failure. Intubated for airway protection, O2 sats down to 87%. Acute toxic metabolic encephalopathy. Etiology secondary to sepsis Bibasilar atelectasis, End-stage renal disease on hemodialysis Anemia of chronic renal disease vancomycin allergy ? Causing hives. PER ID documentation at other hosptial does not show vanc allergy Chronic leukocytosis, appears so based on review of records from here and [facility] in the past were reviewed. Chronic Hepatitis C: treatment status unknown. F/U HCV RNA PCR. Extensive Candidal intertrigo in groin and vagina. Cont. Fluconazole Intractable nausea with vomiting. 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 Patient remains intubated on mechanical ventilation with AC mode ventilation rate 12, tidal volume 450, FiO2 40% and a PEEP of 6. Continue weaning per protocols. Patient with ESRD and continue TTS schedule per nephrology. Patient does have a history of COVID-19 infection(01/07/20) but negative testing April 07. Follow-up blood/urine/sputum culture. Continue antibiotics per ID recommendations. 04/09/2020. Patient not tolerating PSV 12/6 with FiO2 of 30%. Continue hemod ialysis per nephrology recommendations. Continue IV antibiotics per ID recommendations. Blood cultures no growth to date. Respiratory therapy reports patient with accelerated hypertension and apneic episodes on PSV ventilation. Await pulmonary recommendations. 04/10/2020. Patient remains on mechanical ventilation AC mode rate 12, tidal volume 450, FiO2 30% and a PEEP of 6. Continue PSV trials per protocols. Continue hemodialysis per nephrology recommendations. Continue anti-infectives of fluconazole and cefepime. Follow-up blood/urine/sputum culture. ID, pulmonary and nephrology following. 04/11/2020; patient remains on mechanical ventilation AC mode rate 12, tidal volume 450, FiO2 of 30 and PEEP of 6. Continue PSV trials per protocols. continue hemodialysis per nephrology. ID changed antibiotics to meropenem. Blood culture grew staph epidermidis likey contaminant. 04/12/2020; patient is intubated, patient open eyes spontaneously. Neurology consulted and continue on replacement treatment. EEG is pending. Recommend MRI. Patient is on meropenem per ID recommendation. Pulmonary is following. Patient is on spontaneous breathing trial 04/13/2020; patient is intubated. Patient's blood pressure was high yesterday, amlodipine and hydralazine was added. Overnight his blood pressure was low and will also BP medications. We will continue to follow. 04/14/2020; patient is intubated and blood pressure is on the low side of normal. Patient is on meropenem 5/5. 04/15/2020; patient is intubated, on spontaneous breathing trial. Pulmonary is following. neurology recommend MRI. 04/16/2020; patient is intubated, on spontaneous breathing trial. Pulmonary is following. Neurology recommend MRI once stable. 04/17: Patient showing some clinical improvement. MRI still pending. Continues on restraints weaning trial today. Antibiotics per ID continue aspiration precautions although management by critical care physician. Noted elevated D- dimer level with trend. See ultrasound of the lower extremity was negative for DVT. Prior hospitalization showed elevated D-dimer also. Will discuss with nephrology if patient needs CTA to see if this can be managed with dialysis. This will be done if patient is unable to wean from the vent due to hypoxia. 04/18: Patient required re-intubation last night due to self extubation and decompensation with hypoxia. CXR post extubation showed tube in expected position. Patient also noted to have large projectile vomiting. - Obtain KUB - start Zofran - Hold tube feeds - May benefit from GI eval if vomiting continues. - She is currently being treated for Aspiration Pneumonia with bactermia and Acute cystitis 04/19: Now extubated, Continue supportive care and aspiration precautions. Patient complaining of chronic pain, will resume home dose pain meds and avoid oversedation. No new seizure noted. still awaiting MRI brain. GI input noted: illness induced gastropoaresis, otherwise KUB and LFT normal, will start low fat fiber diet once patient able to tolerate PO. Continue to monitor WBC, increased again today. out patient Sfdc Consultant. Unless indicated by Intesivist will like to monitor patient in the ICU for additional 24 hrs before downgrading. The high probability of a clinically significant, sudden or life threatening deterioration of the [respiratory] system(s) required my full and direct att ention, intervention and personal management. The aggregate critical care time was [35] minutes. This time is in addition to time spent performing reported procedures but includes the following: [x] Data Review and interpretation [x] Patient assessment and monitoring of vital signs [x] Documentation [x] Medication orders and management History Interval history: Patient seen and examined, was extubated last night to BiPAP. Tolerating well. Hospitalist Physical - Physical exam Narrative exam: VITAL SIGNS: Reviewed. GENERAL: The patient appears normally developed, lethargic NOW ON BIPAP vital signs as documented. HEAD: No signs of head trauma. EYES: Pupils are equal. Extraocular motions intact. EARS: Hearing grossly intact. MOUTH: Oropharynx is normal. face mask on. NECK: No adenopathy, no JVD. CHEST: Chest with transmitted breath sounds bilaterally. No wheezes, rales, or rhonchi. CARDIAC: Regular rate and rhythm. S1 and S2, without murmurs, gallops, or rubs. VASCULAR: No Edema. Peripheral pulses normal and equal in all extremities. ABDOMEN: Soft, non tender and non distended. No rebound or guarding, and no masses palpated. Bowel Sounds normal. MUSCULOSKELETAL: Bilateral BKA NEUROLOGIC EXAM: Awake, lethargic ORIENTED to person place and time. Follows some commands. PSYCHIATRIC: Mood normal. SKIN: detail exam as documented in skin assessment - Constitutional Vitals: Temp Pulse Resp BP Pulse Ox 98.7 F 81 20 168/64 100 04/19/20 04:00 04/19/20 06:01 04/19/20 06:01 04/19/20 06:01 04/19/20 06:01 General appearance: Present: severe distress, other (Intubated on mechanical ventilation) HEART Score - HEART Score Troponin: Troponin T 0.224 ng/mL (0.00-0.029) H* 04/06/20 14:30 Results - Labs CBC & Chem 7: 04/19/20 06:24 04/18/20 06:48 Labs: Laboratory Last Values WBC 38.7 K/mm3 (4.5-11.0) H 04/18/20 06:48 RBC 3.71 M/mm3 (3.65-5.03) 04/18/20 06:48 Hgb 10.4 gm/dl (10.1-14.3) 04/18/20 06:48 Hct 33.4 % (30.3-42.9) 04/18/20 06:48 MCV 90 fl (79-97) 04/18/20 06:48 MCH 28 pg (28-32) 04/18/20 06:48 MCHC 31 % (30-34) 04/18/20 06:48 RDW 16.3 % (13.2-15.2) H 04/18/20 06:48 Plt Count 597 K/mm3 (140-440) H 04/18/20 06:48 Add Manual Diff Complete 04/17/20 05:44 Total Counted 100 04/17/20 05:44 Seg Neuts % (Manual) 81.0 % (40.0-70.0) H 04/17/20 05:44 Band Neutrophils % 0 % 04/17/20 05:44 Lymphocytes % (Manual) 11.0 % (13.4-35.0) L 04/17/20 05:44 Reactive Lymphs % (Man) 0 % 04/17/20 05:44 Monocytes % (Manual) 3.0 % (0.0-7.3) 04/17/20 05:44 Eosinophils % (Manual) 3.0 % (0.0-4.3) 04/17/20 05:44 Basophils % (Manual) 1.0 % (0.0-1.8) 04/17/20 05:44 Metamyelocytes % 0 % 04/17/20 05:44 Myelocytes % 1.0 % 04/17/20 05:44 Promyelocytes % 0 % 04/17/20 05:44 Blast Cells % 0 % 04/17/20 05:44 Nucleated RBC % Not Reportable 04/17/20 05:44 Seg Neutrophils # Man 15.8 K/mm3 (1.8-7.7) H 04/17/20 05:44 Band Neutrophils # 0.0 K/mm3 04/17/20 05:44 Lymphocytes # (Manual) 2.1 K/mm3 (1.2-5.4) 04/17/20 05:44 Abs React Lymphs (Man) 0.0 K/mm3 04/17/20 05:44 Monocytes # (Manual) 0.6 K/mm3 (0.0-0.8) 04/17/20 05:44 Eosinophils # (Manual) 0.6 K/mm3 (0.0-0.4) H 04/17/20 05:44 Basophils # (Manual) 0.2 K/mm3 (0.0-0.1) H 04/17/20 05:44 Metamyelocytes # 0.0 K/mm3 04/17/20 05:44 Myelocytes # 0.2 K/mm3 04/17/20 05:44 Promyelocytes # 0.0 K/mm3 04/17/20 05:44 Blast Cells # 0.0 K/mm3 04/17/20 05:44 WBC Morphology Not Reportable 04/17/20 05:44 Hypersegmented Neuts Not Reportable 04/17/20 05:44 Hyposegmented Neuts Not Reportable 04/17/20 05:44 Hypogranular Neuts Not Reportable 04/17/20 05:44 Smudge Cells Not Reportable 04/17/20 05:44 Toxic Granulation Not Reportable 04/17/20 05:44 Toxic Vacuolation Not Reportable 04/17/20 05:44 Dohle Bodies Not Reportable 04/17/20 05:44 Pelger-Huet Anomaly Not Reportable 04/17/20 05:44 Stephanie Rods Not Reportable 04/17/20 05:44 Platelet Estimate Consistent w auto 04/17/20 05:44 Clumped Platelets Not Reportable 04/17/20 05:44 Plt Clumps, EDTA Not Reportable 04/17/20 05:44 Large Platelets Not Reportable 04/17/20 05:44 Giant Platelets Not Reportable 04/17/20 05:44 Platelet Satelliting Not Reportable 04/17/20 05:44 Plt Morphology Comment Not Reportable 04/17/20 05:44 RBC Morphology Normal 04/17/20 05:44 Dimorphic RBCs Not Reportable 04/17/20 05:44 Polychromasia Not Reportable 04/17/20 05:44 Hypochromasia Not Reportable 04/17/20 05:44 Poikilocytosis Not Reportable 04/17/20 05:44 Anisocytosis Not Reportable 04/17/20 05:44 Microcytosis Not Reportable 04/17/20 05:44 Macrocytosis Not Reportable 04/17/20 05:44 Spherocytes Few 04/17/20 05:44 Pappenheimer Bodies Not Reportable 04/17/20 05:44 Sickle Cells Not Reportable 04/17/20 05:44 Target Cells Not Reportable 04/17/20 05:44 Tear Drop Cells Not Reportable 04/17/20 05:44 Ovalocytes Not Reportable 04/17/20 05:44 Stomatocytes Few 04/12/20 08:14 Helmet Cells Not Reportable 04/17/20 05:44 [place] Bodies Not Reportable 04/17/20 05:44 [place] Rings Not Reportable 04/17/20 05:44 Michael Cells Not Reportable 04/17/20 05:44 Bite Cells Not Reportable 04/17/20 05:44 Crenated Cell Not Reportable 04/17/20 05:44 Elliptocytes Not Reportable 04/17/20 05:44 Acanthocytes (Spur) Not Reportable 04/17/20 05:44 Rouleaux Not Reportable 04/17/20 05:44 Hemoglobin C Crystals Not Reportable 04/17/20 05:44 Schistocytes Not Reportable 04/17/20 05:44 Malaria parasites Not Reportable 04/17/20 05:44 Lc Bodies Not Reportable 04/17/20 05:44 Hem Pathologist Commnt No 04/17/20 05:44 PT 13.8 Sec. (12.2-14.9) 04/06/20 14:30 INR 1.04 (0.87-1.13) 04/06/20 14:30 APTT 28.1 Sec. (24.2-36.6) 04/06/20 14:30 D-Dimer 1144.77 ng/mlDDU (0-234) H 04/18/20 06:48 ABG pH 7.486 (7.320-7.450) H 04/18/20 03:23 POC ABG pCO2 40.7 mmHg (32.0-48.0) 04/18/20 03:23 ABG pCO2 54.0 mm Hg 04/11/20 03:44 POC ABG pO2 56.4 mmHg (83-108) L 04/18/20 03:23 ABG pO2 73.4 mm Hg (80.0-90.0) L 04/11/20 03:44 POC ABG HCO3 30.0 04/18/20 03:23 ABG HCO3 26.7 mmol/L (20.0-26.0) H 04/11/20 03:44 ABG O2 Saturation 95.0 % (95.0-99.0) 04/11/20 03:44 ABG O2 Content 14.4 (0.0-44) 04/11/20 03:44 POC ABG Base Excess 6.1 04/18/20 03:23 ABG Base Excess -0.1 mmol/L (-2.0-3.0) 04/11/20 03:44 ABG Hemoglobin 11.2 (12.0-17.5) L 04/18/20 03:23 ABG Oxyhemoglobin 92.0 (94-98) L 04/18/20 03:23 ABG Carboxyhemoglobin 1.6 % (0.0-5.0) 04/11/20 03:44 ABG Methemoglobin 0.3 (0.0-1.5) 04/18/20 03:23 ABG Sodium 135.1 mmol/L (136.0-145.0) L 04/18/20 03:23 ABG Potassium 4.1 mmol/L (3.40-4.50) 04/18/20 03:23 ABG Chloride 100.0 mmol/L (98-107) 04/18/20 03:23 ABG Glucose 138 mg/dL (65-95) H 04/18/20 03:23 Oxyhemoglobin 92.8 % (95.0-99.0) L 04/11/20 03:44 Carboxyhemoglobin 0.6 (0.5-1.5) 04/18/20 03:23 FiO2 40 04/18/20 03:23 Sodium 134 mmol/L (137-145) L 04/18/20 06:48 Potassium 4.2 mmol/L (3.6-5.0) 04/18/20 06:48 Chloride 96.4 mmol/L (98-107) L 04/18/20 06:48 Carbon Dioxide 23 mmol/L (22-30) 04/18/20 06:48 Anion Gap 19 mmol/L 04/18/20 06:48 BUN 19 mg/dL (7-17) H 04/18/20 06:48 Creatinine 2.6 mg/dL (0.6-1.2) H 04/18/20 06:48 Estimated GFR 19 ml/min 04/18/20 06:48 BUN/Creatinine Ratio 7 % 04/18/20 06:48 Glucose 104 mg/dL (65-100) H 04/18/20 06:48 POC Glucose 82 mg/dL (70-105) 04/19/20 05:05 Lactic Acid 0.90 mmol/L (0.7-2.0) 04/13/20 19:10 Calcium 8.9 mg/dL (8.4-10.2) 04/18/20 06:48 Phosphorus 3.00 mg/dL (2.5-4.5) 04/17/20 05:44 Magnesium 2.00 mg/dL (1.7-2.3) 04/17/20 05:44 Ferritin 743.0 ng/mL (10.0-200.0) H 04/07/20 09:34 Total Bilirubin 0.30 mg/dL (0.1-1.2) 04/18/20 06:48 AST 21 units/L (5-40) 04/18/20 06:48 ALT 11 units/L (7-56) 04/18/20 06:48 Alkaline Phosphatase 413 units/L (35-129) H 04/18/20 06:48 Ammonia 43.0 umol/L (25-60) 04/06/20 14:30 Lactate Dehydrogenase 195 units/L (91-180) H 04/07/20 09:34 Total Creatine Kinase 23 units/L (30-135) L 04/06/20 14:30 Total Creatine Kinase 24 units/L (30-135) L 04/06/20 14:30 Troponin T 0.224 ng/mL (0.00-0.029) H* 04/06/20 14:30 C-Reactive Protein 7.50 mg/dL (0.00-1.30) H 04/07/20 09:34 Total Protein 7.8 g/dL (6.3-8.2) 04/18/20 06:48 Albumin 2.8 g/dL (3.9-5) L 04/18/20 06:48 Albumin/Globulin Ratio 0.6 % 04/18/20 06:48 Triglycerides 342 mg/dL (2-149) H 04/06/20 14:30 Cholesterol 223 mg/dL (50-199) H 04/06/20 14:30 LDL Cholesterol Direct 123 mg/dL (50-130) 04/06/20 14:30 HDL Cholesterol 35 mg/dL (40-59) L 04/06/20 14:30 Cholesterol/HDL Ratio 6.37 % 04/06/20 14:30 Procalcitonin 1.59 ng/mL (<0.15) 04/13/20 19:10 TSH 1.320 mlU/mL (0.270-4.200) 04/06/20 14:30 HCG, Qual Negative (Negative) 04/06/20 14:30 Arterial Blood Glucose 138 mg/dL (65-95) H 04/18/20 03:23 Arterial Blood Ionized Calcium 4.5 mg/dL (4.6-5.3) L 04/18/20 03:23 Urine Color Yellow (Yellow) 04/06/20 13:34 Urine Turbidity Turbid (Clear) 04/06/20 13:34 Urine pH 7.0 (5.0-7.0) 04/06/20 13:34 Ur Specific [place] 1.017 (1.003-1.030) 04/06/20 13:34 Urine Protein 100 mg/dl mg/dL (Negative) 04/06/20 13:34 Urine Glucose (UA) 50 mg/dL (Negative) 04/06/20 13:34 Urine Ketones Tr mg/dL (Negative) 04/06/20 13:34 Urine Blood Sm (Negative) 04/06/20 13:34 Urine Nitrite Neg (Negative) 04/06/20 13:34 Urine Bilirubin Neg (Negative) 04/06/20 13:34 Urine Urobilinogen < 2.0 mg/dL (<2.0) 04/06/20 13:34 Ur Leukocyte Esterase Mod (Negative) 04/06/20 13:34 Urine WBC (Auto) > 182.0 /HPF (0.0-6.0) H 04/06/20 13:34 Urine RBC (Auto) 49.0 /HPF (0.0-6.0) 04/06/20 13:34 U Epithel Cells (Auto) 6.0 /HPF (0-13.0) 04/06/20 13:34 Urine Bacteria (Auto) 2+ /HPF (Negative) 04/06/20 13:34 Urine WBC Clumps 3+ /HPF 04/06/20 13:34 Urine Mucus 3+ /HPF 04/06/20 13:34 Salicylates < 0.3 mg/dL (2.8-20.0) L 04/06/20 14:30 Acetaminophen 5.0 ug/mL (10.0-30.0) L 04/06/20 14:30 Plasma/Serum Alcohol < 0.01 % (0-0.07) 04/06/20 14:30 Coronavirus (PCR) Negative (Negative) 04/07/20 Unknown Hepatitis A IgM Ab Non-reactive (NonReactive) 04/07/20 16:38 Hep Bs Antigen Non-reactive (Negative) 04/07/20 16:38 Hep B Core IgM Ab Non-reactive (NonReactive) 04/07/20 16:38 Hepatitis C Antibody Reactive (NonReactive) A 04/07/20 16:38 Blood Type O POSITIVE 04/06/20 14:30 Antibody Screen Negative 04/06/20 14:30 Bains/IV: Voiding Method Incontinent IV Catheter Type [Left Forearm INT / Saline Lock ] IV Catheter Type [Right VAS Cath Subclavian] IV Catheter Type [Left INT / Saline Lock Antecubital] IV Catheter Type [Right INT / Saline Lock Forearm] Active Medications - Current Medications Current Medications: Generic Name Dose Route Start Last Admin Trade Name Freq PRN Reason Stop Dose Admin Acetaminophen 650 mg 04/06/20 16:39 Tylenol PO Q6H PRN Pain, Mild (1-3) Lipase/Protease/Amylase 1 each 04/07/20 10:23 Pancreshadi Reyes 10,500 Unit FEEDTUBE PRN PRN For Clogged Feeding Tube Carvedilol 6.25 mg 04/13/20 22:00 04/18/20 22:16 Coreg PO Not Given BID NOEL Clonidine HCl 0.1 mg 04/18/20 15:00 04/18/20 15:56 Catapres-Tts Patch TD 0.1 mg QWEEK NOEL Administration Dextrose 50 ml 04/09/20 16:30 D50w (25gm) Syringe IV Q30MIN PRN Hypoglycemia Protocol Famotidine 20 mg 04/07/20 10:00 04/18/20 09:42 Pepcid PO 20 mg QDAY NOEL Administration Fentanyl 12.5 mcg 04/16/20 15:24 04/18/20 19:41 Sublimaze IV 12.5 mcg Q4H PRN Administration RESTLESSNESS Heparin Sodium (Porcine) 5,000 unit 04/06/20 22:00 04/18/20 21:44 Heparin SUB-Q 5,000 unit Q12HR NOEL Administration Hydromorphone HCl 1 mg 04/18/20 14:22 04/19/20 06:09 Dilaudid IV 1 mg Q4H PRN Administration Pain , Severe (7-10) Hydrophilic Ointment 1 applic 04/06/20 13:34 Vaseline Lip Therapy TP Q2HR PRN Dry Lips Sodium Chloride 250 mls @ 10 mls/hr 04/07/20 10:03 04/09/20 05:38 Nacl 0.9% 250ml IV 10 mls/hr DIRECT PRN Administration FOR ABX Sodium Chloride 100 mls @ 999 mls/hr 04/07/20 17:00 Nacl 0.9% IV SPR[place] PRN Hypotension Propofol 1,000 mg in 100 mls @ 3.303 mls/hr 04/17/20 23:00 04/18/20 09:35 Diprivan 10 Mg/Ml IV 0 mcg/kg/min TITR NOEL 0 mls/hr Titration Protocol 5 MCG/KG/MIN Insulin Glargine 10 units 04/17/20 10:00 04/18/20 09:41 Lantus SUB-Q 10 units Q24HR NOEL Administration Insulin Human Regular 0 unit 04/09/20 18:00 04/19/20 05:17 Humulin R SUB-Q Not Given Q6H [facility] Protocol Labetalol HCl 10 mg 04/08/20 17:17 04/18/20 13:06 Labetalol IV 10 mg Q4H PRN Administration Blood Pressure Multi-Ingred Cream/Lotion/Oil/Oint 1 applic 04/06/20 13:34 Artificial Tears Ophth Oint OU Q4HR PRN Dry Eye(s) Ondansetron HCl 4 mg 04/18/20 07:45 Zofran IV Q4H PRN Nausea And Vomiting Simple Syrup 15 ml 04/07/20 10:23 Simple Syrup FEEDTUBE PRN PRN Hypoglycemia Simple Syrup 30 ml 04/07/20 10:23 Simple Syrup FEEDTUBE PRN PRN Hypoglycemia Sodium Bicarbonate 325 mg 04/07/20 10:23 Sodium Bicarbonate FEEDTUBE PRN PRN For Clogged Feeding Tube Sodium Chloride 10 ml 04/06/20 22:00 04/18/20 21:45 Sodium Chloride Flush Syringe 10 Ml IV 10 ml BID NOEL Administration Sodium Chloride 10 ml 04/06/20 16:32 Sodium Chloride Flush Syringe 10 Ml IV PRN PRN LINE FLUSH Nutrition/Malnutrition Assess - Dietary Evaluation Nutrition/Malnutrition Findings: Nutrition Notes Start: 04/07/20 08:19 Freq: Status: Active Protocol: Document 04/13/20 14:07 AL (Rec: 04/13/20 14:11 AL [id number]) Co-Sign 04/13/20 14:07 LP Nutrition Notes Initial or Follow up Reassessment Current Diagnosis CKD (stage V CKD),Diabetes, Hypertension,Stroke Other Pertinent Diagnosis on HD, bilateral BKA, AMS Current Diet Nepro 1.8 at 45 mL/hr (goal rate) Labs/Tests BUN 43 Cr 4.9 POC BG 155 Pertinent Medications Humulin Fentanyl KCl 40 mEq (04/12) Height 5 ft 5 in Weight 110.1 kg [place] Body Weight (kg) 56.81 BMI 40.4 Weight Status Morbidly Obese Subjective/Other Information F/U for TF tolerance. Patient is tolerating TF well at goal rate. Percent of energy/protein needs met: 100%/61% Burn Absent Trauma Absent GI Symptoms None Current % PO Negligible Minimum of two criteria No physical signs of malnutrition #1 Nutrition Diagnosis Inadequate oral intake Diagnosis Progress(for reassessment Continues documentation) Is patient on ventilator? Yes Is Patient Ambulatory and/or Out of Bed No REE-([place]-confined to bed) 2063.820 Kcal/Kg value to use for calculation 16 Approximate Energy Requirements Using 1762 kcal/Kg Calculation Used for Recommendations Kcal/kg Additional Notes Protein Needs: up to 142 g (up to 2.5 g/kg IBW) Fluid Needs: 1 mL/kcal Nutrition Intervention Change Diet Order: Continue TF Nutrition Support: Nepro 1.8 at 45 mL/hr (goal rate) Flush 200 mL q4h Kcal 1,944 Protein (gm) 87 Fluid (mL) 785 Goal #1 Meet estimated energy and protein needs as best as possible via TF Anticipated Discharge Needs: Unable to determine at this time Follow-Up By: 04/19/20 Additional Comments F/U for TF tolerance
--- NOTE | 2020-04-19 07:45 | Progress Note ---
Assessment and Plan Acute hypoxemic respiratory failure, extubated Severe sepsis: Present on admission with hypothermia, leukocytosis, altered me ntal status, likely due to bilateral pneumonia, bacteremia and UTI. Bilateral pneumonia: Aspiration pneumonia/HAP. Recent COVID infection Jarrett Morales in January 2020 requiring intubation Acute toxic-metabolic encephalopathy Coag negative staph bacteremia: 05/29 bottles UTI End-stage renal disease on hemodialysis Extensive Candidal intertrigo in groin and vagina Chronic leukocytosis Chronic Hepatitis C Start bronchodilators JORGE LUIS for asthma - Continue to monitor temperature curve and WCC, continue to monitor off antibiotics -CXR, ABG as clinically indicated -Continue to monitor hemodynamics closely - continue to wean supplemental oxygen for target O2 sats > 90% - continue accuchecks with glycemic control per SSI (While critically ill target blood glucose of 140-180 mg/dL; avoid hypoglycemia) - avoid nephrotoxins, renally dose all medications -HD per renal service - continue to avoid benzodiazepines, reduce the possibility of delirium - Maintenance of sleep-wake cycle, avoid delirium - continue aspiration precatuions, HAIR SPECIALIST evaluation today - Stress ulcer and VTE prophylaxis (Heparin, Famotidine) - PT/OT/ROM exercises - continue mobility protocols for pressure ulcer prevention - continue other care per attending / other consultants - discharge planning ongoing concurrently -OK to transfer out of the ICU in am, if she continues to remain stable from a respiratory standpoint. Discussed with Dr. Mancuso CONDITION:FAIR PROGNOSIS: FAIR CODE STATUS: FULL CODE Subjective Date of service: 04/19/20 Principal diagnosis: Ac on ch hypoxemic and hypercapnic resp failure; PUI COVID- 19 infxn; AMS Interval history: Patient is seen today for: Acute on chronic hypoxemic and hypercapnic resp failure; PUI Coronavirus-19 infection; Acute encephalopathy; ESRD; Morbid obesity; DM II; AE-COPD Seen and examined at bedside; 24hour events reviewed; nursing and respiratory care staff consulted; no adverse overnight events reported to me; resting peacefully in bed;complains of shortness of breath, states she has asthma. Extubated doing well on a couple liters of oxygen via NC. On HD and tolerating it well. No fevers, no diarrhea. Objective Vital Signs - 12hr 04/18/20 04/18/20 04/18/20 20:00 21:00 22:00 Temperature 98.5 F Pulse Rate 81 85 81 Pulse Rate [ 82 From Monitor] Respiratory 30 H 32 H 25 H Rate Blood Pressure 140/41 162/55 149/53 O2 Sat by Pulse 100 99 99 Oximetry 04/18/20 04/18/20 04/18/20 22:11 23:00 23:34 Temperature Pulse Rate 81 82 81 Pulse Rate [ From Monitor] Respiratory 28 H 26 H 26 H Rate Blood Pressure 149/53 134/62 134/62 O2 Sat by Pulse 99 100 99 Oximetry 04/19/20 04/19/20 04/19/20 00:00 00:01 01:01 Temperature 98.3 F Pulse Rate 83 81 76 Pulse Rate [ 76 From Monitor] Respiratory 28 H 22 26 H Rate Blood Pressure 159/51 157/34 O2 Sat by Pulse 100 100 100 Oximetry 04/19/20 04/19/20 04/19/20 02:00 03:01 03:26 Temperature Pulse Rate 82 75 74 Pulse Rate [ From Monitor] Respiratory 24 15 30 H Rate Blood Pressure 172/40 159/42 159/42 O2 Sat by Pulse 100 100 100 Oximetry 04/19/20 04/19/20 04/19/20 04:00 05:00 06:01 Temperature 98.7 F Pulse Rate 78 84 81 Pulse Rate [ 79 From Monitor] Respiratory 21 29 H 20 Rate Blood Pressure 143/47 168/64 168/64 O2 Sat by Pulse 100 100 100 Oximetry Constitutional: no acute distress, alert, other (middle aged obese female with mildly increased respiratory effort at rest) Eyes: non-icteric ENT: oropharynx moist, other Neck: supple, no lymphadenopathy, no JVD Effort: normal Ascultation: Bilateral: diminished breath sounds, wheezes Percussion: Bilateral: not dull Cardiovascular: regular rate and rhythm, other (S1,S2) Gastrointestinal: normoactive bowel sounds, soft, non-tender, non-distended (protuberant), other (Bains catheter) Integumentary: erythema (right BKA stump) Extremities: no cyanosis, no ischemia or petechiae, other (bilateral BKAs ) Neurologic: normal mental status, non-focal exam (grossly), pupils equal and round, motor strength normal and Psychiatric: affect normal, anxious CBC and BMP: 04/21/20 04:32 04/21/20 04:32 ABG, PT/INR, D-dimer: ABG ABG pH 7.486 (7.320-7.450) H 04/18/20 03:23 POC ABG pCO2 40.7 mmHg (32.0-48.0) 04/18/20 03:23 ABG pCO2 54.0 mm Hg 04/11/20 03:44 POC ABG pO2 56.4 mmHg (83-108) L 04/18/20 03:23 ABG pO2 73.4 mm Hg (80.0-90.0) L 04/11/20 03:44 POC ABG HCO3 30.0 04/18/20 03:23 ABG O2 Saturation 95.0 % (95.0-99.0) 04/11/20 03:44 PT/INR, D-dimer PT 13.8 Sec. (12.2-14.9) 04/06/20 14:30 INR 1.04 (0.87-1.13) 04/06/20 14:30 D-Dimer 1144.77 ng/mlDDU (0-234) H 04/18/20 06:48 Abnormal lab findings: Abnormal Labs 04/06/20 04/06/20 04/06/20 13:34 14:30 14:30 WBC 19.2 H RBC Hgb Hct RDW 17.8 H Plt Count Seg Neuts % (Manual) 90.0 H Lymphocytes % (Manual) 4.0 L Basophils % (Manual) Seg Neutrophils # Man 17.3 H Lymphocytes # (Manual) 0.8 L Monocytes # (Manual) Eosinophils # (Manual) Basophils # (Manual) D-Dimer ABG pH POC ABG pCO2 POC ABG pO2 ABG pO2 ABG HCO3 ABG Base Excess ABG Hemoglobin ABG Oxyhemoglobin ABG Sodium ABG Chloride ABG Glucose Oxyhemoglobin Sodium Potassium 5.2 H Chloride Carbon Dioxide 17 L BUN 53 H Creatinine 7.8 H Glucose 144 H POC Glucose Calcium Magnesium Ferritin Alkaline Phosphatase 738 H Lactate Dehydrogenase Total Creatine Kinase 23 L Troponin T 0.224 H* C-Reactive Protein Albumin 3.1 L Triglycerides 342 H Cholesterol 223 H HDL Cholesterol 35 L Arterial Blood Glucose Arterial Blood Ionized Calcium Urine WBC (Auto) > 182.0 H Salicylates Acetaminophen Hepatitis C Antibody 04/06/20 04/06/20 04/06/20 14:30 14:30 14:30 WBC RBC Hgb Hct RDW Plt Count Seg Neuts % (Manual) Lymphocytes % (Manual) Basophils % (Manual) Seg Neutrophils # Man Lymphocytes # (Manual) Monocytes # (Manual) Eosinophils # (Manual) Basophils # (Manual) D-Dimer ABG pH POC ABG pCO2 POC ABG pO2 ABG pO2 ABG HCO3 ABG Base Excess ABG Hemoglobin ABG Oxyhemoglobin ABG Sodium ABG Chloride ABG Glucose Oxyhemoglobin Sodium Potassium Chloride Carbon Dioxide BUN Creatinine Glucose POC Glucose Calcium Magnesium 2.50 H Ferritin Alkaline Phosphatase Lactate Dehydrogenase Total Creatine Kinase 24 L Troponin T C-Reactive Protein Albumin Triglycerides Cholesterol HDL Cholesterol Arterial Blood Glucose Arterial Blood Ionized Calcium Urine WBC (Auto) Salicylates < 0.3 L Acetaminophen 5.0 L Hepatitis C Antibody 04/06/20 04/06/20 04/07/20 14:39 20:00 00:48 WBC RBC Hgb Hct RDW Plt Count Seg Neuts % (Manual) Lymphocytes % (Manual) Basophils % (Manual) Seg Neutrophils # Man Lymphocytes # (Manual) Monocytes # (Manual) Eosinophils # (Manual) Basophils # (Manual) D-Dimer ABG pH 7.281 L 7.306 L POC ABG pCO2 POC ABG pO2 78.0 L ABG pO2 133.8 H ABG HCO3 18.3 L ABG Base Excess -7.8 L ABG Hemoglobin 10.8 L 10.8 L ABG Oxyhemoglobin ABG Sodium ABG Chloride 108.0 H ABG Glucose Oxyhemoglobin Sodium Potassium Chloride Carbon Dioxide BUN Creatinine Glucose POC Glucose 69 L Calcium Magnesium Ferritin Alkaline Phosphatase Lactate Dehydrogenase Total Creatine Kinase Troponin T C-Reactive Protein Albumin Triglycerides Cholesterol HDL Cholesterol Arterial Blood Glucose Arterial Blood Ionized Calcium Urine WBC (Auto) Salicylates Acetaminophen Hepatitis C Antibody 04/07/20 04/07/20 04/07/20 09:34 09:34 09:34 WBC RBC Hgb Hct RDW Plt Count Seg Neuts % (Manual) Lymphocytes % (Manual) Basophils % (Manual) Seg Neutrophils # Man Lymphocytes # (Manual) Monocytes # (Manual) Eosinophils # (Manual) Basophils # (Manual) D-Dimer 1063.66 H ABG pH POC ABG pCO2 POC ABG pO2 ABG pO2 ABG HCO3 ABG Base Excess ABG Hemoglobin ABG Oxyhemoglobin ABG Sodium ABG Chloride ABG Glucose Oxyhemoglobin Sodium Potassium Chloride Carbon Dioxide BUN Creatinine Glucose POC Glucose Calcium Magnesium Ferritin 743.0 H Alkaline Phosphatase Lactate Dehydrogenase 195 H Total Creatine Kinase Troponin T C-Reactive Protein 7.50 H Albumin Triglycerides Cholesterol HDL Cholesterol Arterial Blood Glucose Arterial Blood Ionized Calcium Urine WBC (Auto) Salicylates Acetaminophen Hepatitis C Antibody 04/07/20 04/07/20 04/07/20 10:01 16:38 23:51 WBC RBC Hgb Hct RDW Plt Count Seg Neuts % (Manual) Lymphocytes % (Manual) Basophils % (Manual) Seg Neutrophils # Man Lymphocytes # (Manual) Monocytes # (Manual) Eosinophils # (Manual) Basophils # (Manual) D-Dimer ABG pH POC ABG pCO2 POC ABG pO2 79.8 L ABG pO2 ABG HCO3 ABG Base Excess ABG Hemoglobin 10.3 L ABG Oxyhemoglobin ABG Sodium ABG Chloride 109.0 H ABG Glucose Oxyhemoglobin Sodium Potassium Chloride Carbon Dioxide BUN Creatinine Glucose POC Glucose 117 H Calcium Magnesium Ferritin Alkaline Phosphatase Lactate Dehydrogenase Total Creatine Kinase Troponin T C-Reactive Protein Albumin Triglycerides Cholesterol HDL Cholesterol Arterial Blood Glucose Arterial Blood Ionized Calcium 4.5 L Urine WBC (Auto) Salicylates Acetaminophen Hepatitis C Antibody Reactive A 04/08/20 04/08/20 04/08/20 04:58 12:48 17:03 WBC RBC Hgb Hct RDW Plt Count Seg Neuts % (Manual) Lymphocytes % (Manual) Basophils % (Manual) Seg Neutrophils # Man Lymphocytes # (Manual) Monocytes # (Manual) Eosinophils # (Manual) Basophils # (Manual) D-Dimer ABG pH POC ABG pCO2 POC ABG pO2 ABG pO2 ABG HCO3 ABG Base Excess ABG Hemoglobin ABG Oxyhemoglobin ABG Sodium ABG Chloride ABG Glucose Oxyhemoglobin Sodium Potassium Chloride Carbon Dioxide BUN Creatinine Glucose POC Glucose 129 H 155 H 201 H Calcium Magnesium Ferritin Alkaline Phosphatase Lactate Dehydrogenase Total Creatine Kinase Troponin T C-Reactive Protein Albumin Triglycerides Cholesterol HDL Cholesterol Arterial Blood Glucose Arterial Blood Ionized Calcium Urine WBC (Auto) Salicylates Acetaminophen Hepatitis C Antibody 04/08/20 04/08/20 04/09/20 23:49 Unknown 05:31 WBC RBC Hgb Hct RDW Plt Count Seg Neuts % (Manual) Lymphocytes % (Manual) Basophils % (Manual) Seg Neutrophils # Man Lymphocytes # (Manual) Monocytes # (Manual) Eosinophils # (Manual) Basophils # (Manual) D-Dimer ABG pH 7.349 L POC ABG pCO2 POC ABG pO2 ABG pO2 117.3 H ABG HCO3 ABG Base Excess ABG Hemoglobin 7.4 L ABG Oxyhemoglobin ABG Sodium ABG Chloride ABG Glucose Oxyhemoglobin Sodium Potassium Chloride Carbon Dioxide BUN Creatinine Glucose POC Glucose 178 H 248 H Calcium Magnesium Ferritin Alkaline Phosphatase Lactate Dehydrogenase Total Creatine Kinase Troponin T C-Reactive Protein Albumin Triglycerides Cholesterol HDL Cholesterol Arterial Blood Glucose Arterial Blood Ionized Calcium Urine WBC (Auto) Salicylates Acetaminophen Hepatitis C Antibody 04/09/20 04/09/20 04/09/20 11:39 17:35 Unknown WBC RBC Hgb Hct RDW Plt Count Seg Neuts % (Manual) Lymphocytes % (Manual) Basophils % (Manual) Seg Neutrophils # Man Lymphocytes # (Manual) Monocytes # (Manual) Eosinophils # (Manual) Basophils # (Manual) D-Dimer ABG pH POC ABG pCO2 51.6 H POC ABG pO2 ABG pO2 ABG HCO3 ABG Base Excess ABG Hemoglobin 11.4 L ABG Oxyhemoglobin ABG Sodium 130.1 L ABG Chloride ABG Glucose 249 H Oxyhemoglobin Sodium Potassium Chloride Carbon Dioxide BUN Creatinine Glucose POC Glucose 319 H 254 H Calcium Magnesium Ferritin Alkaline Phosphatase Lactate Dehydrogenase Total Creatine Kinase Troponin T C-Reactive Protein Albumin Triglycerides Cholesterol HDL Cholesterol Arterial Blood Glucose 249 H Arterial Blood Ionized Calcium 4.1 L Urine WBC (Auto) Salicylates Acetaminophen Hepatitis C Antibody 04/10/20 04/10/20 04/10/20 00:00 03:15 05:49 WBC RBC Hgb Hct RDW Plt Count Seg Neuts % (Manual) Lymphocytes % (Manual) Basophils % (Manual) Seg Neutrophils # Man Lymphocytes # (Manual) Monocytes # (Manual) Eosinophils # (Manual) Basophils # (Manual) D-Dimer ABG pH POC ABG pCO2 48.2 H POC ABG pO2 ABG pO2 ABG HCO3 ABG Base Excess ABG Hemoglobin 9.9 L ABG Oxyhemoglobin ABG Sodium 135.4 L ABG Chloride ABG Glucose 215 H Oxyhemoglobin Sodium Potassium Chloride Carbon Dioxide BUN Creatinine Glucose POC Glucose 194 H 221 H Calcium Magnesium Ferritin Alkaline Phosphatase Lactate Dehydrogenase Total Creatine Kinase Troponin T C-Reactive Protein Albumin Triglycerides Cholesterol HDL Cholesterol Arterial Blood Glucose 215 H Arterial Blood Ionized Calcium 4.5 L Urine WBC (Auto) Salicylates Acetaminophen Hepatitis C Antibody 04/10/20 04/10/20 04/10/20 08:18 08:18 12:22 WBC 28.9 H RBC 3.38 L Hgb 9.5 L Hct 30.1 L RDW 16.9 H Plt Count Seg Neuts % (Manual) 87.0 H Lymphocytes % (Manual) 9.0 L Basophils % (Manual) 2.0 H Seg Neutrophils # Man 25.1 H Lymphocytes # (Manual) Monocytes # (Manual) Eosinophils # (Manual) Basophils # (Manual) 0.6 H D-Dimer ABG pH POC ABG pCO2 POC ABG pO2 ABG pO2 ABG HCO3 ABG Base Excess ABG Hemoglobin ABG Oxyhemoglobin ABG Sodium ABG Chloride ABG Glucose Oxyhemoglobin Sodium 134 L Potassium 3.5 L D Chloride 94.9 L Carbon Dioxide BUN 38 H Creatinine 5.5 H Glucose 230 H POC Glucose 218 H Calcium Magnesium Ferritin Alkaline Phosphatase Lactate Dehydrogenase Total Creatine Kinase Troponin T C-Reactive Protein Albumin Triglycerides Cholesterol HDL Cholesterol Arterial Blood Glucose Arterial Blood Ionized Calcium Urine WBC (Auto) Salicylates Acetaminophen Hepatitis C Antibody 04/10/20 04/10/20 04/10/20 17:27 18:08 23:29 WBC RBC Hgb Hct RDW Plt Count Seg Neuts % (Manual) Lymphocytes % (Manual) Basophils % (Manual) Seg Neutrophils # Man Lymphocytes # (Manual) Monocytes # (Manual) Eosinophils # (Manual) Basophils # (Manual) D-Dimer ABG pH POC ABG pCO2 POC ABG pO2 ABG pO2 ABG HCO3 ABG Base Excess ABG Hemoglobin ABG Oxyhemoglobin ABG Sodium ABG Chloride ABG Glucose Oxyhemoglobin Sodium Potassium Chloride Carbon Dioxide BUN Creatinine Glucose POC Glucose 218 H 223 H 166 H Calcium Magnesium Ferritin Alkaline Phosphatase Lactate Dehydrogenase Total Creatine Kinase Troponin T C-Reactive Protein Albumin Triglycerides Cholesterol HDL Cholesterol Arterial Blood Glucose Arterial Blood Ionized Calcium Urine WBC (Auto) Salicylates Acetaminophen Hepatitis C Antibody 04/11/20 04/11/20 04/11/20 03:44 05:28 07:39 WBC 26.9 H RBC 3.32 L Hgb 9.4 L Hct 29.5 L RDW 17.2 H Plt Count Seg Neuts % (Manual) 83.0 H Lymphocytes % (Manual) 10.0 L Basophils % (Manual) Seg Neutrophils # Man 22.3 H Lymphocytes # (Manual) Monocytes # (Manual) 1.1 H Eosinophils # (Manual) 0.5 H Basophils # (Manual) D-Dimer ABG pH 7.313 L POC ABG pCO2 POC ABG pO2 ABG pO2 73.4 L ABG HCO3 26.7 H ABG Base Excess ABG Hemoglobin 11.0 L ABG Oxyhemoglobin ABG Sodium ABG Chloride ABG Glucose Oxyhemoglobin 92.8 L Sodium Potassium Chloride Carbon Dioxide BUN Creatinine Glucose POC Glucose 164 H Calcium Magnesium Ferritin Alkaline Phosphatase Lactate Dehydrogenase Total Creatine Kinase Troponin T C-Reactive Protein Albumin Triglycerides Cholesterol HDL Cholesterol Arterial Blood Glucose Arterial Blood Ionized Calcium Urine WBC (Auto) Salicylates Acetaminophen Hepatitis C Antibody 04/11/20 04/11/20 04/11/20 07:39 12:25 19:02 WBC RBC Hgb Hct RDW Plt Count Seg Neuts % (Manual) Lymphocytes % (Manual) Basophils % (Manual) Seg Neutrophils # Man Lymphocytes # (Manual) Monocytes # (Manual) Eosinophils # (Manual) Basophils # (Manual) D-Dimer ABG pH POC ABG pCO2 POC ABG pO2 ABG pO2 ABG HCO3 ABG Base Excess ABG Hemoglobin ABG Oxyhemoglobin ABG Sodium ABG Chloride ABG Glucose Oxyhemoglobin Sodium Potassium Chloride Carbon Dioxide BUN 48 H Creatinine 6.1 H Glucose 122 H POC Glucose 175 H 175 H Calcium 8.3 L Magnesium Ferritin Alkaline Phosphatase Lactate Dehydrogenase Total Creatine Kinase Troponin T C-Reactive Protein Albumin Triglycerides Cholesterol HDL Cholesterol Arterial Blood Glucose Arterial Blood Ionized Calcium Urine WBC (Auto) Salicylates Acetaminophen Hepatitis C Antibody 04/12/20 04/12/20 04/12/20 00:02 05:51 08:14 WBC 28.0 H RBC 3.29 L Hgb 9.5 L Hct 29.1 L RDW 16.9 H Plt Count Seg Neuts % (Manual) 88.0 H Lymphocytes % (Manual) 7.0 L Basophils % (Manual) Seg Neutrophils # Man 24.6 H Lymphocytes # (Manual) Monocytes # (Manual) Eosinophils # (Manual) 0.6 H Basophils # (Manual) D-Dimer ABG pH POC ABG pCO2 POC ABG pO2 ABG pO2 ABG HCO3 ABG Base Excess ABG Hemoglobin ABG Oxyhemoglobin ABG Sodium ABG Chloride ABG Glucose Oxyhemoglobin Sodium Potassium Chloride Carbon Dioxide BUN Creatinine Glucose POC Glucose 146 H 151 H Calcium Magnesium Ferritin Alkaline Phosphatase Lactate Dehydrogenase Total Creatine Kinase Troponin T C-Reactive Protein Albumin Triglycerides Cholesterol HDL Cholesterol Arterial Blood Glucose Arterial Blood Ionized Calcium Urine WBC (Auto) Salicylates Acetaminophen Hepatitis C Antibody 04/12/20 04/12/20 04/12/20 08:14 12:21 17:26 WBC RBC Hgb Hct RDW Plt Count Seg Neuts % (Manual) Lymphocytes % (Manual) Basophils % (Manual) Seg Neutrophils # Man Lymphocytes # (Manual) Monocytes # (Manual) Eosinophils # (Manual) Basophils # (Manual) D-Dimer ABG pH POC ABG pCO2 POC ABG pO2 ABG pO2 ABG HCO3 ABG Base Excess ABG Hemoglobin ABG Oxyhemoglobin ABG Sodium ABG Chloride ABG Glucose Oxyhemoglobin Sodium Potassium 3.3 L Chloride Carbon Dioxide BUN 32 H Creatinine 4.3 H Glucose 188 H POC Glucose 196 H 235 H Calcium Magnesium Ferritin Alkaline Phosphatase Lactate Dehydrogenase Total Creatine Kinase Troponin T C-Reactive Protein Albumin Triglycerides Cholesterol HDL Cholesterol Arterial Blood Glucose Arterial Blood Ionized Calcium Urine WBC (Auto) Salicylates Acetaminophen Hepatitis C Antibody 04/12/20 04/13/20 04/13/20 23:34 03:40 05:33 WBC RBC Hgb Hct RDW Plt Count Seg Neuts % (Manual) Lymphocytes % (Manual) Basophils % (Manual) Seg Neutrophils # Man Lymphocytes # (Manual) Monocytes # (Manual) Eosinophils # (Manual) Basophils # (Manual) D-Dimer ABG pH POC ABG pCO2 POC ABG pO2 ABG pO2 ABG HCO3 ABG Base Excess ABG Hemoglobin 9.4 L ABG Oxyhemoglobin ABG Sodium 133.6 L ABG Chloride ABG Glucose 172 H Oxyhemoglobin Sodium Potassium Chloride Carbon Dioxide BUN Creatinine Glucose POC Glucose 171 H 167 H Calcium Magnesium Ferritin Alkaline Phosphatase Lactate Dehydrogenase Total Creatine Kinase Troponin T C-Reactive Protein Albumin Triglycerides Cholesterol HDL Cholesterol Arterial Blood Glucose 172 H Arterial Blood Ionized Calcium Urine WBC (Auto) Salicylates Acetaminophen Hepatitis C Antibody 04/13/20 04/13/20 04/13/20 07:49 09:09 11:34 WBC RBC Hgb Hct RDW Plt Count Seg Neuts % (Manual) Lymphocytes % (Manual) Basophils % (Manual) Seg Neutrophils # Man Lymphocytes # (Manual) Monocytes # (Manual) Eosinophils # (Manual) Basophils # (Manual) D-Dimer ABG pH POC ABG pCO2 POC ABG pO2 ABG pO2 ABG HCO3 ABG Base Excess ABG Hemoglobin ABG Oxyhemoglobin ABG Sodium ABG Chloride ABG Glucose Oxyhemoglobin Sodium Potassium Chloride Carbon Dioxide 31 H BUN 44 H 43 H Creatinine 5.0 H 4.9 H Glucose 164 H 164 H POC Glucose 155 H Calcium Magnesium Ferritin Alkaline Phosphatase Lactate Dehydrogenase Total Creatine Kinase Troponin T C-Reactive Protein Albumin Triglycerides Cholesterol HDL Cholesterol Arterial Blood Glucose Arterial Blood Ionized Calcium Urine WBC (Auto) Salicylates Acetaminophen Hepatitis C Antibody 04/13/20 04/13/20 04/14/20 17:38 23:40 04:35 WBC RBC Hgb Hct RDW Plt Count Seg Neuts % (Manual) Lymphocytes % (Manual) Basophils % (Manual) Seg Neutrophils # Man Lymphocytes # (Manual) Monocytes # (Manual) Eosinophils # (Manual) Basophils # (Manual) D-Dimer ABG pH POC ABG pCO2 POC ABG pO2 ABG pO2 ABG HCO3 ABG Base Excess ABG Hemoglobin ABG Oxyhemoglobin ABG Sodium ABG Chloride ABG Glucose Oxyhemoglobin Sodium Potassium Chloride Carbon Dioxide BUN Creatinine Glucose POC Glucose 180 H 130 H 121 H Calcium Magnesium Ferritin Alkaline Phosphatase Lactate Dehydrogenase Total Creatine Kinase Troponin T C-Reactive Protein Albumin Triglycerides Cholesterol HDL Cholesterol Arterial Blood Glucose Arterial Blood Ionized Calcium Urine WBC (Auto) Salicylates Acetaminophen Hepatitis C Antibody 04/14/20 04/14/20 04/15/20 12:17 17:06 00:11 WBC RBC Hgb Hct RDW Plt Count Seg Neuts % (Manual) Lymphocytes % (Manual) Basophils % (Manual) Seg Neutrophils # Man Lymphocytes # (Manual) Monocytes # (Manual) Eosinophils # (Manual) Basophils # (Manual) D-Dimer ABG pH POC ABG pCO2 POC ABG pO2 ABG pO2 ABG HCO3 ABG Base Excess ABG Hemoglobin ABG Oxyhemoglobin ABG Sodium ABG Chloride ABG Glucose Oxyhemoglobin Sodium Potassium Chloride Carbon Dioxide BUN Creatinine Glucose POC Glucose 170 H 177 H 156 H Calcium Magnesium Ferritin Alkaline Phosphatase Lactate Dehydrogenase Total Creatine Kinase Troponin T C-Reactive Protein Albumin Triglycerides Cholesterol HDL Cholesterol Arterial Blood Glucose Arterial Blood Ionized Calcium Urine WBC (Auto) Salicylates Acetaminophen Hepatitis C Antibody 04/15/20 04/15/20 04/15/20 05:09 11:45 17:12 WBC RBC Hgb Hct RDW Plt Count Seg Neuts % (Manual) Lymphocytes % (Manual) Basophils % (Manual) Seg Neutrophils # Man Lymphocytes # (Manual) Monocytes # (Manual) Eosinophils # (Manual) Basophils # (Manual) D-Dimer ABG pH POC ABG pCO2 POC ABG pO2 ABG pO2 ABG HCO3 ABG Base Excess ABG Hemoglobin ABG Oxyhemoglobin ABG Sodium ABG Chloride ABG Glucose Oxyhemoglobin Sodium Potassium Chloride Carbon Dioxide BUN Creatinine Glucose POC Glucose 141 H 154 H 177 H Calcium Magnesium Ferritin Alkaline Phosphatase Lactate Dehydrogenase Total Creatine Kinase Troponin T C-Reactive Protein Albumin Triglycerides Cholesterol HDL Cholesterol Arterial Blood Glucose Arterial Blood Ionized Calcium Urine WBC (Auto) Salicylates Acetaminophen Hepatitis C Antibody 04/16/20 04/16/20 04/16/20 05:11 12:13 17:31 WBC RBC Hgb Hct RDW Plt Count Seg Neuts % (Manual) Lymphocytes % (Manual) Basophils % (Manual) Seg Neutrophils # Man Lymphocytes # (Manual) Monocytes # (Manual) Eosinophils # (Manual) Basophils # (Manual) D-Dimer ABG pH POC ABG pCO2 POC ABG pO2 ABG pO2 ABG HCO3 ABG Base Excess ABG Hemoglobin ABG Oxyhemoglobin ABG Sodium ABG Chloride ABG Glucose Oxyhemoglobin Sodium Potassium Chloride Carbon Dioxide BUN Creatinine Glucose POC Glucose 115 H 122 H 188 H Calcium Magnesium Ferritin Alkaline Phosphatase Lactate Dehydrogenase Total Creatine Kinase Troponin T C-Reactive Protein Albumin Triglycerides Cholesterol HDL Cholesterol Arterial Blood Glucose Arterial Blood Ionized Calcium Urine WBC (Auto) Salicylates Acetaminophen Hepatitis C Antibody 04/16/20 04/17/20 04/17/20 23:47 05:44 05:44 WBC 19.5 H RBC 3.26 L Hgb 9.3 L Hct 28.7 L RDW 15.9 H Plt Count 604 H Seg Neuts % (Manual) 81.0 H Lymphocytes % (Manual) 11.0 L Basophils % (Manual) Seg Neutrophils # Man 15.8 H Lymphocytes # (Manual) Monocytes # (Manual) Eosinophils # (Manual) 0.6 H Basophils # (Manual) 0.2 H D-Dimer ABG pH POC ABG pCO2 POC ABG pO2 ABG pO2 ABG HCO3 ABG Base Excess ABG Hemoglobin ABG Oxyhemoglobin ABG Sodium ABG Chloride ABG Glucose Oxyhemoglobin Sodium Potassium Chloride Carbon Dioxide BUN 28 H Creatinine 3.3 H Glucose 130 H POC Glucose 156 H Calcium Magnesium Ferritin Alkaline Phosphatase Lactate Dehydrogenase Total Creatine Kinase Troponin T C-Reactive Protein Albumin Triglycerides Cholesterol HDL Cholesterol Arterial Blood Glucose Arterial Blood Ionized Calcium Urine WBC (Auto) Salicylates Acetaminophen Hepatitis C Antibody 04/17/20 04/17/20 04/17/20 12:57 17:18 22:04 WBC RBC Hgb Hct RDW Plt Count Seg Neuts % (Manual) Lymphocytes % (Manual) Basophils % (Manual) Seg Neutrophils # Man Lymphocytes # (Manual) Monocytes # (Manual) Eosinophils # (Manual) Basophils # (Manual) D-Dimer ABG pH 7.553 H POC ABG pCO2 POC ABG pO2 206.5 H ABG pO2 ABG HCO3 ABG Base Excess ABG Hemoglobin 11.2 L ABG Oxyhemoglobin 99.1 H ABG Sodium 133.0 L ABG Chloride ABG Glucose 183 H Oxyhemoglobin Sodium Potassium Chloride Carbon Dioxide BUN Creatinine Glucose POC Glucose 146 H 156 H Calcium Magnesium Ferritin Alkaline Phosphatase Lactate Dehydrogenase Total Creatine Kinase Troponin T C-Reactive Protein Albumin Triglycerides Cholesterol HDL Cholesterol Arterial Blood Glucose 183 H Arterial Blood Ionized Calcium 4.4 L Urine WBC (Auto) Salicylates Acetaminophen Hepatitis C Antibody 04/17/20 04/18/20 04/18/20 23:29 03:23 04:43 WBC RBC Hgb Hct RDW Plt Count Seg Neuts % (Manual) Lymphocytes % (Manual) Basophils % (Manual) Seg Neutrophils # Man Lymphocytes # (Manual) Monocytes # (Manual) Eosinophils # (Manual) Basophils # (Manual) D-Dimer ABG pH 7.486 H POC ABG pCO2 POC ABG pO2 56.4 L ABG pO2 ABG HCO3 ABG Base Excess ABG Hemoglobin 11.2 L ABG Oxyhemoglobin 92.0 L ABG Sodium 135.1 L ABG Chloride ABG Glucose 138 H Oxyhemoglobin Sodium Potassium Chloride Carbon Dioxide BUN Creatinine Glucose POC Glucose 125 H 119 H Calcium Magnesium Ferritin Alkaline Phosphatase Lactate Dehydrogenase Total Creatine Kinase Troponin T C-Reactive Protein Albumin Triglycerides Cholesterol HDL Cholesterol Arterial Blood Glucose 138 H Arterial Blood Ionized Calcium 4.5 L Urine WBC (Auto) Salicylates Acetaminophen Hepatitis C Antibody 04/18/20 04/18/20 04/18/20 06:48 06:48 06:48 WBC 38.7 H RBC Hgb Hct RDW 16.3 H Plt Count 597 H Seg Neuts % (Manual) Lymphocytes % (Manual) Basophils % (Manual) Seg Neutrophils # Man Lymphocytes # (Manual) Monocytes # (Manual) Eosinophils # (Manual) Basophils # (Manual) D-Dimer 1144.77 H ABG pH POC ABG pCO2 POC ABG pO2 ABG pO2 ABG HCO3 ABG Base Excess ABG Hemoglobin ABG Oxyhemoglobin ABG Sodium ABG Chloride ABG Glucose Oxyhemoglobin Sodium 134 L Potassium Chloride 96.4 L Carbon Dioxide BUN 19 H Creatinine 2.6 H Glucose 104 H POC Glucose Calcium Magnesium Ferritin Alkaline Phosphatase 413 H Lactate Dehydrogenase Total Creatine Kinase Troponin T C-Reactive Protein Albumin 2.8 L Triglycerides Cholesterol HDL Cholesterol Arterial Blood Glucose Arterial Blood Ionized Calcium Urine WBC (Auto) Salicylates Acetaminophen Hepatitis C Antibody 04/18/20 04/18/20 04/19/20 11:33 17:18 06:24 WBC 28.9 H RBC 3.33 L Hgb 9.5 L Hct 29.5 L RDW 16.0 H Plt Count 577 H Seg Neuts % (Manual) Lymphocytes % (Manual) Basophils % (Manual) Seg Neutrophils # Man Lymphocytes # (Manual) Monocytes # (Manual) Eosinophils # (Manual) Basophils # (Manual) D-Dimer ABG pH POC ABG pCO2 POC ABG pO2 ABG pO2 ABG HCO3 ABG Base Excess ABG Hemoglobin ABG Oxyhemoglobin ABG Sodium ABG Chloride ABG Glucose Oxyhemoglobin Sodium Potassium Chloride Carbon Dioxide BUN Creatinine Glucose POC Glucose 195 H 162 H Calcium Magnesium Ferritin Alkaline Phosphatase Lactate Dehydrogenase Total Creatine Kinase Troponin T C-Reactive Protein Albumin Triglycerides Cholesterol HDL Cholesterol Arterial Blood Glucose Arterial Blood Ionized Calcium Urine WBC (Auto) Salicylates Acetaminophen Hepatitis C Antibody Chest x-ray: image reviewed Allied health notes reviewed: RT
[2020-04-19 07:54] LABS: Albumin 2.8 g/dL (3.9-5); Calcium 9.2 mg/dL (8.4-10.2)
[2020-04-19] MEDS: INSULIN GLARGINE 100 UNITS/ML SUB-Q SCH (08:02)
[2020-04-19] MEDS: carvediloL 6.25 MG TAB PO SCH ×2 (09:08→22:06)
[2020-04-19] MEDS: HEPARIN 5,000 UNIT/1 ML VIAL SUB-Q SCH ×2 (09:08→22:06)
[2020-04-19] MEDS: FAMOTIDINE 20 MG TAB PO SCH (09:08)
[2020-04-19] MEDS ORDERED: ALBUTEROL 2.5 MG/3 ML NEBU IH PRN (12:54)
--- NOTE | 2020-04-19 13:39 | Progress Note ---
Assessment and Plan Cultures: Blood culture 04/06/2020: 1 out of 4 bottles coag negative staph Urine culture 04/06/2020 <10,000 mixed bacteria Respiratory culture 04/06/2020 poor specimen SARS-CoV-2 PCR negative 04/07/2020 tracheal aspirate culture: Usual respiratory sarah Assessment: 49 years old female with history of asthma, hypertension, end-stage renal disease on hemodialysis, diabetes mellitus, bipolar disorder, morbid obesity, CVA, bilateral BKA's recent COVID-19 infection requiring intubation treated with dexamethasone in December 2019 [facility], resident of a [facility], admitted on 04/06/2020 secondary to be found unresponsiveness after hemodialysis: #Severe sepsis: Present on admission with hypothermia, leukocytosis, altered mental status, likely due to bilateral pneumonia, bacteremia and UTI. Improving #Bilateral pneumonia: Aspiration pneumonia/HAP. Of note, patient was recently admitted at [facility] in January 2020 requiring intubation for COVID-19 pneumonia. COVID-19 pneumonia was treated with dexamethasone. #Coag negative staph bacteremia: 1/4 bottles, consistent with contaminant. #UTI: Bains catheter with purulent urine. #Acute hypoxemic respiratory failure: Improving, now on 3 L nasal cannula. #End-stage renal disease on hemodialysis: renally dose abx. #Extensive Candidal intertrigo in groin and vagina: treated with fluconazole. #Vancomycin allergy ? Causing hives. I reviewed records from [facility] and there is no documentation of vancomycin allergy, patient initially received vancomycin #Leucocytosis: Patient has chronic leukocytosis, labs [facility] in the past were reviewed. #Chronic Hepatitis C: treatment status unknown. F/U HCV RNA PCR. Recs: f/u HCV RNA PCR Patient has chronic leukocytosis, labs [facility] in the past were reviewed Follow leukocytosis, improving Dr. Beltran taking over tomorrow Peyman Zayas MD [facility] O: [phone] F: [phone] Subjective Date of service: 04/19/20 Principal diagnosis: Ac on ch hypoxemic and hypercapnic resp failure; PUI COVID- 19 infxn; AMS Interval history: Afebrile, white count 28.9 which is improved from yesterday. She is on 3 L nasal cannula. Objective - Exam Narrative Exam: Constitutional: Awake, alert on nasal cannula Head, Ears, Nose: Normocephalic, atraumatic. Eyes: Conjunctivae/corneas clear. No icterus. No ptosis. Neck: intubated Oral: intubated Cardiovascular: S1, S2 + Respiratory: AE fair bilaterally and equal GI: Soft, bowel sounds + Musculoskeletal: Bilateral BKA. Right chest PermCath Skin: No rash or abscess Hem/Lymphatic: No palpable cervical or supraclavicular nodes. No lymphangitis Psych: no agitation Neurological: Awake, alert - Constitutional Vitals: Vital Signs Temp Pulse Resp BP Pulse Ox 97.9 F 94 H 21 109/44 98 04/19/20 11:42 04/19/20 13:30 04/19/20 12:00 04/19/20 13:30 04/19/20 12:00 Temperature -Last 24 Hours Temperature 97.9 F Temperature 97.8 F Temperature 98.7 F Temperature 98.3 F Temperature 98.5 F Temperature 98.8 F - Labs CBC & Chem 7: 04/19/20 06:24 04/19/20 06:24 Labs: Abnormal lab results 04/18/20 04/19/20 04/19/20 Range/Units 17:18 06:24 06:24 WBC 28.9 H (4.5-11.0) K/mm3 RBC 3.33 L (3.65-5.03) M/mm3 Hgb 9.5 L (10.1-14.3) gm/dl Hct 29.5 L (30.3-42.9) % RDW 16.0 H (13.2-15.2) % Plt Count 577 H (140-440) K/mm3 Carbon Dioxide 31 H D (22-30) mmol/L BUN 27 H (7-17) mg/dL Creatinine 3.8 H (0.6-1.2) mg/dL POC Glucose 162 H (70-105) mg/dL Alkaline Phosphatase 343 H (35-129) units/L Albumin 2.8 L (3.9-5) g/dL
--- NOTE | 2020-04-19 16:20 | Progress Note ---
Assessment and Plan Impression: * End stage renal disease * Sepsis * Positive blood cx - likely contaminant --Blood cx: staph epi (05/29 bottles - Apr 06) * Acute hypoxic respiratory failure * Acute encephalopathy * Acute ischemic stroke * UTI * Hx of COVID 19 --SARS Cov2 PCR negative Apr 07 * Metabolic acidosis Plan: * Continue hemodialysis on MWF, due today * UF as tolerated * Abx per ID, input reviewed * neurology notes reviewed * Dose medications for renal function * AM labs Subjective Date of service: 04/19/20 Principal diagnosis: Ac on ch hypoxemic and hypercapnic resp failure; PUI COVID- 19 infxn; AMS Interval history: Extubated this AM- patient is very sleepy, notes pain but unable to provide more information Objective - Exam Narrative Exam: General appearance: well-developed, well-nourished, lethargic and drowsy EENT: ATNC Respiratory: Present: Other (coarse BS) Cardiology: regular, S1S2 Gastrointestinal: obese Integumentary: warm and dry Musculoskeletal: other (Bilateral BKA) - Vital Signs Vital signs: Vital Signs - 12hr 04/19/20 04/19/20 04/19/20 05:00 06:01 07:01 Temperature Pulse Rate 84 81 84 Pulse Rate [ Anterior Bilateral Throughout] Pulse Rate [ From Monitor] Respiratory 29 H 20 22 Rate Respiratory Rate [Anterior Bilateral Throughout] Blood Pressure 168/64 168/64 132/32 O2 Sat by Pulse 100 100 100 Oximetry O2 Sat by Pulse Oximetry [ Anterior Bilateral Throughout] 04/19/20 04/19/20 04/19/20 08:00 08:01 08:30 Temperature 97.8 F Pulse Rate 86 Pulse Rate [ Anterior Bilateral Throughout] Pulse Rate [ 79 From Monitor] Respiratory 14 21 Rate Respiratory Rate [Anterior Bilateral Throughout] Blood Pressure 132/32 O2 Sat by Pulse 100 98 Oximetry O2 Sat by Pulse Oximetry [ Anterior Bilateral Throughout] 04/19/20 04/19/20 04/19/20 08:46 09:01 09:08 Temperature Pulse Rate 98 H 86 Pulse Rate [ Anterior Bilateral Throughout] Pulse Rate [ From Monitor] Respiratory 11 L Rate Respiratory Rate [Anterior Bilateral Throughout] Blood Pressure 145/75 145/75 O2 Sat by Pulse 98 98 Oximetry O2 Sat by Pulse Oximetry [ Anterior Bilateral Throughout] 11/25/20 11/25/20 11/25/20 10:01 11:01 11:42 Temperature 97.9 F Pulse Rate 107 H 96 H 92 H Pulse Rate [ Anterior Bilateral Throughout] Pulse Rate [ From Monitor] Respiratory 17 21 24 Rate Respiratory Rate [Anterior Bilateral Throughout] Blood Pressure 181/49 73/56 108/84 O2 Sat by Pulse 98 96 Oximetry O2 Sat by Pulse 96 Oximetry [ Anterior Bilateral Throughout] 04/19/20 04/19/20 04/19/20 11:45 12:00 12:15 Temperature Pulse Rate 94 H 95 H 95 H Pulse Rate [ Anterior Bilateral Throughout] Pulse Rate [ 79 From Monitor] Respiratory 21 Rate Respiratory Rate [Anterior Bilateral Throughout] Blood Pressure 116/91 131/50 164/72 O2 Sat by Pulse 97 Oximetry O2 Sat by Pulse Oximetry [ Anterior Bilateral Throughout] 04/19/20 04/19/20 04/19/20 12:30 12:45 13:00 Temperature Pulse Rate 98 H 97 H 98 H Pulse Rate [ Anterior Bilateral Throughout] Pulse Rate [ From Monitor] Respiratory Rate Respiratory Rate [Anterior Bilateral Throughout] Blood Pressure 160/65 151/97 178/73 O2 Sat by Pulse Oximetry O2 Sat by Pulse Oximetry [ Anterior Bilateral Throughout] 04/19/20 04/19/20 04/19/20 13:15 13:30 13:45 Temperature Pulse Rate 98 H 94 H 94 H Pulse Rate [ Anterior Bilateral Throughout] Pulse Rate [ From Monitor] Respiratory Rate Respiratory Rate [Anterior Bilateral Throughout] Blood Pressure 138/73 109/44 107/35 O2 Sat by Pulse Oximetry O2 Sat by Pulse Oximetry [ Anterior Bilateral Throughout] 04/19/20 04/19/20 04/19/20 13:46 14:00 14:15 Temperature Pulse Rate 93 H 94 H Pulse Rate [ 93 H Anterior Bilateral Throughout] Pulse Rate [ From Monitor] Respiratory Rate Respiratory 17 Rate [Anterior Bilateral Throughout] Blood Pressure 116/65 112/59 O2 Sat by Pulse Oximetry O2 Sat by Pulse Oximetry [ Anterior Bilateral Throughout] 04/19/20 04/19/20 04/19/20 14:30 14:45 15:00 Temperature Pulse Rate 97 H 92 H 94 H Pulse Rate [ Anterior Bilateral Throughout] Pulse Rate [ From Monitor] Respiratory Rate Respiratory Rate [Anterior Bilateral Throughout] Blood Pressure 130/95 116/49 110/49 O2 Sat by Pulse Oximetry O2 Sat by Pulse Oximetry [ Anterior Bilateral Throughout] 04/19/20 04/19/20 15:17 15:30 Temperature 98.1 F Pulse Rate 90 94 H Pulse Rate [ Anterior Bilateral Throughout] Pulse Rate [ From Monitor] Respiratory 22 Rate Respiratory Rate [Anterior Bilateral Throughout] Blood Pressure 124/40 143/44 O2 Sat by Pulse Oximetry O2 Sat by Pulse 97 Oximetry [ Anterior Bilateral Throughout] - Lab 04/19/20 06:24 04/19/20 06:24 Most recent lab results ABG pH 7.486 (7.320-7.450) H 04/18/20 03:23 ABG pCO2 54.0 mm Hg 04/11/20 03:44 ABG pO2 73.4 mm Hg (80.0-90.0) L 04/11/20 03:44 ABG HCO3 26.7 mmol/L (20.0-26.0) H 04/11/20 03:44 ABG O2 Saturation 95.0 % (95.0-99.0) 04/11/20 03:44 Calcium 9.2 mg/dL (8.4-10.2) 04/19/20 06:24 Phosphorus 3.00 mg/dL (2.5-4.5) 04/17/20 05:44 Magnesium 2.00 mg/dL (1.7-2.3) 04/17/20 05:44 Medications & Allergies - Medications Allergies/Adverse Reactions: Allergies carrot Allergy (Verified 07/28/19 12:30) Hives erythromycin base Allergy (Verified 07/30/19 11:26) Hives latex Allergy (Verified 02/18/19 13:20) Rash peas Allergy (Verified 12/20/19 12:37) Hives vancomycin Allergy (Verified 12/31/19 15:46) Hives Home Medications: Home Medications Medication Instructions Recorded Confirmed Last Taken Type Aripiprazole 5 mg PO DAILY 02/18/19 04/06/20 02/17/19 History Benadryl CAP 25 mg PO Q8H PRN 02/18/19 04/06/20 02/17/19 History Calcium Acetate 667 mg PO TIDWM 02/18/19 04/06/20 02/17/19 History Carvedilol 6.25 mg PO Q12H 02/18/19 04/06/20 02/17/19 History Colace CAP 100 mg PO Q12H PRN 0904/06/20 02/17/19 History Esomeprazole Magnesium 40 mg PO QDAC 02/18/19 04/06/20 02/17/19 History HumaLOG 10 units SUB-Q TIDWM 02/18/19 04/06/20 02/17/19 History Insulin Detemir (Nf) [Levemir See Protocol SQ QHS 02/18/19 04/06/20 02/17/19 History Flextouch (Nf)] Losartan Potassium 50 mg PO DAILY 02/18/19 04/06/20 02/17/19 History Lyrica 75 mg PO Q12H 02/18/19 04/06/20 02/17/19 History Melatonin 6 mg PO QHS 02/18/19 04/06/20 02/17/19 History Senna 17.2 mg PO QHS PRN 02/18/19 04/06/20 02/17/19 History Venlafaxine HCl [Venlafaxine HCl 150 mg PO QDAC 02/18/19 04/06/20 02/17/19 History ER] Vitamin C 250 mg PO DAILY 02/18/19 04/06/20 02/17/19 History ZyrTEC 10mg cap 10 mg PO DAILY 02/18/19 04/06/20 02/17/19 History Calcium Acetate [Phoslo] 667 mg PO TIDWM capsule 12/22/19 04/06/20 Unknown Rx Fe Fumarate/FA/Mv, Min Comb#15 1 each PO QDAY capsule 12/22/19 04/06/20 Unknown Rx [Hemocyte Plus] Albuterol Mdi (or & Nicu Only) 2.5 puff IH Q4HRT PRN inha 01/12/20 04/06/20 Unknown Rx [ProAir HFA Inhaler] dexAMETHasone [Decadron] 6 mg PO Q12HR #10 tablet 01/12/20 04/06/20 Unknown Rx oxyCODONE 5 mg PO Q6H PRN #10 01/12/20 04/06/20 Unknown Rx Active Medications: Generic Name Dose Route Start Last Admin Trade Name Freq PRN Reason Stop Dose Admin Acetaminophen 650 mg 04/06/20 16:39 Tylenol PO Q6H PRN Pain, Mild (1-3) Albuterol 2.5 mg 04/19/20 12:54 Proventil IH Q6HRT PRN Shortness Of Breath Carvedilol 6.25 mg 04/13/20 22:00 04/19/20 09:08 Coreg PO 6.25 mg BID NOEL Administration Clonidine HCl 0.1 mg 04/25/20 08:00 Catapres-Tts Patch TD Tu [facility] Dextrose 50 ml 04/09/20 16:30 D50w (25gm) Syringe IV Q30MIN PRN Hypoglycemia Protocol Famotidine 20 mg 04/07/20 10:00 04/19/20 09:08 Pepcid PO 20 mg QDAY NOEL Administration Heparin Sodium (Porcine) 5,000 unit 04/06/20 22:00 04/19/20 09:08 Heparin SUB-Q 5,000 unit Q12HR NOEL Administration Hydromorphone HCl 1 mg 04/18/20 14:22 04/19/20 16:04 Dilaudid IV 1 mg Q4H PRN Administration Pain , Severe (7-10) Hydrophilic Ointment 1 applic 04/06/20 13:34 Vaseline Lip Therapy TP Q2HR PRN Dry Lips Sodium Chloride 100 mls @ 999 mls/hr 04/07/20 17:00 Nacl 0.9% IV SPRING PRN Hypotension Insulin Glargine 10 units 04/17/20 10:00 04/18/20 09:41 Lantus SUB-Q 10 units Q24HR NOEL Administration Insulin Human Regular 0 unit 04/09/20 18:00 04/19/20 05:17 Humulin R SUB-Q Not Given Q6H [facility] Protocol Labetalol HCl 10 mg 04/08/20 17:17 04/18/20 13:06 Labetalol IV 10 mg Q4H PRN Administration Blood Pressure Multi-Ingred Cream/Lotion/Oil/Oint 1 applic 04/06/20 13:34 Artificial Tears Ophth Oint OU Q4HR PRN Dry Eye(s) Ondansetron HCl 4 mg 04/18/20 07:45 Zofran IV Q4H PRN Nausea And Vomiting Sodium Chloride 10 ml 04/06/20 22:00 04/18/20 21:45 Sodium Chloride Flush Syringe 10 Ml IV 10 ml BID NOEL Administration Sodium Chloride 10 ml 04/06/20 16:32 Sodium Chloride Flush Syringe 10 Ml IV PRN PRN LINE FLUSH
[2020-04-20] MEDS: HYDROmorphone 1 MG/1 ML INJ IV PRN ×4 (03:52→16:59)
[2020-04-20] MEDS: INSULIN REGULAR, HUMAN 100 UNIT/ML 3ML VIAL SUB-Q SCH ×5 (06:46→17:22)
--- NOTE | 2020-04-20 08:10 | Progress Note ---
Subjective Principal diagnosis: Ac on ch hypoxemic and hypercapnic resp failure; PUI COVID- 19 infxn; AMS Interval history: Patient was seen today for follow-up of multiple renal related issues, around 1040 in the morning, She is currently in maintenance of dialysis on Friday No complaints of any chest pain pressure or shortness of breath Interdisciplinary notes that also reviewed Events of 24 hours vitals labs intake output medications were reviewed Past medical history: Reviewed Family history: Reviewed Social history: Reviewed Allergies: Reviewed Physical examination: Vitals: Reviewed HEENT: No pallor or icterus oral mucosa moist Neck: Supple no JVD no thyromegaly Chest: Bilateral clear to auscultation anteriorly Heart: Regular rate and rhythm S1-S2 heard no S3-S4 Abdomen: Soft nontender no voluntary guarding rigidity rebound Extremity: Dry skin less than 1+ peripheral edema Psychiatric: No evidence of agitation and aggression noted Dermatology: No petechial rashes Labs and x-rays: Reviewed from today Assessment and plan #End-stage renal disease: Patient is currently on maintenance hemodialysis on , Friday schedule, there is no acute emergent indication for r enal replacement therapy today Will monitor dialysis-related labs periodically. Hemodialysis nurse to ultrafiltrate as tolerated, systolic blood pressure must be kept above 100, heart rate below 100 #History of Covid 19 infection, follow-up negative on April 07, 2020 #Metabolic acidosis appears to have improved #Sepsis, staph epidermidis 1 out of 4 bottles likely contaminant, respiratory failure improving, acute ischemic stroke #Electrolyte and volume: To monitor and follow #Anemia in end-stage renal disease to monitor hemoglobin and hematocrit #Bone mineral disorder and secondary hyperparathyroidism: Monitor phosphorus and PTH level periodically, #Diet and nutrition: Patient advised to maintain 1200 cc fluid restriction needs to be on protein: 1.5 g/kg body weight daily, supplement should be considered Current lab results were explained to the patient at length in simple [place]ian and patient does have clear understanding All dialysis-related questions have been answered to the patient Time spent in critical care setting 32 minutes All questions were answered and simple [place] We'll continue to follow and make recommendation for renal standpoint Objective - Vital Signs Vital signs: Vital Signs - 12hr 04/19/20 04/19/20 04/19/20 20:29 21:01 21:31 Temperature Pulse Rate 93 H 92 H 92 H Pulse Rate [ From Monitor] Respiratory 23 Rate Blood Pressure 111/46 150/58 150/58 O2 Sat by Pulse 98 94 95 Oximetry 04/19/20 04/19/20 04/19/20 22:00 23:01 23:15 Temperature Pulse Rate 98 H 96 H 99 H Pulse Rate [ From Monitor] Respiratory Rate Blood Pressure 153/57 165/45 165/45 O2 Sat by Pulse 93 96 Oximetry 04/20/20 04/20/20 04/20/20 00:00 00:01 01:01 Temperature 98.9 F Pulse Rate 90 90 88 Pulse Rate [ 90 From Monitor] Respiratory Rate Blood Pressure 161/38 150/64 O2 Sat by Pulse 95 100 Oximetry 04/20/20 04/20/20 04/20/20 02:01 03:00 04:00 Temperature 98.7 F Pulse Rate 91 H 90 96 H Pulse Rate [ 96 H From Monitor] Respiratory Rate Blood Pressure 157/63 150/76 144/90 O2 Sat by Pulse 100 100 100 Oximetry 04/20/20 04/20/20 05:01 06:01 Temperature Pulse Rate 87 77 Pulse Rate [ From Monitor] Respiratory Rate Blood Pressure 143/36 129/39 O2 Sat by Pulse 100 100 Oximetry - Lab 04/20/20 07:50 04/20/20 07:50 Most recent lab results ABG pH 7.486 (7.320-7.450) H 04/18/20 03:23 ABG pCO2 54.0 mm Hg 04/11/20 03:44 ABG pO2 73.4 mm Hg (80.0-90.0) L 04/11/20 03:44 ABG HCO3 26.7 mmol/L (20.0-26.0) H 04/11/20 03:44 ABG O2 Saturation 95.0 % (95.0-99.0) 04/11/20 03:44 Calcium 9.2 mg/dL (8.4-10.2) 04/19/20 06:24 Phosphorus 3.00 mg/dL (2.5-4.5) 04/17/20 05:44 Magnesium 2.00 mg/dL (1.7-2.3) 04/17/20 05:44 Medications & Allergies - Medications Allergies/Adverse Reactions: Allergies carrot Allergy (Verified 07/28/19 12:30) Hives erythromycin base Allergy (Verified 07/30/19 11:26) Hives latex Allergy (Verified 02/18/19 13:20) Rash peas Allergy (Verified 12/20/19 12:37) Hives vancomycin Allergy (Verified 12/31/19 15:46) Hives Home Medications: Home Medications Medication Instructions Recorded Confirmed Last Taken Type Aripiprazole 5 mg PO DAILY 02/18/19 04/06/20 02/17/19 History Benadryl CAP 25 mg PO Q8H PRN 02/18/19 04/06/20 02/17/19 History Calcium Acetate 667 mg PO TIDWM 02/18/19 04/06/20 02/17/19 History Carvedilol 6.25 mg PO Q12H 02/18/19 04/06/20 02/17/19 History Colace CAP 100 mg PO Q12H PRN 02/18/19 04/06/20 02/17/19 History Esomeprazole Magnesium 40 mg PO QDAC 02/18/19 04/06/20 02/17/19 History HumaLOG 10 units SUB-Q TIDWM 02/18/19 04/06/20 02/17/19 History Insulin Detemir (Nf) [Levemir See Protocol SQ QHS 02/18/19 04/06/20 02/17/19 History Flextouch (Nf)] Losartan Potassium 50 mg PO DAILY 02/18/19 04/06/20 02/17/19 History Lyrica 75 mg PO Q12H 02/18/19 04/06/20 02/17/19 History Melatonin 6 mg PO QHS 02/18/19 04/06/20 02/17/19 History Senna 17.2 mg PO QHS PRN 02/18/19 04/06/20 02/17/19 History Venlafaxine HCl [Venlafaxine HCl 150 mg PO QDAC 02/18/19 04/06/20 02/17/19 History ER] Vitamin C 250 mg PO DAILY 02/18/19 04/06/20 02/17/19 History ZyrTEC 10mg cap 10 mg PO DAILY 02/18/19 04/06/20 02/17/19 History Calcium Acetate [Phoslo] 667 mg PO TIDWM capsule 12/22/19 04/06/20 Unknown Rx Fe Fumarate/FA/Mv, Min Comb#15 1 each PO QDAY capsule 12/22/19 04/06/20 Unknown Rx [Hemocyte Plus] Albuterol Mdi (or & Nicu Only) 2.5 puff IH Q4HRT PRN inha 01/12/20 04/06/20 Unknown Rx [ProAir HFA Inhaler] dexAMETHasone [Decadron] 6 mg PO Q12HR #10 tablet 01/12/20 04/06/20 Unknown Rx oxyCODONE 5 mg PO Q6H PRN #10 01/12/20 04/06/20 Unknown Rx Active Medications: Generic Name Dose Route Start Last Admin Trade Name Freq PRN Reason Stop Dose Admin Acetaminophen 650 mg 04/06/20 16:39 Tylenol PO Q6H PRN Pain, Mild (1-3) Albuterol 2.5 mg 04/19/20 12:54 04/19/20 17:11 Proventil IH 2.5 mg Q6HRT PRN Administration Shortness Of Breath Carvedilol 6.25 mg 04/13/20 22:00 04/19/20 22:06 Coreg PO Not Given BID NOEL Clonidine HCl 0.1 mg 04/25/20 08:00 Catapres-Tts Patch TD Tu [facility] Dextrose 50 ml 04/09/20 16:30 D50w (25gm) Syringe IV Q30MIN PRN Hypoglycemia Protocol Famotidine 20 mg 04/07/20 10:00 04/19/20 09:08 Pepcid PO 20 mg QDAY NOEL Administration Heparin Sodium (Porcine) 5,000 unit 04/06/20 22:00 04/19/20 22:06 Heparin SUB-Q 5,000 unit Q12HR NOEL Administration Hydromorphone HCl 1 mg 04/18/20 14:22 04/20/20 03:52 Dilaudid IV 1 mg Q4H PRN Administration Pain , Severe (7-10) Hydrophilic Ointment 1 applic 04/06/20 13:34 Vaseline Lip Therapy TP Q2HR PRN Dry Lips Sodium Chloride 100 mls @ 999 mls/hr 04/07/20 17:00 Nacl 0.9% IV SPRING PRN Hypotension Insulin Glargine 10 units 04/17/20 10:00 04/19/20 08:02 Lantus SUB-Q Not Given Q24HR NOEL Insulin Human Regular 0 unit 04/09/20 18:00 04/20/20 08:07 Humulin R SUB-Q Not Given Q6H [facility] Protocol Labetalol HCl 10 mg 04/08/20 17:17 04/19/20 23:15 Labetalol IV 10 mg Q4H PRN Administration Blood Pressure Multi-Ingred Cream/Lotion/Oil/Oint 1 applic 04/06/20 13:34 Artificial Tears Ophth Oint OU Q4HR PRN Dry Eye(s) Ondansetron HCl 4 mg 04/18/20 07:45 Zofran IV Q4H PRN Nausea And Vomiting Sodium Chloride 10 ml 04/06/20 22:00 04/19/20 22:08 Sodium Chloride Flush Syringe 10 Ml IV 10 ml BID NOEL Administration Sodium Chloride 10 ml 04/06/20 16:32 Sodium Chloride Flush Syringe 10 Ml IV PRN PRN LINE FLUSH
[2020-04-20 08:43] LABS: Hematocrit 30.6 % (30.3-42.9); Hemoglobin 9.6 gm/dl (10.1-14.3); Mean Corpuscular HGB Conc 31 % (30-34); Mean Corpuscular Volume 89 fl (79-97); Platelet Count 530 K/mm3 (140-440); Red Blood Count 3.43 M/mm3 (3.65-5.03); Red Cell Distribution Width 15.9 % (13.2-15.2)
[2020-04-20] MEDS: HEPARIN 5,000 UNIT/1 ML VIAL SUB-Q SCH ×2 (09:09→22:42)
[2020-04-20] MEDS: INSULIN GLARGINE 100 UNITS/ML SUB-Q SCH (09:15)
[2020-04-20] MEDS: FAMOTIDINE 20 MG TAB PO SCH (09:15)
[2020-04-20] MEDS: carvediloL 6.25 MG TAB PO SCH ×2 (09:15→22:42)
--- NOTE | 2020-04-20 09:54 | Progress Note ---
Assessment and Plan Acute on chronic hypoxemic and hypercapnic respiratory failure. Coronavirus-19 infection. Acute encephalopathy. Bibasilar atelectasis. End-stage renal disease, on dialysis. Morbid obesity. History of a cerebrovascular accident. Diabetes type 2. History of chronic obstructive pulmonary disease. History of anemia. -continue BIPAP scheduled qhs but reduce rate to 12/min - continue HD/UF for toxin and volume clearance - continue care as below otherwise; - s/p AB's per ID rec's ([facility]) - continue to wean supplemental oxygen for target O2 sat's > 90% acutely - continue lung protective strategies - continue bronchodilators with pulmonary hygiene per RT - wean per pulmonary driven protocols otherwise - continue accuchecks with glycemic control per SSI for target blood glucose of < 180 mg/dL; avoid hypoglycemia - avoid nephrotoxins, renally dose all medications - continue to avoid benzodiazepine's, reduce the possibility of delirium - prn analgesia per pain score - Maintenance of sleep-wake cycle, avoid delirium - continue enteral nutritional support at goal rate as tolerated - G.I. & VTE prophylaxis - PT/OT/ROM exercises - continue mobility protocols for pressure ulcer prophylaxis - Monitor hemodynamics closely - continue other care per attending / other consultants - discharge planning ongoing concurrently .... Re-evaluate in am & prn ...will transfer to telemetry floor Subjective Date of service: 04/20/20 Principal diagnosis: Ac on ch hypoxemic and hypercapnic resp failure; PUI COVID- 19 infxn; AMS Interval history: Patient is seen today for: Acute on chronic hypoxemic and hypercapnic resp failure; PUI Coronavirus-19 infection; Acute encephalopathy; ESRD; Morbid obesity; DM II; AE-COPD Seen and examined at bedside; 24hour events reviewed; nursing and respiratory ca re staff consulted; no adverse overnight events reported to me; resting peacefully in bed; on supplemental oxygen at 2-3 LNC; denies acute chest pains; No N/V/F/C; tolerated BIPAP overnight Objective Vital Signs - 12hr 04/19/20 04/19/20 04/19/20 22:00 23:01 23:15 Temperature Pulse Rate 98 H 96 H 99 H Pulse Rate [ From Monitor] Blood Pressure 153/57 165/45 165/45 O2 Sat by Pulse 93 96 Oximetry 04/20/20 04/20/20 04/20/20 00:00 00:01 01:01 Temperature 98.9 F Pulse Rate 90 90 88 Pulse Rate [ 90 From Monitor] Blood Pressure 161/38 150/64 O2 Sat by Pulse 95 100 Oximetry 04/20/20 04/20/20 04/20/20 02:01 03:00 04:00 Temperature 98.7 F Pulse Rate 91 H 90 96 H Pulse Rate [ 96 H From Monitor] Blood Pressure 157/63 150/76 144/90 O2 Sat by Pulse 100 100 100 Oximetry 04/20/20 04/20/20 04/20/20 05:01 06:01 07:00 Temperature Pulse Rate 87 77 79 Pulse Rate [ From Monitor] Blood Pressure 143/36 129/39 121/33 O2 Sat by Pulse 100 100 99 Oximetry 04/20/20 04/20/20 04/20/20 08:00 08:01 09:01 Temperature 98.9 F Pulse Rate 87 90 94 H Pulse Rate [ 87 From Monitor] Blood Pressure 140/41 160/43 O2 Sat by Pulse 98 100 95 Oximetry 04/20/20 09:15 Temperature Pulse Rate 93 H Pulse Rate [ From Monitor] Blood Pressure 160/43 O2 Sat by Pulse Oximetry Constitutional: no acute distress, other (middle aged obese female with mildly increased respiratory effort at rest) Eyes: non-icteric ENT: oropharynx moist, other (extubated) Neck: supple, no lymphadenopathy, no JVD Effort: normal Ascultation: Bilateral: diminished breath sounds, rhonchi (scant) Percussion: Bilateral: not dull Cardiovascular: regular rate and rhythm, other (S1,S2) Gastrointestinal: normoactive bowel sounds, soft, non-tender, non-distended (protuberant) Integumentary: erythema (right BKA stump) Extremities: no cyanosis, no ischemia or petechiae, other (bilateral BKAs ) Neurologic: non-focal exam (grossly), pupils equal and round, motor strength normal and, unable to assess Psychiatric: mood appropriate, affect normal CBC and BMP: 04/20/20 07:50 04/20/20 07:50 ABG, PT/INR, D-dimer: ABG ABG pH 7.486 (7.320-7.450) H 04/18/20 03:23 POC ABG pCO2 40.7 mmHg (32.0-48.0) 04/18/20 03:23 ABG pCO2 54.0 mm Hg 04/11/20 03:44 POC ABG pO2 56.4 mmHg (83-108) L 04/18/20 03:23 ABG pO2 73.4 mm Hg (80.0-90.0) L 04/11/20 03:44 POC ABG HCO3 30.0 04/18/20 03:23 ABG O2 Saturation 95.0 % (95.0-99.0) 04/11/20 03:44 PT/INR, D-dimer PT 13.8 Sec. (12.2-14.9) 04/06/20 14:30 INR 1.04 (0.87-1.13) 04/06/20 14:30 D-Dimer 1144.77 ng/mlDDU (0-234) H 04/18/20 06:48 Abnormal lab findings: Abnormal Labs 04/06/20 04/06/20 04/06/20 13:34 14:30 14:30 WBC 19.2 H RBC Hgb Hct RDW 17.8 H Plt Count Seg Neuts % (Manual) 90.0 H Lymphocytes % (Manual) 4.0 L Basophils % (Manual) Seg Neutrophils # Man 17.3 H Lymphocytes # (Manual) 0.8 L Monocytes # (Manual) Eosinophils # (Manual) Basophils # (Manual) D-Dimer ABG pH POC ABG pCO2 POC ABG pO2 ABG pO2 ABG HCO3 ABG Base Excess ABG Hemoglobin ABG Oxyhemoglobin ABG Sodium ABG Chloride ABG Glucose Oxyhemoglobin Sodium Potassium 5.2 H Chloride Carbon Dioxide 17 L BUN 53 H Creatinine 7.8 H Glucose 144 H POC Glucose Calcium Magnesium Ferritin Alkaline Phosphatase 738 H Lactate Dehydrogenase Total Creatine Kinase 23 L Troponin T 0.224 H* C-Reactive Protein Albumin 3.1 L Triglycerides 342 H Cholesterol 223 H HDL Cholesterol 35 L Arterial Blood Glucose Arterial Blood Ionized Calcium Urine WBC (Auto) > 182.0 H Salicylates Acetaminophen Hepatitis C Antibody 04/06/20 04/06/20 04/06/20 14:30 14:30 14:30 WBC RBC Hgb Hct RDW Plt Count Seg Neuts % (Manual) Lymphocytes % (Manual) Basophils % (Manual) Seg Neutrophils # Man Lymphocytes # (Manual) Monocytes # (Manual) Eosinophils # (Manual) Basophils # (Manual) D-Dimer ABG pH POC ABG pCO2 POC ABG pO2 ABG pO2 ABG HCO3 ABG Base Excess ABG Hemoglobin ABG Oxyhemoglobin ABG Sodium ABG Chloride ABG Glucose Oxyhemoglobin Sodium Potassium Chloride Carbon Dioxide BUN Creatinine Glucose POC Glucose Calcium Magnesium 2.50 H Ferritin Alkaline Phosphatase Lactate Dehydrogenase Total Creatine Kinase 24 L Troponin T C-Reactive Protein Albumin Triglycerides Cholesterol HDL Cholesterol Arterial Blood Glucose Arterial Blood Ionized Calcium Urine WBC (Auto) Salicylates < 0.3 L Acetaminophen 5.0 L Hepatitis C Antibody 04/06/20 04/06/20 04/07/20 14:39 20:00 00:48 WBC RBC Hgb Hct RDW Plt Count Seg Neuts % (Manual) Lymphocytes % (Manual) Basophils % (Manual) Seg Neutrophils # Man Lymphocytes # (Manual) Monocytes # (Manual) Eosinophils # (Manual) Basophils # (Manual) D-Dimer ABG pH 7.281 L 7.306 L POC ABG pCO2 POC ABG pO2 78.0 L ABG pO2 133.8 H ABG HCO3 18.3 L ABG Base Excess -7.8 L ABG Hemoglobin 10.8 L 10.8 L ABG Oxyhemoglobin ABG Sodium ABG Chloride 108.0 H ABG Glucose Oxyhemoglobin Sodium Potassium Chloride Carbon Dioxide BUN Creatinine Glucose POC Glucose 69 L Calcium Magnesium Ferritin Alkaline Phosphatase Lactate Dehydrogenase Total Creatine Kinase Troponin T C-Reactive Protein Albumin Triglycerides Cholesterol HDL Cholesterol Arterial Blood Glucose Arterial Blood Ionized Calcium Urine WBC (Auto) Salicylates Acetaminophen Hepatitis C Antibody 04/07/20 04/07/20 04/07/20 09:34 09:34 09:34 WBC RBC Hgb Hct RDW Plt Count Seg Neuts % (Manual) Lymphocytes % (Manual) Basophils % (Manual) Seg Neutrophils # Man Lymphocytes # (Manual) Monocytes # (Manual) Eosinophils # (Manual) Basophils # (Manual) D-Dimer 1063.66 H ABG pH POC ABG pCO2 POC ABG pO2 ABG pO2 ABG HCO3 ABG Base Excess ABG Hemoglobin ABG Oxyhemoglobin ABG Sodium ABG Chloride ABG Glucose Oxyhemoglobin Sodium Potassium Chloride Carbon Dioxide BUN Creatinine Glucose POC Glucose Calcium Magnesium Ferritin 743.0 H Alkaline Phosphatase Lactate Dehydrogenase 195 H Total Creatine Kinase Troponin T C-Reactive Protein 7.50 H Albumin Triglycerides Cholesterol HDL Cholesterol Arterial Blood Glucose Arterial Blood Ionized Calcium Urine WBC (Auto) Salicylates Acetaminophen Hepatitis C Antibody 04/07/20 04/07/20 04/07/20 10:01 16:38 23:51 WBC RBC Hgb Hct RDW Plt Count Seg Neuts % (Manual) Lymphocytes % (Manual) Basophils % (Manual) Seg Neutrophils # Man Lymphocytes # (Manual) Monocytes # (Manual) Eosinophils # (Manual) Basophils # (Manual) D-Dimer ABG pH POC ABG pCO2 POC ABG pO2 79.8 L ABG pO2 ABG HCO3 ABG Base Excess ABG Hemoglobin 10.3 L ABG Oxyhemoglobin ABG Sodium ABG Chloride 109.0 H ABG Glucose Oxyhemoglobin Sodium Potassium Chloride Carbon Dioxide BUN Creatinine Glucose POC Glucose 117 H Calcium Magnesium Ferritin Alkaline Phosphatase Lactate Dehydrogenase Total Creatine Kinase Troponin T C-Reactive Protein Albumin Triglycerides Cholesterol HDL Cholesterol Arterial Blood Glucose Arterial Blood Ionized Calcium 4.5 L Urine WBC (Auto) Salicylates Acetaminophen Hepatitis C Antibody Reactive A 04/08/20 04/08/20 04/08/20 04:58 12:48 17:03 WBC RBC Hgb Hct RDW Plt Count Seg Neuts % (Manual) Lymphocytes % (Manual) Basophils % (Manual) Seg Neutrophils # Man Lymphocytes # (Manual) Monocytes # (Manual) Eosinophils # (Manual) Basophils # (Manual) D-Dimer ABG pH POC ABG pCO2 POC ABG pO2 ABG pO2 ABG HCO3 ABG Base Excess ABG Hemoglobin ABG Oxyhemoglobin ABG Sodium ABG Chloride ABG Glucose Oxyhemoglobin Sodium Potassium Chloride Carbon Dioxide BUN Creatinine Glucose POC Glucose 129 H 155 H 201 H Calcium Magnesium Ferritin Alkaline Phosphatase Lactate Dehydrogenase Total Creatine Kinase Troponin T C-Reactive Protein Albumin Triglycerides Cholesterol HDL Cholesterol Arterial Blood Glucose Arterial Blood Ionized Calcium Urine WBC (Auto) Salicylates Acetaminophen Hepatitis C Antibody 04/08/20 04/08/20 04/09/20 23:49 Unknown 05:31 WBC RBC Hgb Hct RDW Plt Count Seg Neuts % (Manual) Lymphocytes % (Manual) Basophils % (Manual) Seg Neutrophils # Man Lymphocytes # (Manual) Monocytes # (Manual) Eosinophils # (Manual) Basophils # (Manual) D-Dimer ABG pH 7.349 L POC ABG pCO2 POC ABG pO2 ABG pO2 117.3 H ABG HCO3 ABG Base Excess ABG Hemoglobin 7.4 L ABG Oxyhemoglobin ABG Sodium ABG Chloride ABG Glucose Oxyhemoglobin Sodium Potassium Chloride Carbon Dioxide BUN Creatinine Glucose POC Glucose 178 H 248 H Calcium Magnesium Ferritin Alkaline Phosphatase Lactate Dehydrogenase Total Creatine Kinase Troponin T C-Reactive Protein Albumin Triglycerides Cholesterol HDL Cholesterol Arterial Blood Glucose Arterial Blood Ionized Calcium Urine WBC (Auto) Salicylates Acetaminophen Hepatitis C Antibody 04/09/20 04/09/20 04/09/20 11:39 17:35 Unknown WBC RBC Hgb Hct RDW Plt Count Seg Neuts % (Manual) Lymphocytes % (Manual) Basophils % (Manual) Seg Neutrophils # Man Lymphocytes # (Manual) Monocytes # (Manual) Eosinophils # (Manual) Basophils # (Manual) D-Dimer ABG pH POC ABG pCO2 51.6 H POC ABG pO2 ABG pO2 ABG HCO3 ABG Base Excess ABG Hemoglobin 11.4 L ABG Oxyhemoglobin ABG Sodium 130.1 L ABG Chloride ABG Glucose 249 H Oxyhemoglobin Sodium Potassium Chloride Carbon Dioxide BUN Creatinine Glucose POC Glucose 319 H 254 H Calcium Magnesium Ferritin Alkaline Phosphatase Lactate Dehydrogenase Total Creatine Kinase Troponin T C-Reactive Protein Albumin Triglycerides Cholesterol HDL Cholesterol Arterial Blood Glucose 249 H Arterial Blood Ionized Calcium 4.1 L Urine WBC (Auto) Salicylates Acetaminophen Hepatitis C Antibody 04/10/20 04/10/20 04/10/20 00:00 03:15 05:49 WBC RBC Hgb Hct RDW Plt Count Seg Neuts % (Manual) Lymphocytes % (Manual) Basophils % (Manual) Seg Neutrophils # Man Lymphocytes # (Manual) Monocytes # (Manual) Eosinophils # (Manual) Basophils # (Manual) D-Dimer ABG pH POC ABG pCO2 48.2 H POC ABG pO2 ABG pO2 ABG HCO3 ABG Base Excess ABG Hemoglobin 9.9 L ABG Oxyhemoglobin ABG Sodium 135.4 L ABG Chloride ABG Glucose 215 H Oxyhemoglobin Sodium Potassium Chloride Carbon Dioxide BUN Creatinine Glucose POC Glucose 194 H 221 H Calcium Magnesium Ferritin Alkaline Phosphatase Lactate Dehydrogenase Total Creatine Kinase Troponin T C-Reactive Protein Albumin Triglycerides Cholesterol HDL Cholesterol Arterial Blood Glucose 215 H Arterial Blood Ionized Calcium 4.5 L Urine WBC (Auto) Salicylates Acetaminophen Hepatitis C Antibody 04/10/20 04/10/20 04/10/20 08:18 08:18 12:22 WBC 28.9 H RBC 3.38 L Hgb 9.5 L Hct 30.1 L RDW 16.9 H Plt Count Seg Neuts % (Manual) 87.0 H Lymphocytes % (Manual) 9.0 L Basophils % (Manual) 2.0 H Seg Neutrophils # Man 25.1 H Lymphocytes # (Manual) Monocytes # (Manual) Eosinophils # (Manual) Basophils # (Manual) 0.6 H D-Dimer ABG pH POC ABG pCO2 POC ABG pO2 ABG pO2 ABG HCO3 ABG Base Excess ABG Hemoglobin ABG Oxyhemoglobin ABG Sodium ABG Chloride ABG Glucose Oxyhemoglobin Sodium 134 L Potassium 3.5 L D Chloride 94.9 L Carbon Dioxide BUN 38 H Creatinine 5.5 H Glucose 230 H POC Glucose 218 H Calcium Magnesium Ferritin Alkaline Phosphatase Lactate Dehydrogenase Total Creatine Kinase Troponin T C-Reactive Protein Albumin Triglycerides Cholesterol HDL Cholesterol Arterial Blood Glucose Arterial Blood Ionized Calcium Urine WBC (Auto) Salicylates Acetaminophen Hepatitis C Antibody 04/10/20 04/10/20 04/10/20 17:27 18:08 23:29 WBC RBC Hgb Hct RDW Plt Count Seg Neuts % (Manual) Lymphocytes % (Manual) Basophils % (Manual) Seg Neutrophils # Man Lymphocytes # (Manual) Monocytes # (Manual) Eosinophils # (Manual) Basophils # (Manual) D-Dimer ABG pH POC ABG pCO2 POC ABG pO2 ABG pO2 ABG HCO3 ABG Base Excess ABG Hemoglobin ABG Oxyhemoglobin ABG Sodium ABG Chloride ABG Glucose Oxyhemoglobin Sodium Potassium Chloride Carbon Dioxide BUN Creatinine Glucose POC Glucose 218 H 223 H 166 H Calcium Magnesium Ferritin Alkaline Phosphatase Lactate Dehydrogenase Total Creatine Kinase Troponin T C-Reactive Protein Albumin Triglycerides Cholesterol HDL Cholesterol Arterial Blood Glucose Arterial Blood Ionized Calcium Urine WBC (Auto) Salicylates Acetaminophen Hepatitis C Antibody 04/11/20 04/11/20 04/11/20 03:44 05:28 07:39 WBC 26.9 H RBC 3.32 L Hgb 9.4 L Hct 29.5 L RDW 17.2 H Plt Count Seg Neuts % (Manual) 83.0 H Lymphocytes % (Manual) 10.0 L Basophils % (Manual) Seg Neutrophils # Man 22.3 H Lymphocytes # (Manual) Monocytes # (Manual) 1.1 H Eosinophils # (Manual) 0.5 H Basophils # (Manual) D-Dimer ABG pH 7.313 L POC ABG pCO2 POC ABG pO2 ABG pO2 73.4 L ABG HCO3 26.7 H ABG Base Excess ABG Hemoglobin 11.0 L ABG Oxyhemoglobin ABG Sodium ABG Chloride ABG Glucose Oxyhemoglobin 92.8 L Sodium Potassium Chloride Carbon Dioxide BUN Creatinine Glucose POC Glucose 164 H Calcium Magnesium Ferritin Alkaline Phosphatase Lactate Dehydrogenase Total Creatine Kinase Troponin T C-Reactive Protein Albumin Triglycerides Cholesterol HDL Cholesterol Arterial Blood Glucose Arterial Blood Ionized Calcium Urine WBC (Auto) Salicylates Acetaminophen Hepatitis C Antibody 04/11/20 04/11/20 04/11/20 07:39 12:25 19:02 WBC RBC Hgb Hct RDW Plt Count Seg Neuts % (Manual) Lymphocytes % (Manual) Basophils % (Manual) Seg Neutrophils # Man Lymphocytes # (Manual) Monocytes # (Manual) Eosinophils # (Manual) Basophils # (Manual) D-Dimer ABG pH POC ABG pCO2 POC ABG pO2 ABG pO2 ABG HCO3 ABG Base Excess ABG Hemoglobin ABG Oxyhemoglobin ABG Sodium ABG Chloride ABG Glucose Oxyhemoglobin Sodium Potassium Chloride Carbon Dioxide BUN 48 H Creatinine 6.1 H Glucose 122 H POC Glucose 175 H 175 H Calcium 8.3 L Magnesium Ferritin Alkaline Phosphatase Lactate Dehydrogenase Total Creatine Kinase Troponin T C-Reactive Protein Albumin Triglycerides Cholesterol HDL Cholesterol Arterial Blood Glucose Arterial Blood Ionized Calcium Urine WBC (Auto) Salicylates Acetaminophen Hepatitis C Antibody 04/12/20 04/12/20 04/12/20 00:02 05:51 08:14 WBC 28.0 H RBC 3.29 L Hgb 9.5 L Hct 29.1 L RDW 16.9 H Plt Count Seg Neuts % (Manual) 88.0 H Lymphocytes % (Manual) 7.0 L Basophils % (Manual) Seg Neutrophils # Man 24.6 H Lymphocytes # (Manual) Monocytes # (Manual) Eosinophils # (Manual) 0.6 H Basophils # (Manual) D-Dimer ABG pH POC ABG pCO2 POC ABG pO2 ABG pO2 ABG HCO3 ABG Base Excess ABG Hemoglobin ABG Oxyhemoglobin ABG Sodium ABG Chloride ABG Glucose Oxyhemoglobin Sodium Potassium Chloride Carbon Dioxide BUN Creatinine Glucose POC Glucose 146 H 151 H Calcium Magnesium Ferritin Alkaline Phosphatase Lactate Dehydrogenase Total Creatine Kinase Troponin T C-Reactive Protein Albumin Triglycerides Cholesterol HDL Cholesterol Arterial Blood Glucose Arterial Blood Ionized Calcium Urine WBC (Auto) Salicylates Acetaminophen Hepatitis C Antibody 04/12/20 04/12/20 04/12/20 08:14 12:21 17:26 WBC RBC Hgb Hct RDW Plt Count Seg Neuts % (Manual) Lymphocytes % (Manual) Basophils % (Manual) Seg Neutrophils # Man Lymphocytes # (Manual) Monocytes # (Manual) Eosinophils # (Manual) Basophils # (Manual) D-Dimer ABG pH POC ABG pCO2 POC ABG pO2 ABG pO2 ABG HCO3 ABG Base Excess ABG Hemoglobin ABG Oxyhemoglobin ABG Sodium ABG Chloride ABG Glucose Oxyhemoglobin Sodium Potassium 3.3 L Chloride Carbon Dioxide BUN 32 H Creatinine 4.3 H Glucose 188 H POC Glucose 196 H 235 H Calcium Magnesium Ferritin Alkaline Phosphatase Lactate Dehydrogenase Total Creatine Kinase Troponin T C-Reactive Protein Albumin Triglycerides Cholesterol HDL Cholesterol Arterial Blood Glucose Arterial Blood Ionized Calcium Urine WBC (Auto) Salicylates Acetaminophen Hepatitis C Antibody 04/12/20 04/13/20 04/13/20 23:34 03:40 05:33 WBC RBC Hgb Hct RDW Plt Count Seg Neuts % (Manual) Lymphocytes % (Manual) Basophils % (Manual) Seg Neutrophils # Man Lymphocytes # (Manual) Monocytes # (Manual) Eosinophils # (Manual) Basophils # (Manual) D-Dimer ABG pH POC ABG pCO2 POC ABG pO2 ABG pO2 ABG HCO3 ABG Base Excess ABG Hemoglobin 9.4 L ABG Oxyhemoglobin ABG Sodium 133.6 L ABG Chloride ABG Glucose 172 H Oxyhemoglobin Sodium Potassium Chloride Carbon Dioxide BUN Creatinine Glucose POC Glucose 171 H 167 H Calcium Magnesium Ferritin Alkaline Phosphatase Lactate Dehydrogenase Total Creatine Kinase Troponin T C-Reactive Protein Albumin Triglycerides Cholesterol HDL Cholesterol Arterial Blood Glucose 172 H Arterial Blood Ionized Calcium Urine WBC (Auto) Salicylates Acetaminophen Hepatitis C Antibody 04/13/20 04/13/20 04/13/20 07:49 09:09 11:34 WBC RBC Hgb Hct RDW Plt Count Seg Neuts % (Manual) Lymphocytes % (Manual) Basophils % (Manual) Seg Neutrophils # Man Lymphocytes # (Manual) Monocytes # (Manual) Eosinophils # (Manual) Basophils # (Manual) D-Dimer ABG pH POC ABG pCO2 POC ABG pO2 ABG pO2 ABG HCO3 ABG Base Excess ABG Hemoglobin ABG Oxyhemoglobin ABG Sodium ABG Chloride ABG Glucose Oxyhemoglobin Sodium Potassium Chloride Carbon Dioxide 31 H BUN 44 H 43 H Creatinine 5.0 H 4.9 H Glucose 164 H 164 H POC Glucose 155 H Calcium Magnesium Ferritin Alkaline Phosphatase Lactate Dehydrogenase Total Creatine Kinase Troponin T C-Reactive Protein Albumin Triglycerides Cholesterol HDL Cholesterol Arterial Blood Glucose Arterial Blood Ionized Calcium Urine WBC (Auto) Salicylates Acetaminophen Hepatitis C Antibody 04/13/20 04/13/20 04/14/20 17:38 23:40 04:35 WBC RBC Hgb Hct RDW Plt Count Seg Neuts % (Manual) Lymphocytes % (Manual) Basophils % (Manual) Seg Neutrophils # Man Lymphocytes # (Manual) Monocytes # (Manual) Eosinophils # (Manual) Basophils # (Manual) D-Dimer ABG pH POC ABG pCO2 POC ABG pO2 ABG pO2 ABG HCO3 ABG Base Excess ABG Hemoglobin ABG Oxyhemoglobin ABG Sodium ABG Chloride ABG Glucose Oxyhemoglobin Sodium Potassium Chloride Carbon Dioxide BUN Creatinine Glucose POC Glucose 180 H 130 H 121 H Calcium Magnesium Ferritin Alkaline Phosphatase Lactate Dehydrogenase Total Creatine Kinase Troponin T C-Reactive Protein Albumin Triglycerides Cholesterol HDL Cholesterol Arterial Blood Glucose Arterial Blood Ionized Calcium Urine WBC (Auto) Salicylates Acetaminophen Hepatitis C Antibody 04/14/20 04/14/20 04/15/20 12:17 17:06 00:11 WBC RBC Hgb Hct RDW Plt Count Seg Neuts % (Manual) Lymphocytes % (Manual) Basophils % (Manual) Seg Neutrophils # Man Lymphocytes # (Manual) Monocytes # (Manual) Eosinophils # (Manual) Basophils # (Manual) D-Dimer ABG pH POC ABG pCO2 POC ABG pO2 ABG pO2 ABG HCO3 ABG Base Excess ABG Hemoglobin ABG Oxyhemoglobin ABG Sodium ABG Chloride ABG Glucose Oxyhemoglobin Sodium Potassium Chloride Carbon Dioxide BUN Creatinine Glucose POC Glucose 170 H 177 H 156 H Calcium Magnesium Ferritin Alkaline Phosphatase Lactate Dehydrogenase Total Creatine Kinase Troponin T C-Reactive Protein Albumin Triglycerides Cholesterol HDL Cholesterol Arterial Blood Glucose Arterial Blood Ionized Calcium Urine WBC (Auto) Salicylates Acetaminophen Hepatitis C Antibody 04/15/20 04/15/20 04/15/20 05:09 11:45 17:12 WBC RBC Hgb Hct RDW Plt Count Seg Neuts % (Manual) Lymphocytes % (Manual) Basophils % (Manual) Seg Neutrophils # Man Lymphocytes # (Manual) Monocytes # (Manual) Eosinophils # (Manual) Basophils # (Manual) D-Dimer ABG pH POC ABG pCO2 POC ABG pO2 ABG pO2 ABG HCO3 ABG Base Excess ABG Hemoglobin ABG Oxyhemoglobin ABG Sodium ABG Chloride ABG Glucose Oxyhemoglobin Sodium Potassium Chloride Carbon Dioxide BUN Creatinine Glucose POC Glucose 141 H 154 H 177 H Calcium Magnesium Ferritin Alkaline Phosphatase Lactate Dehydrogenase Total Creatine Kinase Troponin T C-Reactive Protein Albumin Triglycerides Cholesterol HDL Cholesterol Arterial Blood Glucose Arterial Blood Ionized Calcium Urine WBC (Auto) Salicylates Acetaminophen Hepatitis C Antibody 04/16/20 04/16/20 04/16/20 05:11 12:13 17:31 WBC RBC Hgb Hct RDW Plt Count Seg Neuts % (Manual) Lymphocytes % (Manual) Basophils % (Manual) Seg Neutrophils # Man Lymphocytes # (Manual) Monocytes # (Manual) Eosinophils # (Manual) Basophils # (Manual) D-Dimer ABG pH POC ABG pCO2 POC ABG pO2 ABG pO2 ABG HCO3 ABG Base Excess ABG Hemoglobin ABG Oxyhemoglobin ABG Sodium ABG Chloride ABG Glucose Oxyhemoglobin Sodium Potassium Chloride Carbon Dioxide BUN Creatinine Glucose POC Glucose 115 H 122 H 188 H Calcium Magnesium Ferritin Alkaline Phosphatase Lactate Dehydrogenase Total Creatine Kinase Troponin T C-Reactive Protein Albumin Triglycerides Cholesterol HDL Cholesterol Arterial Blood Glucose Arterial Blood Ionized Calcium Urine WBC (Auto) Salicylates Acetaminophen Hepatitis C Antibody 04/16/20 04/17/20 04/17/20 23:47 05:44 05:44 WBC 19.5 H RBC 3.26 L Hgb 9.3 L Hct 28.7 L RDW 15.9 H Plt Count 604 H Seg Neuts % (Manual) 81.0 H Lymphocytes % (Manual) 11.0 L Basophils % (Manual) Seg Neutrophils # Man 15.8 H Lymphocytes # (Manual) Monocytes # (Manual) Eosinophils # (Manual) 0.6 H Basophils # (Manual) 0.2 H D-Dimer ABG pH POC ABG pCO2 POC ABG pO2 ABG pO2 ABG HCO3 ABG Base Excess ABG Hemoglobin ABG Oxyhemoglobin ABG Sodium ABG Chloride ABG Glucose Oxyhemoglobin Sodium Potassium Chloride Carbon Dioxide BUN 28 H Creatinine 3.3 H Glucose 130 H POC Glucose 156 H Calcium Magnesium Ferritin Alkaline Phosphatase Lactate Dehydrogenase Total Creatine Kinase Troponin T C-Reactive Protein Albumin Triglycerides Cholesterol HDL Cholesterol Arterial Blood Glucose Arterial Blood Ionized Calcium Urine WBC (Auto) Salicylates Acetaminophen Hepatitis C Antibody 04/17/20 04/17/20 04/17/20 12:57 17:18 22:04 WBC RBC Hgb Hct RDW Plt Count Seg Neuts % (Manual) Lymphocytes % (Manual) Basophils % (Manual) Seg Neutrophils # Man Lymphocytes # (Manual) Monocytes # (Manual) Eosinophils # (Manual) Basophils # (Manual) D-Dimer ABG pH 7.553 H POC ABG pCO2 POC ABG pO2 206.5 H ABG pO2 ABG HCO3 ABG Base Excess ABG Hemoglobin 11.2 L ABG Oxyhemoglobin 99.1 H ABG Sodium 133.0 L ABG Chloride ABG Glucose 183 H Oxyhemoglobin Sodium Potassium Chloride Carbon Dioxide BUN Creatinine Glucose POC Glucose 146 H 156 H Calcium Magnesium Ferritin Alkaline Phosphatase Lactate Dehydrogenase Total Creatine Kinase Troponin T C-Reactive Protein Albumin Triglycerides Cholesterol HDL Cholesterol Arterial Blood Glucose 183 H Arterial Blood Ionized Calcium 4.4 L Urine WBC (Auto) Salicylates Acetaminophen Hepatitis C Antibody 04/17/20 04/18/20 04/18/20 23:29 03:23 04:43 WBC RBC Hgb Hct RDW Plt Count Seg Neuts % (Manual) Lymphocytes % (Manual) Basophils % (Manual) Seg Neutrophils # Man Lymphocytes # (Manual) Monocytes # (Manual) Eosinophils # (Manual) Basophils # (Manual) D-Dimer ABG pH 7.486 H POC ABG pCO2 POC ABG pO2 56.4 L ABG pO2 ABG HCO3 ABG Base Excess ABG Hemoglobin 11.2 L ABG Oxyhemoglobin 92.0 L ABG Sodium 135.1 L ABG Chloride ABG Glucose 138 H Oxyhemoglobin Sodium Potassium Chloride Carbon Dioxide BUN Creatinine Glucose POC Glucose 125 H 119 H Calcium Magnesium Ferritin Alkaline Phosphatase Lactate Dehydrogenase Total Creatine Kinase Troponin T C-Reactive Protein Albumin Triglycerides Cholesterol HDL Cholesterol Arterial Blood Glucose 138 H Arterial Blood Ionized Calcium 4.5 L Urine WBC (Auto) Salicylates Acetaminophen Hepatitis C Antibody 04/18/20 04/18/20 04/18/20 06:48 06:48 06:48 WBC 38.7 H RBC Hgb Hct RDW 16.3 H Plt Count 597 H Seg Neuts % (Manual) Lymphocytes % (Manual) Basophils % (Manual) Seg Neutrophils # Man Lymphocytes # (Manual) Monocytes # (Manual) Eosinophils # (Manual) Basophils # (Manual) D-Dimer 1144.77 H ABG pH POC ABG pCO2 POC ABG pO2 ABG pO2 ABG HCO3 ABG Base Excess ABG Hemoglobin ABG Oxyhemoglobin ABG Sodium ABG Chloride ABG Glucose Oxyhemoglobin Sodium 134 L Potassium Chloride 96.4 L Carbon Dioxide BUN 19 H Creatinine 2.6 H Glucose 104 H POC Glucose Calcium Magnesium Ferritin Alkaline Phosphatase 413 H Lactate Dehydrogenase Total Creatine Kinase Troponin T C-Reactive Protein Albumin 2.8 L Triglycerides Cholesterol HDL Cholesterol Arterial Blood Glucose Arterial Blood Ionized Calcium Urine WBC (Auto) Salicylates Acetaminophen Hepatitis C Antibody 04/18/20 04/18/20 04/19/20 11:33 17:18 06:24 WBC 28.9 H RBC 3.33 L Hgb 9.5 L Hct 29.5 L RDW 16.0 H Plt Count 577 H Seg Neuts % (Manual) Lymphocytes % (Manual) Basophils % (Manual) Seg Neutrophils # Man Lymphocytes # (Manual) Monocytes # (Manual) Eosinophils # (Manual) Basophils # (Manual) D-Dimer ABG pH POC ABG pCO2 POC ABG pO2 ABG pO2 ABG HCO3 ABG Base Excess ABG Hemoglobin ABG Oxyhemoglobin ABG Sodium ABG Chloride ABG Glucose Oxyhemoglobin Sodium Potassium Chloride Carbon Dioxide BUN Creatinine Glucose POC Glucose 195 H 162 H Calcium Magnesium Ferritin Alkaline Phosphatase Lactate Dehydrogenase Total Creatine Kinase Troponin T C-Reactive Protein Albumin Triglycerides Cholesterol HDL Cholesterol Arterial Blood Glucose Arterial Blood Ionized Calcium Urine WBC (Auto) Salicylates Acetaminophen Hepatitis C Antibody 04/19/20 04/19/20 04/20/20 06:24 17:28 07:50 WBC 22.7 H RBC 3.43 L Hgb 9.6 L Hct RDW 15.9 H Plt Count 530 H Seg Neuts % (Manual) Lymphocytes % (Manual) Basophils % (Manual) Seg Neutrophils # Man Lymphocytes # (Manual) Monocytes # (Manual) Eosinophils # (Manual) Basophils # (Manual) D-Dimer ABG pH POC ABG pCO2 POC ABG pO2 ABG pO2 ABG HCO3 ABG Base Excess ABG Hemoglobin ABG Oxyhemoglobin ABG Sodium ABG Chloride ABG Glucose Oxyhemoglobin Sodium Potassium Chloride Carbon Dioxide 31 H D BUN 27 H Creatinine 3.8 H Glucose POC Glucose 114 H Calcium Magnesium Ferritin Alkaline Phosphatase 343 H Lactate Dehydrogenase Total Creatine Kinase Troponin T C-Reactive Protein Albumin 2.8 L Triglycerides Cholesterol HDL Cholesterol Arterial Blood Glucose Arterial Blood Ionized Calcium Urine WBC (Auto) Salicylates Acetaminophen Hepatitis C Antibody 04/20/20 07:50 WBC RBC Hgb Hct RDW Plt Count Seg Neuts % (Manual) Lymphocytes % (Manual) Basophils % (Manual) Seg Neutrophils # Man Lymphocytes # (Manual) Monocytes # (Manual) Eosinophils # (Manual) Basophils # (Manual) D-Dimer ABG pH POC ABG pCO2 POC ABG pO2 ABG pO2 ABG HCO3 ABG Base Excess ABG Hemoglobin ABG Oxyhemoglobin ABG Sodium ABG Chloride ABG Glucose Oxyhemoglobin Sodium Potassium Chloride Carbon Dioxide 31 H BUN Creatinine 2.8 H Glucose POC Glucose Calcium Magnesium Ferritin Alkaline Phosphatase Lactate Dehydrogenase Total Creatine Kinase Troponin T C-Reactive Protein Albumin Triglycerides Cholesterol HDL Cholesterol Arterial Blood Glucose Arterial Blood Ionized Calcium Urine WBC (Auto) Salicylates Acetaminophen Hepatitis C Antibody Chest x-ray: pending Allied health notes reviewed: nursing
[2020-04-20] MEDS ORDERED: KETOROLAC 30 MG/1 ML INJ IV ONE (12:00)
--- NOTE | 2020-04-20 12:29 | Progress Note ---
Assessment and Plan Assessment and plan: 49 years old female with history of asthma, hypertension, end-stage renal disease on hemodialysis, diabetes mellitus, bipolar disorder, morbid obesity, CVA, resident of a care home, admitted on 04/06/2020 secondary to be found Unresponsiveness after hemodialysis. Patient is unable to provide history, currently intubated. Patient received hemodialysis and after completion she became unresponsive. Upon EMS arrival, blood pressure was 90/60, HR 88, temperature 97.2. Per records, patient was not complaining of any symptoms. On arrival, temperature 94.1, HR 66, RR 18, O2 sat 87%, BP 131/111. Initial WBC 19.2. Urinalysis showed more than 182 WBCs and moderate leukocyte esterase. Chest x-ray shows bibasilar infiltrates. Patient was intubated in the emergency room to protect airway. Bains catheter was placed yielding purulent urine. Severe sepsis. Present on admission with hypothermia, leukocytosis, altered mental status, likely due to bilateral pneumonia. F/U Blood Cx. Cont. Abx pre ID Bilateral pneumonia. Aspiration pneumonia/HAP illness induced Gastroparesis: Stable Severe UTI. Bains catheter with purulent urine. Acute hypoxemic and hypercapnic respiratory failure. Intubated for airway protection, O2 sats down to 87%. Acute toxic metabolic encephalopathy. Etiology secondary to sepsis Bibasilar atelectasis, End-stage renal disease on hemodialysis Anemia of chronic renal disease vancomycin allergy ? Causing hives. PER ID documentation at other hosptial does not show vanc allergy Chronic leukocytosis, appears so based on review of records from here and [facility] in the past were reviewed. Chronic Hepatitis C: treatment status unknown. F/U HCV RNA PCR. Extensive Candidal intertrigo in groin and vagina. Cont. Fluconazole Intractable nausea with vomiting. 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 Patient remains intubated on mechanical ventilation with AC mode ventilation rate 12, tidal volume 450, FiO2 40% and a PEEP of 6. Continue weaning per protocols. Patient with ESRD and continue TTS schedule per nephrology. Patient does have a history of COVID-19 infection(01/07/20) but negative testing April 07. Follow-up blood/urine/sputum culture. Continue antibiotics per ID recommendations. 04/09/2020. Patient not tolerating PSV 12/6 with FiO2 of 30%. Continue hemod ialysis per nephrology recommendations. Continue IV antibiotics per ID recommendations. Blood cultures no growth to date. Respiratory therapy reports patient with accelerated hypertension and apneic episodes on PSV ventilation. Await pulmonary recommendations. 04/10/2020. Patient remains on mechanical ventilation AC mode rate 12, tidal volume 450, FiO2 30% and a PEEP of 6. Continue PSV trials per protocols. Continue hemodialysis per nephrology recommendations. Continue anti-infectives of fluconazole and cefepime. Follow-up blood/urine/sputum culture. ID, pulmonary and nephrology following. 04/11/2020; patient remains on mechanical ventilation AC mode rate 12, tidal volume 450, FiO2 of 30 and PEEP of 6. Continue PSV trials per protocols. continue hemodialysis per nephrology. ID changed antibiotics to meropenem. Blood culture grew staph epidermidis likey contaminant. 04/12/2020; patient is intubated, patient open eyes spontaneously. Neurology consulted and continue on replacement treatment. EEG is pending. Recommend MRI. Patient is on meropenem per ID recommendation. Pulmonary is following. Patient is on spontaneous breathing trial 04/13/2020; patient is intubated. Patient's blood pressure was high yesterday, amlodipine and hydralazine was added. Overnight his blood pressure was low and will also BP medications. We will continue to follow. 04/14/2020; patient is intubated and blood pressure is on the low side of normal. Patient is on meropenem 5/5. 04/15/2020; patient is intubated, on spontaneous breathing trial. Pulmonary is following. neurology recommend MRI. 04/16/2020; patient is intubated, on spontaneous breathing trial. Pulmonary is following. Neurology recommend MRI once stable. 04/17: Patient showing some clinical improvement. MRI still pending. Continues on restraints weaning trial today. Antibiotics per ID continue aspiration precautions although management by critical care physician. Noted elevated D- dimer level with trend. See ultrasound of the lower extremity was negative for DVT. Prior hospitalization showed elevated D-dimer also. Will discuss with nephrology if patient needs CTA to see if this can be managed with dialysis. This will be done if patient is unable to wean from the vent due to hypoxia. 04/18: Patient required re-intubation last night due to self extubation and decompensation with hypoxia. CXR post extubation showed tube in expected position. Patient also noted to have large projectile vomiting. - Obtain KUB - start Zofran - Hold tube feeds - May benefit from GI eval if vomiting continues. - She is currently being treated for Aspiration Pneumonia with bactermia and Acute cystitis 04/19: Now extubated, Continue supportive care and aspiration precautions. Patient complaining of chronic pain, will resume home dose pain meds and avoid oversedation. No new seizure noted. still awaiting MRI brain. GI input noted: illness induced gastropoaresis, otherwise KUB and LFT normal, will start low fat fiber diet once patient able to tolerate PO. Continue to monitor WBC, increased again today. 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 Unless indicated by Intesivist will like to monitor patient in the ICU for additional 24 hrs before downgrading. 04/20: CONTINUE Aspiration precautions, started on D5NS for low Blood glucose. Speech re-eval today. PAIN CONTROL The high probability of a clinically significant, sudden or life threatening deterioration of the [respiratory] system(s) required my full and direct attention, intervention and personal management. The aggregate critical care time was [35] minutes. This time is in addition to time spent performing reported procedures but includes the following: [x] Data Review and interpretation [x] Patient assessment and monitoring of vital signs [x] Documentation [x] Medication orders and management History Interval history: Patient seen and examined, stable following extubation but failed swallow eval. Hospitalist Physical - Physical exam Narrative exam: VITAL SIGNS: Reviewed. GENERAL: The patient appears normally developed, lethargic with Nasal cannula, vital signs as documented. HEAD: No signs of head trauma. EYES: Pupils are equal. Extraocular motions intact. EARS: Hearing grossly intact. MOUTH: Oropharynx is normal. face mask on. NECK: No adenopathy, no JVD. CHEST: Chest with transmitted breath sounds bilaterally. No wheezes, rales, or rhonchi. CARDIAC: Regular rate and rhythm. S1 and S2, without murmurs, gallops, or rubs. VASCULAR: No Edema. Peripheral pulses normal and equal in all extremities. ABDOMEN: Soft, non tender and non distended. No rebound or guarding, and no masses palpated. Bowel Sounds normal. MUSCULOSKELETAL: Bilateral BKA NEUROLOGIC EXAM: Awake, lethargic ORIENTED to person place and time. Follows some commands. PSYCHIATRIC: Mood normal. SKIN: detail exam as documented in skin assessment - Constitutional Vitals: Temp Pulse Resp BP Pulse Ox 98.9 F 87 23 160/52 96 04/20/20 08:00 04/20/20 11:00 04/19/20 21:31 04/20/20 11:00 04/20/20 11:00 General appearance: Present: severe distress, other (Intubated on mechanical ventilation) HEART Score - HEART Score Troponin: Troponin T 0.224 ng/mL (0.00-0.029) H* 04/06/20 14:30 Results - Labs CBC & Chem 7: 04/20/20 07:50 04/20/20 07:50 Labs: Laboratory Last Values WBC 22.7 K/mm3 (4.5-11.0) H 04/20/20 07:50 RBC 3.43 M/mm3 (3.65-5.03) L 04/20/20 07:50 Hgb 9.6 gm/dl (10.1-14.3) L 04/20/20 07:50 Hct 30.6 % (30.3-42.9) 04/20/20 07:50 MCV 89 fl (79-97) 04/20/20 07:50 MCH 28 pg (28-32) 04/20/20 07:50 MCHC 31 % (30-34) 04/20/20 07:50 RDW 15.9 % (13.2-15.2) H 04/20/20 07:50 Plt Count 530 K/mm3 (140-440) H 04/20/20 07:50 Add Manual Diff Complete 04/17/20 05:44 Total Counted 100 04/17/20 05:44 Seg Neuts % (Manual) 81.0 % (40.0-70.0) H 04/17/20 05:44 Band Neutrophils % 0 % 04/17/20 05:44 Lymphocytes % (Manual) 11.0 % (13.4-35.0) L 04/17/20 05:44 Reactive Lymphs % (Man) 0 % 04/17/20 05:44 Monocytes % (Manual) 3.0 % (0.0-7.3) 04/17/20 05:44 Eosinophils % (Manual) 3.0 % (0.0-4.3) 04/17/20 05:44 Basophils % (Manual) 1.0 % (0.0-1.8) 04/17/20 05:44 Metamyelocytes % 0 % 04/17/20 05:44 Myelocytes % 1.0 % 04/17/20 05:44 Promyelocytes % 0 % 04/17/20 05:44 Blast Cells % 0 % 04/17/20 05:44 Nucleated RBC % Not Reportable 04/17/20 05:44 Seg Neutrophils # Man 15.8 K/mm3 (1.8-7.7) H 04/17/20 05:44 Band Neutrophils # 0.0 K/mm3 04/17/20 05:44 Lymphocytes # (Manual) 2.1 K/mm3 (1.2-5.4) 04/17/20 05:44 Abs React Lymphs (Man) 0.0 K/mm3 04/17/20 05:44 Monocytes # (Manual) 0.6 K/mm3 (0.0-0.8) 04/17/20 05:44 Eosinophils # (Manual) 0.6 K/mm3 (0.0-0.4) H 04/17/20 05:44 Basophils # (Manual) 0.2 K/mm3 (0.0-0.1) H 04/17/20 05:44 Metamyelocytes # 0.0 K/mm3 04/17/20 05:44 Myelocytes # 0.2 K/mm3 04/17/20 05:44 Promyelocytes # 0.0 K/mm3 04/17/20 05:44 Blast Cells # 0.0 K/mm3 04/17/20 05:44 WBC Morphology Not Reportable 04/17/20 05:44 Hypersegmented Neuts Not Reportable 04/17/20 05:44 Hyposegmented Neuts Not Reportable 04/17/20 05:44 Hypogranular Neuts Not Reportable 04/17/20 05:44 Smudge Cells Not Reportable 04/17/20 05:44 Toxic Granulation Not Reportable 04/17/20 05:44 Toxic Vacuolation Not Reportable 04/17/20 05:44 Dohle Bodies Not Reportable 04/17/20 05:44 Pelger-Huet Anomaly Not Reportable 04/17/20 05:44 Stephanie Rods Not Reportable 04/17/20 05:44 Platelet Estimate Consistent w auto 04/17/20 05:44 Clumped Platelets Not Reportable 04/17/20 05:44 Plt Clumps, EDTA Not Reportable 04/17/20 05:44 Large Platelets Not Reportable 04/17/20 05:44 Giant Platelets Not Reportable 04/17/20 05:44 Platelet Satelliting Not Reportable 04/17/20 05:44 Plt Morphology Comment Not Reportable 04/17/20 05:44 RBC Morphology Normal 04/17/20 05:44 Dimorphic RBCs Not Reportable 04/17/20 05:44 Polychromasia Not Reportable 04/17/20 05:44 Hypochromasia Not Reportable 04/17/20 05:44 Poikilocytosis Not Reportable 04/17/20 05:44 Anisocytosis Not Reportable 04/17/20 05:44 Microcytosis Not Reportable 04/17/20 05:44 Macrocytosis Not Reportable 04/17/20 05:44 Spherocytes Few 04/17/20 05:44 Pappenheimer Bodies Not Reportable 04/17/20 05:44 Sickle Cells Not Reportable 04/17/20 05:44 Target Cells Not Reportable 04/17/20 05:44 Tear Drop Cells Not Reportable 04/17/20 05:44 Ovalocytes Not Reportable 04/17/20 05:44 Stomatocytes Few 04/12/20 08:14 Helmet Cells Not Reportable 04/17/20 05:44 [place] Bodies Not Reportable 04/17/20 05:44 Alicia Rings Not Reportable 04/17/20 05:44 [place] Cells Not Reportable 04/17/20 05:44 Bite Cells Not Reportable 04/17/20 05:44 Crenated Cell Not Reportable 04/17/20 05:44 Elliptocytes Not Reportable 04/17/20 05:44 Acanthocytes (Spur) Not Reportable 04/17/20 05:44 Rouleaux Not Reportable 04/17/20 05:44 Hemoglobin C Crystals Not Reportable 04/17/20 05:44 Schistocytes Not Reportable 04/17/20 05:44 Malaria parasites Not Reportable 04/17/20 05:44 Lc Bodies Not Reportable 04/17/20 05:44 Hem Pathologist Commnt No 04/17/20 05:44 PT 13.8 Sec. (12.2-14.9) 04/06/20 14:30 INR 1.04 (0.87-1.13) 04/06/20 14:30 APTT 28.1 Sec. (24.2-36.6) 04/06/20 14:30 D-Dimer 1144.77 ng/mlDDU (0-234) H 04/18/20 06:48 ABG pH 7.486 (7.320-7.450) H 04/18/20 03:23 POC ABG pCO2 40.7 mmHg (32.0-48.0) 04/18/20 03:23 ABG pCO2 54.0 mm Hg 04/11/20 03:44 POC ABG pO2 56.4 mmHg (83-108) L 04/18/20 03:23 ABG pO2 73.4 mm Hg (80.0-90.0) L 04/11/20 03:44 POC ABG HCO3 30.0 04/18/20 03:23 ABG HCO3 26.7 mmol/L (20.0-26.0) H 04/11/20 03:44 ABG O2 Saturation 95.0 % (95.0-99.0) 04/11/20 03:44 ABG O2 Content 14.4 (0.0-44) 04/11/20 03:44 POC ABG Base Excess 6.1 04/18/20 03:23 ABG Base Excess -0.1 mmol/L (-2.0-3.0) 04/11/20 03:44 ABG Hemoglobin 11.2 (12.0-17.5) L 04/18/20 03:23 ABG Oxyhemoglobin 92.0 (94-98) L 04/18/20 03:23 ABG Carboxyhemoglobin 1.6 % (0.0-5.0) 04/11/20 03:44 ABG Methemoglobin 0.3 (0.0-1.5) 04/18/20 03:23 ABG Sodium 135.1 mmol/L (136.0-145.0) L 04/18/20 03:23 ABG Potassium 4.1 mmol/L (3.40-4.50) 04/18/20 03:23 ABG Chloride 100.0 mmol/L (98-107) 04/18/20 03:23 ABG Glucose 138 mg/dL (65-95) H 04/18/20 03:23 Oxyhemoglobin 92.8 % (95.0-99.0) L 04/11/20 03:44 Carboxyhemoglobin 0.6 (0.5-1.5) 04/18/20 03:23 FiO2 40 04/18/20 03:23 Sodium 142 mmol/L (137-145) 04/20/20 07:50 Potassium 4.1 mmol/L (3.6-5.0) 04/20/20 07:50 Chloride 100.6 mmol/L (98-107) 04/20/20 07:50 Carbon Dioxide 31 mmol/L (22-30) H 04/20/20 07:50 Anion Gap 15 mmol/L 04/20/20 07:50 BUN 16 mg/dL (7-17) 04/20/20 07:50 Creatinine 2.8 mg/dL (0.6-1.2) H 04/20/20 07:50 Estimated GFR 18 ml/min 04/20/20 07:50 BUN/Creatinine Ratio 6 % 04/20/20 07:50 Glucose 95 mg/dL (65-100) 04/20/20 07:50 POC Glucose 97 mg/dL (70-105) 04/20/20 11:56 Lactic Acid 0.90 mmol/L (0.7-2.0) 04/13/20 19:10 Calcium 9.0 mg/dL (8.4-10.2) 04/20/20 07:50 Phosphorus 3.00 mg/dL (2.5-4.5) 04/17/20 05:44 Magnesium 2.00 mg/dL (1.7-2.3) 04/17/20 05:44 Ferritin 743.0 ng/mL (10.0-200.0) H 04/07/20 09:34 Total Bilirubin 0.20 mg/dL (0.1-1.2) 04/19/20 06:24 AST 14 units/L (5-40) 04/19/20 06:24 ALT 7 units/L (7-56) 04/19/20 06:24 Alkaline Phosphatase 343 units/L (35-129) H 04/19/20 06:24 Ammonia 43.0 umol/L (25-60) 04/06/20 14:30 Lactate Dehydrogenase 195 units/L (91-180) H 04/07/20 09:34 Total Creatine Kinase 23 units/L (30-135) L 04/06/20 14:30 Total Creatine Kinase 24 units/L (30-135) L 04/06/20 14:30 Troponin T 0.224 ng/mL (0.00-0.029) H* 04/06/20 14:30 C-Reactive Protein 7.50 mg/dL (0.00-1.30) H 04/07/20 09:34 Total Protein 7.8 g/dL (6.3-8.2) 04/19/20 06:24 Albumin 2.8 g/dL (3.9-5) L 04/19/20 06:24 Albumin/Globulin Ratio 0.6 % 04/19/20 06:24 Triglycerides 342 mg/dL (2-149) H 04/06/20 14:30 Cholesterol 223 mg/dL (50-199) H 04/06/20 14:30 LDL Cholesterol Direct 123 mg/dL (50-130) 04/06/20 14:30 HDL Cholesterol 35 mg/dL (40-59) L 04/06/20 14:30 Cholesterol/HDL Ratio 6.37 % 04/06/20 14:30 Procalcitonin 1.59 ng/mL (<0.15) 04/13/20 19:10 TSH 1.320 mlU/mL (0.270-4.200) 04/06/20 14:30 HCG, Qual Negative (Negative) 04/06/20 14:30 Arterial Blood Glucose 138 mg/dL (65-95) H 04/18/20 03:23 Arterial Blood Ionized Calcium 4.5 mg/dL (4.6-5.3) L 04/18/20 03:23 Urine Color Yellow (Yellow) 04/06/20 13:34 Urine Turbidity Turbid (Clear) 04/06/20 13:34 Urine pH 7.0 (5.0-7.0) 04/06/20 13:34 Ur Specific [place] 1.017 (1.003-1.030) 04/06/20 13:34 Urine Protein 100 mg/dl mg/dL (Negative) 04/06/20 13:34 Urine Glucose (UA) 50 mg/dL (Negative) 04/06/20 13:34 Urine Ketones Tr mg/dL (Negative) 04/06/20 13:34 Urine Blood Sm (Negative) 04/06/20 13:34 Urine Nitrite Neg (Negative) 04/06/20 13:34 Urine Bilirubin Neg (Negative) 04/06/20 13:34 Urine Urobilinogen < 2.0 mg/dL (<2.0) 04/06/20 13:34 Ur Leukocyte Esterase Mod (Negative) 04/06/20 13:34 Urine WBC (Auto) > 182.0 /HPF (0.0-6.0) H 04/06/20 13:34 Urine RBC (Auto) 49.0 /HPF (0.0-6.0) 04/06/20 13:34 U Epithel Cells (Auto) 6.0 /HPF (0-13.0) 04/06/20 13:34 Urine Bacteria (Auto) 2+ /HPF (Negative) 04/06/20 13:34 Urine WBC Clumps 3+ /HPF 04/06/20 13:34 Urine Mucus 3+ /HPF 04/06/20 13:34 Salicylates < 0.3 mg/dL (2.8-20.0) L 04/06/20 14:30 Acetaminophen 5.0 ug/mL (10.0-30.0) L 04/06/20 14:30 Plasma/Serum Alcohol < 0.01 % (0-0.07) 04/06/20 14:30 Coronavirus (PCR) Negative (Negative) 04/07/20 Unknown Hepatitis A IgM Ab Non-reactive (NonReactive) 04/07/20 16:38 Hep Bs Antigen Non-reactive (Negative) 04/07/20 16:38 Hep B Core IgM Ab Non-reactive (NonReactive) 04/07/20 16:38 Hepatitis C Antibody Reactive (NonReactive) A 04/07/20 16:38 Blood Type O POSITIVE 04/06/20 14:30 Antibody Screen Negative 04/06/20 14:30 Bains/IV: Voiding Method Incontinent IV Catheter Type [Left Forearm INT / Saline Lock ] IV Catheter Type [Right VAS Cath Subclavian] IV Catheter Type [Left INT / Saline Lock Antecubital] IV Catheter Type [Right INT / Saline Lock Forearm] Active Medications - Current Medications Current Medications: Generic Name Dose Route Start Last Admin Trade Name Freq PRN Reason Stop Dose Admin Acetaminophen 650 mg 04/06/20 16:39 Tylenol PO Q6H PRN Pain, Mild (1-3) Albuterol 2.5 mg 04/19/20 12:54 04/19/20 17:11 Proventil IH 2.5 mg Q6HRT PRN Administration Shortness Of Breath Carvedilol 6.25 mg 04/13/20 22:00 04/20/20 09:15 Coreg PO Not Given BID [facility] Clonidine HCl 0.1 mg 04/25/20 08:00 Catapres-Tts Patch TD Tu [facility] Dextrose 50 ml 04/09/20 16:30 D50w (25gm) Syringe IV Q30MIN PRN Hypoglycemia Protocol Famotidine 20 mg 04/07/20 10:00 04/20/20 09:15 Pepcid PO Not Given QDAY [facility] Heparin Sodium (Porcine) 5,000 unit 04/06/20 22:00 04/20/20 09:09 Heparin SUB-Q 5,000 unit Q12HR NOEL Administration Hydromorphone HCl 1 mg 04/18/20 14:22 04/20/20 09:08 Dilaudid IV 1 mg Q4H PRN Administration Pain , Severe (7-10) Hydrophilic Ointment 1 applic 04/06/20 13:34 Vaseline Lip Therapy TP Q2HR PRN Dry Lips Sodium Chloride 100 mls @ 999 mls/hr 04/07/20 17:00 Nacl 0.9% IV SPRING PRN Hypotension Insulin Glargine 10 units 04/17/20 10:00 04/20/20 09:15 Lantus SUB-Q Not Given Q24HR [facility] Insulin Human Regular 0 unit 04/09/20 18:00 04/20/20 11:45 Humulin R SUB-Q Not Given Q6H [facility] Protocol Labetalol HCl 10 mg 04/08/20 17:17 04/19/20 23:15 Labetalol IV 10 mg Q4H PRN Administration Blood Pressure Multi-Ingred Cream/Lotion/Oil/Oint 1 applic 04/06/20 13:34 Artificial Tears Ophth Oint OU Q4HR PRN Dry Eye(s) Ondansetron HCl 4 mg 04/18/20 07:45 Zofran IV Q4H PRN Nausea And Vomiting Sodium Chloride 10 ml 04/06/20 22:00 04/20/20 09:09 Sodium Chloride Flush Syringe 10 Ml IV 10 ml BID NOEL Administration Sodium Chloride 10 ml 04/06/20 16:32 Sodium Chloride Flush Syringe 10 Ml IV PRN PRN LINE FLUSH Nutrition/Malnutrition Assess - Dietary Evaluation Nutrition/Malnutrition Findings: Nutrition Notes Start: 04/07/20 08:19 Freq: Status: Active Protocol: Document 04/19/20 11:52 LP (Rec: 04/19/20 12:17 LP [id number]) Nutrition Notes Initial or Follow up Reassessment Current Diagnosis CKD (stage V CKD),Diabetes, Hypertension,Stroke Other Pertinent Diagnosis on HD, bilateral BKA, AMS Current Diet Nepro 1.8 at 45 mL/hr (goal rate) Labs/Tests BUN 27 Cr 3.8 Pertinent Medications Reviewed Height 5 ft 5 in Weight 110.1 kg [place] Body Weight (kg) 56.81 BMI 40.4 Weight Status Morbidly Obese Subjective/Other Information Pt extubated and NGT removed. Will wait for diet advancement or replacement of NGT. GI Symptoms None Current % PO Negligible Minimum of two criteria No physical signs of malnutrition #1 Nutrition Diagnosis Inadequate oral intake As Evidenced by Signs and Symptoms NGT removed during extubation Diagnosis Progress(for reassessment Worsened documentation) Is patient on ventilator? No Is Patient Ambulatory and/or Out of Bed No REE-([facility]-confined to bed) 2063.820 Kcal/Kg value to use for calculation 16 Approximate Energy Requirements Using 1762 kcal/Kg Calculation Used for Recommendations Kcal/kg Additional Notes Protein needs are 67-83g (0.8- 1g/kg adj wt 83.3kg) Nutrition Intervention Change Diet Order: Advance diet as feasible Goal #1 Advance diet Anticipated Discharge Needs: Unable to determine at this time Follow-Up By: 04/21/20 Additional Comments Follow for diet advancement/ intakes or NGT placement
[2020-04-20] MEDS: D5W/0.9% NACL 1,000 ML IV SCH (17:04)
[2020-04-21] MEDS: INSULIN REGULAR, HUMAN 100 UNIT/ML 3ML VIAL SUB-Q SCH ×4 (01:17→17:49)
[2020-04-21] MEDS: HYDROmorphone 1 MG/1 ML INJ IV PRN ×5 (01:59→20:14)
[2020-04-21 05:10] LABS: Hemoglobin 9.7 gm/dl (10.1-14.3); Mean Corpuscular HGB Conc 32 % (30-34); Mean Corpuscular Volume 89 fl (79-97); Platelet Count 597 K/mm3 (140-440); Red Blood Count 3.37 M/mm3 (3.65-5.03); Red Cell Distribution Width 15.6 % (13.2-15.2)
[2020-04-21 05:32] LABS: Calcium 9.3 mg/dL (8.4-10.2)
[2020-04-21] MEDS: INSULIN GLARGINE 100 UNITS/ML SUB-Q SCH (09:01)
[2020-04-21] MEDS: carvediloL 6.25 MG TAB PO SCH ×2 (09:01→21:15)
[2020-04-21] MEDS: HEPARIN 5,000 UNIT/1 ML VIAL SUB-Q SCH ×3 (09:01→21:16)
[2020-04-21] MEDS: FAMOTIDINE 20 MG TAB PO SCH (09:02)
--- NOTE | 2020-04-21 10:57 | Progress Note ---
Assessment and Plan Assessment and plan: 49 years old female with history of asthma, hypertension, end-stage renal disease on hemodialysis, diabetes mellitus, bipolar disorder, morbid obesity, CVA, resident of a [facility], admitted on 04/06/2020 secondary to be found Unresponsiveness after hemodialysis. Patient is unable to provide history, currently intubated. Patient received hemodialysis and after completion she became unresponsive. Upon EMS arrival, blood pressure was 90/60, HR 88, temperature 97.2. Per records, patient was not complaining of any symptoms. On arrival, temperature 94.1, HR 66, RR 18, O2 sat 87%, BP 131/111. Initial WBC 19.2. Urinalysis showed more than 182 WBCs and moderate leukocyte esterase. Chest x-ray shows bibasilar infiltrates. Patient was intubated in the emergency room to protect airway. Bains catheter was placed yielding purulent urine. Severe sepsis. Present on admission with hypothermia, leukocytosis, altered mental status, likely due to bilateral pneumonia. F/U Blood Cx. Cont. Abx pre ID Bilateral pneumonia. Aspiration pneumonia/HAP illness induced Gastroparesis: Stable Severe UTI. Bains catheter with purulent urine. Acute hypoxemic and hypercapnic respiratory failure. Intubated for airway protection, O2 sats down to 87%. Acute toxic metabolic encephalopathy. Etiology secondary to sepsis Bibasilar atelectasis, End-stage renal disease on hemodialysis Anemia of chronic renal disease vancomycin allergy ? Causing hives. PER ID documentation at other hosptial does not show vanc allergy Chronic leukocytosis, appears so based on review of records from here and [facility] in the past were reviewed. Chronic Hepatitis C: treatment status unknown. F/U HCV RNA PCR. Extensive Candidal intertrigo in groin and vagina. Cont. Fluconazole Intractable nausea with vomiting. 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 Patient remains intubated on mechanical ventilation with AC mode ventilation rate 12, tidal volume 450, FiO2 40% and a PEEP of 6. Continue weaning per protocols. Patient with ESRD and continue TTS schedule per nephrology. Patient does have a history of COVID-19 infection(01/07/20) but negative testing April 07. Follow-up blood/urine/sputum culture. Continue antibiotics per ID recommendations. 04/09/2020. Patient not tolerating PSV 12/6 with FiO2 of 30%. Continue hemod ialysis per nephrology recommendations. Continue IV antibiotics per ID recommendations. Blood cultures no growth to date. Respiratory therapy reports patient with accelerated hypertension and apneic episodes on PSV ventilation. Await pulmonary recommendations. 04/10/2020. Patient remains on mechanical ventilation AC mode rate 12, tidal volume 450, FiO2 30% and a PEEP of 6. Continue PSV trials per protocols. Continue hemodialysis per nephrology recommendations. Continue anti-infectives of fluconazole and cefepime. Follow-up blood/urine/sputum culture. ID, pulmonary and nephrology following. 04/11/2020; patient remains on mechanical ventilation AC mode rate 12, tidal volume 450, FiO2 of 30 and PEEP of 6. Continue PSV trials per protocols. continue hemodialysis per nephrology. ID changed antibiotics to meropenem. Blood culture grew staph epidermidis likey contaminant. 04/12/2020; patient is intubated, patient open eyes spontaneously. Neurology consulted and continue on replacement treatment. EEG is pending. Recommend MRI. Patient is on meropenem per ID recommendation. Pulmonary is following. Patient is on spontaneous breathing trial 04/13/2020; patient is intubated. Patient's blood pressure was high yesterday, amlodipine and hydralazine was added. Overnight his blood pressure was low and will also BP medications. We will continue to follow. 04/14/2020; patient is intubated and blood pressure is on the low side of normal. Patient is on meropenem 5/5. 04/15/2020; patient is intubated, on spontaneous breathing trial. Pulmonary is following. neurology recommend MRI. 04/16/2020; patient is intubated, on spontaneous breathing trial. Pulmonary is following. Neurology recommend MRI once stable. 04/17: Patient showing some clinical improvement. MRI still pending. Continues on restraints weaning trial today. Antibiotics per ID continue aspiration precautions although management by critical care physician. Noted elevated D- dimer level with trend. See ultrasound of the lower extremity was negative for DVT. Prior hospitalization showed elevated D-dimer also. Will discuss with nephrology if patient needs CTA to see if this can be managed with dialysis. This will be done if patient is unable to wean from the vent due to hypoxia. 04/18: Patient required re-intubation last night due to self extubation and decompensation with hypoxia. CXR post extubation showed tube in expected position. Patient also noted to have large projectile vomiting. - Obtain KUB - start Zofran - Hold tube feeds - May benefit from GI eval if vomiting continues. - She is currently being treated for Aspiration Pneumonia with bactermia and Acute cystitis 04/19: Now extubated, Continue supportive care and aspiration precautions. Patient complaining of chronic pain, will resume home dose pain meds and avoid oversedation. No new seizure noted. still awaiting MRI brain. GI input noted: illness induced gastropoaresis, otherwise KUB and LFT normal, will start low fat fiber diet once patient able to tolerate PO. Continue to monitor WBC, increased again today. 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 Unless indicated by Intesivist will like to monitor patient in the ICU for additional 24 hrs before downgrading. 04/20: CONTINUE Aspiration precautions, started on D5NS for low Blood glucose. Speech re-eval today. PAIN CONTROL 04/21: Continue aspiration precautions. Blood sugar stable continue to monitor WBC count. Will reassess with speech evaluation continue restraints due to aggressive behavior towards nurses and pulling on shelving. Monitor mental status. History Interval history: Patient seen and examined, continues to have altered sensorium intermittently. Nursing staff states that she threw something on them yesterday. Hospitalist Physical - Physical exam Narrative exam: VITAL SIGNS: Reviewed. GENERAL: The patient appears normally developed, lethargic with Nasal cannula, vital signs as documented. HEAD: No signs of head trauma. EYES: Pupils are equal. Extraocular motions intact. EARS: Hearing grossly intact. MOUTH: Oropharynx is normal. face mask on. NECK: No adenopathy, no JVD. CHEST: Chest with transmitted breath sounds bilaterally. No wheezes, rales, or rhonchi. CARDIAC: Regular rate and rhythm. S1 and S2, without murmurs, gallops, or rubs. VASCULAR: No Edema. Peripheral pulses normal and equal in all extremities. ABDOMEN: Soft, non tender and non distended. No rebound or guarding, and no masses palpated. Bowel Sounds normal. MUSCULOSKELETAL: Bilateral BKA NEUROLOGIC EXAM: Awake, lethargic ORIENTED to person place and time. Follows some commands. PSYCHIATRIC: Mood normal. SKIN: detail exam as documented in skin assessment - Constitutional Vitals: Temp Pulse Resp BP Pulse Ox 97.5 F L 76 18 189/56 100 04/21/20 09:55 04/21/20 09:55 04/21/20 09:55 04/21/20 09:55 04/21/20 09:55 General appearance: Present: severe distress, other (Intubated on mechanical ventilation) HEART Score - HEART Score Troponin: Troponin T 0.224 ng/mL (0.00-0.029) H* 04/06/20 14:30 Results - Labs CBC & Chem 7: 04/21/20 04:32 04/21/20 04:32 Labs: Laboratory Last Values WBC 16.4 K/mm3 (4.5-11.0) H 04/21/20 04:32 RBC 3.37 M/mm3 (3.65-5.03) L 04/21/20 04:32 Hgb 9.7 gm/dl (10.1-14.3) L 04/21/20 04:32 Hct 30.0 % (30.3-42.9) L 04/21/20 04:32 MCV 89 fl (79-97) 04/21/20 04:32 MCH 29 pg (28-32) 04/21/20 04:32 MCHC 32 % (30-34) 04/21/20 04:32 RDW 15.6 % (13.2-15.2) H 04/21/20 04:32 Plt Count 597 K/mm3 (140-440) H 04/21/20 04:32 Add Manual Diff Complete 04/17/20 05:44 Total Counted 100 04/17/20 05:44 Seg Neuts % (Manual) 81.0 % (40.0-70.0) H 04/17/20 05:44 Band Neutrophils % 0 % 04/17/20 05:44 Lymphocytes % (Manual) 11.0 % (13.4-35.0) L 04/17/20 05:44 Reactive Lymphs % (Man) 0 % 04/17/20 05:44 Monocytes % (Manual) 3.0 % (0.0-7.3) 04/17/20 05:44 Eosinophils % (Manual) 3.0 % (0.0-4.3) 04/17/20 05:44 Basophils % (Manual) 1.0 % (0.0-1.8) 04/17/20 05:44 Metamyelocytes % 0 % 04/17/20 05:44 Myelocytes % 1.0 % 04/17/20 05:44 Promyelocytes % 0 % 04/17/20 05:44 Blast Cells % 0 % 04/17/20 05:44 Nucleated RBC % Not Reportable 04/17/20 05:44 Seg Neutrophils # Man 15.8 K/mm3 (1.8-7.7) H 04/17/20 05:44 Band Neutrophils # 0.0 K/mm3 04/17/20 05:44 Lymphocytes # (Manual) 2.1 K/mm3 (1.2-5.4) 04/17/20 05:44 Abs React Lymphs (Man) 0.0 K/mm3 04/17/20 05:44 Monocytes # (Manual) 0.6 K/mm3 (0.0-0.8) 04/17/20 05:44 Eosinophils # (Manual) 0.6 K/mm3 (0.0-0.4) H 04/17/20 05:44 Basophils # (Manual) 0.2 K/mm3 (0.0-0.1) H 04/17/20 05:44 Metamyelocytes # 0.0 K/mm3 04/17/20 05:44 Myelocytes # 0.2 K/mm3 04/17/20 05:44 Promyelocytes # 0.0 K/mm3 04/17/20 05:44 Blast Cells # 0.0 K/mm3 04/17/20 05:44 WBC Morphology Not Reportable 04/17/20 05:44 Hypersegmented Neuts Not Reportable 04/17/20 05:44 Hyposegmented Neuts Not Reportable 04/17/20 05:44 Hypogranular Neuts Not Reportable 04/17/20 05:44 Smudge Cells Not Reportable 04/17/20 05:44 Toxic Granulation Not Reportable 04/17/20 05:44 Toxic Vacuolation Not Reportable 04/17/20 05:44 Dohle Bodies Not Reportable 04/17/20 05:44 Pelger-Huet Anomaly Not Reportable 04/17/20 05:44 Stephanie Rods Not Reportable 04/17/20 05:44 Platelet Estimate Consistent w auto 04/17/20 05:44 Clumped Platelets Not Reportable 04/17/20 05:44 Plt Clumps, EDTA Not Reportable 04/17/20 05:44 Large Platelets Not Reportable 04/17/20 05:44 Giant Platelets Not Reportable 04/17/20 05:44 Platelet Satelliting Not Reportable 04/17/20 05:44 Plt Morphology Comment Not Reportable 04/17/20 05:44 RBC Morphology Normal 04/17/20 05:44 Dimorphic RBCs Not Reportable 04/17/20 05:44 Polychromasia Not Reportable 04/17/20 05:44 Hypochromasia Not Reportable 04/17/20 05:44 Poikilocytosis Not Reportable 04/17/20 05:44 Anisocytosis Not Reportable 04/17/20 05:44 Microcytosis Not Reportable 04/17/20 05:44 Macrocytosis Not Reportable 04/17/20 05:44 Spherocytes Few 04/17/20 05:44 Pappenheimer Bodies Not Reportable 04/17/20 05:44 Sickle Cells Not Reportable 04/17/20 05:44 Target Cells Not Reportable 04/17/20 05:44 Tear Drop Cells Not Reportable 04/17/20 05:44 Ovalocytes Not Reportable 04/17/20 05:44 Stomatocytes Few 04/12/20 08:14 Helmet Cells Not Reportable 04/17/20 05:44 [place] Bodies Not Reportable 04/17/20 05:44 [place] Rings Not Reportable 04/17/20 05:44 Michael Cells Not Reportable 04/17/20 05:44 Bite Cells Not Reportable 04/17/20 05:44 Crenated Cell Not Reportable 04/17/20 05:44 Elliptocytes Not Reportable 04/17/20 05:44 Acanthocytes (Spur) Not Reportable 04/17/20 05:44 Rouleaux Not Reportable 04/17/20 05:44 Hemoglobin C Crystals Not Reportable 04/17/20 05:44 Schistocytes Not Reportable 04/17/20 05:44 Malaria parasites Not Reportable 04/17/20 05:44 Lc Bodies Not Reportable 04/17/20 05:44 Hem Pathologist Commnt No 04/17/20 05:44 PT 13.8 Sec. (12.2-14.9) 04/06/20 14:30 INR 1.04 (0.87-1.13) 04/06/20 14:30 APTT 28.1 Sec. (24.2-36.6) 04/06/20 14:30 D-Dimer 1144.77 ng/mlDDU (0-234) H 04/18/20 06:48 ABG pH 7.486 (7.320-7.450) H 04/18/20 03:23 POC ABG pCO2 40.7 mmHg (32.0-48.0) 04/18/20 03:23 ABG pCO2 54.0 mm Hg 04/11/20 03:44 POC ABG pO2 56.4 mmHg (83-108) L 04/18/20 03:23 ABG pO2 73.4 mm Hg (80.0-90.0) L 04/11/20 03:44 POC ABG HCO3 30.0 04/18/20 03:23 ABG HCO3 26.7 mmol/L (20.0-26.0) H 04/11/20 03:44 ABG O2 Saturation 95.0 % (95.0-99.0) 04/11/20 03:44 ABG O2 Content 14.4 (0.0-44) 04/11/20 03:44 POC ABG Base Excess 6.1 04/18/20 03:23 ABG Base Excess -0.1 mmol/L (-2.0-3.0) 04/11/20 03:44 ABG Hemoglobin 11.2 (12.0-17.5) L 04/18/20 03:23 ABG Oxyhemoglobin 92.0 (94-98) L 04/18/20 03:23 ABG Carboxyhemoglobin 1.6 % (0.0-5.0) 04/11/20 03:44 ABG Methemoglobin 0.3 (0.0-1.5) 04/18/20 03:23 ABG Sodium 135.1 mmol/L (136.0-145.0) L 04/18/20 03:23 ABG Potassium 4.1 mmol/L (3.40-4.50) 04/18/20 03:23 ABG Chloride 100.0 mmol/L (98-107) 04/18/20 03:23 ABG Glucose 138 mg/dL (65-95) H 04/18/20 03:23 Oxyhemoglobin 92.8 % (95.0-99.0) L 04/11/20 03:44 Carboxyhemoglobin 0.6 (0.5-1.5) 04/18/20 03:23 FiO2 40 04/18/20 03:23 Sodium 145 mmol/L (137-145) 04/21/20 04:32 Potassium 4.2 mmol/L (3.6-5.0) 04/21/20 04:32 Chloride 102.2 mmol/L (98-107) 04/21/20 04:32 Carbon Dioxide 29 mmol/L (22-30) 04/21/20 04:32 Anion Gap 18 mmol/L 04/21/20 04:32 BUN 25 mg/dL (7-17) H 04/21/20 04:32 Creatinine 3.9 mg/dL (0.6-1.2) H 04/21/20 04:32 Estimated GFR 12 ml/min 04/21/20 04:32 BUN/Creatinine Ratio 6 % 04/21/20 04:32 Glucose 106 mg/dL (65-100) H 04/21/20 04:32 POC Glucose 98 mg/dL (70-105) 04/21/20 06:04 Lactic Acid 0.90 mmol/L (0.7-2.0) 04/13/20 19:10 Calcium 9.3 mg/dL (8.4-10.2) 04/21/20 04:32 Phosphorus 3.00 mg/dL (2.5-4.5) 04/17/20 05:44 Magnesium 2.00 mg/dL (1.7-2.3) 04/17/20 05:44 Ferritin 743.0 ng/mL (10.0-200.0) H 04/07/20 09:34 Total Bilirubin 0.30 mg/dL (0.1-1.2) 04/21/20 04:32 AST 12 units/L (5-40) 04/21/20 04:32 ALT 7 units/L (7-56) 04/21/20 04:32 Alkaline Phosphatase 324 units/L (35-129) H 04/21/20 04:32 Ammonia 43.0 umol/L (25-60) 04/06/20 14:30 Lactate Dehydrogenase 195 units/L (91-180) H 04/07/20 09:34 Total Creatine Kinase 23 units/L (30-135) L 04/06/20 14:30 Total Creatine Kinase 24 units/L (30-135) L 04/06/20 14:30 Troponin T 0.224 ng/mL (0.00-0.029) H* 04/06/20 14:30 C-Reactive Protein 7.50 mg/dL (0.00-1.30) H 04/07/20 09:34 Total Protein 7.9 g/dL (6.3-8.2) 04/21/20 04:32 Albumin 3.0 g/dL (3.9-5) L 04/21/20 04:32 Albumin/Globulin Ratio 0.6 % 04/21/20 04:32 Triglycerides 342 mg/dL (2-149) H 04/06/20 14:30 Cholesterol 223 mg/dL (50-199) H 04/06/20 14:30 LDL Cholesterol Direct 123 mg/dL (50-130) 04/06/20 14:30 HDL Cholesterol 35 mg/dL (40-59) L 04/06/20 14:30 Cholesterol/HDL Ratio 6.37 % 04/06/20 14:30 Procalcitonin 1.59 ng/mL (<0.15) 04/13/20 19:10 TSH 1.320 mlU/mL (0.270-4.200) 04/06/20 14:30 HCG, Qual Negative (Negative) 04/06/20 14:30 Arterial Blood Glucose 138 mg/dL (65-95) H 04/18/20 03:23 Arterial Blood Ionized Calcium 4.5 mg/dL (4.6-5.3) L 04/18/20 03:23 Urine Color Yellow (Yellow) 04/06/20 13:34 Urine Turbidity Turbid (Clear) 04/06/20 13:34 Urine pH 7.0 (5.0-7.0) 04/06/20 13:34 Ur Specific [place] 1.017 (1.003-1.030) 04/06/20 13:34 Urine Protein 100 mg/dl mg/dL (Negative) 04/06/20 13:34 Urine Glucose (UA) 50 mg/dL (Negative) 04/06/20 13:34 Urine Ketones Tr mg/dL (Negative) 04/06/20 13:34 Urine Blood Sm (Negative) 04/06/20 13:34 Urine Nitrite Neg (Negative) 04/06/20 13:34 Urine Bilirubin Neg (Negative) 04/06/20 13:34 Urine Urobilinogen < 2.0 mg/dL (<2.0) 04/06/20 13:34 Ur Leukocyte Esterase Mod (Negative) 04/06/20 13:34 Urine WBC (Auto) > 182.0 /HPF (0.0-6.0) H 04/06/20 13:34 Urine RBC (Auto) 49.0 /HPF (0.0-6.0) 04/06/20 13:34 U Epithel Cells (Auto) 6.0 /HPF (0-13.0) 04/06/20 13:34 Urine Bacteria (Auto) 2+ /HPF (Negative) 04/06/20 13:34 Urine WBC Clumps 3+ /HPF 04/06/20 13:34 Urine Mucus 3+ /HPF 04/06/20 13:34 Salicylates < 0.3 mg/dL (2.8-20.0) L 04/06/20 14:30 Acetaminophen 5.0 ug/mL (10.0-30.0) L 04/06/20 14:30 Plasma/Serum Alcohol < 0.01 % (0-0.07) 04/06/20 14:30 Coronavirus (PCR) Negative (Negative) 04/07/20 Unknown Hepatitis A IgM Ab Non-reactive (NonReactive) 04/07/20 16:38 Hep Bs Antigen Non-reactive (Negative) 04/07/20 16:38 Hep B Core IgM Ab Non-reactive (NonReactive) 04/07/20 16:38 Hepatitis C Antibody Reactive (NonReactive) A 04/07/20 16:38 Blood Type O POSITIVE 04/06/20 14:30 Antibody Screen Negative 04/06/20 14:30 Bains/IV: Voiding Method Incontinent IV Catheter Type [Left Forearm INT / Saline Lock ] IV Catheter Type [Right VAS Cath Subclavian] IV Catheter Type [Left INT / Saline Lock Antecubital] IV Catheter Type [Right INT / Saline Lock Forearm] Active Medications - Current Medications Current Medications: Generic Name Dose Route Start Last Admin Trade Name Freq PRN Reason Stop Dose Admin Acetaminophen 650 mg 04/06/20 16:39 Tylenol PO Q6H PRN Pain, Mild (1-3) Albuterol 2.5 mg 04/19/20 12:54 04/19/20 17:11 Proventil IH 2.5 mg Q6HRT PRN Administration Shortness Of Breath Carvedilol 6.25 mg 04/13/20 22:00 04/21/20 09:01 Coreg PO Not Given BID [facility] Clonidine HCl 0.1 mg 04/25/20 08:00 Catapres-Tts Patch TD Tu [facility] Dextrose 50 ml 04/09/20 16:30 D50w (25gm) Syringe IV Q30MIN PRN Hypoglycemia Protocol Famotidine 20 mg 04/07/20 10:00 04/21/20 09:02 Pepcid PO Not Given QDAY [facility] Heparin Sodium (Porcine) 5,000 unit 04/06/20 22:00 04/21/20 09:01 Heparin SUB-Q 5,000 unit Q12HR NOEL Administration Hydromorphone HCl 1 mg 04/18/20 14:22 04/21/20 09:00 Dilaudid IV 1 mg Q4H PRN Administration Pain , Severe (7-10) Hydrophilic Ointment 1 applic 04/06/20 13:34 Vaseline Lip Therapy TP Q2HR PRN Dry Lips Sodium Chloride 100 mls @ 999 mls/hr 04/07/20 17:00 Nacl 0.9% IV SPRING PRN Hypotension Dextrose/Sodium Chloride 1,000 mls @ 42 mls/hr 04/20/20 13:00 04/20/20 17:04 D5ns IV 42 mls/hr DIRECT NOEL Administration Insulin Glargine 10 units 04/17/20 10:00 04/21/20 09:01 Lantus SUB-Q Not Given Q24HR [facility] Insulin Human Regular 0 unit 04/09/20 18:00 04/21/20 06:08 Humulin R SUB-Q Not Given Q6H [facility] Protocol Labetalol HCl 10 mg 04/08/20 17:17 04/20/20 20:30 Labetalol IV 10 mg Q4H PRN Administration Blood Pressure Multi-Ingred Cream/Lotion/Oil/Oint 1 applic 04/06/20 13:34 Artificial Tears Ophth Oint OU Q4HR PRN Dry Eye(s) Ondansetron HCl 4 mg 04/18/20 07:45 Zofran IV Q4H PRN Nausea And Vomiting Sodium Chloride 10 ml 04/06/20 22:00 04/21/20 09:01 Sodium Chloride Flush Syringe 10 Ml IV 10 ml BID NOEL Administration Sodium Chloride 10 ml 04/06/20 16:32 Sodium Chloride Flush Syringe 10 Ml IV PRN PRN LINE FLUSH Nutrition/Malnutrition Assess - Dietary Evaluation Nutrition/Malnutrition Findings: Nutrition Notes Start: 04/07/20 08:19 Freq: Status: Active Protocol: Document 04/21/20 10:15 LM (Rec: 04/21/20 10:18 LM [id number]) Nutrition Notes Initial or Follow up Brief Note Current Diagnosis CKD (stage V CKD),Diabetes, Hypertension,Stroke Other Pertinent Diagnosis on HD, bilateral BKA, AMS Current Diet No diet Subjective/Other Information Pt with no diet order. Pt to get re-evaluated by [facility]. Nutrition Intervention Follow-Up By: 04/25/20 Additional Comments F/U for [facility] recs, diet advancement, intakes
--- NOTE | 2020-04-21 15:51 | Progress Note ---
Subjective Principal diagnosis: Ac on ch hypoxemic and hypercapnic resp failure; PUI COVID- 19 infxn; AMS Interval history: Patient was seen today for follow-up of multiple renal related issues, around 1120 in the morning she was also seen and supervised on hemodialysis No complaints of any chest pain pressure or shortness of breath Interdisciplinary notes that also reviewed Events of 24 hours vitals labs intake output medications were reviewed Past medical history: Reviewed Family history: Reviewed Social history: Reviewed Allergies: Reviewed Physical examination: Vitals: Reviewed HEENT: No pallor or icterus oral mucosa moist Neck: Supple no JVD no thyromegaly Chest: Bilateral clear to auscultation anteriorly Heart: Regular rate and rhythm S1-S2 heard no S3-S4 Abdomen: Soft nontender no voluntary guarding rigidity rebound Extremity: Dry skin less than 1+ peripheral edema 1 leg amputated Psychiatric: No evidence of agitation and aggression noted Dermatology: No petechial rashes Labs and x-rays: Reviewed from today Assessment and plan ESRD: Patient was seen and supervised and hemodialysis will continue with him dialysis treatment on Friday schedule #Anemia and end-stage renal disease: To monitor and follow erythropoietin as needed, hemoglobin appears to be improving currently 9.7 leukocytosis improving, coagulase-negative staph likely contaminant #Diet and nutrition consider high protein diet #Hypertension and volume appears to be stable at this time #Metabolic control appears to be stable BUN 25 creatinine 3.9 calcium 9.3 #Transferred from ICU to the floor was in respiratory failure, compliance needs to improve We'll continue to follow and make recommendation for renal standpoint Objective - Vital Signs Vital signs: Vital Signs - 12hr 04/21/20 04/21/20 04/21/20 04:14 08:37 09:45 Temperature 98.0 F 97.5 F L Pulse Rate 90 89 90 Pulse Rate [ From Monitor] Pulse Rate [ Left Radial] Pulse Rate [ Right Radial] Respiratory 18 18 Rate Blood Pressure 163/51 169/57 O2 Sat by Pulse 97 92 Oximetry O2 Sat by Pulse Oximetry [ Anterior Bilateral Throughout] 04/21/20 04/21/20 04/21/20 09:55 10:00 10:15 Temperature 97.5 F L Pulse Rate 76 79 77 Pulse Rate [ 78 From Monitor] Pulse Rate [ 78 Left Radial] Pulse Rate [ 78 Right Radial] Respiratory 18 23 Rate Blood Pressure 189/56 195/75 184/65 O2 Sat by Pulse 99 Oximetry O2 Sat by Pulse 100 Oximetry [ Anterior Bilateral Throughout] 04/21/20 04/21/20 04/21/20 10:30 10:45 11:00 Temperature Pulse Rate 79 82 91 H Pulse Rate [ From Monitor] Pulse Rate [ Left Radial] Pulse Rate [ Right Radial] Respiratory Rate Blood Pressure 157/57 169/70 166/60 O2 Sat by Pulse Oximetry O2 Sat by Pulse Oximetry [ Anterior Bilateral Throughout] - Lab 04/21/20 04:32 04/21/20 04:32 Most recent lab results ABG pH 7.486 (7.320-7.450) H 04/18/20 03:23 ABG pCO2 54.0 mm Hg 04/11/20 03:44 ABG pO2 73.4 mm Hg (80.0-90.0) L 04/11/20 03:44 ABG HCO3 26.7 mmol/L (20.0-26.0) H 04/11/20 03:44 ABG O2 Saturation 95.0 % (95.0-99.0) 04/11/20 03:44 Calcium 9.3 mg/dL (8.4-10.2) 04/21/20 04:32 Phosphorus 3.00 mg/dL (2.5-4.5) 04/17/20 05:44 Magnesium 2.00 mg/dL (1.7-2.3) 04/17/20 05:44 Medications & Allergies - Medications Allergies/Adverse Reactions: Allergies carrot Allergy (Verified 07/28/19 12:30) Hives erythromycin base Allergy (Verified 07/30/19 11:26) Hives latex Allergy (Verified 02/18/19 13:20) Rash peas Allergy (Verified 12/20/19 12:37) Hives vancomycin Allergy (Verified 12/31/19 15:46) Hives Home Medications: Home Medications Medication Instructions Recorded Confirmed Last Taken Type Aripiprazole 5 mg PO DAILY 02/18/19 04/06/20 02/17/19 History Benadryl CAP 25 mg PO Q8H PRN 02/18/19 04/06/20 02/17/19 History Calcium Acetate 667 mg PO TIDWM 02/18/19 04/06/20 02/17/19 History Carvedilol 6.25 mg PO Q12H 02/18/19 04/06/20 02/17/19 History Colace CAP 100 mg PO Q12H PRN 02/18/19 04/06/20 02/17/19 History Esomeprazole Magnesium 40 mg PO QDAC 02/18/19 04/06/20 02/17/19 History HumaLOG 10 units SUB-Q TIDWM 02/18/19 04/06/20 02/17/19 History Insulin Detemir (Nf) [Levemir See Protocol SQ QHS 02/18/19 04/06/20 02/17/19 History Flextouch (Nf)] Losartan Potassium 50 mg PO DAILY 02/18/19 04/06/20 02/17/19 History Lyrica 75 mg PO Q12H 02/18/19 04/06/20 02/17/19 History Melatonin 6 mg PO QHS 02/18/19 04/06/20 02/17/19 History Senna 17.2 mg PO QHS PRN 02/18/19 04/06/20 02/17/19 History Venlafaxine HCl [Venlafaxine HCl 150 mg PO QDAC 02/18/19 04/06/20 02/17/19 History ER] Vitamin C 250 mg PO DAILY 02/18/19 04/06/20 02/17/19 History ZyrTEC 10mg cap 10 mg PO DAILY 02/18/19 04/06/20 02/17/19 History Calcium Acetate [Phoslo] 667 mg PO TIDWM capsule 12/22/19 04/06/20 Unknown Rx Fe Fumarate/FA/Mv, Min Comb#15 1 each PO QDAY capsule 12/22/19 04/06/20 Unknown Rx [Hemocyte Plus] Albuterol Mdi (or & Nicu Only) 2.5 puff IH Q4HRT PRN inha 01/12/20 04/06/20 Unknown Rx [ProAir HFA Inhaler] dexAMETHasone [Decadron] 6 mg PO Q12HR #10 tablet 01/12/20 04/06/20 Unknown Rx oxyCODONE 5 mg PO Q6H PRN #10 01/12/20 04/06/20 Unknown Rx Active Medications: Generic Name Dose Route Start Last Admin Trade Name Freq PRN Reason Stop Dose Admin Acetaminophen 650 mg 04/06/20 16:39 Tylenol PO Q6H PRN Pain, Mild (1-3) Albuterol 2.5 mg 04/19/20 12:54 04/19/20 17:11 Proventil IH 2.5 mg Q6HRT PRN Administration Shortness Of Breath Carvedilol 6.25 mg 04/13/20 22:00 04/21/20 09:01 Coreg PO Not Given BID [facility] Clonidine HCl 0.1 mg 04/25/20 08:00 Catapres-Tts Patch TD Tu [facility] Dextrose 50 ml 04/09/20 16:30 D50w (25gm) Syringe IV Q30MIN PRN Hypoglycemia Protocol Famotidine 20 mg 04/07/20 10:00 04/21/20 09:02 Pepcid PO Not Given QDAY [facility] Heparin Sodium (Porcine) 5,000 unit 04/06/20 22:00 04/21/20 09:01 Heparin SUB-Q 5,000 unit Q12HR NOEL Administration Hydromorphone HCl 1 mg 04/18/20 14:22 04/21/20 14:32 Dilaudid IV 1 mg Q4H PRN Administration Pain , Severe (7-10) Hydrophilic Ointment 1 applic 04/06/20 13:34 Vaseline Lip Therapy TP Q2HR PRN Dry Lips Sodium Chloride 100 mls @ 999 mls/hr 04/07/20 17:00 Nacl 0.9% IV SPRING PRN Hypotension Dextrose/Sodium Chloride 1,000 mls @ 42 mls/hr 04/20/20 13:00 04/20/20 17:04 D5ns IV 42 mls/hr DIRECT NOEL Administration Insulin Glargine 10 units 04/17/20 10:00 04/21/20 09:01 Lantus SUB-Q Not Given Q24HR [facility] Insulin Human Regular 0 unit 04/09/20 18:00 04/21/20 11:49 Humulin R SUB-Q Not Given Q6H [facility] Protocol Labetalol HCl 10 mg 04/08/20 17:17 04/20/20 20:30 Labetalol IV 10 mg Q4H PRN Administration Blood Pressure Multi-Ingred Cream/Lotion/Oil/Oint 1 applic 04/06/20 13:34 Artificial Tears Ophth Oint OU Q4HR PRN Dry Eye(s) Ondansetron HCl 4 mg 04/18/20 07:45 Zofran IV Q4H PRN Nausea And Vomiting Sodium Chloride 10 ml 04/06/20 22:00 04/21/20 09:01 Sodium Chloride Flush Syringe 10 Ml IV 10 ml BID NOEL Administration Sodium Chloride 10 ml 04/06/20 16:32 Sodium Chloride Flush Syringe 10 Ml IV PRN PRN LINE FLUSH
[2020-04-21] MEDS: D5W/0.9% NACL 1,000 ML IV SCH (16:18)
[2020-04-21] MEDS: ONDANSETRON 4 MG/2 ML INJ IV PRN (20:14)
--- NOTE | 2020-04-21 22:10 | Progress Note ---
Assessment and Plan Patient alert, awake. Patient Obese and is On 5 litres O2. O2 saturation 99%. Patient complaining slight cough. No complaint of chest pain or shortness of breath at this time. Patient has history of smoking 2 packs a day x 30 years. Stopped smoking at least 10 years ago. Denies alcohol or drug abuse. Used work for [employer]. Patient and has 3 children. Allergic to multiple allergens Carrots, Erythromycin, Ltex, Peas and vancomycin. Patient intubated and extubated for acute respiratory failure. Chest xray 04/17/20 reported Stable bibasilar opacities. No pneumothorax. Patient afebrile but has leukocytosis. Patient is on albuterol aerosol treatments , S/C Heparin and famotidine. - Patient Problems (1) Acute respiratory failure Current Visit: Yes Status: Acute Qualifiers: Respiratory failure complication: hypoxia Qualified Code(s): J96.01 - Acute respiratory failure with hypoxia Plan to address problem: O2 5 litres via nasal canula. Albuterol aerosol treatments. S/C Heparin. Famotidine. (2) Encephalopathy acute Current Visit: Yes Status: Acute Plan to address problem: Management as per primary care. (3) End stage renal disease Current Visit: Yes Status: Acute Plan to address problem: Management as per nephrology. (4) Hypertensive emergency Current Visit: Yes Status: Acute Plan to address problem: Management as per primary care. (5) Coronavirus infection Current Visit: No Status: Acute Plan to address problem: Test reported negative. (6) Diabetes Current Visit: No Status: Acute Plan to address problem: Management as per primary care. (7) Hypertension Current Visit: No Status: Acute Qualifiers: Hypertension type: essential hypertension Qualified Code(s): I10 - Essential (primary) hypertension Plan to address problem: Management as per primary care. Subjective Date of service: 04/21/20 Principal diagnosis: Ac on ch hypoxemic and hypercapnic resp failure; PUI COVID- 19 infxn; AMS Interval history: Patient alert, awake. Patient Obese and is On 5 litres O2. O2 saturation 99%. Patient complaining slight cough. No complaint of chest pain or shortness of breath at this time. Patient has history of smoking 2 packs a day x 30 years. Stopped smoking at least 10 years ago. Denies alcohol or drug abuse. Used work for [employer]. Patient and has 3 children. Allergic to multiple allergens Carrots, Erythromycin, Ltex, Peas and vancomycin. Patient intubated and extubated for acute respiratory failure. Chest xray 04/17/20 reported Stable bibasilar opacities. No pneumothorax. Patient afebrile but has leukocytosis. Patient is on albuterol aerosol treatments , S/C Heparin and famotidine. Objective Vital Signs - 12hr 04/21/20 04/21/20 04/21/20 10:15 10:30 10:45 Temperature Pulse Rate 77 79 82 Respiratory Rate Blood Pressure 184/65 157/57 169/70 O2 Sat by Pulse Oximetry O2 Sat by Pulse Oximetry [ Anterior Bilateral Throughout] 04/21/20 04/21/20 04/21/20 11:00 11:15 11:30 Temperature Pulse Rate 91 H 94 H 90 Respiratory Rate Blood Pressure 166/60 154/88 150/66 O2 Sat by Pulse Oximetry O2 Sat by Pulse Oximetry [ Anterior Bilateral Throughout] 04/21/20 04/21/20 04/21/20 11:45 12:00 12:15 Temperature Pulse Rate 87 90 96 H Respiratory Rate Blood Pressure 166/58 174/72 170/48 O2 Sat by Pulse Oximetry O2 Sat by Pulse Oximetry [ Anterior Bilateral Throughout] 04/21/20 04/21/20 04/21/20 12:30 12:45 13:00 Temperature Pulse Rate 94 H 94 H 99 H Respiratory Rate Blood Pressure 162/42 160/45 166/59 O2 Sat by Pulse Oximetry O2 Sat by Pulse Oximetry [ Anterior Bilateral Throughout] 04/21/20 04/21/20 04/21/20 13:15 16:18 17:00 Temperature 98.2 F Pulse Rate 98 H 89 98 H Respiratory 18 Rate Blood Pressure 160/60 167/92 O2 Sat by Pulse Oximetry O2 Sat by Pulse 100 Oximetry [ Anterior Bilateral Throughout] 04/21/20 04/21/20 17:20 19:52 Temperature 98.3 F Pulse Rate 83 86 Respiratory 20 Rate Blood Pressure 120/52 158/48 O2 Sat by Pulse 97 98 Oximetry O2 Sat by Pulse Oximetry [ Anterior Bilateral Throughout] Constitutional: no acute distress, alert, other (middle aged obese female with mildly increased respiratory effort at rest) Eyes: non-icteric ENT: oropharynx moist, other Neck: supple, no lymphadenopathy, no JVD Effort: normal Ascultation: Bilateral: diminished breath sounds Percussion: Bilateral: not dull Cardiovascular: regular rate and rhythm, other (S1,S2) Gastrointestinal: normoactive bowel sounds, soft, non-tender, non-distended (protuberant), other (Bains catheter) Integumentary: erythema (right BKA stump) Extremities: no cyanosis, no ischemia or petechiae, other (bilateral BKAs ) Neurologic: normal mental status, non-focal exam (grossly), pupils equal and round, motor strength normal and Psychiatric: affect normal, anxious CBC and BMP: 04/21/20 04:32 04/21/20 04:32 ABG, PT/INR, D-dimer: ABG ABG pH 7.486 (7.320-7.450) H 04/18/20 03:23 POC ABG pCO2 40.7 mmHg (32.0-48.0) 04/18/20 03:23 ABG pCO2 54.0 mm Hg 04/11/20 03:44 POC ABG pO2 56.4 mmHg (83-108) L 04/18/20 03:23 ABG pO2 73.4 mm Hg (80.0-90.0) L 04/11/20 03:44 POC ABG HCO3 30.0 04/18/20 03:23 ABG O2 Saturation 95.0 % (95.0-99.0) 04/11/20 03:44 PT/INR, D-dimer PT 13.8 Sec. (12.2-14.9) 04/06/20 14:30 INR 1.04 (0.87-1.13) 04/06/20 14:30 D-Dimer 1144.77 ng/mlDDU (0-234) H 04/18/20 06:48 Abnormal lab findings: Abnormal Labs 04/06/20 04/06/20 04/06/20 13:34 14:30 14:30 WBC 19.2 H RBC Hgb Hct RDW 17.8 H Plt Count Seg Neuts % (Manual) 90.0 H Lymphocytes % (Manual) 4.0 L Basophils % (Manual) Seg Neutrophils # Man 17.3 H Lymphocytes # (Manual) 0.8 L Monocytes # (Manual) Eosinophils # (Manual) Basophils # (Manual) D-Dimer ABG pH POC ABG pCO2 POC ABG pO2 ABG pO2 ABG HCO3 ABG Base Excess ABG Hemoglobin ABG Oxyhemoglobin ABG Sodium ABG Chloride ABG Glucose Oxyhemoglobin Sodium Potassium 5.2 H Chloride Carbon Dioxide 17 L BUN 53 H Creatinine 7.8 H Glucose 144 H POC Glucose Calcium Magnesium Ferritin Alkaline Phosphatase 738 H Lactate Dehydrogenase Total Creatine Kinase 23 L Troponin T 0.224 H* C-Reactive Protein Albumin 3.1 L Triglycerides 342 H Cholesterol 223 H HDL Cholesterol 35 L Arterial Blood Glucose Arterial Blood Ionized Calcium Urine WBC (Auto) > 182.0 H Salicylates Acetaminophen Hepatitis C Antibody 04/06/20 04/06/20 04/06/20 14:30 14:30 14:30 WBC RBC Hgb Hct RDW Plt Count Seg Neuts % (Manual) Lymphocytes % (Manual) Basophils % (Manual) Seg Neutrophils # Man Lymphocytes # (Manual) Monocytes # (Manual) Eosinophils # (Manual) Basophils # (Manual) D-Dimer ABG pH POC ABG pCO2 POC ABG pO2 ABG pO2 ABG HCO3 ABG Base Excess ABG Hemoglobin ABG Oxyhemoglobin ABG Sodium ABG Chloride ABG Glucose Oxyhemoglobin Sodium Potassium Chloride Carbon Dioxide BUN Creatinine Glucose POC Glucose Calcium Magnesium 2.50 H Ferritin Alkaline Phosphatase Lactate Dehydrogenase Total Creatine Kinase 24 L Troponin T C-Reactive Protein Albumin Triglycerides Cholesterol HDL Cholesterol Arterial Blood Glucose Arterial Blood Ionized Calcium Urine WBC (Auto) Salicylates < 0.3 L Acetaminophen 5.0 L Hepatitis C Antibody 04/06/20 04/06/20 04/07/20 14:39 20:00 00:48 WBC RBC Hgb Hct RDW Plt Count Seg Neuts % (Manual) Lymphocytes % (Manual) Basophils % (Manual) Seg Neutrophils # Man Lymphocytes # (Manual) Monocytes # (Manual) Eosinophils # (Manual) Basophils # (Manual) D-Dimer ABG pH 7.281 L 7.306 L POC ABG pCO2 POC ABG pO2 78.0 L ABG pO2 133.8 H ABG HCO3 18.3 L ABG Base Excess -7.8 L ABG Hemoglobin 10.8 L 10.8 L ABG Oxyhemoglobin ABG Sodium ABG Chloride 108.0 H ABG Glucose Oxyhemoglobin Sodium Potassium Chloride Carbon Dioxide BUN Creatinine Glucose POC Glucose 69 L Calcium Magnesium Ferritin Alkaline Phosphatase Lactate Dehydrogenase Total Creatine Kinase Troponin T C-Reactive Protein Albumin Triglycerides Cholesterol HDL Cholesterol Arterial Blood Glucose Arterial Blood Ionized Calcium Urine WBC (Auto) Salicylates Acetaminophen Hepatitis C Antibody 04/07/20 04/07/20 04/07/20 09:34 09:34 09:34 WBC RBC Hgb Hct RDW Plt Count Seg Neuts % (Manual) Lymphocytes % (Manual) Basophils % (Manual) Seg Neutrophils # Man Lymphocytes # (Manual) Monocytes # (Manual) Eosinophils # (Manual) Basophils # (Manual) D-Dimer 1063.66 H ABG pH POC ABG pCO2 POC ABG pO2 ABG pO2 ABG HCO3 ABG Base Excess ABG Hemoglobin ABG Oxyhemoglobin ABG Sodium ABG Chloride ABG Glucose Oxyhemoglobin Sodium Potassium Chloride Carbon Dioxide BUN Creatinine Glucose POC Glucose Calcium Magnesium Ferritin 743.0 H Alkaline Phosphatase Lactate Dehydrogenase 195 H Total Creatine Kinase Troponin T C-Reactive Protein 7.50 H Albumin Triglycerides Cholesterol HDL Cholesterol Arterial Blood Glucose Arterial Blood Ionized Calcium Urine WBC (Auto) Salicylates Acetaminophen Hepatitis C Antibody 04/07/20 04/07/20 04/07/20 10:01 16:38 23:51 WBC RBC Hgb Hct RDW Plt Count Seg Neuts % (Manual) Lymphocytes % (Manual) Basophils % (Manual) Seg Neutrophils # Man Lymphocytes # (Manual) Monocytes # (Manual) Eosinophils # (Manual) Basophils # (Manual) D-Dimer ABG pH POC ABG pCO2 POC ABG pO2 79.8 L ABG pO2 ABG HCO3 ABG Base Excess ABG Hemoglobin 10.3 L ABG Oxyhemoglobin ABG Sodium ABG Chloride 109.0 H ABG Glucose Oxyhemoglobin Sodium Potassium Chloride Carbon Dioxide BUN Creatinine Glucose POC Glucose 117 H Calcium Magnesium Ferritin Alkaline Phosphatase Lactate Dehydrogenase Total Creatine Kinase Troponin T C-Reactive Protein Albumin Triglycerides Cholesterol HDL Cholesterol Arterial Blood Glucose Arterial Blood Ionized Calcium 4.5 L Urine WBC (Auto) Salicylates Acetaminophen Hepatitis C Antibody Reactive A 04/08/20 04/08/20 04/08/20 04:58 12:48 17:03 WBC RBC Hgb Hct RDW Plt Count Seg Neuts % (Manual) Lymphocytes % (Manual) Basophils % (Manual) Seg Neutrophils # Man Lymphocytes # (Manual) Monocytes # (Manual) Eosinophils # (Manual) Basophils # (Manual) D-Dimer ABG pH POC ABG pCO2 POC ABG pO2 ABG pO2 ABG HCO3 ABG Base Excess ABG Hemoglobin ABG Oxyhemoglobin ABG Sodium ABG Chloride ABG Glucose Oxyhemoglobin Sodium Potassium Chloride Carbon Dioxide BUN Creatinine Glucose POC Glucose 129 H 155 H 201 H Calcium Magnesium Ferritin Alkaline Phosphatase Lactate Dehydrogenase Total Creatine Kinase Troponin T C-Reactive Protein Albumin Triglycerides Cholesterol HDL Cholesterol Arterial Blood Glucose Arterial Blood Ionized Calcium Urine WBC (Auto) Salicylates Acetaminophen Hepatitis C Antibody 04/08/20 04/08/20 04/09/20 23:49 Unknown 05:31 WBC RBC Hgb Hct RDW Plt Count Seg Neuts % (Manual) Lymphocytes % (Manual) Basophils % (Manual) Seg Neutrophils # Man Lymphocytes # (Manual) Monocytes # (Manual) Eosinophils # (Manual) Basophils # (Manual) D-Dimer ABG pH 7.349 L POC ABG pCO2 POC ABG pO2 ABG pO2 117.3 H ABG HCO3 ABG Base Excess ABG Hemoglobin 7.4 L ABG Oxyhemoglobin ABG Sodium ABG Chloride ABG Glucose Oxyhemoglobin Sodium Potassium Chloride Carbon Dioxide BUN Creatinine Glucose POC Glucose 178 H 248 H Calcium Magnesium Ferritin Alkaline Phosphatase Lactate Dehydrogenase Total Creatine Kinase Troponin T C-Reactive Protein Albumin Triglycerides Cholesterol HDL Cholesterol Arterial Blood Glucose Arterial Blood Ionized Calcium Urine WBC (Auto) Salicylates Acetaminophen Hepatitis C Antibody 04/09/20 04/09/20 04/09/20 11:39 17:35 Unknown WBC RBC Hgb Hct RDW Plt Count Seg Neuts % (Manual) Lymphocytes % (Manual) Basophils % (Manual) Seg Neutrophils # Man Lymphocytes # (Manual) Monocytes # (Manual) Eosinophils # (Manual) Basophils # (Manual) D-Dimer ABG pH POC ABG pCO2 51.6 H POC ABG pO2 ABG pO2 ABG HCO3 ABG Base Excess ABG Hemoglobin 11.4 L ABG Oxyhemoglobin ABG Sodium 130.1 L ABG Chloride ABG Glucose 249 H Oxyhemoglobin Sodium Potassium Chloride Carbon Dioxide BUN Creatinine Glucose POC Glucose 319 H 254 H Calcium Magnesium Ferritin Alkaline Phosphatase Lactate Dehydrogenase Total Creatine Kinase Troponin T C-Reactive Protein Albumin Triglycerides Cholesterol HDL Cholesterol Arterial Blood Glucose 249 H Arterial Blood Ionized Calcium 4.1 L Urine WBC (Auto) Salicylates Acetaminophen Hepatitis C Antibody 04/10/20 04/10/20 04/10/20 00:00 03:15 05:49 WBC RBC Hgb Hct RDW Plt Count Seg Neuts % (Manual) Lymphocytes % (Manual) Basophils % (Manual) Seg Neutrophils # Man Lymphocytes # (Manual) Monocytes # (Manual) Eosinophils # (Manual) Basophils # (Manual) D-Dimer ABG pH POC ABG pCO2 48.2 H POC ABG pO2 ABG pO2 ABG HCO3 ABG Base Excess ABG Hemoglobin 9.9 L ABG Oxyhemoglobin ABG Sodium 135.4 L ABG Chloride ABG Glucose 215 H Oxyhemoglobin Sodium Potassium Chloride Carbon Dioxide BUN Creatinine Glucose POC Glucose 194 H 221 H Calcium Magnesium Ferritin Alkaline Phosphatase Lactate Dehydrogenase Total Creatine Kinase Troponin T C-Reactive Protein Albumin Triglycerides Cholesterol HDL Cholesterol Arterial Blood Glucose 215 H Arterial Blood Ionized Calcium 4.5 L Urine WBC (Auto) Salicylates Acetaminophen Hepatitis C Antibody 04/10/20 04/10/20 04/10/20 08:18 08:18 12:22 WBC 28.9 H RBC 3.38 L Hgb 9.5 L Hct 30.1 L RDW 16.9 H Plt Count Seg Neuts % (Manual) 87.0 H Lymphocytes % (Manual) 9.0 L Basophils % (Manual) 2.0 H Seg Neutrophils # Man 25.1 H Lymphocytes # (Manual) Monocytes # (Manual) Eosinophils # (Manual) Basophils # (Manual) 0.6 H D-Dimer ABG pH POC ABG pCO2 POC ABG pO2 ABG pO2 ABG HCO3 ABG Base Excess ABG Hemoglobin ABG Oxyhemoglobin ABG Sodium ABG Chloride ABG Glucose Oxyhemoglobin Sodium 134 L Potassium 3.5 L D Chloride 94.9 L Carbon Dioxide BUN 38 H Creatinine 5.5 H Glucose 230 H POC Glucose 218 H Calcium Magnesium Ferritin Alkaline Phosphatase Lactate Dehydrogenase Total Creatine Kinase Troponin T C-Reactive Protein Albumin Triglycerides Cholesterol HDL Cholesterol Arterial Blood Glucose Arterial Blood Ionized Calcium Urine WBC (Auto) Salicylates Acetaminophen Hepatitis C Antibody 04/10/20 04/10/20 04/10/20 17:27 18:08 23:29 WBC RBC Hgb Hct RDW Plt Count Seg Neuts % (Manual) Lymphocytes % (Manual) Basophils % (Manual) Seg Neutrophils # Man Lymphocytes # (Manual) Monocytes # (Manual) Eosinophils # (Manual) Basophils # (Manual) D-Dimer ABG pH POC ABG pCO2 POC ABG pO2 ABG pO2 ABG HCO3 ABG Base Excess ABG Hemoglobin ABG Oxyhemoglobin ABG Sodium ABG Chloride ABG Glucose Oxyhemoglobin Sodium Potassium Chloride Carbon Dioxide BUN Creatinine Glucose POC Glucose 218 H 223 H 166 H Calcium Magnesium Ferritin Alkaline Phosphatase Lactate Dehydrogenase Total Creatine Kinase Troponin T C-Reactive Protein Albumin Triglycerides Cholesterol HDL Cholesterol Arterial Blood Glucose Arterial Blood Ionized Calcium Urine WBC (Auto) Salicylates Acetaminophen Hepatitis C Antibody 04/11/20 04/11/20 04/11/20 03:44 05:28 07:39 WBC 26.9 H RBC 3.32 L Hgb 9.4 L Hct 29.5 L RDW 17.2 H Plt Count Seg Neuts % (Manual) 83.0 H Lymphocytes % (Manual) 10.0 L Basophils % (Manual) Seg Neutrophils # Man 22.3 H Lymphocytes # (Manual) Monocytes # (Manual) 1.1 H Eosinophils # (Manual) 0.5 H Basophils # (Manual) D-Dimer ABG pH 7.313 L POC ABG pCO2 POC ABG pO2 ABG pO2 73.4 L ABG HCO3 26.7 H ABG Base Excess ABG Hemoglobin 11.0 L ABG Oxyhemoglobin ABG Sodium ABG Chloride ABG Glucose Oxyhemoglobin 92.8 L Sodium Potassium Chloride Carbon Dioxide BUN Creatinine Glucose POC Glucose 164 H Calcium Magnesium Ferritin Alkaline Phosphatase Lactate Dehydrogenase Total Creatine Kinase Troponin T C-Reactive Protein Albumin Triglycerides Cholesterol HDL Cholesterol Arterial Blood Glucose Arterial Blood Ionized Calcium Urine WBC (Auto) Salicylates Acetaminophen Hepatitis C Antibody 04/11/20 04/11/20 04/11/20 07:39 12:25 19:02 WBC RBC Hgb Hct RDW Plt Count Seg Neuts % (Manual) Lymphocytes % (Manual) Basophils % (Manual) Seg Neutrophils # Man Lymphocytes # (Manual) Monocytes # (Manual) Eosinophils # (Manual) Basophils # (Manual) D-Dimer ABG pH POC ABG pCO2 POC ABG pO2 ABG pO2 ABG HCO3 ABG Base Excess ABG Hemoglobin ABG Oxyhemoglobin ABG Sodium ABG Chloride ABG Glucose Oxyhemoglobin Sodium Potassium Chloride Carbon Dioxide BUN 48 H Creatinine 6.1 H Glucose 122 H POC Glucose 175 H 175 H Calcium 8.3 L Magnesium Ferritin Alkaline Phosphatase Lactate Dehydrogenase Total Creatine Kinase Troponin T C-Reactive Protein Albumin Triglycerides Cholesterol HDL Cholesterol Arterial Blood Glucose Arterial Blood Ionized Calcium Urine WBC (Auto) Salicylates Acetaminophen Hepatitis C Antibody 04/12/20 04/12/20 04/12/20 00:02 05:51 08:14 WBC 28.0 H RBC 3.29 L Hgb 9.5 L Hct 29.1 L RDW 16.9 H Plt Count Seg Neuts % (Manual) 88.0 H Lymphocytes % (Manual) 7.0 L Basophils % (Manual) Seg Neutrophils # Man 24.6 H Lymphocytes # (Manual) Monocytes # (Manual) Eosinophils # (Manual) 0.6 H Basophils # (Manual) D-Dimer ABG pH POC ABG pCO2 POC ABG pO2 ABG pO2 ABG HCO3 ABG Base Excess ABG Hemoglobin ABG Oxyhemoglobin ABG Sodium ABG Chloride ABG Glucose Oxyhemoglobin Sodium Potassium Chloride Carbon Dioxide BUN Creatinine Glucose POC Glucose 146 H 151 H Calcium Magnesium Ferritin Alkaline Phosphatase Lactate Dehydrogenase Total Creatine Kinase Troponin T C-Reactive Protein Albumin Triglycerides Cholesterol HDL Cholesterol Arterial Blood Glucose Arterial Blood Ionized Calcium Urine WBC (Auto) Salicylates Acetaminophen Hepatitis C Antibody 04/12/20 04/12/20 04/12/20 08:14 12:21 17:26 WBC RBC Hgb Hct RDW Plt Count Seg Neuts % (Manual) Lymphocytes % (Manual) Basophils % (Manual) Seg Neutrophils # Man Lymphocytes # (Manual) Monocytes # (Manual) Eosinophils # (Manual) Basophils # (Manual) D-Dimer ABG pH POC ABG pCO2 POC ABG pO2 ABG pO2 ABG HCO3 ABG Base Excess ABG Hemoglobin ABG Oxyhemoglobin ABG Sodium ABG Chloride ABG Glucose Oxyhemoglobin Sodium Potassium 3.3 L Chloride Carbon Dioxide BUN 32 H Creatinine 4.3 H Glucose 188 H POC Glucose 196 H 235 H Calcium Magnesium Ferritin Alkaline Phosphatase Lactate Dehydrogenase Total Creatine Kinase Troponin T C-Reactive Protein Albumin Triglycerides Cholesterol HDL Cholesterol Arterial Blood Glucose Arterial Blood Ionized Calcium Urine WBC (Auto) Salicylates Acetaminophen Hepatitis C Antibody 04/12/20 04/13/20 04/13/20 23:34 03:40 05:33 WBC RBC Hgb Hct RDW Plt Count Seg Neuts % (Manual) Lymphocytes % (Manual) Basophils % (Manual) Seg Neutrophils # Man Lymphocytes # (Manual) Monocytes # (Manual) Eosinophils # (Manual) Basophils # (Manual) D-Dimer ABG pH POC ABG pCO2 POC ABG pO2 ABG pO2 ABG HCO3 ABG Base Excess ABG Hemoglobin 9.4 L ABG Oxyhemoglobin ABG Sodium 133.6 L ABG Chloride ABG Glucose 172 H Oxyhemoglobin Sodium Potassium Chloride Carbon Dioxide BUN Creatinine Glucose POC Glucose 171 H 167 H Calcium Magnesium Ferritin Alkaline Phosphatase Lactate Dehydrogenase Total Creatine Kinase Troponin T C-Reactive Protein Albumin Triglycerides Cholesterol HDL Cholesterol Arterial Blood Glucose 172 H Arterial Blood Ionized Calcium Urine WBC (Auto) Salicylates Acetaminophen Hepatitis C Antibody 04/13/20 04/13/20 04/13/20 07:49 09:09 11:34 WBC RBC Hgb Hct RDW Plt Count Seg Neuts % (Manual) Lymphocytes % (Manual) Basophils % (Manual) Seg Neutrophils # Man Lymphocytes # (Manual) Monocytes # (Manual) Eosinophils # (Manual) Basophils # (Manual) D-Dimer ABG pH POC ABG pCO2 POC ABG pO2 ABG pO2 ABG HCO3 ABG Base Excess ABG Hemoglobin ABG Oxyhemoglobin ABG Sodium ABG Chloride ABG Glucose Oxyhemoglobin Sodium Potassium Chloride Carbon Dioxide 31 H BUN 44 H 43 H Creatinine 5.0 H 4.9 H Glucose 164 H 164 H POC Glucose 155 H Calcium Magnesium Ferritin Alkaline Phosphatase Lactate Dehydrogenase Total Creatine Kinase Troponin T C-Reactive Protein Albumin Triglycerides Cholesterol HDL Cholesterol Arterial Blood Glucose Arterial Blood Ionized Calcium Urine WBC (Auto) Salicylates Acetaminophen Hepatitis C Antibody 04/13/20 04/13/20 04/14/20 17:38 23:40 04:35 WBC RBC Hgb Hct RDW Plt Count Seg Neuts % (Manual) Lymphocytes % (Manual) Basophils % (Manual) Seg Neutrophils # Man Lymphocytes # (Manual) Monocytes # (Manual) Eosinophils # (Manual) Basophils # (Manual) D-Dimer ABG pH POC ABG pCO2 POC ABG pO2 ABG pO2 ABG HCO3 ABG Base Excess ABG Hemoglobin ABG Oxyhemoglobin ABG Sodium ABG Chloride ABG Glucose Oxyhemoglobin Sodium Potassium Chloride Carbon Dioxide BUN Creatinine Glucose POC Glucose 180 H 130 H 121 H Calcium Magnesium Ferritin Alkaline Phosphatase Lactate Dehydrogenase Total Creatine Kinase Troponin T C-Reactive Protein Albumin Triglycerides Cholesterol HDL Cholesterol Arterial Blood Glucose Arterial Blood Ionized Calcium Urine WBC (Auto) Salicylates Acetaminophen Hepatitis C Antibody 04/14/20 04/14/20 04/15/20 12:17 17:06 00:11 WBC RBC Hgb Hct RDW Plt Count Seg Neuts % (Manual) Lymphocytes % (Manual) Basophils % (Manual) Seg Neutrophils # Man Lymphocytes # (Manual) Monocytes # (Manual) Eosinophils # (Manual) Basophils # (Manual) D-Dimer ABG pH POC ABG pCO2 POC ABG pO2 ABG pO2 ABG HCO3 ABG Base Excess ABG Hemoglobin ABG Oxyhemoglobin ABG Sodium ABG Chloride ABG Glucose Oxyhemoglobin Sodium Potassium Chloride Carbon Dioxide BUN Creatinine Glucose POC Glucose 170 H 177 H 156 H Calcium Magnesium Ferritin Alkaline Phosphatase Lactate Dehydrogenase Total Creatine Kinase Troponin T C-Reactive Protein Albumin Triglycerides Cholesterol HDL Cholesterol Arterial Blood Glucose Arterial Blood Ionized Calcium Urine WBC (Auto) Salicylates Acetaminophen Hepatitis C Antibody 04/15/20 04/15/20 04/15/20 05:09 11:45 17:12 WBC RBC Hgb Hct RDW Plt Count Seg Neuts % (Manual) Lymphocytes % (Manual) Basophils % (Manual) Seg Neutrophils # Man Lymphocytes # (Manual) Monocytes # (Manual) Eosinophils # (Manual) Basophils # (Manual) D-Dimer ABG pH POC ABG pCO2 POC ABG pO2 ABG pO2 ABG HCO3 ABG Base Excess ABG Hemoglobin ABG Oxyhemoglobin ABG Sodium ABG Chloride ABG Glucose Oxyhemoglobin Sodium Potassium Chloride Carbon Dioxide BUN Creatinine Glucose POC Glucose 141 H 154 H 177 H Calcium Magnesium Ferritin Alkaline Phosphatase Lactate Dehydrogenase Total Creatine Kinase Troponin T C-Reactive Protein Albumin Triglycerides Cholesterol HDL Cholesterol Arterial Blood Glucose Arterial Blood Ionized Calcium Urine WBC (Auto) Salicylates Acetaminophen Hepatitis C Antibody 04/16/20 04/16/20 04/16/20 05:11 12:13 17:31 WBC RBC Hgb Hct RDW Plt Count Seg Neuts % (Manual) Lymphocytes % (Manual) Basophils % (Manual) Seg Neutrophils # Man Lymphocytes # (Manual) Monocytes # (Manual) Eosinophils # (Manual) Basophils # (Manual) D-Dimer ABG pH POC ABG pCO2 POC ABG pO2 ABG pO2 ABG HCO3 ABG Base Excess ABG Hemoglobin ABG Oxyhemoglobin ABG Sodium ABG Chloride ABG Glucose Oxyhemoglobin Sodium Potassium Chloride Carbon Dioxide BUN Creatinine Glucose POC Glucose 115 H 122 H 188 H Calcium Magnesium Ferritin Alkaline Phosphatase Lactate Dehydrogenase Total Creatine Kinase Troponin T C-Reactive Protein Albumin Triglycerides Cholesterol HDL Cholesterol Arterial Blood Glucose Arterial Blood Ionized Calcium Urine WBC (Auto) Salicylates Acetaminophen Hepatitis C Antibody 04/16/20 04/17/20 04/17/20 23:47 05:44 05:44 WBC 19.5 H RBC 3.26 L Hgb 9.3 L Hct 28.7 L RDW 15.9 H Plt Count 604 H Seg Neuts % (Manual) 81.0 H Lymphocytes % (Manual) 11.0 L Basophils % (Manual) Seg Neutrophils # Man 15.8 H Lymphocytes # (Manual) Monocytes # (Manual) Eosinophils # (Manual) 0.6 H Basophils # (Manual) 0.2 H D-Dimer ABG pH POC ABG pCO2 POC ABG pO2 ABG pO2 ABG HCO3 ABG Base Excess ABG Hemoglobin ABG Oxyhemoglobin ABG Sodium ABG Chloride ABG Glucose Oxyhemoglobin Sodium Potassium Chloride Carbon Dioxide BUN 28 H Creatinine 3.3 H Glucose 130 H POC Glucose 156 H Calcium Magnesium Ferritin Alkaline Phosphatase Lactate Dehydrogenase Total Creatine Kinase Troponin T C-Reactive Protein Albumin Triglycerides Cholesterol HDL Cholesterol Arterial Blood Glucose Arterial Blood Ionized Calcium Urine WBC (Auto) Salicylates Acetaminophen Hepatitis C Antibody 04/17/20 04/17/20 04/17/20 12:57 17:18 22:04 WBC RBC Hgb Hct RDW Plt Count Seg Neuts % (Manual) Lymphocytes % (Manual) Basophils % (Manual) Seg Neutrophils # Man Lymphocytes # (Manual) Monocytes # (Manual) Eosinophils # (Manual) Basophils # (Manual) D-Dimer ABG pH 7.553 H POC ABG pCO2 POC ABG pO2 206.5 H ABG pO2 ABG HCO3 ABG Base Excess ABG Hemoglobin 11.2 L ABG Oxyhemoglobin 99.1 H ABG Sodium 133.0 L ABG Chloride ABG Glucose 183 H Oxyhemoglobin Sodium Potassium Chloride Carbon Dioxide BUN Creatinine Glucose POC Glucose 146 H 156 H Calcium Magnesium Ferritin Alkaline Phosphatase Lactate Dehydrogenase Total Creatine Kinase Troponin T C-Reactive Protein Albumin Triglycerides Cholesterol HDL Cholesterol Arterial Blood Glucose 183 H Arterial Blood Ionized Calcium 4.4 L Urine WBC (Auto) Salicylates Acetaminophen Hepatitis C Antibody 04/17/20 04/18/20 04/18/20 23:29 03:23 04:43 WBC RBC Hgb Hct RDW Plt Count Seg Neuts % (Manual) Lymphocytes % (Manual) Basophils % (Manual) Seg Neutrophils # Man Lymphocytes # (Manual) Monocytes # (Manual) Eosinophils # (Manual) Basophils # (Manual) D-Dimer ABG pH 7.486 H POC ABG pCO2 POC ABG pO2 56.4 L ABG pO2 ABG HCO3 ABG Base Excess ABG Hemoglobin 11.2 L ABG Oxyhemoglobin 92.0 L ABG Sodium 135.1 L ABG Chloride ABG Glucose 138 H Oxyhemoglobin Sodium Potassium Chloride Carbon Dioxide BUN Creatinine Glucose POC Glucose 125 H 119 H Calcium Magnesium Ferritin Alkaline Phosphatase Lactate Dehydrogenase Total Creatine Kinase Troponin T C-Reactive Protein Albumin Triglycerides Cholesterol HDL Cholesterol Arterial Blood Glucose 138 H Arterial Blood Ionized Calcium 4.5 L Urine WBC (Auto) Salicylates Acetaminophen Hepatitis C Antibody 04/18/20 04/18/20 04/18/20 06:48 06:48 06:48 WBC 38.7 H RBC Hgb Hct RDW 16.3 H Plt Count 597 H Seg Neuts % (Manual) Lymphocytes % (Manual) Basophils % (Manual) Seg Neutrophils # Man Lymphocytes # (Manual) Monocytes # (Manual) Eosinophils # (Manual) Basophils # (Manual) D-Dimer 1144.77 H ABG pH POC ABG pCO2 POC ABG pO2 ABG pO2 ABG HCO3 ABG Base Excess ABG Hemoglobin ABG Oxyhemoglobin ABG Sodium ABG Chloride ABG Glucose Oxyhemoglobin Sodium 134 L Potassium Chloride 96.4 L Carbon Dioxide BUN 19 H Creatinine 2.6 H Glucose 104 H POC Glucose Calcium Magnesium Ferritin Alkaline Phosphatase 413 H Lactate Dehydrogenase Total Creatine Kinase Troponin T C-Reactive Protein Albumin 2.8 L Triglycerides Cholesterol HDL Cholesterol Arterial Blood Glucose Arterial Blood Ionized Calcium Urine WBC (Auto) Salicylates Acetaminophen Hepatitis C Antibody 04/18/20 04/18/20 04/19/20 11:33 17:18 06:24 WBC 28.9 H RBC 3.33 L Hgb 9.5 L Hct 29.5 L RDW 16.0 H Plt Count 577 H Seg Neuts % (Manual) Lymphocytes % (Manual) Basophils % (Manual) Seg Neutrophils # Man Lymphocytes # (Manual) Monocytes # (Manual) Eosinophils # (Manual) Basophils # (Manual) D-Dimer ABG pH POC ABG pCO2 POC ABG pO2 ABG pO2 ABG HCO3 ABG Base Excess ABG Hemoglobin ABG Oxyhemoglobin ABG Sodium ABG Chloride ABG Glucose Oxyhemoglobin Sodium Potassium Chloride Carbon Dioxide BUN Creatinine Glucose POC Glucose 195 H 162 H Calcium Magnesium Ferritin Alkaline Phosphatase Lactate Dehydrogenase Total Creatine Kinase Troponin T C-Reactive Protein Albumin Triglycerides Cholesterol HDL Cholesterol Arterial Blood Glucose Arterial Blood Ionized Calcium Urine WBC (Auto) Salicylates Acetaminophen Hepatitis C Antibody 04/19/20 04/19/20 04/20/20 06:24 17:28 07:50 WBC 22.7 H RBC 3.43 L Hgb 9.6 L Hct RDW 15.9 H Plt Count 530 H Seg Neuts % (Manual) Lymphocytes % (Manual) Basophils % (Manual) Seg Neutrophils # Man Lymphocytes # (Manual) Monocytes # (Manual) Eosinophils # (Manual) Basophils # (Manual) D-Dimer ABG pH POC ABG pCO2 POC ABG pO2 ABG pO2 ABG HCO3 ABG Base Excess ABG Hemoglobin ABG Oxyhemoglobin ABG Sodium ABG Chloride ABG Glucose Oxyhemoglobin Sodium Potassium Chloride Carbon Dioxide 31 H D BUN 27 H Creatinine 3.8 H Glucose POC Glucose 114 H Calcium Magnesium Ferritin Alkaline Phosphatase 343 H Lactate Dehydrogenase Total Creatine Kinase Troponin T C-Reactive Protein Albumin 2.8 L Triglycerides Cholesterol HDL Cholesterol Arterial Blood Glucose Arterial Blood Ionized Calcium Urine WBC (Auto) Salicylates Acetaminophen Hepatitis C Antibody 04/20/20 04/21/20 04/21/20 07:50 00:42 04:32 WBC 16.4 H RBC 3.37 L Hgb 9.7 L Hct 30.0 L RDW 15.6 H Plt Count 597 H Seg Neuts % (Manual) Lymphocytes % (Manual) Basophils % (Manual) Seg Neutrophils # Man Lymphocytes # (Manual) Monocytes # (Manual) Eosinophils # (Manual) Basophils # (Manual) D-Dimer ABG pH POC ABG pCO2 POC ABG pO2 ABG pO2 ABG HCO3 ABG Base Excess ABG Hemoglobin ABG Oxyhemoglobin ABG Sodium ABG Chloride ABG Glucose Oxyhemoglobin Sodium Potassium Chloride Carbon Dioxide 31 H BUN Creatinine 2.8 H Glucose POC Glucose 119 H Calcium Magnesium Ferritin Alkaline Phosphatase Lactate Dehydrogenase Total Creatine Kinase Troponin T C-Reactive Protein Albumin Triglycerides Cholesterol HDL Cholesterol Arterial Blood Glucose Arterial Blood Ionized Calcium Urine WBC (Auto) Salicylates Acetaminophen Hepatitis C Antibody 04/21/20 04/21/20 04/21/20 04:32 16:30 17:43 WBC RBC Hgb Hct RDW Plt Count Seg Neuts % (Manual) Lymphocytes % (Manual) Basophils % (Manual) Seg Neutrophils # Man Lymphocytes # (Manual) Monocytes # (Manual) Eosinophils # (Manual) Basophils # (Manual) D-Dimer ABG pH POC ABG pCO2 POC ABG pO2 ABG pO2 ABG HCO3 ABG Base Excess ABG Hemoglobin ABG Oxyhemoglobin ABG Sodium ABG Chloride ABG Glucose Oxyhemoglobin Sodium Potassium Chloride Carbon Dioxide BUN 25 H Creatinine 3.9 H Glucose 106 H POC Glucose 149 H 171 H Calcium Magnesium Ferritin Alkaline Phosphatase 324 H Lactate Dehydrogenase Total Creatine Kinase Troponin T C-Reactive Protein Albumin 3.0 L Triglycerides Cholesterol HDL Cholesterol Arterial Blood Glucose Arterial Blood Ionized Calcium Urine WBC (Auto) Salicylates Acetaminophen Hepatitis C Antibody Chest x-ray: report reviewed, image reviewed Additional Studies: CHEST 1 VIEW 04/17/2020 8:40 PM INDICATION / CLINICAL INFORMATION: ett placement. COMPARISON: 04/13/2020. FINDINGS: SUPPORT DEVICES: The endotracheal tube tip projects approximately 3 cm superior to the robbi. Additional support lines and tubes are unchanged. HEART / MEDIASTINUM: Stable. LUNGS / PLEURA: Stable bibasilar opacities. No pneumothorax. ADDITIONAL FINDINGS: No significant additional findings. IMPRESSION: 1. Endotracheal tube in expected position. Allied health notes reviewed: RT
[2020-04-22] MEDS: HYDROmorphone 1 MG/1 ML INJ IV PRN ×4 (01:13→23:51)
[2020-04-22] MEDS: INSULIN REGULAR, HUMAN 100 UNIT/ML 3ML VIAL SUB-Q SCH ×4 (01:14→19:29)
[2020-04-22 04:51] LABS: Hematocrit 32.9 % (30.3-42.9); Hemoglobin 10.9 gm/dl (10.1-14.3); Mean Corpuscular HGB Conc 33 % (30-34); Mean Corpuscular Volume 89 fl (79-97); Platelet Count 629 K/mm3 (140-440); Red Blood Count 3.71 M/mm3 (3.65-5.03); Red Cell Distribution Width 15.1 % (13.2-15.2)
[2020-04-22 05:10] LABS: Calcium 9.1 mg/dL (8.4-10.2)
[2020-04-22] MEDS: HEPARIN 5,000 UNIT/1 ML VIAL SUB-Q SCH ×2 (09:53→23:39)
[2020-04-22] MEDS: INSULIN GLARGINE 100 UNITS/ML SUB-Q SCH (10:14)
[2020-04-22] MEDS: carvediloL 6.25 MG TAB PO SCH ×2 (10:14→23:39)
[2020-04-22] MEDS: FAMOTIDINE 20 MG TAB PO SCH (10:14)
[2020-04-22] MEDS: D5W/0.9% NACL 1,000 ML IV SCH (10:21)
--- NOTE | 2020-04-22 11:07 | Progress Note ---
Assessment and Plan Assessment and plan: 49 years old female with history of asthma, hypertension, end-stage renal disease on hemodialysis, diabetes mellitus, bipolar disorder, morbid obesity, CVA, resident of a intermediate, admitted on 04/06/2020 secondary to be found Unresponsiveness after hemodialysis. Patient is unable to provide history, currently intubated. Patient received hemodialysis and after completion she became unresponsive. Upon EMS arrival, blood pressure was 90/60, HR 88, temperature 97.2. Per records, patient was not complaining of any symptoms. On arrival, temperature 94.1, HR 66, RR 18, O2 sat 87%, BP 131/111. Initial WBC 19.2. Urinalysis showed more than 182 WBCs and moderate leukocyte esterase. Chest x-ray shows bibasilar infiltrates. Patient was intubated in the emergency room to protect airway. Bains catheter was placed yielding purulent urine. Severe sepsis. Present on admission with hypothermia, leukocytosis, altered mental status, likely due to bilateral pneumonia. F/U Blood Cx. Cont. Abx pre ID Bilateral pneumonia. Aspiration pneumonia/HAP illness induced Gastroparesis: Stable Severe UTI. Bains catheter with purulent urine. Acute hypoxemic and hypercapnic respiratory failure. Intubated for airway protection, O2 sats down to 87%. Acute toxic metabolic encephalopathy. Etiology secondary to sepsis Bibasilar atelectasis, End-stage renal disease on hemodialysis Anemia of chronic renal disease vancomycin allergy ? Causing hives. PER ID documentation at other hosptial does not show vanc allergy Chronic leukocytosis, appears so based on review of records from here and [facility] in the past were reviewed. Chronic Hepatitis C: treatment status unknown. F/U HCV RNA PCR. Extensive Candidal intertrigo in groin and vagina. Cont. Fluconazole Intractable nausea with vomiting. 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 Patient remains intubated on mechanical ventilation with AC mode ventilation rate 12, tidal volume 450, FiO2 40% and a PEEP of 6. Continue weaning per protocols. Patient with ESRD and continue TTS schedule per nephrology. Patient does have a history of COVID-19 infection(01/07/20) but negative testing April 07. Follow-up blood/urine/sputum culture. Continue antibiotics per ID recommendations. 04/09/2020. Patient not tolerating PSV 12/6 with FiO2 of 30%. Continue hemod ialysis per nephrology recommendations. Continue IV antibiotics per ID recommendations. Blood cultures no growth to date. Respiratory therapy reports patient with accelerated hypertension and apneic episodes on PSV ventilation. Await pulmonary recommendations. 04/10/2020. Patient remains on mechanical ventilation AC mode rate 12, tidal volume 450, FiO2 30% and a PEEP of 6. Continue PSV trials per protocols. Continue hemodialysis per nephrology recommendations. Continue anti-infectives of fluconazole and cefepime. Follow-up blood/urine/sputum culture. ID, pulmonary and nephrology following. 04/11/2020; patient remains on mechanical ventilation AC mode rate 12, tidal volume 450, FiO2 of 30 and PEEP of 6. Continue PSV trials per protocols. continue hemodialysis per nephrology. ID changed antibiotics to meropenem. Blood culture grew staph epidermidis likey contaminant. 04/12/2020; patient is intubated, patient open eyes spontaneously. Neurology consulted and continue on replacement treatment. EEG is pending. Recommend MRI. Patient is on meropenem per ID recommendation. Pulmonary is following. Patient is on spontaneous breathing trial 04/13/2020; patient is intubated. Patient's blood pressure was high yesterday, amlodipine and hydralazine was added. Overnight his blood pressure was low and will also BP medications. We will continue to follow. 04/14/2020; patient is intubated and blood pressure is on the low side of normal. Patient is on meropenem 5/5. 04/15/2020; patient is intubated, on spontaneous breathing trial. Pulmonary is following. neurology recommend MRI. 04/16/2020; patient is intubated, on spontaneous breathing trial. Pulmonary is following. Neurology recommend MRI once stable. 04/17: Patient showing some clinical improvement. MRI still pending. Continues on restraints weaning trial today. Antibiotics per ID continue aspiration precautions although management by critical care physician. Noted elevated D- dimer level with trend. See ultrasound of the lower extremity was negative for DVT. Prior hospitalization showed elevated D-dimer also. Will discuss with nephrology if patient needs CTA to see if this can be managed with dialysis. This will be done if patient is unable to wean from the vent due to hypoxia. 04/18: Patient required re-intubation last night due to self extubation and decompensation with hypoxia. CXR post extubation showed tube in expected position. Patient also noted to have large projectile vomiting. - Obtain KUB - start Zofran - Hold tube feeds - May benefit from GI eval if vomiting continues. - She is currently being treated for Aspiration Pneumonia with bactermia and Acute cystitis 04/19: Now extubated, Continue supportive care and aspiration precautions. Patient complaining of chronic pain, will resume home dose pain meds and avoid oversedation. No new seizure noted. still awaiting MRI brain. GI input noted: illness induced gastropoaresis, otherwise KUB and LFT normal, will start low fat fiber diet once patient able to tolerate PO. Continue to monitor WBC, increased again today. 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 Unless indicated by Intesivist will like to monitor patient in the ICU for additional 24 hrs before downgrading. 04/20: CONTINUE Aspiration precautions, started on D5NS for low Blood glucose. Speech re-eval today. PAIN CONTROL 04/21: Continue aspiration precautions. Blood sugar stable continue to monitor WBC count. Will reassess with speech evaluation continue restraints due to aggressive behavior towards nurses and pulling on shelving. Monitor mental status. 04/22: patient complains of nasuea, will start on Reglan IV prn. CONTINUE supportive care. History Interval history: Patient seen and examined, continues to have altered sensorium intermittently complains of nausea, Nursing staff states that she threw something on them yesterday. Hospitalist Physical - Physical exam Narrative exam: VITAL SIGNS: Reviewed. GENERAL: The patient appears normally developed, lethargic with Nasal cannula, vital signs as documented. HEAD: No signs of head trauma. EYES: Pupils are equal. Extraocular motions intact. EARS: Hearing grossly intact. MOUTH: Oropharynx is normal. face mask on. NECK: No adenopathy, no JVD. CHEST: Chest with transmitted breath sounds bilaterally. No wheezes, rales, or rhonchi. CARDIAC: Regular rate and rhythm. S1 and S2, without murmurs, gallops, or rubs. VASCULAR: No Edema. Peripheral pulses normal and equal in all extremities. ABDOMEN: Soft, non tender and non distended. No rebound or guarding, and no masses palpated. Bowel Sounds normal. MUSCULOSKELETAL: Bilateral BKA NEUROLOGIC EXAM: Awake, lethargic ORIENTED to person place and time. Follows some commands. PSYCHIATRIC: Mood normal. SKIN: detail exam as documented in skin assessment - Constitutional Vitals: Temp Pulse Resp BP Pulse Ox 98.9 F 87 20 173/62 95 04/22/20 08:31 04/22/20 10:25 04/22/20 08:31 04/22/20 10:25 04/22/20 08:31 General appearance: Present: severe distress, other (Intubated on mechanical ventilation) HEART Score - HEART Score Troponin: Troponin T 0.224 ng/mL (0.00-0.029) H* 04/06/20 14:30 Results - Labs CBC & Chem 7: 04/22/20 03:50 04/22/20 03:50 Labs: Laboratory Last Values WBC 15.5 K/mm3 (4.5-11.0) H 04/22/20 03:50 RBC 3.71 M/mm3 (3.65-5.03) 04/22/20 03:50 Hgb 10.9 gm/dl (10.1-14.3) 04/22/20 03:50 Hct 32.9 % (30.3-42.9) 04/22/20 03:50 MCV 89 fl (79-97) 04/22/20 03:50 MCH 29 pg (28-32) 04/22/20 03:50 MCHC 33 % (30-34) 04/22/20 03:50 RDW 15.1 % (13.2-15.2) 04/22/20 03:50 Plt Count 629 K/mm3 (140-440) H 04/22/20 03:50 Add Manual Diff Complete 04/17/20 05:44 Total Counted 100 04/17/20 05:44 Seg Neuts % (Manual) 81.0 % (40.0-70.0) H 04/17/20 05:44 Band Neutrophils % 0 % 04/17/20 05:44 Lymphocytes % (Manual) 11.0 % (13.4-35.0) L 04/17/20 05:44 Reactive Lymphs % (Man) 0 % 04/17/20 05:44 Monocytes % (Manual) 3.0 % (0.0-7.3) 04/17/20 05:44 Eosinophils % (Manual) 3.0 % (0.0-4.3) 04/17/20 05:44 Basophils % (Manual) 1.0 % (0.0-1.8) 04/17/20 05:44 Metamyelocytes % 0 % 04/17/20 05:44 Myelocytes % 1.0 % 04/17/20 05:44 Promyelocytes % 0 % 04/17/20 05:44 Blast Cells % 0 % 04/17/20 05:44 Nucleated RBC % Not Reportable 04/17/20 05:44 Seg Neutrophils # Man 15.8 K/mm3 (1.8-7.7) H 04/17/20 05:44 Band Neutrophils # 0.0 K/mm3 04/17/20 05:44 Lymphocytes # (Manual) 2.1 K/mm3 (1.2-5.4) 04/17/20 05:44 Abs React Lymphs (Man) 0.0 K/mm3 04/17/20 05:44 Monocytes # (Manual) 0.6 K/mm3 (0.0-0.8) 04/17/20 05:44 Eosinophils # (Manual) 0.6 K/mm3 (0.0-0.4) H 04/17/20 05:44 Basophils # (Manual) 0.2 K/mm3 (0.0-0.1) H 04/17/20 05:44 Metamyelocytes # 0.0 K/mm3 04/17/20 05:44 Myelocytes # 0.2 K/mm3 04/17/20 05:44 Promyelocytes # 0.0 K/mm3 04/17/20 05:44 Blast Cells # 0.0 K/mm3 04/17/20 05:44 WBC Morphology Not Reportable 04/17/20 05:44 Hypersegmented Neuts Not Reportable 04/17/20 05:44 Hyposegmented Neuts Not Reportable 04/17/20 05:44 Hypogranular Neuts Not Reportable 04/17/20 05:44 Smudge Cells Not Reportable 04/17/20 05:44 Toxic Granulation Not Reportable 04/17/20 05:44 Toxic Vacuolation Not Reportable 04/17/20 05:44 Dohle Bodies Not Reportable 04/17/20 05:44 Pelger-Huet Anomaly Not Reportable 04/17/20 05:44 Stephanie Rods Not Reportable 04/17/20 05:44 Platelet Estimate Consistent w auto 04/17/20 05:44 Clumped Platelets Not Reportable 04/17/20 05:44 Plt Clumps, EDTA Not Reportable 04/17/20 05:44 Large Platelets Not Reportable 04/17/20 05:44 Giant Platelets Not Reportable 04/17/20 05:44 Platelet Satelliting Not Reportable 04/17/20 05:44 Plt Morphology Comment Not Reportable 04/17/20 05:44 RBC Morphology Normal 04/17/20 05:44 Dimorphic RBCs Not Reportable 04/17/20 05:44 Polychromasia Not Reportable 04/17/20 05:44 Hypochromasia Not Reportable 04/17/20 05:44 Poikilocytosis Not Reportable 04/17/20 05:44 Anisocytosis Not Reportable 04/17/20 05:44 Microcytosis Not Reportable 04/17/20 05:44 Macrocytosis Not Reportable 04/17/20 05:44 Spherocytes Few 04/17/20 05:44 Pappenheimer Bodies Not Reportable 04/17/20 05:44 Sickle Cells Not Reportable 04/17/20 05:44 Target Cells Not Reportable 04/17/20 05:44 Tear Drop Cells Not Reportable 04/17/20 05:44 Ovalocytes Not Reportable 04/17/20 05:44 Stomatocytes Few 04/12/20 08:14 Helmet Cells Not Reportable 04/17/20 05:44 Barroso-Mcpherson Bodies Not Reportable 04/17/20 05:44 Moorcroft Rings Not Reportable 04/17/20 05:44 Michael Cells Not Reportable 04/17/20 05:44 Bite Cells Not Reportable 04/17/20 05:44 Crenated Cell Not Reportable 04/17/20 05:44 Elliptocytes Not Reportable 04/17/20 05:44 Acanthocytes (Spur) Not Reportable 04/17/20 05:44 Rouleaux Not Reportable 04/17/20 05:44 Hemoglobin C Crystals Not Reportable 04/17/20 05:44 Schistocytes Not Reportable 04/17/20 05:44 Malaria parasites Not Reportable 04/17/20 05:44 Lc Bodies Not Reportable 04/17/20 05:44 Hem Pathologist Commnt No 04/17/20 05:44 PT 13.8 Sec. (12.2-14.9) 04/06/20 14:30 INR 1.04 (0.87-1.13) 04/06/20 14:30 APTT 28.1 Sec. (24.2-36.6) 04/06/20 14:30 D-Dimer 1144.77 ng/mlDDU (0-234) H 04/18/20 06:48 ABG pH 7.486 (7.320-7.450) H 04/18/20 03:23 POC ABG pCO2 40.7 mmHg (32.0-48.0) 04/18/20 03:23 ABG pCO2 54.0 mm Hg 04/11/20 03:44 POC ABG pO2 56.4 mmHg (83-108) L 04/18/20 03:23 ABG pO2 73.4 mm Hg (80.0-90.0) L 04/11/20 03:44 POC ABG HCO3 30.0 04/18/20 03:23 ABG HCO3 26.7 mmol/L (20.0-26.0) H 04/11/20 03:44 ABG O2 Saturation 95.0 % (95.0-99.0) 04/11/20 03:44 ABG O2 Content 14.4 (0.0-44) 04/11/20 03:44 POC ABG Base Excess 6.1 04/18/20 03:23 ABG Base Excess -0.1 mmol/L (-2.0-3.0) 04/11/20 03:44 ABG Hemoglobin 11.2 (12.0-17.5) L 04/18/20 03:23 ABG Oxyhemoglobin 92.0 (94-98) L 04/18/20 03:23 ABG Carboxyhemoglobin 1.6 % (0.0-5.0) 04/11/20 03:44 ABG Methemoglobin 0.3 (0.0-1.5) 04/18/20 03:23 ABG Sodium 135.1 mmol/L (136.0-145.0) L 04/18/20 03:23 ABG Potassium 4.1 mmol/L (3.40-4.50) 04/18/20 03:23 ABG Chloride 100.0 mmol/L (98-107) 04/18/20 03:23 ABG Glucose 138 mg/dL (65-95) H 04/18/20 03:23 Oxyhemoglobin 92.8 % (95.0-99.0) L 04/11/20 03:44 Carboxyhemoglobin 0.6 (0.5-1.5) 04/18/20 03:23 FiO2 40 04/18/20 03:23 Sodium 140 mmol/L (137-145) 04/22/20 03:50 Potassium 4.2 mmol/L (3.6-5.0) 04/22/20 03:50 Chloride 98.0 mmol/L (98-107) 04/22/20 03:50 Carbon Dioxide 27 mmol/L (22-30) 04/22/20 03:50 Anion Gap 19 mmol/L 04/22/20 03:50 BUN 15 mg/dL (7-17) 04/22/20 03:50 Creatinine 2.6 mg/dL (0.6-1.2) H 04/22/20 03:50 Estimated GFR 19 ml/min 04/22/20 03:50 BUN/Creatinine Ratio 6 % 04/22/20 03:50 Glucose 131 mg/dL (65-100) H 04/22/20 03:50 POC Glucose 147 mg/dL (70-105) H 04/22/20 07:50 Lactic Acid 0.90 mmol/L (0.7-2.0) 04/13/20 19:10 Calcium 9.1 mg/dL (8.4-10.2) 04/22/20 03:50 Phosphorus 3.00 mg/dL (2.5-4.5) 04/17/20 05:44 Magnesium 2.00 mg/dL (1.7-2.3) 04/17/20 05:44 Ferritin 743.0 ng/mL (10.0-200.0) H 04/07/20 09:34 Total Bilirubin 0.30 mg/dL (0.1-1.2) 04/21/20 04:32 AST 12 units/L (5-40) 04/21/20 04:32 ALT 7 units/L (7-56) 04/21/20 04:32 Alkaline Phosphatase 324 units/L (35-129) H 04/21/20 04:32 Ammonia 43.0 umol/L (25-60) 04/06/20 14:30 Lactate Dehydrogenase 195 units/L (91-180) H 04/07/20 09:34 Total Creatine Kinase 23 units/L (30-135) L 04/06/20 14:30 Total Creatine Kinase 24 units/L (30-135) L 04/06/20 14:30 Troponin T 0.224 ng/mL (0.00-0.029) H* 04/06/20 14:30 C-Reactive Protein 7.50 mg/dL (0.00-1.30) H 04/07/20 09:34 Total Protein 7.9 g/dL (6.3-8.2) 04/21/20 04:32 Albumin 3.0 g/dL (3.9-5) L 04/21/20 04:32 Albumin/Globulin Ratio 0.6 % 04/21/20 04:32 Triglycerides 342 mg/dL (2-149) H 04/06/20 14:30 Cholesterol 223 mg/dL (50-199) H 04/06/20 14:30 LDL Cholesterol Direct 123 mg/dL (50-130) 04/06/20 14:30 HDL Cholesterol 35 mg/dL (40-59) L 04/06/20 14:30 Cholesterol/HDL Ratio 6.37 % 04/06/20 14:30 Procalcitonin 1.59 ng/mL (<0.15) 04/13/20 19:10 TSH 1.320 mlU/mL (0.270-4.200) 04/06/20 14:30 HCG, Qual Negative (Negative) 04/06/20 14:30 Arterial Blood Glucose 138 mg/dL (65-95) H 04/18/20 03:23 Arterial Blood Ionized Calcium 4.5 mg/dL (4.6-5.3) L 04/18/20 03:23 Urine Color Yellow (Yellow) 04/06/20 13:34 Urine Turbidity Turbid (Clear) 04/06/20 13:34 Urine pH 7.0 (5.0-7.0) 04/06/20 13:34 Ur Specific [place] 1.017 (1.003-1.030) 04/06/20 13:34 Urine Protein 100 mg/dl mg/dL (Negative) 04/06/20 13:34 Urine Glucose (UA) 50 mg/dL (Negative) 04/06/20 13:34 Urine Ketones Tr mg/dL (Negative) 04/06/20 13:34 Urine Blood Sm (Negative) 04/06/20 13:34 Urine Nitrite Neg (Negative) 04/06/20 13:34 Urine Bilirubin Neg (Negative) 04/06/20 13:34 Urine Urobilinogen < 2.0 mg/dL (<2.0) 04/06/20 13:34 Ur Leukocyte Esterase Mod (Negative) 04/06/20 13:34 Urine WBC (Auto) > 182.0 /HPF (0.0-6.0) H 04/06/20 13:34 Urine RBC (Auto) 49.0 /HPF (0.0-6.0) 04/06/20 13:34 U Epithel Cells (Auto) 6.0 /HPF (0-13.0) 04/06/20 13:34 Urine Bacteria (Auto) 2+ /HPF (Negative) 04/06/20 13:34 Urine WBC Clumps 3+ /HPF 04/06/20 13:34 Urine Mucus 3+ /HPF 04/06/20 13:34 Salicylates < 0.3 mg/dL (2.8-20.0) L 04/06/20 14:30 Acetaminophen 5.0 ug/mL (10.0-30.0) L 04/06/20 14:30 Plasma/Serum Alcohol < 0.01 % (0-0.07) 04/06/20 14:30 Coronavirus (PCR) Negative (Negative) 04/07/20 Unknown Hepatitis A IgM Ab Non-reactive (NonReactive) 04/07/20 16:38 Hep Bs Antigen Non-reactive (Negative) 04/07/20 16:38 Hep B Core IgM Ab Non-reactive (NonReactive) 04/07/20 16:38 Hepatitis C Antibody Reactive (NonReactive) A 04/07/20 16:38 Blood Type O POSITIVE 04/06/20 14:30 Antibody Screen Negative 04/06/20 14:30 Bains/IV: Voiding Method Incontinent IV Catheter Type [Left Forearm INT / Saline Lock ] IV Catheter Type [Right VAS Cath Subclavian] IV Catheter Type [Left INT / Saline Lock Antecubital] IV Catheter Type [Right INT / Saline Lock Forearm] Active Medications - Current Medications Current Medications: Generic Name Dose Route Start Last Admin Trade Name Freq PRN Reason Stop Dose Admin Acetaminophen 650 mg 04/06/20 16:39 Tylenol PO Q6H PRN Pain, Mild (1-3) Albuterol 2.5 mg 04/19/20 12:54 04/19/20 17:11 Proventil IH 2.5 mg Q6HRT PRN Administration Shortness Of Breath Carvedilol 6.25 mg 04/13/20 22:00 04/22/20 10:14 Coreg PO Not Given BID [facility] Clonidine HCl 0.1 mg 04/25/20 08:00 Catapres-Tts Patch TD Tu [facility] Dextrose 50 ml 04/09/20 16:30 D50w (25gm) Syringe IV Q30MIN PRN Hypoglycemia Protocol Famotidine 20 mg 04/07/20 10:00 04/22/20 10:14 Pepcid PO Not Given QDAY [facility] Heparin Sodium (Porcine) 5,000 unit 04/06/20 22:00 04/22/20 09:53 Heparin SUB-Q 5,000 unit Q12HR NOEL Administration Hydromorphone HCl 1 mg 04/18/20 14:22 04/22/20 08:55 Dilaudid IV 1 mg Q4H PRN Administration Pain , Severe (7-10) Hydrophilic Ointment 1 applic 04/06/20 13:34 Vaseline Lip Therapy TP Q2HR PRN Dry Lips Sodium Chloride 100 mls @ 999 mls/hr 04/07/20 17:00 Nacl 0.9% IV SPRING PRN Hypotension Dextrose/Sodium Chloride 1,000 mls @ 42 mls/hr 04/20/20 13:00 04/22/20 10:21 D5ns IV 42 mls/hr DIRECT [facility] Administration Insulin Glargine 10 units 04/17/20 10:00 04/22/20 10:14 Lantus SUB-Q Not Given Q24HR [facility] Insulin Human Regular 0 unit 04/09/20 18:00 04/22/20 05:43 Humulin R SUB-Q Not Given Q6H [facility] Protocol Labetalol HCl 10 mg 04/08/20 17:17 04/22/20 10:25 Labetalol IV 10 mg Q4H PRN Administration Blood Pressure Multi-Ingred Cream/Lotion/Oil/Oint 1 applic 04/06/20 13:34 Artificial Tears Ophth Oint OU Q4HR PRN Dry Eye(s) Ondansetron HCl 4 mg 04/18/20 07:45 04/21/20 20:14 Zofran IV 4 mg Q4H PRN Administration Nausea And Vomiting Sodium Chloride 10 ml 04/06/20 22:00 04/22/20 10:23 Sodium Chloride Flush Syringe 10 Ml IV 10 ml BID NOEL Administration Sodium Chloride 10 ml 04/06/20 16:32 04/21/20 20:15 Sodium Chloride Flush Syringe 10 Ml IV 10 ml PRN PRN Administration LINE FLUSH Nutrition/Malnutrition Assess - Dietary Evaluation Nutrition/Malnutrition Findings: Nutrition Notes Start: 04/07/20 08:19 Freq: Status: Active Protocol: Document 04/21/20 10:15 LM (Rec: 04/21/20 10:18 LM [id number]) Nutrition Notes Initial or Follow up Brief Note Current Diagnosis CKD (stage V CKD),Diabetes, Hypertension,Stroke Other Pertinent Diagnosis on HD, bilateral BKA, AMS Current Diet No diet Subjective/Other Information Pt with no diet order. Pt to get re-evaluated by [employer]. Nutrition Intervention Follow-Up By: 04/25/20 Additional Comments F/U for [employer] recs, diet advancement, intakes
--- NOTE | 2020-04-22 12:01 | Progress Note ---
Subjective Principal diagnosis: Ac on ch hypoxemic and hypercapnic resp failure; PUI COVID- 19 infxn; AMS Interval history: Patient was seen today for follow-up of multiple renal related issues No complaints of any chest pain pressure or shortness of breath Interdisciplinary notes that also reviewed Events of 24 hours vitals labs intake output medications were reviewed Past medical history: Reviewed Family history: Reviewed Social history: Reviewed Allergies: Reviewed Physical examination: Vitals: Reviewed HEENT: No pallor or icterus oral mucosa moist Neck: Supple no JVD no thyromegaly Chest: Bilateral clear to auscultation anteriorly Heart: Regular rate and rhythm S1-S2 heard no S3-S4 Abdomen: Soft nontender no voluntary guarding rigidity rebound Extremity: Dry skin less than 1+ peripheral edema Psychiatric: No evidence of agitation and aggression noted Dermatology: No petechial rashes Labs and x-rays: Reviewed from today Assessment and plan #ESRD: Continue with maintenance with dialysis on Friday schedule patient tolerating dialysis treatment fairly well #Anemia and end-stage renal disease: To monitor and follow, hemoglobin satisfactory at 10.9 #Bone mineral disorder and secondary hyperparathyroidism: Periodically check phosphorus and PTH level #Labile hypertension needs better control #We will start the patient on losartan 25 mg once a day and follow Patient was adequately counseled and educated regarding all the renal related issues Laboratory studies, have been explained to the patient All questions were answered and simple [place] We'll continue to follow and make recommendation for renal standpoint Objective - Vital Signs Vital signs: Vital Signs - 12hr 04/22/20 04/22/20 04/22/20 01:00 01:55 04:48 Temperature 97.2 F L 98.3 F Pulse Rate 90 89 84 Respiratory 20 18 Rate Blood Pressure 171/71 148/69 O2 Sat by Pulse 98 98 Oximetry 04/22/20 04/22/20 04/22/20 08:27 08:31 10:25 Temperature 98.9 F Pulse Rate 87 87 Respiratory 20 Rate Blood Pressure 175/62 173/62 O2 Sat by Pulse 97 95 Oximetry - Lab 04/22/20 03:50 04/22/20 03:50 Most recent lab results ABG pH 7.486 (7.320-7.450) H 04/18/20 03:23 ABG pCO2 54.0 mm Hg 04/11/20 03:44 ABG pO2 73.4 mm Hg (80.0-90.0) L 04/11/20 03:44 ABG HCO3 26.7 mmol/L (20.0-26.0) H 04/11/20 03:44 ABG O2 Saturation 95.0 % (95.0-99.0) 04/11/20 03:44 Calcium 9.1 mg/dL (8.4-10.2) 04/22/20 03:50 Phosphorus 3.00 mg/dL (2.5-4.5) 04/17/20 05:44 Magnesium 2.00 mg/dL (1.7-2.3) 04/17/20 05:44 Medications & Allergies - Medications Allergies/Adverse Reactions: Allergies carrot Allergy (Verified 07/28/19 12:30) Hives erythromycin base Allergy (Verified 07/30/19 11:26) Hives latex Allergy (Verified 02/18/19 13:20) Rash peas Allergy (Verified 12/20/19 12:37) Hives vancomycin Allergy (Verified 12/31/19 15:46) Hives Home Medications: Home Medications Medication Instructions Recorded Confirmed Last Taken Type Aripiprazole 5 mg PO DAILY 02/18/19 04/06/20 02/17/19 History Benadryl CAP 25 mg PO Q8H PRN 02/18/19 04/06/20 02/17/19 History Calcium Acetate 667 mg PO TIDWM 02/18/19 04/06/20 02/17/19 History Carvedilol 6.25 mg PO Q12H 02/18/19 04/06/20 02/17/19 History Colace CAP 100 mg PO Q12H PRN 02/18/19 04/06/20 02/17/19 History Esomeprazole Magnesium 40 mg PO QDAC 02/18/19 04/06/20 02/17/19 History HumaLOG 10 units SUB-Q TIDWM 02/18/19 04/06/20 02/17/19 History Insulin Detemir (Nf) [Levemir See Protocol SQ QHS 02/18/19 04/06/20 02/17/19 History Flextouch (Nf)] Losartan Potassium 50 mg PO DAILY 02/18/19 04/06/20 02/17/19 History Lyrica 75 mg PO Q12H 02/18/19 04/06/20 02/17/19 History Melatonin 6 mg PO QHS 02/18/19 04/06/20 02/17/19 History Senna 17.2 mg PO QHS PRN 02/18/19 04/06/20 02/17/19 History Venlafaxine HCl [Venlafaxine HCl 150 mg PO QDAC 02/18/19 04/06/20 02/17/19 History ER] Vitamin C 250 mg PO DAILY 02/18/19 04/06/20 02/17/19 History ZyrTEC 10mg cap 10 mg PO DAILY 02/18/19 04/06/20 02/17/19 History Calcium Acetate [Phoslo] 667 mg PO TIDWM capsule 12/22/19 04/06/20 Unknown Rx Fe Fumarate/FA/Mv, Min Comb#15 1 each PO QDAY capsule 12/22/19 04/06/20 Unknown Rx [Hemocyte Plus] Albuterol Mdi (or & Nicu Only) 2.5 puff IH Q4HRT PRN inha 01/12/20 04/06/20 Unknown Rx [ProAir HFA Inhaler] dexAMETHasone [Decadron] 6 mg PO Q12HR #10 tablet 01/12/20 04/06/20 Unknown Rx oxyCODONE 5 mg PO Q6H PRN #10 01/12/20 04/06/20 Unknown Rx Active Medications: Generic Name Dose Route Start Last Admin Trade Name Freq PRN Reason Stop Dose Admin Acetaminophen 650 mg 04/06/20 16:39 Tylenol PO Q6H PRN Pain, Mild (1-3) Albuterol 2.5 mg 04/19/20 12:54 04/19/20 17:11 Proventil IH 2.5 mg Q6HRT PRN Administration Shortness Of Breath Carvedilol 6.25 mg 04/13/20 22:00 04/22/20 10:14 Coreg PO Not Given BID NOEL Clonidine HCl 0.1 mg 04/25/20 08:00 Catapres-Tts Patch TD Tu NOEL Dextrose 50 ml 04/09/20 16:30 D50w (25gm) Syringe IV Q30MIN PRN Hypoglycemia Protocol Famotidine 20 mg 04/07/20 10:00 04/22/20 10:14 Pepcid PO Not Given QDAY NOEL Heparin Sodium (Porcine) 5,000 unit 04/06/20 22:00 04/22/20 09:53 Heparin SUB-Q 5,000 unit Q12HR NOEL Administration Hydromorphone HCl 1 mg 04/18/20 14:22 04/22/20 08:55 Dilaudid IV 1 mg Q4H PRN Administration Pain , Severe (7-10) Hydrophilic Ointment 1 applic 04/06/20 13:34 Vaseline Lip Therapy TP Q2HR PRN Dry Lips Sodium Chloride 100 mls @ 999 mls/hr 04/07/20 17:00 Nacl 0.9% IV SPRING PRN Hypotension Dextrose/Sodium Chloride 1,000 mls @ 42 mls/hr 04/20/20 13:00 04/22/20 10:21 D5ns IV 42 mls/hr DIRECT [facility] Administration Insulin Glargine 10 units 04/17/20 10:00 04/22/20 10:14 Lantus SUB-Q Not Given Q24HR [facility] Insulin Human Regular 0 unit 04/09/20 18:00 04/22/20 05:43 Humulin R SUB-Q Not Given Q6H [facility] Protocol Labetalol HCl 10 mg 04/08/20 17:17 04/22/20 10:25 Labetalol IV 10 mg Q4H PRN Administration Blood Pressure Multi-Ingred Cream/Lotion/Oil/Oint 1 applic 04/06/20 13:34 Artificial Tears Ophth Oint OU Q4HR PRN Dry Eye(s) Ondansetron HCl 4 mg 04/18/20 07:45 04/21/20 20:14 Zofran IV 4 mg Q4H PRN Administration Nausea And Vomiting Sodium Chloride 10 ml 04/06/20 22:00 04/22/20 10:23 Sodium Chloride Flush Syringe 10 Ml IV 10 ml BID NOEL Administration Sodium Chloride 10 ml 04/06/20 16:32 04/21/20 20:15 Sodium Chloride Flush Syringe 10 Ml IV 10 ml PRN PRN Administration LINE FLUSH
[2020-04-22] MEDS ORDERED: COLACE 100 MG PO PRN (12:13)
[2020-04-22] MEDS ORDERED: ALBUTEROL 8.5 GM MDI INHALATION IH PRN (12:13)
--- NOTE | 2020-04-22 12:16 | Progress Note ---
Assessment and Plan Acute hypoxemic respiratory failure, extubated Severe sepsis: Present on admission with hypothermia, leukocytosis, altered me ntal status, likely due to bilateral pneumonia, bacteremia and UTI. Bilateral pneumonia: Aspiration pneumonia/HAP. Recent COVID infection Jarrett Morales in January 2020 requiring intubation Acute toxic-metabolic encephalopathy Coag negative staph bacteremia: 05/29 bottles UTI End-stage renal disease on hemodialysis Extensive Candidal intertrigo in groin and vagina Chronic leukocytosis Chronic Hepatitis C Continue bronchodilators JORGE LUIS for asthma - Continue to monitor temperature curve and WCC, -Antibitoics per ID and primary service -CXR, ABG as clinically indicated -Continue to monitor hemodynamics closely - continue to wean supplemental oxygen for target O2 sats > 90% - continue accuchecks with glycemic control per SSI (While critically ill target blood glucose of 140-180 mg/dL; avoid hypoglycemia) - avoid nephrotoxins, renally dose all medications -HD per renal service - continue to avoid benzodiazepines, reduce the possibility of delirium - Maintenance of sleep-wake cycle, avoid delirium - continue aspiration precautions - Stress ulcer and VTE prophylaxis (Heparin, Famotidine) - PT/OT/ROM exercises - continue mobility protocols for pressure ulcer prevention - continue other care per attending / other consultants - discharge planning ongoing concurrently Discussed with Dr. Mancuso CONDITION:FAIR PROGNOSIS: FAIR CODE STATUS: FULL CODE Subjective Date of service: 04/22/20 Principal diagnosis: Ac on ch hypoxemic and hypercapnic resp failure; PUI COVID- 19 infxn; AMS Interval history: Patient is seen today for: Acute on chronic hypoxemic and hypercapnic resp failure; PUI Coronavirus-19 infection; Acute encephalopathy; ESRD; Morbid obesity; DM II; AE-COPD Seen and examined at bedside; 24hour events reviewed; nursing and respiratory care staff consulted; no adverse overnight events reported to me; resting peacefully in bed;complains of shortness of breath, states she has asthma. Extubated doing well on a couple liters of oxygen via NC. No fevers, no diarrhea. Objective Vital Signs - 12hr 04/22/20 04/22/20 04/22/20 01:00 01:55 04:48 Temperature 97.2 F L 98.3 F Pulse Rate 90 89 84 Respiratory 20 18 Rate Blood Pressure 171/71 148/69 Blood Pressure [Left] O2 Sat by Pulse 98 98 Oximetry 1104/22/20 04/22/20 08:27 08:31 10:25 Temperature 98.9 F Pulse Rate 87 87 Respiratory 20 Rate Blood Pressure 175/62 173/62 Blood Pressure [Left] O2 Sat by Pulse 97 95 Oximetry 04/22/20 12:10 Temperature 99.2 F Pulse Rate 91 H Respiratory 18 Rate Blood Pressure Blood Pressure 191/77 [Left] O2 Sat by Pulse 96 Oximetry Constitutional: no acute distress, alert, other (middle aged obese female with mildly increased respiratory effort at rest) Eyes: non-icteric ENT: oropharynx moist, other Neck: supple, no lymphadenopathy, no JVD Effort: normal Ascultation: Bilateral: diminished breath sounds, wheezes, rhonchi (scant) Percussion: Bilateral: not dull Cardiovascular: regular rate and rhythm, other (S1,S2) Gastrointestinal: normoactive bowel sounds, soft, non-tender, non-distended (protuberant), other (Bains catheter) Integumentary: erythema (right BKA stump) Extremities: no cyanosis, no ischemia or petechiae, other (bilateral BKAs ) Neurologic: normal mental status, non-focal exam (grossly), pupils equal and round, motor strength normal and Psychiatric: affect normal, anxious CBC and BMP: 04/29/20 04:17 04/29/20 04:17 ABG, PT/INR, D-dimer: ABG ABG pH 7.486 (7.320-7.450) H 04/18/20 03:23 POC ABG pCO2 40.7 mmHg (32.0-48.0) 04/18/20 03:23 ABG pCO2 54.0 mm Hg 04/11/20 03:44 POC ABG pO2 56.4 mmHg (83-108) L 04/18/20 03:23 ABG pO2 73.4 mm Hg (80.0-90.0) L 04/11/20 03:44 POC ABG HCO3 30.0 04/18/20 03:23 ABG O2 Saturation 95.0 % (95.0-99.0) 04/11/20 03:44 PT/INR, D-dimer PT 13.8 Sec. (12.2-14.9) 04/06/20 14:30 INR 1.04 (0.87-1.13) 04/06/20 14:30 D-Dimer 1144.77 ng/mlDDU (0-234) H 04/18/20 06:48 Abnormal lab findings: Abnormal Labs 04/06/20 04/06/20 04/06/20 13:34 14:30 14:30 WBC 19.2 H RBC Hgb Hct RDW 17.8 H Plt Count Seg Neuts % (Manual) 90.0 H Lymphocytes % (Manual) 4.0 L Basophils % (Manual) Seg Neutrophils # Man 17.3 H Lymphocytes # (Manual) 0.8 L Monocytes # (Manual) Eosinophils # (Manual) Basophils # (Manual) D-Dimer ABG pH POC ABG pCO2 POC ABG pO2 ABG pO2 ABG HCO3 ABG Base Excess ABG Hemoglobin ABG Oxyhemoglobin ABG Sodium ABG Chloride ABG Glucose Oxyhemoglobin Sodium Potassium 5.2 H Chloride Carbon Dioxide 17 L BUN 53 H Creatinine 7.8 H Glucose 144 H POC Glucose Calcium Magnesium Ferritin Alkaline Phosphatase 738 H Lactate Dehydrogenase Total Creatine Kinase 23 L Troponin T 0.224 H* C-Reactive Protein Albumin 3.1 L Triglycerides 342 H Cholesterol 223 H HDL Cholesterol 35 L Arterial Blood Glucose Arterial Blood Ionized Calcium Urine WBC (Auto) > 182.0 H Salicylates Acetaminophen Hepatitis C Antibody 04/06/20 04/06/20 04/06/20 14:30 14:30 14:30 WBC RBC Hgb Hct RDW Plt Count Seg Neuts % (Manual) Lymphocytes % (Manual) Basophils % (Manual) Seg Neutrophils # Man Lymphocytes # (Manual) Monocytes # (Manual) Eosinophils # (Manual) Basophils # (Manual) D-Dimer ABG pH POC ABG pCO2 POC ABG pO2 ABG pO2 ABG HCO3 ABG Base Excess ABG Hemoglobin ABG Oxyhemoglobin ABG Sodium ABG Chloride ABG Glucose Oxyhemoglobin Sodium Potassium Chloride Carbon Dioxide BUN Creatinine Glucose POC Glucose Calcium Magnesium 2.50 H Ferritin Alkaline Phosphatase Lactate Dehydrogenase Total Creatine Kinase 24 L Troponin T C-Reactive Protein Albumin Triglycerides Cholesterol HDL Cholesterol Arterial Blood Glucose Arterial Blood Ionized Calcium Urine WBC (Auto) Salicylates < 0.3 L Acetaminophen 5.0 L Hepatitis C Antibody 04/06/20 04/06/20 04/07/20 14:39 20:00 00:48 WBC RBC Hgb Hct RDW Plt Count Seg Neuts % (Manual) Lymphocytes % (Manual) Basophils % (Manual) Seg Neutrophils # Man Lymphocytes # (Manual) Monocytes # (Manual) Eosinophils # (Manual) Basophils # (Manual) D-Dimer ABG pH 7.281 L 7.306 L POC ABG pCO2 POC ABG pO2 78.0 L ABG pO2 133.8 H ABG HCO3 18.3 L ABG Base Excess -7.8 L ABG Hemoglobin 10.8 L 10.8 L ABG Oxyhemoglobin ABG Sodium ABG Chloride 108.0 H ABG Glucose Oxyhemoglobin Sodium Potassium Chloride Carbon Dioxide BUN Creatinine Glucose POC Glucose 69 L Calcium Magnesium Ferritin Alkaline Phosphatase Lactate Dehydrogenase Total Creatine Kinase Troponin T C-Reactive Protein Albumin Triglycerides Cholesterol HDL Cholesterol Arterial Blood Glucose Arterial Blood Ionized Calcium Urine WBC (Auto) Salicylates Acetaminophen Hepatitis C Antibody 04/07/20 04/07/20 04/07/20 09:34 09:34 09:34 WBC RBC Hgb Hct RDW Plt Count Seg Neuts % (Manual) Lymphocytes % (Manual) Basophils % (Manual) Seg Neutrophils # Man Lymphocytes # (Manual) Monocytes # (Manual) Eosinophils # (Manual) Basophils # (Manual) D-Dimer 1063.66 H ABG pH POC ABG pCO2 POC ABG pO2 ABG pO2 ABG HCO3 ABG Base Excess ABG Hemoglobin ABG Oxyhemoglobin ABG Sodium ABG Chloride ABG Glucose Oxyhemoglobin Sodium Potassium Chloride Carbon Dioxide BUN Creatinine Glucose POC Glucose Calcium Magnesium Ferritin 743.0 H Alkaline Phosphatase Lactate Dehydrogenase 195 H Total Creatine Kinase Troponin T C-Reactive Protein 7.50 H Albumin Triglycerides Cholesterol HDL Cholesterol Arterial Blood Glucose Arterial Blood Ionized Calcium Urine WBC (Auto) Salicylates Acetaminophen Hepatitis C Antibody 04/07/20 04/07/20 04/07/20 10:01 16:38 23:51 WBC RBC Hgb Hct RDW Plt Count Seg Neuts % (Manual) Lymphocytes % (Manual) Basophils % (Manual) Seg Neutrophils # Man Lymphocytes # (Manual) Monocytes # (Manual) Eosinophils # (Manual) Basophils # (Manual) D-Dimer ABG pH POC ABG pCO2 POC ABG pO2 79.8 L ABG pO2 ABG HCO3 ABG Base Excess ABG Hemoglobin 10.3 L ABG Oxyhemoglobin ABG Sodium ABG Chloride 109.0 H ABG Glucose Oxyhemoglobin Sodium Potassium Chloride Carbon Dioxide BUN Creatinine Glucose POC Glucose 117 H Calcium Magnesium Ferritin Alkaline Phosphatase Lactate Dehydrogenase Total Creatine Kinase Troponin T C-Reactive Protein Albumin Triglycerides Cholesterol HDL Cholesterol Arterial Blood Glucose Arterial Blood Ionized Calcium 4.5 L Urine WBC (Auto) Salicylates Acetaminophen Hepatitis C Antibody Reactive A 04/08/20 04/08/20 04/08/20 04:58 12:48 17:03 WBC RBC Hgb Hct RDW Plt Count Seg Neuts % (Manual) Lymphocytes % (Manual) Basophils % (Manual) Seg Neutrophils # Man Lymphocytes # (Manual) Monocytes # (Manual) Eosinophils # (Manual) Basophils # (Manual) D-Dimer ABG pH POC ABG pCO2 POC ABG pO2 ABG pO2 ABG HCO3 ABG Base Excess ABG Hemoglobin ABG Oxyhemoglobin ABG Sodium ABG Chloride ABG Glucose Oxyhemoglobin Sodium Potassium Chloride Carbon Dioxide BUN Creatinine Glucose POC Glucose 129 H 155 H 201 H Calcium Magnesium Ferritin Alkaline Phosphatase Lactate Dehydrogenase Total Creatine Kinase Troponin T C-Reactive Protein Albumin Triglycerides Cholesterol HDL Cholesterol Arterial Blood Glucose Arterial Blood Ionized Calcium Urine WBC (Auto) Salicylates Acetaminophen Hepatitis C Antibody 04/08/20 04/08/20 04/09/20 23:49 Unknown 05:31 WBC RBC Hgb Hct RDW Plt Count Seg Neuts % (Manual) Lymphocytes % (Manual) Basophils % (Manual) Seg Neutrophils # Man Lymphocytes # (Manual) Monocytes # (Manual) Eosinophils # (Manual) Basophils # (Manual) D-Dimer ABG pH 7.349 L POC ABG pCO2 POC ABG pO2 ABG pO2 117.3 H ABG HCO3 ABG Base Excess ABG Hemoglobin 7.4 L ABG Oxyhemoglobin ABG Sodium ABG Chloride ABG Glucose Oxyhemoglobin Sodium Potassium Chloride Carbon Dioxide BUN Creatinine Glucose POC Glucose 178 H 248 H Calcium Magnesium Ferritin Alkaline Phosphatase Lactate Dehydrogenase Total Creatine Kinase Troponin T C-Reactive Protein Albumin Triglycerides Cholesterol HDL Cholesterol Arterial Blood Glucose Arterial Blood Ionized Calcium Urine WBC (Auto) Salicylates Acetaminophen Hepatitis C Antibody 04/09/20 04/09/20 04/09/20 11:39 17:35 Unknown WBC RBC Hgb Hct RDW Plt Count Seg Neuts % (Manual) Lymphocytes % (Manual) Basophils % (Manual) Seg Neutrophils # Man Lymphocytes # (Manual) Monocytes # (Manual) Eosinophils # (Manual) Basophils # (Manual) D-Dimer ABG pH POC ABG pCO2 51.6 H POC ABG pO2 ABG pO2 ABG HCO3 ABG Base Excess ABG Hemoglobin 11.4 L ABG Oxyhemoglobin ABG Sodium 130.1 L ABG Chloride ABG Glucose 249 H Oxyhemoglobin Sodium Potassium Chloride Carbon Dioxide BUN Creatinine Glucose POC Glucose 319 H 254 H Calcium Magnesium Ferritin Alkaline Phosphatase Lactate Dehydrogenase Total Creatine Kinase Troponin T C-Reactive Protein Albumin Triglycerides Cholesterol HDL Cholesterol Arterial Blood Glucose 249 H Arterial Blood Ionized Calcium 4.1 L Urine WBC (Auto) Salicylates Acetaminophen Hepatitis C Antibody 04/10/20 04/10/20 04/10/20 00:00 03:15 05:49 WBC RBC Hgb Hct RDW Plt Count Seg Neuts % (Manual) Lymphocytes % (Manual) Basophils % (Manual) Seg Neutrophils # Man Lymphocytes # (Manual) Monocytes # (Manual) Eosinophils # (Manual) Basophils # (Manual) D-Dimer ABG pH POC ABG pCO2 48.2 H POC ABG pO2 ABG pO2 ABG HCO3 ABG Base Excess ABG Hemoglobin 9.9 L ABG Oxyhemoglobin ABG Sodium 135.4 L ABG Chloride ABG Glucose 215 H Oxyhemoglobin Sodium Potassium Chloride Carbon Dioxide BUN Creatinine Glucose POC Glucose 194 H 221 H Calcium Magnesium Ferritin Alkaline Phosphatase Lactate Dehydrogenase Total Creatine Kinase Troponin T C-Reactive Protein Albumin Triglycerides Cholesterol HDL Cholesterol Arterial Blood Glucose 215 H Arterial Blood Ionized Calcium 4.5 L Urine WBC (Auto) Salicylates Acetaminophen Hepatitis C Antibody 04/10/20 04/10/20 04/10/20 08:18 08:18 12:22 WBC 28.9 H RBC 3.38 L Hgb 9.5 L Hct 30.1 L RDW 16.9 H Plt Count Seg Neuts % (Manual) 87.0 H Lymphocytes % (Manual) 9.0 L Basophils % (Manual) 2.0 H Seg Neutrophils # Man 25.1 H Lymphocytes # (Manual) Monocytes # (Manual) Eosinophils # (Manual) Basophils # (Manual) 0.6 H D-Dimer ABG pH POC ABG pCO2 POC ABG pO2 ABG pO2 ABG HCO3 ABG Base Excess ABG Hemoglobin ABG Oxyhemoglobin ABG Sodium ABG Chloride ABG Glucose Oxyhemoglobin Sodium 134 L Potassium 3.5 L D Chloride 94.9 L Carbon Dioxide BUN 38 H Creatinine 5.5 H Glucose 230 H POC Glucose 218 H Calcium Magnesium Ferritin Alkaline Phosphatase Lactate Dehydrogenase Total Creatine Kinase Troponin T C-Reactive Protein Albumin Triglycerides Cholesterol HDL Cholesterol Arterial Blood Glucose Arterial Blood Ionized Calcium Urine WBC (Auto) Salicylates Acetaminophen Hepatitis C Antibody 04/10/20 04/10/20 04/10/20 17:27 18:08 23:29 WBC RBC Hgb Hct RDW Plt Count Seg Neuts % (Manual) Lymphocytes % (Manual) Basophils % (Manual) Seg Neutrophils # Man Lymphocytes # (Manual) Monocytes # (Manual) Eosinophils # (Manual) Basophils # (Manual) D-Dimer ABG pH POC ABG pCO2 POC ABG pO2 ABG pO2 ABG HCO3 ABG Base Excess ABG Hemoglobin ABG Oxyhemoglobin ABG Sodium ABG Chloride ABG Glucose Oxyhemoglobin Sodium Potassium Chloride Carbon Dioxide BUN Creatinine Glucose POC Glucose 218 H 223 H 166 H Calcium Magnesium Ferritin Alkaline Phosphatase Lactate Dehydrogenase Total Creatine Kinase Troponin T C-Reactive Protein Albumin Triglycerides Cholesterol HDL Cholesterol Arterial Blood Glucose Arterial Blood Ionized Calcium Urine WBC (Auto) Salicylates Acetaminophen Hepatitis C Antibody 04/11/20 04/11/20 04/11/20 03:44 05:28 07:39 WBC 26.9 H RBC 3.32 L Hgb 9.4 L Hct 29.5 L RDW 17.2 H Plt Count Seg Neuts % (Manual) 83.0 H Lymphocytes % (Manual) 10.0 L Basophils % (Manual) Seg Neutrophils # Man 22.3 H Lymphocytes # (Manual) Monocytes # (Manual) 1.1 H Eosinophils # (Manual) 0.5 H Basophils # (Manual) D-Dimer ABG pH 7.313 L POC ABG pCO2 POC ABG pO2 ABG pO2 73.4 L ABG HCO3 26.7 H ABG Base Excess ABG Hemoglobin 11.0 L ABG Oxyhemoglobin ABG Sodium ABG Chloride ABG Glucose Oxyhemoglobin 92.8 L Sodium Potassium Chloride Carbon Dioxide BUN Creatinine Glucose POC Glucose 164 H Calcium Magnesium Ferritin Alkaline Phosphatase Lactate Dehydrogenase Total Creatine Kinase Troponin T C-Reactive Protein Albumin Triglycerides Cholesterol HDL Cholesterol Arterial Blood Glucose Arterial Blood Ionized Calcium Urine WBC (Auto) Salicylates Acetaminophen Hepatitis C Antibody 04/11/20 04/11/20 04/11/20 07:39 12:25 19:02 WBC RBC Hgb Hct RDW Plt Count Seg Neuts % (Manual) Lymphocytes % (Manual) Basophils % (Manual) Seg Neutrophils # Man Lymphocytes # (Manual) Monocytes # (Manual) Eosinophils # (Manual) Basophils # (Manual) D-Dimer ABG pH POC ABG pCO2 POC ABG pO2 ABG pO2 ABG HCO3 ABG Base Excess ABG Hemoglobin ABG Oxyhemoglobin ABG Sodium ABG Chloride ABG Glucose Oxyhemoglobin Sodium Potassium Chloride Carbon Dioxide BUN 48 H Creatinine 6.1 H Glucose 122 H POC Glucose 175 H 175 H Calcium 8.3 L Magnesium Ferritin Alkaline Phosphatase Lactate Dehydrogenase Total Creatine Kinase Troponin T C-Reactive Protein Albumin Triglycerides Cholesterol HDL Cholesterol Arterial Blood Glucose Arterial Blood Ionized Calcium Urine WBC (Auto) Salicylates Acetaminophen Hepatitis C Antibody 04/12/20 04/12/20 04/12/20 00:02 05:51 08:14 WBC 28.0 H RBC 3.29 L Hgb 9.5 L Hct 29.1 L RDW 16.9 H Plt Count Seg Neuts % (Manual) 88.0 H Lymphocytes % (Manual) 7.0 L Basophils % (Manual) Seg Neutrophils # Man 24.6 H Lymphocytes # (Manual) Monocytes # (Manual) Eosinophils # (Manual) 0.6 H Basophils # (Manual) D-Dimer ABG pH POC ABG pCO2 POC ABG pO2 ABG pO2 ABG HCO3 ABG Base Excess ABG Hemoglobin ABG Oxyhemoglobin ABG Sodium ABG Chloride ABG Glucose Oxyhemoglobin Sodium Potassium Chloride Carbon Dioxide BUN Creatinine Glucose POC Glucose 146 H 151 H Calcium Magnesium Ferritin Alkaline Phosphatase Lactate Dehydrogenase Total Creatine Kinase Troponin T C-Reactive Protein Albumin Triglycerides Cholesterol HDL Cholesterol Arterial Blood Glucose Arterial Blood Ionized Calcium Urine WBC (Auto) Salicylates Acetaminophen Hepatitis C Antibody 04/12/20 04/12/20 04/12/20 08:14 12:21 17:26 WBC RBC Hgb Hct RDW Plt Count Seg Neuts % (Manual) Lymphocytes % (Manual) Basophils % (Manual) Seg Neutrophils # Man Lymphocytes # (Manual) Monocytes # (Manual) Eosinophils # (Manual) Basophils # (Manual) D-Dimer ABG pH POC ABG pCO2 POC ABG pO2 ABG pO2 ABG HCO3 ABG Base Excess ABG Hemoglobin ABG Oxyhemoglobin ABG Sodium ABG Chloride ABG Glucose Oxyhemoglobin Sodium Potassium 3.3 L Chloride Carbon Dioxide BUN 32 H Creatinine 4.3 H Glucose 188 H POC Glucose 196 H 235 H Calcium Magnesium Ferritin Alkaline Phosphatase Lactate Dehydrogenase Total Creatine Kinase Troponin T C-Reactive Protein Albumin Triglycerides Cholesterol HDL Cholesterol Arterial Blood Glucose Arterial Blood Ionized Calcium Urine WBC (Auto) Salicylates Acetaminophen Hepatitis C Antibody 04/12/20 04/13/20 04/13/20 23:34 03:40 05:33 WBC RBC Hgb Hct RDW Plt Count Seg Neuts % (Manual) Lymphocytes % (Manual) Basophils % (Manual) Seg Neutrophils # Man Lymphocytes # (Manual) Monocytes # (Manual) Eosinophils # (Manual) Basophils # (Manual) D-Dimer ABG pH POC ABG pCO2 POC ABG pO2 ABG pO2 ABG HCO3 ABG Base Excess ABG Hemoglobin 9.4 L ABG Oxyhemoglobin ABG Sodium 133.6 L ABG Chloride ABG Glucose 172 H Oxyhemoglobin Sodium Potassium Chloride Carbon Dioxide BUN Creatinine Glucose POC Glucose 171 H 167 H Calcium Magnesium Ferritin Alkaline Phosphatase Lactate Dehydrogenase Total Creatine Kinase Troponin T C-Reactive Protein Albumin Triglycerides Cholesterol HDL Cholesterol Arterial Blood Glucose 172 H Arterial Blood Ionized Calcium Urine WBC (Auto) Salicylates Acetaminophen Hepatitis C Antibody 04/13/20 04/13/20 04/13/20 07:49 09:09 11:34 WBC RBC Hgb Hct RDW Plt Count Seg Neuts % (Manual) Lymphocytes % (Manual) Basophils % (Manual) Seg Neutrophils # Man Lymphocytes # (Manual) Monocytes # (Manual) Eosinophils # (Manual) Basophils # (Manual) D-Dimer ABG pH POC ABG pCO2 POC ABG pO2 ABG pO2 ABG HCO3 ABG Base Excess ABG Hemoglobin ABG Oxyhemoglobin ABG Sodium ABG Chloride ABG Glucose Oxyhemoglobin Sodium Potassium Chloride Carbon Dioxide 31 H BUN 44 H 43 H Creatinine 5.0 H 4.9 H Glucose 164 H 164 H POC Glucose 155 H Calcium Magnesium Ferritin Alkaline Phosphatase Lactate Dehydrogenase Total Creatine Kinase Troponin T C-Reactive Protein Albumin Triglycerides Cholesterol HDL Cholesterol Arterial Blood Glucose Arterial Blood Ionized Calcium Urine WBC (Auto) Salicylates Acetaminophen Hepatitis C Antibody 04/13/20 04/13/20 04/14/20 17:38 23:40 04:35 WBC RBC Hgb Hct RDW Plt Count Seg Neuts % (Manual) Lymphocytes % (Manual) Basophils % (Manual) Seg Neutrophils # Man Lymphocytes # (Manual) Monocytes # (Manual) Eosinophils # (Manual) Basophils # (Manual) D-Dimer ABG pH POC ABG pCO2 POC ABG pO2 ABG pO2 ABG HCO3 ABG Base Excess ABG Hemoglobin ABG Oxyhemoglobin ABG Sodium ABG Chloride ABG Glucose Oxyhemoglobin Sodium Potassium Chloride Carbon Dioxide BUN Creatinine Glucose POC Glucose 180 H 130 H 121 H Calcium Magnesium Ferritin Alkaline Phosphatase Lactate Dehydrogenase Total Creatine Kinase Troponin T C-Reactive Protein Albumin Triglycerides Cholesterol HDL Cholesterol Arterial Blood Glucose Arterial Blood Ionized Calcium Urine WBC (Auto) Salicylates Acetaminophen Hepatitis C Antibody 04/14/20 04/14/20 04/15/20 12:17 17:06 00:11 WBC RBC Hgb Hct RDW Plt Count Seg Neuts % (Manual) Lymphocytes % (Manual) Basophils % (Manual) Seg Neutrophils # Man Lymphocytes # (Manual) Monocytes # (Manual) Eosinophils # (Manual) Basophils # (Manual) D-Dimer ABG pH POC ABG pCO2 POC ABG pO2 ABG pO2 ABG HCO3 ABG Base Excess ABG Hemoglobin ABG Oxyhemoglobin ABG Sodium ABG Chloride ABG Glucose Oxyhemoglobin Sodium Potassium Chloride Carbon Dioxide BUN Creatinine Glucose POC Glucose 170 H 177 H 156 H Calcium Magnesium Ferritin Alkaline Phosphatase Lactate Dehydrogenase Total Creatine Kinase Troponin T C-Reactive Protein Albumin Triglycerides Cholesterol HDL Cholesterol Arterial Blood Glucose Arterial Blood Ionized Calcium Urine WBC (Auto) Salicylates Acetaminophen Hepatitis C Antibody 04/15/20 04/15/20 04/15/20 05:09 11:45 17:12 WBC RBC Hgb Hct RDW Plt Count Seg Neuts % (Manual) Lymphocytes % (Manual) Basophils % (Manual) Seg Neutrophils # Man Lymphocytes # (Manual) Monocytes # (Manual) Eosinophils # (Manual) Basophils # (Manual) D-Dimer ABG pH POC ABG pCO2 POC ABG pO2 ABG pO2 ABG HCO3 ABG Base Excess ABG Hemoglobin ABG Oxyhemoglobin ABG Sodium ABG Chloride ABG Glucose Oxyhemoglobin Sodium Potassium Chloride Carbon Dioxide BUN Creatinine Glucose POC Glucose 141 H 154 H 177 H Calcium Magnesium Ferritin Alkaline Phosphatase Lactate Dehydrogenase Total Creatine Kinase Troponin T C-Reactive Protein Albumin Triglycerides Cholesterol HDL Cholesterol Arterial Blood Glucose Arterial Blood Ionized Calcium Urine WBC (Auto) Salicylates Acetaminophen Hepatitis C Antibody 04/16/20 04/16/20 04/16/20 05:11 12:13 17:31 WBC RBC Hgb Hct RDW Plt Count Seg Neuts % (Manual) Lymphocytes % (Manual) Basophils % (Manual) Seg Neutrophils # Man Lymphocytes # (Manual) Monocytes # (Manual) Eosinophils # (Manual) Basophils # (Manual) D-Dimer ABG pH POC ABG pCO2 POC ABG pO2 ABG pO2 ABG HCO3 ABG Base Excess ABG Hemoglobin ABG Oxyhemoglobin ABG Sodium ABG Chloride ABG Glucose Oxyhemoglobin Sodium Potassium Chloride Carbon Dioxide BUN Creatinine Glucose POC Glucose 115 H 122 H 188 H Calcium Magnesium Ferritin Alkaline Phosphatase Lactate Dehydrogenase Total Creatine Kinase Troponin T C-Reactive Protein Albumin Triglycerides Cholesterol HDL Cholesterol Arterial Blood Glucose Arterial Blood Ionized Calcium Urine WBC (Auto) Salicylates Acetaminophen Hepatitis C Antibody 04/16/20 04/17/20 04/17/20 23:47 05:44 05:44 WBC 19.5 H RBC 3.26 L Hgb 9.3 L Hct 28.7 L RDW 15.9 H Plt Count 604 H Seg Neuts % (Manual) 81.0 H Lymphocytes % (Manual) 11.0 L Basophils % (Manual) Seg Neutrophils # Man 15.8 H Lymphocytes # (Manual) Monocytes # (Manual) Eosinophils # (Manual) 0.6 H Basophils # (Manual) 0.2 H D-Dimer ABG pH POC ABG pCO2 POC ABG pO2 ABG pO2 ABG HCO3 ABG Base Excess ABG Hemoglobin ABG Oxyhemoglobin ABG Sodium ABG Chloride ABG Glucose Oxyhemoglobin Sodium Potassium Chloride Carbon Dioxide BUN 28 H Creatinine 3.3 H Glucose 130 H POC Glucose 156 H Calcium Magnesium Ferritin Alkaline Phosphatase Lactate Dehydrogenase Total Creatine Kinase Troponin T C-Reactive Protein Albumin Triglycerides Cholesterol HDL Cholesterol Arterial Blood Glucose Arterial Blood Ionized Calcium Urine WBC (Auto) Salicylates Acetaminophen Hepatitis C Antibody 04/17/20 04/17/20 04/17/20 12:57 17:18 22:04 WBC RBC Hgb Hct RDW Plt Count Seg Neuts % (Manual) Lymphocytes % (Manual) Basophils % (Manual) Seg Neutrophils # Man Lymphocytes # (Manual) Monocytes # (Manual) Eosinophils # (Manual) Basophils # (Manual) D-Dimer ABG pH 7.553 H POC ABG pCO2 POC ABG pO2 206.5 H ABG pO2 ABG HCO3 ABG Base Excess ABG Hemoglobin 11.2 L ABG Oxyhemoglobin 99.1 H ABG Sodium 133.0 L ABG Chloride ABG Glucose 183 H Oxyhemoglobin Sodium Potassium Chloride Carbon Dioxide BUN Creatinine Glucose POC Glucose 146 H 156 H Calcium Magnesium Ferritin Alkaline Phosphatase Lactate Dehydrogenase Total Creatine Kinase Troponin T C-Reactive Protein Albumin Triglycerides Cholesterol HDL Cholesterol Arterial Blood Glucose 183 H Arterial Blood Ionized Calcium 4.4 L Urine WBC (Auto) Salicylates Acetaminophen Hepatitis C Antibody 04/17/20 04/18/20 04/18/20 23:29 03:23 04:43 WBC RBC Hgb Hct RDW Plt Count Seg Neuts % (Manual) Lymphocytes % (Manual) Basophils % (Manual) Seg Neutrophils # Man Lymphocytes # (Manual) Monocytes # (Manual) Eosinophils # (Manual) Basophils # (Manual) D-Dimer ABG pH 7.486 H POC ABG pCO2 POC ABG pO2 56.4 L ABG pO2 ABG HCO3 ABG Base Excess ABG Hemoglobin 11.2 L ABG Oxyhemoglobin 92.0 L ABG Sodium 135.1 L ABG Chloride ABG Glucose 138 H Oxyhemoglobin Sodium Potassium Chloride Carbon Dioxide BUN Creatinine Glucose POC Glucose 125 H 119 H Calcium Magnesium Ferritin Alkaline Phosphatase Lactate Dehydrogenase Total Creatine Kinase Troponin T C-Reactive Protein Albumin Triglycerides Cholesterol HDL Cholesterol Arterial Blood Glucose 138 H Arterial Blood Ionized Calcium 4.5 L Urine WBC (Auto) Salicylates Acetaminophen Hepatitis C Antibody 04/18/20 04/18/20 04/18/20 06:48 06:48 06:48 WBC 38.7 H RBC Hgb Hct RDW 16.3 H Plt Count 597 H Seg Neuts % (Manual) Lymphocytes % (Manual) Basophils % (Manual) Seg Neutrophils # Man Lymphocytes # (Manual) Monocytes # (Manual) Eosinophils # (Manual) Basophils # (Manual) D-Dimer 1144.77 H ABG pH POC ABG pCO2 POC ABG pO2 ABG pO2 ABG HCO3 ABG Base Excess ABG Hemoglobin ABG Oxyhemoglobin ABG Sodium ABG Chloride ABG Glucose Oxyhemoglobin Sodium 134 L Potassium Chloride 96.4 L Carbon Dioxide BUN 19 H Creatinine 2.6 H Glucose 104 H POC Glucose Calcium Magnesium Ferritin Alkaline Phosphatase 413 H Lactate Dehydrogenase Total Creatine Kinase Troponin T C-Reactive Protein Albumin 2.8 L Triglycerides Cholesterol HDL Cholesterol Arterial Blood Glucose Arterial Blood Ionized Calcium Urine WBC (Auto) Salicylates Acetaminophen Hepatitis C Antibody 04/18/20 04/18/20 04/19/20 11:33 17:18 06:24 WBC 28.9 H RBC 3.33 L Hgb 9.5 L Hct 29.5 L RDW 16.0 H Plt Count 577 H Seg Neuts % (Manual) Lymphocytes % (Manual) Basophils % (Manual) Seg Neutrophils # Man Lymphocytes # (Manual) Monocytes # (Manual) Eosinophils # (Manual) Basophils # (Manual) D-Dimer ABG pH POC ABG pCO2 POC ABG pO2 ABG pO2 ABG HCO3 ABG Base Excess ABG Hemoglobin ABG Oxyhemoglobin ABG Sodium ABG Chloride ABG Glucose Oxyhemoglobin Sodium Potassium Chloride Carbon Dioxide BUN Creatinine Glucose POC Glucose 195 H 162 H Calcium Magnesium Ferritin Alkaline Phosphatase Lactate Dehydrogenase Total Creatine Kinase Troponin T C-Reactive Protein Albumin Triglycerides Cholesterol HDL Cholesterol Arterial Blood Glucose Arterial Blood Ionized Calcium Urine WBC (Auto) Salicylates Acetaminophen Hepatitis C Antibody 04/19/20 04/19/20 04/20/20 06:24 17:28 07:50 WBC 22.7 H RBC 3.43 L Hgb 9.6 L Hct RDW 15.9 H Plt Count 530 H Seg Neuts % (Manual) Lymphocytes % (Manual) Basophils % (Manual) Seg Neutrophils # Man Lymphocytes # (Manual) Monocytes # (Manual) Eosinophils # (Manual) Basophils # (Manual) D-Dimer ABG pH POC ABG pCO2 POC ABG pO2 ABG pO2 ABG HCO3 ABG Base Excess ABG Hemoglobin ABG Oxyhemoglobin ABG Sodium ABG Chloride ABG Glucose Oxyhemoglobin Sodium Potassium Chloride Carbon Dioxide 31 H D BUN 27 H Creatinine 3.8 H Glucose POC Glucose 114 H Calcium Magnesium Ferritin Alkaline Phosphatase 343 H Lactate Dehydrogenase Total Creatine Kinase Troponin T C-Reactive Protein Albumin 2.8 L Triglycerides Cholesterol HDL Cholesterol Arterial Blood Glucose Arterial Blood Ionized Calcium Urine WBC (Auto) Salicylates Acetaminophen Hepatitis C Antibody 04/20/20 04/21/20 04/21/20 07:50 00:42 04:32 WBC 16.4 H RBC 3.37 L Hgb 9.7 L Hct 30.0 L RDW 15.6 H Plt Count 597 H Seg Neuts % (Manual) Lymphocytes % (Manual) Basophils % (Manual) Seg Neutrophils # Man Lymphocytes # (Manual) Monocytes # (Manual) Eosinophils # (Manual) Basophils # (Manual) D-Dimer ABG pH POC ABG pCO2 POC ABG pO2 ABG pO2 ABG HCO3 ABG Base Excess ABG Hemoglobin ABG Oxyhemoglobin ABG Sodium ABG Chloride ABG Glucose Oxyhemoglobin Sodium Potassium Chloride Carbon Dioxide 31 H BUN Creatinine 2.8 H Glucose POC Glucose 119 H Calcium Magnesium Ferritin Alkaline Phosphatase Lactate Dehydrogenase Total Creatine Kinase Troponin T C-Reactive Protein Albumin Triglycerides Cholesterol HDL Cholesterol Arterial Blood Glucose Arterial Blood Ionized Calcium Urine WBC (Auto) Salicylates Acetaminophen Hepatitis C Antibody 04/21/20 04/21/20 04/21/20 04:32 16:30 17:43 WBC RBC Hgb Hct RDW Plt Count Seg Neuts % (Manual) Lymphocytes % (Manual) Basophils % (Manual) Seg Neutrophils # Man Lymphocytes # (Manual) Monocytes # (Manual) Eosinophils # (Manual) Basophils # (Manual) D-Dimer ABG pH POC ABG pCO2 POC ABG pO2 ABG pO2 ABG HCO3 ABG Base Excess ABG Hemoglobin ABG Oxyhemoglobin ABG Sodium ABG Chloride ABG Glucose Oxyhemoglobin Sodium Potassium Chloride Carbon Dioxide BUN 25 H Creatinine 3.9 H Glucose 106 H POC Glucose 149 H 171 H Calcium Magnesium Ferritin Alkaline Phosphatase 324 H Lactate Dehydrogenase Total Creatine Kinase Troponin T C-Reactive Protein Albumin 3.0 L Triglycerides Cholesterol HDL Cholesterol Arterial Blood Glucose Arterial Blood Ionized Calcium Urine WBC (Auto) Salicylates Acetaminophen Hepatitis C Antibody 04/22/20 04/22/20 04/22/20 00:59 03:50 03:50 WBC 15.5 H RBC Hgb Hct RDW Plt Count 629 H Seg Neuts % (Manual) Lymphocytes % (Manual) Basophils % (Manual) Seg Neutrophils # Man Lymphocytes # (Manual) Monocytes # (Manual) Eosinophils # (Manual) Basophils # (Manual) D-Dimer ABG pH POC ABG pCO2 POC ABG pO2 ABG pO2 ABG HCO3 ABG Base Excess ABG Hemoglobin ABG Oxyhemoglobin ABG Sodium ABG Chloride ABG Glucose Oxyhemoglobin Sodium Potassium Chloride Carbon Dioxide BUN Creatinine 2.6 H Glucose 131 H POC Glucose 128 H Calcium Magnesium Ferritin Alkaline Phosphatase Lactate Dehydrogenase Total Creatine Kinase Troponin T C-Reactive Protein Albumin Triglycerides Cholesterol HDL Cholesterol Arterial Blood Glucose Arterial Blood Ionized Calcium Urine WBC (Auto) Salicylates Acetaminophen Hepatitis C Antibody 04/22/20 04/22/20 04/22/20 05:38 07:50 11:44 WBC RBC Hgb Hct RDW Plt Count Seg Neuts % (Manual) Lymphocytes % (Manual) Basophils % (Manual) Seg Neutrophils # Man Lymphocytes # (Manual) Monocytes # (Manual) Eosinophils # (Manual) Basophils # (Manual) D-Dimer ABG pH POC ABG pCO2 POC ABG pO2 ABG pO2 ABG HCO3 ABG Base Excess ABG Hemoglobin ABG Oxyhemoglobin ABG Sodium ABG Chloride ABG Glucose Oxyhemoglobin Sodium Potassium Chloride Carbon Dioxide BUN Creatinine Glucose POC Glucose 115 H 147 H 175 H Calcium Magnesium Ferritin Alkaline Phosphatase Lactate Dehydrogenase Total Creatine Kinase Troponin T C-Reactive Protein Albumin Triglycerides Cholesterol HDL Cholesterol Arterial Blood Glucose Arterial Blood Ionized Calcium Urine WBC (Auto) Salicylates Acetaminophen Hepatitis C Antibody Allied health notes reviewed: RT
[2020-04-22] MEDS ORDERED: DOCUSATE SODIUM 100 MG CAP PO PRN (12:17)
[2020-04-22] MEDS: ONDANSETRON 4 MG/2 ML INJ IV PRN (15:14)
[2020-04-22] MEDS: LOSARTAN 25 MG TAB PO SCH (15:48)
[2020-04-22] MEDS: CALCIUM ACETATE 667 MG CAP PO SCH (16:19)
[2020-04-23] MEDS: INSULIN REGULAR, HUMAN 100 UNIT/ML 3ML VIAL SUB-Q SCH ×4 (00:30→17:17)
--- NOTE | 2020-04-23 07:21 | Progress Note ---
Subjective Principal diagnosis: Ac on ch hypoxemic and hypercapnic resp failure; PUI COVID- 19 infxn; AMS Interval history: Patient was seen today for follow-up of multiple renal related issues No complaints of any chest pain pressure or shortness of breath resting comfortably in bed constantly asking for more and more water Interdisciplinary notes that also reviewed Events of 24 hours vitals labs intake output medications were reviewed Past medical history: Reviewed Family history: Reviewed Social history: Reviewed Allergies: Reviewed Physical examination: Vitals: Reviewed HEENT: No pallor or icterus oral mucosa moist Neck: Supple no JVD no thyromegaly Chest: Bilateral clear to auscultation anteriorly Heart: Regular rate and rhythm S1-S2 heard no S3-S4 Abdomen: Soft nontender no voluntary guarding rigidity rebound Extremity: Dry skin less than 1+ edema even in upper extremities amputee Psychiatric: No evidence of agitation and aggression noted Dermatology: No petechial rashes Labs and x-rays: Reviewed from today Assessment and plan #ESRD: Continue with maintenance with dialysis on Friday schedule patient tolerating dialysis treatment fairly well As of yesterday white cell count is 15.5 thousand hemoglobin 10.9, creatinine 2.6 potassium 4.2 calcium is 9.1 #Anemia and end-stage renal disease: To monitor and follow, hemoglobin satisfactory at 10.9 #Bone mineral disorder and secondary hyperparathyroidism: Periodically check phosphorus and PTH level #Labile hypertension needs better control, started on losartan #Chronic issues with noncompliance Patient was adequately counseled and educated regarding all the renal related issues Laboratory studies, have been explained to the patient All questions were answered and simple Divehi We'll continue to follow and make recommendation for renal standpoint Objective - Vital Signs Vital signs: Vital Signs - 12hr 04/22/20 04/22/20 04/23/20 19:41 22:00 00:39 Temperature 98.6 F 98.9 F Pulse Rate 94 H 92 H Respiratory 18 16 18 Rate Blood Pressure 157/53 179/56 O2 Sat by Pulse 95 97 Oximetry 04/23/20 04/23/20 01:00 04:44 Temperature 98.0 F Pulse Rate 115 H 90 Respiratory 18 Rate Blood Pressure 174/61 O2 Sat by Pulse 93 Oximetry - Lab 04/22/20 03:50 04/22/20 03:50 Most recent lab results ABG pH 7.486 (7.320-7.450) H 04/18/20 03:23 ABG pCO2 54.0 mm Hg 04/11/20 03:44 ABG pO2 73.4 mm Hg (80.0-90.0) L 04/11/20 03:44 ABG HCO3 26.7 mmol/L (20.0-26.0) H 04/11/20 03:44 ABG O2 Saturation 95.0 % (95.0-99.0) 04/11/20 03:44 Calcium 9.1 mg/dL (8.4-10.2) 04/22/20 03:50 Phosphorus 3.00 mg/dL (2.5-4.5) 04/17/20 05:44 Magnesium 2.00 mg/dL (1.7-2.3) 04/17/20 05:44 Medications & Allergies - Medications Allergies/Adverse Reactions: Allergies carrot Allergy (Verified 07/28/19 12:30) Hives erythromycin base Allergy (Verified 07/30/19 11:26) Hives latex Allergy (Verified 02/18/19 13:20) Rash peas Allergy (Verified 12/20/19 12:37) Hives vancomycin Allergy (Verified 12/31/19 15:46) Hives Home Medications: Home Medications Medication Instructions Recorded Confirmed Last Taken Type Aripiprazole 5 mg PO DAILY 02/18/19 04/06/20 02/17/19 History Benadryl CAP 25 mg PO Q8H PRN 02/18/19 04/06/20 02/17/19 History Calcium Acetate 667 mg PO TIDWM 02/18/19 04/06/20 02/17/19 History Carvedilol 6.25 mg PO Q12H 02/18/19 04/06/20 02/17/19 History Colace CAP 100 mg PO Q12H PRN 02/18/19 04/06/20 02/17/19 History Esomeprazole Magnesium 40 mg PO QDAC 02/18/19 04/06/20 02/17/19 History HumaLOG 10 units SUB-Q TIDWM 02/18/19 04/06/20 02/17/19 History Insulin Detemir (Nf) [Levemir See Protocol SQ QHS 02/18/19 04/06/20 02/17/19 History Flextouch (Nf)] Losartan Potassium 50 mg PO DAILY 02/18/19 04/06/20 02/17/19 History Lyrica 75 mg PO Q12H 02/18/19 04/06/20 02/17/19 History Melatonin 6 mg PO QHS 02/18/19 04/06/20 02/17/19 History Senna 17.2 mg PO QHS PRN 02/18/19 04/06/20 02/17/19 History Venlafaxine HCl [Venlafaxine HCl 150 mg PO QDAC 02/18/19 04/06/20 02/17/19 History ER] Vitamin C 250 mg PO DAILY 02/18/19 04/06/20 02/17/19 History ZyrTEC 10mg cap 10 mg PO DAILY 02/18/19 04/06/20 02/17/19 History Calcium Acetate [Phoslo] 667 mg PO TIDWM capsule 12/22/19 04/06/20 Unknown Rx Fe Fumarate/FA/Mv, Min Comb#15 1 each PO QDAY capsule 12/22/19 04/06/20 Unknown Rx [Hemocyte Plus] Albuterol Mdi (or & Nicu Only) 2.5 puff IH Q4HRT PRN inha 01/12/20 04/06/20 Unknown Rx [ProAir HFA Inhaler] dexAMETHasone [Decadron] 6 mg PO Q12HR #10 tablet 01/12/20 04/06/20 Unknown Rx oxyCODONE 5 mg PO Q6H PRN #10 01/12/20 04/06/20 Unknown Rx Active Medications: Generic Name Dose Route Start Last Admin Trade Name Sandorq PRN Reason Stop Dose Admin Acetaminophen 650 mg 04/06/20 16:39 Tylenol PO Q6H PRN Pain, Mild (1-3) Albuterol 2.5 puff 04/22/20 12:13 Proair IH Q4HRT PRN Shortness Of Breath Aripiprazole 5 mg 04/23/20 10:00 Aripiprazole PO DAILY NOEL Calcium Acetate 667 mg 04/22/20 17:00 04/22/20 16:19 Phoslo PO Not Given TIDWM NOEL Carvedilol 6.25 mg 04/13/20 22:00 04/22/20 23:39 Coreg PO Not Given BID NOEL Clonidine HCl 0.1 mg 04/25/20 08:00 Catapres-Tts Patch TD Tu [facility] Dextrose 50 ml 04/09/20 16:30 D50w (25gm) Syringe IV Q30MIN PRN Hypoglycemia Protocol Docusate Sodium 100 mg 04/22/20 12:17 Colace PO Q12H PRN Constipation Famotidine 20 mg 04/07/20 10:00 04/22/20 10:14 Pepcid PO Not Given QDAY [facility] Heparin Sodium (Porcine) 5,000 unit 04/06/20 22:00 04/22/20 23:39 Heparin SUB-Q 5,000 unit Q12HR NOEL Administration Hydromorphone HCl 1 mg 04/18/20 14:22 04/22/20 23:51 Dilaudid IV 1 mg Q4H PRN Administration Pain , Severe (7-10) Hydrophilic Ointment 1 applic 04/06/20 13:34 Vaseline Lip Therapy TP Q2HR PRN Dry Lips Sodium Chloride 100 mls @ 999 mls/hr 04/07/20 17:00 Nacl 0.9% IV SPRING PRN Hypotension Dextrose/Sodium Chloride 1,000 mls @ 42 mls/hr 04/20/20 13:00 04/22/20 10:21 D5ns IV 42 mls/hr DIRECT [facility] Administration Insulin Glargine 10 units 04/17/20 10:00 04/22/20 10:14 Lantus SUB-Q Not Given Q24HR [facility] Insulin Human Regular 0 unit 04/09/20 18:00 04/23/20 06:35 Humulin R SUB-Q Not Given Q6H [facility] Protocol Labetalol HCl 10 mg 04/08/20 17:17 04/22/20 10:25 Labetalol IV 10 mg Q4H PRN Administration Blood Pressure Losartan Potassium 25 mg 04/22/20 15:00 04/22/20 15:48 Cozaar PO Not Given QDAY [facility] Multi-Ingred Cream/Lotion/Oil/Oint 1 applic 04/06/20 13:34 Artificial Tears Ophth Oint OU Q4HR PRN Dry Eye(s) Multivitamins/Iron 1 each 04/23/20 10:00 Hemocyte Plus PO QDAY [facility] Ondansetron HCl 4 mg 04/18/20 07:45 04/22/20 15:14 Zofran IV 4 mg Q4H PRN Administration Nausea And Vomiting Pantoprazole Sodium 40 mg 04/23/20 07:30 Protonix PO QDAC NOEL Sodium Chloride 10 ml 04/06/20 22:00 04/22/20 23:40 Sodium Chloride Flush Syringe 10 Ml IV 10 ml BID NOEL Administration Sodium Chloride 10 ml 04/06/20 16:32 04/21/20 20:15 Sodium Chloride Flush Syringe 10 Ml IV 10 ml PRN PRN Administration LINE FLUSH
[2020-04-23] MEDS ORDERED: ESOMEPRAZOLE MAGNESIUM 40 MG PO SCH (07:30)
[2020-04-23] MEDS: PANTOPRAZOLE 40 MG TAB PO SCH ×3 (08:00→09:50)
[2020-04-23] MEDS: METOCLOPRAMIDE 10 MG/2 ML INJ IV SCH ×3 (08:15→21:38)
[2020-04-23] MEDS: CALCIUM ACETATE 667 MG CAP PO SCH ×5 (08:40→16:44)
[2020-04-23 09:02] LABS: Alanine Aminotransferase 10 units/L (7-56); Albumin 3.2 g/dL (3.9-5)
[2020-04-23 09:06] LABS: Bilirubin,Direct < 0.2 mg/dL (0-0.2)
[2020-04-23] MEDS: D5W/0.9% NACL 1,000 ML IV SCH (09:28)
[2020-04-23] MEDS: FAMOTIDINE 20 MG TAB PO SCH ×3 (09:29→09:52)
[2020-04-23] MEDS: HEPARIN 5,000 UNIT/1 ML VIAL SUB-Q SCH ×2 (09:30→21:38)
[2020-04-23] MEDS: LOSARTAN 25 MG TAB PO SCH ×3 (09:33→09:51)
[2020-04-23] MEDS: carvediloL 6.25 MG TAB PO SCH ×4 (09:33→21:38)
[2020-04-23] MEDS: ARIPiprazole 5 MG TAB PO SCH (09:50)
[2020-04-23] MEDS: FE FUMARATE/FA/MV, MIN COMB#15 CAP (HEMOCYTE PLUS) PO SCH (09:50)
--- NOTE | 2020-04-23 09:57 | Progress Note ---
Assessment and Plan Assessment and plan: 49 years old female with history of asthma, hypertension, end-stage renal disease on hemodialysis, diabetes mellitus, bipolar disorder, morbid obesity, CVA, resident of a group home, admitted on 04/06/2020 secondary to be found Unresponsiveness after hemodialysis. Patient is unable to provide history, currently intubated. Patient received hemodialysis and after completion she became unresponsive. Upon EMS arrival, blood pressure was 90/60, HR 88, temperature 97.2. Per records, patient was not complaining of any symptoms. On arrival, temperature 94.1, HR 66, RR 18, O2 sat 87%, BP 131/111. Initial WBC 19.2. Urinalysis showed more than 182 WBCs and moderate leukocyte esterase. Chest x-ray shows bibasilar infiltrates. Patient was intubated in the emergency room to protect airway. Bains catheter was placed yielding purulent urine. Severe sepsis. Present on admission with hypothermia, leukocytosis, altered mental status, likely due to bilateral pneumonia. F/U Blood Cx. Cont. Abx pre ID Bilateral pneumonia. Aspiration pneumonia/HAP illness induced Gastroparesis: Stable Severe UTI. Bains catheter with purulent urine. Acute hypoxemic and hypercapnic respiratory failure. Intubated for airway protection, O2 sats down to 87%. Acute toxic metabolic encephalopathy. Etiology secondary to sepsis Bibasilar atelectasis, End-stage renal disease on hemodialysis Anemia of chronic renal disease vancomycin allergy ? Causing hives. PER ID documentation at other hosptial does not show vanc allergy Chronic leukocytosis, appears so based on review of records from here and [facility] in the past were reviewed. Chronic Hepatitis C: treatment status unknown. F/U HCV RNA PCR. Extensive Candidal intertrigo in groin and vagina. Cont. Fluconazole Intractable nausea with vomiting. 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 Patient remains intubated on mechanical ventilation with AC mode ventilation rate 12, tidal volume 450, FiO2 40% and a PEEP of 6. Continue weaning per protocols. Patient with ESRD and continue TTS schedule per nephrology. Patient does have a history of COVID-19 infection(01/07/20) but negative testing April 07. Follow-up blood/urine/sputum culture. Continue antibiotics per ID recommendations. 04/09/2020. Patient not tolerating PSV 12/6 with FiO2 of 30%. Continue hemod ialysis per nephrology recommendations. Continue IV antibiotics per ID recommendations. Blood cultures no growth to date. Respiratory therapy reports patient with accelerated hypertension and apneic episodes on PSV ventilation. Await pulmonary recommendations. 04/10/2020. Patient remains on mechanical ventilation AC mode rate 12, tidal volume 450, FiO2 30% and a PEEP of 6. Continue PSV trials per protocols. Continue hemodialysis per nephrology recommendations. Continue anti-infectives of fluconazole and cefepime. Follow-up blood/urine/sputum culture. ID, pulmonary and nephrology following. 04/11/2020; patient remains on mechanical ventilation AC mode rate 12, tidal volume 450, FiO2 of 30 and PEEP of 6. Continue PSV trials per protocols. continue hemodialysis per nephrology. ID changed antibiotics to meropenem. Blood culture grew staph epidermidis likey contaminant. 04/12/2020; patient is intubated, patient open eyes spontaneously. Neurology consulted and continue on replacement treatment. EEG is pending. Recommend MRI. Patient is on meropenem per ID recommendation. Pulmonary is following. Patient is on spontaneous breathing trial 04/13/2020; patient is intubated. Patient's blood pressure was high yesterday, amlodipine and hydralazine was added. Overnight his blood pressure was low and will also BP medications. We will continue to follow. 04/14/2020; patient is intubated and blood pressure is on the low side of normal. Patient is on meropenem 5/5. 04/15/2020; patient is intubated, on spontaneous breathing trial. Pulmonary is following. neurology recommend MRI. 04/16/2020; patient is intubated, on spontaneous breathing trial. Pulmonary is following. Neurology recommend MRI once stable. 04/17: Patient showing some clinical improvement. MRI still pending. Continues on restraints weaning trial today. Antibiotics per ID continue aspiration precautions although management by critical care physician. Noted elevated D- dimer level with trend. See ultrasound of the lower extremity was negative for DVT. Prior hospitalization showed elevated D-dimer also. Will discuss with nephrology if patient needs CTA to see if this can be managed with dialysis. This will be done if patient is unable to wean from the vent due to hypoxia. 04/18: Patient required re-intubation last night due to self extubation and decompensation with hypoxia. CXR post extubation showed tube in expected position. Patient also noted to have large projectile vomiting. - Obtain KUB - start Zofran - Hold tube feeds - May benefit from GI eval if vomiting continues. - She is currently being treated for Aspiration Pneumonia with bactermia and Acute cystitis 04/19: Now extubated, Continue supportive care and aspiration precautions. Patient complaining of chronic pain, will resume home dose pain meds and avoid oversedation. No new seizure noted. still awaiting MRI brain. GI input noted: illness induced gastropoaresis, otherwise KUB and LFT normal, will start low fat fiber diet once patient able to tolerate PO. Continue to monitor WBC, increased again today. 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 Unless indicated by Intesivist will like to monitor patient in the ICU for additional 24 hrs before downgrading. 04/20: CONTINUE Aspiration precautions, started on D5NS for low Blood glucose. Speech re-eval today. PAIN CONTROL 04/21: Continue aspiration precautions. Blood sugar stable continue to monitor WBC count. Will reassess with speech evaluation continue restraints due to aggressive behavior towards nurses and pulling on shelving. Monitor mental status. 04/22: patient complains of nasuea, will start on Reglan IV prn. CONTINUE supportive care. 04/23: Patient continues on restraints. She tells me that she has a history of Gastroparesis. Will start IV reglan., check ct abdomen and pelvis. repeat speech eval and may need PEG if still not tolerating Diet. She will benefit from a supervisor safety deposit History Interval history: Patient seen and examined, continues to have altered sensorium intermittently complains of nausea and actually had vomiting, Nursing staff states that she threw something on them yesterday. Hospitalist Physical - Physical exam Narrative exam: VITAL SIGNS: Reviewed. GENERAL: The patient appears normally developed, lethargic with Nasal cannula, vital signs as documented. HEAD: No signs of head trauma. EYES: Pupils are equal. Extraocular motions intact. EARS: Hearing grossly intact. MOUTH: Oropharynx is normal. face mask on. NECK: No adenopathy, no JVD. CHEST: Chest with transmitted breath sounds bilaterally. No wheezes, rales, or rhonchi. CARDIAC: Regular rate and rhythm. S1 and S2, without murmurs, gallops, or rubs. VASCULAR: No Edema. Peripheral pulses normal and equal in all extremities. ABDOMEN: Soft, non tender and non distended. No rebound or guarding, and no masses palpated. Bowel Sounds normal. MUSCULOSKELETAL: Bilateral BKA NEUROLOGIC EXAM: Awake, lethargic ORIENTED to person place and time. Follows some commands. PSYCHIATRIC: Mood normal. SKIN: detail exam as documented in skin assessment - Constitutional Vitals: Temp Pulse Resp BP Pulse Ox 98.8 F 96 H 20 153/57 98 04/23/20 08:47 04/23/20 08:47 04/23/20 08:47 04/23/20 08:47 04/23/20 08:47 General appearance: Present: severe distress, other (Intubated on mechanical ventilation) HEART Score - HEART Score Troponin: Troponin T 0.224 ng/mL (0.00-0.029) H* 04/06/20 14:30 Results - Labs CBC & Chem 7: 04/22/20 03:50 04/22/20 03:50 Labs: Laboratory Last Values WBC 15.5 K/mm3 (4.5-11.0) H 04/22/20 03:50 RBC 3.71 M/mm3 (3.65-5.03) 04/22/20 03:50 Hgb 10.9 gm/dl (10.1-14.3) 04/22/20 03:50 Hct 32.9 % (30.3-42.9) 04/22/20 03:50 MCV 89 fl (79-97) 04/22/20 03:50 MCH 29 pg (28-32) 04/22/20 03:50 MCHC 33 % (30-34) 04/22/20 03:50 RDW 15.1 % (13.2-15.2) 04/22/20 03:50 Plt Count 629 K/mm3 (140-440) H 04/22/20 03:50 Add Manual Diff Complete 04/17/20 05:44 Total Counted 100 04/17/20 05:44 Seg Neuts % (Manual) 81.0 % (40.0-70.0) H 04/17/20 05:44 Band Neutrophils % 0 % 04/17/20 05:44 Lymphocytes % (Manual) 11.0 % (13.4-35.0) L 04/17/20 05:44 Reactive Lymphs % (Man) 0 % 04/17/20 05:44 Monocytes % (Manual) 3.0 % (0.0-7.3) 04/17/20 05:44 Eosinophils % (Manual) 3.0 % (0.0-4.3) 04/17/20 05:44 Basophils % (Manual) 1.0 % (0.0-1.8) 04/17/20 05:44 Metamyelocytes % 0 % 04/17/20 05:44 Myelocytes % 1.0 % 04/17/20 05:44 Promyelocytes % 0 % 04/17/20 05:44 Blast Cells % 0 % 04/17/20 05:44 Nucleated RBC % Not Reportable 04/17/20 05:44 Seg Neutrophils # Man 15.8 K/mm3 (1.8-7.7) H 04/17/20 05:44 Band Neutrophils # 0.0 K/mm3 04/17/20 05:44 Lymphocytes # (Manual) 2.1 K/mm3 (1.2-5.4) 04/17/20 05:44 Abs React Lymphs (Man) 0.0 K/mm3 04/17/20 05:44 Monocytes # (Manual) 0.6 K/mm3 (0.0-0.8) 04/17/20 05:44 Eosinophils # (Manual) 0.6 K/mm3 (0.0-0.4) H 04/17/20 05:44 Basophils # (Manual) 0.2 K/mm3 (0.0-0.1) H 04/17/20 05:44 Metamyelocytes # 0.0 K/mm3 04/17/20 05:44 Myelocytes # 0.2 K/mm3 04/17/20 05:44 Promyelocytes # 0.0 K/mm3 04/17/20 05:44 Blast Cells # 0.0 K/mm3 04/17/20 05:44 WBC Morphology Not Reportable 04/17/20 05:44 Hypersegmented Neuts Not Reportable 04/17/20 05:44 Hyposegmented Neuts Not Reportable 04/17/20 05:44 Hypogranular Neuts Not Reportable 04/17/20 05:44 Smudge Cells Not Reportable 04/17/20 05:44 Toxic Granulation Not Reportable 04/17/20 05:44 Toxic Vacuolation Not Reportable 04/17/20 05:44 Dohle Bodies Not Reportable 04/17/20 05:44 Pelger-Huet Anomaly Not Reportable 04/17/20 05:44 Stephanie Rods Not Reportable 04/17/20 05:44 Platelet Estimate Consistent w auto 04/17/20 05:44 Clumped Platelets Not Reportable 04/17/20 05:44 Plt Clumps, EDTA Not Reportable 04/17/20 05:44 Large Platelets Not Reportable 04/17/20 05:44 Giant Platelets Not Reportable 04/17/20 05:44 Platelet Satelliting Not Reportable 04/17/20 05:44 Plt Morphology Comment Not Reportable 04/17/20 05:44 RBC Morphology Normal 04/17/20 05:44 Dimorphic RBCs Not Reportable 04/17/20 05:44 Polychromasia Not Reportable 04/17/20 05:44 Hypochromasia Not Reportable 04/17/20 05:44 Poikilocytosis Not Reportable 04/17/20 05:44 Anisocytosis Not Reportable 04/17/20 05:44 Microcytosis Not Reportable 04/17/20 05:44 Macrocytosis Not Reportable 04/17/20 05:44 Spherocytes Few 04/17/20 05:44 Pappenheimer Bodies Not Reportable 04/17/20 05:44 Sickle Cells Not Reportable 04/17/20 05:44 Target Cells Not Reportable 04/17/20 05:44 Tear Drop Cells Not Reportable 04/17/20 05:44 Ovalocytes Not Reportable 04/17/20 05:44 Stomatocytes Few 04/12/20 08:14 Helmet Cells Not Reportable 04/17/20 05:44 [place] Bodies Not Reportable 04/17/20 05:44 [place] Rings Not Reportable 04/17/20 05:44 Michael Cells Not Reportable 04/17/20 05:44 Bite Cells Not Reportable 04/17/20 05:44 Crenated Cell Not Reportable 04/17/20 05:44 Elliptocytes Not Reportable 04/17/20 05:44 Acanthocytes (Spur) Not Reportable 04/17/20 05:44 Rouleaux Not Reportable 04/17/20 05:44 Hemoglobin C Crystals Not Reportable 04/17/20 05:44 Schistocytes Not Reportable 04/17/20 05:44 Malaria parasites Not Reportable 04/17/20 05:44 Lc Bodies Not Reportable 04/17/20 05:44 Hem Pathologist Commnt No 04/17/20 05:44 PT 13.8 Sec. (12.2-14.9) 04/06/20 14:30 INR 1.04 (0.87-1.13) 04/06/20 14:30 APTT 28.1 Sec. (24.2-36.6) 04/06/20 14:30 D-Dimer 1144.77 ng/mlDDU (0-234) H 04/18/20 06:48 ABG pH 7.486 (7.320-7.450) H 04/18/20 03:23 POC ABG pCO2 40.7 mmHg (32.0-48.0) 04/18/20 03:23 ABG pCO2 54.0 mm Hg 04/11/20 03:44 POC ABG pO2 56.4 mmHg (83-108) L 04/18/20 03:23 ABG pO2 73.4 mm Hg (80.0-90.0) L 04/11/20 03:44 POC ABG HCO3 30.0 04/18/20 03:23 ABG HCO3 26.7 mmol/L (20.0-26.0) H 04/11/20 03:44 ABG O2 Saturation 95.0 % (95.0-99.0) 04/11/20 03:44 ABG O2 Content 14.4 (0.0-44) 04/11/20 03:44 POC ABG Base Excess 6.1 04/18/20 03:23 ABG Base Excess -0.1 mmol/L (-2.0-3.0) 04/11/20 03:44 ABG Hemoglobin 11.2 (12.0-17.5) L 04/18/20 03:23 ABG Oxyhemoglobin 92.0 (94-98) L 04/18/20 03:23 ABG Carboxyhemoglobin 1.6 % (0.0-5.0) 04/11/20 03:44 ABG Methemoglobin 0.3 (0.0-1.5) 04/18/20 03:23 ABG Sodium 135.1 mmol/L (136.0-145.0) L 04/18/20 03:23 ABG Potassium 4.1 mmol/L (3.40-4.50) 04/18/20 03:23 ABG Chloride 100.0 mmol/L (98-107) 04/18/20 03:23 ABG Glucose 138 mg/dL (65-95) H 04/18/20 03:23 Oxyhemoglobin 92.8 % (95.0-99.0) L 04/11/20 03:44 Carboxyhemoglobin 0.6 (0.5-1.5) 04/18/20 03:23 FiO2 40 04/18/20 03:23 Sodium 140 mmol/L (137-145) 04/22/20 03:50 Potassium 4.2 mmol/L (3.6-5.0) 04/22/20 03:50 Chloride 98.0 mmol/L (98-107) 04/22/20 03:50 Carbon Dioxide 27 mmol/L (22-30) 04/22/20 03:50 Anion Gap 19 mmol/L 04/22/20 03:50 BUN 15 mg/dL (7-17) 04/22/20 03:50 Creatinine 2.6 mg/dL (0.6-1.2) H 04/22/20 03:50 Estimated GFR 19 ml/min 04/22/20 03:50 BUN/Creatinine Ratio 6 % 04/22/20 03:50 Glucose 131 mg/dL (65-100) H 04/22/20 03:50 POC Glucose 171 mg/dL (70-105) H 04/23/20 08:44 Lactic Acid 0.90 mmol/L (0.7-2.0) 04/13/20 19:10 Calcium 9.1 mg/dL (8.4-10.2) 04/22/20 03:50 Phosphorus 3.00 mg/dL (2.5-4.5) 04/17/20 05:44 Magnesium 2.00 mg/dL (1.7-2.3) 04/17/20 05:44 Ferritin 743.0 ng/mL (10.0-200.0) H 04/07/20 09:34 Total Bilirubin 0.30 mg/dL (0.1-1.2) 04/23/20 08:26 Direct Bilirubin < 0.2 mg/dL (0-0.2) 04/23/20 08:26 Indirect Bilirubin 0.1 mg/dL 04/23/20 08:26 AST 15 units/L (5-40) 04/23/20 08:26 ALT 10 units/L (7-56) 04/23/20 08:26 Alkaline Phosphatase 308 units/L (35-129) H 04/23/20 08:26 Ammonia 43.0 umol/L (25-60) 04/06/20 14:30 Lactate Dehydrogenase 195 units/L (91-180) H 04/07/20 09:34 Total Creatine Kinase 23 units/L (30-135) L 04/06/20 14:30 Total Creatine Kinase 24 units/L (30-135) L 04/06/20 14:30 Troponin T 0.224 ng/mL (0.00-0.029) H* 04/06/20 14:30 C-Reactive Protein 7.50 mg/dL (0.00-1.30) H 04/07/20 09:34 Total Protein 8.2 g/dL (6.3-8.2) 04/23/20 08:26 Albumin 3.2 g/dL (3.9-5) L 04/23/20 08:26 Albumin/Globulin Ratio 0.6 % 04/23/20 08:26 Triglycerides 342 mg/dL (2-149) H 04/06/20 14:30 Cholesterol 223 mg/dL (50-199) H 04/06/20 14:30 LDL Cholesterol Direct 123 mg/dL (50-130) 04/06/20 14:30 HDL Cholesterol 35 mg/dL (40-59) L 04/06/20 14:30 Cholesterol/HDL Ratio 6.37 % 04/06/20 14:30 Procalcitonin 1.59 ng/mL (<0.15) 04/13/20 19:10 TSH 1.320 mlU/mL (0.270-4.200) 04/06/20 14:30 HCG, Qual Negative (Negative) 04/06/20 14:30 Arterial Blood Glucose 138 mg/dL (65-95) H 04/18/20 03:23 Arterial Blood Ionized Calcium 4.5 mg/dL (4.6-5.3) L 04/18/20 03:23 Urine Color Yellow (Yellow) 04/06/20 13:34 Urine Turbidity Turbid (Clear) 04/06/20 13:34 Urine pH 7.0 (5.0-7.0) 04/06/20 13:34 Ur Specific [place] 1.017 (1.003-1.030) 04/06/20 13:34 Urine Protein 100 mg/dl mg/dL (Negative) 04/06/20 13:34 Urine Glucose (UA) 50 mg/dL (Negative) 04/06/20 13:34 Urine Ketones Tr mg/dL (Negative) 04/06/20 13:34 Urine Blood Sm (Negative) 04/06/20 13:34 Urine Nitrite Neg (Negative) 04/06/20 13:34 Urine Bilirubin Neg (Negative) 04/06/20 13:34 Urine Urobilinogen < 2.0 mg/dL (<2.0) 04/06/20 13:34 Ur Leukocyte Esterase Mod (Negative) 04/06/20 13:34 Urine WBC (Auto) > 182.0 /HPF (0.0-6.0) H 04/06/20 13:34 Urine RBC (Auto) 49.0 /HPF (0.0-6.0) 04/06/20 13:34 U Epithel Cells (Auto) 6.0 /HPF (0-13.0) 04/06/20 13:34 Urine Bacteria (Auto) 2+ /HPF (Negative) 04/06/20 13:34 Urine WBC Clumps 3+ /HPF 04/06/20 13:34 Urine Mucus 3+ /HPF 04/06/20 13:34 Salicylates < 0.3 mg/dL (2.8-20.0) L 04/06/20 14:30 Acetaminophen 5.0 ug/mL (10.0-30.0) L 04/06/20 14:30 Plasma/Serum Alcohol < 0.01 % (0-0.07) 04/06/20 14:30 Coronavirus (PCR) Negative (Negative) 04/07/20 Unknown Hepatitis A IgM Ab Non-reactive (NonReactive) 04/07/20 16:38 Hep Bs Antigen Non-reactive (Negative) 04/07/20 16:38 Hep B Core IgM Ab Non-reactive (NonReactive) 04/07/20 16:38 Hepatitis C Antibody Reactive (NonReactive) A 04/07/20 16:38 Blood Type O POSITIVE 04/06/20 14:30 Antibody Screen Negative 04/06/20 14:30 Bains/IV: Voiding Method Incontinent IV Catheter Type [Left Forearm INT / Saline Lock ] IV Catheter Type [Right VAS Cath Subclavian] IV Catheter Type [Left INT / Saline Lock Antecubital] IV Catheter Type [Right INT / Saline Lock Forearm] Active Medications - Current Medications Current Medications: Generic Name Dose Route Start Last Admin Trade Name Freq PRN Reason Stop Dose Admin Acetaminophen 650 mg 04/06/20 16:39 Tylenol PO Q6H PRN Pain, Mild (1-3) Albuterol 2.5 puff 04/22/20 12:13 Proair IH Q4HRT PRN Shortness Of Breath Aripiprazole 5 mg 04/23/20 10:00 04/23/20 09:50 Aripiprazole PO Not Given DAILY [facility] Calcium Acetate 667 mg 04/22/20 17:00 04/23/20 09:00 Phoslo PO 667 mg TIDWM NOEL Administration Carvedilol 6.25 mg 04/13/20 22:00 04/22/20 23:39 Coreg PO Not Given BID NOEL Clonidine HCl 0.1 mg 04/25/20 08:00 Catapres-Tts Patch TD Tu [facility] Dextrose 50 ml 04/09/20 16:30 D50w (25gm) Syringe IV Q30MIN PRN Hypoglycemia Protocol Docusate Sodium 100 mg 04/22/20 12:17 Colace PO Q12H PRN Constipation Famotidine 20 mg 04/07/20 10:00 04/22/20 10:14 Pepcid PO Not Given QDAY NOEL Heparin Sodium (Porcine) 5,000 unit 04/06/20 22:00 04/23/20 09:30 Heparin SUB-Q 5,000 unit Q12HR NOEL Administration Hydromorphone HCl 1 mg 04/18/20 14:22 04/22/20 23:51 Dilaudid IV 1 mg Q4H PRN Administration Pain , Severe (7-10) Hydrophilic Ointment 1 applic 04/06/20 13:34 Vaseline Lip Therapy TP Q2HR PRN Dry Lips Sodium Chloride 100 mls @ 999 mls/hr 04/07/20 17:00 Nacl 0.9% IV SPRING PRN Hypotension Dextrose/Sodium Chloride 1,000 mls @ 42 mls/hr 04/20/20 13:00 04/23/20 09:28 D5ns IV 42 mls/hr DIRECT NOEL Administration Insulin Glargine 10 units 04/17/20 10:00 04/22/20 10:14 Lantus SUB-Q Not Given Q24HR [facility] Insulin Human Regular 0 unit 04/09/20 18:00 04/23/20 06:35 Humulin R SUB-Q Not Given Q6H [facility] Protocol Labetalol HCl 10 mg 04/08/20 17:17 04/22/20 10:25 Labetalol IV 10 mg Q4H PRN Administration Blood Pressure Losartan Potassium 25 mg 04/22/20 15:00 04/22/20 15:48 Cozaar PO Not Given QDAY NOEL Metoclopramide HCl 5 mg 04/23/20 08:00 04/23/20 08:15 Reglan IV 04/25/20 07:59 5 mg Q6H NOEL Administration Multi-Ingred Cream/Lotion/Oil/Oint 1 applic 04/06/20 13:34 Artificial Tears Ophth Oint OU Q4HR PRN Dry Eye(s) Multivitamins/Iron 1 each 04/23/20 10:00 04/23/20 09:50 Hemocyte Plus PO Not Given QDAY NOEL Ondansetron HCl 4 mg 04/18/20 07:45 04/22/20 15:14 Zofran IV 4 mg Q4H PRN Administration Nausea And Vomiting Pantoprazole Sodium 40 mg 04/23/20 07:30 04/23/20 09:50 Protonix PO Not Given QDAC NOEL Sodium Chloride 10 ml 04/06/20 22:00 04/23/20 09:50 Sodium Chloride Flush Syringe 10 Ml IV 10 ml BID NOEL Administration Sodium Chloride 10 ml 04/06/20 16:32 04/21/20 20:15 Sodium Chloride Flush Syringe 10 Ml IV 10 ml PRN PRN Administration LINE FLUSH Nutrition/Malnutrition Assess - Dietary Evaluation Nutrition/Malnutrition Findings: Nutrition Notes Start: 04/07/20 08 :19 Freq: Status: Active Protocol: Document 04/21/20 10:15 LM (Rec: 04/21/20 10:18 LM [email or web address]) Nutrition Notes Initial or Follow up Brief Note Current Diagnosis CKD (stage V CKD),Diabetes, Hypertension,Stroke Other Pertinent Diagnosis on HD, bilateral BKA, AMS Current Diet No diet Subjective/Other Information Pt with no diet order. Pt to get re-evaluated by RETURNED GOODS INSPECTOR. Nutrition Intervention Follow-Up By: 04/25/20 Additional Comments F/U for RETURNED GOODS INSPECTOR recs, diet advancement, intakes
[2020-04-23] MEDS ORDERED: ARIPIPRAZOLE 5 MG PO SCH (10:00)
[2020-04-23] MEDS: HYDROmorphone 1 MG/1 ML INJ IV PRN ×3 (10:29→21:40)
[2020-04-23] MEDS: INSULIN GLARGINE 100 UNITS/ML SUB-Q SCH (12:35)
--- NOTE | 2020-04-23 12:59 | Cat Scan Report ---
CT ABDOMEN AND PELVIS WITHOUT CONTRAST INDICATION / CLINICAL INFORMATION: RECURRENT NAUSEA AND VOMITING. TECHNIQUE: Axial CT images were obtained through the abdomen and pelvis without IV contrast. All CT scans at this location are performed using CT dose reduction for ALARA by means of automated exposure control. COMPARISON: None FINDINGS: LOWER CHEST: Patchy groundglass opacities are present within the lung bases bilaterally. LIVER: Unremarkable GALLBLADDER/BILIARY TREE: Cholecystectomy. PANCREAS: Unremarkable SPLEEN: Unremarkable ADRENALS: Unremarkable KIDNEYS / URETER: There is bilateral perinephric and periureteral stranding. No hydronephrosis. No ur eteral calculi. URINARY BLADDER: Bladder is partially decompressed, though grossly unremarkable. REPRODUCTIVE ORGANS: Unremarkable STOMACH / SMALL BOWEL: Stomach and small bowel are normal in caliber. No evidence of bowel inflammati on. COLON: The colon is unremarkable. The appendix is normal in caliber. LYMPH NODES: No significant adenopathy. VASCULATURE: No significant abnormality. OTHER: No free air, free fluid, or focal fluid collection is identified. SKELETAL SYSTEM: No acute osseous findings. IMPRESSION: 1. Nonspecific perinephric and periureteral stranding without evidence of hydronephrosis. Findings ar e nonspecific and may reflect senescent changes, though infection is also a consideration. 2. Patchy bibasilar airspace disease, concerning for pneumonia. 3. Otherwise, no acute process of the abdomen or pelvis. Signer Name: Herber Martinez MD Signed: 04/23/2020 12:54 PM Workstation Name: [id number] ([id number]
--- NOTE | 2020-04-23 18:24 | Progress Note ---
Assessment and Plan Acute hypoxemic respiratory failure, extubated Severe sepsis: Present on admission with hypothermia, leukocytosis, altered me ntal status, likely due to bilateral pneumonia, bacteremia and UTI. Bilateral pneumonia: Aspiration pneumonia/HAP. Recent COVID infection Jarrett Morales in January 2020 requiring intubation Acute toxic-metabolic encephalopathy Coag negative staph bacteremia: 05/29 bottles UTI End-stage renal disease on hemodialysis Extensive Candidal intertrigo in groin and vagina Chronic leukocytosis Chronic Hepatitis C Continue bronchodilators JORGE LUIS for asthma Aspiration precautions Promotility agents - Continue to monitor temperature curve and WCC, -Antibiotics per ID and primary service -CXR, ABG as clinically indicated -Continue to monitor hemodynamics closely - continue to wean supplemental oxygen for target O2 sats > 90% - continue accuchecks with glycemic control per SSI (While critically ill target blood glucose of 140-180 mg/dL; avoid hypoglycemia) - avoid nephrotoxins, renally dose all medications -HD per renal service - continue to avoid benzodiazepines, reduce the possibility of delirium - Maintenance of sleep-wake cycle, avoid delirium - continue aspiration precautions - Stress ulcer and VTE prophylaxis (Heparin, Famotidine) - PT/OT/ROM exercises - continue mobility protocols for pressure ulcer prevention - continue other care per attending / other consultants - discharge planning ongoing concurrently Discussed with Dr. Mancuso CONDITION:FAIR PROGNOSIS: FAIR CODE STATUS: FULL CODE Subjective Date of service: 04/23/20 Principal diagnosis: Ac on ch hypoxemic and hypercapnic resp failure; PUI COVID- 19 infxn; AMS Interval history: Patient is seen today for: Acute on chronic hypoxemic and hypercapnic resp failure; PUI Coronavirus-19 infection; Acute encephalopathy; ESRD; Morbid obesity; DM II; AE-COPD Seen and examined at bedside; 24hour events reviewed; nursing and respiratory care staff consulted; no adverse overnight events reported to me; resting peacefully in bed;on restrains, asking for something to eat. "Please don't leave me" No fevers, no diarrhea. Has a history of gastroparesis Objective Vital Signs - 12hr 04/23/20 04/23/20 04/23/20 08:47 10:00 10:29 Temperature 98.8 F Pulse Rate 96 H Respiratory 20 17 17 Rate Blood Pressure 153/57 Blood Pressure [Left] O2 Sat by Pulse 98 98 Oximetry 04/23/20 04/23/20 04/23/20 10:59 12:44 16:47 Temperature 97.9 F 98.9 F Pulse Rate 79 101 H Respiratory 14 15 18 Rate Blood Pressure 193/72 Blood Pressure 152/77 [Left] O2 Sat by Pulse 98 98 Oximetry 04/23/20 04/23/20 16:49 16:50 Temperature Pulse Rate 79 Respiratory 16 Rate Blood Pressure 171/67 Blood Pressure [Left] O2 Sat by Pulse Oximetry Constitutional: no acute distress, alert, other (middle aged obese female with mildly increased respiratory effort at rest) Eyes: non-icteric ENT: oropharynx moist, other Neck: supple, no lymphadenopathy, no JVD Effort: normal Ascultation: Bilateral: diminished breath sounds, wheezes, rhonchi (scant) Percussion: Bilateral: not dull Cardiovascular: regular rate and rhythm, other (S1,S2) Gastrointestinal: normoactive bowel sounds, soft, non-tender, non-distended (protuberant) Integumentary: erythema (right BKA stump) Extremities: no cyanosis, no ischemia or petechiae, other (bilateral BKAs ) Neurologic: normal mental status, non-focal exam (grossly), pupils equal and round, motor strength normal and Psychiatric: mood appropriate, anxious CBC and BMP: 04/29/20 04:17 04/29/20 04:17 ABG, PT/INR, D-dimer: ABG ABG pH 7.486 (7.320-7.450) H 04/18/20 03:23 POC ABG pCO2 40.7 mmHg (32.0-48.0) 04/18/20 03:23 ABG pCO2 54.0 mm Hg 04/11/20 03:44 POC ABG pO2 56.4 mmHg (83-108) L 04/18/20 03:23 ABG pO2 73.4 mm Hg (80.0-90.0) L 04/11/20 03:44 POC ABG HCO3 30.0 04/18/20 03:23 ABG O2 Saturation 95.0 % (95.0-99.0) 04/11/20 03:44 PT/INR, D-dimer PT 13.8 Sec. (12.2-14.9) 04/06/20 14:30 INR 1.04 (0.87-1.13) 04/06/20 14:30 D-Dimer 1144.77 ng/mlDDU (0-234) H 04/18/20 06:48 Abnormal lab findings: Abnormal Labs 04/06/20 04/06/20 04/06/20 13:34 14:30 14:30 WBC 19.2 H RBC Hgb Hct RDW 17.8 H Plt Count Seg Neuts % (Manual) 90.0 H Lymphocytes % (Manual) 4.0 L Basophils % (Manual) Seg Neutrophils # Man 17.3 H Lymphocytes # (Manual) 0.8 L Monocytes # (Manual) Eosinophils # (Manual) Basophils # (Manual) D-Dimer ABG pH POC ABG pCO2 POC ABG pO2 ABG pO2 ABG HCO3 ABG Base Excess ABG Hemoglobin ABG Oxyhemoglobin ABG Sodium ABG Chloride ABG Glucose Oxyhemoglobin Sodium Potassium 5.2 H Chloride Carbon Dioxide 17 L BUN 53 H Creatinine 7.8 H Glucose 144 H POC Glucose Calcium Magnesium Ferritin Alkaline Phosphatase 738 H Lactate Dehydrogenase Total Creatine Kinase 23 L Troponin T 0.224 H* C-Reactive Protein Albumin 3.1 L Triglycerides 342 H Cholesterol 223 H HDL Cholesterol 35 L Arterial Blood Glucose Arterial Blood Ionized Calcium Urine WBC (Auto) > 182.0 H Salicylates Acetaminophen Hepatitis C Antibody 04/06/20 04/06/20 04/06/20 14:30 14:30 14:30 WBC RBC Hgb Hct RDW Plt Count Seg Neuts % (Manual) Lymphocytes % (Manual) Basophils % (Manual) Seg Neutrophils # Man Lymphocytes # (Manual) Monocytes # (Manual) Eosinophils # (Manual) Basophils # (Manual) D-Dimer ABG pH POC ABG pCO2 POC ABG pO2 ABG pO2 ABG HCO3 ABG Base Excess ABG Hemoglobin ABG Oxyhemoglobin ABG Sodium ABG Chloride ABG Glucose Oxyhemoglobin Sodium Potassium Chloride Carbon Dioxide BUN Creatinine Glucose POC Glucose Calcium Magnesium 2.50 H Ferritin Alkaline Phosphatase Lactate Dehydrogenase Total Creatine Kinase 24 L Troponin T C-Reactive Protein Albumin Triglycerides Cholesterol HDL Cholesterol Arterial Blood Glucose Arterial Blood Ionized Calcium Urine WBC (Auto) Salicylates < 0.3 L Acetaminophen 5.0 L Hepatitis C Antibody 04/06/20 04/06/20 04/07/20 14:39 20:00 00:48 WBC RBC Hgb Hct RDW Plt Count Seg Neuts % (Manual) Lymphocytes % (Manual) Basophils % (Manual) Seg Neutrophils # Man Lymphocytes # (Manual) Monocytes # (Manual) Eosinophils # (Manual) Basophils # (Manual) D-Dimer ABG pH 7.281 L 7.306 L POC ABG pCO2 POC ABG pO2 78.0 L ABG pO2 133.8 H ABG HCO3 18.3 L ABG Base Excess -7.8 L ABG Hemoglobin 10.8 L 10.8 L ABG Oxyhemoglobin ABG Sodium ABG Chloride 108.0 H ABG Glucose Oxyhemoglobin Sodium Potassium Chloride Carbon Dioxide BUN Creatinine Glucose POC Glucose 69 L Calcium Magnesium Ferritin Alkaline Phosphatase Lactate Dehydrogenase Total Creatine Kinase Troponin T C-Reactive Protein Albumin Triglycerides Cholesterol HDL Cholesterol Arterial Blood Glucose Arterial Blood Ionized Calcium Urine WBC (Auto) Salicylates Acetaminophen Hepatitis C Antibody 04/07/20 04/07/20 04/07/20 09:34 09:34 09:34 WBC RBC Hgb Hct RDW Plt Count Seg Neuts % (Manual) Lymphocytes % (Manual) Basophils % (Manual) Seg Neutrophils # Man Lymphocytes # (Manual) Monocytes # (Manual) Eosinophils # (Manual) Basophils # (Manual) D-Dimer 1063.66 H ABG pH POC ABG pCO2 POC ABG pO2 ABG pO2 ABG HCO3 ABG Base Excess ABG Hemoglobin ABG Oxyhemoglobin ABG Sodium ABG Chloride ABG Glucose Oxyhemoglobin Sodium Potassium Chloride Carbon Dioxide BUN Creatinine Glucose POC Glucose Calcium Magnesium Ferritin 743.0 H Alkaline Phosphatase Lactate Dehydrogenase 195 H Total Creatine Kinase Troponin T C-Reactive Protein 7.50 H Albumin Triglycerides Cholesterol HDL Cholesterol Arterial Blood Glucose Arterial Blood Ionized Calcium Urine WBC (Auto) Salicylates Acetaminophen Hepatitis C Antibody 04/07/20 04/07/20 04/07/20 10:01 16:38 23:51 WBC RBC Hgb Hct RDW Plt Count Seg Neuts % (Manual) Lymphocytes % (Manual) Basophils % (Manual) Seg Neutrophils # Man Lymphocytes # (Manual) Monocytes # (Manual) Eosinophils # (Manual) Basophils # (Manual) D-Dimer ABG pH POC ABG pCO2 POC ABG pO2 79.8 L ABG pO2 ABG HCO3 ABG Base Excess ABG Hemoglobin 10.3 L ABG Oxyhemoglobin ABG Sodium ABG Chloride 109.0 H ABG Glucose Oxyhemoglobin Sodium Potassium Chloride Carbon Dioxide BUN Creatinine Glucose POC Glucose 117 H Calcium Magnesium Ferritin Alkaline Phosphatase Lactate Dehydrogenase Total Creatine Kinase Troponin T C-Reactive Protein Albumin Triglycerides Cholesterol HDL Cholesterol Arterial Blood Glucose Arterial Blood Ionized Calcium 4.5 L Urine WBC (Auto) Salicylates Acetaminophen Hepatitis C Antibody Reactive A 04/08/20 04/08/20 04/08/20 04:58 12:48 17:03 WBC RBC Hgb Hct RDW Plt Count Seg Neuts % (Manual) Lymphocytes % (Manual) Basophils % (Manual) Seg Neutrophils # Man Lymphocytes # (Manual) Monocytes # (Manual) Eosinophils # (Manual) Basophils # (Manual) D-Dimer ABG pH POC ABG pCO2 POC ABG pO2 ABG pO2 ABG HCO3 ABG Base Excess ABG Hemoglobin ABG Oxyhemoglobin ABG Sodium ABG Chloride ABG Glucose Oxyhemoglobin Sodium Potassium Chloride Carbon Dioxide BUN Creatinine Glucose POC Glucose 129 H 155 H 201 H Calcium Magnesium Ferritin Alkaline Phosphatase Lactate Dehydrogenase Total Creatine Kinase Troponin T C-Reactive Protein Albumin Triglycerides Cholesterol HDL Cholesterol Arterial Blood Glucose Arterial Blood Ionized Calcium Urine WBC (Auto) Salicylates Acetaminophen Hepatitis C Antibody 04/08/20 04/08/20 04/09/20 23:49 Unknown 05:31 WBC RBC Hgb Hct RDW Plt Count Seg Neuts % (Manual) Lymphocytes % (Manual) Basophils % (Manual) Seg Neutrophils # Man Lymphocytes # (Manual) Monocytes # (Manual) Eosinophils # (Manual) Basophils # (Manual) D-Dimer ABG pH 7.349 L POC ABG pCO2 POC ABG pO2 ABG pO2 117.3 H ABG HCO3 ABG Base Excess ABG Hemoglobin 7.4 L ABG Oxyhemoglobin ABG Sodium ABG Chloride ABG Glucose Oxyhemoglobin Sodium Potassium Chloride Carbon Dioxide BUN Creatinine Glucose POC Glucose 178 H 248 H Calcium Magnesium Ferritin Alkaline Phosphatase Lactate Dehydrogenase Total Creatine Kinase Troponin T C-Reactive Protein Albumin Triglycerides Cholesterol HDL Cholesterol Arterial Blood Glucose Arterial Blood Ionized Calcium Urine WBC (Auto) Salicylates Acetaminophen Hepatitis C Antibody 04/09/20 04/09/20 04/09/20 11:39 17:35 Unknown WBC RBC Hgb Hct RDW Plt Count Seg Neuts % (Manual) Lymphocytes % (Manual) Basophils % (Manual) Seg Neutrophils # Man Lymphocytes # (Manual) Monocytes # (Manual) Eosinophils # (Manual) Basophils # (Manual) D-Dimer ABG pH POC ABG pCO2 51.6 H POC ABG pO2 ABG pO2 ABG HCO3 ABG Base Excess ABG Hemoglobin 11.4 L ABG Oxyhemoglobin ABG Sodium 130.1 L ABG Chloride ABG Glucose 249 H Oxyhemoglobin Sodium Potassium Chloride Carbon Dioxide BUN Creatinine Glucose POC Glucose 319 H 254 H Calcium Magnesium Ferritin Alkaline Phosphatase Lactate Dehydrogenase Total Creatine Kinase Troponin T C-Reactive Protein Albumin Triglycerides Cholesterol HDL Cholesterol Arterial Blood Glucose 249 H Arterial Blood Ionized Calcium 4.1 L Urine WBC (Auto) Salicylates Acetaminophen Hepatitis C Antibody 04/10/20 04/10/20 04/10/20 00:00 03:15 05:49 WBC RBC Hgb Hct RDW Plt Count Seg Neuts % (Manual) Lymphocytes % (Manual) Basophils % (Manual) Seg Neutrophils # Man Lymphocytes # (Manual) Monocytes # (Manual) Eosinophils # (Manual) Basophils # (Manual) D-Dimer ABG pH POC ABG pCO2 48.2 H POC ABG pO2 ABG pO2 ABG HCO3 ABG Base Excess ABG Hemoglobin 9.9 L ABG Oxyhemoglobin ABG Sodium 135.4 L ABG Chloride ABG Glucose 215 H Oxyhemoglobin Sodium Potassium Chloride Carbon Dioxide BUN Creatinine Glucose POC Glucose 194 H 221 H Calcium Magnesium Ferritin Alkaline Phosphatase Lactate Dehydrogenase Total Creatine Kinase Troponin T C-Reactive Protein Albumin Triglycerides Cholesterol HDL Cholesterol Arterial Blood Glucose 215 H Arterial Blood Ionized Calcium 4.5 L Urine WBC (Auto) Salicylates Acetaminophen Hepatitis C Antibody 04/10/20 04/10/20 04/10/20 08:18 08:18 12:22 WBC 28.9 H RBC 3.38 L Hgb 9.5 L Hct 30.1 L RDW 16.9 H Plt Count Seg Neuts % (Manual) 87.0 H Lymphocytes % (Manual) 9.0 L Basophils % (Manual) 2.0 H Seg Neutrophils # Man 25.1 H Lymphocytes # (Manual) Monocytes # (Manual) Eosinophils # (Manual) Basophils # (Manual) 0.6 H D-Dimer ABG pH POC ABG pCO2 POC ABG pO2 ABG pO2 ABG HCO3 ABG Base Excess ABG Hemoglobin ABG Oxyhemoglobin ABG Sodium ABG Chloride ABG Glucose Oxyhemoglobin Sodium 134 L Potassium 3.5 L D Chloride 94.9 L Carbon Dioxide BUN 38 H Creatinine 5.5 H Glucose 230 H POC Glucose 218 H Calcium Magnesium Ferritin Alkaline Phosphatase Lactate Dehydrogenase Total Creatine Kinase Troponin T C-Reactive Protein Albumin Triglycerides Cholesterol HDL Cholesterol Arterial Blood Glucose Arterial Blood Ionized Calcium Urine WBC (Auto) Salicylates Acetaminophen Hepatitis C Antibody 04/10/20 04/10/2004/10/20 17:27 18:08 23:29 WBC RBC Hgb Hct RDW Plt Count Seg Neuts % (Manual) Lymphocytes % (Manual) Basophils % (Manual) Seg Neutrophils # Man Lymphocytes # (Manual) Monocytes # (Manual) Eosinophils # (Manual) Basophils # (Manual) D-Dimer ABG pH POC ABG pCO2 POC ABG pO2 ABG pO2 ABG HCO3 ABG Base Excess ABG Hemoglobin ABG Oxyhemoglobin ABG Sodium ABG Chloride ABG Glucose Oxyhemoglobin Sodium Potassium Chloride Carbon Dioxide BUN Creatinine Glucose POC Glucose 218 H 223 H 166 H Calcium Magnesium Ferritin Alkaline Phosphatase Lactate Dehydrogenase Total Creatine Kinase Troponin T C-Reactive Protein Albumin Triglycerides Cholesterol HDL Cholesterol Arterial Blood Glucose Arterial Blood Ionized Calcium Urine WBC (Auto) Salicylates Acetaminophen Hepatitis C Antibody 04/11/20 04/11/20 04/11/20 03:44 05:28 07:39 WBC 26.9 H RBC 3.32 L Hgb 9.4 L Hct 29.5 L RDW 17.2 H Plt Count Seg Neuts % (Manual) 83.0 H Lymphocytes % (Manual) 10.0 L Basophils % (Manual) Seg Neutrophils # Man 22.3 H Lymphocytes # (Manual) Monocytes # (Manual) 1.1 H Eosinophils # (Manual) 0.5 H Basophils # (Manual) D-Dimer ABG pH 7.313 L POC ABG pCO2 POC ABG pO2 ABG pO2 73.4 L ABG HCO3 26.7 H ABG Base Excess ABG Hemoglobin 11.0 L ABG Oxyhemoglobin ABG Sodium ABG Chloride ABG Glucose Oxyhemoglobin 92.8 L Sodium Potassium Chloride Carbon Dioxide BUN Creatinine Glucose POC Glucose 164 H Calcium Magnesium Ferritin Alkaline Phosphatase Lactate Dehydrogenase Total Creatine Kinase Troponin T C-Reactive Protein Albumin Triglycerides Cholesterol HDL Cholesterol Arterial Blood Glucose Arterial Blood Ionized Calcium Urine WBC (Auto) Salicylates Acetaminophen Hepatitis C Antibody 04/11/20 04/11/20 04/11/20 07:39 12:25 19:02 WBC RBC Hgb Hct RDW Plt Count Seg Neuts % (Manual) Lymphocytes % (Manual) Basophils % (Manual) Seg Neutrophils # Man Lymphocytes # (Manual) Monocytes # (Manual) Eosinophils # (Manual) Basophils # (Manual) D-Dimer ABG pH POC ABG pCO2 POC ABG pO2 ABG pO2 ABG HCO3 ABG Base Excess ABG Hemoglobin ABG Oxyhemoglobin ABG Sodium ABG Chloride ABG Glucose Oxyhemoglobin Sodium Potassium Chloride Carbon Dioxide BUN 48 H Creatinine 6.1 H Glucose 122 H POC Glucose 175 H 175 H Calcium 8.3 L Magnesium Ferritin Alkaline Phosphatase Lactate Dehydrogenase Total Creatine Kinase Troponin T C-Reactive Protein Albumin Triglycerides Cholesterol HDL Cholesterol Arterial Blood Glucose Arterial Blood Ionized Calcium Urine WBC (Auto) Salicylates Acetaminophen Hepatitis C Antibody 04/12/20 04/12/20 04/12/20 00:02 05:51 08:14 WBC 28.0 H RBC 3.29 L Hgb 9.5 L Hct 29.1 L RDW 16.9 H Plt Count Seg Neuts % (Manual) 88.0 H Lymphocytes % (Manual) 7.0 L Basophils % (Manual) Seg Neutrophils # Man 24.6 H Lymphocytes # (Manual) Monocytes # (Manual) Eosinophils # (Manual) 0.6 H Basophils # (Manual) D-Dimer ABG pH POC ABG pCO2 POC ABG pO2 ABG pO2 ABG HCO3 ABG Base Excess ABG Hemoglobin ABG Oxyhemoglobin ABG Sodium ABG Chloride ABG Glucose Oxyhemoglobin Sodium Potassium Chloride Carbon Dioxide BUN Creatinine Glucose POC Glucose 146 H 151 H Calcium Magnesium Ferritin Alkaline Phosphatase Lactate Dehydrogenase Total Creatine Kinase Troponin T C-Reactive Protein Albumin Triglycerides Cholesterol HDL Cholesterol Arterial Blood Glucose Arterial Blood Ionized Calcium Urine WBC (Auto) Salicylates Acetaminophen Hepatitis C Antibody 04/12/20 04/12/20 04/12/20 08:14 12:21 17:26 WBC RBC Hgb Hct RDW Plt Count Seg Neuts % (Manual) Lymphocytes % (Manual) Basophils % (Manual) Seg Neutrophils # Man Lymphocytes # (Manual) Monocytes # (Manual) Eosinophils # (Manual) Basophils # (Manual) D-Dimer ABG pH POC ABG pCO2 POC ABG pO2 ABG pO2 ABG HCO3 ABG Base Excess ABG Hemoglobin ABG Oxyhemoglobin ABG Sodium ABG Chloride ABG Glucose Oxyhemoglobin Sodium Potassium 3.3 L Chloride Carbon Dioxide BUN 32 H Creatinine 4.3 H Glucose 188 H POC Glucose 196 H 235 H Calcium Magnesium Ferritin Alkaline Phosphatase Lactate Dehydrogenase Total Creatine Kinase Troponin T C-Reactive Protein Albumin Triglycerides Cholesterol HDL Cholesterol Arterial Blood Glucose Arterial Blood Ionized Calcium Urine WBC (Auto) Salicylates Acetaminophen Hepatitis C Antibody 04/12/20 04/13/20 04/13/20 23:34 03:40 05:33 WBC RBC Hgb Hct RDW Plt Count Seg Neuts % (Manual) Lymphocytes % (Manual) Basophils % (Manual) Seg Neutrophils # Man Lymphocytes # (Manual) Monocytes # (Manual) Eosinophils # (Manual) Basophils # (Manual) D-Dimer ABG pH POC ABG pCO2 POC ABG pO2 ABG pO2 ABG HCO3 ABG Base Excess ABG Hemoglobin 9.4 L ABG Oxyhemoglobin ABG Sodium 133.6 L ABG Chloride ABG Glucose 172 H Oxyhemoglobin Sodium Potassium Chloride Carbon Dioxide BUN Creatinine Glucose POC Glucose 171 H 167 H Calcium Magnesium Ferritin Alkaline Phosphatase Lactate Dehydrogenase Total Creatine Kinase Troponin T C-Reactive Protein Albumin Triglycerides Cholesterol HDL Cholesterol Arterial Blood Glucose 172 H Arterial Blood Ionized Calcium Urine WBC (Auto) Salicylates Acetaminophen Hepatitis C Antibody 04/13/20 04/13/20 04/13/20 07:49 09:09 11:34 WBC RBC Hgb Hct RDW Plt Count Seg Neuts % (Manual) Lymphocytes % (Manual) Basophils % (Manual) Seg Neutrophils # Man Lymphocytes # (Manual) Monocytes # (Manual) Eosinophils # (Manual) Basophils # (Manual) D-Dimer ABG pH POC ABG pCO2 POC ABG pO2 ABG pO2 ABG HCO3 ABG Base Excess ABG Hemoglobin ABG Oxyhemoglobin ABG Sodium ABG Chloride ABG Glucose Oxyhemoglobin Sodium Potassium Chloride Carbon Dioxide 31 H BUN 44 H 43 H Creatinine 5.0 H 4.9 H Glucose 164 H 164 H POC Glucose 155 H Calcium Magnesium Ferritin Alkaline Phosphatase Lactate Dehydrogenase Total Creatine Kinase Troponin T C-Reactive Protein Albumin Triglycerides Cholesterol HDL Cholesterol Arterial Blood Glucose Arterial Blood Ionized Calcium Urine WBC (Auto) Salicylates Acetaminophen Hepatitis C Antibody 04/13/20 04/13/20 04/14/20 17:38 23:40 04:35 WBC RBC Hgb Hct RDW Plt Count Seg Neuts % (Manual) Lymphocytes % (Manual) Basophils % (Manual) Seg Neutrophils # Man Lymphocytes # (Manual) Monocytes # (Manual) Eosinophils # (Manual) Basophils # (Manual) D-Dimer ABG pH POC ABG pCO2 POC ABG pO2 ABG pO2 ABG HCO3 ABG Base Excess ABG Hemoglobin ABG Oxyhemoglobin ABG Sodium ABG Chloride ABG Glucose Oxyhemoglobin Sodium Potassium Chloride Carbon Dioxide BUN Creatinine Glucose POC Glucose 180 H 130 H 121 H Calcium Magnesium Ferritin Alkaline Phosphatase Lactate Dehydrogenase Total Creatine Kinase Troponin T C-Reactive Protein Albumin Triglycerides Cholesterol HDL Cholesterol Arterial Blood Glucose Arterial Blood Ionized Calcium Urine WBC (Auto) Salicylates Acetaminophen Hepatitis C Antibody 04/14/20 04/14/20 04/15/20 12:17 17:06 00:11 WBC RBC Hgb Hct RDW Plt Count Seg Neuts % (Manual) Lymphocytes % (Manual) Basophils % (Manual) Seg Neutrophils # Man Lymphocytes # (Manual) Monocytes # (Manual) Eosinophils # (Manual) Basophils # (Manual) D-Dimer ABG pH POC ABG pCO2 POC ABG pO2 ABG pO2 ABG HCO3 ABG Base Excess ABG Hemoglobin ABG Oxyhemoglobin ABG Sodium ABG Chloride ABG Glucose Oxyhemoglobin Sodium Potassium Chloride Carbon Dioxide BUN Creatinine Glucose POC Glucose 170 H 177 H 156 H Calcium Magnesium Ferritin Alkaline Phosphatase Lactate Dehydrogenase Total Creatine Kinase Troponin T C-Reactive Protein Albumin Triglycerides Cholesterol HDL Cholesterol Arterial Blood Glucose Arterial Blood Ionized Calcium Urine WBC (Auto) Salicylates Acetaminophen Hepatitis C Antibody 04/15/20 04/15/20 04/15/20 05:09 11:45 17:12 WBC RBC Hgb Hct RDW Plt Count Seg Neuts % (Manual) Lymphocytes % (Manual) Basophils % (Manual) Seg Neutrophils # Man Lymphocytes # (Manual) Monocytes # (Manual) Eosinophils # (Manual) Basophils # (Manual) D-Dimer ABG pH POC ABG pCO2 POC ABG pO2 ABG pO2 ABG HCO3 ABG Base Excess ABG Hemoglobin ABG Oxyhemoglobin ABG Sodium ABG Chloride ABG Glucose Oxyhemoglobin Sodium Potassium Chloride Carbon Dioxide BUN Creatinine Glucose POC Glucose 141 H 154 H 177 H Calcium Magnesium Ferritin Alkaline Phosphatase Lactate Dehydrogenase Total Creatine Kinase Troponin T C-Reactive Protein Albumin Triglycerides Cholesterol HDL Cholesterol Arterial Blood Glucose Arterial Blood Ionized Calcium Urine WBC (Auto) Salicylates Acetaminophen Hepatitis C Antibody 04/16/20 04/16/20 04/16/20 05:11 12:13 17:31 WBC RBC Hgb Hct RDW Plt Count Seg Neuts % (Manual) Lymphocytes % (Manual) Basophils % (Manual) Seg Neutrophils # Man Lymphocytes # (Manual) Monocytes # (Manual) Eosinophils # (Manual) Basophils # (Manual) D-Dimer ABG pH POC ABG pCO2 POC ABG pO2 ABG pO2 ABG HCO3 ABG Base Excess ABG Hemoglobin ABG Oxyhemoglobin ABG Sodium ABG Chloride ABG Glucose Oxyhemoglobin Sodium Potassium Chloride Carbon Dioxide BUN Creatinine Glucose POC Glucose 115 H 122 H 188 H Calcium Magnesium Ferritin Alkaline Phosphatase Lactate Dehydrogenase Total Creatine Kinase Troponin T C-Reactive Protein Albumin Triglycerides Cholesterol HDL Cholesterol Arterial Blood Glucose Arterial Blood Ionized Calcium Urine WBC (Auto) Salicylates Acetaminophen Hepatitis C Antibody 04/16/20 04/17/20 04/17/20 23:47 05:44 05:44 WBC 19.5 H RBC 3.26 L Hgb 9.3 L Hct 28.7 L RDW 15.9 H Plt Count 604 H Seg Neuts % (Manual) 81.0 H Lymphocytes % (Manual) 11.0 L Basophils % (Manual) Seg Neutrophils # Man 15.8 H Lymphocytes # (Manual) Monocytes # (Manual) Eosinophils # (Manual) 0.6 H Basophils # (Manual) 0.2 H D-Dimer ABG pH POC ABG pCO2 POC ABG pO2 ABG pO2 ABG HCO3 ABG Base Excess ABG Hemoglobin ABG Oxyhemoglobin ABG Sodium ABG Chloride ABG Glucose Oxyhemoglobin Sodium Potassium Chloride Carbon Dioxide BUN 28 H Creatinine 3.3 H Glucose 130 H POC Glucose 156 H Calcium Magnesium Ferritin Alkaline Phosphatase Lactate Dehydrogenase Total Creatine Kinase Troponin T C-Reactive Protein Albumin Triglycerides Cholesterol HDL Cholesterol Arterial Blood Glucose Arterial Blood Ionized Calcium Urine WBC (Auto) Salicylates Acetaminophen Hepatitis C Antibody 04/17/20 04/17/20 04/17/20 12:57 17:18 22:04 WBC RBC Hgb Hct RDW Plt Count Seg Neuts % (Manual) Lymphocytes % (Manual) Basophils % (Manual) Seg Neutrophils # Man Lymphocytes # (Manual) Monocytes # (Manual) Eosinophils # (Manual) Basophils # (Manual) D-Dimer ABG pH 7.553 H POC ABG pCO2 POC ABG pO2 206.5 H ABG pO2 ABG HCO3 ABG Base Excess ABG Hemoglobin 11.2 L ABG Oxyhemoglobin 99.1 H ABG Sodium 133.0 L ABG Chloride ABG Glucose 183 H Oxyhemoglobin Sodium Potassium Chloride Carbon Dioxide BUN Creatinine Glucose POC Glucose 146 H 156 H Calcium Magnesium Ferritin Alkaline Phosphatase Lactate Dehydrogenase Total Creatine Kinase Troponin T C-Reactive Protein Albumin Triglycerides Cholesterol HDL Cholesterol Arterial Blood Glucose 183 H Arterial Blood Ionized Calcium 4.4 L Urine WBC (Auto) Salicylates Acetaminophen Hepatitis C Antibody 04/17/20 04/18/20 04/18/20 23:29 03:23 04:43 WBC RBC Hgb Hct RDW Plt Count Seg Neuts % (Manual) Lymphocytes % (Manual) Basophils % (Manual) Seg Neutrophils # Man Lymphocytes # (Manual) Monocytes # (Manual) Eosinophils # (Manual) Basophils # (Manual) D-Dimer ABG pH 7.486 H POC ABG pCO2 POC ABG pO2 56.4 L ABG pO2 ABG HCO3 ABG Base Excess ABG Hemoglobin 11.2 L ABG Oxyhemoglobin 92.0 L ABG Sodium 135.1 L ABG Chloride ABG Glucose 138 H Oxyhemoglobin Sodium Potassium Chloride Carbon Dioxide BUN Creatinine Glucose POC Glucose 125 H 119 H Calcium Magnesium Ferritin Alkaline Phosphatase Lactate Dehydrogenase Total Creatine Kinase Troponin T C-Reactive Protein Albumin Triglycerides Cholesterol HDL Cholesterol Arterial Blood Glucose 138 H Arterial Blood Ionized Calcium 4.5 L Urine WBC (Auto) Salicylates Acetaminophen Hepatitis C Antibody 04/18/20 04/18/20 04/18/20 06:48 06:48 06:48 WBC 38.7 H RBC Hgb Hct RDW 16.3 H Plt Count 597 H Seg Neuts % (Manual) Lymphocytes % (Manual) Basophils % (Manual) Seg Neutrophils # Man Lymphocytes # (Manual) Monocytes # (Manual) Eosinophils # (Manual) Basophils # (Manual) D-Dimer 1144.77 H ABG pH POC ABG pCO2 POC ABG pO2 ABG pO2 ABG HCO3 ABG Base Excess ABG Hemoglobin ABG Oxyhemoglobin ABG Sodium ABG Chloride ABG Glucose Oxyhemoglobin Sodium 134 L Potassium Chloride 96.4 L Carbon Dioxide BUN 19 H Creatinine 2.6 H Glucose 104 H POC Glucose Calcium Magnesium Ferritin Alkaline Phosphatase 413 H Lactate Dehydrogenase Total Creatine Kinase Troponin T C-Reactive Protein Albumin 2.8 L Triglycerides Cholesterol HDL Cholesterol Arterial Blood Glucose Arterial Blood Ionized Calcium Urine WBC (Auto) Salicylates Acetaminophen Hepatitis C Antibody 04/18/20 04/18/20 04/19/20 11:33 17:18 06:24 WBC 28.9 H RBC 3.33 L Hgb 9.5 L Hct 29.5 L RDW 16.0 H Plt Count 577 H Seg Neuts % (Manual) Lymphocytes % (Manual) Basophils % (Manual) Seg Neutrophils # Man Lymphocytes # (Manual) Monocytes # (Manual) Eosinophils # (Manual) Basophils # (Manual) D-Dimer ABG pH POC ABG pCO2 POC ABG pO2 ABG pO2 ABG HCO3 ABG Base Excess ABG Hemoglobin ABG Oxyhemoglobin ABG Sodium ABG Chloride ABG Glucose Oxyhemoglobin Sodium Potassium Chloride Carbon Dioxide BUN Creatinine Glucose POC Glucose 195 H 162 H Calcium Magnesium Ferritin Alkaline Phosphatase Lactate Dehydrogenase Total Creatine Kinase Troponin T C-Reactive Protein Albumin Triglycerides Cholesterol HDL Cholesterol Arterial Blood Glucose Arterial Blood Ionized Calcium Urine WBC (Auto) Salicylates Acetaminophen Hepatitis C Antibody 04/19/20 04/19/20 04/20/20 06:24 17:28 07:50 WBC 22.7 H RBC 3.43 L Hgb 9.6 L Hct RDW 15.9 H Plt Count 530 H Seg Neuts % (Manual) Lymphocytes % (Manual) Basophils % (Manual) Seg Neutrophils # Man Lymphocytes # (Manual) Monocytes # (Manual) Eosinophils # (Manual) Basophils # (Manual) D-Dimer ABG pH POC ABG pCO2 POC ABG pO2 ABG pO2 ABG HCO3 ABG Base Excess ABG Hemoglobin ABG Oxyhemoglobin ABG Sodium ABG Chloride ABG Glucose Oxyhemoglobin Sodium Potassium Chloride Carbon Dioxide 31 H D BUN 27 H Creatinine 3.8 H Glucose POC Glucose 114 H Calcium Magnesium Ferritin Alkaline Phosphatase 343 H Lactate Dehydrogenase Total Creatine Kinase Troponin T C-Reactive Protein Albumin 2.8 L Triglycerides Cholesterol HDL Cholesterol Arterial Blood Glucose Arterial Blood Ionized Calcium Urine WBC (Auto) Salicylates Acetaminophen Hepatitis C Antibody 04/20/20 04/21/20 04/21/20 07:50 00:42 04:32 WBC 16.4 H RBC 3.37 L Hgb 9.7 L Hct 30.0 L RDW 15.6 H Plt Count 597 H Seg Neuts % (Manual) Lymphocytes % (Manual) Basophils % (Manual) Seg Neutrophils # Man Lymphocytes # (Manual) Monocytes # (Manual) Eosinophils # (Manual) Basophils # (Manual) D-Dimer ABG pH POC ABG pCO2 POC ABG pO2 ABG pO2 ABG HCO3 ABG Base Excess ABG Hemoglobin ABG Oxyhemoglobin ABG Sodium ABG Chloride ABG Glucose Oxyhemoglobin Sodium Potassium Chloride Carbon Dioxide 31 H BUN Creatinine 2.8 H Glucose POC Glucose 119 H Calcium Magnesium Ferritin Alkaline Phosphatase Lactate Dehydrogenase Total Creatine Kinase Troponin T C-Reactive Protein Albumin Triglycerides Cholesterol HDL Cholesterol Arterial Blood Glucose Arterial Blood Ionized Calcium Urine WBC (Auto) Salicylates Acetaminophen Hepatitis C Antibody 04/21/20 04/21/20 04/21/20 04:32 16:30 17:43 WBC RBC Hgb Hct RDW Plt Count Seg Neuts % (Manual) Lymphocytes % (Manual) Basophils % (Manual) Seg Neutrophils # Man Lymphocytes # (Manual) Monocytes # (Manual) Eosinophils # (Manual) Basophils # (Manual) D-Dimer ABG pH POC ABG pCO2 POC ABG pO2 ABG pO2 ABG HCO3 ABG Base Excess ABG Hemoglobin ABG Oxyhemoglobin ABG Sodium ABG Chloride ABG Glucose Oxyhemoglobin Sodium Potassium Chloride Carbon Dioxide BUN 25 H Creatinine 3.9 H Glucose 106 H POC Glucose 149 H 171 H Calcium Magnesium Ferritin Alkaline Phosphatase 324 H Lactate Dehydrogenase Total Creatine Kinase Troponin T C-Reactive Protein Albumin 3.0 L Triglycerides Cholesterol HDL Cholesterol Arterial Blood Glucose Arterial Blood Ionized Calcium Urine WBC (Auto) Salicylates Acetaminophen Hepatitis C Antibody 04/22/20 04/22/20 04/22/20 00:59 03:50 03:50 WBC 15.5 H RBC Hgb Hct RDW Plt Count 629 H Seg Neuts % (Manual) Lymphocytes % (Manual) Basophils % (Manual) Seg Neutrophils # Man Lymphocytes # (Manual) Monocytes # (Manual) Eosinophils # (Manual) Basophils # (Manual) D-Dimer ABG pH POC ABG pCO2 POC ABG pO2 ABG pO2 ABG HCO3 ABG Base Excess ABG Hemoglobin ABG Oxyhemoglobin ABG Sodium ABG Chloride ABG Glucose Oxyhemoglobin Sodium Potassium Chloride Carbon Dioxide BUN Creatinine 2.6 H Glucose 131 H POC Glucose 128 H Calcium Magnesium Ferritin Alkaline Phosphatase Lactate Dehydrogenase Total Creatine Kinase Troponin T C-Reactive Protein Albumin Triglycerides Cholesterol HDL Cholesterol Arterial Blood Glucose Arterial Blood Ionized Calcium Urine WBC (Auto) Salicylates Acetaminophen Hepatitis C Antibody 04/22/20 04/22/20 04/22/20 05:38 07:50 11:44 WBC RBC Hgb Hct RDW Plt Count Seg Neuts % (Manual) Lymphocytes % (Manual) Basophils % (Manual) Seg Neutrophils # Man Lymphocytes # (Manual) Monocytes # (Manual) Eosinophils # (Manual) Basophils # (Manual) D-Dimer ABG pH POC ABG pCO2 POC ABG pO2 ABG pO2 ABG HCO3 ABG Base Excess ABG Hemoglobin ABG Oxyhemoglobin ABG Sodium ABG Chloride ABG Glucose Oxyhemoglobin Sodium Potassium Chloride Carbon Dioxide BUN Creatinine Glucose POC Glucose 115 H 147 H 175 H Calcium Magnesium Ferritin Alkaline Phosphatase Lactate Dehydrogenase Total Creatine Kinase Troponin T C-Reactive Protein Albumin Triglycerides Cholesterol HDL Cholesterol Arterial Blood Glucose Arterial Blood Ionized Calcium Urine WBC (Auto) Salicylates Acetaminophen Hepatitis C Antibody 04/22/20 04/23/20 04/23/20 16:41 00:12 08:26 WBC RBC Hgb Hct RDW Plt Count Seg Neuts % (Manual) Lymphocytes % (Manual) Basophils % (Manual) Seg Neutrophils # Man Lymphocytes # (Manual) Monocytes # (Manual) Eosinophils # (Manual) Basophils # (Manual) D-Dimer ABG pH POC ABG pCO2 POC ABG pO2 ABG pO2 ABG HCO3 ABG Base Excess ABG Hemoglobin ABG Oxyhemoglobin ABG Sodium ABG Chloride ABG Glucose Oxyhemoglobin Sodium Potassium Chloride Carbon Dioxide BUN Creatinine Glucose POC Glucose 180 H 175 H Calcium Magnesium Ferritin Alkaline Phosphatase 308 H Lactate Dehydrogenase Total Creatine Kinase Troponin T C-Reactive Protein Albumin 3.2 L Triglycerides Cholesterol HDL Cholesterol Arterial Blood Glucose Arterial Blood Ionized Calcium Urine WBC (Auto) Salicylates Acetaminophen Hepatitis C Antibody 04/23/20 04/23/20 04/23/20 08:44 12:36 16:43 WBC RBC Hgb Hct RDW Plt Count Seg Neuts % (Manual) Lymphocytes % (Manual) Basophils % (Manual) Seg Neutrophils # Man Lymphocytes # (Manual) Monocytes # (Manual) Eosinophils # (Manual) Basophils # (Manual) D-Dimer ABG pH POC ABG pCO2 POC ABG pO2 ABG pO2 ABG HCO3 ABG Base Excess ABG Hemoglobin ABG Oxyhemoglobin ABG Sodium ABG Chloride ABG Glucose Oxyhemoglobin Sodium Potassium Chloride Carbon Dioxide BUN Creatinine Glucose POC Glucose 171 H 165 H 196 H Calcium Magnesium Ferritin Alkaline Phosphatase Lactate Dehydrogenase Total Creatine Kinase Troponin T C-Reactive Protein Albumin Triglycerides Cholesterol HDL Cholesterol Arterial Blood Glucose Arterial Blood Ionized Calcium Urine WBC (Auto) Salicylates Acetaminophen Hepatitis C Antibody Allied health notes reviewed: RT
[2020-04-24] MEDS: INSULIN REGULAR, HUMAN 100 UNIT/ML 3ML VIAL SUB-Q SCH ×4 (02:51→22:41)
[2020-04-24] MEDS: METOCLOPRAMIDE 10 MG/2 ML INJ IV SCH ×4 (03:00→22:37)
[2020-04-24] MEDS: CALCIUM ACETATE 667 MG CAP PO SCH ×3 (08:37→22:41)
[2020-04-24] MEDS: HEPARIN 5,000 UNIT/1 ML VIAL SUB-Q SCH ×2 (09:03→22:40)
--- NOTE | 2020-04-24 09:08 | Progress Note ---
Assessment and Plan Impression: * End stage renal disease * Sepsis * Positive blood cx - likely contaminant --Blood cx: staph epi (05/29 bottles - Apr 06) * Acute hypoxic respiratory failure * Acute encephalopathy * Acute ischemic stroke * UTI * Hx of COVID 19 --SARS Cov2 PCR negative Apr 07 * Metabolic acidosis Plan: * Continue hemodialysis on MWF, due today * UF as tolerated * Abx per ID, input reviewed * neurology notes reviewed * Dose medications for renal function Subjective Date of service: 04/24/20 Principal diagnosis: Ac on ch hypoxemic and hypercapnic resp failure; PUI COVID- 19 infxn; AMS Interval history: Patient is currently n.p.o. Complains of dry mouth. Denies any shortness of breath. No nausea vomiting or diarrhea. Objective - Vital Signs Vital signs: Vital Signs - 12hr 04/23/20 04/23/20 04/24/20 22:00 23:49 01:00 Temperature 98.1 F Pulse Rate 98 H 104 H Respiratory 17 16 Rate Blood Pressure 193/54 O2 Sat by Pulse 98 100 Oximetry 04/24/20 03:39 Temperature 97.7 F Pulse Rate 110 H Respiratory 18 Rate Blood Pressure 198/64 O2 Sat by Pulse 97 Oximetry - General Appearance General appearance: well-developed, well-nourished, appears stated age EENT: PERRL, mucous membranes dry Neck: no JVD, no thyromegaly, no carotid bruit, supple, other (Right IJ PermCath in place) Respiratory: Present: Clear to Ascultation Cardiology: regular, normal heart rate, S1S2, no murmurs Gastrointestinal: normal, normoactive bowel sounds Integumentary: no rash, other (Bilateral below-knee amputation) - Lab 04/22/20 03:50 04/22/20 03:50 Most recent lab results ABG pH 7.486 (7.320-7.450) H 04/18/20 03:23 ABG pCO2 54.0 mm Hg 04/11/20 03:44 ABG pO2 73.4 mm Hg (80.0-90.0) L 04/11/20 03:44 ABG HCO3 26.7 mmol/L (20.0-26.0) H 04/11/20 03:44 ABG O2 Saturation 95.0 % (95.0-99.0) 04/11/20 03:44 Calcium 9.1 mg/dL (8.4-10.2) 04/22/20 03:50 Phosphorus 3.00 mg/dL (2.5-4.5) 04/17/20 05:44 Magnesium 2.00 mg/dL (1.7-2.3) 04/17/20 05:44 Medications & Allergies - Medications Allergies/Adverse Reactions: Allergies carrot Allergy (Verified 07/28/19 12:30) Hives erythromycin base Allergy (Verified 07/30/19 11:26) Hives latex Allergy (Verified 02/18/19 13:20) Rash peas Allergy (Verified 12/20/19 12:37) Hives vancomycin Allergy (Verified 12/31/19 15:46) Hives Home Medications: Home Medications Medication Instructions Recorded Confirmed Last Taken Type Aripiprazole 5 mg PO DAILY 02/18/19 04/06/20 02/17/19 History Benadryl CAP 25 mg PO Q8H PRN 02/18/19 04/06/20 02/17/19 History Calcium Acetate 667 mg PO TIDWM 02/18/19 04/06/20 02/17/19 History Carvedilol 6.25 mg PO Q12H 02/18/19 04/06/20 02/17/19 History Colace CAP 100 mg PO Q12H PRN 02/18/19 04/06/20 02/17/19 History Esomeprazole Magnesium 40 mg PO QDAC 02/18/19 04/06/20 02/17/19 History HumaLOG 10 units SUB-Q TIDWM 02/18/19 04/06/20 02/17/19 History Insulin Detemir (Nf) [Levemir See Protocol SQ QHS 02/18/19 04/06/20 02/17/19 History Flextouch (Nf)] Losartan Potassium 50 mg PO DAILY 02/18/19 04/06/20 02/17/19 History Lyrica 75 mg PO Q12H 02/18/19 04/06/20 02/17/19 History Melatonin 6 mg PO QHS 02/18/19 04/06/20 02/17/19 History Senna 17.2 mg PO QHS PRN 02/18/19 04/06/20 02/17/19 History Venlafaxine HCl [Venlafaxine HCl 150 mg PO QDAC 02/18/19 04/06/20 02/17/19 History ER] Vitamin C 250 mg PO DAILY 02/18/19 04/06/20 02/17/19 History ZyrTEC 10mg cap 10 mg PO DAILY 02/18/19 04/06/20 02/17/19 History Calcium Acetate [Phoslo] 667 mg PO TIDWM capsule 12/22/19 04/06/20 Unknown Rx Fe Fumarate/FA/Mv, Min Comb#15 1 each PO QDAY capsule 12/22/19 04/06/20 Unknown Rx [Hemocyte Plus] Albuterol Mdi (or & Nicu Only) 2.5 puff IH Q4HRT PRN inha 01/12/20 04/06/20 Unknown Rx [ProAir HFA Inhaler] dexAMETHasone [Decadron] 6 mg PO Q12HR #10 tablet 01/12/20 04/06/20 Unknown Rx oxyCODONE 5 mg PO Q6H PRN #10 01/12/20 04/06/20 Unknown Rx Active Medications: Generic Name Dose Route Start Last Admin Trade Name Freq PRN Reason Stop Dose Admin Acetaminophen 650 mg 04/06/20 16:39 Tylenol PO Q6H PRN Pain, Mild (1-3) Albuterol 2.5 puff 04/22/20 12:13 Proair IH Q4HRT PRN Shortness Of Breath Aripiprazole 5 mg 04/23/20 10:00 04/23/20 09:50 Aripiprazole PO Not Given DAILY NOEL Calcium Acetate 667 mg 04/22/20 17:00 04/23/20 16:44 Phoslo PO Not Given TIDWM NOEL Carvedilol 6.25 mg 04/13/20 22:00 04/23/20 21:38 Coreg PO Not Given BID NOEL Clonidine HCl 0.1 mg 04/25/20 08:00 Catapres-Tts Patch TD Tu NOEL Dextrose 50 ml 04/09/20 16:30 D50w (25gm) Syringe IV Q30MIN PRN Hypoglycemia Protocol Docusate Sodium 100 mg 04/22/20 12:17 Colace PO Q12H PRN Constipation Famotidine 20 mg 04/07/20 10:00 04/23/20 09:52 Pepcid PO Not Given QDAY [facility] Heparin Sodium (Porcine) 5,000 unit 04/06/20 22:00 04/24/20 09:03 Heparin SUB-Q 5,000 unit Q12HR [facility] Administration Hydromorphone HCl 1 mg 04/18/20 14:22 04/23/20 21:40 Dilaudid IV 1 mg Q4H PRN Administration Pain , Severe (7-10) Hydrophilic Ointment 1 applic 04/06/20 13:34 Vaseline Lip Therapy TP Q2HR PRN Dry Lips Sodium Chloride 100 mls @ 999 mls/hr 04/07/20 17:00 Nacl 0.9% IV SPRING PRN Hypotension Dextrose/Sodium Chloride 1,000 mls @ 42 mls/hr 04/20/20 13:00 04/23/20 09:28 D5ns IV 42 mls/hr DIRECT [facility] Administration Insulin Glargine 10 units 04/17/20 10:00 04/23/20 12:35 Lantus SUB-Q Not Given Q24HR [facility] Insulin Human Regular 0 unit 04/09/20 18:00 04/24/20 02:51 Humulin R SUB-Q Not Given Q6H [facility] Protocol Labetalol HCl 10 mg 04/08/20 17:17 04/23/20 16:49 Labetalol IV 10 mg Q4H PRN Administration Blood Pressure Losartan Potassium 25 mg 04/22/20 15:00 04/23/20 09:51 Cozaar PO Not Given QDAY [facility] Metoclopramide HCl 5 mg 04/23/20 08:00 04/24/20 08:58 Reglan IV 04/25/20 07:59 5 mg Q6H [facility] Administration Multi-Ingred Cream/Lotion/Oil/Oint 1 applic 04/06/20 13:34 Artificial Tears Ophth Oint OU Q4HR PRN Dry Eye(s) Multivitamins/Iron 1 each 04/23/20 10:00 04/23/20 09:50 Hemocyte Plus PO Not Given QDAY [facility] Ondansetron HCl 4 mg 04/18/20 07:45 04/22/20 15:14 Zofran IV 4 mg Q4H PRN Administration Nausea And Vomiting Pantoprazole Sodium 40 mg 04/23/20 07:30 04/23/20 09:50 Protonix PO Not Given QDAC NOEL Sodium Chloride 10 ml 04/06/20 22:00 04/23/20 21:38 Sodium Chloride Flush Syringe 10 Ml IV 10 ml BID NOEL Administration Sodium Chloride 10 ml 04/06/20 16:32 04/21/20 20:15 Sodium Chloride Flush Syringe 10 Ml IV 10 ml PRN PRN Administration LINE FLUSH
[2020-04-24] MEDS: INSULIN GLARGINE 100 UNITS/ML SUB-Q SCH (09:09)
--- NOTE | 2020-04-24 10:08 | Progress Note ---
Assessment and Plan Assessment and plan: 49 years old female with history of asthma, hypertension, end-stage renal disease on hemodialysis, diabetes mellitus, bipolar disorder, morbid obesity, CVA, resident [facility] a [facility], admitted on 04/06/2020 secondary to be found Unresponsiveness after hemodialysis. Patient is unable to provide history, currently intubated. Patient received hemodialysis and after completion she became unresponsive. Upon EMS arrival, blood pressure was 90/60, HR 88, temperature 97.2. Per records, patient was not complaining of any symptoms. On arrival, temperature 94.1, HR 66, RR 18, O2 sat 87%, BP 131/111. Initial WBC 19.2. Urinalysis showed more than 182 WBCs and moderate leukocyte esterase. Chest x-ray shows bibasilar infiltrates. Patient was intubated in the emergency room to protect airway. Bains catheter was placed yielding purulent urine. Severe sepsis. Present on admission with hypothermia, leukocytosis, altered mental status, likely due to bilateral pneumonia. F/U Blood Cx. Cont. Abx pre ID Bilateral pneumonia. Aspiration pneumonia/HAP illness induced Gastroparesis: Stable Severe UTI. Bains catheter with purulent urine. Acute hypoxemic and hypercapnic respiratory failure. Intubated for airway protection, O2 sats down to 87%. Acute toxic metabolic encephalopathy. Etiology secondary to sepsis Bibasilar atelectasis, End-stage renal disease on hemodialysis Anemia of chronic renal disease vancomycin allergy ? Causing hives. PER ID documentation at other hosptial does not show vanc allergy Chronic leukocytosis, appears so based on review of records from here and [facility] in the past were reviewed. Chronic Hepatitis C: treatment status unknown. F/U HCV RNA PCR. Extensive Candidal intertrigo in groin and vagina. Cont. Fluconazole Intractable nausea with vomiting. 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 Patient remains intubated on mechanical ventilation with AC mode ventilation rate 12, tidal volume 450, FiO2 40% and a PEEP of 6. Continue weaning per protocols. Patient with ESRD and continue TTS schedule per nephrology. Patient does have a history of COVID-19 infection(01/07/20) but negative testing April 07. Follow-up blood/urine/sputum culture. Continue antibiotics per ID recommendations. 04/09/2020. Patient not tolerating PSV 12/6 with FiO2 of 30%. Continue hemod ialysis per nephrology recommendations. Continue IV antibiotics per ID recommendations. Blood cultures no growth to date. Respiratory therapy reports patient with accelerated hypertension and apneic episodes on PSV ventilation. Await pulmonary recommendations. 04/10/2020. Patient remains on mechanical ventilation AC mode rate 12, tidal volume 450, FiO2 30% and a PEEP of 6. Continue PSV trials per protocols. Continue hemodialysis per nephrology recommendations. Continue anti-infectives of fluconazole and cefepime. Follow-up blood/urine/sputum culture. ID, pulmonary and nephrology following. 04/11/2020; patient remains on mechanical ventilation AC mode rate 12, tidal volume 450, FiO2 of 30 and PEEP of 6. Continue PSV trials per protocols. continue hemodialysis per nephrology. ID changed antibiotics to meropenem. Blood culture grew staph epidermidis likey contaminant. 04/12/2020; patient is intubated, patient open eyes spontaneously. Neurology consulted and continue on replacement treatment. EEG is pending. Recommend MRI. Patient is on meropenem per ID recommendation. Pulmonary is following. Patient is on spontaneous breathing trial 04/13/2020; patient is intubated. Patient's blood pressure was high yesterday, amlodipine and hydralazine was added. Overnight his blood pressure was low and will also BP medications. We will continue to follow. 04/14/2020; patient is intubated and blood pressure is on the low side of normal. Patient is on meropenem 5/5. 04/15/2020; patient is intubated, on spontaneous breathing trial. Pulmonary is following. neurology recommend MRI. 04/16/2020; patient is intubated, on spontaneous breathing trial. Pulmonary is following. Neurology recommend MRI once stable. 04/17: Patient showing some clinical improvement. MRI still pending. Continues on restraints weaning trial today. Antibiotics per ID continue aspiration precautions although management by critical care physician. Noted elevated D- dimer level with trend. See ultrasound of the lower extremity was negative for DVT. Prior hospitalization showed elevated D-dimer also. Will discuss with nephrology if patient needs CTA to see if this can be managed with dialysis. This will be done if patient is unable to wean from the vent due to hypoxia. 04/18: Patient required re-intubation last night due to self extubation and decompensation with hypoxia. CXR post extubation showed tube in expected position. Patient also noted to have large projectile vomiting. - Obtain KUB - start Zofran - Hold tube feeds - May benefit from GI eval if vomiting continues. - She is currently being treated for Aspiration Pneumonia with bactermia and Acute cystitis 04/19: Now extubated, Continue supportive care and aspiration precautions. Patient complaining of chronic pain, will resume home dose pain meds and avoid oversedation. No new seizure noted. still awaiting MRI brain. GI input noted: illness induced gastropoaresis, otherwise KUB and LFT normal, will start low fat fiber diet once patient able to tolerate PO. Continue to monitor WBC, increased again today. out patient Loom Fixer. Unless indicated by Intesivist will like to monitor patient in the ICU for additional 24 hrs before downgrading. 04/20: CONTINUE Aspiration precautions, started on D5NS for low Blood glucose. Speech re-eval today. PAIN CONTROL 04/21: Continue aspiration precautions. Blood sugar stable continue to monitor WBC count. Will reassess with speech evaluation continue restraints due to aggressive behavior towards nurses and pulling on shelving. Monitor mental status. 04/22: patient complains of nasuea, will start on Reglan IV prn. CONTINUE supportive care. 04/23: Patient continues on restraints. She tells me that she has a history of Gastroparesis. Will start IV reglan., check ct abdomen and pelvis. repeat speech eval and may need PEG if still not tolerating Diet. She will benefit from a safety belt installer 04/24: Awaiting repeat speech evaluation. Office summary patient was admitted on 04/06/2020 with unresponsiveness after hemodialysis and no [facility] resident and also with noted-gastroparesis. Patient was treated for fluid overload also with some antibiotics including antifungal. Cultures were unremarkable. CT of the abdomen repeated yesterday showed some perinephric stranding with patchy bibasilar airspace disease concerning for pneumonia. Will place empirically on Keflex. And monitor closely. If patient passes swallow evaluation can work on discharge back to [facility] tomorrow if not GI should be consulted for possible PEG placement. Mental status is improving. History Interval history: Patient seen and examined, still with intermittent confusion. Awaiting repeat swallow evaluation patient for HD today Hospitalist Physical - Physical exam Narrative exam: VITAL SIGNS: Reviewed. GENERAL: The patient appears normally developed, lethargic with Nasal cannula, vital signs as documented. HEAD: No signs of head trauma. EYES: Pupils are equal. Extraocular motions intact. EARS: Hearing grossly intact. MOUTH: Oropharynx is normal. face mask on. NECK: No adenopathy, no JVD. CHEST: Chest with transmitted breath sounds bilaterally. No wheezes, rales, or rhonchi. CARDIAC: Regular rate and rhythm. S1 and S2, without murmurs, gallops, or rubs. VASCULAR: No Edema. Peripheral pulses normal and equal in all extremities. ABDOMEN: Soft, non tender and non distended. No rebound or guarding, and no masses palpated. Bowel Sounds normal. MUSCULOSKELETAL: Bilateral BKA NEUROLOGIC EXAM: Awake, lethargic ORIENTED to person place and time. Follows some commands. PSYCHIATRIC: Mood normal. SKIN: detail exam as documented in skin assessment - Constitutional Vitals: Temp Pulse Resp BP Pulse Ox 100.0 F H 103 H 20 171/88 91 04/24/20 08:17 04/24/20 10:00 04/24/20 08:17 04/24/20 10:00 04/24/20 08:17 General appearance: Present: severe distress, other (Intubated on mechanical ventilation) HEART Score - HEART Score Troponin: Troponin T 0.224 ng/mL (0.00-0.029) H* 04/06/20 14:30 Results - Labs CBC & Chem 7: 04/22/20 03:50 04/22/20 03:50 Labs: Laboratory Last Values WBC 15.5 K/mm3 (4.5-11.0) H 04/22/20 03:50 RBC 3.71 M/mm3 (3.65-5.03) 04/22/20 03:50 Hgb 10.9 gm/dl (10.1-14.3) 04/22/20 03:50 Hct 32.9 % (30.3-42.9) 04/22/20 03:50 MCV 89 fl (79-97) 04/22/20 03:50 MCH 29 pg (28-32) 04/22/20 03:50 MCHC 33 % (30-34) 04/22/20 03:50 RDW 15.1 % (13.2-15.2) 04/22/20 03:50 Plt Count 629 K/mm3 (140-440) H 04/22/20 03:50 Add Manual Diff Complete 04/17/20 05:44 Total Counted 100 04/17/20 05:44 Seg Neuts % (Manual) 81.0 % (40.0-70.0) H 04/17/20 05:44 Band Neutrophils % 0 % 04/17/20 05:44 Lymphocytes % (Manual) 11.0 % (13.4-35.0) L 04/17/20 05:44 Reactive Lymphs % (Man) 0 % 04/17/20 05:44 Monocytes % (Manual) 3.0 % (0.0-7.3) 04/17/20 05:44 Eosinophils % (Manual) 3.0 % (0.0-4.3) 04/17/20 05:44 Basophils % (Manual) 1.0 % (0.0-1.8) 04/17/20 05:44 Metamyelocytes % 0 % 04/17/20 05:44 Myelocytes % 1.0 % 04/17/20 05:44 Promyelocytes % 0 % 04/17/20 05:44 Blast Cells % 0 % 04/17/20 05:44 Nucleated RBC % Not Reportable 04/17/20 05:44 Seg Neutrophils # Man 15.8 K/mm3 (1.8-7.7) H 04/17/20 05:44 Band Neutrophils # 0.0 K/mm3 04/17/20 05:44 Lymphocytes # (Manual) 2.1 K/mm3 (1.2-5.4) 04/17/20 05:44 Abs React Lymphs (Man) 0.0 K/mm3 04/17/20 05:44 Monocytes # (Manual) 0.6 K/mm3 (0.0-0.8) 04/17/20 05:44 Eosinophils # (Manual) 0.6 K/mm3 (0.0-0.4) H 04/17/20 05:44 Basophils # (Manual) 0.2 K/mm3 (0.0-0.1) H 04/17/20 05:44 Metamyelocytes # 0.0 K/mm3 04/17/20 05:44 Myelocytes # 0.2 K/mm3 04/17/20 05:44 Promyelocytes # 0.0 K/mm3 04/17/20 05:44 Blast Cells # 0.0 K/mm3 04/17/20 05:44 WBC Morphology Not Reportable 04/17/20 05:44 Hypersegmented Neuts Not Reportable 04/17/20 05:44 Hyposegmented Neuts Not Reportable 04/17/20 05:44 Hypogranular Neuts Not Reportable 04/17/20 05:44 Smudge Cells Not Reportable 04/17/20 05:44 Toxic Granulation Not Reportable 04/17/20 05:44 Toxic Vacuolation Not Reportable 04/17/20 05:44 Dohle Bodies Not Reportable 04/17/20 05:44 Pelger-Huet Anomaly Not Reportable 04/17/20 05:44 Stephanie Rods Not Reportable 04/17/20 05:44 Platelet Estimate Consistent w auto 04/17/20 05:44 Clumped Platelets Not Reportable 04/17/20 05:44 Plt Clumps, EDTA Not Reportable 04/17/20 05:44 Large Platelets Not Reportable 04/17/20 05:44 Giant Platelets Not Reportable 04/17/20 05:44 Platelet Satelliting Not Reportable 04/17/20 05:44 Plt Morphology Comment Not Reportable 04/17/20 05:44 RBC Morphology Normal 04/17/20 05:44 Dimorphic RBCs Not Reportable 04/17/20 05:44 Polychromasia Not Reportable 04/17/20 05:44 Hypochromasia Not Reportable 04/17/20 05:44 Poikilocytosis Not Reportable 04/17/20 05:44 Anisocytosis Not Reportable 04/17/20 05:44 Microcytosis Not Reportable 04/17/20 05:44 Macrocytosis Not Reportable 04/17/20 05:44 Spherocytes Few 04/17/20 05:44 Pappenheimer Bodies Not Reportable 04/17/20 05:44 Sickle Cells Not Reportable 04/17/20 05:44 Target Cells Not Reportable 04/17/20 05:44 Tear Drop Cells Not Reportable 04/17/20 05:44 Ovalocytes Not Reportable 04/17/20 05:44 Stomatocytes Few 04/12/20 08:14 Helmet Cells Not Reportable 04/17/20 05:44 [place] Bodies Not Reportable 04/17/20 05:44 [place] Rings Not Reportable 04/17/20 05:44 Michael Cells Not Reportable 04/17/20 05:44 Bite Cells Not Reportable 04/17/20 05:44 Crenated Cell Not Reportable 04/17/20 05:44 Elliptocytes Not Reportable 04/17/20 05:44 Acanthocytes (Spur) Not Reportable 04/17/20 05:44 Rouleaux Not Reportable 04/17/20 05:44 Hemoglobin C Crystals Not Reportable 04/17/20 05:44 Schistocytes Not Reportable 04/17/20 05:44 Malaria parasites Not Reportable 04/17/20 05:44 Cl Bodies Not Reportable 04/17/20 05:44 Hem Pathologist Commnt No 04/17/20 05:44 PT 13.8 Sec. (12.2-14.9) 04/06/20 14:30 INR 1.04 (0.87-1.13) 04/06/20 14:30 APTT 28.1 Sec. (24.2-36.6) 04/06/20 14:30 D-Dimer 1144.77 ng/mlDDU (0-234) H 04/18/20 06:48 ABG pH 7.486 (7.320-7.450) H 04/18/20 03:23 POC ABG pCO2 40.7 mmHg (32.0-48.0) 04/18/20 03:23 ABG pCO2 54.0 mm Hg 04/11/20 03:44 POC ABG pO2 56.4 mmHg (83-108) L 04/18/20 03:23 ABG pO2 73.4 mm Hg (80.0-90.0) L 04/11/20 03:44 POC ABG HCO3 30.0 04/18/20 03:23 ABG HCO3 26.7 mmol/L (20.0-26.0) H 04/11/20 03:44 ABG O2 Saturation 95.0 % (95.0-99.0) 04/11/20 03:44 ABG O2 Content 14.4 (0.0-44) 04/11/20 03:44 POC ABG Base Excess 6.1 04/18/20 03:23 ABG Base Excess -0.1 mmol/L (-2.0-3.0) 04/11/20 03:44 ABG Hemoglobin 11.2 (12.0-17.5) L 04/18/20 03:23 ABG Oxyhemoglobin 92.0 (94-98) L 04/18/20 03:23 ABG Carboxyhemoglobin 1.6 % (0.0-5.0) 04/11/20 03:44 ABG Methemoglobin 0.3 (0.0-1.5) 04/18/20 03:23 ABG Sodium 135.1 mmol/L (136.0-145.0) L 04/18/20 03:23 ABG Potassium 4.1 mmol/L (3.40-4.50) 04/18/20 03:23 ABG Chloride 100.0 mmol/L (98-107) 04/18/20 03:23 ABG Glucose 138 mg/dL (65-95) H 04/18/20 03:23 Oxyhemoglobin 92.8 % (95.0-99.0) L 04/11/20 03:44 Carboxyhemoglobin 0.6 (0.5-1.5) 04/18/20 03:23 FiO2 40 04/18/20 03:23 Sodium 140 mmol/L (137-145) 04/22/20 03:50 Potassium 4.2 mmol/L (3.6-5.0) 04/22/20 03:50 Chloride 98.0 mmol/L (98-107) 04/22/20 03:50 Carbon Dioxide 27 mmol/L (22-30) 04/22/20 03:50 Anion Gap 19 mmol/L 04/22/20 03:50 BUN 15 mg/dL (7-17) 04/22/20 03:50 Creatinine 2.6 mg/dL (0.6-1.2) H 04/22/20 03:50 Estimated GFR 19 ml/min 04/22/20 03:50 BUN/Creatinine Ratio 6 % 04/22/20 03:50 Glucose 131 mg/dL (65-100) H 04/22/20 03:50 POC Glucose 165 mg/dL (70-105) H 04/24/20 09:09 Lactic Acid 0.90 mmol/L (0.7-2.0) 04/13/20 19:10 Calcium 9.1 mg/dL (8.4-10.2) 04/22/20 03:50 Phosphorus 3.00 mg/dL (2.5-4.5) 04/17/20 05:44 Magnesium 2.00 mg/dL (1.7-2.3) 04/17/20 05:44 Ferritin 743.0 ng/mL (10.0-200.0) H 04/07/20 09:34 Total Bilirubin 0.30 mg/dL (0.1-1.2) 04/23/20 08:26 Direct Bilirubin < 0.2 mg/dL (0-0.2) 04/23/20 08:26 Indirect Bilirubin 0.1 mg/dL 04/23/20 08:26 AST 15 units/L (5-40) 04/23/20 08:26 ALT 10 units/L (7-56) 04/23/20 08:26 Alkaline Phosphatase 308 units/L (35-129) H 04/23/20 08:26 Ammonia 43.0 umol/L (25-60) 04/06/20 14:30 Lactate Dehydrogenase 195 units/L (91-180) H 04/07/20 09:34 Total Creatine Kinase 23 units/L (30-135) L 04/06/20 14:30 Total Creatine Kinase 24 units/L (30-135) L 04/06/20 14:30 Troponin T 0.224 ng/mL (0.00-0.029) H* 04/06/20 14:30 C-Reactive Protein 7.50 mg/dL (0.00-1.30) H 04/07/20 09:34 Total Protein 8.2 g/dL (6.3-8.2) 04/23/20 08:26 Albumin 3.2 g/dL (3.9-5) L 04/23/20 08:26 Albumin/Globulin Ratio 0.6 % 04/23/20 08:26 Triglycerides 342 mg/dL (2-149) H 04/06/20 14:30 Cholesterol 223 mg/dL (50-199) H 04/06/20 14:30 LDL Cholesterol Direct 123 mg/dL (50-130) 04/06/20 14:30 HDL Cholesterol 35 mg/dL (40-59) L 04/06/20 14:30 Cholesterol/HDL Ratio 6.37 % 04/06/20 14:30 Procalcitonin 1.59 ng/mL (<0.15) 04/13/20 19:10 TSH 1.320 mlU/mL (0.270-4.200) 04/06/20 14:30 HCG, Qual Negative (Negative) 04/06/20 14:30 Arterial Blood Glucose 138 mg/dL (65-95) H 04/18/20 03:23 Arterial Blood Ionized Calcium 4.5 mg/dL (4.6-5.3) L 04/18/20 03:23 Urine Color Yellow (Yellow) 04/06/20 13:34 Urine Turbidity Turbid (Clear) 04/06/20 13:34 Urine pH 7.0 (5.0-7.0) 04/06/20 13:34 Ur Specific [place] 1.017 (1.003-1.030) 04/06/20 13:34 Urine Protein 100 mg/dl mg/dL (Negative) 04/06/20 13:34 Urine Glucose (UA) 50 mg/dL (Negative) 04/06/20 13:34 Urine Ketones Tr mg/dL (Negative) 04/06/20 13:34 Urine Blood Sm (Negative) 04/06/20 13:34 Urine Nitrite Neg (Negative) 04/06/20 13:34 Urine Bilirubin Neg (Negative) 04/06/20 13:34 Urine Urobilinogen < 2.0 mg/dL (<2.0) 04/06/20 13:34 Ur Leukocyte Esterase Mod (Negative) 04/06/20 13:34 Urine WBC (Auto) > 182.0 /HPF (0.0-6.0) H 04/06/20 13:34 Urine RBC (Auto) 49.0 /HPF (0.0-6.0) 04/06/20 13:34 U Epithel Cells (Auto) 6.0 /HPF (0-13.0) 04/06/20 13:34 Urine Bacteria (Auto) 2+ /HPF (Negative) 04/06/20 13:34 Urine WBC Clumps 3+ /HPF 04/06/20 13:34 Urine Mucus 3+ /HPF 04/06/20 13:34 Salicylates < 0.3 mg/dL (2.8-20.0) L 04/06/20 14:30 Acetaminophen 5.0 ug/mL (10.0-30.0) L 04/06/20 14:30 Plasma/Serum Alcohol < 0.01 % (0-0.07) 04/06/20 14:30 Coronavirus (PCR) Negative (Negative) 04/07/20 Unknown Hepatitis A IgM Ab Non-reactive (NonReactive) 04/07/20 16:38 Hep Bs Antigen Non-reactive (Negative) 04/07/20 16:38 Hep B Core IgM Ab Non-reactive (NonReactive) 04/07/20 16:38 Hepatitis C Antibody Reactive (NonReactive) A 04/07/20 16:38 Blood Type O POSITIVE 04/06/20 14:30 Antibody Screen Negative 04/06/20 14:30 Bains/IV: Voiding Method Incontinent IV Catheter Type [Right Hand] INT / Saline Lock IV Catheter Type [Left Forearm INT / Saline Lock ] IV Catheter Type [Right VAS Cath Subclavian] IV Catheter Type [Left INT / Saline Lock Antecubital] IV Catheter Type [Right INT / Saline Lock Forearm] Active Medications - Current Medications Current Medications: Generic Name Dose Route Start Last Admin Trade Name Freq PRN Reason Stop Dose Admin Acetaminophen 650 mg 04/06/20 16:39 Tylenol PO Q6H PRN Pain, Mild (1-3) Albuterol 2.5 puff 04/22/20 12:13 Proair IH Q4HRT PRN Shortness Of Breath Aripiprazole 5 mg 04/23/20 10:00 04/23/20 09:50 Aripiprazole PO Not Given DAILY [facility] Calcium Acetate 667 mg 04/22/20 17:00 04/23/20 16:44 Phoslo PO Not Given TIDWM [facility] Carvedilol 6.25 mg 04/13/20 22:00 04/23/20 21:38 Coreg PO Not Given BID [facility] Clonidine HCl 0.1 mg 04/25/20 08:00 Catapres-Tts Patch TD Tu [facility] Dextrose 50 ml 04/09/20 16:30 D50w (25gm) Syringe IV Q30MIN PRN Hypoglycemia Protocol Docusate Sodium 100 mg 04/22/20 12:17 Colace PO Q12H PRN Constipation Famotidine 20 mg 04/07/20 10:00 04/23/20 09:52 Pepcid PO Not Given QDAY [facility] Heparin Sodium (Porcine) 5,000 unit 04/06/20 22:00 04/24/20 09:03 Heparin SUB-Q 5,000 unit Q12HR NOEL Administration Hydromorphone HCl 1 mg 04/18/20 14:22 04/23/20 21:40 Dilaudid IV 1 mg Q4H PRN Administration Pain , Severe (7-10) Hydrophilic Ointment 1 applic 04/06/20 13:34 Vaseline Lip Therapy TP Q2HR PRN Dry Lips Sodium Chloride 100 mls @ 999 mls/hr 04/07/20 17:00 Nacl 0.9% IV SPRING PRN Hypotension Dextrose/Sodium Chloride 1,000 mls @ 42 mls/hr 04/20/20 13:00 04/23/20 09:28 D5ns IV 42 mls/hr DIRECT NOEL Administration Insulin Glargine 10 units 04/17/20 10:00 04/24/20 09:09 Lantus SUB-Q 10 units Q24HR NOEL Administration Insulin Human Regular 0 unit 04/09/20 18:00 04/24/20 09:10 Humulin R SUB-Q Not Given Q6H [facility] Protocol Labetalol HCl 10 mg 04/08/20 17:17 04/23/20 16:49 Labetalol IV 10 mg Q4H PRN Administration Blood Pressure Losartan Potassium 25 mg 04/22/20 15:00 04/23/20 09:51 Cozaar PO Not Given QDAY [facility] Metoclopramide HCl 5 mg 04/23/20 08:00 04/24/20 08:58 Reglan IV 04/25/20 07:59 5 mg Q6H NOEL Administration Multi-Ingred Cream/Lotion/Oil/Oint 1 applic 04/06/20 13:34 Artificial Tears Ophth Oint OU Q4HR PRN Dry Eye(s) Multivitamins/Iron 1 each 04/23/20 10:00 04/23/20 09:50 Hemocyte Plus PO Not Given QDAY [facility] Ondansetron HCl 4 mg 04/18/20 07:45 04/22/20 15:14 Zofran IV 4 mg Q4H PRN Administration Nausea And Vomiting Pantoprazole Sodium 40 mg 04/23/20 07:30 04/23/20 09:50 Protonix PO Not Given QDAC NOEL Sodium Chloride 10 ml 04/06/20 22:00 04/23/20 21:38 Sodium Chloride Flush Syringe 10 Ml IV 10 ml BID NOEL Administration Sodium Chloride 10 ml 04/06/20 16:32 04/21/20 20:15 Sodium Chloride Flush Syringe 10 Ml IV 10 ml PRN PRN Administration LINE FLUSH Nutrition/Malnutrition Assess - Dietary Evaluation Nutrition/Malnutrition Findings: Nutrition Notes Start: 04/07/20 08:19 Freq: Status: Active Protocol: Document 04/21/20 10:15 LM (Rec: 04/21/20 10:18 LM [id number]) Nutrition Notes Initial or Follow up Brief Note Current Diagnosis CKD (stage V CKD),Diabetes, Hypertension,Stroke Other Pertinent Diagnosis on HD, bilateral BKA, AMS Current Diet No diet Subjective/Other Information Pt with no diet order. Pt to get re-evaluated by SAFETY ASSISTANT. Nutrition Intervention Follow-Up By: 04/25/20 Additional Comments F/U for SAFETY ASSISTANT recs, diet advancement, intakes
[2020-04-24] MEDS: PANTOPRAZOLE 40 MG TAB PO SCH (10:36)
[2020-04-24] MEDS: ARIPiprazole 5 MG TAB PO SCH (10:37)
[2020-04-24] MEDS: carvediloL 6.25 MG TAB PO SCH ×2 (10:37→22:40)
[2020-04-24] MEDS: FAMOTIDINE 20 MG TAB PO SCH (10:38)
[2020-04-24] MEDS: LOSARTAN 25 MG TAB PO SCH (10:38)
[2020-04-24] MEDS: FE FUMARATE/FA/MV, MIN COMB#15 CAP (HEMOCYTE PLUS) PO SCH (10:38)
--- NOTE | 2020-04-24 13:45 | Progress Note ---
Assessment and Plan Patient awake. Patient Obese and is On 3 litres O2. Not using O2 as recommended. Recommend to use O2 all the time. O2 saturation 91%. BIPAP standby in the room. Patient complaining slight cough. No complaint of chest pain or shortness of breath at this time. Patient has history of smoking 2 packs a day x 30 years. Stopped smoking at least 10 years ago. Denies alcohol or drug abuse. Used work for [employer]. Patient and has 3 children. Allergic to multiple allergens Carrots, Erythromycin, Ltex, Peas and vancomycin. Patient int ubated and extubated for acute respiratory failure. Chest xray 04/17/20 reported Stable bibasilar opacities. No pneumothorax. Patient afebrile but has leukocytosis. Patient is on albuterol aerosol treatments , S/C Heparin and famotidine. - Patient Problems (1) Acute respiratory failure Current Visit: Yes Status: Acute Qualifiers: Respiratory failure complication: hypoxia Qualified Code(s): J96.01 - Acute respiratory failure with hypoxia Plan to address problem: O2 3 litres via nasal canula. BIPAP standby in the room. Albuterol aerosol treatments. S/C Heparin. Famotidine. (2) Encephalopathy acute Current Visit: Yes Status: Acute Plan to address problem: Management as per primary care. (3) End stage renal disease Current Visit: Yes Status: Acute Plan to address problem: Management as per nephrology. (4) Hypertensive emergency Current Visit: Yes Status: Acute Plan to address problem: Management as per primary care. (5) Coronavirus infection Current Visit: No Status: Acute Plan to address problem: Test reported negative. (6) Diabetes Current Visit: No Status: Acute Plan to address problem: Management as per primary care. (7) Hypertension Current Visit: No Status: Acute Qualifiers: Hypertension type: essential hypertension Qualified Code(s): I10 - Essential (primary) hypertension Plan to address problem: Management as per primary care. Subjective Date of service: 04/24/20 Principal diagnosis: Ac on ch hypoxemic and hypercapnic resp failure; PUI COVID- 19 infxn; AMS Interval history: Patient awake. Patient Obese and is On 3 litres O2. Not using O2 as recommended. Recommend to use O2 all the time. O2 saturation 91%. BIPAP standby in the room. Patient complaining slight cough. No complaint of chest pain or shortness of breath at this time. Patient has history of smoking 2 packs a day x 30 years. Stopped smoking at least 10 years ago. Denies alcohol or drug abuse. Used work for [employer]. Patient and has 3 children. Allergic to multiple allergens Carrots, Erythromycin, Ltex, Peas and vancomycin. Patient intubated and extubated for acute respiratory failure. Chest xray 04/17/20 reported Stable bibasilar opacities. No pneumothorax. Patient afebrile but has leukocytosis. Patient is on albuterol aerosol treatments , S/C Heparin and famotidine. Objective Vital Signs - 12hr 04/24/20 04/24/20 04/24/20 03:39 08:17 09:00 Temperature 97.7 F 100.0 F H Pulse Rate 110 H 100 H 102 H Respiratory 18 20 Rate Blood Pressure 198/64 174/67 O2 Sat by Pulse 97 91 Oximetry 04/24/20 04/24/20 04/24/20 09:26 09:36 10:00 Temperature 98.5 F Pulse Rate 96 H 95 H 103 H Respiratory 18 22 Rate Blood Pressure 191/60 194/80 171/88 O2 Sat by Pulse 94 Oximetry 04/24/20 04/24/20 04/24/20 10:15 10:30 10:45 Temperature Pulse Rate 108 H 114 H 110 H Respiratory Rate Blood Pressure 171/84 149/68 164/73 O2 Sat by Pulse Oximetry 04/24/20 04/24/20 04/24/20 11:00 11:15 11:30 Temperature Pulse Rate 116 H 114 H 106 H Respiratory Rate Blood Pressure 136/85 110/66 104/67 O2 Sat by Pulse Oximetry 04/24/20 04/24/20 04/24/20 11:45 12:00 12:15 Temperature Pulse Rate 112 H 95 H 110 H Respiratory Rate Blood Pressure 105/84 86/67 120/50 O2 Sat by Pulse Oximetry 04/24/20 12:30 Temperature Pulse Rate 60 Respiratory Rate Blood Pressure 88/40 O2 Sat by Pulse Oximetry Constitutional: no acute distress, alert, other (Weak.) Eyes: non-icteric ENT: oropharynx moist, other Neck: supple, no lymphadenopathy, no JVD Effort: normal Ascultation: Bilateral: diminished breath sounds, wheezes, rhonchi (scant) Percussion: Bilateral: not dull Cardiovascular: regular rate and rhythm, other (S1,S2) Gastrointestinal: normoactive bowel sounds, soft, non-tender, non-distended (protuberant), other (Bains catheter) Integumentary: erythema (right BKA stump) Extremities: no cyanosis, no ischemia or petechiae, other (bilateral BKAs ) Neurologic: normal mental status, non-focal exam (grossly), pupils equal and round, motor strength normal and Psychiatric: affect normal, anxious CBC and BMP: 04/22/20 03:50 04/22/20 03:50 ABG, PT/INR, D-dimer: ABG ABG pH 7.486 (7.320-7.450) H 04/18/20 03:23 POC ABG pCO2 40.7 mmHg (32.0-48.0) 04/18/20 03:23 ABG pCO2 54.0 mm Hg 04/11/20 03:44 POC ABG pO2 56.4 mmHg (83-108) L 04/18/20 03:23 ABG pO2 73.4 mm Hg (80.0-90.0) L 04/11/20 03:44 POC ABG HCO3 30.0 04/18/20 03:23 ABG O2 Saturation 95.0 % (95.0-99.0) 04/11/20 03:44 PT/INR, D-dimer PT 13.8 Sec. (12.2-14.9) 04/06/20 14:30 INR 1.04 (0.87-1.13) 04/06/20 14:30 D-Dimer 1144.77 ng/mlDDU (0-234) H 04/18/20 06:48 Abnormal lab findings: Abnormal Labs 04/06/20 04/06/20 04/06/20 13:34 14:30 14:30 WBC 19.2 H RBC Hgb Hct RDW 17.8 H Plt Count Seg Neuts % (Manual) 90.0 H Lymphocytes % (Manual) 4.0 L Basophils % (Manual) Seg Neutrophils # Man 17.3 H Lymphocytes # (Manual) 0.8 L Monocytes # (Manual) Eosinophils # (Manual) Basophils # (Manual) D-Dimer ABG pH POC ABG pCO2 POC ABG pO2 ABG pO2 ABG HCO3 ABG Base Excess ABG Hemoglobin ABG Oxyhemoglobin ABG Sodium ABG Chloride ABG Glucose Oxyhemoglobin Sodium Potassium 5.2 H Chloride Carbon Dioxide 17 L BUN 53 H Creatinine 7.8 H Glucose 144 H POC Glucose Calcium Magnesium Ferritin Alkaline Phosphatase 738 H Lactate Dehydrogenase Total Creatine Kinase 23 L Troponin T 0.224 H* C-Reactive Protein Albumin 3.1 L Triglycerides 342 H Cholesterol 223 H HDL Cholesterol 35 L Arterial Blood Glucose Arterial Blood Ionized Calcium Urine WBC (Auto) > 182.0 H Salicylates Acetaminophen Hepatitis C Antibody 04/06/20 04/06/20 04/06/20 14:30 14:30 14:30 WBC RBC Hgb Hct RDW Plt Count Seg Neuts % (Manual) Lymphocytes % (Manual) Basophils % (Manual) Seg Neutrophils # Man Lymphocytes # (Manual) Monocytes # (Manual) Eosinophils # (Manual) Basophils # (Manual) D-Dimer ABG pH POC ABG pCO2 POC ABG pO2 ABG pO2 ABG HCO3 ABG Base Excess ABG Hemoglobin ABG Oxyhemoglobin ABG Sodium ABG Chloride ABG Glucose Oxyhemoglobin Sodium Potassium Chloride Carbon Dioxide BUN Creatinine Glucose POC Glucose Calcium Magnesium 2.50 H Ferritin Alkaline Phosphatase Lactate Dehydrogenase Total Creatine Kinase 24 L Troponin T C-Reactive Protein Albumin Triglycerides Cholesterol HDL Cholesterol Arterial Blood Glucose Arterial Blood Ionized Calcium Urine WBC (Auto) Salicylates < 0.3 L Acetaminophen 5.0 L Hepatitis C Antibody 04/06/20 04/06/20 04/07/20 14:39 20:00 00:48 WBC RBC Hgb Hct RDW Plt Count Seg Neuts % (Manual) Lymphocytes % (Manual) Basophils % (Manual) Seg Neutrophils # Man Lymphocytes # (Manual) Monocytes # (Manual) Eosinophils # (Manual) Basophils # (Manual) D-Dimer ABG pH 7.281 L 7.306 L POC ABG pCO2 POC ABG pO2 78.0 L ABG pO2 133.8 H ABG HCO3 18.3 L ABG Base Excess -7.8 L ABG Hemoglobin 10.8 L 10.8 L ABG Oxyhemoglobin ABG Sodium ABG Chloride 108.0 H ABG Glucose Oxyhemoglobin Sodium Potassium Chloride Carbon Dioxide BUN Creatinine Glucose POC Glucose 69 L Calcium Magnesium Ferritin Alkaline Phosphatase Lactate Dehydrogenase Total Creatine Kinase Troponin T C-Reactive Protein Albumin Triglycerides Cholesterol HDL Cholesterol Arterial Blood Glucose Arterial Blood Ionized Calcium Urine WBC (Auto) Salicylates Acetaminophen Hepatitis C Antibody 04/07/20 04/07/20 04/07/20 09:34 09:34 09:34 WBC RBC Hgb Hct RDW Plt Count Seg Neuts % (Manual) Lymphocytes % (Manual) Basophils % (Manual) Seg Neutrophils # Man Lymphocytes # (Manual) Monocytes # (Manual) Eosinophils # (Manual) Basophils # (Manual) D-Dimer 1063.66 H ABG pH POC ABG pCO2 POC ABG pO2 ABG pO2 ABG HCO3 ABG Base Excess ABG Hemoglobin ABG Oxyhemoglobin ABG Sodium ABG Chloride ABG Glucose Oxyhemoglobin Sodium Potassium Chloride Carbon Dioxide BUN Creatinine Glucose POC Glucose Calcium Magnesium Ferritin 743.0 H Alkaline Phosphatase Lactate Dehydrogenase 195 H Total Creatine Kinase Troponin T C-Reactive Protein 7.50 H Albumin Triglycerides Cholesterol HDL Cholesterol Arterial Blood Glucose Arterial Blood Ionized Calcium Urine WBC (Auto) Salicylates Acetaminophen Hepatitis C Antibody 04/07/20 04/07/20 04/07/20 10:01 16:38 23:51 WBC RBC Hgb Hct RDW Plt Count Seg Neuts % (Manual) Lymphocytes % (Manual) Basophils % (Manual) Seg Neutrophils # Man Lymphocytes # (Manual) Monocytes # (Manual) Eosinophils # (Manual) Basophils # (Manual) D-Dimer ABG pH POC ABG pCO2 POC ABG pO2 79.8 L ABG pO2 ABG HCO3 ABG Base Excess ABG Hemoglobin 10.3 L ABG Oxyhemoglobin ABG Sodium ABG Chloride 109.0 H ABG Glucose Oxyhemoglobin Sodium Potassium Chloride Carbon Dioxide BUN Creatinine Glucose POC Glucose 117 H Calcium Magnesium Ferritin Alkaline Phosphatase Lactate Dehydrogenase Total Creatine Kinase Troponin T C-Reactive Protein Albumin Triglycerides Cholesterol HDL Cholesterol Arterial Blood Glucose Arterial Blood Ionized Calcium 4.5 L Urine WBC (Auto) Salicylates Acetaminophen Hepatitis C Antibody Reactive A 04/08/20 04/08/20 04/08/20 04:58 12:48 17:03 WBC RBC Hgb Hct RDW Plt Count Seg Neuts % (Manual) Lymphocytes % (Manual) Basophils % (Manual) Seg Neutrophils # Man Lymphocytes # (Manual) Monocytes # (Manual) Eosinophils # (Manual) Basophils # (Manual) D-Dimer ABG pH POC ABG pCO2 POC ABG pO2 ABG pO2 ABG HCO3 ABG Base Excess ABG Hemoglobin ABG Oxyhemoglobin ABG Sodium ABG Chloride ABG Glucose Oxyhemoglobin Sodium Potassium Chloride Carbon Dioxide BUN Creatinine Glucose POC Glucose 129 H 155 H 201 H Calcium Magnesium Ferritin Alkaline Phosphatase Lactate Dehydrogenase Total Creatine Kinase Troponin T C-Reactive Protein Albumin Triglycerides Cholesterol HDL Cholesterol Arterial Blood Glucose Arterial Blood Ionized Calcium Urine WBC (Auto) Salicylates Acetaminophen Hepatitis C Antibody 04/08/20 04/08/20 04/09/20 23:49 Unknown 05:31 WBC RBC Hgb Hct RDW Plt Count Seg Neuts % (Manual) Lymphocytes % (Manual) Basophils % (Manual) Seg Neutrophils # Man Lymphocytes # (Manual) Monocytes # (Manual) Eosinophils # (Manual) Basophils # (Manual) D-Dimer ABG pH 7.349 L POC ABG pCO2 POC ABG pO2 ABG pO2 117.3 H ABG HCO3 ABG Base Excess ABG Hemoglobin 7.4 L ABG Oxyhemoglobin ABG Sodium ABG Chloride ABG Glucose Oxyhemoglobin Sodium Potassium Chloride Carbon Dioxide BUN Creatinine Glucose POC Glucose 178 H 248 H Calcium Magnesium Ferritin Alkaline Phosphatase Lactate Dehydrogenase Total Creatine Kinase Troponin T C-Reactive Protein Albumin Triglycerides Cholesterol HDL Cholesterol Arterial Blood Glucose Arterial Blood Ionized Calcium Urine WBC (Auto) Salicylates Acetaminophen Hepatitis C Antibody 04/09/20 04/09/20 04/09/20 11:39 17:35 Unknown WBC RBC Hgb Hct RDW Plt Count Seg Neuts % (Manual) Lymphocytes % (Manual) Basophils % (Manual) Seg Neutrophils # Man Lymphocytes # (Manual) Monocytes # (Manual) Eosinophils # (Manual) Basophils # (Manual) D-Dimer ABG pH POC ABG pCO2 51.6 H POC ABG pO2 ABG pO2 ABG HCO3 ABG Base Excess ABG Hemoglobin 11.4 L ABG Oxyhemoglobin ABG Sodium 130.1 L ABG Chloride ABG Glucose 249 H Oxyhemoglobin Sodium Potassium Chloride Carbon Dioxide BUN Creatinine Glucose POC Glucose 319 H 254 H Calcium Magnesium Ferritin Alkaline Phosphatase Lactate Dehydrogenase Total Creatine Kinase Troponin T C-Reactive Protein Albumin Triglycerides Cholesterol HDL Cholesterol Arterial Blood Glucose 249 H Arterial Blood Ionized Calcium 4.1 L Urine WBC (Auto) Salicylates Acetaminophen Hepatitis C Antibody 04/10/20 04/10/20 04/10/20 00:00 03:15 05:49 WBC RBC Hgb Hct RDW Plt Count Seg Neuts % (Manual) Lymphocytes % (Manual) Basophils % (Manual) Seg Neutrophils # Man Lymphocytes # (Manual) Monocytes # (Manual) Eosinophils # (Manual) Basophils # (Manual) D-Dimer ABG pH POC ABG pCO2 48.2 H POC ABG pO2 ABG pO2 ABG HCO3 ABG Base Excess ABG Hemoglobin 9.9 L ABG Oxyhemoglobin ABG Sodium 135.4 L ABG Chloride ABG Glucose 215 H Oxyhemoglobin Sodium Potassium Chloride Carbon Dioxide BUN Creatinine Glucose POC Glucose 194 H 221 H Calcium Magnesium Ferritin Alkaline Phosphatase Lactate Dehydrogenase Total Creatine Kinase Troponin T C-Reactive Protein Albumin Triglycerides Cholesterol HDL Cholesterol Arterial Blood Glucose 215 H Arterial Blood Ionized Calcium 4.5 L Urine WBC (Auto) Salicylates Acetaminophen Hepatitis C Antibody 04/10/20 04/10/20 04/10/20 08:18 08:18 12:22 WBC 28.9 H RBC 3.38 L Hgb 9.5 L Hct 30.1 L RDW 16.9 H Plt Count Seg Neuts % (Manual) 87.0 H Lymphocytes % (Manual) 9.0 L Basophils % (Manual) 2.0 H Seg Neutrophils # Man 25.1 H Lymphocytes # (Manual) Monocytes # (Manual) Eosinophils # (Manual) Basophils # (Manual) 0.6 H D-Dimer ABG pH POC ABG pCO2 POC ABG pO2 ABG pO2 ABG HCO3 ABG Base Excess ABG Hemoglobin ABG Oxyhemoglobin ABG Sodium ABG Chloride ABG Glucose Oxyhemoglobin Sodium 134 L Potassium 3.5 L D Chloride 94.9 L Carbon Dioxide BUN 38 H Creatinine 5.5 H Glucose 230 H POC Glucose 218 H Calcium Magnesium Ferritin Alkaline Phosphatase Lactate Dehydrogenase Total Creatine Kinase Troponin T C-Reactive Protein Albumin Triglycerides Cholesterol HDL Cholesterol Arterial Blood Glucose Arterial Blood Ionized Calcium Urine WBC (Auto) Salicylates Acetaminophen Hepatitis C Antibody 04/10/20 04/10/20 04/10/20 17:27 18:08 23:29 WBC RBC Hgb Hct RDW Plt Count Seg Neuts % (Manual) Lymphocytes % (Manual) Basophils % (Manual) Seg Neutrophils # Man Lymphocytes # (Manual) Monocytes # (Manual) Eosinophils # (Manual) Basophils # (Manual) D-Dimer ABG pH POC ABG pCO2 POC ABG pO2 ABG pO2 ABG HCO3 ABG Base Excess ABG Hemoglobin ABG Oxyhemoglobin ABG Sodium ABG Chloride ABG Glucose Oxyhemoglobin Sodium Potassium Chloride Carbon Dioxide BUN Creatinine Glucose POC Glucose 218 H 223 H 166 H Calcium Magnesium Ferritin Alkaline Phosphatase Lactate Dehydrogenase Total Creatine Kinase Troponin T C-Reactive Protein Albumin Triglycerides Cholesterol HDL Cholesterol Arterial Blood Glucose Arterial Blood Ionized Calcium Urine WBC (Auto) Salicylates Acetaminophen Hepatitis C Antibody 04/11/20 04/11/20 04/11/20 03:44 05:28 07:39 WBC 26.9 H RBC 3.32 L Hgb 9.4 L Hct 29.5 L RDW 17.2 H Plt Count Seg Neuts % (Manual) 83.0 H Lymphocytes % (Manual) 10.0 L Basophils % (Manual) Seg Neutrophils # Man 22.3 H Lymphocytes # (Manual) Monocytes # (Manual) 1.1 H Eosinophils # (Manual) 0.5 H Basophils # (Manual) D-Dimer ABG pH 7.313 L POC ABG pCO2 POC ABG pO2 ABG pO2 73.4 L ABG HCO3 26.7 H ABG Base Excess ABG Hemoglobin 11.0 L ABG Oxyhemoglobin ABG Sodium ABG Chloride ABG Glucose Oxyhemoglobin 92.8 L Sodium Potassium Chloride Carbon Dioxide BUN Creatinine Glucose POC Glucose 164 H Calcium Magnesium Ferritin Alkaline Phosphatase Lactate Dehydrogenase Total Creatine Kinase Troponin T C-Reactive Protein Albumin Triglycerides Cholesterol HDL Cholesterol Arterial Blood Glucose Arterial Blood Ionized Calcium Urine WBC (Auto) Salicylates Acetaminophen Hepatitis C Antibody 04/11/20 04/11/20 04/11/20 07:39 12:25 19:02 WBC RBC Hgb Hct RDW Plt Count Seg Neuts % (Manual) Lymphocytes % (Manual) Basophils % (Manual) Seg Neutrophils # Man Lymphocytes # (Manual) Monocytes # (Manual) Eosinophils # (Manual) Basophils # (Manual) D-Dimer ABG pH POC ABG pCO2 POC ABG pO2 ABG pO2 ABG HCO3 ABG Base Excess ABG Hemoglobin ABG Oxyhemoglobin ABG Sodium ABG Chloride ABG Glucose Oxyhemoglobin Sodium Potassium Chloride Carbon Dioxide BUN 48 H Creatinine 6.1 H Glucose 122 H POC Glucose 175 H 175 H Calcium 8.3 L Magnesium Ferritin Alkaline Phosphatase Lactate Dehydrogenase Total Creatine Kinase Troponin T C-Reactive Protein Albumin Triglycerides Cholesterol HDL Cholesterol Arterial Blood Glucose Arterial Blood Ionized Calcium Urine WBC (Auto) Salicylates Acetaminophen Hepatitis C Antibody 04/12/20 04/12/20 04/12/20 00:02 05:51 08:14 WBC 28.0 H RBC 3.29 L Hgb 9.5 L Hct 29.1 L RDW 16.9 H Plt Count Seg Neuts % (Manual) 88.0 H Lymphocytes % (Manual) 7.0 L Basophils % (Manual) Seg Neutrophils # Man 24.6 H Lymphocytes # (Manual) Monocytes # (Manual) Eosinophils # (Manual) 0.6 H Basophils # (Manual) D-Dimer ABG pH POC ABG pCO2 POC ABG pO2 ABG pO2 ABG HCO3 ABG Base Excess ABG Hemoglobin ABG Oxyhemoglobin ABG Sodium ABG Chloride ABG Glucose Oxyhemoglobin Sodium Potassium Chloride Carbon Dioxide BUN Creatinine Glucose POC Glucose 146 H 151 H Calcium Magnesium Ferritin Alkaline Phosphatase Lactate Dehydrogenase Total Creatine Kinase Troponin T C-Reactive Protein Albumin Triglycerides Cholesterol HDL Cholesterol Arterial Blood Glucose Arterial Blood Ionized Calcium Urine WBC (Auto) Salicylates Acetaminophen Hepatitis C Antibody 04/12/20 04/12/20 04/12/20 08:14 12:21 17:26 WBC RBC Hgb Hct RDW Plt Count Seg Neuts % (Manual) Lymphocytes % (Manual) Basophils % (Manual) Seg Neutrophils # Man Lymphocytes # (Manual) Monocytes # (Manual) Eosinophils # (Manual) Basophils # (Manual) D-Dimer ABG pH POC ABG pCO2 POC ABG pO2 ABG pO2 ABG HCO3 ABG Base Excess ABG Hemoglobin ABG Oxyhemoglobin ABG Sodium ABG Chloride ABG Glucose Oxyhemoglobin Sodium Potassium 3.3 L Chloride Carbon Dioxide BUN 32 H Creatinine 4.3 H Glucose 188 H POC Glucose 196 H 235 H Calcium Magnesium Ferritin Alkaline Phosphatase Lactate Dehydrogenase Total Creatine Kinase Troponin T C-Reactive Protein Albumin Triglycerides Cholesterol HDL Cholesterol Arterial Blood Glucose Arterial Blood Ionized Calcium Urine WBC (Auto) Salicylates Acetaminophen Hepatitis C Antibody 04/12/20 04/13/20 04/13/20 23:34 03:40 05:33 WBC RBC Hgb Hct RDW Plt Count Seg Neuts % (Manual) Lymphocytes % (Manual) Basophils % (Manual) Seg Neutrophils # Man Lymphocytes # (Manual) Monocytes # (Manual) Eosinophils # (Manual) Basophils # (Manual) D-Dimer ABG pH POC ABG pCO2 POC ABG pO2 ABG pO2 ABG HCO3 ABG Base Excess ABG Hemoglobin 9.4 L ABG Oxyhemoglobin ABG Sodium 133.6 L ABG Chloride ABG Glucose 172 H Oxyhemoglobin Sodium Potassium Chloride Carbon Dioxide BUN Creatinine Glucose POC Glucose 171 H 167 H Calcium Magnesium Ferritin Alkaline Phosphatase Lactate Dehydrogenase Total Creatine Kinase Troponin T C-Reactive Protein Albumin Triglycerides Cholesterol HDL Cholesterol Arterial Blood Glucose 172 H Arterial Blood Ionized Calcium Urine WBC (Auto) Salicylates Acetaminophen Hepatitis C Antibody 04/13/20 04/13/20 04/13/20 07:49 09:09 11:34 WBC RBC Hgb Hct RDW Plt Count Seg Neuts % (Manual) Lymphocytes % (Manual) Basophils % (Manual) Seg Neutrophils # Man Lymphocytes # (Manual) Monocytes # (Manual) Eosinophils # (Manual) Basophils # (Manual) D-Dimer ABG pH POC ABG pCO2 POC ABG pO2 ABG pO2 ABG HCO3 ABG Base Excess ABG Hemoglobin ABG Oxyhemoglobin ABG Sodium ABG Chloride ABG Glucose Oxyhemoglobin Sodium Potassium Chloride Carbon Dioxide 31 H BUN 44 H 43 H Creatinine 5.0 H 4.9 H Glucose 164 H 164 H POC Glucose 155 H Calcium Magnesium Ferritin Alkaline Phosphatase Lactate Dehydrogenase Total Creatine Kinase Troponin T C-Reactive Protein Albumin Triglycerides Cholesterol HDL Cholesterol Arterial Blood Glucose Arterial Blood Ionized Calcium Urine WBC (Auto) Salicylates Acetaminophen Hepatitis C Antibody 04/13/20 04/13/20 04/14/20 17:38 23:40 04:35 WBC RBC Hgb Hct RDW Plt Count Seg Neuts % (Manual) Lymphocytes % (Manual) Basophils % (Manual) Seg Neutrophils # Man Lymphocytes # (Manual) Monocytes # (Manual) Eosinophils # (Manual) Basophils # (Manual) D-Dimer ABG pH POC ABG pCO2 POC ABG pO2 ABG pO2 ABG HCO3 ABG Base Excess ABG Hemoglobin ABG Oxyhemoglobin ABG Sodium ABG Chloride ABG Glucose Oxyhemoglobin Sodium Potassium Chloride Carbon Dioxide BUN Creatinine Glucose POC Glucose 180 H 130 H 121 H Calcium Magnesium Ferritin Alkaline Phosphatase Lactate Dehydrogenase Total Creatine Kinase Troponin T C-Reactive Protein Albumin Triglycerides Cholesterol HDL Cholesterol Arterial Blood Glucose Arterial Blood Ionized Calcium Urine WBC (Auto) Salicylates Acetaminophen Hepatitis C Antibody 04/14/20 04/14/20 04/15/20 12:17 17:06 00:11 WBC RBC Hgb Hct RDW Plt Count Seg Neuts % (Manual) Lymphocytes % (Manual) Basophils % (Manual) Seg Neutrophils # Man Lymphocytes # (Manual) Monocytes # (Manual) Eosinophils # (Manual) Basophils # (Manual) D-Dimer ABG pH POC ABG pCO2 POC ABG pO2 ABG pO2 ABG HCO3 ABG Base Excess ABG Hemoglobin ABG Oxyhemoglobin ABG Sodium ABG Chloride ABG Glucose Oxyhemoglobin Sodium Potassium Chloride Carbon Dioxide BUN Creatinine Glucose POC Glucose 170 H 177 H 156 H Calcium Magnesium Ferritin Alkaline Phosphatase Lactate Dehydrogenase Total Creatine Kinase Troponin T C-Reactive Protein Albumin Triglycerides Cholesterol HDL Cholesterol Arterial Blood Glucose Arterial Blood Ionized Calcium Urine WBC (Auto) Salicylates Acetaminophen Hepatitis C Antibody 04/15/20 04/15/20 04/15/20 05:09 11:45 17:12 WBC RBC Hgb Hct RDW Plt Count Seg Neuts % (Manual) Lymphocytes % (Manual) Basophils % (Manual) Seg Neutrophils # Man Lymphocytes # (Manual) Monocytes # (Manual) Eosinophils # (Manual) Basophils # (Manual) D-Dimer ABG pH POC ABG pCO2 POC ABG pO2 ABG pO2 ABG HCO3 ABG Base Excess ABG Hemoglobin ABG Oxyhemoglobin ABG Sodium ABG Chloride ABG Glucose Oxyhemoglobin Sodium Potassium Chloride Carbon Dioxide BUN Creatinine Glucose POC Glucose 141 H 154 H 177 H Calcium Magnesium Ferritin Alkaline Phosphatase Lactate Dehydrogenase Total Creatine Kinase Troponin T C-Reactive Protein Albumin Triglycerides Cholesterol HDL Cholesterol Arterial Blood Glucose Arterial Blood Ionized Calcium Urine WBC (Auto) Salicylates Acetaminophen Hepatitis C Antibody 04/16/20 04/16/20 04/16/20 05:11 12:13 17:31 WBC RBC Hgb Hct RDW Plt Count Seg Neuts % (Manual) Lymphocytes % (Manual) Basophils % (Manual) Seg Neutrophils # Man Lymphocytes # (Manual) Monocytes # (Manual) Eosinophils # (Manual) Basophils # (Manual) D-Dimer ABG pH POC ABG pCO2 POC ABG pO2 ABG pO2 ABG HCO3 ABG Base Excess ABG Hemoglobin ABG Oxyhemoglobin ABG Sodium ABG Chloride ABG Glucose Oxyhemoglobin Sodium Potassium Chloride Carbon Dioxide BUN Creatinine Glucose POC Glucose 115 H 122 H 188 H Calcium Magnesium Ferritin Alkaline Phosphatase Lactate Dehydrogenase Total Creatine Kinase Troponin T C-Reactive Protein Albumin Triglycerides Cholesterol HDL Cholesterol Arterial Blood Glucose Arterial Blood Ionized Calcium Urine WBC (Auto) Salicylates Acetaminophen Hepatitis C Antibody 04/16/20 04/17/20 04/17/20 23:47 05:44 05:44 WBC 19.5 H RBC 3.26 L Hgb 9.3 L Hct 28.7 L RDW 15.9 H Plt Count 604 H Seg Neuts % (Manual) 81.0 H Lymphocytes % (Manual) 11.0 L Basophils % (Manual) Seg Neutrophils # Man 15.8 H Lymphocytes # (Manual) Monocytes # (Manual) Eosinophils # (Manual) 0.6 H Basophils # (Manual) 0.2 H D-Dimer ABG pH POC ABG pCO2 POC ABG pO2 ABG pO2 ABG HCO3 ABG Base Excess ABG Hemoglobin ABG Oxyhemoglobin ABG Sodium ABG Chloride ABG Glucose Oxyhemoglobin Sodium Potassium Chloride Carbon Dioxide BUN 28 H Creatinine 3.3 H Glucose 130 H POC Glucose 156 H Calcium Magnesium Ferritin Alkaline Phosphatase Lactate Dehydrogenase Total Creatine Kinase Troponin T C-Reactive Protein Albumin Triglycerides Cholesterol HDL Cholesterol Arterial Blood Glucose Arterial Blood Ionized Calcium Urine WBC (Auto) Salicylates Acetaminophen Hepatitis C Antibody 04/17/20 04/17/20 04/17/20 12:57 17:18 22:04 WBC RBC Hgb Hct RDW Plt Count Seg Neuts % (Manual) Lymphocytes % (Manual) Basophils % (Manual) Seg Neutrophils # Man Lymphocytes # (Manual) Monocytes # (Manual) Eosinophils # (Manual) Basophils # (Manual) D-Dimer ABG pH 7.553 H POC ABG pCO2 POC ABG pO2 206.5 H ABG pO2 ABG HCO3 ABG Base Excess ABG Hemoglobin 11.2 L ABG Oxyhemoglobin 99.1 H ABG Sodium 133.0 L ABG Chloride ABG Glucose 183 H Oxyhemoglobin Sodium Potassium Chloride Carbon Dioxide BUN Creatinine Glucose POC Glucose 146 H 156 H Calcium Magnesium Ferritin Alkaline Phosphatase Lactate Dehydrogenase Total Creatine Kinase Troponin T C-Reactive Protein Albumin Triglycerides Cholesterol HDL Cholesterol Arterial Blood Glucose 183 H Arterial Blood Ionized Calcium 4.4 L Urine WBC (Auto) Salicylates Acetaminophen Hepatitis C Antibody 04/17/20 04/18/20 04/18/20 23:29 03:23 04:43 WBC RBC Hgb Hct RDW Plt Count Seg Neuts % (Manual) Lymphocytes % (Manual) Basophils % (Manual) Seg Neutrophils # Man Lymphocytes # (Manual) Monocytes # (Manual) Eosinophils # (Manual) Basophils # (Manual) D-Dimer ABG pH 7.486 H POC ABG pCO2 POC ABG pO2 56.4 L ABG pO2 ABG HCO3 ABG Base Excess ABG Hemoglobin 11.2 L ABG Oxyhemoglobin 92.0 L ABG Sodium 135.1 L ABG Chloride ABG Glucose 138 H Oxyhemoglobin Sodium Potassium Chloride Carbon Dioxide BUN Creatinine Glucose POC Glucose 125 H 119 H Calcium Magnesium Ferritin Alkaline Phosphatase Lactate Dehydrogenase Total Creatine Kinase Troponin T C-Reactive Protein Albumin Triglycerides Cholesterol HDL Cholesterol Arterial Blood Glucose 138 H Arterial Blood Ionized Calcium 4.5 L Urine WBC (Auto) Salicylates Acetaminophen Hepatitis C Antibody 04/18/20 04/18/20 04/18/20 06:48 06:48 06:48 WBC 38.7 H RBC Hgb Hct RDW 16.3 H Plt Count 597 H Seg Neuts % (Manual) Lymphocytes % (Manual) Basophils % (Manual) Seg Neutrophils # Man Lymphocytes # (Manual) Monocytes # (Manual) Eosinophils # (Manual) Basophils # (Manual) D-Dimer 1144.77 H ABG pH POC ABG pCO2 POC ABG pO2 ABG pO2 ABG HCO3 ABG Base Excess ABG Hemoglobin ABG Oxyhemoglobin ABG Sodium ABG Chloride ABG Glucose Oxyhemoglobin Sodium 134 L Potassium Chloride 96.4 L Carbon Dioxide BUN 19 H Creatinine 2.6 H Glucose 104 H POC Glucose Calcium Magnesium Ferritin Alkaline Phosphatase 413 H Lactate Dehydrogenase Total Creatine Kinase Troponin T C-Reactive Protein Albumin 2.8 L Triglycerides Cholesterol HDL Cholesterol Arterial Blood Glucose Arterial Blood Ionized Calcium Urine WBC (Auto) Salicylates Acetaminophen Hepatitis C Antibody 04/18/20 04/18/20 04/19/20 11:33 17:18 06:24 WBC 28.9 H RBC 3.33 L Hgb 9.5 L Hct 29.5 L RDW 16.0 H Plt Count 577 H Seg Neuts % (Manual) Lymphocytes % (Manual) Basophils % (Manual) Seg Neutrophils # Man Lymphocytes # (Manual) Monocytes # (Manual) Eosinophils # (Manual) Basophils # (Manual) D-Dimer ABG pH POC ABG pCO2 POC ABG pO2 ABG pO2 ABG HCO3 ABG Base Excess ABG Hemoglobin ABG Oxyhemoglobin ABG Sodium ABG Chloride ABG Glucose Oxyhemoglobin Sodium Potassium Chloride Carbon Dioxide BUN Creatinine Glucose POC Glucose 195 H 162 H Calcium Magnesium Ferritin Alkaline Phosphatase Lactate Dehydrogenase Total Creatine Kinase Troponin T C-Reactive Protein Albumin Triglycerides Cholesterol HDL Cholesterol Arterial Blood Glucose Arterial Blood Ionized Calcium Urine WBC (Auto) Salicylates Acetaminophen Hepatitis C Antibody 04/19/20 04/19/20 04/20/20 06:24 17:28 07:50 WBC 22.7 H RBC 3.43 L Hgb 9.6 L Hct RDW 15.9 H Plt Count 530 H Seg Neuts % (Manual) Lymphocytes % (Manual) Basophils % (Manual) Seg Neutrophils # Man Lymphocytes # (Manual) Monocytes # (Manual) Eosinophils # (Manual) Basophils # (Manual) D-Dimer ABG pH POC ABG pCO2 POC ABG pO2 ABG pO2 ABG HCO3 ABG Base Excess ABG Hemoglobin ABG Oxyhemoglobin ABG Sodium ABG Chloride ABG Glucose Oxyhemoglobin Sodium Potassium Chloride Carbon Dioxide 31 H D BUN 27 H Creatinine 3.8 H Glucose POC Glucose 114 H Calcium Magnesium Ferritin Alkaline Phosphatase 343 H Lactate Dehydrogenase Total Creatine Kinase Troponin T C-Reactive Protein Albumin 2.8 L Triglycerides Cholesterol HDL Cholesterol Arterial Blood Glucose Arterial Blood Ionized Calcium Urine WBC (Auto) Salicylates Acetaminophen Hepatitis C Antibody 04/20/20 04/21/20 04/21/20 07:50 00:42 04:32 WBC 16.4 H RBC 3.37 L Hgb 9.7 L Hct 30.0 L RDW 15.6 H Plt Count 597 H Seg Neuts % (Manual) Lymphocytes % (Manual) Basophils % (Manual) Seg Neutrophils # Man Lymphocytes # (Manual) Monocytes # (Manual) Eosinophils # (Manual) Basophils # (Manual) D-Dimer ABG pH POC ABG pCO2 POC ABG pO2 ABG pO2 ABG HCO3 ABG Base Excess ABG Hemoglobin ABG Oxyhemoglobin ABG Sodium ABG Chloride ABG Glucose Oxyhemoglobin Sodium Potassium Chloride Carbon Dioxide 31 H BUN Creatinine 2.8 H Glucose POC Glucose 119 H Calcium Magnesium Ferritin Alkaline Phosphatase Lactate Dehydrogenase Total Creatine Kinase Troponin T C-Reactive Protein Albumin Triglycerides Cholesterol HDL Cholesterol Arterial Blood Glucose Arterial Blood Ionized Calcium Urine WBC (Auto) Salicylates Acetaminophen Hepatitis C Antibody 04/21/20 04/21/20 04/21/20 04:32 16:30 17:43 WBC RBC Hgb Hct RDW Plt Count Seg Neuts % (Manual) Lymphocytes % (Manual) Basophils % (Manual) Seg Neutrophils # Man Lymphocytes # (Manual) Monocytes # (Manual) Eosinophils # (Manual) Basophils # (Manual) D-Dimer ABG pH POC ABG pCO2 POC ABG pO2 ABG pO2 ABG HCO3 ABG Base Excess ABG Hemoglobin ABG Oxyhemoglobin ABG Sodium ABG Chloride ABG Glucose Oxyhemoglobin Sodium Potassium Chloride Carbon Dioxide BUN 25 H Creatinine 3.9 H Glucose 106 H POC Glucose 149 H 171 H Calcium Magnesium Ferritin Alkaline Phosphatase 324 H Lactate Dehydrogenase Total Creatine Kinase Troponin T C-Reactive Protein Albumin 3.0 L Triglycerides Cholesterol HDL Cholesterol Arterial Blood Glucose Arterial Blood Ionized Calcium Urine WBC (Auto) Salicylates Acetaminophen Hepatitis C Antibody 04/22/20 04/22/20 04/22/20 00:59 03:50 03:50 WBC 15.5 H RBC Hgb Hct RDW Plt Count 629 H Seg Neuts % (Manual) Lymphocytes % (Manual) Basophils % (Manual) Seg Neutrophils # Man Lymphocytes # (Manual) Monocytes # (Manual) Eosinophils # (Manual) Basophils # (Manual) D-Dimer ABG pH POC ABG pCO2 POC ABG pO2 ABG pO2 ABG HCO3 ABG Base Excess ABG Hemoglobin ABG Oxyhemoglobin ABG Sodium ABG Chloride ABG Glucose Oxyhemoglobin Sodium Potassium Chloride Carbon Dioxide BUN Creatinine 2.6 H Glucose 131 H POC Glucose 128 H Calcium Magnesium Ferritin Alkaline Phosphatase Lactate Dehydrogenase Total Creatine Kinase Troponin T C-Reactive Protein Albumin Triglycerides Cholesterol HDL Cholesterol Arterial Blood Glucose Arterial Blood Ionized Calcium Urine WBC (Auto) Salicylates Acetaminophen Hepatitis C Antibody 04/22/20 04/22/20 04/22/20 05:38 07:50 11:44 WBC RBC Hgb Hct RDW Plt Count Seg Neuts % (Manual) Lymphocytes % (Manual) Basophils % (Manual) Seg Neutrophils # Man Lymphocytes # (Manual) Monocytes # (Manual) Eosinophils # (Manual) Basophils # (Manual) D-Dimer ABG pH POC ABG pCO2 POC ABG pO2 ABG pO2 ABG HCO3 ABG Base Excess ABG Hemoglobin ABG Oxyhemoglobin ABG Sodium ABG Chloride ABG Glucose Oxyhemoglobin Sodium Potassium Chloride Carbon Dioxide BUN Creatinine Glucose POC Glucose 115 H 147 H 175 H Calcium Magnesium Ferritin Alkaline Phosphatase Lactate Dehydrogenase Total Creatine Kinase Troponin T C-Reactive Protein Albumin Triglycerides Cholesterol HDL Cholesterol Arterial Blood Glucose Arterial Blood Ionized Calcium Urine WBC (Auto) Salicylates Acetaminophen Hepatitis C Antibody 04/22/20 04/23/20 04/23/20 16:41 00:12 08:26 WBC RBC Hgb Hct RDW Plt Count Seg Neuts % (Manual) Lymphocytes % (Manual) Basophils % (Manual) Seg Neutrophils # Man Lymphocytes # (Manual) Monocytes # (Manual) Eosinophils # (Manual) Basophils # (Manual) D-Dimer ABG pH POC ABG pCO2 POC ABG pO2 ABG pO2 ABG HCO3 ABG Base Excess ABG Hemoglobin ABG Oxyhemoglobin ABG Sodium ABG Chloride ABG Glucose Oxyhemoglobin Sodium Potassium Chloride Carbon Dioxide BUN Creatinine Glucose POC Glucose 180 H 175 H Calcium Magnesium Ferritin Alkaline Phosphatase 308 H Lactate Dehydrogenase Total Creatine Kinase Troponin T C-Reactive Protein Albumin 3.2 L Triglycerides Cholesterol HDL Cholesterol Arterial Blood Glucose Arterial Blood Ionized Calcium Urine WBC (Auto) Salicylates Acetaminophen Hepatitis C Antibody 04/23/20 04/23/20 04/23/20 08:44 12:36 16:43 WBC RBC Hgb Hct RDW Plt Count Seg Neuts % (Manual) Lymphocytes % (Manual) Basophils % (Manual) Seg Neutrophils # Man Lymphocytes # (Manual) Monocytes # (Manual) Eosinophils # (Manual) Basophils # (Manual) D-Dimer ABG pH POC ABG pCO2 POC ABG pO2 ABG pO2 ABG HCO3 ABG Base Excess ABG Hemoglobin ABG Oxyhemoglobin ABG Sodium ABG Chloride ABG Glucose Oxyhemoglobin Sodium Potassium Chloride Carbon Dioxide BUN Creatinine Glucose POC Glucose 171 H 165 H 196 H Calcium Magnesium Ferritin Alkaline Phosphatase Lactate Dehydrogenase Total Creatine Kinase Troponin T C-Reactive Protein Albumin Triglycerides Cholesterol HDL Cholesterol Arterial Blood Glucose Arterial Blood Ionized Calcium Urine WBC (Auto) Salicylates Acetaminophen Hepatitis C Antibody 04/24/20 04/24/20 00:08 09:09 WBC RBC Hgb Hct RDW Plt Count Seg Neuts % (Manual) Lymphocytes % (Manual) Basophils % (Manual) Seg Neutrophils # Man Lymphocytes # (Manual) Monocytes # (Manual) Eosinophils # (Manual) Basophils # (Manual) D-Dimer ABG pH POC ABG pCO2 POC ABG pO2 ABG pO2 ABG HCO3 ABG Base Excess ABG Hemoglobin ABG Oxyhemoglobin ABG Sodium ABG Chloride ABG Glucose Oxyhemoglobin Sodium Potassium Chloride Carbon Dioxide BUN Creatinine Glucose POC Glucose 150 H 165 H Calcium Magnesium Ferritin Alkaline Phosphatase Lactate Dehydrogenase Total Creatine Kinase Troponin T C-Reactive Protein Albumin Triglycerides Cholesterol HDL Cholesterol Arterial Blood Glucose Arterial Blood Ionized Calcium Urine WBC (Auto) Salicylates Acetaminophen Hepatitis C Antibody Allied health notes reviewed: RT
[2020-04-24] MEDS ORDERED: cephALEXin ORAL LIQD 500 MG/10 ML ORAL LIQD PO SCH (14:00)
--- NOTE | 2020-04-24 16:36 | Progress Note ---
Assessment and Plan Cultures: Blood culture 04/06/2020: 1 out of 4 bottles coag negative staph Urine culture 04/06/2020 <10,000 mixed bacteria Respiratory culture 04/06/2020 poor specimen SARS-CoV-2 PCR negative 04/07/2020 tracheal aspirate culture: Usual respiratory sarah Assessment: 49 years old female with history of asthma, hypertension, end-stage renal disease on hemodialysis, diabetes mellitus, bipolar disorder, morbid obesity, CVA, bilateral BKA's recent COVID-19 infection requiring intubation treated with dexamethasone in December 2019 [facility], resident of a [place], admitted on 04/06/2020 secondary to be found unresponsiveness after hemodialysis: #Severe sepsis: Present on admission with hypothermia, leukocytosis, altered mental status, likely due to bilateral pneumonia, bacteremia and UTI. Improving #Bilateral pneumonia: Aspiration pneumonia/HAP. Of note, patient was recently admitted at [facility] in January 2020 requiring intubation for COVID-19 pneumonia. COVID-19 pneumonia was treated with dexamethasone. #Coag negative staph bacteremia: 1/4 bottles, consistent with contaminant. #UTI: Bains catheter with purulent urine. #Acute hypoxemic respiratory failure: Improving, now on 3 L nasal cannula. #End-stage renal disease on hemodialysis: renally dose abx. #Extensive Candidal intertrigo in groin and vagina: treated with fluconazole. #Vancomycin allergy ? Causing hives. I reviewed records from [facility] and there is no documentation of vancomycin allergy, patient initially received vancomycin #Leucocytosis: Patient has chronic leukocytosis, labs from [facility] and [facility] in the past were reviewed. #Chronic Hepatitis C: treatment status unknown. F/U HCV RNA PCR. Recs: Patient has chronic leukocytosis, labs from [facility] and [facility] in the past were reviewed Follow leukocytosis, stable elevated G. Vero Zayas MD [facility] ([facility] O: [phone] F: [phone] Subjective Date of service: 04/24/20 Principal diagnosis: Ac on ch hypoxemic and hypercapnic resp failure; PUI COVID- 19 infxn; AMS Interval history: Afebrile, chronically elevated white count. No acute changes. Imaging personally reviewed: CT abdomen pelvis: Possible senescent changes of the kidneys. No acute abnormality. Objective - Exam Narrative Exam: Constitutional: Awake, alert on nasal cannula Head, Ears, Nose: Normocephalic, atraumatic. Eyes: Conjunctivae/corneas clear. No icterus. No ptosis. Neck: intubated Oral: intubated Cardiovascular: S1, S2 + Respiratory: AE fair bilaterally and equal GI: Soft, bowel sounds + Musculoskeletal: Bilateral BKA. Right chest PermCath Skin: No rash or abscess Hem/Lymphatic: No palpable cervical or supraclavicular nodes. No lymphangitis Psych: no agitation Neurological: Awake, alert - Constitutional Vitals: Vital Signs Temp Pulse Resp BP Pulse Ox 98 F 113 H 18 133/97 94 04/24/20 12:45 04/24/20 12:45 04/24/20 12:45 04/24/20 12:45 04/24/20 10:00 Temperature -Last 24 Hours Temperature 98 F Temperature 98.5 F Temperature 100.0 F Temperature 97.7 F Temperature 98.1 F Temperature 98.6 F Temperature 98.9 F - Labs CBC & Chem 7: 04/22/20 03:50 04/22/20 03:50 Labs: Abnormal lab results 04/23/20 04/24/20 04/24/20 Range/Units 16:43 00:08 09:09 POC Glucose 196 H 150 H 165 H (70-105) mg/dL
[2020-04-24] MEDS: CEFEPIME/NS 1 GM/100 ML 1 GM/100 ML BAG IV SCH (16:50)
[2020-04-25] MEDS: INSULIN REGULAR, HUMAN 100 UNIT/ML 3ML VIAL SUB-Q SCH ×4 (00:35→17:40)
[2020-04-25] MEDS: METOCLOPRAMIDE 10 MG/2 ML INJ IV SCH (03:05)
[2020-04-25] MEDS: HYDROmorphone 1 MG/1 ML INJ IV PRN (03:35)
[2020-04-25] MEDS: D5W/0.9% NACL 1,000 ML IV SCH (06:10)
[2020-04-25] MEDS ORDERED: cloNIDine TTS 0.1 MG/24 HR PATCH TD SCH (08:00)
--- NOTE | 2020-04-25 08:57 | Progress Note ---
Assessment and Plan Impression: * End stage renal disease * Sepsis * Positive blood cx - likely contaminant --Blood cx: staph epi (05/29 bottles - Apr 06) * Acute hypoxic respiratory failure * Acute encephalopathy * Acute ischemic stroke * UTI * Hx of COVID 19 --SARS Cov2 PCR negative Apr 07 * Metabolic acidosis * Pneumonia Plan: * Continue hemodialysis on MWF, * UF as tolerated * Abx per ID, input reviewed * neurology notes reviewed * Dose medications for renal function Subjective Date of service: 04/25/20 Principal diagnosis: Ac on ch hypoxemic and hypercapnic resp failure; PUI COVID- 19 infxn; AMS Interval history: Patient is comfortable. Denies any shortness of breath. Uneventful hemodialysis yesterday. Objective - Vital Signs Vital signs: Vital Signs - 12hr 04/24/20 04/24/20 04/24/20 22:00 22:37 23:04 Temperature 100.0 F H Pulse Rate 129 H 117 H Respiratory 21 Rate Blood Pressure 155/41 137/73 O2 Sat by Pulse 93 93 Oximetry 04/25/20 04/25/20 04/25/20 00:33 03:52 04:00 Temperature 99.9 F H Pulse Rate 111 H 118 H 98 H Respiratory 27 H 28 H 30 H Rate Blood Pressure 94/31 O2 Sat by Pulse 100 92 100 Oximetry 04/25/20 07:21 Temperature 98.0 F Pulse Rate 113 H Respiratory 18 Rate Blood Pressure 128/56 O2 Sat by Pulse 96 Oximetry - General Appearance General appearance: well-developed, well-nourished, appears stated age EENT: PERRL, mucous membranes moist Neck: no JVD, no thyromegaly, no carotid bruit, supple, other (IJ PermCath in place) Respiratory: Present: Clear to Ascultation Cardiology: regular, normal heart rate, S1S2, no murmurs Gastrointestinal: normal, normoactive bowel sounds Integumentary: other (Bilateral BKA) - Lab 04/22/20 03:50 04/22/20 03:50 Most recent lab results ABG pH 7.486 (7.320-7.450) H 04/18/20 03:23 ABG pCO2 54.0 mm Hg 04/11/20 03:44 ABG pO2 73.4 mm Hg (80.0-90.0) L 04/11/20 03:44 ABG HCO3 26.7 mmol/L (20.0-26.0) H 04/11/20 03:44 ABG O2 Saturation 95.0 % (95.0-99.0) 04/11/20 03:44 Calcium 9.1 mg/dL (8.4-10.2) 04/22/20 03:50 Phosphorus 3.00 mg/dL (2.5-4.5) 04/17/20 05:44 Magnesium 2.00 mg/dL (1.7-2.3) 04/17/20 05:44 Medications & Allergies - Medications Allergies/Adverse Reactions: Allergies carrot Allergy (Verified 07/28/19 12:30) Hives erythromycin base Allergy (Verified 07/30/19 11:26) Hives latex Allergy (Verified 02/18/19 13:20) Rash peas Allergy (Verified 12/20/19 12:37) Hives vancomycin Allergy (Verified 12/31/19 15:46) Hives Home Medications: Home Medications Medication Instructions Recorded Confirmed Last Taken Type Aripiprazole 5 mg PO DAILY 02/18/19 04/06/20 02/17/19 History Benadryl CAP 25 mg PO Q8H PRN 02/18/19 04/06/20 02/17/19 History Calcium Acetate 667 mg PO TIDWM 02/18/19 04/06/20 02/17/19 History Carvedilol 6.25 mg PO Q12H 02/18/19 04/06/20 02/17/19 History Colace CAP 100 mg PO Q12H PRN 02/18/19 04/06/20 02/17/19 History Esomeprazole Magnesium 40 mg PO QDAC 02/18/19 04/06/20 02/17/19 History HumaLOG 10 units SUB-Q TIDWM 02/18/19 04/06/20 02/17/19 History Insulin Detemir (Nf) [Levemir See Protocol SQ QHS 02/18/19 04/06/20 02/17/19 History Flextouch (Nf)] Losartan Potassium 50 mg PO DAILY 02/18/19 04/06/20 02/17/19 History Lyrica 75 mg PO Q12H 02/18/19 04/06/20 02/17/19 History Melatonin 6 mg PO QHS 02/18/19 04/06/20 02/17/19 History Senna 17.2 mg PO QHS PRN 02/18/19 04/06/20 02/17/19 History Venlafaxine HCl [Venlafaxine HCl 150 mg PO QDAC 02/18/19 04/06/20 02/17/19 History ER] Vitamin C 250 mg PO DAILY 02/18/19 04/06/20 02/17/19 History ZyrTEC 10mg cap 10 mg PO DAILY 02/18/19 04/06/20 02/17/19 History Calcium Acetate [Phoslo] 667 mg PO TIDWM capsule 12/22/19 04/06/20 Unknown Rx Fe Fumarate/FA/Mv, Min Comb#15 1 each PO QDAY capsule 12/22/19 04/06/20 Unknown Rx [Hemocyte Plus] Albuterol Mdi (or & Nicu Only) 2.5 puff IH Q4HRT PRN inha 01/12/20 04/06/20 Unknown Rx [ProAir HFA Inhaler] dexAMETHasone [Decadron] 6 mg PO Q12HR #10 tablet 01/12/20 04/06/20 Unknown Rx oxyCODONE 5 mg PO Q6H PRN #10 01/12/20 04/06/20 Unknown Rx Active Medications: Generic Name Dose Route Start Last Admin Trade Name Freq PRN Reason Stop Dose Admin Acetaminophen 650 mg 04/06/20 16:39 Tylenol PO Q6H PRN Pain, Mild (1-3) Albuterol 2.5 puff 04/22/20 12:13 Proair IH Q4HRT PRN Shortness Of Breath Aripiprazole 5 mg 04/23/20 10:00 04/24/20 10:37 Aripiprazole PO Not Given DAILY NOEL Calcium Acetate 667 mg 04/22/20 17:00 04/24/20 22:41 Phoslo PO Not Given TIDWM NOEL Carvedilol 6.25 mg 04/13/20 22:00 04/24/20 22:40 Coreg PO Not Given BID NOEL Clonidine HCl 0.1 mg 04/25/20 08:00 Catapres-Tts Patch TD Tu NOEL Dextrose 50 ml 04/09/20 16:30 D50w (25gm) Syringe IV Q30MIN PRN Hypoglycemia Protocol Docusate Sodium 100 mg 04/22/20 12:17 Colace PO Q12H PRN Constipation Famotidine 20 mg 04/07/20 10:00 04/24/20 10:38 Pepcid PO Not Given QDAY [facility] Heparin Sodium (Porcine) 5,000 unit 04/06/20 22:00 04/24/20 22:40 Heparin SUB-Q 5,000 unit Q12HR NOEL Administration Hydromorphone HCl 1 mg 04/18/20 14:22 04/25/20 03:35 Dilaudid IV 1 mg Q4H PRN Administration Pain , Severe (7-10) Hydrophilic Ointment 1 applic 04/06/20 13:34 Vaseline Lip Therapy TP Q2HR PRN Dry Lips Sodium Chloride 100 mls @ 999 mls/hr 04/07/20 17:00 Nacl 0.9% IV SPRING PRN Hypotension Dextrose/Sodium Chloride 1,000 mls @ 42 mls/hr 04/20/20 13:00 04/25/20 06:10 D5ns IV 42 mls/hr DIRECT NOEL Administration Cefepime HCl 1 gm in 100 mls @ 200 mls/hr 04/24/20 12:00 04/24/20 16:50 Cefepime/Ns 1 Gm/100 Ml IV 200 mls/hr Q24HR [facility] Administration Protocol Insulin Glargine 10 units 04/17/20 10:00 04/24/20 09:09 Lantus SUB-Q 10 units Q24HR NOEL Administration Insulin Human Regular 0 unit 04/09/20 18:00 04/25/20 06:09 Humulin R SUB-Q 3 unit Q6H [facility] Administration Protocol Labetalol HCl 10 mg 04/08/20 17:17 04/24/20 22:37 Labetalol IV 10 mg Q4H PRN Administration Blood Pressure Losartan Potassium 25 mg 04/22/20 15:00 04/24/20 10:38 Cozaar PO Not Given QDAY [facility] Multi-Ingred Cream/Lotion/Oil/Oint 1 applic 04/06/20 13:34 Artificial Tears Ophth Oint OU Q4HR PRN Dry Eye(s) Multivitamins/Iron 1 each 04/23/20 10:00 04/24/20 10:38 Hemocyte Plus PO Not Given QDAY [facility] Ondansetron HCl 4 mg 04/18/20 07:45 04/22/20 15:14 Zofran IV 4 mg Q4H PRN Administration Nausea And Vomiting Pantoprazole Sodium 40 mg 04/23/20 07:30 04/24/20 10:36 Protonix PO Not Given QDAC NOEL Sodium Chloride 10 ml 04/06/20 22:00 04/24/20 22:41 Sodium Chloride Flush Syringe 10 Ml IV 10 ml BID NOEL Administration Sodium Chloride 10 ml 04/06/20 16:32 04/25/20 03:36 Sodium Chloride Flush Syringe 10 Ml IV 10 ml PRN PRN Administration LINE FLUSH
--- NOTE | 2020-04-25 09:49 | Progress Note ---
Assessment and Plan Patient Sleeping at this time. Patient Obese and is On 4 litres O2. O2 saturation 97%. BIPAP standby in the room. No acute respiratory distress. Patient has history of smoking 2 packs a day x 30 years. Stopped smoking at least 10 years ago. Denies alcohol or drug abuse. Used work for [employer]. Patient and has 3 children. Allergic to multiple allergens Carrots, Erythromycin, Ltex, Peas and vancomycin. Patient intubated and extubated for acute respiratory failure. Chest xray 04/17/20 reported Stable bibasilar opacities. No pneumothorax. Patient afebrile but has leukocytosis. Patient is on albuterol aerosol treatments , S/C Heparin and famotidine. - Patient Problems (1) Acute respiratory failure Current Visit: Yes Status: Acute Qualifiers: Respiratory failure complication: hypoxia Qualified Code(s): J96.01 - Acute respiratory failure with hypoxia Plan to address problem: O2 4 litres via nasal canula. BIPAP standby in the room. Albuterol aerosol treatments. S/C Heparin. Famotidine. (2) Encephalopathy acute Current Visit: Yes Status: Acute Plan to address problem: Management as per primary care. (3) End stage renal disease Current Visit: Yes Status: Acute Plan to address problem: Management as per nephrology. (4) Hypertensive emergency Current Visit: Yes Status: Acute Plan to address problem: Management as per primary care. (5) Coronavirus infection Current Visit: No Status: Acute Plan to address problem: Test reported negative. (6) Diabetes Current Visit: No Status: Acute Plan to address problem: Management as per primary care. Subjective Date of service: 04/25/20 Principal diagnosis: Ac on ch hypoxemic and hypercapnic resp failure; PUI COVID- 19 infxn; AMS Interval history: Patient Sleeping at this time. Patient Obese and is On 4 litres O2. O2 saturation 97%. BIPAP standby in the room. No acute respiratory distress. Patient has history of smoking 2 packs a day x 30 years. Stopped smoking at least 10 years ago. Denies alcohol or drug abuse. Used work for [employer]. Patient and has 3 children. Allergic to multiple allergens Carrots, Erythromycin, Ltex, Peas and vancomycin. Patient intubated and extubated for acute respiratory failure. Chest xray 04/17/20 reported Stable bibasilar opacities. No pneumothorax. Patient afebrile but has leukocytosis. Patient is on albuterol aerosol treatments , S/C Heparin and famotidine. Objective Vital Signs - 12hr 04/24/20 04/24/20 04/24/20 22:00 22:37 23:04 Temperature 100.0 F H Pulse Rate 129 H 117 H Respiratory 21 Rate Blood Pressure 155/41 137/73 O2 Sat by Pulse 93 93 Oximetry 04/25/20 04/25/20 04/25/20 00:33 03:52 04:00 Temperature 99.9 F H Pulse Rate 111 H 118 H 98 H Respiratory 27 H 28 H 30 H Rate Blood Pressure 94/31 O2 Sat by Pulse 100 92 100 Oximetry 04/25/20 07:21 Temperature 98.0 F Pulse Rate 113 H Respiratory 18 Rate Blood Pressure 128/56 O2 Sat by Pulse 96 Oximetry Constitutional: no acute distress, asleep Eyes: non-icteric ENT: oropharynx moist, other Neck: supple, no lymphadenopathy, no JVD Effort: normal Ascultation: Bilateral: diminished breath sounds, wheezes, rhonchi (scant) Percussion: Bilateral: not dull Cardiovascular: regular rate and rhythm, other (S1,S2) Gastrointestinal: normoactive bowel sounds, soft, non-tender, non-distended (protuberant), other (Bains catheter) Integumentary: erythema (right BKA stump) Extremities: no cyanosis, no ischemia or petechiae, other (bilateral BKAs ) Neurologic: normal mental status, non-focal exam (grossly), pupils equal and round, motor strength normal and Psychiatric: affect normal, anxious CBC and BMP: 04/22/20 03:50 04/22/20 03:50 ABG, PT/INR, D-dimer: ABG ABG pH 7.486 (7.320-7.450) H 04/18/20 03:23 POC ABG pCO2 40.7 mmHg (32.0-48.0) 04/18/20 03:23 ABG pCO2 54.0 mm Hg 04/11/20 03:44 POC ABG pO2 56.4 mmHg (83-108) L 04/18/20 03:23 ABG pO2 73.4 mm Hg (80.0-90.0) L 04/11/20 03:44 POC ABG HCO3 30.0 04/18/20 03:23 ABG O2 Saturation 95.0 % (95.0-99.0) 04/11/20 03:44 PT/INR, D-dimer PT 13.8 Sec. (12.2-14.9) 04/06/20 14:30 INR 1.04 (0.87-1.13) 04/06/20 14:30 D-Dimer 1144.77 ng/mlDDU (0-234) H 04/18/20 06:48 Abnormal lab findings: Abnormal Labs 04/06/20 04/06/20 04/06/20 13:34 14:30 14:30 WBC 19.2 H RBC Hgb Hct RDW 17.8 H Plt Count Seg Neuts % (Manual) 90.0 H Lymphocytes % (Manual) 4.0 L Basophils % (Manual) Seg Neutrophils # Man 17.3 H Lymphocytes # (Manual) 0.8 L Monocytes # (Manual) Eosinophils # (Manual) Basophils # (Manual) D-Dimer ABG pH POC ABG pCO2 POC ABG pO2 ABG pO2 ABG HCO3 ABG Base Excess ABG Hemoglobin ABG Oxyhemoglobin ABG Sodium ABG Chloride ABG Glucose Oxyhemoglobin Sodium Potassium 5.2 H Chloride Carbon Dioxide 17 L BUN 53 H Creatinine 7.8 H Glucose 144 H POC Glucose Calcium Magnesium Ferritin Alkaline Phosphatase 738 H Lactate Dehydrogenase Total Creatine Kinase 23 L Troponin T 0.224 H* C-Reactive Protein Albumin 3.1 L Triglycerides 342 H Cholesterol 223 H HDL Cholesterol 35 L Arterial Blood Glucose Arterial Blood Ionized Calcium Urine WBC (Auto) > 182.0 H Salicylates Acetaminophen Hepatitis C Antibody 04/06/20 04/06/20 04/06/20 14:30 14:30 14:30 WBC RBC Hgb Hct RDW Plt Count Seg Neuts % (Manual) Lymphocytes % (Manual) Basophils % (Manual) Seg Neutrophils # Man Lymphocytes # (Manual) Monocytes # (Manual) Eosinophils # (Manual) Basophils # (Manual) D-Dimer ABG pH POC ABG pCO2 POC ABG pO2 ABG pO2 ABG HCO3 ABG Base Excess ABG Hemoglobin ABG Oxyhemoglobin ABG Sodium ABG Chloride ABG Glucose Oxyhemoglobin Sodium Potassium Chloride Carbon Dioxide BUN Creatinine Glucose POC Glucose Calcium Magnesium 2.50 H Ferritin Alkaline Phosphatase Lactate Dehydrogenase Total Creatine Kinase 24 L Troponin T C-Reactive Protein Albumin Triglycerides Cholesterol HDL Cholesterol Arterial Blood Glucose Arterial Blood Ionized Calcium Urine WBC (Auto) Salicylates < 0.3 L Acetaminophen 5.0 L Hepatitis C Antibody 04/06/20 04/06/20 04/07/20 14:39 20:00 00:48 WBC RBC Hgb Hct RDW Plt Count Seg Neuts % (Manual) Lymphocytes % (Manual) Basophils % (Manual) Seg Neutrophils # Man Lymphocytes # (Manual) Monocytes # (Manual) Eosinophils # (Manual) Basophils # (Manual) D-Dimer ABG pH 7.281 L 7.306 L POC ABG pCO2 POC ABG pO2 78.0 L ABG pO2 133.8 H ABG HCO3 18.3 L ABG Base Excess -7.8 L ABG Hemoglobin 10.8 L 10.8 L ABG Oxyhemoglobin ABG Sodium ABG Chloride 108.0 H ABG Glucose Oxyhemoglobin Sodium Potassium Chloride Carbon Dioxide BUN Creatinine Glucose POC Glucose 69 L Calcium Magnesium Ferritin Alkaline Phosphatase Lactate Dehydrogenase Total Creatine Kinase Troponin T C-Reactive Protein Albumin Triglycerides Cholesterol HDL Cholesterol Arterial Blood Glucose Arterial Blood Ionized Calcium Urine WBC (Auto) Salicylates Acetaminophen Hepatitis C Antibody 04/07/20 04/07/20 04/07/20 09:34 09:34 09:34 WBC RBC Hgb Hct RDW Plt Count Seg Neuts % (Manual) Lymphocytes % (Manual) Basophils % (Manual) Seg Neutrophils # Man Lymphocytes # (Manual) Monocytes # (Manual) Eosinophils # (Manual) Basophils # (Manual) D-Dimer 1063.66 H ABG pH POC ABG pCO2 POC ABG pO2 ABG pO2 ABG HCO3 ABG Base Excess ABG Hemoglobin ABG Oxyhemoglobin ABG Sodium ABG Chloride ABG Glucose Oxyhemoglobin Sodium Potassium Chloride Carbon Dioxide BUN Creatinine Glucose POC Glucose Calcium Magnesium Ferritin 743.0 H Alkaline Phosphatase Lactate Dehydrogenase 195 H Total Creatine Kinase Troponin T C-Reactive Protein 7.50 H Albumin Triglycerides Cholesterol HDL Cholesterol Arterial Blood Glucose Arterial Blood Ionized Calcium Urine WBC (Auto) Salicylates Acetaminophen Hepatitis C Antibody 04/07/20 04/07/20 04/07/20 10:01 16:38 23:51 WBC RBC Hgb Hct RDW Plt Count Seg Neuts % (Manual) Lymphocytes % (Manual) Basophils % (Manual) Seg Neutrophils # Man Lymphocytes # (Manual) Monocytes # (Manual) Eosinophils # (Manual) Basophils # (Manual) D-Dimer ABG pH POC ABG pCO2 POC ABG pO2 79.8 L ABG pO2 ABG HCO3 ABG Base Excess ABG Hemoglobin 10.3 L ABG Oxyhemoglobin ABG Sodium ABG Chloride 109.0 H ABG Glucose Oxyhemoglobin Sodium Potassium Chloride Carbon Dioxide BUN Creatinine Glucose POC Glucose 117 H Calcium Magnesium Ferritin Alkaline Phosphatase Lactate Dehydrogenase Total Creatine Kinase Troponin T C-Reactive Protein Albumin Triglycerides Cholesterol HDL Cholesterol Arterial Blood Glucose Arterial Blood Ionized Calcium 4.5 L Urine WBC (Auto) Salicylates Acetaminophen Hepatitis C Antibody Reactive A 04/08/20 04/08/20 04/08/20 04:58 12:48 17:03 WBC RBC Hgb Hct RDW Plt Count Seg Neuts % (Manual) Lymphocytes % (Manual) Basophils % (Manual) Seg Neutrophils # Man Lymphocytes # (Manual) Monocytes # (Manual) Eosinophils # (Manual) Basophils # (Manual) D-Dimer ABG pH POC ABG pCO2 POC ABG pO2 ABG pO2 ABG HCO3 ABG Base Excess ABG Hemoglobin ABG Oxyhemoglobin ABG Sodium ABG Chloride ABG Glucose Oxyhemoglobin Sodium Potassium Chloride Carbon Dioxide BUN Creatinine Glucose POC Glucose 129 H 155 H 201 H Calcium Magnesium Ferritin Alkaline Phosphatase Lactate Dehydrogenase Total Creatine Kinase Troponin T C-Reactive Protein Albumin Triglycerides Cholesterol HDL Cholesterol Arterial Blood Glucose Arterial Blood Ionized Calcium Urine WBC (Auto) Salicylates Acetaminophen Hepatitis C Antibody 04/08/20 04/08/20 04/09/20 23:49 Unknown 05:31 WBC RBC Hgb Hct RDW Plt Count Seg Neuts % (Manual) Lymphocytes % (Manual) Basophils % (Manual) Seg Neutrophils # Man Lymphocytes # (Manual) Monocytes # (Manual) Eosinophils # (Manual) Basophils # (Manual) D-Dimer ABG pH 7.349 L POC ABG pCO2 POC ABG pO2 ABG pO2 117.3 H ABG HCO3 ABG Base Excess ABG Hemoglobin 7.4 L ABG Oxyhemoglobin ABG Sodium ABG Chloride ABG Glucose Oxyhemoglobin Sodium Potassium Chloride Carbon Dioxide BUN Creatinine Glucose POC Glucose 178 H 248 H Calcium Magnesium Ferritin Alkaline Phosphatase Lactate Dehydrogenase Total Creatine Kinase Troponin T C-Reactive Protein Albumin Triglycerides Cholesterol HDL Cholesterol Arterial Blood Glucose Arterial Blood Ionized Calcium Urine WBC (Auto) Salicylates Acetaminophen Hepatitis C Antibody 04/09/20 04/09/20 04/09/20 11:39 17:35 Unknown WBC RBC Hgb Hct RDW Plt Count Seg Neuts % (Manual) Lymphocytes % (Manual) Basophils % (Manual) Seg Neutrophils # Man Lymphocytes # (Manual) Monocytes # (Manual) Eosinophils # (Manual) Basophils # (Manual) D-Dimer ABG pH POC ABG pCO2 51.6 H POC ABG pO2 ABG pO2 ABG HCO3 ABG Base Excess ABG Hemoglobin 11.4 L ABG Oxyhemoglobin ABG Sodium 130.1 L ABG Chloride ABG Glucose 249 H Oxyhemoglobin Sodium Potassium Chloride Carbon Dioxide BUN Creatinine Glucose POC Glucose 319 H 254 H Calcium Magnesium Ferritin Alkaline Phosphatase Lactate Dehydrogenase Total Creatine Kinase Troponin T C-Reactive Protein Albumin Triglycerides Cholesterol HDL Cholesterol Arterial Blood Glucose 249 H Arterial Blood Ionized Calcium 4.1 L Urine WBC (Auto) Salicylates Acetaminophen Hepatitis C Antibody 04/10/20 04/10/20 04/10/20 00:00 03:15 05:49 WBC RBC Hgb Hct RDW Plt Count Seg Neuts % (Manual) Lymphocytes % (Manual) Basophils % (Manual) Seg Neutrophils # Man Lymphocytes # (Manual) Monocytes # (Manual) Eosinophils # (Manual) Basophils # (Manual) D-Dimer ABG pH POC ABG pCO2 48.2 H POC ABG pO2 ABG pO2 ABG HCO3 ABG Base Excess ABG Hemoglobin 9.9 L ABG Oxyhemoglobin ABG Sodium 135.4 L ABG Chloride ABG Glucose 215 H Oxyhemoglobin Sodium Potassium Chloride Carbon Dioxide BUN Creatinine Glucose POC Glucose 194 H 221 H Calcium Magnesium Ferritin Alkaline Phosphatase Lactate Dehydrogenase Total Creatine Kinase Troponin T C-Reactive Protein Albumin Triglycerides Cholesterol HDL Cholesterol Arterial Blood Glucose 215 H Arterial Blood Ionized Calcium 4.5 L Urine WBC (Auto) Salicylates Acetaminophen Hepatitis C Antibody 04/10/20 04/10/20 04/10/20 08:18 08:18 12:22 WBC 28.9 H RBC 3.38 L Hgb 9.5 L Hct 30.1 L RDW 16.9 H Plt Count Seg Neuts % (Manual) 87.0 H Lymphocytes % (Manual) 9.0 L Basophils % (Manual) 2.0 H Seg Neutrophils # Man 25.1 H Lymphocytes # (Manual) Monocytes # (Manual) Eosinophils # (Manual) Basophils # (Manual) 0.6 H D-Dimer ABG pH POC ABG pCO2 POC ABG pO2 ABG pO2 ABG HCO3 ABG Base Excess ABG Hemoglobin ABG Oxyhemoglobin ABG Sodium ABG Chloride ABG Glucose Oxyhemoglobin Sodium 134 L Potassium 3.5 L D Chloride 94.9 L Carbon Dioxide BUN 38 H Creatinine 5.5 H Glucose 230 H POC Glucose 218 H Calcium Magnesium Ferritin Alkaline Phosphatase Lactate Dehydrogenase Total Creatine Kinase Troponin T C-Reactive Protein Albumin Triglycerides Cholesterol HDL Cholesterol Arterial Blood Glucose Arterial Blood Ionized Calcium Urine WBC (Auto) Salicylates Acetaminophen Hepatitis C Antibody 04/10/20 04/10/20 04/10/20 17:27 18:08 23:29 WBC RBC Hgb Hct RDW Plt Count Seg Neuts % (Manual) Lymphocytes % (Manual) Basophils % (Manual) Seg Neutrophils # Man Lymphocytes # (Manual) Monocytes # (Manual) Eosinophils # (Manual) Basophils # (Manual) D-Dimer ABG pH POC ABG pCO2 POC ABG pO2 ABG pO2 ABG HCO3 ABG Base Excess ABG Hemoglobin ABG Oxyhemoglobin ABG Sodium ABG Chloride ABG Glucose Oxyhemoglobin Sodium Potassium Chloride Carbon Dioxide BUN Creatinine Glucose POC Glucose 218 H 223 H 166 H Calcium Magnesium Ferritin Alkaline Phosphatase Lactate Dehydrogenase Total Creatine Kinase Troponin T C-Reactive Protein Albumin Triglycerides Cholesterol HDL Cholesterol Arterial Blood Glucose Arterial Blood Ionized Calcium Urine WBC (Auto) Salicylates Acetaminophen Hepatitis C Antibody 04/11/20 04/11/20 04/11/20 03:44 05:28 07:39 WBC 26.9 H RBC 3.32 L Hgb 9.4 L Hct 29.5 L RDW 17.2 H Plt Count Seg Neuts % (Manual) 83.0 H Lymphocytes % (Manual) 10.0 L Basophils % (Manual) Seg Neutrophils # Man 22.3 H Lymphocytes # (Manual) Monocytes # (Manual) 1.1 H Eosinophils # (Manual) 0.5 H Basophils # (Manual) D-Dimer ABG pH 7.313 L POC ABG pCO2 POC ABG pO2 ABG pO2 73.4 L ABG HCO3 26.7 H ABG Base Excess ABG Hemoglobin 11.0 L ABG Oxyhemoglobin ABG Sodium ABG Chloride ABG Glucose Oxyhemoglobin 92.8 L Sodium Potassium Chloride Carbon Dioxide BUN Creatinine Glucose POC Glucose 164 H Calcium Magnesium Ferritin Alkaline Phosphatase Lactate Dehydrogenase Total Creatine Kinase Troponin T C-Reactive Protein Albumin Triglycerides Cholesterol HDL Cholesterol Arterial Blood Glucose Arterial Blood Ionized Calcium Urine WBC (Auto) Salicylates Acetaminophen Hepatitis C Antibody 04/11/20 04/11/20 04/11/20 07:39 12:25 19:02 WBC RBC Hgb Hct RDW Plt Count Seg Neuts % (Manual) Lymphocytes % (Manual) Basophils % (Manual) Seg Neutrophils # Man Lymphocytes # (Manual) Monocytes # (Manual) Eosinophils # (Manual) Basophils # (Manual) D-Dimer ABG pH POC ABG pCO2 POC ABG pO2 ABG pO2 ABG HCO3 ABG Base Excess ABG Hemoglobin ABG Oxyhemoglobin ABG Sodium ABG Chloride ABG Glucose Oxyhemoglobin Sodium Potassium Chloride Carbon Dioxide BUN 48 H Creatinine 6.1 H Glucose 122 H POC Glucose 175 H 175 H Calcium 8.3 L Magnesium Ferritin Alkaline Phosphatase Lactate Dehydrogenase Total Creatine Kinase Troponin T C-Reactive Protein Albumin Triglycerides Cholesterol HDL Cholesterol Arterial Blood Glucose Arterial Blood Ionized Calcium Urine WBC (Auto) Salicylates Acetaminophen Hepatitis C Antibody 04/12/20 04/12/20 04/12/20 00:02 05:51 08:14 WBC 28.0 H RBC 3.29 L Hgb 9.5 L Hct 29.1 L RDW 16.9 H Plt Count Seg Neuts % (Manual) 88.0 H Lymphocytes % (Manual) 7.0 L Basophils % (Manual) Seg Neutrophils # Man 24.6 H Lymphocytes # (Manual) Monocytes # (Manual) Eosinophils # (Manual) 0.6 H Basophils # (Manual) D-Dimer ABG pH POC ABG pCO2 POC ABG pO2 ABG pO2 ABG HCO3 ABG Base Excess ABG Hemoglobin ABG Oxyhemoglobin ABG Sodium ABG Chloride ABG Glucose Oxyhemoglobin Sodium Potassium Chloride Carbon Dioxide BUN Creatinine Glucose POC Glucose 146 H 151 H Calcium Magnesium Ferritin Alkaline Phosphatase Lactate Dehydrogenase Total Creatine Kinase Troponin T C-Reactive Protein Albumin Triglycerides Cholesterol HDL Cholesterol Arterial Blood Glucose Arterial Blood Ionized Calcium Urine WBC (Auto) Salicylates Acetaminophen Hepatitis C Antibody 04/12/20 04/12/20 04/12/20 08:14 12:21 17:26 WBC RBC Hgb Hct RDW Plt Count Seg Neuts % (Manual) Lymphocytes % (Manual) Basophils % (Manual) Seg Neutrophils # Man Lymphocytes # (Manual) Monocytes # (Manual) Eosinophils # (Manual) Basophils # (Manual) D-Dimer ABG pH POC ABG pCO2 POC ABG pO2 ABG pO2 ABG HCO3 ABG Base Excess ABG Hemoglobin ABG Oxyhemoglobin ABG Sodium ABG Chloride ABG Glucose Oxyhemoglobin Sodium Potassium 3.3 L Chloride Carbon Dioxide BUN 32 H Creatinine 4.3 H Glucose 188 H POC Glucose 196 H 235 H Calcium Magnesium Ferritin Alkaline Phosphatase Lactate Dehydrogenase Total Creatine Kinase Troponin T C-Reactive Protein Albumin Triglycerides Cholesterol HDL Cholesterol Arterial Blood Glucose Arterial Blood Ionized Calcium Urine WBC (Auto) Salicylates Acetaminophen Hepatitis C Antibody 04/12/20 04/13/20 04/13/20 23:34 03:40 05:33 WBC RBC Hgb Hct RDW Plt Count Seg Neuts % (Manual) Lymphocytes % (Manual) Basophils % (Manual) Seg Neutrophils # Man Lymphocytes # (Manual) Monocytes # (Manual) Eosinophils # (Manual) Basophils # (Manual) D-Dimer ABG pH POC ABG pCO2 POC ABG pO2 ABG pO2 ABG HCO3 ABG Base Excess ABG Hemoglobin 9.4 L ABG Oxyhemoglobin ABG Sodium 133.6 L ABG Chloride ABG Glucose 172 H Oxyhemoglobin Sodium Potassium Chloride Carbon Dioxide BUN Creatinine Glucose POC Glucose 171 H 167 H Calcium Magnesium Ferritin Alkaline Phosphatase Lactate Dehydrogenase Total Creatine Kinase Troponin T C-Reactive Protein Albumin Triglycerides Cholesterol HDL Cholesterol Arterial Blood Glucose 172 H Arterial Blood Ionized Calcium Urine WBC (Auto) Salicylates Acetaminophen Hepatitis C Antibody 04/13/20 04/13/20 04/13/20 07:49 09:09 11:34 WBC RBC Hgb Hct RDW Plt Count Seg Neuts % (Manual) Lymphocytes % (Manual) Basophils % (Manual) Seg Neutrophils # Man Lymphocytes # (Manual) Monocytes # (Manual) Eosinophils # (Manual) Basophils # (Manual) D-Dimer ABG pH POC ABG pCO2 POC ABG pO2 ABG pO2 ABG HCO3 ABG Base Excess ABG Hemoglobin ABG Oxyhemoglobin ABG Sodium ABG Chloride ABG Glucose Oxyhemoglobin Sodium Potassium Chloride Carbon Dioxide 31 H BUN 44 H 43 H Creatinine 5.0 H 4.9 H Glucose 164 H 164 H POC Glucose 155 H Calcium Magnesium Ferritin Alkaline Phosphatase Lactate Dehydrogenase Total Creatine Kinase Troponin T C-Reactive Protein Albumin Triglycerides Cholesterol HDL Cholesterol Arterial Blood Glucose Arterial Blood Ionized Calcium Urine WBC (Auto) Salicylates Acetaminophen Hepatitis C Antibody 04/13/20 04/13/20 04/14/20 17:38 23:40 04:35 WBC RBC Hgb Hct RDW Plt Count Seg Neuts % (Manual) Lymphocytes % (Manual) Basophils % (Manual) Seg Neutrophils # Man Lymphocytes # (Manual) Monocytes # (Manual) Eosinophils # (Manual) Basophils # (Manual) D-Dimer ABG pH POC ABG pCO2 POC ABG pO2 ABG pO2 ABG HCO3 ABG Base Excess ABG Hemoglobin ABG Oxyhemoglobin ABG Sodium ABG Chloride ABG Glucose Oxyhemoglobin Sodium Potassium Chloride Carbon Dioxide BUN Creatinine Glucose POC Glucose 180 H 130 H 121 H Calcium Magnesium Ferritin Alkaline Phosphatase Lactate Dehydrogenase Total Creatine Kinase Troponin T C-Reactive Protein Albumin Triglycerides Cholesterol HDL Cholesterol Arterial Blood Glucose Arterial Blood Ionized Calcium Urine WBC (Auto) Salicylates Acetaminophen Hepatitis C Antibody 04/14/20 04/14/20 04/15/20 12:17 17:06 00:11 WBC RBC Hgb Hct RDW Plt Count Seg Neuts % (Manual) Lymphocytes % (Manual) Basophils % (Manual) Seg Neutrophils # Man Lymphocytes # (Manual) Monocytes # (Manual) Eosinophils # (Manual) Basophils # (Manual) D-Dimer ABG pH POC ABG pCO2 POC ABG pO2 ABG pO2 ABG HCO3 ABG Base Excess ABG Hemoglobin ABG Oxyhemoglobin ABG Sodium ABG Chloride ABG Glucose Oxyhemoglobin Sodium Potassium Chloride Carbon Dioxide BUN Creatinine Glucose POC Glucose 170 H 177 H 156 H Calcium Magnesium Ferritin Alkaline Phosphatase Lactate Dehydrogenase Total Creatine Kinase Troponin T C-Reactive Protein Albumin Triglycerides Cholesterol HDL Cholesterol Arterial Blood Glucose Arterial Blood Ionized Calcium Urine WBC (Auto) Salicylates Acetaminophen Hepatitis C Antibody 04/15/20 04/15/20 04/15/20 05:09 11:45 17:12 WBC RBC Hgb Hct RDW Plt Count Seg Neuts % (Manual) Lymphocytes % (Manual) Basophils % (Manual) Seg Neutrophils # Man Lymphocytes # (Manual) Monocytes # (Manual) Eosinophils # (Manual) Basophils # (Manual) D-Dimer ABG pH POC ABG pCO2 POC ABG pO2 ABG pO2 ABG HCO3 ABG Base Excess ABG Hemoglobin ABG Oxyhemoglobin ABG Sodium ABG Chloride ABG Glucose Oxyhemoglobin Sodium Potassium Chloride Carbon Dioxide BUN Creatinine Glucose POC Glucose 141 H 154 H 177 H Calcium Magnesium Ferritin Alkaline Phosphatase Lactate Dehydrogenase Total Creatine Kinase Troponin T C-Reactive Protein Albumin Triglycerides Cholesterol HDL Cholesterol Arterial Blood Glucose Arterial Blood Ionized Calcium Urine WBC (Auto) Salicylates Acetaminophen Hepatitis C Antibody 04/16/20 04/16/20 04/16/20 05:11 12:13 17:31 WBC RBC Hgb Hct RDW Plt Count Seg Neuts % (Manual) Lymphocytes % (Manual) Basophils % (Manual) Seg Neutrophils # Man Lymphocytes # (Manual) Monocytes # (Manual) Eosinophils # (Manual) Basophils # (Manual) D-Dimer ABG pH POC ABG pCO2 POC ABG pO2 ABG pO2 ABG HCO3 ABG Base Excess ABG Hemoglobin ABG Oxyhemoglobin ABG Sodium ABG Chloride ABG Glucose Oxyhemoglobin Sodium Potassium Chloride Carbon Dioxide BUN Creatinine Glucose POC Glucose 115 H 122 H 188 H Calcium Magnesium Ferritin Alkaline Phosphatase Lactate Dehydrogenase Total Creatine Kinase Troponin T C-Reactive Protein Albumin Triglycerides Cholesterol HDL Cholesterol Arterial Blood Glucose Arterial Blood Ionized Calcium Urine WBC (Auto) Salicylates Acetaminophen Hepatitis C Antibody 04/16/20 04/17/20 04/17/20 23:47 05:44 05:44 WBC 19.5 H RBC 3.26 L Hgb 9.3 L Hct 28.7 L RDW 15.9 H Plt Count 604 H Seg Neuts % (Manual) 81.0 H Lymphocytes % (Manual) 11.0 L Basophils % (Manual) Seg Neutrophils # Man 15.8 H Lymphocytes # (Manual) Monocytes # (Manual) Eosinophils # (Manual) 0.6 H Basophils # (Manual) 0.2 H D-Dimer ABG pH POC ABG pCO2 POC ABG pO2 ABG pO2 ABG HCO3 ABG Base Excess ABG Hemoglobin ABG Oxyhemoglobin ABG Sodium ABG Chloride ABG Glucose Oxyhemoglobin Sodium Potassium Chloride Carbon Dioxide BUN 28 H Creatinine 3.3 H Glucose 130 H POC Glucose 156 H Calcium Magnesium Ferritin Alkaline Phosphatase Lactate Dehydrogenase Total Creatine Kinase Troponin T C-Reactive Protein Albumin Triglycerides Cholesterol HDL Cholesterol Arterial Blood Glucose Arterial Blood Ionized Calcium Urine WBC (Auto) Salicylates Acetaminophen Hepatitis C Antibody 04/17/20 04/17/20 04/17/20 12:57 17:18 22:04 WBC RBC Hgb Hct RDW Plt Count Seg Neuts % (Manual) Lymphocytes % (Manual) Basophils % (Manual) Seg Neutrophils # Man Lymphocytes # (Manual) Monocytes # (Manual) Eosinophils # (Manual) Basophils # (Manual) D-Dimer ABG pH 7.553 H POC ABG pCO2 POC ABG pO2 206.5 H ABG pO2 ABG HCO3 ABG Base Excess ABG Hemoglobin 11.2 L ABG Oxyhemoglobin 99.1 H ABG Sodium 133.0 L ABG Chloride ABG Glucose 183 H Oxyhemoglobin Sodium Potassium Chloride Carbon Dioxide BUN Creatinine Glucose POC Glucose 146 H 156 H Calcium Magnesium Ferritin Alkaline Phosphatase Lactate Dehydrogenase Total Creatine Kinase Troponin T C-Reactive Protein Albumin Triglycerides Cholesterol HDL Cholesterol Arterial Blood Glucose 183 H Arterial Blood Ionized Calcium 4.4 L Urine WBC (Auto) Salicylates Acetaminophen Hepatitis C Antibody 04/17/20 04/18/20 04/18/20 23:29 03:23 04:43 WBC RBC Hgb Hct RDW Plt Count Seg Neuts % (Manual) Lymphocytes % (Manual) Basophils % (Manual) Seg Neutrophils # Man Lymphocytes # (Manual) Monocytes # (Manual) Eosinophils # (Manual) Basophils # (Manual) D-Dimer ABG pH 7.486 H POC ABG pCO2 POC ABG pO2 56.4 L ABG pO2 ABG HCO3 ABG Base Excess ABG Hemoglobin 11.2 L ABG Oxyhemoglobin 92.0 L ABG Sodium 135.1 L ABG Chloride ABG Glucose 138 H Oxyhemoglobin Sodium Potassium Chloride Carbon Dioxide BUN Creatinine Glucose POC Glucose 125 H 119 H Calcium Magnesium Ferritin Alkaline Phosphatase Lactate Dehydrogenase Total Creatine Kinase Troponin T C-Reactive Protein Albumin Triglycerides Cholesterol HDL Cholesterol Arterial Blood Glucose 138 H Arterial Blood Ionized Calcium 4.5 L Urine WBC (Auto) Salicylates Acetaminophen Hepatitis C Antibody 04/18/20 04/18/20 04/18/20 06:48 06:48 06:48 WBC 38.7 H RBC Hgb Hct RDW 16.3 H Plt Count 597 H Seg Neuts % (Manual) Lymphocytes % (Manual) Basophils % (Manual) Seg Neutrophils # Man Lymphocytes # (Manual) Monocytes # (Manual) Eosinophils # (Manual) Basophils # (Manual) D-Dimer 1144.77 H ABG pH POC ABG pCO2 POC ABG pO2 ABG pO2 ABG HCO3 ABG Base Excess ABG Hemoglobin ABG Oxyhemoglobin ABG Sodium ABG Chloride ABG Glucose Oxyhemoglobin Sodium 134 L Potassium Chloride 96.4 L Carbon Dioxide BUN 19 H Creatinine 2.6 H Glucose 104 H POC Glucose Calcium Magnesium Ferritin Alkaline Phosphatase 413 H Lactate Dehydrogenase Total Creatine Kinase Troponin T C-Reactive Protein Albumin 2.8 L Triglycerides Cholesterol HDL Cholesterol Arterial Blood Glucose Arterial Blood Ionized Calcium Urine WBC (Auto) Salicylates Acetaminophen Hepatitis C Antibody 04/18/20 04/18/20 04/19/20 11:33 17:18 06:24 WBC 28.9 H RBC 3.33 L Hgb 9.5 L Hct 29.5 L RDW 16.0 H Plt Count 577 H Seg Neuts % (Manual) Lymphocytes % (Manual) Basophils % (Manual) Seg Neutrophils # Man Lymphocytes # (Manual) Monocytes # (Manual) Eosinophils # (Manual) Basophils # (Manual) D-Dimer ABG pH POC ABG pCO2 POC ABG pO2 ABG pO2 ABG HCO3 ABG Base Excess ABG Hemoglobin ABG Oxyhemoglobin ABG Sodium ABG Chloride ABG Glucose Oxyhemoglobin Sodium Potassium Chloride Carbon Dioxide BUN Creatinine Glucose POC Glucose 195 H 162 H Calcium Magnesium Ferritin Alkaline Phosphatase Lactate Dehydrogenase Total Creatine Kinase Troponin T C-Reactive Protein Albumin Triglycerides Cholesterol HDL Cholesterol Arterial Blood Glucose Arterial Blood Ionized Calcium Urine WBC (Auto) Salicylates Acetaminophen Hepatitis C Antibody 04/19/20 04/19/20 04/20/20 06:24 17:28 07:50 WBC 22.7 H RBC 3.43 L Hgb 9.6 L Hct RDW 15.9 H Plt Count 530 H Seg Neuts % (Manual) Lymphocytes % (Manual) Basophils % (Manual) Seg Neutrophils # Man Lymphocytes # (Manual) Monocytes # (Manual) Eosinophils # (Manual) Basophils # (Manual) D-Dimer ABG pH POC ABG pCO2 POC ABG pO2 ABG pO2 ABG HCO3 ABG Base Excess ABG Hemoglobin ABG Oxyhemoglobin ABG Sodium ABG Chloride ABG Glucose Oxyhemoglobin Sodium Potassium Chloride Carbon Dioxide 31 H D BUN 27 H Creatinine 3.8 H Glucose POC Glucose 114 H Calcium Magnesium Ferritin Alkaline Phosphatase 343 H Lactate Dehydrogenase Total Creatine Kinase Troponin T C-Reactive Protein Albumin 2.8 L Triglycerides Cholesterol HDL Cholesterol Arterial Blood Glucose Arterial Blood Ionized Calcium Urine WBC (Auto) Salicylates Acetaminophen Hepatitis C Antibody 04/20/20 04/21/20 04/21/20 07:50 00:42 04:32 WBC 16.4 H RBC 3.37 L Hgb 9.7 L Hct 30.0 L RDW 15.6 H Plt Count 597 H Seg Neuts % (Manual) Lymphocytes % (Manual) Basophils % (Manual) Seg Neutrophils # Man Lymphocytes # (Manual) Monocytes # (Manual) Eosinophils # (Manual) Basophils # (Manual) D-Dimer ABG pH POC ABG pCO2 POC ABG pO2 ABG pO2 ABG HCO3 ABG Base Excess ABG Hemoglobin ABG Oxyhemoglobin ABG Sodium ABG Chloride ABG Glucose Oxyhemoglobin Sodium Potassium Chloride Carbon Dioxide 31 H BUN Creatinine 2.8 H Glucose POC Glucose 119 H Calcium Magnesium Ferritin Alkaline Phosphatase Lactate Dehydrogenase Total Creatine Kinase Troponin T C-Reactive Protein Albumin Triglycerides Cholesterol HDL Cholesterol Arterial Blood Glucose Arterial Blood Ionized Calcium Urine WBC (Auto) Salicylates Acetaminophen Hepatitis C Antibody 04/21/20 04/21/20 04/21/20 04:32 16:30 17:43 WBC RBC Hgb Hct RDW Plt Count Seg Neuts % (Manual) Lymphocytes % (Manual) Basophils % (Manual) Seg Neutrophils # Man Lymphocytes # (Manual) Monocytes # (Manual) Eosinophils # (Manual) Basophils # (Manual) D-Dimer ABG pH POC ABG pCO2 POC ABG pO2 ABG pO2 ABG HCO3 ABG Base Excess ABG Hemoglobin ABG Oxyhemoglobin ABG Sodium ABG Chloride ABG Glucose Oxyhemoglobin Sodium Potassium Chloride Carbon Dioxide BUN 25 H Creatinine 3.9 H Glucose 106 H POC Glucose 149 H 171 H Calcium Magnesium Ferritin Alkaline Phosphatase 324 H Lactate Dehydrogenase Total Creatine Kinase Troponin T C-Reactive Protein Albumin 3.0 L Triglycerides Cholesterol HDL Cholesterol Arterial Blood Glucose Arterial Blood Ionized Calcium Urine WBC (Auto) Salicylates Acetaminophen Hepatitis C Antibody 04/22/20 04/22/20 04/22/20 00:59 03:50 03:50 WBC 15.5 H RBC Hgb Hct RDW Plt Count 629 H Seg Neuts % (Manual) Lymphocytes % (Manual) Basophils % (Manual) Seg Neutrophils # Man Lymphocytes # (Manual) Monocytes # (Manual) Eosinophils # (Manual) Basophils # (Manual) D-Dimer ABG pH POC ABG pCO2 POC ABG pO2 ABG pO2 ABG HCO3 ABG Base Excess ABG Hemoglobin ABG Oxyhemoglobin ABG Sodium ABG Chloride ABG Glucose Oxyhemoglobin Sodium Potassium Chloride Carbon Dioxide BUN Creatinine 2.6 H Glucose 131 H POC Glucose 128 H Calcium Magnesium Ferritin Alkaline Phosphatase Lactate Dehydrogenase Total Creatine Kinase Troponin T C-Reactive Protein Albumin Triglycerides Cholesterol HDL Cholesterol Arterial Blood Glucose Arterial Blood Ionized Calcium Urine WBC (Auto) Salicylates Acetaminophen Hepatitis C Antibody 04/22/20 04/22/20 04/22/20 05:38 07:50 11:44 WBC RBC Hgb Hct RDW Plt Count Seg Neuts % (Manual) Lymphocytes % (Manual) Basophils % (Manual) Seg Neutrophils # Man Lymphocytes # (Manual) Monocytes # (Manual) Eosinophils # (Manual) Basophils # (Manual) D-Dimer ABG pH POC ABG pCO2 POC ABG pO2 ABG pO2 ABG HCO3 ABG Base Excess ABG Hemoglobin ABG Oxyhemoglobin ABG Sodium ABG Chloride ABG Glucose Oxyhemoglobin Sodium Potassium Chloride Carbon Dioxide BUN Creatinine Glucose POC Glucose 115 H 147 H 175 H Calcium Magnesium Ferritin Alkaline Phosphatase Lactate Dehydrogenase Total Creatine Kinase Troponin T C-Reactive Protein Albumin Triglycerides Cholesterol HDL Cholesterol Arterial Blood Glucose Arterial Blood Ionized Calcium Urine WBC (Auto) Salicylates Acetaminophen Hepatitis C Antibody 04/22/20 04/23/20 04/23/20 16:41 00:12 08:26 WBC RBC Hgb Hct RDW Plt Count Seg Neuts % (Manual) Lymphocytes % (Manual) Basophils % (Manual) Seg Neutrophils # Man Lymphocytes # (Manual) Monocytes # (Manual) Eosinophils # (Manual) Basophils # (Manual) D-Dimer ABG pH POC ABG pCO2 POC ABG pO2 ABG pO2 ABG HCO3 ABG Base Excess ABG Hemoglobin ABG Oxyhemoglobin ABG Sodium ABG Chloride ABG Glucose Oxyhemoglobin Sodium Potassium Chloride Carbon Dioxide BUN Creatinine Glucose POC Glucose 180 H 175 H Calcium Magnesium Ferritin Alkaline Phosphatase 308 H Lactate Dehydrogenase Total Creatine Kinase Troponin T C-Reactive Protein Albumin 3.2 L Triglycerides Cholesterol HDL Cholesterol Arterial Blood Glucose Arterial Blood Ionized Calcium Urine WBC (Auto) Salicylates Acetaminophen Hepatitis C Antibody 04/23/20 04/23/20 04/23/20 08:44 12:36 16:43 WBC RBC Hgb Hct RDW Plt Count Seg Neuts % (Manual) Lymphocytes % (Manual) Basophils % (Manual) Seg Neutrophils # Man Lymphocytes # (Manual) Monocytes # (Manual) Eosinophils # (Manual) Basophils # (Manual) D-Dimer ABG pH POC ABG pCO2 POC ABG pO2 ABG pO2 ABG HCO3 ABG Base Excess ABG Hemoglobin ABG Oxyhemoglobin ABG Sodium ABG Chloride ABG Glucose Oxyhemoglobin Sodium Potassium Chloride Carbon Dioxide BUN Creatinine Glucose POC Glucose 171 H 165 H 196 H Calcium Magnesium Ferritin Alkaline Phosphatase Lactate Dehydrogenase Total Creatine Kinase Troponin T C-Reactive Protein Albumin Triglycerides Cholesterol HDL Cholesterol Arterial Blood Glucose Arterial Blood Ionized Calcium Urine WBC (Auto) Salicylates Acetaminophen Hepatitis C Antibody 04/24/20 04/24/20 04/24/20 00:08 09:09 16:42 WBC RBC Hgb Hct RDW Plt Count Seg Neuts % (Manual) Lymphocytes % (Manual) Basophils % (Manual) Seg Neutrophils # Man Lymphocytes # (Manual) Monocytes # (Manual) Eosinophils # (Manual) Basophils # (Manual) D-Dimer ABG pH POC ABG pCO2 POC ABG pO2 ABG pO2 ABG HCO3 ABG Base Excess ABG Hemoglobin ABG Oxyhemoglobin ABG Sodium ABG Chloride ABG Glucose Oxyhemoglobin Sodium Potassium Chloride Carbon Dioxide BUN Creatinine Glucose POC Glucose 150 H 165 H 166 H Calcium Magnesium Ferritin Alkaline Phosphatase Lactate Dehydrogenase Total Creatine Kinase Troponin T C-Reactive Protein Albumin Triglycerides Cholesterol HDL Cholesterol Arterial Blood Glucose Arterial Blood Ionized Calcium Urine WBC (Auto) Salicylates Acetaminophen Hepatitis C Antibody 04/24/20 04/25/20 22:44 05:23 WBC RBC Hgb Hct RDW Plt Count Seg Neuts % (Manual) Lymphocytes % (Manual) Basophils % (Manual) Seg Neutrophils # Man Lymphocytes # (Manual) Monocytes # (Manual) Eosinophils # (Manual) Basophils # (Manual) D-Dimer ABG pH POC ABG pCO2 POC ABG pO2 ABG pO2 ABG HCO3 ABG Base Excess ABG Hemoglobin ABG Oxyhemoglobin ABG Sodium ABG Chloride ABG Glucose Oxyhemoglobin Sodium Potassium Chloride Carbon Dioxide BUN Creatinine Glucose POC Glucose 226 H 293 H Calcium Magnesium Ferritin Alkaline Phosphatase Lactate Dehydrogenase Total Creatine Kinase Troponin T C-Reactive Protein Albumin Triglycerides Cholesterol HDL Cholesterol Arterial Blood Glucose Arterial Blood Ionized Calcium Urine WBC (Auto) Salicylates Acetaminophen Hepatitis C Antibody Allied health notes reviewed: RT
[2020-04-25] MEDS: CALCIUM ACETATE 667 MG CAP PO SCH ×3 (09:52→17:40)
[2020-04-25] MEDS: PANTOPRAZOLE 40 MG TAB PO SCH (09:52)
[2020-04-25] MEDS: ARIPiprazole 5 MG TAB PO SCH (09:52)
[2020-04-25] MEDS: FAMOTIDINE 20 MG TAB PO SCH (09:53)
[2020-04-25] MEDS: LOSARTAN 25 MG TAB PO SCH (09:53)
[2020-04-25] MEDS: FE FUMARATE/FA/MV, MIN COMB#15 CAP (HEMOCYTE PLUS) PO SCH (09:53)
[2020-04-25] MEDS: carvediloL 6.25 MG TAB PO SCH ×2 (09:53→22:19)
--- NOTE | 2020-04-25 10:26 | Fluoroscopy Report ---
MODIFIED BARIUM SWALLOW INDICATION: DYSPHAGIA, poss aspiration TECHNIQUE: Swallowing was evaluated in the lateral position under direct fluoroscopy. FINDINGS: The patient was evaluated with puree and semisolid consistencies. The patient was uncooper ative during this exam. The patient would only swallow small amounts of puree and semisolid consistencies. Delay in swallowin g was noted. No obvious aspiration or penetration was witnessed on this limited exam. Please correlat e with the formal report by speech therapy. IMPRESSION: Unremarkable exam. Fluoroscopic time: 1 minute 49 seconds Number of fluoroscopic images: 1 Signer Name: Barrie Valentin Jr, MD Signed: 04/25/2020 10:21 AM Workstation Name: [id number]
[2020-04-25] MEDS: CEFEPIME/NS 1 GM/100 ML 1 GM/100 ML BAG IV SCH (10:59)
[2020-04-25] MEDS: HEPARIN 5,000 UNIT/1 ML VIAL SUB-Q SCH ×2 (10:59→22:18)
[2020-04-25] MEDS: INSULIN GLARGINE 100 UNITS/ML SUB-Q SCH (11:12)
--- NOTE | 2020-04-25 12:03 | Progress Note ---
Assessment and Plan Assessment and plan: 49 years old female with history of asthma, hypertension, end-stage renal disease on hemodialysis, diabetes mellitus, bipolar disorder, morbid obesity, CVA, resident of a assisted, admitted on 04/06/2020 secondary to be found Unresponsiveness after hemodialysis. Patient is unable to provide history, currently intubated. Patient received hemodialysis and after completion she became unresponsive. Upon EMS arrival, blood pressure was 90/60, HR 88, temperature 97.2. Per records, patient was not complaining of any symptoms. On arrival, temperature 94.1, HR 66, RR 18, O2 sat 87%, BP 131/111. Initial WBC 19.2. Urinalysis showed more than 182 WBCs and moderate leukocyte esterase. Chest x-ray shows bibasilar infiltrates. Patient was intubated in the emergency room to protect airway. Bains catheter was placed yielding purulent urine. Severe sepsis. Present on admission with hypothermia, leukocytosis, altered mental status, likely due to bilateral pneumonia. F/U Blood Cx. Cont. Abx pre ID Bilateral pneumonia. Aspiration pneumonia/HAP illness induced Gastroparesis: Stable Severe UTI. Bains catheter with purulent urine. Acute hypoxemic and hypercapnic respiratory failure. Intubated for airway protection, O2 sats down to 87%. Acute toxic metabolic encephalopathy. Etiology secondary to sepsis Bibasilar atelectasis, End-stage renal disease on hemodialysis Anemia of chronic renal disease vancomycin allergy ? Causing hives. PER ID documentation at other hosptial does not show vanc allergy Chronic leukocytosis, appears so based on review of records from here and [facility] in the past were reviewed. Chronic Hepatitis C: treatment status unknown. F/U HCV RNA PCR. Extensive Candidal intertrigo in groin and vagina. Cont. Fluconazole Intractable nausea with vomiting. 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 Patient remains intubated on mechanical ventilation with AC mode ventilation rate 12, tidal volume 450, FiO2 40% and a PEEP of 6. Continue weaning per protocols. Patient with ESRD and continue TTS schedule per nephrology. Patient does have a history of COVID-19 infection(01/07/20) but negative testing April 07. Follow-up blood/urine/sputum culture. Continue antibiotics per ID recommendations. 04/09/2020. Patient not tolerating PSV 12/6 with FiO2 of 30%. Continue hemod ialysis per nephrology recommendations. Continue IV antibiotics per ID recommendations. Blood cultures no growth to date. Respiratory therapy reports patient with accelerated hypertension and apneic episodes on PSV ventilation. Await pulmonary recommendations. 04/10/2020. Patient remains on mechanical ventilation AC mode rate 12, tidal volume 450, FiO2 30% and a PEEP of 6. Continue PSV trials per protocols. Continue hemodialysis per nephrology recommendations. Continue anti-infectives of fluconazole and cefepime. Follow-up blood/urine/sputum culture. ID, pulmonary and nephrology following. 04/11/2020; patient remains on mechanical ventilation AC mode rate 12, tidal volume 450, FiO2 of 30 and PEEP of 6. Continue PSV trials per protocols. continue hemodialysis per nephrology. ID changed antibiotics to meropenem. Blood culture grew staph epidermidis likey contaminant. 04/12/2020; patient is intubated, patient open eyes spontaneously. Neurology consulted and continue on replacement treatment. EEG is pending. Recommend MRI. Patient is on meropenem per ID recommendation. Pulmonary is following. Patient is on spontaneous breathing trial 04/13/2020; patient is intubated. Patient's blood pressure was high yesterday, amlodipine and hydralazine was added. Overnight his blood pressure was low and will also BP medications. We will continue to follow. 04/14/2020; patient is intubated and blood pressure is on the low side of normal. Patient is on meropenem 5/5. 04/15/2020; patient is intubated, on spontaneous breathing trial. Pulmonary is following. neurology recommend MRI. 04/16/2020; patient is intubated, on spontaneous breathing trial. Pulmonary is following. Neurology recommend MRI once stable. 04/17: Patient showing some clinical improvement. MRI still pending. Continues on restraints weaning trial today. Antibiotics per ID continue aspiration precautions although management by critical care physician. Noted elevated D- dimer level with trend. See ultrasound of the lower extremity was negative for DVT. Prior hospitalization showed elevated D-dimer also. Will discuss with nephrology if patient needs CTA to see if this can be managed with dialysis. This will be done if patient is unable to wean from the vent due to hypoxia. 04/18: Patient required re-intubation last night due to self extubation and decompensation with hypoxia. CXR post extubation showed tube in expected position. Patient also noted to have large projectile vomiting. - Obtain KUB - start Zofran - Hold tube feeds - May benefit from GI eval if vomiting continues. - She is currently being treated for Aspiration Pneumonia with bactermia and Acute cystitis 04/19: Now extubated, Continue supportive care and aspiration precautions. Patient complaining of chronic pain, will resume home dose pain meds and avoid oversedation. No new seizure noted. still awaiting MRI brain. GI input noted: illness induced gastropoaresis, otherwise KUB and LFT normal, will start low fat fiber diet once patient able to tolerate PO. Continue to monitor WBC, increased again today. out patient Celebrity [employer]. Unless indicated by Intesivist will like to monitor patient in the ICU for additional 24 hrs before downgrading. 04/20: CONTINUE Aspiration precautions, started on D5NS for low Blood glucose. Speech re-eval today. PAIN CONTROL 04/21: Continue aspiration precautions. Blood sugar stable continue to monitor WBC count. Will reassess with speech evaluation continue restraints due to aggressive behavior towards nurses and pulling on shelving. Monitor mental status. 04/22: patient complains of nasuea, will start on Reglan IV prn. CONTINUE supportive care. 04/23: Patient continues on restraints. She tells me that she has a history of Gastroparesis. Will start IV reglan., check ct abdomen and pelvis. repeat speech eval and may need PEG if still not tolerating Diet. 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 Office summary patient was admitted on 04/06/2020 with unresponsiveness after hemodialysis and no assisted resident and also with noted-gastroparesis. Patient was treated for fluid overload also with some antibiotics including antifungal. Cultures were unremarkable. CT of the abdomen repeated yesterday showed some perinephric stranding with patchy bibasilar airspace disease concerning for pneumonia. Will place empirically on Keflex. And monitor closely. If patient passes swallow evaluation can work on discharge back to assisted tomorrow if not GI should be consulted for possible PEG placement. Mental status is improving. 04/25: patient remains lethergic, has failed swallow eval, has chronic Gastroparesis and also persistent Encephalopathy, will plan for PEG tube placement prior to discharge back to alf. History Interval history: Patient seen and examined, still with intermittent confusion. failed swallow e riana Hospitalist Physical - Physical exam Narrative exam: VITAL SIGNS: Reviewed. GENERAL: The patient appears normally developed, lethargic with Nasal cannula, vital signs as documented. HEAD: No signs of head trauma. EYES: Pupils are equal. Extraocular motions intact. EARS: Hearing grossly intact. MOUTH: Oropharynx is normal. face mask on. NECK: No adenopathy, no JVD. CHEST: Chest with transmitted breath sounds bilaterally. No wheezes, rales, or rhonchi. CARDIAC: Regular rate and rhythm. S1 and S2, without murmurs, gallops, or rubs. VASCULAR: No Edema. Peripheral pulses normal and equal in all extremities. ABDOMEN: Soft, non tender and non distended. No rebound or guarding, and no masses palpated. Bowel Sounds normal. MUSCULOSKELETAL: Bilateral BKA NEUROLOGIC EXAM: Awake, lethargic ORIENTED to person place and time. Follows some commands. PSYCHIATRIC: Mood normal. SKIN: detail exam as documented in skin assessment - Constitutional Vitals: Temp Pulse Resp BP Pulse Ox 98.0 F 113 H 21 117/65 98 04/25/20 07:21 04/25/20 11:10 04/25/20 10:00 04/25/20 11:10 04/25/20 10:00 General appearance: Present: severe distress, other (Intubated on mechanical ventilation) HEART Score - HEART Score Troponin: Troponin T 0.224 ng/mL (0.00-0.029) H* 04/06/20 14:30 Results - Labs CBC & Chem 7: 04/22/20 03:50 04/22/20 03:50 Labs: Laboratory Last Values WBC 15.5 K/mm3 (4.5-11.0) H 04/22/20 03:50 RBC 3.71 M/mm3 (3.65-5.03) 04/22/20 03:50 Hgb 10.9 gm/dl (10.1-14.3) 04/22/20 03:50 Hct 32.9 % (30.3-42.9) 04/22/20 03:50 MCV 89 fl (79-97) 04/22/20 03:50 MCH 29 pg (28-32) 04/22/20 03:50 MCHC 33 % (30-34) 04/22/20 03:50 RDW 15.1 % (13.2-15.2) 04/22/20 03:50 Plt Count 629 K/mm3 (140-440) H 04/22/20 03:50 Add Manual Diff Complete 04/17/20 05:44 Total Counted 100 04/17/20 05:44 Seg Neuts % (Manual) 81.0 % (40.0-70.0) H 04/17/20 05:44 Band Neutrophils % 0 % 04/17/20 05:44 Lymphocytes % (Manual) 11.0 % (13.4-35.0) L 04/17/20 05:44 Reactive Lymphs % (Man) 0 % 04/17/20 05:44 Monocytes % (Manual) 3.0 % (0.0-7.3) 04/17/20 05:44 Eosinophils % (Manual) 3.0 % (0.0-4.3) 04/17/20 05:44 Basophils % (Manual) 1.0 % (0.0-1.8) 04/17/20 05:44 Metamyelocytes % 0 % 04/17/20 05:44 Myelocytes % 1.0 % 04/17/20 05:44 Promyelocytes % 0 % 04/17/20 05:44 Blast Cells % 0 % 04/17/20 05:44 Nucleated RBC % Not Reportable 04/17/20 05:44 Seg Neutrophils # Man 15.8 K/mm3 (1.8-7.7) H 04/17/20 05:44 Band Neutrophils # 0.0 K/mm3 04/17/20 05:44 Lymphocytes # (Manual) 2.1 K/mm3 (1.2-5.4) 04/17/20 05:44 Abs React Lymphs (Man) 0.0 K/mm3 04/17/20 05:44 Monocytes # (Manual) 0.6 K/mm3 (0.0-0.8) 04/17/20 05:44 Eosinophils # (Manual) 0.6 K/mm3 (0.0-0.4) H 04/17/20 05:44 Basophils # (Manual) 0.2 K/mm3 (0.0-0.1) H 04/17/20 05:44 Metamyelocytes # 0.0 K/mm3 04/17/20 05:44 Myelocytes # 0.2 K/mm3 04/17/20 05:44 Promyelocytes # 0.0 K/mm3 04/17/20 05:44 Blast Cells # 0.0 K/mm3 04/17/20 05:44 WBC Morphology Not Reportable 04/17/20 05:44 Hypersegmented Neuts Not Reportable 04/17/20 05:44 Hyposegmented Neuts Not Reportable 04/17/20 05:44 Hypogranular Neuts Not Reportable 04/17/20 05:44 Smudge Cells Not Reportable 04/17/20 05:44 Toxic Granulation Not Reportable 04/17/20 05:44 Toxic Vacuolation Not Reportable 04/17/20 05:44 Dohle Bodies Not Reportable 04/17/20 05:44 Pelger-Huet Anomaly Not Reportable 04/17/20 05:44 Stephanie Rods Not Reportable 04/17/20 05:44 Platelet Estimate Consistent w auto 04/17/20 05:44 Clumped Platelets Not Reportable 04/17/20 05:44 Plt Clumps, EDTA Not Reportable 04/17/20 05:44 Large Platelets Not Reportable 04/17/20 05:44 Giant Platelets Not Reportable 04/17/20 05:44 Platelet Satelliting Not Reportable 04/17/20 05:44 Plt Morphology Comment Not Reportable 04/17/20 05:44 RBC Morphology Normal 04/17/20 05:44 Dimorphic RBCs Not Reportable 04/17/20 05:44 Polychromasia Not Reportable 04/17/20 05:44 Hypochromasia Not Reportable 04/17/20 05:44 Poikilocytosis Not Reportable 04/17/20 05:44 Anisocytosis Not Reportable 04/17/20 05:44 Microcytosis Not Reportable 04/17/20 05:44 Macrocytosis Not Reportable 04/17/20 05:44 Spherocytes Few 04/17/20 05:44 Pappenheimer Bodies Not Reportable 04/17/20 05:44 Sickle Cells Not Reportable 04/17/20 05:44 Target Cells Not Reportable 04/17/20 05:44 Tear Drop Cells Not Reportable 04/17/20 05:44 Ovalocytes Not Reportable 04/17/20 05:44 Stomatocytes Few 04/12/20 08:14 Helmet Cells Not Reportable 04/17/20 05:44 [place] Bodies Not Reportable 04/17/20 05:44 [place] Rings Not Reportable 04/17/20 05:44 Michael Cells Not Reportable 04/17/20 05:44 Bite Cells Not Reportable 04/17/20 05:44 Crenated Cell Not Reportable 04/17/20 05:44 Elliptocytes Not Reportable 04/17/20 05:44 Acanthocytes (Spur) Not Reportable 04/17/20 05:44 Rouleaux Not Reportable 04/17/20 05:44 Hemoglobin C Crystals Not Reportable 04/17/20 05:44 Schistocytes Not Reportable 04/17/20 05:44 Malaria parasites Not Reportable 04/17/20 05:44 Lc Bodies Not Reportable 04/17/20 05:44 Hem Pathologist Commnt No 04/17/20 05:44 PT 13.8 Sec. (12.2-14.9) 04/06/20 14:30 INR 1.04 (0.87-1.13) 04/06/20 14:30 APTT 28.1 Sec. (24.2-36.6) 04/06/20 14:30 D-Dimer 1144.77 ng/mlDDU (0-234) H 04/18/20 06:48 ABG pH 7.486 (7.320-7.450) H 04/18/20 03:23 POC ABG pCO2 40.7 mmHg (32.0-48.0) 04/18/20 03:23 ABG pCO2 54.0 mm Hg 04/11/20 03:44 POC ABG pO2 56.4 mmHg (83-108) L 04/18/20 03:23 ABG pO2 73.4 mm Hg (80.0-90.0) L 04/11/20 03:44 POC ABG HCO3 30.0 04/18/20 03:23 ABG HCO3 26.7 mmol/L (20.0-26.0) H 04/11/20 03:44 ABG O2 Saturation 95.0 % (95.0-99.0) 04/11/20 03:44 ABG O2 Content 14.4 (0.0-44) 04/11/20 03:44 POC ABG Base Excess 6.1 04/18/20 03:23 ABG Base Excess -0.1 mmol/L (-2.0-3.0) 04/11/20 03:44 ABG Hemoglobin 11.2 (12.0-17.5) L 04/18/20 03:23 ABG Oxyhemoglobin 92.0 (94-98) L 04/18/20 03:23 ABG Carboxyhemoglobin 1.6 % (0.0-5.0) 04/11/20 03:44 ABG Methemoglobin 0.3 (0.0-1.5) 04/18/20 03:23 ABG Sodium 135.1 mmol/L (136.0-145.0) L 04/18/20 03:23 ABG Potassium 4.1 mmol/L (3.40-4.50) 04/18/20 03:23 ABG Chloride 100.0 mmol/L (98-107) 04/18/20 03:23 ABG Glucose 138 mg/dL (65-95) H 04/18/20 03:23 Oxyhemoglobin 92.8 % (95.0-99.0) L 04/11/20 03:44 Carboxyhemoglobin 0.6 (0.5-1.5) 04/18/20 03:23 FiO2 40 04/18/20 03:23 Sodium 140 mmol/L (137-145) 04/22/20 03:50 Potassium 4.2 mmol/L (3.6-5.0) 04/22/20 03:50 Chloride 98.0 mmol/L (98-107) 04/22/20 03:50 Carbon Dioxide 27 mmol/L (22-30) 04/22/20 03:50 Anion Gap 19 mmol/L 04/22/20 03:50 BUN 15 mg/dL (7-17) 04/22/20 03:50 Creatinine 2.6 mg/dL (0.6-1.2) H 04/22/20 03:50 Estimated GFR 19 ml/min 04/22/20 03:50 BUN/Creatinine Ratio 6 % 04/22/20 03:50 Glucose 131 mg/dL (65-100) H 04/22/20 03:50 POC Glucose 256 mg/dL (70-105) H 04/25/20 11:48 Lactic Acid 0.90 mmol/L (0.7-2.0) 04/13/20 19:10 Calcium 9.1 mg/dL (8.4-10.2) 04/22/20 03:50 Phosphorus 3.00 mg/dL (2.5-4.5) 04/17/20 05:44 Magnesium 2.00 mg/dL (1.7-2.3) 04/17/20 05:44 Ferritin 743.0 ng/mL (10.0-200.0) H 04/07/20 09:34 Total Bilirubin 0.30 mg/dL (0.1-1.2) 04/23/20 08:26 Direct Bilirubin < 0.2 mg/dL (0-0.2) 04/23/20 08:26 Indirect Bilirubin 0.1 mg/dL 04/23/20 08:26 AST 15 units/L (5-40) 04/23/20 08:26 ALT 10 units/L (7-56) 04/23/20 08:26 Alkaline Phosphatase 308 units/L (35-129) H 04/23/20 08:26 Ammonia 43.0 umol/L (25-60) 04/06/20 14:30 Lactate Dehydrogenase 195 units/L (91-180) H 04/07/20 09:34 Total Creatine Kinase 23 units/L (30-135) L 04/06/20 14:30 Total Creatine Kinase 24 units/L (30-135) L 04/06/20 14:30 Troponin T 0.224 ng/mL (0.00-0.029) H* 04/06/20 14:30 C-Reactive Protein 7.50 mg/dL (0.00-1.30) H 04/07/20 09:34 Total Protein 8.2 g/dL (6.3-8.2) 04/23/20 08:26 Albumin 3.2 g/dL (3.9-5) L 04/23/20 08:26 Albumin/Globulin Ratio 0.6 % 04/23/20 08:26 Triglycerides 342 mg/dL (2-149) H 04/06/20 14:30 Cholesterol 223 mg/dL (50-199) H 04/06/20 14:30 LDL Cholesterol Direct 123 mg/dL (50-130) 04/06/20 14:30 HDL Cholesterol 35 mg/dL (40-59) L 04/06/20 14:30 Cholesterol/HDL Ratio 6.37 % 04/06/20 14:30 Procalcitonin 1.59 ng/mL (<0.15) 04/13/20 19:10 TSH 1.320 mlU/mL (0.270-4.200) 04/06/20 14:30 HCG, Qual Negative (Negative) 04/06/20 14:30 Arterial Blood Glucose 138 mg/dL (65-95) H 04/18/20 03:23 Arterial Blood Ionized Calcium 4.5 mg/dL (4.6-5.3) L 04/18/20 03:23 Urine Color Yellow (Yellow) 04/06/20 13:34 Urine Turbidity Turbid (Clear) 04/06/20 13:34 Urine pH 7.0 (5.0-7.0) 04/06/20 13:34 Ur Specific [place] 1.017 (1.003-1.030) 04/06/20 13:34 Urine Protein 100 mg/dl mg/dL (Negative) 04/06/20 13:34 Urine Glucose (UA) 50 mg/dL (Negative) 04/06/20 13:34 Urine Ketones Tr mg/dL (Negative) 04/06/20 13:34 Urine Blood Sm (Negative) 04/06/20 13:34 Urine Nitrite Neg (Negative) 04/06/20 13:34 Urine Bilirubin Neg (Negative) 04/06/20 13:34 Urine Urobilinogen < 2.0 mg/dL (<2.0) 04/06/20 13:34 Ur Leukocyte Esterase Mod (Negative) 04/06/20 13:34 Urine WBC (Auto) > 182.0 /HPF (0.0-6.0) H 04/06/20 13:34 Urine RBC (Auto) 49.0 /HPF (0.0-6.0) 04/06/20 13:34 U Epithel Cells (Auto) 6.0 /HPF (0-13.0) 04/06/20 13:34 Urine Bacteria (Auto) 2+ /HPF (Negative) 04/06/20 13:34 Urine WBC Clumps 3+ /HPF 04/06/20 13:34 Urine Mucus 3+ /HPF 04/06/20 13:34 Salicylates < 0.3 mg/dL (2.8-20.0) L 04/06/20 14:30 Acetaminophen 5.0 ug/mL (10.0-30.0) L 04/06/20 14:30 Plasma/Serum Alcohol < 0.01 % (0-0.07) 04/06/20 14:30 Coronavirus (PCR) Negative (Negative) 04/07/20 Unknown Hepatitis A IgM Ab Non-reactive (NonReactive) 04/07/20 16:38 Hep Bs Antigen Non-reactive (Negative) 04/07/20 16:38 Hep B Core IgM Ab Non-reactive (NonReactive) 04/07/20 16:38 Hepatitis C Antibody Reactive (NonReactive) A 04/07/20 16:38 Hepatitis C RNA Quant See scanned result 04/15/20 04:52 Blood Type O POSITIVE 04/06/20 14:30 Antibody Screen Negative 04/06/20 14:30 Bains/IV: Voiding Method Incontinent IV Catheter Type [Right Hand] Peripheral IV IV Catheter Type [Left Forearm INT / Saline Lock ] IV Catheter Type [Right VAS Cath Subclavian] IV Catheter Type [Left INT / Saline Lock Antecubital] IV Catheter Type [Right INT / Saline Lock Forearm] Active Medications - Current Medications Current Medications: Generic Name Dose Route Start Last Admin Trade Name Freq PRN Reason Stop Dose Admin Acetaminophen 650 mg 04/06/20 16:39 Tylenol PO Q6H PRN Pain, Mild (1-3) Albuterol 2.5 puff 04/22/20 12:13 Proair IH Q4HRT PRN Shortness Of Breath Aripiprazole 5 mg 04/23/20 10:00 04/25/20 09:52 Aripiprazole PO Not Given DAILY NOEL Calcium Acetate 667 mg 04/22/20 17:00 04/25/20 11:25 Phoslo PO Not Given TIDWM NOEL Carvedilol 6.25 mg 04/13/20 22:00 04/25/20 09:53 Coreg PO Not Given BID NOEL Clonidine HCl 0.1 mg 04/25/20 08:00 04/25/20 11:10 Catapres-Tts Patch TD Not Given Tu NOEL Dextrose 50 ml 04/09/20 16:30 D50w (25gm) Syringe IV Q30MIN PRN Hypoglycemia Protocol Docusate Sodium 100 mg 04/22/20 12:17 Colace PO Q12H PRN Constipation Famotidine 20 mg 04/07/20 10:00 04/25/20 09:53 Pepcid PO Not Given QDAY [facility] Heparin Sodium (Porcine) 5,000 unit 04/06/20 22:00 04/25/20 10:59 Heparin SUB-Q 5,000 unit Q12HR NOEL Administration Hydromorphone HCl 1 mg 04/18/20 14:22 04/25/20 03:35 Dilaudid IV 1 mg Q4H PRN Administration Pain , Severe (7-10) Hydrophilic Ointment 1 applic 04/06/20 13:34 Vaseline Lip Therapy TP Q2HR PRN Dry Lips Sodium Chloride 100 mls @ 999 mls/hr 04/07/20 17:00 Nacl 0.9% IV SPRING PRN Hypotension Dextrose/Sodium Chloride 1,000 mls @ 42 mls/hr 04/20/20 13:00 04/25/20 06:10 D5ns IV 42 mls/hr DIRECT NOEL Administration Cefepime HCl 1 gm in 100 mls @ 200 mls/hr 04/24/20 12:00 04/25/20 10:59 Cefepime/Ns 1 Gm/100 Ml IV 04/26/20 23:59 200 mls/hr Q24HR NOEL Administration Protocol Insulin Glargine 10 units 04/17/20 10:00 04/25/20 11:12 Lantus SUB-Q 10 units Q24HR [facility] Administration Insulin Human Regular 0 unit 04/09/20 18:00 04/25/20 06:09 Humulin R SUB-Q 3 unit Q6H NOEL Administration Protocol Labetalol HCl 10 mg 04/08/20 17:17 04/24/20 22:37 Labetalol IV 10 mg Q4H PRN Administration Blood Pressure Losartan Potassium 25 mg 04/22/20 15:00 04/25/20 09:53 Cozaar PO Not Given QDAY [facility] Multi-Ingred Cream/Lotion/Oil/Oint 1 applic 04/06/20 13:34 Artificial Tears Ophth Oint OU Q4HR PRN Dry Eye(s) Multivitamins/Iron 1 each 04/23/20 10:00 04/25/20 09:53 Hemocyte Plus PO Not Given QDAY NOEL Ondansetron HCl 4 mg 04/18/20 07:45 04/22/20 15:14 Zofran IV 4 mg Q4H PRN Administration Nausea And Vomiting Pantoprazole Sodium 40 mg 04/23/20 07:30 04/25/20 09:52 Protonix PO Not Given QDAC NOEL Sodium Chloride 10 ml 04/06/20 22:00 04/25/20 11:17 Sodium Chloride Flush Syringe 10 Ml IV Not Given BID NOEL Sodium Chloride 10 ml 04/06/20 16:32 04/25/20 03:36 Sodium Chloride Flush Syringe 10 Ml IV 10 ml PRN PRN Administration LINE FLUSH Nutrition/Malnutrition Assess - Dietary Evaluation Nutrition/Malnutrition Findings: Nutrition Notes Start: 04/07/20 08:19 Freq: Status: Active Protocol: Document 04/21/20 10:15 LM (Rec: 04/21/20 10:18 LM [email or web address]) Nutrition Notes Initial or Follow up Brief Note Current Diagnosis CKD (stage V CKD),Diabetes, Hypertension,Stroke Other Pertinent Diagnosis on HD, bilateral BKA, AMS Current Diet No diet Subjective/Other Information Pt with no diet order. Pt to get re-evaluated by [employer]. Nutrition Intervention Follow-Up By: 04/25/20 Additional Comments F/U for [employer] recs, diet advancement, intakes
--- NOTE | 2020-04-25 14:54 | Progress Note ---
Assessment and Plan Cultures: Blood culture 04/06/2020: 1 out of 4 bottles coag negative staph Urine culture 04/06/2020 <10,000 mixed bacteria Respiratory culture 04/06/2020 poor specimen SARS-CoV-2 PCR negative 04/07/2020 tracheal aspirate culture: Usual respiratory sarah Assessment: 49 years old female with history of asthma, hypertension, end-stage renal disease on hemodialysis, diabetes mellitus, bipolar disorder, morbid obesity, CVA, bilateral BKA's recent COVID-19 infection requiring intubation treated with dexamethasone in December 2019 [facility], resident of a jail, admitted on 04/06/2020 secondary to be found unresponsiveness after hemodialysis: #Severe sepsis: Present on admission with hypothermia, leukocytosis, altered mental status, likely due to bilateral pneumonia, bacteremia and UTI. Improving #Bilateral pneumonia: Aspiration pneumonia/HAP. Of note, patient was recently admitted at [facility] in January 2020 requiring intubation for COVID-19 pneumonia. COVID-19 pneumonia was treated with dexamethasone. #Coag negative staph bacteremia: 1/4 bottles, consistent with contaminant. #UTI: Bains catheter with purulent urine. #Acute hypoxemic respiratory failure: Improving, now on 3 L nasal cannula. #End-stage renal disease on hemodialysis: renally dose abx. #Extensive Candidal intertrigo in groin and vagina: treated with fluconazole. #Vancomycin allergy ? Causing hives. I reviewed records from [facility] and there is no documentation of vancomycin allergy, patient initially received vancomycin #Leucocytosis: Patient has chronic leukocytosis, labs from [facility] and [facility] in the past were reviewed. #Chronic Hepatitis C: treatment status unknown. F/U HCV RNA PCR. Recs: Patient has chronic leukocytosis, labs from [facility] and [facility] in the past were reviewed Follow leukocytosis, stable elevated Infectious disease will sign off for now, this is a complicated patient so please do not hesitate to call with any questions. Peyman Zayas MD [facility] ([facility] O: [phone] F: [phone] Subjective Date of service: 04/25/20 Principal diagnosis: Ac on ch hypoxemic and hypercapnic resp failure; PUI COVID- 19 infxn; AMS Interval history: Afebrile now, no acute changes at present. Currently on 4 L nasal cannula. Objective - Exam Narrative Exam: Constitutional: Awake, alert on nasal cannula Head, Ears, Nose: Normocephalic, atraumatic. Eyes: Conjunctivae/corneas clear. No icterus. No ptosis. Neck: intubated Oral: intubated Cardiovascular: S1, S2 + Respiratory: AE fair bilaterally and equal GI: Soft, bowel sounds + Musculoskeletal: Bilateral BKA. Right chest PermCath Skin: No rash or abscess Hem/Lymphatic: No palpable cervical or supraclavicular nodes. No lymphangitis Psych: no agitation Neurological: Awake, alert - Constitutional Vitals: Vital Signs Temp Pulse Resp BP Pulse Ox 98.0 F 117 H 21 117/65 100 04/25/20 07:21 04/25/20 12:00 04/25/20 10:00 04/25/20 11:10 04/25/20 10:00 Temperature -Last 24 Hours Temperature 98.0 F Temperature 99.9 F Temperature 100.0 F Temperature 98.5 F Temperature 98.0 F - Labs CBC & Chem 7: 04/22/20 03:50 04/22/20 03:50 Labs: Abnormal lab results 04/24/20 04/24/20 04/25/20 Range/Units 16:42 22:44 05:23 POC Glucose 166 H 226 H 293 H (70-105) mg/dL 04/25/20 Range/Units 11:48 POC Glucose 256 H (70-105) mg/dL
[2020-04-25 15:29] LABS: INR 1.04 (0.87-1.13)
--- NOTE | 2020-04-25 17:17 | Gastroenterology Consultation ---
History of Present Illness - Reason for Consult Consult date: 04/25/20 oropharyngeal dysphagia Requesting physician: AARON LIM - History of Present Illness The patient is a 49 yo wf with history of ESRD on dialysis, CVA, obesity, bipolar disorder, and bilateral BKA's with recent COVID-19 infection requiring intubation treated with dexamethasone in December 2019 [facility], resident of a retirement, admitted on 04/06/2020 secondary to be found unresponsiveness after hemodialysis. pt has had prolonged hospital course, including intubation/respiratory support, now extubated on the floor. Has had vomiting episodes last few days (? history of gastroparesis). Currently with NG tube and appears to be tolerating tube feeds. Pt asleep at time of exam, opens eyes to questions but unable to provide history. GI consulted for PEG tube evaluation. Past History Past Medical History: diabetes, ESRD, hypertension, stroke, other (See HPI) Past Surgical History: Other (Bilateral foot amputations) Social history: single. denies: smoking, alcohol abuse, prescription drug abuse Family history: hypertension Medications and Allergies Allergies Allergy/AdvReac Type Severity Reaction Status Date / Time carrot Allergy Hives Verified 07/28/19 12:30 erythromycin base Allergy Hives Verified 07/30/19 11:26 latex Allergy Rash Verified 02/18/19 13:20 peas Allergy Hives Verified 12/20/19 12:37 vancomycin Allergy Hives Verified 12/31/19 15:46 Home Medications Medication Instructions Recorded Confirmed Last Taken Type Aripiprazole 5 mg PO DAILY 02/18/19 04/06/20 02/17/19 History Benadryl CAP 25 mg PO Q8H PRN 02/18/19 04/06/20 02/17/19 History Calcium Acetate 667 mg PO TIDWM 02/18/19 04/06/20 02/17/19 History Carvedilol 6.25 mg PO Q12H 02/18/19 04/06/20 02/17/19 History Colace CAP 100 mg PO Q12H PRN 02/18/19 04/06/20 02/17/19 History Esomeprazole Magnesium 40 mg PO QDAC 02/18/19 04/06/20 02/17/19 History HumaLOG 10 units SUB-Q TIDWM 02/18/19 04/06/20 02/17/19 History Insulin Detemir (Nf) [Levemir See Protocol SQ QHS 02/18/19 04/06/20 02/17/19 History Flextouch (Nf)] Losartan Potassium 50 mg PO DAILY 02/18/19 04/06/20 02/17/19 History Lyrica 75 mg PO Q12H 02/18/19 04/06/20 02/17/19 History Melatonin 6 mg PO QHS 02/18/19 04/06/20 02/17/19 History Senna 17.2 mg PO QHS PRN 02/18/19 04/06/20 02/17/19 History Venlafaxine HCl [Venlafaxine HCl 150 mg PO QDAC 02/18/19 04/06/20 02/17/19 History ER] Vitamin C 250 mg PO DAILY 02/18/19 04/06/20 02/17/19 History ZyrTEC 10mg cap 10 mg PO DAILY 02/18/19 04/06/20 02/17/19 History Calcium Acetate [Phoslo] 667 mg PO TIDWM capsule 12/22/19 04/06/20 Unknown Rx Fe Fumarate/FA/Mv, Min Comb#15 1 each PO QDAY capsule 12/22/19 04/06/20 Unknown Rx [Hemocyte Plus] Albuterol Mdi (or & Nicu Only) 2.5 puff IH Q4HRT PRN inha 01/12/20 04/06/20 Unknown Rx [ProAir HFA Inhaler] dexAMETHasone [Decadron] 6 mg PO Q12HR #10 tablet 01/12/20 04/06/20 Unknown Rx oxyCODONE 5 mg PO Q6H PRN #10 01/12/20 04/06/20 Unknown Rx Active Meds: Active Medications Acetaminophen (Tylenol) 650 mg PO Q6H PRN PRN Reason: Pain, Mild (1-3) Albuterol (Proair) 2.5 puff IH Q4HRT PRN PRN Reason: Shortness Of Breath Aripiprazole (Aripiprazole) 5 mg PO DAILY [facility] Last Admin: 04/25/20 09:52 Dose: Not Given Documented by: Calcium Acetate (Phoslo) 667 mg PO TIDWM NOEL Last Admin: 04/25/20 11:25 Dose: Not Given Documented by: Carvedilol (Coreg) 6.25 mg PO BID [facility] Last Admin: 04/25/20 09:53 Dose: Not Given Documented by: Clonidine HCl (Catapres-Tts Patch) 0.1 mg TD Tu [facility] Last Admin: 04/25/20 11:10 Dose: Not Given Documented by: Dextrose (D50w (25gm) Syringe) 50 ml IV Q30MIN PRN; Protocol PRN Reason: Hypoglycemia Docusate Sodium (Colace) 100 mg PO Q12H PRN PRN Reason: Constipation Famotidine (Pepcid) 20 mg PO QDAY [facility] Last Admin: 04/25/20 09:53 Dose: Not Given Documented by: Heparin Sodium (Porcine) (Heparin) 5,000 unit SUB-Q Q12HR [facility] Last Admin: 04/25/20 10:59 Dose: 5,000 unit Documented by: Hydromorphone HCl (Dilaudid) 1 mg IV Q4H PRN PRN Reason: Pain , Severe (7-10) Last Admin: 04/25/20 03:35 Dose: 1 mg Documented by: Hydrophilic Ointment (Vaseline Lip Therapy) 1 applic TP Q2HR PRN PRN Reason: Dry Lips Sodium Chloride (Nacl 0.9%) 100 mls @ 999 mls/hr IV SPRING PRN PRN Reason: Hypotension Dextrose/Sodium Chloride (D5ns) 1,000 mls @ 42 mls/hr IV DIRECT [facility] Last Admin: 04/25/20 06:10 Dose: 42 mls/hr Documented by: Cefepime HCl (Cefepime/Ns 1 Gm/100 Ml) 1 gm in 100 mls @ 200 mls/hr IV Q24HR [facility]; Protocol Stop: 04/26/20 23:59 Last Admin: 04/25/20 10:59 Dose: 200 mls/hr Documented by: Insulin Glargine (Lantus) 10 units SUB-Q Q24HR [facility] Last Admin: 04/25/20 11:12 Dose: 10 units Documented by: Insulin Human Regular (Humulin R) 0 unit SUB-Q Q6H [facility]; Protocol Last Admin: 04/25/20 12:07 Dose: 3 unit Documented by: Labetalol HCl (Labetalol) 10 mg IV Q4H PRN PRN Reason: Blood Pressure Last Admin: 04/24/20 22:37 Dose: 10 mg Documented by: Losartan Potassium (Cozaar) 25 mg PO QDAY [facility] Last Admin: 04/25/20 09:53 Dose: Not Given Documented by: Multi-Ingred Cream/Lotion/Oil/Oint (Artificial Tears Ophth Oint) 1 applic OU Q4HR PRN PRN Reason: Dry Eye(s) Multivitamins/Iron (Hemocyte Plus) 1 each PO QDAY [facility] Last Admin: 04/25/20 09:53 Dose: Not Given Documented by: Ondansetron HCl (Zofran) 4 mg IV Q4H PRN PRN Reason: Nausea And Vomiting Last Admin: 04/22/20 15:14 Dose: 4 mg Documented by: Pantoprazole Sodium (Protonix) 40 mg PO QDAC [facility] Last Admin: 04/25/20 09:52 Dose: Not Given Documented by: Sodium Chloride (Sodium Chloride Flush Syringe 10 Ml) 10 ml IV BID [facility] Last Admin: 04/25/20 11:17 Dose: Not Given Documented by: Sodium Chloride (Sodium Chloride Flush Syringe 10 Ml) 10 ml IV PRN PRN PRN Reason: LINE FLUSH Last Admin: 04/25/20 03:36 Dose: 10 ml Documented by: Reviewed/updated patient's home and current medications Review of Systems - Review of Systems ROS unobtainable: due to mental status Exam - Constitutional Vital Signs: Temp Pulse Resp BP Pulse Ox 98.0 F 117 H 21 117/65 100 04/25/20 07:21 04/25/20 12:00 04/25/20 10:00 04/25/20 11:10 04/25/20 10:00 General appearance: no acute distress - EENT Eyes: PERRL, EOM intact ENT: other (+ NG tube) - Neck Neck: supple, normal ROM - Respiratory Respiratory effort: normal Respiratory: bilateral: diminished - Cardiovascular Rhythm: regular Heart Sounds: Present: S1 & S2 - Gastrointestinal General gastrointestinal: Present: soft, non-tender, non-distended - Neurologic Neurological: disoriented - Labs CBC & Chem 7: 04/22/20 03:50 04/22/20 03:50 Lab Results: Laboratory Results - last 24 hr 04/24/20 04/25/20 04/25/20 22:44 05:23 11:48 PT INR POC Glucose 226 H 293 H 256 H 04/25/20 14:19 PT 13.4 INR 1.04 POC Glucose Assessment and Plan 1. Oropharyngeal dysphagia - evaluated by speech therapy with recommendations for alternate means of nutrition -will plan for egd/peg tube placement tomorrow if able to receive consent from family
[2020-04-26] MEDS: INSULIN REGULAR, HUMAN 100 UNIT/ML 3ML VIAL SUB-Q SCH ×5 (00:29→17:52)
[2020-04-26] MEDS: D5W/0.9% NACL 1,000 ML IV SCH (07:19)
[2020-04-26] MEDS: PANTOPRAZOLE 40 MG TAB PO SCH (07:37)
[2020-04-26] MEDS: CALCIUM ACETATE 667 MG CAP PO SCH ×3 (07:37→17:52)
--- NOTE | 2020-04-26 09:41 | Progress Note ---
Assessment and Plan Impression: * End stage renal disease * Sepsis * Positive blood cx - likely contaminant --Blood cx: staph epi (05/29 bottles - Apr 06) * Acute hypoxic respiratory failure * Acute encephalopathy * Acute ischemic stroke * UTI * Hx of COVID 19 --SARS Cov2 PCR negative Apr 07 * Metabolic acidosis * Pneumonia Plan: * Continue hemodialysis on MWF, * UF as tolerated * Abx per ID, input reviewed * neurology notes reviewed * Dose medications for renal function * GI notes appreciated. Plans for PEG tube placement noted Subjective Date of service: 04/26/20 Principal diagnosis: Ac on ch hypoxemic and hypercapnic resp failure; PUI COVID- 19 infxn; AMS Interval history: Patient seen in the dialysis room. Dialysis has been initiated. She is tolerating it well. Objective - Vital Signs Vital signs: Vital Signs - 12hr 04/25/20 04/26/20 04/26/20 23:44 03:51 08:53 Temperature 100.1 F H 99.5 F 98.3 F Pulse Rate 71 114 H 110 H Respiratory 16 16 24 Rate Blood Pressure 139/45 165/69 Blood Pressure 163/46 [Left] O2 Sat by Pulse 96 98 Oximetry 04/26/20 04/26/20 08:59 09:15 Temperature Pulse Rate 106 H 114 H Respiratory Rate Blood Pressure 171/65 131/73 Blood Pressure [Left] O2 Sat by Pulse Oximetry - General Appearance General appearance: well-developed, well-nourished, appears stated age EENT: PERRL, mucous membranes moist Neck: no JVD, no thyromegaly, no carotid bruit, supple Respiratory: Present: Clear to Ascultation Cardiology: regular, normal heart rate Gastrointestinal: normal, normoactive bowel sounds Integumentary: no rash, other (Bilateral below-knee amputation. Right IJ PermCath in place.) - Lab 04/22/20 03:50 04/22/20 03:50 Most recent lab results ABG pH 7.486 (7.320-7.450) H 04/18/20 03:23 ABG pCO2 54.0 mm Hg 04/11/20 03:44 ABG pO2 73.4 mm Hg (80.0-90.0) L 04/11/20 03:44 ABG HCO3 26.7 mmol/L (20.0-26.0) H 04/11/20 03:44 ABG O2 Saturation 95.0 % (95.0-99.0) 04/11/20 03:44 Calcium 9.1 mg/dL (8.4-10.2) 04/22/20 03:50 Phosphorus 3.00 mg/dL (2.5-4.5) 04/17/20 05:44 Magnesium 2.00 mg/dL (1.7-2.3) 04/17/20 05:44 Medications & Allergies - Medications Allergies/Adverse Reactions: Allergies carrot Allergy (Verified 07/28/19 12:30) Hives erythromycin base Allergy (Verified 07/30/19 11:26) Hives latex Allergy (Verified 02/18/19 13:20) Rash peas Allergy (Verified 12/20/19 12:37) Hives vancomycin Allergy (Verified 12/31/19 15:46) Hives Home Medications: Home Medications Medication Instructions Recorded Confirmed Last Taken Type Aripiprazole 5 mg PO DAILY 02/18/19 04/06/20 02/17/19 History Benadryl CAP 25 mg PO Q8H PRN 02/18/19 04/06/20 02/17/19 History Calcium Acetate 667 mg PO TIDWM 02/18/19 04/06/20 02/17/19 History Carvedilol 6.25 mg PO Q12H 02/18/19 04/06/20 02/17/19 History Colace CAP 100 mg PO Q12H PRN 02/18/19 04/06/20 02/17/19 History Esomeprazole Magnesium 40 mg PO QDAC 02/18/19 04/06/20 02/17/19 History HumaLOG 10 units SUB-Q TIDWM 02/18/19 04/06/20 02/17/19 History Insulin Detemir (Nf) [Levemir See Protocol SQ QHS 02/18/19 04/06/20 02/17/19 His tory Flextouch (Nf)] Losartan Potassium 50 mg PO DAILY 02/18/19 04/06/20 02/17/19 History Lyrica 75 mg PO Q12H 02/18/19 04/06/20 02/17/19 History Melatonin 6 mg PO QHS 02/18/19 04/06/20 02/17/19 History Senna 17.2 mg PO QHS PRN 02/18/19 04/06/20 02/17/19 History Venlafaxine HCl [Venlafaxine HCl 150 mg PO QDAC 02/18/19 04/06/20 02/17/19 History ER] Vitamin C 250 mg PO DAILY 02/18/19 04/06/20 02/17/19 History ZyrTEC 10mg cap 10 mg PO DAILY 02/18/19 04/06/20 02/17/19 History Calcium Acetate [Phoslo] 667 mg PO TIDWM capsule 12/22/19 04/06/20 Unknown Rx Fe Fumarate/FA/Mv, Min Comb#15 1 each PO QDAY capsule 12/22/19 04/06/20 Unknown Rx [Hemocyte Plus] Albuterol Mdi (or & Nicu Only) 2.5 puff IH Q4HRT PRN inha 01/12/20 04/06/20 Unknown Rx [ProAir HFA Inhaler] dexAMETHasone [Decadron] 6 mg PO Q12HR #10 tablet 01/12/20 04/06/20 Unknown Rx oxyCODONE 5 mg PO Q6H PRN #10 01/12/20 04/06/20 Unknown Rx Active Medications: Generic Name Dose Route Start Last Admin Trade Name Maren PRN Reason Stop Dose Admin Acetaminophen 650 mg 04/06/20 16:39 Tylenol PO Q6H PRN Pain, Mild (1-3) Albuterol 2.5 puff 04/22/20 12:13 Proair IH Q4HRT PRN Shortness Of Breath Aripiprazole 5 mg 04/23/20 10:00 04/25/20 09:52 Aripiprazole PO Not Given DAILY NOEL Calcium Acetate 667 mg 04/22/20 17:00 04/26/20 07:37 Phoslo PO Not Given TIDWM NOEL Carvedilol 6.25 mg 04/13/20 22:00 04/25/20 22:19 Coreg PO Not Given BID NOEL Clonidine HCl 0.1 mg 04/25/20 08:00 04/25/20 11:10 Catapres-Tts Patch TD Not Given Tu NOEL Dextrose 50 ml 04/09/20 16:30 D50w (25gm) Syringe IV Q30MIN PRN Hypoglycemia Protocol Docusate Sodium 100 mg 04/22/20 12:17 Colace PO Q12H PRN Constipation Famotidine 20 mg 04/07/20 10:00 04/25/20 09:53 Pepcid PO Not Given QDAY [facility] Heparin Sodium (Porcine) 5,000 unit 04/06/20 22:00 04/25/20 22:18 Heparin SUB-Q 5,000 unit Q12HR NOEL Administration Hydromorphone HCl 1 mg 04/18/20 14:22 04/25/20 03:35 Dilaudid IV 1 mg Q4H PRN Administration Pain , Severe (7-10) Hydrophilic Ointment 1 applic 04/06/20 13:34 Vaseline Lip Therapy TP Q2HR PRN Dry Lips Sodium Chloride 100 mls @ 999 mls/hr 04/07/20 17:00 Nacl 0.9% IV SPRING PRN Hypotension Dextrose/Sodium Chloride 1,000 mls @ 42 mls/hr 04/20/20 13:00 04/26/20 07:19 D5ns IV 42 mls/hr DIRECT NOEL Administration Cefepime HCl 1 gm in 100 mls @ 200 mls/hr 04/24/20 12:00 04/25/20 10:59 Cefepime/Ns 1 Gm/100 Ml IV 04/26/20 23:59 200 mls/hr Q24HR [facility] Administration Protocol Insulin Glargine 10 units 04/17/20 10:00 04/25/20 11:12 Lantus SUB-Q 10 units Q24HR NOEL Administration Insulin Human Regular 0 unit 04/09/20 18:00 04/26/20 06:53 Humulin R SUB-Q 3 unit Q6H [facility] Administration Protocol Labetalol HCl 10 mg 04/08/20 17:17 04/24/20 22:37 Labetalol IV 10 mg Q4H PRN Administration Blood Pressure Losartan Potassium 25 mg 04/22/20 15:00 04/25/20 09:53 Cozaar PO Not Given QDAY [facility] Multi-Ingred Cream/Lotion/Oil/Oint 1 applic 04/06/20 13:34 Artificial Tears Ophth Oint OU Q4HR PRN Dry Eye(s) Multivitamins/Iron 1 each 04/23/20 10:00 04/25/20 09:53 Hemocyte Plus PO Not Given QDAY [facility] Ondansetron HCl 4 mg 04/18/20 07:45 04/22/20 15:14 Zofran IV 4 mg Q4H PRN Administration Nausea And Vomiting Pantoprazole Sodium 40 mg 04/23/20 07:30 04/26/20 07:37 Protonix PO Not Given QDAC NOEL Sodium Chloride 10 ml 04/06/20 22:00 04/25/20 22:19 Sodium Chloride Flush Syringe 10 Ml IV 10 ml BID NOEL Administration Sodium Chloride 10 ml 04/06/20 16:32 04/25/20 03:36 Sodium Chloride Flush Syringe 10 Ml IV 10 ml PRN PRN Administration LINE FLUSH
[2020-04-26] MEDS: FAMOTIDINE 20 MG TAB PO SCH (10:08)
[2020-04-26] MEDS: HEPARIN 5,000 UNIT/1 ML VIAL SUB-Q SCH ×2 (10:08→22:02)
[2020-04-26] MEDS: FE FUMARATE/FA/MV, MIN COMB#15 CAP (HEMOCYTE PLUS) PO SCH (10:08)
[2020-04-26] MEDS: carvediloL 6.25 MG TAB PO SCH ×2 (10:08→22:02)
[2020-04-26] MEDS: ARIPiprazole 5 MG TAB PO SCH (10:08)
[2020-04-26] MEDS: LOSARTAN 25 MG TAB PO SCH (10:08)
--- NOTE | 2020-04-26 12:36 | Progress Note ---
Assessment and Plan Acute on chronic hypoxemic and hypercapnic respiratory failure. Coronavirus-19 infection. Acute encephalopathy. Bibasilar atelectasis. End-stage renal disease, on dialysis. Morbid obesity. History of a cerebrovascular accident. Diabetes type 2. History of chronic obstructive pulmonary disease. History of anemia. - follow CXR, ABG and address - 500 mls IVNS bolus re: hypotension (repeat same amount if MAP < 65 mmHg post i nitial 500 ml's) - trend procalcitonin, lactate levels - place CVL if remains hypotensive post volume resuscitation - continue care as below otherwise; - s/p AB's per ID rec's (Merrem) - wean supplemental oxygen for target O2 sat's > 90% acutely - VAP bundle addressed - continue lung protective strategies - continue bronchodilators with pulmonary hygiene per RT - wean per pulmonary driven protocols otherwise - continue accuchecks with glycemic control per SSI (While critically ill target blood glucose of 140-180 mg/dL; avoid hypoglycemia) - continue fentanyl for sedation / analgesia - sedation prn for target RASS 0 to -1 - avoid nephrotoxins, renally dose all medications - continue to avoid benzodiazepine's, reduce the possibility of delirium - prn analgesia per CPOT score - Maintenance of sleep-wake cycle, avoid delirium - continue enteral nutritional support at goal rate as tolerated - G.I. & VTE prophylaxis - PT/OT/ROM exercises - continue mobility protocols for pressure ulcer prophylaxis - Monitor hemodynamics closely - continue other care per attending / other consultants - discharge planning ongoing concurrently .... Re-evaluate in am & prn CONDITION: CRITICAL PROGNOSIS: GUARDED CODE STATUS: FULL CODE The high probability of a clinically significant, sudden or life-threatening deterioration of the [respiratory, cardiovascular, renal & neurologic] system(s) required my full and direct attention, intervention and personal management. The aggregate critical care time was [35] minutes without overlap. Time includes spent on; [x] Data Review and interpretation [x] Patient assessment and monitoring of vital signs [x] Documentation [x] Medication orders and management Subjective Date of service: 04/26/20 Principal diagnosis: Ac on ch hypoxemic and hypercapnic resp failure; PUI COVID- 19 infxn; AMS Interval history: Patient is seen today for: Acute on chronic hypoxemic and hypercapnic resp failure; PUI Coronavirus-19 infection; Acute encephalopathy; ESRD; Morbid obesity; DM II; AE-COPD Seen and examined at bedside; 24hour events reviewed; nursing and respiratory care staff consulted; no adverse overnight events reported to me; resting peacefully in bed; decompensated daysi-Dialysis today and s/p CODE BLUE; now intubated; ? possible aspiration; no gross bleeding; afebrile Objective Vital Signs - 12hr 04/26/20 04/26/20 04/26/20 03:51 08:53 08:59 Temperature 99.5 F 98.3 F Pulse Rate 114 H 110 H 106 H Respiratory 16 24 Rate Blood Pressure 139/45 165/69 171/65 O2 Sat by Pulse 98 Oximetry 04/26/20 04/26/20 04/26/20 09:15 09:30 09:45 Temperature Pulse Rate 114 H 121 H 121 H Respiratory Rate Blood Pressure 131/73 121/60 106/41 O2 Sat by Pulse Oximetry 04/26/20 04/26/20 04/26/20 10:00 10:15 10:30 Temperature Pulse Rate 118 H 115 H 114 H Respiratory Rate Blood Pressure 103/48 106/47 100/53 O2 Sat by Pulse Oximetry 04/26/20 04/26/20 04/26/20 10:45 11:07 11:11 Temperature 97.9 F Pulse Rate 115 H 110 H 125 H Respiratory 26 H Rate Blood Pressure 103/45 79/34 124/101 O2 Sat by Pulse Oximetry Constitutional: no acute distress, other (middle aged obese female with normasl respiratory effort at rest on MVS) Eyes: non-icteric ENT: oropharynx moist, other (ETT 23 cm PARRISH) Neck: supple, no lymphadenopathy, no JVD Effort: normal Ascultation: Bilateral: rales Percussion: Bilateral: not dull Cardiovascular: regular rate and rhythm, other (S1,S2) Gastrointestinal: normoactive bowel sounds, soft, non-tender, non-distended (protuberant) Integumentary: rash Extremities: no cyanosis, no edema, no ischemia or petechiae, other (bilateral BKAs ) Neurologic: pupils equal and round, unable to assess Psychiatric: other ([id number] to assess re: AMS) CBC and BMP: 04/26/20 14:26 04/26/20 14:26 ABG, PT/INR, D-dimer: ABG ABG pH 7.486 (7.320-7.450) H 04/18/20 03:23 POC ABG pCO2 40.7 mmHg (32.0-48.0) 04/18/20 03:23 ABG pCO2 54.0 mm Hg 04/11/20 03:44 POC ABG pO2 56.4 mmHg (83-108) L 04/18/20 03:23 ABG pO2 73.4 mm Hg (80.0-90.0) L 04/11/20 03:44 POC ABG HCO3 30.0 04/18/20 03:23 ABG O2 Saturation 95.0 % (95.0-99.0) 04/11/20 03:44 PT/INR, D-dimer PT 13.4 Sec. (12.2-14.9) 04/25/20 14:19 INR 1.04 (0.87-1.13) 04/25/20 14:19 D-Dimer 1144.77 ng/mlDDU (0-234) H 04/18/20 06:48 Abnormal lab findings: Abnormal Labs 04/06/20 04/06/20 04/06/20 13:34 14:30 14:30 WBC 19.2 H RBC Hgb Hct RDW 17.8 H Plt Count Seg Neuts % (Manual) 90.0 H Lymphocytes % (Manual) 4.0 L Basophils % (Manual) Seg Neutrophils # Man 17.3 H Lymphocytes # (Manual) 0.8 L Monocytes # (Manual) Eosinophils # (Manual) Basophils # (Manual) D-Dimer ABG pH POC ABG pCO2 POC ABG pO2 ABG pO2 ABG HCO3 ABG Base Excess ABG Hemoglobin ABG Oxyhemoglobin ABG Sodium ABG Chloride ABG Glucose Oxyhemoglobin Sodium Potassium 5.2 H Chloride Carbon Dioxide 17 L BUN 53 H Creatinine 7.8 H Glucose 144 H POC Glucose Calcium Magnesium Ferritin Alkaline Phosphatase 738 H Lactate Dehydrogenase Total Creatine Kinase 23 L Troponin T 0.224 H* C-Reactive Protein Albumin 3.1 L Triglycerides 342 H Cholesterol 223 H HDL Cholesterol 35 L Arterial Blood Glucose Arterial Blood Ionized Calcium Urine WBC (Auto) > 182.0 H Salicylates Acetaminophen Hepatitis C Antibody 04/06/20 04/06/20 04/06/20 14:30 14:30 14:30 WBC RBC Hgb Hct RDW Plt Count Seg Neuts % (Manual) Lymphocytes % (Manual) Basophils % (Manual) Seg Neutrophils # Man Lymphocytes # (Manual) Monocytes # (Manual) Eosinophils # (Manual) Basophils # (Manual) D-Dimer ABG pH POC ABG pCO2 POC ABG pO2 ABG pO2 ABG HCO3 ABG Base Excess ABG Hemoglobin ABG Oxyhemoglobin ABG Sodium ABG Chloride ABG Glucose Oxyhemoglobin Sodium Potassium Chloride Carbon Dioxide BUN Creatinine Glucose POC Glucose Calcium Magnesium 2.50 H Ferritin Alkaline Phosphatase Lactate Dehydrogenase Total Creatine Kinase 24 L Troponin T C-Reactive Protein Albumin Triglycerides Cholesterol HDL Cholesterol Arterial Blood Glucose Arterial Blood Ionized Calcium Urine WBC (Auto) Salicylates < 0.3 L Acetaminophen 5.0 L Hepatitis C Antibody 04/06/20 04/06/20 04/07/20 14:39 20:00 00:48 WBC RBC Hgb Hct RDW Plt Count Seg Neuts % (Manual) Lymphocytes % (Manual) Basophils % (Manual) Seg Neutrophils # Man Lymphocytes # (Manual) Monocytes # (Manual) Eosinophils # (Manual) Basophils # (Manual) D-Dimer ABG pH 7.281 L 7.306 L POC ABG pCO2 POC ABG pO2 78.0 L ABG pO2 133.8 H ABG HCO3 18.3 L ABG Base Excess -7.8 L ABG Hemoglobin 10.8 L 10.8 L ABG Oxyhemoglobin ABG Sodium ABG Chloride 108.0 H ABG Glucose Oxyhemoglobin Sodium Potassium Chloride Carbon Dioxide BUN Creatinine Glucose POC Glucose 69 L Calcium Magnesium Ferritin Alkaline Phosphatase Lactate Dehydrogenase Total Creatine Kinase Troponin T C-Reactive Protein Albumin Triglycerides Cholesterol HDL Cholesterol Arterial Blood Glucose Arterial Blood Ionized Calcium Urine WBC (Auto) Salicylates Acetaminophen Hepatitis C Antibody 04/07/20 04/07/20 04/07/20 09:34 09:34 09:34 WBC RBC Hgb Hct RDW Plt Count Seg Neuts % (Manual) Lymphocytes % (Manual) Basophils % (Manual) Seg Neutrophils # Man Lymphocytes # (Manual) Monocytes # (Manual) Eosinophils # (Manual) Basophils # (Manual) D-Dimer 1063.66 H ABG pH POC ABG pCO2 POC ABG pO2 ABG pO2 ABG HCO3 ABG Base Excess ABG Hemoglobin ABG Oxyhemoglobin ABG Sodium ABG Chloride ABG Glucose Oxyhemoglobin Sodium Potassium Chloride Carbon Dioxide BUN Creatinine Glucose POC Glucose Calcium Magnesium Ferritin 743.0 H Alkaline Phosphatase Lactate Dehydrogenase 195 H Total Creatine Kinase Troponin T C-Reactive Protein 7.50 H Albumin Triglycerides Cholesterol HDL Cholesterol Arterial Blood Glucose Arterial Blood Ionized Calcium Urine WBC (Auto) Salicylates Acetaminophen Hepatitis C Antibody 04/07/20 04/07/20 04/07/20 10:01 16:38 23:51 WBC RBC Hgb Hct RDW Plt Count Seg Neuts % (Manual) Lymphocytes % (Manual) Basophils % (Manual) Seg Neutrophils # Man Lymphocytes # (Manual) Monocytes # (Manual) Eosinophils # (Manual) Basophils # (Manual) D-Dimer ABG pH POC ABG pCO2 POC ABG pO2 79.8 L ABG pO2 ABG HCO3 ABG Base Excess ABG Hemoglobin 10.3 L ABG Oxyhemoglobin ABG Sodium ABG Chloride 109.0 H ABG Glucose Oxyhemoglobin Sodium Potassium Chloride Carbon Dioxide BUN Creatinine Glucose POC Glucose 117 H Calcium Magnesium Ferritin Alkaline Phosphatase Lactate Dehydrogenase Total Creatine Kinase Troponin T C-Reactive Protein Albumin Triglycerides Cholesterol HDL Cholesterol Arterial Blood Glucose Arterial Blood Ionized Calcium 4.5 L Urine WBC (Auto) Salicylates Acetaminophen Hepatitis C Antibody Reactive A 04/08/20 04/08/20 04/08/20 04:58 12:48 17:03 WBC RBC Hgb Hct RDW Plt Count Seg Neuts % (Manual) Lymphocytes % (Manual) Basophils % (Manual) Seg Neutrophils # Man Lymphocytes # (Manual) Monocytes # (Manual) Eosinophils # (Manual) Basophils # (Manual) D-Dimer ABG pH POC ABG pCO2 POC ABG pO2 ABG pO2 ABG HCO3 ABG Base Excess ABG Hemoglobin ABG Oxyhemoglobin ABG Sodium ABG Chloride ABG Glucose Oxyhemoglobin Sodium Potassium Chloride Carbon Dioxide BUN Creatinine Glucose POC Glucose 129 H 155 H 201 H Calcium Magnesium Ferritin Alkaline Phosphatase Lactate Dehydrogenase Total Creatine Kinase Troponin T C-Reactive Protein Albumin Triglycerides Cholesterol HDL Cholesterol Arterial Blood Glucose Arterial Blood Ionized Calcium Urine WBC (Auto) Salicylates Acetaminophen Hepatitis C Antibody 04/08/20 04/08/20 04/09/20 23:49 Unknown 05:31 WBC RBC Hgb Hct RDW Plt Count Seg Neuts % (Manual) Lymphocytes % (Manual) Basophils % (Manual) Seg Neutrophils # Man Lymphocytes # (Manual) Monocytes # (Manual) Eosinophils # (Manual) Basophils # (Manual) D-Dimer ABG pH 7.349 L POC ABG pCO2 POC ABG pO2 ABG pO2 117.3 H ABG HCO3 ABG Base Excess ABG Hemoglobin 7.4 L ABG Oxyhemoglobin ABG Sodium ABG Chloride ABG Glucose Oxyhemoglobin Sodium Potassium Chloride Carbon Dioxide BUN Creatinine Glucose POC Glucose 178 H 248 H Calcium Magnesium Ferritin Alkaline Phosphatase Lactate Dehydrogenase Total Creatine Kinase Troponin T C-Reactive Protein Albumin Triglycerides Cholesterol HDL Cholesterol Arterial Blood Glucose Arterial Blood Ionized Calcium Urine WBC (Auto) Salicylates Acetaminophen Hepatitis C Antibody 04/09/20 04/09/20 04/09/20 11:39 17:35 Unknown WBC RBC Hgb Hct RDW Plt Count Seg Neuts % (Manual) Lymphocytes % (Manual) Basophils % (Manual) Seg Neutrophils # Man Lymphocytes # (Manual) Monocytes # (Manual) Eosinophils # (Manual) Basophils # (Manual) D-Dimer ABG pH POC ABG pCO2 51.6 H POC ABG pO2 ABG pO2 ABG HCO3 ABG Base Excess ABG Hemoglobin 11.4 L ABG Oxyhemoglobin ABG Sodium 130.1 L ABG Chloride ABG Glucose 249 H Oxyhemoglobin Sodium Potassium Chloride Carbon Dioxide BUN Creatinine Glucose POC Glucose 319 H 254 H Calcium Magnesium Ferritin Alkaline Phosphatase Lactate Dehydrogenase Total Creatine Kinase Troponin T C-Reactive Protein Albumin Triglycerides Cholesterol HDL Cholesterol Arterial Blood Glucose 249 H Arterial Blood Ionized Calcium 4.1 L Urine WBC (Auto) Salicylates Acetaminophen Hepatitis C Antibody 04/10/20 04/10/20 04/10/20 00:00 03:15 05:49 WBC RBC Hgb Hct RDW Plt Count Seg Neuts % (Manual) Lymphocytes % (Manual) Basophils % (Manual) Seg Neutrophils # Man Lymphocytes # (Manual) Monocytes # (Manual) Eosinophils # (Manual) Basophils # (Manual) D-Dimer ABG pH POC ABG pCO2 48.2 H POC ABG pO2 ABG pO2 ABG HCO3 ABG Base Excess ABG Hemoglobin 9.9 L ABG Oxyhemoglobin ABG Sodium 135.4 L ABG Chloride ABG Glucose 215 H Oxyhemoglobin Sodium Potassium Chloride Carbon Dioxide BUN Creatinine Glucose POC Glucose 194 H 221 H Calcium Magnesium Ferritin Alkaline Phosphatase Lactate Dehydrogenase Total Creatine Kinase Troponin T C-Reactive Protein Albumin Triglycerides Cholesterol HDL Cholesterol Arterial Blood Glucose 215 H Arterial Blood Ionized Calcium 4.5 L Urine WBC (Auto) Salicylates Acetaminophen Hepatitis C Antibody 04/10/20 04/10/20 04/10/20 08:18 08:18 12:22 WBC 28.9 H RBC 3.38 L Hgb 9.5 L Hct 30.1 L RDW 16.9 H Plt Count Seg Neuts % (Manual) 87.0 H Lymphocytes % (Manual) 9.0 L Basophils % (Manual) 2.0 H Seg Neutrophils # Man 25.1 H Lymphocytes # (Manual) Monocytes # (Manual) Eosinophils # (Manual) Basophils # (Manual) 0.6 H D-Dimer ABG pH POC ABG pCO2 POC ABG pO2 ABG pO2 ABG HCO3 ABG Base Excess ABG Hemoglobin ABG Oxyhemoglobin ABG Sodium ABG Chloride ABG Glucose Oxyhemoglobin Sodium 134 L Potassium 3.5 L D Chloride 94.9 L Carbon Dioxide BUN 38 H Creatinine 5.5 H Glucose 230 H POC Glucose 218 H Calcium Magnesium Ferritin Alkaline Phosphatase Lactate Dehydrogenase Total Creatine Kinase Troponin T C-Reactive Protein Albumin Triglycerides Cholesterol HDL Cholesterol Arterial Blood Glucose Arterial Blood Ionized Calcium Urine WBC (Auto) Salicylates Acetaminophen Hepatitis C Antibody 04/10/20 04/10/20 04/10/20 17:27 18:08 23:29 WBC RBC Hgb Hct RDW Plt Count Seg Neuts % (Manual) Lymphocytes % (Manual) Basophils % (Manual) Seg Neutrophils # Man Lymphocytes # (Manual) Monocytes # (Manual) Eosinophils # (Manual) Basophils # (Manual) D-Dimer ABG pH POC ABG pCO2 POC ABG pO2 ABG pO2 ABG HCO3 ABG Base Excess ABG Hemoglobin ABG Oxyhemoglobin ABG Sodium ABG Chloride ABG Glucose Oxyhemoglobin Sodium Potassium Chloride Carbon Dioxide BUN Creatinine Glucose POC Glucose 218 H 223 H 166 H Calcium Magnesium Ferritin Alkaline Phosphatase Lactate Dehydrogenase Total Creatine Kinase Troponin T C-Reactive Protein Albumin Triglycerides Cholesterol HDL Cholesterol Arterial Blood Glucose Arterial Blood Ionized Calcium Urine WBC (Auto) Salicylates Acetaminophen Hepatitis C Antibody 04/11/20 04/11/20 04/11/20 03:44 05:28 07:39 WBC 26.9 H RBC 3.32 L Hgb 9.4 L Hct 29.5 L RDW 17.2 H Plt Count Seg Neuts % (Manual) 83.0 H Lymphocytes % (Manual) 10.0 L Basophils % (Manual) Seg Neutrophils # Man 22.3 H Lymphocytes # (Manual) Monocytes # (Manual) 1.1 H Eosinophils # (Manual) 0.5 H Basophils # (Manual) D-Dimer ABG pH 7.313 L POC ABG pCO2 POC ABG pO2 ABG pO2 73.4 L ABG HCO3 26.7 H ABG Base Excess ABG Hemoglobin 11.0 L ABG Oxyhemoglobin ABG Sodium ABG Chloride ABG Glucose Oxyhemoglobin 92.8 L Sodium Potassium Chloride Carbon Dioxide BUN Creatinine Glucose POC Glucose 164 H Calcium Magnesium Ferritin Alkaline Phosphatase Lactate Dehydrogenase Total Creatine Kinase Troponin T C-Reactive Protein Albumin Triglycerides Cholesterol HDL Cholesterol Arterial Blood Glucose Arterial Blood Ionized Calcium Urine WBC (Auto) Salicylates Acetaminophen Hepatitis C Antibody 04/11/20 04/11/20 04/11/20 07:39 12:25 19:02 WBC RBC Hgb Hct RDW Plt Count Seg Neuts % (Manual) Lymphocytes % (Manual) Basophils % (Manual) Seg Neutrophils # Man Lymphocytes # (Manual) Monocytes # (Manual) Eosinophils # (Manual) Basophils # (Manual) D-Dimer ABG pH POC ABG pCO2 POC ABG pO2 ABG pO2 ABG HCO3 ABG Base Excess ABG Hemoglobin ABG Oxyhemoglobin ABG Sodium ABG Chloride ABG Glucose Oxyhemoglobin Sodium Potassium Chloride Carbon Dioxide BUN 48 H Creatinine 6.1 H Glucose 122 H POC Glucose 175 H 175 H Calcium 8.3 L Magnesium Ferritin Alkaline Phosphatase Lactate Dehydrogenase Total Creatine Kinase Troponin T C-Reactive Protein Albumin Triglycerides Cholesterol HDL Cholesterol Arterial Blood Glucose Arterial Blood Ionized Calcium Urine WBC (Auto) Salicylates Acetaminophen Hepatitis C Antibody 04/12/20 04/12/20 04/12/20 00:02 05:51 08:14 WBC 28.0 H RBC 3.29 L Hgb 9.5 L Hct 29.1 L RDW 16.9 H Plt Count Seg Neuts % (Manual) 88.0 H Lymphocytes % (Manual) 7.0 L Basophils % (Manual) Seg Neutrophils # Man 24.6 H Lymphocytes # (Manual) Monocytes # (Manual) Eosinophils # (Manual) 0.6 H Basophils # (Manual) D-Dimer ABG pH POC ABG pCO2 POC ABG pO2 ABG pO2 ABG HCO3 ABG Base Excess ABG Hemoglobin ABG Oxyhemoglobin ABG Sodium ABG Chloride ABG Glucose Oxyhemoglobin Sodium Potassium Chloride Carbon Dioxide BUN Creatinine Glucose POC Glucose 146 H 151 H Calcium Magnesium Ferritin Alkaline Phosphatase Lactate Dehydrogenase Total Creatine Kinase Troponin T C-Reactive Protein Albumin Triglycerides Cholesterol HDL Cholesterol Arterial Blood Glucose Arterial Blood Ionized Calcium Urine WBC (Auto) Salicylates Acetaminophen Hepatitis C Antibody 04/12/20 04/12/20 04/12/20 08:14 12:21 17:26 WBC RBC Hgb Hct RDW Plt Count Seg Neuts % (Manual) Lymphocytes % (Manual) Basophils % (Manual) Seg Neutrophils # Man Lymphocytes # (Manual) Monocytes # (Manual) Eosinophils # (Manual) Basophils # (Manual) D-Dimer ABG pH POC ABG pCO2 POC ABG pO2 ABG pO2 ABG HCO3 ABG Base Excess ABG Hemoglobin ABG Oxyhemoglobin ABG Sodium ABG Chloride ABG Glucose Oxyhemoglobin Sodium Potassium 3.3 L Chloride Carbon Dioxide BUN 32 H Creatinine 4.3 H Glucose 188 H POC Glucose 196 H 235 H Calcium Magnesium Ferritin Alkaline Phosphatase Lactate Dehydrogenase Total Creatine Kinase Troponin T C-Reactive Protein Albumin Triglycerides Cholesterol HDL Cholesterol Arterial Blood Glucose Arterial Blood Ionized Calcium Urine WBC (Auto) Salicylates Acetaminophen Hepatitis C Antibody 04/12/20 04/13/20 04/13/20 23:34 03:40 05:33 WBC RBC Hgb Hct RDW Plt Count Seg Neuts % (Manual) Lymphocytes % (Manual) Basophils % (Manual) Seg Neutrophils # Man Lymphocytes # (Manual) Monocytes # (Manual) Eosinophils # (Manual) Basophils # (Manual) D-Dimer ABG pH POC ABG pCO2 POC ABG pO2 ABG pO2 ABG HCO3 ABG Base Excess ABG Hemoglobin 9.4 L ABG Oxyhemoglobin ABG Sodium 133.6 L ABG Chloride ABG Glucose 172 H Oxyhemoglobin Sodium Potassium Chloride Carbon Dioxide BUN Creatinine Glucose POC Glucose 171 H 167 H Calcium Magnesium Ferritin Alkaline Phosphatase Lactate Dehydrogenase Total Creatine Kinase Troponin T C-Reactive Protein Albumin Triglycerides Cholesterol HDL Cholesterol Arterial Blood Glucose 172 H Arterial Blood Ionized Calcium Urine WBC (Auto) Salicylates Acetaminophen Hepatitis C Antibody 04/13/20 04/13/20 04/13/20 07:49 09:09 11:34 WBC RBC Hgb Hct RDW Plt Count Seg Neuts % (Manual) Lymphocytes % (Manual) Basophils % (Manual) Seg Neutrophils # Man Lymphocytes # (Manual) Monocytes # (Manual) Eosinophils # (Manual) Basophils # (Manual) D-Dimer ABG pH POC ABG pCO2 POC ABG pO2 ABG pO2 ABG HCO3 ABG Base Excess ABG Hemoglobin ABG Oxyhemoglobin ABG Sodium ABG Chloride ABG Glucose Oxyhemoglobin Sodium Potassium Chloride Carbon Dioxide 31 H BUN 44 H 43 H Creatinine 5.0 H 4.9 H Glucose 164 H 164 H POC Glucose 155 H Calcium Magnesium Ferritin Alkaline Phosphatase Lactate Dehydrogenase Total Creatine Kinase Troponin T C-Reactive Protein Albumin Triglycerides Cholesterol HDL Cholesterol Arterial Blood Glucose Arterial Blood Ionized Calcium Urine WBC (Auto) Salicylates Acetaminophen Hepatitis C Antibody 04/13/20 04/13/20 04/14/20 17:38 23:40 04:35 WBC RBC Hgb Hct RDW Plt Count Seg Neuts % (Manual) Lymphocytes % (Manual) Basophils % (Manual) Seg Neutrophils # Man Lymphocytes # (Manual) Monocytes # (Manual) Eosinophils # (Manual) Basophils # (Manual) D-Dimer ABG pH POC ABG pCO2 POC ABG pO2 ABG pO2 ABG HCO3 ABG Base Excess ABG Hemoglobin ABG Oxyhemoglobin ABG Sodium ABG Chloride ABG Glucose Oxyhemoglobin Sodium Potassium Chloride Carbon Dioxide BUN Creatinine Glucose POC Glucose 180 H 130 H 121 H Calcium Magnesium Ferritin Alkaline Phosphatase Lactate Dehydrogenase Total Creatine Kinase Troponin T C-Reactive Protein Albumin Triglycerides Cholesterol HDL Cholesterol Arterial Blood Glucose Arterial Blood Ionized Calcium Urine WBC (Auto) Salicylates Acetaminophen Hepatitis C Antibody 04/14/20 04/14/20 04/15/20 12:17 17:06 00:11 WBC RBC Hgb Hct RDW Plt Count Seg Neuts % (Manual) Lymphocytes % (Manual) Basophils % (Manual) Seg Neutrophils # Man Lymphocytes # (Manual) Monocytes # (Manual) Eosinophils # (Manual) Basophils # (Manual) D-Dimer ABG pH POC ABG pCO2 POC ABG pO2 ABG pO2 ABG HCO3 ABG Base Excess ABG Hemoglobin ABG Oxyhemoglobin ABG Sodium ABG Chloride ABG Glucose Oxyhemoglobin Sodium Potassium Chloride Carbon Dioxide BUN Creatinine Glucose POC Glucose 170 H 177 H 156 H Calcium Magnesium Ferritin Alkaline Phosphatase Lactate Dehydrogenase Total Creatine Kinase Troponin T C-Reactive Protein Albumin Triglycerides Cholesterol HDL Cholesterol Arterial Blood Glucose Arterial Blood Ionized Calcium Urine WBC (Auto) Salicylates Acetaminophen Hepatitis C Antibody 04/15/20 04/15/20 04/15/20 05:09 11:45 17:12 WBC RBC Hgb Hct RDW Plt Count Seg Neuts % (Manual) Lymphocytes % (Manual) Basophils % (Manual) Seg Neutrophils # Man Lymphocytes # (Manual) Monocytes # (Manual) Eosinophils # (Manual) Basophils # (Manual) D-Dimer ABG pH POC ABG pCO2 POC ABG pO2 ABG pO2 ABG HCO3 ABG Base Excess ABG Hemoglobin ABG Oxyhemoglobin ABG Sodium ABG Chloride ABG Glucose Oxyhemoglobin Sodium Potassium Chloride Carbon Dioxide BUN Creatinine Glucose POC Glucose 141 H 154 H 177 H Calcium Magnesium Ferritin Alkaline Phosphatase Lactate Dehydrogenase Total Creatine Kinase Troponin T C-Reactive Protein Albumin Triglycerides Cholesterol HDL Cholesterol Arterial Blood Glucose Arterial Blood Ionized Calcium Urine WBC (Auto) Salicylates Acetaminophen Hepatitis C Antibody 04/16/20 04/16/20 04/16/20 05:11 12:13 17:31 WBC RBC Hgb Hct RDW Plt Count Seg Neuts % (Manual) Lymphocytes % (Manual) Basophils % (Manual) Seg Neutrophils # Man Lymphocytes # (Manual) Monocytes # (Manual) Eosinophils # (Manual) Basophils # (Manual) D-Dimer ABG pH POC ABG pCO2 POC ABG pO2 ABG pO2 ABG HCO3 ABG Base Excess ABG Hemoglobin ABG Oxyhemoglobin ABG Sodium ABG Chloride ABG Glucose Oxyhemoglobin Sodium Potassium Chloride Carbon Dioxide BUN Creatinine Glucose POC Glucose 115 H 122 H 188 H Calcium Magnesium Ferritin Alkaline Phosphatase Lactate Dehydrogenase Total Creatine Kinase Troponin T C-Reactive Protein Albumin Triglycerides Cholesterol HDL Cholesterol Arterial Blood Glucose Arterial Blood Ionized Calcium Urine WBC (Auto) Salicylates Acetaminophen Hepatitis C Antibody 04/16/20 04/17/20 04/17/20 23:47 05:44 05:44 WBC 19.5 H RBC 3.26 L Hgb 9.3 L Hct 28.7 L RDW 15.9 H Plt Count 604 H Seg Neuts % (Manual) 81.0 H Lymphocytes % (Manual) 11.0 L Basophils % (Manual) Seg Neutrophils # Man 15.8 H Lymphocytes # (Manual) Monocytes # (Manual) Eosinophils # (Manual) 0.6 H Basophils # (Manual) 0.2 H D-Dimer ABG pH POC ABG pCO2 POC ABG pO2 ABG pO2 ABG HCO3 ABG Base Excess ABG Hemoglobin ABG Oxyhemoglobin ABG Sodium ABG Chloride ABG Glucose Oxyhemoglobin Sodium Potassium Chloride Carbon Dioxide BUN 28 H Creatinine 3.3 H Glucose 130 H POC Glucose 156 H Calcium Magnesium Ferritin Alkaline Phosphatase Lactate Dehydrogenase Total Creatine Kinase Troponin T C-Reactive Protein Albumin Triglycerides Cholesterol HDL Cholesterol Arterial Blood Glucose Arterial Blood Ionized Calcium Urine WBC (Auto) Salicylates Acetaminophen Hepatitis C Antibody 04/17/20 04/17/20 04/17/20 12:57 17:18 22:04 WBC RBC Hgb Hct RDW Plt Count Seg Neuts % (Manual) Lymphocytes % (Manual) Basophils % (Manual) Seg Neutrophils # Man Lymphocytes # (Manual) Monocytes # (Manual) Eosinophils # (Manual) Basophils # (Manual) D-Dimer ABG pH 7.553 H POC ABG pCO2 POC ABG pO2 206.5 H ABG pO2 ABG HCO3 ABG Base Excess ABG Hemoglobin 11.2 L ABG Oxyhemoglobin 99.1 H ABG Sodium 133.0 L ABG Chloride ABG Glucose 183 H Oxyhemoglobin Sodium Potassium Chloride Carbon Dioxide BUN Creatinine Glucose POC Glucose 146 H 156 H Calcium Magnesium Ferritin Alkaline Phosphatase Lactate Dehydrogenase Total Creatine Kinase Troponin T C-Reactive Protein Albumin Triglycerides Cholesterol HDL Cholesterol Arterial Blood Glucose 183 H Arterial Blood Ionized Calcium 4.4 L Urine WBC (Auto) Salicylates Acetaminophen Hepatitis C Antibody 04/17/20 04/18/20 04/18/20 23:29 03:23 04:43 WBC RBC Hgb Hct RDW Plt Count Seg Neuts % (Manual) Lymphocytes % (Manual) Basophils % (Manual) Seg Neutrophils # Man Lymphocytes # (Manual) Monocytes # (Manual) Eosinophils # (Manual) Basophils # (Manual) D-Dimer ABG pH 7.486 H POC ABG pCO2 POC ABG pO2 56.4 L ABG pO2 ABG HCO3 ABG Base Excess ABG Hemoglobin 11.2 L ABG Oxyhemoglobin 92.0 L ABG Sodium 135.1 L ABG Chloride ABG Glucose 138 H Oxyhemoglobin Sodium Potassium Chloride Carbon Dioxide BUN Creatinine Glucose POC Glucose 125 H 119 H Calcium Magnesium Ferritin Alkaline Phosphatase Lactate Dehydrogenase Total Creatine Kinase Troponin T C-Reactive Protein Albumin Triglycerides Cholesterol HDL Cholesterol Arterial Blood Glucose 138 H Arterial Blood Ionized Calcium 4.5 L Urine WBC (Auto) Salicylates Acetaminophen Hepatitis C Antibody 04/18/20 04/18/20 04/18/20 06:48 06:48 06:48 WBC 38.7 H RBC Hgb Hct RDW 16.3 H Plt Count 597 H Seg Neuts % (Manual) Lymphocytes % (Manual) Basophils % (Manual) Seg Neutrophils # Man Lymphocytes # (Manual) Monocytes # (Manual) Eosinophils # (Manual) Basophils # (Manual) D-Dimer 1144.77 H ABG pH POC ABG pCO2 POC ABG pO2 ABG pO2 ABG HCO3 ABG Base Excess ABG Hemoglobin ABG Oxyhemoglobin ABG Sodium ABG Chloride ABG Glucose Oxyhemoglobin Sodium 134 L Potassium Chloride 96.4 L Carbon Dioxide BUN 19 H Creatinine 2.6 H Glucose 104 H POC Glucose Calcium Magnesium Ferritin Alkaline Phosphatase 413 H Lactate Dehydrogenase Total Creatine Kinase Troponin T C-Reactive Protein Albumin 2.8 L Triglycerides Cholesterol HDL Cholesterol Arterial Blood Glucose Arterial Blood Ionized Calcium Urine WBC (Auto) Salicylates Acetaminophen Hepatitis C Antibody 04/18/20 04/18/20 04/19/20 11:33 17:18 06:24 WBC 28.9 H RBC 3.33 L Hgb 9.5 L Hct 29.5 L RDW 16.0 H Plt Count 577 H Seg Neuts % (Manual) Lymphocytes % (Manual) Basophils % (Manual) Seg Neutrophils # Man Lymphocytes # (Manual) Monocytes # (Manual) Eosinophils # (Manual) Basophils # (Manual) D-Dimer ABG pH POC ABG pCO2 POC ABG pO2 ABG pO2 ABG HCO3 ABG Base Excess ABG Hemoglobin ABG Oxyhemoglobin ABG Sodium ABG Chloride ABG Glucose Oxyhemoglobin Sodium Potassium Chloride Carbon Dioxide BUN Creatinine Glucose POC Glucose 195 H 162 H Calcium Magnesium Ferritin Alkaline Phosphatase Lactate Dehydrogenase Total Creatine Kinase Troponin T C-Reactive Protein Albumin Triglycerides Cholesterol HDL Cholesterol Arterial Blood Glucose Arterial Blood Ionized Calcium Urine WBC (Auto) Salicylates Acetaminophen Hepatitis C Antibody 04/19/20 04/19/20 04/20/20 06:24 17:28 07:50 WBC 22.7 H RBC 3.43 L Hgb 9.6 L Hct RDW 15.9 H Plt Count 530 H Seg Neuts % (Manual) Lymphocytes % (Manual) Basophils % (Manual) Seg Neutrophils # Man Lymphocytes # (Manual) Monocytes # (Manual) Eosinophils # (Manual) Basophils # (Manual) D-Dimer ABG pH POC ABG pCO2 POC ABG pO2 ABG pO2 ABG HCO3 ABG Base Excess ABG Hemoglobin ABG Oxyhemoglobin ABG Sodium ABG Chloride ABG Glucose Oxyhemoglobin Sodium Potassium Chloride Carbon Dioxide 31 H D BUN 27 H Creatinine 3.8 H Glucose POC Glucose 114 H Calcium Magnesium Ferritin Alkaline Phosphatase 343 H Lactate Dehydrogenase Total Creatine Kinase Troponin T C-Reactive Protein Albumin 2.8 L Triglycerides Cholesterol HDL Cholesterol Arterial Blood Glucose Arterial Blood Ionized Calcium Urine WBC (Auto) Salicylates Acetaminophen Hepatitis C Antibody 04/20/20 04/21/20 04/21/20 07:50 00:42 04:32 WBC 16.4 H RBC 3.37 L Hgb 9.7 L Hct 30.0 L RDW 15.6 H Plt Count 597 H Seg Neuts % (Manual) Lymphocytes % (Manual) Basophils % (Manual) Seg Neutrophils # Man Lymphocytes # (Manual) Monocytes # (Manual) Eosinophils # (Manual) Basophils # (Manual) D-Dimer ABG pH POC ABG pCO2 POC ABG pO2 ABG pO2 ABG HCO3 ABG Base Excess ABG Hemoglobin ABG Oxyhemoglobin ABG Sodium ABG Chloride ABG Glucose Oxyhemoglobin Sodium Potassium Chloride Carbon Dioxide 31 H BUN Creatinine 2.8 H Glucose POC Glucose 119 H Calcium Magnesium Ferritin Alkaline Phosphatase Lactate Dehydrogenase Total Creatine Kinase Troponin T C-Reactive Protein Albumin Triglycerides Cholesterol HDL Cholesterol Arterial Blood Glucose Arterial Blood Ionized Calcium Urine WBC (Auto) Salicylates Acetaminophen Hepatitis C Antibody 04/21/20 04/21/20 04/21/20 04:32 16:30 17:43 WBC RBC Hgb Hct RDW Plt Count Seg Neuts % (Manual) Lymphocytes % (Manual) Basophils % (Manual) Seg Neutrophils # Man Lymphocytes # (Manual) Monocytes # (Manual) Eosinophils # (Manual) Basophils # (Manual) D-Dimer ABG pH POC ABG pCO2 POC ABG pO2 ABG pO2 ABG HCO3 ABG Base Excess ABG Hemoglobin ABG Oxyhemoglobin ABG Sodium ABG Chloride ABG Glucose Oxyhemoglobin Sodium Potassium Chloride Carbon Dioxide BUN 25 H Creatinine 3.9 H Glucose 106 H POC Glucose 149 H 171 H Calcium Magnesium Ferritin Alkaline Phosphatase 324 H Lactate Dehydrogenase Total Creatine Kinase Troponin T C-Reactive Protein Albumin 3.0 L Triglycerides Cholesterol HDL Cholesterol Arterial Blood Glucose Arterial Blood Ionized Calcium Urine WBC (Auto) Salicylates Acetaminophen Hepatitis C Antibody 04/22/20 04/22/20 04/22/20 00:59 03:50 03:50 WBC 15.5 H RBC Hgb Hct RDW Plt Count 629 H Seg Neuts % (Manual) Lymphocytes % (Manual) Basophils % (Manual) Seg Neutrophils # Man Lymphocytes # (Manual) Monocytes # (Manual) Eosinophils # (Manual) Basophils # (Manual) D-Dimer ABG pH POC ABG pCO2 POC ABG pO2 ABG pO2 ABG HCO3 ABG Base Excess ABG Hemoglobin ABG Oxyhemoglobin ABG Sodium ABG Chloride ABG Glucose Oxyhemoglobin Sodium Potassium Chloride Carbon Dioxide BUN Creatinine 2.6 H Glucose 131 H POC Glucose 128 H Calcium Magnesium Ferritin Alkaline Phosphatase Lactate Dehydrogenase Total Creatine Kinase Troponin T C-Reactive Protein Albumin Triglycerides Cholesterol HDL Cholesterol Arterial Blood Glucose Arterial Blood Ionized Calcium Urine WBC (Auto) Salicylates Acetaminophen Hepatitis C Antibody 04/22/20 04/22/20 04/22/20 05:38 07:50 11:44 WBC RBC Hgb Hct RDW Plt Count Seg Neuts % (Manual) Lymphocytes % (Manual) Basophils % (Manual) Seg Neutrophils # Man Lymphocytes # (Manual) Monocytes # (Manual) Eosinophils # (Manual) Basophils # (Manual) D-Dimer ABG pH POC ABG pCO2 POC ABG pO2 ABG pO2 ABG HCO3 ABG Base Excess ABG Hemoglobin ABG Oxyhemoglobin ABG Sodium ABG Chloride ABG Glucose Oxyhemoglobin Sodium Potassium Chloride Carbon Dioxide BUN Creatinine Glucose POC Glucose 115 H 147 H 175 H Calcium Magnesium Ferritin Alkaline Phosphatase Lactate Dehydrogenase Total Creatine Kinase Troponin T C-Reactive Protein Albumin Triglycerides Cholesterol HDL Cholesterol Arterial Blood Glucose Arterial Blood Ionized Calcium Urine WBC (Auto) Salicylates Acetaminophen Hepatitis C Antibody 04/22/20 04/23/20 04/23/20 16:41 00:12 08:26 WBC RBC Hgb Hct RDW Plt Count Seg Neuts % (Manual) Lymphocytes % (Manual) Basophils % (Manual) Seg Neutrophils # Man Lymphocytes # (Manual) Monocytes # (Manual) Eosinophils # (Manual) Basophils # (Manual) D-Dimer ABG pH POC ABG pCO2 POC ABG pO2 ABG pO2 ABG HCO3 ABG Base Excess ABG Hemoglobin ABG Oxyhemoglobin ABG Sodium ABG Chloride ABG Glucose Oxyhemoglobin Sodium Potassium Chloride Carbon Dioxide BUN Creatinine Glucose POC Glucose 180 H 175 H Calcium Magnesium Ferritin Alkaline Phosphatase 308 H Lactate Dehydrogenase Total Creatine Kinase Troponin T C-Reactive Protein Albumin 3.2 L Triglycerides Cholesterol HDL Cholesterol Arterial Blood Glucose Arterial Blood Ionized Calcium Urine WBC (Auto) Salicylates Acetaminophen Hepatitis C Antibody 04/23/20 04/23/20 04/23/20 08:44 12:36 16:43 WBC RBC Hgb Hct RDW Plt Count Seg Neuts % (Manual) Lymphocytes % (Manual) Basophils % (Manual) Seg Neutrophils # Man Lymphocytes # (Manual) Monocytes # (Manual) Eosinophils # (Manual) Basophils # (Manual) D-Dimer ABG pH POC ABG pCO2 POC ABG pO2 ABG pO2 ABG HCO3 ABG Base Excess ABG Hemoglobin ABG Oxyhemoglobin ABG Sodium ABG Chloride ABG Glucose Oxyhemoglobin Sodium Potassium Chloride Carbon Dioxide BUN Creatinine Glucose POC Glucose 171 H 165 H 196 H Calcium Magnesium Ferritin Alkaline Phosphatase Lactate Dehydrogenase Total Creatine Kinase Troponin T C-Reactive Protein Albumin Triglycerides Cholesterol HDL Cholesterol Arterial Blood Glucose Arterial Blood Ionized Calcium Urine WBC (Auto) Salicylates Acetaminophen Hepatitis C Antibody 04/24/20 04/24/20 04/24/20 00:08 09:09 16:42 WBC RBC Hgb Hct RDW Plt Count Seg Neuts % (Manual) Lymphocytes % (Manual) Basophils % (Manual) Seg Neutrophils # Man Lymphocytes # (Manual) Monocytes # (Manual) Eosinophils # (Manual) Basophils # (Manual) D-Dimer ABG pH POC ABG pCO2 POC ABG pO2 ABG pO2 ABG HCO3 ABG Base Excess ABG Hemoglobin ABG Oxyhemoglobin ABG Sodium ABG Chloride ABG Glucose Oxyhemoglobin Sodium Potassium Chloride Carbon Dioxide BUN Creatinine Glucose POC Glucose 150 H 165 H 166 H Calcium Magnesium Ferritin Alkaline Phosphatase Lactate Dehydrogenase Total Creatine Kinase Troponin T C-Reactive Protein Albumin Triglycerides Cholesterol HDL Cholesterol Arterial Blood Glucose Arterial Blood Ionized Calcium Urine WBC (Auto) Salicylates Acetaminophen Hepatitis C Antibody 04/24/20 04/25/20 04/25/20 22:44 05:23 11:48 WBC RBC Hgb Hct RDW Plt Count Seg Neuts % (Manual) Lymphocytes % (Manual) Basophils % (Manual) Seg Neutrophils # Man Lymphocytes # (Manual) Monocytes # (Manual) Eosinophils # (Manual) Basophils # (Manual) D-Dimer ABG pH POC ABG pCO2 POC ABG pO2 ABG pO2 ABG HCO3 ABG Base Excess ABG Hemoglobin ABG Oxyhemoglobin ABG Sodium ABG Chloride ABG Glucose Oxyhemoglobin Sodium Potassium Chloride Carbon Dioxide BUN Creatinine Glucose POC Glucose 226 H 293 H 256 H Calcium Magnesium Ferritin Alkaline Phosphatase Lactate Dehydrogenase Total Creatine Kinase Troponin T C-Reactive Protein Albumin Triglycerides Cholesterol HDL Cholesterol Arterial Blood Glucose Arterial Blood Ionized Calcium Urine WBC (Auto) Salicylates Acetaminophen Hepatitis C Antibody 04/25/20 04/25/20 04/26/20 17:31 23:30 05:02 WBC RBC Hgb Hct RDW Plt Count Seg Neuts % (Manual) Lymphocytes % (Manual) Basophils % (Manual) Seg Neutrophils # Man Lymphocytes # (Manual) Monocytes # (Manual) Eosinophils # (Manual) Basophils # (Manual) D-Dimer ABG pH POC ABG pCO2 POC ABG pO2 ABG pO2 ABG HCO3 ABG Base Excess ABG Hemoglobin ABG Oxyhemoglobin ABG Sodium ABG Chloride ABG Glucose Oxyhemoglobin Sodium Potassium Chloride Carbon Dioxide BUN Creatinine Glucose POC Glucose 294 H 296 H 280 H Calcium Magnesium Ferritin Alkaline Phosphatase Lactate Dehydrogenase Total Creatine Kinase Troponin T C-Reactive Protein Albumin Triglycerides Cholesterol HDL Cholesterol Arterial Blood Glucose Arterial Blood Ionized Calcium Urine WBC (Auto) Salicylates Acetaminophen Hepatitis C Antibody 04/26/20 11:50 WBC RBC Hgb Hct RDW Plt Count Seg Neuts % (Manual) Lymphocytes % (Manual) Basophils % (Manual) Seg Neutrophils # Man Lymphocytes # (Manual) Monocytes # (Manual) Eosinophils # (Manual) Basophils # (Manual) D-Dimer ABG pH POC ABG pCO2 POC ABG pO2 ABG pO2 ABG HCO3 ABG Base Excess ABG Hemoglobin ABG Oxyhemoglobin ABG Sodium ABG Chloride ABG Glucose Oxyhemoglobin Sodium Potassium Chloride Carbon Dioxide BUN Creatinine Glucose POC Glucose 262 H Calcium Magnesium Ferritin Alkaline Phosphatase Lactate Dehydrogenase Total Creatine Kinase Troponin T C-Reactive Protein Albumin Triglycerides Cholesterol HDL Cholesterol Arterial Blood Glucose Arterial Blood Ionized Calcium Urine WBC (Auto) Salicylates Acetaminophen Hepatitis C Antibody Chest x-ray: pending Allied health notes reviewed: nursing
--- NOTE | 2020-04-26 12:40 | Event Note ---
I was asked to come to bedside. Nurse and hospitalist reports agonal respirations after returning from dialysis. Patient unresponsive. Gurgling. Not handling secretions. Poor gag reflex. I performed RSI for airway protection and ventilation. Patient was preoxygenated to 100% via NRB for 5 minutes. Patient received 20 mg succinylcholine and 100 mg of rocuronium. I used video laryngoscopy with Mac 3 blade to visualize glottic opening. I inserted 7.5 ETT into trachea, visualization throughout procedure confirmed placement while stylet was removed. Color change with CO2 detector. No complications. No desaturation occurred.
[2020-04-26] MEDS ORDERED: SODIUM CHLORIDE 0.9% 500 ML 500 ML IV ONE (12:59)
[2020-04-26] MEDS ORDERED: fentaNYL 100 MCG/2 ML INJ IV PRN (13:00)
[2020-04-26] MEDS ORDERED: fentaNYL DRIP Premix 2,000 MCG/100 ML BAG IV SCH (13:00)
[2020-04-26] MEDS ORDERED: ALBUMIN HUMAN 25% (25 GM/100 ML) INJ IV ONE (13:00)
[2020-04-26] MEDS ORDERED: SODIUM CHLORIDE 0.9% 1000 ML 1,000 ML IV ONE (13:00)
--- NOTE | 2020-04-26 13:13 | Event Note ---
Date: 04/26/20 Patient with respiratory distress and worsening mentation after returning from dialysis; code blue was called, now re-intubated and in the ICU. will defer egd/peg tube placement, please call once stable from acute medical issues to re- evaluate for procedure.
--- NOTE | 2020-04-26 13:15 | XRay Report ---
CHEST 1 VIEW 04/26/2020 12:15 PM INDICATION / CLINICAL INFORMATION: respiratory distress. COMPARISON: Chest one view from 04/17/2020. FINDINGS: SUPPORT DEVICES: Unchanged. HEART / MEDIASTINUM: No significant abnormality. LUNGS / PLEURA: Increased right basilar opacities. The left lung is clear. No significant pleural eff usion. No pneumothorax. ADDITIONAL FINDINGS: No significant additional findings. IMPRESSION: Increased right basilar opacities could represent atelectasis or pneumonia. Continued radiographic fo llow-up to resolution is recommended. Signer Name: Marlon Keller MD Signed: 04/26/2020 1:10 PM Workstation Name: [id number]
--- NOTE | 2020-04-26 13:16 | XRay Report ---
ABDOMEN 1 VIEW INDICATION / CLINICAL INFORMATION: NGT placement. COMPARISON: CT abdomen and pelvis without contrast from 04/23/2020. FINDINGS: TUBES / LINES: An NG tube terminates over the gastric antrum. BOWEL GAS PATTERN: No significant abnormality. FREE AIR / EXTRALUMINAL GAS: None seen. ADDITIONAL FINDINGS: No significant additional findings. IMPRESSION: Satisfactory positioning of the NG tube. No acute abnormality. Signer Name: Marlon Keller MD Signed: 04/26/2020 1:11 PM Workstation Name: [id number]
[2020-04-26 14:50] LABS: Hematocrit 39.9 % (30.3-42.9); Hemoglobin 12.5 gm/dl (10.1-14.3); Mean Corpuscular HGB Conc 31 % (30-34); Mean Corpuscular Volume 88 fl (79-97); Platelet Count 334 K/mm3 (140-440); Red Blood Count 4.51 M/mm3 (3.65-5.03); Red Cell Distribution Width 15.5 % (13.2-15.2)
[2020-04-26] MEDS: INSULIN GLARGINE 100 UNITS/ML SUB-Q SCH (14:53)
[2020-04-26] MEDS: LANSOPRAZOLE 30 MG SOLUTAB FEEDTUBE SCH (14:59)
[2020-04-26] MEDS: CEFEPIME/NS 1 GM/100 ML 1 GM/100 ML BAG IV SCH (14:59)
[2020-04-26 15:10] LABS: Calcium 9.3 mg/dL (8.4-10.2)
[2020-04-26] MEDS ORDERED: LIPASE 10,500/PROTEASE 25,000/AMYLASE 43,750 (UNITS) DR CAP FEEDTUBE PRN (16:00)
[2020-04-26] MEDS ORDERED: SIMPLE SYRUP 15 ML FEEDTUBE PRN ×2 (16:00)
[2020-04-26] MEDS ORDERED: SODIUM BICARBONATE 325 MG TAB FEEDTUBE PRN (16:00)
[2020-04-26 16:11] LABS: Total Cells Counted 100
[2020-04-26 16:12] LABS: Basophils % (Manual) 0 % (0.0-1.8); RBC Morphology Normal
--- NOTE | 2020-04-26 20:20 | Progress Note ---
Assessment and Plan Assessment and plan: 49 years old female with history of asthma, hypertension, end-stage renal disease on hemodialysis, diabetes mellitus, bipolar disorder, morbid obesity, CVA, resident of a assisted, admitted on 04/06/2020 secondary to be found Unresponsiveness after hemodialysis. Patient is unable to provide history, currently intubated. Patient received hemodialysis and after completion she became unresponsive. Upon EMS arrival, blood pressure was 90/60, HR 88, temperature 97.2. Per records, patient was not complaining of any symptoms. On arrival, temperature 94.1, HR 66, RR 18, O2 sat 87%, BP 131/111. Initial WBC 19.2. Urinalysis showed more than 182 WBCs and moderate leukocyte esterase. Chest x-ray shows bibasilar infiltrates. Patient was intubated in the emergency room to protect airway. Bains catheter was placed yielding purulent urine. Severe sepsis. Present on admission with hypothermia, leukocytosis, altered mental status, likely due to bilateral pneumonia. F/U Blood Cx. Cont. Abx pre ID Bilateral pneumonia. Aspiration pneumonia/HAP illness induced Gastroparesis: Stable Severe UTI. Bains catheter with purulent urine. Acute hypoxemic and hypercapnic respiratory failure. Intubated for airway protection, O2 sats down to 87%. Acute toxic metabolic encephalopathy. Etiology secondary to sepsis Bibasilar atelectasis, End-stage renal disease on hemodialysis Anemia of chronic renal disease vancomycin allergy ? Causing hives. PER ID documentation at other hosptial does not show vanc allergy Chronic leukocytosis, appears so based on review of records from here and [facility] in the past were reviewed. Chronic Hepatitis C: treatment status unknown. F/U HCV RNA PCR. Extensive Candidal intertrigo in groin and vagina. Cont. Fluconazole Intractable nausea with vomiting. 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 Patient remains intubated on mechanical ventilation with AC mode ventilation rate 12, tidal volume 450, FiO2 40% and a PEEP of 6. Continue weaning per protocols. Patient with ESRD and continue TTS schedule per nephrology. Patient does have a history of COVID-19 infection(01/07/20) but negative testing April 07. Follow-up blood/urine/sputum culture. Continue antibiotics per ID recommendations. 04/09/2020. Patient not tolerating PSV 12/6 with FiO2 of 30%. Continue hemod ialysis per nephrology recommendations. Continue IV antibiotics per ID recommendations. Blood cultures no growth to date. Respiratory therapy reports patient with accelerated hypertension and apneic episodes on PSV ventilation. Await pulmonary recommendations. 04/10/2020. Patient remains on mechanical ventilation AC mode rate 12, tidal volume 450, FiO2 30% and a PEEP of 6. Continue PSV trials per protocols. Continue hemodialysis per nephrology recommendations. Continue anti-infectives of fluconazole and cefepime. Follow-up blood/urine/sputum culture. ID, pulmonary and nephrology following. 04/11/2020; patient remains on mechanical ventilation AC mode rate 12, tidal volume 450, FiO2 of 30 and PEEP of 6. Continue PSV trials per protocols. continue hemodialysis per nephrology. ID changed antibiotics to meropenem. Blood culture grew staph epidermidis likey contaminant. 04/12/2020; patient is intubated, patient open eyes spontaneously. Neurology consulted and continue on replacement treatment. EEG is pending. Recommend MRI. Patient is on meropenem per ID recommendation. Pulmonary is following. Patient is on spontaneous breathing trial 04/13/2020; patient is intubated. Patient's blood pressure was high yesterday, amlodipine and hydralazine was added. Overnight his blood pressure was low and will also BP medications. We will continue to follow. 04/14/2020; patient is intubated and blood pressure is on the low side of normal. Patient is on meropenem 5/5. 04/15/2020; patient is intubated, on spontaneous breathing trial. Pulmonary is following. neurology recommend MRI. 04/16/2020; patient is intubated, on spontaneous breathing trial. Pulmonary is following. Neurology recommend MRI once stable. 04/17: Patient showing some clinical improvement. MRI still pending. Continues on restraints weaning trial today. Antibiotics per ID continue aspiration precautions although management by critical care physician. Noted elevated D- dimer level with trend. See ultrasound of the lower extremity was negative for DVT. Prior hospitalization showed elevated D-dimer also. Will discuss with nephrology if patient needs CTA to see if this can be managed with dialysis. This will be done if patient is unable to wean from the vent due to hypoxia. 04/18: Patient required re-intubation last night due to self extubation and decompensation with hypoxia. CXR post extubation showed tube in expected position. Patient also noted to have large projectile vomiting. - Obtain KUB - start Zofran - Hold tube feeds - May benefit from GI eval if vomiting continues. - She is currently being treated for Aspiration Pneumonia with bactermia and Acute cystitis 04/19: Now extubated, Continue supportive care and aspiration precautions. Patient complaining of chronic pain, will resume home dose pain meds and avoid oversedation. No new seizure noted. still awaiting MRI brain. GI input noted: illness induced gastropoaresis, otherwise KUB and LFT normal, will start low fat fiber diet once patient able to tolerate PO. Continue to monitor WBC, increased again today. 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 Unless indicated by Intesivist will like to monitor patient in the ICU for additional 24 hrs before downgrading. 04/20: CONTINUE Aspiration precautions, started on D5NS for low Blood glucose. Speech re-eval today. PAIN CONTROL 04/21: Continue aspiration precautions. Blood sugar stable continue to monitor WBC count. Will reassess with speech evaluation continue restraints due to aggressive behavior towards nurses and pulling on shelving. Monitor mental status. 04/22: patient complains of nasuea, will start on Reglan IV prn. CONTINUE supportive care. 04/23: Patient continues on restraints. She tells me that she has a history of Gastroparesis. Will start IV reglan., check ct abdomen and pelvis. repeat speech eval and may need PEG if still not tolerating Diet. She will benefit from a construction safety consultant 04/24: Awaiting repeat speech evaluation. Office summary patient was admitted on 04/06/2020 with unresponsiveness after hemodialysis and no assisted resident and also with noted-gastroparesis. Patient was treated for fluid overload also with some antibiotics including antifungal. Cultures were unremarkable. CT of the abdomen repeated yesterday showed some perinephric stranding with patchy bibasilar airspace disease concerning for pneumonia. Will place empirically on Keflex. And monitor closely. If patient passes swallow evaluation can work on discharge back to assisted tomorrow if not GI should be consulted for possible PEG placement. Mental status is improving. 04/25: patient remains lethergic, has failed swallow eval, has chronic Gastroparesis and also persistent Encephalopathy, will plan for PEG tube placement [facility] to [facility]. 04/26: Patient reintubated today due to agonal breathing with altered sensorium while a CODE BLUE was called did not require CPR. Will obtain a EEG, CT of the head, echocardiogram if this has not been done. I have discussed with family and updated them about her prognosis considering recurrent readmission. Patient was planned for PEG tube but this has been put on hold at this time. The high probability of a clinically significant, sudden or life threatening deterioration of the [pulmonary, neurology, renal] system(s) required my full a nd direct attention, intervention and personal management. The aggregate critical care time was [35] minutes. This time is in addition to time spent performing reported procedures but includes the following: [X] Data Review and interpretation [X] Patient assessment and monitoring of vital signs [X] Documentation [X] Medication orders and management History Interval history: Patient seen and examined, patient became more altered today unable to maintain airway and also with agonal breathing. Prompting her reintubation Hospitalist Physical - Physical exam Narrative exam: VITAL SIGNS: Reviewed. GENERAL: The patient appears normally developed, reintubated vital signs as do cumented. HEAD: No signs of head trauma. EYES: Pupils are equal. EARS: Unable to examine MOUTH: Oropharynx is normal. face mask on. NECK: No adenopathy, no JVD. CHEST: Chest with t diminished breath sounds bilaterally. No wheezes, rales, or rhonchi. CARDIAC: Regular rate and rhythm. S1 and S2, without murmurs, gallops, or rubs. VASCULAR: No Edema. Peripheral pulses normal and equal in all extremities. ABDOMEN: Soft, non tender and non distended. No rebound or guarding, and no masses palpated. Bowel Sounds normal. MUSCULOSKELETAL: Bilateral BKA NEUROLOGIC EXAM: Awake, lethargic confused. PSYCHIATRIC: Unable to examine SKIN: detail exam as documented in skin assessment - Constitutional Vitals: Temp Pulse Resp BP Pulse Ox 100.8 F H 118 H 18 137/69 100 04/26/20 20:00 04/26/20 19:33 04/26/20 19:00 04/26/20 19:33 04/26/20 19:33 General appearance: Present: severe distress, other (Intubated on mechanical ventilation) HEART Score - HEART Score Troponin: Troponin T 0.224 ng/mL (0.00-0.029) H* 04/06/20 14:30 Results - Labs CBC & Chem 7: 04/26/20 14:26 04/26/20 14:26 Labs: Laboratory Last Values WBC 33.9 K/mm3 (4.5-11.0) H 04/26/20 14:26 RBC 4.51 M/mm3 (3.65-5.03) 04/26/20 14:26 Hgb 12.5 gm/dl (10.1-14.3) 04/26/20 14:26 Hct 39.9 % (30.3-42.9) 04/26/20 14:26 MCV 88 fl (79-97) 04/26/20 14:26 MCH 28 pg (28-32) 04/26/20 14: MCHC 31 % (30-34) 04/26/20 14: RDW 15.5 % (13.2-15.2) H 04/26/20 14: Plt Count 334 K/mm3 (140-440) 04/26/20 14:26 Add Manual Diff Complete 04/26/20 14:26 Total Counted 100 04/26/20 14:26 Seg Neuts % (Manual) 84.0 % (40.0-70.0) H 04/26/20 14: Band Neutrophils % 0 % 04/26/20 14: Lymphocytes % (Manual) 7.0 % (13.4-35.0) L 04/26/20 14:26 Reactive Lymphs % (Man) 0 % 04/26/20 14:26 Monocytes % (Manual) 8.0 % (0.0-7.3) H 04/26/20 14: Eosinophils % (Manual) 1.0 % (0.0-4.3) 04/26/20 14:26 Basophils % (Manual) 0 % (0.0-1.8) 04/26/20 14:26 Metamyelocytes % 0 % 04/26/20 14:26 Myelocytes % 0 % 04/26/20 14:26 Promyelocytes % 0 % 04/26/20 14:26 Blast Cells % 0 % 04/26/20 14:26 Nucleated RBC % Not Reportable 04/26/20 14:26 Seg Neutrophils # Man 28.5 K/mm3 (1.8-7.7) H 04/26/20 14:26 Band Neutrophils # 0.0 K/mm3 04/26/20 14:26 Lymphocytes # (Manual) 2.4 K/mm3 (1.2-5.4) 04/26/20 14:26 Abs React Lymphs (Man) 0.0 K/mm3 04/26/20 14:26 Monocytes # (Manual) 2.7 K/mm3 (0.0-0.8) H 04/26/20 14: Eosinophils # (Manual) 0.3 K/mm3 (0.0-0.4) 04/26/20 14: Basophils # (Manual) 0.0 K/mm3 (0.0-0.1) 04/26/20 14: Metamyelocytes # 0.0 K/mm3 04/26/20 14: Myelocytes # 0.0 K/mm3 04/26/20 14: Promyelocytes # 0.0 K/mm3 04/26/20 14: Blast Cells # 0.0 K/mm3 04/26/20 14:26 WBC Morphology Not Reportable 04/26/20 14:26 Hypersegmented Neuts Not Reportable 04/26/20 14:26 Hyposegmented Neuts Not Reportable 04/26/20 14:26 Hypogranular Neuts Not Reportable 04/26/20 14:26 Smudge Cells Not Reportable 04/26/20 14:26 Toxic Granulation Not Reportable 04/26/20 14:26 Toxic Vacuolation Not Reportable 04/26/20 14:26 Dohle Bodies Not Reportable 04/26/20 14:26 Pelger-Huet Anomaly Not Reportable 04/26/20 14:26 Stephanie Rods Not Reportable 04/26/20 14:26 Platelet Estimate Not Reportable 04/26/20 14:26 Clumped Platelets Not Reportable 04/26/20 14:26 Plt Clumps, EDTA Not Reportable 04/26/20 14:26 Large Platelets Not Reportable 04/26/20 14: Giant Platelets Not Reportable 04/26/20 14:26 Platelet Satelliting Not Reportable 04/26/20 14:26 Plt Morphology Comment Not Reportable 04/26/20 14:26 RBC Morphology Normal 04/26/20 14:26 Dimorphic RBCs Not Reportable 04/26/20 14: Polychromasia Not Reportable 04/26/20 14:26 Hypochromasia Not Reportable 04/26/20 14:26 Poikilocytosis Not Reportable 04/26/20 14:26 Anisocytosis Not Reportable 04/26/20 14:26 Microcytosis Not Reportable 04/26/20 14:26 Macrocytosis Not Reportable 04/26/20 14:26 Spherocytes Not Reportable 04/26/20 14:26 Pappenheimer Bodies Not Reportable 04/26/20 14:26 Sickle Cells Not Reportable 04/26/20 14:26 Target Cells Not Reportable 04/26/20 14:26 Tear Drop Cells Not Reportable 04/26/20 14:26 Ovalocytes Not Reportable 04/26/20 14:26 Stomatocytes Few 04/12/20 08:14 Helmet Cells Not Reportable 04/26/20 14:26 [place] Bodies Not Reportable 04/26/20 14:26 [place] Rings Not Reportable 04/26/20 14:26 [place] Cells Not Reportable 04/26/20 14:26 Bite Cells Not Reportable 04/26/20 14:26 Crenated Cell Not Reportable 04/26/20 14:26 Elliptocytes Not Reportable 04/26/20 14:26 Acanthocytes (Spur) Not Reportable 04/26/20 14:26 Rouleaux Not Reportable 04/26/20 14:26 Hemoglobin C Crystals Not Reportable 04/26/20 14:26 Schistocytes Not Reportable 04/26/20 14:26 Malaria parasites Not Reportable 04/26/20 14:26 Lc Bodies Not Reportable 04/26/20 14:26 Hem Pathologist Commnt No 04/26/20 14:26 PT 13.4 Sec. (12.2-14.9) 04/25/20 14: INR 1.04 (0.87-1.13) 04/25/20 14:19 APTT 28.1 Sec. (24.2-36.6) 04/06/20 14:30 D-Dimer 1144.77 ng/mlDDU (0-234) H 04/18/20 06:48 ABG pH 7.379 (7.320-7.450) 04/26/20 13:30 POC ABG pCO2 41.1 mmHg (32.0-48.0) 04/26/20 13:30 ABG pCO2 54.0 mm Hg 04/11/20 03:44 POC ABG pO2 66.4 mmHg (83-108) L 04/26/20 13:30 ABG pO2 73.4 mm Hg (80.0-90.0) L 04/11/20 03:44 POC ABG HCO3 23.7 04/26/20 13:30 ABG HCO3 26.7 mmol/L (20.0-26.0) H 04/11/20 03:44 ABG O2 Saturation 95.0 % (95.0-99.0) 04/11/20 03:44 ABG O2 Content 14.4 (0.0-44) 04/11/20 03:44 POC ABG Base Excess -1.3 04/26/20 13:30 ABG Base Excess -0.1 mmol/L (-2.0-3.0) 04/11/20 03:44 ABG Hemoglobin 12.9 (12.0-17.5) 04/26/20 13:30 ABG Oxyhemoglobin 92.0 (94-98) L 04/18/20 03:23 ABG Carboxyhemoglobin 1.6 % (0.0-5.0) 04/11/20 03:44 ABG Methemoglobin 0.3 (0.0-1.5) 04/18/20 03:23 ABG Sodium 139.4 mmol/L (136.0-145.0) 04/26/20 13:30 ABG Potassium 3.6 mmol/L (3.40-4.50) 04/26/20 13:30 ABG Chloride 101.0 mmol/L (98-107) 04/26/20 13:30 ABG Glucose 344 mg/dL (65-95) H 04/26/20 13:30 Oxyhemoglobin 92.8 % (95.0-99.0) L 04/11/20 03:44 Carboxyhemoglobin 0.6 (0.5-1.5) 04/18/20 03:23 FiO2 50.0 04/26/20 13:30 Sodium 135 mmol/L (137-145) L 04/26/20 14:26 Potassium 3.9 mmol/L (3.6-5.0) 04/26/20 14:26 Chloride 98.9 mmol/L (98-107) 04/26/20 14:26 Carbon Dioxide 18 mmol/L (22-30) L D 04/26/20 14:26 Anion Gap 22 mmol/L 04/26/20 14:26 BUN 27 mg/dL (7-17) H 04/26/20 14:26 Creatinine 3.3 mg/dL (0.6-1.2) H 04/26/20 14:26 Estimated GFR 15 ml/min 04/26/20 14:26 BUN/Creatinine Ratio 8 % 04/26/20 14:26 Glucose 316 mg/dL (65-100) H 04/26/20 14:26 POC Glucose 238 mg/dL (70-105) H 04/26/20 17:10 Lactic Acid 2.30 mmol/L (0.7-2.0) H* 04/26/20 14:26 Calcium 9.3 mg/dL (8.4-10.2) 04/26/20 14:26 Phosphorus 3.00 mg/dL (2.5-4.5) 04/17/20 05:44 Magnesium 2.00 mg/dL (1.7-2.3) 04/17/20 05:44 Ferritin 743.0 ng/mL (10.0-200.0) H 04/07/20 09:34 Total Bilirubin 0.30 mg/dL (0.1-1.2) 04/23/20 08:26 Direct Bilirubin < 0.2 mg/dL (0-0.2) 04/23/20 08:26 Indirect Bilirubin 0.1 mg/dL 04/23/20 08:26 AST 15 units/L (5-40) 04/23/20 08:26 ALT 10 units/L (7-56) 04/23/20 08:26 Alkaline Phosphatase 308 units/L (35-129) H 04/23/20 08:26 Ammonia 43.0 umol/L (25-60) 04/06/20 14:30 Lactate Dehydrogenase 195 units/L (91-180) H 04/07/20 09:34 Total Creatine Kinase 23 units/L (30-135) L 04/06/20 14:30 Total Creatine Kinase 24 units/L (30-135) L 04/06/20 14:30 Troponin T 0.224 ng/mL (0.00-0.029) H* 04/06/20 14:30 C-Reactive Protein 7.50 mg/dL (0.00-1.30) H 04/07/20 09:34 Total Protein 8.2 g/dL (6.3-8.2) 04/23/20 08:26 Albumin 3.2 g/dL (3.9-5) L 04/23/20 08:26 Albumin/Globulin Ratio 0.6 % 04/23/20 08:26 Triglycerides 342 mg/dL (2-149) H 04/06/20 14:30 Cholesterol 223 mg/dL (50-199) H 04/06/20 14:30 LDL Cholesterol Direct 123 mg/dL (50-130) 04/06/20 14:30 HDL Cholesterol 35 mg/dL (40-59) L 04/06/20 14:30 Cholesterol/HDL Ratio 6.37 % 04/06/20 14:30 Procalcitonin 1.59 ng/mL (<0.15) 04/13/20 19:10 TSH 1.320 mlU/mL (0.270-4.200) 04/06/20 14:30 HCG, Qual Negative (Negative) 04/06/20 14:30 Arterial Blood Glucose 344 mg/dL (65-95) H 04/26/20 13:30 Arterial Blood Ionized Calcium 4.7 mg/dL (4.6-5.3) 04/26/20 13:30 Urine Color Yellow (Yellow) 04/06/20 13:34 Urine Turbidity Turbid (Clear) 04/06/20 13:34 Urine pH 7.0 (5.0-7.0) 04/06/20 13:34 Ur Specific [place] 1.017 (1.003-1.030) 04/06/20 13:34 Urine Protein 100 mg/dl mg/dL (Negative) 04/06/20 13:34 Urine Glucose (UA) 50 mg/dL (Negative) 04/06/20 13:34 Urine Ketones Tr mg/dL (Negative) 04/06/20 13:34 Urine Blood Sm (Negative) 04/06/20 13:34 Urine Nitrite Neg (Negative) 04/06/20 13:34 Urine Bilirubin Neg (Negative) 04/06/20 13:34 Urine Urobilinogen < 2.0 mg/dL (<2.0) 04/06/20 13:34 Ur Leukocyte Esterase Mod (Negative) 04/06/20 13:34 Urine WBC (Auto) > 182.0 /HPF (0.0-6.0) H 04/06/20 13:34 Urine RBC (Auto) 49.0 /HPF (0.0-6.0) 04/06/20 13:34 U Epithel Cells (Auto) 6.0 /HPF (0-13.0) 04/06/20 13:34 Urine Bacteria (Auto) 2+ /HPF (Negative) 04/06/20 13:34 Urine WBC Clumps 3+ /HPF 04/06/20 13:34 Urine Mucus 3+ /HPF 04/06/20 13:34 Salicylates < 0.3 mg/dL (2.8-20.0) L 04/06/20 14:30 Acetaminophen 5.0 ug/mL (10.0-30.0) L 04/06/20 14:30 Plasma/Serum Alcohol < 0.01 % (0-0.07) 04/06/20 14:30 Coronavirus (PCR) Negative (Negative) 04/07/20 Unknown Hepatitis A IgM Ab Non-reactive (NonReactive) 04/07/20 16:38 Hep Bs Antigen Non-reactive (Negative) 04/07/20 16:38 Hep B Core IgM Ab Non-reactive (NonReactive) 04/07/20 16:38 Hepatitis C Antibody Reactive (NonReactive) A 04/07/20 16:38 Hepatitis C RNA Quant See scanned result 04/15/20 04:52 Blood Type O POSITIVE 04/06/20 14:30 Antibody Screen Negative 04/06/20 14:30 Microbiology: Microbiology 04/26/20 Unknown Tracheal Aspirate Sputum Culture - Final Bains/IV: Voiding Method Incontinent IV Catheter Type [Left Upper Peripheral IV arm] IV Catheter Type [Right Hand] Peripheral IV IV Catheter Type [Left Forearm INT / Saline Lock ] IV Catheter Type [Right VAS Cath Subclavian] IV Catheter Type [Left INT / Saline Lock Antecubital] IV Catheter Type [Right INT / Saline Lock Forearm] Active Medications - Current Medications Current Medications: Generic Name Dose Route Start Last Admin Trade Name Freq PRN Reason Stop Dose Admin Acetaminophen 650 mg 04/06/20 16:39 Tylenol PO Q6H PRN Pain, Mild (1-3) Albuterol 2.5 puff 04/22/20 12:13 Proair IH Q4HRT PRN Shortness Of Breath Lipase/Protease/Amylase 1 each 04/26/20 16:00 Jeremy Reyes 10,500 Unit FEEDTUBE PRN PRN For Clogged Feeding Tube Aripiprazole 5 mg 04/23/20 10:00 04/26/20 10:08 Aripiprazole PO Not Given DAILY NOEL Calcium Acetate 667 mg 04/22/20 17:00 04/26/20 17:52 Phoslo PO 667 mg TIDWM NOEL Administration Carvedilol 6.25 mg 04/13/20 22:00 04/26/20 10:08 Coreg PO Not Given BID NOEL Clonidine HCl 0.1 mg 04/25/20 08:00 04/25/20 11:10 Catapres-Tts Patch TD Not Given Tu [facility] Dextrose 50 ml 04/09/20 16:30 D50w (25gm) Syringe IV Q30MIN PRN Hypoglycemia Protocol Docusate Sodium 100 mg 04/22/20 12:17 Colace PO Q12H PRN Constipation Fentanyl 50 mcg 04/26/20 13:00 Sublimaze IV Q10MIN PRN ANALGESIA Heparin Sodium (Porcine) 5,000 unit 04/06/20 22:00 04/26/20 10:08 Heparin SUB-Q Not Given Q12HR [facility] Hydromorphone HCl 1 mg 04/18/20 14:22 04/25/20 03:35 Dilaudid IV 1 mg Q4H PRN Administration Pain , Severe (7-10) Hydrophilic Ointment 1 applic 04/06/20 13:34 Vaseline Lip Therapy TP Q2HR PRN Dry Lips Sodium Chloride 100 mls @ 999 mls/hr 04/07/20 17:00 Nacl 0.9% IV SPRING PRN Hypotension Dextrose/Sodium Chloride 1,000 mls @ 42 mls/hr 04/20/20 13:00 04/26/20 07:19 D5ns IV 42 mls/hr DIRECT NOEL Administration Cefepime HCl 1 gm in 100 mls @ 200 mls/hr 04/24/20 12:00 04/26/20 14:59 Cefepime/Ns 1 Gm/100 Ml IV 04/26/20 23:59 200 mls/hr Q24HR [facility] Administration Protocol Fentanyl Citrate 2,000 mcg in 100 mls @ 5.505 mls/hr 04/26/20 13:00 Fentanyl Drip Premix IV TITR [facility] Protocol 1 MCG/KG/HR Insulin Glargine 10 units 04/17/20 10:00 04/26/20 14:53 Lantus SUB-Q Not Given Q24HR [facility] Insulin Human Regular 0 unit 04/09/20 18:00 04/26/20 17:52 Humulin R SUB-Q 2 unit Q6H [facility] Administration Protocol Labetalol HCl 10 mg 04/08/20 17:17 04/24/20 22:37 Labetalol IV 10 mg Q4H PRN Administration Blood Pressure Lansoprazole 30 mg 04/26/20 14:00 04/26/20 14:59 Prevacid Solutab FEEDTUBE 30 mg QDAY [facility] Administration Losartan Potassium 25 mg 04/22/20 15:00 04/26/20 10:08 Cozaar PO Not Given QDAY [facility] Multi-Ingred Cream/Lotion/Oil/Oint 1 applic 04/06/20 13:34 Artificial Tears Ophth Oint OU Q4HR PRN Dry Eye(s) Multivitamins/Iron 1 each 04/23/20 10:00 04/26/20 10:08 Hemocyte Plus PO Not Given QDAY [facility] Ondansetron HCl 4 mg 04/18/20 07:45 04/22/20 15:14 Zofran IV 4 mg Q4H PRN Administration Nausea And Vomiting Simple Syrup 15 ml 04/26/20 16:00 Simple Syrup FEEDTUBE PRN PRN Hypoglycemia Simple Syrup 30 ml 04/26/20 16:00 Simple Syrup FEEDTUBE PRN PRN Hypoglycemia Sodium Bicarbonate 325 mg 04/26/20 16:00 Sodium Bicarbonate FEEDTUBE PRN PRN For Clogged Feeding Tube Sodium Chloride 10 ml 04/06/20 22:00 04/26/20 10:08 Sodium Chloride Flush Syringe 10 Ml IV Not Given BID NOEL Sodium Chloride 10 ml 04/06/20 16:32 04/25/20 03:36 Sodium Chloride Flush Syringe 10 Ml IV 10 ml PRN PRN Administration LINE FLUSH Nutrition/Malnutrition Assess - Dietary Evaluation Nutrition/Malnutrition Findings: Nutrition Notes Start: 04/07/20 08:19 Freq: Status: Active Protocol: Document 04/26/20 15:29 (Rec: 04/26/20 15:36 [email or web address]) Nutrition Notes Initial or Follow up Brief Note Current Diagnosis CKD (stage V CKD),Diabetes, Hypertension,Stroke Other Pertinent Diagnosis on HD, bilateral BKA, AMS Current Diet NPO Labs/Tests Na 135 BUN 27 Cr 3.3 BG 316 Pertinent Medications Reviewed Height 5 ft 5 in Weight 110.1 kg [employer] Body Weight (kg) 56.81 BMI 40.4 Weight Status Obese Subjective/Other Information MD consult for TF. Pt was reintubated after code blue. Pt did not receivce PEG. Percent of energy/protein needs met: 0%/0% Burn Absent Trauma Absent Current % PO Negligible Minimum of two criteria No physical signs of malnutrition #1 Nutrition Diagnosis Inadequate oral intake Diagnosis Progress(for reassessment Continues documentation) Is patient on ventilator? No Is Patient Ambulatory and/or Out of Bed No REE-([facility]-confined to bed) [phone] Kcal/Kg value to use for calculation 16 Approximate Energy Requirements Using 1762 kcal/Kg Calculation Used for Recommendations Kcal/kg Additional Notes Protein Needs: up to 142 g (up to 2.5 g/kg IBW) Fluid Needs: 1 mL/kcal Nutrition Intervention Change Diet Order: Start TF Nutrition Support: Nepro 1.8 at 45 mL/hr (goal rate) Flush 200 mL q4h Kcal 1,944 Protein (gm) 87 Fluid (mL) 785 Goal #1 Meet at least 75% of protein and energy needs via TF Anticipated Discharge Needs: Unable to determine at this time Follow-Up By: 04/28/20 Additional Comments FU for TF start/tolerance
--- NOTE | 2020-04-26 21:40 | Cat Scan Report ---
CT head/brain wo con INDICATION / CLINICAL INFORMATION: 49 years Female; AMS. TECHNIQUE: Routine CT head without contrast. All CT scans at this location are performed using CT dos e reduction for ALARA by means of automated exposure control. COMPARISON: The study is compared to the previous CT of 04/06/2020. FINDINGS: BRAIN / INTRACRANIAL CONTENTS: The motion degrades the image quality. However, there is mild cerebral white matter disease most consistent with microvascular angiopathy. There also appears be an old lac unar infarct along the posterior limb of the right internal capsule. The findings correlate with the previous CT. There is also mild cerebral atrophy with associated prominence of the ventricular system which again correlates with the prior study. There is no clear CT evidence of acute intracranial hemorrhage or si gnificant mass effect. ORBITS: No significant abnormality of visualized orbits. SINUSES / MASTOIDS: There is moderate mucosal thickening involving visualized posterior sphenoid sinu ses bilaterally. There is also a continued a mild scattered opacification of the inferior mastoid air cells. CRANIOCERVICAL JUNCTION: No significant abnormality. ADDITIONAL FINDINGS: None. IMPRESSION: 1. There is continued microvascular angiopathy as described without clear CT evidence of acute intrac ranial hemorrhage or significant interval change from 04/06/2020. Signer Name: Andrea Ingram MD Signed: 04/26/2020 9:35 PM Workstation Name: [id number]
--- NOTE | 2020-04-27 | Event Note ---
Date: 04/26/20 CODE BLUE was called Patient was in severe respiratory distress It was decided to intubate the patient ER physician Dr. Shea.V intubated the patient ACLS protocol was followed There was no need for epinephrine or sodium bicarbonate
[2020-04-27] MEDS: INSULIN REGULAR, HUMAN 100 UNIT/ML 3ML VIAL SUB-Q SCH ×5 (06:18→23:30)
--- NOTE | 2020-04-27 08:47 | Progress Note ---
Assessment and Plan Impression: * End stage renal disease * Sepsis * Positive blood cx - likely contaminant --Blood cx: staph epi (05/29 bottles - Apr 06) * Acute hypoxic respiratory failure * Acute encephalopathy * Acute ischemic stroke * UTI * Hx of COVID 19 --SARS Cov2 PCR negative Apr 07 * Metabolic acidosis * Pneumonia Plan: * Shall plan for hemodialysis for tomorrow if patient is hemodynamically stable * UF as tolerated * Abx per ID, input reviewed * neurology notes reviewed * Dose medications for renal function * GI notes appreciated. * WBC count noted to be elevated. Patient currently also has a PermCath in place. Shall check blood cultures as well Subjective Date of service: 04/27/20 Principal diagnosis: Ac on ch hypoxemic and hypercapnic resp failure; PUI COVID- 19 infxn; AMS Interval history: Yesterday's events noted. Patient became hypotensive during dialysis yesterday. She was given fluid back and there was no net ultrafiltration. Postdialysis however patient started having agonal breathing. She was intubated and is now in the intensive care unit. Unresponsive. Currently on 50% FiO2. Oxygen saturation is 100% Objective - Vital Signs Vital signs: Vital Signs - 12hr 04/26/20 04/26/20 04/26/20 20:45 21:11 21:16 Temperature Pulse Rate 120 H 108 H 106 H Pulse Rate [ From Monitor] Respiratory 20 15 18 Rate Blood Pressure 105/48 105/48 115/49 O2 Sat by Pulse 100 86 100 Oximetry 04/26/20 04/26/20 04/26/20 21:30 21:46 22:00 Temperature Pulse Rate 108 H 109 H 110 H Pulse Rate [ 112 H From Monitor] Respiratory 18 21 18 Rate Blood Pressure 115/55 114/61 122/56 O2 Sat by Pulse 100 Oximetry 04/26/20 04/26/20 04/26/20 22:02 22:16 22:30 Temperature Pulse Rate 109 H 109 H 111 H Pulse Rate [ From Monitor] Respiratory 19 18 Rate Blood Pressure 122/56 102/40 112/55 O2 Sat by Pulse 100 Oximetry 04/26/20 04/26/20 04/26/20 22:45 23:00 23:15 Temperature Pulse Rate 106 H 106 H 101 H Pulse Rate [ From Monitor] Respiratory 19 20 18 Rate Blood Pressure 98/36 91/46 86/45 O2 Sat by Pulse 100 100 96 Oximetry 04/26/20 04/26/20 04/26/20 23:16 23:30 23:41 Temperature Pulse Rate 101 H 95 H 99 H Pulse Rate [ From Monitor] Respiratory 18 18 Rate Blood Pressure 86/45 91/28 91/28 O2 Sat by Pulse 94 100 Oximetry 04/26/20 04/27/20 04/27/20 23:46 00:00 00:15 Temperature Pulse Rate 98 H 94 H 95 H Pulse Rate [ From Monitor] Respiratory 18 18 18 Rate Blood Pressure 168/133 85/29 104/44 O2 Sat by Pulse 79 L 99 99 Oximetry 04/27/20 04/27/20 04/27/20 00:30 00:45 01:00 Temperature Pulse Rate 106 H 101 H 102 H Pulse Rate [ 97 H From Monitor] Respiratory 20 21 20 Rate Blood Pressure 110/53 108/58 132/63 O2 Sat by Pulse 97 100 100 Oximetry 04/27/20 04/27/20 04/27/20 01:15 01:30 01:45 Temperature Pulse Rate 101 H 102 H 103 H Pulse Rate [ From Monitor] Respiratory 21 20 22 Rate Blood Pressure 124/64 148/61 132/53 O2 Sat by Pulse 100 100 100 Oximetry 04/27/20 04/27/20 04/27/20 02:00 02:15 02:30 Temperature Pulse Rate 105 H 108 H 110 H Pulse Rate [ From Monitor] Respiratory 22 19 23 Rate Blood Pressure 142/46 136/68 136/68 O2 Sat by Pulse 100 100 97 Oximetry 04/27/20 04/27/20 04/27/20 02:45 03:00 03:15 Temperature Pulse Rate 107 H 106 H 106 H Pulse Rate [ From Monitor] Respiratory 16 19 18 Rate Blood Pressure 128/52 140/59 137/62 O2 Sat by Pulse 98 98 96 Oximetry 04/27/20 04/27/20 04/27/20 03:30 03:45 04:00 Temperature 100.7 F H Pulse Rate 109 H 112 H 110 H Pulse Rate [ From Monitor] Respiratory 18 22 20 Rate Blood Pressure 137/62 155/63 155/63 O2 Sat by Pulse 100 100 100 Oximetry 04/27/20 04/27/20 04/27/20 04:01 04:05 04:15 Temperature Pulse Rate 110 H 110 H Pulse Rate [ 110 H From Monitor] Respiratory 20 19 Rate Blood Pressure 155/63 136/48 O2 Sat by Pulse 100 99 100 Oximetry 04/27/20 04/27/20 04/27/20 04:30 04:45 05:00 Temperature Pulse Rate 114 H 110 H 113 H Pulse Rate [ From Monitor] Respiratory 19 19 19 Rate Blood Pressure 155/63 125/61 135/52 O2 Sat by Pulse 99 98 97 Oximetry 04/27/20 04/27/20 04/27/20 05:15 05:30 05:45 Temperature Pulse Rate 112 H 116 H 109 H Pulse Rate [ From Monitor] Respiratory 19 21 25 H Rate Blood Pressure 138/66 121/57 144/71 O2 Sat by Pulse 97 98 97 Oximetry 04/27/20 04/27/20 04/27/20 06:00 06:15 06:30 Temperature Pulse Rate 107 H 105 H 104 H Pulse Rate [ From Monitor] Respiratory 20 18 18 Rate Blood Pressure 144/71 127/43 127/43 O2 Sat by Pulse 99 100 100 Oximetry 04/27/20 04/27/20 04/27/20 06:45 07:00 07:15 Temperature Pulse Rate 104 H 105 H 105 H Pulse Rate [ From Monitor] Respiratory 18 18 18 Rate Blood Pressure 114/45 112/62 118/56 O2 Sat by Pulse 100 100 100 Oximetry 04/27/20 04/27/20 04/27/20 07:30 07:45 08:00 Temperature 100.3 F H Pulse Rate 108 H 105 H 104 H Pulse Rate [ From Monitor] Respiratory 20 19 19 Rate Blood Pressure 108/49 118/55 118/55 O2 Sat by Pulse 100 100 100 Oximetry 04/27/20 08:23 Temperature Pulse Rate 107 H Pulse Rate [ From Monitor] Respiratory Rate Blood Pressure 100/52 O2 Sat by Pulse 100 Oximetry - General Appearance General appearance: well-developed, well-nourished, appears stated age, intubated EENT: PERRL, mucous membranes moist Neck: no JVD, no thyromegaly, no carotid bruit, supple, other (Right IJ PermCath in place) Respiratory: Present: Clear to Ascultation Cardiology: regular, normal heart rate, S1S2, no murmurs Gastrointestinal: normal, normoactive bowel sounds Integumentary: other (Bilateral below-knee amputation) - Lab 04/26/20 14:26 04/26/20 14:26 Most recent lab results ABG pH 7.461 (7.320-7.450) H 04/27/20 04:46 ABG pCO2 54.0 mm Hg 04/11/20 03:44 ABG pO2 73.4 mm Hg (80.0-90.0) L 04/11/20 03:44 ABG HCO3 26.7 mmol/L (20.0-26.0) H 04/11/20 03:44 ABG O2 Saturation 95.0 % (95.0-99.0) 04/11/20 03:44 Calcium 9.3 mg/dL (8.4-10.2) 04/26/20 14:26 Phosphorus 3.00 mg/dL (2.5-4.5) 04/17/20 05:44 Magnesium 2.00 mg/dL (1.7-2.3) 04/17/20 05:44 Medications & Allergies - Medications Allergies/Adverse Reactions: Allergies carrot Allergy (Verified 07/28/19 12:30) Hives erythromycin base Allergy (Verified 07/30/19 11:26) Hives latex Allergy (Verified 02/18/19 13:20) Rash peas Allergy (Verified 12/20/19 12:37) Hives vancomycin Allergy (Verified 12/31/19 15:46) Hives Home Medications: Home Medications Medication Instructions Recorded Confirmed Last Taken Type Aripiprazole 5 mg PO DAILY 02/18/19 04/06/20 02/17/19 History Benadryl CAP 25 mg PO Q8H PRN 02/18/19 04/06/20 02/17/19 History Calcium Acetate 667 mg PO TIDWM 02/18/19 04/06/20 02/17/19 History Carvedilol 6.25 mg PO Q12H 02/18/19 04/06/20 02/17/19 History Colace CAP 100 mg PO Q12H PRN 02/18/19 04/06/20 02/17/19 History Esomeprazole Magnesium 40 mg PO QDAC 02/18/19 04/06/20 02/17/19 History HumaLOG 10 units SUB-Q TIDWM 02/18/19 04/06/20 02/17/19 History Insulin Detemir (Nf) [Levemir See Protocol SQ QHS 02/18/19 04/06/20 02/17/19 History Flextouch (Nf)] Losartan Potassium 50 mg PO DAILY 02/18/19 04/06/20 02/17/19 History Lyrica 75 mg PO Q12H 02/18/19 04/06/20 02/17/19 History Melatonin 6 mg PO QHS 02/18/19 04/06/20 02/17/19 History Senna 17.2 mg PO QHS PRN 02/18/19 04/06/20 02/17/19 History Venlafaxine HCl [Venlafaxine HCl 150 mg PO QDAC 02/18/19 04/06/20 02/17/19 History ER] Vitamin C 250 mg PO DAILY 02/18/19 04/06/20 02/17/19 History ZyrTEC 10mg cap 10 mg PO DAILY 02/18/19 04/06/20 02/17/19 History Calcium Acetate [Phoslo] 667 mg PO TIDWM capsule 12/22/19 04/06/20 Unknown Rx Fe Fumarate/FA/Mv, Min Comb#15 1 each PO QDAY capsule 12/22/19 04/06/20 Unknown Rx [Hemocyte Plus] Albuterol Mdi (or & Nicu Only) 2.5 puff IH Q4HRT PRN inha 01/12/20 04/06/20 Unknown Rx [ProAir HFA Inhaler] dexAMETHasone [Decadron] 6 mg PO Q12HR #10 tablet 01/12/20 04/06/20 Unknown Rx oxyCODONE 5 mg PO Q6H PRN #10 01/12/20 04/06/20 Unknown Rx Active Medications: Generic Name Dose Route Start Last Admin Trade Name Freq PRN Reason Stop Dose Admin Acetaminophen 650 mg 04/06/20 16:39 Tylenol PO Q6H PRN Pain, Mild (1-3) Albuterol 2.5 mg 04/27/20 09:00 Proventil IH Q4HRT PRN Shortness Of Breath Lipase/Protease/Amylase 1 each 04/26/20 16:00 Jeremy Reyes 10,500 Unit FEEDTUBE PRN PRN For Clogged Feeding Tube Aripiprazole 5 mg 04/23/20 10:00 04/26/20 10:08 Aripiprazole PO Not Given DAILY NOEL Calcium Acetate 667 mg 04/22/20 17:00 04/26/20 17:52 Phoslo PO 667 mg TIDWM NOEL Administration Carvedilol 6.25 mg 04/13/20 22:00 04/26/20 22:02 Coreg PO 6.25 mg BID NOEL Administration Clonidine HCl 0.1 mg 04/25/20 08:00 04/25/20 11:10 Catapres-Tts Patch TD Not Given [facility] [place] 50 ml 04/09/20 16:30 D50w (25gm) Syringe IV Q30MIN PRN Hypoglycemia Protocol Docusate Sodium 100 mg 04/22/20 12:17 Colace PO Q12H PRN Constipation Fentanyl 50 mcg 04/26/20 13:00 Sublimaze IV Q10MIN PRN ANALGESIA Heparin Sodium (Porcine) 5,000 unit 04/06/20 22:00 04/26/20 22:02 Heparin SUB-Q 5,000 unit Q12HR [facility] Administration Hydromorphone HCl 1 mg 04/18/20 14:22 04/25/20 03:35 Dilaudid IV 1 mg Q4H PRN Administration Pain , Severe (7-10) Hydrophilic Ointment 1 applic 04/06/20 13:34 Vaseline Lip Therapy TP Q2HR PRN Dry Lips Sodium Chloride 100 mls @ 999 mls/hr 04/07/20 17:00 Nacl 0.9% IV SPRING PRN Hypotension Dextrose/Sodium Chloride 1,000 mls @ 42 mls/hr 04/20/20 13:00 04/26/20 07:19 D5ns IV 42 mls/hr DIRECT NOEL Administration Fentanyl Citrate 2,000 mcg in 100 mls @ 5.505 mls/hr 04/26/20 13:00 Fentanyl Drip Premix IV TITR [facility] Protocol 1 MCG/KG/HR Insulin Glargine 10 units 04/17/20 10:00 04/26/20 14:53 Lantus SUB-Q Not Given Q24HR [facility] Insulin Human Regular 0 unit 04/09/20 18:00 04/27/20 06:18 Humulin R SUB-Q 3 unit Q6H [facility] Administration Protocol Labetalol HCl 10 mg 04/08/20 17:17 04/24/20 22:37 Labetalol IV 10 mg Q4H PRN Administration Blood Pressure Lansoprazole 30 mg 04/26/20 14:00 04/26/20 14:59 Prevacid Solutab FEEDTUBE 30 mg QDAY NOEL Administration Losartan Potassium 25 mg 04/22/20 15:00 04/26/20 10:08 Cozaar PO Not Given QDAY NOEL Multi-Ingred Cream/Lotion/Oil/Oint 1 applic 04/06/20 13:34 Artificial Tears Ophth Oint OU Q4HR PRN Dry Eye(s) Multivitamins/Iron 1 each 04/23/20 10:00 04/26/20 10:08 Hemocyte Plus PO Not Given QDAY [facility] Ondansetron HCl 4 mg 04/18/20 07:45 04/22/20 15:14 Zofran IV 4 mg Q4H PRN Administration Nausea And Vomiting Simple Syrup 15 ml 04/26/20 16:00 Simple Syrup FEEDTUBE PRN PRN Hypoglycemia Simple Syrup 30 ml 04/26/20 16:00 Simple Syrup FEEDTUBE PRN PRN Hypoglycemia Sodium Bicarbonate 325 mg 04/26/20 16:00 Sodium Bicarbonate FEEDTUBE PRN PRN For Clogged Feeding Tube Sodium Chloride 10 ml 04/06/20 22:00 04/26/20 22:03 Sodium Chloride Flush Syringe 10 Ml IV 10 ml BID NOEL Administration Sodium Chloride 10 ml 04/06/20 16:32 04/25/20 03:36 Sodium Chloride Flush Syringe 10 Ml IV 10 ml PRN PRN Administration LINE FLUSH
[2020-04-27] MEDS ORDERED: ALBUTEROL 2.5 MG/3 ML NEBU IH PRN (09:00)
[2020-04-27] MEDS: carvediloL 6.25 MG TAB PO SCH ×2 (10:14→22:02)
[2020-04-27] MEDS: LANSOPRAZOLE 30 MG SOLUTAB FEEDTUBE SCH (10:14)
[2020-04-27] MEDS: INSULIN GLARGINE 100 UNITS/ML SUB-Q SCH (10:15)
[2020-04-27] MEDS: LOSARTAN 25 MG TAB PO SCH (10:15)
[2020-04-27] MEDS: HEPARIN 5,000 UNIT/1 ML VIAL SUB-Q SCH ×2 (10:15→22:01)
[2020-04-27] MEDS: CALCIUM ACETATE 667 MG CAP PO SCH ×3 (10:15→18:24)
[2020-04-27] MEDS ORDERED: ROCURONIUM 50 MG/5 ML INJ IV ONE (10:58)
[2020-04-27] MEDS ORDERED: ETOMIDATE 20 MG/10 ML INJ IV ONE (10:58)
[2020-04-27] MEDS: MULTIVITAMINS 5 ML ORAL LIQUID PO SCH (13:00)
--- NOTE | 2020-04-27 13:45 | Progress Note ---
Assessment and Plan Acute on chronic hypoxemic and hypercapnic respiratory failure. Coronavirus-19 infection. Acute encephalopathy. Bibasilar atelectasis. End-stage renal disease, on dialysis. Morbid obesity. History of a cerebrovascular accident. Diabetes type 2. History of chronic obstructive pulmonary disease. History of anemia. - repeat lactate level and address - prn analgesia per pain score - begin Midodrine (10 mg po tid) re: hypotension - 250 mls IVNS bolus - prn CXR's & ABG - continue care as below otherwise; - s/p AB's per ID rec's (Merrem) - wean supplemental oxygen for target O2 sat's > 90% acutely - VAP bundle addressed - continue lung protective strategies - continue bronchodilators with pulmonary hygiene per RT - wean per pulmonary driven protocols otherwise - continue accuchecks with glycemic control per SSI (While critically ill target blood glucose of 140-180 mg/dL; avoid hypoglycemia) - continue fentanyl for sedation / analgesia - sedation prn for target RASS 0 to -1 - avoid nephrotoxins, renally dose all medications - continue to avoid benzodiazepine's, reduce the possibility of delirium - prn analgesia per CPOT score - Maintenance of sleep-wake cycle, avoid delirium - continue enteral nutritional support at goal rate as tolerated - G.I. & VTE prophylaxis - PT/OT/ROM exercises - continue mobility protocols for pressure ulcer prophylaxis - Monitor hemodynamics closely - continue other care per attending / other consultants - discharge planning ongoing concurrently .... Re-evaluate in am & prn CONDITION: CRITICAL PROGNOSIS: GUARDED CODE STATUS: FULL CODE The high probability of a clinically significant, sudden or life-threatening deterioration of the [respiratory, cardiovascular, renal & neurologic] system(s) required my full and direct attention, intervention and personal management. The aggregate critical care time was [32] minutes without overlap. Time includes spent on; [x] Data Review and interpretation [x] Patient assessment and monitoring of vital signs [x] Documentation [x] Medication orders and management Subjective Date of service: 04/27/20 Principal diagnosis: Ac on ch hypoxemic and hypercapnic resp failure; PUI COVID- 19 infxn; AMS Interval history: Patient is seen today for: Acute on chronic hypoxemic and hypercapnic resp failure; PUI Coronavirus-19 infection; Acute encephalopathy; ESRD; Morbid obesity; DM II; AE-COPD Seen and examined at bedside; 24hour events reviewed; nursing and respiratory care staff consulted; no adverse overnight events reported to me; resting peacefully in bed; remains on MVS; more alert today; nods gead "yes" to pain question; BP's still running on low side with MAP of 61 mmHg at time of my examination; No N/V/F/C Objective Vital Signs - 12hr 04/27/20 04/27/20 04/27/20 02:00 02:15 02:30 Temperature Pulse Rate 105 H 108 H 110 H Pulse Rate [ From Monitor] Respiratory 22 19 23 Rate Blood Pressure 142/46 136/68 136/68 O2 Sat by Pulse 100 100 97 Oximetry 04/27/20 04/27/20 04/27/20 02:45 03:00 03:15 Temperature Pulse Rate 107 H 106 H 106 H Pulse Rate [ From Monitor] Respiratory 16 19 18 Rate Blood Pressure 128/52 140/59 137/62 O2 Sat by Pulse 98 98 96 Oximetry 04/27/20 04/27/20 04/27/20 03:30 03:45 04:00 Temperature 100.7 F H Pulse Rate 109 H 112 H 110 H Pulse Rate [ From Monitor] Respiratory 18 22 20 Rate Blood Pressure 137/62 155/63 155/63 O2 Sat by Pulse 100 100 100 Oximetry 04/27/20 04/27/20 04/27/20 04:01 04:05 04:15 Temperature Pulse Rate 110 H 110 H Pulse Rate [ 110 H From Monitor] Respiratory 20 19 Rate Blood Pressure 155/63 136/48 O2 Sat by Pulse 100 99 100 Oximetry 04/27/20 04/27/20 04/27/20 04:30 04:45 05:00 Temperature Pulse Rate 114 H 110 H 113 H Pulse Rate [ From Monitor] Respiratory 19 19 19 Rate Blood Pressure 155/63 125/61 135/52 O2 Sat by Pulse 99 98 97 Oximetry 04/27/20 04/27/20 04/27/20 05:15 05:30 05:45 Temperature Pulse Rate 112 H 116 H 109 H Pulse Rate [ From Monitor] Respiratory 19 21 25 H Rate Blood Pressure 138/66 121/57 144/71 O2 Sat by Pulse 97 98 97 Oximetry 04/27/20 04/27/20 04/27/20 06:00 06:15 06:30 Temperature Pulse Rate 107 H 105 H 104 H Pulse Rate [ From Monitor] Respiratory 20 18 18 Rate Blood Pressure 144/71 127/43 127/43 O2 Sat by Pulse 99 100 100 Oximetry 04/27/20 04/27/20 04/27/20 06:45 07:00 07:15 Temperature Pulse Rate 104 H 105 H 105 H Pulse Rate [ From Monitor] Respiratory 18 18 18 Rate Blood Pressure 114/45 112/62 118/56 O2 Sat by Pulse 100 100 100 Oximetry 04/27/20 04/27/20 04/27/20 07:30 07:45 08:00 Temperature 100.3 F H Pulse Rate 108 H 105 H 104 H Pulse Rate [ From Monitor] Respiratory 20 19 19 Rate Blood Pressure 108/49 118/55 118/55 O2 Sat by Pulse 100 100 100 Oximetry 04/27/20 04/27/20 04/27/20 08:15 08:23 08:30 Temperature Pulse Rate 110 H 107 H 107 H Pulse Rate [ From Monitor] Respiratory 22 18 Rate Blood Pressure 100/52 100/52 111/45 O2 Sat by Pulse 100 100 100 Oximetry 04/27/20 04/27/20 04/27/20 08:45 09:00 09:15 Temperature Pulse Rate 100 H 101 H 100 H Pulse Rate [ From Monitor] Respiratory 18 18 18 Rate Blood Pressure 113/43 113/43 101/54 O2 Sat by Pulse 100 100 100 Oximetry 04/27/20 04/27/20 04/27/20 09:30 09:45 10:00 Temperature Pulse Rate 100 H 101 H 101 H Pulse Rate [ From Monitor] Respiratory 18 18 18 Rate Blood Pressure 120/48 114/48 114/48 O2 Sat by Pulse 100 100 100 Oximetry 04/27/20 04/27/20 04/27/20 10:14 10:15 10:30 Temperature Pulse Rate 98 H 100 H 100 H Pulse Rate [ From Monitor] Respiratory 18 18 Rate Blood Pressure 108/39 113/39 113/39 O2 Sat by Pulse 100 100 Oximetry 04/27/20 04/27/20 04/27/20 10:45 11:00 11:15 Temperature Pulse Rate 101 H 97 H 96 H Pulse Rate [ From Monitor] Respiratory 18 20 18 Rate Blood Pressure 116/41 116/41 93/46 O2 Sat by Pulse 100 100 100 Oximetry 04/27/20 04/27/20 12:00 12:13 Temperature 99.1 F Pulse Rate 90 Pulse Rate [ From Monitor] Respiratory Rate Blood Pressure 96/44 O2 Sat by Pulse 100 Oximetry Constitutional: no acute distress, other (middle aged obese female with normal respiratory effort at rest on MVS) Eyes: non-icteric ENT: oropharynx moist, other (ETT 23 cm PARRISH) Neck: supple, no lymphadenopathy, no JVD Effort: normal Ascultation: Bilateral: diminished breath sounds, rhonchi (scant) Percussion: Bilateral: not dull Cardiovascular: regular rate and rhythm, other (S1,S2) Gastrointestinal: normoactive bowel sounds, soft, non-tender, non-distended (p rotuberant) Integumentary: rash Extremities: no cyanosis, no edema, no ischemia or petechiae, other (bilateral BKAs ) Neurologic: non-focal exam (grossly), pupils equal and round, CN II-XII normal, motor strength normal and, unable to assess Psychiatric: mood appropriate, affect normal CBC and BMP: 04/26/20 14:26 04/26/20 14:26 ABG, PT/INR, D-dimer: ABG ABG pH 7.461 (7.320-7.450) H 04/27/20 04:46 POC ABG pCO2 33.2 mmHg (32.0-48.0) 04/27/20 04:46 ABG pCO2 54.0 mm Hg 04/11/20 03:44 POC ABG pO2 68.8 mmHg (83-108) L 04/27/20 04:46 ABG pO2 73.4 mm Hg (80.0-90.0) L 04/11/20 03:44 POC ABG HCO3 23.1 04/27/20 04:46 ABG O2 Saturation 95.0 % (95.0-99.0) 04/11/20 03:44 PT/INR, D-dimer PT 13.4 Sec. (12.2-14.9) 04/25/20 14:19 INR 1.04 (0.87-1.13) 04/25/20 14:19 D-Dimer 1144.77 ng/mlDDU (0-234) H 04/18/20 06:48 Abnormal lab findings: Abnormal Labs 04/06/20 04/06/20 04/06/20 13:34 14:30 14:30 WBC 19.2 H RBC Hgb Hct RDW 17.8 H Plt Count Seg Neuts % (Manual) 90.0 H Lymphocytes % (Manual) 4.0 L Monocytes % (Manual) Basophils % (Manual) Seg Neutrophils # Man 17.3 H Lymphocytes # (Manual) 0.8 L Monocytes # (Manual) Eosinophils # (Manual) Basophils # (Manual) D-Dimer ABG pH POC ABG pCO2 POC ABG pO2 ABG pO2 ABG HCO3 ABG Base Excess ABG Hemoglobin ABG Oxyhemoglobin ABG Sodium ABG Chloride ABG Glucose Oxyhemoglobin Sodium Potassium 5.2 H Chloride Carbon Dioxide 17 L BUN 53 H Creatinine 7.8 H Glucose 144 H POC Glucose Lactic Acid Calcium Magnesium Ferritin Alkaline Phosphatase 738 H Lactate Dehydrogenase Total Creatine Kinase 23 L Troponin T 0.224 H* C-Reactive Protein Albumin 3.1 L Triglycerides 342 H Cholesterol 223 H HDL Cholesterol 35 L Arterial Blood Glucose Arterial Blood Ionized Calcium Urine WBC (Auto) > 182.0 H Salicylates Acetaminophen Hepatitis C Antibody 04/06/20 04/06/20 04/06/20 14:30 14:30 14:30 WBC RBC Hgb Hct RDW Plt Count Seg Neuts % (Manual) Lymphocytes % (Manual) Monocytes % (Manual) Basophils % (Manual) Seg Neutrophils # Man Lymphocytes # (Manual) Monocytes # (Manual) Eosinophils # (Manual) Basophils # (Manual) D-Dimer ABG pH POC ABG pCO2 POC ABG pO2 ABG pO2 ABG HCO3 ABG Base Excess ABG Hemoglobin ABG Oxyhemoglobin ABG Sodium ABG Chloride ABG Glucose Oxyhemoglobin Sodium Potassium Chloride Carbon Dioxide BUN Creatinine Glucose POC Glucose Lactic Acid Calcium Magnesium 2.50 H Ferritin Alkaline Phosphatase Lactate Dehydrogenase Total Creatine Kinase 24 L Troponin T C-Reactive Protein Albumin Triglycerides Cholesterol HDL Cholesterol Arterial Blood Glucose Arterial Blood Ionized Calcium Urine WBC (Auto) Salicylates < 0.3 L Acetaminophen 5.0 L Hepatitis C Antibody 04/06/20 04/06/20 04/07/20 14:39 20:00 00:48 WBC RBC Hgb Hct RDW Plt Count Seg Neuts % (Manual) Lymphocytes % (Manual) Monocytes % (Manual) Basophils % (Manual) Seg Neutrophils # Man Lymphocytes # (Manual) Monocytes # (Manual) Eosinophils # (Manual) Basophils # (Manual) D-Dimer ABG pH 7.281 L 7.306 L POC ABG pCO2 POC ABG pO2 78.0 L ABG pO2 133.8 H ABG HCO3 18.3 L ABG Base Excess -7.8 L ABG Hemoglobin 10.8 L 10.8 L ABG Oxyhemoglobin ABG Sodium ABG Chloride 108.0 H ABG Glucose Oxyhemoglobin Sodium Potassium Chloride Carbon Dioxide BUN Creatinine Glucose POC Glucose 69 L Lactic Acid Calcium Magnesium Ferritin Alkaline Phosphatase Lactate Dehydrogenase Total Creatine Kinase Troponin T C-Reactive Protein Albumin Triglycerides Cholesterol HDL Cholesterol Arterial Blood Glucose Arterial Blood Ionized Calcium Urine WBC (Auto) Salicylates Acetaminophen Hepatitis C Antibody 04/07/20 04/07/20 04/07/20 09:34 09:34 09:34 WBC RBC Hgb Hct RDW Plt Count Seg Neuts % (Manual) Lymphocytes % (Manual) Monocytes % (Manual) Basophils % (Manual) Seg Neutrophils # Man Lymphocytes # (Manual) Monocytes # (Manual) Eosinophils # (Manual) Basophils # (Manual) D-Dimer 1063.66 H ABG pH POC ABG pCO2 POC ABG pO2 ABG pO2 ABG HCO3 ABG Base Excess ABG Hemoglobin ABG Oxyhemoglobin ABG Sodium ABG Chloride ABG Glucose Oxyhemoglobin Sodium Potassium Chloride Carbon Dioxide BUN Creatinine Glucose POC Glucose Lactic Acid Calcium Magnesium Ferritin 743.0 H Alkaline Phosphatase Lactate Dehydrogenase 195 H Total Creatine Kinase Troponin T C-Reactive Protein 7.50 H Albumin Triglycerides Cholesterol HDL Cholesterol Arterial Blood Glucose Arterial Blood Ionized Calcium Urine WBC (Auto) Salicylates Acetaminophen Hepatitis C Antibody 04/07/20 04/07/20 04/07/20 10:01 16:38 23:51 WBC RBC Hgb Hct RDW Plt Count Seg Neuts % (Manual) Lymphocytes % (Manual) Monocytes % (Manual) Basophils % (Manual) Seg Neutrophils # Man Lymphocytes # (Manual) Monocytes # (Manual) Eosinophils # (Manual) Basophils # (Manual) D-Dimer ABG pH POC ABG pCO2 POC ABG pO2 79.8 L ABG pO2 ABG HCO3 ABG Base Excess ABG Hemoglobin 10.3 L ABG Oxyhemoglobin ABG Sodium ABG Chloride 109.0 H ABG Glucose Oxyhemoglobin Sodium Potassium Chloride Carbon Dioxide BUN Creatinine Glucose POC Glucose 117 H Lactic Acid Calcium Magnesium Ferritin Alkaline Phosphatase Lactate Dehydrogenase Total Creatine Kinase Troponin T C-Reactive Protein Albumin Triglycerides Cholesterol HDL Cholesterol Arterial Blood Glucose Arterial Blood Ionized Calcium 4.5 L Urine WBC (Auto) Salicylates Acetaminophen Hepatitis C Antibody Reactive A 04/08/20 04/08/20 04/08/20 04:58 12:48 17:03 WBC RBC Hgb Hct RDW Plt Count Seg Neuts % (Manual) Lymphocytes % (Manual) Monocytes % (Manual) Basophils % (Manual) Seg Neutrophils # Man Lymphocytes # (Manual) Monocytes # (Manual) Eosinophils # (Manual) Basophils # (Manual) D-Dimer ABG pH POC ABG pCO2 POC ABG pO2 ABG pO2 ABG HCO3 ABG Base Excess ABG Hemoglobin ABG Oxyhemoglobin ABG Sodium ABG Chloride ABG Glucose Oxyhemoglobin Sodium Potassium Chloride Carbon Dioxide BUN Creatinine Glucose POC Glucose 129 H 155 H 201 H Lactic Acid Calcium Magnesium Ferritin Alkaline Phosphatase Lactate Dehydrogenase Total Creatine Kinase Troponin T C-Reactive Protein Albumin Triglycerides Cholesterol HDL Cholesterol Arterial Blood Glucose Arterial Blood Ionized Calcium Urine WBC (Auto) Salicylates Acetaminophen Hepatitis C Antibody 04/08/20 04/08/20 04/09/20 23:49 Unknown 05:31 WBC RBC Hgb Hct RDW Plt Count Seg Neuts % (Manual) Lymphocytes % (Manual) Monocytes % (Manual) Basophils % (Manual) Seg Neutrophils # Man Lymphocytes # (Manual) Monocytes # (Manual) Eosinophils # (Manual) Basophils # (Manual) D-Dimer ABG pH 7.349 L POC ABG pCO2 POC ABG pO2 ABG pO2 117.3 H ABG HCO3 ABG Base Excess ABG Hemoglobin 7.4 L ABG Oxyhemoglobin ABG Sodium ABG Chloride ABG Glucose Oxyhemoglobin Sodium Potassium Chloride Carbon Dioxide BUN Creatinine Glucose POC Glucose 178 H 248 H Lactic Acid Calcium Magnesium Ferritin Alkaline Phosphatase Lactate Dehydrogenase Total Creatine Kinase Troponin T C-Reactive Protein Albumin Triglycerides Cholesterol HDL Cholesterol Arterial Blood Glucose Arterial Blood Ionized Calcium Urine WBC (Auto) Salicylates Acetaminophen Hepatitis C Antibody 04/09/20 04/09/20 04/09/20 11:39 17:35 Unknown WBC RBC Hgb Hct RDW Plt Count Seg Neuts % (Manual) Lymphocytes % (Manual) Monocytes % (Manual) Basophils % (Manual) Seg Neutrophils # Man Lymphocytes # (Manual) Monocytes # (Manual) Eosinophils # (Manual) Basophils # (Manual) D-Dimer ABG pH POC ABG pCO2 51.6 H POC ABG pO2 ABG pO2 ABG HCO3 ABG Base Excess ABG Hemoglobin 11.4 L ABG Oxyhemoglobin ABG Sodium 130.1 L ABG Chloride ABG Glucose 249 H Oxyhemoglobin Sodium Potassium Chloride Carbon Dioxide BUN Creatinine Glucose POC Glucose 319 H 254 H Lactic Acid Calcium Magnesium Ferritin Alkaline Phosphatase Lactate Dehydrogenase Total Creatine Kinase Troponin T C-Reactive Protein Albumin Triglycerides Cholesterol HDL Cholesterol Arterial Blood Glucose 249 H Arterial Blood Ionized Calcium 4.1 L Urine WBC (Auto) Salicylates Acetaminophen Hepatitis C Antibody 04/10/20 04/10/20 04/10/20 00:00 03:15 05:49 WBC RBC Hgb Hct RDW Plt Count Seg Neuts % (Manual) Lymphocytes % (Manual) Monocytes % (Manual) Basophils % (Manual) Seg Neutrophils # Man Lymphocytes # (Manual) Monocytes # (Manual) Eosinophils # (Manual) Basophils # (Manual) D-Dimer ABG pH POC ABG pCO2 48.2 H POC ABG pO2 ABG pO2 ABG HCO3 ABG Base Excess ABG Hemoglobin 9.9 L ABG Oxyhemoglobin ABG Sodium 135.4 L ABG Chloride ABG Glucose 215 H Oxyhemoglobin Sodium Potassium Chloride Carbon Dioxide BUN Creatinine Glucose POC Glucose 194 H 221 H Lactic Acid Calcium Magnesium Ferritin Alkaline Phosphatase Lactate Dehydrogenase Total Creatine Kinase Troponin T C-Reactive Protein Albumin Triglycerides Cholesterol HDL Cholesterol Arterial Blood Glucose 215 H Arterial Blood Ionized Calcium 4.5 L Urine WBC (Auto) Salicylates Acetaminophen Hepatitis C Antibody 04/10/20 04/10/20 04/10/20 08:18 08:18 12:22 WBC 28.9 H RBC 3.38 L Hgb 9.5 L Hct 30.1 L RDW 16.9 H Plt Count Seg Neuts % (Manual) 87.0 H Lymphocytes % (Manual) 9.0 L Monocytes % (Manual) Basophils % (Manual) 2.0 H Seg Neutrophils # Man 25.1 H Lymphocytes # (Manual) Monocytes # (Manual) Eosinophils # (Manual) Basophils # (Manual) 0.6 H D-Dimer ABG pH POC ABG pCO2 POC ABG pO2 ABG pO2 ABG HCO3 ABG Base Excess ABG Hemoglobin ABG Oxyhemoglobin ABG Sodium ABG Chloride ABG Glucose Oxyhemoglobin Sodium 134 L Potassium 3.5 L D Chloride 94.9 L Carbon Dioxide BUN 38 H Creatinine 5.5 H Glucose 230 H POC Glucose 218 H Lactic Acid Calcium Magnesium Ferritin Alkaline Phosphatase Lactate Dehydrogenase Total Creatine Kinase Troponin T C-Reactive Protein Albumin Triglycerides Cholesterol HDL Cholesterol Arterial Blood Glucose Arterial Blood Ionized Calcium Urine WBC (Auto) Salicylates Acetaminophen Hepatitis C Antibody 04/10/20 04/10/20 04/10/20 17:27 18:08 23:29 WBC RBC Hgb Hct RDW Plt Count Seg Neuts % (Manual) Lymphocytes % (Manual) Monocytes % (Manual) Basophils % (Manual) Seg Neutrophils # Man Lymphocytes # (Manual) Monocytes # (Manual) Eosinophils # (Manual) Basophils # (Manual) D-Dimer ABG pH POC ABG pCO2 POC ABG pO2 ABG pO2 ABG HCO3 ABG Base Excess ABG Hemoglobin ABG Oxyhemoglobin ABG Sodium ABG Chloride ABG Glucose Oxyhemoglobin Sodium Potassium Chloride Carbon Dioxide BUN Creatinine Glucose POC Glucose 218 H 223 H 166 H Lactic Acid Calcium Magnesium Ferritin Alkaline Phosphatase Lactate Dehydrogenase Total Creatine Kinase Troponin T C-Reactive Protein Albumin Triglycerides Cholesterol HDL Cholesterol Arterial Blood Glucose Arterial Blood Ionized Calcium Urine WBC (Auto) Salicylates Acetaminophen Hepatitis C Antibody 04/11/20 04/11/20 04/11/20 03:44 05:28 07:39 WBC 26.9 H RBC 3.32 L Hgb 9.4 L Hct 29.5 L RDW 17.2 H Plt Count Seg Neuts % (Manual) 83.0 H Lymphocytes % (Manual) 10.0 L Monocytes % (Manual) Basophils % (Manual) Seg Neutrophils # Man 22.3 H Lymphocytes # (Manual) Monocytes # (Manual) 1.1 H Eosinophils # (Manual) 0.5 H Basophils # (Manual) D-Dimer ABG pH 7.313 L POC ABG pCO2 POC ABG pO2 ABG pO2 73.4 L ABG HCO3 26.7 H ABG Base Excess ABG Hemoglobin 11.0 L ABG Oxyhemoglobin ABG Sodium ABG Chloride ABG Glucose Oxyhemoglobin 92.8 L Sodium Potassium Chloride Carbon Dioxide BUN Creatinine Glucose POC Glucose 164 H Lactic Acid Calcium Magnesium Ferritin Alkaline Phosphatase Lactate Dehydrogenase Total Creatine Kinase Troponin T C-Reactive Protein Albumin Triglycerides Cholesterol HDL Cholesterol Arterial Blood Glucose Arterial Blood Ionized Calcium Urine WBC (Auto) Salicylates Acetaminophen Hepatitis C Antibody 04/11/20 04/11/20 04/11/20 07:39 12:25 19:02 WBC RBC Hgb Hct RDW Plt Count Seg Neuts % (Manual) Lymphocytes % (Manual) Monocytes % (Manual) Basophils % (Manual) Seg Neutrophils # Man Lymphocytes # (Manual) Monocytes # (Manual) Eosinophils # (Manual) Basophils # (Manual) D-Dimer ABG pH POC ABG pCO2 POC ABG pO2 ABG pO2 ABG HCO3 ABG Base Excess ABG Hemoglobin ABG Oxyhemoglobin ABG Sodium ABG Chloride ABG Glucose Oxyhemoglobin Sodium Potassium Chloride Carbon Dioxide BUN 48 H Creatinine 6.1 H Glucose 122 H POC Glucose 175 H 175 H Lactic Acid Calcium 8.3 L Magnesium Ferritin Alkaline Phosphatase Lactate Dehydrogenase Total Creatine Kinase Troponin T C-Reactive Protein Albumin Triglycerides Cholesterol HDL Cholesterol Arterial Blood Glucose Arterial Blood Ionized Calcium Urine WBC (Auto) Salicylates Acetaminophen Hepatitis C Antibody 04/12/20 04/12/20 04/12/20 00:02 05:51 08:14 WBC 28.0 H RBC 3.29 L Hgb 9.5 L Hct 29.1 L RDW 16.9 H Plt Count Seg Neuts % (Manual) 88.0 H Lymphocytes % (Manual) 7.0 L Monocytes % (Manual) Basophils % (Manual) Seg Neutrophils # Man 24.6 H Lymphocytes # (Manual) Monocytes # (Manual) Eosinophils # (Manual) 0.6 H Basophils # (Manual) D-Dimer ABG pH POC ABG pCO2 POC ABG pO2 ABG pO2 ABG HCO3 ABG Base Excess ABG Hemoglobin ABG Oxyhemoglobin ABG Sodium ABG Chloride ABG Glucose Oxyhemoglobin Sodium Potassium Chloride Carbon Dioxide BUN Creatinine Glucose POC Glucose 146 H 151 H Lactic Acid Calcium Magnesium Ferritin Alkaline Phosphatase Lactate Dehydrogenase Total Creatine Kinase Troponin T C-Reactive Protein Albumin Triglycerides Cholesterol HDL Cholesterol Arterial Blood Glucose Arterial Blood Ionized Calcium Urine WBC (Auto) Salicylates Acetaminophen Hepatitis C Antibody 04/12/20 04/12/20 04/12/20 08:14 12:21 17:26 WBC RBC Hgb Hct RDW Plt Count Seg Neuts % (Manual) Lymphocytes % (Manual) Monocytes % (Manual) Basophils % (Manual) Seg Neutrophils # Man Lymphocytes # (Manual) Monocytes # (Manual) Eosinophils # (Manual) Basophils # (Manual) D-Dimer ABG pH POC ABG pCO2 POC ABG pO2 ABG pO2 ABG HCO3 ABG Base Excess ABG Hemoglobin ABG Oxyhemoglobin ABG Sodium ABG Chloride ABG Glucose Oxyhemoglobin Sodium Potassium 3.3 L Chloride Carbon Dioxide BUN 32 H Creatinine 4.3 H Glucose 188 H POC Glucose 196 H 235 H Lactic Acid Calcium Magnesium Ferritin Alkaline Phosphatase Lactate Dehydrogenase Total Creatine Kinase Troponin T C-Reactive Protein Albumin Triglycerides Cholesterol HDL Cholesterol Arterial Blood Glucose Arterial Blood Ionized Calcium Urine WBC (Auto) Salicylates Acetaminophen Hepatitis C Antibody 04/12/20 04/13/20 04/13/20 23:34 03:40 05:33 WBC RBC Hgb Hct RDW Plt Count Seg Neuts % (Manual) Lymphocytes % (Manual) Monocytes % (Manual) Basophils % (Manual) Seg Neutrophils # Man Lymphocytes # (Manual) Monocytes # (Manual) Eosinophils # (Manual) Basophils # (Manual) D-Dimer ABG pH POC ABG pCO2 POC ABG pO2 ABG pO2 ABG HCO3 ABG Base Excess ABG Hemoglobin 9.4 L ABG Oxyhemoglobin ABG Sodium 133.6 L ABG Chloride ABG Glucose 172 H Oxyhemoglobin Sodium Potassium Chloride Carbon Dioxide BUN Creatinine Glucose POC Glucose 171 H 167 H Lactic Acid Calcium Magnesium Ferritin Alkaline Phosphatase Lactate Dehydrogenase Total Creatine Kinase Troponin T C-Reactive Protein Albumin Triglycerides Cholesterol HDL Cholesterol Arterial Blood Glucose 172 H Arterial Blood Ionized Calcium Urine WBC (Auto) Salicylates Acetaminophen Hepatitis C Antibody 04/13/20 04/13/20 04/13/20 07:49 09:09 11:34 WBC RBC Hgb Hct RDW Plt Count Seg Neuts % (Manual) Lymphocytes % (Manual) Monocytes % (Manual) Basophils % (Manual) Seg Neutrophils # Man Lymphocytes # (Manual) Monocytes # (Manual) Eosinophils # (Manual) Basophils # (Manual) D-Dimer ABG pH POC ABG pCO2 POC ABG pO2 ABG pO2 ABG HCO3 ABG Base Excess ABG Hemoglobin ABG Oxyhemoglobin ABG Sodium ABG Chloride ABG Glucose Oxyhemoglobin Sodium Potassium Chloride Carbon Dioxide 31 H BUN 44 H 43 H Creatinine 5.0 H 4.9 H Glucose 164 H 164 H POC Glucose 155 H Lactic Acid Calcium Magnesium Ferritin Alkaline Phosphatase Lactate Dehydrogenase Total Creatine Kinase Troponin T C-Reactive Protein Albumin Triglycerides Cholesterol HDL Cholesterol Arterial Blood Glucose Arterial Blood Ionized Calcium Urine WBC (Auto) Salicylates Acetaminophen Hepatitis C Antibody 04/13/20 04/13/20 04/14/20 17:38 23:40 04:35 WBC RBC Hgb Hct RDW Plt Count Seg Neuts % (Manual) Lymphocytes % (Manual) Monocytes % (Manual) Basophils % (Manual) Seg Neutrophils # Man Lymphocytes # (Manual) Monocytes # (Manual) Eosinophils # (Manual) Basophils # (Manual) D-Dimer ABG pH POC ABG pCO2 POC ABG pO2 ABG pO2 ABG HCO3 ABG Base Excess ABG Hemoglobin ABG Oxyhemoglobin ABG Sodium ABG Chloride ABG Glucose Oxyhemoglobin Sodium Potassium Chloride Carbon Dioxide BUN Creatinine Glucose POC Glucose 180 H 130 H 121 H Lactic Acid Calcium Magnesium Ferritin Alkaline Phosphatase Lactate Dehydrogenase Total Creatine Kinase Troponin T C-Reactive Protein Albumin Triglycerides Cholesterol HDL Cholesterol Arterial Blood Glucose Arterial Blood Ionized Calcium Urine WBC (Auto) Salicylates Acetaminophen Hepatitis C Antibody 04/14/20 04/14/20 04/15/20 12:17 17:06 00:11 WBC RBC Hgb Hct RDW Plt Count Seg Neuts % (Manual) Lymphocytes % (Manual) Monocytes % (Manual) Basophils % (Manual) Seg Neutrophils # Man Lymphocytes # (Manual) Monocytes # (Manual) Eosinophils # (Manual) Basophils # (Manual) D-Dimer ABG pH POC ABG pCO2 POC ABG pO2 ABG pO2 ABG HCO3 ABG Base Excess ABG Hemoglobin ABG Oxyhemoglobin ABG Sodium ABG Chloride ABG Glucose Oxyhemoglobin Sodium Potassium Chloride Carbon Dioxide BUN Creatinine Glucose POC Glucose 170 H 177 H 156 H Lactic Acid Calcium Magnesium Ferritin Alkaline Phosphatase Lactate Dehydrogenase Total Creatine Kinase Troponin T C-Reactive Protein Albumin Triglycerides Cholesterol HDL Cholesterol Arterial Blood Glucose Arterial Blood Ionized Calcium Urine WBC (Auto) Salicylates Acetaminophen Hepatitis C Antibody 04/15/20 04/15/20 04/15/20 05:09 11:45 17:12 WBC RBC Hgb Hct RDW Plt Count Seg Neuts % (Manual) Lymphocytes % (Manual) Monocytes % (Manual) Basophils % (Manual) Seg Neutrophils # Man Lymphocytes # (Manual) Monocytes # (Manual) Eosinophils # (Manual) Basophils # (Manual) D-Dimer ABG pH POC ABG pCO2 POC ABG pO2 ABG pO2 ABG HCO3 ABG Base Excess ABG Hemoglobin ABG Oxyhemoglobin ABG Sodium ABG Chloride ABG Glucose Oxyhemoglobin Sodium Potassium Chloride Carbon Dioxide BUN Creatinine Glucose POC Glucose 141 H 154 H 177 H Lactic Acid Calcium Magnesium Ferritin Alkaline Phosphatase Lactate Dehydrogenase Total Creatine Kinase Troponin T C-Reactive Protein Albumin Triglycerides Cholesterol HDL Cholesterol Arterial Blood Glucose Arterial Blood Ionized Calcium Urine WBC (Auto) Salicylates Acetaminophen Hepatitis C Antibody 04/16/20 04/16/20 04/16/20 05:11 12:13 17:31 WBC RBC Hgb Hct RDW Plt Count Seg Neuts % (Manual) Lymphocytes % (Manual) Monocytes % (Manual) Basophils % (Manual) Seg Neutrophils # Man Lymphocytes # (Manual) Monocytes # (Manual) Eosinophils # (Manual) Basophils # (Manual) D-Dimer ABG pH POC ABG pCO2 POC ABG pO2 ABG pO2 ABG HCO3 ABG Base Excess ABG Hemoglobin ABG Oxyhemoglobin ABG Sodium ABG Chloride ABG Glucose Oxyhemoglobin Sodium Potassium Chloride Carbon Dioxide BUN Creatinine Glucose POC Glucose 115 H 122 H 188 H Lactic Acid Calcium Magnesium Ferritin Alkaline Phosphatase Lactate Dehydrogenase Total Creatine Kinase Troponin T C-Reactive Protein Albumin Triglycerides Cholesterol HDL Cholesterol Arterial Blood Glucose Arterial Blood Ionized Calcium Urine WBC (Auto) Salicylates Acetaminophen Hepatitis C Antibody 04/16/20 04/17/20 04/17/20 23:47 05:44 05:44 WBC 19.5 H RBC 3.26 L Hgb 9.3 L Hct 28.7 L RDW 15.9 H Plt Count 604 H Seg Neuts % (Manual) 81.0 H Lymphocytes % (Manual) 11.0 L Monocytes % (Manual) Basophils % (Manual) Seg Neutrophils # Man 15.8 H Lymphocytes # (Manual) Monocytes # (Manual) Eosinophils # (Manual) 0.6 H Basophils # (Manual) 0.2 H D-Dimer ABG pH POC ABG pCO2 POC ABG pO2 ABG pO2 ABG HCO3 ABG Base Excess ABG Hemoglobin ABG Oxyhemoglobin ABG Sodium ABG Chloride ABG Glucose Oxyhemoglobin Sodium Potassium Chloride Carbon Dioxide BUN 28 H Creatinine 3.3 H Glucose 130 H POC Glucose 156 H Lactic Acid Calcium Magnesium Ferritin Alkaline Phosphatase Lactate Dehydrogenase Total Creatine Kinase Troponin T C-Reactive Protein Albumin Triglycerides Cholesterol HDL Cholesterol Arterial Blood Glucose Arterial Blood Ionized Calcium Urine WBC (Auto) Salicylates Acetaminophen Hepatitis C Antibody 04/17/20 04/17/20 04/17/20 12:57 17:18 22:04 WBC RBC Hgb Hct RDW Plt Count Seg Neuts % (Manual) Lymphocytes % (Manual) Monocytes % (Manual) Basophils % (Manual) Seg Neutrophils # Man Lymphocytes # (Manual) Monocytes # (Manual) Eosinophils # (Manual) Basophils # (Manual) D-Dimer ABG pH 7.553 H POC ABG pCO2 POC ABG pO2 206.5 H ABG pO2 ABG HCO3 ABG Base Excess ABG Hemoglobin 11.2 L ABG Oxyhemoglobin 99.1 H ABG Sodium 133.0 L ABG Chloride ABG Glucose 183 H Oxyhemoglobin Sodium Potassium Chloride Carbon Dioxide BUN Creatinine Glucose POC Glucose 146 H 156 H Lactic Acid Calcium Magnesium Ferritin Alkaline Phosphatase Lactate Dehydrogenase Total Creatine Kinase Troponin T C-Reactive Protein Albumin Triglycerides Cholesterol HDL Cholesterol Arterial Blood Glucose 183 H Arterial Blood Ionized Calcium 4.4 L Urine WBC (Auto) Salicylates Acetaminophen Hepatitis C Antibody 04/17/20 04/18/20 04/18/20 23:29 03:23 04:43 WBC RBC Hgb Hct RDW Plt Count Seg Neuts % (Manual) Lymphocytes % (Manual) Monocytes % (Manual) Basophils % (Manual) Seg Neutrophils # Man Lymphocytes # (Manual) Monocytes # (Manual) Eosinophils # (Manual) Basophils # (Manual) D-Dimer ABG pH 7.486 H POC ABG pCO2 POC ABG pO2 56.4 L ABG pO2 ABG HCO3 ABG Base Excess ABG Hemoglobin 11.2 L ABG Oxyhemoglobin 92.0 L ABG Sodium 135.1 L ABG Chloride ABG Glucose 138 H Oxyhemoglobin Sodium Potassium Chloride Carbon Dioxide BUN Creatinine Glucose POC Glucose 125 H 119 H Lactic Acid Calcium Magnesium Ferritin Alkaline Phosphatase Lactate Dehydrogenase Total Creatine Kinase Troponin T C-Reactive Protein Albumin Triglycerides Cholesterol HDL Cholesterol Arterial Blood Glucose 138 H Arterial Blood Ionized Calcium 4.5 L Urine WBC (Auto) Salicylates Acetaminophen Hepatitis C Antibody 04/18/20 04/18/20 04/18/20 06:48 06:48 06:48 WBC 38.7 H RBC Hgb Hct RDW 16.3 H Plt Count 597 H Seg Neuts % (Manual) Lymphocytes % (Manual) Monocytes % (Manual) Basophils % (Manual) Seg Neutrophils # Man Lymphocytes # (Manual) Monocytes # (Manual) Eosinophils # (Manual) Basophils # (Manual) D-Dimer 1144.77 H ABG pH POC ABG pCO2 POC ABG pO2 ABG pO2 ABG HCO3 ABG Base Excess ABG Hemoglobin ABG Oxyhemoglobin ABG Sodium ABG Chloride ABG Glucose Oxyhemoglobin Sodium 134 L Potassium Chloride 96.4 L Carbon Dioxide BUN 19 H Creatinine 2.6 H Glucose 104 H POC Glucose Lactic Acid Calcium Magnesium Ferritin Alkaline Phosphatase 413 H Lactate Dehydrogenase Total Creatine Kinase Troponin T C-Reactive Protein Albumin 2.8 L Triglycerides Cholesterol HDL Cholesterol Arterial Blood Glucose Arterial Blood Ionized Calcium Urine WBC (Auto) Salicylates Acetaminophen Hepatitis C Antibody 04/18/20 04/18/20 04/19/20 11:33 17:18 06:24 WBC 28.9 H RBC 3.33 L Hgb 9.5 L Hct 29.5 L RDW 16.0 H Plt Count 577 H Seg Neuts % (Manual) Lymphocytes % (Manual) Monocytes % (Manual) Basophils % (Manual) Seg Neutrophils # Man Lymphocytes # (Manual) Monocytes # (Manual) Eosinophils # (Manual) Basophils # (Manual) D-Dimer ABG pH POC ABG pCO2 POC ABG pO2 ABG pO2 ABG HCO3 ABG Base Excess ABG Hemoglobin ABG Oxyhemoglobin ABG Sodium ABG Chloride ABG Glucose Oxyhemoglobin Sodium Potassium Chloride Carbon Dioxide BUN Creatinine Glucose POC Glucose 195 H 162 H Lactic Acid Calcium Magnesium Ferritin Alkaline Phosphatase Lactate Dehydrogenase Total Creatine Kinase Troponin T C-Reactive Protein Albumin Triglycerides Cholesterol HDL Cholesterol Arterial Blood Glucose Arterial Blood Ionized Calcium Urine WBC (Auto) Salicylates Acetaminophen Hepatitis C Antibody 04/19/20 04/19/20 04/20/20 06:24 17:28 07:50 WBC 22.7 H RBC 3.43 L Hgb 9.6 L Hct RDW 15.9 H Plt Count 530 H Seg Neuts % (Manual) Lymphocytes % (Manual) Monocytes % (Manual) Basophils % (Manual) Seg Neutrophils # Man Lymphocytes # (Manual) Monocytes # (Manual) Eosinophils # (Manual) Basophils # (Manual) D-Dimer ABG pH POC ABG pCO2 POC ABG pO2 ABG pO2 ABG HCO3 ABG Base Excess ABG Hemoglobin ABG Oxyhemoglobin ABG Sodium ABG Chloride ABG Glucose Oxyhemoglobin Sodium Potassium Chloride Carbon Dioxide 31 H D BUN 27 H Creatinine 3.8 H Glucose POC Glucose 114 H Lactic Acid Calcium Magnesium Ferritin Alkaline Phosphatase 343 H Lactate Dehydrogenase Total Creatine Kinase Troponin T C-Reactive Protein Albumin 2.8 L Triglycerides Cholesterol HDL Cholesterol Arterial Blood Glucose Arterial Blood Ionized Calcium Urine WBC (Auto) Salicylates Acetaminophen Hepatitis C Antibody 04/20/20 04/21/20 04/21/20 07:50 00:42 04:32 WBC 16.4 H RBC 3.37 L Hgb 9.7 L Hct 30.0 L RDW 15.6 H Plt Count 597 H Seg Neuts % (Manual) Lymphocytes % (Manual) Monocytes % (Manual) Basophils % (Manual) Seg Neutrophils # Man Lymphocytes # (Manual) Monocytes # (Manual) Eosinophils # (Manual) Basophils # (Manual) D-Dimer ABG pH POC ABG pCO2 POC ABG pO2 ABG pO2 ABG HCO3 ABG Base Excess ABG Hemoglobin ABG Oxyhemoglobin ABG Sodium ABG Chloride ABG Glucose Oxyhemoglobin Sodium Potassium Chloride Carbon Dioxide 31 H BUN Creatinine 2.8 H Glucose POC Glucose 119 H Lactic Acid Calcium Magnesium Ferritin Alkaline Phosphatase Lactate Dehydrogenase Total Creatine Kinase Troponin T C-Reactive Protein Albumin Triglycerides Cholesterol HDL Cholesterol Arterial Blood Glucose Arterial Blood Ionized Calcium Urine WBC (Auto) Salicylates Acetaminophen Hepatitis C Antibody 04/21/20 04/21/20 04/21/20 04:32 16:30 17:43 WBC RBC Hgb Hct RDW Plt Count Seg Neuts % (Manual) Lymphocytes % (Manual) Monocytes % (Manual) Basophils % (Manual) Seg Neutrophils # Man Lymphocytes # (Manual) Monocytes # (Manual) Eosinophils # (Manual) Basophils # (Manual) D-Dimer ABG pH POC ABG pCO2 POC ABG pO2 ABG pO2 ABG HCO3 ABG Base Excess ABG Hemoglobin ABG Oxyhemoglobin ABG Sodium ABG Chloride ABG Glucose Oxyhemoglobin Sodium Potassium Chloride Carbon Dioxide BUN 25 H Creatinine 3.9 H Glucose 106 H POC Glucose 149 H 171 H Lactic Acid Calcium Magnesium Ferritin Alkaline Phosphatase 324 H Lactate Dehydrogenase Total Creatine Kinase Troponin T C-Reactive Protein Albumin 3.0 L Triglycerides Cholesterol HDL Cholesterol Arterial Blood Glucose Arterial Blood Ionized Calcium Urine WBC (Auto) Salicylates Acetaminophen Hepatitis C Antibody 04/22/20 04/22/20 04/22/20 00:59 03:50 03:50 WBC 15.5 H RBC Hgb Hct RDW Plt Count 629 H Seg Neuts % (Manual) Lymphocytes % (Manual) Monocytes % (Manual) Basophils % (Manual) Seg Neutrophils # Man Lymphocytes # (Manual) Monocytes # (Manual) Eosinophils # (Manual) Basophils # (Manual) D-Dimer ABG pH POC ABG pCO2 POC ABG pO2 ABG pO2 ABG HCO3 ABG Base Excess ABG Hemoglobin ABG Oxyhemoglobin ABG Sodium ABG Chloride ABG Glucose Oxyhemoglobin Sodium Potassium Chloride Carbon Dioxide BUN Creatinine 2.6 H Glucose 131 H POC Glucose 128 H Lactic Acid Calcium Magnesium Ferritin Alkaline Phosphatase Lactate Dehydrogenase Total Creatine Kinase Troponin T C-Reactive Protein Albumin Triglycerides Cholesterol HDL Cholesterol Arterial Blood Glucose Arterial Blood Ionized Calcium Urine WBC (Auto) Salicylates Acetaminophen Hepatitis C Antibody 04/22/20 04/22/20 04/22/20 05:38 07:50 11:44 WBC RBC Hgb Hct RDW Plt Count Seg Neuts % (Manual) Lymphocytes % (Manual) Monocytes % (Manual) Basophils % (Manual) Seg Neutrophils # Man Lymphocytes # (Manual) Monocytes # (Manual) Eosinophils # (Manual) Basophils # (Manual) D-Dimer ABG pH POC ABG pCO2 POC ABG pO2 ABG pO2 ABG HCO3 ABG Base Excess ABG Hemoglobin ABG Oxyhemoglobin ABG Sodium ABG Chloride ABG Glucose Oxyhemoglobin Sodium Potassium Chloride Carbon Dioxide BUN Creatinine Glucose POC Glucose 115 H 147 H 175 H Lactic Acid Calcium Magnesium Ferritin Alkaline Phosphatase Lactate Dehydrogenase Total Creatine Kinase Troponin T C-Reactive Protein Albumin Triglycerides Cholesterol HDL Cholesterol Arterial Blood Glucose Arterial Blood Ionized Calcium Urine WBC (Auto) Salicylates Acetaminophen Hepatitis C Antibody 04/22/20 04/23/20 04/23/20 16:41 00:12 08:26 WBC RBC Hgb Hct RDW Plt Count Seg Neuts % (Manual) Lymphocytes % (Manual) Monocytes % (Manual) Basophils % (Manual) Seg Neutrophils # Man Lymphocytes # (Manual) Monocytes # (Manual) Eosinophils # (Manual) Basophils # (Manual) D-Dimer ABG pH POC ABG pCO2 POC ABG pO2 ABG pO2 ABG HCO3 ABG Base Excess ABG Hemoglobin ABG Oxyhemoglobin ABG Sodium ABG Chloride ABG Glucose Oxyhemoglobin Sodium Potassium Chloride Carbon Dioxide BUN Creatinine Glucose POC Glucose 180 H 175 H Lactic Acid Calcium Magnesium Ferritin Alkaline Phosphatase 308 H Lactate Dehydrogenase Total Creatine Kinase Troponin T C-Reactive Protein Albumin 3.2 L Triglycerides Cholesterol HDL Cholesterol Arterial Blood Glucose Arterial Blood Ionized Calcium Urine WBC (Auto) Salicylates Acetaminophen Hepatitis C Antibody 04/23/20 04/23/20 04/23/20 08:44 12:36 16:43 WBC RBC Hgb Hct RDW Plt Count Seg Neuts % (Manual) Lymphocytes % (Manual) Monocytes % (Manual) Basophils % (Manual) Seg Neutrophils # Man Lymphocytes # (Manual) Monocytes # (Manual) Eosinophils # (Manual) Basophils # (Manual) D-Dimer ABG pH POC ABG pCO2 POC ABG pO2 ABG pO2 ABG HCO3 ABG Base Excess ABG Hemoglobin ABG Oxyhemoglobin ABG Sodium ABG Chloride ABG Glucose Oxyhemoglobin Sodium Potassium Chloride Carbon Dioxide BUN Creatinine Glucose POC Glucose 171 H 165 H 196 H Lactic Acid Calcium Magnesium Ferritin Alkaline Phosphatase Lactate Dehydrogenase Total Creatine Kinase Troponin T C-Reactive Protein Albumin Triglycerides Cholesterol HDL Cholesterol Arterial Blood Glucose Arterial Blood Ionized Calcium Urine WBC (Auto) Salicylates Acetaminophen Hepatitis C Antibody 04/24/20 04/24/20 04/24/20 00:08 09:09 16:42 WBC RBC Hgb Hct RDW Plt Count Seg Neuts % (Manual) Lymphocytes % (Manual) Monocytes % (Manual) Basophils % (Manual) Seg Neutrophils # Man Lymphocytes # (Manual) Monocytes # (Manual) Eosinophils # (Manual) Basophils # (Manual) D-Dimer ABG pH POC ABG pCO2 POC ABG pO2 ABG pO2 ABG HCO3 ABG Base Excess ABG Hemoglobin ABG Oxyhemoglobin ABG Sodium ABG Chloride ABG Glucose Oxyhemoglobin Sodium Potassium Chloride Carbon Dioxide BUN Creatinine Glucose POC Glucose 150 H 165 H 166 H Lactic Acid Calcium Magnesium Ferritin Alkaline Phosphatase Lactate Dehydrogenase Total Creatine Kinase Troponin T C-Reactive Protein Albumin Triglycerides Cholesterol HDL Cholesterol Arterial Blood Glucose Arterial Blood Ionized Calcium Urine WBC (Auto) Salicylates Acetaminophen Hepatitis C Antibody 04/24/20 04/25/20 04/25/20 22:44 05:23 11:48 WBC RBC Hgb Hct RDW Plt Count Seg Neuts % (Manual) Lymphocytes % (Manual) Monocytes % (Manual) Basophils % (Manual) Seg Neutrophils # Man Lymphocytes # (Manual) Monocytes # (Manual) Eosinophils # (Manual) Basophils # (Manual) D-Dimer ABG pH POC ABG pCO2 POC ABG pO2 ABG pO2 ABG HCO3 ABG Base Excess ABG Hemoglobin ABG Oxyhemoglobin ABG Sodium ABG Chloride ABG Glucose Oxyhemoglobin Sodium Potassium Chloride Carbon Dioxide BUN Creatinine Glucose POC Glucose 226 H 293 H 256 H Lactic Acid Calcium Magnesium Ferritin Alkaline Phosphatase Lactate Dehydrogenase Total Creatine Kinase Troponin T C-Reactive Protein Albumin Triglycerides Cholesterol HDL Cholesterol Arterial Blood Glucose Arterial Blood Ionized Calcium Urine WBC (Auto) Salicylates Acetaminophen Hepatitis C Antibody 04/25/20 04/25/20 04/26/20 17:31 23:30 05:02 WBC RBC Hgb Hct RDW Plt Count Seg Neuts % (Manual) Lymphocytes % (Manual) Monocytes % (Manual) Basophils % (Manual) Seg Neutrophils # Man Lymphocytes # (Manual) Monocytes # (Manual) Eosinophils # (Manual) Basophils # (Manual) D-Dimer ABG pH POC ABG pCO2 POC ABG pO2 ABG pO2 ABG HCO3 ABG Base Excess ABG Hemoglobin ABG Oxyhemoglobin ABG Sodium ABG Chloride ABG Glucose Oxyhemoglobin Sodium Potassium Chloride Carbon Dioxide BUN Creatinine Glucose POC Glucose 294 H 296 H 280 H Lactic Acid Calcium Magnesium Ferritin Alkaline Phosphatase Lactate Dehydrogenase Total Creatine Kinase Troponin T C-Reactive Protein Albumin Triglycerides Cholesterol HDL Cholesterol Arterial Blood Glucose Arterial Blood Ionized Calcium Urine WBC (Auto) Salicylates Acetaminophen Hepatitis C Antibody 04/26/20 04/26/20 04/26/20 11:50 13:30 14:26 WBC RBC Hgb Hct RDW Plt Count Seg Neuts % (Manual) Lymphocytes % (Manual) Monocytes % (Manual) Basophils % (Manual) Seg Neutrophils # Man Lymphocytes # (Manual) Monocytes # (Manual) Eosinophils # (Manual) Basophils # (Manual) D-Dimer ABG pH POC ABG pCO2 POC ABG pO2 66.4 L ABG pO2 ABG HCO3 ABG Base Excess ABG Hemoglobin ABG Oxyhemoglobin ABG Sodium ABG Chloride ABG Glucose 344 H Oxyhemoglobin Sodium Potassium Chloride Carbon Dioxide BUN Creatinine Glucose POC Glucose 262 H Lactic Acid 2.30 H* Calcium Magnesium Ferritin Alkaline Phosphatase Lactate Dehydrogenase Total Creatine Kinase Troponin T C-Reactive Protein Albumin Triglycerides Cholesterol HDL Cholesterol Arterial Blood Glucose 344 H Arterial Blood Ionized Calcium Urine WBC (Auto) Salicylates Acetaminophen Hepatitis C Antibody 04/26/20 04/26/20 04/26/20 14:26 14:26 17:10 WBC 33.9 H RBC Hgb Hct RDW 15.5 H Plt Count Seg Neuts % (Manual) 84.0 H Lymphocytes % (Manual) 7.0 L Monocytes % (Manual) 8.0 H Basophils % (Manual) Seg Neutrophils # Man 28.5 H Lymphocytes # (Manual) Monocytes # (Manual) 2.7 H Eosinophils # (Manual) Basophils # (Manual) D-Dimer ABG pH POC ABG pCO2 POC ABG pO2 ABG pO2 ABG HCO3 ABG Base Excess ABG Hemoglobin ABG Oxyhemoglobin ABG Sodium ABG Chloride ABG Glucose Oxyhemoglobin Sodium 135 L Potassium Chloride Carbon Dioxide 18 L D BUN 27 H Creatinine 3.3 H Glucose 316 H POC Glucose 238 H Lactic Acid Calcium Magnesium Ferritin Alkaline Phosphatase Lactate Dehydrogenase Total Creatine Kinase Troponin T C-Reactive Protein Albumin Triglycerides Cholesterol HDL Cholesterol Arterial Blood Glucose Arterial Blood Ionized Calcium Urine WBC (Auto) Salicylates Acetaminophen Hepatitis C Antibody 04/26/20 04/27/20 04/27/20 23:00 04:46 05:11 WBC RBC Hgb Hct RDW Plt Count Seg Neuts % (Manual) Lymphocytes % (Manual) Monocytes % (Manual) Basophils % (Manual) Seg Neutrophils # Man Lymphocytes # (Manual) Monocytes # (Manual) Eosinophils # (Manual) Basophils # (Manual) D-Dimer ABG pH 7.461 H POC ABG pCO2 POC ABG pO2 68.8 L ABG pO2 ABG HCO3 ABG Base Excess ABG Hemoglobin 11.2 L ABG Oxyhemoglobin ABG Sodium 135.0 L ABG Chloride ABG Glucose 276 H Oxyhemoglobin Sodium Potassium Chloride Carbon Dioxide BUN Creatinine Glucose POC Glucose 168 H 247 H Lactic Acid Calcium Magnesium Ferritin Alkaline Phosphatase Lactate Dehydrogenase Total Creatine Kinase Troponin T C-Reactive Protein Albumin Triglycerides Cholesterol HDL Cholesterol Arterial Blood Glucose 276 H Arterial Blood Ionized Calcium Urine WBC (Auto) Salicylates Acetaminophen Hepatitis C Antibody 04/27/20 13:01 WBC RBC Hgb Hct RDW Plt Count Seg Neuts % (Manual) Lymphocytes % (Manual) Monocytes % (Manual) Basophils % (Manual) Seg Neutrophils # Man Lymphocytes # (Manual) Monocytes # (Manual) Eosinophils # (Manual) Basophils # (Manual) D-Dimer ABG pH POC ABG pCO2 POC ABG pO2 ABG pO2 ABG HCO3 ABG Base Excess ABG Hemoglobin ABG Oxyhemoglobin ABG Sodium ABG Chloride ABG Glucose Oxyhemoglobin Sodium Potassium Chloride Carbon Dioxide BUN Creatinine Glucose POC Glucose 304 H Lactic Acid Calcium Magnesium Ferritin Alkaline Phosphatase Lactate Dehydrogenase Total Creatine Kinase Troponin T C-Reactive Protein Albumin Triglycerides Cholesterol HDL Cholesterol Arterial Blood Glucose Arterial Blood Ionized Calcium Urine WBC (Auto) Salicylates Acetaminophen Hepatitis C Antibody Chest x-ray: pending Allied health notes reviewed: nursing
[2020-04-27] MEDS: ARIPiprazole 5 MG TAB PO SCH (14:00)
[2020-04-27] MEDS ORDERED: SODIUM CHLORIDE 0.9% 250ML 250 ML IV ONE (14:15)
[2020-04-27] MEDS: MIDODRINE 5 MG TAB PO SCH ×2 (15:30→22:02)
--- NOTE | 2020-04-27 15:31 | Progress Note ---
Assessment and Plan Assessment and plan: 49 years old female with history of asthma, hypertension, end-stage renal disease on hemodialysis, diabetes mellitus, bipolar disorder, morbid obesity, CVA, resident of a custodial, admitted on 04/06/2020 secondary to be found Unresponsiveness after hemodialysis. Patient is unable to provide history, currently intubated. Patient received hemodialysis and after completion she became unresponsive. Upon EMS arrival, blood pressure was 90/60, HR 88, temperature 97.2. Per records, patient was not complaining of any symptoms. On arrival, temperature 94.1, HR 66, RR 18, O2 sat 87%, BP 131/111. Initial WBC 19.2. Urinalysis showed more than 182 WBCs and moderate leukocyte esterase. Chest x-ray shows bibasilar infiltrates. Patient was intubated in the emergency room to protect airway. Bains catheter was placed yielding purulent urine. Severe sepsis. Present on admission with hypothermia, leukocytosis, altered mental status, likely due to bilateral pneumonia. F/U Blood Cx. Cont. Abx pre ID Bilateral pneumonia. Aspiration pneumonia/HAP illness induced Gastroparesis: Stable Severe UTI. Bains catheter with purulent urine. Acute hypoxemic and hypercapnic respiratory failure. Intubated for airway protection, O2 sats down to 87%. Acute toxic metabolic encephalopathy. Etiology secondary to sepsis Bibasilar atelectasis, End-stage renal disease on hemodialysis Anemia of chronic renal disease vancomycin allergy ? Causing hives. PER ID documentation at other hosptial does not show vanc allergy Chronic leukocytosis, appears so based on review of records from here and [facility] in the past were reviewed. Chronic Hepatitis C: treatment status unknown. F/U HCV RNA PCR. Extensive Candidal intertrigo in groin and vagina. Cont. Fluconazole Intractable nausea with vomiting. 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 Patient remains intubated on mechanical ventilation with AC mode ventilation rate 12, tidal volume 450, FiO2 40% and a PEEP of 6. Continue weaning per protocols. Patient with ESRD and continue TTS schedule per nephrology. Patient does have a history of COVID-19 infection(01/07/20) but negative testing April 07. Follow-up blood/urine/sputum culture. Continue antibiotics per ID recommendations. 04/09/2020. Patient not tolerating PSV 12/6 with FiO2 of 30%. Continue hemod ialysis per nephrology recommendations. Continue IV antibiotics per ID recommendations. Blood cultures no growth to date. Respiratory therapy reports patient with accelerated hypertension and apneic episodes on PSV ventilation. Await pulmonary recommendations. 04/10/2020. Patient remains on mechanical ventilation AC mode rate 12, tidal volume 450, FiO2 30% and a PEEP of 6. Continue PSV trials per protocols. Continue hemodialysis per nephrology recommendations. Continue anti-infectives of fluconazole and cefepime. Follow-up blood/urine/sputum culture. ID, pulmonary and nephrology following. 04/11/2020; patient remains on mechanical ventilation AC mode rate 12, tidal volume 450, FiO2 of 30 and PEEP of 6. Continue PSV trials per protocols. continue hemodialysis per nephrology. ID changed antibiotics to meropenem. Blood culture grew staph epidermidis likey contaminant. 04/12/2020; patient is intubated, patient open eyes spontaneously. Neurology consulted and continue on replacement treatment. EEG is pending. Recommend MRI. Patient is on meropenem per ID recommendation. Pulmonary is following. Patient is on spontaneous breathing trial 04/13/2020; patient is intubated. Patient's blood pressure was high yesterday, amlodipine and hydralazine was added. Overnight his blood pressure was low and will also BP medications. We will continue to follow. 04/14/2020; patient is intubated and blood pressure is on the low side of normal. Patient is on meropenem 5/5. 04/15/2020; patient is intubated, on spontaneous breathing trial. Pulmonary is following. neurology recommend MRI. 04/16/2020; patient is intubated, on spontaneous breathing trial. Pulmonary is following. Neurology recommend MRI once stable. 04/17: Patient showing some clinical improvement. MRI still pending. Continues on restraints weaning trial today. Antibiotics per ID continue aspiration precautions although management by critical care physician. Noted elevated D- dimer level with trend. See ultrasound of the lower extremity was negative for DVT. Prior hospitalization showed elevated D-dimer also. Will discuss with nephrology if patient needs CTA to see if this can be managed with dialysis. This will be done if patient is unable to wean from the vent due to hypoxia. 04/18: Patient required re-intubation last night due to self extubation and decompensation with hypoxia. CXR post extubation showed tube in expected position. Patient also noted to have large projectile vomiting. - Obtain KUB - start Zofran - Hold tube feeds - May benefit from GI eval if vomiting continues. - She is currently being treated for Aspiration Pneumonia with bactermia and Acute cystitis 04/19: Now extubated, Continue supportive care and aspiration precautions. Patient complaining of chronic pain, will resume home dose pain meds and avoid oversedation. No new seizure noted. still awaiting MRI brain. GI input noted: illness induced gastropoaresis, otherwise KUB and LFT normal, will start low fat fiber diet once patient able to tolerate PO. Continue to monitor WBC, increased again today. 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 Unless indicated by Intesivist will like to monitor patient in the ICU for additional 24 hrs before downgrading. 04/20: CONTINUE Aspiration precautions, started on D5NS for low Blood glucose. Speech re-eval today. PAIN CONTROL 04/21: Continue aspiration precautions. Blood sugar stable continue to monitor WBC count. Will reassess with speech evaluation continue restraints due to aggressive behavior towards nurses and pulling on shelving. Monitor mental status. 04/22: patient complains of nasuea, will start on Reglan IV prn. CONTINUE supportive care. 04/23: Patient continues on restraints. She tells me that she has a history of Gastroparesis. Will start IV reglan., check ct abdomen and pelvis. repeat speech eval and may need PEG if still not tolerating Diet. She will benefit from a product safety and standards engineer 04/24: Awaiting repeat speech evaluation. Office summary patient was admitted on 04/06/2020 with unresponsiveness after hemodialysis and no custodial resident and also with noted-gastroparesis. Patient was treated for fluid overload also with some antibiotics including antifungal. Cultures were unremarkable. CT of the abdomen repeated yesterday showed some perinephric stranding with patchy bibasilar airspace disease concerning for pneumonia. Will place empirically on Keflex. And monitor closely. If patient passes swallow evaluation can work on discharge back to custodial tomorrow if not GI should be consulted for possible PEG placement. Mental status is improving. 04/25: patient remains lethergic, has failed swallow eval, has chronic Gastroparesis and also persistent Encephalopathy, will plan for PEG tube placement prior to discharge back to [facility]. 04/26: Patient reintubated today due to agonal breathing with altered sensorium while a CODE BLUE was called did not require CPR. Will obtain a EEG, CT of the head, echocardiogram if this has not been done. I have discussed with family and updated them about her prognosis considering recurrent readmission. Patient was planned for PEG tube but this has been put on hold at this time. 04/27: Remains on full mechanical support continue current management. The high probability of a clinically significant, sudden or life threatening deterioration of the [pulmonary, neurology, renal] system(s) required my full and direct attention, intervention and personal management. The aggregate critical care time was [35] minutes. This time is in addition to time spent performing reported procedures but includes the following: [X] Data Review and interpretation [X] Patient assessment and monitoring of vital signs [X] Documentation [X] Medication orders and management History Interval history: Patient seen and examined, remains in the ICU with mechanical ventilation Hospitalist Physical - Physical exam Narrative exam: VITAL SIGNS: Reviewed. GENERAL: The patient appears normally developed, reintubated vital signs as documented. HEAD: No signs of head trauma. EYES: Pupils are equal. EARS: Unable to examine MOUTH: Oropharynx is normal. face mask on. NECK: No adenopathy, no JVD. CHEST: Chest with t diminished breath sounds bilaterally. No wheezes, rales, or rhonchi. CARDIAC: Regular rate and rhythm. S1 and S2, without murmurs, gallops, or rubs. VASCULAR: No Edema. Peripheral pulses normal and equal in all extremities. ABDOMEN: Soft, non tender and non distended. No rebound or guarding, and no masses palpated. Bowel Sounds normal. MUSCULOSKELETAL: Bilateral BKA NEUROLOGIC EXAM: Awake, lethargic confused. PSYCHIATRIC: Unable to examine SKIN: detail exam as documented in skin assessment - Constitutional Vitals: Temp Pulse Resp BP Pulse Ox 99.1 F 92 H 20 94/37 100 04/27/20 12:00 04/27/20 14:15 04/27/20 14:15 04/27/20 14:15 04/27/20 14:15 General appearance: Present: severe distress, other (Intubated on mechanical ventilation) HEART Score - HEART Score Troponin: Troponin T 0.224 ng/mL (0.00-0.029) H* 04/06/20 14:30 Results - Labs CBC & Chem 7: 04/28/20 05:52 04/28/20 05:52 Labs: Laboratory Last Values WBC 33.9 K/mm3 (4.5-11.0) H 04/26/20 14:26 RBC 4.51 M/mm3 (3.65-5.03) 04/26/20 14:26 Hgb 12.5 gm/dl (10.1-14.3) 04/26/20 14:26 Hct 39.9 % (30.3-42.9) 04/26/20 14:26 MCV 88 fl (79-97) 04/26/20 14:26 MCH 28 pg (28-32) 04/26/20 14:26 MCHC 31 % (30-34) 04/26/20 14:26 RDW 15.5 % (13.2-15.2) H 04/26/20 14:26 Plt Count 334 K/mm3 (140-440) 04/26/20 14:26 Add Manual Diff Complete 04/26/20 14:26 Total Counted 100 04/26/20 14:26 Seg Neuts % (Manual) 84.0 % (40.0-70.0) H 04/26/20 14:26 Band Neutrophils % 0 % 04/26/20 14: Lymphocytes % (Manual) 7.0 % (13.4-35.0) L 04/26/20 14:26 Reactive Lymphs % (Man) 0 % 04/26/20 14:26 Monocytes % (Manual) 8.0 % (0.0-7.3) H 04/26/20 14:26 Eosinophils % (Manual) 1.0 % (0.0-4.3) 04/26/20 14:26 Basophils % (Manual) 0 % (0.0-1.8) 04/26/20 14:26 Metamyelocytes % 0 % 04/26/20 14:26 Myelocytes % 0 % 04/26/20 14:26 Promyelocytes % 0 % 04/26/20 14:26 Blast Cells % 0 % 04/26/20 14:26 Nucleated RBC % Not Reportable 04/26/20 14:26 Seg Neutrophils # Man 28.5 K/mm3 (1.8-7.7) H 04/26/20 14:26 Band Neutrophils # 0.0 K/mm3 04/26/20 14: Lymphocytes # (Manual) 2.4 K/mm3 (1.2-5.4) 04/26/20 14:26 Abs React Lymphs (Man) 0.0 K/mm3 04/26/20 14: Monocytes # (Manual) 2.7 K/mm3 (0.0-0.8) H 04/26/20 14: Eosinophils # (Manual) 0.3 K/mm3 (0.0-0.4) 04/26/20 14: Basophils # (Manual) 0.0 K/mm3 (0.0-0.1) 04/26/20 14: Metamyelocytes # 0.0 K/mm3 04/26/20 14: Myelocytes # 0.0 K/mm3 04/26/20 14: Promyelocytes # 0.0 K/mm3 04/26/20 14: Blast Cells # 0.0 K/mm3 04/26/20 14:26 WBC Morphology Not Reportable 04/26/20 14:26 Hypersegmented Neuts Not Reportable 04/26/20 14:26 Hyposegmented Neuts Not Reportable 04/26/20 14:26 Hypogranular Neuts Not Reportable 04/26/20 14: Smudge Cells Not Reportable 04/26/20 14:26 Toxic Granulation Not Reportable 04/26/20 14:26 Toxic Vacuolation Not Reportable 04/26/20 14:26 Dohle Bodies Not Reportable 04/26/20 14:26 Pelger-Huet Anomaly Not Reportable 04/26/20 14:26 Stephanie Rods Not Reportable 04/26/20 14:26 Platelet Estimate Not Reportable 04/26/20 14:26 Clumped Platelets Not Reportable 04/26/20 14:26 Plt Clumps, EDTA Not Reportable 04/26/20 14: Large Platelets Not Reportable 04/26/20 14: Giant Platelets Not Reportable 04/26/20 14: Platelet Satelliting Not Reportable 04/26/20 14: Plt Morphology Comment Not Reportable 04/26/20 14:26 RBC Morphology Normal 04/26/20 14:26 Dimorphic RBCs Not Reportable 04/26/20 14:26 Polychromasia Not Reportable 04/26/20 14:26 Hypochromasia Not Reportable 04/26/20 14:26 Poikilocytosis Not Reportable 04/26/20 14:26 Anisocytosis Not Reportable 04/26/20 14:26 Microcytosis Not Reportable 04/26/20 14:26 Macrocytosis Not Reportable 04/26/20 14:26 Spherocytes Not Reportable 04/26/20 14:26 Pappenheimer Bodies Not Reportable 04/26/20 14:26 Sickle Cells Not Reportable 04/26/20 14:26 Target Cells Not Reportable 04/26/20 14:26 Tear Drop Cells Not Reportable 04/26/20 14:26 Ovalocytes Not Reportable 04/26/20 14:26 Stomatocytes Few 04/12/20 08:14 Helmet Cells Not Reportable 04/26/20 14:26 Barroso-Rye Bodies Not Reportable 04/26/20 14:26 Hondo Rings Not Reportable 04/26/20 14:26 Michael Cells Not Reportable 04/26/20 14:26 Bite Cells Not Reportable 04/26/20 14:26 Crenated Cell Not Reportable 04/26/20 14:26 Elliptocytes Not Reportable 04/26/20 14:26 Acanthocytes (Spur) Not Reportable 04/26/20 14:26 Rouleaux Not Reportable 04/26/20 14:26 Hemoglobin C Crystals Not Reportable 04/26/20 14:26 Schistocytes Not Reportable 04/26/20 14:26 Malaria parasites Not Reportable 04/26/20 14:26 Lc Bodies Not Reportable 04/26/20 14:26 Hem Pathologist Commnt No 04/26/20 14:26 PT 13.4 Sec. (12.2-14.9) 04/25/20 14:19 INR 1.04 (0.87-1.13) 04/25/20 14:19 APTT 28.1 Sec. (24.2-36.6) 04/06/20 14:30 D-Dimer 1144.77 ng/mlDDU (0-234) H 04/18/20 06:48 ABG pH 7.461 (7.320-7.450) H 04/27/20 04:46 POC ABG pCO2 33.2 mmHg (32.0-48.0) 04/27/20 04:46 ABG pCO2 54.0 mm Hg 04/11/20 03:44 POC ABG pO2 68.8 mmHg (83-108) L 04/27/20 04:46 ABG pO2 73.4 mm Hg (80.0-90.0) L 04/11/20 03:44 POC ABG HCO3 23.1 04/27/20 04:46 ABG HCO3 26.7 mmol/L (20.0-26.0) H 04/11/20 03:44 ABG O2 Saturation 95.0 % (95.0-99.0) 04/11/20 03:44 ABG O2 Content 14.4 (0.0-44) 04/11/20 03:44 POC ABG Base Excess -0.2 04/27/20 04:46 ABG Base Excess -0.1 mmol/L (-2.0-3.0) 04/11/20 03:44 ABG Hemoglobin 11.2 (12.0-17.5) L 04/27/20 04:46 ABG Oxyhemoglobin 92.0 (94-98) L 04/18/20 03:23 ABG Carboxyhemoglobin 1.6 % (0.0-5.0) 04/11/20 03:44 ABG Methemoglobin 0.3 (0.0-1.5) 04/18/20 03:23 ABG Sodium 135.0 mmol/L (136.0-145.0) L 04/27/20 04:46 ABG Potassium 3.7 mmol/L (3.40-4.50) 04/27/20 04:46 ABG Chloride 100.0 mmol/L (98-107) 04/27/20 04:46 ABG Glucose 276 mg/dL (65-95) H 04/27/20 04:46 Oxyhemoglobin 92.8 % (95.0-99.0) L 04/11/20 03:44 Carboxyhemoglobin 0.6 (0.5-1.5) 04/18/20 03:23 FiO2 50 04/27/20 04:46 Sodium 135 mmol/L (137-145) L 04/26/20 14:26 Potassium 3.9 mmol/L (3.6-5.0) 04/26/20 14:26 Chloride 98.9 mmol/L (98-107) 04/26/20 14:26 Carbon Dioxide 18 mmol/L (22-30) L D 04/26/20 14:26 Anion Gap 22 mmol/L 04/26/20 14:26 BUN 27 mg/dL (7-17) H 04/26/20 14:26 Creatinine 3.3 mg/dL (0.6-1.2) H 04/26/20 14:26 Estimated GFR 15 ml/min 04/26/20 14:26 BUN/Creatinine Ratio 8 % 04/26/20 14:26 Glucose 316 mg/dL (65-100) H 04/26/20 14:26 POC Glucose 304 mg/dL (70-105) H 04/27/20 13:01 Lactic Acid 1.30 mmol/L (0.7-2.0) 04/27/20 14:40 Calcium 9.3 mg/dL (8.4-10.2) 04/26/20 14:26 Phosphorus 3.00 mg/dL (2.5-4.5) 04/17/20 05:44 Magnesium 2.00 mg/dL (1.7-2.3) 04/17/20 05:44 Ferritin 743.0 ng/mL (10.0-200.0) H 04/07/20 09:34 Total Bilirubin 0.30 mg/dL (0.1-1.2) 04/23/20 08:26 Direct Bilirubin < 0.2 mg/dL (0-0.2) 04/23/20 08:26 Indirect Bilirubin 0.1 mg/dL 04/23/20 08:26 AST 15 units/L (5-40) 04/23/20 08:26 ALT 10 units/L (7-56) 04/23/20 08:26 Alkaline Phosphatase 308 units/L (35-129) H 04/23/20 08:26 Ammonia 43.0 umol/L (25-60) 04/06/20 14:30 Lactate Dehydrogenase 195 units/L (91-180) H 04/07/20 09:34 Total Creatine Kinase 23 units/L (30-135) L 04/06/20 14:30 Total Creatine Kinase 24 units/L (30-135) L 04/06/20 14:30 Troponin T 0.224 ng/mL (0.00-0.029) H* 04/06/20 14:30 C-Reactive Protein 7.50 mg/dL (0.00-1.30) H 04/07/20 09:34 Total Protein 8.2 g/dL (6.3-8.2) 04/23/20 08:26 Albumin 3.2 g/dL (3.9-5) L 04/23/20 08:26 Albumin/Globulin Ratio 0.6 % 04/23/20 08:26 Triglycerides 342 mg/dL (2-149) H 04/06/20 14:30 Cholesterol 223 mg/dL (50-199) H 04/06/20 14:30 LDL Cholesterol Direct 123 mg/dL (50-130) 04/06/20 14:30 HDL Cholesterol 35 mg/dL (40-59) L 04/06/20 14:30 Cholesterol/HDL Ratio 6.37 % 04/06/20 14:30 Procalcitonin 1.50 ng/mL (<0.15) 04/26/20 14:26 TSH 1.320 mlU/mL (0.270-4.200) 04/06/20 14:30 HCG, Qual Negative (Negative) 04/06/20 14:30 Arterial Blood Glucose 276 mg/dL (65-95) H 04/27/20 04:46 Arterial Blood Ionized Calcium 4.8 mg/dL (4.6-5.3) 04/27/20 04:46 Urine Color Yellow (Yellow) 04/06/20 13:34 Urine Turbidity Turbid (Clear) 04/06/20 13:34 Urine pH 7.0 (5.0-7.0) 04/06/20 13:34 Ur Specific Jerome 1.017 (1.003-1.030) 04/06/20 13:34 Urine Protein 100 mg/dl mg/dL (Negative) 04/06/20 13:34 Urine Glucose (UA) 50 mg/dL (Negative) 04/06/20 13:34 Urine Ketones Tr mg/dL (Negative) 04/06/20 13:34 Urine Blood Sm (Negative) 04/06/20 13:34 Urine Nitrite Neg (Negative) 04/06/20 13:34 Urine Bilirubin Neg (Negative) 04/06/20 13:34 Urine Urobilinogen < 2.0 mg/dL (<2.0) 04/06/20 13:34 Ur Leukocyte Esterase Mod (Negative) 04/06/20 13:34 Urine WBC (Auto) > 182.0 /HPF (0.0-6.0) H 04/06/20 13:34 Urine RBC (Auto) 49.0 /HPF (0.0-6.0) 04/06/20 13:34 U Epithel Cells (Auto) 6.0 /HPF (0-13.0) 04/06/20 13:34 Urine Bacteria (Auto) 2+ /HPF (Negative) 04/06/20 13:34 Urine WBC Clumps 3+ /HPF 04/06/20 13:34 Urine Mucus 3+ /HPF 04/06/20 13:34 Salicylates < 0.3 mg/dL (2.8-20.0) L 04/06/20 14:30 Acetaminophen 5.0 ug/mL (10.0-30.0) L 04/06/20 14:30 Plasma/Serum Alcohol < 0.01 % (0-0.07) 04/06/20 14:30 Coronavirus (PCR) Negative (Negative) 04/07/20 Unknown Hepatitis A IgM Ab Non-reactive (NonReactive) 04/07/20 16:38 Hep Bs Antigen Non-reactive (Negative) 04/07/20 16:38 Hep B Core IgM Ab Non-reactive (NonReactive) 04/07/20 16:38 Hepatitis C Antibody Reactive (NonReactive) A 04/07/20 16:38 Hepatitis C RNA Quant See scanned result 04/15/20 04:52 Blood Type O POSITIVE 04/06/20 14:30 Antibody Screen Negative 04/06/20 14:30 Microbiology: Microbiology 04/26/20 Unknown Tracheal Aspirate Sputum Culture - Final Bains/IV: Voiding Method Incontinent IV Catheter Type [Left Upper Peripheral IV arm] IV Catheter Type [Right Hand] Peripheral IV IV Catheter Type [Left Forearm INT / Saline Lock ] IV Catheter Type [Right VAS Cath Subclavian] IV Catheter Type [Left INT / Saline Lock Antecubital] IV Catheter Type [Right INT / Saline Lock Forearm] Active Medications - Current Medications Current Medications: Generic Name Dose Route Start Last Admin Trade Name Freq PRN Reason Stop Dose Admin Acetaminophen 650 mg 04/06/20 16:39 Tylenol PO Q6H PRN Pain, Mild (1-3) Albuterol 2.5 mg 04/27/20 09:00 Proventil IH Q4HRT PRN Shortness Of Breath Lipase/Protease/Amylase 1 each 04/26/20 16:00 Jeremy Reyes 10,500 Unit FEEDTUBE PRN PRN For Clogged Feeding Tube Aripiprazole 5 mg 04/23/20 10:00 04/26/20 10:08 Aripiprazole PO Not Given DAILY NOEL Calcium Acetate 667 mg 04/22/20 17:00 04/27/20 13:06 Phoslo PO 667 mg TIDWM NOEL Administration Carvedilol 6.25 mg 04/13/20 22:00 04/27/20 10:14 Coreg PO 6.25 mg BID NOEL Administration Clonidine HCl 0.1 mg 04/25/20 08:00 04/25/20 11:10 Catapres-Tts Patch TD Not Given Tu NOEL Dextrose 50 ml 04/09/20 16:30 D50w (25gm) Syringe IV Q30MIN PRN Hypoglycemia Protocol Docusate Sodium 100 mg 04/22/20 12:17 Colace PO Q12H PRN Constipation Fentanyl 50 mcg 04/26/20 13:00 Sublimaze IV Q10MIN PRN ANALGESIA Heparin Sodium (Porcine) 5,000 unit 04/06/20 22:00 04/27/20 10:15 Heparin SUB-Q 5,000 unit Q12HR NOEL Administration Hydromorphone HCl 1 mg 04/18/20 14:22 04/25/20 03:35 Dilaudid IV 1 mg Q4H PRN Administration Pain , Severe (7-10) Hydrophilic Ointment 1 applic 04/06/20 13:34 Vaseline Lip Therapy TP Q2HR PRN Dry Lips Sodium Chloride 100 mls @ 999 mls/hr 04/07/20 17:00 Nacl 0.9% IV SPRING PRN Hypotension Dextrose/Sodium Chloride 1,000 mls @ 42 mls/hr 04/20/20 13:00 04/26/20 07:19 D5ns IV 42 mls/hr DIRECT NOEL Administration Fentanyl Citrate 2,000 mcg in 100 mls @ 5.505 mls/hr 04/26/20 13:00 Fentanyl Drip Premix IV TITR NOEL Protocol 1 MCG/KG/HR Insulin Glargine 10 units 04/17/20 10:00 04/27/20 10:15 Lantus SUB-Q 10 units Q24HR NOEL Administration Insulin Human Regular 0 unit 04/09/20 18:00 04/27/20 13:01 Humulin R SUB-Q 4 unit Q6H NOEL Administration Protocol Labetalol HCl 10 mg 04/08/20 17:17 04/24/20 22:37 Labetalol IV 10 mg Q4H PRN Administration Blood Pressure Lansoprazole 30 mg 04/26/20 14:00 04/27/20 10:14 Prevacid Solutab FEEDTUBE 30 mg QDAY NOEL Administration Losartan Potassium 25 mg 04/22/20 15:00 04/27/20 10:15 Cozaar PO 25 mg QDAY NOEL Administration Midodrine 10 mg 04/27/20 14:15 Proamatine PO TID NOEL Multi-Ingred Cream/Lotion/Oil/Oint 1 applic 04/06/20 13:34 Artificial Tears Ophth Oint OU Q4HR PRN Dry Eye(s) Multivitamins 5 ml 04/27/20 11:00 04/27/20 13:00 Centrum Liq PO 5 ml QDAY NOEL Administration Ondansetron HCl 4 mg 04/18/20 07:45 04/22/20 15:14 Zofran IV 4 mg Q4H PRN Administration Nausea And Vomiting Simple Syrup 15 ml 04/26/20 16:00 Simple Syrup FEEDTUBE PRN PRN Hypoglycemia Simple Syrup 30 ml 04/26/20 16:00 Simple Syrup FEEDTUBE PRN PRN Hypoglycemia Sodium Bicarbonate 325 mg 04/26/20 16:00 Sodium Bicarbonate FEEDTUBE PRN PRN For Clogged Feeding Tube Sodium Chloride 10 ml 04/06/20 22:00 04/27/20 10:16 Sodium Chloride Flush Syringe 10 Ml IV 10 ml BID NOEL Administration Sodium Chloride 10 ml 04/06/20 16:32 04/25/20 03:36 Sodium Chloride Flush Syringe 10 Ml IV 10 ml PRN PRN Administration LINE FLUSH Nutrition/Malnutrition Assess - Dietary Evaluation Nutrition/Malnutrition Findings: Nutrition Notes Start: 04/07/20 08:19 Freq: Status: Active Protocol: Document 04/26/20 15:29 (Rec: 04/26/20 15:36 MK [id number]) Nutrition Notes Initial or Follow up Brief Note Current Diagnosis CKD (stage V CKD),Diabetes, Hypertension,Stroke Other Pertinent Diagnosis on HD, bilateral BKA, AMS Current Diet NPO Labs/Tests Na 135 BUN 27 Cr 3.3 BG 316 Pertinent Medications Reviewed Height 5 ft 5 in Weight 110.1 kg [place] Body Weight (kg) 56.81 BMI 40.4 Weight Status Obese Subjective/Other Information MD consult for TF. Pt was reintubated after code blue. Pt did not receivce PEG. Percent of energy/protein needs met: 0%/0% Burn Absent Trauma Absent Current % PO Negligible Minimum of two criteria No physical signs of malnutrition #1 Nutrition Diagnosis Inadequate oral intake Diagnosis Progress(for reassessment Continues documentation) Is patient on ventilator? No Is Patient Ambulatory and/or Out of Bed No REE-([facility]-confined to bed) 3.820 Kcal/Kg value to use for calculation 16 Approximate Energy Requirements Using 1762 kcal/Kg Calculation Used for Recommendations Kcal/kg Additional Notes Protein Needs: up to 142 g (up to 2.5 g/kg IBW) Fluid Needs: 1 mL/kcal Nutrition Intervention Change Diet Order: Start TF Nutrition Support: Nepro 1.8 at 45 mL/hr (goal rate) Flush 200 mL q4h Kcal 1,944 Protein (gm) 87 Fluid (mL) 785 Goal #1 Meet at least 75% of protein and energy needs via TF Anticipated Discharge Needs: Unable to determine at this time Follow-Up By: 04/28/20 Additional Comments FU for TF start/tolerance
[2020-04-28] MEDS: INSULIN REGULAR, HUMAN 100 UNIT/ML 3ML VIAL SUB-Q SCH ×3 (06:11→18:48)
[2020-04-28 06:16] LABS: Hematocrit 32.8 % (30.3-42.9); Hemoglobin 10.3 gm/dl (10.1-14.3); Mean Corpuscular HGB Conc 31 % (30-34); Mean Corpuscular Volume 88 fl (79-97); Platelet Count 314 K/mm3 (140-440); Red Blood Count 3.73 M/mm3 (3.65-5.03)
[2020-04-28 06:18] LABS: Basophils # (Auto) 0.1 K/mm3 (0.0-0.1); Basophils % (Auto) 0.3 % (0.0-1.8); Eosinophils # (Auto) 0.4 K/mm3 (0.0-0.4); Lymphocytes # (Auto) 3.9 K/mm3 (1.2-5.4); Lymphocytes % (Auto) 10.9 % (13.4-35.0); Monocytes # (Auto) 2.1 K/mm3 (0.0-0.8); Monocytes % (Auto) 5.9 % (0.0-7.3)
[2020-04-28 06:44] LABS: Calcium 9.2 mg/dL (8.4-10.2)
[2020-04-28] MEDS ORDERED: LORazepam 2 MG/ML VIAL ONE (08:00)
[2020-04-28] MEDS ORDERED: LORazepam 2 MG/ML VIAL IV ONE (08:00)
--- NOTE | 2020-04-28 09:40 | Progress Note ---
Assessment and Plan Assessment and plan: 49 years old female with history of asthma, hypertension, end-stage renal disease on hemodialysis, diabetes mellitus, bipolar disorder, morbid obesity, CVA, resident of a long term, admitted on 04/06/2020 secondary to be found Unresponsiveness after hemodialysis. Patient is unable to provide history, currently intubated. Patient received hemodialysis and after completion she became unresponsive. Upon EMS arrival, blood pressure was 90/60, HR 88, temperature 97.2. Per records, patient was not complaining of any symptoms. On arrival, temperature 94.1, HR 66, RR 18, O2 sat 87%, BP 131/111. Initial WBC 19.2. Urinalysis showed more than 182 WBCs and moderate leukocyte esterase. Chest x-ray shows bibasilar infiltrates. Patient was intubated in the emergency room to protect airway. Bains catheter was placed yielding purulent urine. Severe sepsis. Present on admission with hypothermia, leukocytosis, altered mental status, likely due to bilateral pneumonia. F/U Blood Cx. Cont. Abx pre ID Bilateral pneumonia. Aspiration pneumonia/HAP illness induced Gastroparesis: Stable Severe UTI. Bains catheter with purulent urine. Acute hypoxemic and hypercapnic respiratory failure. Intubated for airway protection, O2 sats down to 87%. Acute toxic metabolic encephalopathy. Etiology secondary to sepsis Bibasilar atelectasis, End-stage renal disease on hemodialysis Anemia of chronic renal disease vancomycin allergy ? Causing hives. PER ID documentation at other hosptial does not show vanc allergy Chronic leukocytosis, appears so based on review of records from here and [facility] in the past were reviewed. Chronic Hepatitis C: treatment status unknown. F/U HCV RNA PCR. Extensive Candidal intertrigo in groin and vagina. Cont. Fluconazole Intractable nausea with vomiting. 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 Patient remains intubated on mechanical ventilation with AC mode ventilation rate 12, tidal volume 450, FiO2 40% and a PEEP of 6. Continue weaning per protocols. Patient with ESRD and continue TTS schedule per nephrology. Patient does have a history of COVID-19 infection(01/07/20) but negative testing April 07. Follow-up blood/urine/sputum culture. Continue antibiotics per ID recommendations. 04/09/2020. Patient not tolerating PSV 12/6 with FiO2 of 30%. Continue hemod ialysis per nephrology recommendations. Continue IV antibiotics per ID recommendations. Blood cultures no growth to date. Respiratory therapy reports patient with accelerated hypertension and apneic episodes on PSV ventilation. Await pulmonary recommendations. 04/10/2020. Patient remains on mechanical ventilation AC mode rate 12, tidal volume 450, FiO2 30% and a PEEP of 6. Continue PSV trials per protocols. Continue hemodialysis per nephrology recommendations. Continue anti-infectives of fluconazole and cefepime. Follow-up blood/urine/sputum culture. ID, pulmonary and nephrology following. 04/11/2020; patient remains on mechanical ventilation AC mode rate 12, tidal volume 450, FiO2 of 30 and PEEP of 6. Continue PSV trials per protocols. continue hemodialysis per nephrology. ID changed antibiotics to meropenem. Blood culture grew staph epidermidis likey contaminant. 04/12/2020; patient is intubated, patient open eyes spontaneously. Neurology consulted and continue on replacement treatment. EEG is pending. Recommend MRI. Patient is on meropenem per ID recommendation. Pulmonary is following. Patient is on spontaneous breathing trial 04/13/2020; patient is intubated. Patient's blood pressure was high yesterday, amlodipine and hydralazine was added. Overnight his blood pressure was low and will also BP medications. We will continue to follow. 04/14/2020; patient is intubated and blood pressure is on the low side of normal. Patient is on meropenem 5/5. 04/15/2020; patient is intubated, on spontaneous breathing trial. Pulmonary is following. neurology recommend MRI. 04/16/2020; patient is intubated, on spontaneous breathing trial. Pulmonary is following. Neurology recommend MRI once stable. 04/17: Patient showing some clinical improvement. MRI still pending. Continues on restraints weaning trial today. Antibiotics per ID continue aspiration precautions although management by critical care physician. Noted elevated D- dimer level with trend. See ultrasound of the lower extremity was negative for DVT. Prior hospitalization showed elevated D-dimer also. Will discuss with nephrology if patient needs CTA to see if this can be managed with dialysis. This will be done if patient is unable to wean from the vent due to hypoxia. 04/18: Patient required re-intubation last night due to self extubation and decompensation with hypoxia. CXR post extubation showed tube in expected position. Patient also noted to have large projectile vomiting. - Obtain KUB - start Zofran - Hold tube feeds - May benefit from GI eval if vomiting continues. - She is currently being treated for Aspiration Pneumonia with bactermia and Acute cystitis 04/19: Now extubated, Continue supportive care and aspiration precautions. Patient complaining of chronic pain, will resume home dose pain meds and avoid oversedation. No new seizure noted. still awaiting MRI brain. GI input noted: illness induced gastropoaresis, otherwise KUB and LFT normal, will start low fat fiber diet once patient able to tolerate PO. Continue to monitor WBC, increased again today. out patient [employer]. Unless indicated by Intesivist will like to monitor patient in the ICU for additional 24 hrs before downgrading. 04/20: CONTINUE Aspiration precautions, started on D5NS for low Blood glucose. Speech re-eval today. PAIN CONTROL 04/21: Continue aspiration precautions. Blood sugar stable continue to monitor WBC count. Will reassess with speech evaluation continue restraints due to aggressive behavior towards nurses and pulling on shelving. Monitor mental status. 04/22: patient complains of nasuea, will start on Reglan IV prn. CONTINUE supportive care. 04/23: Patient continues on restraints. She tells me that she has a history of Gastroparesis. Will start IV reglan., check ct abdomen and pelvis. repeat speech eval and may need PEG if still not tolerating Diet. She will benefit from a environmental health safety engineer 04/24: Awaiting repeat speech evaluation. Office summary patient was admitted on 04/06/2020 with unresponsiveness after hemodialysis and no long term resident and also with noted-gastroparesis. Patient was treated for fluid overload also with some antibiotics including antifungal. Cultures were unremarkable. CT of the abdomen repeated yesterday showed some perinephric stranding with patchy bibasilar airspace disease concerning for pneumonia. Will place empirically on Keflex. And monitor closely. If patient passes swallow evaluation can work on discharge back to long term tomorrow if not GI should be consulted for possible PEG placement. Mental status is improving. 04/25: patient remains lethergic, has failed swallow eval, has chronic Gastroparesis and also persistent Encephalopathy, will plan for PEG tube placement [facility]. 04/26: Patient reintubated today due to agonal breathing with altered sensorium while a CODE BLUE was called did not require CPR. Will obtain a EEG, CT of the head, echocardiogram if this has not been done. I have discussed with family and updated them about her prognosis considering recurrent readmission. Patient was planned for PEG tube but this has been put on hold at this time. 04/27: Remains on full mechanical support continue current management. 04/28: Patient continues to exhibit some exacerbation of metabolic encephalopathy with altered sensorium during dialysis recurrent agitation and agonal breathing. Will obtain neurological evaluation. We will also obtain a chest x-ray. Patient may also benefit from a cardiac evaluation. The high probability of a clinically significant, sudden or life threatening deterioration of the [pulmonary, neurology, renal] system(s) required my full and direct attention, intervention and personal management. The aggregate critical care time was [35] minutes. This time is in addition to time spent performing reported procedures but includes the following: [X] Data Review and interpretation [X] Patient assessment and monitoring of vital signs [X] Documentation [X] Medication orders and management History Interval history: Patient seen and examined, remains in the ICU with mechanical ventilation, according to nursing staff did wake up and follow commands but was very agitated. This also happened during dialysis. Hospitalist Physical - Physical exam Narrative exam: VITAL SIGNS: Reviewed. GENERAL: The patient appears normally developed, reintubated vital signs as documented. HEAD: No signs of head trauma. EYES: Pupils are equal. EARS: Unable to examine MOUTH: Oropharynx is normal. face mask on. NECK: No adenopathy, no JVD. CHEST: Chest with t diminished breath sounds bilaterally. No wheezes, rales, or rhonchi. CARDIAC: Regular rate and rhythm. S1 and S2, without murmurs, gallops, or rubs. VASCULAR: No Edema. Peripheral pulses normal and equal in all extremities. ABDOMEN: Soft, non tender and non distended. No rebound or guarding, and no masses palpated. Bowel Sounds normal. MUSCULOSKELETAL: Bilateral BKA NEUROLOGIC EXAM: Awake, lethargic confused. PSYCHIATRIC: Unable to examine SKIN: detail exam as documented in skin assessment - Constitutional Vitals: Temp Pulse Resp BP Pulse Ox 99.6 F 122 H 30 H 147/92 99 04/28/20 03:29 04/28/20 08:01 04/28/20 08:01 04/28/20 08:01 04/28/20 08:01 General appearance: Present: severe distress, other (Intubated on mechanical ventilation) HEART Score - HEART Score Troponin: Troponin T 0.224 ng/mL (0.00-0.029) H* 04/06/20 14:30 Results - Labs CBC & Chem 7: 04/28/20 05:52 04/28/20 05:52 Labs: Laboratory Last Values WBC 35.7 K/mm3 (4.5-11.0) H 04/28/20 05:52 RBC 3.73 M/mm3 (3.65-5.03) 04/28/20 05:52 Hgb 10.3 gm/dl (10.1-14.3) 04/28/20 05:52 Hct 32.8 % (30.3-42.9) D 04/28/20 05:52 MCV 88 fl (79-97) 04/28/20 05:52 MCH 28 pg (28-32) 04/28/20 05:52 MCHC 31 % (30-34) 04/28/20 05:52 RDW 16.0 % (13.2-15.2) H 04/28/20 05:52 Plt Count 314 K/mm3 (140-440) 04/28/20 05:52 Lymph % (Auto) 10.9 % (13.4-35.0) L 04/28/20 05:52 Millard % (Auto) 5.9 % (0.0-7.3) 04/28/20 05:52 Eos % (Auto) 1.0 % (0.0-4.3) 04/28/20 05:52 Baso % (Auto) 0.3 % (0.0-1.8) 04/28/20 05:52 Lymph # (Auto) 3.9 K/mm3 (1.2-5.4) 04/28/20 05:52 Millard # (Auto) 2.1 K/mm3 (0.0-0.8) H 04/28/20 05:52 Eos # (Auto) 0.4 K/mm3 (0.0-0.4) 04/28/20 05:52 Baso # (Auto) 0.1 K/mm3 (0.0-0.1) 04/28/20 05:52 Add Manual Diff Complete 04/26/20 14:26 Total Counted 100 04/26/20 14:26 Seg Neutrophils % 81.9 % (40.0-70.0) H 04/28/20 05:52 Seg Neuts % (Manual) 84.0 % (40.0-70.0) H 04/26/20 14:26 Band Neutrophils % 0 % 04/26/20 14:26 Lymphocytes % (Manual) 7.0 % (13.4-35.0) L 04/26/20 14:26 Reactive Lymphs % (Man) 0 % 04/26/20 14:26 Monocytes % (Manual) 8.0 % (0.0-7.3) H 04/26/20 14:26 Eosinophils % (Manual) 1.0 % (0.0-4.3) 04/26/20 14:26 Basophils % (Manual) 0 % (0.0-1.8) 04/26/20 14:26 Metamyelocytes % 0 % 04/26/20 14:26 Myelocytes % 0 % 04/26/20 14:26 Promyelocytes % 0 % 04/26/20 14:26 Blast Cells % 0 % 04/26/20 14:26 Nucleated RBC % Not Reportable 04/26/20 14:26 Seg Neutrophils # 29.2 K/mm3 (1.8-7.7) H 04/28/20 05:52 Seg Neutrophils # Man 28.5 K/mm3 (1.8-7.7) H 04/26/20 14:26 Band Neutrophils # 0.0 K/mm3 04/26/20 14:26 Lymphocytes # (Manual) 2.4 K/mm3 (1.2-5.4) 04/26/20 14:26 Abs React Lymphs (Man) 0.0 K/mm3 04/26/20 14:26 Monocytes # (Manual) 2.7 K/mm3 (0.0-0.8) H 04/26/20 14:26 Eosinophils # (Manual) 0.3 K/mm3 (0.0-0.4) 04/26/20 14:26 Basophils # (Manual) 0.0 K/mm3 (0.0-0.1) 04/26/20 14:26 Metamyelocytes # 0.0 K/mm3 04/26/20 14:26 Myelocytes # 0.0 K/mm3 04/26/20 14:26 Promyelocytes # 0.0 K/mm3 04/26/20 14:26 Blast Cells # 0.0 K/mm3 04/26/20 14:26 WBC Morphology Not Reportable 04/26/20 14:26 Hypersegmented Neuts Not Reportable 04/26/20 14:26 Hyposegmented Neuts Not Reportable 04/26/20 14:26 Hypogranular Neuts Not Reportable 04/26/20 14:26 Smudge Cells Not Reportable 04/26/20 14:26 Toxic Granulation Not Reportable 04/26/20 14: Toxic Vacuolation Not Reportable 04/26/20 14:26 Dohle Bodies Not Reportable 04/26/20 14:26 Pelger-Huet Anomaly Not Reportable 04/26/20 14:26 Stephanie Rods Not Reportable 04/26/20 14: Platelet Estimate Not Reportable 04/26/20 14:26 Clumped Platelets Not Reportable 04/26/20 14:26 Plt Clumps, EDTA Not Reportable 04/26/20 14: Large Platelets Not Reportable 04/26/20 14: Giant Platelets Not Reportable 04/26/20 14:26 Platelet Satelliting Not Reportable 04/26/20 14: Plt Morphology Comment Not Reportable 04/26/20 14: RBC Morphology Normal 04/26/20 14:26 Dimorphic RBCs Not Reportable 04/26/20 14:26 Polychromasia Not Reportable 04/26/20 14:26 Hypochromasia Not Reportable 04/26/20 14:26 Poikilocytosis Not Reportable 04/26/20 14:26 Anisocytosis Not Reportable 04/26/20 14:26 Microcytosis Not Reportable 04/26/20 14: Macrocytosis Not Reportable 04/26/20 14: Spherocytes Not Reportable 04/26/20 14:26 Pappenheimer Bodies Not Reportable 04/26/20 14:26 Sickle Cells Not Reportable 04/26/20 14:26 Target Cells Not Reportable 04/26/20 14:26 Tear Drop Cells Not Reportable 04/26/20 14:26 Ovalocytes Not Reportable 04/26/20 14:26 Stomatocytes Few 04/12/20 08:14 Helmet Cells Not Reportable 04/26/20 14:26 Barroso-Lott Bodies Not Reportable 04/26/20 14:26 Coventry Rings Not Reportable 04/26/20 14:26 Osgood Cells Not Reportable 04/26/20 14:26 Bite Cells Not Reportable 04/26/20 14:26 Crenated Cell Not Reportable 04/26/20 14:26 Elliptocytes Not Reportable 04/26/20 14:26 Acanthocytes (Spur) Not Reportable 04/26/20 14:26 Rouleaux Not Reportable 04/26/20 14:26 Hemoglobin C Crystals Not Reportable 04/26/20 14:26 Schistocytes Not Reportable 04/26/20 14:26 Malaria parasites Not Reportable 04/26/20 14:26 Lc Bodies Not Reportable 04/26/20 14:26 Hem Pathologist Commnt No 04/26/20 14:26 PT 13.4 Sec. (12.2-14.9) 04/25/20 14:19 INR 1.04 (0.87-1.13) 04/25/20 14:19 APTT 28.1 Sec. (24.2-36.6) 04/06/20 14:30 D-Dimer 1144.77 ng/mlDDU (0-234) H 04/18/20 06:48 ABG pH 7.391 (7.320-7.450) 04/28/20 04:12 POC ABG pCO2 32.7 mmHg (32.0-48.0) 04/28/20 04:12 ABG pCO2 54.0 mm Hg 04/11/20 03:44 POC ABG pO2 105.4 mmHg (83-108) 04/28/20 04:12 ABG pO2 73.4 mm Hg (80.0-90.0) L 04/11/20 03:44 POC ABG HCO3 19.4 04/28/20 04:12 ABG HCO3 26.7 mmol/L (20.0-26.0) H 04/11/20 03:44 ABG O2 Saturation 95.0 % (95.0-99.0) 04/11/20 03:44 ABG O2 Content 14.4 (0.0-44) 04/11/20 03:44 POC ABG Base Excess -4.8 04/28/20 04:12 ABG Base Excess -0.1 mmol/L (-2.0-3.0) 04/11/20 03:44 ABG Hemoglobin 10.7 (12.0-17.5) L 04/28/20 04:12 ABG Oxyhemoglobin 92.0 (94-98) L 04/18/20 03:23 ABG Carboxyhemoglobin 1.6 % (0.0-5.0) 04/11/20 03:44 ABG Methemoglobin 0.3 (0.0-1.5) 04/18/20 03:23 ABG Sodium 133.2 mmol/L (136.0-145.0) L 04/28/20 04:12 ABG Potassium 3.6 mmol/L (3.40-4.50) 04/28/20 04:12 ABG Chloride 100.0 mmol/L (98-107) 04/28/20 04:12 ABG Glucose 322 mg/dL (65-95) H 04/28/20 04:12 Oxyhemoglobin 92.8 % (95.0-99.0) L 04/11/20 03:44 Carboxyhemoglobin 0.6 (0.5-1.5) 04/18/20 03:23 FiO2 50 04/28/20 04:12 Sodium 134 mmol/L (137-145) L 04/28/20 05:52 Potassium 3.8 mmol/L (3.6-5.0) 04/28/20 05:52 Chloride 96.4 mmol/L (98-107) L 04/28/20 05:52 Carbon Dioxide 20 mmol/L (22-30) L 04/28/20 05:52 Anion Gap 21 mmol/L 04/28/20 05:52 BUN 62 mg/dL (7-17) H 04/28/20 05:52 Creatinine 5.1 mg/dL (0.6-1.2) H D 04/28/20 05:52 Estimated GFR 9 ml/min 04/28/20 05:52 BUN/Creatinine Ratio 12 % 04/28/20 05:52 Glucose 371 mg/dL (65-100) H 04/28/20 05:52 POC Glucose 315 mg/dL (70-105) H 04/28/20 04:54 Lactic Acid 1.30 mmol/L (0.7-2.0) 04/27/20 14:40 Calcium 9.2 mg/dL (8.4-10.2) 04/28/20 05:52 Phosphorus 3.00 mg/dL (2.5-4.5) 04/17/20 05:44 Magnesium 2.00 mg/dL (1.7-2.3) 04/17/20 05:44 Ferritin 743.0 ng/mL (10.0-200.0) H 04/07/20 09:34 Total Bilirubin 0.20 mg/dL (0.1-1.2) 04/28/20 05:52 Direct Bilirubin < 0.2 mg/dL (0-0.2) 04/23/20 08:26 Indirect Bilirubin 0.1 mg/dL 04/23/20 08:26 AST 11 units/L (5-40) 04/28/20 05:52 ALT 9 units/L (7-56) 04/28/20 05:52 Alkaline Phosphatase 260 units/L (35-129) H 04/28/20 05:52 Ammonia 30.0 umol/L (25-60) 04/27/20 18:52 Lactate Dehydrogenase 195 units/L (91-180) H 04/07/20 09:34 Total Creatine Kinase 23 units/L (30-135) L 04/06/20 14:30 Total Creatine Kinase 24 units/L (30-135) L 04/06/20 14:30 Troponin T 0.224 ng/mL (0.00-0.029) H* 04/06/20 14:30 C-Reactive Protein 7.50 mg/dL (0.00-1.30) H 04/07/20 09:34 Total Protein 7.5 g/dL (6.3-8.2) 04/28/20 05:52 Albumin 3.0 g/dL (3.9-5) L 04/28/20 05:52 Albumin/Globulin Ratio 0.7 % 04/28/20 05:52 Triglycerides 342 mg/dL (2-149) H 04/06/20 14:30 Cholesterol 223 mg/dL (50-199) H 04/06/20 14:30 LDL Cholesterol Direct 123 mg/dL (50-130) 04/06/20 14:30 HDL Cholesterol 35 mg/dL (40-59) L 04/06/20 14:30 Cholesterol/HDL Ratio 6.37 % 04/06/20 14:30 Procalcitonin 1.50 ng/mL (<0.15) 04/26/20 14:26 TSH 1.320 mlU/mL (0.270-4.200) 04/06/20 14:30 HCG, Qual Negative (Negative) 04/06/20 14:30 Arterial Blood Glucose 322 mg/dL (65-95) H 04/28/20 04:12 Arterial Blood Ionized Calcium 4.7 mg/dL (4.6-5.3) 04/28/20 04:12 Urine Color Yellow (Yellow) 04/06/20 13:34 Urine Turbidity Turbid (Clear) 04/06/20 13:34 Urine pH 7.0 (5.0-7.0) 04/06/20 13:34 Ur Specific [place] 1.017 (1.003-1.030) 04/06/20 13:34 Urine Protein 100 mg/dl mg/dL (Negative) 04/06/20 13:34 Urine Glucose (UA) 50 mg/dL (Negative) 04/06/20 13:34 Urine Ketones Tr mg/dL (Negative) 04/06/20 13:34 Urine Blood Sm (Negative) 04/06/20 13:34 Urine Nitrite Neg (Negative) 04/06/20 13:34 Urine Bilirubin Neg (Negative) 04/06/20 13:34 Urine Urobilinogen < 2.0 mg/dL (<2.0) 04/06/20 13:34 Ur Leukocyte Esterase Mod (Negative) 04/06/20 13:34 Urine WBC (Auto) > 182.0 /HPF (0.0-6.0) H 04/06/20 13:34 Urine RBC (Auto) 49.0 /HPF (0.0-6.0) 04/06/20 13:34 U Epithel Cells (Auto) 6.0 /HPF (0-13.0) 04/06/20 13:34 Urine Bacteria (Auto) 2+ /HPF (Negative) 04/06/20 13:34 Urine WBC Clumps 3+ /HPF 04/06/20 13:34 Urine Mucus 3+ /HPF 04/06/20 13:34 Salicylates < 0.3 mg/dL (2.8-20.0) L 04/06/20 14:30 Acetaminophen 5.0 ug/mL (10.0-30.0) L 04/06/20 14:30 Plasma/Serum Alcohol < 0.01 % (0-0.07) 04/06/20 14:30 Coronavirus (PCR) Negative (Negative) 04/07/20 Unknown Hepatitis A IgM Ab Non-reactive (NonReactive) 04/07/20 16:38 Hep Bs Antigen Non-reactive (Negative) 04/07/20 16:38 Hep B Core IgM Ab Non-reactive (NonReactive) 04/07/20 16:38 Hepatitis C Antibody Reactive (NonReactive) A 04/07/20 16:38 Hepatitis C RNA Quant See scanned result 04/15/20 04:52 Blood Type O POSITIVE 04/06/20 14:30 Antibody Screen Negative 04/06/20 14:30 Microbiology: Microbiology 04/27/20 14:40 Peripheral/Venous Blood Culture - Preliminary Culture in Progress 04/27/20 14:40 Peripheral/Venous Blood Culture - Preliminary Culture in Progress 04/26/20 Unknown Tracheal Aspirate Sputum Culture - Final Bains/IV: Voiding Method Incontinent IV Catheter Type [Left Upper Peripheral IV arm] IV Catheter Type [Right Hand] Peripheral IV IV Catheter Type [Left Forearm INT / Saline Lock ] IV Catheter Type [Right VAS Cath Subclavian] IV Catheter Type [Left INT / Saline Lock Antecubital] IV Catheter Type [Right INT / Saline Lock Forearm] Active Medications - Current Medications Current Medications: Generic Name Dose Route Start Last Admin Trade Name Freq PRN Reason Stop Dose Admin Acetaminophen 650 mg 04/06/20 16:39 Tylenol PO Q6H PRN Pain, Mild (1-3) Albuterol 2.5 mg 04/27/20 09:00 Proventil IH Q4HRT PRN Shortness Of Breath Lipase/Protease/Amylase 1 each 04/26/20 16:00 Pancreshadi Reyes 10,500 Unit FEEDTUBE PRN PRN For Clogged Feeding Tube Aripiprazole 5 mg 04/23/20 10:00 04/27/20 14:00 Aripiprazole PO 5 mg DAILY NOEL Administration Calcium Acetate 667 mg 04/22/20 17:00 12/03/20 18:24 Phoslo PO 667 mg TIDWM NOEL Administration Carvedilol 6.25 mg 04/13/20 22:00 04/27/20 22:02 Coreg PO 6.25 mg BID NOEL Administration Clonidine HCl 0.1 mg 04/25/20 08:00 04/25/20 11:10 Catapres-Tts Patch TD Not Given [facility] Dextrose 50 ml 04/09/20 16:30 D50w (25gm) Syringe IV Q30MIN PRN Hypoglycemia Protocol Docusate Sodium 100 mg 04/22/20 12:17 Colace PO Q12H PRN Constipation Fentanyl 50 mcg 04/26/20 13:00 Sublimaze IV Q10MIN PRN ANALGESIA Heparin Sodium (Porcine) 5,000 unit 04/06/20 22:00 04/27/20 22:01 Heparin SUB-Q 5,000 unit Q12HR NOEL Administration Hydromorphone HCl 1 mg 04/18/20 14:22 04/25/20 03:35 Dilaudid IV 1 mg Q4H PRN Administration Pain , Severe (7-10) Hydrophilic Ointment 1 applic 04/06/20 13:34 Vaseline Lip Therapy TP Q2HR PRN Dry Lips Sodium Chloride 100 mls @ 999 mls/hr 04/07/20 17:00 Nacl 0.9% IV SPRING PRN Hypotension Fentanyl Citrate 2,000 mcg in 100 mls @ 5.505 mls/hr 04/26/20 13:00 Fentanyl Drip Premix IV TITR [facility] Protocol 1 MCG/KG/HR Insulin Glargine 15 units 04/28/20 10:00 Lantus SUB-Q Q24HR [facility] Insulin Human Regular 0 unit 04/09/20 18:00 04/28/20 06:11 Humulin R SUB-Q 4 unit Q6H [facility] Administration Protocol Labetalol HCl 10 mg 04/08/20 17:17 04/24/20 22:37 Labetalol IV 10 mg Q4H PRN Administration Blood Pressure Lansoprazole 30 mg 04/26/20 14:00 04/27/20 10:14 Prevacid Solutab FEEDTUBE 30 mg QDAY [facility] Administration Losartan Potassium 25 mg 04/22/20 15:00 04/27/20 10:15 Cozaar PO 25 mg QDAY NOEL Administration Midodrine 10 mg 04/27/20 14:15 04/27/20 22:02 Proamatine PO 10 mg TID NOEL Administration Multi-Ingred Cream/Lotion/Oil/Oint 1 applic 04/06/20 13:34 Artificial Tears Ophth Oint OU Q4HR PRN Dry Eye(s) Multivitamins 5 ml 04/27/20 11:00 04/27/20 13:00 Centrum Liq PO 5 ml QDAY NOEL Administration Ondansetron HCl 4 mg 04/18/20 07:45 04/22/20 15:14 Zofran IV 4 mg Q4H PRN Administration Nausea And Vomiting Simple Syrup 15 ml 04/26/20 16:00 Simple Syrup FEEDTUBE PRN PRN Hypoglycemia Simple Syrup 30 ml 04/26/20 16:00 Simple Syrup FEEDTUBE PRN PRN Hypoglycemia Sodium Bicarbonate 325 mg 04/26/20 16:00 Sodium Bicarbonate FEEDTUBE PRN PRN For Clogged Feeding Tube Sodium Chloride 10 ml 04/06/20 22:00 04/27/20 22:05 Sodium Chloride Flush Syringe 10 Ml IV 10 ml BID NOEL Administration Sodium Chloride 10 ml 04/06/20 16:32 04/25/20 03:36 Sodium Chloride Flush Syringe 10 Ml IV 10 ml PRN PRN Administration LINE FLUSH Nutrition/Malnutrition Assess - Dietary Evaluation Nutrition/Malnutrition Findings: Nutrition Notes Start: 04/07/20 08:19 Freq: Status: Active Protocol: Document 04/26/20 15:29 (Rec: 04/26/20 15:36 [id number]) Nutrition Notes Need for Assessment generated from: MD Order Initial or Follow up Reassessment Current Diagnosis CKD (stage V CKD),Diabetes, Hypertension,Stroke Other Pertinent Diagnosis on HD, bilateral BKA, AMS Current Diet NPO Labs/Tests Na 135 BUN 27 Cr 3.3 BG 316 Pertinent Medications Reviewed Height 5 ft 5 in Weight 110.1 kg [place] Body Weight (kg) 56.81 BMI 40.4 Weight Status Obese Subjective/Other Information MD consult for TF. Pt was reintubated after code blue. Pt did not receivce PEG. Percent of energy/protein needs met: 0%/0% Burn Absent Trauma Absent Current % PO Negligible Minimum of two criteria No physical signs of malnutrition #1 Nutrition Diagnosis Inadequate oral intake Diagnosis Progress(for reassessment Continues documentation) Is patient on ventilator? No Is Patient Ambulatory and/or Out of Bed No REE-([facility]-confined to bed) 2063.820 Kcal/Kg value to use for calculation 16 Approximate Energy Requirements Using 1762 kcal/Kg Calculation Used for Recommendations Kcal/kg Additional Notes Protein Needs: up to 142 g (up to 2.5 g/kg IBW) Fluid Needs: 1 mL/kcal Nutrition Intervention Change Diet Order: Start TF Nutrition Support: Nepro 1.8 at 45 mL/hr (goal rate) Flush 200 mL q4h Kcal 1,944 Protein (gm) 87 Fluid (mL) 785 Goal #1 Meet at least 75% of protein and energy needs via TF Anticipated Discharge Needs: Unable to determine at this time Follow-Up By: 04/28/20 Additional Comments FU for TF start/tolerance
[2020-04-28] MEDS: LANSOPRAZOLE 30 MG SOLUTAB FEEDTUBE SCH (09:59)
[2020-04-28] MEDS: MULTIVITAMINS 5 ML ORAL LIQUID PO SCH (09:59)
[2020-04-28] MEDS: MIDODRINE 5 MG TAB PO SCH ×3 (09:59→22:27)
[2020-04-28] MEDS: HEPARIN 5,000 UNIT/1 ML VIAL SUB-Q SCH ×2 (09:59→22:28)
[2020-04-28] MEDS ORDERED: INSULIN GLARGINE 100 UNITS/ML SUB-Q SCH (10:00)
[2020-04-28] MEDS: LOSARTAN 25 MG TAB PO SCH (10:00)
[2020-04-28] MEDS: ARIPiprazole 5 MG TAB PO SCH (10:02)
[2020-04-28] MEDS: CALCIUM ACETATE 667 MG CAP PO SCH ×3 (10:02→17:52)
[2020-04-28] MEDS: INSULIN GLARGINE 100 UNITS/ML SUB-Q SCH (10:04)
--- NOTE | 2020-04-28 10:38 | XRay Report ---
CHEST 1 VIEW INDICATION / CLINICAL INFORMATION: respiratory failure. FINDINGS: SUPPORT DEVICES: The endotracheal tube, right sided perm catheter and esophagogastric tube all projec t in good position.. HEART / MEDIASTINUM: No significant abnormality. LUNGS / PLEURA: Ill-defined airspace density present within the right lung. The left lung is grossly clear. Signer Name: Damian Champion MD Signed: 04/28/2020 10:33 AM Workstation Name: [id number]
--- NOTE | 2020-04-28 13:41 | Progress Note ---
Assessment and Plan Impression: * End stage renal disease * Sepsis * Positive blood cx - likely contaminant --Blood cx: staph epi (05/29 bottles - Apr 06) * Acute hypoxic respiratory failure * Acute encephalopathy * Acute ischemic stroke * UTI * Hx of COVID 19 --SARS Cov2 PCR negative Apr 07 * Metabolic acidosis * Pneumonia Plan: * Patient had hemodialysis treatment this morning. However it was terminated early due to seizure-like activity and tachycardia. * Shall check her chemistries again tomorrow and decide about her next dialysis treatment * UF as tolerated * Abx per ID, input reviewed * neurology notes reviewed * Dose medications for renal function * GI notes appreciated. * WBC count noted to be elevated. Patient currently also has a PermCath in place. Follow-up blood culture results Subjective Date of service: 04/28/20 Principal diagnosis: Ac on ch hypoxemic and hypercapnic resp failure; PUI COVID- 19 infxn; AMS Interval history: Patient had hemodialysis treatment this morning. However treatment had to be terminated early due to tachycardia and seizure-like activity. Patient remains on the ventilator on 50% FiO2. Unresponsive. Objective - Vital Signs Vital signs: Vital Signs - 12hr 04/28/20 04/28/20 04/28/20 01:45 02:01 02:15 Temperature Pulse Rate 90 88 91 H Respiratory 26 H 17 20 Rate Blood Pressure 125/45 125/45 127/46 O2 Sat by Pulse 100 100 100 Oximetry O2 Sat by Pulse Oximetry [ Anterior Bilateral Throughout] 04/28/20 04/28/20 04/28/20 02:31 02:45 03:00 Temperature Pulse Rate 90 92 H 89 Respiratory 18 22 19 Rate Blood Pressure 127/46 127/46 116/44 O2 Sat by Pulse 100 100 99 Oximetry O2 Sat by Pulse Oximetry [ Anterior Bilateral Throughout] 04/28/20 04/28/20 04/28/20 03:15 03:29 03:31 Temperature 99.6 F Pulse Rate 90 91 H Respiratory 20 30 H Rate Blood Pressure 116/44 116/44 O2 Sat by Pulse 100 98 Oximetry O2 Sat by Pulse Oximetry [ Anterior Bilateral Throughout] 04/28/20 04/28/20 04/28/20 03:45 04:00 04:15 Temperature Pulse Rate 93 H 91 H 95 H Respiratory 36 H 22 21 Rate Blood Pressure 116/44 116/53 116/53 O2 Sat by Pulse 96 98 100 Oximetry O2 Sat by Pulse Oximetry [ Anterior Bilateral Throughout] 04/28/20 04/28/20 04/28/20 04:30 04:31 04:45 Temperature Pulse Rate 94 H 96 H 92 H Respiratory 36 H 16 Rate Blood Pressure 116/53 116/53 O2 Sat by Pulse 100 100 Oximetry O2 Sat by Pulse Oximetry [ Anterior Bilateral Throughout] 04/28/20 04/28/20 04/28/20 05:01 05:16 05:31 Temperature Pulse Rate 93 H 93 H 95 H Respiratory 19 14 15 Rate Blood Pressure 140/59 140/59 O2 Sat by Pulse 100 99 98 Oximetry O2 Sat by Pulse Oximetry [ Anterior Bilateral Throughout] 04/28/20 04/28/20 04/28/20 05:45 06:00 06:15 Temperature Pulse Rate 97 H 93 H 94 H Respiratory 19 19 18 Rate Blood Pressure 140/59 154/93 154/93 O2 Sat by Pulse 97 100 100 Oximetry O2 Sat by Pulse Oximetry [ Anterior Bilateral Throughout] 04/28/20 04/28/20 04/28/20 06:31 06:45 07:00 Temperature Pulse Rate 102 H 102 H 102 H Respiratory 25 H 30 H 28 H Rate Blood Pressure 154/93 154/93 147/64 O2 Sat by Pulse 96 95 96 Oximetry O2 Sat by Pulse Oximetry [ Anterior Bilateral Throughout] 04/28/20 04/28/20 04/28/20 07:10 07:15 07:30 Temperature 98.9 F Pulse Rate 101 H 100 H 103 H Respiratory 18 22 22 Rate Blood Pressure 147/64 147/64 135/52 O2 Sat by Pulse 95 97 Oximetry O2 Sat by Pulse 97 Oximetry [ Anterior Bilateral Throughout] 04/28/20 04/28/20 04/28/20 07:45 07:50 08:01 Temperature 97.9 F Pulse Rate 110 H 114 H 122 H Respiratory 24 20 30 H Rate Blood Pressure 135/52 123/57 147/92 O2 Sat by Pulse 96 99 Oximetry O2 Sat by Pulse 96 Oximetry [ Anterior Bilateral Throughout] - General Appearance General appearance: well-developed, well-nourished, appears stated age, intubated EENT: PERRL, mucous membranes moist Neck: no JVD, no thyromegaly, no carotid bruit, supple, other (Right IJ PermCath in place) Respiratory: Present: Clear to Ascultation Cardiology: regular, normal heart rate Gastrointestinal: normal, normoactive bowel sounds Integumentary: other (Bilateral below-knee amputation) - Lab 04/28/20 05:52 04/28/20 05:52 Most recent lab results ABG pH 7.391 (7.320-7.450) 04/28/20 04:12 ABG pCO2 54.0 mm Hg 04/11/20 03:44 ABG pO2 73.4 mm Hg (80.0-90.0) L 04/11/20 03:44 ABG HCO3 26.7 mmol/L (20.0-26.0) H 04/11/20 03:44 ABG O2 Saturation 95.0 % (95.0-99.0) 04/11/20 03:44 Calcium 9.2 mg/dL (8.4-10.2) 04/28/20 05:52 Phosphorus 3.00 mg/dL (2.5-4.5) 04/17/20 05:44 Magnesium 2.00 mg/dL (1.7-2.3) 04/17/20 05:44 Medications & Allergies - Medications Allergies/Adverse Reactions: Allergies carrot Allergy (Verified 07/28/19 12:30) Hives erythromycin base Allergy (Verified 07/30/19 11:26) Hives latex Allergy (Verified 02/18/19 13:20) Rash peas Allergy (Verified 12/20/19 12:37) Hives vancomycin Allergy (Verified 12/31/19 15:46) Hives Home Medications: Home Medications Medication Instructions Recorded Confirmed Last Taken Type Aripiprazole 5 mg PO DAILY 02/18/19 04/06/20 02/17/19 History Benadryl CAP 25 mg PO Q8H PRN 02/18/19 04/06/20 02/17/19 History Calcium Acetate 667 mg PO TIDWM 02/18/19 04/06/20 02/17/19 History Carvedilol 6.25 mg PO Q12H 02/18/19 04/06/20 02/17/19 History Colace CAP 100 mg PO Q12H PRN 02/18/19 04/06/20 02/17/19 History Esomeprazole Magnesium 40 mg PO QDAC 02/18/19 04/06/20 02/17/19 History HumaLOG 10 units SUB-Q TIDWM 02/18/19 04/06/20 02/17/19 History Insulin Detemir (Nf) [Levemir See Protocol SQ QHS 02/18/19 04/06/20 02/17/19 History Flextouch (Nf)] Losartan Potassium 50 mg PO DAILY 02/18/19 04/06/20 02/17/19 History Lyrica 75 mg PO Q12H 02/18/19 04/06/20 02/17/19 History Melatonin 6 mg PO QHS 02/18/19 04/06/20 02/17/19 History Senna 17.2 mg PO QHS PRN 02/18/19 04/06/20 02/17/19 History Venlafaxine HCl [Venlafaxine HCl 150 mg PO QDAC 02/18/19 04/06/20 02/17/19 History ER] Vitamin C 250 mg PO DAILY 02/18/19 04/06/20 02/17/19 History ZyrTEC 10mg cap 10 mg PO DAILY 02/18/19 04/06/20 02/17/19 History Calcium Acetate [Phoslo] 667 mg PO TIDWM capsule 12/22/19 04/06/20 Unknown Rx Fe Fumarate/FA/Mv, Min Comb#15 1 each PO QDAY capsule 12/22/19 04/06/20 Unknown Rx [Hemocyte Plus] Albuterol Mdi (or & Nicu Only) 2.5 puff IH Q4HRT PRN inha 01/12/20 04/06/20 Un known Rx [ProAir HFA Inhaler] dexAMETHasone [Decadron] 6 mg PO Q12HR #10 tablet 01/12/20 04/06/20 Unknown Rx oxyCODONE 5 mg PO Q6H PRN #10 01/12/20 04/06/20 Unknown Rx Active Medications: Generic Name Dose Route Start Last Admin Trade Name Freq PRN Reason Stop Dose Admin Acetaminophen 650 mg 04/06/20 16:39 Tylenol PO Q6H PRN Pain, Mild (1-3) Albuterol 2.5 mg 04/27/20 09:00 Proventil IH Q4HRT PRN Shortness Of Breath Lipase/Protease/Amylase 1 each 04/26/20 16:00 Jeremy Reyes 10,500 Unit FEEDTUBE PRN PRN For Clogged Feeding Tube Aripiprazole 5 mg 04/23/20 10:00 04/28/20 10:02 Aripiprazole PO 5 mg DAILY NOEL Administration Calcium Acetate 667 mg 04/22/20 17:00 04/28/20 10:02 Phoslo PO 667 mg TIDWM NOEL Administration Carvedilol 12.5 mg 04/28/20 10:00 Coreg PO BID [facility] Clonidine HCl 0.1 mg 04/25/20 08:00 04/25/20 11:10 Catapres-Tts Patch TD Not Given [facility] [place] Dextrose 50 ml 04/09/20 16:30 D50w (25gm) Syringe IV Q30MIN PRN Hypoglycemia Protocol Docusate Sodium 100 mg 04/22/20 12:17 Colace PO Q12H PRN Constipation Fentanyl 50 mcg 04/26/20 13:00 Sublimaze IV Q10MIN PRN ANALGESIA Heparin Sodium (Porcine) 5,000 unit 04/06/20 22:00 04/28/20 09:59 Heparin SUB-Q 5,000 unit Q12HR [facility] Administration Hydromorphone HCl 1 mg 04/18/20 14:22 04/25/20 03:35 Dilaudid IV 1 mg Q4H PRN Administration Pain , Severe (7-10) Hydrophilic Ointment 1 applic 04/06/20 13:34 Vaseline Lip Therapy TP Q2HR PRN Dry Lips Sodium Chloride 100 mls @ 999 mls/hr 04/07/20 17:00 Nacl 0.9% IV SPRING PRN Hypotension Fentanyl Citrate 2,000 mcg in 100 mls @ 5.505 mls/hr 04/26/20 13:00 Fentanyl Drip Premix IV TITR NOEL Protocol 1 MCG/KG/HR Insulin Glargine 25 units 04/28/20 10:00 04/28/20 10:04 Lantus SUB-Q 25 units Q24HR NOEL Administration Insulin Human Regular 0 unit 04/09/20 18:00 04/28/20 06:11 Humulin R SUB-Q 4 unit Q6H NOEL Administration Protocol Labetalol HCl 10 mg 04/08/20 17:17 04/24/20 22:37 Labetalol IV 10 mg Q4H PRN Administration Blood Pressure Lansoprazole 30 mg 04/26/20 14:00 04/28/20 09:59 Prevacid Solutab FEEDTUBE 30 mg QDAY NOEL Administration Losartan Potassium 25 mg 04/22/20 15:00 04/27/20 10:15 Cozaar PO 25 mg QDAY NOEL Administration Midodrine 10 mg 04/27/20 14:15 04/28/20 09:59 Proamatine PO 10 mg TID NOEL Administration Multi-Ingred Cream/Lotion/Oil/Oint 1 applic 04/06/20 13:34 Artificial Tears Ophth Oint OU Q4HR PRN Dry Eye(s) Multivitamins 5 ml 04/27/20 11:00 04/28/20 09:59 Centrum Liq PO 5 ml QDAY NOEL Administration Ondansetron HCl 4 mg 04/18/20 07:45 04/22/20 15:14 Zofran IV 4 mg Q4H PRN Administration Nausea And Vomiting Simple Syrup 15 ml 04/26/20 16:00 Simple Syrup FEEDTUBE PRN PRN Hypoglycemia Simple Syrup 30 ml 04/26/20 16:00 Simple Syrup FEEDTUBE PRN PRN Hypoglycemia Sodium Bicarbonate 325 mg 04/26/20 16:00 Sodium Bicarbonate FEEDTUBE PRN PRN For Clogged Feeding Tube Sodium Chloride 10 ml 04/06/20 22:00 04/27/20 22:05 Sodium Chloride Flush Syringe 10 Ml IV 10 ml BID NOEL Administration Sodium Chloride 10 ml 04/06/20 16:32 04/25/20 03:36 Sodium Chloride Flush Syringe 10 Ml IV 10 ml PRN PRN Administration LINE FLUSH
[2020-04-28] MEDS: carvediloL 12.5 MG TAB PO SCH ×2 (14:51→22:27)
--- NOTE | 2020-04-28 15:06 | Progress Note ---
Assessment and Plan Acute on chronic hypoxemic and hypercapnic respiratory failure. Coronavirus-19 infection. Acute encephalopathy. Bibasilar atelectasis. End-stage renal disease, on dialysis. Morbid obesity. History of a cerebrovascular accident. Diabetes type 2. History of chronic obstructive pulmonary disease. History of anemia. - FiO2 increased to 60% and peep increased to 8 - repeat lactate level now WNL - continue Midodrine (10 mg po tid) re: hypotension - leucocytosis bothersome, also with diarrhea; will begin empiric Flagyl - ID re-evaluation re: leucocytosis - procalcitonin level +/- ? BC's - continue care as below otherwise; - s/p AB's per ID rec's (Merrem) - wean supplemental oxygen for target O2 sat's > 90% acutely - VAP bundle addressed - continue lung protective strategies - continue bronchodilators with pulmonary hygiene per RT - wean per pulmonary driven protocols otherwise - continue accuchecks with glycemic control per SSI (While critically ill target blood glucose of 140-180 mg/dL; avoid hypoglycemia) - continue fentanyl for sedation / analgesia - sedation prn for target RASS 0 to -1 - avoid nephrotoxins, renally dose all medications - continue to avoid benzodiazepine's, reduce the possibility of delirium - prn analgesia per CPOT score - Maintenance of sleep-wake cycle, avoid delirium - continue enteral nutritional support at goal rate as tolerated - G.I. & VTE prophylaxis - PT/OT/ROM exercises - continue mobility protocols for pressure ulcer prophylaxis - Monitor hemodynamics closely - continue other care per attending / other consultants - discharge planning ongoing concurrently .... Re-evaluate in am & prn CONDITION: CRITICAL PROGNOSIS: GUARDED CODE STATUS: FULL CODE The high probability of a clinically significant, sudden or life-threatening deterioration of the [respiratory, cardiovascular, renal & neurologic] system(s) required my full and direct attention, intervention and personal management. The aggregate critical care time was [36] minutes without overlap. Time includes spent on; [x] Data Review and interpretation [x] Patient assessment and monitoring of vital signs [x] Documentation [x] Medication orders and management Subjective Date of service: 04/28/20 Principal diagnosis: Ac on ch hypoxemic and hypercapnic resp failure; PUI COVID- 19 infxn; AMS Interval history: Patient is seen today for: Acute on chronic hypoxemic and hypercapnic resp failure; PUI Coronavirus-19 infection; Acute encephalopathy; ESRD; Morbid obe sity; DM II; AE-COPD Seen and examined at bedside; 24hour events reviewed; nursing and respiratory care staff consulted; no adverse overnight events reported to me; resting p eacefully in bed; remains on MVS; s/p ? Hypertensive emergency with seizure type activity earlier but transient; HD/UF held; remains on MVS; oxygenation worse and needing higher FiO2 Objective Vital Signs - 12hr 04/28/20 04/28/20 04/28/20 03:15 03:29 03:31 Temperature 99.6 F Pulse Rate 90 91 H Respiratory 20 30 H Rate Blood Pressure 116/44 116/44 O2 Sat by Pulse 100 98 Oximetry O2 Sat by Pulse Oximetry [ Anterior Bilateral Throughout] 04/28/20 04/28/20 04/28/20 03:45 04:00 04:15 Temperature Pulse Rate 93 H 91 H 95 H Respiratory 36 H 22 21 Rate Blood Pressure 116/44 116/53 116/53 O2 Sat by Pulse 96 98 100 Oximetry O2 Sat by Pulse Oximetry [ Anterior Bilateral Throughout] 04/28/20 04/28/20 04/28/20 04:30 04:31 04:45 Temperature Pulse Rate 94 H 96 H 92 H Respiratory 36 H 16 Rate Blood Pressure 116/53 116/53 O2 Sat by Pulse 100 100 Oximetry O2 Sat by Pulse Oximetry [ Anterior Bilateral Throughout] 04/28/20 04/28/20 04/28/20 05:01 05:16 05:31 Temperature Pulse Rate 93 H 93 H 95 H Respiratory 19 14 15 Rate Blood Pressure 140/59 140/59 O2 Sat by Pulse 100 99 98 Oximetry O2 Sat by Pulse Oximetry [ Anterior Bilateral Throughout] 04/28/20 04/28/20 04/28/20 05:45 06:00 06:15 Temperature Pulse Rate 97 H 93 H 94 H Respiratory 19 19 18 Rate Blood Pressure 140/59 154/93 154/93 O2 Sat by Pulse 97 100 100 Oximetry O2 Sat by Pulse Oximetry [ Anterior Bilateral Throughout] 04/28/20 04/28/20 04/28/20 06:31 06:45 07:00 Temperature Pulse Rate 102 H 102 H 102 H Respiratory 25 H 30 H 28 H Rate Blood Pressure 154/93 154/93 147/64 O2 Sat by Pulse 96 95 96 Oximetry O2 Sat by Pulse Oximetry [ Anterior Bilateral Throughout] 04/28/20 04/28/20 04/28/20 07:10 07:15 07:30 Temperature 98.9 F Pulse Rate 101 H 100 H 103 H Respiratory 18 22 22 Rate Blood Pressure 147/64 147/64 135/52 O2 Sat by Pulse 95 97 Oximetry O2 Sat by Pulse 97 Oximetry [ Anterior Bilateral Throughout] 04/28/20 04/28/20 04/28/20 07:45 07:50 08:01 Temperature 97.9 F Pulse Rate 110 H 114 H 122 H Respiratory 24 20 30 H Rate Blood Pressure 135/52 123/57 147/92 O2 Sat by Pulse 96 99 Oximetry O2 Sat by Pulse 96 Oximetry [ Anterior Bilateral Throughout] 04/28/20 04/28/20 04/28/20 10:00 14:14 14:51 Temperature Pulse Rate 112 H 109 H Respiratory Rate Blood Pressure 97/39 116/45 133/61 O2 Sat by Pulse 98 Oximetry O2 Sat by Pulse Oximetry [ Anterior Bilateral Throughout] Constitutional: no acute distress, other (middle aged obese female with normal respiratory effort at rest on MVS) Eyes: non-icteric ENT: oropharynx moist, other (ETT 23 cm PARRISH) Neck: supple, no lymphadenopathy, no JVD Effort: normal Ascultation: Bilateral: diminished breath sounds, wheezes, rales, rhonchi (scant) Percussion: Bilateral: not dull Cardiovascular: regular rate and rhythm, other (S1,S2) Gastrointestinal: normoactive bowel sounds, soft, non-tender, non-distended (protuberant) Integumentary: rash Extremities: no cyanosis, no edema, no ischemia or petechiae, other (bilateral BKAs ) Neurologic: non-focal exam (grossly), pupils equal and round, CN II-XII normal, motor strength normal and, unable to assess Psychiatric: mood appropriate, affect normal CBC and BMP: 04/28/20 05:52 04/28/20 05:52 ABG, PT/INR, D-dimer: ABG ABG pH 7.391 (7.320-7.450) 04/28/20 04:12 POC ABG pCO2 32.7 mmHg (32.0-48.0) 04/28/20 04:12 ABG pCO2 54.0 mm Hg 04/11/20 03:44 POC ABG pO2 105.4 mmHg (83-108) 04/28/20 04:12 ABG pO2 73.4 mm Hg (80.0-90.0) L 04/11/20 03:44 POC ABG HCO3 19.4 04/28/20 04:12 ABG O2 Saturation 95.0 % (95.0-99.0) 04/11/20 03:44 PT/INR, D-dimer PT 13.4 Sec. (12.2-14.9) 04/25/20 14:19 INR 1.04 (0.87-1.13) 04/25/20 14:19 D-Dimer 1144.77 ng/mlDDU (0-234) H 04/18/20 06:48 Abnormal lab findings: Abnormal Labs 04/06/20 04/06/20 04/06/20 13:34 14:30 14:30 WBC 19.2 H RBC Hgb Hct RDW 17.8 H Plt Count Lymph % (Auto) [place] # (Auto) Seg Neutrophils % Seg Neuts % (Manual) 90.0 H Lymphocytes % (Manual) 4.0 L Monocytes % (Manual) Basophils % (Manual) Seg Neutrophils # Seg Neutrophils # Man 17.3 H Lymphocytes # (Manual) 0.8 L Monocytes # (Manual) Eosinophils # (Manual) Basophils # (Manual) D-Dimer ABG pH POC ABG pCO2 POC ABG pO2 ABG pO2 ABG HCO3 ABG Base Excess ABG Hemoglobin ABG Oxyhemoglobin ABG Sodium ABG Chloride ABG Glucose Oxyhemoglobin Sodium Potassium 5.2 H Chloride Carbon Dioxide 17 L BUN 53 H Creatinine 7.8 H Glucose 144 H POC Glucose Lactic Acid Calcium Magnesium Ferritin Alkaline Phosphatase 738 H Lactate Dehydrogenase Total Creatine Kinase 23 L Troponin T 0.224 H* C-Reactive Protein Albumin 3.1 L Triglycerides 342 H Cholesterol 223 H HDL Cholesterol 35 L Arterial Blood Glucose Arterial Blood Ionized Calcium Urine WBC (Auto) > 182.0 H Salicylates Acetaminophen Hepatitis C Antibody 04/06/20 04/06/20 04/06/20 14:30 14:30 14:30 WBC RBC Hgb Hct RDW Plt Count Lymph % (Auto) [place] # (Auto) Seg Neutrophils % Seg Neuts % (Manual) Lymphocytes % (Manual) Monocytes % (Manual) Basophils % (Manual) Seg Neutrophils # Seg Neutrophils # Man Lymphocytes # (Manual) Monocytes # (Manual) Eosinophils # (Manual) Basophils # (Manual) D-Dimer ABG pH POC ABG pCO2 POC ABG pO2 ABG pO2 ABG HCO3 ABG Base Excess ABG Hemoglobin ABG Oxyhemoglobin ABG Sodium ABG Chloride ABG Glucose Oxyhemoglobin Sodium Potassium Chloride Carbon Dioxide BUN Creatinine Glucose POC Glucose Lactic Acid Calcium Magnesium 2.50 H Ferritin Alkaline Phosphatase Lactate Dehydrogenase Total Creatine Kinase 24 L Troponin T C-Reactive Protein Albumin Triglycerides Cholesterol HDL Cholesterol Arterial Blood Glucose Arterial Blood Ionized Calcium Urine WBC (Auto) Salicylates < 0.3 L Acetaminophen 5.0 L Hepatitis C Antibody 04/06/20 04/06/20 04/07/20 14:39 20:00 00:48 WBC RBC Hgb Hct RDW Plt Count Lymph % (Auto) [place] # (Auto) Seg Neutrophils % Seg Neuts % (Manual) Lymphocytes % (Manual) Monocytes % (Manual) Basophils % (Manual) Seg Neutrophils # Seg Neutrophils # Man Lymphocytes # (Manual) Monocytes # (Manual) Eosinophils # (Manual) Basophils # (Manual) D-Dimer ABG pH 7.281 L 7.306 L POC ABG pCO2 POC ABG pO2 78.0 L ABG pO2 133.8 H ABG HCO3 18.3 L ABG Base Excess -7.8 L ABG Hemoglobin 10.8 L 10.8 L ABG Oxyhemoglobin ABG Sodium ABG Chloride 108.0 H ABG Glucose Oxyhemoglobin Sodium Potassium Chloride Carbon Dioxide BUN Creatinine Glucose POC Glucose 69 L Lactic Acid Calcium Magnesium Ferritin Alkaline Phosphatase Lactate Dehydrogenase Total Creatine Kinase Troponin T C-Reactive Protein Albumin Triglycerides Cholesterol HDL Cholesterol Arterial Blood Glucose Arterial Blood Ionized Calcium Urine WBC (Auto) Salicylates Acetaminophen Hepatitis C Antibody 04/07/20 04/07/20 04/07/20 09:34 09:34 09:34 WBC RBC Hgb Hct RDW Plt Count Lymph % (Auto) [place] # (Auto) Seg Neutrophils % Seg Neuts % (Manual) Lymphocytes % (Manual) Monocytes % (Manual) Basophils % (Manual) Seg Neutrophils # Seg Neutrophils # Man Lymphocytes # (Manual) Monocytes # (Manual) Eosinophils # (Manual) Basophils # (Manual) D-Dimer 1063.66 H ABG pH POC ABG pCO2 POC ABG pO2 ABG pO2 ABG HCO3 ABG Base Excess ABG Hemoglobin ABG Oxyhemoglobin ABG Sodium ABG Chloride ABG Glucose Oxyhemoglobin Sodium Potassium Chloride Carbon Dioxide BUN Creatinine Glucose POC Glucose Lactic Acid Calcium Magnesium Ferritin 743.0 H Alkaline Phosphatase Lactate Dehydrogenase 195 H Total Creatine Kinase Troponin T C-Reactive Protein 7.50 H Albumin Triglycerides Cholesterol HDL Cholesterol Arterial Blood Glucose Arterial Blood Ionized Calcium Urine WBC (Auto) Salicylates Acetaminophen Hepatitis C Antibody 04/07/20 04/07/20 04/07/20 10:01 16:38 23:51 WBC RBC Hgb Hct RDW Plt Count Lymph % (Auto) [place] # (Auto) Seg Neutrophils % Seg Neuts % (Manual) Lymphocytes % (Manual) Monocytes % (Manual) Basophils % (Manual) Seg Neutrophils # Seg Neutrophils # Man Lymphocytes # (Manual) Monocytes # (Manual) Eosinophils # (Manual) Basophils # (Manual) D-Dimer ABG pH POC ABG pCO2 POC ABG pO2 79.8 L ABG pO2 ABG HCO3 ABG Base Excess ABG Hemoglobin 10.3 L ABG Oxyhemoglobin ABG Sodium ABG Chloride 109.0 H ABG Glucose Oxyhemoglobin Sodium Potassium Chloride Carbon Dioxide BUN Creatinine Glucose POC Glucose 117 H Lactic Acid Calcium Magnesium Ferritin Alkaline Phosphatase Lactate Dehydrogenase Total Creatine Kinase Troponin T C-Reactive Protein Albumin Triglycerides Cholesterol HDL Cholesterol Arterial Blood Glucose Arterial Blood Ionized Calcium 4.5 L Urine WBC (Auto) Salicylates Acetaminophen Hepatitis C Antibody Reactive A 04/08/20 04/08/20 04/08/20 04:58 12:48 17:03 WBC RBC Hgb Hct RDW Plt Count Lymph % (Auto) [place] # (Auto) Seg Neutrophils % Seg Neuts % (Manual) Lymphocytes % (Manual) Monocytes % (Manual) Basophils % (Manual) Seg Neutrophils # Seg Neutrophils # Man Lymphocytes # (Manual) Monocytes # (Manual) Eosinophils # (Manual) Basophils # (Manual) D-Dimer ABG pH POC ABG pCO2 POC ABG pO2 ABG pO2 ABG HCO3 ABG Base Excess ABG Hemoglobin ABG Oxyhemoglobin ABG Sodium ABG Chloride ABG Glucose Oxyhemoglobin Sodium Potassium Chloride Carbon Dioxide BUN Creatinine Glucose POC Glucose 129 H 155 H 201 H Lactic Acid Calcium Magnesium Ferritin Alkaline Phosphatase Lactate Dehydrogenase Total Creatine Kinase Troponin T C-Reactive Protein Albumin Triglycerides Cholesterol HDL Cholesterol Arterial Blood Glucose Arterial Blood Ionized Calcium Urine WBC (Auto) Salicylates Acetaminophen Hepatitis C Antibody 04/08/20 04/08/20 04/09/20 23:49 Unknown 05:31 WBC RBC Hgb Hct RDW Plt Count Lymph % (Auto) [place] # (Auto) Seg Neutrophils % Seg Neuts % (Manual) Lymphocytes % (Manual) Monocytes % (Manual) Basophils % (Manual) Seg Neutrophils # Seg Neutrophils # Man Lymphocytes # (Manual) Monocytes # (Manual) Eosinophils # (Manual) Basophils # (Manual) D-Dimer ABG pH 7.349 L POC ABG pCO2 POC ABG pO2 ABG pO2 117.3 H ABG HCO3 ABG Base Excess ABG Hemoglobin 7.4 L ABG Oxyhemoglobin ABG Sodium ABG Chloride ABG Glucose Oxyhemoglobin Sodium Potassium Chloride Carbon Dioxide BUN Creatinine Glucose POC Glucose 178 H 248 H Lactic Acid Calcium Magnesium Ferritin Alkaline Phosphatase Lactate Dehydrogenase Total Creatine Kinase Troponin T C-Reactive Protein Albumin Triglycerides Cholesterol HDL Cholesterol Arterial Blood Glucose Arterial Blood Ionized Calcium Urine WBC (Auto) Salicylates Acetaminophen Hepatitis C Antibody 04/09/20 04/09/20 04/09/20 11:39 17:35 Unknown WBC RBC Hgb Hct RDW Plt Count Lymph % (Auto) [place] # (Auto) Seg Neutrophils % Seg Neuts % (Manual) Lymphocytes % (Manual) Monocytes % (Manual) Basophils % (Manual) Seg Neutrophils # Seg Neutrophils # Man Lymphocytes # (Manual) Monocytes # (Manual) Eosinophils # (Manual) Basophils # (Manual) D-Dimer ABG pH POC ABG pCO2 51.6 H POC ABG pO2 ABG pO2 ABG HCO3 ABG Base Excess ABG Hemoglobin 11.4 L ABG Oxyhemoglobin ABG Sodium 130.1 L ABG Chloride ABG Glucose 249 H Oxyhemoglobin Sodium Potassium Chloride Carbon Dioxide BUN Creatinine Glucose POC Glucose 319 H 254 H Lactic Acid Calcium Magnesium Ferritin Alkaline Phosphatase Lactate Dehydrogenase Total Creatine Kinase Troponin T C-Reactive Protein Albumin Triglycerides Cholesterol HDL Cholesterol Arterial Blood Glucose 249 H Arterial Blood Ionized Calcium 4.1 L Urine WBC (Auto) Salicylates Acetaminophen Hepatitis C Antibody 04/10/20 04/10/20 04/10/20 00:00 03:15 05:49 WBC RBC Hgb Hct RDW Plt Count Lymph % (Auto) [place] # (Auto) Seg Neutrophils % Seg Neuts % (Manual) Lymphocytes % (Manual) Monocytes % (Manual) Basophils % (Manual) Seg Neutrophils # Seg Neutrophils # Man Lymphocytes # (Manual) Monocytes # (Manual) Eosinophils # (Manual) Basophils # (Manual) D-Dimer ABG pH POC ABG pCO2 48.2 H POC ABG pO2 ABG pO2 ABG HCO3 ABG Base Excess ABG Hemoglobin 9.9 L ABG Oxyhemoglobin ABG Sodium 135.4 L ABG Chloride ABG Glucose 215 H Oxyhemoglobin Sodium Potassium Chloride Carbon Dioxide BUN Creatinine Glucose POC Glucose 194 H 221 H Lactic Acid Calcium Magnesium Ferritin Alkaline Phosphatase Lactate Dehydrogenase Total Creatine Kinase Troponin T C-Reactive Protein Albumin Triglycerides Cholesterol HDL Cholesterol Arterial Blood Glucose 215 H Arterial Blood Ionized Calcium 4.5 L Urine WBC (Auto) Salicylates Acetaminophen Hepatitis C Antibody 04/10/20 04/10/20 04/10/20 08:18 08:18 12:22 WBC 28.9 H RBC 3.38 L Hgb 9.5 L Hct 30.1 L RDW 16.9 H Plt Count Lymph % (Auto) [place] # (Auto) Seg Neutrophils % Seg Neuts % (Manual) 87.0 H Lymphocytes % (Manual) 9.0 L Monocytes % (Manual) Basophils % (Manual) 2.0 H Seg Neutrophils # Seg Neutrophils # Man 25.1 H Lymphocytes # (Manual) Monocytes # (Manual) Eosinophils # (Manual) Basophils # (Manual) 0.6 H D-Dimer ABG pH POC ABG pCO2 POC ABG pO2 ABG pO2 ABG HCO3 ABG Base Excess ABG Hemoglobin ABG Oxyhemoglobin ABG Sodium ABG Chloride ABG Glucose Oxyhemoglobin Sodium 134 L Potassium 3.5 L D Chloride 94.9 L Carbon Dioxide BUN 38 H Creatinine 5.5 H Glucose 230 H POC Glucose 218 H Lactic Acid Calcium Magnesium Ferritin Alkaline Phosphatase Lactate Dehydrogenase Total Creatine Kinase Troponin T C-Reactive Protein Albumin Triglycerides Cholesterol HDL Cholesterol Arterial Blood Glucose Arterial Blood Ionized Calcium Urine WBC (Auto) Salicylates Acetaminophen Hepatitis C Antibody 04/10/20 04/10/20 04/10/20 17:27 18:08 23:29 WBC RBC Hgb Hct RDW Plt Count Lymph % (Auto) [place] # (Auto) Seg Neutrophils % Seg Neuts % (Manual) Lymphocytes % (Manual) Monocytes % (Manual) Basophils % (Manual) Seg Neutrophils # Seg Neutrophils # Man Lymphocytes # (Manual) Monocytes # (Manual) Eosinophils # (Manual) Basophils # (Manual) D-Dimer ABG pH POC ABG pCO2 POC ABG pO2 ABG pO2 ABG HCO3 ABG Base Excess ABG Hemoglobin ABG Oxyhemoglobin ABG Sodium ABG Chloride ABG Glucose Oxyhemoglobin Sodium Potassium Chloride Carbon Dioxide BUN Creatinine Glucose POC Glucose 218 H 223 H 166 H Lactic Acid Calcium Magnesium Ferritin Alkaline Phosphatase Lactate Dehydrogenase Total Creatine Kinase Troponin T C-Reactive Protein Albumin Triglycerides Cholesterol HDL Cholesterol Arterial Blood Glucose Arterial Blood Ionized Calcium Urine WBC (Auto) Salicylates Acetaminophen Hepatitis C Antibody 04/11/20 04/11/20 04/11/20 03:44 05:28 07:39 WBC 26.9 H RBC 3.32 L Hgb 9.4 L Hct 29.5 L RDW 17.2 H Plt Count Lymph % (Auto) [place] # (Auto) Seg Neutrophils % Seg Neuts % (Manual) 83.0 H Lymphocytes % (Manual) 10.0 L Monocytes % (Manual) Basophils % (Manual) Seg Neutrophils # Seg Neutrophils # Man 22.3 H Lymphocytes # (Manual) Monocytes # (Manual) 1.1 H Eosinophils # (Manual) 0.5 H Basophils # (Manual) D-Dimer ABG pH 7.313 L POC ABG pCO2 POC ABG pO2 ABG pO2 73.4 L ABG HCO3 26.7 H ABG Base Excess ABG Hemoglobin 11.0 L ABG Oxyhemoglobin ABG Sodium ABG Chloride ABG Glucose Oxyhemoglobin 92.8 L Sodium Potassium Chloride Carbon Dioxide BUN Creatinine Glucose POC Glucose 164 H Lactic Acid Calcium Magnesium Ferritin Alkaline Phosphatase Lactate Dehydrogenase Total Creatine Kinase Troponin T C-Reactive Protein Albumin Triglycerides Cholesterol HDL Cholesterol Arterial Blood Glucose Arterial Blood Ionized Calcium Urine WBC (Auto) Salicylates Acetaminophen Hepatitis C Antibody 04/11/20 04/11/20 04/11/20 07:39 12:25 19:02 WBC RBC Hgb Hct RDW Plt Count Lymph % (Auto) [place] # (Auto) Seg Neutrophils % Seg Neuts % (Manual) Lymphocytes % (Manual) Monocytes % (Manual) Basophils % (Manual) Seg Neutrophils # Seg Neutrophils # Man Lymphocytes # (Manual) Monocytes # (Manual) Eosinophils # (Manual) Basophils # (Manual) D-Dimer ABG pH POC ABG pCO2 POC ABG pO2 ABG pO2 ABG HCO3 ABG Base Excess ABG Hemoglobin ABG Oxyhemoglobin ABG Sodium ABG Chloride ABG Glucose Oxyhemoglobin Sodium Potassium Chloride Carbon Dioxide BUN 48 H Creatinine 6.1 H Glucose 122 H POC Glucose 175 H 175 H Lactic Acid Calcium 8.3 L Magnesium Ferritin Alkaline Phosphatase Lactate Dehydrogenase Total Creatine Kinase Troponin T C-Reactive Protein Albumin Triglycerides Cholesterol HDL Cholesterol Arterial Blood Glucose Arterial Blood Ionized Calcium Urine WBC (Auto) Salicylates Acetaminophen Hepatitis C Antibody 04/12/20 04/12/20 04/12/20 00:02 05:51 08:14 WBC 28.0 H RBC 3.29 L Hgb 9.5 L Hct 29.1 L RDW 16.9 H Plt Count Lymph % (Auto) [place] # (Auto) Seg Neutrophils % Seg Neuts % (Manual) 88.0 H Lymphocytes % (Manual) 7.0 L Monocytes % (Manual) Basophils % (Manual) Seg Neutrophils # Seg Neutrophils # Man 24.6 H Lymphocytes # (Manual) Monocytes # (Manual) Eosinophils # (Manual) 0.6 H Basophils # (Manual) D-Dimer ABG pH POC ABG pCO2 POC ABG pO2 ABG pO2 ABG HCO3 ABG Base Excess ABG Hemoglobin ABG Oxyhemoglobin ABG Sodium ABG Chloride ABG Glucose Oxyhemoglobin Sodium Potassium Chloride Carbon Dioxide BUN Creatinine Glucose POC Glucose 146 H 151 H Lactic Acid Calcium Magnesium Ferritin Alkaline Phosphatase Lactate Dehydrogenase Total Creatine Kinase Troponin T C-Reactive Protein Albumin Triglycerides Cholesterol HDL Cholesterol Arterial Blood Glucose Arterial Blood Ionized Calcium Urine WBC (Auto) Salicylates Acetaminophen Hepatitis C Antibody 04/12/20 04/12/20 04/12/20 08:14 12:21 17:26 WBC RBC Hgb Hct RDW Plt Count Lymph % (Auto) [place] # (Auto) Seg Neutrophils % Seg Neuts % (Manual) Lymphocytes % (Manual) Monocytes % (Manual) Basophils % (Manual) Seg Neutrophils # Seg Neutrophils # Man Lymphocytes # (Manual) Monocytes # (Manual) Eosinophils # (Manual) Basophils # (Manual) D-Dimer ABG pH POC ABG pCO2 POC ABG pO2 ABG pO2 ABG HCO3 ABG Base Excess ABG Hemoglobin ABG Oxyhemoglobin ABG Sodium ABG Chloride ABG Glucose Oxyhemoglobin Sodium Potassium 3.3 L Chloride Carbon Dioxide BUN 32 H Creatinine 4.3 H Glucose 188 H POC Glucose 196 H 235 H Lactic Acid Calcium Magnesium Ferritin Alkaline Phosphatase Lactate Dehydrogenase Total Creatine Kinase Troponin T C-Reactive Protein Albumin Triglycerides Cholesterol HDL Cholesterol Arterial Blood Glucose Arterial Blood Ionized Calcium Urine WBC (Auto) Salicylates Acetaminophen Hepatitis C Antibody 04/12/20 04/13/20 04/13/20 23:34 03:40 05:33 WBC RBC Hgb Hct RDW Plt Count Lymph % (Auto) [place] # (Auto) Seg Neutrophils % Seg Neuts % (Manual) Lymphocytes % (Manual) Monocytes % (Manual) Basophils % (Manual) Seg Neutrophils # Seg Neutrophils # Man Lymphocytes # (Manual) Monocytes # (Manual) Eosinophils # (Manual) Basophils # (Manual) D-Dimer ABG pH POC ABG pCO2 POC ABG pO2 ABG pO2 ABG HCO3 ABG Base Excess ABG Hemoglobin 9.4 L ABG Oxyhemoglobin ABG Sodium 133.6 L ABG Chloride ABG Glucose 172 H Oxyhemoglobin Sodium Potassium Chloride Carbon Dioxide BUN Creatinine Glucose POC Glucose 171 H 167 H Lactic Acid Calcium Magnesium Ferritin Alkaline Phosphatase Lactate Dehydrogenase Total Creatine Kinase Troponin T C-Reactive Protein Albumin Triglycerides Cholesterol HDL Cholesterol Arterial Blood Glucose 172 H Arterial Blood Ionized Calcium Urine WBC (Auto) Salicylates Acetaminophen Hepatitis C Antibody 04/13/20 04/13/20 04/13/20 07:49 09:09 11:34 WBC RBC Hgb Hct RDW Plt Count Lymph % (Auto) [place] # (Auto) Seg Neutrophils % Seg Neuts % (Manual) Lymphocytes % (Manual) Monocytes % (Manual) Basophils % (Manual) Seg Neutrophils # Seg Neutrophils # Man Lymphocytes # (Manual) Monocytes # (Manual) Eosinophils # (Manual) Basophils # (Manual) D-Dimer ABG pH POC ABG pCO2 POC ABG pO2 ABG pO2 ABG HCO3 ABG Base Excess ABG Hemoglobin ABG Oxyhemoglobin ABG Sodium ABG Chloride ABG Glucose Oxyhemoglobin Sodium Potassium Chloride Carbon Dioxide 31 H BUN 44 H 43 H Creatinine 5.0 H 4.9 H Glucose 164 H 164 H POC Glucose 155 H Lactic Acid Calcium Magnesium Ferritin Alkaline Phosphatase Lactate Dehydrogenase Total Creatine Kinase Troponin T C-Reactive Protein Albumin Triglycerides Cholesterol HDL Cholesterol Arterial Blood Glucose Arterial Blood Ionized Calcium Urine WBC (Auto) Salicylates Acetaminophen Hepatitis C Antibody 04/13/20 04/13/20 04/14/20 17:38 23:40 04:35 WBC RBC Hgb Hct RDW Plt Count Lymph % (Auto) [place] # (Auto) Seg Neutrophils % Seg Neuts % (Manual) Lymphocytes % (Manual) Monocytes % (Manual) Basophils % (Manual) Seg Neutrophils # Seg Neutrophils # Man Lymphocytes # (Manual) Monocytes # (Manual) Eosinophils # (Manual) Basophils # (Manual) D-Dimer ABG pH POC ABG pCO2 POC ABG pO2 ABG pO2 ABG HCO3 ABG Base Excess ABG Hemoglobin ABG Oxyhemoglobin ABG Sodium ABG Chloride ABG Glucose Oxyhemoglobin Sodium Potassium Chloride Carbon Dioxide BUN Creatinine Glucose POC Glucose 180 H 130 H 121 H Lactic Acid Calcium Magnesium Ferritin Alkaline Phosphatase Lactate Dehydrogenase Total Creatine Kinase Troponin T C-Reactive Protein Albumin Triglycerides Cholesterol HDL Cholesterol Arterial Blood Glucose Arterial Blood Ionized Calcium Urine WBC (Auto) Salicylates Acetaminophen Hepatitis C Antibody 04/14/20 04/14/20 04/15/20 12:17 17:06 00:11 WBC RBC Hgb Hct RDW Plt Count Lymph % (Auto) [place] # (Auto) Seg Neutrophils % Seg Neuts % (Manual) Lymphocytes % (Manual) Monocytes % (Manual) Basophils % (Manual) Seg Neutrophils # Seg Neutrophils # Man Lymphocytes # (Manual) Monocytes # (Manual) Eosinophils # (Manual) Basophils # (Manual) D-Dimer ABG pH POC ABG pCO2 POC ABG pO2 ABG pO2 ABG HCO3 ABG Base Excess ABG Hemoglobin ABG Oxyhemoglobin ABG Sodium ABG Chloride ABG Glucose Oxyhemoglobin Sodium Potassium Chloride Carbon Dioxide BUN Creatinine Glucose POC Glucose 170 H 177 H 156 H Lactic Acid Calcium Magnesium Ferritin Alkaline Phosphatase Lactate Dehydrogenase Total Creatine Kinase Troponin T C-Reactive Protein Albumin Triglycerides Cholesterol HDL Cholesterol Arterial Blood Glucose Arterial Blood Ionized Calcium Urine WBC (Auto) Salicylates Acetaminophen Hepatitis C Antibody 04/15/20 04/15/20 04/15/20 05:09 11:45 17:12 WBC RBC Hgb Hct RDW Plt Count Lymph % (Auto) [place] # (Auto) Seg Neutrophils % Seg Neuts % (Manual) Lymphocytes % (Manual) Monocytes % (Manual) Basophils % (Manual) Seg Neutrophils # Seg Neutrophils # Man Lymphocytes # (Manual) Monocytes # (Manual) Eosinophils # (Manual) Basophils # (Manual) D-Dimer ABG pH POC ABG pCO2 POC ABG pO2 ABG pO2 ABG HCO3 ABG Base Excess ABG Hemoglobin ABG Oxyhemoglobin ABG Sodium ABG Chloride ABG Glucose Oxyhemoglobin Sodium Potassium Chloride Carbon Dioxide BUN Creatinine Glucose POC Glucose 141 H 154 H 177 H Lactic Acid Calcium Magnesium Ferritin Alkaline Phosphatase Lactate Dehydrogenase Total Creatine Kinase Troponin T C-Reactive Protein Albumin Triglycerides Cholesterol HDL Cholesterol Arterial Blood Glucose Arterial Blood Ionized Calcium Urine WBC (Auto) Salicylates Acetaminophen Hepatitis C Antibody 04/16/20 04/16/20 04/16/20 05:11 12:13 17:31 WBC RBC Hgb Hct RDW Plt Count Lymph % (Auto) [place] # (Auto) Seg Neutrophils % Seg Neuts % (Manual) Lymphocytes % (Manual) Monocytes % (Manual) Basophils % (Manual) Seg Neutrophils # Seg Neutrophils # Man Lymphocytes # (Manual) Monocytes # (Manual) Eosinophils # (Manual) Basophils # (Manual) D-Dimer ABG pH POC ABG pCO2 POC ABG pO2 ABG pO2 ABG HCO3 ABG Base Excess ABG Hemoglobin ABG Oxyhemoglobin ABG Sodium ABG Chloride ABG Glucose Oxyhemoglobin Sodium Potassium Chloride Carbon Dioxide BUN Creatinine Glucose POC Glucose 115 H 122 H 188 H Lactic Acid Calcium Magnesium Ferritin Alkaline Phosphatase Lactate Dehydrogenase Total Creatine Kinase Troponin T C-Reactive Protein Albumin Triglycerides Cholesterol HDL Cholesterol Arterial Blood Glucose Arterial Blood Ionized Calcium Urine WBC (Auto) Salicylates Acetaminophen Hepatitis C Antibody 04/16/20 04/17/20 04/17/20 23:47 05:44 05:44 WBC 19.5 H RBC 3.26 L Hgb 9.3 L Hct 28.7 L RDW 15.9 H Plt Count 604 H Lymph % (Auto) [place] # (Auto) Seg Neutrophils % Seg Neuts % (Manual) 81.0 H Lymphocytes % (Manual) 11.0 L Monocytes % (Manual) Basophils % (Manual) Seg Neutrophils # Seg Neutrophils # Man 15.8 H Lymphocytes # (Manual) Monocytes # (Manual) Eosinophils # (Manual) 0.6 H Basophils # (Manual) 0.2 H D-Dimer ABG pH POC ABG pCO2 POC ABG pO2 ABG pO2 ABG HCO3 ABG Base Excess ABG Hemoglobin ABG Oxyhemoglobin ABG Sodium ABG Chloride ABG Glucose Oxyhemoglobin Sodium Potassium Chloride Carbon Dioxide BUN 28 H Creatinine 3.3 H Glucose 130 H POC Glucose 156 H Lactic Acid Calcium Magnesium Ferritin Alkaline Phosphatase Lactate Dehydrogenase Total Creatine Kinase Troponin T C-Reactive Protein Albumin Triglycerides Cholesterol HDL Cholesterol Arterial Blood Glucose Arterial Blood Ionized Calcium Urine WBC (Auto) Salicylates Acetaminophen Hepatitis C Antibody 04/17/20 04/17/20 04/17/20 12:57 17:18 22:04 WBC RBC Hgb Hct RDW Plt Count Lymph % (Auto) [place] # (Auto) Seg Neutrophils % Seg Neuts % (Manual) Lymphocytes % (Manual) Monocytes % (Manual) Basophils % (Manual) Seg Neutrophils # Seg Neutrophils # Man Lymphocytes # (Manual) Monocytes # (Manual) Eosinophils # (Manual) Basophils # (Manual) D-Dimer ABG pH 7.553 H POC ABG pCO2 POC ABG pO2 206.5 H ABG pO2 ABG HCO3 ABG Base Excess ABG Hemoglobin 11.2 L ABG Oxyhemoglobin 99.1 H ABG Sodium 133.0 L ABG Chloride ABG Glucose 183 H Oxyhemoglobin Sodium Potassium Chloride Carbon Dioxide BUN Creatinine Glucose POC Glucose 146 H 156 H Lactic Acid Calcium Magnesium Ferritin Alkaline Phosphatase Lactate Dehydrogenase Total Creatine Kinase Troponin T C-Reactive Protein Albumin Triglycerides Cholesterol HDL Cholesterol Arterial Blood Glucose 183 H Arterial Blood Ionized Calcium 4.4 L Urine WBC (Auto) Salicylates Acetaminophen Hepatitis C Antibody 04/17/20 04/18/20 04/18/20 23:29 03:23 04:43 WBC RBC Hgb Hct RDW Plt Count Lymph % (Auto) [place] # (Auto) Seg Neutrophils % Seg Neuts % (Manual) Lymphocytes % (Manual) Monocytes % (Manual) Basophils % (Manual) Seg Neutrophils # Seg Neutrophils # Man Lymphocytes # (Manual) Monocytes # (Manual) Eosinophils # (Manual) Basophils # (Manual) D-Dimer ABG pH 7.486 H POC ABG pCO2 POC ABG pO2 56.4 L ABG pO2 ABG HCO3 ABG Base Excess ABG Hemoglobin 11.2 L ABG Oxyhemoglobin 92.0 L ABG Sodium 135.1 L ABG Chloride ABG Glucose 138 H Oxyhemoglobin Sodium Potassium Chloride Carbon Dioxide BUN Creatinine Glucose POC Glucose 125 H 119 H Lactic Acid Calcium Magnesium Ferritin Alkaline Phosphatase Lactate Dehydrogenase Total Creatine Kinase Troponin T C-Reactive Protein Albumin Triglycerides Cholesterol HDL Cholesterol Arterial Blood Glucose 138 H Arterial Blood Ionized Calcium 4.5 L Urine WBC (Auto) Salicylates Acetaminophen Hepatitis C Antibody 04/18/20 04/18/20 04/18/20 06:48 06:48 06:48 WBC 38.7 H RBC Hgb Hct RDW 16.3 H Plt Count 597 H Lymph % (Auto) [place] # (Auto) Seg Neutrophils % Seg Neuts % (Manual) Lymphocytes % (Manual) Monocytes % (Manual) Basophils % (Manual) Seg Neutrophils # Seg Neutrophils # Man Lymphocytes # (Manual) Monocytes # (Manual) Eosinophils # (Manual) Basophils # (Manual) D-Dimer 1144.77 H ABG pH POC ABG pCO2 POC ABG pO2 ABG pO2 ABG HCO3 ABG Base Excess ABG Hemoglobin ABG Oxyhemoglobin ABG Sodium ABG Chloride ABG Glucose Oxyhemoglobin Sodium 134 L Potassium Chloride 96.4 L Carbon Dioxide BUN 19 H Creatinine 2.6 H Glucose 104 H POC Glucose Lactic Acid Calcium Magnesium Ferritin Alkaline Phosphatase 413 H Lactate Dehydrogenase Total Creatine Kinase Troponin T C-Reactive Protein Albumin 2.8 L Triglycerides Cholesterol HDL Cholesterol Arterial Blood Glucose Arterial Blood Ionized Calcium Urine WBC (Auto) Salicylates Acetaminophen Hepatitis C Antibody 04/18/20 04/18/20 04/19/20 11:33 17:18 06:24 WBC 28.9 H RBC 3.33 L Hgb 9.5 L Hct 29.5 L RDW 16.0 H Plt Count 577 H Lymph % (Auto) [place] # (Auto) Seg Neutrophils % Seg Neuts % (Manual) Lymphocytes % (Manual) Monocytes % (Manual) Basophils % (Manual) Seg Neutrophils # Seg Neutrophils # Man Lymphocytes # (Manual) Monocytes # (Manual) Eosinophils # (Manual) Basophils # (Manual) D-Dimer ABG pH POC ABG pCO2 POC ABG pO2 ABG pO2 ABG HCO3 ABG Base Excess ABG Hemoglobin ABG Oxyhemoglobin ABG Sodium ABG Chloride ABG Glucose Oxyhemoglobin Sodium Potassium Chloride Carbon Dioxide BUN Creatinine Glucose POC Glucose 195 H 162 H Lactic Acid Calcium Magnesium Ferritin Alkaline Phosphatase Lactate Dehydrogenase Total Creatine Kinase Troponin T C-Reactive Protein Albumin Triglycerides Cholesterol HDL Cholesterol Arterial Blood Glucose Arterial Blood Ionized Calcium Urine WBC (Auto) Salicylates Acetaminophen Hepatitis C Antibody 04/19/20 04/19/20 04/20/20 06:24 17:28 07:50 WBC 22.7 H RBC 3.43 L Hgb 9.6 L Hct RDW 15.9 H Plt Count 530 H Lymph % (Auto) [place] # (Auto) Seg Neutrophils % Seg Neuts % (Manual) Lymphocytes % (Manual) Monocytes % (Manual) Basophils % (Manual) Seg Neutrophils # Seg Neutrophils # Man Lymphocytes # (Manual) Monocytes # (Manual) Eosinophils # (Manual) Basophils # (Manual) D-Dimer ABG pH POC ABG pCO2 POC ABG pO2 ABG pO2 ABG HCO3 ABG Base Excess ABG Hemoglobin ABG Oxyhemoglobin ABG Sodium ABG Chloride ABG Glucose Oxyhemoglobin Sodium Potassium Chloride Carbon Dioxide 31 H D BUN 27 H Creatinine 3.8 H Glucose POC Glucose 114 H Lactic Acid Calcium Magnesium Ferritin Alkaline Phosphatase 343 H Lactate Dehydrogenase Total Creatine Kinase Troponin T C-Reactive Protein Albumin 2.8 L Triglycerides Cholesterol HDL Cholesterol Arterial Blood Glucose Arterial Blood Ionized Calcium Urine WBC (Auto) Salicylates Acetaminophen Hepatitis C Antibody 04/20/20 04/21/20 04/21/20 07:50 00:42 04:32 WBC 16.4 H RBC 3.37 L Hgb 9.7 L Hct 30.0 L RDW 15.6 H Plt Count 597 H Lymph % (Auto) [place] # (Auto) Seg Neutrophils % Seg Neuts % (Manual) Lymphocytes % (Manual) Monocytes % (Manual) Basophils % (Manual) Seg Neutrophils # Seg Neutrophils # Man Lymphocytes # (Manual) Monocytes # (Manual) Eosinophils # (Manual) Basophils # (Manual) D-Dimer ABG pH POC ABG pCO2 POC ABG pO2 ABG pO2 ABG HCO3 ABG Base Excess ABG Hemoglobin ABG Oxyhemoglobin ABG Sodium ABG Chloride ABG Glucose Oxyhemoglobin Sodium Potassium Chloride Carbon Dioxide 31 H BUN Creatinine 2.8 H Glucose POC Glucose 119 H Lactic Acid Calcium Magnesium Ferritin Alkaline Phosphatase Lactate Dehydrogenase Total Creatine Kinase Troponin T C-Reactive Protein Albumin Triglycerides Cholesterol HDL Cholesterol Arterial Blood Glucose Arterial Blood Ionized Calcium Urine WBC (Auto) Salicylates Acetaminophen Hepatitis C Antibody 04/21/20 04/21/20 04/21/20 04:32 16:30 17:43 WBC RBC Hgb Hct RDW Plt Count Lymph % (Auto) [place] # (Auto) Seg Neutrophils % Seg Neuts % (Manual) Lymphocytes % (Manual) Monocytes % (Manual) Basophils % (Manual) Seg Neutrophils # Seg Neutrophils # Man Lymphocytes # (Manual) Monocytes # (Manual) Eosinophils # (Manual) Basophils # (Manual) D-Dimer ABG pH POC ABG pCO2 POC ABG pO2 ABG pO2 ABG HCO3 ABG Base Excess ABG Hemoglobin ABG Oxyhemoglobin ABG Sodium ABG Chloride ABG Glucose Oxyhemoglobin Sodium Potassium Chloride Carbon Dioxide BUN 25 H Creatinine 3.9 H Glucose 106 H POC Glucose 149 H 171 H Lactic Acid Calcium Magnesium Ferritin Alkaline Phosphatase 324 H Lactate Dehydrogenase Total Creatine Kinase Troponin T C-Reactive Protein Albumin 3.0 L Triglycerides Cholesterol HDL Cholesterol Arterial Blood Glucose Arterial Blood Ionized Calcium Urine WBC (Auto) Salicylates Acetaminophen Hepatitis C Antibody 04/22/20 04/22/20 04/22/20 00:59 03:50 03:50 WBC 15.5 H RBC Hgb Hct RDW Plt Count 629 H Lymph % (Auto) [place] # (Auto) Seg Neutrophils % Seg Neuts % (Manual) Lymphocytes % (Manual) Monocytes % (Manual) Basophils % (Manual) Seg Neutrophils # Seg Neutrophils # Man Lymphocytes # (Manual) Monocytes # (Manual) Eosinophils # (Manual) Basophils # (Manual) D-Dimer ABG pH POC ABG pCO2 POC ABG pO2 ABG pO2 ABG HCO3 ABG Base Excess ABG Hemoglobin ABG Oxyhemoglobin ABG Sodium ABG Chloride ABG Glucose Oxyhemoglobin Sodium Potassium Chloride Carbon Dioxide BUN Creatinine 2.6 H Glucose 131 H POC Glucose 128 H Lactic Acid Calcium Magnesium Ferritin Alkaline Phosphatase Lactate Dehydrogenase Total Creatine Kinase Troponin T C-Reactive Protein Albumin Triglycerides Cholesterol HDL Cholesterol Arterial Blood Glucose Arterial Blood Ionized Calcium Urine WBC (Auto) Salicylates Acetaminophen Hepatitis C Antibody 04/22/20 04/22/20 04/22/20 05:38 07:50 11:44 WBC RBC Hgb Hct RDW Plt Count Lymph % (Auto) [place] # (Auto) Seg Neutrophils % Seg Neuts % (Manual) Lymphocytes % (Manual) Monocytes % (Manual) Basophils % (Manual) Seg Neutrophils # Seg Neutrophils # Man Lymphocytes # (Manual) Monocytes # (Manual) Eosinophils # (Manual) Basophils # (Manual) D-Dimer ABG pH POC ABG pCO2 POC ABG pO2 ABG pO2 ABG HCO3 ABG Base Excess ABG Hemoglobin ABG Oxyhemoglobin ABG Sodium ABG Chloride ABG Glucose Oxyhemoglobin Sodium Potassium Chloride Carbon Dioxide BUN Creatinine Glucose POC Glucose 115 H 147 H 175 H Lactic Acid Calcium Magnesium Ferritin Alkaline Phosphatase Lactate Dehydrogenase Total Creatine Kinase Troponin T C-Reactive Protein Albumin Triglycerides Cholesterol HDL Cholesterol Arterial Blood Glucose Arterial Blood Ionized Calcium Urine WBC (Auto) Salicylates Acetaminophen Hepatitis C Antibody 04/22/20 04/23/20 04/23/20 16:41 00:12 08:26 WBC RBC Hgb Hct RDW Plt Count Lymph % (Auto) [place] # (Auto) Seg Neutrophils % Seg Neuts % (Manual) Lymphocytes % (Manual) Monocytes % (Manual) Basophils % (Manual) Seg Neutrophils # Seg Neutrophils # Man Lymphocytes # (Manual) Monocytes # (Manual) Eosinophils # (Manual) Basophils # (Manual) D-Dimer ABG pH POC ABG pCO2 POC ABG pO2 ABG pO2 ABG HCO3 ABG Base Excess ABG Hemoglobin ABG Oxyhemoglobin ABG Sodium ABG Chloride ABG Glucose Oxyhemoglobin Sodium Potassium Chloride Carbon Dioxide BUN Creatinine Glucose POC Glucose 180 H 175 H Lactic Acid Calcium Magnesium Ferritin Alkaline Phosphatase 308 H Lactate Dehydrogenase Total Creatine Kinase Troponin T C-Reactive Protein Albumin 3.2 L Triglycerides Cholesterol HDL Cholesterol Arterial Blood Glucose Arterial Blood Ionized Calcium Urine WBC (Auto) Salicylates Acetaminophen Hepatitis C Antibody 04/23/20 04/23/20 04/23/20 08:44 12:36 16:43 WBC RBC Hgb Hct RDW Plt Count Lymph % (Auto) [place] # (Auto) Seg Neutrophils % Seg Neuts % (Manual) Lymphocytes % (Manual) Monocytes % (Manual) Basophils % (Manual) Seg Neutrophils # Seg Neutrophils # Man Lymphocytes # (Manual) Monocytes # (Manual) Eosinophils # (Manual) Basophils # (Manual) D-Dimer ABG pH POC ABG pCO2 POC ABG pO2 ABG pO2 ABG HCO3 ABG Base Excess ABG Hemoglobin ABG Oxyhemoglobin ABG Sodium ABG Chloride ABG Glucose Oxyhemoglobin Sodium Potassium Chloride Carbon Dioxide BUN Creatinine Glucose POC Glucose 171 H 165 H 196 H Lactic Acid Calcium Magnesium Ferritin Alkaline Phosphatase Lactate Dehydrogenase Total Creatine Kinase Troponin T C-Reactive Protein Albumin Triglycerides Cholesterol HDL Cholesterol Arterial Blood Glucose Arterial Blood Ionized Calcium Urine WBC (Auto) Salicylates Acetaminophen Hepatitis C Antibody 04/24/20 04/24/20 04/24/20 00:08 09:09 16:42 WBC RBC Hgb Hct RDW Plt Count Lymph % (Auto) [place] # (Auto) Seg Neutrophils % Seg Neuts % (Manual) Lymphocytes % (Manual) Monocytes % (Manual) Basophils % (Manual) Seg Neutrophils # Seg Neutrophils # Man Lymphocytes # (Manual) Monocytes # (Manual) Eosinophils # (Manual) Basophils # (Manual) D-Dimer ABG pH POC ABG pCO2 POC ABG pO2 ABG pO2 ABG HCO3 ABG Base Excess ABG Hemoglobin ABG Oxyhemoglobin ABG Sodium ABG Chloride ABG Glucose Oxyhemoglobin Sodium Potassium Chloride Carbon Dioxide BUN Creatinine Glucose POC Glucose 150 H 165 H 166 H Lactic Acid Calcium Magnesium Ferritin Alkaline Phosphatase Lactate Dehydrogenase Total Creatine Kinase Troponin T C-Reactive Protein Albumin Triglycerides Cholesterol HDL Cholesterol Arterial Blood Glucose Arterial Blood Ionized Calcium Urine WBC (Auto) Salicylates Acetaminophen Hepatitis C Antibody 04/24/20 04/25/20 04/25/20 22:44 05:23 11:48 WBC RBC Hgb Hct RDW Plt Count Lymph % (Auto) [place] # (Auto) Seg Neutrophils % Seg Neuts % (Manual) Lymphocytes % (Manual) Monocytes % (Manual) Basophils % (Manual) Seg Neutrophils # Seg Neutrophils # Man Lymphocytes # (Manual) Monocytes # (Manual) Eosinophils # (Manual) Basophils # (Manual) D-Dimer ABG pH POC ABG pCO2 POC ABG pO2 ABG pO2 ABG HCO3 ABG Base Excess ABG Hemoglobin ABG Oxyhemoglobin ABG Sodium ABG Chloride ABG Glucose Oxyhemoglobin Sodium Potassium Chloride Carbon Dioxide BUN Creatinine Glucose POC Glucose 226 H 293 H 256 H Lactic Acid Calcium Magnesium Ferritin Alkaline Phosphatase Lactate Dehydrogenase Total Creatine Kinase Troponin T C-Reactive Protein Albumin Triglycerides Cholesterol HDL Cholesterol Arterial Blood Glucose Arterial Blood Ionized Calcium Urine WBC (Auto) Salicylates Acetaminophen Hepatitis C Antibody 04/25/20 04/25/20 04/26/20 17:31 23:30 05:02 WBC RBC Hgb Hct RDW Plt Count Lymph % (Auto) [place] # (Auto) Seg Neutrophils % Seg Neuts % (Manual) Lymphocytes % (Manual) Monocytes % (Manual) Basophils % (Manual) Seg Neutrophils # Seg Neutrophils # Man Lymphocytes # (Manual) Monocytes # (Manual) Eosinophils # (Manual) Basophils # (Manual) D-Dimer ABG pH POC ABG pCO2 POC ABG pO2 ABG pO2 ABG HCO3 ABG Base Excess ABG Hemoglobin ABG Oxyhemoglobin ABG Sodium ABG Chloride ABG Glucose Oxyhemoglobin Sodium Potassium Chloride Carbon Dioxide BUN Creatinine Glucose POC Glucose 294 H 296 H 280 H Lactic Acid Calcium Magnesium Ferritin Alkaline Phosphatase Lactate Dehydrogenase Total Creatine Kinase Troponin T C-Reactive Protein Albumin Triglycerides Cholesterol HDL Cholesterol Arterial Blood Glucose Arterial Blood Ionized Calcium Urine WBC (Auto) Salicylates Acetaminophen Hepatitis C Antibody 04/26/20 04/26/20 04/26/20 11:50 13:30 14:26 WBC RBC Hgb Hct RDW Plt Count Lymph % (Auto) [place] # (Auto) Seg Neutrophils % Seg Neuts % (Manual) Lymphocytes % (Manual) Monocytes % (Manual) Basophils % (Manual) Seg Neutrophils # Seg Neutrophils # Man Lymphocytes # (Manual) Monocytes # (Manual) Eosinophils # (Manual) Basophils # (Manual) D-Dimer ABG pH POC ABG pCO2 POC ABG pO2 66.4 L ABG pO2 ABG HCO3 ABG Base Excess ABG Hemoglobin ABG Oxyhemoglobin ABG Sodium ABG Chloride ABG Glucose 344 H Oxyhemoglobin Sodium Potassium Chloride Carbon Dioxide BUN Creatinine Glucose POC Glucose 262 H Lactic Acid 2.30 H* Calcium Magnesium Ferritin Alkaline Phosphatase Lactate Dehydrogenase Total Creatine Kinase Troponin T C-Reactive Protein Albumin Triglycerides Cholesterol HDL Cholesterol Arterial Blood Glucose 344 H Arterial Blood Ionized Calcium Urine WBC (Auto) Salicylates Acetaminophen Hepatitis C Antibody 04/26/20 04/26/20 04/26/20 14:26 14:26 17:10 WBC 33.9 H RBC Hgb Hct RDW 15.5 H Plt Count Lymph % (Auto) [place] # (Auto) Seg Neutrophils % Seg Neuts % (Manual) 84.0 H Lymphocytes % (Manual) 7.0 L Monocytes % (Manual) 8.0 H Basophils % (Manual) Seg Neutrophils # Seg Neutrophils # Man 28.5 H Lymphocytes # (Manual) Monocytes # (Manual) 2.7 H Eosinophils # (Manual) Basophils # (Manual) D-Dimer ABG pH POC ABG pCO2 POC ABG pO2 ABG pO2 ABG HCO3 ABG Base Excess ABG Hemoglobin ABG Oxyhemoglobin ABG Sodium ABG Chloride ABG Glucose Oxyhemoglobin Sodium 135 L Potassium Chloride Carbon Dioxide 18 L D BUN 27 H Creatinine 3.3 H Glucose 316 H POC Glucose 238 H Lactic Acid Calcium Magnesium Ferritin Alkaline Phosphatase Lactate Dehydrogenase Total Creatine Kinase Troponin T C-Reactive Protein Albumin Triglycerides Cholesterol HDL Cholesterol Arterial Blood Glucose Arterial Blood Ionized Calcium Urine WBC (Auto) Salicylates Acetaminophen Hepatitis C Antibody 04/26/20 04/27/20 04/27/20 23:00 04:46 05:11 WBC RBC Hgb Hct RDW Plt Count Lymph % (Auto) [place] # (Auto) Seg Neutrophils % Seg Neuts % (Manual) Lymphocytes % (Manual) Monocytes % (Manual) Basophils % (Manual) Seg Neutrophils # Seg Neutrophils # Man Lymphocytes # (Manual) Monocytes # (Manual) Eosinophils # (Manual) Basophils # (Manual) D-Dimer ABG pH 7.461 H POC ABG pCO2 POC ABG pO2 68.8 L ABG pO2 ABG HCO3 ABG Base Excess ABG Hemoglobin 11.2 L ABG Oxyhemoglobin ABG Sodium 135.0 L ABG Chloride ABG Glucose 276 H Oxyhemoglobin Sodium Potassium Chloride Carbon Dioxide BUN Creatinine Glucose POC Glucose 168 H 247 H Lactic Acid Calcium Magnesium Ferritin Alkaline Phosphatase Lactate Dehydrogenase Total Creatine Kinase Troponin T C-Reactive Protein Albumin Triglycerides Cholesterol HDL Cholesterol Arterial Blood Glucose 276 H Arterial Blood Ionized Calcium Urine WBC (Auto) Salicylates Acetaminophen Hepatitis C Antibody 04/27/20 04/27/20 04/27/20 13:01 16:59 23:00 WBC RBC Hgb Hct RDW Plt Count Lymph % (Auto) [place] # (Auto) Seg Neutrophils % Seg Neuts % (Manual) Lymphocytes % (Manual) Monocytes % (Manual) Basophils % (Manual) Seg Neutrophils # Seg Neutrophils # Man Lymphocytes # (Manual) Monocytes # (Manual) Eosinophils # (Manual) Basophils # (Manual) D-Dimer ABG pH POC ABG pCO2 POC ABG pO2 ABG pO2 ABG HCO3 ABG Base Excess ABG Hemoglobin ABG Oxyhemoglobin ABG Sodium ABG Chloride ABG Glucose Oxyhemoglobin Sodium Potassium Chloride Carbon Dioxide BUN Creatinine Glucose POC Glucose 304 H 362 H 328 H Lactic Acid Calcium Magnesium Ferritin Alkaline Phosphatase Lactate Dehydrogenase Total Creatine Kinase Troponin T C-Reactive Protein Albumin Triglycerides Cholesterol HDL Cholesterol Arterial Blood Glucose Arterial Blood Ionized Calcium Urine WBC (Auto) Salicylates Acetaminophen Hepatitis C Antibody 04/28/20 04/28/20 04/28/20 04:12 04:54 05:52 WBC 35.7 H RBC Hgb Hct RDW 16.0 H Plt Count Lymph % (Auto) 10.9 L [place] # (Auto) 2.1 H Seg Neutrophils % 81.9 H Seg Neuts % (Manual) Lymphocytes % (Manual) Monocytes % (Manual) Basophils % (Manual) Seg Neutrophils # 29.2 H Seg Neutrophils # Man Lymphocytes # (Manual) Monocytes # (Manual) Eosinophils # (Manual) Basophils # (Manual) D-Dimer ABG pH POC ABG pCO2 POC ABG pO2 ABG pO2 ABG HCO3 ABG Base Excess ABG Hemoglobin 10.7 L ABG Oxyhemoglobin ABG Sodium 133.2 L ABG Chloride ABG Glucose 322 H Oxyhemoglobin Sodium Potassium Chloride Carbon Dioxide BUN Creatinine Glucose POC Glucose 315 H Lactic Acid Calcium Magnesium Ferritin Alkaline Phosphatase Lactate Dehydrogenase Total Creatine Kinase Troponin T C-Reactive Protein Albumin Triglycerides Cholesterol HDL Cholesterol Arterial Blood Glucose 322 H Arterial Blood Ionized Calcium Urine WBC (Auto) Salicylates Acetaminophen Hepatitis C Antibody 04/28/20 04/28/20 05:52 11:47 WBC RBC Hgb Hct RDW Plt Count Lymph % (Auto) [place] # (Auto) Seg Neutrophils % Seg Neuts % (Manual) Lymphocytes % (Manual) Monocytes % (Manual) Basophils % (Manual) Seg Neutrophils # Seg Neutrophils # Man Lymphocytes # (Manual) Monocytes # (Manual) Eosinophils # (Manual) Basophils # (Manual) D-Dimer ABG pH POC ABG pCO2 POC ABG pO2 ABG pO2 ABG HCO3 ABG Base Excess ABG Hemoglobin ABG Oxyhemoglobin ABG Sodium ABG Chloride ABG Glucose Oxyhemoglobin Sodium 134 L Potassium Chloride 96.4 L Carbon Dioxide 20 L BUN 62 H Creatinine 5.1 H D Glucose 371 H POC Glucose 352 H Lactic Acid Calcium Magnesium Ferritin Alkaline Phosphatase 260 H Lactate Dehydrogenase Total Creatine Kinase Troponin T C-Reactive Protein Albumin 3.0 L Triglycerides Cholesterol HDL Cholesterol Arterial Blood Glucose Arterial Blood Ionized Calcium Urine WBC (Auto) Salicylates Acetaminophen Hepatitis C Antibody Allied health notes reviewed: nursing
[2020-04-28] MEDS: metroNIDAZOLE/NS 500 MG/100 ML 500 MG/100 ML BAG IV SCH ×2 (17:52→22:28)
[2020-04-29 05:42] LABS: Hemoglobin 10.3 gm/dl (10.1-14.3); Mean Corpuscular HGB Conc 32 % (30-34); Mean Corpuscular Volume 88 fl (79-97); Platelet Count 293 K/mm3 (140-440); Red Blood Count 3.63 M/mm3 (3.65-5.03); Red Cell Distribution Width 15.9 % (13.2-15.2)
[2020-04-29 06:01] LABS: Albumin 3.2 g/dL (3.9-5); Calcium 9.6 mg/dL (8.4-10.2)
[2020-04-29 07:05] LABS: Anisocytosis 1+; Band Neutrophils # (Manual) 0.5 K/mm3; Basophils % (Manual) 0 % (0.0-1.8); Large Platelets Few; Total Cells Counted 100
[2020-04-29 07:06] LABS: Platelet Estimate Consistent w Auto
[2020-04-29] MEDS: INSULIN GLARGINE 100 UNITS/ML SUB-Q SCH (10:36)
[2020-04-29] MEDS: metroNIDAZOLE/NS 500 MG/100 ML 500 MG/100 ML BAG IV SCH ×2 (10:39→15:29)
[2020-04-29] MEDS: INSULIN REGULAR, HUMAN 100 UNIT/ML 3ML VIAL SUB-Q SCH ×3 (10:42→12:45)
[2020-04-29] MEDS: carvediloL 12.5 MG TAB PO SCH (10:48)
[2020-04-29] MEDS: MIDODRINE 5 MG TAB PO SCH ×2 (10:48→15:30)
[2020-04-29] MEDS: LANSOPRAZOLE 30 MG SOLUTAB FEEDTUBE SCH (10:49)
[2020-04-29] MEDS: MULTIVITAMINS 5 ML ORAL LIQUID PO SCH (10:50)
[2020-04-29] MEDS: ARIPiprazole 5 MG TAB PO SCH (10:50)
[2020-04-29] MEDS: LOSARTAN 25 MG TAB PO SCH (10:51)
[2020-04-29] MEDS: CALCIUM ACETATE 667 MG CAP PO SCH (10:52)
[2020-04-29] MEDS: HEPARIN 5,000 UNIT/1 ML VIAL SUB-Q SCH (10:52)
[2020-04-29] MEDS ORDERED: SODIUM CHLORIDE 0.9% 100 ML IV PRN ×2 (12:14→15:25)
--- NOTE | 2020-04-29 12:14 | Progress Note ---
Assessment and Plan Impression: * End stage renal disease * Sepsis * Positive blood cx - likely contaminant --Blood cx: staph epi (05/29 bottles - Apr 06) * Acute hypoxic respiratory failure * Acute encephalopathy * Acute ischemic stroke * UTI * Hx of COVID 19 --SARS Cov2 PCR negative Apr 07 * Metabolic acidosis * Pneumonia Plan: * Patient requiring more oxygen. Currently on 80% FiO2. * Chest x-ray does show a component of volume overload. Shall dialyze her again today. * UF as tolerated * Abx per ID, input reviewed * neurology notes reviewed * Dose medications for renal function * GI notes appreciated. * WBC count noted to be higher. Patient currently also has a PermCath in place. Blood cultures negative 24 hours Subjective Date of service: 04/29/20 Principal diagnosis: Ac on ch hypoxemic and hypercapnic resp failure; PUI COVID- 19 infxn; AMS Interval history: Patient remains on the ventilator. Currently on 80% FiO2. Sedated. Objective - Vital Signs Vital signs: Vital Signs - 12hr 04/29/20 04/29/20 04/29/20 00:15 00:25 00:30 Temperature Pulse Rate 94 H 96 H 93 H Blood Pressure 147/54 133/50 151/42 O2 Sat by Pulse 96 97 97 Oximetry 04/29/20 04/29/20 04/29/20 00:45 01:01 01:15 Temperature Pulse Rate 91 H 95 H 93 H Blood Pressure 151/42 139/56 136/61 O2 Sat by Pulse 97 97 97 Oximetry 04/29/20 04/29/20 04/29/20 01:30 01:45 02:00 Temperature Pulse Rate 94 H 94 H 93 H Blood Pressure 131/53 134/41 124/39 O2 Sat by Pulse 95 98 96 Oximetry 04/29/20 04/29/20 04/29/20 02:15 02:30 02:45 Temperature Pulse Rate 93 H 94 H 95 H Blood Pressure 126/49 131/46 126/49 O2 Sat by Pulse 98 97 97 Oximetry 04/29/20 04/29/20 04/29/20 03:00 03:10 03:15 Temperature 99.4 F Pulse Rate 93 H 91 H Blood Pressure 141/51 149/44 O2 Sat by Pulse 98 99 Oximetry 04/29/20 04/29/20 04/29/20 03:30 03:45 04:00 Temperature Pulse Rate 98 H 94 H 104 H Blood Pressure 147/62 137/43 147/45 O2 Sat by Pulse 98 99 87 Oximetry 04/29/20 04/29/20 04/29/20 04:15 04:18 04:31 Temperature Pulse Rate 103 H 104 H 104 H Blood Pressure 147/45 144/42 144/42 O2 Sat by Pulse 80 L 86 92 Oximetry 04/29/20 04/29/20 04/29/20 04:45 05:01 05:15 Temperature Pulse Rate 107 H 108 H 107 H Blood Pressure 144/42 144/42 144/42 O2 Sat by Pulse 96 96 96 Oximetry 04/29/20 04/29/20 04/29/20 05:31 05:45 06:00 Temperature Pulse Rate 105 H 106 H 106 H Blood Pressure 145/51 145/51 147/63 O2 Sat by Pulse 91 84 81 L Oximetry 04/29/20 04/29/20 04/29/20 06:15 06:30 06:45 Temperature Pulse Rate 109 H 111 H 110 H Blood Pressure 171/54 141/69 163/56 O2 Sat by Pulse 88 86 95 Oximetry 04/29/20 04/29/20 04/29/20 07:01 07:15 07:30 Temperature Pulse Rate 111 H 107 H 101 H Blood Pressure 141/37 141/37 139/44 O2 Sat by Pulse 98 97 97 Oximetry 04/29/20 04/29/20 04/29/20 07:45 08:00 08:01 Temperature 100.8 F H Pulse Rate 93 H 90 91 H Blood Pressure 139/44 103/24 O2 Sat by Pulse 97 98 Oximetry 04/29/20 04/29/20 04/29/20 08:05 08:15 09:12 Temperature Pulse Rate 90 91 H 94 H Blood Pressure 96/23 96/23 123/43 O2 Sat by Pulse 96 98 98 Oximetry 04/29/20 11:41 Temperature Pulse Rate 97 H Blood Pressure 144/54 O2 Sat by Pulse 96 Oximetry - General Appearance General appearance: well-developed, well-nourished, appears stated age, intubated EENT: PERRL, mucous membranes moist Neck: no JVD, no thyromegaly, no carotid bruit, supple, other (Right IJ PermCath in place) Respiratory: Present: Rales (At the bases) Gastrointestinal: normal, normoactive bowel sounds Integumentary: other (Bilateral below-knee amputation) - Lab 04/29/20 04:17 04/29/20 04:17 Most recent lab results ABG pH 7.434 (7.320-7.450) 04/29/20 03:45 ABG pCO2 54.0 mm Hg 04/11/20 03:44 ABG pO2 73.4 mm Hg (80.0-90.0) L 04/11/20 03:44 ABG HCO3 26.7 mmol/L (20.0-26.0) H 04/11/20 03:44 ABG O2 Saturation 95.0 % (95.0-99.0) 04/11/20 03:44 Calcium 9.6 mg/dL (8.4-10.2) 04/29/20 04:17 Phosphorus 3.00 mg/dL (2.5-4.5) 04/17/20 05:44 Magnesium 2.00 mg/dL (1.7-2.3) 04/17/20 05:44 Medications & Allergies - Medications Allergies/Adverse Reactions: Allergies carrot Allergy (Verified 07/28/19 12:30) Hives erythromycin base Allergy (Verified 07/30/19 11:26) Hives latex Allergy (Verified 02/18/19 13:20) Rash peas Allergy (Verified 12/20/19 12:37) Hives vancomycin Allergy (Verified 12/31/19 15:46) Hives Home Medications: Home Medications Medication Instructions Recorded Confirmed Last Taken Type Aripiprazole 5 mg PO DAILY 02/18/19 04/06/20 02/17/19 History Benadryl CAP 25 mg PO Q8H PRN 02/18/19 04/06/20 02/17/19 History Calcium Acetate 667 mg PO TIDWM 02/18/19 04/06/20 02/17/19 History Carvedilol 6.25 mg PO Q12H 02/18/19 04/06/20 02/17/19 History Colace CAP 100 mg PO Q12H PRN 02/18/19 04/06/20 02/17/19 History Esomeprazole Magnesium 40 mg PO QDAC 02/18/19 04/06/20 02/17/19 History HumaLOG 10 units SUB-Q TIDWM 02/18/19 04/06/20 02/17/19 History Insulin Detemir (Nf) [Levemir See Protocol SQ QHS 02/18/19 04/06/20 02/17/19 History Flextouch (Nf)] Losartan Potassium 50 mg PO DAILY 02/18/19 04/06/20 02/17/19 History Lyrica 75 mg PO Q12H 02/18/19 04/06/20 02/17/19 History Melatonin 6 mg PO QHS 02/18/19 04/06/20 02/17/19 History Senna 17.2 mg PO QHS PRN 02/18/19 04/06/20 02/17/19 History Venlafaxine HCl [Venlafaxine HCl 150 mg PO QDAC 02/18/19 04/06/20 02/17/19 History ER] Vitamin C 250 mg PO DAILY 02/18/19 04/06/20 02/17/19 History ZyrTEC 10mg cap 10 mg PO DAILY 02/18/19 04/06/20 02/17/19 History Calcium Acetate [Phoslo] 667 mg PO TIDWM capsule 12/22/19 04/06/20 Unknown Rx Fe Fumarate/FA/Mv, Min Comb#15 1 each PO QDAY capsule 12/22/19 04/06/20 Unknown Rx [Hemocyte Plus] Albuterol Mdi (or & Nicu Only) 2.5 puff IH Q4HRT PRN inha 01/12/20 04/06/20 Unknown Rx [ProAir HFA Inhaler] dexAMETHasone [Decadron] 6 mg PO Q12HR #10 tablet 01/12/20 04/06/20 Unknown Rx oxyCODONE 5 mg PO Q6H PRN #10 01/12/20 04/06/20 Unknown Rx Active Medications: Generic Name Dose Route Start Last Admin Trade Name Freq PRN Reason Stop Dose Admin Acetaminophen 650 mg 04/06/20 16:39 Tylenol PO Q6H PRN Pain, Mild (1-3) Albuterol 2.5 mg 04/27/20 09:00 Proventil IH Q4HRT PRN Shortness Of Breath Lipase/Protease/Amylase 1 each 04/26/20 16:00 Jeremy Reyes 10,500 Unit FEEDTUBE PRN PRN For Clogged Feeding Tube Aripiprazole 5 mg 04/23/20 10:00 04/29/20 10:50 Aripiprazole PO 5 mg DAILY NOEL Administration Calcium Acetate 667 mg 04/22/20 17:00 04/29/20 10:52 Phoslo PO 667 mg TIDWM NOEL Administration Carvedilol 12.5 mg 04/28/20 10:00 04/29/20 10:48 Coreg PO 12.5 mg BID NOEL Administration Clonidine HCl 0.1 mg 04/25/20 08:00 04/25/20 11:10 Catapres-Tts Patch TD Not [place] [facility] [place] 50 ml 04/09/20 16:30 D50w (25gm) Syringe IV Q30MIN PRN Hypoglycemia Protocol Docusate Sodium 100 mg 04/22/20 12:17 Colace PO Q12H PRN Constipation Fentanyl 50 mcg 04/26/20 13:00 Sublimaze IV Q10MIN PRN ANALGESIA Heparin Sodium (Porcine) 5,000 unit 04/06/20 22:00 04/29/20 10:52 Heparin SUB-Q 5,000 unit Q12HR [facility] Administration Hydromorphone HCl 1 mg 04/18/20 14:22 04/25/20 03:35 Dilaudid IV 1 mg Q4H PRN Administration Pain , Severe (7-10) Hydrophilic Ointment 1 applic 04/06/20 13:34 Vaseline Lip Therapy TP Q2HR PRN Dry Lips Sodium Chloride 100 mls @ 999 mls/hr 04/07/20 17:00 Nacl 0.9% IV SPRING PRN Hypotension Fentanyl Citrate 2,000 mcg in 100 mls @ 5.505 mls/hr 04/26/20 13:00 Fentanyl Drip Premix IV TITR NOEL Protocol 1 MCG/KG/HR Metronidazole 500 mg in 100 mls @ 100 mls/hr 04/28/20 16:30 04/29/20 10:39 Flagyl 500 Mg/100 Ml IV 100 mls/hr Q8HR NOEL Administration Protocol Insulin Glargine 25 units 04/28/20 10:00 04/29/20 10:36 Lantus SUB-Q 25 units Q24HR [facility] Administration Insulin Human Regular 0 unit 04/09/20 18:00 04/29/20 10:44 Humulin R SUB-Q 10 unit Q6H NOEL Administration Protocol Labetalol HCl 10 mg 04/08/20 17:17 04/24/20 22:37 Labetalol IV 10 mg Q4H PRN Administration Blood Pressure Lansoprazole 30 mg 04/26/20 14:00 04/29/20 10:49 Prevacid Solutab FEEDTUBE 30 mg QDAY NOEL Administration Losartan Potassium 25 mg 04/22/20 15:00 04/29/20 10:51 Cozaar PO 25 mg QDAY NOEL Administration Midodrine 10 mg 04/27/20 14:15 04/29/20 10:48 Proamatine PO 10 mg TID NOEL Administration Multi-Ingred Cream/Lotion/Oil/Oint 1 applic 04/06/20 13:34 Artificial Tears Ophth Oint OU Q4HR PRN Dry Eye(s) Multivitamins 5 ml 04/27/20 11:00 04/29/20 10:50 Centrum Liq PO 5 ml QDAY NOEL Administration Ondansetron HCl 4 mg 04/18/20 07:45 04/22/20 15:14 Zofran IV 4 mg Q4H PRN Administration Nausea And Vomiting Simple Syrup 15 ml 04/26/20 16:00 Simple Syrup FEEDTUBE PRN PRN Hypoglycemia Simple Syrup 30 ml 04/26/20 16:00 Simple Syrup FEEDTUBE PRN PRN Hypoglycemia Sodium Bicarbonate 325 mg 04/26/20 16:00 Sodium Bicarbonate FEEDTUBE PRN PRN For Clogged Feeding Tube Sodium Chloride 10 ml 04/06/20 22:00 04/28/20 22:29 Sodium Chloride Flush Syringe 10 Ml IV 10 ml BID NOEL Administration Sodium Chloride 10 ml 04/06/20 16:32 04/25/20 03:36 Sodium Chloride Flush Syringe 10 Ml IV 10 ml PRN PRN Administration LINE FLUSH
--- NOTE | 2020-04-29 13:01 | Progress Note ---
Assessment and Plan Assessment and plan: 49 years old female with history of asthma, hypertension, end-stage renal disease on hemodialysis, diabetes mellitus, bipolar disorder, morbid obesity, CVA, [facility] a [facility], admitted on 04/06/2020 secondary to be found Unresponsiveness after hemodialysis. Patient is unable to provide history, currently intubated. Patient received hemodialysis and after completion she became unresponsive. Upon EMS arrival, blood pressure was 90/60, HR 88, temperature 97.2. Per records, patient was not complaining of any symptoms. On arrival, temperature 94.1, HR 66, RR 18, O2 sat 87%, BP 131/111. Initial WBC 19.2. Urinalysis showed more than 182 WBCs and moderate leukocyte esterase. Chest x-ray shows bibasilar infiltrates. Patient was intubated in the emergency room to protect airway. Bains catheter was placed yielding purulent urine. Severe sepsis. Present on admission with hypothermia, leukocytosis, altered mental status, likely due to bilateral pneumonia. F/U Blood Cx. Cont. Abx pre ID Bilateral pneumonia. Aspiration pneumonia/HAP illness induced Gastroparesis: Stable Severe UTI. Bains catheter with purulent urine. Acute hypoxemic and hypercapnic respiratory failure. Intubated for airway protection, O2 sats down to 87%. Acute toxic metabolic encephalopathy. Etiology secondary to sepsis Bibasilar atelectasis, End-stage renal disease on hemodialysis Anemia of chronic renal disease vancomycin allergy ? Causing hives. PER ID documentation at other hosptial does not show vanc allergy Chronic leukocytosis, appears so based on review of records from here and [facility] in the past were reviewed. Chronic Hepatitis C: treatment status unknown. F/U HCV RNA PCR. Extensive Candidal intertrigo in groin and vagina. Cont. Fluconazole Intractable nausea with vomiting. 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 Patient remains intubated on mechanical ventilation with AC mode ventilation rate 12, tidal volume 450, FiO2 40% and a PEEP of 6. Continue weaning per protocols. Patient with ESRD and continue TTS schedule per nephrology. Patient does have a history of COVID-19 infection(01/07/20) but negative testing April 07. Follow-up blood/urine/sputum culture. Continue antibiotics per ID recommendations. 04/09/2020. Patient not tolerating PSV 12/6 with FiO2 of 30%. Continue hemod ialysis per nephrology recommendations. Continue IV antibiotics per ID recommendations. Blood cultures no growth to date. Respiratory therapy reports patient with accelerated hypertension and apneic episodes on PSV ventilation. Await pulmonary recommendations. 04/10/2020. Patient remains on mechanical ventilation AC mode rate 12, tidal volume 450, FiO2 30% and a PEEP of 6. Continue PSV trials per protocols. Continue hemodialysis per nephrology recommendations. Continue anti-infectives of fluconazole and cefepime. Follow-up blood/urine/sputum culture. ID, pulmonary and nephrology following. 04/11/2020; patient remains on mechanical ventilation AC mode rate 12, tidal volume 450, FiO2 of 30 and PEEP of 6. Continue PSV trials per protocols. continue hemodialysis per nephrology. ID changed antibiotics to meropenem. Blood culture grew staph epidermidis likey contaminant. 04/12/2020; patient is intubated, patient open eyes spontaneously. Neurology consulted and continue on replacement treatment. EEG is pending. Recommend MRI. Patient is on meropenem per ID recommendation. Pulmonary is following. Patient is on spontaneous breathing trial 04/13/2020; patient is intubated. Patient's blood pressure was high yesterday, amlodipine and hydralazine was added. Overnight his blood pressure was low and will also BP medications. We will continue to follow. 04/14/2020; patient is intubated and blood pressure is on the low side of normal. Patient is on meropenem 5/5. 04/15/2020; patient is intubated, on spontaneous breathing trial. Pulmonary is following. neurology recommend MRI. 04/16/2020; patient is intubated, on spontaneous breathing trial. Pulmonary is following. Neurology recommend MRI once stable. 04/17: Patient showing some clinical improvement. MRI still pending. Continues on restraints weaning trial today. Antibiotics per ID continue aspiration precautions although management by critical care physician. Noted elevated D- dimer level with trend. See ultrasound of the lower extremity was negative for DVT. Prior hospitalization showed elevated D-dimer also. Will discuss with nephrology if patient needs CTA to see if this can be managed with dialysis. This will be done if patient is unable to wean from the vent due to hypoxia. 04/18: Patient required re-intubation last night due to self extubation and decompensation with hypoxia. CXR post extubation showed tube in expected position. Patient also noted to have large projectile vomiting. - Obtain KUB - start Zofran - Hold tube feeds - May benefit from GI eval if vomiting continues. - She is currently being treated for Aspiration Pneumonia with bactermia and Acute cystitis 04/19: Now extubated, Continue supportive care and aspiration precautions. Patient complaining of chronic pain, will resume home dose pain meds and avoid oversedation. No new seizure noted. still awaiting MRI brain. GI input noted: illness induced gastropoaresis, otherwise KUB and LFT normal, will start low fat fiber diet once patient able to tolerate PO. Continue to monitor WBC, increased again today. 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 Unless indicated by Intesivist will like to monitor patient in the ICU for additional 24 hrs before downgrading. 04/20: CONTINUE Aspiration precautions, started on D5NS for low Blood glucose. Speech re-eval today. PAIN CONTROL 04/21: Continue aspiration precautions. Blood sugar stable continue to monitor WBC count. Will reassess with speech evaluation continue restraints due to aggressive behavior towards nurses and pulling on shelving. Monitor mental status. 04/22: patient complains of nasuea, will start on Reglan IV prn. CONTINUE supportive care. 04/23: Patient continues on restraints. She tells me that she has a history of Gastroparesis. Will start IV reglan., check ct abdomen and pelvis. repeat speech eval and may need PEG if still not tolerating Diet. She will benefit from a food safety technician 04/24: Awaiting repeat speech evaluation. Office summary patient was admitted on 04/06/2020 with unresponsiveness after hemodialysis and no [facility] resident and also with noted-gastroparesis. Patient was treated for fluid overload also with some antibiotics including antifungal. Cultures were unremarkable. CT of the abdomen repeated yesterday showed some perinephric stranding with patchy bibasilar airspace disease concerning for pneumonia. Will place empirically on Keflex. And monitor closely. If patient passes swallow evaluation can work on discharge back to [facility] tomorrow if not GI should be consulted for possible PEG placement. Mental status is improving. 04/25: patient remains lethergic, has failed swallow eval, has chronic Gastroparesis and also persistent Encephalopathy, will plan for PEG tube placement prior to discharge back to [facility]. 04/26: Patient reintubated today due to agonal breathing with altered sensorium while a CODE BLUE was called did not require CPR. Will obtain a EEG, CT of the head, echocardiogram if this has not been done. I have discussed with family and updated them about her prognosis considering recurrent readmission. Patient was planned for PEG tube but this has been put on hold at this time. 04/27: Remains on full mechanical support continue current management. 04/28: Patient continues to exhibit some exacerbation of metabolic encephalopathy with altered sensorium during dialysis recurrent agitation and agonal breathing. Will obtain neurological evaluation. We will also obtain a chest x-ray. Patient may also benefit from a cardiac evaluation. 04/29: Clinically detoriating, unable to do dialysis today, bp LOW. FAMILY CONTACTED, ADVANCE DIRECTIVE DISCUSSION 30 MINS. Made AND The high probability of a clinically significant, sudden or life threatening deterioration of the [pulmonary, neurology, renal] system(s) required my full and direct attention, intervention and personal management. The aggregate critical care time was [35] minutes. This time is in addition to time spent performing reported procedures but includes the following: [X] Data Review and interpretation [X] Patient assessment and monitoring of vital signs [X] Documentation [X] Medication orders and management History Interval history: Patient seen and examined, remains in the ICU with mechanical ventilation, according to nursing staff did wake up and follow commands but was very agitated. Hospitalist Physical - Physical exam Narrative exam: VITAL SIGNS: Reviewed. GENERAL: The patient appears normally developed, reintubated vital signs as documented. HEAD: No signs of head trauma. EYES: Pupils are equal. EARS: Unable to examine MOUTH: Oropharynx is normal. face mask on. NECK: No adenopathy, no JVD. CHEST: Chest with t diminished breath sounds bilaterally. No wheezes, rales, or rhonchi. CARDIAC: Regular rate and rhythm. S1 and S2, without murmurs, gallops, or rubs. VASCULAR: No Edema. Peripheral pulses normal and equal in all extremities. ABDOMEN: Soft, non tender and non distended. No rebound or guarding, and no masses palpated. Bowel Sounds normal. MUSCULOSKELETAL: Bilateral BKA NEUROLOGIC EXAM: Awake, lethargic confused. PSYCHIATRIC: Unable to examine SKIN: detail exam as documented in skin assessment - Constitutional Vitals: Temp Pulse Resp BP Pulse Ox 100.8 F H 97 H 21 144/54 96 04/29/20 08:00 04/29/20 11:41 04/28/20 10:31 04/29/20 11:41 04/29/20 11:41 General appearance: Present: severe distress, other (Intubated on mechanical ventilation) HEART Score - HEART Score Troponin: Troponin T 0.224 ng/mL (0.00-0.029) H* 04/06/20 14:30 Results - Labs CBC & Chem 7: 04/29/20 04:17 04/29/20 04:17 Labs: Laboratory Last Values WBC 45.0 K/mm3 (4.5-11.0) H* 04/29/20 04:17 RBC 3.63 M/mm3 (3.65-5.03) L 04/29/20 04:17 Hgb 10.3 gm/dl (10.1-14.3) 04/29/20 04:17 Hct 32.0 % (30.3-42.9) 04/29/20 04:17 MCV 88 fl (79-97) 04/29/20 04:17 MCH 28 pg (28-32) 04/29/20 04:17 MCHC 32 % (30-34) 04/29/20 04:17 RDW 15.9 % (13.2-15.2) H 04/29/20 04:17 Plt Count 293 K/mm3 (140-440) 04/29/20 04:17 Lymph % (Auto) 10.9 % (13.4-35.0) L 04/28/20 05:52 Fleming % (Auto) 5.9 % (0.0-7.3) 04/28/20 05:52 Eos % (Auto) 1.0 % (0.0-4.3) 04/28/20 05:52 Baso % (Auto) 0.3 % (0.0-1.8) 04/28/20 05:52 Lymph # (Auto) 3.9 K/mm3 (1.2-5.4) 04/28/20 05:52 Fleming # (Auto) 2.1 K/mm3 (0.0-0.8) H 04/28/20 05:52 Eos # (Auto) 0.4 K/mm3 (0.0-0.4) 04/28/20 05:52 Baso # (Auto) 0.1 K/mm3 (0.0-0.1) 04/28/20 05:52 Add Manual Diff Complete 04/29/20 04:17 Total Counted 100 04/29/20 04:17 Seg Neutrophils % 81.9 % (40.0-70.0) H 04/28/20 05:52 Seg Neuts % (Manual) 85.0 % (40.0-70.0) H 04/29/20 04:17 Band Neutrophils % 1.0 % 04/29/20 04:17 Lymphocytes % (Manual) 6.0 % (13.4-35.0) L 04/29/20 04:17 Reactive Lymphs % (Man) 0 % 04/29/20 04:17 Monocytes % (Manual) 4.0 % (0.0-7.3) 04/29/20 04:17 Eosinophils % (Manual) 4.0 % (0.0-4.3) 04/29/20 04:17 Basophils % (Manual) 0 % (0.0-1.8) 04/29/20 04:17 Metamyelocytes % 0 % 04/29/20 04:17 Myelocytes % 0 % 04/29/20 04:17 Promyelocytes % 0 % 04/29/20 04:17 Blast Cells % 0 % 04/29/20 04:17 Nucleated RBC % Not Reportable 04/29/20 04:17 Seg Neutrophils # 29.2 K/mm3 (1.8-7.7) H 04/28/20 05:52 Seg Neutrophils # Man 38.3 K/mm3 (1.8-7.7) H 04/29/20 04:17 Band Neutrophils # 0.5 K/mm3 04/29/20 04:17 Lymphocytes # (Manual) 2.7 K/mm3 (1.2-5.4) 04/29/20 04:17 Abs React Lymphs (Man) 0.0 K/mm3 04/29/20 04:17 Monocytes # (Manual) 1.8 K/mm3 (0.0-0.8) H 04/29/20 04:17 Eosinophils # (Manual) 1.8 K/mm3 (0.0-0.4) H 04/29/20 04:17 Basophils # (Manual) 0.0 K/mm3 (0.0-0.1) 04/29/20 04:17 Metamyelocytes # 0.0 K/mm3 04/29/20 04:17 Myelocytes # 0.0 K/mm3 04/29/20 04:17 Promyelocytes # 0.0 K/mm3 04/29/20 04:17 Blast Cells # 0.0 K/mm3 04/29/20 04:17 WBC Morphology Not Reportable 04/29/20 04:17 Hypersegmented Neuts Not Reportable 04/29/20 04:17 Hyposegmented Neuts Not Reportable 04/29/20 04:17 Hypogranular Neuts Not Reportable 04/29/20 04:17 Smudge Cells Not Reportable 04/29/20 04:17 Toxic Granulation Not Reportable 04/29/20 04:17 Toxic Vacuolation Not Reportable 04/29/20 04:17 Dohle Bodies Not Reportable 04/29/20 04:17 Pelger-Huet Anomaly Not Reportable 04/29/20 04:17 Stephanie Rods Not Reportable 04/29/20 04:17 Platelet Estimate Consistent w auto 04/29/20 04:17 Clumped Platelets Not Reportable 04/29/20 04:17 Plt Clumps, EDTA Not Reportable 04/29/20 04:17 Large Platelets Few 04/29/20 04:17 Giant Platelets Not Reportable 04/29/20 04:17 Platelet Satelliting Not Reportable 04/29/20 04:17 Plt Morphology Comment Not Reportable 04/29/20 04:17 RBC Morphology Not Reportable 04/29/20 04:17 Dimorphic RBCs Not Reportable 04/29/20 04:17 Polychromasia Not Reportable 04/29/20 04:17 Hypochromasia Not Reportable 04/29/20 04:17 Poikilocytosis Not Reportable 04/29/20 04:17 Anisocytosis 1+ 04/29/20 04:17 Microcytosis Not Reportable 04/29/20 04:17 Macrocytosis Not Reportable 04/29/20 04:17 Spherocytes Not Reportable 04/29/20 04:17 Pappenheimer Bodies Not Reportable 04/29/20 04:17 Sickle Cells Not Reportable 04/29/20 04:17 Target Cells Not Reportable 04/29/20 04:17 Tear Drop Cells Not Reportable 04/29/20 04:17 Ovalocytes Not Reportable 04/29/20 04:17 Stomatocytes Few 04/12/20 08:14 Helmet Cells Not Reportable 04/29/20 04:17 [place] Bodies Not Reportable 04/29/20 04:17 [place] Rings Not Reportable 04/29/20 04:17 [place] Cells Not Reportable 04/29/20 04:17 Bite Cells Not Reportable 04/29/20 04:17 Crenated Cell Not Reportable 04/29/20 04:17 Elliptocytes Not Reportable 04/29/20 04:17 Acanthocytes (Spur) Not Reportable 04/29/20 04:17 Rouleaux Not Reportable 04/29/20 04:17 Hemoglobin C Crystals Not Reportable 04/29/20 04:17 Schistocytes Not Reportable 04/29/20 04:17 Malaria parasites Not Reportable 04/29/20 04:17 Lc Bodies Not Reportable 04/29/20 04:17 Hem Pathologist Commnt No 04/29/20 04:17 PT 13.4 Sec. (12.2-14.9) 04/25/20 14:19 INR 1.04 (0.87-1.13) 04/25/20 14:19 APTT 28.1 Sec. (24.2-36.6) 04/06/20 14:30 D-Dimer 1144.77 ng/mlDDU (0-234) H 04/18/20 06:48 ABG pH 7.434 (7.320-7.450) 04/29/20 03:45 POC ABG pCO2 30.8 mmHg (32.0-48.0) L 04/29/20 03:45 ABG pCO2 54.0 mm Hg 04/11/20 03:44 POC ABG pO2 42.2 mmHg (83-108) L 04/29/20 03:45 ABG pO2 73.4 mm Hg (80.0-90.0) L 04/11/20 03:44 POC ABG HCO3 20.2 04/29/20 03:45 ABG HCO3 26.7 mmol/L (20.0-26.0) H 04/11/20 03:44 ABG O2 Saturation 95.0 % (95.0-99.0) 04/11/20 03:44 ABG O2 Content 14.4 (0.0-44) 04/11/20 03:44 POC ABG Base Excess -3.3 04/29/20 03:45 ABG Base Excess -0.1 mmol/L (-2.0-3.0) 04/11/20 03:44 ABG Hemoglobin 10.8 (12.0-17.5) L 04/29/20 03:45 ABG Oxyhemoglobin 80.5 (94-98) L 04/29/20 03:45 ABG Carboxyhemoglobin 1.6 % (0.0-5.0) 04/11/20 03:44 ABG Methemoglobin 0.3 (0.0-1.5) 04/18/20 03:23 ABG Sodium 131.1 mmol/L (136.0-145.0) L 04/29/20 03:45 ABG Potassium 3.8 mmol/L (3.40-4.50) 04/29/20 03:45 ABG Chloride 99.0 mmol/L (98-107) 04/29/20 03:45 ABG Glucose 450 mg/dL (65-95) H 04/29/20 03:45 Oxyhemoglobin 92.8 % (95.0-99.0) L 04/11/20 03:44 Carboxyhemoglobin 0.6 (0.5-1.5) 04/18/20 03:23 FiO2 80.0 04/29/20 03:45 Sodium 132 mmol/L (137-145) L 04/29/20 04:17 Potassium 3.9 mmol/L (3.6-5.0) 04/29/20 04:17 Chloride 93.8 mmol/L (98-107) L 04/29/20 04:17 Carbon Dioxide 19 mmol/L (22-30) L 04/29/20 04:17 Anion Gap 23 mmol/L 04/29/20 04:17 BUN 70 mg/dL (7-17) H 04/29/20 04:17 Creatinine 5.3 mg/dL (0.6-1.2) H 04/29/20 04:17 Estimated GFR 9 ml/min 04/29/20 04:17 BUN/Creatinine Ratio 13 % 04/29/20 04:17 Glucose 396 mg/dL (65-100) H 04/29/20 04:17 POC Glucose 425 mg/dL (70-105) H 04/29/20 12:20 Lactic Acid 1.30 mmol/L (0.7-2.0) 04/27/20 14:40 Calcium 9.6 mg/dL (8.4-10.2) 04/29/20 04:17 Phosphorus 3.00 mg/dL (2.5-4.5) 04/17/20 05:44 Magnesium 2.00 mg/dL (1.7-2.3) 04/17/20 05:44 Ferritin 743.0 ng/mL (10.0-200.0) H 04/07/20 09:34 Total Bilirubin 0.20 mg/dL (0.1-1.2) 04/29/20 04:17 Direct Bilirubin < 0.2 mg/dL (0-0.2) 04/23/20 08:26 Indirect Bilirubin 0.1 mg/dL 04/23/20 08:26 AST 11 units/L (5-40) 04/29/20 04:17 ALT 12 units/L (7-56) 04/29/20 04:17 Alkaline Phosphatase 291 units/L (35-129) H 04/29/20 04:17 Ammonia 30.0 umol/L (25-60) 04/27/20 18:52 Lactate Dehydrogenase 195 units/L (91-180) H 04/07/20 09:34 Total Creatine Kinase 23 units/L (30-135) L 04/06/20 14:30 Total Creatine Kinase 24 units/L (30-135) L 04/06/20 14:30 Troponin T 0.224 ng/mL (0.00-0.029) H* 04/06/20 14:30 C-Reactive Protein 7.50 mg/dL (0.00-1.30) H 04/07/20 09:34 Total Protein 7.7 g/dL (6.3-8.2) 04/29/20 04:17 Albumin 3.2 g/dL (3.9-5) L 04/29/20 04:17 Albumin/Globulin Ratio 0.7 % 04/29/20 04:17 Triglycerides 342 mg/dL (2-149) H 04/06/20 14:30 Cholesterol 223 mg/dL (50-199) H 04/06/20 14:30 LDL Cholesterol Direct 123 mg/dL (50-130) 04/06/20 14:30 HDL Cholesterol 35 mg/dL (40-59) L 04/06/20 14:30 Cholesterol/HDL Ratio 6.37 % 04/06/20 14:30 Procalcitonin 1.55 ng/mL (<0.15) 04/28/20 16:36 TSH 1.320 mlU/mL (0.270-4.200) 04/06/20 14:30 HCG, Qual Negative (Negative) 04/06/20 14:30 Arterial Blood Glucose 450 mg/dL (65-95) H 04/29/20 03:45 Arterial Blood Ionized Calcium 4.7 mg/dL (4.6-5.3) 04/29/20 03:45 Urine Color Yellow (Yellow) 04/06/20 13:34 Urine Turbidity Turbid (Clear) 04/06/20 13:34 Urine pH 7.0 (5.0-7.0) 04/06/20 13:34 Ur Specific [place] 1.017 (1.003-1.030) 04/06/20 13:34 Urine Protein 100 mg/dl mg/dL (Negative) 04/06/20 13:34 Urine Glucose (UA) 50 mg/dL (Negative) 04/06/20 13:34 Urine Ketones Tr mg/dL (Negative) 04/06/20 13:34 Urine Blood Sm (Negative) 04/06/20 13:34 Urine Nitrite Neg (Negative) 04/06/20 13:34 Urine Bilirubin Neg (Negative) 04/06/20 13:34 Urine Urobilinogen < 2.0 mg/dL (<2.0) 04/06/20 13:34 Ur Leukocyte Esterase Mod (Negative) 04/06/20 13:34 Urine WBC (Auto) > 182.0 /HPF (0.0-6.0) H 04/06/20 13:34 Urine RBC (Auto) 49.0 /HPF (0.0-6.0) 04/06/20 13:34 U Epithel Cells (Auto) 6.0 /HPF (0-13.0) 04/06/20 13:34 Urine Bacteria (Auto) 2+ /HPF (Negative) 04/06/20 13:34 Urine WBC Clumps 3+ /HPF 04/06/20 13:34 Urine Mucus 3+ /HPF 04/06/20 13:34 Salicylates < 0.3 mg/dL (2.8-20.0) L 04/06/20 14:30 Acetaminophen 5.0 ug/mL (10.0-30.0) L 04/06/20 14:30 Plasma/Serum Alcohol < 0.01 % (0-0.07) 04/06/20 14:30 Coronavirus (PCR) Negative (Negative) 04/07/20 Unknown Hepatitis A IgM Ab Non-reactive (NonReactive) 04/07/20 16:38 Hep Bs Antigen Non-reactive (Negative) 04/07/20 16:38 Hep B Core IgM Ab Non-reactive (NonReactive) 04/07/20 16:38 Hepatitis C Antibody Reactive (NonReactive) A 04/07/20 16:38 Hepatitis C RNA Quant See scanned result 04/15/20 04:52 Blood Type O POSITIVE 04/06/20 14:30 Antibody Screen Negative 04/06/20 14:30 Microbiology: Microbiology 04/27/20 14:40 Peripheral/Venous Blood Culture - Preliminary NO GROWTH AFTER 24 HOURS 04/27/20 14:40 Peripheral/Venous Blood Culture - Preliminary NO GROWTH AFTER 24 HOURS Bains/IV: Voiding Method Incontinent IV Catheter Type [Left Upper Peripheral IV arm] IV Catheter Type [Right Hand] Peripheral IV IV Catheter Type [Left Forearm INT / Saline Lock ] IV Catheter Type [Right VAS Cath Subclavian] IV Catheter Type [Left INT / Saline Lock Antecubital] IV Catheter Type [Right INT / Saline Lock Forearm] Active Medications - Current Medications Current Medications: Generic Name Dose Route Start Last Admin Trade Name Freq PRN Reason Stop Dose Admin Acetaminophen 650 mg 04/06/20 16:39 Tylenol PO Q6H PRN Pain, Mild (1-3) Albuterol 2.5 mg 04/27/20 09:00 Proventil IH Q4HRT PRN Shortness Of Breath Lipase/Protease/Amylase 1 each 04/26/20 16:[address] 10,500 Unit FEEDTUBE PRN PRN For Clogged Feeding Tube Aripiprazole 5 mg 04/23/20 10:00 04/29/20 10:50 Aripiprazole PO 5 mg DAILY NOEL Administration Calcium Acetate 667 mg 04/22/20 17:00 04/29/20 10:52 Phoslo PO 667 mg TIDWM NOEL Administration Carvedilol 12.5 mg 04/28/20 10:00 04/29/20 10:48 Coreg PO 12.5 mg BID NOEL Administration Clonidine HCl 0.1 mg 04/25/20 08:00 04/25/20 11:10 Catapres-Tts Patch TD Not Given [facility] Dextrose 50 ml 04/09/20 16:30 D50w (25gm) Syringe IV Q30MIN PRN Hypoglycemia Protocol Docusate Sodium 100 mg 04/22/20 12:17 Colace PO Q12H PRN Constipation Fentanyl 50 mcg 04/26/20 13:00 Sublimaze IV Q10MIN PRN ANALGESIA Heparin Sodium (Porcine) 5,000 unit 04/06/20 22:00 04/29/20 10:52 Heparin SUB-Q 5,000 unit Q12HR [facility] Administration Hydromorphone HCl 1 mg 04/18/20 14:22 04/25/20 03:35 Dilaudid IV 1 mg Q4H PRN Administration Pain , Severe (7-10) Hydrophilic Ointment 1 applic 04/06/20 13:34 Vaseline Lip Therapy TP Q2HR PRN Dry Lips Sodium Chloride 100 mls @ 999 mls/hr 04/07/20 17:00 Nacl 0.9% IV SPRING PRN Hypotension Fentanyl Citrate 2,000 mcg in 100 mls @ 5.505 mls/hr 04/26/20 13:00 Fentanyl Drip Premix IV TITR [facility] Protocol 1 MCG/KG/HR Metronidazole 500 mg in 100 mls @ 100 mls/hr 04/28/20 16:30 04/29/20 10:39 Flagyl 500 Mg/100 Ml IV 100 mls/hr Q8HR [facility] Administration Protocol Insulin Glargine 25 units 04/28/20 10:00 04/29/20 10:36 Lantus SUB-Q 25 units Q24HR [facility] Administration Insulin Human Regular 0 unit 04/09/20 18:00 04/29/20 12:45 Humulin R SUB-Q 10 unit Q6H [facility] Administration Protocol Labetalol HCl 10 mg 04/08/20 17:17 04/24/20 22:37 Labetalol IV 10 mg Q4H PRN Administration Blood Pressure Lansoprazole 30 mg 04/26/20 14:00 04/29/20 10:49 Prevacid Solutab FEEDTUBE 30 mg QDAY NOEL Administration Losartan Potassium 25 mg 04/22/20 15:00 04/29/20 10:51 Cozaar PO 25 mg QDAY NOEL Administration Midodrine 10 mg 04/27/20 14:15 04/29/20 10:48 Proamatine PO 10 mg TID NOEL Administration Multi-Ingred Cream/Lotion/Oil/Oint 1 applic 04/06/20 13:34 Artificial Tears Ophth Oint OU Q4HR PRN Dry Eye(s) Multivitamins 5 ml 04/27/20 11:00 04/29/20 10:50 Centrum Liq PO 5 ml QDAY NOEL Administration Ondansetron HCl 4 mg 04/18/20 07:45 04/22/20 15:14 Zofran IV 4 mg Q4H PRN Administration Nausea And Vomiting Simple Syrup 15 ml 04/26/20 16:00 Simple Syrup FEEDTUBE PRN PRN Hypoglycemia Simple Syrup 30 ml 04/26/20 16:00 Simple Syrup FEEDTUBE PRN PRN Hypoglycemia Sodium Bicarbonate 325 mg 04/26/20 16:00 Sodium Bicarbonate FEEDTUBE PRN PRN For Clogged Feeding Tube Sodium Chloride 10 ml 04/06/20 22:00 04/29/20 12:53 Sodium Chloride Flush Syringe 10 Ml IV Not Given BID NOEL Sodium Chloride 10 ml 04/06/20 16:32 04/29/20 12:51 Sodium Chloride Flush Syringe 10 Ml IV 10 ml PRN PRN Administration LINE FLUSH Nutrition/Malnutrition Assess - Dietary Evaluation Nutrition/Malnutrition Findings: Nutrition Notes Start: 04/07/20 08:19 Freq: Status: Active Protocol: Document 04/28/20 10:48 EN (Rec: 04/28/20 11:00 EN [id number]) Co-Sign 04/28/20 10:48 MK Nutrition Notes Initial or Follow up Reassessment Current Diagnosis CKD (stage V CKD),Diabetes, Hypertension,Stroke Other Pertinent Diagnosis on HD, bilateral BKA, AMS Current Diet Nepro 1.8 at 45 ml/hr Labs/Tests Na 134 BUN 62 Cr 5.1 Glu 371 Pertinent Medications Humulin Lantus Height 5 ft 5 in Weight 96.7 kg [place] Body Weight (kg) 56.81 BMI 35.4 Weight change and time frame Wt change noted Weight Status Obese Subjective/Other Information F/u for TF start/tolerance. TF infusing at goal rate and pt tolerating well. Per GI, PEG placement on hold. Pt unable to finish HD today d/t pt unresponsive. Pt had diarrhea this morning. Percent of energy/protein needs met: 100%/76% Burn Absent Trauma Absent GI Symptoms Diarrhea Current % PO Negligible Minimum of two criteria No physical signs of malnutrition #1 Nutrition Diagnosis Inadequate oral intake Diagnosis Progress(for reassessment Continues documentation) Is patient on ventilator? Yes Is Patient Ambulatory and/or Out of Bed No REE-([facility]-confined to bed) 1903.188 Kcal/Kg value to use for calculation 18 Approximate Energy Requirements Using 1741 kcal/Kg Calculation Used for Recommendations Kcal/kg Additional Notes Protein Needs: greater than or equal to 114g (greater than or equal to 2g/kg IBW) Fluid needs: 1000ml + urine output Nutrition Intervention Change Diet Order: Continue Current TF Nutrition Support: Nepro 1.8 at 45 mL/hr (goal rate) Flush 200 mL q4h Kcal 1,944 Protein (gm) 87 Fluid (mL) 785 Goal #1 Meet at least 75% of protein and energy needs via TF Anticipated Discharge Needs: Unable to determine at this time Follow-Up By: 05/02/20 Additional Comments F/u for TF tolerance and diarrhea
--- NOTE | 2020-04-29 13:19 | Progress Note ---
Assessment and Plan Acute on chronic hypoxemic and hypercapnic respiratory failure. Coronavirus-19 infection. Acute encephalopathy. Bibasilar atelectasis. End-stage renal disease, on dialysis. Morbid obesity. History of a cerebrovascular accident. Diabetes type 2. History of chronic obstructive pulmonary disease. History of anemia. - FiO2 increased to 60% and peep increased to 8 - repeat lactate level now WNL - continue Midodrine (10 mg po tid) re: hypotension - leucocytosis bothersome, also with diarrhea; will begin empiric Flagyl - ID re-evaluation re: leucocytosis - procalcitonin level +/- ? BC's - continue care as below otherwise; - s/p AB's per ID rec's (Merrem) - wean supplemental oxygen for target O2 sat's > 90% acutely - VAP bundle addressed - continue lung protective strategies - continue bronchodilators with pulmonary hygiene per RT - wean per pulmonary driven protocols otherwise - continue accuchecks with glycemic control per SSI (While critically ill target blood glucose of 140-180 mg/dL; avoid hypoglycemia) - continue fentanyl for sedation / analgesia - sedation prn for target RASS 0 to -1 - avoid nephrotoxins, renally dose all medications - continue to avoid benzodiazepine's, reduce the possibility of delirium - prn analgesia per CPOT score - Maintenance of sleep-wake cycle, avoid delirium - continue enteral nutritional support at goal rate as tolerated - G.I. & VTE prophylaxis - PT/OT/ROM exercises - continue mobility protocols for pressure ulcer prophylaxis - Monitor hemodynamics closely - continue other care per attending / other consultants - discharge planning ongoing concurrently .... Re-evaluate in am & prn CONDITION: CRITICAL PROGNOSIS: GUARDED CODE STATUS: FULL CODE The high probability of a clinically significant, sudden or life-threatening deterioration of the [respiratory, cardiovascular, renal & neurologic] system(s) required my full and direct attention, intervention and personal management. The aggregate critical care time was [36] minutes without overlap. Time includes spent on; [x] Data Review and interpretation [x] Patient assessment and monitoring of vital signs [x] Documentation [x] Medication orders and management Subjective Date of service: 04/29/20 Principal diagnosis: Ac on ch hypoxemic and hypercapnic resp failure; PUI COVID- 19 infxn; AMS Interval history: Patient is seen today for: Acute on chronic hypoxemic and hypercapnic resp failure; PUI Coronavirus-19 infection; Acute encephalopathy; ESRD; Morbid ob esity; DM II; AE-COPD Seen and examined at bedside; 24hour events reviewed; nursing and respiratory care staff consulted; no adverse overnight events reported to me; resting peacefully in bed; remains on MVS; Objective Vital Signs - 12hr 04/29/20 04/29/20 04/29/20 01:30 01:45 02:00 Temperature Pulse Rate 94 H 94 H 93 H Blood Pressure 131/53 134/41 124/39 O2 Sat by Pulse 95 98 96 Oximetry 04/29/20 04/29/20 04/29/20 02:15 02:30 02:45 Temperature Pulse Rate 93 H 94 H 95 H Blood Pressure 126/49 131/46 126/49 O2 Sat by Pulse 98 97 97 Oximetry 04/29/20 04/29/20 04/29/20 03:00 03:10 03:15 Temperature 99.4 F Pulse Rate 93 H 91 H Blood Pressure 141/51 149/44 O2 Sat by Pulse 98 99 Oximetry 04/29/20 04/29/20 04/29/20 03:30 03:45 04:00 Temperature Pulse Rate 98 H 94 H 104 H Blood Pressure 147/62 137/43 147/45 O2 Sat by Pulse 98 99 87 Oximetry 04/29/20 04/29/20 04/29/20 04:15 04:18 04:31 Temperature Pulse Rate 103 H 104 H 104 H Blood Pressure 147/45 144/42 144/42 O2 Sat by Pulse 80 L 86 92 Oximetry 04/29/20 04/29/20 04/29/20 04:45 05:01 05:15 Temperature Pulse Rate 107 H 108 H 107 H Blood Pressure 144/42 144/42 144/42 O2 Sat by Pulse 96 96 96 Oximetry 04/29/20 04/29/20 04/29/20 05:31 05:45 06:00 Temperature Pulse Rate 105 H 106 H 106 H Blood Pressure 145/51 145/51 147/63 O2 Sat by Pulse 91 84 81 L Oximetry 04/29/20 04/29/20 04/29/20 06:15 06:30 06:45 Temperature Pulse Rate 109 H 111 H 110 H Blood Pressure 171/54 141/69 163/56 O2 Sat by Pulse 88 86 95 Oximetry 04/29/20 04/29/2020 07:01 07:15 07:30 Temperature Pulse Rate 111 H 107 H 101 H Blood Pressure 141/37 141/37 139/44 O2 Sat by Pulse 98 97 97 Oximetry 04/29/20 04/29/20 04/29/20 07:45 08:00 08:01 Temperature 100.8 F H Pulse Rate 93 H 90 91 H Blood Pressure 139/44 103/24 O2 Sat by Pulse 97 98 Oximetry 04/29/20 04/29/20 04/29/20 08:05 08:15 08:30 Temperature Pulse Rate 90 91 H 89 Blood Pressure 96/23 96/23 80/27 O2 Sat by Pulse 96 98 97 Oximetry 04/29/20 04/29/20 04/29/20 08:45 09:01 09:12 Temperature Pulse Rate 93 H 94 H 94 H Blood Pressure 103/38 103/38 123/43 O2 Sat by Pulse 98 98 98 Oximetry 04/29/20 04/29/20 04/29/20 09:15 09:30 09:45 Temperature Pulse Rate 93 H 95 H 98 H Blood Pressure 123/43 121/52 145/52 O2 Sat by Pulse 98 95 92 Oximetry 04/29/20 04/29/20 04/29/20 10:01 10:15 10:30 Temperature Pulse Rate 96 H 96 H 94 H Blood Pressure 107/39 107/39 109/43 O2 Sat by Pulse 89 90 90 Oximetry 04/29/20 04/29/20 04/29/20 10:45 11:00 11:15 Temperature Pulse Rate 93 H 96 H 97 H Blood Pressure 131/35 139/51 130/46 O2 Sat by Pulse 92 94 94 Oximetry 04/29/20 04/29/20 04/29/20 11:30 11:41 11:45 Temperature Pulse Rate 94 H 97 H 95 H Blood Pressure 121/39 144/54 144/54 O2 Sat by Pulse 95 96 97 Oximetry 04/29/20 04/29/20 04/29/20 12:00 12:15 12:30 Temperature Pulse Rate 94 H 96 H 93 H Blood Pressure 112/37 110/41 117/32 O2 Sat by Pulse 95 95 95 Oximetry 04/29/20 04/29/20 12:45 13:00 Temperature Pulse Rate 92 H 91 H Blood Pressure 114/37 114/37 O2 Sat by Pulse 94 91 Oximetry Constitutional: no acute distress, other (middle aged obese female with normal respiratory effort at rest on MVS) Eyes: non-icteric ENT: oropharynx moist, other (ETT 23 cm PARRISH) Neck: supple, no lymphadenopathy, no JVD Effort: normal Ascultation: Bilateral: diminished breath sounds, wheezes, rales, rhonchi (scant) Percussion: Bilateral: not dull Cardiovascular: regular rate and rhythm, other (S1,S2) Gastrointestinal: normoactive bowel sounds, soft, non-tender, non-distended (protuberant) Integumentary: rash Extremities: no cyanosis, no edema, no ischemia or petechiae, other (bilateral BKAs ) Neurologic: non-focal exam (grossly), pupils equal and round, CN II-XII normal, motor strength normal and, unable to assess Psychiatric: mood appropriate, affect normal CBC and BMP: 04/29/20 04:17 04/29/20 04:17 ABG, PT/INR, D-dimer: ABG ABG pH 7.434 (7.320-7.450) 04/29/20 03:45 POC ABG pCO2 30.8 mmHg (32.0-48.0) L 04/29/20 03:45 ABG pCO2 54.0 mm Hg 04/11/20 03:44 POC ABG pO2 42.2 mmHg (83-108) L 04/29/20 03:45 ABG pO2 73.4 mm Hg (80.0-90.0) L 04/11/20 03:44 POC ABG HCO3 20.2 04/29/20 03:45 ABG O2 Saturation 95.0 % (95.0-99.0) 04/11/20 03:44 PT/INR, D-dimer PT 13.4 Sec. (12.2-14.9) 04/25/20 14:19 INR 1.04 (0.87-1.13) 04/25/20 14:19 D-Dimer 1144.77 ng/mlDDU (0-234) H 04/18/20 06:48 Abnormal lab findings: Abnormal Labs 04/06/20 04/06/20 04/06/20 13:34 14:30 14:30 WBC 19.2 H RBC Hgb Hct RDW 17.8 H Plt Count Lymph % (Auto) [place] # (Auto) Seg Neutrophils % Seg Neuts % (Manual) 90.0 H Lymphocytes % (Manual) 4.0 L Monocytes % (Manual) Basophils % (Manual) Seg Neutrophils # Seg Neutrophils # Man 17.3 H Lymphocytes # (Manual) 0.8 L Monocytes # (Manual) Eosinophils # (Manual) Basophils # (Manual) D-Dimer ABG pH POC ABG pCO2 POC ABG pO2 ABG pO2 ABG HCO3 ABG Base Excess ABG Hemoglobin ABG Oxyhemoglobin ABG Sodium ABG Chloride ABG Glucose Oxyhemoglobin Sodium Potassium 5.2 H Chloride Carbon Dioxide 17 L BUN 53 H Creatinine 7.8 H Glucose 144 H POC Glucose Lactic Acid Calcium Magnesium Ferritin Alkaline Phosphatase 738 H Lactate Dehydrogenase Total Creatine Kinase 23 L Troponin T 0.224 H* C-Reactive Protein Albumin 3.1 L Triglycerides 342 H Cholesterol 223 H HDL Cholesterol 35 L Arterial Blood Glucose Arterial Blood Ionized Calcium Urine WBC (Auto) > 182.0 H Salicylates Acetaminophen Hepatitis C Antibody 04/06/20 04/06/20 04/06/20 14:30 14:30 14:30 WBC RBC Hgb Hct RDW Plt Count Lymph % (Auto) [place] # (Auto) Seg Neutrophils % Seg Neuts % (Manual) Lymphocytes % (Manual) Monocytes % (Manual) Basophils % (Manual) Seg Neutrophils # Seg Neutrophils # Man Lymphocytes # (Manual) Monocytes # (Manual) Eosinophils # (Manual) Basophils # (Manual) D-Dimer ABG pH POC ABG pCO2 POC ABG pO2 ABG pO2 ABG HCO3 ABG Base Excess ABG Hemoglobin ABG Oxyhemoglobin ABG Sodium ABG Chloride ABG Glucose Oxyhemoglobin Sodium Potassium Chloride Carbon Dioxide BUN Creatinine Glucose POC Glucose Lactic Acid Calcium Magnesium 2.50 H Ferritin Alkaline Phosphatase Lactate Dehydrogenase Total Creatine Kinase 24 L Troponin T C-Reactive Protein Albumin Triglycerides Cholesterol HDL Cholesterol Arterial Blood Glucose Arterial Blood Ionized Calcium Urine WBC (Auto) Salicylates < 0.3 L Acetaminophen 5.0 L Hepatitis C Antibody 04/06/20 04/06/20 04/07/20 14:39 20:00 00:48 WBC RBC Hgb Hct RDW Plt Count Lymph % (Auto) [place] # (Auto) Seg Neutrophils % Seg Neuts % (Manual) Lymphocytes % (Manual) Monocytes % (Manual) Basophils % (Manual) Seg Neutrophils # Seg Neutrophils # Man Lymphocytes # (Manual) Monocytes # (Manual) Eosinophils # (Manual) Basophils # (Manual) D-Dimer ABG pH 7.281 L 7.306 L POC ABG pCO2 POC ABG pO2 78.0 L ABG pO2 133.8 H ABG HCO3 18.3 L ABG Base Excess -7.8 L ABG Hemoglobin 10.8 L 10.8 L ABG Oxyhemoglobin ABG Sodium ABG Chloride 108.0 H ABG Glucose Oxyhemoglobin Sodium Potassium Chloride Carbon Dioxide BUN Creatinine Glucose POC Glucose 69 L Lactic Acid Calcium Magnesium Ferritin Alkaline Phosphatase Lactate Dehydrogenase Total Creatine Kinase Troponin T C-Reactive Protein Albumin Triglycerides Cholesterol HDL Cholesterol Arterial Blood Glucose Arterial Blood Ionized Calcium Urine WBC (Auto) Salicylates Acetaminophen Hepatitis C Antibody 04/07/20 04/07/20 04/07/20 09:34 09:34 09:34 WBC RBC Hgb Hct RDW Plt Count Lymph % (Auto) [place] # (Auto) Seg Neutrophils % Seg Neuts % (Manual) Lymphocytes % (Manual) Monocytes % (Manual) Basophils % (Manual) Seg Neutrophils # Seg Neutrophils # Man Lymphocytes # (Manual) Monocytes # (Manual) Eosinophils # (Manual) Basophils # (Manual) D-Dimer 1063.66 H ABG pH POC ABG pCO2 POC ABG pO2 ABG pO2 ABG HCO3 ABG Base Excess ABG Hemoglobin ABG Oxyhemoglobin ABG Sodium ABG Chloride ABG Glucose Oxyhemoglobin Sodium Potassium Chloride Carbon Dioxide BUN Creatinine Glucose POC Glucose Lactic Acid Calcium Magnesium Ferritin 743.0 H Alkaline Phosphatase Lactate Dehydrogenase 195 H Total Creatine Kinase Troponin T C-Reactive Protein 7.50 H Albumin Triglycerides Cholesterol HDL Cholesterol Arterial Blood Glucose Arterial Blood Ionized Calcium Urine WBC (Auto) Salicylates Acetaminophen Hepatitis C Antibody 04/07/20 04/07/20 04/07/20 10:01 16:38 23:51 WBC RBC Hgb Hct RDW Plt Count Lymph % (Auto) [place] # (Auto) Seg Neutrophils % Seg Neuts % (Manual) Lymphocytes % (Manual) Monocytes % (Manual) Basophils % (Manual) Seg Neutrophils # Seg Neutrophils # Man Lymphocytes # (Manual) Monocytes # (Manual) Eosinophils # (Manual) Basophils # (Manual) D-Dimer ABG pH POC ABG pCO2 POC ABG pO2 79.8 L ABG pO2 ABG HCO3 ABG Base Excess ABG Hemoglobin 10.3 L ABG Oxyhemoglobin ABG Sodium ABG Chloride 109.0 H ABG Glucose Oxyhemoglobin Sodium Potassium Chloride Carbon Dioxide BUN Creatinine Glucose POC Glucose 117 H Lactic Acid Calcium Magnesium Ferritin Alkaline Phosphatase Lactate Dehydrogenase Total Creatine Kinase Troponin T C-Reactive Protein Albumin Triglycerides Cholesterol HDL Cholesterol Arterial Blood Glucose Arterial Blood Ionized Calcium 4.5 L Urine WBC (Auto) Salicylates Acetaminophen Hepatitis C Antibody Reactive A 04/08/20 04/08/20 04/08/20 04:58 12:48 17:03 WBC RBC Hgb Hct RDW Plt Count Lymph % (Auto) [place] # (Auto) Seg Neutrophils % Seg Neuts % (Manual) Lymphocytes % (Manual) Monocytes % (Manual) Basophils % (Manual) Seg Neutrophils # Seg Neutrophils # Man Lymphocytes # (Manual) Monocytes # (Manual) Eosinophils # (Manual) Basophils # (Manual) D-Dimer ABG pH POC ABG pCO2 POC ABG pO2 ABG pO2 ABG HCO3 ABG Base Excess ABG Hemoglobin ABG Oxyhemoglobin ABG Sodium ABG Chloride ABG Glucose Oxyhemoglobin Sodium Potassium Chloride Carbon Dioxide BUN Creatinine Glucose POC Glucose 129 H 155 H 201 H Lactic Acid Calcium Magnesium Ferritin Alkaline Phosphatase Lactate Dehydrogenase Total Creatine Kinase Troponin T C-Reactive Protein Albumin Triglycerides Cholesterol HDL Cholesterol Arterial Blood Glucose Arterial Blood Ionized Calcium Urine WBC (Auto) Salicylates Acetaminophen Hepatitis C Antibody 04/08/20 04/08/20 04/09/20 23:49 Unknown 05:31 WBC RBC Hgb Hct RDW Plt Count Lymph % (Auto) [place] # (Auto) Seg Neutrophils % Seg Neuts % (Manual) Lymphocytes % (Manual) Monocytes % (Manual) Basophils % (Manual) Seg Neutrophils # Seg Neutrophils # Man Lymphocytes # (Manual) Monocytes # (Manual) Eosinophils # (Manual) Basophils # (Manual) D-Dimer ABG pH 7.349 L POC ABG pCO2 POC ABG pO2 ABG pO2 117.3 H ABG HCO3 ABG Base Excess ABG Hemoglobin 7.4 L ABG Oxyhemoglobin ABG Sodium ABG Chloride ABG Glucose Oxyhemoglobin Sodium Potassium Chloride Carbon Dioxide BUN Creatinine Glucose POC Glucose 178 H 248 H Lactic Acid Calcium Magnesium Ferritin Alkaline Phosphatase Lactate Dehydrogenase Total Creatine Kinase Troponin T C-Reactive Protein Albumin Triglycerides Cholesterol HDL Cholesterol Arterial Blood Glucose Arterial Blood Ionized Calcium Urine WBC (Auto) Salicylates Acetaminophen Hepatitis C Antibody 04/09/20 04/09/20 04/09/20 11:39 17:35 Unknown WBC RBC Hgb Hct RDW Plt Count Lymph % (Auto) [place] # (Auto) Seg Neutrophils % Seg Neuts % (Manual) Lymphocytes % (Manual) Monocytes % (Manual) Basophils % (Manual) Seg Neutrophils # Seg Neutrophils # Man Lymphocytes # (Manual) Monocytes # (Manual) Eosinophils # (Manual) Basophils # (Manual) D-Dimer ABG pH POC ABG pCO2 51.6 H POC ABG pO2 ABG pO2 ABG HCO3 ABG Base Excess ABG Hemoglobin 11.4 L ABG Oxyhemoglobin ABG Sodium 130.1 L ABG Chloride ABG Glucose 249 H Oxyhemoglobin Sodium Potassium Chloride Carbon Dioxide BUN Creatinine Glucose POC Glucose 319 H 254 H Lactic Acid Calcium Magnesium Ferritin Alkaline Phosphatase Lactate Dehydrogenase Total Creatine Kinase Troponin T C-Reactive Protein Albumin Triglycerides Cholesterol HDL Cholesterol Arterial Blood Glucose 249 H Arterial Blood Ionized Calcium 4.1 L Urine WBC (Auto) Salicylates Acetaminophen Hepatitis C Antibody 04/10/20 04/10/20 04/10/20 00:00 03:15 05:49 WBC RBC Hgb Hct RDW Plt Count Lymph % (Auto) [place] # (Auto) Seg Neutrophils % Seg Neuts % (Manual) Lymphocytes % (Manual) Monocytes % (Manual) Basophils % (Manual) Seg Neutrophils # Seg Neutrophils # Man Lymphocytes # (Manual) Monocytes # (Manual) Eosinophils # (Manual) Basophils # (Manual) D-Dimer ABG pH POC ABG pCO2 48.2 H POC ABG pO2 ABG pO2 ABG HCO3 ABG Base Excess ABG Hemoglobin 9.9 L ABG Oxyhemoglobin ABG Sodium 135.4 L ABG Chloride ABG Glucose 215 H Oxyhemoglobin Sodium Potassium Chloride Carbon Dioxide BUN Creatinine Glucose POC Glucose 194 H 221 H Lactic Acid Calcium Magnesium Ferritin Alkaline Phosphatase Lactate Dehydrogenase Total Creatine Kinase Troponin T C-Reactive Protein Albumin Triglycerides Cholesterol HDL Cholesterol Arterial Blood Glucose 215 H Arterial Blood Ionized Calcium 4.5 L Urine WBC (Auto) Salicylates Acetaminophen Hepatitis C Antibody 04/10/20 04/10/20 04/10/20 08:18 08:18 12:22 WBC 28.9 H RBC 3.38 L Hgb 9.5 L Hct 30.1 L RDW 16.9 H Plt Count Lymph % (Auto) [place] # (Auto) Seg Neutrophils % Seg Neuts % (Manual) 87.0 H Lymphocytes % (Manual) 9.0 L Monocytes % (Manual) Basophils % (Manual) 2.0 H Seg Neutrophils # Seg Neutrophils # Man 25.1 H Lymphocytes # (Manual) Monocytes # (Manual) Eosinophils # (Manual) Basophils # (Manual) 0.6 H D-Dimer ABG pH POC ABG pCO2 POC ABG pO2 ABG pO2 ABG HCO3 ABG Base Excess ABG Hemoglobin ABG Oxyhemoglobin ABG Sodium ABG Chloride ABG Glucose Oxyhemoglobin Sodium 134 L Potassium 3.5 L D Chloride 94.9 L Carbon Dioxide BUN 38 H Creatinine 5.5 H Glucose 230 H POC Glucose 218 H Lactic Acid Calcium Magnesium Ferritin Alkaline Phosphatase Lactate Dehydrogenase Total Creatine Kinase Troponin T C-Reactive Protein Albumin Triglycerides Cholesterol HDL Cholesterol Arterial Blood Glucose Arterial Blood Ionized Calcium Urine WBC (Auto) Salicylates Acetaminophen Hepatitis C Antibody 04/10/20 04/10/20 04/10/20 17:27 18:08 23:29 WBC RBC Hgb Hct RDW Plt Count Lymph % (Auto) [place] # (Auto) Seg Neutrophils % Seg Neuts % (Manual) Lymphocytes % (Manual) Monocytes % (Manual) Basophils % (Manual) Seg Neutrophils # Seg Neutrophils # Man Lymphocytes # (Manual) Monocytes # (Manual) Eosinophils # (Manual) Basophils # (Manual) D-Dimer ABG pH POC ABG pCO2 POC ABG pO2 ABG pO2 ABG HCO3 ABG Base Excess ABG Hemoglobin ABG Oxyhemoglobin ABG Sodium ABG Chloride ABG Glucose Oxyhemoglobin Sodium Potassium Chloride Carbon Dioxide BUN Creatinine Glucose POC Glucose 218 H 223 H 166 H Lactic Acid Calcium Magnesium Ferritin Alkaline Phosphatase Lactate Dehydrogenase Total Creatine Kinase Troponin T C-Reactive Protein Albumin Triglycerides Cholesterol HDL Cholesterol Arterial Blood Glucose Arterial Blood Ionized Calcium Urine WBC (Auto) Salicylates Acetaminophen Hepatitis C Antibody 04/11/20 04/11/20 04/11/20 03:44 05:28 07:39 WBC 26.9 H RBC 3.32 L Hgb 9.4 L Hct 29.5 L RDW 17.2 H Plt Count Lymph % (Auto) [place] # (Auto) Seg Neutrophils % Seg Neuts % (Manual) 83.0 H Lymphocytes % (Manual) 10.0 L Monocytes % (Manual) Basophils % (Manual) Seg Neutrophils # Seg Neutrophils # Man 22.3 H Lymphocytes # (Manual) Monocytes # (Manual) 1.1 H Eosinophils # (Manual) 0.5 H Basophils # (Manual) D-Dimer ABG pH 7.313 L POC ABG pCO2 POC ABG pO2 ABG pO2 73.4 L ABG HCO3 26.7 H ABG Base Excess ABG Hemoglobin 11.0 L ABG Oxyhemoglobin ABG Sodium ABG Chloride ABG Glucose Oxyhemoglobin 92.8 L Sodium Potassium Chloride Carbon Dioxide BUN Creatinine Glucose POC Glucose 164 H Lactic Acid Calcium Magnesium Ferritin Alkaline Phosphatase Lactate Dehydrogenase Total Creatine Kinase Troponin T C-Reactive Protein Albumin Triglycerides Cholesterol HDL Cholesterol Arterial Blood Glucose Arterial Blood Ionized Calcium Urine WBC (Auto) Salicylates Acetaminophen Hepatitis C Antibody 04/11/20 04/11/20 04/11/20 07:39 12:25 19:02 WBC RBC Hgb Hct RDW Plt Count Lymph % (Auto) [place] # (Auto) Seg Neutrophils % Seg Neuts % (Manual) Lymphocytes % (Manual) Monocytes % (Manual) Basophils % (Manual) Seg Neutrophils # Seg Neutrophils # Man Lymphocytes # (Manual) Monocytes # (Manual) Eosinophils # (Manual) Basophils # (Manual) D-Dimer ABG pH POC ABG pCO2 POC ABG pO2 ABG pO2 ABG HCO3 ABG Base Excess ABG Hemoglobin ABG Oxyhemoglobin ABG Sodium ABG Chloride ABG Glucose Oxyhemoglobin Sodium Potassium Chloride Carbon Dioxide BUN 48 H Creatinine 6.1 H Glucose 122 H POC Glucose 175 H 175 H Lactic Acid Calcium 8.3 L Magnesium Ferritin Alkaline Phosphatase Lactate Dehydrogenase Total Creatine Kinase Troponin T C-Reactive Protein Albumin Triglycerides Cholesterol HDL Cholesterol Arterial Blood Glucose Arterial Blood Ionized Calcium Urine WBC (Auto) Salicylates Acetaminophen Hepatitis C Antibody 04/12/20 04/12/20 04/12/20 00:02 05:51 08:14 WBC 28.0 H RBC 3.29 L Hgb 9.5 L Hct 29.1 L RDW 16.9 H Plt Count Lymph % (Auto) [place] # (Auto) Seg Neutrophils % Seg Neuts % (Manual) 88.0 H Lymphocytes % (Manual) 7.0 L Monocytes % (Manual) Basophils % (Manual) Seg Neutrophils # Seg Neutrophils # Man 24.6 H Lymphocytes # (Manual) Monocytes # (Manual) Eosinophils # (Manual) 0.6 H Basophils # (Manual) D-Dimer ABG pH POC ABG pCO2 POC ABG pO2 ABG pO2 ABG HCO3 ABG Base Excess ABG Hemoglobin ABG Oxyhemoglobin ABG Sodium ABG Chloride ABG Glucose Oxyhemoglobin Sodium Potassium Chloride Carbon Dioxide BUN Creatinine Glucose POC Glucose 146 H 151 H Lactic Acid Calcium Magnesium Ferritin Alkaline Phosphatase Lactate Dehydrogenase Total Creatine Kinase Troponin T C-Reactive Protein Albumin Triglycerides Cholesterol HDL Cholesterol Arterial Blood Glucose Arterial Blood Ionized Calcium Urine WBC (Auto) Salicylates Acetaminophen Hepatitis C Antibody 04/12/20 04/12/20 04/12/20 08:14 12:21 17:26 WBC RBC Hgb Hct RDW Plt Count Lymph % (Auto) [place] # (Auto) Seg Neutrophils % Seg Neuts % (Manual) Lymphocytes % (Manual) Monocytes % (Manual) Basophils % (Manual) Seg Neutrophils # Seg Neutrophils # Man Lymphocytes # (Manual) Monocytes # (Manual) Eosinophils # (Manual) Basophils # (Manual) D-Dimer ABG pH POC ABG pCO2 POC ABG pO2 ABG pO2 ABG HCO3 ABG Base Excess ABG Hemoglobin ABG Oxyhemoglobin ABG Sodium ABG Chloride ABG Glucose Oxyhemoglobin Sodium Potassium 3.3 L Chloride Carbon Dioxide BUN 32 H Creatinine 4.3 H Glucose 188 H POC Glucose 196 H 235 H Lactic Acid Calcium Magnesium Ferritin Alkaline Phosphatase Lactate Dehydrogenase Total Creatine Kinase Troponin T C-Reactive Protein Albumin Triglycerides Cholesterol HDL Cholesterol Arterial Blood Glucose Arterial Blood Ionized Calcium Urine WBC (Auto) Salicylates Acetaminophen Hepatitis C Antibody 04/12/20 04/13/20 04/13/20 23:34 03:40 05:33 WBC RBC Hgb Hct RDW Plt Count Lymph % (Auto) [place] # (Auto) Seg Neutrophils % Seg Neuts % (Manual) Lymphocytes % (Manual) Monocytes % (Manual) Basophils % (Manual) Seg Neutrophils # Seg Neutrophils # Man Lymphocytes # (Manual) Monocytes # (Manual) Eosinophils # (Manual) Basophils # (Manual) D-Dimer ABG pH POC ABG pCO2 POC ABG pO2 ABG pO2 ABG HCO3 ABG Base Excess ABG Hemoglobin 9.4 L ABG Oxyhemoglobin ABG Sodium 133.6 L ABG Chloride ABG Glucose 172 H Oxyhemoglobin Sodium Potassium Chloride Carbon Dioxide BUN Creatinine Glucose POC Glucose 171 H 167 H Lactic Acid Calcium Magnesium Ferritin Alkaline Phosphatase Lactate Dehydrogenase Total Creatine Kinase Troponin T C-Reactive Protein Albumin Triglycerides Cholesterol HDL Cholesterol Arterial Blood Glucose 172 H Arterial Blood Ionized Calcium Urine WBC (Auto) Salicylates Acetaminophen Hepatitis C Antibody 04/13/20 04/13/20 04/13/20 07:49 09:09 11:34 WBC RBC Hgb Hct RDW Plt Count Lymph % (Auto) [place] # (Auto) Seg Neutrophils % Seg Neuts % (Manual) Lymphocytes % (Manual) Monocytes % (Manual) Basophils % (Manual) Seg Neutrophils # Seg Neutrophils # Man Lymphocytes # (Manual) Monocytes # (Manual) Eosinophils # (Manual) Basophils # (Manual) D-Dimer ABG pH POC ABG pCO2 POC ABG pO2 ABG pO2 ABG HCO3 ABG Base Excess ABG Hemoglobin ABG Oxyhemoglobin ABG Sodium ABG Chloride ABG Glucose Oxyhemoglobin Sodium Potassium Chloride Carbon Dioxide 31 H BUN 44 H 43 H Creatinine 5.0 H 4.9 H Glucose 164 H 164 H POC Glucose 155 H Lactic Acid Calcium Magnesium Ferritin Alkaline Phosphatase Lactate Dehydrogenase Total Creatine Kinase Troponin T C-Reactive Protein Albumin Triglycerides Cholesterol HDL Cholesterol Arterial Blood Glucose Arterial Blood Ionized Calcium Urine WBC (Auto) Salicylates Acetaminophen Hepatitis C Antibody 04/13/20 04/13/20 04/14/20 17:38 23:40 04:35 WBC RBC Hgb Hct RDW Plt Count Lymph % (Auto) [place] # (Auto) Seg Neutrophils % Seg Neuts % (Manual) Lymphocytes % (Manual) Monocytes % (Manual) Basophils % (Manual) Seg Neutrophils # Seg Neutrophils # Man Lymphocytes # (Manual) Monocytes # (Manual) Eosinophils # (Manual) Basophils # (Manual) D-Dimer ABG pH POC ABG pCO2 POC ABG pO2 ABG pO2 ABG HCO3 ABG Base Excess ABG Hemoglobin ABG Oxyhemoglobin ABG Sodium ABG Chloride ABG Glucose Oxyhemoglobin Sodium Potassium Chloride Carbon Dioxide BUN Creatinine Glucose POC Glucose 180 H 130 H 121 H Lactic Acid Calcium Magnesium Ferritin Alkaline Phosphatase Lactate Dehydrogenase Total Creatine Kinase Troponin T C-Reactive Protein Albumin Triglycerides Cholesterol HDL Cholesterol Arterial Blood Glucose Arterial Blood Ionized Calcium Urine WBC (Auto) Salicylates Acetaminophen Hepatitis C Antibody 04/14/20 04/14/20 04/15/20 12:17 17:06 00:11 WBC RBC Hgb Hct RDW Plt Count Lymph % (Auto) [place] # (Auto) Seg Neutrophils % Seg Neuts % (Manual) Lymphocytes % (Manual) Monocytes % (Manual) Basophils % (Manual) Seg Neutrophils # Seg Neutrophils # Man Lymphocytes # (Manual) Monocytes # (Manual) Eosinophils # (Manual) Basophils # (Manual) D-Dimer ABG pH POC ABG pCO2 POC ABG pO2 ABG pO2 ABG HCO3 ABG Base Excess ABG Hemoglobin ABG Oxyhemoglobin ABG Sodium ABG Chloride ABG Glucose Oxyhemoglobin Sodium Potassium Chloride Carbon Dioxide BUN Creatinine Glucose POC Glucose 170 H 177 H 156 H Lactic Acid Calcium Magnesium Ferritin Alkaline Phosphatase Lactate Dehydrogenase Total Creatine Kinase Troponin T C-Reactive Protein Albumin Triglycerides Cholesterol HDL Cholesterol Arterial Blood Glucose Arterial Blood Ionized Calcium Urine WBC (Auto) Salicylates Acetaminophen Hepatitis C Antibody 04/15/20 04/15/20 04/15/20 05:09 11:45 17:12 WBC RBC Hgb Hct RDW Plt Count Lymph % (Auto) [place] # (Auto) Seg Neutrophils % Seg Neuts % (Manual) Lymphocytes % (Manual) Monocytes % (Manual) Basophils % (Manual) Seg Neutrophils # Seg Neutrophils # Man Lymphocytes # (Manual) Monocytes # (Manual) Eosinophils # (Manual) Basophils # (Manual) D-Dimer ABG pH POC ABG pCO2 POC ABG pO2 ABG pO2 ABG HCO3 ABG Base Excess ABG Hemoglobin ABG Oxyhemoglobin ABG Sodium ABG Chloride ABG Glucose Oxyhemoglobin Sodium Potassium Chloride Carbon Dioxide BUN Creatinine Glucose POC Glucose 141 H 154 H 177 H Lactic Acid Calcium Magnesium Ferritin Alkaline Phosphatase Lactate Dehydrogenase Total Creatine Kinase Troponin T C-Reactive Protein Albumin Triglycerides Cholesterol HDL Cholesterol Arterial Blood Glucose Arterial Blood Ionized Calcium Urine WBC (Auto) Salicylates Acetaminophen Hepatitis C Antibody 04/16/20 04/16/20 04/16/20 05:11 12:13 17:31 WBC RBC Hgb Hct RDW Plt Count Lymph % (Auto) [place] # (Auto) Seg Neutrophils % Seg Neuts % (Manual) Lymphocytes % (Manual) Monocytes % (Manual) Basophils % (Manual) Seg Neutrophils # Seg Neutrophils # Man Lymphocytes # (Manual) Monocytes # (Manual) Eosinophils # (Manual) Basophils # (Manual) D-Dimer ABG pH POC ABG pCO2 POC ABG pO2 ABG pO2 ABG HCO3 ABG Base Excess ABG Hemoglobin ABG Oxyhemoglobin ABG Sodium ABG Chloride ABG Glucose Oxyhemoglobin Sodium Potassium Chloride Carbon Dioxide BUN Creatinine Glucose POC Glucose 115 H 122 H 188 H Lactic Acid Calcium Magnesium Ferritin Alkaline Phosphatase Lactate Dehydrogenase Total Creatine Kinase Troponin T C-Reactive Protein Albumin Triglycerides Cholesterol HDL Cholesterol Arterial Blood Glucose Arterial Blood Ionized Calcium Urine WBC (Auto) Salicylates Acetaminophen Hepatitis C Antibody 04/16/20 04/17/20 04/17/20 23:47 05:44 05:44 WBC 19.5 H RBC 3.26 L Hgb 9.3 L Hct 28.7 L RDW 15.9 H Plt Count 604 H Lymph % (Auto) [place] # (Auto) Seg Neutrophils % Seg Neuts % (Manual) 81.0 H Lymphocytes % (Manual) 11.0 L Monocytes % (Manual) Basophils % (Manual) Seg Neutrophils # Seg Neutrophils # Man 15.8 H Lymphocytes # (Manual) Monocytes # (Manual) Eosinophils # (Manual) 0.6 H Basophils # (Manual) 0.2 H D-Dimer ABG pH POC ABG pCO2 POC ABG pO2 ABG pO2 ABG HCO3 ABG Base Excess ABG Hemoglobin ABG Oxyhemoglobin ABG Sodium ABG Chloride ABG Glucose Oxyhemoglobin Sodium Potassium Chloride Carbon Dioxide BUN 28 H Creatinine 3.3 H Glucose 130 H POC Glucose 156 H Lactic Acid Calcium Magnesium Ferritin Alkaline Phosphatase Lactate Dehydrogenase Total Creatine Kinase Troponin T C-Reactive Protein Albumin Triglycerides Cholesterol HDL Cholesterol Arterial Blood Glucose Arterial Blood Ionized Calcium Urine WBC (Auto) Salicylates Acetaminophen Hepatitis C Antibody 04/17/20 04/17/20 04/17/20 12:57 17:18 22:04 WBC RBC Hgb Hct RDW Plt Count Lymph % (Auto) [place] # (Auto) Seg Neutrophils % Seg Neuts % (Manual) Lymphocytes % (Manual) Monocytes % (Manual) Basophils % (Manual) Seg Neutrophils # Seg Neutrophils # Man Lymphocytes # (Manual) Monocytes # (Manual) Eosinophils # (Manual) Basophils # (Manual) D-Dimer ABG pH 7.553 H POC ABG pCO2 POC ABG pO2 206.5 H ABG pO2 ABG HCO3 ABG Base Excess ABG Hemoglobin 11.2 L ABG Oxyhemoglobin 99.1 H ABG Sodium 133.0 L ABG Chloride ABG Glucose 183 H Oxyhemoglobin Sodium Potassium Chloride Carbon Dioxide BUN Creatinine Glucose POC Glucose 146 H 156 H Lactic Acid Calcium Magnesium Ferritin Alkaline Phosphatase Lactate Dehydrogenase Total Creatine Kinase Troponin T C-Reactive Protein Albumin Triglycerides Cholesterol HDL Cholesterol Arterial Blood Glucose 183 H Arterial Blood Ionized Calcium 4.4 L Urine WBC (Auto) Salicylates Acetaminophen Hepatitis C Antibody 04/17/20 04/18/20 04/18/20 23:29 03:23 04:43 WBC RBC Hgb Hct RDW Plt Count Lymph % (Auto) [place] # (Auto) Seg Neutrophils % Seg Neuts % (Manual) Lymphocytes % (Manual) Monocytes % (Manual) Basophils % (Manual) Seg Neutrophils # Seg Neutrophils # Man Lymphocytes # (Manual) Monocytes # (Manual) Eosinophils # (Manual) Basophils # (Manual) D-Dimer ABG pH 7.486 H POC ABG pCO2 POC ABG pO2 56.4 L ABG pO2 ABG HCO3 ABG Base Excess ABG Hemoglobin 11.2 L ABG Oxyhemoglobin 92.0 L ABG Sodium 135.1 L ABG Chloride ABG Glucose 138 H Oxyhemoglobin Sodium Potassium Chloride Carbon Dioxide BUN Creatinine Glucose POC Glucose 125 H 119 H Lactic Acid Calcium Magnesium Ferritin Alkaline Phosphatase Lactate Dehydrogenase Total Creatine Kinase Troponin T C-Reactive Protein Albumin Triglycerides Cholesterol HDL Cholesterol Arterial Blood Glucose 138 H Arterial Blood Ionized Calcium 4.5 L Urine WBC (Auto) Salicylates Acetaminophen Hepatitis C Antibody 04/18/20 04/18/20 04/18/20 06:48 06:48 06:48 WBC 38.7 H RBC Hgb Hct RDW 16.3 H Plt Count 597 H Lymph % (Auto) [place] # (Auto) Seg Neutrophils % Seg Neuts % (Manual) Lymphocytes % (Manual) Monocytes % (Manual) Basophils % (Manual) Seg Neutrophils # Seg Neutrophils # Man Lymphocytes # (Manual) Monocytes # (Manual) Eosinophils # (Manual) Basophils # (Manual) D-Dimer 1144.77 H ABG pH POC ABG pCO2 POC ABG pO2 ABG pO2 ABG HCO3 ABG Base Excess ABG Hemoglobin ABG Oxyhemoglobin ABG Sodium ABG Chloride ABG Glucose Oxyhemoglobin Sodium 134 L Potassium Chloride 96.4 L Carbon Dioxide BUN 19 H Creatinine 2.6 H Glucose 104 H POC Glucose Lactic Acid Calcium Magnesium Ferritin Alkaline Phosphatase 413 H Lactate Dehydrogenase Total Creatine Kinase Troponin T C-Reactive Protein Albumin 2.8 L Triglycerides Cholesterol HDL Cholesterol Arterial Blood Glucose Arterial Blood Ionized Calcium Urine WBC (Auto) Salicylates Acetaminophen Hepatitis C Antibody 04/18/20 04/18/20 04/19/20 11:33 17:18 06:24 WBC 28.9 H RBC 3.33 L Hgb 9.5 L Hct 29.5 L RDW 16.0 H Plt Count 577 H Lymph % (Auto) [place] # (Auto) Seg Neutrophils % Seg Neuts % (Manual) Lymphocytes % (Manual) Monocytes % (Manual) Basophils % (Manual) Seg Neutrophils # Seg Neutrophils # Man Lymphocytes # (Manual) Monocytes # (Manual) Eosinophils # (Manual) Basophils # (Manual) D-Dimer ABG pH POC ABG pCO2 POC ABG pO2 ABG pO2 ABG HCO3 ABG Base Excess ABG Hemoglobin ABG Oxyhemoglobin ABG Sodium ABG Chloride ABG Glucose Oxyhemoglobin Sodium Potassium Chloride Carbon Dioxide BUN Creatinine Glucose POC Glucose 195 H 162 H Lactic Acid Calcium Magnesium Ferritin Alkaline Phosphatase Lactate Dehydrogenase Total Creatine Kinase Troponin T C-Reactive Protein Albumin Triglycerides Cholesterol HDL Cholesterol Arterial Blood Glucose Arterial Blood Ionized Calcium Urine WBC (Auto) Salicylates Acetaminophen Hepatitis C Antibody 04/19/20 04/19/20 04/20/20 06:24 17:28 07:50 WBC 22.7 H RBC 3.43 L Hgb 9.6 L Hct RDW 15.9 H Plt Count 530 H Lymph % (Auto) [place] # (Auto) Seg Neutrophils % Seg Neuts % (Manual) Lymphocytes % (Manual) Monocytes % (Manual) Basophils % (Manual) Seg Neutrophils # Seg Neutrophils # Man Lymphocytes # (Manual) Monocytes # (Manual) Eosinophils # (Manual) Basophils # (Manual) D-Dimer ABG pH POC ABG pCO2 POC ABG pO2 ABG pO2 ABG HCO3 ABG Base Excess ABG Hemoglobin ABG Oxyhemoglobin ABG Sodium ABG Chloride ABG Glucose Oxyhemoglobin Sodium Potassium Chloride Carbon Dioxide 31 H D BUN 27 H Creatinine 3.8 H Glucose POC Glucose 114 H Lactic Acid Calcium Magnesium Ferritin Alkaline Phosphatase 343 H Lactate Dehydrogenase Total Creatine Kinase Troponin T C-Reactive Protein Albumin 2.8 L Triglycerides Cholesterol HDL Cholesterol Arterial Blood Glucose Arterial Blood Ionized Calcium Urine WBC (Auto) Salicylates Acetaminophen Hepatitis C Antibody 04/20/20 04/21/20 04/21/20 07:50 00:42 04:32 WBC 16.4 H RBC 3.37 L Hgb 9.7 L Hct 30.0 L RDW 15.6 H Plt Count 597 H Lymph % (Auto) [place] # (Auto) Seg Neutrophils % Seg Neuts % (Manual) Lymphocytes % (Manual) Monocytes % (Manual) Basophils % (Manual) Seg Neutrophils # Seg Neutrophils # Man Lymphocytes # (Manual) Monocytes # (Manual) Eosinophils # (Manual) Basophils # (Manual) D-Dimer ABG pH POC ABG pCO2 POC ABG pO2 ABG pO2 ABG HCO3 ABG Base Excess ABG Hemoglobin ABG Oxyhemoglobin ABG Sodium ABG Chloride ABG Glucose Oxyhemoglobin Sodium Potassium Chloride Carbon Dioxide 31 H BUN Creatinine 2.8 H Glucose POC Glucose 119 H Lactic Acid Calcium Magnesium Ferritin Alkaline Phosphatase Lactate Dehydrogenase Total Creatine Kinase Troponin T C-Reactive Protein Albumin Triglycerides Cholesterol HDL Cholesterol Arterial Blood Glucose Arterial Blood Ionized Calcium Urine WBC (Auto) Salicylates Acetaminophen Hepatitis C Antibody 04/21/20 04/21/20 04/21/20 04:32 16:30 17:43 WBC RBC Hgb Hct RDW Plt Count Lymph % (Auto) [place] # (Auto) Seg Neutrophils % Seg Neuts % (Manual) Lymphocytes % (Manual) Monocytes % (Manual) Basophils % (Manual) Seg Neutrophils # Seg Neutrophils # Man Lymphocytes # (Manual) Monocytes # (Manual) Eosinophils # (Manual) Basophils # (Manual) D-Dimer ABG pH POC ABG pCO2 POC ABG pO2 ABG pO2 ABG HCO3 ABG Base Excess ABG Hemoglobin ABG Oxyhemoglobin ABG Sodium ABG Chloride ABG Glucose Oxyhemoglobin Sodium Potassium Chloride Carbon Dioxide BUN 25 H Creatinine 3.9 H Glucose 106 H POC Glucose 149 H 171 H Lactic Acid Calcium Magnesium Ferritin Alkaline Phosphatase 324 H Lactate Dehydrogenase Total Creatine Kinase Troponin T C-Reactive Protein Albumin 3.0 L Triglycerides Cholesterol HDL Cholesterol Arterial Blood Glucose Arterial Blood Ionized Calcium Urine WBC (Auto) Salicylates Acetaminophen Hepatitis C Antibody 04/22/20 04/22/20 04/22/20 00:59 03:50 03:50 WBC 15.5 H RBC Hgb Hct RDW Plt Count 629 H Lymph % (Auto) [place] # (Auto) Seg Neutrophils % Seg Neuts % (Manual) Lymphocytes % (Manual) Monocytes % (Manual) Basophils % (Manual) Seg Neutrophils # Seg Neutrophils # Man Lymphocytes # (Manual) Monocytes # (Manual) Eosinophils # (Manual) Basophils # (Manual) D-Dimer ABG pH POC ABG pCO2 POC ABG pO2 ABG pO2 ABG HCO3 ABG Base Excess ABG Hemoglobin ABG Oxyhemoglobin ABG Sodium ABG Chloride ABG Glucose Oxyhemoglobin Sodium Potassium Chloride Carbon Dioxide BUN Creatinine 2.6 H Glucose 131 H POC Glucose 128 H Lactic Acid Calcium Magnesium Ferritin Alkaline Phosphatase Lactate Dehydrogenase Total Creatine Kinase Troponin T C-Reactive Protein Albumin Triglycerides Cholesterol HDL Cholesterol Arterial Blood Glucose Arterial Blood Ionized Calcium Urine WBC (Auto) Salicylates Acetaminophen Hepatitis C Antibody 04/22/20 04/22/20 04/22/20 05:38 07:50 11:44 WBC RBC Hgb Hct RDW Plt Count Lymph % (Auto) [place] # (Auto) Seg Neutrophils % Seg Neuts % (Manual) Lymphocytes % (Manual) Monocytes % (Manual) Basophils % (Manual) Seg Neutrophils # Seg Neutrophils # Man Lymphocytes # (Manual) Monocytes # (Manual) Eosinophils # (Manual) Basophils # (Manual) D-Dimer ABG pH POC ABG pCO2 POC ABG pO2 ABG pO2 ABG HCO3 ABG Base Excess ABG Hemoglobin ABG Oxyhemoglobin ABG Sodium ABG Chloride ABG Glucose Oxyhemoglobin Sodium Potassium Chloride Carbon Dioxide BUN Creatinine Glucose POC Glucose 115 H 147 H 175 H Lactic Acid Calcium Magnesium Ferritin Alkaline Phosphatase Lactate Dehydrogenase Total Creatine Kinase Troponin T C-Reactive Protein Albumin Triglycerides Cholesterol HDL Cholesterol Arterial Blood Glucose Arterial Blood Ionized Calcium Urine WBC (Auto) Salicylates Acetaminophen Hepatitis C Antibody 04/22/20 04/23/20 04/23/20 16:41 00:12 08:26 WBC RBC Hgb Hct RDW Plt Count Lymph % (Auto) [place] # (Auto) Seg Neutrophils % Seg Neuts % (Manual) Lymphocytes % (Manual) Monocytes % (Manual) Basophils % (Manual) Seg Neutrophils # Seg Neutrophils # Man Lymphocytes # (Manual) Monocytes # (Manual) Eosinophils # (Manual) Basophils # (Manual) D-Dimer ABG pH POC ABG pCO2 POC ABG pO2 ABG pO2 ABG HCO3 ABG Base Excess ABG Hemoglobin ABG Oxyhemoglobin ABG Sodium ABG Chloride ABG Glucose Oxyhemoglobin Sodium Potassium Chloride Carbon Dioxide BUN Creatinine Glucose POC Glucose 180 H 175 H Lactic Acid Calcium Magnesium Ferritin Alkaline Phosphatase 308 H Lactate Dehydrogenase Total Creatine Kinase Troponin T C-Reactive Protein Albumin 3.2 L Triglycerides Cholesterol HDL Cholesterol Arterial Blood Glucose Arterial Blood Ionized Calcium Urine WBC (Auto) Salicylates Acetaminophen Hepatitis C Antibody 04/23/20 04/23/20 04/23/20 08:44 12:36 16:43 WBC RBC Hgb Hct RDW Plt Count Lymph % (Auto) [place] # (Auto) Seg Neutrophils % Seg Neuts % (Manual) Lymphocytes % (Manual) Monocytes % (Manual) Basophils % (Manual) Seg Neutrophils # Seg Neutrophils # Man Lymphocytes # (Manual) Monocytes # (Manual) Eosinophils # (Manual) Basophils # (Manual) D-Dimer ABG pH POC ABG pCO2 POC ABG pO2 ABG pO2 ABG HCO3 ABG Base Excess ABG Hemoglobin ABG Oxyhemoglobin ABG Sodium ABG Chloride ABG Glucose Oxyhemoglobin Sodium Potassium Chloride Carbon Dioxide BUN Creatinine Glucose POC Glucose 171 H 165 H 196 H Lactic Acid Calcium Magnesium Ferritin Alkaline Phosphatase Lactate Dehydrogenase Total Creatine Kinase Troponin T C-Reactive Protein Albumin Triglycerides Cholesterol HDL Cholesterol Arterial Blood Glucose Arterial Blood Ionized Calcium Urine WBC (Auto) Salicylates Acetaminophen Hepatitis C Antibody 04/24/20 04/24/20 04/24/20 00:08 09:09 16:42 WBC RBC Hgb Hct RDW Plt Count Lymph % (Auto) [place] # (Auto) Seg Neutrophils % Seg Neuts % (Manual) Lymphocytes % (Manual) Monocytes % (Manual) Basophils % (Manual) Seg Neutrophils # Seg Neutrophils # Man Lymphocytes # (Manual) Monocytes # (Manual) Eosinophils # (Manual) Basophils # (Manual) D-Dimer ABG pH POC ABG pCO2 POC ABG pO2 ABG pO2 ABG HCO3 ABG Base Excess ABG Hemoglobin ABG Oxyhemoglobin ABG Sodium ABG Chloride ABG Glucose Oxyhemoglobin Sodium Potassium Chloride Carbon Dioxide BUN Creatinine Glucose POC Glucose 150 H 165 H 166 H Lactic Acid Calcium Magnesium Ferritin Alkaline Phosphatase Lactate Dehydrogenase Total Creatine Kinase Troponin T C-Reactive Protein Albumin Triglycerides Cholesterol HDL Cholesterol Arterial Blood Glucose Arterial Blood Ionized Calcium Urine WBC (Auto) Salicylates Acetaminophen Hepatitis C Antibody 04/24/20 04/25/20 04/25/20 22:44 05:23 11:48 WBC RBC Hgb Hct RDW Plt Count Lymph % (Auto) [place] # (Auto) Seg Neutrophils % Seg Neuts % (Manual) Lymphocytes % (Manual) Monocytes % (Manual) Basophils % (Manual) Seg Neutrophils # Seg Neutrophils # Man Lymphocytes # (Manual) Monocytes # (Manual) Eosinophils # (Manual) Basophils # (Manual) D-Dimer ABG pH POC ABG pCO2 POC ABG pO2 ABG pO2 ABG HCO3 ABG Base Excess ABG Hemoglobin ABG Oxyhemoglobin ABG Sodium ABG Chloride ABG Glucose Oxyhemoglobin Sodium Potassium Chloride Carbon Dioxide BUN Creatinine Glucose POC Glucose 226 H 293 H 256 H Lactic Acid Calcium Magnesium Ferritin Alkaline Phosphatase Lactate Dehydrogenase Total Creatine Kinase Troponin T C-Reactive Protein Albumin Triglycerides Cholesterol HDL Cholesterol Arterial Blood Glucose Arterial Blood Ionized Calcium Urine WBC (Auto) Salicylates Acetaminophen Hepatitis C Antibody 04/25/20 04/25/20 04/26/20 17:31 23:30 05:02 WBC RBC Hgb Hct RDW Plt Count Lymph % (Auto) [place] # (Auto) Seg Neutrophils % Seg Neuts % (Manual) Lymphocytes % (Manual) Monocytes % (Manual) Basophils % (Manual) Seg Neutrophils # Seg Neutrophils # Man Lymphocytes # (Manual) Monocytes # (Manual) Eosinophils # (Manual) Basophils # (Manual) D-Dimer ABG pH POC ABG pCO2 POC ABG pO2 ABG pO2 ABG HCO3 ABG Base Excess ABG Hemoglobin ABG Oxyhemoglobin ABG Sodium ABG Chloride ABG Glucose Oxyhemoglobin Sodium Potassium Chloride Carbon Dioxide BUN Creatinine Glucose POC Glucose 294 H 296 H 280 H Lactic Acid Calcium Magnesium Ferritin Alkaline Phosphatase Lactate Dehydrogenase Total Creatine Kinase Troponin T C-Reactive Protein Albumin Triglycerides Cholesterol HDL Cholesterol Arterial Blood Glucose Arterial Blood Ionized Calcium Urine WBC (Auto) Salicylates Acetaminophen Hepatitis C Antibody 04/26/20 04/26/20 04/26/20 11:50 13:30 14:26 WBC RBC Hgb Hct RDW Plt Count Lymph % (Auto) [place] # (Auto) Seg Neutrophils % Seg Neuts % (Manual) Lymphocytes % (Manual) Monocytes % (Manual) Basophils % (Manual) Seg Neutrophils # Seg Neutrophils # Man Lymphocytes # (Manual) Monocytes # (Manual) Eosinophils # (Manual) Basophils # (Manual) D-Dimer ABG pH POC ABG pCO2 POC ABG pO2 66.4 L ABG pO2 ABG HCO3 ABG Base Excess ABG Hemoglobin ABG Oxyhemoglobin ABG Sodium ABG Chloride ABG Glucose 344 H Oxyhemoglobin Sodium Potassium Chloride Carbon Dioxide BUN Creatinine Glucose POC Glucose 262 H Lactic Acid 2.30 H* Calcium Magnesium Ferritin Alkaline Phosphatase Lactate Dehydrogenase Total Creatine Kinase Troponin T C-Reactive Protein Albumin Triglycerides Cholesterol HDL Cholesterol Arterial Blood Glucose 344 H Arterial Blood Ionized Calcium Urine WBC (Auto) Salicylates Acetaminophen Hepatitis C Antibody 04/26/20 04/26/20 04/26/20 14:26 14:26 17:10 WBC 33.9 H RBC Hgb Hct RDW 15.5 H Plt Count Lymph % (Auto) [place] # (Auto) Seg Neutrophils % Seg Neuts % (Manual) 84.0 H Lymphocytes % (Manual) 7.0 L Monocytes % (Manual) 8.0 H Basophils % (Manual) Seg Neutrophils # Seg Neutrophils # Man 28.5 H Lymphocytes # (Manual) Monocytes # (Manual) 2.7 H Eosinophils # (Manual) Basophils # (Manual) D-Dimer ABG pH POC ABG pCO2 POC ABG pO2 ABG pO2 ABG HCO3 ABG Base Excess ABG Hemoglobin ABG Oxyhemoglobin ABG Sodium ABG Chloride ABG Glucose Oxyhemoglobin Sodium 135 L Potassium Chloride Carbon Dioxide 18 L D BUN 27 H Creatinine 3.3 H Glucose 316 H POC Glucose 238 H Lactic Acid Calcium Magnesium Ferritin Alkaline Phosphatase Lactate Dehydrogenase Total Creatine Kinase Troponin T C-Reactive Protein Albumin Triglycerides Cholesterol HDL Cholesterol Arterial Blood Glucose Arterial Blood Ionized Calcium Urine WBC (Auto) Salicylates Acetaminophen Hepatitis C Antibody 04/26/20 04/27/20 04/27/20 23:00 04:46 05:11 WBC RBC Hgb Hct RDW Plt Count Lymph % (Auto) [place] # (Auto) Seg Neutrophils % Seg Neuts % (Manual) Lymphocytes % (Manual) Monocytes % (Manual) Basophils % (Manual) Seg Neutrophils # Seg Neutrophils # Man Lymphocytes # (Manual) Monocytes # (Manual) Eosinophils # (Manual) Basophils # (Manual) D-Dimer ABG pH 7.461 H POC ABG pCO2 POC ABG pO2 68.8 L ABG pO2 ABG HCO3 ABG Base Excess ABG Hemoglobin 11.2 L ABG Oxyhemoglobin ABG Sodium 135.0 L ABG Chloride ABG Glucose 276 H Oxyhemoglobin Sodium Potassium Chloride Carbon Dioxide BUN Creatinine Glucose POC Glucose 168 H 247 H Lactic Acid Calcium Magnesium Ferritin Alkaline Phosphatase Lactate Dehydrogenase Total Creatine Kinase Troponin T C-Reactive Protein Albumin Triglycerides Cholesterol HDL Cholesterol Arterial Blood Glucose 276 H Arterial Blood Ionized Calcium Urine WBC (Auto) Salicylates Acetaminophen Hepatitis C Antibody 04/27/20 04/27/20 04/27/20 13:01 16:59 23:00 WBC RBC Hgb Hct RDW Plt Count Lymph % (Auto) [place] # (Auto) Seg Neutrophils % Seg Neuts % (Manual) Lymphocytes % (Manual) Monocytes % (Manual) Basophils % (Manual) Seg Neutrophils # Seg Neutrophils # Man Lymphocytes # (Manual) Monocytes # (Manual) Eosinophils # (Manual) Basophils # (Manual) D-Dimer ABG pH POC ABG pCO2 POC ABG pO2 ABG pO2 ABG HCO3 ABG Base Excess ABG Hemoglobin ABG Oxyhemoglobin ABG Sodium ABG Chloride ABG Glucose Oxyhemoglobin Sodium Potassium Chloride Carbon Dioxide BUN Creatinine Glucose POC Glucose 304 H 362 H 328 H Lactic Acid Calcium Magnesium Ferritin Alkaline Phosphatase Lactate Dehydrogenase Total Creatine Kinase Troponin T C-Reactive Protein Albumin Triglycerides Cholesterol HDL Cholesterol Arterial Blood Glucose Arterial Blood Ionized Calcium Urine WBC (Auto) Salicylates Acetaminophen Hepatitis C Antibody 04/28/20 04/28/20 04/28/20 04:12 04:54 05:52 WBC 35.7 H RBC Hgb Hct RDW 16.0 H Plt Count Lymph % (Auto) 10.9 L [place] # (Auto) 2.1 H Seg Neutrophils % 81.9 H Seg Neuts % (Manual) Lymphocytes % (Manual) Monocytes % (Manual) Basophils % (Manual) Seg Neutrophils # 29.2 H Seg Neutrophils # Man Lymphocytes # (Manual) Monocytes # (Manual) Eosinophils # (Manual) Basophils # (Manual) D-Dimer ABG pH POC ABG pCO2 POC ABG pO2 ABG pO2 ABG HCO3 ABG Base Excess ABG Hemoglobin 10.7 L ABG Oxyhemoglobin ABG Sodium 133.2 L ABG Chloride ABG Glucose 322 H Oxyhemoglobin Sodium Potassium Chloride Carbon Dioxide BUN Creatinine Glucose POC Glucose 315 H Lactic Acid Calcium Magnesium Ferritin Alkaline Phosphatase Lactate Dehydrogenase Total Creatine Kinase Troponin T C-Reactive Protein Albumin Triglycerides Cholesterol HDL Cholesterol Arterial Blood Glucose 322 H Arterial Blood Ionized Calcium Urine WBC (Auto) Salicylates Acetaminophen Hepatitis C Antibody 04/28/20 04/28/20 04/28/20 05:52 11:47 18:30 WBC RBC Hgb Hct RDW Plt Count Lymph % (Auto) [place] # (Auto) Seg Neutrophils % Seg Neuts % (Manual) Lymphocytes % (Manual) Monocytes % (Manual) Basophils % (Manual) Seg Neutrophils # Seg Neutrophils # Man Lymphocytes # (Manual) Monocytes # (Manual) Eosinophils # (Manual) Basophils # (Manual) D-Dimer ABG pH POC ABG pCO2 POC ABG pO2 ABG pO2 ABG HCO3 ABG Base Excess ABG Hemoglobin ABG Oxyhemoglobin ABG Sodium ABG Chloride ABG Glucose Oxyhemoglobin Sodium 134 L Potassium Chloride 96.4 L Carbon Dioxide 20 L BUN 62 H Creatinine 5.1 H D Glucose 371 H POC Glucose 352 H 427 H Lactic Acid Calcium Magnesium Ferritin Alkaline Phosphatase 260 H Lactate Dehydrogenase Total Creatine Kinase Troponin T C-Reactive Protein Albumin 3.0 L Triglycerides Cholesterol HDL Cholesterol Arterial Blood Glucose Arterial Blood Ionized Calcium Urine WBC (Auto) Salicylates Acetaminophen Hepatitis C Antibody 04/28/20 04/29/20 04/29/20 23:11 03:45 04:17 WBC 45.0 H* RBC 3.63 L Hgb Hct RDW 15.9 H Plt Count Lymph % (Auto) [place] # (Auto) Seg Neutrophils % Seg Neuts % (Manual) 85.0 H Lymphocytes % (Manual) 6.0 L Monocytes % (Manual) Basophils % (Manual) Seg Neutrophils # Seg Neutrophils # Man 38.3 H Lymphocytes # (Manual) Monocytes # (Manual) 1.8 H Eosinophils # (Manual) 1.8 H Basophils # (Manual) D-Dimer ABG pH POC ABG pCO2 30.8 L POC ABG pO2 42.2 L ABG pO2 ABG HCO3 ABG Base Excess ABG Hemoglobin 10.8 L ABG Oxyhemoglobin 80.5 L ABG Sodium 131.1 L ABG Chloride ABG Glucose 450 H Oxyhemoglobin Sodium Potassium Chloride Carbon Dioxide BUN Creatinine Glucose POC Glucose 345 H Lactic Acid Calcium Magnesium Ferritin Alkaline Phosphatase Lactate Dehydrogenase Total Creatine Kinase Troponin T C-Reactive Protein Albumin Triglycerides Cholesterol HDL Cholesterol Arterial Blood Glucose 450 H Arterial Blood Ionized Calcium Urine WBC (Auto) Salicylates Acetaminophen Hepatitis C Antibody 04/29/20 04/29/20 04/29/20 04:17 05:02 12:20 WBC RBC Hgb Hct RDW Plt Count Lymph % (Auto) [place] # (Auto) Seg Neutrophils % Seg Neuts % (Manual) Lymphocytes % (Manual) Monocytes % (Manual) Basophils % (Manual) Seg Neutrophils # Seg Neutrophils # Man Lymphocytes # (Manual) Monocytes # (Manual) Eosinophils # (Manual) Basophils # (Manual) D-Dimer ABG pH POC ABG pCO2 POC ABG pO2 ABG pO2 ABG HCO3 ABG Base Excess ABG Hemoglobin ABG Oxyhemoglobin ABG Sodium ABG Chloride ABG Glucose Oxyhemoglobin Sodium 132 L Potassium Chloride 93.8 L Carbon Dioxide 19 L BUN 70 H Creatinine 5.3 H Glucose 396 H POC Glucose 382 H 425 H Lactic Acid Calcium Magnesium Ferritin Alkaline Phosphatase 291 H Lactate Dehydrogenase Total Creatine Kinase Troponin T C-Reactive Protein Albumin 3.2 L Triglycerides Cholesterol HDL Cholesterol Arterial Blood Glucose Arterial Blood Ionized Calcium Urine WBC (Auto) Salicylates Acetaminophen Hepatitis C Antibody Allied health notes reviewed: nursing
--- NOTE | 2020-04-29 16:51 | XRay Report ---
CHEST 1 VIEW 4:29 PM INDICATION / CLINICAL INFORMATION: Respiratory distress and change in status. COMPARISON: Yesterday. FINDINGS: SUPPORT DEVICES: The positions of the endotracheal tube, nasogastric tube and right jugular CVL have not changed. HEART / MEDIASTINUM: Unchanged. LUNGS / PLEURA: Patchy parenchymal disease in the right lower lung appears mildly increased. The left lung is clear. No pleural effusion. No pneumothorax. ADDITIONAL FINDINGS: No significant additional findings. IMPRESSION:Patchy parenchymal disease in the right lower lung appears mildly increased. Signer Name: Newton Hogue MD Signed: 04/29/2020 4:46 PM Workstation Name: [id number]
[2020-04-29] MEDS ORDERED: HYDROCORTISONE SOD SUCC 100 MG/2 ML VIAL IV SCH (17:00)
[2020-04-29] MEDS ORDERED: NORepinephrine/NS 4 MG-250 ML 4 MG/250 ML BAG IV SCH (17:00)
[2020-04-29 17:03] VITALS: BP 78/51
--- NOTE | 2020-04-29 18:11 | Event Note ---
Date: 04/29/20 Patient is DNR Patient at 1743 hrs. Cause of --cardiorespiratory failure Acute encephalopathy. Bibasilar atelectasis. End-stage renal disease, on dialysis. History of coronavirus-19 infection. Peripheral arterial disease with bilateral BKA
== END 2020-04-29 21:00 | DRG 870 ==
LOC: ED 13:05 → CC1 16:32 → 4A 04-20 16:45 → CC1 04-26 12:27
PROVIDERS: ADMIT Internal Medicine; ATTEND Internal Medicine
PROC: 5A1955Z Respiratory Ventilation, Greater than 96 Consecutive Hours (ICD-10-PCS; principal; 2020-04-06)
PROC: 0BH17EZ Insertion of Endotracheal Airway into Trachea, Via Natural or Artificial Opening (ICD-10-PCS; 2020-04-06)
PROC: 5A1D70Z Performance of Urinary Filtration, Intermittent, Less than 6 Hours Per Day (ICD-10-PCS; 2020-04-07)
PROC: 4A033R1 Measurement of Arterial Saturation, Peripheral, Percutaneous Approach (ICD-10-PCS; 2020-04-18)
PROC: 5A1D70Z Performance of Urinary Filtration, Intermittent, Less than 6 Hours Per Day (ICD-10-PCS; 2020-04-24)
PROC: 5A1D70Z Performance of Urinary Filtration, Intermittent, Less than 6 Hours Per Day (ICD-10-PCS; 2020-04-26)
PROC: 5A1D70Z Performance of Urinary Filtration, Intermittent, Less than 6 Hours Per Day (ICD-10-PCS; 2020-04-28)
DX: A41.1 Sepsis due to other specified staphylococcus (principal); G92 Toxic encephalopathy; N18.6 End stage renal disease; R65.21 Severe sepsis with septic shock; J18.9 Pneumonia, unspecified organism; J96.21 Acute and chronic respiratory failure with hypoxia; J96.22 Acute and chronic respiratory failure with hypercapnia; N39.0 Urinary tract infection, site not specified; I16.1 Hypertensive emergency; E87.2 Acidosis; I12.0 Hypertensive chronic kidney disease with stage 5 chronic kidney disease or end stage renal disease; E66.2 Morbid (severe) obesity with alveolar hypoventilation; Z66 Do not resuscitate; E87.5 Hyperkalemia; Z20.828 Contact with and (suspected) exposure to other viral communicable diseases; E11.22 Type 2 diabetes mellitus with diabetic chronic kidney disease; J44.9 Chronic obstructive pulmonary disease, unspecified; J45.909 Unspecified asthma, uncomplicated; Z86.73 Personal history of transient ischemic attack (TIA), and cerebral infarction without residual deficits; Z87.891 Personal history of nicotine dependence; Z88.1 Allergy status to other antibiotic agents; Z91.040 Latex allergy status; Z91.018 Allergy to other foods; Z79.4 Long term (current) use of insulin; Z99.2 Dependence on renal dialysis; F31.9 Bipolar disorder, unspecified; Z82.49 Family history of ischemic heart disease and other diseases of the circulatory system; B37.3 Candidiasis of vulva and vagina; Z68.35 Body mass index [BMI] 35.0-35.9, adult; E21.3 Hyperparathyroidism, unspecified; B18.2 Chronic viral hepatitis C; D72.829 Elevated white blood cell count, unspecified; I46.9 Cardiac arrest, cause unspecified; Z89.512 Acquired absence of left leg below knee; Z89.511 Acquired absence of right leg below knee; E11.51 Type 2 diabetes mellitus with diabetic peripheral angiopathy without gangrene; E11.43 Type 2 diabetes mellitus with diabetic autonomic (poly)neuropathy; K31.84 Gastroparesis; D63.1 Anemia in chronic kidney disease
CPT/HCPCS: 31500; 36415; 36600; 70450; 71045; 74018; 74176; 74230; 80048; 80053; 80061; 80074; 80076; 80320; 81001; 82140; 82533; 82550; 82728; 82803; 82805; 82962; 83615; 83735; 84100; 84145; 84443; 84484; 84703; 85007; 85014; 85018; 85025; 85027; 85379; 85610; 85730; 86140; 86850; 86900; 86901; 87040; 87070; 87086; 87205; 87517; 93005; 93970; 94002; 94003; 94640; 94660; 94760; 95819; 96365; 96375; G0378; G0480; J0133; J0330; J0692; J0696; J0878; J1170; J1450; J1644; J1815; J1885; J2020; J2060; J2185; J2250; J2405; J2704; J2765; J3010; J7030; J7040; J7042; J7050; P9047; U0003